=== PATIENT | female | born 1940 | race Caucasian/White ===

== ENCOUNTER 2023-04-25 12:28 | Outpatient (OUT) | payer MEDICARE, SELFPAY ==
[2023-04-25 12:56] LABS: INR 1.74; Prothrombin Time 17.9 sec (9.0-11.6)
== END 2023-04-25 12:29 ==
LOC: LAB 12:33
PROVIDERS: PCP Family Medicine; Visit Provider Family Medicine
DX: I48.91 Unspecified atrial fibrillation (principal)
CPT/HCPCS: 36415; 85610

== ENCOUNTER 2023-06-25 12:11 | Outpatient (OUT) | payer MEDICARE, SELFPAY ==
[2023-06-25 13:23] LABS: INR 1.93; Prothrombin Time 19.7 sec (9.0-11.6)
== END 2023-06-25 12:12 | disposition home or self-care (01) ==
LOC: LAB 12:16
PROVIDERS: PCP Family Medicine; Visit Provider Family Medicine
DX: I48.91 Unspecified atrial fibrillation (principal)
CPT/HCPCS: 36415; 85610

== ENCOUNTER 2023-07-25 10:02 | Outpatient (OUT) | payer MEDICARE, SELFPAY ==
[2023-07-25 11:26] LABS: INR 2.15; Prothrombin Time 21.8 sec (9.0-11.6)
== END 2023-07-25 10:03 | disposition home or self-care (01) ==
LOC: LAB 10:02
PROVIDERS: PCP Family Medicine; Visit Provider Family Medicine
DX: I48.91 Unspecified atrial fibrillation (principal)
CPT/HCPCS: 36415; 85610

== ENCOUNTER 2023-07-25 10:04 | Outpatient (OUT) | payer MEDICARE, SELFPAY ==
--- NOTE | 2023-07-25 11:09 | CA_ITS ---
Patient: FABY JUAREZ Exam Date: 07/25/2023 : 1940 Gender:F Ordering : DR JENN PRADO M.D. Admission #: [id number] Family : Order #: [id number] CLICK HERE TO VIEW EXAM ECHOCARDIOGRAM REPORT PROCEDURE: CA ECHO DOPPLER COMPLETE INDICATIONS: Pulmonary hypertension, hypertention COMPARISON: None. DESCRIPTION: COMPLETE ECHOCARDIOGRAM Real-time transthoracic echocardiography with 2D, M-mode, spectral and color flow Doppler performed. QUALITY: Technical quality was good. LEFT VENTRICLE: Normal chamber size. Thickened septal wall. D-shaped septum consistent with right ventricular pressure and/or volume overload. LV EF: Normal left ventricular ejection fraction, (>55%). DIASTOLIC: Grade III diastolic dysfunction. ATRIAL SEPTUM: Inadequately seen. LEFT ATRIUM: Severe dilatation. RIGHT ATRIUM: Severe dilatation. RIGHT VENTRICLE: Normal chamber size. Right ventricular systolic function is reduced. TRICUSPID VALVE: Normal mobility and thickness. Moderate regurgitation. Doppler studies reveal severely (>60) elevated right sided pressures. RVSP 91 mmHg MITRAL VALVE: Mildly thickened with normal mobility. No evidence of mitral valve stenosis. There is no mitral annular calcification. Mild mitral regurgitation. AORTIC VALVE: Normal trileaflet appearance. Moderately calcified aortic valve. Mildly diminished mobility. Doppler velocity suggests mild aortic valve stenosis. DVI 0.5. No aortic regurgitation. AORTIC ROOT: Normal diameter and appearance. PULMONIC VALVE: Normal thickness and mobility. No stenosis. Mild regurgitation. PERICARDIUM: No evidence of pericardial effusion. IVC: Collapses with inspirations. IVC is dilated (2.3 cm) CONCLUSION: 1. Global left ventricular systolic function is normal; visually estimated ejection fraction is 55 to 60% 2. Abnormal septal motion consistent with right ventricular pressure and/or volume overload 3. Grade 3, severe diastolic dysfunction 4. Severe biatrial enlargement 5. The right ventricle is normal in size with reduced systolic function 6. Moderate tricuspid regurgitation 7. Severely elevated right-sided pressures; RVSP is 91 mmHg 8. Mild mitral regurgitation 9. Mild aortic valve stenosis 10. Mild pulmonic regurgitation Adult Echocardiography Procedure Report Left Ventricle LVEDD (3.7 - 5.6 cm): 4.50 cm LVESD (2.2 - 4.0 cm): 3.04 cm LVIVS thickness (0.6 - 1.2 cm): 1.07 cm LVPW thickness (0.5 - 1.0 cm): 0.72 cm e': 0.12 m/s E - e': 9.60 LVOT Max Gradient: 4.18 mm[Hg] LVOT Area (cm2): 1.02 m/s Peak Velocity (LVOT): 1.02 m/s Mean Velocity (LVOT): 0.71 m/s LVOT Diameter 1.60 cm Left Atrium LA Volume Index (2D A2C): 58.47 ml/m2 Left Atrium Systolic Dimension: 5.06 cm Mitral Valve MV E to A Ratio: 2.30 Mitral Valve A-Wave Peak Velocity: 0.52 m/s Mitral Valve E-Wave Peak Velocity: 1.19 m/s Right Ventricle Aorta AO Root Diam: 2.91 cm Aortic Valve AoV Area (Peak Mark): 1.01 cm2, 1.01 cm2 AoV Area (VTI): 1.04 cm2, 1.04 cm2 Peak Velocity(Antegrade Flow): 2.03 m/s Peak Gradient(Antegrade Flow): 16.48 mm[Hg] Mean Velocity(Antegrade Flow): 1.46 m/s Mean Gradient(Antegrade Flow): 9.51 mm[Hg] Velocity Time Integral: 46.81 cm Tricuspid Valve Peak Velocity (Regurgitant Flow): 4.55 m/s, 4.15 m/s Pulmonic Valve Peak Velocity: 1.01 m/s Peak Gradient: 4.35 mm[Hg], 3.84 mm[Hg] Right Atrium Right Atrium Systolic Pressure: 72.57 ml, 72.57 ml Dictated by: Jr Montaño M.D. on 07/25/2023 at 13:09 Approved by: Jr Montaño M.D. on 07/25/2023 at 13:15
== END 2023-07-25 10:05 | disposition home or self-care (01) ==
LOC: CARD 10:04
PROVIDERS: PCP Family Medicine; Visit Provider Internal Medicine Interventional Cardiology
DX: I27.20 Pulmonary hypertension, unspecified (principal); I08.3 Combined rheumatic disorders of mitral, aortic and tricuspid valves
CPT/HCPCS: 93306

== ENCOUNTER 2023-08-28 12:24 | Outpatient (OUT) | payer MEDICARE, SELFPAY ==
[2023-08-28 12:52] LABS: INR 3.84; Prothrombin Time 37.7 sec (9.0-11.6)
== END 2023-08-28 12:25 | disposition home or self-care (01) ==
LOC: LAB 12:24
PROVIDERS: PCP Family Medicine; Visit Provider Family Medicine
DX: I48.91 Unspecified atrial fibrillation (principal)
CPT/HCPCS: 36415; 85610

== ENCOUNTER 2023-09-03 12:53 | Outpatient (OUT) | payer MEDICARE, SELFPAY ==
[2023-09-03 13:33] LABS: INR 2.11; Prothrombin Time 21.4 sec (9.0-11.6)
== END 2023-09-03 12:54 | disposition home or self-care (01) ==
PROVIDERS: PCP Family Medicine; Visit Provider Family Medicine
DX: I48.91 Unspecified atrial fibrillation (principal)
CPT/HCPCS: 36415; 85610

== ENCOUNTER 2023-10-10 13:01 | Outpatient (OUT) | payer MEDICARE, SELFPAY ==
[2023-10-10 13:15] LABS: Basophils Absolute Auto 0.1 10^3/uL (0.0-0.1); Basophils Percent Auto 0.8 % (0.2-2.0); Eosinophils Absolute Auto 0.4 10^3/uL (0.0-0.7); Eosinophils Percent Auto 5.7 % (0.9-7.0); Hematocrit 32.3 % (36.0-48.0); Hemoglobin 9.7 g/dL (12.0-16.0); Immature Granulocytes Abs Auto 0.02 10^3/uL (0.00-0.03); Immature Granulocytes Pct Auto 0.3 % (0.0-0.5); Lymphocytes Absolute Auto 1.6 10^3/uL (1.2-3.8); Lymphocytes Percent Auto 21.6 % (20.5-60.0); Mean Corpuscular Hemoglobin 24.5 pg (26.7-34.0); Mean Corpuscular Volume 81.6 fL (81.0-99.0); Mean Platelet Volume 8.4 fL (9.5-13.5); Monocytes Absolute Auto 0.7 10^3/uL (0.3-0.8); Monocytes Percent Auto 9.6 % (1.7-12.0); Neutrophils Absolute Auto 4.5 10^3/uL (1.4-6.5); Platelet Count 265 10^3/uL (150-450); Red Blood Count 3.96 10^6/uL (4.20-5.40); Red Cell Distribution Width 18.9 % (11.0-15.0); White Blood Count 7.2 10^3/uL (4.0-11.0)
[2023-10-10 13:32] LABS: Anion Gap 12.9; BUN Creatinine Ratio 12.4; Carbon Dioxide 28.1 mmol/L (21.0-32.0); Chloride 104 mmol/L (98-107); Estimated GFR (African America 31 (>=60); Estimated GFR (Non-African Ame 26 (>=60); Glucose 91 mg/dL (74-106); Sodium 141 mmol/L (136-145)
== END 2023-10-10 13:02 | disposition home or self-care (01) ==
LOC: LAB 13:02
PROVIDERS: PCP Family Medicine; Visit Provider Internal Medicine Interventional Cardiology
DX: Z01.818 Encounter for other preprocedural examination (principal); I48.91 Unspecified atrial fibrillation
CPT/HCPCS: 36415; 80048; 85025

== ENCOUNTER 2023-10-29 13:40 | Outpatient (OUT) | payer MEDICARE, SELFPAY ==
[2023-10-29 13:57] LABS: Basophils Absolute Auto 0.1 10^3/uL (0.0-0.1); Basophils Percent Auto 0.6 % (0.2-2.0); Eosinophils Absolute Auto 0.3 10^3/uL (0.0-0.7); Eosinophils Percent Auto 4.4 % (0.9-7.0); Hematocrit 33.8 % (36.0-48.0); Hemoglobin 10.1 g/dL (12.0-16.0); Immature Granulocytes Abs Auto 0.03 10^3/uL (0.00-0.03); Immature Granulocytes Pct Auto 0.4 % (0.0-0.5); Lymphocytes Absolute Auto 1.7 10^3/uL (1.2-3.8); Lymphocytes Percent Auto 21.5 % (20.5-60.0); Mean Corpuscular HGB Conc 29.9 g/dL (29.9-35.2); Mean Corpuscular Hemoglobin 24.6 pg (26.7-34.0); Mean Corpuscular Volume 82.2 fL (81.0-99.0); Mean Platelet Volume 8.6 fL (9.5-13.5); Monocytes Absolute Auto 0.8 10^3/uL (0.3-0.8); Monocytes Percent Auto 9.8 % (1.7-12.0); Neutrophils Absolute Auto 4.9 10^3/uL (1.4-6.5); Neutrophils Percent Auto 63.3 % (43.0-75.0); Platelet Count 248 10^3/uL (150-450); Red Blood Count 4.11 10^6/uL (4.20-5.40); Red Cell Distribution Width 18.6 % (11.0-15.0); White Blood Count 7.8 10^3/uL (4.0-11.0)
[2023-10-29 14:43] LABS: Anion Gap 12.8; BUN Creatinine Ratio 16.7; Calcium 9.1 mg/dL (8.5-10.1); Carbon Dioxide 28.8 mmol/L (21.0-32.0); Chloride 101 mmol/L (98-107); Estimated GFR (African America 29 (>=60); Estimated GFR (Non-African Ame 24 (>=60); Glucose 97 mg/dL (74-106); Potassium 3.6 mmol/L (3.5-5.1); Sodium 139 mmol/L (136-145)
== END 2023-10-29 13:41 | disposition home or self-care (01) ==
LOC: LAB 13:41
PROVIDERS: PCP Family Medicine
DX: I27.20 Pulmonary hypertension, unspecified (principal); I48.11 Longstanding persistent atrial fibrillation; I11.0 Hypertensive heart disease with heart failure
CPT/HCPCS: 36415; 80048; 83880; 85025

== ENCOUNTER 2023-12-05 13:59 | Outpatient (OUT) | payer MEDICARE, SELFPAY ==
--- OUTSIDE RECORDS SUMMARY | 2023-12-05 14:03 | XMS_ITS | CCD ---
Author Name Unknown Address [address] [place] [address] Organization [facility] Care Team Providers Care Animal Researcher Name Role Phone UNKNOWN, PROVIDER Attending Unavailable HOY, BRUCE Primary Care Unavailable HOY, BRUCE Referring Unavailable UNKNOWN, PROVIDER Admitting Unavailable UNKNOWN, PROVIDER Attending Unavailable HOY, BRUCE Primary Care Unavailable HOY, BRUCE Referring Unavailable UNKNOWN, PROVIDER Admitting Unavailable HOY ., DR BARRERA Consulting Unavailable HOY ., DR BARRERA Primary Care Unavailable HOY ., DR BARRERA Attending Unavailable HOY ., DR BARRERA Admitting Unavailable MOUKARBEL, DR BARAJAS Consulting Unavailable RICHMONDSIGRID RAMIREZ Consulting Unavailable HOY ., DR BARRERA Primary Care Unavailable HOY ., DR BARRERA Attending Unavailable HOY ., DR BARRERA Admitting Unavailable HOY ., DR BARRERA Consulting Unavailable HOY ., DR BARRERA Primary Care Unavailable HOY ., DR BARRERA Attending Unavailable HOY ., DR BARRERA Admitting Unavailable HOY ., DR BARRERA Consulting Unavailable HOY ., DR BARRERA Primary Care Unavailable HOY ., DR BARRERA Attending Unavailable HOY ., DR BARRERA Admitting Unavailable HOY ., DR BARRERA Consulting Unavailable HOY ., DR BARRERA Primary Care Unavailable HOY ., DR BARRERA Attending Unavailable HOY ., DR BARRERA Admitting Unavailable HOY ., DR BARRERA Consulting Unavailable HOY ., DR BARRERA Primary Care Unavailable HOY ., DR BARRERA Attending Unavailable HOY ., DR BARRERA Admitting Unavailable HOY ., DR BARRERA Consulting Unavailable HOY ., DR BARRERA Primary Care Unavailable HOY ., DR BARRERA Attending Unavailable HOY ., DR BARRERA Admcrow Unavailable MOUKARBEL, DR BARAJAS Consulting Unavailable HOY ., DR BARRERA Primary Care Unavailable MOUKARBEL, DR BARAJAS Attending Unavailable MOUKARBEL, DR BARAJAS Admitting Unavailable MOUKARBEL, DR BARAJAS Consulting Unavailable HOY ., DR BARRERA Primary Care Unavailable MOUKARBEL, DR BARAJAS Attending Unavailable MOUKARBEL, DR BARAJAS Admitting Unavailable HOY ., DR BARRERA Consulting Unavailable HOY ., DR BARRERA Primary Care Unavailable HOY ., DR BARRERA Attending Unavailable HOY ., DR BARRERA Admitting Unavailable MOUKARBEL, DR BARAJAS Consulting Unavailable HOY ., DR BARRERA Primary Care Unavailable MOUKARBEL, DR BARAJAS Attending Unavailable MOUKARBEL, DR BARAJAS Admitting Unavailable HOY ., DR BARRERA Consulting Unavailable HOY ., DR BARRERA Primary Care Unavailable HOY ., DR BARRERA Attending Unavailable HOY ., DR BARRERA Admitting Unavailable HOY ., DR BARRERA Consulting Unavailable HOY ., DR BARRERA Primary Care Unavailable HOY ., DR BARRERA Attending Unavailable HOY ., DR BARRERA Admitting Unavailable HOY ., DR BARRERA Consulting Unavailable HOY ., DR BARRERA Primary Care Unavailable HOY ., DR BARRERA Attending Unavailable HOY ., DR BARRERA Admitting Unavailable MOUKARBEL, DR BARAJAS Consulting Unavailable HOY ., DR BARRERA Primary Care Unavailable MOUKARBEL, DR BARAJAS Attending Unavailable MOUKARBEL, DR BARAJAS Admitting Unavailable MOUKARBEL, DR BARAJAS Consulting Unavailable HOY ., DR BARRERA Primary Care Unavailable MOUKARBEL, DR BARAJAS Attending Unavailable MOUKARBEL, DR BARAJAS Admitting Unavailable HOY ., DR BARRERA Consulting Unavailable HOY ., DR BARRERA Primary Care Unavailable HOY ., DR BARRERA Attending Unavailable HOY ., DR BARRERA Admcrow Unavailable HOY ., DR BARRERA Consulting Unavailable HOY ., DR BARRERA Primary Care Unavailable HOY ., DR BARRERA Attending Unavailable HOY ., DR BARRERA Admitting Unavailable HOY ., DR BARRERA Consulting Unavailable HOY ., DR BARRERA Primary Care Unavailable HOY ., DR BARRERA Attending Unavailable HOY ., DR BARRERA Admitting Unavailable SMITHANTONY Admitting Unavailable SMITHANTONY Attending Unavailable MOUKARBEL, JENN Attending Unavailable MOUKARBEL, JENN Attending Unavailable Problems Active Problems Problem Classification Problem Date Documented Da te Episodic/Chronic Cardiac dysrhythmias (5 sources) Unspecified atrial fibrillation; Translations: [UNSPECIFIED ATRIAL FIBRILLATION] Onset: 07-13-2022 Chronic Chronic kidney disease (2 sources) Chronic kidney disease; Translations: [Chronic kidney disease, stage 3b] Onset: 10-25-2022 Congestive heart failure; nonhypertensive (9 sources) Chronic diastolic (congestive) heart failure; Translations: [Acute on chronic diastolic (congestive) heart failure] Onset: 07-13-2022 Chronic Disorders of lipid metabolism (1 source) Hyperlipidemia, unspecified; Translations: [HYPERLIPIDEMIA UNSPECIFIED] Onset: 2022 Chronic Essential hypertension (2 sources) Essential (primary) hypertension; Translations: [Essential (primary) hypertension] Onset: 08-15-2022 Chronic Genitourinary congenital anomalies (1 source) Congenital multiple renal cysts; Translations: [CONGENITAL MULTIPLE RENAL CYSTS] Onset: 07-09-2022 Chronic Heart valve disorders (5 sources) Rheumatic disorders of both mitral and tricuspid valves; Translations: [Nonrheumatic mitral (valve) insufficiency] Onset: 05-09-2022 Chronic Hypertension with complications and secondary hypertension (1 source) Hypertensive heart disease with heart failure; Translations: [HTN HEART DISEASE W/HEART FAIL] Onset: 2022 Chronic Nephritis; nephrosis; renal sclerosis (1 source) Atrophy of kidney (terminal); 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] Onset: 07-09-2022 Chronic Nutritional deficiencies (1 source) Vitamin D deficiency, unspecified; Translations: [VITAMIN D DEFICIENCY UNSPECIFIED] Onset: 2022 Chronic Other and ill-defined heart disease (1 source) Cardiomegaly; Translations: [CARDIOMEGALY] Onset: 2022 Chronic Pulmonary heart disease (12 sources) Primary pulmonary hypertension; Translations: [Pulmonary hypertension, unspecified] Onset: 04-17-2022 Chronic Residual codes; unclassified (2 sources) Edema, unspecified; Translations: [Edema, unspecified] Onset: 10-22-2023 Episodic Unclassified (2 sources) Longstanding persistent atrial fibrillation; Translations: [Longstanding persistent atrial fibrillation] Onset: 08-15-2022 Past or Other Problems Problem Classification Problem Date Documented Da te Episodic/Chronic Calculus of urinary tract (1 source) Calculus of kidney; Translations: [CALCULUS OF KIDNEY] Onset: 07-09-2022 Episodic Cardiac dysrhythmias (1 source) Bradycardia, unspecified; Translations: [BRADYCARDIA UNSPECIFIED] Onset: 2022 Episodic Deficiency and other anemia (1 source) Anemia, unspecified; Translations: [ANEMIA UNSPECIFIED] Onset: 2022 Episodic Diabetes mellitus without complication (1 source) Other abnormal glucose; Translations: [OTHER ABNORMAL GLUCOSE] Onset: 2022 Episodic Malaise and fatigue (4 sources) Other fatigue; Translations: [OTHER FATIGUE] Onset: 04-16-2022 Episodic Other aftercare (4 sources) Other supervisor intermediates (current) drug therapy; Translations: [OTH RUG MEASURER CURRENT DRUG THERAPY] Onset: 06-04-2022 Episodic Other injuries and conditions due to external causes (1 source) History of falling; Translations: [HISTORY OF FALLING] Onset: 2022 Episodic Other lower respiratory disease (1 source) Shortness of breath; Translations: [SHORTNESS OF BREATH] Onset: 05-16-2022 Episodic Other screening for suspected conditions (not mental disorders or infectious disease) (5 sources) Abnormal results of kidney function studies; Translations: [Encounter for screening for malignant neoplasm of rectum] Onset: 04-17-2022 Episodic Results Test Name Value Interpretation Reference Range Facility Office Visiton 10-30-2023 Follow-up visit [id number] Inez Juarez 1940 F Date Provider Department Center 10/30/2023 JENN AMANDA BARBRA [facility] Family History Problem Relation Age of Onset Hypertension Mother Coronary artery disease Father Hypertension Father Family Status - Relation Status Age at Mother Father Level of Service:61728 [place] OFFICE/OUTPATIENT ESTABLISHED MOD MDM 30 MIN Normal [facility] HPon 10-22-2023 HP History Of Present Illness Inez Juarez is a 83 y.o. female presenting for planned RHC. diastolic heart failure, atrial fibrillation (on coumadin followed by Dr Rizvi's office) and pulmonary hypertension. She has CKD3. She was then seen in follow up in January 2021 and an echocardiogram in April 2021 showed severe pulmonary hypertension with the right-sided enlargement and ventricular dysfunction. Right heart catheterization on 06/02/2021 showed vasoreactive pulmonary hypertension. She was started on amlodipine 10 mg daily. A follow-up echocardiogram September 2021 showed severely elevated right-sided pressures. Right heart catheterization on 11/01/2021 showed moderate to severe pulmonary hypertension, normal filling pressures, preserved cardiopathy, index, significantly elevated transpulmonary gradient and pulmonary vascular resistance. TPG 28 mmHg, PVR 5.8 Wood units. PA 61/16 mean 36, pulmonary wedge pressure 8. She had a VQ scan that was negative. PFTs showed normal FEV1 over FVC, significantly reduced DLCO. At visit of 01/22/2022 I started her on sildenafil 20 mg 3 times daily. I reduced hydralazine to 25 mg 3 times daily. Blood testing was significant for elevated EVAN possibly attributed to hydralazine. Here today for further assessment with RHC. Past Medical History She has a past medical history of Atrial fibrillation (CMS/HCC), CHF (congestive heart failure) (CMS/[facility]), Chronic kidney disease, GERD (gastroesophageal reflux disease), Heart valve disease, Hyperlipidemia, Hypertension, and Pulmonary hypertension (CMS/HCC). Surgical History She has a past surgical history that includes Cardiac catheterization (Right, 11/01/2021); Cardioversion; Cardiac catheterization (Right, 06/02/2021); and Cardiac catheterization (08/23/2016). Social History She reports that she has never smoked. She has never used smokeless tobacco. She reports that she does not currently use alcohol. No history on file for drug use. Family History Family History Problem Relation Name Age of Onset Hypertension Mother Coronary artery disease Father Hypertension Father Allergies Patient has no known allergies. Medications Medications Prior to Admission Medication Sig Dispense Refill Last Dose albuterol 90 mcg/actuation inhaler 10/21/2023 alendronate (Fosamax) 70 mg tablet Take 1 tablet every week by oral route for 84 days. Past Week ALPRAZolam (Xanax) 0.25 mg tablet take 1 tablet by mouth once daily if needed 10/21/2023 amLODIPine (Norvasc) 10 mg tablet TAKE 1 TABLET DAILY 90 tablet 3 10/21/2023 aspirin 81 mg chewable tablet Chew 1 tablet every day by oral route. 10/21/2023 cholecalciferol, vitamin D3, 50 mcg (2,000 unit) capsule Take 1 capsule every day by oral route for 90 days. 10/21/2023 citalopram (CeleXA) 40 mg tablet Take 1 tablet every day by oral route for 90 days. 10/21/2023 furosemide (Lasix) 80 mg tablet TAKE 1 TABLET DAILY 90 tablet 3 10/21/2023 lansoprazole (Prevacid) [address] capsule Take 1 capsule every day by oral route for 90 days. 10/21/2023 metoprolol succinate XL (Toprol-XL) 25 mg 24 hr tablet TAKE ONE-HALF (1/2) TABLET DAILY 45 tablet 3 10/21/2023 potassium chloride CR (Klor-Con) 10 mEq ER tablet TAKE 1 TABLET BY MOUTH DAILY 90 tablet 3 10/21/2023 pravastatin (Pravachol) 20 mg tablet Take 1 tablet every day by oral route for 90 days. 10/21/2023 sacubitriL-valsartan (Entresto) 24-26 mg tablet Take 0.5 tablets by mouth in the morning and at bedtime. 10/21/2023 sildenafil (Revatio) 20 mg tablet Take 1 tablet 3 times a day by oral route for 90 days. 270 tablet 3 10/21/2023 warfarin (Coumadin) 5 mg tablet Past Week Review of Systems Cardiovascular: Positive for dyspnea on exertion and leg swelling. Negative for chest pain and palpitations Last Recorded Vitals Visit Vitals BP 160/65 Pulse 82 Resp 16 Wt 68.1 kg (150 lb 3.2 oz) SpO2 90% BMI 29.33 kg/m??? OB Status Postmenopausal Smoking Status Never BSA 1.7 m??? Physical Exam Constitutional: Appearance: She is well-developed. She is not ill-appearing. HENT: Head: Normocephalic and atraumatic. Nose: Nose normal. Cardiovascular: Rate and Rhythm: Normal rate. Rhythm irregularly irregular. Pulses: Radial pulses are 2+ on the right side and 2+ on the left side. Heart sounds: Murmur heard. Systolic (LLSB) murmur is present with a grade of 2/6. No friction rub. No gallop. Pulmonary: Effort: Pulmonary effort is normal. No respiratory distress. Breath sounds: Normal breath sounds. No wheezing or rales. Chest: Chest wall: No tenderness. Abdominal: General: Bowel sounds are normal. There is no distension. Palpations: Abdomen is soft. Tenderness: There is no abdominal tenderness. Musculoskeletal: General: No swelling. Cervical back: Neck supple. Right lower le+ Pitting Edema present. Left lower le+ Pitting Edema present. Relevant Lab Results Reviewed Relevant (more content not included)... Normal [facility] NURSNOTEon 10-22-2023 NURSNOTE RN educated pt on d/c instructions. RN encouraged pt to voice any questions or concerns. Pt verbalizes no questions or concerns at this time. Normal [facility] Office Visiton 05-20-2023 Follow-up visit [id number] Inez Juarez 1940 F Date Provider Department Center 05/20/2023 JENN AMANDA [facility] Family History Problem Relation Age of Onset Hypertension Mother Coronary artery disease Father Hypertension Father Family Status - Relation Status Age at Mother Father Level of Service:81073 [place] OFFICE/OUTPATIENT ESTABLISHED MOD MDM 30-39 MIN Reason for Visit and Comments: Shortness of Breath [425574] Fatigue [46] Follow-up [838176] Normal [facility] BNPon 03-22-2023 Natriuretic peptide B (Bld) [Mass/Vol] 1423.0 pg/mL Normal <=1,800.0 [facility] Comment on above: Performed By: #### B INTERNET MARKETING MANAGER, CMP, TSH, LIPID #### [facility] [address] [address] [address] Reji Thomas CBC AUTO DIFFon 03-22-2023 BASO # 0.1 103/ul Normal 0.0-0.1 [facility] Comment on above: Performed By: #### B MP #### [facility] [address] [address] [address] Rjei Thomas Basophils/100 WBC (Bld) 1.0 % Normal 0.2-2.0 [facility] Comment on above: Performed By: #### B MP #### [facility] [address] [address] [address] Reji Thomas EO # 0.2 103/ul Normal 0.0-0.7 [facility] Comment on above: Performed By: #### B MP #### [facility] [address] [address] [address] Reji Thomas Eosinophils/100 WBC (Bld) 3.3 % Normal 0.9-7.0 [facility] Comment on above: Performed By: #### B MP #### [facility] [address] [place] [address] Dr. Reji Thomas Erythrocyte distribution width (RBC) [Ratio] 15.4 % Critically high 11.0-15.0 [facility] Comment on above: Performed By: #### B MP #### [facility] [address] [place] [address] Dr. Reji Thomas Hematocrit (Bld) [Volume fraction] 35.2 % Critically low 36.0-48.0 [facility] Comment on above: Performed By: #### B MP #### [facility] [address] [place] [address] Dr. Reji Thomas Hemoglobin (Bld) [Mass/Vol] 11.4 g/dL Critically low 12.0-16.0 [facility] Comment on above: Performed By: #### B MP #### [facility] [address] [place] [address] Dr. Reji Thomas IG # 0.02 10e3/ul Normal 0.00-0.03 [facility] Comment on above: Performed By: #### B MP #### [facility] [address] [place] [address] Dr. Reji Thomas IG % 0.3 % Normal 0.0-0.5 [facility] Comment on above: Performed By: #### B MP #### [facility] [address] [place] [address] Dr. Reji Thomas LYMPH # 1.4 103/ul Normal 1.2-3.8 [facility] Comment on above: Performed By: #### B MP #### [facility] [address] [place] [address] Dr. Reji Thomas Lymphocytes/100 WBC (Bld) 22.6 % Normal 20.5-60.0 [facility] Comment on above: Performed By: #### B MP #### [facility] [address] [place] [address] Dr. Reji Thomas MANUAL DIFF REQ NO Normal [facility] Comment on above: Performed By: #### B MP #### [facility] [address] [place] [address] Dr. Reij Thomas MCH (RBC) [Entitic mass] 27.0 pg Normal 26.7-34.0 [facility] Comment on above: Performed By: #### B MP #### [facility] [address] [place] [address] Dr. Reji Thoams MCHC (RBC) [Mass/Vol] 32.4 g/dL Normal 29.9-35.2 [facility] Comment on above: Performed By: #### B MP #### [facility] [address] [place] [address] Dr. Reji Thomas MCV (RBC) [Entitic vol] 83.2 fL Normal 81.0-99.0 [facility] Comment on above: Performed By: #### B MP #### [facility] [address] [place] [address] Dr. Reji Thomas MONO # 0.5 103/ul Normal 0.3-0.8 [facility] Comment on above: Performed By: #### B MP #### [facility] [address] [place] [address] Dr. Reji Thomas Monocytes/100 WBC (Bld) 8.5 % Normal 1.7-12.0 [facility] Comment on above: Performed By: #### B MP #### [facility] [address] [place] [address] Dr. Reji Thomas NEUT # 4.0 103/ul Normal 1.4-6.5 [facility] Comment on above: Performed By: #### B MP #### [facility] [address] [place] [address] Dr. Reji Thomas Neutrophils/100 WBC (Bld) 64.3 % Normal 43.0-75.0 [facility] Comment on above: Performed By: #### B MP #### [facility] [address] [place] [address] Dr. Reji Thomas Platelet mean volume (Bld) [Entitic vol] 8.9 fL Critically low 9.5-13.5 [facility] Comment on above: Performed By: #### B MP #### [facility] [address] [address] [address] Reji Thomas PLT 226 103/ul Normal 150-450 [facility] Comment on above: Performed By: #### B MP #### [facility] [address] [place] [address] Dr. Reji Thomas RBC 4.23 106/ul Normal 4.20-5.40 [facility] Comment on above: Performed By: #### B MP #### [facility] [address] [place] [address] Dr. Reji Thomas WBC 6.3 103/ul Normal 4.0-11.0 [facility] Comment on above: Performed By: #### B MP #### [facility] [address] [place] [address] Dr. Reji Thomas FREE THYROXINE INDEX T7on FTI 2.40 Normal 1.30-4.50 [facility] Comment on above: Performed By: #### B INTERNET MARKETING MANAGER, CMP, TSH, LIPID #### [facility] [address] [place] [address] Dr. Reji Thomas T3U 32.0 % Normal 30.0-39.0 [facility] Comment on above: Performed By: #### B INTERNET MARKETING MANAGER, CMP, TSH, LIPID #### [facility] [address] [place] [address] Dr. Reji Thomas T4 [Mass/Vol] 7.50 ug/dL Normal 4.80-13.90 [facility] Comment on above: Performed By: #### B INTERNET MARKETING MANAGER, CMP, TSH, LIPID #### [facility] [address] [place] [address] Dr. Reji Thomas GLYCOHEMOGLOBIN A1Con 2022 ADA RECOMMENDATION SEE BELOW Normal [facility] Comment on above: Result Comment: ADA RECOMMENDED LIMIT 4.0 - 6.0 ADA THERAPEUTIC TARGET < 7.0 ACTION SUGGESTED > 7.0 Performed By: #### B INTERNET MARKETING MANAGER, CMP, TSH, LIPID #### [facility] [address] [place] [address] Dr. Reji Thomas Glucose [Mass/Vol] 97 mg/dL Normal [facility] Comment on above: Performed By: #### B INTERNET MARKETING MANAGER, CMP, TSH, LIPID #### [facility] [address] [address] [address] Reji Thomas HbA1c (Bld) [Mass fraction] 5.0 % Normal 4.5-6.2 [facility] Comment on above: Performed By: #### B INTERNET MARKETING MANAGER, CMP, TSH, LIPID #### [facility] [address] [address] [address] Reji Thomas IRONon 03-22-2023 Iron [Mass/Vol] 47.0 ug/dL Critically low 50.0-170.0 [facility] Comment on above: Performed By: #### B INTERNET MARKETING MANAGER, CMP, TSH, LIPID #### [facility] [address] [place] [address] Dr. Reji Thomas LIPID PROFILEon 03-22-2023 CHOL-HDL RATIO NORM SEE BELOW Normal [facility] Comment on above: Result Comment: 3.3 - 4.4 LOW RISK 4.4 - 7.1 AVERAGE RISK 7.1 - 11.0 MODERATE RISK >11.0 HIGH RISK Performed By: #### M G, TSH, LIPID, T7, CMP, BNP #### [facility] [address] [place] [address] Dr. Reji Thomas Cholesterol [Mass/Vol] 188 mg/dL Normal <=200 [facility] Comment on above: Performed By: #### M G, TSH, LIPID, T7, CMP, BNP #### [facility] [address] [address] [address] Reji Thmoas Cholesterol in HDL [Mass/Vol] 53 mg/dL Normal 40-60 [facility] Comment on above: Performed By: #### M G, TSH, LIPID, T7, CMP, BNP #### [facility] [address] [place] [address] Dr. Reji Thomas Cholesterol in LDL [Mass/Vol] 111.6 mg/dL Normal [facility] Comment on above: Performed By: #### M G, TSH, LIPID, T7, CMP, BNP #### [facility] [address] [place] [address] Dr. Reji Thomas Cholesterol.total/Ch olesterol in HDL [Mass ratio] 3.5 {ratio} Normal [facility] Comment on above: Performed By: #### M G, TSH, LIPID, T7, CMP, BNP #### [facility] [address] [address] [address] Reji Thomas HDL NORMAL > or = 60 mg/dl - LOW CARDIOVASCULAR RISK <40 mg/dl - HIGH CARDIOVASCULAR RISK Normal [facility] Comment on above: Performed By: #### M G, TSH, LIPID, T7, CMP, BNP #### [facility] [address] [address] [address] Reji Thomas LDL CALC NORMAL SEE BELOW Normal [facility] Comment on above: Result Comment: <100 mg/dl OPTIMAL 100 - 129 mg/dl NEAR OR ABOVE OPTIMAL 130 - 159 mg/dl BORDERLINE HIGH 160 - 189 mg/dl HIGH >190 mg/dl VERY HIGH Performed By: #### M G, TSH, LIPID, T7, CMP, BNP #### [facility] [address] [address] [address] Reji Thomas Triglyceride [Mass/Vol] 117 mg/dL Normal <=150 [facility] Comment on above: Performed By: #### M G, TSH, LIPID, T7, CMP, BNP #### [facility] [address] [address] [address] Reji Thomas VLDL CALC 23.4 mg/dL Normal [facility] Comment on above: Performed By: #### M G, TSH, LIPID, T7, CMP, BNP #### [facility] [address] [address] [address] Reji Thomas MAGNESIUMon 03-22-2023 Magnesium [Mass/Vol] 2.4 mg/dL Normal 1.8-2.4 [facility] Comment on above: Performed By: #### B INTERNET MARKETING MANAGER, CMP, TSH, LIPID #### [facility] [address] [address] [address] Reji Thomas PROF 14(COMP METB)on 023 Albumin [Mass/Vol] 3.4 g/dL Normal 3.4-5.0 [facility] Comment on above: Performed By: #### M G, TSH, LIPID, T7, CMP, BNP #### [facility] [address] [address] [address] Reji Thomas Albumin/Globulin [Mass ratio] 0.8 {ratio} Normal [facility] Comment on above: Performed By: #### M G, TSH, LIPID, T7, CMP, BNP #### [facility] [address] [place] [address] Dr. Reji Thomas ALP [Catalytic activity/Vol] 61 U/L Normal 46-116 [facility] Comment on above: Performed By: #### M G, TSH, LIPID, T7, CMP, BNP #### [facility] [address] [place] [address] Dr. Reji Thomas ALT [Catalytic activity/Vol] 15 U/L Normal 14-59 [facility] Comment on above: Performed By: #### M G, TSH, LIPID, T7, CMP, BNP #### [facility] [address] [place] [address] Dr. Reji Thomas Anion gap [Moles/Vol] 13.1 mmol/L Normal [facility] Comment on above: Performed By: #### M G, TSH, LIPID, T7, CMP, BNP #### [facility] [address] [place] [address] Dr. Reji Thomas AST [Catalytic activity/Vol] 13 U/L Critically low 15-37 [facility] Comment on above: Performed By: #### M G, TSH, LIPID, T7, CMP, BNP #### [facility] [address] [place] [address] Dr. Reji Thomas Bilirubin [Mass/Vol] 0.4 mg/dL Normal 0.2-1.0 [facility] Comment on above: Performed By: #### M G, TSH, LIPID, T7, CMP, BNP #### [facility] [address] [place] [address] Dr. Reji Thomas Calcium [Mass/Vol] 8.5 mg/dL Normal 8.5-10.1 [facility] Comment on above: Performed By: #### M G, TSH, LIPID, T7, CMP, BNP #### [facility] [address] [address] [address] Reji Thomas Chloride [Moles/Vol] 106 mmol/L Normal 98-107 [facility] Comment on above: Performed By: #### M G, TSH, LIPID, T7, CMP, BNP #### [facility] [address] [address] [address] Reji Thomas CO2 [Moles/Vol] 27.6 mmol/L Normal 21.0-32.0 [facility] Comment on above: Performed By: #### M G, TSH, LIPID, T7, CMP, BNP #### [facility] [address] [place] [address] Dr. Reji Thomas Creatinine [Mass/Vol] 2.32 mg/dL Critically high 0.55-1.02 [facility] Comment on above: Performed By: #### M G, TSH, LIPID, T7, CMP, BNP #### [facility] [address] [place] [address] Dr. Reji Thomas EGFR-AF ALGERIAN 24 mL/min/1.73m2 Critically low >=60 [facility] Comment on above: Performed By: #### M G, TSH, LIPID, T7, CMP, BNP #### [facility] [address] [place] [address] Dr. Reji Thomas EGFR-NON AF ALGERIAN 20 mL/min/1.73m2 Critically low >=60 [facility] Comment on above: Performed By: #### M G, TSH, LIPID, T7, CMP, BNP #### [facility] [address] [place] [address] Dr. Reji Thomas Globulin (S) [Mass/Vol] 4.3 g/dL Normal [facility] Comment on above: Performed By: #### M G, TSH, LIPID, T7, CMP, BNP #### [facility] [address] [place] [address] Dr. Reji Thomas Glucose [Mass/Vol] 88 mg/dL Normal 74-106 [facility] Comment on above: Performed By: #### M G, TSH, LIPID, T7, CMP, BNP #### [facility] [address] [address] [address] Reji Thomas Potassium [Moles/Vol] 4.7 mmol/L Normal 3.5-5.1 [facility] Comment on above: Performed By: #### M G, TSH, LIPID, T7, CMP, BNP #### [facility] [address] [address] [address] Reji Thomas Protein [Mass/Vol] 7.7 g/dL Normal 6.4-8.2 [facility] Comment on above: Performed By: #### M G, TSH, LIPID, T7, CMP, BNP #### [facility] [address] [place] [address] Dr. Reji Thomas Sodium [Moles/Vol] 142 mmol/L Normal 136-145 [facility] Comment on above: Performed By: #### M G, TSH, LIPID, T7, CMP, BNP #### [facility] [address] [place] [address] Dr. Reji Thomas Urea nitrogen [Mass/Vol] 38.0 mg/dL Critically high 7.0-18.0 [facility] Comment on above: Performed By: #### M G, TSH, LIPID, T7, CMP, BNP #### [facility] [address] [place] [address] Dr. Reji Thomas Urea nitrogen/Creatinine [Mass ratio] 16.4 mg/mg Normal [facility] Comment on above: Performed By: #### M G, TSH, LIPID, T7, CMP, BNP #### [facility] [address] [place] [address] Dr. Reji Thomas PROTIMEon 03-22-2023 INR Coag (PPP) [Relative time] 1.98 {INR} Normal [facility] Comment on above: Performed By: #### P T #### [facility] [address] [place] [address] Dr. Reji Thomas INR GUIDELINES SEE BELOW Normal [facility] Comment on above: Result Comment: SHY RED INR: 2.0 - 3.0 CONDITIONS NOT LISTED BELOW 2.5 - 3.5 FOR PROSTHETIC HEART VALVE REPLACEMENT 2.5 - 3.5 RECURRENT THROMBOSIS Performed By: #### P T #### [facility] [address] [place] [address] Dr. Reji Thomas PT Coag (PPP) [Time] 20.2 s Critically high 9.0-11.6 [facility] Comment on above: Performed By: #### P T #### [facility] [address] [place] [address] Dr. Reji Thomas TSHon 03-22-2023 TSH 2.265 uIU/mL Normal 0.358-3.740 [facility] Comment on above: Performed By: #### B INTERNET MARKETING MANAGER, CMP, TSH, LIPID #### [facility] [address] [place] [address] Dr. Reji Thomas VITAMIN D 25 OHon 03-22-2023 VIT D 25-OH 53.1 ng/mL Normal [facility] Comment on above: Performed By: #### B MP #### [facility] [address] [place] [address] Dr. Reji Thomas VIT D RANGES SEE BELOW Normal [facility] Comment on above: Result Comment: <20 ng/mL Vit D deficient 20 - <30 ng/mL Vit D insufficient 30 - 100 ng/mL Vit D sufficient >100 ng/mL Potential Toxicity Performed By: #### B MP #### [facility] [address] [place] [address] Dr. Reji Thomas PROTIMEon 02-22-2023 INR Coag (PPP) [Relative time] 2.22 {INR} Normal [facility] Comment on above: Performed By: #### B INTERNET MARKETING MANAGER, CMP, TSH, LIPID #### [facility] [address] [place] [address] Dr. Reji Thomas INR GUIDELINES SEE BELOW Normal [facility] Comment on above: Result Comment: SHY RED INR: 2.0 - 3.0 CONDITIONS NOT LISTED BELOW 2.5 - 3.5 FOR PROSTHETIC HEART VALVE REPLACEMENT 2.5 - 3.5 RECURRENT THROMBOSIS Performed By: #### B INTERNET MARKETING MANAGER, CMP, TSH, LIPID #### [facility] [address] [place], [place] [id number] Dr. Reji Thomas PT Coag (PPP) [Time] 22.5 s Critically high 9.0-11.6 [facility] Comment on above: Performed By: #### B INTERNET MARKETING MANAGER, CMP, TSH, LIPID #### [facility] [address] [place] [address] Dr. Reji Thomas PROTIMEon 01-03-2023 INR Coag (PPP) [Relative time] 2.53 {INR} Normal [facility] Comment on above: Performed By: #### B MP #### [facility] [address] [place] [address] Dr. Reji Thomas INR GUIDELINES SEE BELOW Normal [facility] Comment on above: Result Comment: SHY RED INR: 2.0 - 3.0 CONDITIONS NOT LISTED BELOW 2.5 - 3.5 FOR PROSTHETIC HEART VALVE REPLACEMENT 2.5 - 3.5 RECURRENT THROMBOSIS Performed By: #### B MP #### [facility] [address] [place] [address] Dr. Reji Thomas PT Coag (PPP) [Time] 25.4 s Critically high 9.0-11.6 [facility] Comment on above: Performed By: #### B MP #### [facility] [address] [place] [address] Dr. Reji Thomas PROTIMEon 11-23-2022 INR Coag (PPP) [Relative time] 1.71 {INR} Normal [facility] Comment on above: Performed By: #### B INTERNET MARKETING MANAGER, CMP, TSH, LIPID #### [facility] [address] [place] [address] Dr. Reji Thomas INR GUIDELINES SEE BELOW Normal [facility] Comment on above: Result Comment: SHY RED INR: 2.0 - 3.0 CONDITIONS NOT LISTED BELOW 2.5 - 3.5 FOR PROSTHETIC HEART VALVE REPLACEMENT 2.5 - 3.5 RECURRENT THROMBOSIS Performed By: #### B INTERNET MARKETING MANAGER, CMP, TSH, LIPID #### [facility] [address] [place] [address] Dr. Reji Thomas PT Coag (PPP) [Time] 17.6 s Critically high 9.0-11.6 [facility] Comment on above: Performed By: #### B INTERNET MARKETING MANAGER, CMP, TSH, LIPID #### [facility] [address] [place] [address] Dr. Reji Thomas PROTIMEon 10-10-2022 INR Coag (PPP) [Relative time] 2.52 {INR} Normal [facility] Comment on above: Performed By: #### B INTERNET MARKETING MANAGER, CMP, TSH, LIPID #### [facility] [address] [place] [address] Dr. Reji Thomas INR GUIDELINES SEE BELOW Normal [facility] Comment on above: Result Comment: SHY RED INR: 2.0 - 3.0 CONDITIONS NOT LISTED BELOW 2.5 - 3.5 FOR PROSTHETIC HEART VALVE REPLACEMENT 2.5 - 3.5 RECURRENT THROMBOSIS Performed By: #### B INTERNET MARKETING MANAGER, CMP, TSH, LIPID #### [facility] [address] [place] [address] Dr. Reji Thomas PT Coag (PPP) [Time] 25.6 s Critically high 9.0-11.6 [facility] Comment on above: Performed By: #### B INTERNET MARKETING MANAGER, CMP, TSH, LIPID #### [facility] [address] [place] [address] Dr. Reji Thomas PROTIMEon 09-05-2022 INR Coag (PPP) [Relative time] 2.03 {INR} Normal [facility] Comment on above: Performed By: #### B INTERNET MARKETING MANAGER, CMP, TSH, LIPID #### [facility] [address] [place] [address] Dr. Reji Thomas INR GUIDELINES SEE BELOW Normal [facility] Comment on above: Result Comment: SHY RED INR: 2.0 - 3.0 CONDITIONS NOT LISTED BELOW 2.5 - 3.5 FOR PROSTHETIC HEART VALVE REPLACEMENT 2.5 - 3.5 RECURRENT THROMBOSIS Performed By: #### B INTERNET MARKETING MANAGER, CMP, TSH, LIPID #### [facility] [address] [place] [address] Dr. Reji Thomas PT Coag (PPP) [Time] 20.9 s Critically high 9.0-11.6 [facility] Comment on above: Performed By: #### B INTERNET MARKETING MANAGER, CMP, TSH, LIPID #### [facility] [address] [place] [address] Dr. Reji Thomas BNPon 08-10-2022 Natriuretic peptide B (Bld) [Mass/Vol] 1162.0 pg/mL Normal <=1,800.0 [facility] Comment on above: Performed By: #### B MP, BNP #### [facility] [address] [place] [address] Dr. Reji Thomas PROF CHEM 8 (BAS METB)on Anion gap [Moles/Vol] 11.3 mmol/L Normal [facility] Comment on above: Performed By: #### B MP, BNP #### [facility] [address] [place] [address] Dr. Reji Thomas Calcium [Mass/Vol] 8.9 mg/dL Normal 8.5-10.1 [facility] Comment on above: Performed By: #### B MP, BNP #### [facility] [address] [place] [address] Dr. Reji Thomas Chloride [Moles/Vol] 103 mmol/L Normal 98-107 [facility] Comment on above: Performed By: #### B MP, BNP #### [facility] [address] [place] [address] Dr. Reji Thomas CO2 [Moles/Vol] 28.2 mmol/L Normal 21.0-32.0 [facility] Comment on above: Performed By: #### B MP, BNP #### [facility] [address] [place] [address] Dr. Reji Thomas Creatinine [Mass/Vol] 2.07 mg/dL Critically high 0.55-1.02 [facility] Comment on above: Performed By: #### B MP, BNP #### [facility] [address] [place] [address] Dr. Reji Thomas EGFR-AF ALGERIAN 28 mL/min/1.73m2 Critically low >=60 [facility] Comment on above: Performed By: #### B MP, BNP #### [facility] [address] [place] [address] Dr. Reji Thomas EGFR-NON AF ALGERIAN 23 mL/min/1.73m2 Critically low >=60 [facility] Comment on above: Performed By: #### B MP, BNP #### [facility] [address] [address] [address] Reji Thomas Glucose [Mass/Vol] 88 mg/dL Normal 74-106 [facility] Comment on above: Performed By: #### B MP, BNP #### [facility] [address] [address] [address] Reji Thomas Potassium [Moles/Vol] 4.5 mmol/L Normal 3.5-5.1 [facility] Comment on above: Performed By: #### B MP, BNP #### [facility] [address] [place] [address] Dr. Reji Thomas Sodium [Moles/Vol] 138 mmol/L Normal 136-145 [facility] Comment on above: Performed By: #### B MP, BNP #### [facility] [address] [place] [address] Dr. Reji Thomas Urea nitrogen [Mass/Vol] 35.0 mg/dL Critically high 7.0-18.0 [facility] Comment on above: Performed By: #### B MP, BNP #### [facility] [address] [place] [address] Dr. Reji Thomas Urea nitrogen/Creatinine [Mass ratio] 16.9 mg/mg Normal [facility] Comment on above: Performed By: #### B MP, BNP #### [facility] [address] [place] [address] Dr. Reji Thomas PROTIMEon 08-09-2022 INR Coag (PPP) [Relative time] 2.04 {INR} Normal [facility] Comment on above: Performed By: #### B INTERNET MARKETING MANAGER, CMP, TSH, LIPID #### [facility] [address] [place] [address] Dr. Reji Thomas INR GUIDELINES SEE BELOW Normal [facility] Comment on above: Result Comment: SHY RED INR: 2.0 - 3.0 CONDITIONS NOT LISTED BELOW 2.5 - 3.5 FOR PROSTHETIC HEART VALVE REPLACEMENT 2.5 - 3.5 RECURRENT THROMBOSIS Performed By: #### B INTERNET MARKETING MANAGER, CMP, TSH, LIPID #### [facility] [address] [place] [address] Dr. Reji Thomas PT Coag (PPP) [Time] 21.0 s Critically high 9.0-11.6 [facility] Comment on above: Performed By: #### B INTERNET MARKETING MANAGER, CMP, TSH, LIPID #### [facility] [address] [place] [address] Dr. Reji Thomas BNPon 07-09-2022 Natriuretic peptide B (Bld) [Mass/Vol] 2085.0 pg/mL Critically high <=1,800.0 [facility] Comment on above: Result Comment: CRIT ICAL CALLED TO OFFICE ON 07-10-22 AT 0850 BY AR Performed By: #### B INTERNET MARKETING MANAGER, CMP, TSH, LIPID #### [facility] [address] [place] [address] Dr. Reji Thomas PROF CHEM 8 (BAS METB)on Anion gap [Moles/Vol] 13.7 mmol/L Normal [facility] Comment on above: Performed By: #### B INTERNET MARKETING MANAGER, CMP, TSH, LIPID #### [facility] [address] [place] [address] Dr. Reji Thomas Calcium [Mass/Vol] 8.3 mg/dL Critically low 8.5-10.1 [facility] Comment on above: Performed By: #### B INTERNET MARKETING MANAGER, CMP, TSH, LIPID #### [facility] [address] [place] [address] Dr. Reji Thomas Chloride [Moles/Vol] 104 mmol/L Normal 98-107 [facility] Comment on above: Performed By: #### B INTERNET MARKETING MANAGER, CMP, TSH, LIPID #### [facility] [address] [place] [address] Dr. Reji Thomas CO2 [Moles/Vol] 26.6 mmol/L Normal 21.0-32.0 [facility] Comment on above: Performed By: #### B INTERNET MARKETING MANAGER, CMP, TSH, LIPID #### [facility] [address] [address] [address] Reji Thomas Creatinine [Mass/Vol] 1.98 mg/dL Critically high 0.55-1.02 [facility] Comment on above: Performed By: #### B INTERNET MARKETING MANAGER, CMP, TSH, LIPID #### [facility] [address] [address] [address] Reji Thomas EGFR-AF ALGERIAN 29 mL/min/1.73m2 Critically low >=60 [facility] Comment on above: Performed By: #### B INTERNET MARKETING MANAGER, CMP, TSH, LIPID #### [facility] [address] [address] [address] Reji Thomas EGFR-NON AF ALGERIAN 24 mL/min/1.73m2 Critically low >=60 [facility] Comment on above: Performed By: #### B INTERNET MARKETING MANAGER, CMP, TSH, LIPID #### [facility] [address] [place] [address] Dr. Reji Thomas Glucose [Mass/Vol] 116 mg/dL Critically high 74-[address] [facility] Comment on above: Performed By: #### B INTERNET MARKETING MANAGER, CMP, TSH, LIPID #### [facility] [address] [address] [address] Reji Thomas Potassium [Moles/Vol] 4.3 mmol/L Normal 3.5-5.1 [facility] Comment on above: Performed By: #### B INTERNET MARKETING MANAGER, CMP, TSH, LIPID #### [facility] [address] [address] [address] Reji Thomas Sodium [Moles/Vol] 140 mmol/L Normal 136-145 [facility] Comment on above: Performed By: #### B INTERNET MARKETING MANAGER, CMP, TSH, LIPID #### [facility] [address] [address] [address] Reji Thomas Urea nitrogen [Mass/Vol] 35.0 mg/dL Critically high 7.0-18.0 [facility] Comment on above: Performed By: #### B INTERNET MARKETING MANAGER, CMP, TSH, LIPID #### [facility] [address] [address] [address] Reji Thomas Urea nitrogen/Creatinine [Mass ratio] 17.7 mg/mg Normal [facility] Comment on above: Performed By: #### B INTERNET MARKETING MANAGER, CMP, TSH, LIPID #### [facility] [address] [address] [address] Reji Thomas PROTIMEon 07-09-2022 INR Coag (PPP) [Relative time] 2.99 {INR} Normal [facility] Comment on above: Performed By: #### B INTERNET MARKETING MANAGER, CMP, TSH, LIPID #### [facility] [address] [address] [address] Reji Thomas INR GUIDELINES SEE BELOW Normal [facility] Comment on above: Result Comment: SHY RED INR: 2.0 - 3.0 CONDITIONS NOT LISTED BELOW 2.5 - 3.5 FOR PROSTHETIC HEART VALVE REPLACEMENT 2.5 - 3.5 RECURRENT THROMBOSIS Performed By: #### B INTERNET MARKETING MANAGER, CMP, TSH, LIPID #### [facility] [address] [address] [address] Reji Thomas PT Coag (PPP) [Time] 30.1 s Critically high 9.0-11.6 [facility] Comment on above: Performed By: #### B INTERNET MARKETING MANAGER, CMP, TSH, LIPID #### [facility] [address] [address] [address] Reji Thomas US KIDNEYSon 07-06-2022 US KIDNEYS Ultrasound kidneys, bilateral HISTORY: Elevated liver function and abnormal renal function. COMPARISON: None. TECHNIQUE: Transabdominal ultrasound imaging of both kidneys was performed. FINDINGS: Kidneys are mildly echogenic with cortical thinning. The right kidney measures 8.6 x 4.0 x 4.5 cm. There are several anechoic avascular structures compatible with cysts, largest is 2.1 x 1.5 cm. Small hyperechoic structure with twinkle artifact is a nonobstructing stone measuring 4 mm. There is no hydronephrosis of right kidney. The left kidney measures 7.9 x 3.5 x 4.3 cm. There are several cysts, largest is at the upper pole measuring 3.3 x 3.2 x 2.7 cm. No hydronephrosis of left kidney. The bladder is moderately distended with prevoid bladder volume of 217 mL. Limited evaluation of bladder. IMPRESSION: 1. Mildly atrophic and echogenic kidneys with cortical thinning, reflective of chronic intrinsic renal disease. No hydronephrosis. 2. Small renal cysts bilaterally, largest cyst is in the left kidney at 3.3 cm. 3. Nonobstructing 4 mm right renal stone. Electronically authenticated by: SIGRID RICHMOND Date: 2022-07-06 13:31 Normal [facility] EVAN Antinuclear Antibodieson 06-19-2022 Antinuclear Abs, IFA Positive Critically abnormal . [facility] Comment on above: Result Comment: Nega tive <1:80 Borderline 1:80 Positive >1:80 Performed By: #### C UU, ADDONUAPLUS #### [facility] [address] [place] [address] #### C3, C4, CH50 #### [facility] , Homogeneous Pattern 1:320 High . [facility] Comment on above: Result Comment: ICAP nomenclature: [id number] Performed By: #### C UU, ADDONUAPLUS #### [facility] [address] [place] [address] #### C3, C4, CH50 #### [facility] , Note 1 Normal . [facility] Comment on above: Result Comment: For more information about Hep-2 cell patterns use ANApatterns.org, the official website for the International Consensus on Antinuclear Antibody (EVAN) Patterns (ICAP). A positive EVAN result may occur in healthy individuals (low titer) or be associated with a variety of diseases. See interpretation chart which is not all inclusive: Pattern Antigen Detected Suggested Disease Association Homogeneous DNA(ds,ss), SLE - High titers Nucleosomes, Histones Drug-induced SLE Speckled Sm, WOOD TURNER, SCL-70, SLE,MCTD,PSS (diffuse form), SS-A/SS-B Sjogrens Nucleolar SCL-70, PM-1/SCL High titers Scleroderma, PM/DM Centromere Centromere PSS (limited form) w/Crest syndrome variable Nuclear Dot [id number] Primary Biliary Cirrhosis Nuclear GP210, Primary Biliary Cirrhosis Membrane eleonora A,B,C Performed at: - [facility] [id number] Otm Consultant: Demarcus Lawton PhD, Phone: [phone] Performed By: #### MIKY GOMEZ #### [address] [address] [facility] #### C3, C4, CH50 #### [facility] , Anti-RNPon 06-19-2022 Anti-WOOD TURNER 0.4 Normal 0.0-0.9 [facility] Comment on above: Result Comment: Perf ormed at: [address] [id number] Otm Consultant: Demarcus Lawton PhD, Phone: [phone] Performed By: #### C UU, ADDONUAPLUS #### [address] #### C3, C4, CH50 #### [facility] , C-Reactive Proteinon 022 C-Reactive Protein 2.0 mg/dL High 0.0-1.0 [facility] Comment on above: Result Comment: PERF ORMED BY: [place] [address] PATHOLOGIST DISASTER RECOVERY SPECIALIST RADHA BULLARD M.D. Performed By: #### C UU, ADDONUAPLUS #### [address] #### C3, C4, CH50 #### [facility] , Complement C3on 06-19-2022 Complement C3 167 mg/dL Normal 82-167 [facility] Comment on above: Result Comment: Perf ormed at: [address] [id number] Otm Consultant: Demarcus Lawton PhD, Phone: [phone] Performed By: #### C UU, ADDONUAPLUS #### [address] #### C3, C4, CH50 #### [facility] , Complement C4on 06-19-2022 Complement C4 37 mg/dL Normal 12-38 [facility] Comment on above: Performed By: #### C UU, ADDONUAPLUS #### [address] [id number] [place] #### C3, C4, CH50 #### [facility] , Complement Total (CH50)on Complement Total (CH50) >60 Normal >41 [facility] Comment on above: Result Comment: Age Male Female 1 - 30 days Not Estab. Not Estab. 31 days - 6 months >32 >20 7 months - 17 years >39 >39 >17 years >41 >41 NOTE: The adult ( >17 years ) reference interval range is used to flag abnormals on this report. If the patient is 17 years old or younger, use the table above to determine out of range values. Performed at: [facility] [id number] Otm Consultant: Demarcus Lawton PhD, Phone: [phone] PERFORMED BY: [place] [address] PATHOLOGIST DISASTER RECOVERY SPECIALIST RADHA BULLARD M.D. Performed By: #### C UU, ADDONUAPLUS #### [address] #### C3, C4, CH50 #### [facility] , Complete Blood Count Auto Di ffon 06-19-2022 Basophils (Bld) [#/Vol] 0.1 10*3/uL Normal 0.0-0.2 [facility] Comment on above: Performed By: #### H EPATIC, CBC, ESR, CRP, CREAT, CK #### [place] [address] [place] #### RNA POLYMR, ANTI TH TO, EVAN, U3 WOOD TURNER, ANTIR, PM-SCL ABS #### [facility] , Basophils/100 WBC (Bld) 0.9 % Normal . [facility] Comment on above: Performed By: #### H EPATIC, CBC, ESR, CRP, CREAT, CK #### [place], [place] [address] [place] #### RNA POLYMR, ANTI TH TO, EVAN, U3 WOOD TURNER, ANTIR, PM-SCL ABS #### [facility] , Eosinophils (Bld) [#/Vol] 0.5 10*3/uL High 0.0-0.45 [facility] Comment on above: Performed By: #### H EPATIC, CBC, ESR, CRP, CREAT, CK #### [place] [address] [place] #### RNA POLYMR, ANTI TH TO, EVAN, U3 WOOD TURNER, ANTIR, PM-SCL ABS #### [facility] , Eosinophils/100 WBC (Bld) 8.6 % Normal . [facility] Comment on above: Performed By: #### H EPATIC, CBC, ESR, CRP, CREAT, CK #### [place] [address] [place] #### RNA POLYMR, ANTI TH TO, EVAN, U3 WOOD TURNER, ANTIR, PM-SCL ABS #### [facility] , Erythrocyte distribution width (RBC) [Ratio] 19.6 % High 11.9-15.3 [facility] Comment on above: Performed By: #### H EPATIC, CBC, ESR, CRP, CREAT, CK #### [place] [address] [place] #### RNA POLYMR, ANTI TH TO, EVAN, U3 WOOD TURNER, ANTIR, PM-SCL ABS #### [facility] , Hematocrit (Bld) [Volume fraction] 33.8 % Low 34.0-46.4 [facility] Comment on above: Performed By: #### H EPATIC, CBC, ESR, CRP, CREAT, CK #### [facility] [address] [place] [address] [place] #### RNA POLYMR, ANTI TH TO, EVAN, U3 WOOD TURNER, ANTIR, PM-SCL ABS #### [facility] , Hemoglobin (Bld) [Mass/Vol] 10.9 g/dL Low 11.8-15.4 [facility] Comment on above: Performed By: #### H EPATIC, CBC, ESR, CRP, CREAT, CK #### [place] [address] [place] #### RNA POLYMR, ANTI TH TO, EVAN, U3 WOOD TURNER, ANTIR, PM-SCL ABS #### [facility] , Lymphocytes (Bld) [#/Vol] 1.1 10*3/uL Normal 1.00-4.8 [facility] Comment on above: Performed By: #### H EPATIC, CBC, ESR, CRP, CREAT, CK #### [place] [address] [place] #### RNA POLYMR, ANTI TH TO, EVAN, U3 WOOD TURNER, ANTIR, PM-SCL ABS #### [facility] , Lymphocytes/100 WBC (Bld) 17.8 % Normal . [facility] Comment on above: Performed By: #### H EPATIC, CBC, ESR, CRP, CREAT, CK #### [place] [address] [place] #### RNA POLYMR, ANTI TH TO, EVAN, U3 WOOD TURNER, ANTIR, PM-SCL ABS #### [facility] , MCH (RBC) [Entitic mass] 26.4 pg Normal 24.7-34.3 [facility] Comment on above: Performed By: #### H EPATIC, CBC, ESR, CRP, CREAT, CK #### [place] [address] [place] #### RNA POLYMR, ANTI TH TO, EVAN, U3 WOOD TURNER, ANTIR, PM-SCL ABS #### [facility] , MCV (RBC) [Entitic vol] 81.8 fL Normal 80-100 [facility] Comment on above: Performed By: #### H EPATIC, CBC, ESR, CRP, CREAT, CK #### [place] [address] [place] #### RNA POLYMR, ANTI TH TO, EVAN, U3 WOOD TURNER, ANTIR, PM-SCL ABS #### [facility] , Mean Corpuscular HGB Conc 32.3 g/dL Normal 32.0-35.0 [facility] Comment on above: Performed By: #### H EPATIC, CBC, ESR, CRP, CREAT, CK #### [facility] [address] [place] [address] #### RNA POLYMR, ANTI TH TO, EVAN, U3 WOOD TURNER, ANTIR, PM-SCL ABS #### [facility] , Monocytes (Bld) [#/Vol] 0.4 10*3/uL Normal 0.0-0.8 [facility] Comment on above: Performed By: #### H EPATIC, CBC, ESR, CRP, CREAT, CK #### [address] #### RNA POLYMR, ANTI TH TO, EVAN, U3 WOOD TURNER, ANTIR, PM-SCL ABS #### [facility] , Monocytes/100 WBC (Bld) 7.4 % Normal . [facility] Comment on above: Performed By: #### H EPATIC, CBC, ESR, CRP, CREAT, CK #### [place] [address] [place] #### RNA POLYMR, ANTI TH TO, EVAN, U3 WOOD TURNER, ANTIR, PM-SCL ABS #### [facility] , Neutrophils (Bld) [#/Vol] 3.9 10*3/uL Normal 1.8-7.7 [facility] Comment on above: Performed By: #### H EPATIC, CBC, ESR, CRP, CREAT, CK #### [facility] [address] [place] [address] [place] #### RNA POLYMR, ANTI TH TO, EVAN, U3 WOOD TURNER, ANTIR, PM-SCL ABS #### [facility] , Neutrophils/100 WBC (Bld) 65.3 % Normal . [facility] Comment on above: Performed By: #### H EPATIC, CBC, ESR, CRP, CREAT, CK #### [facility] [address] [place] [address] [place] #### RNA POLYMR, ANTI TH TO, EVAN, U3 WOOD TURNER, ANTIR, PM-SCL ABS #### [facility] , Nucleated RBC/100 WBC (Bld) [Ratio] 0.0 % Normal 0-0.5 [facility] Comment on above: Performed By: #### H EPATIC, CBC, ESR, CRP, CREAT, CK #### [place] [address] [place] #### RNA POLYMR, ANTI TH TO, EVAN, U3 WOOD TURNER, ANTIR, PM-SCL ABS #### [facility] , Platelet mean volume (Bld) [Entitic vol] 7.2 fL Normal 6.3-10.7 [facility] Comment on above: Performed By: #### H EPATIC, CBC, ESR, CRP, CREAT, CK #### [place] [address] [place] #### RNA POLYMR, ANTI TH TO, EVAN, U3 WOOD TURNER, ANTIR, PM-SCL ABS #### [facility] , Platelets (Bld) [#/Vol] 237 10*3/uL Normal 150-450 [facility] Comment on above: Performed By: #### H EPATIC, CBC, ESR, CRP, CREAT, CK #### [facility] [address] [place] [address] [place] #### RNA POLYMR, ANTI TH TO, EVAN, U3 WOOD TURNER, ANTIR, PM-SCL ABS #### [facility] , RBC (Bld) [#/Vol] 4.14 10*6/uL Normal 3.60-5.00 [facility] Comment on above: Performed By: #### H EPATIC, CBC, ESR, CRP, CREAT, CK #### [place] [address] [place] #### RNA POLYMR, ANTI TH TO, EVAN, U3 WOOD TURNER, ANTIR, PM-SCL ABS #### [facility] , WBC (Bld) [#/Vol] 6.0 10*3/uL Normal 4.5-11.0 [facility] Comment on above: Performed By: #### H EPATIC, CBC, ESR, CRP, CREAT, CK #### [facility] [address] [place] [address] #### RNA POLYMR, ANTI TH TO, EVAN, U3 WOOD TURNER, ANTIR, PM-SCL ABS #### [facility] , Creatine Kinaseon 06-19-2022 CK [Catalytic activity/Vol] 38 U/L Normal 22-269 [facility] Comment on above: Result Comment: PERF ORMED BY: [place] [address] PATHOLOGIST DISASTER RECOVERY SPECIALIST RADHA BULLARD M.D. Performed By: #### H EPATIC, CBC, ESR, CRP, CREAT, CK #### [address] #### RNA POLYMR, ANTI TH TO, EVAN, U3 WOOD TURNER, ANTIR, PM-SCL ABS #### [facility] , Creatinineon 06-19-2022 Creatinine [Mass/Vol] 2.82 mg/dL High 0.44-1.03 [facility] Comment on above: Performed By: #### H EPATIC, CBC, ESR, CRP, CREAT, CK #### [address] #### RNA POLYMR, ANTI TH TO, EVAN, U3 WOOD TURNER, ANTIR, PM-SCL ABS #### [facility] , Estimated GFR ( Oralia 19 Normal [facility] Comment on above: Result Comment: GFR estimated reference range: According to KDOQI guidelines, <60 ml/min/1.73m2 is sufficient to diagnose a patient with chronic kidney disease. Performed By: #### H EPATIC, CBC, ESR, CRP, CREAT, CK #### [address] [place] [address] [place] #### RNA POLYMR, ANTI TH TO, EVAN, U3 WOOD TURNER, ANTIR, PM-SCL ABS #### [facility] , Estimated GFR (Non- Am 16 Normal [facility] Comment on above: Performed By: #### H EPATIC, CBC, ESR, CRP, CREAT, CK #### [facility] [address] [place] [address] #### RNA POLYMR, ANTI TH TO, EVAN, U3 WOOD TURNER, ANTIR, PM-SCL ABS #### [facility] , Dipstick and Microscopicon 0 06-19-2022 Appearance (U) Cloudy Critically abnormal Clear [facility] Comment on above: Order Comment: Name Collection Type:: Clean-Voided Midstream Performed By: #### C UU, ADDONUAPLUS #### [facility] [address] [place] [address] #### C3, C4, CH50 #### [facility] , Bacteria,Urine 1+ High None Seen [facility] Comment on above: Order Comment: Name Collection Type:: Clean-Voided Midstream Performed By: #### C UU, ADDONUAPLUS #### [address] #### C3, C4, CH50 #### [facility] , Bilirubin,Urine Negative Normal Negative [facility] Comment on above: Order Comment: Name Collection Type:: Clean-Voided Midstream Performed By: #### C UU, ADDONUAPLUS #### [address] #### C3, C4, CH50 #### [facility] , Color (U) Yellow Normal Yellow [facility] Comment on above: Order Comment: Name Collection Type:: Clean-Voided Midstream Performed By: #### C UU, ADDONUAPLUS #### [place] [address] [place] #### C3, C4, CH50 #### [facility] , Glucose Ql (U) Normal Normal Normal [facility] Comment on above: Order Comment: Name Collection Type:: Clean-Voided Midstream Performed By: #### C UU, ADDONUAPLUS #### [address] #### C3, C4, CH50 #### [facility] , Hyaline Casts,Urine 1-2 Normal 0-8 [facility] Comment on above: Order Comment: Name Collection Type:: Clean-Voided Midstream Result Comment: PERF ORMED BY: [place] [address] PATHOLOGIST DISASTER RECOVERY SPECIALIST RADHA BULLARD M.D. Performed By: #### C UU, ADDONUAPLUS #### [address] #### C3, C4, CH50 #### [facility] , Ketones Ql (U) Negative Normal Negative [facility] Comment on above: Order Comment: Name Collection Type:: Clean-Voided Midstream Performed By: #### C UU, ADDONUAPLUS #### [address] #### C3, C4, CH50 #### [facility] , Leukocyte esterase Test strip Ql (U) 4+ High Negative [facility] Comment on above: Order Comment: Name Collection Type:: Clean-Voided Midstream Performed By: #### C UU, ADDONUAPLUS #### [facility] [address] [place] [address] #### C3, C4, CH50 #### [facility] , Nitrite,Urine Negative Normal Negative [facility] Comment on above: Order Comment: Name Collection Type:: Clean-Voided Midstream Performed By: #### C UU, ADDONUAPLUS #### [address] [place] [address] [place] #### C3, C4, CH50 #### [facility] , Occult Blood,Urine 1+ High Negative [facility] Comment on above: Order Comment: Name Collection Type:: Clean-Voided Midstream Performed By: #### C UU, ADDONUAPLUS #### [address] #### C3, C4, CH50 #### [facility] , pH (U) 6.5 [pH] Normal 5.0-9.0 [facility] Comment on above: Order Comment: Name Collection Type:: Clean-Voided Midstream Performed By: #### C UU, ADDONUAPLUS #### [address] #### C3, C4, CH50 #### [facility] , Protein,Urine Trace High Negative [facility] Comment on above: Order Comment: Name Collection Type:: Clean-Voided Midstream Performed By: #### C UU, ADDONUAPLUS #### [address] #### C3, C4, CH50 #### [facility] , RBC,Urine 1-2 Normal 0-4 [facility] Comment on above: Order Comment: Name Collection Type:: Clean-Voided Midstream Performed By: #### C UU, ADDONUAPLUS #### [address] #### C3, C4, CH50 #### [facility] , Specificy [place],Urine 1.010 Normal 1.001-1.030 [facility] Comment on above: Order Comment: Name Collection Type:: Clean-Voided Midstream Performed By: #### C UU, ADDONUAPLUS #### [address] #### C3, C4, CH50 #### [facility] , Squamous Epithelial Cell,Urine 5-9 High 0-2 [facility] Comment on above: Order Comment: Name Collection Type:: Clean-Voided Midstream Performed By: #### C UU, ADDONUAPLUS #### [facility] [address] [place] [address] #### C3, C4, CH50 #### [facility] , Urobilinogen,Urine Normal Normal Normal [facility] Comment on above: Order Comment: Name Collection Type:: Clean-Voided Midstream Performed By: #### C UU, ADDONUAPLUS #### [facility] [address] [place] [address] #### C3, C4, CH50 #### [facility] , WBC,Urine Innumerable High 0-4 [facility] Comment on above: Order Comment: Name Collection Type:: Clean-Voided Midstream Performed By: #### C UU, ADDONUAPLUS #### [facility] [address] [place] [address] #### C3, C4, CH50 #### [facility] , Erythrocyte Sedimentation Ra pratik 06-19-2022 ESR (Bld) [Velocity] 57 mm/h High 0-29 [facility] Comment on above: Result Comment: PERF ORMED BY: [place] [address] PATHOLOGIST DISASTER RECOVERY SPECIALIST RADHA BULLARD M.D. Performed By: #### H EPATIC, CBC, ESR, CRP, CREAT, CK #### [facility] [address] [place] [address] #### RNA POLYMR, ANTI TH TO, EVAN, U3 WOOD TURNER, ANTIR, PM-SCL ABS #### [facility] , Hepatic Panelon 06-19-2022 Albumin [Mass/Vol] 3.6 g/dL Normal 3.2-5.5 [facility] Comment on above: Performed By: #### H EPATIC, CBC, ESR, CRP, CREAT, CK #### [place] [address] [place] #### RNA POLYMR, ANTI TH TO, EVAN, U3 WOOD TURNER, ANTIR, PM-SCL ABS #### [facility] , Albumin/Globulin [Mass ratio] 1.0 {ratio} Normal [facility] Comment on above: Performed By: #### H EPATIC, CBC, ESR, CRP, CREAT, CK #### [address] #### RNA POLYMR, ANTI TH TO, EVAN, U3 WOOD TURNER, ANTIR, PM-SCL ABS #### [facility] , ALP [Catalytic activity/Vol] 68 U/L Normal 32- [facility] Comment on above: Performed By: #### H EPATIC, CBC, ESR, CRP, CREAT, CK #### [place] [address] [place] #### RNA POLYMR, ANTI TH TO, EVAN, U3 WOOD TURNER, ANTIR, PM-SCL ABS #### [facility] , ALT [Catalytic activity/Vol] 9 U/L Low 10-60 [facility] Comment on above: Performed By: #### H EPATIC, CBC, ESR, CRP, CREAT, CK #### [place] [address] [place] #### RNA POLYMR, ANTI TH TO, EVAN, U3 WOOD TURNER, ANTIR, PM-SCL ABS #### [facility] , AST [Catalytic activity/Vol] 15 U/L Normal 10- [facility] Comment on above: Performed By: #### H EPATIC, CBC, ESR, CRP, CREAT, CK #### [place] [address] [place] #### RNA POLYMR, ANTI TH TO, EVAN, U3 WOOD TURNER, ANTIR, PM-SCL ABS #### [facility] , Bilirubin [Mass/Vol] 0.6 mg/dL Normal 0.3-1.2 [facility] Comment on above: Performed By: #### H EPATIC, CBC, ESR, CRP, CREAT, CK #### [place] [address] [place] #### RNA POLYMR, ANTI TH TO, EVAN, U3 WOOD TURNER, ANTIR, PM-SCL ABS #### [facility] , Bilirubin,Indirect 0.4 mg/dL Normal [facility] Comment on above: Performed By: #### H EPATIC, CBC, ESR, CRP, CREAT, CK #### [place] [address] [place] #### RNA POLYMR, ANTI TH TO, EVAN, U3 WOOD TURNER, ANTIR, PM-SCL ABS #### [facility] , Bilirubin.indirect [Mass/Vol] 0.2 mg/dL Normal 0.0-0.4 [facility] Comment on above: Performed By: #### H EPATIC, CBC, ESR, CRP, CREAT, CK #### [place] [address] [place] #### RNA POLYMR, ANTI TH TO, EVAN, U3 WOOD TURNER, ANTIR, PM-SCL ABS #### [facility] , Globulin (S) [Mass/Vol] 3.5 g/dL Normal [facility] Comment on above: Performed By: #### H EPATIC, CBC, ESR, CRP, CREAT, CK #### [place] [address] [place] #### RNA POLYMR, ANTI TH TO, EVAN, U3 WOOD TURNER, ANTIR, PM-SCL ABS #### [facility] , Protein [Mass/Vol] 7.1 g/dL Normal 6.1-7.9 [facility] Comment on above: Performed By: #### H EPATIC, CBC, ESR, CRP, CREAT, CK #### [place] [address] [place] #### RNA POLYMR, ANTI TH TO, EVAN, U3 WOOD TURNER, ANTIR, PM-SCL ABS #### [facility] , PM-SCL Antibodieson 06-19-20 22 RAIZA PM-Scl Antibody <20 Normal <20 [facility] Comment on above: Result Comment: This test was developed and its performance characteristics determined by [facility]. It has not been cleared or approved by the Food and Drug Administration. Negative: <20 Weak Positive: 20 - 39 Moderate Positive: 40 - 80 Strong Positive: >80 Performed at: [facility] [address] [place] [id number] Otm Consultant: Artemio Nair MD, Phone: [phone] Performed By: #### C UU, ADDONUAPLUS #### [address] #### C3, C4, CH50 #### [facility] , RNA Polymerase IIion 022 RNA Polymerase IIi <20 Normal <20 [facility] Comment on above: Result Comment: Nega tive: <20 Weak Positive: 20 - 39 Moderate Positive: 40 - 80 Strong Positive: >80 Performed at: [facility] [address] [place] [id number] Otm Consultant: Artemio Nair MD, Phone: [phone] PERFORMED BY: [place] [address] PATHOLOGIST DISASTER RECOVERY SPECIALIST RADHA BULLARD M.D. Performed By: #### C UU, ADDONUAPLUS #### [address] #### C3, C4, CH50 #### [facility] , Th/To Antibodyon 06-19-2022 Th/To Antibody Negative Normal Negative [facility] Comment on above: Result Comment: This test was developed and its performance characteristics determined by [facility]. It has not been cleared or approved by the Food and Drug Administration. Performed at: [facility] [address] [place] [address] [place] [id number] Otm Consultant: Artemio Nair MD, Phone: [phone] Performed By: #### C UU, ADDONUAPLUS #### [address] #### C3, C4, CH50 #### [facility] , U3 Rnpon 06-19-2022 U3 Blast Setter Negative Normal Negative [facility] Comment on above: Result Comment: This test was developed and its performance characteristics determined by [facility]. It has not been cleared or approved by the Food and Drug Administration. Performed at: [facility] [address] [place], [place] [id number] Otm Consultant: Artemio Nair MD, Phone: [phone] PERFORMED BY: [place] [address] PATHOLOGIST DISASTER RECOVERY SPECIALIST RADHA BULLARD M.D. Performed By: #### C UU, ADDONUAPLUS #### [address] #### C3, C4, CH50 #### [facility] , Urine Cultureon 06-19-2022 Bacteria identified Cx Nom (U) No Growth 2 Days PERFORMED BY: [place] [address] PATHOLOGIST DISASTER RECOVERY SPECIALIST RADHA BULLARD M.D. Normal [facility] Comment on above: Performed By: #### C UU, ADDONUAPLUS #### [address] #### C3, C4, CH50 #### [facility] , PROF CHEM 8 (BAS METB)on Anion gap [Moles/Vol] 12.5 mmol/L Normal [facility] Comment on above: Performed By: #### B MP #### [facility] [address] [address] [address] Reji Thomas Calcium [Mass/Vol] 8.9 mg/dL Normal 8.5-10.1 [facility] Comment on above: Performed By: #### B MP #### [facility] [address] [address] [address] Reji Thomas Chloride [Moles/Vol] 103 mmol/L Normal 98-107 [facility] Comment on above: Performed By: #### B MP #### [facility] [address] [address] [address] Reji Thomas CO2 [Moles/Vol] 26.1 mmol/L Normal 21.0-32.0 [facility] Comment on above: Performed By: #### B MP #### [facility] [address] [address] [address] Reji Thomas Creatinine [Mass/Vol] 2.09 mg/dL Critically high 0.55-1.02 [facility] Comment on above: Performed By: #### B MP #### [facility] [address] [address] [address] Reji Thomas EGFR-AF ALGERIAN 27 mL/min/1.73m2 Critically low >=60 [facility] Comment on above: Performed By: #### B MP #### [facility] [address] [place] [address] Dr. Reji Thomas EGFR-NON AF ALGERIAN 23 mL/min/1.73m2 Critically low >=60 [facility] Comment on above: Performed By: #### B MP #### [facility] [address] [address] [address] Reji Thomas Glucose [Mass/Vol] 96 mg/dL Normal 74-106 [facility] Comment on above: Performed By: #### B MP #### [facility] [address] [address] [address] Reji Thomas Potassium [Moles/Vol] 4.6 mmol/L Normal 3.5-5.1 [facility] Comment on above: Performed By: #### B MP #### [facility] [address] [address] [address] Reji Thomas Sodium [Moles/Vol] 137 mmol/L Normal 136-145 [facility] Comment on above: Performed By: #### B MP #### [facility] [address] [address] [address] Reji Thomas Urea nitrogen [Mass/Vol] 38.0 mg/dL Critically high 7.0-18.0 [facility] Comment on above: Performed By: #### B MP #### [facility] [address] [address] [address] Reji Thomas Urea nitrogen/Creatinine [Mass ratio] 18.2 mg/mg Normal [facility] Comment on above: Performed By: #### B MP #### [facility] [address] [place] [address] Dr. Reji Thomas PROTIMEon 06-04-2022 INR Coag (PPP) [Relative time] 2.51 {INR} Normal [facility] Comment on above: Performed By: #### B INTERNET MARKETING MANAGER, CMP, TSH, LIPID #### [facility] [address] [place] [address] Dr. Reji Thomas INR GUIDELINES SEE BELOW Normal [facility] Comment on above: Result Comment: SHY RED INR: 2.0 - 3.0 CONDITIONS NOT LISTED BELOW 2.5 - 3.5 FOR PROSTHETIC HEART VALVE REPLACEMENT 2.5 - 3.5 RECURRENT THROMBOSIS Performed By: #### B INTERNET MARKETING MANAGER, CMP, TSH, LIPID #### [facility] [address] [place] [address] Dr. Reji Thomas PT Coag (PPP) [Time] 25.5 s Critically high 9.0-11.6 [facility] Comment on above: Performed By: #### B INTERNET MARKETING MANAGER, CMP, TSH, LIPID #### [facility] [address] [place] [address] Dr. Reji Thomas BNPon 05-15-2022 Natriuretic peptide B (Bld) [Mass/Vol] 3661.0 pg/mL Critically high <=1,800.0 [facility] Comment on above: Performed By: #### B INTERNET MARKETING MANAGER, CMP, TSH, LIPID #### [facility] [address] [place] [address] Dr. Reji Thomas CBC AUTO DIFFon 05-15-2022 BASO # 0.1 103/ul Normal 0.0-0.1 [facility] Comment on above: Performed By: #### B MP #### [facility] [address] [place] [address] Dr. Reji Thomas Basophils/100 WBC (Bld) 1.1 % Normal 0.2-2.0 [facility] Comment on above: Performed By: #### B MP #### [facility] [address] [place] [address] Dr. Reji Thomas EO # 0.5 103/ul Normal 0.0-0.7 [facility] Comment on above: Performed By: #### B MP #### [facility] [address] [place] [address] Dr. Reji Thomas Eosinophils/100 WBC (Bld) 6.5 % Normal 0.9-7.0 [facility] Comment on above: Performed By: #### B MP #### [facility] [address] [place] [address] Dr. Reji Thomas Erythrocyte distribution width (RBC) [Ratio] 16.1 % Critically high 11.0-15.0 [facility] Comment on above: Performed By: #### B MP #### [facility] [address] [place] [address] Dr. Reji Thomas Hematocrit (Bld) [Volume fraction] 35.0 % Critically low 36.0-48.0 [facility] Comment on above: Performed By: #### B MP #### [facility] [address] [place] [address] Dr. Reji Thomas Hemoglobin (Bld) [Mass/Vol] 11.1 g/dL Critically low 12.0-16.0 [facility] Comment on above: Performed By: #### B MP #### [facility] [address] [place] [address] Dr. Reji Thomas IG # 0.02 10e3/ul Normal 0.00-0.03 [facility] Comment on above: Performed By: #### B MP #### [facility] [address] [place] [address] Dr. Reji Thomas IG % 0.3 % Normal 0.0-0.5 [facility] Comment on above: Performed By: #### B MP #### [facility] [address] [place] [address] Dr. Reji Thomas LYMPH # 1.6 103/ul Normal 1.2-3.8 [facility] Comment on above: Performed By: #### B MP #### [facility] [address] [place] [address] Dr. Reji Thomas Lymphocytes/100 WBC (Bld) 22.4 % Normal 20.5-60.0 [facility] Comment on above: Performed By: #### B MP #### [facility] [address] [place] [address] Dr. Reji Thomas MANUAL DIFF REQ NO Normal [facility] Comment on above: Performed By: #### B MP #### [facility] [address] [place] [address] Dr. Reji Thomas MCH (RBC) [Entitic mass] 26.4 pg Critically low 26.7-34.0 [facility] Comment on above: Performed By: #### B MP #### [facility] [address] [place] [address] Dr. Reji Thomas MCHC (RBC) [Mass/Vol] 31.7 g/dL Normal 29.9-35.2 [facility] Comment on above: Performed By: #### B MP #### [facility] [address] [place] [address] Dr. Reji Thomas MCV (RBC) [Entitic vol] 83.1 fL Normal 81.0-99.0 [facility] Comment on above: Performed By: #### B MP #### [facility] [address] [place] [address] Dr. Reji Thomas MONO # 0.9 103/ul Critically high 0.3-0.8 [facility] Comment on above: Performed By: #### B MP #### [facility] [address] [place] [address] Dr. Reji Thomas Monocytes/100 WBC (Bld) 12.1 % Critically high 1.7-12.0 [facility] Comment on above: Performed By: #### B MP #### [facility] [address] [place] [address] Dr. Reji Thomas NEUT # 4.1 103/ul Normal 1.4-6.5 [facility] Comment on above: Performed By: #### B MP #### [facility] [address] [place] [address] Dr. Reji Thomas Neutrophils/100 WBC (Bld) 57.6 % Normal 43.0-75.0 [facility] Comment on above: Performed By: #### B MP #### [facility] [address] [place] [address] Dr. Reji Thomas Platelet mean volume (Bld) [Entitic vol] 8.8 fL Critically low 9.5-13.5 [facility] Comment on above: Performed By: #### B MP #### [facility] [address] [place] [address] Dr. Reji Thomas PLT 253 103/ul Normal 150-450 [facility] Comment on above: Performed By: #### B MP #### [facility] [address] [place] [address] Dr. Reji Thomas RBC 4.21 106/ul Normal 4.20-5.40 [facility] Comment on above: Performed By: #### B MP #### [facility] [address] [place] [address] Dr. Reji Thomas WBC 7.1 103/ul Normal 4.0-11.0 [facility] Comment on above: Performed By: #### B MP #### [facility] [address] [place] [address] Dr. Reji Thomas PROF CHEM 8 (BAS METB)on Anion gap [Moles/Vol] 10.5 mmol/L Normal [facility] Comment on above: Performed By: #### B INTERNET MARKETING MANAGER, CMP, TSH, LIPID #### [facility] [address] [place] [address] Dr. Reji Thomas Calcium [Mass/Vol] 8.9 mg/dL Normal 8.5-10.1 [facility] Comment on above: Performed By: #### B INTERNET MARKETING MANAGER, CMP, TSH, LIPID #### [facility] [address] [address] [address] Reji Thomas Chloride [Moles/Vol] 104 mmol/L Normal 98-107 [facility] Comment on above: Performed By: #### B INTERNET MARKETING MANAGER, CMP, TSH, LIPID #### [facility] [address] [address] [address] Reji Thomas CO2 [Moles/Vol] 29.5 mmol/L Normal 21.0-32.0 [facility] Comment on above: Performed By: #### B INTERNET MARKETING MANAGER, CMP, TSH, LIPID #### [facility] [address] [place] [address] Dr. Reji Thomas Creatinine [Mass/Vol] 1.73 mg/dL Critically high 0.55-1.02 [facility] Comment on above: Performed By: #### B INTERNET MARKETING MANAGER, CMP, TSH, LIPID #### [facility] [address] [place] [address] Dr. Reji Thomas EGFR-AF ALGERIAN 34 mL/min/1.73m2 Critically low >=60 [facility] Comment on above: Performed By: #### B INTERNET MARKETING MANAGER, CMP, TSH, LIPID #### [facility] [address] [place] [address] Dr. Reji Thomas EGFR-NON AF ALGERIAN 28 mL/min/1.73m2 Critically low >=60 [facility] Comment on above: Performed By: #### B INTERNET MARKETING MANAGER, CMP, TSH, LIPID #### [facility] [address] [place] [address] Dr. Reji Thomas Glucose [Mass/Vol] 79 mg/dL Normal 74-106 [facility] Comment on above: Performed By: #### B INTERNET MARKETING MANAGER, CMP, TSH, LIPID #### [facility] [address] [address] [address] Reji Thomas Potassium [Moles/Vol] 4.0 mmol/L Normal 3.5-5.1 [facility] Comment on above: Performed By: #### B INTERNET MARKETING MANAGER, CMP, TSH, LIPID #### [facility] [address] [address] [address] Reji Thomas Sodium [Moles/Vol] 140 mmol/L Normal 136-145 [facility] Comment on above: Performed By: #### B INTERNET MARKETING MANAGER, CMP, TSH, LIPID #### [facility] [address] [place] [address] Dr. Reji Thomas Urea nitrogen [Mass/Vol] 22.0 mg/dL Critically high 7.0-18.0 [facility] Comment on above: Performed By: #### B INTERNET MARKETING MANAGER, CMP, TSH, LIPID #### [facility] [address] [place] [address] Dr. Reji Thomas Urea nitrogen/Creatinine [Mass ratio] 12.7 mg/mg Normal [facility] Comment on above: Performed By: #### B INTERNET MARKETING MANAGER, CMP, TSH, LIPID #### [facility] [address] [place] [address] Dr. Reji Thomas PROTIMEon 05-15-2022 INR Coag (PPP) [Relative time] 2.53 {INR} Normal [facility] Comment on above: Performed By: #### B INTERNET MARKETING MANAGER, CMP, TSH, LIPID #### [facility] [address] [place] [address] Dr. Reji Thomas INR GUIDELINES SEE BELOW Normal [facility] Comment on above: Result Comment: SHY RED INR: 2.0 - 3.0 CONDITIONS NOT LISTED BELOW 2.5 - 3.5 FOR PROSTHETIC HEART VALVE REPLACEMENT 2.5 - 3.5 RECURRENT THROMBOSIS Performed By: #### B INTERNET MARKETING MANAGER, CMP, TSH, LIPID #### [facility] [address] [place] [address] Dr. Reji Thomas PT Coag (PPP) [Time] 25.7 s Critically high 9.0-11.6 [facility] Comment on above: Performed By: #### B INTERNET MARKETING MANAGER, CMP, TSH, LIPID #### [facility] [address] [place] [address] Dr. Reji Thomas ECHOCARDIO M/2D COMPLETEon 0 05-04-2022 ECHOCARDIO M/2D COMPLETE Patient: INEZ JUAREZ Exam Date: 05/04/2022 : 1940 Gender:F Ordering : DR JENN PRADO M.D. Admission #: [id number] Family : Order #: [id number] CLICK HERE TO VIEW EXAM ECHOCARDIOGRAM REPORT PROCEDURE: CARDIO PULMONARY ECHOCARDIO M/2D COMP INDICATIONS: Primary pulmonary hypertension COMPARISON: None. DESCRIPTION: COMPLETE ECHOCARDIOGRAM Real-time transthoracic echocardiography with 2D, M-mode, spectral and color flow Doppler performed. QUALITY: Technical quality was good. LEFT VENTRICLE: Normal chamber size. Normal left ventricular wall thickness. Global left ventricular systolic function is normal. LV EF: Calculated left ventricular ejection fraction is 69%. DIASTOLIC: ATRIAL SEPTUM: LEFT ATRIUM: Severe dilatation. RIGHT ATRIUM: Severe dilatation. RIGHT VENTRICLE: Mild dilatation. Normal right ventricular systolic function. TRICUSPID VALVE: Normal mobility and thickness. No stenosis with moderate regurgitation. Severe pulmonary hypertension. RVSP 68mmHg MITRAL VALVE: Mildly thickened with normal mobility. No mitral valve prolapse. No evidence of mitral valve stenosis. There is no mitral annular calcification. Mild mitral regurgitation. AORTIC VALVE: Normal trileaflet appearance. Mildly calcified right coronary cusp of the aortic valve with mildly diminished mobility. No significant aortic valve stenosis. No aortic regurgitation. AORTIC ROOT: Normal diameter and appearance. PULMONIC VALVE: Normal thickness and mobility. No stenosis. Trivial regurgitation. PERICARDIUM: Trivial pericardial effusion. IVC: Collapses with inspirations. Moderate dilatation measuring 2.4cm. PLEURA: CONCLUSION: 1. Normal left ventricular systolic function. LVEF is visually estimated at 65%. 2. Mild right ventricular dilatation with normal systolic function. 3. Severe biatrial enlargement. 4. Mild mitral and tricuspid regurgitation. 5. Severely elevated right-sided pressures. RVSP is 68 mmHg. 6. No pericardial effusion. Adult Echocardiography Procedure Report Left Ventricle LVEDD (3.7 - 5.6 cm): 4.31 cm LVESD (2.2 - 4.0 cm): 2.83 cm LVIVS thickness (0.6 - 1.2 cm): 9.85 mm LVPW thickness (0.5 - 1.0 cm): 9.58 mm e': 9.65 cm/s E - e': 15.60 LVOT Area (cm2): 3.14 cm2 LVOT Diameter 2.00 cm Left Ventricular Ejection Fraction: 65 % Left Atrium LA Volume Index (2D A2C): 66.30 ml/m2 Left Atrium Systolic Dimension: 4.30 cm Left Atrium Systolic Area(A2C): 27.80 cm2 Left Atrium Systolic Area(A4C): 27.20 cm2 Left Atrium Systolic Volume(A2C): 315147 mm3 Left Atrium Systolic Volume(A4C): 80222 mm3 Mitral Valve MV E to A Ratio: 2.60 Deceleration Baker: 89977 mm/s2 Mitral Valve A-Wave Peak Velocity: 58.60 cm/s Mitral Valve E-Wave Peak Velocity: 151.00 cm/s Right Ventricle RV Internal Diastolic Dimension: 4.02 cm Aorta AO Root Diam: 2.70 cm Aortic Valve AoV Area (Peak Mark): 1.25 cm2 Aortic Valve Cusp Separation: 1.30 cm Peak Velocity(Antegrade Flow): 178.00 cm/s Peak Gradient(Antegrade Flow): 13 mm[Hg] Tricuspid Valve Peak Velocity (Regurgitant Flow): 321.00 cm/s Pulmonic Valve Peak Velocity: 101.00 cm/s Peak Gradient: 4 mm[Hg] Right Atrium Dictated by: Jenn Prado M.D. on 05/07/2022 at 11:31 Approved by: Jenn Prado M.D. on 05/07/2022 at 11:39 Normal [facility] EVAN by IFAon 04-19-2022 Antinuclear Antibodies, IFA Positive Abnormal [facility] Comment on above: Result Comment: Nega tive <1:80 Borderline 1:80 Positive >1:80 Performed By: #### B INTERNET MARKETING MANAGER, CMP, TSH, LIPID #### [facility] [address] [address] [address] Reji Thomas Centriole Pattern Normal [facility] Comment on above: Performed By: #### B INTERNET MARKETING MANAGER, CMP, TSH, LIPID #### [facility] [address] [address] [address] Reji Thomas Centromere Pattern Normal [facility] Comment on above: Performed By: #### B INTERNET MARKETING MANAGER, CMP, TSH, LIPID #### [facility] [address] [address] [address] Reji Thomas Homogeneous Pattern 1:320 Critically high [facility] Comment on above: Result Comment: ICAP nomenclature: AC-1 Performed By: #### B INTERNET MARKETING MANAGER, CMP, TSH, LIPID #### [facility] [address] [place], [place] [address] Dr. Reji Thomas Midbody Pattern Normal The [facility] Comment on above: Performed By: #### B INTERNET MARKETING MANAGER, CMP, TSH, LIPID #### [facility] [address] [place], [place] [address] Dr. Reji Thomas Note: Comment Normal [facility] Comment on above: Result Comment: For more information about Hep-2 cell patterns use ANApatterns.org, the official website for the International Consensus on Antinuclear Antibody (EVAN) Patterns (ICAP). A positive EVAN result may occur in healthy individuals (low titer) or be associated with a variety of diseases. See interpretation chart which is not all inclusive: . Pattern Antigen Detected Suggested Disease Association Homogeneous DNA(ds,ss), SLE - High titers Nucleosomes, Histones Drug-induced SLE Speckled Sm, WOOD TURNER, SCL-70, SLE,MCTD,PSS (diffuse form), SS-A/SS-B Sjogrens Nucleolar SCL-70, PM-1/SCL High titers Scleroderma, PM/DM Centromere Centromere PSS (limited form) w/Crest syndrome variable Nuclear Dot [id number] Primary Biliary Cirrhosis Nuclear GP210, Primary Biliary Cirrhosis Membrane eleonora A,B,C Performed By: #### B INTERNET MARKETING MANAGER, CMP, TSH, LIPID #### [facility] [address] [place] [address] Dr. Reji Thomas Nuclear Dot Pattern Normal [facility] Comment on above: Performed By: #### B INTERNET MARKETING MANAGER, CMP, TSH, LIPID #### [facility] [address] [place] [address] Dr. Reji Thomas Nuclear Membrane Pattern Normal [facility] Comment on above: Performed By: #### B INTERNET MARKETING MANAGER, CMP, TSH, LIPID #### [facility] [address] [place] [address] Dr. Reji Thomas Nucleolar Pattern Normal [facility] Comment on above: Performed By: #### B INTERNET MARKETING MANAGER, CMP, TSH, LIPID #### [facility] [address] [place] [address] Dr. Reji Thomas PCNA Pattern Normal [facility] Comment on above: Performed By: #### B INTERNET MARKETING MANAGER, CMP, TSH, LIPID #### [facility] [address] [place] [address] Dr. Reji Thomas Speckled Pattern Normal [facility] Comment on above: Performed By: #### B INTERNET MARKETING MANAGER, CMP, TSH, LIPID #### [facility] [address] [address] [address] Reji Thomas Spindle Apparatus Pattern Normal [facility] Comment on above: Performed By: #### B INTERNET MARKETING MANAGER, CMP, TSH, LIPID #### [facility] [address] [address] [address] Reji Thomas ANCA (ANTINEUTROPHIL CYTOPLA MSMIC [facility] 04-18-2022 Atypical pANCA <1:20 Normal Neg:<1:20 [facility] Comment on above: Result Comment: Seru m is slightly hemolyzed The atypical pANCA pattern has been observed in a significant percentage of patients with ulcerative colitis, primary sclerosing cholangitis and autoimmune hepatitis. Performed By: #### B MP #### [facility] [address] [address] [address] Reji Thomas Cytoplasmic (C-ANCA) <1:20 Normal Neg:<1:20 [facility] Comment on above: Result Comment: Seru m is slightly hemolyzed Performed By: #### B MP #### [facility] [address] [address] [address] Reji Thomas Perinuclear (P-ANCA) <1:20 Normal Neg:<1:20 [facility] Comment on above: Result Comment: Seru m is slightly hemolyzed The presence of positive fluorescence exhibiting P-ANCA or C-ANCA patterns alone is not specific for the diagnosis of Arlene's Granulomatosis (WG) or microscopic polyangiitis. Decisions about treatment should not be based solely on ANCA IFA results. The International ANCA Group Consensus recommends follow up testing of positive sera with both NJ-3 and MPO-ANCA enzyme immunoassays. As many as 5% serum samples are positive only by EIA. Ref. AM J Clin Pathol 1999;111:507-513. Performed By: #### B MP #### [facility] [address] [address] [address] Reji Thomas ANTISCLERODERMA ABon 022 Antiscleroderma-70 Antibodies 0.3 AI Normal 0.0-0.9 [facility] Comment on above: Performed By: #### B INTERNET MARKETING MANAGER, CMP, TSH, LIPID #### [facility] [address] [place] [address] Dr. Reji Thomas T3 UPTAKEon 04-18-2022 Free Thyroxine Index 1.8 Normal 1.2-4.9 [facility] Comment on above: Performed By: #### B INTERNET MARKETING MANAGER, CMP, TSH, LIPID #### [facility] [address] [place] [address] Dr. Reji Thomas T3 Uptake 23 % Critically low 24-39 [facility] Comment on above: Performed By: #### B INTERNET MARKETING MANAGER, CMP, TSH, LIPID #### [facility] [address] [place] [address] Dr. Reji Thomas T4 LABCORPon 04-18-2022 T4 [Mass/Vol] 7.8 ug/dL Normal 4.5-12.0 [facility] Comment on above: Performed By: #### B INTERNET MARKETING MANAGER, CMP, TSH, LIPID #### [facility] [address] [place] [address] Dr. Reji Thomas BNPon 04-16-2022 Natriuretic peptide B (Bld) [Mass/Vol] 2870.0 pg/mL Critically high <=1,800.0 [facility] Comment on above: Result Comment: repe ated Performed By: #### B INTERNET MARKETING MANAGER, CMP, TSH, LIPID #### [facility] [address] [place] [address] Dr. Reji Thomas CBC AUTO DIFFon 04-16-2022 BASO # 0.1 103/ul Normal 0.0-0.1 [facility] Comment on above: Performed By: #### B INTERNET MARKETING MANAGER, CMP, TSH, LIPID #### [facility] [address] [place] [address] Dr. Reji Thomas Basophils/100 WBC (Bld) 0.9 % Normal 0.2-2.0 [facility] Comment on above: Performed By: #### B INTERNET MARKETING MANAGER, CMP, TSH, LIPID #### [facility] [address] [place] [address] Dr. Reji Thomas EO # 0.3 103/ul Normal 0.0-0.7 [facility] Comment on above: Performed By: #### B INTERNET MARKETING MANAGER, CMP, TSH, LIPID #### [facility] [address] [place] [address] Dr. Reji Thomas Eosinophils/100 WBC (Bld) 3.9 % Normal 0.9-7.0 [facility] Comment on above: Performed By: #### B INTERNET MARKETING MANAGER, CMP, TSH, LIPID #### [facility] [address] [place] [address] Dr. Reji Thomas Erythrocyte distribution width (RBC) [Ratio] 15.9 % Critically high 11.0-15.0 [facility] Comment on above: Performed By: #### B INTERNET MARKETING MANAGER, CMP, TSH, LIPID #### [facility] [address] [place] [address] Dr. Reji Thomas Hematocrit (Bld) [Volume fraction] 38.1 % Normal 36.0-48.0 [facility] Comment on above: Performed By: #### B INTERNET MARKETING MANAGER, CMP, TSH, LIPID #### [facility] [address] [place] [address] Dr. Reji Thomas Hemoglobin (Bld) [Mass/Vol] 12.1 g/dL Normal 12.0-16.0 [facility] Comment on above: Performed By: #### B INTERNET MARKETING MANAGER, CMP, TSH, LIPID #### [facility] [address] [place] [address] Dr. Reji Thomas IG # 0.02 10e3/ul Normal 0.00-0.03 [facility] Comment on above: Performed By: #### B INTERNET MARKETING MANAGER, CMP, TSH, LIPID #### [facility] [address] [place] [address] Dr. Reji Thomas IG % 0.3 % Normal 0.0-0.5 [facility] Comment on above: Performed By: #### B INTERNET MARKETING MANAGER, CMP, TSH, LIPID #### [facility] [address] [place] [address] Dr. Reji Thomas LYMPH # 1.6 103/ul Normal 1.2-3.8 [facility] Comment on above: Performed By: #### B INTERNET MARKETING MANAGER, CMP, TSH, LIPID #### [facility] [address] [address] [address] Reji Thomas Lymphocytes/100 WBC (Bld) 22.6 % Normal 20.5-60.0 [facility] Comment on above: Performed By: #### B INTERNET MARKETING MANAGER, CMP, TSH, LIPID #### [facility] [address] [address] [address] Reji Thomas MANUAL DIFF REQ NO Normal [facility] Comment on above: Performed By: #### B INTERNET MARKETING MANAGER, CMP, TSH, LIPID #### [facility] [address] [address] [address] Reji Thomas MCH (RBC) [Entitic mass] 26.5 pg Critically low 26.7-34.0 [facility] Comment on above: Performed By: #### B INTERNET MARKETING MANAGER, CMP, TSH, LIPID #### [facility] [address] [place] [address] Dr. Reji Thomas MCHC (RBC) [Mass/Vol] 31.8 g/dL Normal 29.9-35.2 [facility] Comment on above: Performed By: #### B INTERNET MARKETING MANAGER, CMP, TSH, LIPID #### [facility] [address] [place] [address] Dr. Reji Thomas MCV (RBC) [Entitic vol] 83.4 fL Normal 81.0-99.0 [facility] Comment on above: Performed By: #### B INTERNET MARKETING MANAGER, CMP, TSH, LIPID #### [facility] [address] [place] [address] Dr. Reji Thomas MONO # 0.6 103/ul Normal 0.3-0.8 [facility] Comment on above: Performed By: #### B INTERNET MARKETING MANAGER, CMP, TSH, LIPID #### [facility] [address] [place] [address] Dr. Reji Thomas Monocytes/100 WBC (Bld) 9.3 % Normal 1.7-12.0 [facility] Comment on above: Performed By: #### B INTERNET MARKETING MANAGER, CMP, TSH, LIPID #### [facility] [address] [address] [address] Reji Thomas NEUT # 4.3 103/ul Normal 1.4-6.5 [facility] Comment on above: Performed By: #### B INTERNET MARKETING MANAGER, CMP, TSH, LIPID #### [facility] [address] [address] [address] Reji Thomas Neutrophils/100 WBC (Bld) 63.0 % Normal 43.0-75.0 [facility] Comment on above: Performed By: #### B INTERNET MARKETING MANAGER, CMP, TSH, LIPID #### [facility] [address] [address] [address] Reji Thomas Platelet mean volume (Bld) [Entitic vol] 9.2 fL Critically low 9.5-13.5 [facility] Comment on above: Performed By: #### B INTERNET MARKETING MANAGER, CMP, TSH, LIPID #### [facility] [address] [place] [address] Dr. Reji Thomas PLT 211 103/ul Normal 150-450 [facility] Comment on above: Performed By: #### B INTERNET MARKETING MANAGER, CMP, TSH, LIPID #### [facility] [address] [place] [address] Dr. Reji Thomas RBC 4.57 106/ul Normal 4.20-5.40 [facility] Comment on above: Performed By: #### B INTERNET MARKETING MANAGER, CMP, TSH, LIPID #### [facility] [address] [place] [address] Dr. Reji Thomas WBC 6.9 103/ul Normal 4.0-11.0 [facility] Comment on above: Performed By: #### B INTERNET MARKETING MANAGER, CMP, TSH, LIPID #### [facility] [address] [place] [address] Dr. Reji Thomas GLYCOHEMOGLOBIN A1Con 2021 ADA RECOMMENDATION SEE BELOW Normal [facility] Comment on above: Result Comment: ADA RECOMMENDED LIMIT 4.0 - 6.0 ADA THERAPEUTIC TARGET < 7.0 ACTION SUGGESTED > 7.0 Performed By: #### B INTERNET MARKETING MANAGER, CMP, TSH, LIPID #### [facility] [address] [place] [address] Dr. Reji Thomas Glucose [Mass/Vol] 100 mg/dL Normal [facility] Comment on above: Performed By: #### B INTERNET MARKETING MANAGER, CMP, TSH, LIPID #### [facility] [address] [address] [address] Reji Thomas HbA1c (Bld) [Mass fraction] 5.1 % Normal 4.5-6.2 [facility] Comment on above: Performed By: #### B INTERNET MARKETING MANAGER, CMP, TSH, LIPID #### [facility] [address] [place] [address] Dr. Reji Thomas IRONon 04-16-2022 Iron [Mass/Vol] 42.0 ug/dL Critically low 50.0-170.0 [facility] Comment on above: Performed By: #### B INTERNET MARKETING MANAGER, CMP, TSH, LIPID #### [facility] [address] [place] [address] Dr. Reji Thomas LIPID PROFILEon 04-16-2022 CHOL-HDL RATIO NORM SEE BELOW Normal [facility] Comment on above: Result Comment: 3.3 - 4.4 LOW RISK 4.4 - 7.1 AVERAGE RISK 7.1 - 11.0 MODERATE RISK >11.0 HIGH RISK Performed By: #### B INTERNET MARKETING MANAGER, CMP, TSH, LIPID #### [facility] [address] [place] [address] Dr. Reji Thomas Cholesterol [Mass/Vol] 176 mg/dL Normal <=200 [facility] Comment on above: Performed By: #### B INTERNET MARKETING MANAGER, CMP, TSH, LIPID #### [facility] [address] [place] [address] Dr. Reji Thomas Cholesterol in HDL [Mass/Vol] 52 mg/dL Normal 40-60 [facility] Comment on above: Performed By: #### B INTERNET MARKETING MANAGER, CMP, TSH, LIPID #### [facility] [address] [place] [address] Dr. Reji Thomas Cholesterol in LDL [Mass/Vol] 102.8 mg/dL Normal [facility] Comment on above: Performed By: #### B INTERNET MARKETING MANAGER, CMP, TSH, LIPID #### [facility] [facility] [address] [place] [address] Dr. Reji Thomas Cholesterol.total/Ch olesterol in HDL [Mass ratio] 3.4 {ratio} Normal [facility] Comment on above: Performed By: #### B INTERNET MARKETING MANAGER, CMP, TSH, LIPID #### [facility] [address] [address] [address] Reji Thomas HDL NORMAL > or = 60 mg/dl - LOW CARDIOVASCULAR RISK <40 mg/dl - HIGH CARDIOVASCULAR RISK Normal [facility] Comment on above: Performed By: #### B INTERNET MARKETING MANAGER, CMP, TSH, LIPID #### [facility] [address] [address] [address] Reji Thomas LDL CALC NORMAL SEE BELOW Normal [facility] Comment on above: Result Comment: <100 mg/dl OPTIMAL 100 - 129 mg/dl NEAR OR ABOVE OPTIMAL 130 - 159 mg/dl BORDERLINE HIGH 160 - 189 mg/dl HIGH >190 mg/dl VERY HIGH Performed By: #### B INTERNET MARKETING MANAGER, CMP, TSH, LIPID #### [facility] [address] [address] [address] Reji Thomas Triglyceride [Mass/Vol] 106 mg/dL Normal <=150 [facility] Comment on above: Performed By: #### B INTERNET MARKETING MANAGER, CMP, TSH, LIPID #### [facility] [address] [address] [address] Reji Thomas VLDL CALC 21.2 mg/dL Normal [facility] Comment on above: Performed By: #### B INTERNET MARKETING MANAGER, CMP, TSH, LIPID #### [facility] [address] [place] [address] Dr. Reji Thomas PROF 14(COMP METB)on 022 Albumin [Mass/Vol] 3.6 g/dL Normal 3.4-5.0 [facility] Comment on above: Performed By: #### B INTERNET MARKETING MANAGER, CMP, TSH, LIPID #### [facility] [address] [place] [address] Dr. Reji Thomas Albumin/Globulin [Mass ratio] 0.9 {ratio} Normal [facility] Comment on above: Performed By: #### B INTERNET MARKETING MANAGER, CMP, TSH, LIPID #### [facility] [address] [address] [address] Reji Thomas ALP [Catalytic activity/Vol] 62 U/L Normal 46-116 [facility] Comment on above: Performed By: #### B INTERNET MARKETING MANAGER, CMP, TSH, LIPID #### [facility] [address] [address] [address] Reji Thomas ALT [Catalytic activity/Vol] 14 U/L Normal 14-59 [facility] Comment on above: Performed By: #### B INTERNET MARKETING MANAGER, CMP, TSH, LIPID #### [facility] [address] [place] [address] Dr. Reji Thomas Anion gap [Moles/Vol] 14.5 mmol/L Normal [facility] Comment on above: Performed By: #### B INTERNET MARKETING MANAGER, CMP, TSH, LIPID #### [facility] [address] [place] [address] Dr. Reji Thomas AST [Catalytic activity/Vol] 17 U/L Normal 15-37 [facility] Comment on above: Performed By: #### B INTERNET MARKETING MANAGER, CMP, TSH, LIPID #### [facility] [address] [place] [address] Dr. Reji Thomas Bilirubin [Mass/Vol] 0.6 mg/dL Normal 0.2-1.0 [facility] Comment on above: Performed By: #### B INTERNET MARKETING MANAGER, CMP, TSH, LIPID #### [facility] [address] [place] [address] Dr. Reji Thomas Calcium [Mass/Vol] 8.8 mg/dL Normal 8.5-10.1 [facility] Comment on above: Performed By: #### B INTERNET MARKETING MANAGER, CMP, TSH, LIPID #### [facility] [address] [place] [address] Dr. Reji Thomas Chloride [Moles/Vol] 102 mmol/L Normal 98-107 [facility] Comment on above: Performed By: #### B INTERNET MARKETING MANAGER, CMP, TSH, LIPID #### [facility] [address] [place] [address] Dr. Reji Thomas CO2 [Moles/Vol] 26.3 mmol/L Normal 21.0-32.0 [facility] Comment on above: Performed By: #### B INTERNET MARKETING MANAGER, CMP, TSH, LIPID #### [facility] [address] [address] [address] Reji Thomas Creatinine [Mass/Vol] 1.76 mg/dL Critically high 0.55-1.02 [facility] Comment on above: Performed By: #### B INTERNET MARKETING MANAGER, CMP, TSH, LIPID #### [facility] [address] [place] [address] Dr. Reji Thomas EGFR-AF ALGERIAN 33 mL/min/1.73m2 Critically low >=60 [facility] Comment on above: Performed By: #### B INTERNET MARKETING MANAGER, CMP, TSH, LIPID #### [facility] [address] [place] [address] Dr. Reji Thomas EGFR-NON AF ALGERIAN 28 mL/min/1.73m2 Critically low >=60 [facility] Comment on above: Performed By: #### B INTERNET MARKETING MANAGER, CMP, TSH, LIPID #### [facility] [address] [place] [address] Dr. Reji Thomas Globulin (S) [Mass/Vol] 4.2 g/dL Normal [facility] Comment on above: Performed By: #### B INTERNET MARKETING MANAGER, CMP, TSH, LIPID #### [facility] [address] [place] [address] Dr. Reji Thomas Glucose [Mass/Vol] 81 mg/dL Normal 74-106 [facility] Comment on above: Performed By: #### B INTERNET MARKETING MANAGER, CMP, TSH, LIPID #### [facility] [address] [place] [address] Dr. Reji Thomas Potassium [Moles/Vol] 3.8 mmol/L Normal 3.5-5.1 [facility] Comment on above: Performed By: #### B INTERNET MARKETING MANAGER, CMP, TSH, LIPID #### [facility] [address] [place] [address] Dr. Reji Thomas Protein [Mass/Vol] 7.8 g/dL Normal 6.4-8.2 [facility] Comment on above: Performed By: #### B INTERNET MARKETING MANAGER, CMP, TSH, LIPID #### [facility] [address] [address] [address] Reji Thomas Sodium [Moles/Vol] 139 mmol/L Normal 136-145 [facility] Comment on above: Performed By: #### B INTERNET MARKETING MANAGER, CMP, TSH, LIPID #### [facility] [address] [address] [address] Reji Thomas Urea nitrogen [Mass/Vol] 27.0 mg/dL Critically high 7.0-18.0 [facility] Comment on above: Performed By: #### B INTERNET MARKETING MANAGER, CMP, TSH, LIPID #### [facility] [address] [address] [address] Reji Thomas Urea nitrogen/Creatinine [Mass ratio] 15.3 mg/mg Normal [facility] Comment on above: Performed By: #### B INTERNET MARKETING MANAGER, CMP, TSH, LIPID #### [facility] [address] [place] [address] Dr. Reji Thomas PROTIMEon 04-16-2022 INR Coag (PPP) [Relative time] 1.92 {INR} Normal [facility] Comment on above: Performed By: #### B INTERNET MARKETING MANAGER, CMP, TSH, LIPID #### [facility] [address] [place] [address] Dr. Reji Thomas INR GUIDELINES SEE BELOW Normal [facility] Comment on above: Result Comment: SHY RED INR: 2.0 - 3.0 CONDITIONS NOT LISTED BELOW 2.5 - 3.5 FOR PROSTHETIC HEART VALVE REPLACEMENT 2.5 - 3.5 RECURRENT THROMBOSIS Performed By: #### B INTERNET MARKETING MANAGER, CMP, TSH, LIPID #### [facility] [address] [place] [address] Dr. Reji Thomas PT Coag (PPP) [Time] 19.9 s Critically high 9.0-11.6 [facility] Comment on above: Performed By: #### B INTERNET MARKETING MANAGER, CMP, TSH, LIPID #### [facility] [address] [place] [address] Dr. Reji Thomas [facility] 37 mm/hr Critically high <=30 [facility] Comment on above: Performed By: #### B INTERNET MARKETING MANAGER, CMP, TSH, LIPID #### [facility] [address] [place] [address] Dr. Reji Thomas TSHon 04-16-2022 TSH 1.941 uIU/mL Normal 0.358-3.740 [facility] Comment on above: Performed By: #### B INTERNET MARKETING MANAGER, CMP, TSH, LIPID #### [facility] [address] [place] [address] Dr. Reji Thomas TSH RANGE SEE BELOW Normal [facility] Comment on above: Result Comment: <0.3 4 UIU/ml HYPERTHYROID 0.34-5.60 UIU/ml EUTHYROID >5.60 UIU/ml HYPOTHYROID Performed By: #### B INTERNET MARKETING MANAGER, CMP, TSH, LIPID #### [facility] [address] [place] [address] Dr. Reji Thomas VITAMIN D 25 OHon 04-16-2022 VIT D 25-OH 56.6 ng/mL Normal [facility] Comment on above: Performed By: #### B INTERNET MARKETING MANAGER, CMP, TSH, LIPID #### [facility] [address] [place] [address] Dr. Reji Thomas VIT D RANGES SEE BELOW Normal [facility] Comment on above: Result Comment: <20 ng/mL Vit D deficient 20 - <30 ng/mL Vit D insufficient 30 - 100 ng/mL Vit D sufficient >100 ng/mL Potential Toxicity Performed By: #### B INTERNET MARKETING MANAGER, CMP, TSH, LIPID #### [facility] [address] [place] [address] Dr. Reji Thomas Cardiovascular Lab Reporton 11-02-2021 Cardiovascular Lab Report [facility] Patient Name: Inez Juarez MR #: [id number] [facility] Physician: Jenn Prado M.D. Department of Service Date: 11/01/2021 Medicine Birthdate: 1940 Division of Room #: CC Cardiology Adult Cardiovascular Services [address] [place] [address] Cardiovascular Laboratory Report INDICATION: The patient is an 81-year-old woman with pulmonary hypertension who underwent a right heart catheterization in May 2021 that showed evidence of the vaso reactive pulmonary hypertension. She was started on calcium channel sinan therapy. A followup echocardiogram showed persistently severe pulmonary hypertension. She was referred for right heart catheterization. PROCEDURE: 1. Access into right internal jugular vein under ultrasound guidance. 2. Right heart catheterization. METHODS: Procedure was explained to the patient with the risks and benefits. She signed consent. She was brought to quality control lab technician in a fasting state. The right neck area was prepped and draped in usual fashion. Micropuncture technique and ultrasound guidance were used for access in the right internal jugular vein. A 6-Taiwanese x 11 cm sheath was placed. A 6-Taiwanese Hernández catheter was used for heart catheterization with measurement pressures and calculation of cardiac output using the estimated Nehemias method. Hernández catheter was removed. Access sheath was removed manual compression applied for hemostasis. She tolerated the procedure well. She will be observed for 1-2 hours and then discharge to home. TOTAL SEDATION TIME: 8 minutes. TOTAL FLUORO TIME: 31 seconds. TOTAL AIR KERMA: 5 mGy. TOTAL CONTRAST VOLUME: 0 mL. HEMODYNAMICS: RA 6; RV 65/1, 6; PA 61/16; mean 36; pulmonary capillary wedge pressure 8. Blood pressure 143/71, mean 103. Cardiac output 4.8, cardiac index 2.96. PA sat 66%, AO sat 95%. Transpulmonary gradient 28 mm Hg. Pulmonary vascular resistance 5.8 Wood units. FINDINGS: 1. Moderate to severe pulmonary hypertension. 2. Normal filling pressures. 3. Preserved cardiac output and cardiac index. 4. Significantly elevated transpulmonary gradient and pulmonary vascular resistance. RECOMMENDATIONS: 1. Continue current medical therapy and consider intensification of pulmonary hypertension therapy with additional treatments. 2. Follow up in Cardiology Clinic. Electronically Signed by: Jenn Prado M.D. 11/02/2021 05:47 P Jenn Prado M.D. Date Dict: 11/01/2021/02:49 P/Jenn Prado M.D. Date Trans: 11/01/2021 11:22 P/alondra [id number] cc: Bruce Rizvi M.D. [address] [place] [address] Normal [facility] Cardiovascular Lab Reporton 06-02-2021 Cardiovascular Lab Report [facility] Patient Name: Inez Juarez MR #: [id number] [facility] Physician: Jenn Prado M.D. Department of Service Date: 06/02/2021 Medicine Birthdate: 1940 Division of Room #: CC Cardiology Adult Cardiovascular Services [facility] [address] [facility]. [place] [address] Cardiovascular Laboratory Report INDICATION: The patient is an 81-year-old woman, who was evaluated recently in Cardiology Clinic because of severe pulmonary hypertension by echocardiography, in addition to significant tricuspid regurgitation and reduced right ventricular systolic function. She was referred for right heart catheterization. PROCEDURES: 1. Right heart catheterization. 2. Pulmonary vasoreactivity study. 3. Access into the right internal jugular vein under ultrasound guidance. METHODS: Procedure was explained to the patient with the risks and benefits. She signed the informed consent. She was brought to quality control lab technician in a fasting state. The right neck area was prepped and draped in usual fashion. Using micropuncture technique and ultrasound guidance, the right internal jugular vein was accessed and a 6-Taiwanese x 11 cm sheath was placed. A 6-Taiwanese Hernández catheter was used for heart catheterization with measurement of pressures and calculation of cardiac output using the estimated Nehemias method. Pulmonary vasoreactivity study was performed using administration of adenosine intravenously at a rate of 50 mcg/kg/min, increased by 50 mcg/kg/min every 3 minutes. Final adenosine dose was 200 mcg/kg/min. PA pressure was measured in addition to cardiac output. The Hernández catheter was removed. Manual compression was used for hemostasis in the right internal jugular vein. She tolerated the procedure well. She will be observed for 2 hours and then discharged to home. TOTAL FLUORO TIME: 39 seconds. TOTAL AIR KERMA: 6.6 mGy. TOTAL CONTRAST VOLUME: 0 mL. TOTAL SEDATION TIME: 31 minutes. HEMODYNAMICS: At baseline, RA 8, RV 75/2, 7. PA 76/23, mean 47. Pulmonary capillary wedge pressure 12, blood pressure 144/75, mean 95. Cardiac output 4.11, cardiac index 2.54. PA sat 56%, AO sat 91%. Pulmonary vascular resistance 8.53 Wood units. Post adenosine 200 mcg/kg/min, PA 55/18, mean 34. Blood pressure 148/81, mean 98. PA sat 64%, AO sat 93%, cardiac output 4.96, cardiac index 3.07. SUMMARY OF THE FINDINGS: 1. Severe pulmonary hypertension. 2. Normal left-sided filling pressures. 3. Mildly elevated right-sided filling pressures. 4. Reduced cardiac output and cardiac index. 5. Positive pulmonary vasoreactivity study with reduction of the PA pressures and improvement of cardiac output after adenosine intravenously. RECOMMENDATION: 1. Amlodipine 10 mg daily will be added to this patient's regimen. 2. Follow up in Cardiology Clinic. Electronically Signed by: Jenn Prado M.D. 06/05/2021 12:20 A Jenn Prado M.D. Date Dict: 06/02/2021/01:29 P/Jenn Prado M.D. Date Trans: 06/02/2021 02:42 P/alondra [id number] cc: Bruce Rizvi M.D. [address] [address] [facility] Encounters Encounter Date Encounter Type Care Provider Facility Start: 10-30-2023 End: 10-30-2023 ambulatory [facility] Start: 10-22-2023 End: 10-22-2023 ambulatory ANTONY SMITH [facility] Start: 05-20-2023 End: 05-20-2023 ambulatory [facility] Start: 03-22-2023 End: 03-23-[address] BRUCE RIZVI . Facility:[facility] Start: 02-22-2023 End: 02-23-[address] BRUCE RIZVI . Facility:[facility] Start: 01-03-2023 End: 01-04-[address] BRUCE RIZVI . Facility:[facility] Start: 11-23-2022 End: 11-24-[address] BRUCE RIZVI . Facility:[facility] Start: 10-10-2022 End: 10-11-[address] BRUCE RIZVI . Facility:[facility] Start: 09-05-2022 End: 09-10-[address] BRUCE RIZVI . Facility:[facility] Start: 08-10-2022 End: 08-11-[address] JENN PRADO Facility:[facility] Start: 08-09-2022 End: 08-11-[address] BRUCE RZIVI . Facility:[facility] Start: 07-09-2022 End: 07-10-[address] JENN PRADO Facility:[facility] Start: 07-06-2022 End: 07-07-[address] BRUCE RIZVI . Facility:[facility] Start: 06-04-2022 End: 06-05-[address] BRUCE RIZVI . Facility:[facility] Start: 05-15-2022 End: 06-08-[address] BRUCE RIZVI . Facility:[facility] Start: 05-04-2022 End: 05-05-[address] JENN PRADO Facility:[facility] Start: 04-16-2022 End: [address] BRUCE RIZVI . Facility:[facility] Start: 04-06-[address] BRUCE RIZVI . Facili ty:[facility] Start: 11-01-2021 End: 11-02-2021 ambulatory PROVIDER UNKNOWN Facility:[facility] Start: 06-02-2021 End: 06-03-2021 ambulatory PROVIDER UNKNOWN Facility:[facility] Payers Date Payer Category Payer Medicare [id number] 1961 Medicare [id number] 1961 Medicare [id number] 1961 Self-pay [id number] 1940 Unknown [id number] 2.16.8 [id number] 1940 Unknown [id number] 2.16.8 40.1.246395.3.579.2.647 1940 Unknown [id number] 2.16.84 0.1.506161.3.579.2.593 8 Unknown [id number] 2.16.84 0.1.002605.3.579.2.593 1940 Unknown [id number] 2.16.84 0.1.897457.3.579.2.593 1938 Unknown [id number] 2.16.84 0.1.009712.3.579.2.593 1938 Unknown [id number] 2.16.84 0.1.061182.3.579.2.593 1938 Unknown [id number] 2.16.84 0.1.938280.3.579.2.593 1938 Unknown [id number] 2.16.84 0.1.512321.3.579.2.593 1938 Unknown [id number] 2.16.84 0.1.099810.3.579.2.593 1938 Unknown [id number] 2.16.84 0.1.726099.3.579.2.593 1938 Unknown [id number] 2.16.84 0.1.627655.3.579.2.593 1938 Unknown [id number] 2.16.84 0.1.856510.3.579.2.593 1938 Unknown [id number] 2.16.84 0.1.674135.3.579.2.593 1938 Unknown [id number] 2.16.84 0.1.328052.3.579.2.593 1938 Unknown [id number] 2.16.84 0.1.487844.3.579.2.593 1938 Unknown [id number] 2.16.84 0.1.786036.3.579.2.593 1938 Unknown [id number] 2.16.84 0.1.927449.3.579.2.593 1938 Unknown [id number] 2.16.84 0.1.761745.3.579.2.593 1938 Unknown [id number] 2.16.84 0.1.621191.3.579.2.593 1940 Unknown [id number] 2.16.84 0.1.543942.3.579.2.593 Private Health Insurance MEB [id number] Progress note 10-30-2023 Note Date & Type Note Facility 10-30-2023 Note [facility] [facility] Subjective Inez Juarez is a 83 y.o. year old female patient being seen for follow up cath on 10/[address] Smith. Lasix was increased to 80mg in the AM and 40mg in the PM. Had labs yesterday. She says Entresto was stopped. Denies chest pain, palpitations, lightheadedness, and bleeding on warfarin. Her SOB is much improved with increase in lasix. Patient Active Problem List Diagnosis Atrial fibrillation (CMS/HCC) Essential hypertension Hyperlipidemia Gastroesophageal reflux disease Mitral valve disorder Pulmonary hypertension (CMS/HCC) Renal failure syndrome CHF (congestive heart failure) (CMS/HCC) Chronic kidney disease Gout Family History Problem Relation Name Age of Onset Hypertension Mother Coronary artery disease Father Hypertension Father Social History Tobacco Use Smoking status: Never Smokeless tobacco: Never Substance Use Topics Alcohol use: Not Currently HPI Inez is a 83-year-old woman who is seen in follow up on diastolic heart failure, atrial fibrillation (on coumadin followed by Dr Rizvi's office) and pulmonary hypertension. She has CKD3. At prior visit I stopped toprol xl and she had stopped amiodarone prior to that due severe symptomatic bradycardia. At visit of 09/26/2016 I had resumed toprol xl 25 mg daily and then reduced it to 12.5 mg daily due to bradycardia. She has done well with that. At visit of 04/29/2019 I increased hydralazine to 75 mg tid. I also increase furosemide to 60 mg daily. Her NTpro-BNP on 05/13/2019 normalized (1536 down from 2150). BMP 05/13/2019: Cr 1.8, BUN 30. - at baseline. Previously her echocardiogram showed continued severe elevation of the right-sided pressures. I increase her Lasix to 80 mg daily. BMP 11/09/2019 showed BUN 18, creatinine 1.65, potassium 4.1. She was then seen in follow up in January 2021 and an echocardiogram in April 2021 showed severe pulmonary hypertension with the right-sided enlargement and ventricular dysfunction. I proceeded with right heart catheterization on 06/02/2021 and this showed vasoreactive pulmonary hypertension. She was started on amlodipine 10 mg daily. A follow-up echocardiogram September 2021 showed severely elevated right-sided pressures. Right heart catheterization on 11/01/2021 showed moderate to severe pulmonary hypertension, normal filling pressures, preserved cardiopathy, index, significantly elevated transpulmonary gradient and pulmonary vascular resistance. TPG 28 mmHg, PVR 5.8 Wood units. PA 61/16 mean 36, pulmonary wedge pressure 8. She had a VQ scan that was negative. PFTs showed normal FEV1 over FVC, significantly reduced DLCO. At visit of 01/22/2022 I started her on sildenafil 20 mg 3 times daily. I reduced hydralazine to 25 mg 3 times daily. Blood testing was significant for elevated EVAN. At visit of 05/07/2022 I stopped hydralazine and referred her to rheumatology. I also started her on Letairis 5 mg once daily. After starting Letairis she developed significant shortness of breath and leg edema. She stopped it. Dr. Rizvi gave her spironolactone for few days. She reports that her symptoms resolved. She continues to be on sildenafil 20 mg 3 times daily and Lasix 80 mg daily. Also her renal function had worsened and Dr. Amanda wanted to proceed with renal ultrasound and referral to nephrology for possible biopsy. She says that she did not want to go down that route and prefers to not have another visit with rheumatology or nephrology. Following last visit with me I proceeded with an echocardiogram that showed severe pulmonary hypertension. 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 Her furosemide was increased to 80 mg in the morning and 40 mg in evening. She has dyspnea on moderate exertion, WHO FC II-III. She has no chest pain. No syncope. She has bilateral mild lower extremity edema. She says that her symptoms improved after increasing furosemide dosage. Review of Systems Eyes: Positive for blurred vision. Cardiovascular: Positive for dyspnea on exertion (improving). Hematologic/Lymphatic: Bruises/bleeds easily. Objective Visit Vitals BP 130/76 (BP Location: Left arm, Patient Position: Sitting) Pulse 70 Ht 1.524 m (5') Wt 61.7 kg (136 lb) SpO2 96% BMI 26.56 kg/m??? OB Status Postmenopausal Smoking Status Never BSA 1.62 m??? Physical Exam Constitutional: Appearance: She is well-developed. She is not ill-appearing. Comments: Thin appearing HENT: Head: Normocephalic and atraumatic. Nose: Nose normal. Eyes: General: No scleral icterus. Pupils: Pupils are equal, round, and reactive to light. Neck: Thyroid: No thyromegaly. Vascular: No JVD. Cardiovascular: Rate and Rhythm: Normal rate. Rhythm irregularly irregular. Pulses: Radial pulses are 2+ on the right side and 2+ on the left side. Heart sounds: Murmur heard. Systol (more content not included)... [facility] Clinical Note 10-22-2023 Note Date & Type Note Facility 10-22-2023 Note Patient: Inez foss Procedure Information Date/Time: 10/22/2330 Procedure: Right heart cath Location: [facility] / [facility] (Cath) Providers: Antony Smith MD Clinical information reviewed: Allergies Meds OB Status Physical Exam Airway Mallampati: III TM distance: >3 FB Neck ROM: full Cardiovascular Rhythm: regular Rate: normal Dental Pulmonary - normal exam Breath sounds clear to auscultation Abdominal Abdomen: soft Anesthesia Plan ASA 3 other (Moderate sedation) Anesthetic plan and risks discussed with patient. Use of blood products discussed with patient who consented to blood products. Plan discussed with fellow and attending. Additional Equipment Requests [facility] Clinical Note 10-15-2023 Note Date & Type Note Facility 10-15-[address] Smith regarding warfarin. Dr Smith requested warfarin to be held for 3 days prior to procedure. [facility] Progress note 09-19-2023 Note Date & Type Note Facility 09-19-2023 Note [facility] Progress note 05-20-2023 Note Date & Type Note Facility 05-20-2023 Note [place] [facility] - [facility] Subjective Inez Juarez is a 83 y.o. year old female patient being seen for 6 month F/U Shortness of Breath, Fatigue, and Follow-up Patient Active Problem List Diagnosis Atrial fibrillation (CMS/HCC) Essential hypertension Hyperlipidemia Gastroesophageal reflux disease Mitral valve disorder Pulmonary hypertension (CMS/HCC) Renal failure syndrome CHF (congestive heart failure) (CMS/HCC) Chronic kidney disease Family History Problem Relation Name Age of Onset Hypertension Mother Coronary artery disease Father Hypertension Father Social History Tobacco Use Smoking status: Never Smokeless tobacco: Never Substance Use Topics Alcohol use: Not Currently HPI Inez is a 83-year-old woman who is seen in follow up on diastolic heart failure, atrial fibrillation (on coumadin followed by Dr Rizvi's office) and pulmonary hypertension. She has CKD3. At prior visit I stopped toprol xl and she had stopped amiodarone prior to that due severe symptomatic bradycardia. At visit of 09/26/2016 I had resumed toprol xl 25 mg daily and then reduced it to 12.5 mg daily due to bradycardia. She has done well with that. At visit of 04/29/2019 I increased hydralazine to 75 mg tid. I also increase furosemide to 60 mg daily. Her NTpro-BNP on 05/13/2019 normalized (1536 down from 2150). BMP 05/13/2019: Cr 1.8, BUN 30. - at baseline. Previously her echocardiogram showed continued severe elevation of the right-sided pressures. I increase her Lasix to 80 mg daily. BMP 11/09/2019 showed BUN 18, creatinine 1.65, potassium 4.1. She was then seen in follow up in January 2021 and an echocardiogram in April 2021 showed severe pulmonary hypertension with the right-sided enlargement and ventricular dysfunction. I proceeded with right heart catheterization on 06/02/2021 and this showed vasoreactive pulmonary hypertension. She was started on amlodipine 10 mg daily. A follow-up echocardiogram September 2021 showed severely elevated right-sided pressures. Right heart catheterization on 11/01/2021 showed moderate to severe pulmonary hypertension, normal filling pressures, preserved cardiopathy, index, significantly elevated transpulmonary gradient and pulmonary vascular resistance. TPG 28 mmHg, PVR 5.8 Wood units. PA 61/16 mean 36, pulmonary wedge pressure 8. She had a VQ scan that was negative. PFTs showed normal FEV1 over FVC, significantly reduced DLCO. At visit of 01/22/2022 I started her on sildenafil 20 mg 3 times daily. I reduced hydralazine to 25 mg 3 times daily. Blood testing was significant for elevated EVAN. At visit of 05/07/2022 I stopped hydralazine and referred her to rheumatology. I also started her on Letairis 5 mg once daily. After starting Letairis she developed significant shortness of breath and leg edema. She stopped it. Dr. Rizvi gave her spironolactone for few days. She reports that her symptoms resolved. She continues to be on sildenafil 20 mg 3 times daily and Lasix 80 mg daily. Also her renal function had worsened and Dr. Amanda wanted to proceed with renal ultrasound and referral to nephrology for possible biopsy. She says that she did not want to go down that route and prefers to not have another visit with rheumatology or nephrology. She has dyspnea on moderate exertion, WHO FC II. She has no chest pain. No syncope. She has bilateral mild lower extremity edema. She recently fell while asleep in bed and developed a large bruise over her right buttock. Review of Systems Cardiovascular: Positive for dyspnea on exertion and leg swelling. Negative for chest pain and palpitations. Objective Visit Vitals BP 96/54 (BP Location: Right arm, Patient Position: Sitting) Pulse 89 Wt 68.1 kg (150 lb 3.2 oz) SpO2 90% BMI 29.33 kg/m??? Smoking Status Never BSA 1.7 m??? Physical Exam Constitutional: Appearance: She is well-developed. She is not ill-appearing. Comments: Thin appearing HENT: Head: Normocephalic and atraumatic. Nose: Nose normal. Eyes: General: No scleral icterus. Pupils: Pupils are equal, round, and reactive to light. Neck: Thyroid: No thyromegaly. Vascular: No JVD. Cardiovascular: Rate and Rhythm: Normal rate. Rhythm irregularly irregular. Pulses: Radial pulses are 2+ on the right side and 2+ on the left side. Heart sounds: Murmur heard. Systolic (LLSB) murmur is present with a grade of 2/6. No friction rub. No gallop. Pulmonary: Effort: Pulmonary effort is normal. No respiratory distress. Breath sounds: Normal breath sounds. No wheezing or rales. Chest: Chest wall: No tenderness. Abdominal: General: Bowel sounds are normal. There is no distension. Palpations: Abdomen is soft. Tenderness: There is no abdominal tenderness. Musculoskeletal: General: No swelling. Cervical back: Neck supple. Right lower le+ Pitting Edema present. Left lower le+ Pitting Edema present. Comments: Large (more content not included)... [facility] Summary Purpose Family History No Family History Records FoundNo Family History Records FoundNo Family History Records FoundNo Family History Records Found Advance Directives No Advanced Directives Records FoundNo Advanced Directives Records FoundNo Advanced Directives Records FoundNo Advanced Directives Records Found Additional Source Comments INFORMATION SOURCE (unrecogn ized section and content) DATE CREATED AUTHOR 11/03/2021 [facility] DATE CREATED AUTHOR AUTHOR'S ORGANIZ ATION 07/05/2022 [facility] DATE CREATED AUTHOR AUTHOR'S ORGANIZ ATION 03/23/2023 [facility] DATE CREATED AUTHOR AUTHOR'S ORGANIZ ATION 10/31/2023 [facility] FOR RECORDS PERTAINING TO PATIENTS WHO ARE OR HAVE BEEN ENROLLED IN A CHEMICAL DEPENDENCY/SUBSTANCEABUSE PROGRAM, SOME INFORMATION MAY BE OMITTED. This clinical summary was aggregated from multiple sources. Caution should be exercised in using it in the provision of clinical care. This summary normalizes information from multiple sources, and as a consequence, information in this document may materially change the coding, format and clinical context of patient data. In addition, data may be omitted in some cases. CLINICAL DECISIONS SHOULD BE BASED ON THE PRIMARY CLINICAL RECORDS. [facility]. provides no warranty or guarantee of the accuracy or completeness of information in this document.
--- NOTE | 2023-12-05 14:59 | CA_ITS ---
Patient Name: FABY JUAREZ MR#: [id number] : 1940 Exam Date: 12/05/2023 Ordering Doctor: DR MITCH JC M.D. ECHOCARDIOGRAM REPORT PROCEDURE: CA ECHO DOPPLER COMPLETE INDICATIONS: Pulmonary hypertension COMPARISON: None. DESCRIPTION: COMPLETE ECHOCARDIOGRAM Real-time transthoracic echocardiography with 2D, M-mode, spectral and color flow Doppler performed. QUALITY: Technical quality was good. 59 , 140#, BSA 1.58 m2 LEFT VENTRICLE: Normal chamber size. Normal left ventricular wall thickness. Normal systolic function. LV EF: Normal left ventricular ejection fraction, (>55%). DIASTOLIC: Grade III diastolic dysfunction. ATRIAL SEPTUM: Visually appears intact. LEFT ATRIUM: Severe dilatation. RIGHT ATRIUM: Severe dilatation. RIGHT VENTRICLE: Moderate dilatation. Normal right ventricular systolic function. TRICUSPID VALVE: Normal mobility and thickness. No stenosis with mild regurgitation. Doppler studies reveal severely (>60) elevated right sided pressures. RVSP 85 mmHg MITRAL VALVE: Moderately thickened with normal mobility. No evidence of mitral valve stenosis. There is no mitral annular calcification. Mild mitral regurgitation. AORTIC VALVE: Normal trileaflet appearance. Mildly calcified aortic valve. Mildly diminished mobility. Doppler velocity suggest mild aortic valve stenosis. No aortic regurgitation. AORTIC ROOT: Normal diameter and appearance. PULMONIC VALVE: Normal thickness and mobility. No stenosis. Mild regurgitation. PERICARDIUM: No evidence of pericardial effusion. IVC: IVC is dilated (2.4 cm) with no collapse. PLEURA: CONCLUSION: 1. Normal left ventricular systolic function. LVEF is 55 to 60%. 2. Moderately dilated right ventricle with normal systolic function. 3. Severe biatrial dilatation. 4. Grade 3 diastolic dysfunction. 5. Mild mitral and tricuspid regurgitation. 6. Mild aortic valve stenosis. 7. Severely elevated right-sided pressures, RVSP is 85 mmHg. 8. No pericardial effusion. Adult Echocardiography Procedure Report Left Ventricle LVEDD (3.7 - 5.6 cm): 5.07 cm LVESD (2.2 - 4.0 cm): 2.38 cm LVIVS thickness (0.6 - 1.2 cm): 0.74 cm LVPW thickness (0.5 - 1.0 cm): 0.74 cm LVOT Max Gradient: 2.04 mm[Hg] LVOT Area (cm2): 0.71 m/s Peak Velocity (LVOT): 0.71 m/s Mean Velocity (LVOT): 0.47 m/s LVOT Diameter 2.09 cm Left Atrium LA Volume Index (2D A2C): 59.12 ml/m2 Left Atrium Systolic Dimension: 3.90 cm Mitral Valve MV E to A Ratio: 2.73, 3.08 Right Ventricle Aorta AO Root Diam: 2.82 cm Ascending Ao Diam: 2.04 cm Aortic Valve AoV Area (Peak Mark): 1.06 cm2, 1.08 cm2 AoV Area (VTI): 1.11 cm2, 1.13 cm2 Peak Velocity(Antegrade Flow): 2.27 m/s, 1.78 m/s, 1.81 m/s, 2.08 m/s, 2.32 m/s, 0.97 m/s Peak Gradient(Antegrade Flow): 20.65 mm[Hg], 12.69 mm[Hg], 13.17 mm[Hg], 17.27 mm[Hg], 21.46 mm[Hg], 3.76 mm[Hg] Mean Velocity(Antegrade Flow): 1.54 m/s, 1.06 m/s, 1.24 m/s, 1.32 m/s, 1.43 m/s, 0.57 m/s Mean Gradient(Antegrade Flow): 10.89 mm[Hg], 5.45 mm[Hg], 6.95 mm[Hg], 8.52 mm[Hg], 9.84 mm[Hg], 1.63 mm[Hg] Velocity Time Integral: 60.85 cm, 62.07 cm, 47.66 cm, 55.77 cm, 58.78 cm, 23.81 cm Tricuspid Valve Peak Velocity (Regurgitant Flow): 3.79 m/s, 3.62 m/s, 4.19 m/s Pulmonic Valve Mean Gradient: 2.41 mm[Hg] Mean Velocity: 0.73 m/s Peak Velocity: 1.07 m/s, 1.23 m/s Peak Gradient: 6.07 mm[Hg], 4.61 mm[Hg] Right Atrium Right Atrium Systolic Pressure: 123.71 ml, 123.71 ml Dictated by: Mitch Jc M.D. on 12/06/2023 at 20:03 Approved by: Mitch Jc M.D. on 12/06/2023 at 20:10
== END 2023-12-05 14:00 | disposition home or self-care (01) ==
LOC: CARD 13:59
PROVIDERS: PCP Family Medicine; Visit Provider Internal Medicine Interventional Cardiology
DX: I48.91 Unspecified atrial fibrillation (principal); I27.20 Pulmonary hypertension, unspecified
CPT/HCPCS: 36415; 85610; 93306

== ENCOUNTER 2023-12-05 14:02 | Outpatient (OUT) | payer MEDICARE, SELFPAY ==
--- OUTSIDE RECORDS SUMMARY | 2023-12-05 14:05 | XMS_ITS | CCD ---
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] Onset: 06-04-2022 Episodic Other [...] Range Facility Office Visiton 10-30-2023 Follow-up visit [id number] Inez Juarez 1940 F Date Provider Department Center 10/30/2023 JENN AMANDA BARBRA [place] Family History Problem Relation Age of Onset Hypertension Mother Coronary artery disease Father Hypertension Father Family Status - Relation Status Age at Mother Father Level of Service:08769 HI OFFICE/OUTPATIENT ESTABLISHED MOD MDM 30 MIN Normal [facility] HPon 10-22-2023 HP History Of Present Illness [...] Atrial fibrillation (CMS/HCC), CHF (congestive heart failure) (CMS/FORMERLY [facility]), Chronic kidney disease, GERD (gastroesophageal reflux disease), [...] Reviewed Relevant (more content not included)... Normal [facility] NURSNOTEon 10-22-2023 NURSNOTE RN educated pt on d/c instructions. RN encouraged pt to voice any questions or concerns. Pt verbalizes no questions or concerns at this time. Normal [facility] Office Visiton 05-20-2023 Follow-up visit [id number] Inez Juarez 1940 F Date Provider Department Center 05/20/2023 JENN AMANDA [facility] [place] Family History Problem Relation Age of Onset Hypertension Mother Coronary artery disease Father Hypertension Father Family Status - Relation Status Age at Mother Father Level of Service:65812 HI OFFICE/OUTPATIENT ESTABLISHED MOD MDM 30-39 MIN Reason for Visit and Comments: Shortness of Breath [283057] Fatigue [46] Follow-up [340343] Normal [facility] BNPon 03-22-2023 Natriuretic peptide B (Bld) [Mass/Vol] 1423.0 pg/mL Normal <=1,800.0 [facility] Comment on above: Performed By: #### B HANDKERCHIEF MAKER, CMP, TSH, LIPID #### [facility] [address] [address] [address] Reji Thomas CBC AUTO DIFFon 03-22-2023 BASO # 0.1 103/ul Normal 0.0-0.1 [facility] Comment on above: Performed By: #### B MP #### [facility] [address] [address] [address] Reji Thomas Basophils/100 WBC (Bld) 1.0 % Normal 0.2-2.0 [facility] Comment on above: Performed By: #### B MP #### [facility] [address] [address] [address] Reji Thomas EO # 0.2 103/ul Normal 0.0-0.7 [facility] Comment on above: Performed By: #### B MP #### [facility] [address] [address] [address] Reji Thomas Eosinophils/100 WBC (Bld) 3.3 % Normal 0.9-7.0 [facility] Comment on above: Performed By: #### B MP #### [facility] [address] [place] [address] Dr. Reji Thomas Erythrocyte distribution width (RBC) [Ratio] 15.4 % Critically high 11.0-15.0 [facility] Comment on above: Performed By: #### B MP #### [facility] [address] [place] [address] Dr. Reji Thomas Hematocrit (Bld) [Volume fraction] 35.2 % Critically low 36.0-48.0 [facility] Comment on above: Performed By: #### B MP #### [facility] [address] [place] [address] Dr. Reji Thomas Hemoglobin (Bld) [Mass/Vol] 11.4 g/dL Critically low 12.0-16.0 [facility] Comment on above: Performed By: #### B MP #### [facility] [address] [place] [address] Dr. Reji Thomas IG # 0.02 10e3/ul Normal 0.00-0.03 [facility] Comment on above: Performed By: #### B MP #### [facility] [address] [place] [address] Dr. Reji Thomas IG % 0.3 % Normal 0.0-0.5 [facility] Comment on above: Performed By: #### B MP #### [facility] [address] [place] [address] Dr. Reji Thomas LYMPH # 1.4 103/ul Normal 1.2-3.8 [facility] Comment on above: Performed By: #### B MP #### [facility] [address] [place] [address] Dr. Reji Thomas Lymphocytes/100 WBC (Bld) 22.6 % Normal 20.5-60.0 [facility] Comment on above: Performed By: #### B MP #### [facility] [address] [place] [address] Dr. Reji Thomas MANUAL DIFF REQ NO Normal [facility] Comment on above: Performed By: #### B MP #### [facility] [address] [place] [address] Dr. Reji Thomas MCH (RBC) [Entitic mass] 27.0 pg Normal 26.7-34.0 [facility] Comment on above: Performed By: #### B MP #### [facility] [address] [place] [address] Dr. Reji Thomas MCHC (RBC) [Mass/Vol] 32.4 g/dL Normal 29.9-35.2 [facility] Comment on above: Performed By: #### B MP #### [facility] [address] [place] [address] Dr. Reji Thomas MCV (RBC) [Entitic vol] 83.2 fL Normal 81.0-99.0 [facility] Comment on above: Performed By: #### B MP #### [facility] [address] [place] [address] Dr. Reji Thomas MONO # 0.5 103/ul Normal 0.3-0.8 [facility] Comment on above: Performed By: #### B MP #### [facility] [address] [place] [address] Dr. Reji Thomas Monocytes/100 WBC (Bld) 8.5 % Normal 1.7-12.0 [facility] Comment on above: Performed By: #### B MP #### [facility] [address] [place] [address] Dr. Reji Thomas NEUT # 4.0 103/ul Normal 1.4-6.5 [facility] Comment on above: Performed By: #### B MP #### [facility] [address] [place] [address] Dr. Reji Thomas Neutrophils/100 WBC (Bld) 64.3 % Normal 43.0-75.0 [facility] Comment on above: Performed By: #### B MP #### [facility] [address] [place] [address] Dr. Reji Thomas Platelet mean volume (Bld) [Entitic vol] 8.9 fL Critically low 9.5-13.5 [facility] Comment on above: Performed By: #### B MP #### [facility] [address] [address] [address] Reji Thomas PLT 226 103/ul Normal 150-450 [facility] Comment on above: Performed By: #### B MP #### [facility] [address] [place] [address] Dr. Reji Thomas RBC 4.23 106/ul Normal 4.20-5.40 [facility] Comment on above: Performed By: #### B MP #### [facility] [address] [place] [address] Dr. Reji Thomas WBC 6.3 103/ul Normal 4.0-11.0 [facility] Comment on above: Performed By: #### B MP #### [facility] [address] [place] [address] Dr. Reji Thomas FREE THYROXINE INDEX T7on FTI 2.40 Normal 1.30-4.50 [facility] Comment on above: Performed By: #### B HANDKERCHIEF MAKER, CMP, TSH, LIPID #### [facility] [address] [place] [address] Dr. Reji Thomas T3U 32.0 % Normal 30.0-39.0 [facility] Comment on above: Performed By: #### B HANDKERCHIEF MAKER, CMP, TSH, LIPID #### [facility] [address] [place] [address] Dr. Reji Thomas T4 [Mass/Vol] 7.50 ug/dL Normal 4.80-13.90 [facility] Comment on above: Performed By: #### B HANDKERCHIEF MAKER, CMP, TSH, LIPID #### [facility] [address] [place] [address] Dr. Reji Thomas GLYCOHEMOGLOBIN A1Con 2022 ADA RECOMMENDATION SEE BELOW Normal [facility] Comment on above: Result Comment: ADA RECOMMENDED LIMIT 4.0 - 6.0 ADA THERAPEUTIC TARGET < 7.0 ACTION SUGGESTED > 7.0 Performed By: #### B HANDKERCHIEF MAKER, CMP, TSH, LIPID #### [facility] [address] [place] [address] Dr. Reji Thomas Glucose [Mass/Vol] 97 mg/dL Normal [facility] Comment on above: Performed By: #### B HANDKERCHIEF MAKER, CMP, TSH, LIPID #### [facility] [address] [address] [address] Reji Thomas HbA1c (Bld) [Mass fraction] 5.0 % Normal 4.5-6.2 [facility] Comment on above: Performed By: #### B HANDKERCHIEF MAKER, CMP, TSH, LIPID #### [facility] [address] [address] [address] Reji Thomas IRONon 03-22-2023 Iron [Mass/Vol] 47.0 ug/dL Critically low 50.0-170.0 [facility] Comment on above: Performed By: #### B HANDKERCHIEF MAKER, CMP, TSH, LIPID #### [facility] [address] [place] [address] Dr. Reji Thomas LIPID PROFILEon 03-22-2023 CHOL-HDL RATIO NORM SEE BELOW Normal [facility] Comment on above: Result Comment: 3.3 - 4.4 LOW RISK 4.4 - 7.1 AVERAGE RISK 7.1 - 11.0 MODERATE RISK >11.0 HIGH RISK Performed By: #### M G, TSH, LIPID, T7, CMP, BNP #### [facility] [address] [place] [address] Dr. Reji Thomas Cholesterol [Mass/Vol] 188 mg/dL Normal <=200 [facility] Comment on above: Performed By: #### M G, TSH, LIPID, T7, CMP, BNP #### [facility] [address] [address] [address] Reji Thomas Cholesterol in HDL [Mass/Vol] 53 mg/dL Normal 40-60 [facility] Comment on above: Performed By: #### M G, TSH, LIPID, T7, CMP, BNP #### [facility] [address] [place] [address] Dr. Reji Thomas Cholesterol in LDL [Mass/Vol] 111.6 mg/dL Normal [facility] Comment on above: Performed By: #### M G, TSH, LIPID, T7, CMP, BNP #### [facility] [address] [place] [address] Dr. Reji Thomas Cholesterol.total/Ch olesterol in HDL [Mass ratio] 3.5 {ratio} Normal [facility] Comment on above: Performed By: #### M G, TSH, LIPID, T7, CMP, BNP #### [facility] [address] [address] [address] Reji Thomas HDL NORMAL > or = 60 mg/dl - LOW CARDIOVASCULAR RISK <40 mg/dl - HIGH CARDIOVASCULAR RISK Normal [facility] Comment on above: Performed By: #### M G, TSH, LIPID, T7, CMP, BNP #### [facility] [address] [address] [address] Reji Thomas LDL CALC NORMAL SEE BELOW Normal [facility] Comment on above: Result Comment: <100 mg/dl OPTIMAL 100 - 129 mg/dl NEAR OR ABOVE OPTIMAL 130 - 159 mg/dl BORDERLINE HIGH 160 - 189 mg/dl HIGH >190 mg/dl VERY HIGH Performed By: #### M G, TSH, LIPID, T7, CMP, BNP #### [facility] [address] [address] [address] Reji Thomas Triglyceride [Mass/Vol] 117 mg/dL Normal <=150 [facility] Comment on above: Performed By: #### M G, TSH, LIPID, T7, CMP, BNP #### [facility] [address] [address] [address] Reji Thomas VLDL CALC 23.4 mg/dL Normal [facility] Comment on above: Performed By: #### M G, TSH, LIPID, T7, CMP, BNP #### [facility] [address] [address] [address] Reji Thomas MAGNESIUMon 03-22-2023 Magnesium [Mass/Vol] 2.4 mg/dL Normal 1.8-2.4 [facility] Comment on above: Performed By: #### B HANDKERCHIEF MAKER, CMP, TSH, LIPID #### [facility] [address] [address] [address] Reji Thomas PROF 14(COMP METB)on 023 Albumin [Mass/Vol] 3.4 g/dL Normal 3.4-5.0 [facility] Comment on above: Performed By: #### M G, TSH, LIPID, T7, CMP, BNP #### [facility] [address] [address] [address] Reji Thomas Albumin/Globulin [Mass ratio] 0.8 {ratio} Normal [facility] Comment on above: Performed By: #### M G, TSH, LIPID, T7, CMP, BNP #### [facility] [address] [place] [address] Dr. Reji Thomas ALP [Catalytic activity/Vol] 61 U/L Normal 46-116 [facility] Comment on above: Performed By: #### M G, TSH, LIPID, T7, CMP, BNP #### [facility] [address] [place] [address] Dr. Reji Thomas ALT [Catalytic activity/Vol] 15 U/L Normal 14-59 [facility] Comment on above: Performed By: #### M G, TSH, LIPID, T7, CMP, BNP #### [facility] [address] [place] [address] Dr. Reji Thomas Anion gap [Moles/Vol] 13.1 mmol/L Normal [facility] Comment on above: Performed By: #### M G, TSH, LIPID, T7, CMP, BNP #### [facility] [address] [place] [address] Dr. Reji Thomas AST [Catalytic activity/Vol] 13 U/L Critically low 15-37 [facility] Comment on above: Performed By: #### M G, TSH, LIPID, T7, CMP, BNP #### [facility] [address] [place] [address] Dr. Reji Thomas Bilirubin [Mass/Vol] 0.4 mg/dL Normal 0.2-1.0 [facility] Comment on above: Performed By: #### M G, TSH, LIPID, T7, CMP, BNP #### [facility] [address] [place] [address] Dr. Reji Thomas Calcium [Mass/Vol] 8.5 mg/dL Normal 8.5-10.1 [facility] Comment on above: Performed By: #### M G, TSH, LIPID, T7, CMP, BNP #### [facility] [address] [address] [address] Reji Thomas Chloride [Moles/Vol] 106 mmol/L Normal 98-107 [facility] Comment on above: Performed By: #### M G, TSH, LIPID, T7, CMP, BNP #### [facility] [address] [address] [address] Reji Thomas CO2 [Moles/Vol] 27.6 mmol/L Normal 21.0-32.0 [facility] Comment on above: Performed By: #### M G, TSH, LIPID, T7, CMP, BNP #### [facility] [address] [place] [address] Dr. Reji Thomas Creatinine [Mass/Vol] 2.32 mg/dL Critically high 0.55-1.02 [facility] Comment on above: Performed By: #### M G, TSH, LIPID, T7, CMP, BNP #### [facility] [address] [place] [address] Dr. Reji Thomas EGFR-AF MARTINIQUAIS 24 mL/min/1.73m2 Critically low >=60 [facility] Comment on above: Performed By: #### M G, TSH, LIPID, T7, CMP, BNP #### [facility] [address] [place] [address] Dr. Reji Thomas EGFR-NON AF MARTINIQUAIS 20 mL/min/1.73m2 Critically low >=60 [facility] Comment on above: Performed By: #### M G, TSH, LIPID, T7, CMP, BNP #### [facility] [address] [place] [address] Dr. Reji Thomas Globulin (S) [Mass/Vol] 4.3 g/dL Normal [facility] Comment on above: Performed By: #### M G, TSH, LIPID, T7, CMP, BNP #### [facility] [address] [place] [address] Dr. Reji Thomas Glucose [Mass/Vol] 88 mg/dL Normal 74-106 [facility] Comment on above: Performed By: #### M G, TSH, LIPID, T7, CMP, BNP #### [facility] [address] [address] [address] Reji Thomas Potassium [Moles/Vol] 4.7 mmol/L Normal 3.5-5.1 [facility] Comment on above: Performed By: #### M G, TSH, LIPID, T7, CMP, BNP #### [facility] [address] [address] [address] Reji Thomas Protein [Mass/Vol] 7.7 g/dL Normal 6.4-8.2 [facility] Comment on above: Performed By: #### M G, TSH, LIPID, T7, CMP, BNP #### [facility] [address] [place] [address] Dr. Reji Thomas Sodium [Moles/Vol] 142 mmol/L Normal 136-145 [facility] Comment on above: Performed By: #### M G, TSH, LIPID, T7, CMP, BNP #### [facility] [address] [place] [address] Dr. Reji Thomsa Urea nitrogen [Mass/Vol] 38.0 mg/dL Critically high 7.0-18.0 [facility] Comment on above: Performed By: #### M G, TSH, LIPID, T7, CMP, BNP #### [facility] [address] [place] [address] Dr. Reji Thomas Urea nitrogen/Creatinine [Mass ratio] 16.4 mg/mg Normal [facility] Comment on above: Performed By: #### M G, TSH, LIPID, T7, CMP, BNP #### [facility] [address] [place] [address] Dr. Reji Thomas PROTIMEon 03-22-2023 INR Coag (PPP) [Relative time] 1.98 {INR} Normal [facility] Comment on above: Performed By: #### P T #### [facility] [address] [place] [address] Dr. Reji Thomas INR GUIDELINES SEE BELOW Normal [facility] Comment on above: Result Comment: SHY RED INR: 2.0 - 3.0 CONDITIONS NOT LISTED BELOW 2.5 - 3.5 FOR PROSTHETIC HEART VALVE REPLACEMENT 2.5 - 3.5 RECURRENT THROMBOSIS Performed By: #### P T #### [facility] [address] [place] [address] Dr. Reji Thomas PT Coag (PPP) [Time] 20.2 s Critically high 9.0-11.6 [facility] Comment on above: Performed By: #### P T #### [facility] [address] [place] [address] Dr. Reji Thomas TSHon 03-22-2023 TSH 2.265 uIU/mL Normal 0.358-3.740 [facility] Comment on above: Performed By: #### B HANDKERCHIEF MAKER, CMP, TSH, LIPID #### [facility] [address] [place] [address] Dr. Reji Thomas VITAMIN D 25 OHon 03-22-2023 VIT D 25-OH 53.1 ng/mL Normal [facility] Comment on above: Performed By: #### B MP #### [facility] [address] [place] [address] Dr. Reji Thomas VIT D RANGES SEE BELOW Normal [facility] Comment on above: Result Comment: <20 ng/mL Vit D deficient 20 - <30 ng/mL Vit D insufficient 30 - 100 ng/mL Vit D sufficient >100 ng/mL Potential Toxicity Performed By: #### B MP #### [facility] [address] [place] [address] Dr. Reji Thomas PROTIMEon 02-22-2023 INR Coag (PPP) [Relative time] 2.22 {INR} Normal [facility] Comment on above: Performed By: #### B HANDKERCHIEF MAKER, CMP, TSH, LIPID #### [facility] [address] [place] [address] Dr. Reji Thomas INR GUIDELINES SEE BELOW Normal [facility] Comment on above: Result Comment: SHY RED INR: 2.0 - 3.0 CONDITIONS NOT LISTED BELOW 2.5 - 3.5 FOR PROSTHETIC HEART VALVE REPLACEMENT 2.5 - 3.5 RECURRENT THROMBOSIS Performed By: #### B HANDKERCHIEF MAKER, CMP, TSH, LIPID #### [facility] [address] [place], [place] [id number] Dr. Reji Thomas PT Coag (PPP) [Time] 22.5 s Critically high 9.0-11.6 [facility] Comment on above: Performed By: #### B HANDKERCHIEF MAKER, CMP, TSH, LIPID #### [facility] [address] [place] [address] Dr. Reji Thomas PROTIMEon 01-03-2023 INR Coag (PPP) [Relative time] 2.53 {INR} Normal [facility] Comment on above: Performed By: #### B MP #### [facility] [address] [place] [address] Dr. Reji Thomas INR GUIDELINES SEE BELOW Normal [facility] Comment on above: Result Comment: SHY RED INR: 2.0 - 3.0 CONDITIONS NOT LISTED BELOW 2.5 - 3.5 FOR PROSTHETIC HEART VALVE REPLACEMENT 2.5 - 3.5 RECURRENT THROMBOSIS Performed By: #### B MP #### [facility] [address] [place] [address] Dr. Reji Thomas PT Coag (PPP) [Time] 25.4 s Critically high 9.0-11.6 [facility] Comment on above: Performed By: #### B MP #### [facility] [address] [place] [address] Dr. Reji Thomas PROTIMEon 11-23-2022 INR Coag (PPP) [Relative time] 1.71 {INR} Normal [facility] Comment on above: Performed By: #### B HANDKERCHIEF MAKER, CMP, TSH, LIPID #### [facility] [address] [place] [address] Dr. Reji Thomas INR GUIDELINES SEE BELOW Normal [facility] Comment on above: Result Comment: SHY RED INR: 2.0 - 3.0 CONDITIONS NOT LISTED BELOW 2.5 - 3.5 FOR PROSTHETIC HEART VALVE REPLACEMENT 2.5 - 3.5 RECURRENT THROMBOSIS Performed By: #### B HANDKERCHIEF MAKER, CMP, TSH, LIPID #### [facility] [address] [place] [address] Dr. Reji Thomas PT Coag (PPP) [Time] 17.6 s Critically high 9.0-11.6 [facility] Comment on above: Performed By: #### B HANDKERCHIEF MAKER, CMP, TSH, LIPID #### [facility] [address] [place] [address] Dr. Reji Thomas PROTIMEon 10-10-2022 INR Coag (PPP) [Relative time] 2.52 {INR} Normal [facility] Comment on above: Performed By: #### B HANDKERCHIEF MAKER, CMP, TSH, LIPID #### [facility] [address] [place] [address] Dr. Reji Thomas INR GUIDELINES SEE BELOW Normal [facility] Comment on above: Result Comment: SHY RED INR: 2.0 - 3.0 CONDITIONS NOT LISTED BELOW 2.5 - 3.5 FOR PROSTHETIC HEART VALVE REPLACEMENT 2.5 - 3.5 RECURRENT THROMBOSIS Performed By: #### B HANDKERCHIEF MAKER, CMP, TSH, LIPID #### [facility] [address] [place] [address] Dr. Reji Thomas PT Coag (PPP) [Time] 25.6 s Critically high 9.0-11.6 [facility] Comment on above: Performed By: #### B HANDKERCHIEF MAKER, CMP, TSH, LIPID #### [facility] [address] [place] [address] Dr. Reji Thomas PROTIMEon 09-05-2022 INR Coag (PPP) [Relative time] 2.03 {INR} Normal [facility] Comment on above: Performed By: #### B HANDKERCHIEF MAKER, CMP, TSH, LIPID #### [facility] [address] [place] [address] Dr. Reji Thomas INR GUIDELINES SEE BELOW Normal [facility] Comment on above: Result Comment: SHY RED INR: 2.0 - 3.0 CONDITIONS NOT LISTED BELOW 2.5 - 3.5 FOR PROSTHETIC HEART VALVE REPLACEMENT 2.5 - 3.5 RECURRENT THROMBOSIS Performed By: #### B HANDKERCHIEF MAKER, CMP, TSH, LIPID #### [facility] [address] [place] [address] Dr. Reji Thomas PT Coag (PPP) [Time] 20.9 s Critically high 9.0-11.6 [facility] Comment on above: Performed By: #### B HANDKERCHIEF MAKER, CMP, TSH, LIPID #### [facility] [address] [place] [address] Dr. Reji Thomas BNPon 08-10-2022 Natriuretic peptide B (Bld) [Mass/Vol] 1162.0 pg/mL Normal <=1,800.0 [facility] Comment on above: Performed By: #### B MP, BNP #### [facility] [address] [place] [address] Dr. Reji Thomas PROF CHEM 8 (BAS METB)on Anion gap [Moles/Vol] 11.3 mmol/L Normal [facility] Comment on above: Performed By: #### B MP, BNP #### [facility] [address] [place] [address] Dr. Reji Thomas Calcium [Mass/Vol] 8.9 mg/dL Normal 8.5-10.1 [facility] Comment on above: Performed By: #### B MP, BNP #### [facility] [address] [place] [address] Dr. Reji Thomas Chloride [Moles/Vol] 103 mmol/L Normal 98-107 [facility] Comment on above: Performed By: #### B MP, BNP #### [facility] [address] [place] [address] Dr. Reji Thomas CO2 [Moles/Vol] 28.2 mmol/L Normal 21.0-32.0 [facility] Comment on above: Performed By: #### B MP, BNP #### [facility] [address] [place] [address] Dr. Reji Thomas Creatinine [Mass/Vol] 2.07 mg/dL Critically high 0.55-1.02 [facility] Comment on above: Performed By: #### B MP, BNP #### [facility] [address] [place] [address] Dr. Reji Thomas EGFR-AF MARTINIQUAIS 28 mL/min/1.73m2 Critically low >=60 [facility] Comment on above: Performed By: #### B MP, BNP #### [facility] [address] [place] [address] Dr. Reji Thomas EGFR-NON AF MARTINIQUAIS 23 mL/min/1.73m2 Critically low >=60 [facility] Comment on above: Performed By: #### B MP, BNP #### [facility] [address] [address] [address] Reji Thomas Glucose [Mass/Vol] 88 mg/dL Normal 74-106 [facility] Comment on above: Performed By: #### B MP, BNP #### [facility] [address] [address] [address] Reji Thomas Potassium [Moles/Vol] 4.5 mmol/L Normal 3.5-5.1 [facility] Comment on above: Performed By: #### B MP, BNP #### [facility] [address] [place] [address] Dr. Reji Thomas Sodium [Moles/Vol] 138 mmol/L Normal 136-145 [facility] Comment on above: Performed By: #### B MP, BNP #### [facility] [address] [place] [address] Dr. Reji Thomas Urea nitrogen [Mass/Vol] 35.0 mg/dL Critically high 7.0-18.0 [facility] Comment on above: Performed By: #### B MP, BNP #### [facility] [address] [place] [address] Dr. Reji Thomas Urea nitrogen/Creatinine [Mass ratio] 16.9 mg/mg Normal [facility] Comment on above: Performed By: #### B MP, BNP #### [facility] [address] [place] [address] Dr. Reji Thomas PROTIMEon 08-09-2022 INR Coag (PPP) [Relative time] 2.04 {INR} Normal [facility] Comment on above: Performed By: #### B HANDKERCHIEF MAKER, CMP, TSH, LIPID #### [facility] [address] [place] [address] Dr. Reji Thomas INR GUIDELINES SEE BELOW Normal [facility] Comment on above: Result Comment: SHY RED INR: 2.0 - 3.0 CONDITIONS NOT LISTED BELOW 2.5 - 3.5 FOR PROSTHETIC HEART VALVE REPLACEMENT 2.5 - 3.5 RECURRENT THROMBOSIS Performed By: #### B HANDKERCHIEF MAKER, CMP, TSH, LIPID #### [facility] [address] [place] [address] Dr. Reji Thomas PT Coag (PPP) [Time] 21.0 s Critically high 9.0-11.6 [facility] Comment on above: Performed By: #### B HANDKERCHIEF MAKER, CMP, TSH, LIPID #### [facility] [address] [place] [address] Dr. Reji Thomas BNPon 07-09-2022 Natriuretic peptide B (Bld) [Mass/Vol] 2085.0 pg/mL Critically high <=1,800.0 [facility] Comment on above: Result Comment: CRIT ICAL CALLED TO OFFICE ON 07-10-22 AT 0850 BY AR Performed By: #### B HANDKERCHIEF MAKER, CMP, TSH, LIPID #### [facility] [address] [place] [address] Dr. Reji Thomas PROF CHEM 8 (BAS METB)on Anion gap [Moles/Vol] 13.7 mmol/L Normal [facility] Comment on above: Performed By: #### B HANDKERCHIEF MAKER, CMP, TSH, LIPID #### [facility] [address] [place] [address] Dr. Reji Thomas Calcium [Mass/Vol] 8.3 mg/dL Critically low 8.5-10.1 [facility] Comment on above: Performed By: #### B HANDKERCHIEF MAKER, CMP, TSH, LIPID #### [facility] [address] [place] [address] Dr. Reji Thomas Chloride [Moles/Vol] 104 mmol/L Normal 98-107 [facility] Comment on above: Performed By: #### B HANDKERCHIEF MAKER, CMP, TSH, LIPID #### [facility] [address] [place] [address] Dr. Reji Thomas CO2 [Moles/Vol] 26.6 mmol/L Normal 21.0-32.0 [facility] Comment on above: Performed By: #### B HANDKERCHIEF MAKER, CMP, TSH, LIPID #### [facility] [address] [address] [address] Reji Thomas Creatinine [Mass/Vol] 1.98 mg/dL Critically high 0.55-1.02 [facility] Comment on above: Performed By: #### B HANDKERCHIEF MAKER, CMP, TSH, LIPID #### [facility] [address] [address] [address] Reji Thomas EGFR-AF MARTINIQUAIS 29 mL/min/1.73m2 Critically low >=60 [facility] Comment on above: Performed By: #### B HANDKERCHIEF MAKER, CMP, TSH, LIPID #### [facility] [address] [address] [address] Reji Thomas EGFR-NON AF MARTINIQUAIS 24 mL/min/1.73m2 Critically low >=60 [facility] Comment on above: Performed By: #### B HANDKERCHIEF MAKER, CMP, TSH, LIPID #### [facility] [address] [place] [address] Dr. Reji Thomas Glucose [Mass/Vol] 116 mg/dL Critically high 74-106 [facility] Comment on above: Performed By: #### B HANDKERCHIEF MAKER, CMP, TSH, LIPID #### [facility] [address] [address] [address] Reji Thomas Potassium [Moles/Vol] 4.3 mmol/L Normal 3.5-5.1 [facility] Comment on above: Performed By: #### B HANDKERCHIEF MAKER, CMP, TSH, LIPID #### [facility] [address] [address] [address] Reji Thomas Sodium [Moles/Vol] 140 mmol/L Normal 136-145 [facility] Comment on above: Performed By: #### B HANDKERCHIEF MAKER, CMP, TSH, LIPID #### [facility] [address] [address] [address] Reji Thomas Urea nitrogen [Mass/Vol] 35.0 mg/dL Critically high 7.0-18.0 [facility] Comment on above: Performed By: #### B HANDKERCHIEF MAKER, CMP, TSH, LIPID #### [facility] [address] [address] [address] Reji Thomas Urea nitrogen/Creatinine [Mass ratio] 17.7 mg/mg Normal [facility] Comment on above: Performed By: #### B HANDKERCHIEF MAKER, CMP, TSH, LIPID #### [facility] [address] [address] [address] Reji Thomas PROTIMEon 07-09-2022 INR Coag (PPP) [Relative time] 2.99 {INR} Normal [facility] Comment on above: Performed By: #### B HANDKERCHIEF MAKER, CMP, TSH, LIPID #### [facility] [address] [address] [address] Reji Thomas INR GUIDELINES SEE BELOW Normal [facility] Comment on above: Result Comment: SHY RED INR: 2.0 - 3.0 CONDITIONS NOT LISTED BELOW 2.5 - 3.5 FOR PROSTHETIC HEART VALVE REPLACEMENT 2.5 - 3.5 RECURRENT THROMBOSIS Performed By: #### B HANDKERCHIEF MAKER, CMP, TSH, LIPID #### [facility] [address] [address] [address] Reji Thomas PT Coag (PPP) [Time] 30.1 s Critically high 9.0-11.6 [facility] Comment on above: Performed By: #### B HANDKERCHIEF MAKER, CMP, TSH, LIPID #### [facility] [address] [address] [address] Reji Thomas US KIDNEYSon 07-06-2022 US [...] SIGRID RICHMOND Date: 2022-07-06 13:31 Normal [facility] Antinuclear Antibodieson 06-19-2022 Antinuclear Abs, IFA Positive Critically abnormal . [facility] Comment on above: Result Comment: Nega tive <1:80 Borderline 1:80 Positive >1:80 Performed By: #### C UU, ADDONUAPLUS #### [facility] [address] [place] [address] #### C3, C4, CH50 #### [facility] , Homogeneous Pattern 1:320 High . [facility] Comment on above: Result Comment: ICAP nomenclature: [id number] Performed By: #### C UU, ADDONUAPLUS #### [facility] [address] [place] [address] #### C3, C4, CH50 #### [facility] , Note 1 Normal . [facility] Comment on above: Result Comment: For more [...] titers Nucleosomes, Histones Drug-induced SLE Speckled Sm, BUILDING CARPENTER, SCL-70, SLE,MCTD,PSS (diffuse form), SS-A/SS-B Sjogrens Nucleolar SCL-70, PM-1/SCL High titers Scleroderma, PM/DM Centromere Centromere PSS (limited form) w/Crest syndrome variable Nuclear Dot Sp100,[id number] Primary Biliary Cirrhosis Nuclear GP210, Primary Biliary Cirrhosis Membrane eleonora A,B,C Performed at: - [facility] [id number] Sizing End Bander: Demarcus Lawton PhD, Phone: [phone] Performed By: #### MIKY GOMEZ #### [address] [address] [facility] #### C3, C4, CH50 #### [facility] , Anti-RNPon 06-19-2022 Anti-BUILDING CARPENTER 0.4 Normal 0.0-0.9 [facility] Comment on above: Result Comment: Perf ormed at: [address] [id number] Sizing End Bander: Demarcus Lawton PhD, Phone: [phone] Performed By: #### C UU, ADDONUAPLUS #### [address] #### C3, C4, CH50 #### [facility] , C-Reactive Proteinon 022 C-Reactive Protein 2.0 mg/dL High 0.0-1.0 [facility] Comment on above: Result Comment: PERF ORMED BY: [place] [address] PATHOLOGIST INVESTIGATOR [employer] RADHA BULLARD M.D. Performed By: #### C UU, ADDONUAPLUS #### [address] #### C3, C4, CH50 #### [facility] , Complement C3on 06-19-2022 Complement C3 167 mg/dL Normal 82-167 [facility] Comment on above: Result Comment: Perf ormed at: [address] [id number] Sizing End Bander: Demarcus Lawton PhD, Phone: [phone] Performed By: #### C UU, ADDONUAPLUS #### [address] #### C3, C4, CH50 #### [facility] , Complement C4on 06-19-2022 Complement C4 37 mg/dL Normal 12-38 [facility] Comment on above: Performed By: #### C UU, ADDONUAPLUS #### [address] [id number] [place] #### C3, C4, CH50 #### [facility] , Complement Total (CH50)on Complement Total (CH50) >60 Normal >41 [facility] Comment on above: Result Comment: Age Male [...] determine out of range values. Performed at: [facility] [id number] Sizing End Bander: Demarcus Lawton PhD, Phone: [phone] PERFORMED BY: [place] [address] PATHOLOGIST INVESTIGATOR [employer] RADHA BULLARD M.D. Performed By: #### C UU, ADDONUAPLUS #### [address] #### C3, C4, CH50 #### [facility] , Complete Blood Count Auto Di ffon 06-19-2022 Basophils (Bld) [#/Vol] 0.1 10*3/uL Normal 0.0-0.2 [facility] Comment on above: Performed By: #### H EPATIC, CBC, ESR, CRP, CREAT, CK #### [place] [address] [place] #### RNA POLYMR, ANTI TH TO, EVAN, U3 BUILDING CARPENTER, ANTIR, PM-SCL ABS #### [facility] , Basophils/100 WBC (Bld) 0.9 % Normal . [facility] Comment on above: Performed By: #### H EPATIC, CBC, ESR, CRP, CREAT, CK #### [place] [address] [place] #### RNA POLYMR, ANTI TH TO, EVAN, U3 BUILDING CARPENTER, ANTIR, PM-SCL ABS #### [facility] , Eosinophils (Bld) [#/Vol] 0.5 10*3/uL High 0.0-0.45 [facility] Comment on above: Performed By: #### H EPATIC, CBC, ESR, CRP, CREAT, CK #### [place] [address] [place] #### RNA POLYMR, ANTI TH TO, EVAN, U3 BUILDING CARPENTER, ANTIR, PM-SCL ABS #### [facility] , Eosinophils/100 WBC (Bld) 8.6 % Normal . [facility] Comment on above: Performed By: #### H EPATIC, CBC, ESR, CRP, CREAT, CK #### [place] [address] [place] #### RNA POLYMR, ANTI TH TO, EVAN, U3 BUILDING CARPENTER, ANTIR, PM-SCL ABS #### [facility] , Erythrocyte distribution width (RBC) [Ratio] 19.6 % High 11.9-15.3 [facility] Comment on above: Performed By: #### H EPATIC, CBC, ESR, CRP, CREAT, CK #### [place] [address] [place] #### RNA POLYMR, ANTI TH TO, EVAN, U3 BUILDING CARPENTER, ANTIR, PM-SCL ABS #### [facility] , Hematocrit (Bld) [Volume fraction] 33.8 % Low 34.0-46.4 [facility] Comment on above: Performed By: #### H EPATIC, CBC, ESR, CRP, CREAT, CK #### [facility] [address] [place] [address] [place] #### RNA POLYMR, ANTI TH TO, EVAN, U3 BUILDING CARPENTER, ANTIR, PM-SCL ABS #### [facility] , Hemoglobin (Bld) [Mass/Vol] 10.9 g/dL Low 11.8-15.4 [facility] Comment on above: Performed By: #### H EPATIC, CBC, ESR, CRP, CREAT, CK #### [place] [address] [place] #### RNA POLYMR, ANTI TH TO, EVAN, U3 BUILDING CARPENTER, ANTIR, PM-SCL ABS #### [facility] , Lymphocytes (Bld) [#/Vol] 1.1 10*3/uL Normal 1.00-4.8 [facility] Comment on above: Performed By: #### H EPATIC, CBC, ESR, CRP, CREAT, CK #### [place] [address] [place] #### RNA POLYMR, ANTI TH TO, EVAN, U3 BUILDING CARPENTER, ANTIR, PM-SCL ABS #### [facility] , Lymphocytes/100 WBC (Bld) 17.8 % Normal . [facility] Comment on above: Performed By: #### H EPATIC, CBC, ESR, CRP, CREAT, CK #### [place] [address] [place] #### RNA POLYMR, ANTI TH TO, EVAN, U3 BUILDING CARPENTER, ANTIR, PM-SCL ABS #### [facility] , MCH (RBC) [Entitic mass] 26.4 pg Normal 24.7-34.3 [facility] Comment on above: Performed By: #### H EPATIC, CBC, ESR, CRP, CREAT, CK #### [place] [address] [place] #### RNA POLYMR, ANTI TH TO, EVAN, U3 BUILDING CARPENTER, ANTIR, PM-SCL ABS #### [facility] , MCV (RBC) [Entitic vol] 81.8 fL Normal 80-100 [facility] Comment on above: Performed By: #### H EPATIC, CBC, ESR, CRP, CREAT, CK #### [place] [address] [place] #### RNA POLYMR, ANTI TH TO, EVAN, U3 BUILDING CARPENTER, ANTIR, PM-SCL ABS #### [facility] , Mean Corpuscular HGB Conc 32.3 g/dL Normal 32.0-35.0 [facility] Comment on above: Performed By: #### H EPATIC, CBC, ESR, CRP, CREAT, CK #### [facility] [address] [place] [address] #### RNA POLYMR, ANTI TH TO, EVAN, U3 BUILDING CARPENTER, ANTIR, PM-SCL ABS #### [facility] , Monocytes (Bld) [#/Vol] 0.4 10*3/uL Normal 0.0-0.8 [facility] Comment on above: Performed By: #### H EPATIC, CBC, ESR, CRP, CREAT, CK #### [address] #### RNA POLYMR, ANTI TH TO, EVAN, U3 BUILDING CARPENTER, ANTIR, PM-SCL ABS #### [facility] , Monocytes/100 WBC (Bld) 7.4 % Normal . [facility] Comment on above: Performed By: #### H EPATIC, CBC, ESR, CRP, CREAT, CK #### [place] [address] [place] #### RNA POLYMR, ANTI TH TO, EVAN, U3 BUILDING CARPENTER, ANTIR, PM-SCL ABS #### [facility] , Neutrophils (Bld) [#/Vol] 3.9 10*3/uL Normal 1.8-7.7 [facility] Comment on above: Performed By: #### H EPATIC, CBC, ESR, CRP, CREAT, CK #### [facility] [address] [place] [address] [place] #### RNA POLYMR, ANTI TH TO, EVAN, U3 BUILDING CARPENTER, ANTIR, PM-SCL ABS #### [facility] , Neutrophils/100 WBC (Bld) 65.3 % Normal . [facility] Comment on above: Performed By: #### H EPATIC, CBC, ESR, CRP, CREAT, CK #### [facility] [address] [place] [address] [place] #### RNA POLYMR, ANTI TH TO, EVAN, U3 BUILDING CARPENTER, ANTIR, PM-SCL ABS #### [facility] , Nucleated RBC/100 WBC (Bld) [Ratio] 0.0 % Normal 0-0.5 [facility] Comment on above: Performed By: #### H EPATIC, CBC, ESR, CRP, CREAT, CK #### [place] [address] [place] #### RNA POLYMR, ANTI TH TO, EVAN, U3 BUILDING CARPENTER, ANTIR, PM-SCL ABS #### [facility] , Platelet mean volume (Bld) [Entitic vol] 7.2 fL Normal 6.3-10.7 [facility] Comment on above: Performed By: #### H EPATIC, CBC, ESR, CRP, CREAT, CK #### [place] [address] [place] #### RNA POLYMR, ANTI TH TO, EVAN, U3 BUILDING CARPENTER, ANTIR, PM-SCL ABS #### [facility] , Platelets (Bld) [#/Vol] 237 10*3/uL Normal 150-450 [facility] Comment on above: Performed By: #### H EPATIC, CBC, ESR, CRP, CREAT, CK #### [facility] [address] [place] [address] [place] #### RNA POLYMR, ANTI TH TO, EVAN, U3 BUILDING CARPENTER, ANTIR, PM-SCL ABS #### [facility] , RBC (Bld) [#/Vol] 4.14 10*6/uL Normal 3.60-5.00 [facility] Comment on above: Performed By: #### H EPATIC, CBC, ESR, CRP, CREAT, CK #### [place] [address] [place] #### RNA POLYMR, ANTI TH TO, EVAN, U3 BUILDING CARPENTER, ANTIR, PM-SCL ABS #### [facility] , WBC (Bld) [#/Vol] 6.0 10*3/uL Normal 4.5-11.0 [facility] Comment on above: Performed By: #### H EPATIC, CBC, ESR, CRP, CREAT, CK #### [facility] [address] [place] [address] #### RNA POLYMR, ANTI TH TO, EVAN, U3 BUILDING CARPENTER, ANTIR, PM-SCL ABS #### [facility] , Creatine Kinaseon 06-19-2022 CK [Catalytic activity/Vol] 38 U/L Normal 22-269 [facility] Comment on above: Result Comment: PERF ORMED BY: [place] [address] PATHOLOGIST INVESTIGATOR [employer] RADHA BULLARD M.D. Performed By: #### H EPATIC, CBC, ESR, CRP, CREAT, CK #### [address] #### RNA POLYMR, ANTI TH TO, EVAN, U3 BUILDING CARPENTER, ANTIR, PM-SCL ABS #### [facility] , Creatinineon 06-19-2022 Creatinine [Mass/Vol] 2.82 mg/dL High 0.44-1.03 [facility] Comment on above: Performed By: #### H EPATIC, CBC, ESR, CRP, CREAT, CK #### [address] #### RNA POLYMR, ANTI TH TO, EVAN, U3 BUILDING CARPENTER, ANTIR, PM-SCL ABS #### [facility] , Estimated GFR ( [place] 19 Normal [facility] Comment on above: Result Comment: GFR estimated reference range: According to KDOQI guidelines, <60 ml/min/1.73m2 is sufficient to diagnose a patient with chronic kidney disease. Performed By: #### H EPATIC, CBC, ESR, CRP, CREAT, CK #### [address] [place] [address] [place] #### RNA POLYMR, ANTI TH TO, EVAN, U3 BUILDING CARPENTER, ANTIR, PM-SCL ABS #### [facility] , Estimated GFR (Non- Am 16 Normal [facility] Comment on above: Performed By: #### H EPATIC, CBC, ESR, CRP, CREAT, CK #### [facility] [address] [place] [address] #### RNA POLYMR, ANTI TH TO, EVAN, U3 BUILDING CARPENTER, ANTIR, PM-SCL ABS #### [facility] , Dipstick and Microscopicon 0 06-19-2022 Appearance (U) Cloudy Critically abnormal Clear [facility] Comment on above: Order Comment: Name Collection Type:: Clean-Voided Midstream Performed By: #### C UU, ADDONUAPLUS #### [facility] [address] [place] [address] #### C3, C4, CH50 #### [facility] , Bacteria,Urine 1+ High None Seen [facility] Comment on above: Order Comment: Name Collection Type:: Clean-Voided Midstream Performed By: #### C UU, ADDONUAPLUS #### [address] #### C3, C4, CH50 #### [facility] , Bilirubin,Urine Negative Normal Negative [facility] Comment on above: Order Comment: Name Collection Type:: Clean-Voided Midstream Performed By: #### C UU, ADDONUAPLUS #### [address] #### C3, C4, CH50 #### [facility] , Color (U) Yellow Normal Yellow [facility] Comment on above: Order Comment: Name Collection Type:: Clean-Voided Midstream Performed By: #### C UU, ADDONUAPLUS #### [place] [address] [place] #### C3, C4, CH50 #### [facility] , Glucose Ql (U) Normal Normal Normal [facility] Comment on above: Order Comment: Name Collection Type:: Clean-Voided Midstream Performed By: #### C UU, ADDONUAPLUS #### [address] #### C3, C4, CH50 #### [facility] , Hyaline Casts,Urine 1-2 Normal 0-8 [facility] Comment on above: Order Comment: Name Collection Type:: Clean-Voided Midstream Result Comment: PERF ORMED BY: [place] [address] PATHOLOGIST INVESTIGATOR [employer] RADHA BULLARD M.D. Performed By: #### C UU, ADDONUAPLUS #### [address] #### C3, C4, CH50 #### [facility] , Ketones Ql (U) Negative Normal Negative [facility] Comment on above: Order Comment: Name Collection Type:: Clean-Voided Midstream Performed By: #### C UU, ADDONUAPLUS #### [address] #### C3, C4, CH50 #### [facility] , Leukocyte esterase Test strip Ql (U) 4+ High Negative [facility] Comment on above: Order Comment: Name Collection Type:: Clean-Voided Midstream Performed By: #### C UU, ADDONUAPLUS #### [facility] [address] [place] [address] #### C3, C4, CH50 #### [facility] , Nitrite,Urine Negative Normal Negative [facility] Comment on above: Order Comment: Name Collection Type:: Clean-Voided Midstream Performed By: #### C UU, ADDONUAPLUS #### [address] [place] [address] [place] #### C3, C4, CH50 #### [facility] , Occult Blood,Urine 1+ High Negative [facility] Comment on above: Order Comment: Name Collection Type:: Clean-Voided Midstream Performed By: #### C UU, ADDONUAPLUS #### [address] #### C3, C4, CH50 #### [facility] , pH (U) 6.5 [pH] Normal 5.0-9.0 [facility] Comment on above: Order Comment: Name Collection Type:: Clean-Voided Midstream Performed By: #### C UU, ADDONUAPLUS #### [address] #### C3, C4, CH50 #### [facility] , Protein,Urine Trace High Negative [facility] Comment on above: Order Comment: Name Collection Type:: Clean-Voided Midstream Performed By: #### C UU, ADDONUAPLUS #### [address] #### C3, C4, CH50 #### [facility] , RBC,Urine 1-2 Normal 0-4 [facility] Comment on above: Order Comment: Name Collection Type:: Clean-Voided Midstream Performed By: #### C UU, ADDONUAPLUS #### [address] #### C3, C4, CH50 #### [facility] , Specificy [place],Urine 1.010 Normal 1.001-1.030 [facility] Comment on above: Order Comment: Name Collection Type:: Clean-Voided Midstream Performed By: #### C UU, ADDONUAPLUS #### [address] #### C3, C4, CH50 #### [facility] , Squamous Epithelial Cell,Urine 5-9 High 0-2 [facility] Comment on above: Order Comment: Name Collection Type:: Clean-Voided Midstream Performed By: #### C UU, ADDONUAPLUS #### [facility] [address] [place] [address] #### C3, C4, CH50 #### [facility] , Urobilinogen,Urine Normal Normal Normal [facility] Comment on above: Order Comment: Name Collection Type:: Clean-Voided Midstream Performed By: #### C UU, ADDONUAPLUS #### [facility] [address] [place] [address] #### C3, C4, CH50 #### [facility] , WBC,Urine Innumerable High 0-4 [facility] Comment on above: Order Comment: Name Collection Type:: Clean-Voided Midstream Performed By: #### C UU, ADDONUAPLUS #### [facility] [address] [place] [address] #### C3, C4, CH50 #### [facility] , Erythrocyte Sedimentation Ra pratik 06-19-2022 ESR (Bld) [Velocity] 57 mm/h High 0-29 [facility] Comment on above: Result Comment: PERF ORMED BY: [place] [address] PATHOLOGIST INVESTIGATOR [employer] RADHA BULLARD M.D. Performed By: #### H EPATIC, CBC, ESR, CRP, CREAT, CK #### [facility] [address] [place] [address] #### RNA POLYMR, ANTI TH TO, EVAN, U3 BUILDING CARPENTER, ANTIR, PM-SCL ABS #### [facility] , Hepatic Panelon 06-19-2022 Albumin [Mass/Vol] 3.6 g/dL Normal 3.2-5.5 [facility] Comment on above: Performed By: #### H EPATIC, CBC, ESR, CRP, CREAT, CK #### [place] [address] [place] #### RNA POLYMR, ANTI TH TO, EVAN, U3 BUILDING CARPENTER, ANTIR, PM-SCL ABS #### [facility] , Albumin/Globulin [Mass ratio] 1.0 {ratio} Normal [facility] Comment on above: Performed By: #### H EPATIC, CBC, ESR, CRP, CREAT, CK #### [address] #### RNA POLYMR, ANTI TH TO, EVAN, U3 BUILDING CARPENTER, ANTIR, PM-SCL ABS #### [facility] , ALP [Catalytic activity/Vol] 68 U/L Normal 32- [facility] Comment on above: Performed By: #### H EPATIC, CBC, ESR, CRP, CREAT, CK #### [place] [address] [place] #### RNA POLYMR, ANTI TH TO, EVAN, U3 BUILDING CARPENTER, ANTIR, PM-SCL ABS #### [facility] , ALT [Catalytic activity/Vol] 9 U/L Low 10-60 [facility] Comment on above: Performed By: #### H EPATIC, CBC, ESR, CRP, CREAT, CK #### [place] [address] [place] #### RNA POLYMR, ANTI TH TO, EVAN, U3 BUILDING CARPENTER, ANTIR, PM-SCL ABS #### [facility] , AST [Catalytic activity/Vol] 15 U/L Normal 10- [facility] Comment on above: Performed By: #### H EPATIC, CBC, ESR, CRP, CREAT, CK #### [place] [address] [place] #### RNA POLYMR, ANTI TH TO, EVAN, U3 BUILDING CARPENTER, ANTIR, PM-SCL ABS #### [facility] , Bilirubin [Mass/Vol] 0.6 mg/dL Normal 0.3-1.2 [facility] Comment on above: Performed By: #### H EPATIC, CBC, ESR, CRP, CREAT, CK #### [place] [address] [place] #### RNA POLYMR, ANTI TH TO, EVAN, U3 BUILDING CARPENTER, ANTIR, PM-SCL ABS #### [facility] , Bilirubin,Indirect 0.4 mg/dL Normal [facility] Comment on above: Performed By: #### H EPATIC, CBC, ESR, CRP, CREAT, CK #### [place] [address] [place] #### RNA POLYMR, ANTI TH TO, EVAN, U3 BUILDING CARPENTER, ANTIR, PM-SCL ABS #### [facility] , Bilirubin.indirect [Mass/Vol] 0.2 mg/dL Normal 0.0-0.4 [facility] Comment on above: Performed By: #### H EPATIC, CBC, ESR, CRP, CREAT, CK #### [place] [address] [place] #### RNA POLYMR, ANTI TH TO, EVAN, U3 BUILDING CARPENTER, ANTIR, PM-SCL ABS #### [facility] , Globulin (S) [Mass/Vol] 3.5 g/dL Normal [facility] Comment on above: Performed By: #### H EPATIC, CBC, ESR, CRP, CREAT, CK #### [place] [address] [place] #### RNA POLYMR, ANTI TH TO, EVAN, U3 BUILDING CARPENTER, ANTIR, PM-SCL ABS #### [facility] , Protein [Mass/Vol] 7.1 g/dL Normal 6.1-7.9 [facility] Comment on above: Performed By: #### H EPATIC, CBC, ESR, CRP, CREAT, CK #### [place] [address] [place] #### RNA POLYMR, ANTI TH TO, EVAN, U3 BUILDING CARPENTER, ANTIR, PM-SCL ABS #### [facility] , PM-SCL Antibodieson 06-19-20 22 RAIZA PM-Scl Antibody <20 Normal <20 [facility] Comment on above: Result Comment: This test was developed and its performance characteristics determined by [facility]. It has not been cleared or approved by the Food and Drug Administration. Negative: <20 Weak Positive: 20 - 39 Moderate Positive: 40 - 80 Strong Positive: >80 Performed at: [facility] [address] [place] [id number] Sizing End Bander: Artemio Nair MD, Phone: [phone] Performed By: #### C UU, ADDONUAPLUS #### [address] #### C3, C4, CH50 #### [facility] , RNA Polymerase IIion 022 RNA Polymerase IIi <20 Normal <20 [facility] Comment on above: Result Comment: Nega tive: <20 Weak Positive: 20 - 39 Moderate Positive: 40 - 80 Strong Positive: >80 Performed at: [facility] [address] [place] [id number] Sizing End Bander: Artemio Nair MD, Phone: [phone] PERFORMED BY: [place] [address] PATHOLOGIST INVESTIGATOR [employer] RADHA BULLARD M.D. Performed By: #### C UU, ADDONUAPLUS #### [address] #### C3, C4, CH50 #### [facility] , Th/To Antibodyon 06-19-2022 Th/To Antibody Negative Normal Negative [facility] Comment on above: Result Comment: This test was developed and its performance characteristics determined by [facility]. It has not been cleared or approved by the Food and Drug Administration. Performed at: [facility] [address] [place] [address] [place] [id number] Sizing End Bander: Artemio Nair MD, Phone: [phone] Performed By: #### C UU, ADDONUAPLUS #### [address] #### C3, C4, CH50 #### [facility] , U3 Rnpon 06-19-2022 U3 Tail Board Worker Negative Normal Negative [facility] Comment on above: Result Comment: This test was developed and its performance characteristics determined by [facility]. It has not been cleared or approved by the Food and Drug Administration. Performed at: [facility] [employer] [address] [place], [place] [id number] Sizing End Bander: Artemio Nair MD, Phone: [phone] PERFORMED BY: [place] [address] PATHOLOGIST INVESTIGATOR [employer]VENUE RADHA BULLARD M.D. Performed By: #### C UU, ADDONUAPLUS #### [address] #### C3, C4, CH50 #### [facility] , Urine Cultureon 06-19-2022 Bacteria identified Cx Nom (U) No Growth 2 Days PERFORMED BY: [place] [address] PATHOLOGIST INVESTIGATOR [employer]VENUE RADHA BULLARD M.D. Normal [facility] Comment on above: Performed By: #### C UU, ADDONUAPLUS #### [address] #### C3, C4, CH50 #### [facility] , PROF CHEM 8 (BAS METB)on Anion gap [Moles/Vol] 12.5 mmol/L Normal [facility] Comment on above: Performed By: #### B MP #### [facility] [address] [address] [address] Reji Thomas Calcium [Mass/Vol] 8.9 mg/dL Normal 8.5-10.1 [facility] Comment on above: Performed By: #### B MP #### [facility] [address] [address] [address] Reji Thomas Chloride [Moles/Vol] 103 mmol/L Normal 98-107 [facility] Comment on above: Performed By: #### B MP #### [facility] [address] [address] [address] Reji Thomas CO2 [Moles/Vol] 26.1 mmol/L Normal 21.0-32.0 [facility] Comment on above: Performed By: #### B MP #### [facility] [address] [address] [address] Reji Thomas Creatinine [Mass/Vol] 2.09 mg/dL Critically high 0.55-1.02 [facility] Comment on above: Performed By: #### B MP #### [facility] [address] [address] [address] Reji Thomas EGFR-AF MARTINIQUAIS 27 mL/min/1.73m2 Critically low >=60 [facility] Comment on above: Performed By: #### B MP #### [facility] [address] [place] [address] Dr. Reji Thomas EGFR-NON AF MARTINIQUAIS 23 mL/min/1.73m2 Critically low >=60 [facility] Comment on above: Performed By: #### B MP #### [facility] [address] [address] [address] Reji Thomas Glucose [Mass/Vol] 96 mg/dL Normal 74-106 [facility] Comment on above: Performed By: #### B MP #### [facility] [address] [address] [address] Reji Thomas Potassium [Moles/Vol] 4.6 mmol/L Normal 3.5-5.1 [facility] Comment on above: Performed By: #### B MP #### [facility] [address] [address] [address] Reji Thomas Sodium [Moles/Vol] 137 mmol/L Normal 136-145 [facility] Comment on above: Performed By: #### B MP #### [facility] [address] [address] [address] Reji Thomas Urea nitrogen [Mass/Vol] 38.0 mg/dL Critically high 7.0-18.0 [facility] Comment on above: Performed By: #### B MP #### [facility] [address] [address] [address] Reji Thomas Urea nitrogen/Creatinine [Mass ratio] 18.2 mg/mg Normal [facility] Comment on above: Performed By: #### B MP #### [facility] [address] [place] [address] Dr. Reji Thomas PROTIMEon 06-04-2022 INR Coag (PPP) [Relative time] 2.51 {INR} Normal [facility] Comment on above: Performed By: #### B HANDKERCHIEF MAKER, CMP, TSH, LIPID #### [facility] [address] [place] [address] Dr. Reji Thomas INR GUIDELINES SEE BELOW Normal [facility] Comment on above: Result Comment: SHY RED INR: 2.0 - 3.0 CONDITIONS NOT LISTED BELOW 2.5 - 3.5 FOR PROSTHETIC HEART VALVE REPLACEMENT 2.5 - 3.5 RECURRENT THROMBOSIS Performed By: #### B HANDKERCHIEF MAKER, CMP, TSH, LIPID #### [facility] [address] [place] [address] Dr. Reji Thoams PT Coag (PPP) [Time] 25.5 s Critically high 9.0-11.6 [facility] Comment on above: Performed By: #### B HANDKERCHIEF MAKER, CMP, TSH, LIPID #### [facility] [address] [place] [address] Dr. Reji Thomas BNPon 05-15-2022 Natriuretic peptide B (Bld) [Mass/Vol] 3661.0 pg/mL Critically high <=1,800.0 [facility] Comment on above: Performed By: #### B HANDKERCHIEF MAKER, CMP, TSH, LIPID #### [facility] [address] [place] [address] Dr. Reji Thomas CBC AUTO DIFFon 05-15-2022 BASO # 0.1 103/ul Normal 0.0-0.1 [facility] Comment on above: Performed By: #### B MP #### [facility] [address] [place] [address] Dr. Reji Thomas Basophils/100 WBC (Bld) 1.1 % Normal 0.2-2.0 [facility] Comment on above: Performed By: #### B MP #### [facility] [address] [place] [address] Dr. Reji Thomas EO # 0.5 103/ul Normal 0.0-0.7 [facility] Comment on above: Performed By: #### B MP #### [facility] [address] [place] [address] Dr. Reji Thomas Eosinophils/100 WBC (Bld) 6.5 % Normal 0.9-7.0 [facility] Comment on above: Performed By: #### B MP #### [facility] [address] [place] [address] Dr. Reji Thomas Erythrocyte distribution width (RBC) [Ratio] 16.1 % Critically high 11.0-15.0 [facility] Comment on above: Performed By: #### B MP #### [facility] [address] [place] [address] Dr. Reji Thomas Hematocrit (Bld) [Volume fraction] 35.0 % Critically low 36.0-48.0 [facility] Comment on above: Performed By: #### B MP #### [facility] [address] [place] [address] Dr. Reji Thomas Hemoglobin (Bld) [Mass/Vol] 11.1 g/dL Critically low 12.0-16.0 [facility] Comment on above: Performed By: #### B MP #### [facility] [address] [place] [address] Dr. Reji Thomas IG # 0.02 10e3/ul Normal 0.00-0.03 [facility] Comment on above: Performed By: #### B MP #### [facility] [address] [place] [address] Dr. Reji Thomas IG % 0.3 % Normal 0.0-0.5 [facility] Comment on above: Performed By: #### B MP #### [facility] [address] [place] [address] Dr. Reji Thomas LYMPH # 1.6 103/ul Normal 1.2-3.8 [facility] Comment on above: Performed By: #### B MP #### [facility] [address] [place] [address] Dr. Reji Thomas Lymphocytes/100 WBC (Bld) 22.4 % Normal 20.5-60.0 [facility] Comment on above: Performed By: #### B MP #### [facility] [address] [place] [address] Dr. Reji Thomas MANUAL DIFF REQ NO Normal [facility] Comment on above: Performed By: #### B MP #### [facility] [address] [place] [address] Dr. Reji Thomas MCH (RBC) [Entitic mass] 26.4 pg Critically low 26.7-34.0 [facility] Comment on above: Performed By: #### B MP #### [facility] [address] [place] [address] Dr. Reji Thomas MCHC (RBC) [Mass/Vol] 31.7 g/dL Normal 29.9-35.2 [facility] Comment on above: Performed By: #### B MP #### [facility] [address] [place] [address] Dr. Reji Thomas MCV (RBC) [Entitic vol] 83.1 fL Normal 81.0-99.0 [facility] Comment on above: Performed By: #### B MP #### [facility] [address] [place] [address] Dr. Reji Thomas MONO # 0.9 103/ul Critically high 0.3-0.8 [facility] Comment on above: Performed By: #### B MP #### [facility] [address] [place] [address] Dr. Reji Thomas Monocytes/100 WBC (Bld) 12.1 % Critically high 1.7-12.0 [facility] Comment on above: Performed By: #### B MP #### [facility] [address] [place] [address] Dr. Reji Thomas NEUT # 4.1 103/ul Normal 1.4-6.5 [facility] Comment on above: Performed By: #### B MP #### [facility] [address] [place] [address] Dr. Reji Thomas Neutrophils/100 WBC (Bld) 57.6 % Normal 43.0-75.0 [facility] Comment on above: Performed By: #### B MP #### [facility] [address] [place] [address] Dr. Reji Thomas Platelet mean volume (Bld) [Entitic vol] 8.8 fL Critically low 9.5-13.5 [facility] Comment on above: Performed By: #### B MP #### [facility] [address] [place] [address] Dr. Reji Thomas PLT 253 103/ul Normal 150-450 [facility] Comment on above: Performed By: #### B MP #### [facility] [address] [place] [address] Dr. Reji Thomas RBC 4.21 106/ul Normal 4.20-5.40 [facility] Comment on above: Performed By: #### B MP #### [facility] [address] [place] [address] Dr. Reji Thomas WBC 7.1 103/ul Normal 4.0-11.0 [facility] Comment on above: Performed By: #### B MP #### [facility] [address] [place] [address] Dr. Reji Thomas PROF CHEM 8 (BAS METB)on Anion gap [Moles/Vol] 10.5 mmol/L Normal [facility] Comment on above: Performed By: #### B HANDKERCHIEF MAKER, CMP, TSH, LIPID #### [facility] [address] [place] [address] Dr. Reji Thomas Calcium [Mass/Vol] 8.9 mg/dL Normal 8.5-10.1 [facility] Comment on above: Performed By: #### B HANDKERCHIEF MAKER, CMP, TSH, LIPID #### [facility] [address] [address] [address] Reji Thomas Chloride [Moles/Vol] 104 mmol/L Normal 98-107 [facility] Comment on above: Performed By: #### B HANDKERCHIEF MAKER, CMP, TSH, LIPID #### [facility] [address] [address] [address] Reji Thomas CO2 [Moles/Vol] 29.5 mmol/L Normal 21.0-32.0 [facility] Comment on above: Performed By: #### B HANDKERCHIEF MAKER, CMP, TSH, LIPID #### [facility] [address] [place] [address] Dr. Reji Thomas Creatinine [Mass/Vol] 1.73 mg/dL Critically high 0.55-1.02 [facility] Comment on above: Performed By: #### B HANDKERCHIEF MAKER, CMP, TSH, LIPID #### [facility] [address] [place] [address] Dr. Reji Thomas EGFR-AF MARTINIQUAIS 34 mL/min/1.73m2 Critically low >=60 [facility] Comment on above: Performed By: #### B HANDKERCHIEF MAKER, CMP, TSH, LIPID #### [facility] [address] [place] [address] Dr. Reji Thomas EGFR-NON AF MARTINIQUAIS 28 mL/min/1.73m2 Critically low >=60 [facility] Comment on above: Performed By: #### B HANDKERCHIEF MAKER, CMP, TSH, LIPID #### [facility] [address] [place] [address] Dr. Reji Thomas Glucose [Mass/Vol] 79 mg/dL Normal 74-106 [facility] Comment on above: Performed By: #### B HANDKERCHIEF MAKER, CMP, TSH, LIPID #### [facility] [address] [address] [address] Reji Thomas Potassium [Moles/Vol] 4.0 mmol/L Normal 3.5-5.1 [facility] Comment on above: Performed By: #### B HANDKERCHIEF MAKER, CMP, TSH, LIPID #### [facility] [address] [address] [address] Reji Thomas Sodium [Moles/Vol] 140 mmol/L Normal 136-145 [facility] Comment on above: Performed By: #### B HANDKERCHIEF MAKER, CMP, TSH, LIPID #### [facility] [address] [place] [address] Dr. Reji Thomas Urea nitrogen [Mass/Vol] 22.0 mg/dL Critically high 7.0-18.0 [facility] Comment on above: Performed By: #### B HANDKERCHIEF MAKER, CMP, TSH, LIPID #### [facility] [address] [place] [address] Dr. Reji Thomas Urea nitrogen/Creatinine [Mass ratio] 12.7 mg/mg Normal [facility] Comment on above: Performed By: #### B HANDKERCHIEF MAKER, CMP, TSH, LIPID #### [facility] [address] [place] [address] Dr. Reji Thomas PROTIMEon 05-15-2022 INR Coag (PPP) [Relative time] 2.53 {INR} Normal [facility] Comment on above: Performed By: #### B HANDKERCHIEF MAKER, CMP, TSH, LIPID #### [facility] [address] [place] [address] Dr. Reji Thomas INR GUIDELINES SEE BELOW Normal [facility] Comment on above: Result Comment: SHY RED INR: 2.0 - 3.0 CONDITIONS NOT LISTED BELOW 2.5 - 3.5 FOR PROSTHETIC HEART VALVE REPLACEMENT 2.5 - 3.5 RECURRENT THROMBOSIS Performed By: #### B HANDKERCHIEF MAKER, CMP, TSH, LIPID #### [facility] [address] [place] [address] Dr. Reji Thomas PT Coag (PPP) [Time] 25.7 s Critically high 9.0-11.6 [facility] Comment on above: Performed By: #### B HANDKERCHIEF MAKER, CMP, TSH, LIPID #### [facility] [address] [place] [address] Dr. Reji Thomas ECHOCARDIO M/2D COMPLETEon 0 05-04-2022 ECHOCARDIO M/2D COMPLETE Patient: INEZ JUAREZ Exam Date: 05/04/2022 : 1940 Gender:F Ordering : DR JENN PRADO M.D. Admission #: [id number] Family : Order #: [id number] CLICK HERE TO VIEW EXAM ECHOCARDIOGRAM REPORT [...] Area(A4C): 27.20 cm2 Left Atrium Systolic Volume(A2C): 617824 mm3 Left Atrium Systolic Volume(A4C): 91433 mm3 Mitral Valve MV E to A Ratio: 2.60 Deceleration [place]: 62628 mm/s2 Mitral Valve A-Wave Peak Velocity: 58.60 [...] M.D. on 05/07/2022 at 11:39 Normal [facility] EVAN by IFAon 04-19-2022 Antinuclear Antibodies, IFA Positive Abnormal [facility] Comment on above: Result Comment: Nega tive <1:80 Borderline 1:80 Positive >1:80 Performed By: #### B HANDKERCHIEF MAKER, CMP, TSH, LIPID #### [facility] [address] [address] [address] Reji Thomas Centriole Pattern Normal [facility] Comment on above: Performed By: #### B HANDKERCHIEF MAKER, CMP, TSH, LIPID #### [facility] [address] [address] [address] Reji Thomas Centromere Pattern Normal [facility] Comment on above: Performed By: #### B HANDKERCHIEF MAKER, CMP, TSH, LIPID #### [facility] [address] [address] [address] Reji Thomas Homogeneous Pattern 1:320 Critically high [facility] Comment on above: Result Comment: ICAP nomenclature: AC-1 Performed By: #### B HANDKERCHIEF MAKER, CMP, TSH, LIPID #### [facility] [address] [place], [place] [address] Dr. Reji Thomas Midbody Pattern Normal [facility] Comment on above: Performed By: #### B HANDKERCHIEF MAKER, CMP, TSH, LIPID #### [facility] [address] [place], [place] [address] Dr. Reji Thomas Note: Comment Normal [facility] Comment on above: Result Comment: For more [...] titers Nucleosomes, Histones Drug-induced SLE Speckled Sm, BUILDING CARPENTER, SCL-70, SLE,MCTD,PSS (diffuse form), SS-A/SS-B Sjogrens Nucleolar SCL-70, PM-1/SCL High titers Scleroderma, PM/DM Centromere Centromere PSS (limited form) w/Crest syndrome variable Nuclear Dot Sp100,m34-frunoi Primary Biliary Cirrhosis Nuclear GP210, Primary Biliary Cirrhosis Membrane eleonora A,B,C Performed By: #### B HANDKERCHIEF MAKER, CMP, TSH, LIPID #### [facility] [address] [place] [address] Dr. Reji Thomas Nuclear Dot Pattern Normal [facility] Comment on above: Performed By: #### B HANDKERCHIEF MAKER, CMP, TSH, LIPID #### [facility] [address] [place] [address] Dr. Reji Thomas Nuclear Membrane Pattern Normal [facility] Comment on above: Performed By: #### B HANDKERCHIEF MAKER, CMP, TSH, LIPID #### [facility] [address] [place] [address] Dr. Reji Thomas Nucleolar Pattern Normal [facility] Comment on above: Performed By: #### B HANDKERCHIEF MAKER, CMP, TSH, LIPID #### [facility] [address] [place] [address] Dr. Reji Thomas PCNA Pattern Normal [facility] Comment on above: Performed By: #### B HANDKERCHIEF MAKER, CMP, TSH, LIPID #### [facility] [address] [place] [address] Dr. Reji Thomas Speckled Pattern Normal [facility] Comment on above: Performed By: #### B HANDKERCHIEF MAKER, CMP, TSH, LIPID #### [facility] [address] [address] [address] Reji Thomas Spindle Apparatus Pattern Normal [facility] Comment on above: Performed By: #### B HANDKERCHIEF MAKER, CMP, TSH, LIPID #### [facility] [address] [address] [address] Reji Thomas ANCA (ANTINEUTROPHIL CYTOPLA MSMIC [facility] 04-18-2022 Atypical pANCA <1:20 Normal Neg:<1:20 [facility] Comment on above: Result Comment: Seru m is slightly hemolyzed The atypical pANCA pattern has been observed in a significant percentage of patients with ulcerative colitis, primary sclerosing cholangitis and autoimmune hepatitis. Performed By: #### B MP #### [facility] [address] [address] [address] Reji Thomas Cytoplasmic (C-ANCA) <1:20 Normal Neg:<1:20 [facility] Comment on above: Result Comment: Seru m is slightly hemolyzed Performed By: #### B MP #### [facility] [address] [address] [address] Reji Thomas Perinuclear (P-ANCA) <1:20 Normal Neg:<1:20 [facility] Comment on above: Result Comment: Seru m is slightly hemolyzed The presence of positive fluorescence exhibiting P-ANCA or C-ANCA patterns alone is not specific for the diagnosis of Arlene's Granulomatosis (WG) or microscopic polyangiitis. Decisions about treatment should not be based solely on ANCA IFA results. The [employer] ANCA [employer] Consensus recommends follow up testing of positive sera with both HI-3 and MPO-ANCA enzyme immunoassays. As many as 5% serum samples are positive only by EIA. Ref. AM J Clin Pathol 1999;111:507-513. Performed By: #### B MP #### [facility] [address] [address] [address] Reji Thomas ANTISCLERODERMA ABon 022 Antiscleroderma-70 Antibodies 0.3 AI Normal 0.0-0.9 [facility] Comment on above: Performed By: #### B HANDKERCHIEF MAKER, CMP, TSH, LIPID #### [facility] [address] [place] [address] Dr. Reji Thomas T3 UPTAKEon 04-18-2022 Free Thyroxine Index 1.8 Normal 1.2-4.9 [facility] Comment on above: Performed By: #### B HANDKERCHIEF MAKER, CMP, TSH, LIPID #### [facility] [address] [place] [address] Dr. Reji Thomas T3 Uptake 23 % Critically low 24-39 [facility] Comment on above: Performed By: #### B HANDKERCHIEF MAKER, CMP, TSH, LIPID #### [facility] [address] [place] [address] Dr. Reji Thomas T4 LABCORPon 04-18-2022 T4 [Mass/Vol] 7.8 ug/dL Normal 4.5-12.0 [facility] Comment on above: Performed By: #### B HANDKERCHIEF MAKER, CMP, TSH, LIPID #### [facility] [address] [place] [address] Dr. Reji Thomas BNPon 04-16-2022 Natriuretic peptide B (Bld) [Mass/Vol] 2870.0 pg/mL Critically high <=1,800.0 [facility] Comment on above: Result Comment: repe ated Performed By: #### B HANDKERCHIEF MAKER, CMP, TSH, LIPID #### [facility] [address] [place] [address] Dr. Reji Thomas CBC AUTO DIFFon 04-16-2022 BASO # 0.1 103/ul Normal 0.0-0.1 [facility] Comment on above: Performed By: #### B HANDKERCHIEF MAKER, CMP, TSH, LIPID #### [facility] [address] [place] [address] Dr. Reji Thomas Basophils/100 WBC (Bld) 0.9 % Normal 0.2-2.0 [facility] Comment on above: Performed By: #### B HANDKERCHIEF MAKER, CMP, TSH, LIPID #### [facility] [address] [place] [address] Dr. Reji Thomas EO # 0.3 103/ul Normal 0.0-0.7 [facility] Comment on above: Performed By: #### B HANDKERCHIEF MAKER, CMP, TSH, LIPID #### [facility] [address] [place] [address] Dr. Reji Thomas Eosinophils/100 WBC (Bld) 3.9 % Normal 0.9-7.0 [facility] Comment on above: Performed By: #### B HANDKERCHIEF MAKER, CMP, TSH, LIPID #### [facility] [address] [place] [address] Dr. Reji Thomas Erythrocyte distribution width (RBC) [Ratio] 15.9 % Critically high 11.0-15.0 [facility] Comment on above: Performed By: #### B HANDKERCHIEF MAKER, CMP, TSH, LIPID #### [facility] [address] [place] [address] Dr. Reji Thomas Hematocrit (Bld) [Volume fraction] 38.1 % Normal 36.0-48.0 [facility] Comment on above: Performed By: #### B HANDKERCHIEF MAKER, CMP, TSH, LIPID #### [facility] [address] [place] [address] Dr. Reji Thomas Hemoglobin (Bld) [Mass/Vol] 12.1 g/dL Normal 12.0-16.0 [facility] Comment on above: Performed By: #### B HANDKERCHIEF MAKER, CMP, TSH, LIPID #### [facility] [address] [place] [address] Dr. Reji Thomas IG # 0.02 10e3/ul Normal 0.00-0.03 [facility] Comment on above: Performed By: #### B HANDKERCHIEF MAKER, CMP, TSH, LIPID #### [facility] [address] [place] [address] Dr. Reji Thomas IG % 0.3 % Normal 0.0-0.5 [facility] Comment on above: Performed By: #### B HANDKERCHIEF MAKER, CMP, TSH, LIPID #### [facility] [address] [place] [address] Dr. Reji Thomas LYMPH # 1.6 103/ul Normal 1.2-3.8 [facility] Comment on above: Performed By: #### B HANDKERCHIEF MAKER, CMP, TSH, LIPID #### [facility] [address] [address] [address] Reji Thomas Lymphocytes/100 WBC (Bld) 22.6 % Normal 20.5-60.0 [facility] Comment on above: Performed By: #### B HANDKERCHIEF MAKER, CMP, TSH, LIPID #### [facility] [address] [address] [address] Reji Thomas MANUAL DIFF REQ NO Normal [facility] Comment on above: Performed By: #### B HANDKERCHIEF MAKER, CMP, TSH, LIPID #### [facility] [address] [address] [address] Reji Thomas MCH (RBC) [Entitic mass] 26.5 pg Critically low 26.7-34.0 [facility] Comment on above: Performed By: #### B HANDKERCHIEF MAKER, CMP, TSH, LIPID #### [facility] [address] [place] [address] Dr. Reji Thomas MCHC (RBC) [Mass/Vol] 31.8 g/dL Normal 29.9-35.2 [facility] Comment on above: Performed By: #### B HANDKERCHIEF MAKER, CMP, TSH, LIPID #### [facility] [address] [place] [address] Dr. Reji Thomas MCV (RBC) [Entitic vol] 83.4 fL Normal 81.0-99.0 [facility] Comment on above: Performed By: #### B HANDKERCHIEF MAKER, CMP, TSH, LIPID #### [facility] [address] [place] [address] Dr. Reji Thomas MONO # 0.6 103/ul Normal 0.3-0.8 [facility] Comment on above: Performed By: #### B HANDKERCHIEF MAKER, CMP, TSH, LIPID #### [facility] [address] [place] [address] Dr. Reji Thomas Monocytes/100 WBC (Bld) 9.3 % Normal 1.7-12.0 [facility] Comment on above: Performed By: #### B HANDKERCHIEF MAKER, CMP, TSH, LIPID #### [facility] [address] [address] [address] Reji Thomas NEUT # 4.3 103/ul Normal 1.4-6.5 [facility] Comment on above: Performed By: #### B HANDKERCHIEF MAKER, CMP, TSH, LIPID #### [facility] [address] [address] [address] Reji Thomas Neutrophils/100 WBC (Bld) 63.0 % Normal 43.0-75.0 [facility] Comment on above: Performed By: #### B HANDKERCHIEF MAKER, CMP, TSH, LIPID #### [facility] [address] [address] [address] Reji Thomas Platelet mean volume (Bld) [Entitic vol] 9.2 fL Critically low 9.5-13.5 [facility] Comment on above: Performed By: #### B HANDKERCHIEF MAKER, CMP, TSH, LIPID #### [facility] [address] [place] [address] Dr. Reji Thomas PLT 211 103/ul Normal 150-450 [facility] Comment on above: Performed By: #### B HANDKERCHIEF MAKER, CMP, TSH, LIPID #### [facility] [address] [place] [address] Dr. Reji Thomas RBC 4.57 106/ul Normal 4.20-5.40 [facility] Comment on above: Performed By: #### B HANDKERCHIEF MAKER, CMP, TSH, LIPID #### [facility] [address] [place] [address] Dr. Reji Thomas WBC 6.9 103/ul Normal 4.0-11.0 [facility] Comment on above: Performed By: #### B HANDKERCHIEF MAKER, CMP, TSH, LIPID #### [facility] [address] [place] [address] Dr. Reji Thomas GLYCOHEMOGLOBIN A1Con 2021 ADA RECOMMENDATION SEE BELOW Normal [facility] Comment on above: Result Comment: ADA RECOMMENDED LIMIT 4.0 - 6.0 ADA THERAPEUTIC TARGET < 7.0 ACTION SUGGESTED > 7.0 Performed By: #### B HANDKERCHIEF MAKER, CMP, TSH, LIPID #### [facility] [address] [place] [address] Dr. Reji Thomas Glucose [Mass/Vol] 100 mg/dL Normal [facility] Comment on above: Performed By: #### B HANDKERCHIEF MAKER, CMP, TSH, LIPID #### [facility] [address] [address] [address] Reji Thomas HbA1c (Bld) [Mass fraction] 5.1 % Normal 4.5-6.2 [facility] Comment on above: Performed By: #### B HANDKERCHIEF MAKER, CMP, TSH, LIPID #### [facility] [address] [place] [address] Dr. Reji Thomas IRONon 04-16-2022 Iron [Mass/Vol] 42.0 ug/dL Critically low 50.0-170.0 [facility] Comment on above: Performed By: #### B HANDKERCHIEF MAKER, CMP, TSH, LIPID #### [facility] [address] [place] [address] Dr. Reji Thomas LIPID PROFILEon 04-16-2022 CHOL-HDL RATIO NORM SEE BELOW Normal [facility] Comment on above: Result Comment: 3.3 - 4.4 LOW RISK 4.4 - 7.1 AVERAGE RISK 7.1 - 11.0 MODERATE RISK >11.0 HIGH RISK Performed By: #### B HANDKERCHIEF MAKER, CMP, TSH, LIPID #### [facility] [address] [place] [address] Dr. Reji Thomas Cholesterol [Mass/Vol] 176 mg/dL Normal <=200 [facility] Comment on above: Performed By: #### B HANDKERCHIEF MAKER, CMP, TSH, LIPID #### [facility] [address] [place] [address] Dr. Reji Thomas Cholesterol in HDL [Mass/Vol] 52 mg/dL Normal 40-60 [facility] Comment on above: Performed By: #### B HANDKERCHIEF MAKER, CMP, TSH, LIPID #### [facility] [address] [place] [address] Dr. Reji Thomas Cholesterol in LDL [Mass/Vol] 102.8 mg/dL Normal [facility] Comment on above: Performed By: #### B HANDKERCHIEF MAKER, CMP, TSH, LIPID #### [facility] [address] [place] [address] Dr. Reji Thomas Cholesterol.total/Ch olesterol in HDL [Mass ratio] 3.4 {ratio} Normal [facility] Comment on above: Performed By: #### B HANDKERCHIEF MAKER, CMP, TSH, LIPID #### [facility] [address] [address] [address] Reji Thomas HDL NORMAL > or = 60 mg/dl - LOW CARDIOVASCULAR RISK <40 mg/dl - HIGH CARDIOVASCULAR RISK Normal [facility] Comment on above: Performed By: #### B HANDKERCHIEF MAKER, CMP, TSH, LIPID #### [facility] [address] [address] [address] Reji Thomas LDL CALC NORMAL SEE BELOW Normal [facility] Comment on above: Result Comment: <100 mg/dl OPTIMAL 100 - 129 mg/dl NEAR OR ABOVE OPTIMAL 130 - 159 mg/dl BORDERLINE HIGH 160 - 189 mg/dl HIGH >190 mg/dl VERY HIGH Performed By: #### B HANDKERCHIEF MAKER, CMP, TSH, LIPID #### [facility] [address] [address] [address] Reji Thomas Triglyceride [Mass/Vol] 106 mg/dL Normal <=150 [facility] Comment on above: Performed By: #### B HANDKERCHIEF MAKER, CMP, TSH, LIPID #### [facility] [address] [address] [address] Reji Thomsa VLDL CALC 21.2 mg/dL Normal [facility] Comment on above: Performed By: #### B HANDKERCHIEF MAKER, CMP, TSH, LIPID #### [facility] [address] [place] [address] Dr. Reji Thomas PROF 14(COMP METB)on 022 Albumin [Mass/Vol] 3.6 g/dL Normal 3.4-5.0 [facility] Comment on above: Performed By: #### B HANDKERCHIEF MAKER, CMP, TSH, LIPID #### [facility] [address] [place] [address] Dr. Reji Thomas Albumin/Globulin [Mass ratio] 0.9 {ratio} Normal [facility] Comment on above: Performed By: #### B HANDKERCHIEF MAKER, CMP, TSH, LIPID #### [facility] [address] [address] [address] Reji Thomas ALP [Catalytic activity/Vol] 62 U/L Normal 46-116 [facility] Comment on above: Performed By: #### B HANDKERCHIEF MAKER, CMP, TSH, LIPID #### [facility] [address] [address] [address] Reji Thomas ALT [Catalytic activity/Vol] 14 U/L Normal 14-59 [facility] Comment on above: Performed By: #### B HANDKERCHIEF MAKER, CMP, TSH, LIPID #### [facility] [address] [place] [address] Dr. Reji Thomas Anion gap [Moles/Vol] 14.5 mmol/L Normal [facility] Comment on above: Performed By: #### B HANDKERCHIEF MAKER, CMP, TSH, LIPID #### [facility] [address] [place] [address] Dr. Reji Thomas AST [Catalytic activity/Vol] 17 U/L Normal 15-37 [facility] Comment on above: Performed By: #### B HANDKERCHIEF MAKER, CMP, TSH, LIPID #### [facility] [address] [place] [address] Dr. Reji Thomas Bilirubin [Mass/Vol] 0.6 mg/dL Normal 0.2-1.0 [facility] Comment on above: Performed By: #### B HANDKERCHIEF MAKER, CMP, TSH, LIPID #### [facility] [address] [place] [address] Dr. Reji Thomas Calcium [Mass/Vol] 8.8 mg/dL Normal 8.5-10.1 [facility] Comment on above: Performed By: #### B HANDKERCHIEF MAKER, CMP, TSH, LIPID #### [facility] [address] [place] [address] Dr. Reji Thomas Chloride [Moles/Vol] 102 mmol/L Normal 98-107 [facility] Comment on above: Performed By: #### B HANDKERCHIEF MAKER, CMP, TSH, LIPID #### [facility] [address] [place] [address] Dr. Reji Thomas CO2 [Moles/Vol] 26.3 mmol/L Normal 21.0-32.0 [facility] Comment on above: Performed By: #### B HANDKERCHIEF MAKER, CMP, TSH, LIPID #### [facility] [address] [address] [address] Reji Thomas Creatinine [Mass/Vol] 1.76 mg/dL Critically high 0.55-1.02 [facility] Comment on above: Performed By: #### B HANDKERCHIEF MAKER, CMP, TSH, LIPID #### [facility] [address] [place] [address] Dr. Reji Thomas EGFR-AF MARTINIQUAIS 33 mL/min/1.73m2 Critically low >=60 [facility] Comment on above: Performed By: #### B HANDKERCHIEF MAKER, CMP, TSH, LIPID #### [facility] [address] [place] [address] Dr. Reji Thomas EGFR-NON AF MARTINIQUAIS 28 mL/min/1.73m2 Critically low >=60 [facility] Comment on above: Performed By: #### B HANDKERCHIEF MAKER, CMP, TSH, LIPID #### [facility] [address] [place] [address] Dr. Reji Thomas Globulin (S) [Mass/Vol] 4.2 g/dL Normal [facility] Comment on above: Performed By: #### B HANDKERCHIEF MAKER, CMP, TSH, LIPID #### [facility] [address] [place] [address] Dr. Reji Thomas Glucose [Mass/Vol] 81 mg/dL Normal 74-106 [facility] Comment on above: Performed By: #### B HANDKERCHIEF MAKER, CMP, TSH, LIPID #### [facility] [address] [place] [address] Dr. Rjei Thomas Potassium [Moles/Vol] 3.8 mmol/L Normal 3.5-5.1 [facility] Comment on above: Performed By: #### B HANDKERCHIEF MAKER, CMP, TSH, LIPID #### [facility] [address] [place] [address] Dr. Reji Thomas Protein [Mass/Vol] 7.8 g/dL Normal 6.4-8.2 [facility] Comment on above: Performed By: #### B HANDKERCHIEF MAKER, CMP, TSH, LIPID #### [facility] [address] [address] [address] Reji Thomas Sodium [Moles/Vol] 139 mmol/L Normal 136-145 [facility] Comment on above: Performed By: #### B HANDKERCHIEF MAKER, CMP, TSH, LIPID #### [facility] [address] [address] [address] Reji Thomas Urea nitrogen [Mass/Vol] 27.0 mg/dL Critically high 7.0-18.0 [facility] Comment on above: Performed By: #### B HANDKERCHIEF MAKER, CMP, TSH, LIPID #### [facility] [address] [address] [address] Reji Thomas Urea nitrogen/Creatinine [Mass ratio] 15.3 mg/mg Normal [facility] Comment on above: Performed By: #### B HANDKERCHIEF MAKER, CMP, TSH, LIPID #### [facility] [address] [place] [address] Dr. Reji Thomas PROTIMEon 04-16-2022 INR Coag (PPP) [Relative time] 1.92 {INR} Normal [facility] Comment on above: Performed By: #### B HANDKERCHIEF MAKER, CMP, TSH, LIPID #### [facility] [address] [place] [address] Dr. Reji Thomas INR GUIDELINES SEE BELOW Normal [facility] Comment on above: Result Comment: SHY RED INR: 2.0 - 3.0 CONDITIONS NOT LISTED BELOW 2.5 - 3.5 FOR PROSTHETIC HEART VALVE REPLACEMENT 2.5 - 3.5 RECURRENT THROMBOSIS Performed By: #### B HANDKERCHIEF MAKER, CMP, TSH, LIPID #### [facility] [address] [place] [address] Dr. Reji Thomas PT Coag (PPP) [Time] 19.9 s Critically high 9.0-11.6 [facility] Comment on above: Performed By: #### B HANDKERCHIEF MAKER, CMP, TSH, LIPID #### [facility] [address] [place] [address] Dr. Reji Thomas [facility] 37 mm/hr Critically high <=30 [facility] Comment on above: Performed By: #### B HANDKERCHIEF MAKER, CMP, TSH, LIPID #### [facility] [address] [place] [address] Dr. Reji Thomas TSHon 04-16-2022 TSH 1.941 uIU/mL Normal 0.358-3.740 [facility] Comment on above: Performed By: #### B HANDKERCHIEF MAKER, CMP, TSH, LIPID #### [facility] [address] [place] [address] Dr. Reji Thomas TSH RANGE SEE BELOW Normal [facility] Comment on above: Result Comment: <0.3 4 UIU/ml HYPERTHYROID 0.34-5.60 UIU/ml EUTHYROID >5.60 UIU/ml HYPOTHYROID Performed By: #### B HANDKERCHIEF MAKER, CMP, TSH, LIPID #### [facility] [address] [place] [address] Dr. Reji Thomas VITAMIN D 25 OHon 04-16-2022 VIT D 25-OH 56.6 ng/mL Normal [facility] Comment on above: Performed By: #### B HANDKERCHIEF MAKER, CMP, TSH, LIPID #### [facility] [address] [place] [address] Dr. Reji Thomas VIT D RANGES SEE BELOW Normal [facility] Comment on above: Result Comment: <20 ng/mL Vit D deficient 20 - <30 ng/mL Vit D insufficient 30 - 100 ng/mL Vit D sufficient >100 ng/mL Potential Toxicity Performed By: #### B HANDKERCHIEF MAKER, CMP, TSH, LIPID #### [facility] [address] [place] [address] Dr. Reji Thomas Cardiovascular Lab Reporton 11-02-2021 Cardiovascular Lab Report [facility] Patient Name: Inez Juarez MR #: [id number] [facility] Physician: Jenn Prado M.D. Department of Service Date: 11/01/2021 Medicine Birthdate: 1940 Division of Room #: CC Cardiology Adult Cardiovascular Services [address] [place] [address] Cardiovascular Laboratory Report INDICATION: The patient is [...] She signed consent. She was brought to clinical laboratory service teacher in a fasting state. The right neck area was prepped and draped in usual fashion. Micropuncture technique and ultrasound guidance were used for access in the right internal jugular vein. A 6-[place] Islander x 11 cm sheath was placed. A 6-[place] Islander Hernández catheter was used for heart catheterization [...] Prado M.D. Date Trans: 11/01/2021 11:22 P/alondra [id number] cc: Bruce Rizvi M.D. [address] [place] [address] Normal [facility] Cardiovascular Lab Reporton 06-02-2021 Cardiovascular Lab Report [facility] Patient Name: Inez Juarez MR #: [id number] [facility] Physician: Jenn Prado M.D. Department of Service Date: 06/02/2021 Medicine Birthdate: 1940 Division of Room #: CC Cardiology Adult Cardiovascular Services [facility] [address]. [place] [address] Cardiovascular Laboratory Report INDICATION: The patient is [...] the informed consent. She was brought to clinical laboratory service teacher in a fasting state. The right neck area was prepped and draped in usual fashion. Using micropuncture technique and ultrasound guidance, the right internal jugular vein was accessed and a 6-[place] Islander x 11 cm sheath was placed. A 6-[place] Islander Hernández catheter was used for heart catheterization [...] Prado M.D. Date Trans: 06/02/2021 02:42 P/alondra [id number] cc: Bruce Rizvi M.D. [address] [address] [facility] Encounters Encounter Date Encounter Type Care Provider Facility Start: 10-30-2023 End: 10-30-2023 ambulatory [facility] Start: 10-22-2023 End: 10-22-2023 ambulatory ANTONY SMITH [facility] Start: 05-20-2023 End: 05-20-2023 ambulatory [facility] Start: 03-22-2023 End: 03-23-[address] BRUCE [...] Start: 08-09-2022 End: 08-11-[address] BRUCE RIZVI . Facility:[facility] Start: 07-09-2022 End: 07-10-2022 ambulatory [...] Start: 11-01-2021 End: 11-02-2021 ambulatory PROVIDER UNKNOWN Facility:[facility] Start: 06-02-2021 End: 06-03-2021 ambulatory PROVIDER UNKNOWN Facility:[facility] Payers Date Payer Category Payer Medicare [id number] 1961 Medicare [id number] 1961 Medicare [id number] 1961 Self-pay [id number] 1940 Unknown [id number] 2.16.8 [id number] 1940 Unknown [id number] 2.16.8 40.1.622362.3.579.2.647 1940 Unknown [id number] 2.16.84 0.1.680854.3.579.2.593 8 Unknown [id number] 2.16.84 0.1.453376.3.579.2.593 1940 Unknown [id number] 2.16.84 0.1.818196.3.579.2.593 1938 Unknown [id number] 2.16.84 0.1.373110.3.579.2.593 1938 Unknown [id number] 2.16.84 0.1.885456.3.579.2.593 1938 Unknown [id number] 2.16.84 0.1.454311.3.579.2.593 1938 Unknown [id number] 2.16.84 0.1.824351.3.579.2.593 1938 Unknown [id number] 2.16.84 0.1.965174.3.579.2.593 1938 Unknown [id number] 2.16.84 0.1.014381.3.579.2.593 1938 Unknown [id number] 2.16.84 0.1.311931.3.579.2.593 1938 Unknown [id number] 2.16.84 0.1.234835.3.579.2.593 1938 Unknown [id number] 2.16.84 0.1.667993.3.579.2.593 1938 Unknown [id number] 2.16.84 0.1.202492.3.579.2.593 1938 Unknown [id number] 2.16.84 0.1.662119.3.579.2.593 1938 Unknown [id number] 2.16.84 0.1.007188.3.579.2.593 1938 Unknown [id number] 2.16.84 0.1.639290.3.579.2.593 1938 Unknown [id number] 2.16.84 0.1.883977.3.579.2.593 1938 Unknown [id number] 2.16.84 0.1.765190.3.579.2.593 1938 Unknown [id number] 2.16.84 0.1.947590.3.579.2.593 Private Health Insurance MEB [id number] Progress note 10-30-2023 Note Date & Type Note Facility 10-30-2023 Note [place] [facility] - [facility] Subjective Inez Juarez is a 83 [...] Murmur heard. Systol (more content not included)... [facility] Clinical Note 10-22-2023 Note Date & Type Note Facility 10-22-2023 Note Patient: Inez foss Procedure Information Date/Time: 10/22/2330 Procedure: Right heart cath Location: [facility]CHANDISE ADJUSTMENT CLERK 3 / [facility] (Cath) Providers: Antony Smith MD [...] with fellow and attending. Additional Equipment Requests [facility] Clinical Note 10-15-2023 Note Date & Type Note Facility 10-15-[address] Smith regarding warfarin. Dr Smith requested warfarin to be held for 3 days prior to procedure. [facility] Progress note 09-19-2023 Note Date & Type Note Facility 09-19-2023 Note [facility] Progress note 05-20-2023 Note Date & Type Note Facility 05-20-2023 Note [place] [facility] - [facility] Subjective Inez Juarez is a 83 [...] present. Comments: Large (more content not included)... [facility] Summary Purpose Family History No Family History Records FoundNo Family History Records FoundNo Family History Records FoundNo Family History Records Found Advance Directives No Advanced Directives Records FoundNo Advanced Directives Records FoundNo Advanced Directives Records FoundNo Advanced Directives Records Found Additional Source Comments INFORMATION SOURCE (unrecogn ized section and content) DATE CREATED AUTHOR 11/03/2021 [facility] DATE CREATED AUTHOR AUTHOR'S ORGANIZ ATION 07/05/2022 [facility] DATE CREATED AUTHOR AUTHOR'S ORGANIZ ATION 03/23/2023 [facility] DATE CREATED AUTHOR AUTHOR'S ORGANIZ ATION 10/31/2023 [facility] FOR RECORDS PERTAINING TO PATIENTS WHO ARE [...] BE BASED ON THE PRIMARY CLINICAL RECORDS. [facility] [facility]. provides no warranty or guarantee of the accuracy or completeness of information in this document.
[2023-12-05 14:47] LABS: INR 2.92; Prothrombin Time 29.1 sec (9.0-11.6)
== END 2023-12-05 14:03 | disposition home or self-care (01) ==
LOC: LAB 14:02
PROVIDERS: PCP Family Medicine; Visit Provider Family Medicine
DX: I48.91 Unspecified atrial fibrillation (principal)
CPT/HCPCS: 36415; 85610

== ENCOUNTER 2023-12-13 10:36 | Outpatient (OUT) | payer MEDICARE, SELFPAY ==
[2023-12-13 11:30] LABS: Anion Gap 15.2; Calcium 8.6 mg/dL (8.5-10.1); Carbon Dioxide 27.6 mmol/L (21.0-32.0); Chloride 102 mmol/L (98-107); Estimated GFR (African America 29 (>=60); Estimated GFR (Non-African Ame 24 (>=60); Glucose 92 mg/dL (74-106); Potassium 3.8 mmol/L (3.5-5.1); Sodium 141 mmol/L (136-145)
== END 2023-12-13 10:37 | disposition home or self-care (01) ==
LOC: LAB 10:39
PROVIDERS: PCP Family Medicine; Visit Provider Internal Medicine Interventional Cardiology
DX: I50.32 Chronic diastolic (congestive) heart failure (principal); I48.91 Unspecified atrial fibrillation
CPT/HCPCS: 36415; 80048

== ENCOUNTER 2024-01-07 15:18 | Outpatient (OUT) | payer MEDICARE, SELFPAY ==
[2024-01-07 16:12] LABS: INR 1.53; Prothrombin Time 15.8 sec (9.0-11.6)
== END 2024-01-07 15:19 | disposition home or self-care (01) ==
LOC: LAB 15:19
PROVIDERS: PCP Family Medicine; Visit Provider Family Medicine
DX: I48.91 Unspecified atrial fibrillation (principal)
CPT/HCPCS: 36415; 85610

== ENCOUNTER 2024-02-05 13:31 | Outpatient (OUT) | payer MEDICARE, SELFPAY ==
[2024-02-05 14:19] LABS: INR 2.16; Prothrombin Time 21.9 sec (9.0-11.6)
== END 2024-02-05 13:32 | disposition home or self-care (01) ==
LOC: LAB 13:32
PROVIDERS: PCP Family Medicine; Visit Provider Family Medicine
DX: I48.91 Unspecified atrial fibrillation (principal)
CPT/HCPCS: 36415; 85610

== ENCOUNTER 2024-03-10 13:24 | Outpatient (OUT) | payer MEDICARE, SELFPAY ==
--- OUTSIDE RECORDS SUMMARY | 2024-03-10 13:35 | XMS_ITS | CCD ---
Author Organization [facility] Care Team Providers Care Cloth Folder Hand Name Role Phone UNKNOWN, PROVIDER Attending Unavailable [...] Admitting Unavailable MOUKARBEL, DR BARAJAS Consulting Unavailable RICHMOND, SIGRID Consulting Unavailable HOY ., DR BARRERA Primary [...] Unavailable HOY ., DR BARRERA Admcrow Unavailable SMITH, ANTONY Admitting Unavailable SMITHANTONY Attending Unavailable MOUKARBEL, JENN Attending Unavailable MOUKARBEL, JENN Attending Unavailable MOUKARBEL, [...] 04-16-2022 Episodic Other aftercare (4 sources) Other senior living (current) drug therapy; Translations: [OTH BANANA CARRIER CURRENT DRUG THERAPY] Onset: 06-04-2022 Episodic Other [...] Value Interpretation Reference Range Facility Office Visiton 12-13-2023 Follow-up visit [id number] Inez Juarez 1940 F Date Provider Department Center 12/13/2023 JENN AMANDA BARBRA [place] Family History Problem Relation Age of Onset Hypertension Mother Coronary artery disease Father Hypertension Father Family Status - Relation Status Age at Mother Father Level of Service:57870 SD OFFICE/OUTPATIENT ESTABLISHED MOD MDM 30 MIN Normal [facility] Office Visiton 10-30-2023 Follow-up visit [id number] Inez Juarez 1940 F Date Provider Department Center 10/30/2023 JENN AMANDA BARBRA Ac[place]ña Family History Problem Relation Age of Onset Hypertension Mother Coronary artery disease Father Hypertension Father Family Status - Relation Status Age at Mother Father Level of Service:84601 SD OFFICE/OUTPATIENT ESTABLISHED MOD MDM 30 MIN Normal [facility] HPon 10-22-2023 HP History Of Present [...] a past medical history of Atrial fibrillation ([facility]), CHF (congestive heart failure) ([facility]), Chronic kidney disease, GERD (gastroesophageal reflux disease), [...] Results Reviewed Relevant (more content not included)... [facility] NURSNOTEon 10-22-2023 NURSNOTE RN educated pt on d/c instructions. RN encouraged pt to voice any questions or concerns. Pt verbalizes no questions or concerns at this time. [facility] Office Visiton 05-20-2023 Follow-up visit [id number] Inez Juarez 1940 F Date Provider Department Center 05/20/2023 JENN AMANDA [facility] Family History Problem Relation Age of Onset Hypertension Mother Coronary artery disease Father Hypertension Father Family Status - Relation Status Age at Mother Father Level of Service:25018 SD OFFICE/OUTPATIENT ESTABLISHED MOD MDM 30-39 MIN Reason for Visit and Comments: Shortness of Breath [535130] Fatigue [46] Follow-up [430816] [facility] BNPon 03-22-2023 Natriuretic peptide B (Bld) [Mass/Vol] 1423.0 pg/mL Normal <=1,800.0 [facility] Comment on above: Performed By: #### B [employer] HEMMER, CMP, TSH, LIPID #### [facility] [address] [address] [address] Reji Thomas CBC AUTO DIFFon 03-22-2023 BASO # 0.1 103/ul Normal 0.0-0.1 [facility] Comment on above: Performed By: #### B MP #### [facility] [address] [address] [address] Reji Thomas Basophils/100 WBC (Bld) 1.0 % Normal 0.2-2.0 [facility] Comment on above: Performed By: #### B MP #### [facility] [address] [address] [address] Reji Thomas EO # 0.2 103/ul Normal 0.0-0.7 [facility] Comment on above: Performed By: #### B MP #### [facility] [address] [place] [address] Dr. Reji Thomas Eosinophils/100 WBC (Bld) 3.3 % Normal 0.9-7.0 [facility] Comment on above: Performed By: #### B MP #### [facility] [address] [place] [address] Dr. Reji Thomas Erythrocyte distribution width (RBC) [Ratio] 15.4 % Critically high 11.0-15.0 [facility] Comment on above: Performed By: #### B MP #### [facility] [address] [place] [address] Dr. Reji Thomas Hematocrit (Bld) [Volume fraction] 35.2 % Critically low 36.0-48.0 [facility] Comment on above: Performed By: #### B MP #### [facility] [address] [place] [address] Dr. Reji Thomas Hemoglobin (Bld) [Mass/Vol] 11.4 g/dL Critically low 12.0-16.0 [facility] Comment on above: Performed By: #### B MP #### [facility] [address] [place] [address] Dr. Reji Thomas IG # 0.02 10e3/ul Normal 0.00-0.03 [facility] Comment on above: Performed By: #### B MP #### [facility] [address] [place] [address] Dr. Reji Thomas IG % 0.3 % Normal 0.0-0.5 [facility] Comment on above: Performed By: #### B MP #### [facility] [address] [place] [address] Dr. Reji Thomas LYMPH # 1.4 103/ul Normal 1.2-3.8 [facility] Comment on above: Performed By: #### B MP #### [facility] [address] [place] [address] Dr. Reji Thomas Lymphocytes/100 WBC (Bld) 22.6 % Normal 20.5-60.0 [facility] Comment on above: Performed By: #### B MP #### [facility] [address] [place] [address] Dr. Reji Thomas MANUAL DIFF REQ NO Normal [facility] Comment on above: Performed By: #### B MP #### [facility] [address] [place] [address] Dr. Reji Thomas MCH (RBC) [Entitic mass] 27.0 pg Normal 26.7-34.0 [facility] Comment on above: Performed By: #### B MP #### [facility] [address] [place] [address] Dr. Reji Thomas MCHC (RBC) [Mass/Vol] 32.4 g/dL Normal 29.9-35.2 [facility] Comment on above: Performed By: #### B MP #### [facility] [address] [place] [address] Dr. Reji Thomas MCV (RBC) [Entitic vol] 83.2 fL Normal 81.0-99.0 [facility] Comment on above: Performed By: #### B MP #### [facility] [address] [place] [address] Dr. Reji Thomas MONO # 0.5 103/ul Normal 0.3-0.8 [facility] Comment on above: Performed By: #### B MP #### [facility] [address] [place] [address] Dr. Reji Thomas Monocytes/100 WBC (Bld) 8.5 % Normal 1.7-12.0 [facility] Comment on above: Performed By: #### B MP #### [facility] [address] [place] [address] Dr. Reji Thomas NEUT # 4.0 103/ul Normal 1.4-6.5 [facility] Comment on above: Performed By: #### B MP #### [facility] [address] [place] [address] Dr. Reji Thomas Neutrophils/100 WBC (Bld) 64.3 % Normal 43.0-75.0 [facility] Comment on above: Performed By: #### B MP #### [facility] [address] [address] [address] Reji Thomas Platelet mean volume (Bld) [Entitic vol] 8.9 fL Critically low 9.5-13.5 [facility] Comment on above: Performed By: #### B MP #### [facility] [address] [address] [address] Reji Thomas PLT 226 103/ul Normal 150-450 [facility] Comment on above: Performed By: #### B MP #### [facility] [address] [address] [address] Reji Thomas RBC 4.23 106/ul Normal 4.20-5.40 [facility] Comment on above: Performed By: #### B MP #### [facility] [address] [address] [address] Reji Thomas WBC 6.3 103/ul Normal 4.0-11.0 [facility] Comment on above: Performed By: #### B MP #### [facility] [address] [address] [address] Reji Thomas FREE THYROXINE INDEX T7on FTI 2.40 Normal 1.30-4.50 [facility] Comment on above: Performed By: #### B [employer] HEM[employer], CMP, TSH, LIPID #### [facility] [address] [place] [address] Dr. Reji Thomas T3U 32.0 % Normal 30.0-39.0 [facility] Comment on above: Performed By: #### B [employer] HEMMER, CMP, TSH, LIPID #### [facility] [address] [address] [address] Reji Thomas T4 [Mass/Vol] 7.50 ug/dL Normal 4.80-13.90 [facility] Comment on above: Performed By: #### B [employer] HEMMER, CMP, TSH, LIPID #### [facility] [address] [place] [address] Dr. Reji Thomas GLYCOHEMOGLOBIN A1Con 2022 ADA RECOMMENDATION SEE BELOW Normal [facility] Comment on above: Result Comment: ADA RECOMMENDED LIMIT 4.0 - 6.0 ADA THERAPEUTIC TARGET < 7.0 ACTION SUGGESTED > 7.0 Performed By: #### B [employer] HEMMER, CMP, TSH, LIPID #### [facility] [address] [address] [address] Reji Thomas Glucose [Mass/Vol] 97 mg/dL Normal [facility] Comment on above: Performed By: #### B [employer] HEMMER, CMP, TSH, LIPID #### [facility] [address] [address] [address] Reji Thomas HbA1c (Bld) [Mass fraction] 5.0 % Normal 4.5-6.2 [facility] Comment on above: Performed By: #### B [employer] HEMMER, CMP, TSH, LIPID #### [facility] [address] [place] [address] Dr. Reji Thomas IRONon 03-22-2023 Iron [Mass/Vol] 47.0 ug/dL Critically low 50.0-170.0 [facility] Comment on above: Performed By: #### B [employer] HEMMER, CMP, TSH, LIPID #### [facility] [address] [place] [address] Dr. Reji Thomas LIPID PROFILEon 03-22-2023 CHOL-HDL RATIO NORM SEE BELOW Normal [facility] Comment on above: Result Comment: 3.3 - 4.4 LOW RISK 4.4 - 7.1 AVERAGE RISK 7.1 - 11.0 MODERATE RISK >11.0 HIGH RISK Performed By: #### M G, TSH, LIPID, T7, CMP, BNP #### [facility] [address] [place] [address] Dr. Reji Thomas Cholesterol [Mass/Vol] 188 mg/dL Normal <=200 [facility] Comment on above: Performed By: #### M G, TSH, LIPID, T7, CMP, BNP #### [facility] [address] [address] [address] Reji Thomas Cholesterol in HDL [Mass/Vol] 53 mg/dL Normal 40-60 [facility] Comment on above: Performed By: #### M G, TSH, LIPID, T7, CMP, BNP #### [facility] [address] [address] [address] Reji Thomas Cholesterol in LDL [Mass/Vol] 111.6 mg/dL Normal [facility] Comment on above: Performed By: #### M G, TSH, LIPID, T7, CMP, BNP #### [facility] [address] [address] [address] Reji Thomas Cholesterol.total/Ch olesterol in HDL [Mass ratio] 3.5 {ratio} Normal [facility] Comment on above: Performed By: #### M G, TSH, LIPID, T7, CMP, BNP #### [facility] [address] [address] [address] Reji Thomas HDL NORMAL > or = 60 mg/dl - LOW CARDIOVASCULAR RISK <40 mg/dl - HIGH CARDIOVASCULAR RISK Normal [facility] Comment on above: Performed By: #### M G, TSH, LIPID, T7, CMP, BNP #### [facility] [address] [address] [address] Reji Thomas LDL CALC NORMAL SEE BELOW Normal [facility] Comment on above: Result Comment: <100 mg/dl OPTIMAL 100 - 129 mg/dl NEAR OR ABOVE OPTIMAL 130 - 159 mg/dl BORDERLINE HIGH 160 - 189 mg/dl HIGH >190 mg/dl VERY HIGH Performed By: #### M G, TSH, LIPID, T7, CMP, BNP #### [facility] [address] [address] [address] Reji Thomas Triglyceride [Mass/Vol] 117 mg/dL Normal <=150 [facility] Comment on above: Performed By: #### M G, TSH, LIPID, T7, CMP, BNP #### [facility] [address] [address] [address] Reji Thomas VLDL CALC 23.4 mg/dL Normal [facility] Comment on above: Performed By: #### M G, TSH, LIPID, T7, CMP, BNP #### [facility] [address] [address] [address] Reji Thomas MAGNESIUMon 03-22-2023 Magnesium [Mass/Vol] 2.4 mg/dL Normal 1.8-2.4 [facility] Comment on above: Performed By: #### B [employer] HEMMER, CMP, TSH, LIPID #### [facility] [address] [address] [address] Reji Thomas PROF 14(COMP METB)on 023 Albumin [Mass/Vol] 3.4 g/dL Normal 3.4-5.0 [facility] Comment on above: Performed By: #### M G, TSH, LIPID, T7, CMP, BNP #### [facility] [address] [address] [address] Reji Thomas Albumin/Globulin [Mass ratio] 0.8 {ratio} Normal [facility] Comment on above: Performed By: #### M G, TSH, LIPID, T7, CMP, BNP #### [facility] [address] [place] [address] Dr. Reji Thomas ALP [Catalytic activity/Vol] 61 U/L Normal 46-116 [facility] Comment on above: Performed By: #### M G, TSH, LIPID, T7, CMP, BNP #### [facility] [address] [place] [address] Dr. Reji Thomas ALT [Catalytic activity/Vol] 15 U/L Normal 14-59 [facility] Comment on above: Performed By: #### M G, TSH, LIPID, T7, CMP, BNP #### [facility] [address] [address] [address] Reji Thomas Anion gap [Moles/Vol] 13.1 mmol/L Normal [facility] Comment on above: Performed By: #### M G, TSH, LIPID, T7, CMP, BNP #### [facility] [address] [place] [address] Dr. Reji Thomas AST [Catalytic activity/Vol] 13 U/L Critically low 15-37 [facility] Comment on above: Performed By: #### M G, TSH, LIPID, T7, CMP, BNP #### [facility] [address] [place] [address] Dr. Reji Thomas Bilirubin [Mass/Vol] 0.4 mg/dL Normal 0.2-1.0 [facility] Comment on above: Performed By: #### M G, TSH, LIPID, T7, CMP, BNP #### [facility] [address] [address] [address] Reji Thomas Calcium [Mass/Vol] 8.5 mg/dL Normal 8.5-10.1 [facility] Comment on above: Performed By: #### M G, TSH, LIPID, T7, CMP, BNP #### [facility] [address] [place] [address] Dr. Reji Thomas Chloride [Moles/Vol] 106 mmol/L Normal 98-107 [facility] Comment on above: Performed By: #### M G, TSH, LIPID, T7, CMP, BNP #### [facility] [address] [place] [address] Dr. Reji Thomas CO2 [Moles/Vol] 27.6 mmol/L Normal 21.0-32.0 [facility] Comment on above: Performed By: #### M G, TSH, LIPID, T7, CMP, BNP #### [facility] [address] [place] [address] Dr. Reji Thomas Creatinine [Mass/Vol] 2.32 mg/dL Critically high 0.55-1.02 [facility] Comment on above: Performed By: #### M G, TSH, LIPID, T7, CMP, BNP #### [facility] [address] [place] [address] Dr. Reji Thomas EGFR-AF GUYANESE 24 mL/min/1.73m2 Critically low >=60 [facility] Comment on above: Performed By: #### M G, TSH, LIPID, T7, CMP, BNP #### [facility] [address] [place] [address] Dr. Reji Thomas EGFR-NON AF GUYANESE 20 mL/min/1.73m2 Critically low >=60 [facility] Comment on above: Performed By: #### M G, TSH, LIPID, T7, CMP, BNP #### [facility] [address] [place] [address] Dr. Reji Thomas Globulin (S) [Mass/Vol] 4.3 g/dL Normal [facility] Comment on above: Performed By: #### M G, TSH, LIPID, T7, CMP, BNP #### [facility] [address] [address] [address] Reji Thomas Glucose [Mass/Vol] 88 mg/dL Normal 74-106 [facility] Comment on above: Performed By: #### M G, TSH, LIPID, T7, CMP, BNP #### [facility] [address] [address] [address] Reji Thomas Potassium [Moles/Vol] 4.7 mmol/L Normal 3.5-5.1 [facility] Comment on above: Performed By: #### M G, TSH, LIPID, T7, CMP, BNP #### [facility] [address] [address] [address] Reji Thomas Protein [Mass/Vol] 7.7 g/dL Normal 6.4-8.2 [facility] Comment on above: Performed By: #### M G, TSH, LIPID, T7, CMP, BNP #### [facility] [address] [place] [address] Dr. Reji Thomas Sodium [Moles/Vol] 142 mmol/L Normal 136-145 [facility] Comment on above: Performed By: #### M G, TSH, LIPID, T7, CMP, BNP #### [facility] [address] [address] [address] Reji Thomas Urea nitrogen [Mass/Vol] 38.0 mg/dL Critically high 7.0-18.0 [facility] Comment on above: Performed By: #### M G, TSH, LIPID, T7, CMP, BNP #### [facility] [address] [place] [address] Dr. Reji Thomas Urea nitrogen/Creatinine [Mass ratio] 16.4 mg/mg Normal [facility] Comment on above: Performed By: #### M G, TSH, LIPID, T7, CMP, BNP #### [facility] [address] [place] [address] Dr. Reji Thomas PROTIMEon 03-22-2023 INR Coag (PPP) [Relative time] 1.98 {INR} Normal [facility] Comment on above: Performed By: #### P T #### [facility] [address] [place] [address] Dr. Reji Thomas INR GUIDELINES SEE BELOW Normal [facility] Comment on above: Result Comment: SHY RED INR: 2.0 - 3.0 CONDITIONS NOT LISTED BELOW 2.5 - 3.5 FOR PROSTHETIC HEART VALVE REPLACEMENT 2.5 - 3.5 RECURRENT THROMBOSIS Performed By: #### P T #### [facility] [address] [place] [address] Dr. Reji Thomas PT Coag (PPP) [Time] 20.2 s Critically high 9.0-11.6 [facility] Comment on above: Performed By: #### P T #### [facility] [address] [place] [address] Dr. Reji Thomas TSHon 03-22-2023 TSH 2.265 uIU/mL Normal 0.358-3.740 [facility] Comment on above: Performed By: #### B [employer] HEMMER, CMP, TSH, LIPID #### [facility] [address] [place] [address] Dr. Reji Thomas VITAMIN D 25 OHon 03-22-2023 VIT D 25-OH 53.1 ng/mL Normal [facility] Comment on above: Performed By: #### B MP #### [facility] [address] [place] [address] Dr. Reji Thomas VIT D RANGES SEE BELOW Normal [facility] Comment on above: Result Comment: <20 ng/mL Vit D deficient 20 - <30 ng/mL Vit D insufficient 30 - 100 ng/mL Vit D sufficient >100 ng/mL Potential Toxicity Performed By: #### B MP #### [facility] [address] [place] [address] Dr. Reji Thomas PROTIMEon 02-22-2023 INR Coag (PPP) [Relative time] 2.22 {INR} Normal [facility] Comment on above: Performed By: #### B [employer] HEMMER, CMP, TSH, LIPID #### [facility] [address] [place] [address] Dr. Reji Thomas INR GUIDELINES SEE BELOW Normal [facility] Comment on above: Result Comment: SHY RED INR: 2.0 - 3.0 CONDITIONS NOT LISTED BELOW 2.5 - 3.5 FOR PROSTHETIC HEART VALVE REPLACEMENT 2.5 - 3.5 RECURRENT THROMBOSIS Performed By: #### B [employer] HEMMER, CMP, TSH, LIPID #### [facility] [address] [place] [address] Dr. Reji Thomas PT Coag (PPP) [Time] 22.5 s Critically high 9.0-11.6 [facility] Comment on above: Performed By: #### B [employer] HEMMER, CMP, TSH, LIPID #### [facility] [address] [place] [address] Dr. Reji Thomas PROTIMEon 01-03-2023 INR Coag (PPP) [Relative time] 2.53 {INR} Normal [facility] Comment on above: Performed By: #### B MP #### [facility] [address] [place] [address] Dr. Reji Thomas INR GUIDELINES SEE BELOW Normal [facility] Comment on above: Result Comment: SHY RED INR: 2.0 - 3.0 CONDITIONS NOT LISTED BELOW 2.5 - 3.5 FOR PROSTHETIC HEART VALVE REPLACEMENT 2.5 - 3.5 RECURRENT THROMBOSIS Performed By: #### B MP #### [facility] [address] [place] [address] Dr. Reji Thomas PT Coag (PPP) [Time] 25.4 s Critically high 9.0-11.6 [facility] Comment on above: Performed By: #### B MP #### [facility] [address] [place] [address] Dr. Reji Thomas PROTIMEon 11-23-2022 INR Coag (PPP) [Relative time] 1.71 {INR} Normal [facility] Comment on above: Performed By: #### B [employer] HEMMER, CMP, TSH, LIPID #### [facility] [address] [place] [address] Dr. Reji Thomas INR GUIDELINES SEE BELOW Normal [facility] Comment on above: Result Comment: SHY RED INR: 2.0 - 3.0 CONDITIONS NOT LISTED BELOW 2.5 - 3.5 FOR PROSTHETIC HEART VALVE REPLACEMENT 2.5 - 3.5 RECURRENT THROMBOSIS Performed By: #### B [employer] HEMMER, CMP, TSH, LIPID #### [facility] [address] [place] [address] Dr. Reji Thomas PT Coag (PPP) [Time] 17.6 s Critically high 9.0-11.6 [facility] Comment on above: Performed By: #### B [employer] HEMMER, CMP, TSH, LIPID #### [facility] [address] [place] [address] Dr. Reji Thomas PROTIMEon 10-10-2022 INR Coag (PPP) [Relative time] 2.52 {INR} Normal [facility] Comment on above: Performed By: #### B [employer] HEMMER, CMP, TSH, LIPID #### [facility] [address] [place] [address] Dr. Reji Thomas INR GUIDELINES SEE BELOW Normal [facility] Comment on above: Result Comment: SHY RED INR: 2.0 - 3.0 CONDITIONS NOT LISTED BELOW 2.5 - 3.5 FOR PROSTHETIC HEART VALVE REPLACEMENT 2.5 - 3.5 RECURRENT THROMBOSIS Performed By: #### B [employer] HEMMER, CMP, TSH, LIPID #### [facility] [address] [place] [address] Dr. Reji Thomas PT Coag (PPP) [Time] 25.6 s Critically high 9.0-11.6 [facility] Comment on above: Performed By: #### B [employer] HEMMER, CMP, TSH, LIPID #### [facility] [address] [place] [address] Dr. Reji Thomas PROTIMEon 09-05-2022 INR Coag (PPP) [Relative time] 2.03 {INR} Normal [facility] Comment on above: Performed By: #### B [employer] HEMMER, CMP, TSH, LIPID #### [facility] [address] [place] [address] Dr. Reji Thomas INR GUIDELINES SEE BELOW Normal [facility] Comment on above: Result Comment: SHY RED INR: 2.0 - 3.0 CONDITIONS NOT LISTED BELOW 2.5 - 3.5 FOR PROSTHETIC HEART VALVE REPLACEMENT 2.5 - 3.5 RECURRENT THROMBOSIS Performed By: #### B [employer] HEMMER, CMP, TSH, LIPID #### [facility] [address] [place] [address] Dr. Reji Thomas PT Coag (PPP) [Time] 20.9 s Critically high 9.0-11.6 [facility] Comment on above: Performed By: #### B [employer] HEMMER, CMP, TSH, LIPID #### [facility] [facility] [address] [place] [address] Dr. Reji Thomas BNPon 08-10-2022 Natriuretic peptide B (Bld) [Mass/Vol] 1162.0 pg/mL Normal <=1,800.0 [facility] Comment on above: Performed By: #### B MP, BNP #### [facility] [address] [place] [address] Dr. Reji Thomas PROF CHEM 8 (BAS METB)on Anion gap [Moles/Vol] 11.3 mmol/L Normal [facility] Comment on above: Performed By: #### B MP, BNP #### [facility] [address] [place] [address] Dr. Reji Thomas Calcium [Mass/Vol] 8.9 mg/dL Normal 8.5-10.1 [facility] Comment on above: Performed By: #### B MP, BNP #### [facility] [address] [place] [address] Dr. Reji Thomas Chloride [Moles/Vol] 103 mmol/L Normal 98-107 [facility] Comment on above: Performed By: #### B MP, BNP #### [facility] [address] [place] [address] Dr. Reji Thomas CO2 [Moles/Vol] 28.2 mmol/L Normal 21.0-32.0 [facility] Comment on above: Performed By: #### B MP, BNP #### [facility] [address] [place] [address] Dr. Reji Thomas Creatinine [Mass/Vol] 2.07 mg/dL Critically high 0.55-1.02 [facility] Comment on above: Performed By: #### B MP, BNP #### [facility] [address] [address] [address] Reji Thomas EGFR-AF GUYANESE 28 mL/min/1.73m2 Critically low >=60 [facility] Comment on above: Performed By: #### B MP, BNP #### [facility] [address] [address] [address] Reji Thomas EGFR-NON AF GUYANESE 23 mL/min/1.73m2 Critically low >=60 [facility] Comment on above: Performed By: #### B MP, BNP #### [facility] [address] [address] [address] Reji Thomas Glucose [Mass/Vol] 88 mg/dL Normal 74-106 [facility] Comment on above: Performed By: #### B MP, BNP #### [facility] [address] [place] [address] Dr. Reji Thomas Potassium [Moles/Vol] 4.5 mmol/L Normal 3.5-5.1 [facility] Comment on above: Performed By: #### B MP, BNP #### [facility] [address] [address] [address] Reji Thomas Sodium [Moles/Vol] 138 mmol/L Normal 136-145 [facility] Comment on above: Performed By: #### B MP, BNP #### [facility] [address] [place] [address] Dr. Reji Thomas Urea nitrogen [Mass/Vol] 35.0 mg/dL Critically high 7.0-18.0 [facility] Comment on above: Performed By: #### B MP, BNP #### [facility] [address] [place] [address] Dr. Reji Thomas Urea nitrogen/Creatinine [Mass ratio] 16.9 mg/mg Normal [facility] Comment on above: Performed By: #### B MP, BNP #### [facility] [address] [address] [address] Reji Thomas PROTIMEon 08-09-2022 INR Coag (PPP) [Relative time] 2.04 {INR} Normal [facility] Comment on above: Performed By: #### B PLAIN GOODS HEMMER, CMP, TSH, LIPID #### [facility] [address] [address] [address] Reji Thomas INR GUIDELINES SEE BELOW Normal [facility] Comment on above: Result Comment: SHY RED INR: 2.0 - 3.0 CONDITIONS NOT LISTED BELOW 2.5 - 3.5 FOR PROSTHETIC HEART VALVE REPLACEMENT 2.5 - 3.5 RECURRENT THROMBOSIS Performed By: #### B PLAIN GOODS HEMMER, CMP, TSH, LIPID #### [facility] [address] [place] [address] Dr. Reji Thomas PT Coag (PPP) [Time] 21.0 s Critically high 9.0-11.6 [facility] Comment on above: Performed By: #### B PLAIN [employer] HEMMER, CMP, TSH, LIPID #### [facility] [address] [place] [address] Dr. Reji Thomas BNPon 07-09-2022 Natriuretic peptide B (Bld) [Mass/Vol] 2085.0 pg/mL Critically high <=1,800.0 [facility] Comment on above: Result Comment: CRIJanet ICAL CALLED TO OFFICE ON 07-10-22 AT 0850 BY AR Performed By: #### B PLAIN GOODS HEMMER, CMP, TSH, LIPID #### [facility] [address] [place] [address] Dr. Reji Thomas PROF CHEM 8 (BAS METB)on Anion gap [Moles/Vol] 13.7 mmol/L Normal [facility] Comment on above: Performed By: #### B PLAIN [employer] HEMMER, CMP, TSH, LIPID #### [facility] [address] [place] [address] Dr. Reji Thomas Calcium [Mass/Vol] 8.3 mg/dL Critically low 8.5-10.1 [facility] Comment on above: Performed By: #### B PLAIN [employer] HEMMER, CMP, TSH, LIPID #### [facility] [address] [place] [address] Dr. Reji Thomas Chloride [Moles/Vol] 104 mmol/L Normal 98-107 [facility] Comment on above: Performed By: #### B PLAIN GOODS HEMMER, CMP, TSH, LIPID #### [facility] [address] [address] [address] Reji Thomas CO2 [Moles/Vol] 26.6 mmol/L Normal 21.0-32.0 [facility] Comment on above: Performed By: #### B PLAIN GOODS HEMMER, CMP, TSH, LIPID #### [facility] [address] [place] [address] Dr. Reji Thomas Creatinine [Mass/Vol] 1.98 mg/dL Critically high 0.55-1.02 [facility] Comment on above: Performed By: #### B PLAIN [employer] HEMMER, CMP, TSH, LIPID #### [facility] [address] [place] [address] Dr. Reji Thomas EGFR-AF GUYANESE 29 mL/min/1.73m2 Critically low >=60 [facility] Comment on above: Performed By: #### B [employer] HEMMER, CMP, TSH, LIPID #### [facility] [address] [place] [address] Dr. Reji Thomas EGFR-NON AF GUYANESE 24 mL/min/1.73m2 Critically low >=60 [facility] Comment on above: Performed By: #### B PLAIN [employer] HEMMER, CMP, TSH, LIPID #### [facility] [address] [place] [address] Dr. Reji Thomas Glucose [Mass/Vol] 116 mg/dL Critically high 74-106 [facility] Comment on above: Performed By: #### B PLAIN [employer] HEMMER, CMP, TSH, LIPID #### [facility] [address] [place] [address] Dr. Reji Thomas Potassium [Moles/Vol] 4.3 mmol/L Normal 3.5-5.1 [facility] Comment on above: Performed By: #### B [employer] HEMMER, CMP, TSH, LIPID #### [facility] [address] [place] [address] Dr. Reji Thomas Sodium [Moles/Vol] 140 mmol/L Normal 136-145 [facility] Comment on above: Performed By: #### B PLAIN [employer] HEMMER, CMP, TSH, LIPID #### [facility] [address] [place] [address] Dr. Reji Thomas Urea nitrogen [Mass/Vol] 35.0 mg/dL Critically high 7.0-18.0 [facility] Comment on above: Performed By: #### B PLA[employer] HEMMER, CMP, TSH, LIPID #### [facility] [address] [place] [address] Dr. Reji Thomas Urea nitrogen/Creatinine [Mass ratio] 17.7 mg/mg Normal [facility] Comment on above: Performed By: #### B PLAIN [employer] HEMMER, CMP, TSH, LIPID #### [facility] [address] [place] [address] Dr. Reji Thomas PROTIMEon 07-09-2022 INR Coag (PPP) [Relative time] 2.99 {INR} Normal [facility] Comment on above: Performed By: #### B PLAIN [employer] HEMMER, CMP, TSH, LIPID #### [facility] [address] [place] [address] Dr. Reji Thomas INR GUIDELINES SEE BELOW Normal [facility] Comment on above: Result Comment: SHY RED INR: 2.0 - 3.0 CONDITIONS NOT LISTED BELOW 2.5 - 3.5 FOR PROSTHETIC HEART VALVE REPLACEMENT 2.5 - 3.5 RECURRENT THROMBOSIS Performed By: #### B PLAIN [employer] HEMMER, CMP, TSH, LIPID #### [facility] [address] [place] [address] Dr. Reji Thomas PT Coag (PPP) [Time] 30.1 s Critically high 9.0-11.6 [facility] Comment on above: Performed By: #### B [employer]IN [employer] HEMMER, CMP, TSH, LIPID #### [facility] [address] [place] [address] Dr. Reji Thomas US KIDNEYSon 07-06-2022 US [...] SIGRID RICHMOND Date: 2022-07-06 13:31 Normal [facility] EVAN Antinuclear Antibodieson 06-19-2022 Antinuclear Abs, IFA Positive Critically abnormal . [facility] Comment on above: Result Comment: Nega tive <1:80 Borderline 1:80 Positive >1:80 Performed By: #### COURTNEY GOMEZONUAPLUS #### [facility] [address] [place] [address] #### C3, C4, CH50 #### [facility] , Homogeneous Pattern 1:320 High . [facility] Comment on above: Result Comment: ICAP nomenclature: [id number] Performed By: #### COURTNEY GOMEZONUAPLUS #### [facility] [address] [place] [address] #### C3, C4, CH50 #### [facility] , Note 1 Normal . [facility] Comment on above: Result Comment: For [...] titers Nucleosomes, Histones Drug-induced SLE Speckled Sm, FOOD AND BEVERAGE OUTLETS MANAGER, SCL-70, SLE,MCTD,PSS (diffuse form), SS-A/SS-B Sjogrens Nucleolar SCL-70, PM-1/SCL High titers Scleroderma, PM/DM Centromere Centromere PSS (limited form) w/Crest syndrome variable Nuclear Dot Sp100,n60-hysrio Primary Biliary Cirrhosis Nuclear GP210, Primary Biliary Cirrhosis Membrane eleonora A,B,C Performed at: [address] [id number] Physiotherapy Aide: Demarcus Lawton PhD, Phone: [phone] Performed By: #### C UU, ADDONUAPLUS #### [address] #### C3, C4, CH50 #### [facility] , Anti-RNPon 06-19-2022 Anti-FOOD AND BEVERAGE OUTLETS MANAGER 0.4 Normal 0.0-0.9 [facility] Comment on above: Result Comment: Perf ormed at: [address] [id number] Physiotherapy Aide: Demarcus Lawton PhD, Phone: [phone] Performed By: #### C UU, ADDONUAPLUS #### [address] #### C3, C4, CH50 #### [facility] , C-Reactive Proteinon 022 C-Reactive Protein 2.0 mg/dL High 0.0-1.[address] [facility] Comment on above: Result Comment: PERF ORMED BY: [place] [address] PATHOLOGIST MOTION GRAPHICS DESIGNER RADHA BULLARD M.D. Performed By: #### C UU, ADDONUAPLUS #### [address] #### C3, C4, CH50 #### [facility] , Complement C3on 06-19-2022 Complement C3 167 mg/dL Normal 82-167 [facility] Comment on above: Result Comment: Perf ormed at: [address] [id number] Physiotherapy Aide: Demarcus Lawton PhD, Phone: [phone] Performed By: #### C UU, ADDONUAPLUS #### [address] #### C3, C4, CH50 #### [facility] , Complement C4on 06-19-2022 Complement C4 37 mg/dL Normal 12-38 [facility] Comment on above: Performed By: #### C UU, ADDONUAPLUS #### [address] #### C3, C4, CH50 #### [facility] , Complement Total (CH50)on Complement Total (CH50) >60 Normal >41 [facility] Comment on above: Result Comment: Age [...] determine out of range values. Performed at: - [facility] [id number] Physiotherapy Aide: Demarcus Lawton PhD, Phone: [phone] PERFORMED BY: [place] [address] PATHOLOGIST MOTION GRAPHICS DESIGNER RADHA BULLARD M.D. Performed By: #### C UU, ADDONUAPLUS #### [address] #### C3, C4, CH50 #### [facility] , Complete Blood Count Auto Di ffon 06-19-2022 Basophils (Bld) [#/Vol] 0.1 10*3/uL Normal 0.0-0.2 [facility] Comment on above: Performed By: #### H EPATIC, CBC, ESR, CRP, CREAT, CK #### [address] #### RNA POLYMR, ANTI TH TO, EVAN, U3 FOOD AND BEVERAGE OUTLETS MANAGER, ANTIR, PM-SCL ABS #### [facility] , Basophils/100 WBC (Bld) 0.9 % Normal . [facility] Comment on above: Performed By: #### H EPATIC, CBC, ESR, CRP, CREAT, CK #### [address] #### RNA POLYMR, ANTI TH TO, EVAN, U3 FOOD AND BEVERAGE OUTLETS MANAGER, ANTIR, PM-SCL ABS #### [facility] , Eosinophils (Bld) [#/Vol] 0.5 10*3/uL High 0.0-0.45 [facility] Comment on above: Performed By: #### H EPATIC, CBC, ESR, CRP, CREAT, CK #### [place] [address] [place] #### RNA POLYMR, ANTI TH TO, EVAN, U3 FOOD AND BEVERAGE OUTLETS MANAGER, ANTIR, PM-SCL ABS #### [facility] , Eosinophils/100 WBC (Bld) 8.6 % Normal . [facility] Comment on above: Performed By: #### H EPATIC, CBC, ESR, CRP, CREAT, CK #### [place] [address] [place] #### RNA POLYMR, ANTI TH TO, EVAN, U3 FOOD AND BEVERAGE OUTLETS MANAGER, ANTIR, PM-SCL ABS #### [facility] , Erythrocyte distribution width (RBC) [Ratio] 19.6 % High 11.9-15.3 [facility] Comment on above: Performed By: #### H EPATIC, CBC, ESR, CRP, CREAT, CK #### [place] [address] [place] #### RNA POLYMR, ANTI TH TO, EVAN, U3 FOOD AND BEVERAGE OUTLETS MANAGER, ANTIR, PM-SCL ABS #### [facility] , Hematocrit (Bld) [Volume fraction] 33.8 % Low 34.0-46.4 [facility] Comment on above: Performed By: #### H EPATIC, CBC, ESR, CRP, CREAT, CK #### [place] [address] [place] #### RNA POLYMR, ANTI TH TO, EVAN, U3 FOOD AND BEVERAGE OUTLETS MANAGER, ANTIR, PM-SCL ABS #### [facility] , Hemoglobin (Bld) [Mass/Vol] 10.9 g/dL Low 11.8-15.4 [facility] Comment on above: Performed By: #### H EPATIC, CBC, ESR, CRP, CREAT, CK #### [place] [address] [place] #### RNA POLYMR, ANTI TH TO, EVAN, U3 FOOD AND BEVERAGE OUTLETS MANAGER, ANTIR, PM-SCL ABS #### [facility] , Lymphocytes (Bld) [#/Vol] 1.1 10*3/uL Normal 1.00-4.8 [facility] Comment on above: Performed By: #### H EPATIC, CBC, ESR, CRP, CREAT, CK #### [place] [address] [place] #### RNA POLYMR, ANTI TH TO, EVAN, U3 FOOD AND BEVERAGE OUTLETS MANAGER, ANTIR, PM-SCL ABS #### [facility] , Lymphocytes/100 WBC (Bld) 17.8 % Normal . [facility] Comment on above: Performed By: #### H EPATIC, CBC, ESR, CRP, CREAT, CK #### [place] [address] [place] #### RNA POLYMR, ANTI TH TO, EVAN, U3 FOOD AND BEVERAGE OUTLETS MANAGER, ANTIR, PM-SCL ABS #### [facility] , MCH (RBC) [Entitic mass] 26.4 pg Normal 24.7-34.3 [facility] Comment on above: Performed By: #### H EPATIC, CBC, ESR, CRP, CREAT, CK #### [place] [address] [place] #### RNA POLYMR, ANTI TH TO, EVAN, U3 FOOD AND BEVERAGE OUTLETS MANAGER, ANTIR, PM-SCL ABS #### [facility] , MCV (RBC) [Entitic vol] 81.8 fL Normal 80-100 [facility] Comment on above: Performed By: #### H EPATIC, CBC, ESR, CRP, CREAT, CK #### [place] [address] [place] #### RNA POLYMR, ANTI TH TO, EVAN, U3 FOOD AND BEVERAGE OUTLETS MANAGER, ANTIR, PM-SCL ABS #### [facility] , Mean Corpuscular HGB Conc 32.3 g/dL Normal 32.0-35.0 [facility] Comment on above: Performed By: #### H EPATIC, CBC, ESR, CRP, CREAT, CK #### [address] #### RNA POLYMR, ANTI TH TO, EVAN, U3 FOOD AND BEVERAGE OUTLETS MANAGER, ANTIR, PM-SCL ABS #### [facility] , Monocytes (Bld) [#/Vol] 0.4 10*3/uL Normal 0.0-0.8 [facility] Comment on above: Performed By: #### H EPATIC, CBC, ESR, CRP, CREAT, CK #### [place] [address] [place] #### RNA POLYMR, ANTI TH TO, VEAN, U3 FOOD AND BEVERAGE OUTLETS MANAGER, ANTIR, PM-SCL ABS #### [facility] , Monocytes/100 WBC (Bld) 7.4 % Normal . [facility] Comment on above: Performed By: #### H EPATIC, CBC, ESR, CRP, CREAT, CK #### [place] [address] [place] #### RNA POLYMR, ANTI TH TO, EVAN, U3 FOOD AND BEVERAGE OUTLETS MANAGER, ANTIR, PM-SCL ABS #### [facility] , Neutrophils (Bld) [#/Vol] 3.9 10*3/uL Normal 1.8-7.7 [facility] Comment on above: Performed By: #### H EPATIC, CBC, ESR, CRP, CREAT, CK #### [place] [address] [place] #### RNA POLYMR, ANTI TH TO, EVAN, U3 FOOD AND BEVERAGE OUTLETS MANAGER, ANTIR, PM-SCL ABS #### [facility] , Neutrophils/100 WBC (Bld) 65.3 % Normal . [facility] Comment on above: Performed By: #### H EPATIC, CBC, ESR, CRP, CREAT, CK #### [place] [address] [place] #### RNA POLYMR, ANTI TH TO, EVAN, U3 FOOD AND BEVERAGE OUTLETS MANAGER, ANTIR, PM-SCL ABS #### [facility] , Nucleated RBC/100 WBC (Bld) [Ratio] 0.0 % Normal 0-0.5 [facility] Comment on above: Performed By: #### H EPATIC, CBC, ESR, CRP, CREAT, CK #### [place] [address] [place] #### RNA POLYMR, ANTI TH TO, EVAN, U3 FOOD AND BEVERAGE OUTLETS MANAGER, ANTIR, PM-SCL ABS #### [facility] , Platelet mean volume (Bld) [Entitic vol] 7.2 fL Normal 6.3-10.7 [facility] Comment on above: Performed By: #### H EPATIC, CBC, ESR, CRP, CREAT, CK #### [place] [address] [place] #### RNA POLYMR, ANTI TH TO, EVAN, U3 FOOD AND BEVERAGE OUTLETS MANAGER, ANTIR, PM-SCL ABS #### [facility] , Platelets (Bld) [#/Vol] 237 10*3/uL Normal 150-450 [facility] Comment on above: Performed By: #### H EPATIC, CBC, ESR, CRP, CREAT, CK #### [place] [address] [place] #### RNA POLYMR, ANTI TH TO, EVAN, U3 FOOD AND BEVERAGE OUTLETS MANAGER, ANTIR, PM-SCL ABS #### [facility] , RBC (Bld) [#/Vol] 4.14 10*6/uL Normal 3.60-5.00 [facility] Comment on above: Performed By: #### H EPATIC, CBC, ESR, CRP, CREAT, CK #### [address] #### RNA POLYMR, ANTI TH TO, EVAN, U3 FOOD AND BEVERAGE OUTLETS MANAGER, ANTIR, PM-SCL ABS #### [facility] , WBC (Bld) [#/Vol] 6.0 10*3/uL Normal 4.5-11.[address] [facility] Comment on above: Performed By: #### H EPATIC, CBC, ESR, CRP, CREAT, CK #### [address] #### RNA POLYMR, ANTI TH TO, EVAN, U3 FOOD AND BEVERAGE OUTLETS MANAGER, ANTIR, PM-SCL ABS #### [facility] , Creatine Kinaseon 06-19-2022 CK [Catalytic activity/Vol] 38 U/L Normal 22-269 [facility] Comment on above: Result Comment: PERF ORMED BY: [place] [address] PATHOLOGIST MOTION GRAPHICS DESIGNER RADHA BULLARD M.D. Performed By: #### H EPATIC, CBC, ESR, CRP, CREAT, CK #### [address] #### RNA POLYMR, ANTI TH TO, EVAN, U3 FOOD AND BEVERAGE OUTLETS MANAGER, ANTIR, PM-SCL ABS #### [facility] , Creatinineon 06-19-2022 Creatinine [Mass/Vol] 2.82 mg/dL High 0.44-1.03 [facility] Comment on above: Performed By: #### H EPATIC, CBC, ESR, CRP, CREAT, CK #### [place] [address] [place] #### RNA POLYMR, ANTI TH TO, EVAN, U3 FOOD AND BEVERAGE OUTLETS MANAGER, ANTIR, PM-SCL ABS #### [facility] , Estimated GFR ( Oralia 19 Normal [facility] Comment on above: Result Comment: GFR estimated reference range: According to KDOQI guidelines, <60 ml/min/1.73m2 is sufficient to diagnose a patient with chronic kidney disease. Performed By: #### H EPATIC, CBC, ESR, CRP, CREAT, CK #### [facility] [address] [place] [address] [place] #### RNA POLYMR, ANTI TH TO, EVAN, U3 FOOD AND BEVERAGE OUTLETS MANAGER, ANTIR, PM-SCL ABS #### [facility] , Estimated GFR (Non- Am 16 Normal [facility] Comment on above: Performed By: #### H EPATIC, CBC, ESR, CRP, CREAT, CK #### [facility] [address] [place] [address] [place] #### RNA POLYMR, ANTI TH TO, EVAN, U3 FOOD AND BEVERAGE OUTLETS MANAGER, ANTIR, PM-SCL ABS #### [facility] , Dipstick and Microscopicon 0 06-19-2022 Appearance (U) Cloudy Critically abnormal Clear [facility] Comment on above: Order Comment: Name Collection Type:: Clean-Voided Midstream Performed By: #### C UU, ADDONUAPLUS #### [address] #### C3, C4, CH50 #### [facility] , Bacteria,Urine 1+ High None Seen [facility] Comment on above: Order Comment: Name Collection Type:: Clean-Voided Midstream Performed By: #### C UU, ADDONUAPLUS #### [facility] [address] [place] [address] [place] #### C3, C4, CH50 #### [facility] , Bilirubin,Urine Negative Normal Negative [facility] Comment on above: Order Comment: Name Collection Type:: Clean-Voided Midstream Performed By: #### C UU, ADDONUAPLUS #### [place] [address] [place] #### C3, C4, CH50 #### [facility] , Color (U) Yellow Normal Yellow [facility] Comment on above: Order Comment: Name Collection Type:: Clean-Voided Midstream Performed By: #### C UU, ADDONUAPLUS #### [address] #### C3, C4, CH50 #### [facility] , Glucose Ql (U) Normal Normal Normal [facility] Comment on above: Order Comment: Name Collection Type:: Clean-Voided Midstream Performed By: #### C UU, ADDONUAPLUS #### [address] #### C3, C4, CH50 #### [facility] , Hyaline Casts,Urine 1-2 Normal 0-8 [facility] Comment on above: Order Comment: Name Collection Type:: Clean-Voided Midstream Result Comment: PERF ORMED BY: [place] [address] PATHOLOGIST MOTION GRAPHICS DESIGNER RADHA BULLARD M.D. Performed By: #### C UU, ADDONUAPLUS #### [address] #### C3, C4, CH50 #### [facility] , Ketones Ql (U) Negative Normal Negative [facility] Comment on above: Order Comment: Name Collection Type:: Clean-Voided Midstream Performed By: #### C UU, ADDONUAPLUS #### [facility] [address] [place] [address] #### C3, C4, CH50 #### [facility] , Leukocyte esterase Test strip Ql (U) 4+ High Negative [facility] Comment on above: Order Comment: Name Collection Type:: Clean-Voided Midstream Performed By: #### C UU, ADDONUAPLUS #### [place] [address] [place] #### C3, C4, CH50 #### [facility] , Nitrite,Urine Negative Normal Negative [facility] Comment on above: Order Comment: Name Collection Type:: Clean-Voided Midstream Performed By: #### C UU, ADDONUAPLUS #### [facility] [address] [place] [address] #### C3, C4, CH50 #### [facility] , Occult Blood,Urine 1+ High Negative [facility] Comment on above: Order Comment: Name Collection Type:: Clean-Voided Midstream Performed By: #### C UU, ADDONUAPLUS #### [address] #### C3, C4, CH50 #### [facility] , pH (U) 6.5 [pH] Normal 5.0-9.0 [facility] Comment on above: Order Comment: Name Collection Type:: Clean-Voided Midstream Performed By: #### C UU, ADDONUAPLUS #### [address] #### C3, C4, CH50 #### [facility] , Protein,Urine Trace High Negative [facility] Comment on above: Order Comment: Name Collection Type:: Clean-Voided Midstream Performed By: #### C UU, ADDONUAPLUS #### [facility] [address] [place] [address] #### C3, C4, CH50 #### [facility] , RBC,Urine 1-2 Normal 0-4 [facility] Comment on above: Order Comment: Name Collection Type:: Clean-Voided Midstream Performed By: #### C UU, ADDONUAPLUS #### [facility] [address] [place] [address] #### C3, C4, CH50 #### [facility] , Specificy [place],Urine 1.010 Normal 1.001-1.030 [facility] Comment on above: Order Comment: Name Collection Type:: Clean-Voided Midstream Performed By: #### C UU, ADDONUAPLUS #### [address] #### C3, C4, CH50 #### [facility] , Squamous Epithelial Cell,Urine 5-9 High 0-2 [facility] Comment on above: Order Comment: Name Collection Type:: Clean-Voided Midstream Performed By: #### C UU, ADDONUAPLUS #### [address] #### C3, C4, CH50 #### [facility] , Urobilinogen,Urine Normal Normal Normal [facility] Comment on above: Order Comment: Name Collection Type:: Clean-Voided Midstream Performed By: #### C UU, ADDONUAPLUS #### [address] #### C3, C4, CH50 #### [facility] , WBC,Urine Innumerable High 0-4 [facility] Comment on above: Order Comment: Name Collection Type:: Clean-Voided Midstream Performed By: #### C UU, ADDONUAPLUS #### [address] #### C3, C4, CH50 #### [facility] , Erythrocyte Sedimentation Ra pratik 06-19-2022 ESR (Bld) [Velocity] 57 mm/h High 0-29 [facility] Comment on above: Result Comment: PERF ORMED BY: [place] [address] PATHOLOGIST MOTION GRAPHICS DESIGNER RADHA BULLARD M.D. Performed By: #### H EPATIC, CBC, ESR, CRP, CREAT, CK #### [facility] [address] [place] [address] [place] #### RNA POLYMR, ANTI TH TO, EVAN, U3 FOOD AND BEVERAGE OUTLETS MANAGER, ANTIR, PM-SCL ABS #### [facility] , Hepatic Panelon 06-19-2022 Albumin [Mass/Vol] 3.6 g/dL Normal 3.2-5.[address] [facility] Comment on above: Performed By: #### H EPATIC, CBC, ESR, CRP, CREAT, CK #### [facility] [address] [place] [address] [place] #### RNA POLYMR, ANTI TH TO, EVAN, U3 FOOD AND BEVERAGE OUTLETS MANAGER, ANTIR, PM-SCL ABS #### [facility] , Albumin/Globulin [Mass ratio] 1.0 {ratio} Normal [facility] Comment on above: Performed By: #### H EPATIC, CBC, ESR, CRP, CREAT, CK #### [facility] [address] [place] [address] [place] #### RNA POLYMR, ANTI TH TO, EVAN, U3 FOOD AND BEVERAGE OUTLETS MANAGER, ANTIR, PM-SCL ABS #### [facility] , ALP [Catalytic activity/Vol] 68 U/L Normal 32-92 [facility] Comment on above: Performed By: #### H EPATIC, CBC, ESR, CRP, CREAT, CK #### [place] [address] [place] #### RNA POLYMR, ANTI TH TO, EVAN, U3 [employer]OD AND BEVERAGE OUTLETS MANAGER, ANTIR, PM-SCL ABS #### [facility] , ALT [Catalytic activity/Vol] 9 U/L Low 10-60 [facility] Comment on above: Performed By: #### H EPATIC, CBC, ESR, CRP, CREAT, CK #### [facility] [address] [place] [address] [place] #### RNA POLYMR, ANTI TH TO, EVAN, U3 FOOD AND BEVERAGE OUTLETS MANAGER, ANTIR, PM-SCL ABS #### [facility] , AST [Catalytic activity/Vol] 15 U/L Normal 10-42 [facility] Comment on above: Performed By: #### H EPATIC, CBC, ESR, CRP, CREAT, CK #### [place] [address] [place] #### RNA POLYMR, ANTI TH TO, EVAN, U3 FOOD AND BEVERAGE OUTLETS MANAGER, ANTIR, PM-SCL ABS #### [facility] , Bilirubin [Mass/Vol] 0.6 mg/dL Normal 0.3-1.2 [facility] Comment on above: Performed By: #### H EPATIC, CBC, ESR, CRP, CREAT, CK #### [address] #### RNA POLYMR, ANTI TH TO, EVAN, U3 FOOD AND BEVERAGE OUTLETS MANAGER, ANTIR, PM-SCL ABS #### [facility] , Bilirubin,Indirect 0.4 mg/dL Normal [facility] Comment on above: Performed By: #### H EPATIC, CBC, ESR, CRP, CREAT, CK #### [place] [address] [place] #### RNA POLYMR, ANTI TH TO, EVAN, U3 FOOD AND BEVERAGE OUTLETS MANAGER, ANTIR, PM-SCL ABS #### [facility] , Bilirubin.indirect [Mass/Vol] 0.2 mg/dL Normal 0.0-0.4 [facility] Comment on above: Performed By: #### H EPATIC, CBC, ESR, CRP, CREAT, CK #### [place] [address] [place] #### RNA POLYMR, ANTI TH TO, EVAN, U3 FOOD AND BEVERAGE OUTLETS MANAGER, ANTIR, PM-SCL ABS #### [facility] , Globulin (S) [Mass/Vol] 3.5 g/dL Normal [facility] Comment on above: Performed By: #### H EPATIC, CBC, ESR, CRP, CREAT, CK #### [place] [address] [place] #### RNA POLYMR, ANTI TH TO, EVAN, U3 FOOD AND BEVERAGE OUTLETS MANAGER, ANTIR, PM-SCL ABS #### [facility] , Protein [Mass/Vol] 7.1 g/dL Normal 6.1-7.[address] [facility] Comment on above: Performed By: #### H EPATIC, CBC, ESR, CRP, CREAT, CK #### [facility] [address] [place] [address] #### RNA POLYMR, ANTI TH TO, EVAN, U3 FOOD AND BEVERAGE OUTLETS MANAGER, ANTIR, PM-SCL ABS #### [facility] , PM-SCL Antibodieson 06-19-20 22 RAIZA PM-Scl Antibody <20 Normal <20 [facility] Comment on above: Result Comment: This test was developed and its performance characteristics determined by [facility]. It has not been cleared or approved by the Food and Drug Administration. Negative: <20 Weak Positive: 20 - 39 Moderate Positive: 40 - 80 Strong Positive: >80 Performed at: [facility] [address] [place] [address] [id number] Physiotherapy Aide: Artemio Nair MD, Phone: [phone] Performed By: #### C UU, ADDONUAPLUS #### [address] #### C3, C4, CH50 #### [facility] , RNA Polymerase IIion 022 RNA Polymerase IIi <20 Normal <[address] [facility] Comment on above: Result Comment: Nega tive: <20 Weak Positive: 20 - 39 Moderate Positive: 40 - 80 Strong Positive: >80 Performed at: [facility] [address] [place] [address] [id number] Physiotherapy Aide: Artemio Nair MD, Phone: [phone] PERFORMED BY: [place] [address] PATHOLOGIST MOTION GRAPHICS DESIGNER RADHA BULLARD M.D. Performed By: #### C UU, ADDONUAPLUS #### [place] [address] [place] #### C3, C4, CH50 #### [facility] , Th/To Antibodyon 06-19-2022 Th/To Antibody Negative Normal Negative [facility] Comment on above: Result Comment: This test was developed and its performance characteristics determined by [facility]. It has not been cleared or approved by the Food and Drug Administration. Performed at: [facility] [address] [place] [address] [id number] Physiotherapy Aide: Artemio Nair MD, Phone: [phone] Performed By: #### C UU, ADDONUAPLUS #### [address] #### C3, C4, CH50 #### [facility] , U3 Rnpon 06-19-2022 U3 Publications Manager Negative Normal Negative [facility] Comment on above: Result Comment: This test was developed and its performance characteristics determined by [facility]. It has not been cleared or approved by the Food and Drug Administration. Performed at: [facility] [address] [place] [address] [id number] Physiotherapy Aide: Artemio Nair MD, Phone: [phone] PERFORMED BY: [place] [address] PATHOLOGIST MOTION GRAPHICS DESIGNER RADHA BULLARD M.D. Performed By: #### C UU, ADDONUAPLUS #### [address] #### C3, C4, CH50 #### [facility] , Urine Cultureon 06-19-2022 Bacteria identified Cx Nom (U) No Growth 2 Days PERFORMED BY: [place] [address] PATHOLOGIST MOTION GRAPHICS DESIGNER RADHA BULLARD M.D. Normal [facility] Comment on above: Performed By: #### C UU, ADDONUAPLUS #### [address] #### C3, C4, CH50 #### [facility] , PROF CHEM 8 (BAS METB)on Anion gap [Moles/Vol] 12.5 mmol/L Normal [facility] Comment on above: Performed By: #### B MP #### [facility] [address] [address] [address] Reji Thomas Calcium [Mass/Vol] 8.9 mg/dL Normal 8.5-10.1 [facility] Comment on above: Performed By: #### B MP #### [facility] [address] [address] [address] Reji Thomas Chloride [Moles/Vol] 103 mmol/L Normal 98-107 [facility] Comment on above: Performed By: #### B MP #### [facility] [address] [address] [address] Reji Thomas CO2 [Moles/Vol] 26.1 mmol/L Normal 21.0-32.0 [facility] Comment on above: Performed By: #### B MP #### [facility] [address] [address] [address] Reji Thomas Creatinine [Mass/Vol] 2.09 mg/dL Critically high 0.55-1.02 [facility] Comment on above: Performed By: #### B MP #### [facility] [address] [address] [address] Reji Thomas EGFR-AF GUYANESE 27 mL/min/1.73m2 Critically low >=60 [facility] Comment on above: Performed By: #### B MP #### [facility] [address] [address] [address] Reji Thomas EGFR-NON AF GUYANESE 23 mL/min/1.73m2 Critically low >=60 [facility] Comment on above: Performed By: #### B MP #### [facility] [address] [address] [address] Reji Thomas Glucose [Mass/Vol] 96 mg/dL Normal 74-106 [facility] Comment on above: Performed By: #### B MP #### [facility] [address] [address] [address] Reji Thomas Potassium [Moles/Vol] 4.6 mmol/L Normal 3.5-5.1 [facility] Comment on above: Performed By: #### B MP #### [facility] [address] [address] [address] Reji Thomas Sodium [Moles/Vol] 137 mmol/L Normal 136-145 [facility] Comment on above: Performed By: #### B MP #### [facility] [address] [address] [address] Reji Thomas Urea nitrogen [Mass/Vol] 38.0 mg/dL Critically high 7.0-18.0 [facility] Comment on above: Performed By: #### B MP #### [facility] [address] [place] [address] Dr. Reji Thomas Urea nitrogen/Creatinine [Mass ratio] 18.2 mg/mg Normal [facility] Comment on above: Performed By: #### B MP #### [facility] [address] [place] [address] Dr. Reji Thomas PROTIMEon 06-04-2022 INR Coag (PPP) [Relative time] 2.51 {INR} Normal [facility] Comment on above: Performed By: #### B PLAIN GOODS HEMMER, CMP, TSH, LIPID #### [facility] [address] [place] [address] Dr. Reji Thomas INR GUIDELINES SEE BELOW Normal [facility] Comment on above: Result Comment: SHY RED INR: 2.0 - 3.0 CONDITIONS NOT LISTED BELOW 2.5 - 3.5 FOR PROSTHETIC HEART VALVE REPLACEMENT 2.5 - 3.5 RECURRENT THROMBOSIS Performed By: #### B PLAIN GOODS HEMMER, CMP, TSH, LIPID #### [facility] [address] [place] [address] Dr. Reji Thomas PT Coag (PPP) [Time] 25.5 s Critically high 9.0-11.6 [facility] Comment on above: Performed By: #### B PLAIN GOODS HEMMER, CMP, TSH, LIPID #### [facility] [address] [place] [address] Dr. Reji Thomas BNPon 05-15-2022 Natriuretic peptide B (Bld) [Mass/Vol] 3661.0 pg/mL Critically high <=1,800.0 [facility] Comment on above: Performed By: #### B PLAIN GOODS HEMMER, CMP, TSH, LIPID #### [facility] [address] [place] [address] Dr. Reji Thomas CBC AUTO DIFFon 05-15-2022 BASO # 0.1 103/ul Normal 0.0-0.1 [facility] Comment on above: Performed By: #### B MP #### [facility] [address] [place] [address] Dr. Reji Thomas Basophils/100 WBC (Bld) 1.1 % Normal 0.2-2.0 [facility] Comment on above: Performed By: #### B MP #### [facility] [address] [place] [address] Dr. Reji Thomas EO # 0.5 103/ul Normal 0.0-0.7 [facility] Comment on above: Performed By: #### B MP #### [facility] [address] [place] [address] Dr. Reji Thomas Eosinophils/100 WBC (Bld) 6.5 % Normal 0.9-7.0 [facility] Comment on above: Performed By: #### B MP #### [facility] [address] [place] [address] Dr. Reji Thomas Erythrocyte distribution width (RBC) [Ratio] 16.1 % Critically high 11.0-15.0 [facility] Comment on above: Performed By: #### B MP #### [facility] [address] [place] [address] Dr. Reji Thomas Hematocrit (Bld) [Volume fraction] 35.0 % Critically low 36.0-48.0 [facility] Comment on above: Performed By: #### B MP #### [facility] [address] [place] [address] Dr. Reji Thomas Hemoglobin (Bld) [Mass/Vol] 11.1 g/dL Critically low 12.0-16.0 [facility] Comment on above: Performed By: #### B MP #### [facility] [address] [place] [address] Dr. Reji Thomas IG # 0.02 10e3/ul Normal 0.00-0.03 [facility] Comment on above: Performed By: #### B MP #### [facility] [address] [address] [address] Reji Thomas IG % 0.3 % Normal 0.0-0.5 [facility] Comment on above: Performed By: #### B MP #### [facility] [address] [place] [address] Dr. Reji Thomas LYMPH # 1.6 103/ul Normal 1.2-3.8 [facility] Comment on above: Performed By: #### B MP #### [facility] [address] [place] [address] Dr. Reji Thomas Lymphocytes/100 WBC (Bld) 22.4 % Normal 20.5-60.0 [facility] Comment on above: Performed By: #### B MP #### [facility] [address] [place] [address] Dr. Reji Thomas MANUAL DIFF REQ NO Normal [facility] Comment on above: Performed By: #### B MP #### [facility] [address] [place] [address] Dr. Reji Thomas MCH (RBC) [Entitic mass] 26.4 pg Critically low 26.7-34.0 [facility] Comment on above: Performed By: #### B MP #### [facility] [address] [place] [address] Dr. Reji Thomas MCHC (RBC) [Mass/Vol] 31.7 g/dL Normal 29.9-35.2 [facility] Comment on above: Performed By: #### B MP #### [facility] [address] [place] [address] Dr. Reji Thomas MCV (RBC) [Entitic vol] 83.1 fL Normal 81.0-99.0 [facility] Comment on above: Performed By: #### B MP #### [facility] [address] [address] [address] Reji Thomas MONO # 0.9 103/ul Critically high 0.3-0.8 [facility] Comment on above: Performed By: #### B MP #### [facility] [address] [place] [address] Dr. Reji Thomas Monocytes/100 WBC (Bld) 12.1 % Critically high 1.7-12.0 [facility] Comment on above: Performed By: #### B MP #### [facility] [address] [place] [address] Dr. Reji Thomas NEUT # 4.1 103/ul Normal 1.4-6.5 [facility] Comment on above: Performed By: #### B MP #### [facility] [address] [place] [address] Dr. Reji Thomas Neutrophils/100 WBC (Bld) 57.6 % Normal 43.0-75.0 [facility] Comment on above: Performed By: #### B MP #### [facility] [address] [place] [address] Dr. Reji Thomas Platelet mean volume (Bld) [Entitic vol] 8.8 fL Critically low 9.5-13.5 [facility] Comment on above: Performed By: #### B MP #### [facility] [address] [place] [address] Dr. Reji Thomas PLT 253 103/ul Normal 150-450 [facility] Comment on above: Performed By: #### B MP #### [facility] [address] [place] [address] Dr. Reji Thomas RBC 4.21 106/ul Normal 4.20-5.40 [facility] Comment on above: Performed By: #### B MP #### [facility] [address] [place] [address] Dr. Reji Thomas WBC 7.1 103/ul Normal 4.0-11.0 [facility] Comment on above: Performed By: #### B MP #### [facility] [address] [place] [address] Dr. Reji Thomas PROF CHEM 8 (BAS METB)on Anion gap [Moles/Vol] 10.5 mmol/L Normal [facility] Comment on above: Performed By: #### B PLAIN GOODS HEMMER, CMP, TSH, LIPID #### [facility] [address] [address] [address] Reji Thomas Calcium [Mass/Vol] 8.9 mg/dL Normal 8.5-10.1 [facility] Comment on above: Performed By: #### B PLAIN GOODS HEMMER, CMP, TSH, LIPID #### [facility] [address] [address] [address] Reji Thomas Chloride [Moles/Vol] 104 mmol/L Normal 98-107 [facility] Comment on above: Performed By: #### B PLAIN GOODS HEMMER, CMP, TSH, LIPID #### [facility] [address] [address] [address] Reji Thomas CO2 [Moles/Vol] 29.5 mmol/L Normal 21.0-32.0 [facility] Comment on above: Performed By: #### B PLAIN GOODS HEMMER, CMP, TSH, LIPID #### [facility] [address] [address] [address] Reji Thomas Creatinine [Mass/Vol] 1.73 mg/dL Critically high 0.55-1.02 [facility] Comment on above: Performed By: #### B PLAIN GOODS HEMMER, CMP, TSH, LIPID #### [facility] [address] [address] [address] Reji Thomas EGFR-AF GUYANESE 34 mL/min/1.73m2 Critically low >=60 [facility] Comment on above: Performed By: #### B PLAIN GOODS HEMMER, CMP, TSH, LIPID #### [facility] [address] [address] [address] Reji Thomas EGFR-NON AF GUYANESE 28 mL/min/1.73m2 Critically low >=60 [facility] Comment on above: Performed By: #### B PLAIN GOODS HEMMER, CMP, TSH, LIPID #### [facility] [address] [address] [address] Reji Thomas Glucose [Mass/Vol] 79 mg/dL Normal 74-[address] [facility] Comment on above: Performed By: #### B PLAIN GOODS HEMMER, CMP, TSH, LIPID #### [facility] [address] [address] [address] Reji Thomas Potassium [Moles/Vol] 4.0 mmol/L Normal 3.5-5.1 [facility] Comment on above: Performed By: #### B PLAIN GOODS HEMMER, CMP, TSH, LIPID #### [facility] [address] [place] [address] Dr. Reji Thomas Sodium [Moles/Vol] 140 mmol/L Normal 136-145 [facility] Comment on above: Performed By: #### B PLAIN GOODS HEMMER, CMP, TSH, LIPID #### [facility] [address] [place] [address] Dr. Reji Thomas Urea nitrogen [Mass/Vol] 22.0 mg/dL Critically high 7.0-18.0 [facility] Comment on above: Performed By: #### B PLAIN GOODS HEMMER, CMP, TSH, LIPID #### [facility] [address] [place] [address] Dr. Reji Thomas Urea nitrogen/Creatinine [Mass ratio] 12.7 mg/mg Normal [facility] Comment on above: Performed By: #### B PLAIN GOODS HEMMER, CMP, TSH, LIPID #### [facility] [address] [place] [address] Dr. Reji Thomas PROTIMEon 05-15-2022 INR Coag (PPP) [Relative time] 2.53 {INR} Normal [facility] Comment on above: Performed By: #### B PLAIN GOODS HEMMER, CMP, TSH, LIPID #### [facility] [address] [place] [address] Dr. Reji Thomas INR GUIDELINES SEE BELOW Normal [facility] Comment on above: Result Comment: SHY RED INR: 2.0 - 3.0 CONDITIONS NOT LISTED BELOW 2.5 - 3.5 FOR PROSTHETIC HEART VALVE REPLACEMENT 2.5 - 3.5 RECURRENT THROMBOSIS Performed By: #### B PLAIN GOODS HEMMER, CMP, TSH, LIPID #### [facility] [address] [place] [address] Dr. Reji Thomas PT Coag (PPP) [Time] 25.7 s Critically high 9.0-11.6 [facility] Comment on above: Performed By: #### B PLAIN GOODS HEMMER, CMP, TSH, LIPID #### [facility] [address] [place], [place] [address] Dr. Reji Thomas ECHOCARDIO M/2D COMPLETEon 0 05-04-2022 ECHOCARDIO M/2D COMPLETE Patient: INEZ JUAREZ Exam Date: 05/04/2022 : 1940 Gender:F Ordering : DR JENN PRADO M.D. Admission #: [id number] Family : Order #: [id number] CLICK HERE TO VIEW EXAM ECHOCARDIOGRAM REPORT [...] Area(A4C): 27.20 cm2 Left Atrium Systolic Volume(A2C): 201606 mm3 Left Atrium Systolic Volume(A4C): 19485 mm3 Mitral Valve MV E to A Ratio: 2.60 Deceleration Shasta: 73309 mm/s2 Mitral Valve A-Wave Peak Velocity: 58.60 [...] Prado M.D. on 05/07/2022 at 11:39 Normal [facility] EVAN by IFAon 04-19-2022 Antinuclear Antibodies, IFA Positive Abnormal [facility] Comment on above: Result Comment: Nega tive <1:80 Borderline 1:80 Positive >1:80 Performed By: #### B PLAIN GOODS HEMMER, CMP, TSH, LIPID #### [facility] [address] [address] [address] Reji Thomas Centriole Pattern Normal [facility] Comment on above: Performed By: #### B PLAIN GOODS HEMMER, CMP, TSH, LIPID #### [facility] [address] [address] [address] Reji Thomas Centromere Pattern Normal [facility] Comment on above: Performed By: #### B PLAIN GOODS HEMMER, CMP, TSH, LIPID #### [facility] [id number] Reji Thomas Homogeneous Pattern 1:320 Critically high [facility] Comment on above: Result Comment: ICAP nomenclature: AC-1 Performed By: #### B PLAIN GOODS HEMMER, CMP, TSH, LIPID #### [facility] [address] [address] [address] Reji Thomas Midbody Pattern Normal [facility] Comment on above: Performed By: #### B PLAIN GOODS HEMMER, CMP, TSH, LIPID #### [facility] [address] [address] [address] Reji Thoams Note: Comment Normal [facility] Comment on above: Result Comment: For [...] titers Nucleosomes, Histones Drug-induced SLE Speckled Sm, FOOD AND BEVERAGE OUTLETS MANAGER, SCL-70, SLE,MCTD,PSS (diffuse form), SS-A/SS-B Sjogrens Nucleolar SCL-70, PM-1/SCL High titers Scleroderma, PM/DM Centromere Centromere PSS (limited form) w/Crest syndrome variable Nuclear Dot [id number] Primary Biliary Cirrhosis Nuclear GP210, Primary Biliary Cirrhosis Membrane eleonora A,B,C Performed By: #### B PLAIN GOODS HEMMER, CMP, TSH, LIPID #### [facility] [address] [place] [address] Dr. Reji Thomas Nuclear Dot Pattern Normal [facility] Comment on above: Performed By: #### B PLAIN GOODS HEMMER, CMP, TSH, LIPID #### [facility] [address] [place] [address] Dr. Reji Thomas Nuclear Membrane Pattern Normal [facility] Comment on above: Performed By: #### B PLAIN GOODS HEMMER, CMP, TSH, LIPID #### [facility] [address] [place] [address] Dr. Reji Thomas Nucleolar Pattern Normal [facility] Comment on above: Performed By: #### B PLAIN GOODS HEMMER, CMP, TSH, LIPID #### [facility] [address] [address] [address] Reji Thomas PCNA Pattern Normal [facility] Comment on above: Performed By: #### B PLAIN GOODS HEMMER, CMP, TSH, LIPID #### [facility] [address] [address] [address] Reji Thomas Speckled Pattern Normal [facility] Comment on above: Performed By: #### B PLAIN GOODS HEMMER, CMP, TSH, LIPID #### [facility] [address] [address] [address] Reji Thomas Spindle Apparatus Pattern Normal [facility] Comment on above: Performed By: #### B PLAIN GOODS HEMMER, CMP, TSH, LIPID #### [facility] [address] [address] [address] Reji Thomas ANCA (ANTINEUTROPHIL CYTOPLA MSMIC ABon 04-18-2022 Atypical pANCA <1:20 Normal Neg:<1:20 [facility] Comment on above: Result Comment: Seru m is slightly hemolyzed The atypical pANCA pattern has been observed in a significant percentage of patients with ulcerative colitis, primary sclerosing cholangitis and autoimmune hepatitis. Performed By: #### B MP #### [facility] [address] [address] [address] Reji Thomas Cytoplasmic (C-ANCA) <1:20 Normal Neg:<1:20 [facility] Comment on above: Result Comment: Seru m is slightly hemolyzed Performed By: #### B MP #### [facility] [address] [place] [address] Dr. Reji Thomas Perinuclear (P-ANCA) <1:20 Normal Neg:<1:20 [facility] Comment on above: Result Comment: Seru m is slightly hemolyzed The presence of positive fluorescence exhibiting P-ANCA or C-ANCA patterns alone is not specific for the diagnosis of Arlene's Granulomatosis (WG) or microscopic polyangiitis. Decisions about treatment should not be based solely on ANCA IFA results. The [employer] ANCA [employer] Consensus recommends follow up testing of positive sera with both SD-3 and MPO-ANCA enzyme immunoassays. As many as 5% serum samples are positive only by EIA. Ref. AM J Clin Pathol 1999;111:507-513. Performed By: #### B MP #### [facility] [address] [place] [address] Dr. Reji Thomas ANTISCLERODERMA ABon 022 Antiscleroderma-70 Antibodies 0.3 AI Normal 0.0-0.9 [facility] Comment on above: Performed By: #### [employer], CMP, TSH, LIPID #### [facility] [address] [place] [address] Dr. Reji Thomas T3 UPTAKEon 04-18-2022 Free Thyroxine Index 1.8 Normal 1.2-4.9 [facility] Comment on above: Performed By: #### [employer], CMP, TSH, LIPID #### [facility] [address] [place] [address] Dr. Reji Thomas T3 Uptake 23 % Critically low 24-39 [facility] Comment on above: Performed By: #### [employer], CMP, TSH, LIPID #### [facility] [address] [place] [address] Dr. Reji Thomas T4 LABCORPon 04-18-2022 T4 [Mass/Vol] 7.8 ug/dL Normal 4.5-12.0 [facility] Comment on above: Performed By: #### [employer], CMP, TSH, LIPID #### [facility] [address] [place] [address] Dr. Reji Thomas BNPon 04-16-2022 Natriuretic peptide B (Bld) [Mass/Vol] 2870.0 pg/mL Critically high <=1,800.0 [facility] Comment on above: Result Comment: repe ated Performed By: #### [employer], CMP, TSH, LIPID #### [facility] [address] [place] [address] Dr. Reji Thomas CBC AUTO DIFFon 04-16-2022 BASO # 0.1 103/ul Normal 0.0-0.1 [facility] Comment on above: Performed By: #### [employer], CMP, TSH, LIPID #### [facility] [address] [place] [address] Dr. Reji Thomas Basophils/100 WBC (Bld) 0.9 % Normal 0.2-2.0 [facility] Comment on above: Performed By: #### [employer], CMP, TSH, LIPID #### [facility] [address] [place] [address] Dr. Reji Thomas EO # 0.3 103/ul Normal 0.0-0.7 [facility] Comment on above: Performed By: #### [employer], CMP, TSH, LIPID #### [facility] [address] [place] [address] Dr. Reji Thomas Eosinophils/100 WBC (Bld) 3.9 % Normal 0.9-7.0 [facility] Comment on above: Performed By: #### [employer], CMP, TSH, LIPID #### [facility] [address] [place] [address] Dr. Reji Thomas Erythrocyte distribution width (RBC) [Ratio] 15.9 % Critically high 11.0-15.0 [facility] Comment on above: Performed By: #### [employer], CMP, TSH, LIPID #### [facility] [address] [place] [address] Dr. Reji Thomas Hematocrit (Bld) [Volume fraction] 38.1 % Normal 36.0-48.0 [facility] Comment on above: Performed By: #### [employer], CMP, TSH, LIPID #### [facility] [address] [place] [address] Dr. Reji Thomas Hemoglobin (Bld) [Mass/Vol] 12.1 g/dL Normal 12.0-16.0 [facility] Comment on above: Performed By: #### [employer], CMP, TSH, LIPID #### [facility] [address] [place] [address] Dr. Reji Thomas IG # 0.02 10e3/ul Normal 0.00-0.03 [facility] Comment on above: Performed By: #### [employer], CMP, TSH, LIPID #### [facility] [address] [place] [address] Dr. Reji Thomas IG % 0.3 % Normal 0.0-0.5 [facility] Comment on above: Performed By: #### [employer], CMP, TSH, LIPID #### [facility] [address] [place] [address] Dr. Reji Thomas LYMPH # 1.6 103/ul Normal 1.2-3.8 [facility] Comment on above: Performed By: #### [employer], CMP, TSH, LIPID #### [facility] [address] [place] [address] Dr. Reji Thomas Lymphocytes/100 WBC (Bld) 22.6 % Normal 20.5-60.0 [facility] Comment on above: Performed By: #### [employer], CMP, TSH, LIPID #### [facility] [address] [place] [address] Dr. Reji Thomas MANUAL DIFF REQ NO Normal [facility] Comment on above: Performed By: #### [employer], CMP, TSH, LIPID #### [facility] [address] [place] [address] Dr. Reji Thomas MCH (RBC) [Entitic mass] 26.5 pg Critically low 26.7-34.0 [facility] Comment on above: Performed By: #### [employer], CMP, TSH, LIPID #### [facility] [address] [place] [address] Dr. Reji Thomas MCHC (RBC) [Mass/Vol] 31.8 g/dL Normal 29.9-35.2 [facility] Comment on above: Performed By: #### [employer], CMP, TSH, LIPID #### [facility] [address] [place] [address] Dr. Reji Thomas MCV (RBC) [Entitic vol] 83.4 fL Normal 81.0-99.0 [facility] Comment on above: Performed By: #### [employer], CMP, TSH, LIPID #### [facility] [address] [place] [address] Dr. Reji Thomas MONO # 0.6 103/ul Normal 0.3-0.8 [facility] Comment on above: Performed By: #### [employer], CMP, TSH, LIPID #### [facility] [address] [place] [address] Dr. Reji Thomas Monocytes/100 WBC (Bld) 9.3 % Normal 1.7-12.0 [facility] Comment on above: Performed By: #### [employer], CMP, TSH, LIPID #### [facility] [address] [place] [address] Dr. Reji Thomas NEUT # 4.3 103/ul Normal 1.4-6.5 [facility] Comment on above: Performed By: #### [employer], CMP, TSH, LIPID #### [facility] [address] [place] [address] Dr. Reji Thomas Neutrophils/100 WBC (Bld) 63.0 % Normal 43.0-75.0 [facility] Comment on above: Performed By: #### [employer], CMP, TSH, LIPID #### [facility] [address] [place] [address] Dr. Reji Thomas Platelet mean volume (Bld) [Entitic vol] 9.2 fL Critically low 9.5-13.5 [facility] Comment on above: Performed By: #### [employer], CMP, TSH, LIPID #### [facility] [address] [place] [address] Dr. Reji Thomas PLT 211 103/ul Normal 150-450 [facility] Comment on above: Performed By: #### [employer], CMP, TSH, LIPID #### [facility] [address] [place] [address] Dr. Reji Thomas RBC 4.57 106/ul Normal 4.20-5.40 [facility] Comment on above: Performed By: #### [employer], CMP, TSH, LIPID #### [facility] [address] [place] [address] Dr. Reji Thomas WBC 6.9 103/ul Normal 4.0-11.0 [facility] Comment on above: Performed By: #### [employer], CMP, TSH, LIPID #### [facility] [address] [place] [address] Dr. Reji Thomas GLYCOHEMOGLOBIN A1Con 2021 ADA RECOMMENDATION SEE BELOW Normal [facility] Comment on above: Result Comment: ADA RECOMMENDED LIMIT 4.0 - 6.0 ADA THERAPEUTIC TARGET < 7.0 ACTION SUGGESTED > 7.0 Performed By: #### [employer], CMP, TSH, LIPID #### [facility] [address] [address] [address] Reji Thomas Glucose [Mass/Vol] 100 mg/dL Normal [facility] Comment on above: Performed By: #### [employer], CMP, TSH, LIPID #### [facility] [address] [address] [address] Reji Thomas HbA1c (Bld) [Mass fraction] 5.1 % Normal 4.5-6.2 [facility] Comment on above: Performed By: #### [employer], CMP, TSH, LIPID #### [facility] [address] [place] [address] Dr. Reji Thomas IRONon 04-16-2022 Iron [Mass/Vol] 42.0 ug/dL Critically low 50.0-170.0 [facility] Comment on above: Performed By: #### [employer], CMP, TSH, LIPID #### [facility] [address] [place] [address] Dr. Reji Thomas LIPID PROFILEon 04-16-2022 CHOL-HDL RATIO NORM SEE BELOW Normal [facility] Comment on above: Result Comment: 3.3 - 4.4 LOW RISK 4.4 - 7.1 AVERAGE RISK 7.1 - 11.0 MODERATE RISK >11.0 HIGH RISK Performed By: #### [employer], CMP, TSH, LIPID #### [facility] [address] [address] [address] Reji Thomas Cholesterol [Mass/Vol] 176 mg/dL Normal <=200 [facility] Comment on above: Performed By: #### [employer], CMP, TSH, LIPID #### [facility] [address] [address] [address] Reji Thomas Cholesterol in HDL [Mass/Vol] 52 mg/dL Normal 40-60 [facility] Comment on above: Performed By: #### [employer], CMP, TSH, LIPID #### [facility] [address] [address] [address] Reji Thomas Cholesterol in LDL [Mass/Vol] 102.8 mg/dL Normal [facility] Comment on above: Performed By: #### [employer], CMP, TSH, LIPID #### [facility] [address] [address] [address] Reji Thomas Cholesterol.total/Ch olesterol in HDL [Mass ratio] 3.4 {ratio} Normal [facility] Comment on above: Performed By: #### [employer], CMP, TSH, LIPID #### [facility] [address] [address] [address] Reji Thomas HDL NORMAL > or = 60 mg/dl - LOW CARDIOVASCULAR RISK <40 mg/dl - HIGH CARDIOVASCULAR RISK Normal [facility] Comment on above: Performed By: #### [employer], CMP, TSH, LIPID #### [facility] [address] [place] [address] Dr. Reji Thomas LDL CALC NORMAL SEE BELOW Normal [facility] Comment on above: Result Comment: <100 mg/dl OPTIMAL 100 - 129 mg/dl NEAR OR ABOVE OPTIMAL 130 - 159 mg/dl BORDERLINE HIGH 160 - 189 mg/dl HIGH >190 mg/dl VERY HIGH Performed By: #### [employer], CMP, TSH, LIPID #### [facility] [address] [address] [address] Reji Thomas Triglyceride [Mass/Vol] 106 mg/dL Normal <=150 [facility] Comment on above: Performed By: #### [employer], CMP, TSH, LIPID #### [facility] [address] [place] [address] Dr. Reji Thomas VLDL CALC 21.2 mg/dL Normal [facility] Comment on above: Performed By: #### [employer], CMP, TSH, LIPID #### [facility] [address] [place] [address] Dr. Reji Thomas PROF 14(COMP METB)on 022 Albumin [Mass/Vol] 3.6 g/dL Normal 3.4-5.0 [facility] Comment on above: Performed By: #### [employer], CMP, TSH, LIPID #### [facility] [address] [address] [address] Reji Thomas Albumin/Globulin [Mass ratio] 0.9 {ratio} Normal [facility] Comment on above: Performed By: #### [employer], CMP, TSH, LIPID #### [facility] [address] [address] [address] Reji Thomas ALP [Catalytic activity/Vol] 62 U/L Normal 46-116 [facility] Comment on above: Performed By: #### [employer], CMP, TSH, LIPID #### [facility] [address] [place] [address] Dr. Reji Thomas ALT [Catalytic activity/Vol] 14 U/L Normal 14-59 [facility] Comment on above: Performed By: #### [employer] HEMMER, CMP, TSH, LIPID #### [facility] [address] [place] [address] Dr. Reji Thomas Anion gap [Moles/Vol] 14.5 mmol/L Normal [facility] Comment on above: Performed By: #### [employer], CMP, TSH, LIPID #### [facility] [address] [place] [address] Dr. Reji Thomas AST [Catalytic activity/Vol] 17 U/L Normal 15-37 [facility] Comment on above: Performed By: #### [employer], CMP, TSH, LIPID #### [facility] [address] [address] [address] Reji Thomas Bilirubin [Mass/Vol] 0.6 mg/dL Normal 0.2-1.0 [facility] Comment on above: Performed By: #### [employer], CMP, TSH, LIPID #### [facility] [address] [address] [address] Reji Thomas Calcium [Mass/Vol] 8.8 mg/dL Normal 8.5-10.1 [facility] Comment on above: Performed By: #### [employer], CMP, TSH, LIPID #### [facility] [address] [place] [address] Dr. Reji Thomas Chloride [Moles/Vol] 102 mmol/L Normal 98-107 [facility] Comment on above: Performed By: #### [employer], CMP, TSH, LIPID #### [facility] [address] [place] [address] Dr. Reji Thomas CO2 [Moles/Vol] 26.3 mmol/L Normal 21.0-32.0 [facility] Comment on above: Performed By: #### [employer], CMP, TSH, LIPID #### [facility] [address] [place] [address] Dr. Reji Thomas Creatinine [Mass/Vol] 1.76 mg/dL Critically high 0.55-1.02 [facility] Comment on above: Performed By: #### [employer], CMP, TSH, LIPID #### [facility] [address] [place] [address] Dr. Reji Thomas EGFR-AF GUYANESE 33 mL/min/1.73m2 Critically low >=60 [facility] Comment on above: Performed By: #### [employer], CMP, TSH, LIPID #### [facility] [address] [place] [address] Dr. Reji Thomas EGFR-NON AF GUYANESE 28 mL/min/1.73m2 Critically low >=60 [facility] Comment on above: Performed By: #### [employer], CMP, TSH, LIPID #### [facility] [address] [place] [address] Dr. Reji Thomas Globulin (S) [Mass/Vol] 4.2 g/dL Normal [facility] Comment on above: Performed By: #### [employer], CMP, TSH, LIPID #### [facility] [address] [place] [address] Dr. Reji Thomas Glucose [Mass/Vol] 81 mg/dL Normal 74-106 [facility] Comment on above: Performed By: #### [employer], CMP, TSH, LIPID #### [facility] [address] [place] [address] Dr. Reji Thomas Potassium [Moles/Vol] 3.8 mmol/L Normal 3.5-5.1 [facility] Comment on above: Performed By: #### [employer], CMP, TSH, LIPID #### [facility] [address] [place] [address] Dr. Reji Thomas Protein [Mass/Vol] 7.8 g/dL Normal 6.4-8.2 [facility] Comment on above: Performed By: #### [employer], CMP, TSH, LIPID #### [facility] [address] [place] [address] Dr. Reji Thomas Sodium [Moles/Vol] 139 mmol/L Normal 136-145 [facility] Comment on above: Performed By: #### [employer], CMP, TSH, LIPID #### [facility] [address] [address] [address] Reji Thomas Urea nitrogen [Mass/Vol] 27.0 mg/dL Critically high 7.0-18.0 [facility] Comment on above: Performed By: #### [employer], CMP, TSH, LIPID #### [facility] [address] [place] [address] Dr. Reji Thomas Urea nitrogen/Creatinine [Mass ratio] 15.3 mg/mg Normal [facility] Comment on above: Performed By: #### [employer], CMP, TSH, LIPID #### [facility] [address] [place] [address] Dr. Reji Thomas PROTIMEon 04-16-2022 INR Coag (PPP) [Relative time] 1.92 {INR} Normal [facility] Comment on above: Performed By: #### [employer], CMP, TSH, LIPID #### [facility] [address] [place] [address] Dr. Reji Thomas INR GUIDELINES SEE BELOW Normal [facility] Comment on above: Result Comment: SHY RED INR: 2.0 - 3.0 CONDITIONS NOT LISTED BELOW 2.5 - 3.5 FOR PROSTHETIC HEART VALVE REPLACEMENT 2.5 - 3.5 RECURRENT THROMBOSIS Performed By: #### [employer], CMP, TSH, LIPID #### [facility] [address] [place] [address] Dr. Reji Thomas PT Coag (PPP) [Time] 19.9 s Critically high 9.0-11.6 [facility] Comment on above: Performed By: #### [employer], CMP, TSH, LIPID #### [facility] [address] [address] [address] Reji Thomas [facility] SED RATE 37 mm/hr Critically high <=30 [facility] Comment on above: Performed By: #### [employer], CMP, TSH, LIPID #### [facility] [address] [place] [address] Dr. Reji Thomas TSHon 04-16-2022 TSH 1.941 uIU/mL Normal 0.358-3.740 [facility] Comment on above: Performed By: #### [employer], CMP, TSH, LIPID #### [facility] [address] [place] [address] Dr. Reji Thomas TSH RANGE SEE BELOW Normal [facility] Comment on above: Result Comment: <0.3 4 UIU/ml HYPERTHYROID 0.34-5.60 UIU/ml EUTHYROID >5.60 UIU/ml HYPOTHYROID Performed By: #### [employer], CMP, TSH, LIPID #### [facility] [address] [place] [address] Dr. Reji Thomas VITAMIN D 25 OHon 04-16-2022 VIT D 25-OH 56.6 ng/mL Normal [facility] Comment on above: Performed By: #### [employer], CMP, TSH, LIPID #### [facility] [address] [place] [address] Dr. Reji Thomas VIT D RANGES SEE BELOW Normal [facility] Comment on above: Result Comment: <20 ng/mL Vit D deficient 20 - <30 ng/mL Vit D insufficient 30 - 100 ng/mL Vit D sufficient >100 ng/mL Potential Toxicity Performed By: #### [employer], CMP, TSH, LIPID #### [facility] [address] [place] [address] Dr. Reji Thomas Cardiovascular Lab Reporton 11-02-2021 Cardiovascular Lab Report [facility] Patient Name: Inez Juarez MR #: [id number] [facility] Physician: Jenn Prado M.D. Department of Service Date: 11/01/2021 Medicine Birthdate: 1940 Division of Room #: Cardiology Adult Cardiovascular Services [address] [address] Cardiovascular Laboratory Report INDICATION: The patient is [...] She signed consent. 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 The right neck area was prepped and draped in usual fashion. Micropuncture technique and ultrasound guidance were used for access in the right internal jugular vein. A 6-Tunisian x 11 cm sheath was placed. A 6-Tunisian Hernández catheter was used for heart catheterization [...] Prado M.D. Date Trans: 11/01/2021 11:22 P/alondra [id number] cc: Bruce Rizvi M.D. [address] [place] [address] [place] [facility] Cardiovascular Lab Reporton 06-02-2021 Cardiovascular Lab Report [facility] Patient Name: Inez Juarez MR #: [id number] [facility] Physician: Jenn Prado M.D. Department of Service Date: 06/02/2021 Medicine Birthdate: 1940 Division of Room #: CC Cardiology Adult Cardiovascular Services [address] [place] [address] Cardiovascular Laboratory Report INDICATION: The patient is [...] the informed consent. 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 The right neck area was prepped and draped in usual fashion. Using micropuncture technique and ultrasound guidance, the right internal jugular vein was accessed and a 6-Tunisian x 11 cm sheath was placed. A 6-Tunisian Hernández catheter was used for heart catheterization [...] Prado M.D. Date Trans: 06/02/2021 02:42 P/alondra [id number] cc: Bruce Rizvi M.D. [place] [address] [facility] [place] [address] [facility] Encounters Encounter Date Encounter Type Care Provider Facility Start: 12-13-2023 End: 12-13-2023 ambulatory [facility] Start: 10-30-2023 End: 10-30-2023 ambulatory [facility] Start: 10-22-2023 End: 10-22-2023 ambulatory ANTONY YOPTA [facility] Start: 05-20-2023 End: 05-20-2023 ambulatory JENN PRADO [facility] Start: 03-22-2023 End: 03-23-[address] [...] Start: 11-01-2021 End: 11-02-2021 ambulatory PROVIDER UNKNOWN Facility:[facility] Start: 06-02-2021 End: 06-03-2021 ambulatory PROVIDER UNKNOWN Facility:[facility] Payers Date Payer Category Payer Medicare [id number] 1961 Medicare [id number] 1961 Medicare [id number] 1961 Self-pay [id number] 1940 Unknown [id number] 2.16.8 [id number] 1940 Unknown [id number] 2.16.8 40.1.970971.3.579.2.647 1938 Unknown [id number] 2.16.84 0.1.827736.3.579.2.593 1938 Unknown [id number] 2.16.84 0.1.934084.3.579.2.593 1938 Unknown [id number] 2.16.84 0.1.848536.3.579.2.593 1938 Unknown [id number] 2.16.84 0.1.626944.3.579.2.593 1938 Unknown [id number] 2.16.84 0.1.482445.3.579.2.593 1938 Unknown [id number] 2.16.84 0.1.612791.3.579.2.593 1938 Unknown [id number] 2.16.84 0.1.024311.3.579.2.593 1938 Unknown [id number] 2.16.84 0.1.643933.3.579.2.593 1938 Unknown [id number] 2.16.84 0.1.438080.3.579.2.593 1938 Unknown [id number] 2.16.84 0.1.241022.3.579.2.593 1938 Unknown [id number] 2.16.84 0.1.741377.3.579.2.593 1938 Unknown [id number] 2.16.84 0.1.112949.3.579.2.593 1938 Unknown [id number] 2.16.84 0.1.953128.3.579.2.593 1938 Unknown [id number] 2.16.84 0.1.403097.3.579.2.593 1938 Unknown [id number] 2.16.84 0.1.442787.3.579.2.593 1938 Unknown [id number] 2.16.84 0.1.969417.3.579.2.593 1938 Unknown [id number] 2.16.84 0.1.120075.3.579.2.593 1938 Unknown [id number] 2.16.84 0.1.099222.3.579.2.593 1938 Unknown [id number] 2.16.84 0.1.045649.3.579.2.593 Private Health Insurance [id number] [id number] Progress note 12-13-2023 Note Date & Type Note Facility 12-13-2023 Note ID Cardiology - [facility] Petrona Juarez is a 83 y.o. year old female patient being seen for 2 mo follow up pulmonary hypertension. She had echo last week and BMP drawn this morning. Denies chest pain, SOB, lightheadedness/syncope, and bleeding on warfarin. Patient Active Problem List Diagnosis Atrial fibrillation (CMS/HCC) Essential hypertension Hyperlipidemia Gastroesophageal reflux disease Mitral valve disorder Pulmonary hypertension (CMS/HCC) Renal failure syndrome CHF (congestive heart failure) (CMS/HCC) Chronic kidney disease Gout Abnormal result of cardiovascular function study, unspecified Cardiomegaly Other ill-defined heart diseases Family History Problem Relation Name Age of [...] the morning and 40 mg in evening. at last visit of 10/30/2023 she was taking sildenafil twice daily. I asked her to take it 3 times daily. A follow-up echocardiogram 11/04/2024 was performed and showed severe pulmonary hypertension, With an RVSP of 85 mmHg. Today she reports that she has felt better on the increased dosage of sildenafil. She has shortness of breath WHO FC class II. No chest pain. No syncope although she says that she is sometimes off balance. She has mild lower extremity edema. Review of Systems Eyes: Positive for blurred vision. Cardiovascular: Positive for leg swelling (intermittent). Hematologic/Lymphatic: Bruises/bleeds easily. Musculoskeletal: Positive for gout. All other systems reviewed and are negative. Objective Visit Vitals BP 137/68 (BP Location: Right arm, Patient Position: Sitting) Pulse 71 Ht 1.524 m (5') Wt 63 kg (139 lb) SpO2 93% BMI 27.15 kg/m??? OB Status Postmenopausal Smoking Status Never BSA 1.63 m??? Physical Exam Constitutional: Appearance: She is well-developed. She is not ill-appearing. Comments: Thin appearing HENT: Head: Normocephalic and atraumatic. Nose: Nose james (more content not included)... [facility] Progress note 10-30-2023 Note Date & Type Note Facility 10-30-2023 Note ID Cardiology - [facility] Petrona Juarez is a 83 y.o. year old [...] Murmur heard. Systol (more content not included)... [facility] Clinical Note 10-22-2023 Note Date & Type Note Facility 10-22-2023 Note Patient: Inez foss Procedure Information Date/Time: 10/22/23 0830 Procedure: Right heart cath Location: [facility] PART TIME 3 / [facility] (Cath) Providers: Antony Smith MD [...] with fellow and attending. Additional Equipment Requests [facility] Clinical Note 10-15-2023 Note Date & Type Note Facility 10-15-[address] Smith regarding warfarin. Dr Smith requested warfarin to be held for 3 days prior to procedure. [facility] Progress note 09-19-2023 Note Date & Type Note Facility 09-19-2023 Note [facility] Progress note 05-20-2023 Note Date & Type Note Facility 05-20-2023 Note [facility] Subjective Inez Juarez is a 83 [...] present. Comments: Large (more content not included)... [facility] Summary Purpose Family History No Family History Records FoundNo Family History Records FoundNo Family History Records FoundNo Family History Records Found Advance Directives No Advanced Directives Records FoundNo Advanced Directives Records FoundNo Advanced Directives Records FoundNo Advanced Directives Records Found Additional Source Comments INFORMATION SOURCE (unrecogn ized section and content) DATE CREATED AUTHOR 11/03/2021 [facility] DATE CREATED AUTHOR AUTHOR'S ORGANIZ ATION 07/05/2022 [facility] DATE CREATED AUTHOR AUTHOR'S ORGANIZ ATION 03/23/2023 [facility] DATE CREATED AUTHOR AUTHOR'S ORGANIZ ATION 12/14/2023 [facility] FOR RECORDS PERTAINING TO PATIENTS WHO ARE [...] BE BASED ON THE PRIMARY CLINICAL RECORDS. [facility]. provides no warranty or guarantee of the accuracy or completeness of information in this document.
[2024-03-10 14:00] LABS: Basophils Absolute Auto 0.1 10^3/uL (0.0-0.1); Basophils Percent Auto 1.1 % (0.2-2.0); Eosinophils Absolute Auto 0.3 10^3/uL (0.0-0.7); Eosinophils Percent Auto 4.5 % (0.9-7.0); Hematocrit 36.4 % (36.0-48.0); Hemoglobin 11.3 g/dL (12.0-16.0); Immature Granulocytes Abs Auto 0.03 10^3/uL (0.00-0.03); Immature Granulocytes Pct Auto 0.5 % (0.0-0.5); Lymphocytes Absolute Auto 1.4 10^3/uL (1.2-3.8); Lymphocytes Percent Auto 20.9 % (20.5-60.0); Mean Corpuscular Hemoglobin 25.7 pg (26.7-34.0); Mean Corpuscular Volume 82.7 fL (81.0-99.0); Mean Platelet Volume 8.8 fL (9.5-13.5); Monocytes Absolute Auto 0.6 10^3/uL (0.3-0.8); Monocytes Percent Auto 9.1 % (1.7-12.0); Neutrophils Absolute Auto 4.2 10^3/uL (1.4-6.5); Neutrophils Percent Auto 63.9 % (43.0-75.0); Platelet Count 212 10^3/uL (150-450); Red Cell Distribution Width 16.9 % (11.0-15.0); White Blood Count 6.6 10^3/uL (4.0-11.0)
[2024-03-10 14:04] LABS: INR 1.51; Prothrombin Time 15.6 sec (9.0-11.6)
[2024-03-10 14:06] LABS: Estimated Average Glucose 111 mg/dL; Glycohemoglobin A1C 5.5 % (4.5-6.2)
[2024-03-10 14:23] LABS: Alanine Aminotransferase 9 U/L (14-59); Albumin Globulin Ratio 0.8; Albumin Level 3.6 g/dL (3.4-5.0); Alkaline Phosphatase 65 U/L (46-116); Anion Gap 15.6; Aspartate Amino Transferase 13 U/L (15-37); BUN Creatinine Ratio 18.8; Bilirubin Total 0.7 mg/dL (0.2-1.0); Calcium 9.3 mg/dL (8.5-10.1); Carbon Dioxide 26.5 mmol/L (21.0-32.0); Chloride 102 mmol/L (98-107); Chol HDL Ratio 3.8; Cholesterol 208 mg/dL (<=200); Estimated GFR (African America 27 (>=60); Estimated GFR (Non-African Ame 22 (>=60); Free T3 2.38 pg/mL (2.18-3.98); Globulin 4.3 g/dL; Glucose 85 mg/dL (74-106); HDL Cholesterol 55 mg/dL (40-60); Potassium 4.1 mmol/L (3.5-5.1); Sodium 140 mmol/L (136-145); Thyroid Stimulating Hormone 3.483 uIU/mL (0.358-3.740); Total Protein 7.9 g/dL (6.4-8.2); Triglycerides 140 mg/dL (<=150)
== END 2024-03-10 13:25 | disposition home or self-care (01) ==
LOC: LAB 13:25
PROVIDERS: PCP Family Medicine; Visit Provider Family Medicine
DX: E78.5 Hyperlipidemia, unspecified (principal); R73.09 Other abnormal glucose; D64.9 Anemia, unspecified; E55.9 Vitamin D deficiency, unspecified; I50.30 Unspecified diastolic (congestive) heart failure; I48.91 Unspecified atrial fibrillation; I11.0 Hypertensive heart disease with heart failure
CPT/HCPCS: 36415; 80053; 80061; 82306; 83036; 83540; 83880; 84436; 84443; 84481; 85025; 85610

== ENCOUNTER 2024-04-13 15:30 | Outpatient (OUT) | payer MEDICARE, SELFPAY ==
--- OUTSIDE RECORDS SUMMARY | 2024-04-13 15:41 | XMS_ITS | CCD ---
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] Onset: 06-04-2022 Episodic Other [...] Range Facility Office Visiton 12-13-2023 Follow-up visit [id number] Inez Juarez 1940 F Date Provider Department Center 12/13/2023 JENN AMANDA BARBRA Acuña Family History Problem Relation Age of Onset Hypertension Mother Coronary artery disease Father Hypertension Father Family Status - Relation Status Age at Mother Father Level of Service:97858 ME OFFICE/OUTPATIENT ESTABLISHED MOD MDM 30 MIN Normal [facility] Office Visiton 10-30-2023 Follow-up visit [id number] Inez Juarez 1940 F Date Provider Department Center 10/30/2023 JENN AMANDA BARBRA Acuña Family History Problem Relation Age of Onset Hypertension Mother Coronary artery disease Father Hypertension Father Family Status - Relation Status Age at Mother Father Level of Service:24983 ME OFFICE/OUTPATIENT ESTABLISHED MOD MDM 30 MIN Normal [facility] HPon 10-22-2023 HP History Of Present Illness [...] a past medical history of Atrial fibrillation ([facility]), CHF (congestive heart failure) ([facility]), Chronic kidney disease, GERD (gastroesophageal [...] Results Reviewed Relevant (more content not included)... [facility] NURSNOTEon 10-22-2023 NURSNOTE RN educated pt on d/c instructions. RN encouraged pt to voice any questions or concerns. Pt verbalizes no questions or concerns at this time. [facility] Office Visiton 05-20-2023 Follow-up visit [id number] Inez Juarez 1940 F Date Provider Department Center 05/20/2023 JENN AMANDA [facility] Family History Problem Relation Age of Onset Hypertension Mother Coronary artery disease Father Hypertension Father Family Status - Relation Status Age at Mother Father Level of Service:75737 ME OFFICE/OUTPATIENT ESTABLISHED MOD MDM 30-39 MIN Reason for Visit and Comments: Shortness of Breath [755798] Fatigue [46] Follow-up [816068] [facility] BNPon 03-22-2023 Natriuretic peptide B (Bld) [Mass/Vol] 1423.0 pg/mL Normal <=1,800.0 [facility] Comment on above: Performed By: #### B EAR FLAP BINDER, CMP, TSH, LIPID #### [facility] [address] [address] [address] Reji Thomas CBC AUTO DIFFon 03-22-2023 BASO # 0.1 103/ul Normal 0.0-0.1 [facility] Comment on above: Performed By: #### B MP #### [facility] [address] [address] [address] Reji Thomas Basophils/100 WBC (Bld) 1.0 % Normal 0.2-2.0 [facility] Comment on above: Performed By: #### B MP #### [facility] [address] [address] [address] Reji Thomas EO # 0.2 103/ul Normal 0.0-0.7 [facility] Comment on above: Performed By: #### B MP #### [facility] [address] [place] [address] Dr. Reji Thomas Eosinophils/100 WBC (Bld) 3.3 % Normal 0.9-7.0 [facility] Comment on above: Performed By: #### B MP #### [facility] [address] [place] [address] Dr. Reji Thomas Erythrocyte distribution width (RBC) [Ratio] 15.4 % Critically high 11.0-15.0 [facility] Comment on above: Performed By: #### B MP #### [facility] [address] [place] [address] Dr. Reji Thomas Hematocrit (Bld) [Volume fraction] 35.2 % Critically low 36.0-48.0 [facility] Comment on above: Performed By: #### B MP #### [facility] [address] [place] [address] Dr. Reji Thomas Hemoglobin (Bld) [Mass/Vol] 11.4 g/dL Critically low 12.0-16.0 [facility] Comment on above: Performed By: #### B MP #### [facility] [address] [place] [address] Dr. Reji Thomas IG # 0.02 10e3/ul Normal 0.00-0.03 [facility] Comment on above: Performed By: #### B MP #### [facility] [address] [place] [address] Dr. Reji Thomas IG % 0.3 % Normal 0.0-0.5 [facility] Comment on above: Performed By: #### B MP #### [facility] [address] [place] [address] Dr. Reji Thomas LYMPH # 1.4 103/ul Normal 1.2-3.8 [facility] Comment on above: Performed By: #### B MP #### [facility] [address] [place] [address] Dr. Reji Thomas Lymphocytes/100 WBC (Bld) 22.6 % Normal 20.5-60.0 [facility] Comment on above: Performed By: #### B MP #### [facility] [address] [place] [address] Dr. Reji Thomas MANUAL DIFF REQ NO Normal [facility] Comment on above: Performed By: #### B MP #### [facility] [address] [place] [address] Dr. Reji Thomas MCH (RBC) [Entitic mass] 27.0 pg Normal 26.7-34.0 [facility] Comment on above: Performed By: #### B MP #### [facility] [address] [place] [address] Dr. Reji Thomas MCHC (RBC) [Mass/Vol] 32.4 g/dL Normal 29.9-35.2 [facility] Comment on above: Performed By: #### B MP #### [facility] [address] [place] [address] Dr. Reji Thomas MCV (RBC) [Entitic vol] 83.2 fL Normal 81.0-99.0 [facility] Comment on above: Performed By: #### B MP #### [facility] [address] [place] [address] Dr. Reji Thomas MONO # 0.5 103/ul Normal 0.3-0.8 [facility] Comment on above: Performed By: #### B MP #### [facility] [address] [place] [address] Dr. Reji Thomas Monocytes/100 WBC (Bld) 8.5 % Normal 1.7-12.0 [facility] Comment on above: Performed By: #### B MP #### [facility] [address] [place] [address] Dr. Reji Thomas NEUT # 4.0 103/ul Normal 1.4-6.5 [facility] Comment on above: Performed By: #### B MP #### [facility] [address] [place] [address] Dr. Reji Thomas Neutrophils/100 WBC (Bld) 64.3 % Normal 43.0-75.0 [facility] Comment on above: Performed By: #### B MP #### [facility] [address] [address] [address] Reji Thomas Platelet mean volume (Bld) [Entitic vol] 8.9 fL Critically low 9.5-13.5 [facility] Comment on above: Performed By: #### B MP #### [facility] [address] [address] [address] Reji Thomas PLT 226 103/ul Normal 150-450 [facility] Comment on above: Performed By: #### B MP #### [facility] [address] [address] [address] Reji Thomas RBC 4.23 106/ul Normal 4.20-5.40 [facility] Comment on above: Performed By: #### B MP #### [facility] [address] [address] [address] Reji Thomas WBC 6.3 103/ul Normal 4.0-11.0 [facility] Comment on above: Performed By: #### B MP #### [facility] [address] [address] [address] Reji Thomas FREE THYROXINE INDEX T7on FTI 2.40 Normal 1.30-4.50 [facility] Comment on above: Performed By: #### B EAR FLAP BINDER, CMP, TSH, LIPID #### [facility] [address] [address] [address] Reji Thomas T3U 32.0 % Normal 30.0-39.0 [facility] Comment on above: Performed By: #### B EAR FLAP BINDER, CMP, TSH, LIPID #### [facility] [address] [address] [address] Reji Thomas T4 [Mass/Vol] 7.50 ug/dL Normal 4.80-13.90 [facility] Comment on above: Performed By: #### B EAR FLAP BINDER, CMP, TSH, LIPID #### [facility] [address] [address] [address] Reji Thomas GLYCOHEMOGLOBIN A1Con 2022 ADA RECOMMENDATION SEE BELOW Normal [facility] Comment on above: Result Comment: ADA RECOMMENDED LIMIT 4.0 - 6.0 ADA THERAPEUTIC TARGET < 7.0 ACTION SUGGESTED > 7.0 Performed By: #### B EAR FLAP BINDER, CMP, TSH, LIPID #### [facility] [address] [address] [address] Reji Thomas Glucose [Mass/Vol] 97 mg/dL Normal [facility] Comment on above: Performed By: #### B EAR FLAP BINDER, CMP, TSH, LIPID #### [facility] [address] [address] [address] Reji Thomas HbA1c (Bld) [Mass fraction] 5.0 % Normal 4.5-6.2 [facility] Comment on above: Performed By: #### B EAR FLAP BINDER, CMP, TSH, LIPID #### [facility] [address] [place] [address] Dr. Reji Thomas IRONon 03-22-2023 Iron [Mass/Vol] 47.0 ug/dL Critically low 50.0-170.0 [facility] Comment on above: Performed By: #### B EAR FLAP BINDER, CMP, TSH, LIPID #### [facility] [address] [place] [address] Dr. Reji Thomas LIPID PROFILEon 03-22-2023 CHOL-HDL RATIO NORM SEE BELOW Normal [facility] Comment on above: Result Comment: 3.3 - 4.4 LOW RISK 4.4 - 7.1 AVERAGE RISK 7.1 - 11.0 MODERATE RISK >11.0 HIGH RISK Performed By: #### M G, TSH, LIPID, T7, CMP, BNP #### [facility] [address] [address] [address] Reji Thomas Cholesterol [Mass/Vol] 188 mg/dL Normal <=200 [facility] Comment on above: Performed By: #### M G, TSH, LIPID, T7, CMP, BNP #### [facility] [address] [address] [address] Reji Thomas Cholesterol in HDL [Mass/Vol] 53 mg/dL Normal 40-60 [facility] Comment on above: Performed By: #### M G, TSH, LIPID, T7, CMP, BNP #### [facility] [address] [address] [address] Reji Thomas Cholesterol in LDL [Mass/Vol] 111.6 mg/dL Normal [facility] Comment on above: Performed By: #### M G, TSH, LIPID, T7, CMP, BNP #### [facility] [address] [address] [address] Reji Thomas Cholesterol.total/Ch olesterol in HDL [Mass ratio] 3.5 {ratio} Normal [facility] Comment on above: Performed By: #### M G, TSH, LIPID, T7, CMP, BNP #### [facility] [address] [address] [address] Reji Thomas HDL NORMAL > or = 60 mg/dl - LOW CARDIOVASCULAR RISK <40 mg/dl - HIGH CARDIOVASCULAR RISK Normal [facility] Comment on above: Performed By: #### M G, TSH, LIPID, T7, CMP, BNP #### [facility] [address] [address] [address] Reji Thomas LDL CALC NORMAL SEE BELOW Normal [facility] Comment on above: Result Comment: <100 mg/dl OPTIMAL 100 - 129 mg/dl NEAR OR ABOVE OPTIMAL 130 - 159 mg/dl BORDERLINE HIGH 160 - 189 mg/dl HIGH >190 mg/dl VERY HIGH Performed By: #### M G, TSH, LIPID, T7, CMP, BNP #### [facility] [address] [address] [address] Reji Thomas Triglyceride [Mass/Vol] 117 mg/dL Normal <=150 [facility] Comment on above: Performed By: #### M G, TSH, LIPID, T7, CMP, BNP #### [facility] [address] [address] [address] Reji Thomas VLDL CALC 23.4 mg/dL Normal [facility] Comment on above: Performed By: #### M G, TSH, LIPID, T7, CMP, BNP #### [facility] [address] [address] [address] Reji Thomas MAGNESIUMon 03-22-2023 Magnesium [Mass/Vol] 2.4 mg/dL Normal 1.8-2.4 [facility] Comment on above: Performed By: #### B EAR FLAP BINDER, CMP, TSH, LIPID #### [facility] [address] [place] [address] Dr. Reji Thomas PROF 14(COMP METB)on 023 Albumin [Mass/Vol] 3.4 g/dL Normal 3.4-5.0 [facility] Comment on above: Performed By: #### M G, TSH, LIPID, T7, CMP, BNP #### [facility] [address] [place] [address] Dr. Reji Thomas Albumin/Globulin [Mass ratio] 0.8 {ratio} Normal [facility] Comment on above: Performed By: #### M G, TSH, LIPID, T7, CMP, BNP #### [facility] [address] [place] [address] Dr. Reji Thomas ALP [Catalytic activity/Vol] 61 U/L Normal 46-116 [facility] Comment on above: Performed By: #### M G, TSH, LIPID, T7, CMP, BNP #### [facility] [address] [place] [address] Dr. Reji Thomas ALT [Catalytic activity/Vol] 15 U/L Normal 14-59 [facility] Comment on above: Performed By: #### M G, TSH, LIPID, T7, CMP, BNP #### [facility] [address] [place] [address] Dr. Reji Thomas Anion gap [Moles/Vol] 13.1 mmol/L Normal [facility] Comment on above: Performed By: #### M G, TSH, LIPID, T7, CMP, BNP #### [facility] [address] [place] [address] Dr. Reji Thomas AST [Catalytic activity/Vol] 13 U/L Critically low 15-37 [facility] Comment on above: Performed By: #### M G, TSH, LIPID, T7, CMP, BNP #### [facility] [address] [place] [address] Dr. Reji Thomas Bilirubin [Mass/Vol] 0.4 mg/dL Normal 0.2-1.0 [facility] Comment on above: Performed By: #### M G, TSH, LIPID, T7, CMP, BNP #### [facility] [address] [address] [address] Reji Thomas Calcium [Mass/Vol] 8.5 mg/dL Normal 8.5-10.1 [facility] Comment on above: Performed By: #### M G, TSH, LIPID, T7, CMP, BNP #### [facility] [address] [address] [address] Reji Thomas Chloride [Moles/Vol] 106 mmol/L Normal 98-107 [facility] Comment on above: Performed By: #### M G, TSH, LIPID, T7, CMP, BNP #### [facility] [address] [place] [address] Dr. Reji Thomas CO2 [Moles/Vol] 27.6 mmol/L Normal 21.0-32.0 [facility] Comment on above: Performed By: #### M G, TSH, LIPID, T7, CMP, BNP #### [facility] [address] [address] [address] Reji Thomas Creatinine [Mass/Vol] 2.32 mg/dL Critically high 0.55-1.02 [facility] Comment on above: Performed By: #### M G, TSH, LIPID, T7, CMP, BNP #### [facility] [address] [place] [address] Dr. Reji Thomas EGFR-AF NEW ZEALANDER 24 mL/min/1.73m2 Critically low >=60 [facility] Comment on above: Performed By: #### M G, TSH, LIPID, T7, CMP, BNP #### [facility] [address] [address] [address] Reji Thomas EGFR-NON AF NEW ZEALANDER 20 mL/min/1.73m2 Critically low >=60 [facility] Comment on above: Performed By: #### M G, TSH, LIPID, T7, CMP, BNP #### [facility] [address] [address] [address] Reji Thomas Globulin (S) [Mass/Vol] 4.3 g/dL Normal [facility] Comment on above: Performed By: #### M G, TSH, LIPID, T7, CMP, BNP #### [facility] [address] [address] [address] Reji Thomsa Glucose [Mass/Vol] 88 mg/dL Normal 74-106 [facility] Comment on above: Performed By: #### M G, TSH, LIPID, T7, CMP, BNP #### [facility] [address] [place] [address] Dr. Reji Thomas Potassium [Moles/Vol] 4.7 mmol/L Normal 3.5-5.1 [facility] Comment on above: Performed By: #### M G, TSH, LIPID, T7, CMP, BNP #### [facility] [address] [place] [address] Dr. Reji Thomas Protein [Mass/Vol] 7.7 g/dL Normal 6.4-8.2 [facility] Comment on above: Performed By: #### M G, TSH, LIPID, T7, CMP, BNP #### [facility] [address] [address] [address] Reji Thomas Sodium [Moles/Vol] 142 mmol/L Normal 136-145 [facility] Comment on above: Performed By: #### M G, TSH, LIPID, T7, CMP, BNP #### [facility] [address] [place] [address] Dr. Reji Thomas Urea nitrogen [Mass/Vol] 38.0 mg/dL Critically high 7.0-18.0 [facility] Comment on above: Performed By: #### M G, TSH, LIPID, T7, CMP, BNP #### [facility] [address] [place] [address] Dr. Reji Thomas Urea nitrogen/Creatinine [Mass ratio] 16.4 mg/mg Normal [facility] Comment on above: Performed By: #### M G, TSH, LIPID, T7, CMP, BNP #### [facility] [address] [place] [address] Dr. Reji Thomas PROTIMEon 03-22-2023 INR Coag (PPP) [Relative time] 1.98 {INR} Normal [facility] Comment on above: Performed By: #### P T #### [facility] [address] [place] [address] Dr. Reji Thomas INR GUIDELINES SEE BELOW Normal [facility] Comment on above: Result Comment: SHY RED INR: 2.0 - 3.0 CONDITIONS NOT LISTED BELOW 2.5 - 3.5 FOR PROSTHETIC HEART VALVE REPLACEMENT 2.5 - 3.5 RECURRENT THROMBOSIS Performed By: #### P T #### [facility] [address] [place] [address] Dr. Reji Thomas PT Coag (PPP) [Time] 20.2 s Critically high 9.0-11.6 [facility] Comment on above: Performed By: #### P T #### [facility] [address] [place] [address] Dr. Reji Thomas TSHon 03-22-2023 TSH 2.265 uIU/mL Normal 0.358-3.740 [facility] Comment on above: Performed By: #### B EAR FLAP BINDER, CMP, TSH, LIPID #### [facility] [address] [place] [address] Dr. Reji Thomas VITAMIN D 25 OHon 03-22-2023 VIT D 25-OH 53.1 ng/mL Normal [facility] Comment on above: Performed By: #### B MP #### [facility] [address] [place] [address] Dr. Reji Thomas VIT D RANGES SEE BELOW Normal [facility] Comment on above: Result Comment: <20 ng/mL Vit D deficient 20 - <30 ng/mL Vit D insufficient 30 - 100 ng/mL Vit D sufficient >100 ng/mL Potential Toxicity Performed By: #### B MP #### [facility] [address] [place] [address] Dr. Reji Thomas PROTIMEon 02-22-2023 INR Coag (PPP) [Relative time] 2.22 {INR} Normal [facility] Comment on above: Performed By: #### B EAR FLAP BINDER, CMP, TSH, LIPID #### [facility] [address] [place] [address] Dr. Reji Thomas INR GUIDELINES SEE BELOW Normal [facility] Comment on above: Result Comment: SHY RED INR: 2.0 - 3.0 CONDITIONS NOT LISTED BELOW 2.5 - 3.5 FOR PROSTHETIC HEART VALVE REPLACEMENT 2.5 - 3.5 RECURRENT THROMBOSIS Performed By: #### B EAR FLAP BINDER, CMP, TSH, LIPID #### [facility] [address] [place] [address] Dr. Reji Thomas PT Coag (PPP) [Time] 22.5 s Critically high 9.0-11.6 [facility] Comment on above: Performed By: #### B EAR FLAP BINDER, CMP, TSH, LIPID #### [facility] [address] [place] [address] Dr. Reji Thomas PROTIMEon 01-03-2023 INR Coag (PPP) [Relative time] 2.53 {INR} Normal [facility] Comment on above: Performed By: #### B MP #### [facility] [address] [place] [address] Dr. Reji Thomas INR GUIDELINES SEE BELOW Normal [facility] Comment on above: Result Comment: SHY RED INR: 2.0 - 3.0 CONDITIONS NOT LISTED BELOW 2.5 - 3.5 FOR PROSTHETIC HEART VALVE REPLACEMENT 2.5 - 3.5 RECURRENT THROMBOSIS Performed By: #### B MP #### [facility] [address] [place] [address] Dr. Reji Thomas PT Coag (PPP) [Time] 25.4 s Critically high 9.0-11.6 [facility] Comment on above: Performed By: #### B MP #### [facility] [address] [place] [address] Dr. Reji Thomas PROTIMEon 11-23-2022 INR Coag (PPP) [Relative time] 1.71 {INR} Normal [facility] Comment on above: Performed By: #### B EAR FLAP BINDER, CMP, TSH, LIPID #### [facility] [address] [place] [address] Dr. Reji Thomas INR GUIDELINES SEE BELOW Normal [facility] Comment on above: Result Comment: SHY RED INR: 2.0 - 3.0 CONDITIONS NOT LISTED BELOW 2.5 - 3.5 FOR PROSTHETIC HEART VALVE REPLACEMENT 2.5 - 3.5 RECURRENT THROMBOSIS Performed By: #### B EAR FLAP BINDER, CMP, TSH, LIPID #### [facility] [address] [place] [address] Dr. Reji Thomas PT Coag (PPP) [Time] 17.6 s Critically high 9.0-11.6 [facility] Comment on above: Performed By: #### B EAR FLAP BINDER, CMP, TSH, LIPID #### [facility] [address] [place] [address] Dr. Reji Thomas PROTIMEon 10-10-2022 INR Coag (PPP) [Relative time] 2.52 {INR} Normal [facility] Comment on above: Performed By: #### B EAR FLAP BINDER, CMP, TSH, LIPID #### [facility] [address] [place] [address] Dr. Reji Thomas INR GUIDELINES SEE BELOW Normal [facility] Comment on above: Result Comment: SHY RED INR: 2.0 - 3.0 CONDITIONS NOT LISTED BELOW 2.5 - 3.5 FOR PROSTHETIC HEART VALVE REPLACEMENT 2.5 - 3.5 RECURRENT THROMBOSIS Performed By: #### B EAR FLAP BINDER, CMP, TSH, LIPID #### [facility] [address] [place] [address] Dr. Reji Thomas PT Coag (PPP) [Time] 25.6 s Critically high 9.0-11.6 [facility] Comment on above: Performed By: #### B EAR FLAP BINDER, CMP, TSH, LIPID #### [facility] [address] [place] [address] Dr. Reji Thomas PROTIMEon 09-05-2022 INR Coag (PPP) [Relative time] 2.03 {INR} Normal [facility] Comment on above: Performed By: #### B EAR FLAP BINDER, CMP, TSH, LIPID #### [facility] [address] [place] [address] Dr. Reji Thomas INR GUIDELINES SEE BELOW Normal [facility] Comment on above: Result Comment: SHY RED INR: 2.0 - 3.0 CONDITIONS NOT LISTED BELOW 2.5 - 3.5 FOR PROSTHETIC HEART VALVE REPLACEMENT 2.5 - 3.5 RECURRENT THROMBOSIS Performed By: #### B EAR FLAP BINDER, CMP, TSH, LIPID #### [facility] [address] [place] [address] Dr. Reji Thomas PT Coag (PPP) [Time] 20.9 s Critically high 9.0-11.6 [facility] Comment on above: Performed By: #### B EAR FLAP BINDER, CMP, TSH, LIPID #### [facility] [address] [place] [address] Dr. Reji Thomas BNPon 08-10-2022 Natriuretic peptide B (Bld) [Mass/Vol] 1162.0 pg/mL Normal <=1,800.0 [facility] Comment on above: Performed By: #### B MP, BNP #### [facility] [address] [place] [address] Dr. Reji Thomas PROF CHEM 8 (BAS METB)on Anion gap [Moles/Vol] 11.3 mmol/L Normal [facility] Comment on above: Performed By: #### B MP, BNP #### [facility] [address] [place] [address] Dr. Reji Thomas Calcium [Mass/Vol] 8.9 mg/dL Normal 8.5-10.1 [facility] Comment on above: Performed By: #### B MP, BNP #### [facility] [address] [place] [address] Dr. Reji Thomas Chloride [Moles/Vol] 103 mmol/L Normal 98-107 [facility] Comment on above: Performed By: #### B MP, BNP #### [facility] [address] [place] [address] Dr. Reji Thomas CO2 [Moles/Vol] 28.2 mmol/L Normal 21.0-32.0 [facility] Comment on above: Performed By: #### B MP, BNP #### [facility] [address] [place] [address] Dr. Reji Thomas Creatinine [Mass/Vol] 2.07 mg/dL Critically high 0.55-1.02 [facility] Comment on above: Performed By: #### B MP, BNP #### [facility] [address] [address] [address] Reji Thomas EGFR-AF NEW ZEALANDER 28 mL/min/1.73m2 Critically low >=60 [facility] Comment on above: Performed By: #### B MP, BNP #### [facility] [address] [address] [address] Reji Thomas EGFR-NON AF NEW ZEALANDER 23 mL/min/1.73m2 Critically low >=60 [facility] Comment on above: Performed By: #### B MP, BNP #### [facility] [address] [address] [address] Reji Thomas Glucose [Mass/Vol] 88 mg/dL Normal 74-106 [facility] Comment on above: Performed By: #### B MP, BNP #### [facility] [address] [address] [address] Reji Thomas Potassium [Moles/Vol] 4.5 mmol/L Normal 3.5-5.1 [facility] Comment on above: Performed By: #### B MP, BNP #### [facility] [address] [address] [address] Reji Thomas Sodium [Moles/Vol] 138 mmol/L Normal 136-145 [facility] Comment on above: Performed By: #### B MP, BNP #### [facility] [address] [address] [address] Reji Thomas Urea nitrogen [Mass/Vol] 35.0 mg/dL Critically high 7.0-18.0 [facility] Comment on above: Performed By: #### B MP, BNP #### [facility] [address] [address] [address] Reji Thomas Urea nitrogen/Creatinine [Mass ratio] 16.9 mg/mg Normal [facility] Comment on above: Performed By: #### B MP, BNP #### [facility] [address] [address] [address] Reij Thomas PROTIMEon 08-09-2022 INR Coag (PPP) [Relative time] 2.04 {INR} Normal [facility] Comment on above: Performed By: #### B EAR FLAP BINDER, CMP, TSH, LIPID #### [facility] [address] [place] [address] Dr. Reji Thomas INR GUIDELINES SEE BELOW Normal [facility] Comment on above: Result Comment: SHY RED INR: 2.0 - 3.0 CONDITIONS NOT LISTED BELOW 2.5 - 3.5 FOR PROSTHETIC HEART VALVE REPLACEMENT 2.5 - 3.5 RECURRENT THROMBOSIS Performed By: #### B EAR FLAP BINDER, CMP, TSH, LIPID #### [facility] [address] [place] [address] Dr. Reji Thomas PT Coag (PPP) [Time] 21.0 s Critically high 9.0-11.6 [facility] Comment on above: Performed By: #### B EAR FLAP BINDER, CMP, TSH, LIPID #### [facility] [address] [place] [address] Dr. Reji Thomas BNPon 07-09-2022 Natriuretic peptide B (Bld) [Mass/Vol] 2085.0 pg/mL Critically high <=1,800.0 [facility] Comment on above: Result Comment: CRIT ICAL CALLED TO OFFICE ON 07-10-22 AT 0850 BY AR Performed By: #### B EAR FLAP BINDER, CMP, TSH, LIPID #### [facility] [address] [place] [address] Dr. Reji Thomas PROF CHEM 8 (BAS METB)on Anion gap [Moles/Vol] 13.7 mmol/L Normal [facility] Comment on above: Performed By: #### B EAR FLAP BINDER, CMP, TSH, LIPID #### [facility] [address] [place] [address] Dr. Reji Thomas Calcium [Mass/Vol] 8.3 mg/dL Critically low 8.5-10.1 [facility] Comment on above: Performed By: #### B EAR FLAP BINDER, CMP, TSH, LIPID #### [facility] [address] [place] [address] Dr. Reji Thomas Chloride [Moles/Vol] 104 mmol/L Normal 98-107 [facility] Comment on above: Performed By: #### B EAR FLAP BINDER, CMP, TSH, LIPID #### [facility] [address] [place] [address] Dr. Reji Thomas CO2 [Moles/Vol] 26.6 mmol/L Normal 21.0-32.0 [facility] Comment on above: Performed By: #### B EAR FLAP BINDER, CMP, TSH, LIPID #### [facility] [address] [address] [address] Reji Thomas Creatinine [Mass/Vol] 1.98 mg/dL Critically high 0.55-1.02 [facility] Comment on above: Performed By: #### B EAR FLAP BINDER, CMP, TSH, LIPID #### [facility] [address] [place] [address] Dr. Reji Thomas EGFR-AF NEW ZEALANDER 29 mL/min/1.73m2 Critically low >=60 [facility] Comment on above: Performed By: #### B EAR FLAP BINDER, CMP, TSH, LIPID #### [facility] [address] [place] [address] Dr. Reji Thomas EGFR-NON AF NEW ZEALANDER 24 mL/min/1.73m2 Critically low >=60 [facility] Comment on above: Performed By: #### B EAR FLAP BINDER, CMP, TSH, LIPID #### [facility] [address] [place] [address] Dr. Reji Thomas Glucose [Mass/Vol] 116 mg/dL Critically high 74-106 [facility] Comment on above: Performed By: #### B EAR FLAP BINDER, CMP, TSH, LIPID #### [facility] [address] [place] [address] Dr. Reji Thomas Potassium [Moles/Vol] 4.3 mmol/L Normal 3.5-5.1 [facility] Comment on above: Performed By: #### B EAR FLAP BINDER, CMP, TSH, LIPID #### [facility] [address] [place] [address] Dr. Reji Thomas Sodium [Moles/Vol] 140 mmol/L Normal 136-145 [facility] Comment on above: Performed By: #### B EAR FLAP BINDER, CMP, TSH, LIPID #### [facility] [address] [place] [address] Dr. Reji Thomas Urea nitrogen [Mass/Vol] 35.0 mg/dL Critically high 7.0-18.0 [facility] Comment on above: Performed By: #### B EAR FLAP BINDER, CMP, TSH, LIPID #### [facility] [address] [address] [address] Reji Thomas Urea nitrogen/Creatinine [Mass ratio] 17.7 mg/mg Normal [facility] Comment on above: Performed By: #### B EAR FLAP BINDER, CMP, TSH, LIPID #### [facility] [address] [address] [address] Reji Thomas PROTIMEon 07-09-2022 INR Coag (PPP) [Relative time] 2.99 {INR} Normal [facility] Comment on above: Performed By: #### B EAR FLAP BINDER, CMP, TSH, LIPID #### [facility] [address] [place] [address] Dr. Reji Thomas INR GUIDELINES SEE BELOW Normal [facility] Comment on above: Result Comment: SHY RED INR: 2.0 - 3.0 CONDITIONS NOT LISTED BELOW 2.5 - 3.5 FOR PROSTHETIC HEART VALVE REPLACEMENT 2.5 - 3.5 RECURRENT THROMBOSIS Performed By: #### B EAR FLAP BINDER, CMP, TSH, LIPID #### [facility] [address] [address] [address] Reji Thomas PT Coag (PPP) [Time] 30.1 s Critically high 9.0-11.6 [facility] Comment on above: Performed By: #### B EAR FLAP BINDER, CMP, TSH, LIPID #### [facility] [address] [place] [address] Dr. Reji Thomas US KIDNEYSon 07-06-2022 US [...] by: SIGRID RICHMOND Date: 2022-07-06 13:31 Normal [facility] EVAN Antinuclear Antibodieson 06-19-2022 Antinuclear Abs, IFA Positive Critically abnormal . [facility] Comment on above: Result Comment: Nega tive <1:80 Borderline 1:80 Positive >1:80 Performed By: #### C GERALDO ADDONUAPLUS #### [facility] [address] [place] [address] #### C3, C4, CH50 #### [facility] , Homogeneous Pattern 1:320 High . [facility] Comment on above: Result Comment: ICAP nomenclature: [id number] Performed By: #### C UJoel ADDONUAPLUS #### [facility] [address] [place] [address] #### C3, C4, CH50 #### [facility] , Note 1 Normal . [facility] [...] titers Nucleosomes, Histones Drug-induced SLE Speckled Sm, TERRY CLOTH CUTTER HAND, SCL-70, SLE,MCTD,PSS (diffuse form), SS-A/SS-B Sjogrens Nucleolar SCL-70, PM-1/SCL High titers Scleroderma, PM/DM Centromere Centromere PSS (limited form) w/Crest syndrome variable Nuclear Dot [id number] Primary Biliary Cirrhosis Nuclear GP210, Primary Biliary Cirrhosis Membrane eleonora A,B,C Performed at: [address] [id number] Pipeline Integrity Engineer: Demarcus Lawton PhD, Phone: [phone] Performed By: #### C UU, ADDONUAPLUS #### [address] #### C3, C4, CH50 #### [facility] , Anti-RNPon 06-19-2022 Anti-TERRY CLOTH CUTTER HAND 0.4 Normal 0.0-0.9 [facility] Comment on above: Result Comment: Perf ormed at: [address] [id number] Pipeline Integrity Engineer: Demarcus Lawton PhD, Phone: [phone] Performed By: #### C UU, ADDONUAPLUS #### [address] #### C3, C4, CH50 #### [facility] , C-Reactive Proteinon 022 C-Reactive Protein 2.0 mg/dL High 0.0-1.0 [facility] Comment on above: Result Comment: PERF ORMED BY: [place] [address] PATHOLOGIST MANUFACTURING TECHNOLOGY ANALYST RADHA BULLARD M.D. Performed By: #### C UU, ADDONUAPLUS #### [address] #### C3, C4, CH50 #### [facility] , Complement C3on 06-19-2022 Complement C3 167 mg/dL Normal 82-167 [facility] Comment on above: Result Comment: Perf ormed at: [address] [address] Pipeline Integrity Engineer: Demarcus Lawton PhD, Phone: [phone] Performed By: #### C UU, ADDONUAPLUS #### [address] #### C3, C4, CH50 #### [facility] , Complement C4on 06-19-2022 Complement C4 37 mg/dL Normal 12-38 [facility] Comment on above: Performed By: #### C UU, ADDONUAPLUS #### [address] #### C3, C4, CH50 #### [facility] , Complement Total (CH50)on Complement Total (CH50) >60 Normal >41 [facility] [...] out of range values. Performed at: - [facility] [address] [id number] Pipeline Integrity Engineer: Demarcus Lawton PhD, Phone: [phone] PERFORMED BY: [place] [address] PATHOLOGIST MANUFACTURING TECHNOLOGY ANALYST RADHA BULLARD M.D. Performed By: #### C UU, ADDONUAPLUS #### [address] #### C3, C4, CH50 #### [facility] , Complete Blood Count Auto Di ffon 06-19-2022 Basophils (Bld) [#/Vol] 0.1 10*3/uL Normal 0.0-0.2 [facility] Comment on above: Performed By: #### H EPATIC, CBC, ESR, CRP, CREAT, CK #### [address] #### RNA POLYMR, ANTI TH TO, EVAN, U3 TERRY CLOTH CUTTER HAND, ANTIR, PM-SCL ABS #### [facility] , Basophils/100 WBC (Bld) 0.9 % Normal . [facility] Comment on above: Performed By: #### H EPATIC, CBC, ESR, CRP, CREAT, CK #### [address] #### RNA POLYMR, ANTI TH TO, EVAN, U3 TERRY CLOTH CUTTER HAND, ANTIR, PM-SCL ABS #### [facility] , Eosinophils (Bld) [#/Vol] 0.5 10*3/uL High 0.0-0.45 [facility] Comment on above: Performed By: #### H EPATIC, CBC, ESR, CRP, CREAT, CK #### [address] #### RNA POLYMR, ANTI TH TO, EVAN, U3 TERRY CLOTH CUTTER HAND, ANTIR, PM-SCL ABS #### [facility] , Eosinophils/100 WBC (Bld) 8.6 % Normal . [facility] Comment on above: Performed By: #### H EPATIC, CBC, ESR, CRP, CREAT, CK #### [facility] [address] [place] [address] [place] #### RNA POLYMR, ANTI TH TO, EVAN, U3 TERRY CLOTH CUTTER HAND, ANTIR, PM-SCL ABS #### [facility] , Erythrocyte distribution width (RBC) [Ratio] 19.6 % High 11.9-15.3 [facility] Comment on above: Performed By: #### H EPATIC, CBC, ESR, CRP, CREAT, CK #### [place] [address] [place] #### RNA POLYMR, ANTI TH TO, EVAN, U3 TERRY CLOTH CUTTER HAND, ANTIR, PM-SCL ABS #### [facility] , Hematocrit (Bld) [Volume fraction] 33.8 % Low 34.0-46.4 [facility] Comment on above: Performed By: #### H EPATIC, CBC, ESR, CRP, CREAT, CK #### [place] [address] [place] #### RNA POLYMR, ANTI TH TO, EVAN, U3 TERRY CLOTH CUTTER HAND, ANTIR, PM-SCL ABS #### [facility] , Hemoglobin (Bld) [Mass/Vol] 10.9 g/dL Low 11.8-15.4 [facility] Comment on above: Performed By: #### H EPATIC, CBC, ESR, CRP, CREAT, CK #### [place] [address] [place] #### RNA POLYMR, ANTI TH TO, EVAN, U3 TERRY CLOTH CUTTER HAND, ANTIR, PM-SCL ABS #### [facility] , Lymphocytes (Bld) [#/Vol] 1.1 10*3/uL Normal 1.00-4.8 [facility] Comment on above: Performed By: #### H EPATIC, CBC, ESR, CRP, CREAT, CK #### [place] [address] [place] #### RNA POLYMR, ANTI TH TO, EVAN, U3 TERRY CLOTH CUTTER HAND, ANTIR, PM-SCL ABS #### [facility] , Lymphocytes/100 WBC (Bld) 17.8 % Normal . [facility] Comment on above: Performed By: #### H EPATIC, CBC, ESR, CRP, CREAT, CK #### [place] [address] [place] #### RNA POLYMR, ANTI TH TO, EVAN, U3 TERRY CLOTH CUTTER HAND, ANTIR, PM-SCL ABS #### [facility] , MCH (RBC) [Entitic mass] 26.4 pg Normal 24.7-34.3 [facility] Comment on above: Performed By: #### H EPATIC, CBC, ESR, CRP, CREAT, CK #### [place] [address] [place] #### RNA POLYMR, ANTI TH TO, EVAN, U3 TERRY CLOTH CUTTER HAND, ANTIR, PM-SCL ABS #### [facility] , MCV (RBC) [Entitic vol] 81.8 fL Normal 80-100 [facility] Comment on above: Performed By: #### H EPATIC, CBC, ESR, CRP, CREAT, CK #### [address] #### RNA POLYMR, ANTI TH TO, EVAN, U3 TERRY CLOTH CUTTER HAND, ANTIR, PM-SCL ABS #### [facility] , Mean Corpuscular HGB Conc 32.3 g/dL Normal 32.0-35.0 [facility] Comment on above: Performed By: #### H EPATIC, CBC, ESR, CRP, CREAT, CK #### [address] #### RNA POLYMR, ANTI TH TO, EVAN, U3 TERRY CLOTH CUTTER HAND, ANTIR, PM-SCL ABS #### [facility] , Monocytes (Bld) [#/Vol] 0.4 10*3/uL Normal 0.0-0.8 [facility] Comment on above: Performed By: #### H EPATIC, CBC, ESR, CRP, CREAT, CK #### [address] #### RNA POLYMR, ANTI TH TO, EVAN, U3 TERRY CLOTH CUTTER HAND, ANTIR, PM-SCL ABS #### [facility] , Monocytes/100 WBC (Bld) 7.4 % Normal . [facility] Comment on above: Performed By: #### H EPATIC, CBC, ESR, CRP, CREAT, CK #### [place] [address] [place] #### RNA POLYMR, ANTI TH TO, EVAN, U3 TERRY CLOTH CUTTER HAND, ANTIR, PM-SCL ABS #### [facility] , Neutrophils (Bld) [#/Vol] 3.9 10*3/uL Normal 1.8-7.7 [facility] Comment on above: Performed By: #### H EPATIC, CBC, ESR, CRP, CREAT, CK #### [place] [address] [place] #### RNA POLYMR, ANTI TH TO, EVAN, U3 TERRY CLOTH CUTTER HAND, ANTIR, PM-SCL ABS #### [facility] , Neutrophils/100 WBC (Bld) 65.3 % Normal . [facility] Comment on above: Performed By: #### H EPATIC, CBC, ESR, CRP, CREAT, CK #### [place] [address] [place] #### RNA POLYMR, ANTI TH TO, EVAN, U3 TERRY CLOTH CUTTER HAND, ANTIR, PM-SCL ABS #### [facility] , Nucleated RBC/100 WBC (Bld) [Ratio] 0.0 % Normal 0-0.5 [facility] Comment on above: Performed By: #### H EPATIC, CBC, ESR, CRP, CREAT, CK #### [place] [address] [place] #### RNA POLYMR, ANTI TH TO, EVAN, U3 TERRY CLOTH CUTTER HAND, ANTIR, PM-SCL ABS #### [facility] , Platelet mean volume (Bld) [Entitic vol] 7.2 fL Normal 6.3-10.7 [facility] Comment on above: Performed By: #### H EPATIC, CBC, ESR, CRP, CREAT, CK #### [place] [address] [place] #### RNA POLYMR, ANTI TH TO, EVAN, U3 TERRY CLOTH CUTTER HAND, ANTIR, PM-SCL ABS #### [facility] , Platelets (Bld) [#/Vol] 237 10*3/uL Normal 150-450 [facility] Comment on above: Performed By: #### H EPATIC, CBC, ESR, CRP, CREAT, CK #### [place] [address] [place] #### RNA POLYMR, ANTI TH TO, EVAN, U3 TERRY CLOTH CUTTER HAND, ANTIR, PM-SCL ABS #### [facility] , RBC (Bld) [#/Vol] 4.14 10*6/uL Normal 3.60-5.00 [facility] Comment on above: Performed By: #### H EPATIC, CBC, ESR, CRP, CREAT, CK #### [address] #### RNA POLYMR, ANTI TH TO, EVAN, U3 TERRY CLOTH CUTTER HAND, ANTIR, PM-SCL ABS #### [facility] , WBC (Bld) [#/Vol] 6.0 10*3/uL Normal 4.5-11.0 [facility] Comment on above: Performed By: #### H EPATIC, CBC, ESR, CRP, CREAT, CK #### [address] #### RNA POLYMR, ANTI TH TO, EVAN, U3 TERRY CLOTH CUTTER HAND, ANTIR, PM-SCL ABS #### [facility] , Creatine Kinaseon 06-19-2022 CK [Catalytic activity/Vol] 38 U/L Normal 22-269 [facility] Comment on above: Result Comment: PERF ORMED BY: [place] [address] PATHOLOGIST MANUFACTURING TECHNOLOGY ANALYST RADHA BULLARD M.D. Performed By: #### H EPATIC, CBC, ESR, CRP, CREAT, CK #### [address] #### RNA POLYMR, ANTI TH TO, EVAN, U3 TERRY CLOTH CUTTER HAND, ANTIR, PM-SCL ABS #### [facility] , Creatinineon 06-19-2022 Creatinine [Mass/Vol] 2.82 mg/dL High 0.44-1.03 [facility] Comment on above: Performed By: #### H EPATIC, CBC, ESR, CRP, CREAT, CK #### [place] [address] [place] #### RNA POLYMR, ANTI TH TO, EVAN, U3 TERRY CLOTH CUTTER HAND, ANTIR, PM-SCL ABS #### [facility] , Estimated GFR ( [place] 19 Normal [facility] Comment on above: Result Comment: GFR estimated reference range: According to KDOQI guidelines, <60 ml/min/1.73m2 is sufficient to diagnose a patient with chronic kidney disease. Performed By: #### H EPATIC, CBC, ESR, CRP, CREAT, CK #### [facility] [address] [place] [address] [place] #### RNA POLYMR, ANTI TH TO, EVAN, U3 TERRY CLOTH CUTTER HAND, ANTIR, PM-SCL ABS #### [facility] , Estimated GFR (Non- Am 16 Normal [facility] Comment on above: Performed By: #### H EPATIC, CBC, ESR, CRP, CREAT, CK #### [facility] [address] [place] [address] #### RNA POLYMR, ANTI TH TO, EVAN, U3 TERRY CLOTH CUTTER HAND, ANTIR, PM-SCL ABS #### [facility] , Dipstick and Microscopicon 0 06-19-2022 Appearance (U) Cloudy Critically abnormal Clear [facility] Comment on above: Order Comment: Name Collection Type:: Clean-Voided Midstream Performed By: #### C UU, ADDONUAPLUS #### [address] #### C3, C4, CH50 #### [facility] , Bacteria,Urine 1+ High None Seen [facility] Comment on above: Order Comment: Name Collection Type:: Clean-Voided Midstream Performed By: #### C UU, ADDONUAPLUS #### [facility] [address] [place] [address] [place] #### C3, C4, CH50 #### [facility] , Bilirubin,Urine Negative Normal Negative [facility] Comment on above: Order Comment: Name Collection Type:: Clean-Voided Midstream Performed By: #### C UU, ADDONUAPLUS #### [place] [address] [place] #### C3, C4, CH50 #### [facility] , Color (U) Yellow Normal Yellow [facility] Comment on above: Order Comment: Name Collection Type:: Clean-Voided Midstream Performed By: #### C UU, ADDONUAPLUS #### [facility] [address] [place] [address] #### C3, C4, CH50 #### [facility] , Glucose Ql (U) Normal Normal Normal [facility] Comment on above: Order Comment: Name Collection Type:: Clean-Voided Midstream Performed By: #### C UU, ADDONUAPLUS #### [address] #### C3, C4, CH50 #### [facility] , Hyaline Casts,Urine 1-2 Normal 0-8 [facility] Comment on above: Order Comment: Name Collection Type:: Clean-Voided Midstream Result Comment: PERF ORMED BY: [place] [address] PATHOLOGIST MANUFACTURING TECHNOLOGY ANALYST RADHA BULLARD M.D. Performed By: #### C UU, ADDONUAPLUS #### [address] #### C3, C4, CH50 #### [facility] , Ketones Ql (U) Negative Normal Negative [facility] Comment on above: Order Comment: Name Collection Type:: Clean-Voided Midstream Performed By: #### C UU, ADDONUAPLUS #### [facility] [address] [place] [address] #### C3, C4, CH50 #### [facility] , Leukocyte esterase Test strip Ql (U) 4+ High Negative [facility] Comment on above: Order Comment: Name Collection Type:: Clean-Voided Midstream Performed By: #### C UU, ADDONUAPLUS #### [facility] [address] [place] [address] #### C3, C4, CH50 #### [facility] , Nitrite,Urine Negative Normal Negative [facility] Comment on above: Order Comment: Name Collection Type:: Clean-Voided Midstream Performed By: #### C UU, ADDONUAPLUS #### [address] #### C3, C4, CH50 #### [facility] , Occult Blood,Urine 1+ High Negative [facility] Comment on above: Order Comment: Name Collection Type:: Clean-Voided Midstream Performed By: #### C UU, ADDONUAPLUS #### [address] #### C3, C4, CH50 #### [facility] , pH (U) 6.5 [pH] Normal 5.0-9.0 [facility] Comment on above: Order Comment: Name Collection Type:: Clean-Voided Midstream Performed By: #### C UU, ADDONUAPLUS #### [address] #### C3, C4, CH50 #### [facility] , Protein,Urine Trace High Negative [facility] Comment on above: Order Comment: Name Collection Type:: Clean-Voided Midstream Performed By: #### C UU, ADDONUAPLUS #### [address] #### C3, C4, CH50 #### [facility] , RBC,Urine 1-2 Normal 0-4 [facility] Comment on above: Order Comment: Name Collection Type:: Clean-Voided Midstream Performed By: #### C UU, ADDONUAPLUS #### [address] #### C3, C4, CH50 #### [facility] , Specificy [place],Urine 1.010 Normal 1.001-1.030 [facility] Comment on above: Order Comment: Name Collection Type:: Clean-Voided Midstream Performed By: #### C UU, ADDONUAPLUS #### [address] #### C3, C4, CH50 #### [facility] , Squamous Epithelial Cell,Urine 5-9 High 0-2 [facility] Comment on above: Order Comment: Name Collection Type:: Clean-Voided Midstream Performed By: #### C UU, ADDONUAPLUS #### [address] #### C3, C4, CH50 #### [facility] , Urobilinogen,Urine Normal Normal Normal [facility] Comment on above: Order Comment: Name Collection Type:: Clean-Voided Midstream Performed By: #### C UU, ADDONUAPLUS #### [address] #### C3, C4, CH50 #### [facility] , WBC,Urine Innumerable High 0-4 [facility] Comment on above: Order Comment: Name Collection Type:: Clean-Voided Midstream Performed By: #### C UU, ADDONUAPLUS #### [address] #### C3, C4, CH50 #### [facility] , Erythrocyte Sedimentation Ra pratik 06-19-2022 ESR (Bld) [Velocity] 57 mm/h High 0-29 [facility] Comment on above: Result Comment: PERF ORMED BY: [place] [address] PATHOLOGIST MANUFACTURING TECHNOLOGY ANALYST RADHA BULLARD M.D. Performed By: #### H EPATIC, CBC, ESR, CRP, CREAT, CK #### [facility] [address] [place] [address] [place] #### RNA POLYMR, ANTI TH TO, EAVN, U3 TERRY CLOTH CUTTER HAND, ANTIR, PM-SCL ABS #### [facility] , Hepatic Panelon 06-19-2022 Albumin [Mass/Vol] 3.6 g/dL Normal 3.2-5.5 [facility] Comment on above: Performed By: #### H EPATIC, CBC, ESR, CRP, CREAT, CK #### [facility] [address] [place] [address] [place] #### RNA POLYMR, ANTI TH TO, EVAN, U3 TERRY CLOTH CUTTER HAND, ANTIR, PM-SCL ABS #### [facility] , Albumin/Globulin [Mass ratio] 1.0 {ratio} Normal [facility] Comment on above: Performed By: #### H EPATIC, CBC, ESR, CRP, CREAT, CK #### [facility] [address] [place] [address] [place] #### RNA POLYMR, ANTI TH TO, EVAN, U3 TERRY CLOTH CUTTER HAND, ANTIR, PM-SCL ABS #### [facility] , ALP [Catalytic activity/Vol] 68 U/L Normal 32-92 [facility] Comment on above: Performed By: #### H EPATIC, CBC, ESR, CRP, CREAT, CK #### [facility] [address] [place] [address] [place] #### RNA POLYMR, ANTI TH TO, EVAN, U3 TERRY CLOTH CUTTER HAND, ANTIR, PM-SCL ABS #### [facility] , ALT [Catalytic activity/Vol] 9 U/L Low 10-60 [facility] Comment on above: Performed By: #### H EPATIC, CBC, ESR, CRP, CREAT, CK #### [facility] [address] [place] [address] [place] #### RNA POLYMR, ANTI TH TO, EVAN, U3 TERRY CLOTH CUTTER HAND, ANTIR, PM-SCL ABS #### [facility] , AST [Catalytic activity/Vol] 15 U/L Normal 10-42 [facility] Comment on above: Performed By: #### H EPATIC, CBC, ESR, CRP, CREAT, CK #### [place] [address] [place] #### RNA POLYMR, ANTI TH TO, EVAN, U3 TERRY CLOTH CUTTER HAND, ANTIR, PM-SCL ABS #### [facility] , Bilirubin [Mass/Vol] 0.6 mg/dL Normal 0.3-1.2 [facility] Comment on above: Performed By: #### H EPATIC, CBC, ESR, CRP, CREAT, CK #### [address] #### RNA POLYMR, ANTI TH TO, EVAN, U3 TERRY CLOTH CUTTER HAND, ANTIR, PM-SCL ABS #### [facility] , Bilirubin,Indirect 0.4 mg/dL Normal [facility] Comment on above: Performed By: #### H EPATIC, CBC, ESR, CRP, CREAT, CK #### [place] [address] [place] #### RNA POLYMR, ANTI TH TO, EVAN, U3 TERRY CLOTH CUTTER HAND, ANTIR, PM-SCL ABS #### [facility] , Bilirubin.indirect [Mass/Vol] 0.2 mg/dL Normal 0.0-0.4 [facility] Comment on above: Performed By: #### H EPATIC, CBC, ESR, CRP, CREAT, CK #### [place] [address] [place] #### RNA POLYMR, ANTI TH TO, EVAN, U3 TERRY CLOTH CUTTER HAND, ANTIR, PM-SCL ABS #### [facility] , Globulin (S) [Mass/Vol] 3.5 g/dL Normal [facility] Comment on above: Performed By: #### H EPATIC, CBC, ESR, CRP, CREAT, CK #### [place] [address] [place] #### RNA POLYMR, ANTI TH TO, EVAN, U3 TERRY CLOTH CUTTER HAND, ANTIR, PM-SCL ABS #### [facility] , Protein [Mass/Vol] 7.1 g/dL Normal 6.1-7.9 [facility] Comment on above: Performed By: #### H EPATIC, CBC, ESR, CRP, CREAT, CK #### [facility] [address] [place] [address] #### RNA POLYMR, ANTI TH TO, EVAN, U3 TERRY CLOTH CUTTER HAND, ANTIR, PM-SCL ABS #### [facility] , PM-SCL Antibodieson 06-19-20 22 RAIZA PM-Scl Antibody <20 Normal <20 [facility] Comment on above: Result Comment: This test was developed and its performance characteristics determined by [facility]. It has not been cleared or approved by the Food and Drug Administration. Negative: <20 Weak Positive: 20 - 39 Moderate Positive: 40 - 80 Strong Positive: >80 Performed at: [facility] [address] [place] [address] [id number] Pipeline Integrity Engineer: Artemio Nair MD, Phone: [phone] Performed By: #### C UU, ADDONUAPLUS #### [address] #### C3, C4, CH50 #### [facility] , RNA Polymerase IIion 022 RNA Polymerase IIi <20 Normal <20 [facility] Comment on above: Result Comment: Nega tive: <20 Weak Positive: 20 - 39 Moderate Positive: 40 - 80 Strong Positive: >80 Performed at: [facility] [address] [place] [address] [id number] Pipeline Integrity Engineer: Artemio Nair MD, Phone: [phone] PERFORMED BY: [place] [id number] PATHOLOGIST MANUFACTURING TECHNOLOGY ANALYST RADHA BULLARD M.D. Performed By: #### C UU, ADDONUAPLUS #### [place] [address] [place] #### C3, C4, CH50 #### [facility] , Th/To Antibodyon 06-19-2022 Th/To Antibody Negative Normal Negative [facility] Comment on above: Result Comment: This test was developed and its performance characteristics determined by [facility]. It has not been cleared or approved by the Food and Drug Administration. Performed at: [facility] [address] [place] [address] [id number] Pipeline Integrity Engineer: Artemio Nair MD, Phone: [phone] Performed By: #### C UU, ADDONUAPLUS #### [address] #### C3, C4, CH50 #### [facility] , U3 Rnpon 06-19-2022 U3 Wind Turbine Mechanic Negative Normal Negative [facility] Comment on above: Result Comment: This test was developed and its performance characteristics determined by [facility]. It has not been cleared or approved by the Food and Drug Administration. Performed at: [facility] [address] [place] [address] [id number] Pipeline Integrity Engineer: Artemio Nair MD, Phone: [phone] PERFORMED BY: [place] [address] PATHOLOGIST MANUFACTURING TECHNOLOGY ANALYST RADHA BULLARD M.D. Performed By: #### C UU, ADDONUAPLUS #### [address] #### C3, C4, CH50 #### [facility] , Urine Cultureon 06-19-2022 Bacteria identified Cx Nom (U) No Growth 2 Days PERFORMED [place] [address] PATHOLOGIST MANUFACTURING TECHNOLOGY ANALYST RADHA BULLARD M.D. [facility] Comment on above: Performed By: #### C UU, ADDONUAPLUS #### [place] [address] [place] #### C3, C4, CH50 #### [facility] , PROF CHEM 8 (BAS METB)on Anion gap [Moles/Vol] 12.5 mmol/L Normal [facility] Comment on above: Performed By: #### B MP #### [facility] [address] [address] [address] Reji Thomas Calcium [Mass/Vol] 8.9 mg/dL Normal 8.5-10.1 [facility] Comment on above: Performed By: #### B MP #### [facility] [address] [address] [address] Reji Thomas Chloride [Moles/Vol] 103 mmol/L Normal 98-107 [facility] Comment on above: Performed By: #### B MP #### [facility] [address] [address] [address] Reji Thomas CO2 [Moles/Vol] 26.1 mmol/L Normal 21.0-32.0 [facility] Comment on above: Performed By: #### B MP #### [facility] [address] [address] [address] Reji Thomas Creatinine [Mass/Vol] 2.09 mg/dL Critically high 0.55-1.02 [facility] Comment on above: Performed By: #### B MP #### [facility] [address] [address] [address] Reji Thomas EGFR-AF NEW ZEALANDER 27 mL/min/1.73m2 Critically low >=60 [facility] Comment on above: Performed By: #### B MP #### [facility] [address] [address] [address] Reji Thomas EGFR-NON AF NEW ZEALANDER 23 mL/min/1.73m2 Critically low >=60 [facility] Comment on above: Performed By: #### B MP #### [facility] [address] [address] [address] Reji Thomas Glucose [Mass/Vol] 96 mg/dL Normal 74-106 [facility] Comment on above: Performed By: #### B MP #### [facility] [address] [address] [address] Reji Thomas Potassium [Moles/Vol] 4.6 mmol/L Normal 3.5-5.1 [facility] Comment on above: Performed By: #### B MP #### [facility] [address] [place] [address] Dr. Reji Thomas Sodium [Moles/Vol] 137 mmol/L Normal 136-145 [facility] Comment on above: Performed By: #### B MP #### [facility] [address] [place] [address] Dr. Reji Thomas Urea nitrogen [Mass/Vol] 38.0 mg/dL Critically high 7.0-18.0 [facility] Comment on above: Performed By: #### B MP #### [facility] [address] [place] [address] Dr. Reji Thomas Urea nitrogen/Creatinine [Mass ratio] 18.2 mg/mg Normal [facility] Comment on above: Performed By: #### B MP #### [facility] [address] [place] [address] Dr. Reji Thomas PROTIMEon 06-04-2022 INR Coag (PPP) [Relative time] 2.51 {INR} Normal [facility] Comment on above: Performed By: #### B EAR FLAP BINDER, CMP, TSH, LIPID #### [facility] [address] [place] [address] Dr. Reji Thomas INR GUIDELINES SEE BELOW Normal [facility] Comment on above: Result Comment: SHY RED INR: 2.0 - 3.0 CONDITIONS NOT LISTED BELOW 2.5 - 3.5 FOR PROSTHETIC HEART VALVE REPLACEMENT 2.5 - 3.5 RECURRENT THROMBOSIS Performed By: #### B EAR FLAP BINDER, CMP, TSH, LIPID #### [facility] [address] [place] [address] Dr. Reji Thomas PT Coag (PPP) [Time] 25.5 s Critically high 9.0-11.6 [facility] Comment on above: Performed By: #### B EAR FLAP BINDER, CMP, TSH, LIPID #### [facility] [address] [place] [address] Dr. Reji Thomas BNPon 05-15-2022 Natriuretic peptide B (Bld) [Mass/Vol] 3661.0 pg/mL Critically high <=1,800.0 [facility] Comment on above: Performed By: #### B EAR FLAP BINDER, CMP, TSH, LIPID #### [facility] [address] [place] [address] Dr. Reji Thomas CBC AUTO DIFFon 05-15-2022 BASO # 0.1 103/ul Normal 0.0-0.1 [facility] Comment on above: Performed By: #### B MP #### [facility] [address] [address] [address] Reji Thomas Basophils/100 WBC (Bld) 1.1 % Normal 0.2-2.0 [facility] Comment on above: Performed By: #### B MP #### [facility] [address] [place] [address] Dr. Reji Thomas EO # 0.5 103/ul Normal 0.0-0.7 [facility] Comment on above: Performed By: #### B MP #### [facility] [address] [place] [address] Dr. Reji Thomas Eosinophils/100 WBC (Bld) 6.5 % Normal 0.9-7.0 [facility] Comment on above: Performed By: #### B MP #### [facility] [address] [place] [address] Dr. Reji Thomas Erythrocyte distribution width (RBC) [Ratio] 16.1 % Critically high 11.0-15.0 [facility] Comment on above: Performed By: #### B MP #### [facility] [address] [place] [address] Dr. Reji Thomas Hematocrit (Bld) [Volume fraction] 35.0 % Critically low 36.0-48.0 [facility] Comment on above: Performed By: #### B MP #### [facility] [address] [place] [address] Dr. Reji Thomas Hemoglobin (Bld) [Mass/Vol] 11.1 g/dL Critically low 12.0-16.0 [facility] Comment on above: Performed By: #### B MP #### [facility] [address] [place] [address] Dr. Reji Thomas IG # 0.02 10e3/ul Normal 0.00-0.03 [facility] Comment on above: Performed By: #### B MP #### [facility] [address] [place] [address] Dr. Reji Thomas IG % 0.3 % Normal 0.0-0.5 [facility] Comment on above: Performed By: #### B MP #### [facility] [address] [place] [address] Dr. Reji Thomas LYMPH # 1.6 103/ul Normal 1.2-3.8 [facility] Comment on above: Performed By: #### B MP #### [facility] [address] [place] [address] Dr. Reji Thomas Lymphocytes/100 WBC (Bld) 22.4 % Normal 20.5-60.0 [facility] Comment on above: Performed By: #### B MP #### [facility] [address] [place] [address] Dr. Reji Thomas MANUAL DIFF REQ NO Normal [facility] Comment on above: Performed By: #### B MP #### [facility] [address] [place] [address] Dr. Reji Thomas MCH (RBC) [Entitic mass] 26.4 pg Critically low 26.7-34.0 [facility] Comment on above: Performed By: #### B MP #### [facility] [address] [place] [address] Dr. Reji Thomas MCHC (RBC) [Mass/Vol] 31.7 g/dL Normal 29.9-35.2 [facility] Comment on above: Performed By: #### B MP #### [facility] [address] [place] [address] Dr. Reji Thomas MCV (RBC) [Entitic vol] 83.1 fL Normal 81.0-99.0 [facility] Comment on above: Performed By: #### B MP #### [facility] [address] [address] [address] Reji Thomas MONO # 0.9 103/ul Critically high 0.3-0.8 [facility] Comment on above: Performed By: #### B MP #### [facility] [address] [address] [address] Reji Thomas Monocytes/100 WBC (Bld) 12.1 % Critically high 1.7-12.0 [facility] Comment on above: Performed By: #### B MP #### [facility] [address] [place] [address] Dr. Reji Thomas NEUT # 4.1 103/ul Normal 1.4-6.5 [facility] Comment on above: Performed By: #### B MP #### [facility] [address] [place] [address] Dr. Reji Thomas Neutrophils/100 WBC (Bld) 57.6 % Normal 43.0-75.0 [facility] Comment on above: Performed By: #### B MP #### [facility] [address] [place] [address] Dr. Reji Thomas Platelet mean volume (Bld) [Entitic vol] 8.8 fL Critically low 9.5-13.5 [facility] Comment on above: Performed By: #### B MP #### [facility] [address] [place] [address] Dr. Reji Thomas PLT 253 103/ul Normal 150-450 [facility] Comment on above: Performed By: #### B MP #### [facility] [address] [place] [address] Dr. Reji Thomas RBC 4.21 106/ul Normal 4.20-5.40 [facility] Comment on above: Performed By: #### B MP #### [facility] [address] [place] [address] Dr. Reji Thomas WBC 7.1 103/ul Normal 4.0-11.0 [facility] Comment on above: Performed By: #### B MP #### [facility] [address] [place] [address] Dr. Reji Thomas PROF CHEM 8 (BAS METB)on Anion gap [Moles/Vol] 10.5 mmol/L Normal [facility] Comment on above: Performed By: #### B EAR FLAP BINDER, CMP, TSH, LIPID #### [facility] [address] [address] [address] Reji Thomas Calcium [Mass/Vol] 8.9 mg/dL Normal 8.5-10.1 [facility] Comment on above: Performed By: #### B EAR FLAP BINDER, CMP, TSH, LIPID #### [facility] [address] [address] [address] Reji Thomas Chloride [Moles/Vol] 104 mmol/L Normal 98-107 [facility] Comment on above: Performed By: #### B EAR FLAP BINDER, CMP, TSH, LIPID #### [facility] [address] [place] [address] Dr. Reji Thomas CO2 [Moles/Vol] 29.5 mmol/L Normal 21.0-32.0 [facility] Comment on above: Performed By: #### B EAR FLAP BINDER, CMP, TSH, LIPID #### [facility] [address] [address] [address] Reji Thomas Creatinine [Mass/Vol] 1.73 mg/dL Critically high 0.55-1.02 [facility] Comment on above: Performed By: #### B EAR FLAP BINDER, CMP, TSH, LIPID #### [facility] [address] [address] [address] Reji Thomas EGFR-AF NEW ZEALANDER 34 mL/min/1.73m2 Critically low >=60 [facility] Comment on above: Performed By: #### B EAR FLAP BINDER, CMP, TSH, LIPID #### [facility] [address] [address] [address] Reji Thomas EGFR-NON AF NEW ZEALANDER 28 mL/min/1.73m2 Critically low >=60 [facility] Comment on above: Performed By: #### B EAR FLAP BINDER, CMP, TSH, LIPID #### [facility] [address] [address] [address] Reji Thomas Glucose [Mass/Vol] 79 mg/dL Normal 74-106 [facility] Comment on above: Performed By: #### B EAR FLAP BINDER, CMP, TSH, LIPID #### [facility] [address] [place] [address] Dr. Reji Thomas Potassium [Moles/Vol] 4.0 mmol/L Normal 3.5-5.1 [facility] Comment on above: Performed By: #### B EAR FLAP BINDER, CMP, TSH, LIPID #### [facility] [address] [address] [address] Reji Thomas Sodium [Moles/Vol] 140 mmol/L Normal 136-145 [facility] Comment on above: Performed By: #### B EAR FLAP BINDER, CMP, TSH, LIPID #### [facility] [address] [place] [address] Dr. Reji Thomas Urea nitrogen [Mass/Vol] 22.0 mg/dL Critically high 7.0-18.0 [facility] Comment on above: Performed By: #### B EAR FLAP BINDER, CMP, TSH, LIPID #### [facility] [address] [place] [address] Dr. Reji Thomas Urea nitrogen/Creatinine [Mass ratio] 12.7 mg/mg Normal [facility] Comment on above: Performed By: #### B EAR FLAP BINDER, CMP, TSH, LIPID #### [facility] [address] [place] [address] Dr. Reji Thomas PROTIMEon 05-15-2022 INR Coag (PPP) [Relative time] 2.53 {INR} Normal [facility] Comment on above: Performed By: #### B EAR FLAP BINDER, CMP, TSH, LIPID #### [facility] [address] [place] [address] Dr. Reji Thomas INR GUIDELINES SEE BELOW Normal [facility] Comment on above: Result Comment: SHY RED INR: 2.0 - 3.0 CONDITIONS NOT LISTED BELOW 2.5 - 3.5 FOR PROSTHETIC HEART VALVE REPLACEMENT 2.5 - 3.5 RECURRENT THROMBOSIS Performed By: #### B EAR FLAP BINDER, CMP, TSH, LIPID #### [facility] [address] [place] [address] Dr. Reji Thomas PT Coag (PPP) [Time] 25.7 s Critically high 9.0-11.6 [facility] Comment on above: Performed By: #### B EAR FLAP BINDER, CMP, TSH, LIPID #### [facility] [address] [address] [address] Reji Thomas ECHOCARDIO M/2D COMPLETEon 0 05-04-2022 ECHOCARDIO M/2D COMPLETE Patient: INEZ JUAREZ Exam Date: 05/04/2022 : 1940 Gender:F Ordering : DR JENN PRADO M.D. Admission #: [id number] Family : Order #: [id number] CLICK HERE TO VIEW EXAM ECHOCARDIOGRAM REPORT [...] Area(A4C): 27.20 cm2 Left Atrium Systolic Volume(A2C): 435238 mm3 Left Atrium Systolic Volume(A4C): 57489 mm3 Mitral Valve MV E to A Ratio: 2.60 Deceleration Gilliam: 85974 mm/s2 Mitral Valve A-Wave Peak Velocity: 58.60 [...] Prado M.D. on 05/07/2022 at 11:39 Normal [facility] EVAN by IFAon 04-19-2022 Antinuclear Antibodies, IFA Positive Abnormal [facility] Comment on above: Result Comment: Nega tive <1:80 Borderline 1:80 Positive >1:80 Performed By: #### B EAR FLAP BINDER, CMP, TSH, LIPID #### [facility] [address] [place] [address] Dr. Reji Thomas Centriole Pattern Normal [facility] Comment on above: Performed By: #### B EAR FLAP BINDER, CMP, TSH, LIPID #### [facility] [address] [address] [address] Reji Thomas Centromere Pattern Normal [facility] Comment on above: Performed By: #### B EAR FLAP BINDER, CMP, TSH, LIPID #### [facility] [address] [id number] Reji Thomas Homogeneous Pattern 1:320 Critically high [facility] Comment on above: Result Comment: ICAP nomenclature: AC-1 Performed By: #### B EAR FLAP BINDER, CMP, TSH, LIPID #### [facility] [address] [address] [address] Reji Thomas Midbody Pattern Normal [facility] Comment on above: Performed By: #### B EAR FLAP BINDER, CMP, TSH, LIPID #### [facility] [address] [address] [address] Reji Thomas Note: Comment Normal [facility] Comment on above: Result Comment: [...] titers Nucleosomes, Histones Drug-induced SLE Speckled Sm, TERRY CLOTH CUTTER HAND, SCL-70, SLE,MCTD,PSS (diffuse form), SS-A/SS-B Sjogrens Nucleolar SCL-70, PM-1/SCL High titers Scleroderma, PM/DM Centromere Centromere PSS (limited form) w/Crest syndrome variable Nuclear Dot [id number] Primary Biliary Cirrhosis Nuclear GP210, Primary Biliary Cirrhosis Membrane eleonora A,B,C Performed By: #### B EAR FLAP BINDER, CMP, TSH, LIPID #### [facility] [address] [place] [address] Dr. Reji Thomas Nuclear Dot Pattern Normal The [facility] Comment on above: Performed By: #### B EAR FLAP BINDER, CMP, TSH, LIPID #### [facility] [address] [place] [address] Dr. Reji Thomas Nuclear Membrane Pattern Normal [facility] Comment on above: Performed By: #### B EAR FLAP BINDER, CMP, TSH, LIPID #### [facility] [address] [address] [address] Reji Thomas Nucleolar Pattern Normal [facility] Comment on above: Performed By: #### B EAR FLAP BINDER, CMP, TSH, LIPID #### [facility] [address] [address] [address] Reji Thomas PCNA Pattern Normal [facility] Comment on above: Performed By: #### B EAR FLAP BINDER, CMP, TSH, LIPID #### [facility] [address] [address] [address] Reji Thomas Speckled Pattern Normal [facility] Comment on above: Performed By: #### B EAR FLAP BINDER, CMP, TSH, LIPID #### [facility] [address] [address] [address] Reji Thomas Spindle Apparatus Pattern Normal [facility] Comment on above: Performed By: #### B EAR FLAP BINDER, CMP, TSH, LIPID #### [facility] [address] [address] [address] Reji Thomas ANCA (ANTINEUTROPHIL CYTOPLA MSMIC ABon 04-18-2022 Atypical pANCA <1:20 Normal Neg:<1:20 [facility] Comment on above: Result Comment: Seru m is slightly hemolyzed The atypical pANCA pattern has been observed in a significant percentage of patients with ulcerative colitis, primary sclerosing cholangitis and autoimmune hepatitis. Performed By: #### B MP #### [facility] [address] [address] [address] Reji Thomas Cytoplasmic (C-ANCA) <1:20 Normal Neg:<1:20 [facility] Comment on above: Result Comment: Seru m is slightly hemolyzed Performed By: #### B MP #### [facility] [address] [address] [address] Reji Thomas Perinuclear (P-ANCA) <1:20 Normal Neg:<1:20 [facility] Comment on above: Result Comment: Seru m is slightly hemolyzed The presence of positive fluorescence exhibiting P-ANCA or C-ANCA patterns alone is not specific for the diagnosis of Arlene's Granulomatosis (WG) or microscopic polyangiitis. Decisions about treatment should not be based solely on ANCA IFA results. The [employer] ANCA [employer] Consensus recommends follow up testing of positive sera with both ME-3 and MPO-ANCA enzyme immunoassays. As many as 5% serum samples are positive only by EIA. Ref. AM J Clin Pathol 1999;111:507-513. Performed By: #### B MP #### [facility] [address] [place] [address] Dr. Reji Thomas ANTISCLERODERMA ABon 022 Antiscleroderma-70 Antibodies 0.3 AI Normal 0.0-0.9 [facility] Comment on above: Performed By: #### B EAR FLAP BINDER, CMP, TSH, LIPID #### [facility] [address] [place] [address] Dr. Reji Thomas T3 UPTAKEon 04-18-2022 Free Thyroxine Index 1.8 Normal 1.2-4.9 [facility] Comment on above: Performed By: #### B EAR FLAP BINDER, CMP, TSH, LIPID #### [facility] [address] [place] [address] Dr. Reji Thomas T3 Uptake 23 % Critically low 24-39 [facility] Comment on above: Performed By: #### B EAR FLAP BINDER, CMP, TSH, LIPID #### [facility] [address] [place] [address] Dr. Reji Thomas T4 LABCORPon 04-18-2022 T4 [Mass/Vol] 7.8 ug/dL Normal 4.5-12.0 [facility] Comment on above: Performed By: #### B EAR FLAP BINDER, CMP, TSH, LIPID #### [facility] [address] [place] [address] Dr. Reji Thomas BNPon 04-16-2022 Natriuretic peptide B (Bld) [Mass/Vol] 2870.0 pg/mL Critically high <=1,800.0 [facility] Comment on above: Result Comment: repe ated Performed By: #### B EAR FLAP BINDER, CMP, TSH, LIPID #### [facility] [address] [place] [address] Dr. Reji Thomas CBC AUTO DIFFon 04-16-2022 BASO # 0.1 103/ul Normal 0.0-0.1 [facility] Comment on above: Performed By: #### B EAR FLAP BINDER, CMP, TSH, LIPID #### [facility] [address] [place] [address] Dr. Reji Thomas Basophils/100 WBC (Bld) 0.9 % Normal 0.2-2.0 [facility] Comment on above: Performed By: #### B EAR FLAP BINDER, CMP, TSH, LIPID #### [facility] [address] [place] [address] Dr. Reji Thomas EO # 0.3 103/ul Normal 0.0-0.7 [facility] Comment on above: Performed By: #### B EAR FLAP BINDER, CMP, TSH, LIPID #### [facility] [address] [place] [address] Dr. Reji Thomas Eosinophils/100 WBC (Bld) 3.9 % Normal 0.9-7.0 [facility] Comment on above: Performed By: #### B EAR FLAP BINDER, CMP, TSH, LIPID #### [facility] [address] [place] [address] Dr. Reji Thomas Erythrocyte distribution width (RBC) [Ratio] 15.9 % Critically high 11.0-15.0 [facility] Comment on above: Performed By: #### B EAR FLAP BINDER, CMP, TSH, LIPID #### [facility] [address] [place] [address] Dr. Reji Thomas Hematocrit (Bld) [Volume fraction] 38.1 % Normal 36.0-48.0 [facility] Comment on above: Performed By: #### B EAR FLAP BINDER, CMP, TSH, LIPID #### [facility] [address] [place] [address] Dr. Reji Thomas Hemoglobin (Bld) [Mass/Vol] 12.1 g/dL Normal 12.0-16.0 [facility] Comment on above: Performed By: #### B EAR FLAP BINDER, CMP, TSH, LIPID #### [facility] [address] [place] [address] Dr. Reji Thomas IG # 0.02 10e3/ul Normal 0.00-0.03 [facility] Comment on above: Performed By: #### B EAR FLAP BINDER, CMP, TSH, LIPID #### [facility] [address] [place] [address] Dr. Reji Thomas IG % 0.3 % Normal 0.0-0.5 [facility] Comment on above: Performed By: #### B EAR FLAP BINDER, CMP, TSH, LIPID #### [facility] [address] [place] [address] Dr. Reji Thomas LYMPH # 1.6 103/ul Normal 1.2-3.8 [facility] Comment on above: Performed By: #### B EAR FLAP BINDER, CMP, TSH, LIPID #### [facility] [address] [place] [address] Dr. Reji Thomas Lymphocytes/100 WBC (Bld) 22.6 % Normal 20.5-60.0 [facility] Comment on above: Performed By: #### B EAR FLAP BINDER, CMP, TSH, LIPID #### [facility] [address] [place] [address] Dr. Reji Thomas MANUAL DIFF REQ NO Normal [facility] Comment on above: Performed By: #### B EAR FLAP BINDER, CMP, TSH, LIPID #### [facility] [address] [place] [address] Dr. Reji Thomas MCH (RBC) [Entitic mass] 26.5 pg Critically low 26.7-34.0 [facility] Comment on above: Performed By: #### B EAR FLAP BINDER, CMP, TSH, LIPID #### [facility] [address] [place] [address] Dr. Reji Thomas MCHC (RBC) [Mass/Vol] 31.8 g/dL Normal 29.9-35.2 [facility] Comment on above: Performed By: #### B EAR FLAP BINDER, CMP, TSH, LIPID #### [facility] [address] [place] [address] Dr. Reji Thomas MCV (RBC) [Entitic vol] 83.4 fL Normal 81.0-99.0 [facility] Comment on above: Performed By: #### B EAR FLAP BINDER, CMP, TSH, LIPID #### [facility] [address] [place] [address] Dr. Reji Thomas MONO # 0.6 103/ul Normal 0.3-0.8 [facility] Comment on above: Performed By: #### B EAR FLAP BINDER, CMP, TSH, LIPID #### [facility] [address] [place] [address] Dr. Reji Thomas Monocytes/100 WBC (Bld) 9.3 % Normal 1.7-12.0 [facility] Comment on above: Performed By: #### B EAR FLAP BINDER, CMP, TSH, LIPID #### [facility] [address] [place] [address] Dr. Reji Thomas NEUT # 4.3 103/ul Normal 1.4-6.5 [facility] Comment on above: Performed By: #### B EAR FLAP BINDER, CMP, TSH, LIPID #### [facility] [address] [place] [address] Dr. Reji Thomas Neutrophils/100 WBC (Bld) 63.0 % Normal 43.0-75.0 [facility] Comment on above: Performed By: #### B EAR FLAP BINDER, CMP, TSH, LIPID #### [facility] [address] [place] [address] Dr. Reji Thomas Platelet mean volume (Bld) [Entitic vol] 9.2 fL Critically low 9.5-13.5 [facility] Comment on above: Performed By: #### B EAR FLAP BINDER, CMP, TSH, LIPID #### [facility] [address] [place] [address] Dr. Reji Thomas PLT 211 103/ul Normal 150-450 [facility] Comment on above: Performed By: #### B EAR FLAP BINDER, CMP, TSH, LIPID #### [facility] [address] [place] [address] Dr. Reji Thomas RBC 4.57 106/ul Normal 4.20-5.40 [facility] Comment on above: Performed By: #### B EAR FLAP BINDER, CMP, TSH, LIPID #### [facility] [address] [place] [address] Dr. Reji Thomas WBC 6.9 103/ul Normal 4.0-11.0 [facility] Comment on above: Performed By: #### B EAR FLAP BINDER, CMP, TSH, LIPID #### [facility] [address] [place] [address] Dr. Reji Thomas GLYCOHEMOGLOBIN A1Con 2021 ADA RECOMMENDATION SEE BELOW Normal [facility] Comment on above: Result Comment: ADA RECOMMENDED LIMIT 4.0 - 6.0 ADA THERAPEUTIC TARGET < 7.0 ACTION SUGGESTED > 7.0 Performed By: #### B EAR FLAP BINDER, CMP, TSH, LIPID #### [facility] [address] [place] [address] Dr. Reji Thomas Glucose [Mass/Vol] 100 mg/dL Normal [facility] Comment on above: Performed By: #### B EAR FLAP BINDER, CMP, TSH, LIPID #### [facility] [address] [address] [address] Reji Thomas HbA1c (Bld) [Mass fraction] 5.1 % Normal 4.5-6.2 [facility] Comment on above: Performed By: #### B EAR FLAP BINDER, CMP, TSH, LIPID #### [facility] [address] [place] [address] Dr. Reji Thomas IRONon 04-16-2022 Iron [Mass/Vol] 42.0 ug/dL Critically low 50.0-170.0 [facility] Comment on above: Performed By: #### B EAR FLAP BINDER, CMP, TSH, LIPID #### [facility] [address] [place] [address] Dr. Reji Thomas LIPID PROFILEon 04-16-2022 CHOL-HDL RATIO NORM SEE BELOW Normal [facility] Comment on above: Result Comment: 3.3 - 4.4 LOW RISK 4.4 - 7.1 AVERAGE RISK 7.1 - 11.0 MODERATE RISK >11.0 HIGH RISK Performed By: #### B EAR FLAP BINDER, CMP, TSH, LIPID #### [facility] [address] [place] [address] Dr. Reji Thomas Cholesterol [Mass/Vol] 176 mg/dL Normal <=200 [facility] Comment on above: Performed By: #### B EAR FLAP BINDER, CMP, TSH, LIPID #### [facility] [address] [place] [address] Dr. Reji Thomas Cholesterol in HDL [Mass/Vol] 52 mg/dL Normal 40-60 [facility] Comment on above: Performed By: #### B EAR FLAP BINDER, CMP, TSH, LIPID #### [facility] [address] [address] [address] Reji Thomas Cholesterol in LDL [Mass/Vol] 102.8 mg/dL Normal [facility] Comment on above: Performed By: #### B EAR FLAP BINDER, CMP, TSH, LIPID #### [facility] [address] [address] [address] Reji Thomas Cholesterol.total/Ch olesterol in HDL [Mass ratio] 3.4 {ratio} Normal [facility] Comment on above: Performed By: #### B EAR FLAP BINDER, CMP, TSH, LIPID #### [facility] [address] [address] [address] Reji Thomas HDL NORMAL > or = 60 mg/dl - LOW CARDIOVASCULAR RISK <40 mg/dl - HIGH CARDIOVASCULAR RISK Normal [facility] Comment on above: Performed By: #### B EAR FLAP BINDER, CMP, TSH, LIPID #### [facility] [address] [address] [address] Reji Thomas LDL CALC NORMAL SEE BELOW Normal [facility] Comment on above: Result Comment: <100 mg/dl OPTIMAL 100 - 129 mg/dl NEAR OR ABOVE OPTIMAL 130 - 159 mg/dl BORDERLINE HIGH 160 - 189 mg/dl HIGH >190 mg/dl VERY HIGH Performed By: #### B EAR FLAP BINDER, CMP, TSH, LIPID #### [facility] [address] [place] [address] Dr. Reji Thomas Triglyceride [Mass/Vol] 106 mg/dL Normal <=150 [facility] Comment on above: Performed By: #### B EAR FLAP BINDER, CMP, TSH, LIPID #### [facility] [address] [address] [address] Reji Thomas VLDL CALC 21.2 mg/dL Normal [facility] Comment on above: Performed By: #### B EAR FLAP BINDER, CMP, TSH, LIPID #### [facility] [address] [address] [address] Reji Thomas PROF 14(COMP METB)on 022 Albumin [Mass/Vol] 3.6 g/dL Normal 3.4-5.0 [facility] Comment on above: Performed By: #### B EAR FLAP BINDER, CMP, TSH, LIPID #### [facility] [address] [place] [address] Dr. Reji Thomas Albumin/Globulin [Mass ratio] 0.9 {ratio} Normal [facility] Comment on above: Performed By: #### B EAR FLAP BINDER, CMP, TSH, LIPID #### [facility] [address] [place] [address] Dr. Reji Thomas ALP [Catalytic activity/Vol] 62 U/L Normal 46-116 [facility] Comment on above: Performed By: #### B EAR FLAP BINDER, CMP, TSH, LIPID #### [facility] [address] [place] [address] Dr. Reji Thomas ALT [Catalytic activity/Vol] 14 U/L Normal 14-59 [facility] Comment on above: Performed By: #### B EAR FLAP BINDER, CMP, TSH, LIPID #### [facility] [address] [place] [address] Dr. Reji Thomas Anion gap [Moles/Vol] 14.5 mmol/L Normal [facility] Comment on above: Performed By: #### B EAR FLAP BINDER, CMP, TSH, LIPID #### [facility] [address] [place] [address] Dr. Reji Thomas AST [Catalytic activity/Vol] 17 U/L Normal 15-37 [facility] Comment on above: Performed By: #### B EAR FLAP BINDER, CMP, TSH, LIPID #### [facility] [address] [place] [address] Dr. Reji Thomas Bilirubin [Mass/Vol] 0.6 mg/dL Normal 0.2-1.0 [facility] Comment on above: Performed By: #### B EAR FLAP BINDER, CMP, TSH, LIPID #### [facility] [address] [place] [address] Dr. Reij Thomas Calcium [Mass/Vol] 8.8 mg/dL Normal 8.5-10.1 [facility] Comment on above: Performed By: #### B EAR FLAP BINDER, CMP, TSH, LIPID #### [facility] [address] [place] [address] Dr. Reji Thomas Chloride [Moles/Vol] 102 mmol/L Normal 98-107 [facility] Comment on above: Performed By: #### B EAR FLAP BINDER, CMP, TSH, LIPID #### [facility] [address] [address] [address] Reji Thomas CO2 [Moles/Vol] 26.3 mmol/L Normal 21.0-32.0 [facility] Comment on above: Performed By: #### B EAR FLAP BINDER, CMP, TSH, LIPID #### [facility] [address] [place] [address] Dr. Reji Thomas Creatinine [Mass/Vol] 1.76 mg/dL Critically high 0.55-1.02 [facility] Comment on above: Performed By: #### B EAR FLAP BINDER, CMP, TSH, LIPID #### [facility] [address] [place] [address] Dr. Reji Thomas EGFR-AF NEW ZEALANDER 33 mL/min/1.73m2 Critically low >=60 [facility] Comment on above: Performed By: #### B EAR FLAP BINDER, CMP, TSH, LIPID #### [facility] [address] [place] [address] Dr. Reji Thomas EGFR-NON AF NEW ZEALANDER 28 mL/min/1.73m2 Critically low >=60 [facility] Comment on above: Performed By: #### B EAR FLAP BINDER, CMP, TSH, LIPID #### [facility] [address] [place] [address] Dr. Reji Thomas Globulin (S) [Mass/Vol] 4.2 g/dL Normal [facility] Comment on above: Performed By: #### B EAR FLAP BINDER, CMP, TSH, LIPID #### [facility] [address] [place] [address] Dr. Reji Thomas Glucose [Mass/Vol] 81 mg/dL Normal 74-106 [facility] Comment on above: Performed By: #### B EAR FLAP BINDER, CMP, TSH, LIPID #### [facility] [address] [place] [address] Dr. Reji Thomas Potassium [Moles/Vol] 3.8 mmol/L Normal 3.5-5.1 [facility] Comment on above: Performed By: #### B EAR FLAP BINDER, CMP, TSH, LIPID #### [facility] [address] [address] [address] Reji Thomas Protein [Mass/Vol] 7.8 g/dL Normal 6.4-8.2 [facility] Comment on above: Performed By: #### B EAR FLAP BINDER, CMP, TSH, LIPID #### [facility] [address] [address] [address] Reji Thomas Sodium [Moles/Vol] 139 mmol/L Normal 136-145 [facility] Comment on above: Performed By: #### B EAR FLAP BINDER, CMP, TSH, LIPID #### [facility] [address] [address] [address] Reji Thomas Urea nitrogen [Mass/Vol] 27.0 mg/dL Critically high 7.0-18.0 [facility] Comment on above: Performed By: #### B EAR FLAP BINDER, CMP, TSH, LIPID #### [facility] [address] [address] [address] Reji Thomas Urea nitrogen/Creatinine [Mass ratio] 15.3 mg/mg Normal [facility] Comment on above: Performed By: #### B EAR FLAP BINDER, CMP, TSH, LIPID #### [facility] [address] [place] [address] Dr. Reji Thomas PROTIMEon 04-16-2022 INR Coag (PPP) [Relative time] 1.92 {INR} Normal [facility] Comment on above: Performed By: #### B EAR FLAP BINDER, CMP, TSH, LIPID #### [facility] [address] [place] [address] Dr. Reji Thomas INR GUIDELINES SEE BELOW Normal [facility] Comment on above: Result Comment: SHY RED INR: 2.0 - 3.0 CONDITIONS NOT LISTED BELOW 2.5 - 3.5 FOR PROSTHETIC HEART VALVE REPLACEMENT 2.5 - 3.5 RECURRENT THROMBOSIS Performed By: #### B EAR FLAP BINDER, CMP, TSH, LIPID #### [facility] [address] [place] [address] Dr. Reji Thomas PT Coag (PPP) [Time] 19.9 s Critically high 9.0-11.6 [facility] Comment on above: Performed By: #### B EAR FLAP BINDER, CMP, TSH, LIPID #### [facility] [address] [address] [address] Reji Thomas SED RATE WESTERGRENon 2021 SED RATE 37 mm/hr Critically high <=30 [facility] Comment on above: Performed By: #### B EAR FLAP BINDER, CMP, TSH, LIPID #### [facility] [address] [place] [address] Dr. Reji Thomas TSHon 04-16-2022 TSH 1.941 uIU/mL Normal 0.358-3.740 [facility] Comment on above: Performed By: #### B EAR FLAP BINDER, CMP, TSH, LIPID #### [facility] [address] [place] [address] Dr. Reji Thomas TSH RANGE SEE BELOW Normal [facility] Comment on above: Result Comment: <0.3 4 UIU/ml HYPERTHYROID 0.34-5.60 UIU/ml EUTHYROID >5.60 UIU/ml HYPOTHYROID Performed By: #### B EAR FLAP BINDER, CMP, TSH, LIPID #### [facility] [address] [place] [address] Dr. Reji Thomas VITAMIN D 25 OHon 04-16-2022 VIT D 25-OH 56.6 ng/mL Normal [facility] Comment on above: Performed By: #### B EAR FLAP BINDER, CMP, TSH, LIPID #### [facility] [address] [place] [address] Dr. Reji Thomas VIT D RANGES SEE BELOW Normal [facility] Comment on above: Result Comment: <20 ng/mL Vit D deficient 20 - <30 ng/mL Vit D insufficient 30 - 100 ng/mL Vit D sufficient >100 ng/mL Potential Toxicity Performed By: #### B EAR FLAP BINDER, CMP, TSH, LIPID #### [facility] [address] [place] [address] Dr. Reji Thomas Cardiovascular Lab Reporton 11-02-2021 Cardiovascular Lab Report [facility] Patient Name: Inez Juarez MR #: [id number] [facility] Physician: Jenn Prado M.D. Department of Service Date: 11/01/2021 Medicine Birthdate: 1940 Division of Room #: Cardiology Adult Cardiovascular Services [place] [address] Cardiovascular Laboratory Report INDICATION: The patient is [...] She signed consent. 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 The right neck area was prepped and draped in usual fashion. Micropuncture technique and ultrasound guidance were used for access in the right internal jugular vein. A 6-Syrian x 11 cm sheath was placed. A 6-Syrian Hernández catheter was used for heart catheterization [...] Prado M.D. Date Trans: 11/01/2021 11:22 P/alondra [id number] cc: Bruce Rizvi M.D. [address], [facility] [place] [address] [facility] Cardiovascular Lab Reporton 06-02-2021 Cardiovascular Lab Report [facility] Patient Name: Inez Juarez MR #: [id number] [facility] Physician: Jenn Prado M.D. Department of Service Date: 06/02/2021 Medicine Birthdate: 1940 Division of Room #: CC Cardiology Adult Cardiovascular Services [place] [address] Cardiovascular Laboratory Report INDICATION: The patient is [...] the informed consent. 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 The right neck area was prepped and draped in usual fashion. Using micropuncture technique and ultrasound guidance, the right internal jugular vein was accessed and a 6-Syrian x 11 cm sheath was placed. A 6-Syrian Hernández catheter was used for heart catheterization [...] A Jenn Prado M.D. Date Dict: 06/02/2021/01:29 P/eJnn Prado M.D. Date Trans: 06/02/2021 02:42 P/alondra [id number] cc: Bruce Rizvi M.D. [address] [facility] [place] [facility] [place] [address] [facility] Encounters Encounter Date Encounter Type Care Provider Facility Start: 12-13-2023 End: 12-13-2023 ambulatory [facility] Start: 10-30-2023 End: 10-30-2023 ambulatory [facility] Start: 10-22-2023 End: 10-22-2023 ambulatory ANTONY SMITH [facility] Start: 05-20-2023 End: 05-20-2023 ambulatory JENN PRADO [facility] Start: 03-22-2023 End: 03-23-[address] BRUCE [...] Start: 11-01-2021 End: 11-02-2021 ambulatory PROVIDER UNKNOWN Facility:[facility] Start: 06-02-2021 End: 06-03-2021 ambulatory PROVIDER UNKNOWN Facility:[facility] Payers Date Payer Category Payer Medicare [id number] 1961 Medicare [id number] 1961 Medicare [id number] 1961 Self-pay [id number] 1940 Unknown [id number] 2.16.8 [id number] 1940 Unknown [id number] 2.16.8 40.1.765503.3.579.2.647 1938 Unknown [id number] 2.16.84 0.1.032445.3.579.2.593 1938 Unknown [id number] 2.16.84 0.1.617308.3.579.2.593 1938 Unknown [id number] 2.16.84 0.1.864858.3.579.2.593 1938 Unknown [id number] 2.16.84 0.1.600904.3.579.2.593 1938 Unknown [id number] 2.16.84 0.1.924773.3.579.2.593 1938 Unknown [id number] 2.16.84 0.1.059126.3.579.2.593 1938 Unknown [id number] 2.16.84 0.1.135260.3.579.2.593 1938 Unknown [id number] 2.16.84 0.1.148014.3.579.2.593 1938 Unknown [id number] 2.16.84 0.1.563319.3.579.2.593 1938 Unknown [id number] 2.16.84 0.1.231392.3.579.2.593 1938 Unknown [id number] 2.16.84 0.1.308590.3.579.2.593 1938 Unknown [id number] 2.16.84 0.1.818181.3.579.2.593 1938 Unknown [id number] 2.16.84 0.1.301163.3.579.2.593 1938 Unknown [id number] 2.16.84 0.1.482161.3.579.2.593 1938 Unknown [id number] 2.16.84 0.1.090665.3.579.2.593 1938 Unknown [id number] 2.16.84 0.1.783750.3.579.2.593 1938 Unknown [id number] 2.16.84 0.1.015669.3.579.2.593 1938 Unknown [id number] 2.16.84 0.1.079619.3.579.2.593 1938 Unknown [id number] 2.16.84 0.1.522956.3.579.2.593 Private Health Insurance WVB [id number] Progress note 12-13-2023 Note Date & Type Note Facility 12-13-2023 Note DC Cardiology - [facility] Petrona Juarez is a 83 [...] Nose: Nose james (more content not included)... [facility] Progress note 10-30-2023 Note Date & Type Note Facility 10-30-2023 Note DC Cardiology - [facility] Subjective Inez Juarez is a 83 [...] Murmur heard. Systol (more content not included)... [facility] Clinical Note 10-22-2023 Note Date & Type Note Facility 10-22-2023 Note Patient: Inez foss Procedure Information Date/Time: 10/22/23 0830 Procedure: Right heart cath Location: [facility] 3 / [facility] (Cath) Providers: Antony Smith [...] with fellow and attending. Additional Equipment Requests [facility] Clinical Note 10-15-2023 Note Date & Type Note Facility 10-15-[address] Smith regarding warfarin. Dr Smith requested warfarin to be held for 3 days prior to procedure. [facility] Progress note 09-19-2023 Note Date & Type Note Facility 09-19-2023 Note [facility] Progress note 05-20-2023 Note Date & Type Note Facility 05-20-2023 Note DC Cardiology - [facility] Petrona Juarez is a 83 y.o. year [...] present. Comments: Large (more content not included)... [facility] Summary Purpose Family History No Family History Records FoundNo Family History Records FoundNo Family History Records FoundNo Family History Records Found Advance Directives No Advanced Directives Records FoundNo Advanced Directives Records FoundNo Advanced Directives Records FoundNo Advanced Directives Records Found Additional Source Comments INFORMATION SOURCE (unrecogn ized section and content) DATE CREATED AUTHOR 11/03/2021 [facility] DATE CREATED AUTHOR AUTHOR'S ORGANIZ ATION 07/05/2022 [facility] DATE CREATED AUTHOR AUTHOR'S ORGANIZ ATION 03/23/2023 [facility] DATE CREATED AUTHOR AUTHOR'S ORGANIZ ATION 12/14/2023 [facility] FOR RECORDS PERTAINING TO PATIENTS WHO [...] BE BASED ON THE PRIMARY CLINICAL RECORDS. [employer] [facility]. provides no warranty or guarantee of the accuracy or completeness of information in this document.
[2024-04-13 15:54] LABS: INR 1.47
== END 2024-04-13 15:31 | disposition home or self-care (01) ==
LOC: LAB 15:30
PROVIDERS: PCP Family Medicine; Visit Provider Family Medicine
DX: I48.91 Unspecified atrial fibrillation (principal)
CPT/HCPCS: 36415; 85610

== ENCOUNTER 2024-05-07 12:08 | Outpatient (OUT) | payer MEDICARE, SELFPAY ==
[2024-05-07 12:48] LABS: INR 1.47
== END 2024-05-07 12:09 | disposition home or self-care (01) ==
LOC: LAB 12:08
PROVIDERS: PCP Family Medicine; Visit Provider Family Medicine
DX: I48.91 Unspecified atrial fibrillation (principal)
CPT/HCPCS: 36415; 85610

== ENCOUNTER 2024-06-08 12:52 | Outpatient (OUT) | payer MEDICARE, SELFPAY ==
--- NOTE | 2024-06-08 13:06 | CA_ITS ---
Patient Name: FABY JUAREZ MR#: [id number] : 1940 Exam Date: 06/08/2024 Ordering Doctor: DR JENN PRADO M.D. ECHOCARDIOGRAM REPORT PROCEDURE: CA ECHO DOPPLER COMPLETE INDICATIONS: Pulmonary hypertension COMPARISON: None. DESCRIPTION: COMPLETE ECHOCARDIOGRAM Real-time transthoracic echocardiography with 2D, M-mode, spectral and color flow Doppler performed. QUALITY: Technical quality was good. LEFT VENTRICLE: Normal chamber size. Normal left ventricular wall thickness. LV EF: Global left ventricular systolic function is normal. Visual estimation of left ventricular ejection fraction is 65%. Abnormal septal motion consistent right ventricular pressure and/or volume overload. DIASTOLIC: Grade III diastolic dysfunction. ATRIAL SEPTUM: Inadequately seen. LEFT ATRIUM: Severe dilatation. RIGHT ATRIUM: Severe dilatation. RIGHT VENTRICLE: Mild dilatation. Decreased right ventricular systolic function. TRICUSPID VALVE: Normal mobility and thickness. Mild regurgitation. Moderate pulmonary hypertension. RVSP 59mmHg MITRAL VALVE: Normal mobility and thickness. No evidence of mitral valve stenosis. There is no mitral annular calcification. Mild mitral regurgitation. AORTIC VALVE: Normal trileaflet appearance. Mildly calcified aortic valve. Mildly diminished mobility. Doppler velocity suggests mild aortic valve stenosis. DVI 0.4, SALLY 1.2cm2, Vmax 2.3m/s, Mean gradient 13mmHg.Trivial aortic regurgitation. AORTIC ROOT: Normal diameter and appearance. PULMONIC VALVE: Normal thickness and mobility. No stenosis. Trivial regurgitation. PERICARDIUM: No evidence of pericardial effusion. IVC: Collapses with inspirations. Normal size. CONCLUSION: 1. Global left ventricular systolic function is normal; visually estimated ejection fraction is 60 to 65% 2. The right ventricle is mildly dilated with reduced systolic function 3. Severe biatrial enlargement 4. Grade 3 diastolic dysfunction 5. Mild tricuspid regurgitation 6. Mildly elevated right ventricular systolic pressure; RVSP 59 mmHg 7. Mild mitral regurgitation 8. Mild aortic valve stenosis Adult Echocardiography Procedure Report Left Ventricle LVEDD (3.7 - 5.6 cm): 4.86 cm LVESD (2.2 - 4.0 cm): 3.51 cm LVIVS thickness (0.6 - 1.2 cm): 0.78 cm LVPW thickness (0.5 - 1.0 cm): 1.04 cm e': 0.13 m/s E - e': 9.90 LVOT Max Gradient: 4.12 mm[Hg] LVOT Area (cm2): 1.02 m/s Peak Velocity (LVOT): 1.02 m/s Mean Velocity (LVOT): 0.72 m/s LVOT Diameter 1.82 cm Left Ventricular Ejection Fraction: 65.09 % Left Atrium LA Volume Index (2D A2C): 62.80 ml/m2 Left Atrium Systolic Dimension: 4.93 cm Mitral Valve MV E to A Ratio: 2.61 Mitral Valve A-Wave Peak Velocity: 0.49 m/s Mitral Valve E-Wave Peak Velocity: 1.27 m/s Right Ventricle RV Internal Diastolic Dimension: 4.04 cm Aorta AO Root Diam: 2.79 cm Ascending Ao Diam: 2.31 cm Aortic Valve AoV Area (Peak Mark): 1.16 cm2, 1.21 cm2 AoV Area (VTI): 1.09 cm2, 1.11 cm2 Peak Velocity(Antegrade Flow): 2.18 m/s, 2.34 m/s Peak Gradient(Antegrade Flow): 19.00 mm[Hg], 21.95 mm[Hg] Mean Velocity(Antegrade Flow): 1.60 m/s, 1.67 m/s Mean Gradient(Antegrade Flow): 11.41 mm[Hg], 12.63 mm[Hg] Velocity Time Integral: 55.90 cm, 58.20 cm Tricuspid Valve Peak Velocity (Regurgitant Flow): 3.47 m/s, 3.36 m/s, 3.76 m/s, 3.73 m/s Pulmonic Valve Mean Gradient: 1.87 mm[Hg], 1.97 mm[Hg] Mean Velocity: 0.64 m/s, 0.66 m/s Peak Velocity: 0.95 m/s Peak Gradient: 3.44 mm[Hg], 3.83 mm[Hg] Right Atrium Right Atrium Systolic Pressure: 122.64 ml, 122.64 ml Dictated by: Jr Montaño M.D. on 06/09/2024 at 13:42 Approved by: Jr Montaño M.D. on 06/09/2024 at 13:46
--- OUTSIDE RECORDS SUMMARY | 2024-06-08 13:06 | XMS_ITS | CCD ---
Author Organization [facility] Care Team Providers Care Commissioning Engineer Name Role Phone UNKNOWN, PROVIDER Attending Unavailable [...] 04-16-2022 Episodic Other aftercare (4 sources) Other shelter (current) drug therapy; Translations: [OTH [facility] CURRENT DRUG THERAPY] Onset: 06-04-2022 Episodic Other [...] Range Facility Office Visiton 12-13-2023 Follow-up visit [id number] Inez Juarez 1940 F Date Provider Department Center 12/13/2023 JENN AMANDA BARBRA [place] Family History Problem Relation Age of Onset Hypertension Mother Coronary artery disease Father Hypertension Father Family Status - Relation Status Age at Mother Father Level of Service:53504 AR OFFICE/OUTPATIENT ESTABLISHED MOD MDM 30 MIN Normal [facility] Office Visiton 10-30-2023 Follow-up visit [id number] Inez Juarez 1940 F Date Provider Department Center 10/30/2023 JENN AMANDA BARBRA [place] Family History Problem Relation Age of Onset Hypertension Mother Coronary artery disease Father Hypertension Father Family Status - Relation Status Age at Mother Father Level of Service:31494 AR OFFICE/OUTPATIENT ESTABLISHED MOD MDM 30 MIN Normal [facility] HPon 10-22-2023 HP History Of Present [...] a past medical history of Atrial fibrillation ([facility]), CHF (congestive heart failure) ([facility]), Chronic kidney disease, GERD (gastroesophageal reflux disease), [...] Results Reviewed Relevant (more content not included)... [facility] NURSNOTEon 10-22-2023 NURSNOTE RN educated pt on d/c instructions. RN encouraged pt to voice any questions or concerns. Pt verbalizes no questions or concerns at this time. [facility] Office Visiton 05-20-2023 Follow-up visit [id number] Inez Juarez 1940 F Date Provider Department Center 05/20/2023 JENN AMANDA [facility] Family History Problem Relation Age of Onset Hypertension Mother Coronary artery disease Father Hypertension Father Family Status - Relation Status Age at Mother Father Level of Service:87120 AR OFFICE/OUTPATIENT ESTABLISHED MOD MDM 30-39 MIN Reason for Visit and Comments: Shortness of Breath [696024] Fatigue [46] Follow-up [327088] [facility] BNPon 03-22-2023 Natriuretic peptide B (Bld) [Mass/Vol] 1423.0 pg/mL Normal <=1,800.0 [facility] Comment on above: Performed By: #### B PLATER PRODUCTION, CMP, TSH, LIPID #### [facility] [address] [address] [address] Reji Thomas CBC AUTO DIFFon 03-22-2023 BASO # 0.1 103/ul Normal 0.0-0.1 [facility] Comment on above: Performed By: #### B MP #### [facility] [address] [address] [address] Reji Thomas Basophils/100 WBC (Bld) 1.0 % Normal 0.2-2.0 [facility] Comment on above: Performed By: #### B MP #### [facility] [address] [address] [address] Reji Thomas EO # 0.2 103/ul Normal 0.0-0.7 [facility] Comment on above: Performed By: #### B MP #### [facility] [address] [place] [address] Dr. Reji Thomas Eosinophils/100 WBC (Bld) 3.3 % Normal 0.9-7.0 [facility] Comment on above: Performed By: #### B MP #### [facility] [address] [place] [address] Dr. Reji Thomas Erythrocyte distribution width (RBC) [Ratio] 15.4 % Critically high 11.0-15.0 [facility] Comment on above: Performed By: #### B MP #### [facility] [address] [place] [address] Dr. Reji Thomas Hematocrit (Bld) [Volume fraction] 35.2 % Critically low 36.0-48.0 [facility] Comment on above: Performed By: #### B MP #### [facility] [address] [place] [address] Dr. Reji Thomas Hemoglobin (Bld) [Mass/Vol] 11.4 g/dL Critically low 12.0-16.0 [facility] Comment on above: Performed By: #### B MP #### [facility] [address] [place] [address] Dr. Reji Thomas IG # 0.02 10e3/ul Normal 0.00-0.03 [facility] Comment on above: Performed By: #### B MP #### [facility] [address] [place] [address] Dr. Reji Thomas IG % 0.3 % Normal 0.0-0.5 [facility] Comment on above: Performed By: #### B MP #### [facility] [address] [place] [address] Dr. Reji Thomas LYMPH # 1.4 103/ul Normal 1.2-3.8 [facility] Comment on above: Performed By: #### B MP #### [facility] [address] [place] [address] Dr. Reji Thomas Lymphocytes/100 WBC (Bld) 22.6 % Normal 20.5-60.0 [facility] Comment on above: Performed By: #### B MP #### [facility] [address] [place] [address] Dr. Reji Thomas MANUAL DIFF REQ NO Normal [facility] Comment on above: Performed By: #### B MP #### [facility] [address] [place] [address] Dr. Reji Thomas MCH (RBC) [Entitic mass] 27.0 pg Normal 26.7-34.0 [facility] Comment on above: Performed By: #### B MP #### [facility] [address] [place] [address] Dr. Reji Thomas MCHC (RBC) [Mass/Vol] 32.4 g/dL Normal 29.9-35.2 [facility] Comment on above: Performed By: #### B MP #### [facility] [address] [place] [address] Dr. Reji Thomas MCV (RBC) [Entitic vol] 83.2 fL Normal 81.0-99.0 [facility] Comment on above: Performed By: #### B MP #### [facility] [address] [place] [address] Dr. Reji Thomas MONO # 0.5 103/ul Normal 0.3-0.8 [facility] Comment on above: Performed By: #### B MP #### [facility] [address] [place] [address] Dr. Reji Thomas Monocytes/100 WBC (Bld) 8.5 % Normal 1.7-12.0 [facility] Comment on above: Performed By: #### B MP #### [facility] [address] [place] [address] Dr. Reji Thomas NEUT # 4.0 103/ul Normal 1.4-6.5 [facility] Comment on above: Performed By: #### B MP #### [facility] [address] [place] [address] Dr. Reji Thomas Neutrophils/100 WBC (Bld) 64.3 % Normal 43.0-75.0 [facility] Comment on above: Performed By: #### B MP #### [facility] [address] [address] [address] Reji Thomas Platelet mean volume (Bld) [Entitic vol] 8.9 fL Critically low 9.5-13.5 [facility] Comment on above: Performed By: #### B MP #### [facility] [address] [address] [address] Reji Thomas PLT 226 103/ul Normal 150-450 [facility] Comment on above: Performed By: #### B MP #### [facility] [address] [address] [address] Reji Thomas RBC 4.23 106/ul Normal 4.20-5.40 [facility] Comment on above: Performed By: #### B MP #### [facility] [address] [address] [address] Reji Thomas WBC 6.3 103/ul Normal 4.0-11.0 [facility] Comment on above: Performed By: #### B MP #### [facility] [address] [address] [address] Reji Thomas FREE THYROXINE INDEX T7on FTI 2.40 Normal 1.30-4.50 [facility] Comment on above: Performed By: #### B PLATER PRODUCTION, CMP, TSH, LIPID #### [facility] [address] [address] [address] Reji Thomas T3U 32.0 % Normal 30.0-39.0 [facility] Comment on above: Performed By: #### B PLATER PRODUCTION, CMP, TSH, LIPID #### [facility] [address] [address] [address] Reji Thomas T4 [Mass/Vol] 7.50 ug/dL Normal 4.80-13.90 [facility] Comment on above: Performed By: #### B PLATER PRODUCTION, CMP, TSH, LIPID #### [facility] [address] [place] [address] Dr. Reji Thomas GLYCOHEMOGLOBIN A1Con 2022 ADA RECOMMENDATION SEE BELOW Normal [facility] Comment on above: Result Comment: ADA RECOMMENDED LIMIT 4.0 - 6.0 ADA THERAPEUTIC TARGET < 7.0 ACTION SUGGESTED > 7.0 Performed By: #### B PLATER PRODUCTION, CMP, TSH, LIPID #### [facility] [address] [address] [address] Reji Thomas Glucose [Mass/Vol] 97 mg/dL Normal [facility] Comment on above: Performed By: #### B PLATER PRODUCTION, CMP, TSH, LIPID #### [facility] [address] [address] [address] Reji Thomas HbA1c (Bld) [Mass fraction] 5.0 % Normal 4.5-6.2 [facility] Comment on above: Performed By: #### B PLATER PRODUCTION, CMP, TSH, LIPID #### [facility] [address] [place] [address] Dr. Reji Thomas IRONon 03-22-2023 Iron [Mass/Vol] 47.0 ug/dL Critically low 50.0-170.0 [place] Comment on above: Performed By: #### B PLATER PRODUCTION, CMP, TSH, LIPID #### [facility] [address] [place] [address] Dr. Reji Thomas LIPID PROFILEon 03-22-2023 CHOL-HDL RATIO NORM SEE BELOW Normal [facility] Comment on above: Result Comment: 3.3 - 4.4 LOW RISK 4.4 - 7.1 AVERAGE RISK 7.1 - 11.0 MODERATE RISK >11.0 HIGH RISK Performed By: #### M G, TSH, LIPID, T7, CMP, BNP #### [facility] [address] [place] [address] Dr. Reji Thomas Cholesterol [Mass/Vol] 188 mg/dL Normal <=200 [facility] Comment on above: Performed By: #### M G, TSH, LIPID, T7, CMP, BNP #### [facility] [address] [place] [address] Dr. Reji Thomas Cholesterol in HDL [Mass/Vol] 53 mg/dL Normal 40-60 [facility] Comment on above: Performed By: #### M G, TSH, LIPID, T7, CMP, BNP #### [facility] [address] [address] [address] Reji Thomas Cholesterol in LDL [Mass/Vol] 111.6 mg/dL Normal [facility] Comment on above: Performed By: #### M G, TSH, LIPID, T7, CMP, BNP #### [facility] [address] [address] [address] Reji Thomas Cholesterol.total/Ch olesterol in HDL [Mass ratio] 3.5 {ratio} Normal [facility] Comment on above: Performed By: #### M G, TSH, LIPID, T7, CMP, BNP #### [facility] [address] [address] [address] Reji Thomas HDL NORMAL > or = 60 mg/dl - LOW CARDIOVASCULAR RISK <40 mg/dl - HIGH CARDIOVASCULAR RISK Normal [facility] Comment on above: Performed By: #### M G, TSH, LIPID, T7, CMP, BNP #### [facility] [address] [address] [address] Reji Thomas LDL CALC NORMAL SEE BELOW Normal [facility] Comment on above: Result Comment: <100 mg/dl OPTIMAL 100 - 129 mg/dl NEAR OR ABOVE OPTIMAL 130 - 159 mg/dl BORDERLINE HIGH 160 - 189 mg/dl HIGH >190 mg/dl VERY HIGH Performed By: #### M G, TSH, LIPID, T7, CMP, BNP #### [facility] [address] [address] [address] Reji Thomas Triglyceride [Mass/Vol] 117 mg/dL Normal <=150 [facility] Comment on above: Performed By: #### M G, TSH, LIPID, T7, CMP, BNP #### [facility] [address] [address] [address] Reji Thomas VLDL CALC 23.4 mg/dL Normal [facility] Comment on above: Performed By: #### M G, TSH, LIPID, T7, CMP, BNP #### [facility] [address] [address] [address] Reji Thomas MAGNESIUMon 03-22-2023 Magnesium [Mass/Vol] 2.4 mg/dL Normal 1.8-2.4 [facility] Comment on above: Performed By: #### B PLATER PRODUCTION, CMP, TSH, LIPID #### [facility] [address] [place] [address] Dr. Reji Thomas PROF 14(COMP METB)on 023 Albumin [Mass/Vol] 3.4 g/dL Normal 3.4-5.0 [facility] Comment on above: Performed By: #### M G, TSH, LIPID, T7, CMP, BNP #### [facility] [address] [place] [address] Dr. Reji Thomas Albumin/Globulin [Mass ratio] 0.8 {ratio} Normal [facility] Comment on above: Performed By: #### M G, TSH, LIPID, T7, CMP, BNP #### [facility] [address] [place] [address] Dr. Reji Thomas ALP [Catalytic activity/Vol] 61 U/L Normal 46-116 [facility] Comment on above: Performed By: #### M G, TSH, LIPID, T7, CMP, BNP #### [facility] [address] [place] [address] Dr. Reji Thomas ALT [Catalytic activity/Vol] 15 U/L Normal 14-59 [facility] Comment on above: Performed By: #### M G, TSH, LIPID, T7, CMP, BNP #### [facility] [address] [place] [address] Dr. Reji Thomas Anion gap [Moles/Vol] 13.1 mmol/L Normal [facility] Comment on above: Performed By: #### M G, TSH, LIPID, T7, CMP, BNP #### [facility] [address] [place] [address] Dr. Reji Thomas AST [Catalytic activity/Vol] 13 U/L Critically low 15-37 [facility] Comment on above: Performed By: #### M G, TSH, LIPID, T7, CMP, BNP #### [facility] [address] [place] [address] Dr. Reji Thomas Bilirubin [Mass/Vol] 0.4 mg/dL Normal 0.2-1.0 [facility] Comment on above: Performed By: #### M G, TSH, LIPID, T7, CMP, BNP #### [facility] [address] [address] [address] Reji Thomas Calcium [Mass/Vol] 8.5 mg/dL Normal 8.5-10.1 [facility] Comment on above: Performed By: #### M G, TSH, LIPID, T7, CMP, BNP #### [facility] [address] [address] [address] Reji Thomas Chloride [Moles/Vol] 106 mmol/L Normal 98-107 [facility] Comment on above: Performed By: #### M G, TSH, LIPID, T7, CMP, BNP #### [facility] [address] [address] [address] Reji Thomas CO2 [Moles/Vol] 27.6 mmol/L Normal 21.0-32.0 [facility] Comment on above: Performed By: #### M G, TSH, LIPID, T7, CMP, BNP #### [facility] [address] [address] [address] Reji Thomas Creatinine [Mass/Vol] 2.32 mg/dL Critically high 0.55-1.02 [facility] Comment on above: Performed By: #### M G, TSH, LIPID, T7, CMP, BNP #### [facility] [address] [place] [address] Dr. Reji Thomas EGFR-AF MAURITANIAN 24 mL/min/1.73m2 Critically low >=60 [facility] Comment on above: Performed By: #### M G, TSH, LIPID, T7, CMP, BNP #### [facility] [address] [address] [address] Reji Thomas EGFR-NON AF MAURITANIAN 20 mL/min/1.73m2 Critically low >=60 [facility] Comment on above: Performed By: #### M G, TSH, LIPID, T7, CMP, BNP #### [facility] [address] [address] [address] Reji Thomas Globulin (S) [Mass/Vol] 4.3 g/dL Normal [facility] Comment on above: Performed By: #### M G, TSH, LIPID, T7, CMP, BNP #### [facility] [address] [address] [address] Reji Thomas Glucose [Mass/Vol] 88 mg/dL Normal 74-106 [facility] Comment on above: Performed By: #### M G, TSH, LIPID, T7, CMP, BNP #### [facility] [address] [address] [address] Reji Thomas Potassium [Moles/Vol] 4.7 mmol/L Normal 3.5-5.1 [facility] Comment on above: Performed By: #### M G, TSH, LIPID, T7, CMP, BNP #### [facility] [address] [place] [address] Dr. Reji Thomas Protein [Mass/Vol] 7.7 g/dL Normal 6.4-8.2 [facility] Comment on above: Performed By: #### M G, TSH, LIPID, T7, CMP, BNP #### [facility] [address] [address] [address] Reji Thomas Sodium [Moles/Vol] 142 mmol/L Normal 136-145 [facility] Comment on above: Performed By: #### M G, TSH, LIPID, T7, CMP, BNP #### [facility] [address] [place] [address] Dr. Reji Thomas Urea nitrogen [Mass/Vol] 38.0 mg/dL Critically high 7.0-18.0 [facility] Comment on above: Performed By: #### M G, TSH, LIPID, T7, CMP, BNP #### [facility] [address] [place] [address] Dr. Reji Thomas Urea nitrogen/Creatinine [Mass ratio] 16.4 mg/mg Normal [facility] Comment on above: Performed By: #### M G, TSH, LIPID, T7, CMP, BNP #### [facility] [address] [address] [address] Reji Thomas PROTIMEon 03-22-2023 INR Coag (PPP) [Relative time] 1.98 {INR} Normal [facility] Comment on above: Performed By: #### P T #### [facility] [address] [place] [address] Dr. Reji Thomas INR GUIDELINES SEE BELOW Normal [facility] Comment on above: Result Comment: SHY RED INR: 2.0 - 3.0 CONDITIONS NOT LISTED BELOW 2.5 - 3.5 FOR PROSTHETIC HEART VALVE REPLACEMENT 2.5 - 3.5 RECURRENT THROMBOSIS Performed By: #### P T #### [facility] [address] [place] [address] Dr. Reji Thomas PT Coag (PPP) [Time] 20.2 s Critically high 9.0-11.6 [facility] Comment on above: Performed By: #### P T #### [facility] [address] [place] [address] Dr. Reji Thomas TSHon 03-22-2023 TSH 2.265 uIU/mL Normal 0.358-3.740 [facility] Comment on above: Performed By: #### B PLATER PRODUCTION, CMP, TSH, LIPID #### [facility] [address] [place] [address] Dr. Reji Thomas VITAMIN D 25 OHon 03-22-2023 VIT D 25-OH 53.1 ng/mL Normal [facility] Comment on above: Performed By: #### B MP #### [facility] [address] [place] [address] Dr. Reji Thomas VIT D RANGES SEE BELOW Normal [facility] Comment on above: Result Comment: <20 ng/mL Vit D deficient 20 - <30 ng/mL Vit D insufficient 30 - 100 ng/mL Vit D sufficient >100 ng/mL Potential Toxicity Performed By: #### B MP #### [facility] [address] [place] [address] Dr. Reji Thomas PROTIMEon 02-22-2023 INR Coag (PPP) [Relative time] 2.22 {INR} Normal [facility] Comment on above: Performed By: #### B PLATER PRODUCTION, CMP, TSH, LIPID #### [facility] [address] [place] [address] Dr. Reji Thomas INR GUIDELINES SEE BELOW Normal [facility] Comment on above: Result Comment: SHY RED INR: 2.0 - 3.0 CONDITIONS NOT LISTED BELOW 2.5 - 3.5 FOR PROSTHETIC HEART VALVE REPLACEMENT 2.5 - 3.5 RECURRENT THROMBOSIS Performed By: #### B PLATER PRODUCTION, CMP, TSH, LIPID #### [facility] [address] [place] [address] Dr. Reji Thomas PT Coag (PPP) [Time] 22.5 s Critically high 9.0-11.6 [facility] Comment on above: Performed By: #### B PLATER PRODUCTION, CMP, TSH, LIPID #### [facility] [address] [place] [address] Dr. Reji Thomas PROTIMEon 01-03-2023 INR Coag (PPP) [Relative time] 2.53 {INR} Normal [facility] Comment on above: Performed By: #### B MP #### [facility] [address] [place] [address] Dr. Reji Thomas INR GUIDELINES SEE BELOW Normal [facility] Comment on above: Result Comment: SHY RED INR: 2.0 - 3.0 CONDITIONS NOT LISTED BELOW 2.5 - 3.5 FOR PROSTHETIC HEART VALVE REPLACEMENT 2.5 - 3.5 RECURRENT THROMBOSIS Performed By: #### B MP #### [facility] [address] [place] [address] Dr. Reji Thomas PT Coag (PPP) [Time] 25.4 s Critically high 9.0-11.6 [facility] Comment on above: Performed By: #### B MP #### [facility] [address] [place] [address] Dr. Reji Thomas PROTIMEon 11-23-2022 INR Coag (PPP) [Relative time] 1.71 {INR} Normal [facility] Comment on above: Performed By: #### B PLATER PRODUCTION, CMP, TSH, LIPID #### [facility] [address] [place] [address] Dr. Reji Thomas INR GUIDELINES SEE BELOW Normal [facility] Comment on above: Result Comment: SHY RED INR: 2.0 - 3.0 CONDITIONS NOT LISTED BELOW 2.5 - 3.5 FOR PROSTHETIC HEART VALVE REPLACEMENT 2.5 - 3.5 RECURRENT THROMBOSIS Performed By: #### B PLATER PRODUCTION, CMP, TSH, LIPID #### [facility] [address] [place] [address] Dr. Reji Thomas PT Coag (PPP) [Time] 17.6 s Critically high 9.0-11.6 [facility] Comment on above: Performed By: #### B PLATER PRODUCTION, CMP, TSH, LIPID #### [facility] [address] [place] [address] Dr. Reji Thomas PROTIMEon 10-10-2022 INR Coag (PPP) [Relative time] 2.52 {INR} Normal [facility] Comment on above: Performed By: #### B PLATER PRODUCTION, CMP, TSH, LIPID #### [facility] [address] [place] [address] Dr. Reji Thomas INR GUIDELINES SEE BELOW Normal [facility] Comment on above: Result Comment: SHY RED INR: 2.0 - 3.0 CONDITIONS NOT LISTED BELOW 2.5 - 3.5 FOR PROSTHETIC HEART VALVE REPLACEMENT 2.5 - 3.5 RECURRENT THROMBOSIS Performed By: #### B PLATER PRODUCTION, CMP, TSH, LIPID #### [facility] [address] [place] [address] Dr. Reji Thomas PT Coag (PPP) [Time] 25.6 s Critically high 9.0-11.6 [facility] Comment on above: Performed By: #### B PLATER PRODUCTION, CMP, TSH, LIPID #### [facility] [address] [place] [address] Dr. Reji Thomas PROTIMEon 09-05-2022 INR Coag (PPP) [Relative time] 2.03 {INR} Normal [facility] Comment on above: Performed By: #### B PLATER PRODUCTION, CMP, TSH, LIPID #### [facility] [address] [place] [address] Dr. Reji Thomas INR GUIDELINES SEE BELOW Normal [facility] Comment on above: Result Comment: SHY RED INR: 2.0 - 3.0 CONDITIONS NOT LISTED BELOW 2.5 - 3.5 FOR PROSTHETIC HEART VALVE REPLACEMENT 2.5 - 3.5 RECURRENT THROMBOSIS Performed By: #### B PLATER PRODUCTION, CMP, TSH, LIPID #### [facility] [address] [place] [address] Dr. Reji Thomas PT Coag (PPP) [Time] 20.9 s Critically high 9.0-11.6 [facility] Comment on above: Performed By: #### B PLATER PRODUCTION, CMP, TSH, LIPID #### [facility] [address] [place] [address] Dr. Reji Thomas BNPon 08-10-2022 Natriuretic peptide B (Bld) [Mass/Vol] 1162.0 pg/mL Normal <=1,800.0 [facility] Comment on above: Performed By: #### B MP, BNP #### [facility] [address] [place] [address] Dr. Reji Thomas PROF CHEM 8 (BAS METB)on Anion gap [Moles/Vol] 11.3 mmol/L Normal [facility] Comment on above: Performed By: #### B MP, BNP #### [facility] [address] [place] [address] Dr. Reji Thomas Calcium [Mass/Vol] 8.9 mg/dL Normal 8.5-10.1 [facility] Comment on above: Performed By: #### B MP, BNP #### [facility] [address] [place] [address] Dr. Reji Thomas Chloride [Moles/Vol] 103 mmol/L Normal 98-107 [facility] Comment on above: Performed By: #### B MP, BNP #### [facility] [address] [place] [address] Dr. Reji Thomas CO2 [Moles/Vol] 28.2 mmol/L Normal 21.0-32.0 [facility] Comment on above: Performed By: #### B MP, BNP #### [facility] Laboratory [address] [place] [address] Dr. Reji Thomas Creatinine [Mass/Vol] 2.07 mg/dL Critically high 0.55-1.02 [facility] Comment on above: Performed By: #### B MP, BNP #### [facility] [address] [address] [address] Reji Thomas EGFR-AF MAURITANIAN 28 mL/min/1.73m2 Critically low >=60 [facility] Comment on above: Performed By: #### B MP, BNP #### [facility] [address] [address] [address] Reji Thomas EGFR-NON AF MAURITANIAN 23 mL/min/1.73m2 Critically low >=60 [facility] Comment on above: Performed By: #### B MP, BNP #### [facility] [address] [address] [address] Reji Thomas Glucose [Mass/Vol] 88 mg/dL Normal 74-106 [facility] Comment on above: Performed By: #### B MP, BNP #### [facility] [address] [address] [address] Reji Thomas Potassium [Moles/Vol] 4.5 mmol/L Normal 3.5-5.1 [facility] Comment on above: Performed By: #### B MP, BNP #### [facility] [address] [address] [address] Reji Thomas Sodium [Moles/Vol] 138 mmol/L Normal 136-145 [facility] Comment on above: Performed By: #### B MP, BNP #### [facility] [address] [address] [address] Reji Thomas Urea nitrogen [Mass/Vol] 35.0 mg/dL Critically high 7.0-18.0 [facility] Comment on above: Performed By: #### B MP, BNP #### [facility] [address] [address] [address] Reji Thomas Urea nitrogen/Creatinine [Mass ratio] 16.9 mg/mg Normal [facility] Comment on above: Performed By: #### B MP, BNP #### [facility] [address] [address] [address] Reji Thomas PROTIMEon 08-09-2022 INR Coag (PPP) [Relative time] 2.04 {INR} Normal [facility] Comment on above: Performed By: #### B PLATER PRODUCTION, CMP, TSH, LIPID #### [facility] [address] [place] [address] Dr. Reji Thomas INR GUIDELINES SEE BELOW Normal [facility] Comment on above: Result Comment: SHY RED INR: 2.0 - 3.0 CONDITIONS NOT LISTED BELOW 2.5 - 3.5 FOR PROSTHETIC HEART VALVE REPLACEMENT 2.5 - 3.5 RECURRENT THROMBOSIS Performed By: #### B PLATER PRODUCTION, CMP, TSH, LIPID #### [facility] [address] [place] [address] Dr. Reji Thomas PT Coag (PPP) [Time] 21.0 s Critically high 9.0-11.6 [facility] Comment on above: Performed By: #### B PLATER PRODUCTION, CMP, TSH, LIPID #### [facility] [address] [place] [address] Dr. Reji Thomas BNPon 07-09-2022 Natriuretic peptide B (Bld) [Mass/Vol] 2085.0 pg/mL Critically high <=1,800.0 [facility] Comment on above: Result Comment: CRIT ICAL CALLED TO OFFICE ON 07-10-22 AT 0850 BY AR Performed By: #### B PLATER PRODUCTION, CMP, TSH, LIPID #### [facility] [address] [place] [address] Dr. Reji Thomas PROF CHEM 8 (BAS METB)on Anion gap [Moles/Vol] 13.7 mmol/L Normal [facility] Comment on above: Performed By: #### B PLATER PRODUCTION, CMP, TSH, LIPID #### [facility] [address] [place] [address] Dr. Reji Thomas Calcium [Mass/Vol] 8.3 mg/dL Critically low 8.5-10.1 [facility] Comment on above: Performed By: #### B PLATER PRODUCTION, CMP, TSH, LIPID #### [facility] [address] [place] [address] Dr. Reji Thomas Chloride [Moles/Vol] 104 mmol/L Normal 98-107 [facility] Comment on above: Performed By: #### B PLATER PRODUCTION, CMP, TSH, LIPID #### [facility] [address] [address] [address] Reji Thomas CO2 [Moles/Vol] 26.6 mmol/L Normal 21.0-32.0 [facility] Comment on above: Performed By: #### B PLATER PRODUCTION, CMP, TSH, LIPID #### [facility] [address] [address] [address] Reji Thomas Creatinine [Mass/Vol] 1.98 mg/dL Critically high 0.55-1.02 [facility] Comment on above: Performed By: #### B PLATER PRODUCTION, CMP, TSH, LIPID #### [facility] [address] [place] [address] Dr. Reji Thomas EGFR-AF MAURITANIAN 29 mL/min/1.73m2 Critically low >=60 [facility] Comment on above: Performed By: #### B PLATER PRODUCTION, CMP, TSH, LIPID #### [facility] [address] [place] [address] Dr. Reji Thomas EGFR-NON AF MAURITANIAN 24 mL/min/1.73m2 Critically low >=60 [facility] Comment on above: Performed By: #### B PLATER PRODUCTION, CMP, TSH, LIPID #### [facility] [address] [place] [address] Dr. Reji Thomas Glucose [Mass/Vol] 116 mg/dL Critically high 74-106 [facility] Comment on above: Performed By: #### B PLATER PRODUCTION, CMP, TSH, LIPID #### [facility] [address] [place] [address] Dr. Reji Thomas Potassium [Moles/Vol] 4.3 mmol/L Normal 3.5-5.1 [facility] Comment on above: Performed By: #### B PLATER PRODUCTION, CMP, TSH, LIPID #### [facility] [address] [place] [address] Dr. Reji Thomas Sodium [Moles/Vol] 140 mmol/L Normal 136-145 [facility] Comment on above: Performed By: #### B PLATER PRODUCTION, CMP, TSH, LIPID #### [facility] [address] [place] [address] Dr. Reji Thomas Urea nitrogen [Mass/Vol] 35.0 mg/dL Critically high 7.0-18.0 [facility] Comment on above: Performed By: #### B PLATER PRODUCTION, CMP, TSH, LIPID #### [facility] [address] [place] [address] Dr. Reji Thomas Urea nitrogen/Creatinine [Mass ratio] 17.7 mg/mg Normal [facility] Comment on above: Performed By: #### B PLATER PRODUCTION, CMP, TSH, LIPID #### [facility] [address] [place] [address] Dr. Reji Thomas PROTIMEon 07-09-2022 INR Coag (PPP) [Relative time] 2.99 {INR} Normal [facility] Comment on above: Performed By: #### B PLATER PRODUCTION, CMP, TSH, LIPID #### [facility] [address] [place] [address] Dr. Reji Thomas INR GUIDELINES SEE BELOW Normal [facility] Comment on above: Result Comment: SHY RED INR: 2.0 - 3.0 CONDITIONS NOT LISTED BELOW 2.5 - 3.5 FOR PROSTHETIC HEART VALVE REPLACEMENT 2.5 - 3.5 RECURRENT THROMBOSIS Performed By: #### B PLATER PRODUCTION, CMP, TSH, LIPID #### [facility] [address] [place] [address] Dr. Reji Thomas PT Coag (PPP) [Time] 30.1 s Critically high 9.0-11.6 [facility] Comment on above: Performed By: #### B PLATER PRODUCTION, CMP, TSH, LIPID #### [facility] [address] [place] [address] Dr. Reji Thoams US KIDNEYSon 07-06-2022 US KIDNEYS Ultrasound kidneys, [...] by: SIGRID RICHMOND Date: 2022-07-06 13:31 Normal [facility] EVAN Antinuclear Antibodieson 06-19-2022 Antinuclear Abs, IFA Positive Critically abnormal . [facility] Comment on above: Result Comment: Nega tive <1:80 Borderline 1:80 Positive >1:80 Performed By: #### Krista CHOW ADDONUAPLUS #### [facility] [address] [place] [address] #### C3, C4, CH50 #### [facility] , Homogeneous Pattern 1:320 High . [facility] Comment on above: Result Comment: ICAP nomenclature: [id number] Performed By: #### C UJoel, ADDONUAPLUS #### [facility] [address] [place] [address] #### C3, C4, CH50 #### [facility] , Note 1 Normal . [facility] Comment on above: Result Comment: [...] titers Nucleosomes, Histones Drug-induced SLE Speckled Sm, HOT METAL MIXER OPERATOR HELPER, SCL-70, SLE,MCTD,PSS (diffuse form), SS-A/SS-B Sjogrens Nucleolar SCL-70, PM-1/SCL High titers Scleroderma, PM/DM Centromere Centromere PSS (limited form) w/Crest syndrome variable Nuclear Dot [id number] Primary Biliary Cirrhosis Nuclear GP210, Primary Biliary Cirrhosis Membrane eleonora A,B,C Performed at: [address] [id number] Hotel Service Supervisor: Demarcus Lawton PhD, Phone: [phone] Performed By: #### C UU, ADDONUAPLUS #### [address] #### C3, C4, CH50 #### [facility] , Anti-RNPon 06-19-2022 Anti-HOT METAL MIXER OPERATOR HELPER 0.4 Normal 0.0-0.9 [facility] Comment on above: Result Comment: Perf ormed at: [address] [id number] Hotel Service Supervisor: Demarcus Lawton PhD, Phone: [phone] Performed By: #### C UU, ADDONUAPLUS #### [address] #### C3, C4, CH50 #### [facility] , C-Reactive Proteinon 022 C-Reactive Protein 2.0 mg/dL High 0.0-1.0 [facility] Comment on above: Result Comment: PERF ORMED BY: [place] [address] PATHOLOGIST ESTIMATOR PRINTING PLATE MAKING RADHA BULLARD M.D. Performed By: #### C UU, ADDONUAPLUS #### [address] #### C3, C4, CH50 #### [facility] , Complement C3on 06-19-2022 Complement C3 167 mg/dL Normal 82-167 [facility] Comment on above: Result Comment: Perf ormed at: [address] [address] Hotel Service Supervisor: Demarcus Lawton PhD, Phone: [phone] Performed By: #### C UU, ADDONUAPLUS #### [facility] [address] #### C3, C4, CH50 #### [facility] , Complement C4on 06-19-2022 Complement C4 37 mg/dL Normal 12-38 [facility] Comment on above: Performed By: #### C UU, ADDONUAPLUS #### [address] #### C3, C4, CH50 #### [facility] , Complement Total (CH50)on Complement Total (CH50) >60 Normal >41 [facility] Comment on above: Result Comment: [...] of range values. Performed at: - [facility] [address] [id number] Hotel Service Supervisor: Demarcus Lawton PhD, Phone: [phone] PERFORMED BY: [place] [address] PATHOLOGIST ESTIMATOR PRINTING PLATE MAKING RADHA BULLARD M.D. Performed By: #### C UU, ADDONUAPLUS #### [address] #### C3, C4, CH50 #### [facility] , Complete Blood Count Auto Di ffon 06-19-2022 Basophils (Bld) [#/Vol] 0.1 10*3/uL Normal 0.0-0.2 [facility] Comment on above: Performed By: #### H EPATIC, CBC, ESR, CRP, CREAT, CK #### [address] #### RNA POLYMR, ANTI TH TO, EVAN, U3 HOT METAL MIXER OPERATOR HELPER, ANTIR, PM-SCL ABS #### [facility] , Basophils/100 WBC (Bld) 0.9 % Normal . [facility] Comment on above: Performed By: #### H EPATIC, CBC, ESR, CRP, CREAT, CK #### [address] #### RNA POLYMR, ANTI TH TO, EVAN, U3 HOT METAL MIXER OPERATOR HELPER, ANTIR, PM-SCL ABS #### [facility] , Eosinophils (Bld) [#/Vol] 0.5 10*3/uL High 0.0-0.45 [facility] Comment on above: Performed By: #### H EPATIC, CBC, ESR, CRP, CREAT, CK #### [address] #### RNA POLYMR, ANTI TH TO, EVAN, U3 HOT METAL MIXER OPERATOR HELPER, ANTIR, PM-SCL ABS #### [facility] , Eosinophils/100 WBC (Bld) 8.6 % Normal . [facility] Comment on above: Performed By: #### H EPATIC, CBC, ESR, CRP, CREAT, CK #### [place] [address] [place] #### RNA POLYMR, ANTI TH TO, EVAN, U3 HOT METAL MIXER OPERATOR HELPER, ANTIR, PM-SCL ABS #### [facility] , Erythrocyte distribution width (RBC) [Ratio] 19.6 % High 11.9-15.3 [facility] Comment on above: Performed By: #### H EPATIC, CBC, ESR, CRP, CREAT, CK #### [place] [address] [place] #### RNA POLYMR, ANTI TH TO, EVAN, U3 HOT METAL MIXER OPERATOR HELPER, ANTIR, PM-SCL ABS #### [facility] , Hematocrit (Bld) [Volume fraction] 33.8 % Low 34.0-46.4 [facility] Comment on above: Performed By: #### H EPATIC, CBC, ESR, CRP, CREAT, CK #### [place] [address] [place] #### RNA POLYMR, ANTI TH TO, EVAN, U3 HOT METAL MIXER OPERATOR HELPER, ANTIR, PM-SCL ABS #### [facility] , Hemoglobin (Bld) [Mass/Vol] 10.9 g/dL Low 11.8-15.4 [facility] Comment on above: Performed By: #### H EPATIC, CBC, ESR, CRP, CREAT, CK #### [place] [address] [place] #### RNA POLYMR, ANTI TH TO, EVAN, U3 HOT METAL MIXER OPERATOR HELPER, ANTIR, PM-SCL ABS #### [facility] , Lymphocytes (Bld) [#/Vol] 1.1 10*3/uL Normal 1.00-4.8 [facility] Comment on above: Performed By: #### H EPATIC, CBC, ESR, CRP, CREAT, CK #### [place] [address] [place] #### RNA POLYMR, ANTI TH TO, EVAN, U3 HOT METAL MIXER OPERATOR HELPER, ANTIR, PM-SCL ABS #### [facility] , Lymphocytes/100 WBC (Bld) 17.8 % Normal . [facility] Comment on above: Performed By: #### H EPATIC, CBC, ESR, CRP, CREAT, CK #### [place] [address] [place] #### RNA POLYMR, ANTI TH TO, EVAN, U3 HOT METAL MIXER OPERATOR HELPER, ANTIR, PM-SCL ABS #### [facility] , MCH (RBC) [Entitic mass] 26.4 pg Normal 24.7-34.3 [facility] Comment on above: Performed By: #### H EPATIC, CBC, ESR, CRP, CREAT, CK #### [place] [address] [place] #### RNA POLYMR, ANTI TH TO, EVAN, U3 HOT METAL MIXER OPERATOR HELPER, ANTIR, PM-SCL ABS #### [facility] , MCV (RBC) [Entitic vol] 81.8 fL Normal 80-100 [facility] Comment on above: Performed By: #### H EPATIC, CBC, ESR, CRP, CREAT, CK #### [address] #### RNA POLYMR, ANTI TH TO, EVAN, U3 HOT METAL MIXER OPERATOR HELPER, ANTIR, PM-SCL ABS #### [facility] , Mean Corpuscular HGB Conc 32.3 g/dL Normal 32.0-35.0 [facility] Comment on above: Performed By: #### H EPATIC, CBC, ESR, CRP, CREAT, CK #### [address] #### RNA POLYMR, ANTI TH TO, EVAN, U3 HOT METAL MIXER OPERATOR HELPER, ANTIR, PM-SCL ABS #### [facility] , Monocytes (Bld) [#/Vol] 0.4 10*3/uL Normal 0.0-0.8 [facility] Comment on above: Performed By: #### H EPATIC, CBC, ESR, CRP, CREAT, CK #### [address] #### RNA POLYMR, ANTI TH TO, EVAN, U3 HOT METAL MIXER OPERATOR HELPER, ANTIR, PM-SCL ABS #### [facility] , Monocytes/100 WBC (Bld) 7.4 % Normal . [facility] Comment on above: Performed By: #### H EPATIC, CBC, ESR, CRP, CREAT, CK #### [place] [address] [place] #### RNA POLYMR, ANTI TH TO, EVAN, U3 HOT METAL MIXER OPERATOR HELPER, ANTIR, PM-SCL ABS #### [facility] , Neutrophils (Bld) [#/Vol] 3.9 10*3/uL Normal 1.8-7.7 [facility] Comment on above: Performed By: #### H EPATIC, CBC, ESR, CRP, CREAT, CK #### [place] [address] [place] #### RNA POLYMR, ANTI TH TO, EVAN, U3 HOT METAL MIXER OPERATOR HELPER, ANTIR, PM-SCL ABS #### [facility] , Neutrophils/100 WBC (Bld) 65.3 % Normal . [facility] Comment on above: Performed By: #### H EPATIC, CBC, ESR, CRP, CREAT, CK #### [place] [address] [place] #### RNA POLYMR, ANTI TH TO, EVAN, U3 HOT METAL MIXER OPERATOR HELPER, ANTIR, PM-SCL ABS #### [facility] , Nucleated RBC/100 WBC (Bld) [Ratio] 0.0 % Normal 0-0.5 [facility] Comment on above: Performed By: #### H EPATIC, CBC, ESR, CRP, CREAT, CK #### [place] [address] [place] #### RNA POLYMR, ANTI TH TO, EVAN, U3 HOT METAL MIXER OPERATOR HELPER, ANTIR, PM-SCL ABS #### [facility] , Platelet mean volume (Bld) [Entitic vol] 7.2 fL Normal 6.3-10.7 [facility] Comment on above: Performed By: #### H EPATIC, CBC, ESR, CRP, CREAT, CK #### [place] [address] [place] #### RNA POLYMR, ANTI TH TO, EVAN, U3 HOT METAL MIXER OPERATOR HELPER, ANTIR, PM-SCL ABS #### [facility] , Platelets (Bld) [#/Vol] 237 10*3/uL Normal 150-450 [facility] Comment on above: Performed By: #### H EPATIC, CBC, ESR, CRP, CREAT, CK #### [place] [address] [place] #### RNA POLYMR, ANTI TH TO, EVAN, U3 HOT METAL MIXER OPERATOR HELPER, ANTIR, PM-SCL ABS #### [facility] , RBC (Bld) [#/Vol] 4.14 10*6/uL Normal 3.60-5.00 [facility] Comment on above: Performed By: #### H EPATIC, CBC, ESR, CRP, CREAT, CK #### [address] #### RNA POLYMR, ANTI TH TO, EVAN, U3 HOT METAL MIXER OPERATOR HELPER, ANTIR, PM-SCL ABS #### [facility] , WBC (Bld) [#/Vol] 6.0 10*3/uL Normal 4.5-11.0 [facility] Comment on above: Performed By: #### H EPATIC, CBC, ESR, CRP, CREAT, CK #### [address] #### RNA POLYMR, ANTI TH TO, EVAN, U3 HOT METAL MIXER OPERATOR HELPER, ANTIR, PM-SCL ABS #### [facility] , Creatine Kinaseon 06-19-2022 CK [Catalytic activity/Vol] 38 U/L Normal 22-269 [facility] Comment on above: Result Comment: PERF ORMED BY: [place] [address] PATHOLOGIST ESTIMATOR PRINTING PLATE MAKING RADHA BULLARD M.D. Performed By: #### H EPATIC, CBC, ESR, CRP, CREAT, CK #### [address] #### RNA POLYMR, ANTI TH TO, EVAN, U3 HOT METAL MIXER OPERATOR HELPER, ANTIR, PM-SCL ABS #### [facility] , Creatinineon 06-19-2022 Creatinine [Mass/Vol] 2.82 mg/dL High 0.44-1.03 [facility] Comment on above: Performed By: #### H EPATIC, CBC, ESR, CRP, CREAT, CK #### [place] [address] [place] #### RNA POLYMR, ANTI TH TO, EVAN, U3 HOT METAL MIXER OPERATOR HELPER, ANTIR, PM-SCL ABS #### [facility] , Estimated GFR ( Oralia 19 Normal [facility] Comment on above: Result Comment: GFR estimated reference range: According to KDOQI guidelines, <60 ml/min/1.73m2 is sufficient to diagnose a patient with chronic kidney disease. Performed By: #### H EPATIC, CBC, ESR, CRP, CREAT, CK #### [facility] [address] [place] [address] [place] #### RNA POLYMR, ANTI TH TO, EVAN, U3 HOT METAL MIXER OPERATOR HELPER, ANTIR, PM-SCL ABS #### [facility] , Estimated GFR (Non- Am 16 Normal [facility] Comment on above: Performed By: #### H EPATIC, CBC, ESR, CRP, CREAT, CK #### [address] #### RNA POLYMR, ANTI TH TO, EVAN, U3 HOT METAL MIXER OPERATOR HELPER, ANTIR, PM-SCL ABS #### [facility] , Dipstick and Microscopicon 0 06-19-2022 Appearance (U) Cloudy Critically abnormal Clear [facility] Comment on above: Order Comment: Name Collection Type:: Clean-Voided Midstream Performed By: #### C UU, ADDONUAPLUS #### [address] #### C3, C4, CH50 #### [facility] , Bacteria,Urine 1+ High None Seen [facility] Comment on above: Order Comment: Name Collection Type:: Clean-Voided Midstream Performed By: #### C UU, ADDONUAPLUS #### [place] [address] [place] #### C3, C4, CH50 #### [facility] , Bilirubin,Urine Negative Normal Negative [facility] Comment on above: Order Comment: Name Collection Type:: Clean-Voided Midstream Performed By: #### C UU, ADDONUAPLUS #### [place] [address] [place] #### C3, C4, CH50 #### [facility] , Color (U) Yellow Normal Yellow [facility] Comment on above: Order Comment: Name Collection Type:: Clean-Voided Midstream Performed By: #### C UU, ADDONUAPLUS #### [facility] [address] [place] [address] #### C3, C4, CH50 #### [facility] , Glucose Ql (U) Normal Normal Normal [facility] Comment on above: Order Comment: Name Collection Type:: Clean-Voided Midstream Performed By: #### C UU, ADDONUAPLUS #### [address] #### C3, C4, CH50 #### [facility] , Hyaline Casts,Urine 1-2 Normal 0-8 [facility] Comment on above: Order Comment: Name Collection Type:: Clean-Voided Midstream Result Comment: PERF ORMED BY: [place] [address] PATHOLOGIST ESTIMATOR PRINTING PLATE MAKING RADHA BULLARD M.D. Performed By: #### C UU, ADDONUAPLUS #### [address] #### C3, C4, CH50 #### [facility] , Ketones Ql (U) Negative Normal Negative [facility] Comment on above: Order Comment: Name Collection Type:: Clean-Voided Midstream Performed By: #### C UU, ADDONUAPLUS #### [facility] [address] [place] [address] #### C3, C4, CH50 #### [facility] , Leukocyte esterase Test strip Ql (U) 4+ High Negative [facility] Comment on above: Order Comment: Name Collection Type:: Clean-Voided Midstream Performed By: #### C UU, ADDONUAPLUS #### [address] #### C3, C4, CH50 #### [facility] , Nitrite,Urine Negative Normal Negative [facility] Comment on above: Order Comment: Name Collection Type:: Clean-Voided Midstream Performed By: #### C UU, ADDONUAPLUS #### [address] #### C3, C4, CH50 #### [facility] , Occult Blood,Urine 1+ High Negative [facility] Comment on above: Order Comment: Name Collection Type:: Clean-Voided Midstream Performed By: #### C UU, ADDONUAPLUS #### [address] #### C3, C4, CH50 #### [facility] , pH (U) 6.5 [pH] Normal 5.0-9.0 [facility] Comment on above: Order Comment: Name Collection Type:: Clean-Voided Midstream Performed By: #### C UU, ADDONUAPLUS #### [address] #### C3, C4, CH50 #### [facility] , Protein,Urine Trace High Negative [facility] Comment on above: Order Comment: Name Collection Type:: Clean-Voided Midstream Performed By: #### C UU, ADDONUAPLUS #### [address] #### C3, C4, CH50 #### [facility] , RBC,Urine 1-2 Normal 0-4 [facility] Comment on above: Order Comment: Name Collection Type:: Clean-Voided Midstream Performed By: #### C UU, ADDONUAPLUS #### [address] #### C3, C4, CH50 #### [facility] , Specificy [place],Urine 1.010 Normal 1.001-1.030 [facility] Comment on above: Order Comment: Name Collection Type:: Clean-Voided Midstream Performed By: #### C UU, ADDONUAPLUS #### [address] #### C3, C4, CH50 #### [facility] , Squamous Epithelial Cell,Urine 5-9 High 0-2 [facility] Comment on above: Order Comment: Name Collection Type:: Clean-Voided Midstream Performed By: #### C UU, ADDONUAPLUS #### [address] #### C3, C4, CH50 #### [facility] , Urobilinogen,Urine Normal Normal Normal [facility] Comment on above: Order Comment: Name Collection Type:: Clean-Voided Midstream Performed By: #### C UU, ADDONUAPLUS #### [address] #### C3, C4, CH50 #### [facility] , WBC,Urine Innumerable High 0-4 [facility] Comment on above: Order Comment: Name Collection Type:: Clean-Voided Midstream Performed By: #### C UU, ADDONUAPLUS #### [address] #### C3, C4, CH50 #### [facility] , Erythrocyte Sedimentation Ra pratik 06-19-2022 ESR (Bld) [Velocity] 57 mm/h High 0-29 [facility] Comment on above: Result Comment: PERF ORMED BY: [place] [address] PATHOLOGIST ESTIMATOR PRINTING PLATE MAKING RADHA BULLARD M.D. Performed By: #### H EPATIC, CBC, ESR, CRP, CREAT, CK #### [facility] [address] [place] [address] [place] #### RNA POLYMR, ANTI TH TO, EVAN, U3 HOT METAL MIXER OPERATOR HELPER, ANTIR, PM-SCL ABS #### [facility] , Hepatic Panelon 06-19-2022 Albumin [Mass/Vol] 3.6 g/dL Normal 3.2-5.5 [facility] Comment on above: Performed By: #### H EPATIC, CBC, ESR, CRP, CREAT, CK #### [facility] [address] [place] [address] [place] #### RNA POLYMR, ANTI TH TO, EVAN, U3 HOT METAL MIXER OPERATOR HELPER, ANTIR, PM-SCL ABS #### [facility] , Albumin/Globulin [Mass ratio] 1.0 {ratio} Normal [facility] Comment on above: Performed By: #### H EPATIC, CBC, ESR, CRP, CREAT, CK #### [facility] [address] [place] [address] [place] #### RNA POLYMR, ANTI TH TO, EVAN, U3 HOT METAL MIXER OPERATOR HELPER, ANTIR, PM-SCL ABS #### [facility] , ALP [Catalytic activity/Vol] 68 U/L Normal 32-92 [facility] Comment on above: Performed By: #### H EPATIC, CBC, ESR, CRP, CREAT, CK #### [facility] [address] [place] [address] [place] #### RNA POLYMR, ANTI TH TO, EVAN, U3 HOT METAL MIXER OPERATOR HELPER, ANTIR, PM-SCL ABS #### [facility] , ALT [Catalytic activity/Vol] 9 U/L Low 10-60 [facility] Comment on above: Performed By: #### H EPATIC, CBC, ESR, CRP, CREAT, CK #### [facility] [address] [place] [address] [place] #### RNA POLYMR, ANTI TH TO, EVAN, U3 HOT METAL MIXER OPERATOR HELPER, ANTIR, PM-SCL ABS #### [facility] , AST [Catalytic activity/Vol] 15 U/L Normal 10-42 [facility] Comment on above: Performed By: #### H EPATIC, CBC, ESR, CRP, CREAT, CK #### [place] [address] [place] #### RNA POLYMR, ANTI TH TO, EVAN, U3 HOT METAL MIXER OPERATOR HELPER, ANTIR, PM-SCL ABS #### [facility] , Bilirubin [Mass/Vol] 0.6 mg/dL Normal 0.3-1.2 [facility] Comment on above: Performed By: #### H EPATIC, CBC, ESR, CRP, CREAT, CK #### [address] #### RNA POLYMR, ANTI TH TO, EVAN, U3 HOT METAL MIXER OPERATOR HELPER, ANTIR, PM-SCL ABS #### [facility] , Bilirubin,Indirect 0.4 mg/dL Normal [facility] Comment on above: Performed By: #### H EPATIC, CBC, ESR, CRP, CREAT, CK #### [place] [address] [place] #### RNA POLYMR, ANTI TH TO, EVAN, U3 HOT METAL MIXER OPERATOR HELPER, ANTIR, PM-SCL ABS #### [facility] , Bilirubin.indirect [Mass/Vol] 0.2 mg/dL Normal 0.0-0.4 [facility] Comment on above: Performed By: #### H EPATIC, CBC, ESR, CRP, CREAT, CK #### [facility] [address] [place] [address] [place] #### RNA POLYMR, ANTI TH TO, EVAN, U3 HOT METAL MIXER OPERATOR HELPER, ANTIR, PM-SCL ABS #### [facility] , Globulin (S) [Mass/Vol] 3.5 g/dL Normal [facility] Comment on above: Performed By: #### H EPATIC, CBC, ESR, CRP, CREAT, CK #### [place] [address] [place] #### RNA POLYMR, ANTI TH TO, EVAN, U3 HOT METAL MIXER OPERATOR HELPER, ANTIR, PM-SCL ABS #### [facility] , Protein [Mass/Vol] 7.1 g/dL Normal 6.1-7.9 [facility] Comment on above: Performed By: #### H EPATIC, CBC, ESR, CRP, CREAT, CK #### [facility] [address] [place] [address] #### RNA POLYMR, ANTI TH TO, EVAN, U3 HOT METAL MIXER OPERATOR HELPER, ANTIR, PM-SCL ABS #### [facility] , PM-SCL Antibodieson 06-19-20 22 RAIZA PM-Scl Antibody <20 Normal <20 [facility] Comment on above: Result Comment: This test was developed and its performance characteristics determined by [employer]. It has not been cleared or approved by the Food and Drug Administration. Negative: <20 Weak Positive: 20 - 39 Moderate Positive: 40 - 80 Strong Positive: >80 Performed at: [facility] [address] [place] [address] [id number] Hotel Service Supervisor: Artemio Nair MD, Phone: [phone] Performed By: #### C UU, ADDONUAPLUS #### [address] #### C3, C4, CH50 #### [facility] , RNA Polymerase IIion 022 RNA Polymerase IIi <20 Normal <20 [facility] Comment on above: Result Comment: Nega tive: <20 Weak Positive: 20 - 39 Moderate Positive: 40 - 80 Strong Positive: >80 Performed at: [facility] [address] [place] [address] [id number] Hotel Service Supervisor: Artemio Nair MD, Phone: [phone] PERFORMED BY: [place] [address] PATHOLOGIST ESTIMATOR PRINTING PLATE MAKING RADHA BULLARD M.D. Performed By: #### C UU, ADDONUAPLUS #### [address] #### C3, C4, CH50 #### [facility] , Th/To Antibodyon 06-19-2022 Th/To Antibody Negative Normal Negative [facility] Comment on above: Result Comment: This test was developed and its performance characteristics determined by [facility]. It has not been cleared or approved by the Food and Drug Administration. Performed at: [facility] [address] [place] [address] [id number] Hotel Service Supervisor: Artemio Nair MD, Phone: [phone] Performed By: #### C UU, ADDONUAPLUS #### [address] #### C3, C4, CH50 #### [facility] , U3 Rnpon 06-19-2022 U3 Transportation Planner Negative Normal Negative [facility] Comment on above: Result Comment: This test was developed and its performance characteristics determined by [facility]. It has not been cleared or approved by the Food and Drug Administration. Performed at: [facility] [address] [place] [address] [id number] Hotel Service Supervisor: Artemio Nair MD, Phone: [phone] PERFORMED BY: [place] [address] PATHOLOGIST ESTIMATOR PRINTING PLATE MAKING RADHA BULLARD M.D. Performed By: #### C UU, ADDONUAPLUS #### [address] #### C3, C4, CH50 #### [facility] , Urine Cultureon 06-19-2022 Bacteria identified Cx Nom (U) No Growth 2 Days PERFORMED BY: [place] [address] PATHOLOGIST ESTIMATOR PRINTING PLATE MAKING RADHA BULLARD M.D. Normal [facility] Comment on above: Performed By: #### C UU, ADDONUAPLUS #### [address] #### C3, C4, CH50 #### [facility] , PROF CHEM 8 (BAS METB)on Anion gap [Moles/Vol] 12.5 mmol/L Normal [facility] Comment on above: Performed By: #### B MP #### [facility] [address] [address] [address] Reji Thomas Calcium [Mass/Vol] 8.9 mg/dL Normal 8.5-10.1 [facility] Comment on above: Performed By: #### B MP #### [facility] [address] [address] [address] Rjei Thomas Chloride [Moles/Vol] 103 mmol/L Normal 98-107 [facility] Comment on above: Performed By: #### B MP #### [facility] [address] [address] [address] Reji Thomas CO2 [Moles/Vol] 26.1 mmol/L Normal 21.0-32.0 [facility] Comment on above: Performed By: #### B MP #### [facility] [address] [address] [address] Reji Thomas Creatinine [Mass/Vol] 2.09 mg/dL Critically high 0.55-1.02 [facility] Comment on above: Performed By: #### B MP #### [facility] [address] [address] [address] Reji Thomas EGFR-AF MAURITANIAN 27 mL/min/1.73m2 Critically low >=60 [facility] Comment on above: Performed By: #### B MP #### [facility] [address] [address] [address] Reji Thomas EGFR-NON AF MAURITANIAN 23 mL/min/1.73m2 Critically low >=60 [facility] Comment on above: Performed By: #### B MP #### [facility] [address] [address] [address] Reji Thomas Glucose [Mass/Vol] 96 mg/dL Normal 74-106 [facility] Comment on above: Performed By: #### B MP #### [facility] [address] [address] [address] Reji Thomas Potassium [Moles/Vol] 4.6 mmol/L Normal 3.5-5.1 [facility] Comment on above: Performed By: #### B MP #### [facility] [address] [place] [address] Dr. Reji Thomas Sodium [Moles/Vol] 137 mmol/L Normal 136-145 [facility] Comment on above: Performed By: #### B MP #### [facility] [address] [address] [address] Reji Thomas Urea nitrogen [Mass/Vol] 38.0 mg/dL Critically high 7.0-18.0 [facility] Comment on above: Performed By: #### B MP #### [facility] [address] [place] [address] Dr. Reji Thomas Urea nitrogen/Creatinine [Mass ratio] 18.2 mg/mg Normal [facility] Comment on above: Performed By: #### B MP #### [facility] [address] [place] [address] Dr. Reji Thomas PROTIMEon 06-04-2022 INR Coag (PPP) [Relative time] 2.51 {INR} Normal [facility] Comment on above: Performed By: #### B PLATER PRODUCTION, CMP, TSH, LIPID #### [facility] [address] [place] [address] Dr. Reji Thomas INR GUIDELINES SEE BELOW Normal [facility] Comment on above: Result Comment: SHY RED INR: 2.0 - 3.0 CONDITIONS NOT LISTED BELOW 2.5 - 3.5 FOR PROSTHETIC HEART VALVE REPLACEMENT 2.5 - 3.5 RECURRENT THROMBOSIS Performed By: #### B PLATER PRODUCTION, CMP, TSH, LIPID #### [facility] [address] [place] [address] Dr. Reji Thomas PT Coag (PPP) [Time] 25.5 s Critically high 9.0-11.6 [facility] Comment on above: Performed By: #### B PLATER PRODUCTION, CMP, TSH, LIPID #### [facility] [address] [place] [address] Dr. Reji Thomas BNPon 05-15-2022 Natriuretic peptide B (Bld) [Mass/Vol] 3661.0 pg/mL Critically high <=1,800.0 [facility] Comment on above: Performed By: #### B PLATER PRODUCTION, CMP, TSH, LIPID #### [facility] [address] [place] [address] Dr. Reji Thomas CBC AUTO DIFFon 05-15-2022 BASO # 0.1 103/ul Normal 0.0-0.1 [facility] Comment on above: Performed By: #### B MP #### [facility] [address] [address] [address] Reji Thomas Basophils/100 WBC (Bld) 1.1 % Normal 0.2-2.0 [facility] Comment on above: Performed By: #### B MP #### [facility] [address] [place] [address] Dr. Reji Thomas EO # 0.5 103/ul Normal 0.0-0.7 [facility] Comment on above: Performed By: #### B MP #### [facility] [address] [place] [address] Dr. Reji Thomas Eosinophils/100 WBC (Bld) 6.5 % Normal 0.9-7.0 [facility] Comment on above: Performed By: #### B MP #### [facility] [address] [place] [address] Dr. Reji Thomas Erythrocyte distribution width (RBC) [Ratio] 16.1 % Critically high 11.0-15.0 [facility] Comment on above: Performed By: #### B MP #### [facility] [address] [place] [address] Dr. Reji Thomas Hematocrit (Bld) [Volume fraction] 35.0 % Critically low 36.0-48.0 [facility] Comment on above: Performed By: #### B MP #### [facility] [address] [place] [address] Dr. Reji Thomas Hemoglobin (Bld) [Mass/Vol] 11.1 g/dL Critically low 12.0-16.0 [facility] Comment on above: Performed By: #### B MP #### [facility] [address] [address] [address] Reji Thomas IG # 0.02 10e3/ul Normal 0.00-0.03 [facility] Comment on above: Performed By: #### B MP #### [facility] [address] [place] [address] Dr. Reji Thomas IG % 0.3 % Normal 0.0-0.5 [facility] Comment on above: Performed By: #### B MP #### [facility] [address] [place] [address] Dr. Reji Thomas LYMPH # 1.6 103/ul Normal 1.2-3.8 [facility] Comment on above: Performed By: #### B MP #### [facility] [address] [place] [address] Dr. Reji Thomas Lymphocytes/100 WBC (Bld) 22.4 % Normal 20.5-60.0 [facility] Comment on above: Performed By: #### B MP #### [facility] [address] [place] [address] Dr. Reji Thomas MANUAL DIFF REQ NO Normal [facility] Comment on above: Performed By: #### B MP #### [facility] [address] [place] [address] Dr. Reji Thomas MCH (RBC) [Entitic mass] 26.4 pg Critically low 26.7-34.0 [facility] Comment on above: Performed By: #### B MP #### [facility] [address] [place] [address] Dr. Reji Thomas MCHC (RBC) [Mass/Vol] 31.7 g/dL Normal 29.9-35.2 [facility] Comment on above: Performed By: #### B MP #### [facility] [address] [place] [address] Dr. Reji Thomas MCV (RBC) [Entitic vol] 83.1 fL Normal 81.0-99.0 [facility] Comment on above: Performed By: #### B MP #### [facility] [address] [address] [address] Reji Thomas MONO # 0.9 103/ul Critically high 0.3-0.8 [facility] Comment on above: Performed By: #### B MP #### [facility] [address] [address] [address] Reji Thomas Monocytes/100 WBC (Bld) 12.1 % Critically high 1.7-12.0 [facility] Comment on above: Performed By: #### B MP #### [facility] [address] [place] [address] Dr. Reji Thomas NEUT # 4.1 103/ul Normal 1.4-6.5 [facility] Comment on above: Performed By: #### B MP #### [facility] [address] [place] [address] Dr. Reji Thomas Neutrophils/100 WBC (Bld) 57.6 % Normal 43.0-75.0 [facility] Comment on above: Performed By: #### B MP #### [facility] [address] [place] [address] Dr. Reji Thomas Platelet mean volume (Bld) [Entitic vol] 8.8 fL Critically low 9.5-13.5 [facility] Comment on above: Performed By: #### B MP #### [facility] [address] [place] [address] Dr. Reji Thomas PLT 253 103/ul Normal 150-450 [facility] Comment on above: Performed By: #### B MP #### [facility] [address] [place] [address] Dr. Reji Thomas RBC 4.21 106/ul Normal 4.20-5.40 [facility] Comment on above: Performed By: #### B MP #### [facility] [address] [place] [address] Dr. Reji Thomas WBC 7.1 103/ul Normal 4.0-11.0 [facility] Comment on above: Performed By: #### B MP #### [facility] [address] [place] [address] Dr. Reji Thomas PROF CHEM 8 (BAS METB)on Anion gap [Moles/Vol] 10.5 mmol/L Normal [facility] Comment on above: Performed By: #### B PLATER PRODUCTION, CMP, TSH, LIPID #### [facility] [address] [address] [address] Reji Thomas Calcium [Mass/Vol] 8.9 mg/dL Normal 8.5-10.1 [facility] Comment on above: Performed By: #### B PLATER PRODUCTION, CMP, TSH, LIPID #### [facility] [address] [address] [address] Reji Thomas Chloride [Moles/Vol] 104 mmol/L Normal 98-107 [facility] Comment on above: Performed By: #### B PLATER PRODUCTION, CMP, TSH, LIPID #### [facility] [address] [place] [address] Dr. Reji Thomas CO2 [Moles/Vol] 29.5 mmol/L Normal 21.0-32.0 [facility] Comment on above: Performed By: #### B PLATER PRODUCTION, CMP, TSH, LIPID #### [facility] [address] [address] [address] Reji Thomas Creatinine [Mass/Vol] 1.73 mg/dL Critically high 0.55-1.02 [facility] Comment on above: Performed By: #### B PLATER PRODUCTION, CMP, TSH, LIPID #### [facility] [address] [address] [address] Reji Thomas EGFR-AF MAURITANIAN 34 mL/min/1.73m2 Critically low >=60 [facility] Comment on above: Performed By: #### B PLATER PRODUCTION, CMP, TSH, LIPID #### [facility] [address] [address] [address] Reji Thomas EGFR-NON AF MAURITANIAN 28 mL/min/1.73m2 Critically low >=60 [facility] Comment on above: Performed By: #### B PLATER PRODUCTION, CMP, TSH, LIPID #### [facility] [address] [address] [address] Reji Thomas Glucose [Mass/Vol] 79 mg/dL Normal 74-106 [facility] Comment on above: Performed By: #### B PLATER PRODUCTION, CMP, TSH, LIPID #### [facility] [address] [place] [address] Dr. Reji Thomas Potassium [Moles/Vol] 4.0 mmol/L Normal 3.5-5.1 [facility] Comment on above: Performed By: #### B PLATER PRODUCTION, CMP, TSH, LIPID #### [facility] [address] [address] [address] Reji Thomas Sodium [Moles/Vol] 140 mmol/L Normal 136-145 [facility] Comment on above: Performed By: #### B PLATER PRODUCTION, CMP, TSH, LIPID #### [facility] [address] [place] [address] Dr. Reji Thomas Urea nitrogen [Mass/Vol] 22.0 mg/dL Critically high 7.0-18.0 [facility] Comment on above: Performed By: #### B PLATER PRODUCTION, CMP, TSH, LIPID #### [facility] [address] [place] [address] Dr. Reji Thomas Urea nitrogen/Creatinine [Mass ratio] 12.7 mg/mg Normal [facility] Comment on above: Performed By: #### B PLATER PRODUCTION, CMP, TSH, LIPID #### [facility] [address] [place] [address] Dr. Reji Thomas PROTIMEon 05-15-2022 INR Coag (PPP) [Relative time] 2.53 {INR} Normal [facility] Comment on above: Performed By: #### B PLATER PRODUCTION, CMP, TSH, LIPID #### [facility] [address] [place] [address] Dr. Reji Thomas INR GUIDELINES SEE BELOW Normal [facility] Comment on above: Result Comment: SHY RED INR: 2.0 - 3.0 CONDITIONS NOT LISTED BELOW 2.5 - 3.5 FOR PROSTHETIC HEART VALVE REPLACEMENT 2.5 - 3.5 RECURRENT THROMBOSIS Performed By: #### B PLATER PRODUCTION, CMP, TSH, LIPID #### [facility] [address] [place] [address] Dr. Reji Thomas PT Coag (PPP) [Time] 25.7 s Critically high 9.0-11.6 [facility] Comment on above: Performed By: #### B PLATER PRODUCTION, CMP, TSH, LIPID #### [facility] [address] [address] [address] Reji Thomas ECHOCARDIO M/2D COMPLETEon 0 05-04-2022 ECHOCARDIO M/2D COMPLETE Patient: INEZ JUAREZ Exam Date: 05/04/2022 : 1940 Gender:F Ordering : DR JENN PRADO M.D. Admission #: [id number] Family : Order #: [id number] CLICK HERE TO VIEW EXAM ECHOCARDIOGRAM REPORT [...] Area(A4C): 27.20 cm2 Left Atrium Systolic Volume(A2C): 830037 mm3 Left Atrium Systolic Volume(A4C): 78242 mm3 Mitral Valve MV E to A Ratio: 2.60 Deceleration Sherman: 05566 mm/s2 Mitral Valve A-Wave Peak Velocity: 58.60 [...] Prado M.D. on 05/07/2022 at 11:39 Normal [facility] EVAN by IFAon 04-19-2022 Antinuclear Antibodies, IFA Positive Abnormal [facility] Comment on above: Result Comment: Nega tive <1:80 Borderline 1:80 Positive >1:80 Performed By: #### B PLATER PRODUCTION, CMP, TSH, LIPID #### [facility] [address] [place] [address] Dr. Reji Thomas Centriole Pattern Normal [facility] Comment on above: Performed By: #### B PLATER PRODUCTION, CMP, TSH, LIPID #### [facility] [address] [address] [address] Reji Thomas Centromere Pattern Normal [facility] Comment on above: Performed By: #### B PLATER PRODUCTION, CMP, TSH, LIPID #### [facility] [id number] Reji Thomas Homogeneous Pattern 1:320 Critically high [facility] Comment on above: Result Comment: ICAP nomenclature: AC-1 Performed By: #### B PLATER PRODUCTION, CMP, TSH, LIPID #### [facility] [address] [address] [address] Reji Thomas Midbody Pattern Normal [facility] Comment on above: Performed By: #### B PLATER PRODUCTION, CMP, TSH, LIPID #### [facility] [address] [address] [address] Reji Thomas Note: Comment Normal [facility] Comment on above: Result Comment: For [...] titers Nucleosomes, Histones Drug-induced SLE Speckled Sm, HOT METAL MIXER OPERATOR HELPER, SCL-70, SLE,MCTD,PSS (diffuse form), SS-A/SS-B Sjogrens Nucleolar SCL-70, PM-1/SCL High titers Scleroderma, PM/DM Centromere Centromere PSS (limited form) w/Crest syndrome variable Nuclear Dot [id number] Primary Biliary Cirrhosis Nuclear GP210, Primary Biliary Cirrhosis Membrane eleonora A,B,C Performed By: #### B PLATER PRODUCTION, CMP, TSH, LIPID #### [facility] [address] [place] [address] Dr. Reji Thomas Nuclear Dot Pattern Normal [facility] Comment on above: Performed By: #### B PLATER PRODUCTION, CMP, TSH, LIPID #### [facility] [address] [place] [address] Dr. Reji Thomas Nuclear Membrane Pattern Normal [facility] Comment on above: Performed By: #### B PLATER PRODUCTION, CMP, TSH, LIPID #### [facility] [address] [address] [address] Reji Thomas Nucleolar Pattern Normal [facility] Comment on above: Performed By: #### B PLATER PRODUCTION, CMP, TSH, LIPID #### [facility] [address] [address] [address] Reji Thomas PCNA Pattern Normal [facility] Comment on above: Performed By: #### B PLATER PRODUCTION, CMP, TSH, LIPID #### [facility] [address] [address] [address] Reji Thomas Speckled Pattern Normal [facility] Comment on above: Performed By: #### B PLATER PRODUCTION, CMP, TSH, LIPID #### [facility] [address] [address] [address] Reji Thomas Spindle Apparatus Pattern Normal [facility] Comment on above: Performed By: #### B PLATER PRODUCTION, CMP, TSH, LIPID #### [facility] [address] [address] [address] Reji Thomas ANCA (ANTINEUTROPHIL CYTOPLA MSMIC ABon 04-18-2022 Atypical pANCA <1:20 Normal Neg:<1:20 [facility] Comment on above: Result Comment: Seru m is slightly hemolyzed The atypical pANCA pattern has been observed in a significant percentage of patients with ulcerative colitis, primary sclerosing cholangitis and autoimmune hepatitis. Performed By: #### B MP #### [facility] [address] [address] [address] Reji Thomas Cytoplasmic (C-ANCA) <1:20 Normal Neg:<1:20 [facility] Comment on above: Result Comment: Seru m is slightly hemolyzed Performed By: #### B MP #### [facility] [address] [address] [address] Reji Thomas Perinuclear (P-ANCA) <1:20 Normal Neg:<1:20 [facility] Comment on above: Result Comment: Seru m is slightly hemolyzed The presence of positive fluorescence exhibiting P-ANCA or C-ANCA patterns alone is not specific for the diagnosis of Arlene's Granulomatosis (WG) or microscopic polyangiitis. Decisions about treatment should not be based solely on ANCA IFA results. The [employer] ANCA [employer] Consensus recommends follow up testing of positive sera with both AR-3 and MPO-ANCA enzyme immunoassays. As many as 5% serum samples are positive only by EIA. Ref. AM J Clin Pathol 1999;111:507-513. Performed By: #### B MP #### [facility] [address] [place] [address] Dr. Reji Thomas ANTISCLERODERMA ABon 022 Antiscleroderma-70 Antibodies 0.3 AI Normal 0.0-0.9 [facility] Comment on above: Performed By: #### B PLATER PRODUCTION, CMP, TSH, LIPID #### [facility] [address] [place] [address] Dr. Reji Thomas T3 UPTAKEon 04-18-2022 Free Thyroxine Index 1.8 Normal 1.2-4.9 [facility] Comment on above: Performed By: #### B PLATER PRODUCTION, CMP, TSH, LIPID #### [facility] [address] [place] [address] Dr. Reji Thomas T3 Uptake 23 % Critically low 24-[address] [facility] Comment on above: Performed By: #### B PLATER PRODUCTION, CMP, TSH, LIPID #### [facility] [address] [place] [address] Dr. Reji Thomas T4 LABCORPon 04-18-2022 T4 [Mass/Vol] 7.8 ug/dL Normal 4.5-12.0 [facility] Comment on above: Performed By: #### B PLATER PRODUCTION, CMP, TSH, LIPID #### [facility] [address] [place] [address] Dr. Reji Thomas BNPon 04-16-2022 Natriuretic peptide B (Bld) [Mass/Vol] 2870.0 pg/mL Critically high <=1,800.0 [facility] Comment on above: Result Comment: repe ated Performed By: #### B PLATER PRODUCTION, CMP, TSH, LIPID #### [facility] [address] [place] [address] Dr. Reji Thomas CBC AUTO DIFFon 04-16-2022 BASO # 0.1 103/ul Normal 0.0-0.1 [facility] Comment on above: Performed By: #### B PLATER PRODUCTION, CMP, TSH, LIPID #### [facility] [address] [place] [address] Dr. Reji Thomas Basophils/100 WBC (Bld) 0.9 % Normal 0.2-2.0 [facility] Comment on above: Performed By: #### B PLATER PRODUCTION, CMP, TSH, LIPID #### [facility] [address] [place] [address] Dr. Reji Thomas EO # 0.3 103/ul Normal 0.0-0.7 [facility] Comment on above: Performed By: #### B PLATER PRODUCTION, CMP, TSH, LIPID #### [facility] [address] [place] [address] Dr. Reji Thomas Eosinophils/100 WBC (Bld) 3.9 % Normal 0.9-7.0 [facility] Comment on above: Performed By: #### B PLATER PRODUCTION, CMP, TSH, LIPID #### [facility] [address] [place] [address] Dr. Reji Thomas Erythrocyte distribution width (RBC) [Ratio] 15.9 % Critically high 11.0-15.0 [facility] Comment on above: Performed By: #### B PLATER PRODUCTION, CMP, TSH, LIPID #### [facility] [address] [place] [address] Dr. Reji Thomas Hematocrit (Bld) [Volume fraction] 38.1 % Normal 36.0-48.0 [facility] Comment on above: Performed By: #### B PLATER PRODUCTION, CMP, TSH, LIPID #### [facility] [address] [place] [address] Dr. Reji Thomas Hemoglobin (Bld) [Mass/Vol] 12.1 g/dL Normal 12.0-16.0 [facility] Comment on above: Performed By: #### B PLATER PRODUCTION, CMP, TSH, LIPID #### [facility] [address] [place] [address] Dr. Reji Thomas IG # 0.02 10e3/ul Normal 0.00-0.03 [facility] Comment on above: Performed By: #### B PLATER PRODUCTION, CMP, TSH, LIPID #### [facility] [address] [place] [address] Dr. Reji Thomas IG % 0.3 % Normal 0.0-0.5 [facility] Comment on above: Performed By: #### B PLATER PRODUCTION, CMP, TSH, LIPID #### [facility] [address] [place] [address] Dr. Reji Thomas LYMPH # 1.6 103/ul Normal 1.2-3.8 [facility] Comment on above: Performed By: #### B PLATER PRODUCTION, CMP, TSH, LIPID #### [facility] [address] [place] [address] Dr. Reji Thomas Lymphocytes/100 WBC (Bld) 22.6 % Normal 20.5-60.0 [facility] Comment on above: Performed By: #### B PLATER PRODUCTION, CMP, TSH, LIPID #### [facility] [address] [place] [address] Dr. Reji Thomas MANUAL DIFF REQ NO Normal [facility] Comment on above: Performed By: #### B PLATER PRODUCTION, CMP, TSH, LIPID #### [facility] [address] [place] [address] Dr. Reji Thomas MCH (RBC) [Entitic mass] 26.5 pg Critically low 26.7-34.0 [facility] Comment on above: Performed By: #### B PLATER PRODUCTION, CMP, TSH, LIPID #### [facility] [address] [place] [address] Dr. Reji Thomas MCHC (RBC) [Mass/Vol] 31.8 g/dL Normal 29.9-35.2 [facility] Comment on above: Performed By: #### B PLATER PRODUCTION, CMP, TSH, LIPID #### [facility] [address] [place] [address] Dr. Reji Thomas MCV (RBC) [Entitic vol] 83.4 fL Normal 81.0-99.0 [facility] Comment on above: Performed By: #### B PLATER PRODUCTION, CMP, TSH, LIPID #### [facility] [address] [place] [address] Dr. Reji Thomas MONO # 0.6 103/ul Normal 0.3-0.8 [facility] Comment on above: Performed By: #### B PLATER PRODUCTION, CMP, TSH, LIPID #### [facility] [address] [place] [address] Dr. Reji Thomas Monocytes/100 WBC (Bld) 9.3 % Normal 1.7-12.0 [facility] Comment on above: Performed By: #### B PLATER PRODUCTION, CMP, TSH, LIPID #### [facility] [address] [place] [address] Dr. Reji Thomas NEUT # 4.3 103/ul Normal 1.4-6.5 [facility] Comment on above: Performed By: #### B PLATER PRODUCTION, CMP, TSH, LIPID #### [facility] [address] [place] [address] Dr. Reji Thomas Neutrophils/100 WBC (Bld) 63.0 % Normal 43.0-75.0 [facility] Comment on above: Performed By: #### B PLATER PRODUCTION, CMP, TSH, LIPID #### [facility] [address] [place] [address] Dr. Reji Thomas Platelet mean volume (Bld) [Entitic vol] 9.2 fL Critically low 9.5-13.5 [facility] Comment on above: Performed By: #### B PLATER PRODUCTION, CMP, TSH, LIPID #### [facility] [address] [place] [address] Dr. Reji Thomas PLT 211 103/ul Normal 150-450 [facility] Comment on above: Performed By: #### B PLATER PRODUCTION, CMP, TSH, LIPID #### [facility] [address] [place] [address] Dr. Reji Thomas RBC 4.57 106/ul Normal 4.20-5.40 [facility] Comment on above: Performed By: #### B PLATER PRODUCTION, CMP, TSH, LIPID #### [facility] [address] [place] [address] Dr. Reji Thomas WBC 6.9 103/ul Normal 4.0-11.0 [facility] Comment on above: Performed By: #### B PLATER PRODUCTION, CMP, TSH, LIPID #### [facility] [address] [place] [address] Dr. Reji Thomas GLYCOHEMOGLOBIN A1Con 2021 ADA RECOMMENDATION SEE BELOW Normal [facility] Comment on above: Result Comment: ADA RECOMMENDED LIMIT 4.0 - 6.0 ADA THERAPEUTIC TARGET < 7.0 ACTION SUGGESTED > 7.0 Performed By: #### B PLATER PRODUCTION, CMP, TSH, LIPID #### [facility] [address] [address] [address] Reji Thomas Glucose [Mass/Vol] 100 mg/dL Normal [facility] Comment on above: Performed By: #### B PLATER PRODUCTION, CMP, TSH, LIPID #### [facility] [address] [address] [address] Reji Thomas HbA1c (Bld) [Mass fraction] 5.1 % Normal 4.5-6.2 [facility] Comment on above: Performed By: #### B PLATER PRODUCTION, CMP, TSH, LIPID #### [facility] [address] [place] [address] Dr. Reji Thomas IRONon 04-16-2022 Iron [Mass/Vol] 42.0 ug/dL Critically low 50.0-170.0 [place] Comment on above: Performed By: #### B PLATER PRODUCTION, CMP, TSH, LIPID #### [facility] [address] [place] [address] Dr. Reji Thomas LIPID PROFILEon 04-16-2022 CHOL-HDL RATIO NORM SEE BELOW Normal [place] Comment on above: Result Comment: 3.3 - 4.4 LOW RISK 4.4 - 7.1 AVERAGE RISK 7.1 - 11.0 MODERATE RISK >11.0 HIGH RISK Performed By: #### B PLATER PRODUCTION, CMP, TSH, LIPID #### [facility] [address] [address] [address] Reji Thomas Cholesterol [Mass/Vol] 176 mg/dL Normal <=200 [facility] Comment on above: Performed By: #### B PLATER PRODUCTION, CMP, TSH, LIPID #### [facility] [address] [place] [address] Dr. Reji Thomas Cholesterol in HDL [Mass/Vol] 52 mg/dL Normal 40-60 [facility] Comment on above: Performed By: #### B PLATER PRODUCTION, CMP, TSH, LIPID #### [facility] [address] [address] [address] Reji Thomas Cholesterol in LDL [Mass/Vol] 102.8 mg/dL Normal [facility] Comment on above: Performed By: #### B PLATER PRODUCTION, CMP, TSH, LIPID #### [facility] [address] [address] [address] Reji Thomas Cholesterol.total/Ch olesterol in HDL [Mass ratio] 3.4 {ratio} Normal [facility] Comment on above: Performed By: #### B PLATER PRODUCTION, CMP, TSH, LIPID #### [facility] [address] [address] [address] Reji Thomas HDL NORMAL > or = 60 mg/dl - LOW CARDIOVASCULAR RISK <40 mg/dl - HIGH CARDIOVASCULAR RISK Normal [facility] Comment on above: Performed By: #### B PLATER PRODUCTION, CMP, TSH, LIPID #### [facility] [address] [place] [address] Dr. Reji Thomas LDL CALC NORMAL SEE BELOW Normal [facility] Comment on above: Result Comment: <100 mg/dl OPTIMAL 100 - 129 mg/dl NEAR OR ABOVE OPTIMAL 130 - 159 mg/dl BORDERLINE HIGH 160 - 189 mg/dl HIGH >190 mg/dl VERY HIGH Performed By: #### B PLATER PRODUCTION, CMP, TSH, LIPID #### [facility] [address] [place] [address] Dr. Reji Thomas Triglyceride [Mass/Vol] 106 mg/dL Normal <=150 [facility] Comment on above: Performed By: #### B PLATER PRODUCTION, CMP, TSH, LIPID #### [facility] [address] [address] [address] Reji Thomas VLDL CALC 21.2 mg/dL Normal [facility] Comment on above: Performed By: #### B PLATER PRODUCTION, CMP, TSH, LIPID #### [facility] [address] [place] [address] Dr. Reji Thomas PROF 14(COMP METB)on 022 Albumin [Mass/Vol] 3.6 g/dL Normal 3.4-5.0 [facility] Comment on above: Performed By: #### B PLATER PRODUCTION, CMP, TSH, LIPID #### [facility] [address] [address] [address] Reji Thomas Albumin/Globulin [Mass ratio] 0.9 {ratio} Normal [facility] Comment on above: Performed By: #### B PLATER PRODUCTION, CMP, TSH, LIPID #### [facility] [address] [place] [address] Dr. Reji Thomas ALP [Catalytic activity/Vol] 62 U/L Normal 46-116 [facility] Comment on above: Performed By: #### B PLATER PRODUCTION, CMP, TSH, LIPID #### [facility] [address] [place] [address] Dr. Reji Thomas ALT [Catalytic activity/Vol] 14 U/L Normal 14-59 [facility] Comment on above: Performed By: #### B PLATER PRODUCTION, CMP, TSH, LIPID #### [facility] [address] [place] [address] Dr. Reji Thomas Anion gap [Moles/Vol] 14.5 mmol/L Normal [facility] Comment on above: Performed By: #### B PLATER PRODUCTION, CMP, TSH, LIPID #### [facility] [address] [place] [address] Dr. Reji Thomas AST [Catalytic activity/Vol] 17 U/L Normal 15-37 [facility] Comment on above: Performed By: #### B PLATER PRODUCTION, CMP, TSH, LIPID #### [facility] [address] [place] [address] Dr. Reji Thomas Bilirubin [Mass/Vol] 0.6 mg/dL Normal 0.2-1.0 [facility] Comment on above: Performed By: #### B PLATER PRODUCTION, CMP, TSH, LIPID #### [facility] [address] [place] [address] Dr. Reji Thomas Calcium [Mass/Vol] 8.8 mg/dL Normal 8.5-10.1 [facility] Comment on above: Performed By: #### B PLATER PRODUCTION, CMP, TSH, LIPID #### [facility] [address] [place] [address] Dr. Reji Thomas Chloride [Moles/Vol] 102 mmol/L Normal 98-107 [facility] Comment on above: Performed By: #### B PLATER PRODUCTION, CMP, TSH, LIPID #### [facility] [address] [address] [address] Reji Thomas CO2 [Moles/Vol] 26.3 mmol/L Normal 21.0-32.0 [facility] Comment on above: Performed By: #### B PLATER PRODUCTION, CMP, TSH, LIPID #### [facility] [address] [address] [address] Reji Thomas Creatinine [Mass/Vol] 1.76 mg/dL Critically high 0.55-1.02 [facility] Comment on above: Performed By: #### B PLATER PRODUCTION, CMP, TSH, LIPID #### [facility] [address] [place] [address] Dr. Reji Thomas EGFR-AF MAURITANIAN 33 mL/min/1.73m2 Critically low >=60 [facility] Comment on above: Performed By: #### B PLATER PRODUCTION, CMP, TSH, LIPID #### [facility] [address] [place] [address] Dr. Reji Thomas EGFR-NON AF MAURITANIAN 28 mL/min/1.73m2 Critically low >=60 [facility] Comment on above: Performed By: #### B PLATER PRODUCTION, CMP, TSH, LIPID #### [facility] [address] [place] [address] Dr. Reji Thomas Globulin (S) [Mass/Vol] 4.2 g/dL Normal [facility] Comment on above: Performed By: #### B PLATER PRODUCTION, CMP, TSH, LIPID #### [facility] [address] [place] [address] Dr. Reji Thomas Glucose [Mass/Vol] 81 mg/dL Normal 74-106 [facility] Comment on above: Performed By: #### B PLATER PRODUCTION, CMP, TSH, LIPID #### [facility] [address] [place] [address] Dr. Reji Thomas Potassium [Moles/Vol] 3.8 mmol/L Normal 3.5-5.1 [facility] Comment on above: Performed By: #### B PLATER PRODUCTION, CMP, TSH, LIPID #### [facility] [address] [address] [address] Reji Thomas Protein [Mass/Vol] 7.8 g/dL Normal 6.4-8.2 [facility] Comment on above: Performed By: #### B PLATER PRODUCTION, CMP, TSH, LIPID #### [facility] [address] [address] [address] Reji Thomas Sodium [Moles/Vol] 139 mmol/L Normal 136-145 [facility] Comment on above: Performed By: #### B PLATER PRODUCTION, CMP, TSH, LIPID #### [facility] [address] [address] [address] Reji Thomas Urea nitrogen [Mass/Vol] 27.0 mg/dL Critically high 7.0-18.0 [facility] Comment on above: Performed By: #### B PLATER PRODUCTION, CMP, TSH, LIPID #### [facility] [address] [address] [address] Reji Thomas Urea nitrogen/Creatinine [Mass ratio] 15.3 mg/mg Normal [facility] Comment on above: Performed By: #### B PLATER PRODUCTION, CMP, TSH, LIPID #### [facility] [address] [place] [address] Dr. Reji Thomas PROTIMEon 04-16-2022 INR Coag (PPP) [Relative time] 1.92 {INR} Normal [facility] Comment on above: Performed By: #### B PLATER PRODUCTION, CMP, TSH, LIPID #### [facility] [address] [place] [address] Dr. Reji Thomas INR GUIDELINES SEE BELOW Normal [facility] Comment on above: Result Comment: SHY RED INR: 2.0 - 3.0 CONDITIONS NOT LISTED BELOW 2.5 - 3.5 FOR PROSTHETIC HEART VALVE REPLACEMENT 2.5 - 3.5 RECURRENT THROMBOSIS Performed By: #### B PLATER PRODUCTION, CMP, TSH, LIPID #### [facility] [address] [place] [address] Dr. Reji Thomas PT Coag (PPP) [Time] 19.9 s Critically high 9.0-11.6 [facility] Comment on above: Performed By: #### B PLATER PRODUCTION, CMP, TSH, LIPID #### [facility] [address] [address] [address] Reji Thomas SED RATE WESTERGRENon 2021 SED RATE 37 mm/hr Critically high <=30 [facility] Comment on above: Performed By: #### B PLATER PRODUCTION, CMP, TSH, LIPID #### [facility] [address] [place] [address] Dr. Reji Thomas TSHon 04-16-2022 TSH 1.941 uIU/mL Normal 0.358-3.740 [facility] Comment on above: Performed By: #### B PLATER PRODUCTION, CMP, TSH, LIPID #### [facility] [address] [place] [address] Dr. Reji Thomas TSH RANGE SEE BELOW Normal [facility] Comment on above: Result Comment: <0.3 4 UIU/ml HYPERTHYROID 0.34-5.60 UIU/ml EUTHYROID >5.60 UIU/ml HYPOTHYROID Performed By: #### B PLATER PRODUCTION, CMP, TSH, LIPID #### [facility] [address] [place] [address] Dr. Reji Thomas VITAMIN D 25 OHon 04-16-2022 VIT D 25-OH 56.6 ng/mL Normal [facility] Comment on above: Performed By: #### B PLATER PRODUCTION, CMP, TSH, LIPID #### [facility] [address] [place] [address] Dr. Reji Thomas VIT D RANGES SEE BELOW Normal [facility] Comment on above: Result Comment: <20 ng/mL Vit D deficient 20 - <30 ng/mL Vit D insufficient 30 - 100 ng/mL Vit D sufficient >100 ng/mL Potential Toxicity Performed By: #### B PLATER PRODUCTION, CMP, TSH, LIPID #### [facility] [address] [place] [address] Dr. Reji Thomas Cardiovascular Lab Reporton 11-02-2021 Cardiovascular Lab Report [facility] Patient Name: Inez Juarez MR #: [id number] [facility] Physician: Jenn Prado M.D. Department of Service Date: 11/01/2021 Medicine Birthdate: 1940 Division of Room #: Cardiology Adult Cardiovascular Services [place] [address] Cardiovascular Laboratory Report INDICATION: The patient is [...] She signed consent. She was brought to [employer] [employer] in a fasting state. The right neck area was prepped and draped in usual fashion. Micropuncture technique and ultrasound guidance were used for access in the right internal jugular vein. A 6-Mauritian x 11 cm sheath was placed. A 6-Mauritian Hernández catheter was used for heart catheterization [...] Prado M.D. Date Trans: 11/01/2021 11:22 P/alondra [id number] cc: Bruce Rizvi M.D. [address], [place] [address] [place] [facility] Cardiovascular Lab Reporton 06-02-2021 Cardiovascular Lab Report [facility] Patient Name: Inez Juarez MR #: [id number] [facility] Physician: Jenn Prado M.D. Department of Service Date: 06/02/2021 Medicine Birthdate: 1940 Division of Room #: CC Cardiology Adult Cardiovascular Services [place] [address] Cardiovascular Laboratory Report INDICATION: The patient is [...] the informed consent. She was brought to [employer] in a fasting state. The right neck area was prepped and draped in usual fashion. Using micropuncture technique and ultrasound guidance, the right internal jugular vein was accessed and a 6-Mauritian x 11 cm sheath was placed. A 6-Mauritian Hernández catheter was used for heart catheterization [...] Prado M.D. Date Trans: 06/02/2021 02:42 P/alondra [id number] cc: Bruce Rizvi M.D. [address] [facility] [address] [facility] Encounters Encounter Date Encounter Type Care Provider Facility Start: 12-13-2023 End: 12-13-2023 ambulatory [facility] Start: 10-30-2023 End: 10-30-2023 ambulatory [facility] Start: 10-22-2023 End: 10-22-2023 ambulatory ANTONY YOPTA [facility] Start: 05-20-2023 End: 05-20-2023 ambulatory JENN PRADO [facility] Start: 03-22-2023 End: 03-23-[address] [...] RIZVI . Facility:[facility] Start: 04-06-[address] RBUCE RIZVI . Facili ty:[facility] Start: 11-01-2021 End: 11-02-2021 ambulatory PROVIDER UNKNOWN Facility:[facility] Start: 06-02-2021 End: 06-03-2021 ambulatory PROVIDER UNKNOWN Facility:[facility] Payers Date Payer Category Payer Medicare [id number] 1961 Medicare [id number] 1961 Medicare [id number] 1961 Self-pay [id number] 1940 Unknown [id number] 2.16.8 [id number] 1940 Unknown [id number] 2.16.8 40.1.872558.3.579.2.647 1940 Unknown [id number] 2.16.84 0.1.300145.3.579.2.593 1938 Unknown [id number] 2.16.84 0.1.311426.3.579.2.593 1938 Unknown [id number] 2.16.84 0.1.843903.3.579.2.593 1938 Unknown [id number] 2.16.84 0.1.432157.3.579.2.593 1938 Unknown [id number] 2.16.84 0.1.913950.3.579.2.593 1938 Unknown [id number] 2.16.84 0.1.516545.3.579.2.593 1938 Unknown [id number] 2.16.84 0.1.126406.3.579.2.593 1938 Unknown [id number] 2.16.84 0.1.899291.3.579.2.593 1938 Unknown [id number] 2.16.84 0.1.722240.3.579.2.593 1938 Unknown [id number] 2.16.84 0.1.779723.3.579.2.593 1938 Unknown [id number] 2.16.84 0.1.095138.3.579.2.593 1938 Unknown [id number] 2.16.84 0.1.145645.3.579.2.593 1938 Unknown [id number] 2.16.84 0.1.881989.3.579.2.593 1938 Unknown [id number] 2.16.84 0.1.608818.3.579.2.593 1938 Unknown [id number] 2.16.84 0.1.669683.3.579.2.593 1938 Unknown [id number] 2.16.84 0.1.173515.3.579.2.593 1938 Unknown [id number] 2.16.84 0.1.622193.3.579.2.593 1938 Unknown [id number] 2.16.84 0.1.263432.3.579.2.593 1938 Unknown [id number] 2.16.84 0.1.652313.3.579.2.593 Private Health Insurance ORB [id number] Progress note 12-13-2023 Note Date & Type Note Facility 12-13-2023 Note [place] [facility] Petrona Juarez is a 83 [...] james (more content not included)... [facility] Progress note 10-30-2023 Note Date & Type Note Facility 10-30-2023 Note [place] [facility] Subjective Inez Juarez is a [...] Systol (more content not included)... [facility] Clinical Note 10-22-2023 Note Date & Type Note Facility 10-22-2023 Note Patient: Inez foss Procedure Information Date/Time: 10/22/23 0830 Procedure: Right heart cath Location: [facility] LOADING CHECKER 3 / [facility] (Cath) Providers: Antony Smith [...] and attending. Additional Equipment Requests [facility] Clinical Note 10-15-2023 Note Date & Type Note Facility 10-15-[address] Smith regarding warfarin. Dr Smith requested warfarin to be held for 3 days prior to procedure. [facility] Progress note 09-19-2023 Note Date & Type Note Facility 09-19-2023 Note [facility] Progress note 05-20-2023 Note Date & Type Note Facility 05-20-2023 Note [place] [facility] Petrona Juarez is a 83 y.o. year [...] Large (more content not included)... [facility] Summary Purpose Family History No Family History Records FoundNo Family History Records FoundNo Family History Records FoundNo Family History Records Found Advance Directives No Advanced Directives Records FoundNo Advanced Directives Records FoundNo Advanced Directives Records FoundNo Advanced Directives Records Found Additional Source Comments INFORMATION SOURCE (unrecogn ized section and content) DATE CREATED AUTHOR 11/03/2021 [facility] DATE CREATED AUTHOR AUTHOR'S ORGANIZ ATION 07/05/2022 [facility] DATE CREATED AUTHOR AUTHOR'S ORGANIZ ATION 03/23/2023 [facility] DATE CREATED AUTHOR AUTHOR'S ORGANIZ ATION 12/14/2023 [facility] FOR RECORDS PERTAINING TO PATIENTS WHO [...] BE BASED ON THE PRIMARY CLINICAL RECORDS. [employer] [facility]. provides no warranty or guarantee of the accuracy or completeness of information in this document.
== END 2024-06-08 12:53 | disposition home or self-care (01) ==
LOC: CARD 12:53
PROVIDERS: PCP Family Medicine; Visit Provider Internal Medicine Interventional Cardiology
DX: I48.91 Unspecified atrial fibrillation (principal); I27.20 Pulmonary hypertension, unspecified
CPT/HCPCS: 36415; 85610; 93306

== ENCOUNTER 2024-06-08 12:53 | Outpatient (OUT) | payer MEDICARE, SELFPAY ==
--- OUTSIDE RECORDS SUMMARY | 2024-06-08 13:20 | XMS_ITS | CCD ---
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] Onset: 06-04-2022 Episodic Other [...] Range Facility Office Visiton 12-13-2023 Follow-up visit [id number] Inez Juarez 1940 F Date Provider Department Center 12/13/2023 JENN AMANDA BARBRA Ac[place]ña Family History Problem Relation Age of Onset Hypertension Mother Coronary artery disease Father Hypertension Father Family Status - Relation Status Age at Mother Father Level of Service:11045 [place] OFFICE/OUTPATIENT ESTABLISHED MOD MDM 30 MIN Normal [facility] [place] Office Visiton 10-30-2023 Follow-up visit [id number] Inez Juarez 1940 F Date Provider Department Center 10/30/2023 JENN AMANDA BARBRA [place] Family History Problem Relation Age of Onset Hypertension Mother Coronary artery disease Father Hypertension Father Family Status - Relation Status Age at Mother Father Level of Service:43533 [place] OFFICE/OUTPATIENT ESTABLISHED MOD MDM 30 MIN Normal [facility] HPon 10-22-2023 HP History Of Present Illness [...] a past medical history of Atrial fibrillation ([facility]), CHF (congestive heart failure) ([facility]), Chronic kidney disease, GERD (gastroesophageal reflux [...] Results Reviewed Relevant (more content not included)... [facility] NURSNOTEon 10-22-2023 NURSNOTE RN educated pt on d/c instructions. RN encouraged pt to voice any questions or concerns. Pt verbalizes no questions or concerns at this time. [facility] Office Visiton 05-20-2023 Follow-up visit [id number] Inez Juarez 1940 F Date Provider Department Center 05/20/2023 JENN AMANDA [facility] Family History Problem Relation Age of Onset Hypertension Mother Coronary artery disease Father Hypertension Father Family Status - Relation Status Age at Mother Father Level of Service:23787 [place] OFFICE/OUTPATIENT ESTABLISHED MOD MDM 30-39 MIN Reason for Visit and Comments: Shortness of Breath [118399] Fatigue [46] Follow-up [807776] [facility] BNPon 03-22-2023 Natriuretic peptide B (Bld) [Mass/Vol] 1423.0 pg/mL Normal <=1,800.0 [facility] Comment on above: Performed By: #### B BUILDING TECH, CMP, TSH, LIPID #### [facility] [address] [address] [address] Reji Thomas CBC AUTO DIFFon 03-22-2023 BASO # 0.1 103/ul Normal 0.0-0.1 [facility] Comment on above: Performed By: #### B MP #### [facility] [address] [address] [address] Reji Thomas Basophils/100 WBC (Bld) 1.0 % Normal 0.2-2.0 [facility] Comment on above: Performed By: #### B MP #### [facility] [address] [address] [address] Reji Thomas EO # 0.2 103/ul Normal 0.0-0.7 [facility] Comment on above: Performed By: #### B MP #### [facility] [address] [place] [address] Dr. Reji Thomas Eosinophils/100 WBC (Bld) 3.3 % Normal 0.9-7.0 [facility] Comment on above: Performed By: #### B MP #### [facility] [address] [place] [address] Dr. Reji Thomas Erythrocyte distribution width (RBC) [Ratio] 15.4 % Critically high 11.0-15.0 [facility] Comment on above: Performed By: #### B MP #### [facility] [address] [place] [address] Dr. Reji Thomas Hematocrit (Bld) [Volume fraction] 35.2 % Critically low 36.0-48.0 [facility] Comment on above: Performed By: #### B MP #### [facility] [address] [place] [address] Dr. Reji Thomas Hemoglobin (Bld) [Mass/Vol] 11.4 g/dL Critically low 12.0-16.0 [facility] Comment on above: Performed By: #### B MP #### [facility] [address] [place] [address] Dr. Reji Thomas IG # 0.02 10e3/ul Normal 0.00-0.03 [facility] Comment on above: Performed By: #### B MP #### [facility] [address] [place] [address] Dr. Reji Thomas IG % 0.3 % Normal 0.0-0.5 [facility] Comment on above: Performed By: #### B MP #### [facility] [address] [place] [address] Dr. Reji Thomas LYMPH # 1.4 103/ul Normal 1.2-3.[address] [facility] Comment on above: Performed By: #### B MP #### [facility] [address] [place] [address] Dr. Reji Thomas Lymphocytes/100 WBC (Bld) 22.6 % Normal 20.5-60.0 [facility] Comment on above: Performed By: #### B MP #### [facility] [address] [place] [address] Dr. Reji Thomas MANUAL DIFF REQ NO Normal [facility] Comment on above: Performed By: #### B MP #### [facility] [address] [place] [address] Dr. Reji Thomas MCH (RBC) [Entitic mass] 27.0 pg Normal 26.7-34.0 [facility] Comment on above: Performed By: #### B MP #### [facility] [address] [place] [address] Dr. Reji Thomas MCHC (RBC) [Mass/Vol] 32.4 g/dL Normal 29.9-35.2 [facility] Comment on above: Performed By: #### B MP #### [facility] [address] [place] [address] Dr. Reji Thomas MCV (RBC) [Entitic vol] 83.2 fL Normal 81.0-99.0 [facility] Comment on above: Performed By: #### B MP #### [facility] [address] [place] [address] Dr. Reji Thomas MONO # 0.5 103/ul Normal 0.3-0.8 [facility] Comment on above: Performed By: #### B MP #### [facility] [address] [place] [address] Dr. Reji Thomas Monocytes/100 WBC (Bld) 8.5 % Normal 1.7-12.0 [facility] Comment on above: Performed By: #### B MP #### [facility] [address] [place] [address] Dr. Reji Thomas NEUT # 4.0 103/ul Normal 1.4-6.[address] [facility] Comment on above: Performed By: #### B MP #### [facility] [address] [place] [address] Dr. Reji Thomas Neutrophils/100 WBC (Bld) 64.3 % Normal 43.0-75.0 [facility] Comment on above: Performed By: #### B MP #### [facility] [address] [address] [address] Reji Thomas Platelet mean volume (Bld) [Entitic vol] 8.9 fL Critically low 9.5-13.5 [facility] Comment on above: Performed By: #### B MP #### [facility] [address] [address] [address] Reji Thomas PLT 226 103/ul Normal 150-450 [facility] Comment on above: Performed By: #### B MP #### [facility] [address] [address] [address] Reji Thomas RBC 4.23 106/ul Normal 4.20-5.40 [facility] Comment on above: Performed By: #### B MP #### [facility] [address] [address] [address] Reji Thomas WBC 6.3 103/ul Normal 4.0-11.0 [facility] Comment on above: Performed By: #### B MP #### [facility] [address] [address] [address] Reji Thomas FREE THYROXINE INDEX T7on FTI 2.40 Normal 1.30-4.50 [facility] Comment on above: Performed By: #### B BUILDING TECH, CMP, TSH, LIPID #### [facility] [address] [address] [address] Reji Thomas T3U 32.0 % Normal 30.0-39.0 [facility] Comment on above: Performed By: #### B BUILDING TECH, CMP, TSH, LIPID #### [facility] [address] [address] [address] Reji Thomas T4 [Mass/Vol] 7.50 ug/dL Normal 4.80-13.90 [facility] Comment on above: Performed By: #### B BUILDING TECH, CMP, TSH, LIPID #### [facility] [address] [place] [address] Dr. Reji Thomas GLYCOHEMOGLOBIN A1Con 2022 ADA RECOMMENDATION SEE BELOW Normal [facility] Comment on above: Result Comment: ADA RECOMMENDED LIMIT 4.0 - 6.0 ADA THERAPEUTIC TARGET < 7.0 ACTION SUGGESTED > 7.0 Performed By: #### B BUILDING TECH, CMP, TSH, LIPID #### [facility] [address] [address] [address] Reji Thomas Glucose [Mass/Vol] 97 mg/dL Normal [facility] Comment on above: Performed By: #### B BUILDING TECH, CMP, TSH, LIPID #### [facility] [address] [address] [address] Reji Thomas HbA1c (Bld) [Mass fraction] 5.0 % Normal 4.5-6.2 [facility] Comment on above: Performed By: #### B BUILDING TECH, CMP, TSH, LIPID #### [facility] [address] [place] [address] Dr. Reji Thomas IRONon 03-22-2023 Iron [Mass/Vol] 47.0 ug/dL Critically low 50.0-170.0 [facility] Comment on above: Performed By: #### B BUILDING TECH, CMP, TSH, LIPID #### [facility] [address] [place] [address] Dr. Reji Thomas LIPID PROFILEon 03-22-2023 CHOL-HDL RATIO NORM SEE BELOW Normal [facility] Comment on above: Result Comment: 3.3 - 4.4 LOW RISK 4.4 - 7.1 AVERAGE RISK 7.1 - 11.0 MODERATE RISK >11.0 HIGH RISK Performed By: #### M G, TSH, LIPID, T7, CMP, BNP #### [facility] [address] [place] [address] Dr. Reji Thomas Cholesterol [Mass/Vol] 188 mg/dL Normal <=[address] [facility] Comment on above: Performed By: #### M G, TSH, LIPID, T7, CMP, BNP #### [facility] [address] [place] [address] Dr. Reji Thomas Cholesterol in HDL [Mass/Vol] 53 mg/dL Normal 40-[address] [facility] Comment on above: Performed By: #### M G, TSH, LIPID, T7, CMP, BNP #### [facility] [address] [address] [address] Reji Thomas Cholesterol in LDL [Mass/Vol] 111.6 mg/dL Normal [facility] Comment on above: Performed By: #### M G, TSH, LIPID, T7, CMP, BNP #### [facility] [address] [address] [address] Reji Thomas Cholesterol.total/Ch olesterol in HDL [Mass ratio] 3.5 {ratio} Normal [facility] Comment on above: Performed By: #### M G, TSH, LIPID, T7, CMP, BNP #### [facility] [address] [address] [address] Reji Thomas HDL NORMAL > or = 60 mg/dl - LOW CARDIOVASCULAR RISK <40 mg/dl - HIGH CARDIOVASCULAR RISK Normal [facility] Comment on above: Performed By: #### M G, TSH, LIPID, T7, CMP, BNP #### [facility] [address] [address] [address] Reji Thomas LDL CALC NORMAL SEE BELOW Normal [facility] Comment on above: Result Comment: <100 mg/dl OPTIMAL 100 - 129 mg/dl NEAR OR ABOVE OPTIMAL 130 - 159 mg/dl BORDERLINE HIGH 160 - 189 mg/dl HIGH >190 mg/dl VERY HIGH Performed By: #### M G, TSH, LIPID, T7, CMP, BNP #### [facility] [address] [address] [address] Reji Thomas Triglyceride [Mass/Vol] 117 mg/dL Normal <=[address] [facility] Comment on above: Performed By: #### M G, TSH, LIPID, T7, CMP, BNP #### [facility] [address] [address] [address] Reji Thomas VLDL CALC 23.4 mg/dL Normal [facility] Comment on above: Performed By: #### M G, TSH, LIPID, T7, CMP, BNP #### [facility] [address] [address] [address] Reji Thomas MAGNESIUMon 03-22-2023 Magnesium [Mass/Vol] 2.4 mg/dL Normal 1.8-2.4 [facility] Comment on above: Performed By: #### B BUILDING TECH, CMP, TSH, LIPID #### [facility] [address] [place] [address] Dr. Reji Thomas PROF 14(COMP METB)on 023 Albumin [Mass/Vol] 3.4 g/dL Normal 3.4-5.0 [facility] Comment on above: Performed By: #### M G, TSH, LIPID, T7, CMP, BNP #### [facility] [address] [place] [address] Dr. Reji Thomas Albumin/Globulin [Mass ratio] 0.8 {ratio} Normal [facility] Comment on above: Performed By: #### M G, TSH, LIPID, T7, CMP, BNP #### [facility] [address] [place] [address] Dr. Reji Thomas ALP [Catalytic activity/Vol] 61 U/L Normal 46-116 [facility] Comment on above: Performed By: #### M G, TSH, LIPID, T7, CMP, BNP #### [facility] [address] [place] [address] Dr. Reji Thomas ALT [Catalytic activity/Vol] 15 U/L Normal 14-59 [facility] Comment on above: Performed By: #### M G, TSH, LIPID, T7, CMP, BNP #### [facility] [address] [place] [address] Dr. Reji Thomas Anion gap [Moles/Vol] 13.1 mmol/L Normal [facility] Comment on above: Performed By: #### M G, TSH, LIPID, T7, CMP, BNP #### [facility] [address] [place] [address] Dr. Reji Thomas AST [Catalytic activity/Vol] 13 U/L Critically low 15-37 [facility] Comment on above: Performed By: #### M G, TSH, LIPID, T7, CMP, BNP #### [facility] [address] [place] [address] Dr. Reji Thomas Bilirubin [Mass/Vol] 0.4 mg/dL Normal 0.2-1.0 [facility] Comment on above: Performed By: #### M G, TSH, LIPID, T7, CMP, BNP #### [facility] [address] [address] [address] Reji Thomas Calcium [Mass/Vol] 8.5 mg/dL Normal 8.5-10.1 [facility] Comment on above: Performed By: #### M G, TSH, LIPID, T7, CMP, BNP #### [facility] [address] [address] [address] Reji Thomas Chloride [Moles/Vol] 106 mmol/L Normal 98-[address] [facility] Comment on above: Performed By: #### M G, TSH, LIPID, T7, CMP, BNP #### [facility] [address] [address] [address] Reji Thomas CO2 [Moles/Vol] 27.6 mmol/L Normal 21.0-32.0 [facility] Comment on above: Performed By: #### M G, TSH, LIPID, T7, CMP, BNP #### [facility] [address] [address] [address] Reji Thomas Creatinine [Mass/Vol] 2.32 mg/dL Critically high 0.55-1.02 [facility] Comment on above: Performed By: #### M G, TSH, LIPID, T7, CMP, BNP #### [facility] [address] [place] [address] Dr. Reji Thomas EGFR-AF ARGENTINE 24 mL/min/1.73m2 Critically low >=[address] [facility] Comment on above: Performed By: #### M G, TSH, LIPID, T7, CMP, BNP #### [facility] [address] [address] [address] Reji Thomas EGFR-NON AF ARGENTINE 20 mL/min/1.73m2 Critically low >=[address] [facility] Comment on above: Performed By: #### M G, TSH, LIPID, T7, CMP, BNP #### [facility] [address] [address] [address] Reji Thomas Globulin (S) [Mass/Vol] 4.3 g/dL Normal [facility] Comment on above: Performed By: #### M G, TSH, LIPID, T7, CMP, BNP #### [facility] [address] [address] [address] Reji Thomas Glucose [Mass/Vol] 88 mg/dL Normal 74-106 [facility] Comment on above: Performed By: #### M G, TSH, LIPID, T7, CMP, BNP #### [facility] [address] [address] [address] Reji Thomas Potassium [Moles/Vol] 4.7 mmol/L Normal 3.5-5.[address] [facility] Comment on above: Performed By: #### M G, TSH, LIPID, T7, CMP, BNP #### [facility] [address] [place] [address] Dr. Reji Thomas Protein [Mass/Vol] 7.7 g/dL Normal 6.4-8.2 [facility] Comment on above: Performed By: #### M G, TSH, LIPID, T7, CMP, BNP #### [facility] [address] [address] [address] Reji Thomas Sodium [Moles/Vol] 142 mmol/L Normal 136-145 [facility] Comment on above: Performed By: #### M G, TSH, LIPID, T7, CMP, BNP #### [facility] [address] [place] [address] Dr. Reji Thomas Urea nitrogen [Mass/Vol] 38.0 mg/dL Critically high 7.0-18.[address] [facility] Comment on above: Performed By: #### M G, TSH, LIPID, T7, CMP, BNP #### [facility] [address] [place] [address] Dr. Reji Thomas Urea nitrogen/Creatinine [Mass ratio] 16.4 mg/mg Normal [facility] Comment on above: Performed By: #### M G, TSH, LIPID, T7, CMP, BNP #### [facility] [address] [address] [address] Reji Thomas PROTIMEon 03-22-2023 INR Coag (PPP) [Relative time] 1.98 {INR} Normal [facility] Comment on above: Performed By: #### P T #### [facility] [address] [place] [address] Dr. Reji Thomas INR GUIDELINES SEE BELOW Normal [facility] Comment on above: Result Comment: SHY RED INR: 2.0 - 3.0 CONDITIONS NOT LISTED BELOW 2.5 - 3.5 FOR PROSTHETIC HEART VALVE REPLACEMENT 2.5 - 3.5 RECURRENT THROMBOSIS Performed By: #### P T #### [facility] [address] [place] [address] Dr. Reji Thomas PT Coag (PPP) [Time] 20.2 s Critically high 9.0-11.[address] [facility] Comment on above: Performed By: #### P T #### [facility] [address] [place] [address] Dr. Reji Thomas TSHon 03-22-2023 TSH 2.265 uIU/mL Normal 0.358-3.740 [facility] Comment on above: Performed By: #### B BUILDING TECH, CMP, TSH, LIPID #### [facility] [address] [place] [address] Dr. Reji Thomas VITAMIN D 25 OHon 03-22-2023 VIT D 25-OH 53.1 ng/mL Normal [facility] Comment on above: Performed By: #### B MP #### [facility] [address] [place] [address] Dr. Reji Thomas VIT D RANGES SEE BELOW Normal [facility] Comment on above: Result Comment: <20 ng/mL Vit D deficient 20 - <30 ng/mL Vit D insufficient 30 - 100 ng/mL Vit D sufficient >100 ng/mL Potential Toxicity Performed By: #### B MP #### [facility] [address] [place] [address] Dr. Reji Thomas PROTIMEon 02-22-2023 INR Coag (PPP) [Relative time] 2.22 {INR} Normal [facility] Comment on above: Performed By: #### B BUILDING TECH, CMP, TSH, LIPID #### [facility] [address] [place] [address] Dr. Reji Thomas INR GUIDELINES SEE BELOW Normal [facility] Comment on above: Result Comment: SHY RED INR: 2.0 - 3.0 CONDITIONS NOT LISTED BELOW 2.5 - 3.5 FOR PROSTHETIC HEART VALVE REPLACEMENT 2.5 - 3.5 RECURRENT THROMBOSIS Performed By: #### B BUILDING TECH, CMP, TSH, LIPID #### [facility] [address] [place] [address] Dr. Reji Thomas PT Coag (PPP) [Time] 22.5 s Critically high 9.0-11.6 [facility] Comment on above: Performed By: #### B BUILDING TECH, CMP, TSH, LIPID #### [facility] [address] [place] [address] Dr. Reji Thomas PROTIMEon 01-03-2023 INR Coag (PPP) [Relative time] 2.53 {INR} Normal [facility] Comment on above: Performed By: #### B MP #### [facility] [address] [place] [address] Dr. Reji Thomas INR GUIDELINES SEE BELOW Normal [facility] Comment on above: Result Comment: SHY RED INR: 2.0 - 3.0 CONDITIONS NOT LISTED BELOW 2.5 - 3.5 FOR PROSTHETIC HEART VALVE REPLACEMENT 2.5 - 3.5 RECURRENT THROMBOSIS Performed By: #### B MP #### [facility] [address] [place] [address] Dr. Reji Thomas PT Coag (PPP) [Time] 25.4 s Critically high 9.0-11.6 [facility] Comment on above: Performed By: #### B MP #### [facility] [address] [place] [address] Dr. Reji Thomas PROTIMEon 11-23-2022 INR Coag (PPP) [Relative time] 1.71 {INR} Normal [facility] Comment on above: Performed By: #### B BUILDING TECH, CMP, TSH, LIPID #### [facility] [address] [place] [address] Dr. Reji Thomas INR GUIDELINES SEE BELOW Normal [facility] Comment on above: Result Comment: SHY RED INR: 2.0 - 3.0 CONDITIONS NOT LISTED BELOW 2.5 - 3.5 FOR PROSTHETIC HEART VALVE REPLACEMENT 2.5 - 3.5 RECURRENT THROMBOSIS Performed By: #### B BUILDING TECH, CMP, TSH, LIPID #### [facility] [address] [place] [address] Dr. Reji Thomas PT Coag (PPP) [Time] 17.6 s Critically high 9.0-11.6 [facility] Comment on above: Performed By: #### B BUILDING TECH, CMP, TSH, LIPID #### [facility] [address] [place] [address] Dr. Reji Thomas PROTIMEon 10-10-2022 INR Coag (PPP) [Relative time] 2.52 {INR} Normal [facility] Comment on above: Performed By: #### B BUILDING TECH, CMP, TSH, LIPID #### [facility] [address] [place] [address] Dr. Reji Thomas INR GUIDELINES SEE BELOW Normal [facility] Comment on above: Result Comment: SHY RED INR: 2.0 - 3.0 CONDITIONS NOT LISTED BELOW 2.5 - 3.5 FOR PROSTHETIC HEART VALVE REPLACEMENT 2.5 - 3.5 RECURRENT THROMBOSIS Performed By: #### B BUILDING TECH, CMP, TSH, LIPID #### [facility] [address] [place] [address] Dr. Reji Thomas PT Coag (PPP) [Time] 25.6 s Critically high 9.0-11.6 [facility] Comment on above: Performed By: #### B BUILDING TECH, CMP, TSH, LIPID #### [facility] [address] [place] [address] Dr. Reji Thomas PROTIMEon 09-05-2022 INR Coag (PPP) [Relative time] 2.03 {INR} Normal [facility] Comment on above: Performed By: #### B BUILDING TECH, CMP, TSH, LIPID #### [facility] [address] [place] [address] Dr. Reji Thomas INR GUIDELINES SEE BELOW Normal [facility] Comment on above: Result Comment: SHY RED INR: 2.0 - 3.0 CONDITIONS NOT LISTED BELOW 2.5 - 3.5 FOR PROSTHETIC HEART VALVE REPLACEMENT 2.5 - 3.5 RECURRENT THROMBOSIS Performed By: #### B BUILDING TECH, CMP, TSH, LIPID #### [facility] [address] [place] [address] Dr. Reji Thomas PT Coag (PPP) [Time] 20.9 s Critically high 9.0-11.6 [facility] Comment on above: Performed By: #### B BUILDING TECH, CMP, TSH, LIPID #### [facility] [address] [place] [address] Dr. Reji Thomas BNPon 08-10-2022 Natriuretic peptide B (Bld) [Mass/Vol] 1162.0 pg/mL Normal <=1,800.0 [facility] Comment on above: Performed By: #### B MP, BNP #### [facility] [address] [place] [address] Dr. Reji Thomas PROF CHEM 8 (BAS METB)on Anion gap [Moles/Vol] 11.3 mmol/L Normal [facility] Comment on above: Performed By: #### B MP, BNP #### [facility] [address] [place] [address] Dr. Reji Thomas Calcium [Mass/Vol] 8.9 mg/dL Normal 8.5-10.1 [facility] Comment on above: Performed By: #### B MP, BNP #### [facility] [address] [place] [address] Dr. Reji Thomas Chloride [Moles/Vol] 103 mmol/L Normal 98-107 [facility] Comment on above: Performed By: #### B MP, BNP #### [facility] [address] [place] [address] Dr. Reji Thomas CO2 [Moles/Vol] 28.2 mmol/L Normal 21.0-32.0 [facility] Comment on above: Performed By: #### B MP, BNP #### [facility] [address] [place] [address] Dr. Reji Thomas Creatinine [Mass/Vol] 2.07 mg/dL Critically high 0.55-1.02 [facility] Comment on above: Performed By: #### B MP, BNP #### [facility] [address] [address] [address] Reji Thomas EGFR-AF ARGENTINE 28 mL/min/1.73m2 Critically low >=60 [facility] Comment on above: Performed By: #### B MP, BNP #### [facility] [address] [address] [address] Reji Thomas EGFR-NON AF ARGENTINE 23 mL/min/1.73m2 Critically low >=60 [facility] Comment on above: Performed By: #### B MP, BNP #### [facility] [address] [address] [address] Reji Thomas Glucose [Mass/Vol] 88 mg/dL Normal 74-106 [facility] Comment on above: Performed By: #### B MP, BNP #### [facility] [address] [address] [address] Reji Thomas Potassium [Moles/Vol] 4.5 mmol/L Normal 3.5-5.1 [facility] Comment on above: Performed By: #### B MP, BNP #### [facility] [address] [address] [address] Reji Thomas Sodium [Moles/Vol] 138 mmol/L Normal 136-145 [facility] Comment on above: Performed By: #### B MP, BNP #### [facility] [address] [address] [address] Reji Thomas Urea nitrogen [Mass/Vol] 35.0 mg/dL Critically high 7.0-18.0 [facility] Comment on above: Performed By: #### B MP, BNP #### [facility] [address] [address] [address] Reji Thomas Urea nitrogen/Creatinine [Mass ratio] 16.9 mg/mg Normal [facility] Comment on above: Performed By: #### B MP, BNP #### [facility] [address] [address] [address] Reji Thomas PROTIMEon 08-09-2022 INR Coag (PPP) [Relative time] 2.04 {INR} Normal [facility] Comment on above: Performed By: #### B BUILDING TECH, CMP, TSH, LIPID #### [facility] [address] [place] [address] Dr. Reji Thomas INR GUIDELINES SEE BELOW Normal [facility] Comment on above: Result Comment: SHY RED INR: 2.0 - 3.0 CONDITIONS NOT LISTED BELOW 2.5 - 3.5 FOR PROSTHETIC HEART VALVE REPLACEMENT 2.5 - 3.5 RECURRENT THROMBOSIS Performed By: #### B BUILDING TECH, CMP, TSH, LIPID #### [facility] [address] [place] [address] Dr. Reji Thomas PT Coag (PPP) [Time] 21.0 s Critically high 9.0-11.[address] [facility] Comment on above: Performed By: #### B BUILDING TECH, CMP, TSH, LIPID #### [facility] [address] [place] [address] Dr. Reji Thomas BNPon 07-09-2022 Natriuretic peptide B (Bld) [Mass/Vol] 2085.0 pg/mL Critically high <=1,800.0 [facility] Comment on above: Result Comment: CRIT ICAL CALLED TO OFFICE ON 07-10-22 AT 0850 BY AR Performed By: #### B BUILDING TECH, CMP, TSH, LIPID #### [facility] [address] [place] [address] Dr. Reji Thomas PROF CHEM 8 (BAS METB)on Anion gap [Moles/Vol] 13.7 mmol/L Normal [facility] Comment on above: Performed By: #### B BUILDING TECH, CMP, TSH, LIPID #### [facility] [address] [place] [address] Dr. Reji Thomas Calcium [Mass/Vol] 8.3 mg/dL Critically low 8.5-10.1 [facility] Comment on above: Performed By: #### B BUILDING TECH, CMP, TSH, LIPID #### [facility] [address] [place] [address] Dr. Reji Thomas Chloride [Moles/Vol] 104 mmol/L Normal 98-107 [facility] Comment on above: Performed By: #### B BUILDING TECH, CMP, TSH, LIPID #### [facility] [address] [address] [address] Reji Thomas CO2 [Moles/Vol] 26.6 mmol/L Normal 21.0-32.0 [facility] Comment on above: Performed By: #### B BUILDING TECH, CMP, TSH, LIPID #### [facility] [address] [address] [address] Reji Thomas Creatinine [Mass/Vol] 1.98 mg/dL Critically high 0.55-1.02 [facility] Comment on above: Performed By: #### B BUILDING TECH, CMP, TSH, LIPID #### [facility] [address] [place] [address] Dr. Reji Thomas EGFR-AF ARGENTINE 29 mL/min/1.73m2 Critically low >=60 [facility] Comment on above: Performed By: #### B BUILDING TECH, CMP, TSH, LIPID #### [facility] [address] [place] [address] Dr. Reji Thomas EGFR-NON AF ARGENTINE 24 mL/min/1.73m2 Critically low >=60 [facility] Comment on above: Performed By: #### B BUILDING TECH, CMP, TSH, LIPID #### [facility] [address] [place] [address] Dr. Reji Thomas Glucose [Mass/Vol] 116 mg/dL Critically high 74-106 [facility] Comment on above: Performed By: #### B BUILDING TECH, CMP, TSH, LIPID #### [facility] [address] [place] [address] Dr. Reji Thomas Potassium [Moles/Vol] 4.3 mmol/L Normal 3.5-5.1 [facility] Comment on above: Performed By: #### B BUILDING TECH, CMP, TSH, LIPID #### [facility] [address] [place] [address] Dr. Reji Thomas Sodium [Moles/Vol] 140 mmol/L Normal 136-145 [facility] Comment on above: Performed By: #### B BUILDING TECH, CMP, TSH, LIPID #### [facility] [address] [place] [address] Dr. Reji Thomas Urea nitrogen [Mass/Vol] 35.0 mg/dL Critically high 7.0-18.0 [facility] Comment on above: Performed By: #### B BUILDING TECH, CMP, TSH, LIPID #### [facility] [address] [place] [address] Dr. Reji Thomas Urea nitrogen/Creatinine [Mass ratio] 17.7 mg/mg Normal [facility] Comment on above: Performed By: #### B BUILDING TECH, CMP, TSH, LIPID #### [facility] [address] [place] [address] Dr. Reji Thomas PROTIMEon 07-09-2022 INR Coag (PPP) [Relative time] 2.99 {INR} Normal [facility] Comment on above: Performed By: #### B BUILDING TECH, CMP, TSH, LIPID #### [facility] [address] [place] [address] Dr. Reji Thomas INR GUIDELINES SEE BELOW Normal [facility] Comment on above: Result Comment: SHY RED INR: 2.0 - 3.0 CONDITIONS NOT LISTED BELOW 2.5 - 3.5 FOR PROSTHETIC HEART VALVE REPLACEMENT 2.5 - 3.5 RECURRENT THROMBOSIS Performed By: #### B BUILDING TECH, CMP, TSH, LIPID #### [facility] [address] [place] [address] Dr. Reji Thomas PT Coag (PPP) [Time] 30.1 s Critically high 9.0-11.6 [facility] Comment on above: Performed By: #### B BUILDING TECH, CMP, TSH, LIPID #### [facility] [address] [place] [address] Dr. Reji Thomas US KIDNEYSon 07-06-2022 US [...] by: SIGRID RICHMOND Date: 2022-07-06 13:31 Normal [facility] EVAN Antinuclear Antibodieson 06-19-2022 Antinuclear Abs, IFA Positive Critically abnormal . [facility] Comment on above: Result Comment: Nega tive <1:80 Borderline 1:80 Positive >1:80 Performed By: #### Krista CHOW ADDONUAPLUS #### [facility] [address] [place] [address] #### C3, C4, CH50 #### [facility] , Homogeneous Pattern 1:320 High . [facility] Comment on above: Result Comment: ICAP nomenclature: [id number] Performed By: #### C UJoel, ADDONUAPLUS #### [facility] [address] [place] [address] #### C3, C4, CH50 #### [facility] , Note 1 Normal . [facility] Comment on above: Result Comment: For [...] titers Nucleosomes, Histones Drug-induced SLE Speckled Sm, ANNUAL GIVING OFFICER, SCL-70, SLE,MCTD,PSS (diffuse form), SS-A/SS-B Sjogrens Nucleolar SCL-70, PM-1/SCL High titers Scleroderma, PM/DM Centromere Centromere PSS (limited form) w/Crest syndrome variable Nuclear Dot [id number] Primary Biliary Cirrhosis Nuclear GP210, Primary Biliary Cirrhosis Membrane eleonora A,B,C Performed at: [address] [id number] Noise Abatement Engineer: Demarcus Lawton PhD, Phone: [phone] Performed By: #### C UU, ADDONUAPLUS #### [address] #### C3, C4, CH50 #### [facility] , Anti-RNPon 06-19-2022 Anti-ANNUAL GIVING OFFICER 0.4 Normal 0.0-0.9 [facility] Comment on above: Result Comment: Perf ormed at: [address] [id number] Noise Abatement Engineer: Demarcus Lawton PhD, Phone: [phone] Performed By: #### C UU, ADDONUAPLUS #### [address] #### C3, C4, CH50 #### [facility] , C-Reactive Proteinon 022 C-Reactive Protein 2.0 mg/dL High 0.0-1.0 [facility] Comment on above: Result Comment: PERF ORMED BY: [place] [address] PATHOLOGIST HOME MANAGEMENT SUPERVISOR RADHA BULLARD M.D. Performed By: #### C UU, ADDONUAPLUS #### [address] #### C3, C4, CH50 #### [facility] , Complement C3on 06-19-2022 Complement C3 167 mg/dL Normal 82-167 [facility] Comment on above: Result Comment: Perf ormed at: [address] [place] [address] Noise Abatement Engineer: Demarcus Lawton PhD, Phone: [phone] Performed By: #### C UU, ADDONUAPLUS #### [facility] [address] #### C3, C4, CH50 #### [facility] , Complement C4on 06-19-2022 Complement C4 37 mg/dL Normal 12-38 [facility] Comment on above: Performed By: #### C UU, ADDONUAPLUS #### [address] #### C3, C4, CH50 #### [facility] , Complement Total (CH50)on Complement Total (CH50) >60 Normal >41 [facility] Comment on above: Result Comment: Age [...] range values. Performed at: - [facility] [address] [id number] Noise Abatement Engineer: Demarcus Lawton PhD, Phone: [phone] PERFORMED BY: [place] [address] PATHOLOGIST HOME MANAGEMENT SUPERVISOR RADHA BULLARD M.D. Performed By: #### C UU, ADDONUAPLUS #### [address] #### C3, C4, CH50 #### [facility] , Complete Blood Count Auto Di ffon 06-19-2022 Basophils (Bld) [#/Vol] 0.1 10*3/uL Normal 0.0-0.2 [facility] Comment on above: Performed By: #### H EPATIC, CBC, ESR, CRP, CREAT, CK #### [address] #### RNA POLYMR, ANTI TH TO, EVAN, U3 ANNUAL GIVING OFFICER, ANTIR, PM-SCL ABS #### [facility] , Basophils/100 WBC (Bld) 0.9 % Normal . [facility] Comment on above: Performed By: #### H EPATIC, CBC, ESR, CRP, CREAT, CK #### [address] #### RNA POLYMR, ANTI TH TO, EVAN, U3 ANNUAL GIVING OFFICER, ANTIR, PM-SCL ABS #### [facility] , Eosinophils (Bld) [#/Vol] 0.5 10*3/uL High 0.0-0.45 [facility] Comment on above: Performed By: #### H EPATIC, CBC, ESR, CRP, CREAT, CK #### [address] #### RNA POLYMR, ANTI TH TO, EVAN, U3 ANNUAL GIVING OFFICER, ANTIR, PM-SCL ABS #### [facility] , Eosinophils/100 WBC (Bld) 8.6 % Normal . [facility] Comment on above: Performed By: #### H EPATIC, CBC, ESR, CRP, CREAT, CK #### [place] [address] [place] #### RNA POLYMR, ANTI TH TO, EVAN, U3 ANNUAL GIVING OFFICER, ANTIR, PM-SCL ABS #### [facility] , Erythrocyte distribution width (RBC) [Ratio] 19.6 % High 11.9-15.3 [facility] Comment on above: Performed By: #### H EPATIC, CBC, ESR, CRP, CREAT, CK #### [place] [address] [place] #### RNA POLYMR, ANTI TH TO, EVAN, U3 ANNUAL GIVING OFFICER, ANTIR, PM-SCL ABS #### [facility] , Hematocrit (Bld) [Volume fraction] 33.8 % Low 34.0-46.4 [facility] Comment on above: Performed By: #### H EPATIC, CBC, ESR, CRP, CREAT, CK #### [place] [address] [place] #### RNA POLYMR, ANTI TH TO, EVAN, U3 ANNUAL GIVING OFFICER, ANTIR, PM-SCL ABS #### [facility] , Hemoglobin (Bld) [Mass/Vol] 10.9 g/dL Low 11.8-15.4 [facility] Comment on above: Performed By: #### H EPATIC, CBC, ESR, CRP, CREAT, CK #### [place] [address] [place] #### RNA POLYMR, ANTI TH TO, EVAN, U3 ANNUAL GIVING OFFICER, ANTIR, PM-SCL ABS #### [facility] , Lymphocytes (Bld) [#/Vol] 1.1 10*3/uL Normal 1.00-4.8 [facility] Comment on above: Performed By: #### H EPATIC, CBC, ESR, CRP, CREAT, CK #### [place] [address] [place] #### RNA POLYMR, ANTI TH TO, EVAN, U3 ANNUAL GIVING OFFICER, ANTIR, PM-SCL ABS #### [facility] , Lymphocytes/100 WBC (Bld) 17.8 % Normal . [facility] Comment on above: Performed By: #### H EPATIC, CBC, ESR, CRP, CREAT, CK #### [place] [address] [place] #### RNA POLYMR, ANTI TH TO, EVAN, U3 ANNUAL GIVING OFFICER, ANTIR, PM-SCL ABS #### [facility] , MCH (RBC) [Entitic mass] 26.4 pg Normal 24.7-34.3 [facility] Comment on above: Performed By: #### H EPATIC, CBC, ESR, CRP, CREAT, CK #### [place] [address] [place] #### RNA POLYMR, ANTI TH TO, EVAN, U3 ANNUAL GIVING OFFICER, ANTIR, PM-SCL ABS #### [facility] , MCV (RBC) [Entitic vol] 81.8 fL Normal 80-100 [facility] Comment on above: Performed By: #### H EPATIC, CBC, ESR, CRP, CREAT, CK #### [address] #### RNA POLYMR, ANTI TH TO, EVAN, U3 ANNUAL GIVING OFFICER, ANTIR, PM-SCL ABS #### [facility] , Mean Corpuscular HGB Conc 32.3 g/dL Normal 32.0-35.0 [facility] Comment on above: Performed By: #### H EPATIC, CBC, ESR, CRP, CREAT, CK #### [address] #### RNA POLYMR, ANTI TH TO, EVAN, U3 ANNUAL GIVING OFFICER, ANTIR, PM-SCL ABS #### [facility] , Monocytes (Bld) [#/Vol] 0.4 10*3/uL Normal 0.0-0.8 [facility] Comment on above: Performed By: #### H EPATIC, CBC, ESR, CRP, CREAT, CK #### [address] #### RNA POLYMR, ANTI TH TO, EVAN, U3 ANNUAL GIVING OFFICER, ANTIR, PM-SCL ABS #### [facility] , Monocytes/100 WBC (Bld) 7.4 % Normal . [facility] Comment on above: Performed By: #### H EPATIC, CBC, ESR, CRP, CREAT, CK #### [place] [address] [place] #### RNA POLYMR, ANTI TH TO, EVAN, U3 ANNUAL GIVING OFFICER, ANTIR, PM-SCL ABS #### [facility] , Neutrophils (Bld) [#/Vol] 3.9 10*3/uL Normal 1.8-7.7 [facility] Comment on above: Performed By: #### H EPATIC, CBC, ESR, CRP, CREAT, CK #### [place] [address] [place] #### RNA POLYMR, ANTI TH TO, EVAN, U3 ANNUAL GIVING OFFICER, ANTIR, PM-SCL ABS #### [facility] , Neutrophils/100 WBC (Bld) 65.3 % Normal . [facility] Comment on above: Performed By: #### H EPATIC, CBC, ESR, CRP, CREAT, CK #### [place] [address] [place] #### RNA POLYMR, ANTI TH TO, EVAN, U3 ANNUAL GIVING OFFICER, ANTIR, PM-SCL ABS #### [facility] , Nucleated RBC/100 WBC (Bld) [Ratio] 0.0 % Normal 0-0.5 [facility] Comment on above: Performed By: #### H EPATIC, CBC, ESR, CRP, CREAT, CK #### [place] [address] [place] #### RNA POLYMR, ANTI TH TO, EVAN, U3 ANNUAL GIVING OFFICER, ANTIR, PM-SCL ABS #### [facility] , Platelet mean volume (Bld) [Entitic vol] 7.2 fL Normal 6.3-10.7 [facility] Comment on above: Performed By: #### H EPATIC, CBC, ESR, CRP, CREAT, CK #### [place] [address] [place] #### RNA POLYMR, ANTI TH TO, EVAN, U3 ANNUAL GIVING OFFICER, ANTIR, PM-SCL ABS #### [facility] , Platelets (Bld) [#/Vol] 237 10*3/uL Normal 150-450 [facility] Comment on above: Performed By: #### H EPATIC, CBC, ESR, CRP, CREAT, CK #### [place] [address] [place] #### RNA POLYMR, ANTI TH TO, EVAN, U3 ANNUAL GIVING OFFICER, ANTIR, PM-SCL ABS #### [facility] , RBC (Bld) [#/Vol] 4.14 10*6/uL Normal 3.60-5.00 [facility] Comment on above: Performed By: #### H EPATIC, CBC, ESR, CRP, CREAT, CK #### [address] #### RNA POLYMR, ANTI TH TO, EVAN, U3 ANNUAL GIVING OFFICER, ANTIR, PM-SCL ABS #### [facility] , WBC (Bld) [#/Vol] 6.0 10*3/uL Normal 4.5-11.0 [facility] Comment on above: Performed By: #### H EPATIC, CBC, ESR, CRP, CREAT, CK #### [address] #### RNA POLYMR, ANTI TH TO, EVAN, U3 ANNUAL GIVING OFFICER, ANTIR, PM-SCL ABS #### [facility] , Creatine Kinaseon 06-19-2022 CK [Catalytic activity/Vol] 38 U/L Normal 22-269 [facility] Comment on above: Result Comment: PERF ORMED BY: [place] [address] PATHOLOGIST HOME MANAGEMENT SUPERVISOR RADHA BULLARD M.D. Performed By: #### H EPATIC, CBC, ESR, CRP, CREAT, CK #### [address] #### RNA POLYMR, ANTI TH TO, EVAN, U3 ANNUAL GIVING OFFICER, ANTIR, PM-SCL ABS #### [facility] , Creatinineon 06-19-2022 Creatinine [Mass/Vol] 2.82 mg/dL High 0.44-1.03 [facility] Comment on above: Performed By: #### H EPATIC, CBC, ESR, CRP, CREAT, CK #### [place] [address] [place] #### RNA POLYMR, ANTI TH TO, EVAN, U3 ANNUAL GIVING OFFICER, ANTIR, PM-SCL ABS #### [facility] , Estimated GFR ( Oralia 19 Normal [facility] Comment on above: Result Comment: GFR estimated reference range: According to KDOQI guidelines, <60 ml/min/1.73m2 is sufficient to diagnose a patient with chronic kidney disease. Performed By: #### H EPATIC, CBC, ESR, CRP, CREAT, CK #### [facility] [address] [place] [address] [place] #### RNA POLYMR, ANTI TH TO, EVAN, U3 ANNUAL GIVING OFFICER, ANTIR, PM-SCL ABS #### [facility] , Estimated GFR (Non- Am 16 Normal [facility] Comment on above: Performed By: #### H EPATIC, CBC, ESR, CRP, CREAT, CK #### [address] #### RNA POLYMR, ANTI TH TO, EVAN, U3 ANNUAL GIVING OFFICER, ANTIR, PM-SCL ABS #### [facility] , Dipstick and Microscopicon 0 06-19-2022 Appearance (U) Cloudy Critically abnormal Clear [facility] Comment on above: Order Comment: Name Collection Type:: Clean-Voided Midstream Performed By: #### C UU, ADDONUAPLUS #### [address] #### C3, C4, CH50 #### [facility] , Bacteria,Urine 1+ High None Seen [facility] Comment on above: Order Comment: Name Collection Type:: Clean-Voided Midstream Performed By: #### C UU, ADDONUAPLUS #### [place] [address] [place] #### C3, C4, CH50 #### [facility] , Bilirubin,Urine Negative Normal Negative [facility] Comment on above: Order Comment: Name Collection Type:: Clean-Voided Midstream Performed By: #### C UU, ADDONUAPLUS #### [place] [address] [place] #### C3, C4, CH50 #### [facility] , Color (U) Yellow Normal Yellow [facility] Comment on above: Order Comment: Name Collection Type:: Clean-Voided Midstream Performed By: #### C UU, ADDONUAPLUS #### [facility] [address] [place] [address] #### C3, C4, CH50 #### [facility] , Glucose Ql (U) Normal Normal Normal [facility] Comment on above: Order Comment: Name Collection Type:: Clean-Voided Midstream Performed By: #### C UU, ADDONUAPLUS #### [address] #### C3, C4, CH50 #### [facility] , Hyaline Casts,Urine 1-2 Normal 0-8 [facility] Comment on above: Order Comment: Name Collection Type:: Clean-Voided Midstream Result Comment: PERF ORMED BY: [place] [address] PATHOLOGIST HOME MANAGEMENT SUPERVISOR RADHA BULLARD M.D. Performed By: #### C UU, ADDONUAPLUS #### [address] #### C3, C4, CH50 #### [facility] , Ketones Ql (U) Negative Normal Negative [facility] Comment on above: Order Comment: Name Collection Type:: Clean-Voided Midstream Performed By: #### C UU, ADDONUAPLUS #### [facility] [address] [place] [address] #### C3, C4, CH50 #### [facility] , Leukocyte esterase Test strip Ql (U) 4+ High Negative [facility] Comment on above: Order Comment: Name Collection Type:: Clean-Voided Midstream Performed By: #### C UU, ADDONUAPLUS #### [address] #### C3, C4, CH50 #### [facility] , Nitrite,Urine Negative Normal Negative [facility] Comment on above: Order Comment: Name Collection Type:: Clean-Voided Midstream Performed By: #### C UU, ADDONUAPLUS #### [address] #### C3, C4, CH50 #### [facility] , Occult Blood,Urine 1+ High Negative [facility] Comment on above: Order Comment: Name Collection Type:: Clean-Voided Midstream Performed By: #### C UU, ADDONUAPLUS #### [address] #### C3, C4, CH50 #### [facility] , pH (U) 6.5 [pH] Normal 5.0-9.0 [facility] Comment on above: Order Comment: Name Collection Type:: Clean-Voided Midstream Performed By: #### C UU, ADDONUAPLUS #### [address] #### C3, C4, CH50 #### [facility] , Protein,Urine Trace High Negative [facility] Comment on above: Order Comment: Name Collection Type:: Clean-Voided Midstream Performed By: #### C UU, ADDONUAPLUS #### [address] #### C3, C4, CH50 #### [facility] , RBC,Urine 1-2 Normal 0-4 [facility] Comment on above: Order Comment: Name Collection Type:: Clean-Voided Midstream Performed By: #### C UU, ADDONUAPLUS #### [address] #### C3, C4, CH50 #### [facility] , Specificy [place],Urine 1.010 Normal 1.001-1.030 [facility] Comment on above: Order Comment: Name Collection Type:: Clean-Voided Midstream Performed By: #### C UU, ADDONUAPLUS #### [address] #### C3, C4, CH50 #### [facility] , Squamous Epithelial Cell,Urine 5-9 High 0-2 [facility] Comment on above: Order Comment: Name Collection Type:: Clean-Voided Midstream Performed By: #### C UU, ADDONUAPLUS #### [address] #### C3, C4, CH50 #### [facility] , Urobilinogen,Urine Normal Normal Normal [facility] Comment on above: Order Comment: Name Collection Type:: Clean-Voided Midstream Performed By: #### C UU, ADDONUAPLUS #### [address] #### C3, C4, CH50 #### [facility] , WBC,Urine Innumerable High 0-4 [facility] Comment on above: Order Comment: Name Collection Type:: Clean-Voided Midstream Performed By: #### C UU, ADDONUAPLUS #### [address] #### C3, C4, CH50 #### [facility] , Erythrocyte Sedimentation Ra pratik 06-19-2022 ESR (Bld) [Velocity] 57 mm/h High 0-29 [facility] Comment on above: Result Comment: PERF ORMED BY: [place] [address] PATHOLOGIST HOME MANAGEMENT SUPERVISOR RADHA BULLARD M.D. Performed By: #### H EPATIC, CBC, ESR, CRP, CREAT, CK #### [facility] [address] [place] [address] [place] #### RNA POLYMR, ANTI TH TO, EVAN, U3 ANNUAL GIVING OFFICER, ANTIR, PM-SCL ABS #### [facility] , Hepatic Panelon 06-19-2022 Albumin [Mass/Vol] 3.6 g/dL Normal 3.2-5.5 [facility] Comment on above: Performed By: #### H EPATIC, CBC, ESR, CRP, CREAT, CK #### [facility] [address] [place] [address] [place] #### RNA POLYMR, ANTI TH TO, EVAN, U3 ANNUAL GIVING OFFICER, ANTIR, PM-SCL ABS #### [facility] , Albumin/Globulin [Mass ratio] 1.0 {ratio} Normal [facility] Comment on above: Performed By: #### H EPATIC, CBC, ESR, CRP, CREAT, CK #### [facility] [address] [place] [address] [place] #### RNA POLYMR, ANTI TH TO, EVAN, U3 ANNUAL GIVING OFFICER, ANTIR, PM-SCL ABS #### [facility] , ALP [Catalytic activity/Vol] 68 U/L Normal 32-92 [facility] Comment on above: Performed By: #### H EPATIC, CBC, ESR, CRP, CREAT, CK #### [facility] [address] [place] [address] [place] #### RNA POLYMR, ANTI TH TO, EVAN, U3 ANNUAL GIVING OFFICER, ANTIR, PM-SCL ABS #### [facility] , ALT [Catalytic activity/Vol] 9 U/L Low 10-60 [facility] Comment on above: Performed By: #### H EPATIC, CBC, ESR, CRP, CREAT, CK #### [facility] [address] [place] [address] [place] #### RNA POLYMR, ANTI TH TO, EVAN, U3 ANNUAL GIVING OFFICER, ANTIR, PM-SCL ABS #### [facility] , AST [Catalytic activity/Vol] 15 U/L Normal 10-42 [facility] Comment on above: Performed By: #### H EPATIC, CBC, ESR, CRP, CREAT, CK #### [place] [address] [place] #### RNA POLYMR, ANTI TH TO, EVAN, U3 ANNUAL GIVING OFFICER, ANTIR, PM-SCL ABS #### [facility] , Bilirubin [Mass/Vol] 0.6 mg/dL Normal 0.3-1.2 [facility] Comment on above: Performed By: #### H EPATIC, CBC, ESR, CRP, CREAT, CK #### [address] #### RNA POLYMR, ANTI TH TO, EVAN, U3 ANNUAL GIVING OFFICER, ANTIR, PM-SCL ABS #### [facility] , Bilirubin,Indirect 0.4 mg/dL Normal [facility] Comment on above: Performed By: #### H EPATIC, CBC, ESR, CRP, CREAT, CK #### [place] [address] [place] #### RNA POLYMR, ANTI TH TO, EVAN, U3 ANNUAL GIVING OFFICER, ANTIR, PM-SCL ABS #### [facility] , Bilirubin.indirect [Mass/Vol] 0.2 mg/dL Normal 0.0-0.4 [facility] Comment on above: Performed By: #### H EPATIC, CBC, ESR, CRP, CREAT, CK #### [facility] [address] [place] [address] [place] #### RNA POLYMR, ANTI TH TO, EVAN, U3 ANNUAL GIVING OFFICER, ANTIR, PM-SCL ABS #### [facility] , Globulin (S) [Mass/Vol] 3.5 g/dL Normal [facility] Comment on above: Performed By: #### H EPATIC, CBC, ESR, CRP, CREAT, CK #### [place] [address] [place] #### RNA POLYMR, ANTI TH TO, EVAN, U3 ANNUAL GIVING OFFICER, ANTIR, PM-SCL ABS #### [facility] , Protein [Mass/Vol] 7.1 g/dL Normal 6.1-7.9 [facility] Comment on above: Performed By: #### H EPATIC, CBC, ESR, CRP, CREAT, CK #### [facility] [address] [place] [address] #### RNA POLYMR, ANTI TH TO, EVAN, U3 ANNUAL GIVING OFFICER, ANTIR, PM-SCL ABS #### [facility] , PM-SCL Antibodieson 06-19-20 22 RAIZA PM-Scl Antibody <20 Normal <20 [facility] Comment on above: Result Comment: This test was developed and its performance characteristics determined by [employer]. It has not been cleared or approved by the Food and Drug Administration. Negative: <20 Weak Positive: 20 - 39 Moderate Positive: 40 - 80 Strong Positive: >80 Performed at: [facility] [address] [place] [id number] Noise Abatement Engineer: Artemio Nair MD, Phone: [phone] Performed By: #### C UU, ADDONUAPLUS #### [address] #### C3, C4, CH50 #### [facility] , RNA Polymerase IIion 022 RNA Polymerase IIi <20 Normal <20 [facility] Comment on above: Result Comment: Nega tive: <20 Weak Positive: 20 - 39 Moderate Positive: 40 - 80 Strong Positive: >80 Performed at: [facility] [address] [place] [address] [id number] Noise Abatement Engineer: Artemio Nair MD, Phone: [phone] PERFORMED BY: [place] [address] PATHOLOGIST HOME MANAGEMENT SUPERVISOR RADHA BULLARD M.D. Performed By: #### C UU, ADDONUAPLUS #### [address] #### C3, C4, CH50 #### [facility] , Th/To Antibodyon 06-19-2022 Th/To Antibody Negative Normal Negative [facility] Comment on above: Result Comment: This test was developed and its performance characteristics determined by [facility]. It has not been cleared or approved by the Food and Drug Administration. Performed at: [facility] [address] [place] [id number] Noise Abatement Engineer: Artemio Nair MD, Phone: [phone] Performed By: #### C UU, ADDONUAPLUS #### [address] #### C3, C4, CH50 #### [facility] , U3 Rnpon 06-19-2022 U3 Bilingual Teacher Negative Normal Negative [facility] Comment on above: Result Comment: This test was developed and its performance characteristics determined by [facility]. It has not been cleared or approved by the Food and Drug Administration. Performed at: [facility] [address] [place] [address] [id number] Noise Abatement Engineer: Artemio Nair MD, Phone: [phone] PERFORMED BY: [place] [address] PATHOLOGIST HOME MANAGEMENT SUPERVISOR RADHA BULLARD M.D. Performed By: #### C UU, ADDONUAPLUS #### [address] #### C3, C4, CH50 #### [facility] , Urine Cultureon 06-19-2022 Bacteria identified Cx Nom (U) No Growth 2 Days PERFORMED BY: [place] [address] PATHOLOGIST HOME MANAGEMENT SUPERVISOR RADHA BULLARD M.D. Normal [facility] Comment on above: Performed By: #### C UU, ADDONUAPLUS #### [address] #### C3, C4, CH50 #### [facility] , PROF CHEM 8 (BAS METB)on Anion gap [Moles/Vol] 12.5 mmol/L Normal [facility] Comment on above: Performed By: #### B MP #### [facility] [address] [address] [address] Rjei Thomas Calcium [Mass/Vol] 8.9 mg/dL Normal 8.5-10.1 [facility] Comment on above: Performed By: #### B MP #### [facility] [address] [address] [address] Reji Thomas Chloride [Moles/Vol] 103 mmol/L Normal 98-107 [facility] Comment on above: Performed By: #### B MP #### [facility] [address] [address] [address] Reji Thomas CO2 [Moles/Vol] 26.1 mmol/L Normal 21.0-32.0 [facility] Comment on above: Performed By: #### B MP #### [facility] [address] [address] [address] Reji Thomas Creatinine [Mass/Vol] 2.09 mg/dL Critically high 0.55-1.02 [facility] Comment on above: Performed By: #### B MP #### [facility] [address] [address] [address] Reji Thomas EGFR-AF ARGENTINE 27 mL/min/1.73m2 Critically low >=[address] [facility] Comment on above: Performed By: #### B MP #### [facility] [address] [address] [address] Reji Thomas EGFR-NON AF ARGENTINE 23 mL/min/1.73m2 Critically low >=60 [facility] Comment on above: Performed By: #### B MP #### [facility] [address] [address] [address] Reji Thomas Glucose [Mass/Vol] 96 mg/dL Normal 74-106 [facility] Comment on above: Performed By: #### B MP #### [facility] [address] [address] [address] Reji Thomas Potassium [Moles/Vol] 4.6 mmol/L Normal 3.5-5.1 [facility] Comment on above: Performed By: #### B MP #### [facility] [address] [place] [address] Dr. Reji Thomas Sodium [Moles/Vol] 137 mmol/L Normal 136-145 [facility] Comment on above: Performed By: #### B MP #### [facility] [address] [address] [address] Reji Thomas Urea nitrogen [Mass/Vol] 38.0 mg/dL Critically high 7.0-18.0 [facility] Comment on above: Performed By: #### B MP #### [facility] [address] [place] [address] Dr. Reji Thomas Urea nitrogen/Creatinine [Mass ratio] 18.2 mg/mg Normal [facility] Comment on above: Performed By: #### B MP #### [facility] [address] [place] [address] Dr. Reji Thomas PROTIMEon 06-04-2022 INR Coag (PPP) [Relative time] 2.51 {INR} Normal [facility] Comment on above: Performed By: #### B BUILDING TECH, CMP, TSH, LIPID #### [facility] [address] [place] [address] Dr. Reji Thomas INR GUIDELINES SEE BELOW Normal [facility] Comment on above: Result Comment: SHY RED INR: 2.0 - 3.0 CONDITIONS NOT LISTED BELOW 2.5 - 3.5 FOR PROSTHETIC HEART VALVE REPLACEMENT 2.5 - 3.5 RECURRENT THROMBOSIS Performed By: #### B BUILDING TECH, CMP, TSH, LIPID #### [facility] [address] [place] [address] Dr. Reji Thomas PT Coag (PPP) [Time] 25.5 s Critically high 9.0-11.6 [facility] Comment on above: Performed By: #### B BUILDING TECH, CMP, TSH, LIPID #### [facility] [address] [place] [address] Dr. Reji Thomas BNPon 05-15-2022 Natriuretic peptide B (Bld) [Mass/Vol] 3661.0 pg/mL Critically high <=1,800.[address] [facility] Comment on above: Performed By: #### B BUILDING TECH, CMP, TSH, LIPID #### [facility] [address] [place] [address] Dr. Reji Thomas CBC AUTO DIFFon 05-15-2022 BASO # 0.1 103/ul Normal 0.0-0.1 [facility] Comment on above: Performed By: #### B MP #### [facility] [address] [address] [address] Reji Thomas Basophils/100 WBC (Bld) 1.1 % Normal 0.2-2.0 [facility] Comment on above: Performed By: #### B MP #### [facility] [address] [place] [address] Dr. Reji Thomas EO # 0.5 103/ul Normal 0.0-0.7 [facility] Comment on above: Performed By: #### B MP #### [facility] [address] [place] [address] Dr. Reji Thomas Eosinophils/100 WBC (Bld) 6.5 % Normal 0.9-7.0 [facility] Comment on above: Performed By: #### B MP #### [facility] [address] [place] [address] Dr. Reji Thomas Erythrocyte distribution width (RBC) [Ratio] 16.1 % Critically high 11.0-15.[address] [facility] Comment on above: Performed By: #### B MP #### [facility] [address] [place] [address] Dr. Reji Thomas Hematocrit (Bld) [Volume fraction] 35.0 % Critically low 36.0-48.0 [facility] Comment on above: Performed By: #### B MP #### [facility] [address] [place] [address] Dr. Reji Thomas Hemoglobin (Bld) [Mass/Vol] 11.1 g/dL Critically low 12.0-16.0 [facility] Comment on above: Performed By: #### B MP #### [facility] [address] [address] [address] Reji Thomas IG # 0.02 10e3/ul Normal 0.00-0.03 [facility] Comment on above: Performed By: #### B MP #### [facility] [address] [place] [address] Dr. Reji Thomas IG % 0.3 % Normal 0.0-0.5 [facility] Comment on above: Performed By: #### B MP #### [facility] [address] [place] [address] Dr. Reji Thomas LYMPH # 1.6 103/ul Normal 1.2-3.8 [facility] Comment on above: Performed By: #### B MP #### [facility] [address] [place] [address] Dr. Reji Thomas Lymphocytes/100 WBC (Bld) 22.4 % Normal 20.5-60.0 [facility] Comment on above: Performed By: #### B MP #### [facility] [address] [place] [address] Dr. Reji Thomas MANUAL DIFF REQ NO Normal [facility] Comment on above: Performed By: #### B MP #### [facility] [address] [place] [address] Dr. Reji Thomas MCH (RBC) [Entitic mass] 26.4 pg Critically low 26.7-34.0 [facility] Comment on above: Performed By: #### B MP #### [facility] [address] [place] [address] Dr. Reji Thomas MCHC (RBC) [Mass/Vol] 31.7 g/dL Normal 29.9-35.[address] [facility] Comment on above: Performed By: #### B MP #### [facility] [address] [place] [address] Dr. Reji Thomas MCV (RBC) [Entitic vol] 83.1 fL Normal 81.0-99.0 [facility] Comment on above: Performed By: #### B MP #### [facility] [address] [address] [address] Reji Thomas MONO # 0.9 103/ul Critically high 0.3-0.8 [facility] Comment on above: Performed By: #### B MP #### [facility] [address] [address] [address] Reji Thomas Monocytes/100 WBC (Bld) 12.1 % Critically high 1.7-12.[address] [facility] Comment on above: Performed By: #### B MP #### [facility] [address] [place] [address] Dr. Reji Thomas NEUT # 4.1 103/ul Normal 1.4-6.[address] [facility] Comment on above: Performed By: #### B MP #### [facility] [address] [place] [address] Dr. Reji Thomas Neutrophils/100 WBC (Bld) 57.6 % Normal 43.0-75.[address] [facility] Comment on above: Performed By: #### B MP #### [facility] [address] [place] [address] Dr. Reji Thomas Platelet mean volume (Bld) [Entitic vol] 8.8 fL Critically low 9.5-13.5 [facility] Comment on above: Performed By: #### B MP #### [facility] [address] [place] [address] Dr. Reji Thomas PLT 253 103/ul Normal 150-[address] [facility] Comment on above: Performed By: #### B MP #### [facility] [address] [place] [address] Dr. Reji Thomas RBC 4.21 106/ul Normal 4.20-5.[address] [facility] Comment on above: Performed By: #### B MP #### [facility] [address] [place] [address] Dr. Reji Thomas WBC 7.1 103/ul Normal 4.0-11.[address] [facility] Comment on above: Performed By: #### B MP #### [facility] [address] [place] [address] Dr. Reji Thomas PROF CHEM 8 (BAS METB)on Anion gap [Moles/Vol] 10.5 mmol/L Normal [facility] Comment on above: Performed By: #### B BUILDING TECH, CMP, TSH, LIPID #### [facility] [address] [address] [address] Reji Thomas Calcium [Mass/Vol] 8.9 mg/dL Normal 8.5-10.1 [facility] Comment on above: Performed By: #### B BUILDING TECH, CMP, TSH, LIPID #### [facility] [address] [address] [address] Reji Thomas Chloride [Moles/Vol] 104 mmol/L Normal 98-107 [facility] Comment on above: Performed By: #### B BUILDING TECH, CMP, TSH, LIPID #### [facility] [address] [place] [address] Dr. Reji Thomas CO2 [Moles/Vol] 29.5 mmol/L Normal 21.0-32.0 [facility] Comment on above: Performed By: #### B BUILDING TECH, CMP, TSH, LIPID #### [facility] [address] [address] [address] Reji Thomas Creatinine [Mass/Vol] 1.73 mg/dL Critically high 0.55-1.02 [facility] Comment on above: Performed By: #### B BUILDING TECH, CMP, TSH, LIPID #### [facility] [address] [address] [address] Reji Thomas EGFR-AF ARGENTINE 34 mL/min/1.73m2 Critically low >=60 [facility] Comment on above: Performed By: #### B BUILDING TECH, CMP, TSH, LIPID #### [facility] [address] [address] [address] Reji Thomas EGFR-NON AF ARGENTINE 28 mL/min/1.73m2 Critically low >=60 [facility] Comment on above: Performed By: #### B BUILDING TECH, CMP, TSH, LIPID #### [facility] [address] [address] [address] Reji Thomas Glucose [Mass/Vol] 79 mg/dL Normal 74-106 [facility] Comment on above: Performed By: #### B BUILDING TECH, CMP, TSH, LIPID #### [facility] [address] [place] [address] Dr. Reji Thomas Potassium [Moles/Vol] 4.0 mmol/L Normal 3.5-5.1 [facility] Comment on above: Performed By: #### B BUILDING TECH, CMP, TSH, LIPID #### [facility] [address] [address] [address] Reji Thomas Sodium [Moles/Vol] 140 mmol/L Normal 136-145 [facility] Comment on above: Performed By: #### B BUILDING TECH, CMP, TSH, LIPID #### [facility] [address] [place] [address] Dr. Reji Thomas Urea nitrogen [Mass/Vol] 22.0 mg/dL Critically high 7.0-18.0 [facility] Comment on above: Performed By: #### B BUILDING TECH, CMP, TSH, LIPID #### [facility] [address] [place] [address] Dr. Reji Thomas Urea nitrogen/Creatinine [Mass ratio] 12.7 mg/mg Normal [facility] Comment on above: Performed By: #### B BUILDING TECH, CMP, TSH, LIPID #### [facility] [address] [place] [address] Dr. Reji Thomas PROTIMEon 05-15-2022 INR Coag (PPP) [Relative time] 2.53 {INR} Normal [facility] Comment on above: Performed By: #### B BUILDING TECH, CMP, TSH, LIPID #### [facility] [address] [place] [address] Dr. Reji Thomas INR GUIDELINES SEE BELOW Normal [facility] Comment on above: Result Comment: SHY RED INR: 2.0 - 3.0 CONDITIONS NOT LISTED BELOW 2.5 - 3.5 FOR PROSTHETIC HEART VALVE REPLACEMENT 2.5 - 3.5 RECURRENT THROMBOSIS Performed By: #### B BUILDING TECH, CMP, TSH, LIPID #### [facility] [address] [place] [address] Dr. Reji Thomas PT Coag (PPP) [Time] 25.7 s Critically high 9.0-11.[address] [facility] Comment on above: Performed By: #### B BUILDING TECH, CMP, TSH, LIPID #### [facility] [address] [address] [address] Reji Thomas ECHOCARDIO M/2D COMPLETEon 0 05-04-2022 ECHOCARDIO M/2D COMPLETE Patient: INEZ JUAREZ Exam Date: 05/04/2022 : 1940 Gender:F Ordering : DR JENN PRADO M.D. Admission #: [id number] Family : Order #: [id number] CLICK HERE TO VIEW EXAM ECHOCARDIOGRAM REPORT [...] Area(A4C): 27.20 cm2 Left Atrium Systolic Volume(A2C): 446471 mm3 Left Atrium Systolic Volume(A4C): 62068 mm3 Mitral Valve MV E to A Ratio: 2.60 Deceleration [place]: 43466 mm/s2 Mitral Valve A-Wave Peak Velocity: 58.60 [...] Prado M.D. on 05/07/2022 at 11:39 Normal [facility] EVAN by IFAon 04-19-2022 Antinuclear Antibodies, IFA Positive Abnormal [facility] Comment on above: Result Comment: Nega tive <1:80 Borderline 1:80 Positive >1:80 Performed By: #### B BUILDING TECH, CMP, TSH, LIPID #### [facility] [address] [place] [address] Dr. Reji Thomas Centriole Pattern Normal [facility] Comment on above: Performed By: #### B BUILDING TECH, CMP, TSH, LIPID #### [facility] [address] [address] [address] Reji Thomas Centromere Pattern Normal [facility] Comment on above: Performed By: #### B BUILDING TECH, CMP, TSH, LIPID #### [facility] [address] [id number] Reji Thomas Homogeneous Pattern 1:320 Critically high [facility] Comment on above: Result Comment: ICAP nomenclature: AC-1 Performed By: #### B BUILDING TECH, CMP, TSH, LIPID #### [facility] [address] [address] [address] Reji Thomas Midbody Pattern Normal [facility] Comment on above: Performed By: #### B BUILDING TECH, CMP, TSH, LIPID #### [facility] [address] [address] [address] Reji Thomas Note: Comment Normal [facility] Comment on above: Result Comment: For [...] titers Nucleosomes, Histones Drug-induced SLE Speckled Sm, ANNUAL GIVING OFFICER, SCL-70, SLE,MCTD,PSS (diffuse form), SS-A/SS-B Sjogrens Nucleolar SCL-70, PM-1/SCL High titers Scleroderma, PM/DM Centromere Centromere PSS (limited form) w/Crest syndrome variable Nuclear Dot Sp100,l80-pksnud Primary Biliary Cirrhosis Nuclear GP210, Primary Biliary Cirrhosis Membrane eleonora A,B,C Performed By: #### B BUILDING TECH, CMP, TSH, LIPID #### [facility] [address] [place] [address] Dr. Reji Thomas Nuclear Dot Pattern Normal [facility] Comment on above: Performed By: #### B BUILDING TECH, CMP, TSH, LIPID #### [facility] [address] [place] [address] Dr. Reji Thomas Nuclear Membrane Pattern Normal [facility] Comment on above: Performed By: #### B BUILDING TECH, CMP, TSH, LIPID #### [facility] [address] [address] [address] Reji Thomas Nucleolar Pattern Normal [facility] Comment on above: Performed By: #### B BUILDING TECH, CMP, TSH, LIPID #### [facility] [address] [address] [address] Reji Thomas PCNA Pattern Normal [facility] Comment on above: Performed By: #### B BUILDING TECH, CMP, TSH, LIPID #### [facility] [address] [address] [address] Reji Thomas Speckled Pattern Normal [facility] Comment on above: Performed By: #### B BUILDING TECH, CMP, TSH, LIPID #### [facility] [address] [address] [address] Reji Thomas Spindle Apparatus Pattern Normal [facility] Comment on above: Performed By: #### B BUILDING TECH, CMP, TSH, LIPID #### [facility] [address] [address] [address] Reji Thomas ANCA (ANTINEUTROPHIL CYTOPLA MSMIC ABon 04-18-2022 Atypical pANCA <1:20 Normal Neg:<1:20 [facility] Comment on above: Result Comment: Seru m is slightly hemolyzed The atypical pANCA pattern has been observed in a significant percentage of patients with ulcerative colitis, primary sclerosing cholangitis and autoimmune hepatitis. Performed By: #### B MP #### [facility] [address] [address] [address] Reji Thomas Cytoplasmic (C-ANCA) <1:20 Normal Neg:<1:20 [facility] Comment on above: Result Comment: Seru m is slightly hemolyzed Performed By: #### B MP #### [facility] [address] [address] [address] Reji Thomas Perinuclear (P-ANCA) <1:20 Normal Neg:<1:20 [facility] Comment on above: [...] up testing of positive sera with both NV-3 and MPO-ANCA enzyme immunoassays. As many as 5% serum samples are positive only by EIA. Ref. AM J Clin Pathol 1999;111:507-513. Performed By: #### B MP #### [facility] [address] [place] [address] Dr. Reji Thomas ANTISCLERODERMA ABon 022 Antiscleroderma-70 Antibodies 0.3 AI Normal 0.0-0.9 [facility] Comment on above: Performed By: #### B BUILDING TECH, CMP, TSH, LIPID #### [facility] [address] [place] [address] Dr. Reji Thomas T3 UPTAKEon 04-18-2022 Free Thyroxine Index 1.8 Normal 1.2-4.[address] [facility] Comment on above: Performed By: #### B BUILDING TECH, CMP, TSH, LIPID #### [facility] [address] [place] [address] Dr. Reji Thomas T3 Uptake 23 % Critically low 24-39 [facility] Comment on above: Performed By: #### B BUILDING TECH, CMP, TSH, LIPID #### [facility] [address] [place] [address] Dr. Reji Thomas T4 LABCORPon 04-18-2022 T4 [Mass/Vol] 7.8 ug/dL Normal 4.5-12.0 [facility] Comment on above: Performed By: #### B BUILDING TECH, CMP, TSH, LIPID #### [facility] [address] [place] [address] Dr. Reji Thomas BNPon 04-16-2022 Natriuretic peptide B (Bld) [Mass/Vol] 2870.0 pg/mL Critically high <=1,800.[address] [facility] Comment on above: Result Comment: repe ated Performed By: #### B BUILDING TECH, CMP, TSH, LIPID #### [facility] [address] [place] [address] Dr. Reji Thomas CBC AUTO DIFFon 04-16-2022 BASO # 0.1 103/ul Normal 0.0-0.1 [facility] Comment on above: Performed By: #### B BUILDING TECH, CMP, TSH, LIPID #### [facility] [address] [place] [address] Dr. Reji Thomas Basophils/100 WBC (Bld) 0.9 % Normal 0.2-2.[address] [facility] Comment on above: Performed By: #### B BUILDING TECH, CMP, TSH, LIPID #### [facility] [address] [place] [address] Dr. Reji Thomas EO # 0.3 103/ul Normal 0.0-0.[address] [facility] Comment on above: Performed By: #### B BUILDING TECH, CMP, TSH, LIPID #### [facility] [address] [place] [address] Dr. Reji Thomas Eosinophils/100 WBC (Bld) 3.9 % Normal 0.9-7.0 [facility] Comment on above: Performed By: #### B BUILDING TECH, CMP, TSH, LIPID #### [facility] [address] [place] [address] Dr. Reji Thomas Erythrocyte distribution width (RBC) [Ratio] 15.9 % Critically high 11.0-15.0 [facility] Comment on above: Performed By: #### B BUILDING TECH, CMP, TSH, LIPID #### [facility] [address] [place] [address] Dr. Reji Thomas Hematocrit (Bld) [Volume fraction] 38.1 % Normal 36.0-48.0 [facility] Comment on above: Performed By: #### B BUILDING TECH, CMP, TSH, LIPID #### [facility] [address] [place] [address] Dr. Reji Thomas Hemoglobin (Bld) [Mass/Vol] 12.1 g/dL Normal 12.0-16.[address] [facility] Comment on above: Performed By: #### B BUILDING TECH, CMP, TSH, LIPID #### [facility] [address] [place] [address] Dr. Reji Thomas IG # 0.02 10e3/ul Normal 0.00-0.03 [facility] Comment on above: Performed By: #### B BUILDING TECH, CMP, TSH, LIPID #### [facility] [address] [place] [address] Dr. Reji Thomas IG % 0.3 % Normal 0.0-0.[address] [facility] Comment on above: Performed By: #### B BUILDING TECH, CMP, TSH, LIPID #### [facility] [address] [place] [address] Dr. Reji Thomas LYMPH # 1.6 103/ul Normal 1.2-3.[address] [facility] Comment on above: Performed By: #### B BUILDING TECH, CMP, TSH, LIPID #### [facility] [address] [place] [address] Dr. Reji Thomas Lymphocytes/100 WBC (Bld) 22.6 % Normal 20.5-60.0 [facility] Comment on above: Performed By: #### B BUILDING TECH, CMP, TSH, LIPID #### [facility] [address] [place] [address] Dr. Reji Thomas MANUAL DIFF REQ NO Normal [facility] Comment on above: Performed By: #### B BUILDING TECH, CMP, TSH, LIPID #### [facility] [address] [place] [address] Dr. Reji Thomas MCH (RBC) [Entitic mass] 26.5 pg Critically low 26.7-34.0 [facility] Comment on above: Performed By: #### B BUILDING TECH, CMP, TSH, LIPID #### [facility] [address] [place] [address] Dr. Reji Thomas MCHC (RBC) [Mass/Vol] 31.8 g/dL Normal 29.9-35.[address] [facility] Comment on above: Performed By: #### B BUILDING TECH, CMP, TSH, LIPID #### [facility] [address] [place] [address] Dr. Reji Thomas MCV (RBC) [Entitic vol] 83.4 fL Normal 81.0-99.[address] [facility] Comment on above: Performed By: #### B BUILDING TECH, CMP, TSH, LIPID #### [facility] [address] [place] [address] Dr. Reji Thomas MONO # 0.6 103/ul Normal 0.3-0.[address] [facility] Comment on above: Performed By: #### B BUILDING TECH, CMP, TSH, LIPID #### [facility] [address] [place] [address] Dr. Reji Thomas Monocytes/100 WBC (Bld) 9.3 % Normal 1.7-12.0 [facility] Comment on above: Performed By: #### B BUILDING TECH, CMP, TSH, LIPID #### [facility] [address] [place] [address] Dr. Reji Thomas NEUT # 4.3 103/ul Normal 1.4-6.5 [facility] Comment on above: Performed By: #### B BUILDING TECH, CMP, TSH, LIPID #### [facility] [address] [place] [address] Dr. Reji Thomas Neutrophils/100 WBC (Bld) 63.0 % Normal 43.0-75.0 [facility] Comment on above: Performed By: #### B BUILDING TECH, CMP, TSH, LIPID #### [facility] [address] [place] [address] Dr. Reji Thomas Platelet mean volume (Bld) [Entitic vol] 9.2 fL Critically low 9.5-13.5 [facility] Comment on above: Performed By: #### B BUILDING TECH, CMP, TSH, LIPID #### [facility] [address] [place] [address] Dr. Reji Thomas PLT 211 103/ul Normal 150-[address] [facility] Comment on above: Performed By: #### B BUILDING TECH, CMP, TSH, LIPID #### [facility] [address] [place] [address] Dr. Reji Thomas RBC 4.57 106/ul Normal 4.20-5.[address] [facility] Comment on above: Performed By: #### B BUILDING TECH, CMP, TSH, LIPID #### [facility] [address] [place] [address] Dr. Reji Thomas WBC 6.9 103/ul Normal 4.0-11.0 [facility] Comment on above: Performed By: #### B BUILDING TECH, CMP, TSH, LIPID #### [facility] [address] [place] [address] Dr. Reji Thomas GLYCOHEMOGLOBIN A1Con 2021 ADA RECOMMENDATION SEE BELOW Normal [facility] Comment on above: Result Comment: ADA RECOMMENDED LIMIT 4.0 - 6.0 ADA THERAPEUTIC TARGET < 7.0 ACTION SUGGESTED > 7.0 Performed By: #### B BUILDING TECH, CMP, TSH, LIPID #### [facility] [address] [address] [address] Reji Thomas Glucose [Mass/Vol] 100 mg/dL Normal [facility] Comment on above: Performed By: #### B BUILDING TECH, CMP, TSH, LIPID #### [facility] [address] [address] [address] Reji Thomas HbA1c (Bld) [Mass fraction] 5.1 % Normal 4.5-6.2 [facility] Comment on above: Performed By: #### B BUILDING TECH, CMP, TSH, LIPID #### [facility] [address] [place] [address] Dr. Reji Thomas IRONon 04-16-2022 Iron [Mass/Vol] 42.0 ug/dL Critically low 50.0-170.0 [facility] Comment on above: Performed By: #### B BUILDING TECH, CMP, TSH, LIPID #### [facility] [address] [place] [address] Dr. Reji Thomas LIPID PROFILEon 04-16-2022 CHOL-HDL RATIO NORM SEE BELOW Normal [facility] Comment on above: Result Comment: 3.3 - 4.4 LOW RISK 4.4 - 7.1 AVERAGE RISK 7.1 - 11.0 MODERATE RISK >11.0 HIGH RISK Performed By: #### B BUILDING TECH, CMP, TSH, LIPID #### [facility] [address] [address] [address] Reji Thomas Cholesterol [Mass/Vol] 176 mg/dL Normal <=200 [facility] Comment on above: Performed By: #### B BUILDING TECH, CMP, TSH, LIPID #### [facility] [address] [place] [address] Dr. Reji Thomas Cholesterol in HDL [Mass/Vol] 52 mg/dL Normal 40-60 [facility] Comment on above: Performed By: #### B BUILDING TECH, CMP, TSH, LIPID #### [facility] [address] [address] [address] Reji Thomas Cholesterol in LDL [Mass/Vol] 102.8 mg/dL Normal [facility] Comment on above: Performed By: #### B BUILDING TECH, CMP, TSH, LIPID #### [facility] [address] [address] [address] Reji Thomas Cholesterol.total/Ch olesterol in HDL [Mass ratio] 3.4 {ratio} Normal [facility] Comment on above: Performed By: #### B BUILDING TECH, CMP, TSH, LIPID #### [facility] [address] [address] [address] Reji Thomas HDL NORMAL > or = 60 mg/dl - LOW CARDIOVASCULAR RISK <40 mg/dl - HIGH CARDIOVASCULAR RISK Normal [facility] Comment on above: Performed By: #### B BUILDING TECH, CMP, TSH, LIPID #### [facility] [address] [place] [address] Dr. Reji Thomas LDL CALC NORMAL SEE BELOW Normal [facility] Comment on above: Result Comment: <100 mg/dl OPTIMAL 100 - 129 mg/dl NEAR OR ABOVE OPTIMAL 130 - 159 mg/dl BORDERLINE HIGH 160 - 189 mg/dl HIGH >190 mg/dl VERY HIGH Performed By: #### B BUILDING TECH, CMP, TSH, LIPID #### [facility] [address] [place] [address] Dr. Reji Thomas Triglyceride [Mass/Vol] 106 mg/dL Normal <=150 [facility] Comment on above: Performed By: #### B BUILDING TECH, CMP, TSH, LIPID #### [facility] [address] [address] [address] Reji Thomas VLDL CALC 21.2 mg/dL Normal [facility] Comment on above: Performed By: #### B BUILDING TECH, CMP, TSH, LIPID #### [facility] [address] [place] [address] Dr. Reji Thomas PROF 14(COMP METB)on 022 Albumin [Mass/Vol] 3.6 g/dL Normal 3.4-5.0 [facility] Comment on above: Performed By: #### B BUILDING TECH, CMP, TSH, LIPID #### [facility] [address] [address] [address] Reji Thomas Albumin/Globulin [Mass ratio] 0.9 {ratio} Normal [facility] Comment on above: Performed By: #### B BUILDING TECH, CMP, TSH, LIPID #### [facility] [address] [place] [address] Dr. Reji Thomas ALP [Catalytic activity/Vol] 62 U/L Normal 46-116 [facility] Comment on above: Performed By: #### B BUILDING TECH, CMP, TSH, LIPID #### [facility] [address] [place] [address] Dr. Reji Thomas ALT [Catalytic activity/Vol] 14 U/L Normal 14-59 [facility] Comment on above: Performed By: #### B BUILDING TECH, CMP, TSH, LIPID #### [facility] [address] [place] [address] Dr. Reji Thomas Anion gap [Moles/Vol] 14.5 mmol/L Normal [facility] Comment on above: Performed By: #### B BUILDING TECH, CMP, TSH, LIPID #### [facility] [address] [place] [address] Dr. Reji Thomas AST [Catalytic activity/Vol] 17 U/L Normal 15-37 [facility] Comment on above: Performed By: #### B BUILDING TECH, CMP, TSH, LIPID #### [facility] [address] [place] [address] Dr. Reji Thomas Bilirubin [Mass/Vol] 0.6 mg/dL Normal 0.2-1.0 [facility] Comment on above: Performed By: #### B BUILDING TECH, CMP, TSH, LIPID #### [facility] [address] [place] [address] Dr. Reji Thomas Calcium [Mass/Vol] 8.8 mg/dL Normal 8.5-10.1 [facility] Comment on above: Performed By: #### B BUILDING TECH, CMP, TSH, LIPID #### [facility] [address] [place] [address] Dr. Reji Thomas Chloride [Moles/Vol] 102 mmol/L Normal 98-[address] [facility] Comment on above: Performed By: #### B BUILDING TECH, CMP, TSH, LIPID #### [facility] [address] [address] [address] Reji Thomas CO2 [Moles/Vol] 26.3 mmol/L Normal 21.0-32.0 [facility] Comment on above: Performed By: #### B BUILDING TECH, CMP, TSH, LIPID #### [facility] [address] [address] [address] Reji Thomas Creatinine [Mass/Vol] 1.76 mg/dL Critically high 0.55-1.02 [facility] Comment on above: Performed By: #### B BUILDING TECH, CMP, TSH, LIPID #### [facility] [address] [place] [address] Dr. Reji Thomas EGFR-AF ARGENTINE 33 mL/min/1.73m2 Critically low >=[address] [facility] Comment on above: Performed By: #### B BUILDING TECH, CMP, TSH, LIPID #### [facility] [address] [place] [address] Dr. Reji Thomas EGFR-NON AF ARGENTINE 28 mL/min/1.73m2 Critically low >=60 [facility] Comment on above: Performed By: #### B BUILDING TECH, CMP, TSH, LIPID #### [facility] [address] [place] [address] Dr. Reji Thomas Globulin (S) [Mass/Vol] 4.2 g/dL Normal [facility] Comment on above: Performed By: #### B BUILDING TECH, CMP, TSH, LIPID #### [facility] [address] [place] [address] Dr. Reji Thomas Glucose [Mass/Vol] 81 mg/dL Normal 74-106 [facility] Comment on above: Performed By: #### B BUILDING TECH, CMP, TSH, LIPID #### [facility] [address] [place] [address] Dr. Reji Thomas Potassium [Moles/Vol] 3.8 mmol/L Normal 3.5-5.1 [facility] Comment on above: Performed By: #### B BUILDING TECH, CMP, TSH, LIPID #### [facility] [address] [address] [address] Reji Thomas Protein [Mass/Vol] 7.8 g/dL Normal 6.4-8.2 [facility] Comment on above: Performed By: #### B BUILDING TECH, CMP, TSH, LIPID #### [facility] [address] [address] [address] Reji Thomas Sodium [Moles/Vol] 139 mmol/L Normal 136-145 [facility] Comment on above: Performed By: #### B BUILDING TECH, CMP, TSH, LIPID #### [facility] [address] [address] [address] Reji Thomas Urea nitrogen [Mass/Vol] 27.0 mg/dL Critically high 7.0-18.0 [facility] Comment on above: Performed By: #### B BUILDING TECH, CMP, TSH, LIPID #### [facility] [address] [address] [address] Reji Thomas Urea nitrogen/Creatinine [Mass ratio] 15.3 mg/mg Normal [facility] Comment on above: Performed By: #### B BUILDING TECH, CMP, TSH, LIPID #### [facility] [address] [place] [address] Dr. Reji Thomas PROTIMEon 04-16-2022 INR Coag (PPP) [Relative time] 1.92 {INR} Normal [facility] Comment on above: Performed By: #### B BUILDING TECH, CMP, TSH, LIPID #### [facility] [address] [place] [address] Dr. Reji Thomas INR GUIDELINES SEE BELOW Normal [facility] Comment on above: Result Comment: SHY RED INR: 2.0 - 3.0 CONDITIONS NOT LISTED BELOW 2.5 - 3.5 FOR PROSTHETIC HEART VALVE REPLACEMENT 2.5 - 3.5 RECURRENT THROMBOSIS Performed By: #### B BUILDING TECH, CMP, TSH, LIPID #### [facility] [address] [place] [address] Dr. Reji Thomas PT Coag (PPP) [Time] 19.9 s Critically high 9.0-11.6 [facility] Comment on above: Performed By: #### B BUILDING TECH, CMP, TSH, LIPID #### [facility] [address] [address] [address] Reji Thomas SED RATE WESTERGRENon 2021 SED RATE 37 mm/hr Critically high <=30 [facility] Comment on above: Performed By: #### B BUILDING TECH, CMP, TSH, LIPID #### [facility] [address] [place] [address] Dr. Reji Thomas TSHon 04-16-2022 TSH 1.941 uIU/mL Normal 0.358-3.740 [facility] Comment on above: Performed By: #### B BUILDING TECH, CMP, TSH, LIPID #### [facility] [address] [place] [address] Dr. Reji Thomas TSH RANGE SEE BELOW Normal [facility] Comment on above: Result Comment: <0.3 4 UIU/ml HYPERTHYROID 0.34-5.60 UIU/ml EUTHYROID >5.60 UIU/ml HYPOTHYROID Performed By: #### B BUILDING TECH, CMP, TSH, LIPID #### [facility] [address] [place] [address] Dr. Reji Thomas VITAMIN D 25 OHon 04-16-2022 VIT D 25-OH 56.6 ng/mL Normal [facility] Comment on above: Performed By: #### B BUILDING TECH, CMP, TSH, LIPID #### [facility] [address] [place] [address] Dr. Reji Thomas VIT D RANGES SEE BELOW Normal [facility] Comment on above: Result Comment: <20 ng/mL Vit D deficient 20 - <30 ng/mL Vit D insufficient 30 - 100 ng/mL Vit D sufficient >100 ng/mL Potential Toxicity Performed By: #### B BUILDING TECH, CMP, TSH, LIPID #### [facility] [address] [place] [address] Dr. Reji Thomas Cardiovascular Lab Reporton 11-02-2021 Cardiovascular Lab Report [facility] Patient Name: Inez Juarez MR #: [id number] [facility] Physician: Jenn Prado M.D. Department of Service Date: 11/01/2021 Medicine Birthdate: 1940 Division of Room #: Cardiology Adult Cardiovascular Services [address] [address] Cardiovascular Laboratory Report INDICATION: The patient is [...] She signed consent. She was brought to biological lab technician in a fasting state. The right neck area was prepped and draped in usual fashion. Micropuncture technique and ultrasound guidance were used for access in the right internal jugular vein. A 6-Filipino x 11 cm sheath was placed. A 6-Filipino Hernández catheter was used for heart catheterization [...] Prado M.D. Date Trans: 11/01/2021 11:22 P/alondra [id number] cc: Bruce Rizvi M.D. [address], [place] [address] [place] [facility] Cardiovascular Lab Reporton 06-02-2021 Cardiovascular Lab Report [facility] Patient Name: Inez Juarez MR #: [id number] [facility] Physician: Jenn Prado M.D. Department of Service Date: 06/02/2021 Medicine Birthdate: 1940 Division of Room #: CC Cardiology Adult Cardiovascular Services [address] [address] Cardiovascular Laboratory Report INDICATION: The patient is [...] the informed consent. She was brought to biological lab technician in a fasting state. The right neck area was prepped and draped in usual fashion. Using micropuncture technique and ultrasound guidance, the right internal jugular vein was accessed and a 6-Filipino x 11 cm sheath was placed. A 6-Filipino Hernández catheter was used for heart catheterization [...] Prado M.D. Date Trans: 06/02/2021 02:42 P/alondra [id number] cc: Bruce Rizvi M.D. [address] [facility] [address] [facility] Encounters Encounter Date Encounter Type Care Provider Facility Start: 12-13-2023 End: 12-13-2023 ambulatory [facility] Start: 10-30-2023 End: 10-30-2023 ambulatory [facility] Start: 10-22-2023 End: 10-22-2023 ambulatory ANTONY YOPTA [facility] Start: 05-20-2023 End: 05-20-2023 ambulatory JENN PRADO [facility] Start: 03-22-2023 End: 03-23-[address] BRUCE RIZVI . Facility:[facility] Start: 02-22-2023 End: 02-23-[address] BURCE RIZVI . Facility:[facility] Start: 01-03-2023 End: 01-04-2023 [...] Start: 11-01-2021 End: 11-02-2021 ambulatory PROVIDER UNKNOWN Facility:[facility] Start: 06-02-2021 End: 06-03-2021 ambulatory PROVIDER UNKNOWN Facility:[facility] Payers Date Payer Category Payer Medicare [id number] 1961 Medicare [id number] 1961 Medicare [id number] 1961 Self-pay [id number] 1940 Unknown [id number] 2.16.8 [id number] 1940 Unknown [id number] 2.16.8 40.1.898618.3.579.2.647 1940 Unknown [id number] 2.16.84 0.1.365584.3.579.2.593 1940 Unknown [id number] 2.16.84 0.1.667173.3.579.2.593 1938 Unknown [id number] 2.16.84 0.1.509816.3.579.2.593 1938 Unknown [id number] 2.16.84 0.1.429518.3.579.2.593 1938 Unknown [id number] 2.16.84 0.1.619608.3.579.2.593 1938 Unknown [id number] 2.16.84 0.1.938539.3.579.2.593 1938 Unknown [id number] 2.16.84 0.1.922828.3.579.2.593 1938 Unknown [id number] 2.16.84 0.1.754842.3.579.2.593 1938 Unknown [id number] 2.16.84 0.1.882557.3.579.2.593 1938 Unknown [id number] 2.16.84 0.1.062235.3.579.2.593 1938 Unknown [id number] 2.16.84 0.1.656233.3.579.2.593 1938 Unknown [id number] 2.16.84 0.1.264213.3.579.2.593 1938 Unknown [id number] 2.16.84 0.1.706625.3.579.2.593 1938 Unknown [id number] 2.16.84 0.1.065463.3.579.2.593 1938 Unknown [id number] 2.16.84 0.1.378569.3.579.2.593 1938 Unknown [id number] 2.16.84 0.1.528900.3.579.2.593 1938 Unknown [id number] 2.16.84 0.1.633012.3.579.2.593 1938 Unknown [id number] 2.16.84 0.1.048926.3.579.2.593 1938 Unknown [id number] 2.16.84 0.1.358950.3.579.2.593 Private Health Insurance IAB [id number] Progress note 12-13-2023 Note Date & Type Note Facility 12-13-2023 Note [facility] [place] [facility] Petrona Juarez is a 83 [...] Nose: Nose james (more content not included)... [facility] [place] Progress note 10-30-2023 Note Date & Type Note Facility 10-30-2023 Note [place] Cardiology - [facility] Subjective Inez Juarez is a [...] Murmur heard. Systol (more content not included)... [facility] [place] Clinical Note 10-22-2023 Note Date & Type Note Facility 10-22-2023 Note Patient: Inez foss Procedure Information Date/Time: 10/22/23 0830 Procedure: Right heart cath Location: [facility] 3 / [facility] (Cath) Providers: Antony Smith [...] with fellow and attending. Additional Equipment Requests [facility] [place] Clinical Note 10-15-2023 Note Date & Type Note Facility 10-15-[address] Smith regarding warfarin. Dr Smith requested warfarin to be held for 3 days prior to procedure. [facility] Progress note 09-19-2023 Note Date & Type Note Facility 09-19-2023 Note [facility] Progress note 05-20-2023 Note Date & Type Note Facility 05-20-2023 Note [place] Cardiology - [facility] Petrona Juarez is a 83 y.o. [...] present. Comments: Large (more content not included)... [facility] [place] Summary Purpose Family History No Family History Records FoundNo Family History Records FoundNo Family History Records FoundNo Family History Records Found Advance Directives No Advanced Directives Records FoundNo Advanced Directives Records FoundNo Advanced Directives Records FoundNo Advanced Directives Records Found Additional Source Comments INFORMATION SOURCE (unrecogn ized section and content) DATE CREATED AUTHOR 11/03/2021 [facility] DATE CREATED AUTHOR AUTHOR'S ORGANIZ ATION 07/05/2022 [facility] DATE CREATED AUTHOR AUTHOR'S ORGANIZ ATION 03/23/2023 [facility] DATE CREATED AUTHOR AUTHOR'S ORGANIZ ATION 12/14/2023 [facility] FOR RECORDS PERTAINING TO PATIENTS WHO [...] BE BASED ON THE PRIMARY CLINICAL RECORDS. [employer] [facility]. provides no warranty or guarantee of the accuracy or completeness of information in this document.
[2024-06-08 14:53] LABS: INR 1.54; Prothrombin Time 15.6 sec (9.0-11.6)
== END 2024-06-08 12:54 | disposition home or self-care (01) ==
LOC: LAB 12:55
PROVIDERS: PCP Family Medicine; Visit Provider Family Medicine
DX: I48.91 Unspecified atrial fibrillation (principal)
CPT/HCPCS: 36415; 85610

== ENCOUNTER 2024-06-22 11:29 | Outpatient (OUT) | payer MEDICARE, SELFPAY ==
--- NOTE | 2024-06-22 11:32 | XR_ITS ---
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 FINDINGS: SPINE ANALYSIS: Average bone mineral density is 1.469 g/cm2. T-score (standard deviation relative to young adult mean): 2.2 . +4.6% change since prior study. HIP ANALYSIS: Lowest bone mineral density is within the left femoral neck, 0.810 g/cm2. T-score (standard deviation relative to young adult mean): -1.6 . -7.0% change since prior study. XR/XR DEXA axial skeleton IMPRESSION: World Health Organization Classification: Osteopenia - Moderate Fracture Risk FRAX: Cannot calculate. Pharmacologic treatment recommendations * No uniform recommendation applies to all patients. Management plans must be individualized. * Consider initiating pharmacologic treatment in postmenopausal women and men >= 50 years of age who have the following: Primary fracture prevention: * T-score <= - 2.5 at the femoral neck, total hip, lumbar spine, 33% radius (some uncertainty with existing data) by DXA. * Low bone mass (osteopenia: T-score between - 1.0 and - 2.5) at the femoral neck or total hip by DXA with a 10-year hip fracture risk >= 3% or a 10-year major osteoporosis-related fracture risk >= 20% (i.e., clinical vertebral, hip, forearm, or proximal humerus) based on the [place]-adapted FRAXregistered model. Secondary fracture prevention: * Fracture of the hip or vertebra regardless of BMD [4, 5]. * Fracture of proximal humerus, pelvis, or distal forearm in persons with low bone mass (osteopenia: T-score between - 1.0 and - 2.5). The decision to treat should be individualized in persons with a fracture of the proximal humerus, pelvis, or distal forearm who do not have osteopenia or low BMD [12, 13]. Fabiola MS, Dayne SL, De KL, Magdy EM, Daksha KG, AJ, Zoe ES. The clinician's guide to prevention and treatment of osteoporosis. Osteoporos Int. 2021;33(10):2995-7531. doi: 10.1007/a52901-803-84803-u. Epub 2021Mar 08. Erratum in: Osteoporos Int. 2021Jun 07;: PMID: [id number]; PMCID: [id number]. Electronically authenticated by: SENIA MAYORGA Date: 06/23/2024 06:41
--- OUTSIDE RECORDS SUMMARY | 2024-06-22 11:46 | XMS_ITS | CCD ---
Author Organization [facility] CliniSyoh Care Team Providers Care Special Effects Specialist Name Role Phone UNKNOWN, PROVIDER Attending Unavailable [...] DR BARRERA Attending Unavailable HOY ., DR BARERRA Admitting Unavailable HOY ., DR BARRERA Consulting [...] 04-16-2022 Episodic Other aftercare (4 sources) Other residential (current) drug therapy; Translations: [OTH [facility] CURRENT DRUG THERAPY] Onset: 06-04-2022 Episodic Other [...] Range Facility Office Visiton 12-13-2023 Follow-up visit [id number] Inez Juarez 1940 F Date Provider Department Center 12/13/2023 JENN AMANDA BARBRA [place] Family History Problem Relation Age of Onset Hypertension Mother Coronary artery disease Father Hypertension Father Family Status - Relation Status Age at Mother Father Level of Service:41545 [place] OFFICE/OUTPATIENT ESTABLISHED MOD MDM 30 MIN Normal [facility] Office Visiton 10-30-2023 Follow-up visit [id number] Inez Juarez 1940 F Date Provider Department Center 10/30/2023 JENN AMANDA BARBRA [place] Family History Problem Relation Age of Onset Hypertension Mother Coronary artery disease Father Hypertension Father Family Status - Relation Status Age at Mother Father Level of Service:95401 [place] OFFICE/OUTPATIENT ESTABLISHED MOD MDM 30 MIN Normal [facility] HPon 10-22-2023 HP History Of Present [...] a past medical history of Atrial fibrillation ([facility]), CHF (congestive heart failure) ([facility]), Chronic kidney disease, GERD (gastroesophageal reflux [...] Results Reviewed Relevant (more content not included)... [facility] NURSNOTEon 10-22-2023 NURSNOTE RN educated pt on d/c instructions. RN encouraged pt to voice any questions or concerns. Pt verbalizes no questions or concerns at this time. [facility] Office Visiton 05-20-2023 Follow-up visit [id number] Inez Juarez 1940 F Date Provider Department Center 05/20/2023 JENN AMANDA [facility] Family History Problem Relation Age of Onset Hypertension Mother Coronary artery disease Father Hypertension Father Family Status - Relation Status Age at Mother Father Level of Service:12646 [place] OFFICE/OUTPATIENT ESTABLISHED MOD MDM 30-39 MIN Reason for Visit and Comments: Shortness of Breath [008904] Fatigue [46] Follow-up [461572] [facility] BNPon 03-22-2023 Natriuretic peptide B (Bld) [Mass/Vol] 1423.0 pg/mL Normal <=1,800.0 [facility] Comment on above: Performed By: #### B VOUCHER CLERK, CMP, TSH, LIPID #### [facility] [address] [address] [address] Reji Thomas CBC AUTO DIFFon 03-22-2023 BASO # 0.1 103/ul Normal 0.0-0.1 [facility] Comment on above: Performed By: #### B MP #### [facility] [address] [address] [address] Reji Thomas Basophils/100 WBC (Bld) 1.0 % Normal 0.2-2.0 [facility] Comment on above: Performed By: #### B MP #### [facility] [address] [address] [address] Reji Thomas EO # 0.2 103/ul Normal 0.0-0.7 [facility] Comment on above: Performed By: #### B MP #### [facility] [address] [place] [address] Dr. Reji Thomas Eosinophils/100 WBC (Bld) 3.3 % Normal 0.9-7.0 [facility] Comment on above: Performed By: #### B MP #### [facility] [address] [place] [address] Dr. Reji Thomas Erythrocyte distribution width (RBC) [Ratio] 15.4 % Critically high 11.0-15.0 [facility] Comment on above: Performed By: #### B MP #### [facility] [address] [place] [address] Dr. Reji Thomas Hematocrit (Bld) [Volume fraction] 35.2 % Critically low 36.0-48.0 [facility] Comment on above: Performed By: #### B MP #### [facility] [address] [place] [address] Dr. Reji Thomas Hemoglobin (Bld) [Mass/Vol] 11.4 g/dL Critically low 12.0-16.0 [facility] Comment on above: Performed By: #### B MP #### [facility] [address] [place] [address] Dr. Reji Thomas IG # 0.02 10e3/ul Normal 0.00-0.03 [facility] Comment on above: Performed By: #### B MP #### [facility] [address] [place] [address] Dr. Reji Thomas IG % 0.3 % Normal 0.0-0.5 [facility] Comment on above: Performed By: #### B MP #### [facility] [address] [place] [address] Dr. Reji Thomas LYMPH # 1.4 103/ul Normal 1.2-3.8 [facility] Comment on above: Performed By: #### B MP #### [facility] [address] [place] [address] Dr. Reji Thomas Lymphocytes/100 WBC (Bld) 22.6 % Normal 20.5-60.0 [facility] Comment on above: Performed By: #### B MP #### [facility] [address] [place] [address] Dr. Reji Thomas MANUAL DIFF REQ NO Normal [facility] Comment on above: Performed By: #### B MP #### [facility] [address] [place] [address] Dr. Reji Thomas MCH (RBC) [Entitic mass] 27.0 pg Normal 26.7-34.0 [facility] Comment on above: Performed By: #### B MP #### [facility] [address] [place] [address] Dr. Reji Thomas MCHC (RBC) [Mass/Vol] 32.4 g/dL Normal 29.9-35.2 [facility] Comment on above: Performed By: #### B MP #### [facility] [address] [place] [address] Dr. Reji Thomas MCV (RBC) [Entitic vol] 83.2 fL Normal 81.0-99.0 [facility] Comment on above: Performed By: #### B MP #### [facility] [address] [place] [address] Dr. Reji Thomas MONO # 0.5 103/ul Normal 0.3-0.8 [facility] Comment on above: Performed By: #### B MP #### [facility] [address] [place] [address] Dr. Reji Thomas Monocytes/100 WBC (Bld) 8.5 % Normal 1.7-12.0 [facility] Comment on above: Performed By: #### B MP #### [facility] [address] [place] [address] Dr. Reji Thomas NEUT # 4.0 103/ul Normal 1.4-6.5 [facility] Comment on above: Performed By: #### B MP #### [facility] [address] [place] [address] Dr. Reji Thomas Neutrophils/100 WBC (Bld) 64.3 % Normal 43.0-75.0 [facility] Comment on above: Performed By: #### B MP #### [facility] [address] [address] [address] Reji Thomas Platelet mean volume (Bld) [Entitic vol] 8.9 fL Critically low 9.5-13.5 [facility] Comment on above: Performed By: #### B MP #### [facility] [address] [address] [address] Reji Thomas PLT 226 103/ul Normal 150-450 [facility] Comment on above: Performed By: #### B MP #### [facility] [address] [address] [address] Reji Thomas RBC 4.23 106/ul Normal 4.20-5.40 [facility] Comment on above: Performed By: #### B MP #### [facility] [address] [address] [address] Reji Thomas WBC 6.3 103/ul Normal 4.0-11.0 [facility] Comment on above: Performed By: #### B MP #### [facility] [address] [address] [address] Reji Thomas FREE THYROXINE INDEX T7on FTI 2.40 Normal 1.30-4.50 [facility] Comment on above: Performed By: #### B VOUCHER CLERK, CMP, TSH, LIPID #### [facility] [address] [address] [address] Reji Thomas T3U 32.0 % Normal 30.0-39.0 [facility] Comment on above: Performed By: #### B VOUCHER CLERK, CMP, TSH, LIPID #### [facility] [address] [address] [address] Reji Thomas T4 [Mass/Vol] 7.50 ug/dL Normal 4.80-13.90 [facility] Comment on above: Performed By: #### B VOUCHER CLERK, CMP, TSH, LIPID #### [facility] [address] [place] [address] Dr. Reji Thomas GLYCOHEMOGLOBIN A1Con 2022 ADA RECOMMENDATION SEE BELOW Normal [facility] Comment on above: Result Comment: ADA RECOMMENDED LIMIT 4.0 - 6.0 ADA THERAPEUTIC TARGET < 7.0 ACTION SUGGESTED > 7.0 Performed By: #### B VOUCHER CLERK, CMP, TSH, LIPID #### [facility] [address] [address] [address] Reji Thomas Glucose [Mass/Vol] 97 mg/dL Normal [facility] Comment on above: Performed By: #### B VOUCHER CLERK, CMP, TSH, LIPID #### [facility] [address] [address] [address] Reji Thomas HbA1c (Bld) [Mass fraction] 5.0 % Normal 4.5-6.2 [facility] Comment on above: Performed By: #### B VOUCHER CLERK, CMP, TSH, LIPID #### [facility] [address] [place] [address] Dr. Reji Thomas IRONon 03-22-2023 Iron [Mass/Vol] 47.0 ug/dL Critically low 50.0-170.0 [facility] Comment on above: Performed By: #### B VOUCHER CLERK, CMP, TSH, LIPID #### [facility] [address] [place] [address] Dr. Reji Thomas LIPID PROFILEon 03-22-2023 CHOL-HDL RATIO NORM SEE BELOW Normal [facility] Comment on above: Result Comment: 3.3 - 4.4 LOW RISK 4.4 - 7.1 AVERAGE RISK 7.1 - 11.0 MODERATE RISK >11.0 HIGH RISK Performed By: #### M G, TSH, LIPID, T7, CMP, BNP #### [facility] [address] [place] [address] Dr. Reji Thomas Cholesterol [Mass/Vol] 188 mg/dL Normal <=200 [facility] Comment on above: Performed By: #### M G, TSH, LIPID, T7, CMP, BNP #### [facility] [address] [place] [address] Dr. Reji Thomas Cholesterol in HDL [Mass/Vol] 53 mg/dL Normal 40-60 [facility] Comment on above: Performed By: #### M G, TSH, LIPID, T7, CMP, BNP #### [facility] [address] [address] [address] Reji Thomas Cholesterol in LDL [Mass/Vol] 111.6 mg/dL Normal [facility] Comment on above: Performed By: #### M G, TSH, LIPID, T7, CMP, BNP #### [facility] [address] [address] [address] Reji Thomas Cholesterol.total/Ch olesterol in HDL [Mass ratio] 3.5 {ratio} Normal [facility] Comment on above: Performed By: #### M G, TSH, LIPID, T7, CMP, BNP #### [facility] [address] [address] [address] Reji Thomas HDL NORMAL > or = 60 mg/dl - LOW CARDIOVASCULAR RISK <40 mg/dl - HIGH CARDIOVASCULAR RISK Normal [facility] Comment on above: Performed By: #### M G, TSH, LIPID, T7, CMP, BNP #### [facility] [address] [address] [address] Reji Thomas LDL CALC NORMAL SEE BELOW Normal [facility] Comment on above: Result Comment: <100 mg/dl OPTIMAL 100 - 129 mg/dl NEAR OR ABOVE OPTIMAL 130 - 159 mg/dl BORDERLINE HIGH 160 - 189 mg/dl HIGH >190 mg/dl VERY HIGH Performed By: #### M G, TSH, LIPID, T7, CMP, BNP #### [facility] [address] [address] [address] Reji Thomas Triglyceride [Mass/Vol] 117 mg/dL Normal <=150 [facility] Comment on above: Performed By: #### M G, TSH, LIPID, T7, CMP, BNP #### [facility] [address] [address] [address] Reji Thomas VLDL CALC 23.4 mg/dL Normal [facility] Comment on above: Performed By: #### M G, TSH, LIPID, T7, CMP, BNP #### [facility] [address] [address] [address] Reji Thomas MAGNESIUMon 03-22-2023 Magnesium [Mass/Vol] 2.4 mg/dL Normal 1.8-2.4 [facility] Comment on above: Performed By: #### B VOUCHER CLERK, CMP, TSH, LIPID #### [facility] [address] [place] [address] Dr. Reji Thomas PROF 14(COMP METB)on 023 Albumin [Mass/Vol] 3.4 g/dL Normal 3.4-5.0 [facility] Comment on above: Performed By: #### M G, TSH, LIPID, T7, CMP, BNP #### [facility] [address] [place] [address] Dr. Reji Thomas Albumin/Globulin [Mass ratio] 0.8 {ratio} Normal [facility] Comment on above: Performed By: #### M G, TSH, LIPID, T7, CMP, BNP #### [facility] [address] [place] [address] Dr. Reji Thomas ALP [Catalytic activity/Vol] 61 U/L Normal 46-116 [facility] Comment on above: Performed By: #### M G, TSH, LIPID, T7, CMP, BNP #### [facility] [address] [place] [address] Dr. Reji Thomas ALT [Catalytic activity/Vol] 15 U/L Normal 14-59 [facility] Comment on above: Performed By: #### M G, TSH, LIPID, T7, CMP, BNP #### [facility] [address] [place] [address] Dr. Reji Thomas Anion gap [Moles/Vol] 13.1 mmol/L Normal [facility] Comment on above: Performed By: #### M G, TSH, LIPID, T7, CMP, BNP #### [facility] [address] [place] [address] Dr. Reji Thomas AST [Catalytic activity/Vol] 13 U/L Critically low 15-37 [facility] Comment on above: Performed By: #### M G, TSH, LIPID, T7, CMP, BNP #### [facility] [address] [place] [address] Dr. Reji Thomas Bilirubin [Mass/Vol] 0.4 mg/dL Normal 0.2-1.0 [facility] Comment on above: Performed By: #### M G, TSH, LIPID, T7, CMP, BNP #### [facility] [address] [address] [address] Reji Thomas Calcium [Mass/Vol] 8.5 mg/dL Normal 8.5-10.1 [facility] Comment on above: Performed By: #### M G, TSH, LIPID, T7, CMP, BNP #### [facility] [address] [address] [address] Reji Thomas Chloride [Moles/Vol] 106 mmol/L Normal 98-107 [facility] Comment on above: Performed By: #### M G, TSH, LIPID, T7, CMP, BNP #### [facility] [address] [address] [address] Reji Thomas CO2 [Moles/Vol] 27.6 mmol/L Normal 21.0-32.[address] [facility] Comment on above: Performed By: #### M G, TSH, LIPID, T7, CMP, BNP #### [facility] [address] [address] [address] Reji Thomas Creatinine [Mass/Vol] 2.32 mg/dL Critically high 0.55-1.02 [facility] Comment on above: Performed By: #### M G, TSH, LIPID, T7, CMP, BNP #### [facility] [address] [place] [address] Dr. Reji Thomas EGFR-AF SLOVENIAN 24 mL/min/1.73m2 Critically low >=60 [facility] Comment on above: Performed By: #### M G, TSH, LIPID, T7, CMP, BNP #### [facility] [address] [address] [address] Reji Thomas EGFR-NON AF SLOVENIAN 20 mL/min/1.73m2 Critically low >=60 [facility] Comment on above: Performed By: #### M G, TSH, LIPID, T7, CMP, BNP #### [facility] [address] [address] [address] Reji Thomas Globulin (S) [Mass/Vol] 4.3 g/dL Normal [facility] Comment on above: Performed By: #### M G, TSH, LIPID, T7, CMP, BNP #### [facility] [address] [address] [address] Reji Thomas Glucose [Mass/Vol] 88 mg/dL Normal 74-106 [facility] Comment on above: Performed By: #### M G, TSH, LIPID, T7, CMP, BNP #### [facility] [address] [address] [address] Reji Thomas Potassium [Moles/Vol] 4.7 mmol/L Normal 3.5-5.1 [facility] Comment on above: Performed By: #### M G, TSH, LIPID, T7, CMP, BNP #### [facility] [address] [place] [address] Dr. Reji Thomas Protein [Mass/Vol] 7.7 g/dL Normal 6.4-8.2 [facility] Comment on above: Performed By: #### M G, TSH, LIPID, T7, CMP, BNP #### [facility] [address] [address] [address] Reji Thomas Sodium [Moles/Vol] 142 mmol/L Normal 136-145 [facility] Comment on above: Performed By: #### M G, TSH, LIPID, T7, CMP, BNP #### [facility] [address] [place] [address] Dr. Reji Thomas Urea nitrogen [Mass/Vol] 38.0 mg/dL Critically high 7.0-18.0 [facility] Comment on above: Performed By: #### M G, TSH, LIPID, T7, CMP, BNP #### [facility] [address] [place] [address] Dr. Reji Thomas Urea nitrogen/Creatinine [Mass ratio] 16.4 mg/mg Normal [facility] Comment on above: Performed By: #### M G, TSH, LIPID, T7, CMP, BNP #### [facility] [address] [address] [address] Reji Thomas PROTIMEon 03-22-2023 INR Coag (PPP) [Relative time] 1.98 {INR} Normal [facility] Comment on above: Performed By: #### P T #### [facility] [address] [place] [address] Dr. Reji Thomas INR GUIDELINES SEE BELOW Normal [facility] Comment on above: Result Comment: SHY RED INR: 2.0 - 3.0 CONDITIONS NOT LISTED BELOW 2.5 - 3.5 FOR PROSTHETIC HEART VALVE REPLACEMENT 2.5 - 3.5 RECURRENT THROMBOSIS Performed By: #### P T #### [facility] [address] [place] [address] Dr. Reji Thomas PT Coag (PPP) [Time] 20.2 s Critically high 9.0-11.6 [facility] Comment on above: Performed By: #### P T #### [facility] [address] [place] [address] Dr. Reji Thomas TSHon 03-22-2023 TSH 2.265 uIU/mL Normal 0.358-3.740 [facility] Comment on above: Performed By: #### B VOUCHER CLERK, CMP, TSH, LIPID #### [facility] [address] [place] [address] Dr. Reji Thomas VITAMIN D 25 OHon 03-22-2023 VIT D 25-OH 53.1 ng/mL Normal [facility] Comment on above: Performed By: #### B MP #### [facility] [address] [place] [address] Dr. Reji Thomas VIT D RANGES SEE BELOW Normal [facility] Comment on above: Result Comment: <20 ng/mL Vit D deficient 20 - <30 ng/mL Vit D insufficient 30 - 100 ng/mL Vit D sufficient >100 ng/mL Potential Toxicity Performed By: #### B MP #### [facility] [address] [place] [address] Dr. Reji Thomas PROTIMEon 02-22-2023 INR Coag (PPP) [Relative time] 2.22 {INR} Normal [facility] Comment on above: Performed By: #### B VOUCHER CLERK, CMP, TSH, LIPID #### [facility] [address] [place] [address] Dr. Reji Thomas INR GUIDELINES SEE BELOW Normal [facility] Comment on above: Result Comment: SHY RED INR: 2.0 - 3.0 CONDITIONS NOT LISTED BELOW 2.5 - 3.5 FOR PROSTHETIC HEART VALVE REPLACEMENT 2.5 - 3.5 RECURRENT THROMBOSIS Performed By: #### B VOUCHER CLERK, CMP, TSH, LIPID #### [facility] [address] [place] [address] Dr. Reji Thomas PT Coag (PPP) [Time] 22.5 s Critically high 9.0-11.6 [facility] Comment on above: Performed By: #### B VOUCHER CLERK, CMP, TSH, LIPID #### [facility] [address] [place] [address] Dr. Reji Thomas PROTIMEon 01-03-2023 INR Coag (PPP) [Relative time] 2.53 {INR} Normal [facility] Comment on above: Performed By: #### B MP #### [facility] [address] [place] [address] Dr. Reji Thomas INR GUIDELINES SEE BELOW Normal [facility] Comment on above: Result Comment: SHY RED INR: 2.0 - 3.0 CONDITIONS NOT LISTED BELOW 2.5 - 3.5 FOR PROSTHETIC HEART VALVE REPLACEMENT 2.5 - 3.5 RECURRENT THROMBOSIS Performed By: #### B MP #### [facility] [address] [place] [address] Dr. Reji Thomas PT Coag (PPP) [Time] 25.4 s Critically high 9.0-11.6 [facility] Comment on above: Performed By: #### B MP #### [facility] [address] [place] [address] Dr. Reji Thomas PROTIMEon 11-23-2022 INR Coag (PPP) [Relative time] 1.71 {INR} Normal [facility] Comment on above: Performed By: #### B VOUCHER CLERK, CMP, TSH, LIPID #### [facility] [address] [place] [address] Dr. Reji Thomas INR GUIDELINES SEE BELOW Normal [facility] Comment on above: Result Comment: SHY RED INR: 2.0 - 3.0 CONDITIONS NOT LISTED BELOW 2.5 - 3.5 FOR PROSTHETIC HEART VALVE REPLACEMENT 2.5 - 3.5 RECURRENT THROMBOSIS Performed By: #### B VOUCHER CLERK, CMP, TSH, LIPID #### [facility] [address] [place] [address] Dr. Reji Thomas PT Coag (PPP) [Time] 17.6 s Critically high 9.0-11.6 [facility] Comment on above: Performed By: #### B VOUCHER CLERK, CMP, TSH, LIPID #### [facility] [address] [place] [address] Dr. Reji Thomas PROTIMEon 10-10-2022 INR Coag (PPP) [Relative time] 2.52 {INR} Normal [facility] Comment on above: Performed By: #### B VOUCHER CLERK, CMP, TSH, LIPID #### [facility] [address] [place] [address] Dr. Reji Thomas INR GUIDELINES SEE BELOW Normal [facility] Comment on above: Result Comment: SHY RED INR: 2.0 - 3.0 CONDITIONS NOT LISTED BELOW 2.5 - 3.5 FOR PROSTHETIC HEART VALVE REPLACEMENT 2.5 - 3.5 RECURRENT THROMBOSIS Performed By: #### B VOUCHER CLERK, CMP, TSH, LIPID #### [facility] [address] [place] [address] Dr. Reji Thomas PT Coag (PPP) [Time] 25.6 s Critically high 9.0-11.6 [facility] Comment on above: Performed By: #### B VOUCHER CLERK, CMP, TSH, LIPID #### [facility] [address] [place] [address] Dr. Reji Thomas PROTIMEon 09-05-2022 INR Coag (PPP) [Relative time] 2.03 {INR} Normal [facility] Comment on above: Performed By: #### B VOUCHER CLERK, CMP, TSH, LIPID #### [facility] [address] [place] [address] Dr. Reji Thomas INR GUIDELINES SEE BELOW Normal [facility] Comment on above: Result Comment: SHY RED INR: 2.0 - 3.0 CONDITIONS NOT LISTED BELOW 2.5 - 3.5 FOR PROSTHETIC HEART VALVE REPLACEMENT 2.5 - 3.5 RECURRENT THROMBOSIS Performed By: #### B VOUCHER CLERK, CMP, TSH, LIPID #### [facility] [address] [place] [address] Dr. Reji Thomas PT Coag (PPP) [Time] 20.9 s Critically high 9.0-11.6 [facility] Comment on above: Performed By: #### B VOUCHER CLERK, CMP, TSH, LIPID #### [facility] [address] [place] [address] Dr. Reji Thomas BNPon 08-10-2022 Natriuretic peptide B (Bld) [Mass/Vol] 1162.0 pg/mL Normal <=1,800.0 [facility] Comment on above: Performed By: #### B MP, BNP #### [facility] [address] [place] [address] Dr. Reji Thomas PROF CHEM 8 (BAS METB)on Anion gap [Moles/Vol] 11.3 mmol/L Normal [facility] Comment on above: Performed By: #### B MP, BNP #### [facility] [address] [place] [address] Dr. Reji Thomas Calcium [Mass/Vol] 8.9 mg/dL Normal 8.5-10.1 [facility] Comment on above: Performed By: #### B MP, BNP #### [facility] [address] [place] [address] Dr. Reji Thomas Chloride [Moles/Vol] 103 mmol/L Normal 98-107 [facility] Comment on above: Performed By: #### B MP, BNP #### [facility] [address] [place] [address] Dr. Reji Thomas CO2 [Moles/Vol] 28.2 mmol/L Normal 21.0-32.0 [facility] Comment on above: Performed By: #### B MP, BNP #### [facility] [address] [place] [address] Dr. Reji Thomas Creatinine [Mass/Vol] 2.07 mg/dL Critically high 0.55-1.02 [facility] Comment on above: Performed By: #### B MP, BNP #### [facility] [address] [address] [address] Reji Thomas EGFR-AF SLOVENIAN 28 mL/min/1.73m2 Critically low >=60 [facility] Comment on above: Performed By: #### B MP, BNP #### [facility] [address] [address] [address] Reji Thomas EGFR-NON AF SLOVENIAN 23 mL/min/1.73m2 Critically low >=60 [facility] [facility] Comment on above: Performed By: #### B MP, BNP #### [facility] [address] [address] [address] Reji Thomas Glucose [Mass/Vol] 88 mg/dL Normal 74-106 [facility] Comment on above: Performed By: #### B MP, BNP #### [facility] [address] [address] [address] Reji Thomas Potassium [Moles/Vol] 4.5 mmol/L Normal 3.5-5.1 [facility] Comment on above: Performed By: #### B MP, BNP #### [facility] [address] [address] [address] Reji Thomas Sodium [Moles/Vol] 138 mmol/L Normal 136-145 [facility] Comment on above: Performed By: #### B MP, BNP #### [facility] [address] [address] [address] Reji Thomas Urea nitrogen [Mass/Vol] 35.0 mg/dL Critically high 7.0-18.0 [facility] Comment on above: Performed By: #### B MP, BNP #### [facility] [address] [address] [address] Reji Thomas Urea nitrogen/Creatinine [Mass ratio] 16.9 mg/mg Normal [facility] Comment on above: Performed By: #### B MP, BNP #### [facility] [address] [address] [address] Reji Thomas PROTIMEon 08-09-2022 INR Coag (PPP) [Relative time] 2.04 {INR} Normal [facility] Comment on above: Performed By: #### B VOUCHER CLERK, CMP, TSH, LIPID #### [facility] [address] [place] [address] Dr. Reji Thomas INR GUIDELINES SEE BELOW Normal [facility] Comment on above: Result Comment: SHY RED INR: 2.0 - 3.0 CONDITIONS NOT LISTED BELOW 2.5 - 3.5 FOR PROSTHETIC HEART VALVE REPLACEMENT 2.5 - 3.5 RECURRENT THROMBOSIS Performed By: #### B VOUCHER CLERK, CMP, TSH, LIPID #### [facility] [address] [place] [address] Dr. Reji Thomas PT Coag (PPP) [Time] 21.0 s Critically high 9.0-11.6 [facility] Comment on above: Performed By: #### B VOUCHER CLERK, CMP, TSH, LIPID #### [facility] [address] [place] [address] Dr. Reji Thomas BNPon 07-09-2022 Natriuretic peptide B (Bld) [Mass/Vol] 2085.0 pg/mL Critically high <=1,800.0 [facility] Comment on above: Result Comment: CRIT ICAL CALLED TO OFFICE ON 07-10-22 AT 0850 BY AR Performed By: #### B VOUCHER CLERK, CMP, TSH, LIPID #### [facility] [address] [place] [address] Dr. Reji Thomas PROF CHEM 8 (BAS METB)on Anion gap [Moles/Vol] 13.7 mmol/L Normal [facility] Comment on above: Performed By: #### B VOUCHER CLERK, CMP, TSH, LIPID #### [facility] [address] [place] [address] Dr. Reji Thomas Calcium [Mass/Vol] 8.3 mg/dL Critically low 8.5-10.1 [facility] Comment on above: Performed By: #### B VOUCHER CLERK, CMP, TSH, LIPID #### [facility] [address] [place] [address] Dr. Reji Thomas Chloride [Moles/Vol] 104 mmol/L Normal 98-107 [facility] Comment on above: Performed By: #### B VOUCHER CLERK, CMP, TSH, LIPID #### [facility] [address] [address] [address] Reji Thomas CO2 [Moles/Vol] 26.6 mmol/L Normal 21.0-32.[address] [facility] Comment on above: Performed By: #### B VOUCHER CLERK, CMP, TSH, LIPID #### [facility] [address] [address] [address] Reji Thomas Creatinine [Mass/Vol] 1.98 mg/dL Critically high 0.55-1.02 [facility] Comment on above: Performed By: #### B VOUCHER CLERK, CMP, TSH, LIPID #### [facility] [address] [place] [address] Dr. Reji Thomas EGFR-AF SLOVENIAN 29 mL/min/1.73m2 Critically low >=60 [facility] Comment on above: Performed By: #### B VOUCHER CLERK, CMP, TSH, LIPID #### [facility] [address] [place] [address] Dr. Reji Thomas EGFR-NON AF SLOVENIAN 24 mL/min/1.73m2 Critically low >=60 [facility] Comment on above: Performed By: #### B VOUCHER CLERK, CMP, TSH, LIPID #### [facility] [address] [place] [address] Dr. Reji Thomas Glucose [Mass/Vol] 116 mg/dL Critically high 74-106 [facility] Comment on above: Performed By: #### B VOUCHER CLERK, CMP, TSH, LIPID #### [facility] [address] [place] [address] Dr. Reji Thomas Potassium [Moles/Vol] 4.3 mmol/L Normal 3.5-5.1 [facility] Comment on above: Performed By: #### B VOUCHER CLERK, CMP, TSH, LIPID #### [facility] [address] [place] [address] Dr. Reji Thomas Sodium [Moles/Vol] 140 mmol/L Normal 136-145 [facility] Comment on above: Performed By: #### B VOUCHER CLERK, CMP, TSH, LIPID #### [facility] [address] [place] [address] Dr. Reji Thomas Urea nitrogen [Mass/Vol] 35.0 mg/dL Critically high 7.0-18.0 [facility] Comment on above: Performed By: #### B VOUCHER CLERK, CMP, TSH, LIPID #### [facility] [address] [place] [address] Dr. Reji Thomas Urea nitrogen/Creatinine [Mass ratio] 17.7 mg/mg Normal [facility] Comment on above: Performed By: #### B VOUCHER CLERK, CMP, TSH, LIPID #### [facility] [address] [place] [address] Dr. Reji Thomas PROTIMEon 07-09-2022 INR Coag (PPP) [Relative time] 2.99 {INR} Normal [facility] Comment on above: Performed By: #### B VOUCHER CLERK, CMP, TSH, LIPID #### [facility] [address] [place] [address] Dr. Reji Thomas INR GUIDELINES SEE BELOW Normal [facility] Comment on above: Result Comment: SHY RED INR: 2.0 - 3.0 CONDITIONS NOT LISTED BELOW 2.5 - 3.5 FOR PROSTHETIC HEART VALVE REPLACEMENT 2.5 - 3.5 RECURRENT THROMBOSIS Performed By: #### B VOUCHER CLERK, CMP, TSH, LIPID #### [facility] [address] [place] [address] Dr. Reji Thomas PT Coag (PPP) [Time] 30.1 s Critically high 9.0-11.6 [facility] Comment on above: Performed By: #### B VOUCHER CLERK, CMP, TSH, LIPID #### [facility] [address] [place] [address] Dr. Reji Thomas US KIDNEYSon 07-06-2022 US [...] by: SIGRID RICHMOND Date: 2022-07-06 13:31 Normal [facility] EVAN Antinuclear Antibodieson 06-19-2022 Antinuclear Abs, IFA Positive Critically abnormal . [facility] Comment on above: Result Comment: Nega tive <1:80 Borderline 1:80 Positive >1:80 Performed By: #### Krista CHWO ADDONUAPLUS #### [facility] [address] [place] [address] #### C3, C4, CH50 #### [facility] , Homogeneous Pattern 1:320 High . [facility] Comment on above: Result Comment: ICAP nomenclature: [id number] Performed By: #### C UJoel, ADDONUAPLUS #### [facility] [address] [place] [address] #### C3, C4, CH50 #### [facility] , Note 1 Normal . [facility] Comment on above: Result Comment: For more [...] titers Nucleosomes, Histones Drug-induced SLE Speckled Sm, PICK REMOVER, SCL-70, SLE,MCTD,PSS (diffuse form), SS-A/SS-B Sjogrens Nucleolar SCL-70, PM-1/SCL High titers Scleroderma, PM/DM Centromere Centromere PSS (limited form) w/Crest syndrome variable Nuclear Dot [id number] Primary Biliary Cirrhosis Nuclear GP210, Primary Biliary Cirrhosis Membrane eleonora A,B,C Performed at: [address] [id number] Press Writer: Demarcus Lawton PhD, Phone: [phone] Performed By: #### C UU, ADDONUAPLUS #### [address] #### C3, C4, CH50 #### [facility] , Anti-RNPon 06-19-2022 Anti-PICK REMOVER 0.4 Normal 0.0-0.9 [facility] Comment on above: Result Comment: Perf ormed at: [address] [id number] Press Writer: Demarcus Lawton PhD, Phone: [phone] Performed By: #### C UU, ADDONUAPLUS #### [address] #### C3, C4, CH50 #### [facility] , C-Reactive Proteinon 022 C-Reactive Protein 2.0 mg/dL High 0.0-1.0 [facility] Comment on above: Result Comment: PERF ORMED BY: [place] [address] PATHOLOGIST AUTOMOTIVE ACCESSORY INSTALLER RADHA BULLARD M.D. Performed By: #### C UU, ADDONUAPLUS #### [address] #### C3, C4, CH50 #### [facility] , Complement C3on 06-19-2022 Complement C3 167 mg/dL Normal 82-167 [facility] Comment on above: Result Comment: Perf ormed at: [address] [address] Press Writer: Demarcus Lawton PhD, Phone: [phone] Performed By: #### C UU, ADDONUAPLUS #### [facility] [address] #### C3, C4, CH50 #### [facility] , Complement C4on 06-19-2022 Complement C4 37 mg/dL Normal 12-38 [facility] Comment on above: Performed By: #### C UU, ADDONUAPLUS #### [address] #### C3, C4, CH50 #### [facility] , Complement Total (CH50)on Complement Total (CH50) >60 Normal >41 [facility] Comment on above: Result Comment: Age Male [...] of range values. Performed at: - [facility] [address] [id number] Press Writer: Demarcus Lawton PhD, Phone: [phone] PERFORMED BY: [place] [address] PATHOLOGIST AUTOMOTIVE ACCESSORY INSTALLER RADHA BULLARD M.D. Performed By: #### C UU, ADDONUAPLUS #### [address] #### C3, C4, CH50 #### [facility] , Complete Blood Count Auto Di ffon 06-19-2022 Basophils (Bld) [#/Vol] 0.1 10*3/uL Normal 0.0-0.2 [facility] Comment on above: Performed By: #### H EPATIC, CBC, ESR, CRP, CREAT, CK #### [address] #### RNA POLYMR, ANTI TH TO, EVAN, U3 PICK REMOVER, ANTIR, PM-SCL ABS #### [facility] , Basophils/100 WBC (Bld) 0.9 % Normal . [facility] Comment on above: Performed By: #### H EPATIC, CBC, ESR, CRP, CREAT, CK #### [address] #### RNA POLYMR, ANTI TH TO, EVAN, U3 PICK REMOVER, ANTIR, PM-SCL ABS #### [facility] , Eosinophils (Bld) [#/Vol] 0.5 10*3/uL High 0.0-0.45 [facility] Comment on above: Performed By: #### H EPATIC, CBC, ESR, CRP, CREAT, CK #### [address] #### RNA POLYMR, ANTI TH TO, EVAN, U3 PICK REMOVER, ANTIR, PM-SCL ABS #### [facility] , Eosinophils/100 WBC (Bld) 8.6 % Normal . [facility] Comment on above: Performed By: #### H EPATIC, CBC, ESR, CRP, CREAT, CK #### [place] [address] [place] #### RNA POLYMR, ANTI TH TO, EVAN, U3 PICK REMOVER, ANTIR, PM-SCL ABS #### [facility] , Erythrocyte distribution width (RBC) [Ratio] 19.6 % High 11.9-15.3 [facility] Comment on above: Performed By: #### H EPATIC, CBC, ESR, CRP, CREAT, CK #### [place] [address] [place] #### RNA POLYMR, ANTI TH TO, EVAN, U3 PICK REMOVER, ANTIR, PM-SCL ABS #### [facility] , Hematocrit (Bld) [Volume fraction] 33.8 % Low 34.0-46.4 [facility] Comment on above: Performed By: #### H EPATIC, CBC, ESR, CRP, CREAT, CK #### [place] [address] [place] #### RNA POLYMR, ANTI TH TO, EVAN, U3 PICK REMOVER, ANTIR, PM-SCL ABS #### [facility] , Hemoglobin (Bld) [Mass/Vol] 10.9 g/dL Low 11.8-15.4 [facility] Comment on above: Performed By: #### H EPATIC, CBC, ESR, CRP, CREAT, CK #### [place] [address] [place] #### RNA POLYMR, ANTI TH TO, EVAN, U3 PICK REMOVER, ANTIR, PM-SCL ABS #### [facility] , Lymphocytes (Bld) [#/Vol] 1.1 10*3/uL Normal 1.00-4.8 [facility] Comment on above: Performed By: #### H EPATIC, CBC, ESR, CRP, CREAT, CK #### [place] [address] [place] #### RNA POLYMR, ANTI TH TO, EVAN, U3 PICK REMOVER, ANTIR, PM-SCL ABS #### [facility] , Lymphocytes/100 WBC (Bld) 17.8 % Normal . [facility] Comment on above: Performed By: #### H EPATIC, CBC, ESR, CRP, CREAT, CK #### [place] [address] [place] #### RNA POLYMR, ANTI TH TO, EVAN, U3 PICK REMOVER, ANTIR, PM-SCL ABS #### [facility] , MCH (RBC) [Entitic mass] 26.4 pg Normal 24.7-34.3 [facility] Comment on above: Performed By: #### H EPATIC, CBC, ESR, CRP, CREAT, CK #### [place] [address] [place] #### RNA POLYMR, ANTI TH TO, EVAN, U3 PICK REMOVER, ANTIR, PM-SCL ABS #### [facility] , MCV (RBC) [Entitic vol] 81.8 fL Normal 80-100 [facility] Comment on above: Performed By: #### H EPATIC, CBC, ESR, CRP, CREAT, CK #### [address] #### RNA POLYMR, ANTI TH TO, EAVN, U3 PICK REMOVER, ANTIR, PM-SCL ABS #### [facility] , Mean Corpuscular HGB Conc 32.3 g/dL Normal 32.0-35.0 [facility] Comment on above: Performed By: #### H EPATIC, CBC, ESR, CRP, CREAT, CK #### [address] #### RNA POLYMR, ANTI TH TO, EVAN, U3 PICK REMOVER, ANTIR, PM-SCL ABS #### [facility] , Monocytes (Bld) [#/Vol] 0.4 10*3/uL Normal 0.0-0.8 [facility] Comment on above: Performed By: #### H EPATIC, CBC, ESR, CRP, CREAT, CK #### [address] #### RNA POLYMR, ANTI TH TO, EVAN, U3 PICK REMOVER, ANTIR, PM-SCL ABS #### [facility] , Monocytes/100 WBC (Bld) 7.4 % Normal . [facility] Comment on above: Performed By: #### H EPATIC, CBC, ESR, CRP, CREAT, CK #### [place] [address] [place] #### RNA POLYMR, ANTI TH TO, EVAN, U3 PICK REMOVER, ANTIR, PM-SCL ABS #### [facility] , Neutrophils (Bld) [#/Vol] 3.9 10*3/uL Normal 1.8-7.7 [facility] Comment on above: Performed By: #### H EPATIC, CBC, ESR, CRP, CREAT, CK #### [place] [address] [place] #### RNA POLYMR, ANTI TH TO, EVAN, U3 PICK REMOVER, ANTIR, PM-SCL ABS #### [facility] , Neutrophils/100 WBC (Bld) 65.3 % Normal . [facility] Comment on above: Performed By: #### H EPATIC, CBC, ESR, CRP, CREAT, CK #### [place] [address] [place] #### RNA POLYMR, ANTI TH TO, EVAN, U3 PICK REMOVER, ANTIR, PM-SCL ABS #### [facility] , Nucleated RBC/100 WBC (Bld) [Ratio] 0.0 % Normal 0-0.5 [facility] Comment on above: Performed By: #### H EPATIC, CBC, ESR, CRP, CREAT, CK #### [place] [address] [place] #### RNA POLYMR, ANTI TH TO, EVAN, U3 PICK REMOVER, ANTIR, PM-SCL ABS #### [facility] , Platelet mean volume (Bld) [Entitic vol] 7.2 fL Normal 6.3-10.7 [facility] Comment on above: Performed By: #### H EPATIC, CBC, ESR, CRP, CREAT, CK #### [place] [address] [place] #### RNA POLYMR, ANTI TH TO, EVAN, U3 PICK REMOVER, ANTIR, PM-SCL ABS #### [facility] , Platelets (Bld) [#/Vol] 237 10*3/uL Normal 150-450 [facility] Comment on above: Performed By: #### H EPATIC, CBC, ESR, CRP, CREAT, CK #### [place] [address] [place] #### RNA POLYMR, ANTI TH TO, EVAN, U3 PICK REMOVER, ANTIR, PM-SCL ABS #### [facility] , RBC (Bld) [#/Vol] 4.14 10*6/uL Normal 3.60-5.00 [facility] Comment on above: Performed By: #### H EPATIC, CBC, ESR, CRP, CREAT, CK #### [address] #### RNA POLYMR, ANTI TH TO, EVAN, U3 PICK REMOVER, ANTIR, PM-SCL ABS #### [facility] , WBC (Bld) [#/Vol] 6.0 10*3/uL Normal 4.5-11.0 [facility] Comment on above: Performed By: #### H EPATIC, CBC, ESR, CRP, CREAT, CK #### [address] #### RNA POLYMR, ANTI TH TO, EVAN, U3 PICK REMOVER, ANTIR, PM-SCL ABS #### [facility] , Creatine Kinaseon 06-19-2022 CK [Catalytic activity/Vol] 38 U/L Normal 22-269 [facility] Comment on above: Result Comment: PERF ORMED BY: [place] [address] PATHOLOGIST AUTOMOTIVE ACCESSORY INSTALLER RADHA BULLARD M.D. Performed By: #### H EPATIC, CBC, ESR, CRP, CREAT, CK #### [address] #### RNA POLYMR, ANTI TH TO, EVAN, U3 PICK REMOVER, ANTIR, PM-SCL ABS #### [facility] , Creatinineon 06-19-2022 Creatinine [Mass/Vol] 2.82 mg/dL High 0.44-1.03 [facility] Comment on above: Performed By: #### H EPATIC, CBC, ESR, CRP, CREAT, CK #### [place] [address] [place] #### RNA POLYMR, ANTI TH TO, EVAN, U3 PICK REMOVER, ANTIR, PM-SCL ABS #### [facility] , Estimated GFR ( Oralia 19 Normal [facility] Comment on above: Result Comment: GFR estimated reference range: According to KDOQI guidelines, <60 ml/min/1.73m2 is sufficient to diagnose a patient with chronic kidney disease. Performed By: #### H EPATIC, CBC, ESR, CRP, CREAT, CK #### [facility] [address] [place] [address] [place] #### RNA POLYMR, ANTI TH TO, EVAN, U3 PICK REMOVER, ANTIR, PM-SCL ABS #### [facility] , Estimated GFR (Non- Am 16 Normal [facility] Comment on above: Performed By: #### H EPATIC, CBC, ESR, CRP, CREAT, CK #### [address] #### RNA POLYMR, ANTI TH TO, EVAN, U3 PICK REMOVER, ANTIR, PM-SCL ABS #### [facility] , Dipstick and Microscopicon 0 06-19-2022 Appearance (U) Cloudy Critically abnormal Clear [facility] Comment on above: Order Comment: Name Collection Type:: Clean-Voided Midstream Performed By: #### C UU, ADDONUAPLUS #### [address] #### C3, C4, CH50 #### [facility] , Bacteria,Urine 1+ High None Seen [facility] Comment on above: Order Comment: Name Collection Type:: Clean-Voided Midstream Performed By: #### C UU, ADDONUAPLUS #### [place] [address] [place] #### C3, C4, CH50 #### [facility] , Bilirubin,Urine Negative Normal Negative [facility] Comment on above: Order Comment: Name Collection Type:: Clean-Voided Midstream Performed By: #### C UU, ADDONUAPLUS #### [place] [address] [place] #### C3, C4, CH50 #### [facility] , Color (U) Yellow Normal Yellow [facility] Comment on above: Order Comment: Name Collection Type:: Clean-Voided Midstream Performed By: #### C UU, ADDONUAPLUS #### [facility] [address] [place] [address] #### C3, C4, CH50 #### [facility] , Glucose Ql (U) Normal Normal Normal [facility] Comment on above: Order Comment: Name Collection Type:: Clean-Voided Midstream Performed By: #### C UU, ADDONUAPLUS #### [address] #### C3, C4, CH50 #### [facility] , Hyaline Casts,Urine 1-2 Normal 0-8 [facility] Comment on above: Order Comment: Name Collection Type:: Clean-Voided Midstream Result Comment: PERF ORMED BY: [place] [address] PATHOLOGIST AUTOMOTIVE ACCESSORY INSTALLER RADHA BULLARD M.D. Performed By: #### C UU, ADDONUAPLUS #### [address] #### C3, C4, CH50 #### [facility] , Ketones Ql (U) Negative Normal Negative [facility] Comment on above: Order Comment: Name Collection Type:: Clean-Voided Midstream Performed By: #### C UU, ADDONUAPLUS #### [facility] [address] [place] [address] #### C3, C4, CH50 #### [facility] , Leukocyte esterase Test strip Ql (U) 4+ High Negative [facility] Comment on above: Order Comment: Name Collection Type:: Clean-Voided Midstream Performed By: #### C UU, ADDONUAPLUS #### [address] #### C3, C4, CH50 #### [facility] , Nitrite,Urine Negative Normal Negative [facility] Comment on above: Order Comment: Name Collection Type:: Clean-Voided Midstream Performed By: #### C UU, ADDONUAPLUS #### [address] #### C3, C4, CH50 #### [facility] , Occult Blood,Urine 1+ High Negative [facility] Comment on above: Order Comment: Name Collection Type:: Clean-Voided Midstream Performed By: #### C UU, ADDONUAPLUS #### [address] #### C3, C4, CH50 #### [facility] , pH (U) 6.5 [pH] Normal 5.0-9.0 [facility] Comment on above: Order Comment: Name Collection Type:: Clean-Voided Midstream Performed By: #### C UU, ADDONUAPLUS #### [address] #### C3, C4, CH50 #### [facility] , Protein,Urine Trace High Negative [facility] Comment on above: Order Comment: Name Collection Type:: Clean-Voided Midstream Performed By: #### C UU, ADDONUAPLUS #### [address] #### C3, C4, CH50 #### [facility] , RBC,Urine 1-2 Normal 0-4 [facility] Comment on above: Order Comment: Name Collection Type:: Clean-Voided Midstream Performed By: #### C UU, ADDONUAPLUS #### [address] #### C3, C4, CH50 #### [facility] , Specificy [place],Urine 1.010 Normal 1.001-1.030 [facility] Comment on above: Order Comment: Name Collection Type:: Clean-Voided Midstream Performed By: #### C UU, ADDONUAPLUS #### [address] #### C3, C4, CH50 #### [facility] , Squamous Epithelial Cell,Urine 5-9 High 0-2 [facility] Comment on above: Order Comment: Name Collection Type:: Clean-Voided Midstream Performed By: #### C UU, ADDONUAPLUS #### [address] #### C3, C4, CH50 #### [facility] , Urobilinogen,Urine Normal Normal Normal [facility] Comment on above: Order Comment: Name Collection Type:: Clean-Voided Midstream Performed By: #### C UU, ADDONUAPLUS #### [address] #### C3, C4, CH50 #### [facility] , WBC,Urine Innumerable High 0-4 [facility] Comment on above: Order Comment: Name Collection Type:: Clean-Voided Midstream Performed By: #### C UU, ADDONUAPLUS #### [address] #### C3, C4, CH50 #### [facility] , Erythrocyte Sedimentation Ra pratik 06-19-2022 ESR (Bld) [Velocity] 57 mm/h High 0-29 [facility] Comment on above: Result Comment: PERF ORMED BY: [place] [address] PATHOLOGIST AUTOMOTIVE ACCESSORY INSTALLER RADHA BULLARD M.D. Performed By: #### H EPATIC, CBC, ESR, CRP, CREAT, CK #### [facility] [address] [place] [address] [place] #### RNA POLYMR, ANTI TH TO, EVAN, U3 PICK REMOVER, ANTIR, PM-SCL ABS #### [facility] , Hepatic Panelon 06-19-2022 Albumin [Mass/Vol] 3.6 g/dL Normal 3.2-5.5 [facility] Comment on above: Performed By: #### H EPATIC, CBC, ESR, CRP, CREAT, CK #### [facility] [address] [place] [address] [place] #### RNA POLYMR, ANTI TH TO, EVAN, U3 PICK REMOVER, ANTIR, PM-SCL ABS #### [facility] , Albumin/Globulin [Mass ratio] 1.0 {ratio} Normal [facility] Comment on above: Performed By: #### H EPATIC, CBC, ESR, CRP, CREAT, CK #### [facility] [address] [place] [address] [place] #### RNA POLYMR, ANTI TH TO, EVAN, U3 PICK REMOVER, ANTIR, PM-SCL ABS #### [facility] , ALP [Catalytic activity/Vol] 68 U/L Normal 32-92 [facility] Comment on above: Performed By: #### H EPATIC, CBC, ESR, CRP, CREAT, CK #### [facility] [address] [place] [address] [place] #### RNA POLYMR, ANTI TH TO, EVAN, U3 PICK REMOVER, ANTIR, PM-SCL ABS #### [facility] , ALT [Catalytic activity/Vol] 9 U/L Low 10-60 [facility] Comment on above: Performed By: #### H EPATIC, CBC, ESR, CRP, CREAT, CK #### [facility] [address] [place] [address] [place] #### RNA POLYMR, ANTI TH TO, EVAN, U3 PICK REMOVER, ANTIR, PM-SCL ABS #### [facility] , AST [Catalytic activity/Vol] 15 U/L Normal 10-42 [facility] Comment on above: Performed By: #### H EPATIC, CBC, ESR, CRP, CREAT, CK #### [place] [address] [place] #### RNA POLYMR, ANTI TH TO, EVAN, U3 PICK REMOVER, ANTIR, PM-SCL ABS #### [facility] , Bilirubin [Mass/Vol] 0.6 mg/dL Normal 0.3-1.2 [facility] Comment on above: Performed By: #### H EPATIC, CBC, ESR, CRP, CREAT, CK #### [address] #### RNA POLYMR, ANTI TH TO, EVAN, U3 PICK REMOVER, ANTIR, PM-SCL ABS #### [facility] , Bilirubin,Indirect 0.4 mg/dL Normal [facility] Comment on above: Performed By: #### H EPATIC, CBC, ESR, CRP, CREAT, CK #### [place] [address] [place] #### RNA POLYMR, ANTI TH TO, EVNA, U3 PICK REMOVER, ANTIR, PM-SCL ABS #### [facility] , Bilirubin.indirect [Mass/Vol] 0.2 mg/dL Normal 0.0-0.4 [facility] Comment on above: Performed By: #### H EPATIC, CBC, ESR, CRP, CREAT, CK #### [facility] [address] [place] [address] [place] #### RNA POLYMR, ANTI TH TO, EVAN, U3 PICK REMOVER, ANTIR, PM-SCL ABS #### [facility] , Globulin (S) [Mass/Vol] 3.5 g/dL Normal [facility] Comment on above: Performed By: #### H EPATIC, CBC, ESR, CRP, CREAT, CK #### [place] [address] [place] #### RNA POLYMR, ANTI TH TO, EVAN, U3 PICK REMOVER, ANTIR, PM-SCL ABS #### [facility] , Protein [Mass/Vol] 7.1 g/dL Normal 6.1-7.9 [facility] Comment on above: Performed By: #### H EPATIC, CBC, ESR, CRP, CREAT, CK #### [facility] [address] [place] [address] #### RNA POLYMR, ANTI TH TO, EVAN, U3 PICK REMOVER, ANTIR, PM-SCL ABS #### [facility] , PM-SCL Antibodieson 06-19-20 22 RAIZA PM-Scl Antibody <20 Normal <20 [facility] Comment on above: Result Comment: This test was developed and its performance characteristics determined by [employer]. It has not been cleared or approved by the Food and Drug Administration. Negative: <20 Weak Positive: 20 - 39 Moderate Positive: 40 - 80 Strong Positive: >80 Performed at: [employer] [address] [place] [address] [id number] Press Writer: Artemio Nair MD, Phone: [phone] Performed By: #### C UU, ADDONUAPLUS #### [address] #### C3, C4, CH50 #### [facility] , RNA Polymerase IIion 022 RNA Polymerase IIi <20 Normal <20 [facility] Comment on above: Result Comment: Nega tive: <20 Weak Positive: 20 - 39 Moderate Positive: 40 - 80 Strong Positive: >80 Performed at: [employer] [address] [place] [address] [id number] Press Writer: Artemio Nair MD, Phone: [phone] PERFORMED BY: [place] [address] PATHOLOGIST AUTOMOTIVE ACCESSORY INSTALLER RADHA BULLARD M.D. Performed By: #### C UU, ADDONUAPLUS #### [address] #### C3, C4, CH50 #### [facility] , Th/To Antibodyon 06-19-2022 Th/To Antibody Negative Normal Negative [facility] Comment on above: Result Comment: This test was developed and its performance characteristics determined by [facility]. It has not been cleared or approved by the Food and Drug Administration. Performed at: [facility] [address] [place] [address] [id number] Press Writer: Artemio Nair MD, Phone: [phone] Performed By: #### C UU, ADDONUAPLUS #### [address] #### C3, C4, CH50 #### [facility] , U3 Rnpon 06-19-2022 U3 Pit Operator Negative Normal Negative [facility] Comment on above: Result Comment: This test was developed and its performance characteristics determined by [facility]. It has not been cleared or approved by the Food and Drug Administration. Performed at: [facility] [address] [place] [address] [id number] Press Writer: Artemio Nair MD, Phone: [phone] PERFORMED BY: [place] [address] PATHOLOGIST AUTOMOTIVE ACCESSORY INSTALLER RADHA BULLARD M.D. Performed By: #### C UU, ADDONUAPLUS #### [address] #### C3, C4, CH50 #### [facility] , Urine Cultureon 06-19-2022 Bacteria identified Cx Nom (U) No Growth 2 Days PERFORMED BY: [place] [address] PATHOLOGIST AUTOMOTIVE ACCESSORY INSTALLER RADHA BULLARD M.D. Normal [facility] Comment on above: Performed By: #### C UU, ADDONUAPLUS #### [address] #### C3, C4, CH50 #### [facility] , PROF CHEM 8 (BAS METB)on Anion gap [Moles/Vol] 12.5 mmol/L Normal [facility] Comment on above: Performed By: #### B MP #### [facility] [address] [address] [address] Reji Thomas Calcium [Mass/Vol] 8.9 mg/dL Normal 8.5-10.1 [facility] Comment on above: Performed By: #### B MP #### [facility] [address] [address] [address] Reji Thomas Chloride [Moles/Vol] 103 mmol/L Normal 98-107 [facility] Comment on above: Performed By: #### B MP #### [facility] [address] [address] [address] Reji Thomas CO2 [Moles/Vol] 26.1 mmol/L Normal 21.0-32.[address] [facility] Comment on above: Performed By: #### B MP #### [facility] [address] [address] [address] Reji Thomas Creatinine [Mass/Vol] 2.09 mg/dL Critically high 0.55-1.02 [facility] Comment on above: Performed By: #### B MP #### [facility] [address] [address] [address] Reji Thomas EGFR-AF SLOVENIAN 27 mL/min/1.73m2 Critically low >=60 [facility] Comment on above: Performed By: #### B MP #### [facility] [address] [address] [address] Reji Thomas EGFR-NON AF SLOVENIAN 23 mL/min/1.73m2 Critically low >=60 [facility] Comment on above: Performed By: #### B MP #### [facility] [address] [address] [address] Reji Thomas Glucose [Mass/Vol] 96 mg/dL Normal 74-106 [facility] Comment on above: Performed By: #### B MP #### [facility] [address] [address] [address] Reji Thomas Potassium [Moles/Vol] 4.6 mmol/L Normal 3.5-5.1 [facility] Comment on above: Performed By: #### B MP #### [facility] [address] [place] [address] Dr. Reji Thomas Sodium [Moles/Vol] 137 mmol/L Normal 136-145 [facility] Comment on above: Performed By: #### B MP #### [facility] [address] [address] [address] Reji Thomas Urea nitrogen [Mass/Vol] 38.0 mg/dL Critically high 7.0-18.0 [facility] Comment on above: Performed By: #### B MP #### [facility] [address] [place] [address] Dr. Reji Thomas Urea nitrogen/Creatinine [Mass ratio] 18.2 mg/mg Normal [facility] Comment on above: Performed By: #### B MP #### [facility] [address] [place] [address] Dr. Reji Thomas PROTIMEon 06-04-2022 INR Coag (PPP) [Relative time] 2.51 {INR} Normal [facility] Comment on above: Performed By: #### B VOUCHER CLERK, CMP, TSH, LIPID #### [facility] [address] [place] [address] Dr. Reji Thomas INR GUIDELINES SEE BELOW Normal [facility] Comment on above: Result Comment: SHY RED INR: 2.0 - 3.0 CONDITIONS NOT LISTED BELOW 2.5 - 3.5 FOR PROSTHETIC HEART VALVE REPLACEMENT 2.5 - 3.5 RECURRENT THROMBOSIS Performed By: #### B VOUCHER CLERK, CMP, TSH, LIPID #### [facility] [address] [place] [address] Dr. Reji Thomas PT Coag (PPP) [Time] 25.5 s Critically high 9.0-11.6 [facility] Comment on above: Performed By: #### B VOUCHER CLERK, CMP, TSH, LIPID #### [facility] [address] [place] [address] Dr. Reji Thomas BNPon 05-15-2022 Natriuretic peptide B (Bld) [Mass/Vol] 3661.0 pg/mL Critically high <=1,800.0 [facility] Comment on above: Performed By: #### B VOUCHER CLERK, CMP, TSH, LIPID #### [facility] [address] [place] [address] Dr. Reji Thomas CBC AUTO DIFFon 05-15-2022 BASO # 0.1 103/ul Normal 0.0-0.1 [facility] Comment on above: Performed By: #### B MP #### [facility] [address] [address] [address] Reji Thomas Basophils/100 WBC (Bld) 1.1 % Normal 0.2-2.0 [facility] Comment on above: Performed By: #### B MP #### [facility] [address] [place] [address] Dr. Reji Thomas EO # 0.5 103/ul Normal 0.0-0.7 [facility] Comment on above: Performed By: #### B MP #### [facility] [address] [place] [address] Dr. Reji Thomas Eosinophils/100 WBC (Bld) 6.5 % Normal 0.9-7.0 [facility] Comment on above: Performed By: #### B MP #### [facility] [address] [place] [address] Dr. Reji Thomas Erythrocyte distribution width (RBC) [Ratio] 16.1 % Critically high 11.0-15.0 [facility] Comment on above: Performed By: #### B MP #### [facility] [address] [place] [address] Dr. Reji Thomas Hematocrit (Bld) [Volume fraction] 35.0 % Critically low 36.0-48.0 [facility] Comment on above: Performed By: #### B MP #### [facility] [address] [place] [address] Dr. Reji Thomas Hemoglobin (Bld) [Mass/Vol] 11.1 g/dL Critically low 12.0-16.0 [facility] Comment on above: Performed By: #### B MP #### [facility] [address] [address] [address] Reji Thomas IG # 0.02 10e3/ul Normal 0.00-0.03 [facility] Comment on above: Performed By: #### B MP #### [facility] [address] [place] [address] Dr. Reji Thomas IG % 0.3 % Normal 0.0-0.5 [facility] Comment on above: Performed By: #### B MP #### [facility] [address] [place] [address] Dr. Reji Thomas LYMPH # 1.6 103/ul Normal 1.2-3.8 [facility] Comment on above: Performed By: #### B MP #### [facility] [address] [place] [address] Dr. Reji Thomas Lymphocytes/100 WBC (Bld) 22.4 % Normal 20.5-60.0 [facility] Comment on above: Performed By: #### B MP #### [facility] [address] [place] [address] Dr. Reji Thomas MANUAL DIFF REQ NO Normal [facility] Comment on above: Performed By: #### B MP #### [facility] [address] [place] [address] Dr. Reji Thomas MCH (RBC) [Entitic mass] 26.4 pg Critically low 26.7-34.0 [facility] Comment on above: Performed By: #### B MP #### [facility] [address] [place] [address] Dr. Reji Thomas MCHC (RBC) [Mass/Vol] 31.7 g/dL Normal 29.9-35.2 [facility] Comment on above: Performed By: #### B MP #### [facility] [address] [place] [address] Dr. Reji Thomas MCV (RBC) [Entitic vol] 83.1 fL Normal 81.0-99.0 [facility] Comment on above: Performed By: #### B MP #### [facility] [address] [address] [address] Reji Thomas MONO # 0.9 103/ul Critically high 0.3-0.8 [facility] Comment on above: Performed By: #### B MP #### [facility] [address] [address] [address] Reji Thomas Monocytes/100 WBC (Bld) 12.1 % Critically high 1.7-12.0 [facility] Comment on above: Performed By: #### B MP #### [facility] [address] [place] [address] Dr. Reji Thomas NEUT # 4.1 103/ul Normal 1.4-6.5 [facility] Comment on above: Performed By: #### B MP #### [facility] [address] [place] [address] Dr. Reji Thomas Neutrophils/100 WBC (Bld) 57.6 % Normal 43.0-75.0 [facility] Comment on above: Performed By: #### B MP #### [facility] [address] [place] [address] Dr. Reji Thomas Platelet mean volume (Bld) [Entitic vol] 8.8 fL Critically low 9.5-13.5 [facility] Comment on above: Performed By: #### B MP #### [facility] [address] [place] [address] Dr. Reji Thomas PLT 253 103/ul Normal 150-450 [facility] Comment on above: Performed By: #### B MP #### [facility] [address] [place] [address] Dr. Reji Thomas RBC 4.21 106/ul Normal 4.20-5.40 [facility] Comment on above: Performed By: #### B MP #### [facility] [address] [place] [address] Dr. Reji Thomas WBC 7.1 103/ul Normal 4.0-11.0 [facility] Comment on above: Performed By: #### B MP #### [facility] [address] [place] [address] Dr. Reji Thomas PROF CHEM 8 (BAS METB)on Anion gap [Moles/Vol] 10.5 mmol/L Normal [facility] Comment on above: Performed By: #### B VOUCHER CLERK, CMP, TSH, LIPID #### [facility] [address] [address] [address] Reji Thomas Calcium [Mass/Vol] 8.9 mg/dL Normal 8.5-10.1 [facility] Comment on above: Performed By: #### B VOUCHER CLERK, CMP, TSH, LIPID #### [facility] [address] [address] [address] Reji Thomas Chloride [Moles/Vol] 104 mmol/L Normal 98-107 [facility] Comment on above: Performed By: #### B VOUCHER CLERK, CMP, TSH, LIPID #### [facility] [address] [place] [address] Dr. Reji Thomas CO2 [Moles/Vol] 29.5 mmol/L Normal 21.0-32.[address] [facility] Comment on above: Performed By: #### B VOUCHER CLERK, CMP, TSH, LIPID #### [facility] [address] [address] [address] Reji Thomas Creatinine [Mass/Vol] 1.73 mg/dL Critically high 0.55-1.02 [facility] Comment on above: Performed By: #### B VOUCHER CLERK, CMP, TSH, LIPID #### [facility] [address] [address] [address] Reji Thomas EGFR-AF SLOVENIAN 34 mL/min/1.73m2 Critically low >=60 [facility] Comment on above: Performed By: #### B VOUCHER CLERK, CMP, TSH, LIPID #### [facility] [address] [address] [address] Reji Thomas EGFR-NON AF SLOVENIAN 28 mL/min/1.73m2 Critically low >=60 [facility] Comment on above: Performed By: #### B VOUCHER CLERK, CMP, TSH, LIPID #### [facility] [address] [address] [address] Reji Thomas Glucose [Mass/Vol] 79 mg/dL Normal 74-106 [facility] Comment on above: Performed By: #### B VOUCHER CLERK, CMP, TSH, LIPID #### [facility] [address] [place] [address] Dr. Reji Thomas Potassium [Moles/Vol] 4.0 mmol/L Normal 3.5-5.1 [facility] Comment on above: Performed By: #### B VOUCHER CLERK, CMP, TSH, LIPID #### [facility] [address] [address] [address] Reji Thomas Sodium [Moles/Vol] 140 mmol/L Normal 136-145 [facility] Comment on above: Performed By: #### B VOUCHER CLERK, CMP, TSH, LIPID #### [facility] [address] [place] [address] Dr. Reji Thomas Urea nitrogen [Mass/Vol] 22.0 mg/dL Critically high 7.0-18.0 [facility] Comment on above: Performed By: #### B VOUCHER CLERK, CMP, TSH, LIPID #### [facility] [address] [place] [address] Dr. Reji Thomas Urea nitrogen/Creatinine [Mass ratio] 12.7 mg/mg Normal [facility] Comment on above: Performed By: #### B VOUCHER CLERK, CMP, TSH, LIPID #### [facility] [address] [place] [address] Dr. Reji Thomas PROTIMEon 05-15-2022 INR Coag (PPP) [Relative time] 2.53 {INR} Normal [facility] Comment on above: Performed By: #### B VOUCHER CLERK, CMP, TSH, LIPID #### [facility] [address] [place] [address] Dr. Reji Thomas INR GUIDELINES SEE BELOW Normal [facility] Comment on above: Result Comment: SHY RED INR: 2.0 - 3.0 CONDITIONS NOT LISTED BELOW 2.5 - 3.5 FOR PROSTHETIC HEART VALVE REPLACEMENT 2.5 - 3.5 RECURRENT THROMBOSIS Performed By: #### B VOUCHER CLERK, CMP, TSH, LIPID #### [facility] [address] [place] [address] Dr. Reji Thomas PT Coag (PPP) [Time] 25.7 s Critically high 9.0-11.6 [facility] Comment on above: Performed By: #### B VOUCHER CLERK, CMP, TSH, LIPID #### [facility] [address] [address] [address] Reji Thomas ECHOCARDIO M/2D COMPLETEon 0 05-04-2022 ECHOCARDIO M/2D COMPLETE Patient: INEZ JUAREZ Exam Date: 05/04/2022 : 1940 Gender:F Ordering : DR JENN PRADO M.D. Admission #: [id number] Family : Order #: [id number] CLICK HERE TO VIEW EXAM ECHOCARDIOGRAM REPORT [...] Area(A4C): 27.20 cm2 Left Atrium Systolic Volume(A2C): 916739 mm3 Left Atrium Systolic Volume(A4C): 94726 mm3 Mitral Valve MV E to A Ratio: 2.60 Deceleration Calvert: 41689 mm/s2 Mitral Valve A-Wave Peak Velocity: 58.60 [...] Prado M.D. on 05/07/2022 at 11:39 Normal [facility] EVAN by IFAon 04-19-2022 Antinuclear Antibodies, IFA Positive Abnormal [facility] Comment on above: Result Comment: Nega tive <1:80 Borderline 1:80 Positive >1:80 Performed By: #### B VOUCHER CLERK, CMP, TSH, LIPID #### [facility] [address] [place] [address] Dr. Reji Thomas Centriole Pattern Normal [facility] Comment on above: Performed By: #### B VOUCHER CLERK, CMP, TSH, LIPID #### [facility] [address] [address] [address] Reji Thomas Centromere Pattern Normal [facility] Comment on above: Performed By: #### B VOUCHER CLERK, CMP, TSH, LIPID #### [facility] [address] [id number] Reji Thomas Homogeneous Pattern 1:320 Critically high [facility] Comment on above: Result Comment: ICAP nomenclature: AC-1 Performed By: #### B VOUCHER CLERK, CMP, TSH, LIPID #### [facility] [address] [address] [address] Reji Thomas Midbody Pattern Normal [facility] Comment on above: Performed By: #### B VOUCHER CLERK, CMP, TSH, LIPID #### [facility] [address] [address] [address] Reji Thomas Note: Comment Normal [facility] Comment on above: Result Comment: For [...] titers Nucleosomes, Histones Drug-induced SLE Speckled Sm, PICK REMOVER, SCL-70, SLE,MCTD,PSS (diffuse form), SS-A/SS-B Sjogrens Nucleolar SCL-70, PM-1/SCL High titers Scleroderma, PM/DM Centromere Centromere PSS (limited form) w/Crest syndrome variable Nuclear Dot [id number] Primary Biliary Cirrhosis Nuclear GP210, Primary Biliary Cirrhosis Membrane eleonora A,B,C Performed By: #### B VOUCHER CLERK, CMP, TSH, LIPID #### [facility] [address] [place] [address] Dr. Reji Thomas Nuclear Dot Pattern Normal [facility] Comment on above: Performed By: #### B VOUCHER CLERK, CMP, TSH, LIPID #### [facility] [address] [place] [address] Dr. Reji Thomas Nuclear Membrane Pattern Normal [facility] Comment on above: Performed By: #### B VOUCHER CLERK, CMP, TSH, LIPID #### [facility] [address] [address] [address] Reji Thomas Nucleolar Pattern Normal [facility] Comment on above: Performed By: #### B VOUCHER CLERK, CMP, TSH, LIPID #### [facility] [address] [address] [address] Reji Thomas PCNA Pattern Normal [facility] Comment on above: Performed By: #### B VOUCHER CLERK, CMP, TSH, LIPID #### [facility] [address] [address] [address] Reji Thomas Speckled Pattern Normal [facility] Comment on above: Performed By: #### B VOUCHER CLERK, CMP, TSH, LIPID #### [facility] [address] [address] [address] Reji Thomas Spindle Apparatus Pattern Normal [facility] Comment on above: Performed By: #### B VOUCHER CLERK, CMP, TSH, LIPID #### [facility] [address] [address] [address] Reji Thoams ANCA (ANTINEUTROPHIL CYTOPLA MSMIC ABon 04-18-2022 Atypical pANCA <1:20 Normal Neg:<1:20 [facility] Comment on above: Result Comment: Seru m is slightly hemolyzed The atypical pANCA pattern has been observed in a significant percentage of patients with ulcerative colitis, primary sclerosing cholangitis and autoimmune hepatitis. Performed By: #### B MP #### [facility] [address] [address] [address] Reji Thomas Cytoplasmic (C-ANCA) <1:20 Normal Neg:<1:20 [facility] Comment on above: Result Comment: Seru m is slightly hemolyzed Performed By: #### B MP #### [facility] [address] [address] [address] Reji Thomas Perinuclear (P-ANCA) <1:20 Normal Neg:<1:20 [facility] Comment on above: Result Comment: Seru m is slightly hemolyzed The presence of positive fluorescence exhibiting P-ANCA or C-ANCA patterns alone is not specific for the diagnosis of Arlene's Granulomatosis (WG) or microscopic polyangiitis. Decisions about treatment should not be based solely on ANCA IFA results. The [employer] ANCA [employer] Consensus recommends follow up testing of positive sera with both WI-3 and MPO-ANCA enzyme immunoassays. As many as 5% serum samples are positive only by EIA. Ref. AM J Clin Pathol 1999;111:507-513. Performed By: #### B MP #### [facility] [address] [place] [address] Dr. Reji Thomas ANTISCLERODERMA ABon 022 Antiscleroderma-70 Antibodies 0.3 AI Normal 0.0-0.9 [facility] Comment on above: Performed By: #### B VOUCHER CLERK, CMP, TSH, LIPID #### [facility] [address] [place] [address] Dr. Reji Thomas T3 UPTAKEon 04-18-2022 Free Thyroxine Index 1.8 Normal 1.2-4.9 [facility] Comment on above: Performed By: #### B VOUCHER CLERK, CMP, TSH, LIPID #### [facility] [address] [place] [address] Dr. Reji Thomas T3 Uptake 23 % Critically low 24-39 [facility] Comment on above: Performed By: #### B VOUCHER CLERK, CMP, TSH, LIPID #### [facility] [address] [place] [address] Dr. Reji Thomas T4 LABCORPon 04-18-2022 T4 [Mass/Vol] 7.8 ug/dL Normal 4.5-12.0 [facility] Comment on above: Performed By: #### B VOUCHER CLERK, CMP, TSH, LIPID #### [facility] [address] [place] [address] Dr. Reji Thomas BNPon 04-16-2022 Natriuretic peptide B (Bld) [Mass/Vol] 2870.0 pg/mL Critically high <=1,800.0 [facility] Comment on above: Result Comment: repe ated Performed By: #### B VOUCHER CLERK, CMP, TSH, LIPID #### [facility] [address] [place] [address] Dr. Reji Thomas CBC AUTO DIFFon 04-16-2022 BASO # 0.1 103/ul Normal 0.0-0.1 [facility] Comment on above: Performed By: #### B VOUCHER CLERK, CMP, TSH, LIPID #### [facility] [address] [place] [address] Dr. Reji Thomas Basophils/100 WBC (Bld) 0.9 % Normal 0.2-2.0 [facility] Comment on above: Performed By: #### B VOUCHER CLERK, CMP, TSH, LIPID #### [facility] [address] [place] [address] Dr. Reji Thomas EO # 0.3 103/ul Normal 0.0-0.7 [facility] Comment on above: Performed By: #### B VOUCHER CLERK, CMP, TSH, LIPID #### [facility] [address] [place] [address] Dr. Reji Thomas Eosinophils/100 WBC (Bld) 3.9 % Normal 0.9-7.0 [facility] Comment on above: Performed By: #### B VOUCHER CLERK, CMP, TSH, LIPID #### [facility] [address] [place] [address] Dr. Reji Thomas Erythrocyte distribution width (RBC) [Ratio] 15.9 % Critically high 11.0-15.0 [facility] Comment on above: Performed By: #### B VOUCHER CLERK, CMP, TSH, LIPID #### [facility] [address] [place] [address] Dr. Reji Thomas Hematocrit (Bld) [Volume fraction] 38.1 % Normal 36.0-48.0 [facility] Comment on above: Performed By: #### B VOUCHER CLERK, CMP, TSH, LIPID #### [facility] [address] [place] [address] Dr. Reji Thomas Hemoglobin (Bld) [Mass/Vol] 12.1 g/dL Normal 12.0-16.0 [facility] Comment on above: Performed By: #### B VOUCHER CLERK, CMP, TSH, LIPID #### [facility] [address] [place] [address] Dr. Reji Thomas IG # 0.02 10e3/ul Normal 0.00-0.03 [facility] Comment on above: Performed By: #### B VOUCHER CLERK, CMP, TSH, LIPID #### [facility] [address] [place] [address] Dr. Reji Thomas IG % 0.3 % Normal 0.0-0.5 [facility] Comment on above: Performed By: #### B VOUCHER CLERK, CMP, TSH, LIPID #### [facility] [address] [place] [address] Dr. Reji Thomas LYMPH # 1.6 103/ul Normal 1.2-3.8 [facility] Comment on above: Performed By: #### B VOUCHER CLERK, CMP, TSH, LIPID #### [facility] [address] [place] [address] Dr. Reji Thomas Lymphocytes/100 WBC (Bld) 22.6 % Normal 20.5-60.0 [facility] Comment on above: Performed By: #### B VOUCHER CLERK, CMP, TSH, LIPID #### [facility] [address] [place] [address] Dr. Reji Thomas MANUAL DIFF REQ NO Normal [facility] Comment on above: Performed By: #### B VOUCHER CLERK, CMP, TSH, LIPID #### [facility] [address] [place] [address] Dr. Reji Thomas MCH (RBC) [Entitic mass] 26.5 pg Critically low 26.7-34.0 [facility] Comment on above: Performed By: #### B VOUCHER CLERK, CMP, TSH, LIPID #### [facility] [address] [place] [address] Dr. Reji Thomas MCHC (RBC) [Mass/Vol] 31.8 g/dL Normal 29.9-35.2 [facility] Comment on above: Performed By: #### B VOUCHER CLERK, CMP, TSH, LIPID #### [facility] [address] [place] [address] Dr. Reji Thomas MCV (RBC) [Entitic vol] 83.4 fL Normal 81.0-99.0 [facility] Comment on above: Performed By: #### B VOUCHER CLERK, CMP, TSH, LIPID #### [facility] [address] [place] [address] Dr. Reji Thomas MONO # 0.6 103/ul Normal 0.3-0.8 [facility] Comment on above: Performed By: #### B VOUCHER CLERK, CMP, TSH, LIPID #### [facility] [address] [place] [address] Dr. Reji Thomas Monocytes/100 WBC (Bld) 9.3 % Normal 1.7-12.0 [facility] Comment on above: Performed By: #### B VOUCHER CLERK, CMP, TSH, LIPID #### [facility] [address] [place] [address] Dr. Reji Thomas NEUT # 4.3 103/ul Normal 1.4-6.5 [facility] Comment on above: Performed By: #### B VOUCHER CLERK, CMP, TSH, LIPID #### [facility] [address] [place] [address] Dr. Reji Thomas Neutrophils/100 WBC (Bld) 63.0 % Normal 43.0-75.0 [facility] Comment on above: Performed By: #### B VOUCHER CLERK, CMP, TSH, LIPID #### [facility] [address] [place] [address] Dr. Reji Thomas Platelet mean volume (Bld) [Entitic vol] 9.2 fL Critically low 9.5-13.5 [facility] Comment on above: Performed By: #### B VOUCHER CLERK, CMP, TSH, LIPID #### [facility] [address] [place] [address] Dr. Reji Thomas PLT 211 103/ul Normal 150-450 [facility] Comment on above: Performed By: #### B VOUCHER CLERK, CMP, TSH, LIPID #### [facility] [address] [place] [address] Dr. Reji Thomas RBC 4.57 106/ul Normal 4.20-5.40 [facility] Comment on above: Performed By: #### B VOUCHER CLERK, CMP, TSH, LIPID #### [facility] [address] [place] [address] Dr. Reji Thomsa WBC 6.9 103/ul Normal 4.0-11.0 [facility] Comment on above: Performed By: #### B VOUCHER CLERK, CMP, TSH, LIPID #### [facility] [address] [place] [address] Dr. Reji Thomas GLYCOHEMOGLOBIN A1Con 2021 ADA RECOMMENDATION SEE BELOW Normal [facility] Comment on above: Result Comment: ADA RECOMMENDED LIMIT 4.0 - 6.0 ADA THERAPEUTIC TARGET < 7.0 ACTION SUGGESTED > 7.0 Performed By: #### B VOUCHER CLERK, CMP, TSH, LIPID #### [facility] [address] [address] [address] Reji Thomas Glucose [Mass/Vol] 100 mg/dL Normal [facility] Comment on above: Performed By: #### B VOUCHER CLERK, CMP, TSH, LIPID #### [facility] [address] [address] [address] Reji Thomas HbA1c (Bld) [Mass fraction] 5.1 % Normal 4.5-6.2 [facility] Comment on above: Performed By: #### B VOUCHER CLERK, CMP, TSH, LIPID #### [facility] [address] [place] [address] Dr. Reji Thomas IRONon 04-16-2022 Iron [Mass/Vol] 42.0 ug/dL Critically low 50.0-170.0 [facility] Comment on above: Performed By: #### B VOUCHER CLERK, CMP, TSH, LIPID #### [facility] [address] [place] [address] Dr. Reji Thomas LIPID PROFILEon 04-16-2022 CHOL-HDL RATIO NORM SEE BELOW Normal [facility] Comment on above: Result Comment: 3.3 - 4.4 LOW RISK 4.4 - 7.1 AVERAGE RISK 7.1 - 11.0 MODERATE RISK >11.0 HIGH RISK Performed By: #### B VOUCHER CLERK, CMP, TSH, LIPID #### [facility] [address] [address] [address] Reji Thomas Cholesterol [Mass/Vol] 176 mg/dL Normal <=200 [facility] Comment on above: Performed By: #### B VOUCHER CLERK, CMP, TSH, LIPID #### [facility] [address] [place] [address] Dr. Reji Thomas Cholesterol in HDL [Mass/Vol] 52 mg/dL Normal 40-60 [facility] Comment on above: Performed By: #### B VOUCHER CLERK, CMP, TSH, LIPID #### [facility] [address] [address] [address] Reji Thomas Cholesterol in LDL [Mass/Vol] 102.8 mg/dL Normal [facility] Comment on above: Performed By: #### B VOUCHER CLERK, CMP, TSH, LIPID #### [facility] [address] [address] [address] Reji Thomas Cholesterol.total/Ch olesterol in HDL [Mass ratio] 3.4 {ratio} Normal [facility] Comment on above: Performed By: #### B VOUCHER CLERK, CMP, TSH, LIPID #### [facility] [address] [address] [address] Reji Thomas HDL NORMAL > or = 60 mg/dl - LOW CARDIOVASCULAR RISK <40 mg/dl - HIGH CARDIOVASCULAR RISK Normal [facility] Comment on above: Performed By: #### B VOUCHER CLERK, CMP, TSH, LIPID #### [facility] [address] [place] [address] Dr. Reji Thomas LDL CALC NORMAL SEE BELOW Normal [facility] Comment on above: Result Comment: <100 mg/dl OPTIMAL 100 - 129 mg/dl NEAR OR ABOVE OPTIMAL 130 - 159 mg/dl BORDERLINE HIGH 160 - 189 mg/dl HIGH >190 mg/dl VERY HIGH Performed By: #### B VOUCHER CLERK, CMP, TSH, LIPID #### [facility] [address] [place] [address] Dr. Reji Thomas Triglyceride [Mass/Vol] 106 mg/dL Normal <=150 [facility] Comment on above: Performed By: #### B VOUCHER CLERK, CMP, TSH, LIPID #### [facility] [address] [address] [address] Reji Thomas VLDL CALC 21.2 mg/dL Normal [facility] Comment on above: Performed By: #### B VOUCHER CLERK, CMP, TSH, LIPID #### [facility] [address] [place] [address] Dr. Reji Thomas PROF 14(COMP METB)on 022 Albumin [Mass/Vol] 3.6 g/dL Normal 3.4-5.0 [facility] Comment on above: Performed By: #### B VOUCHER CLERK, CMP, TSH, LIPID #### [facility] [address] [address] [address] Reji Thomas Albumin/Globulin [Mass ratio] 0.9 {ratio} Normal [facility] Comment on above: Performed By: #### B VOUCHER CLERK, CMP, TSH, LIPID #### [facility] [address] [place] [address] Dr. Reji Thomas ALP [Catalytic activity/Vol] 62 U/L Normal 46-116 [facility] Comment on above: Performed By: #### B VOUCHER CLERK, CMP, TSH, LIPID #### [facility] [address] [place] [address] Dr. Reji Thomas ALT [Catalytic activity/Vol] 14 U/L Normal 14-59 [facility] Comment on above: Performed By: #### B VOUCHER CLERK, CMP, TSH, LIPID #### [facility] [address] [place] [address] Dr. Reji Thomas Anion gap [Moles/Vol] 14.5 mmol/L Normal [facility] Comment on above: Performed By: #### B VOUCHER CLERK, CMP, TSH, LIPID #### [facility] [address] [place] [address] Dr. Reji Thomas AST [Catalytic activity/Vol] 17 U/L Normal 15-37 [facility] Comment on above: Performed By: #### B VOUCHER CLERK, CMP, TSH, LIPID #### [facility] [address] [place] [address] Dr. Reji Thomas Bilirubin [Mass/Vol] 0.6 mg/dL Normal 0.2-1.0 [facility] Comment on above: Performed By: #### B VOUCHER CLERK, CMP, TSH, LIPID #### [facility] [address] [place] [address] Dr. Reji Thomas Calcium [Mass/Vol] 8.8 mg/dL Normal 8.5-10.1 [facility] Comment on above: Performed By: #### B VOUCHER CLERK, CMP, TSH, LIPID #### [facility] [address] [place] [address] Dr. Reji Thomas Chloride [Moles/Vol] 102 mmol/L Normal 98-107 [facility] Comment on above: Performed By: #### B VOUCHER CLERK, CMP, TSH, LIPID #### [facility] [address] [address] [address] Reji Thomas CO2 [Moles/Vol] 26.3 mmol/L Normal 21.0-32.[address] [facility] Comment on above: Performed By: #### B VOUCHER CLERK, CMP, TSH, LIPID #### [facility] [address] [address] [address] Reji Thomas Creatinine [Mass/Vol] 1.76 mg/dL Critically high 0.55-1.02 [facility] Comment on above: Performed By: #### B VOUCHER CLERK, CMP, TSH, LIPID #### [facility] [address] [place] [address] Dr. Reji Thomas EGFR-AF SLOVENIAN 33 mL/min/1.73m2 Critically low >=60 [facility] Comment on above: Performed By: #### B VOUCHER CLERK, CMP, TSH, LIPID #### [facility] [address] [place] [address] Dr. Reji Thomas EGFR-NON AF SLOVENIAN 28 mL/min/1.73m2 Critically low >=60 [facility] Comment on above: Performed By: #### B VOUCHER CLERK, CMP, TSH, LIPID #### [facility] [address] [place] [address] Dr. Reji Thomas Globulin (S) [Mass/Vol] 4.2 g/dL Normal [facility] Comment on above: Performed By: #### B VOUCHER CLERK, CMP, TSH, LIPID #### [facility] [address] [place] [address] Dr. Reji Thomas Glucose [Mass/Vol] 81 mg/dL Normal 74-106 [facility] Comment on above: Performed By: #### B VOUCHER CLERK, CMP, TSH, LIPID #### [facility] [address] [place] [address] Dr. Reji Thomas Potassium [Moles/Vol] 3.8 mmol/L Normal 3.5-5.1 [facility] Comment on above: Performed By: #### B VOUCHER CLERK, CMP, TSH, LIPID #### [facility] [address] [address] [address] Reji Thomas Protein [Mass/Vol] 7.8 g/dL Normal 6.4-8.2 [facility] Comment on above: Performed By: #### B VOUCHER CLERK, CMP, TSH, LIPID #### [facility] [address] [address] [address] Reji Thomas Sodium [Moles/Vol] 139 mmol/L Normal 136-145 [facility] Comment on above: Performed By: #### B VOUCHER CLERK, CMP, TSH, LIPID #### [facility] [address] [address] [address] Reji Thomas Urea nitrogen [Mass/Vol] 27.0 mg/dL Critically high 7.0-18.0 [facility] Comment on above: Performed By: #### B VOUCHER CLERK, CMP, TSH, LIPID #### [facility] [address] [address] [address] Reji Thomas Urea nitrogen/Creatinine [Mass ratio] 15.3 mg/mg Normal [facility] Comment on above: Performed By: #### B VOUCHER CLERK, CMP, TSH, LIPID #### [facility] [address] [place] [address] Dr. Reji Thomas PROTIMEon 04-16-2022 INR Coag (PPP) [Relative time] 1.92 {INR} Normal [facility] Comment on above: Performed By: #### B VOUCHER CLERK, CMP, TSH, LIPID #### [facility] [address] [place] [address] Dr. Reji Thomas INR GUIDELINES SEE BELOW Normal [facility] Comment on above: Result Comment: SHY RED INR: 2.0 - 3.0 CONDITIONS NOT LISTED BELOW 2.5 - 3.5 FOR PROSTHETIC HEART VALVE REPLACEMENT 2.5 - 3.5 RECURRENT THROMBOSIS Performed By: #### B VOUCHER CLERK, CMP, TSH, LIPID #### [facility] [address] [place] [address] Dr. Reji Thomas PT Coag (PPP) [Time] 19.9 s Critically high 9.0-11.6 [facility] Comment on above: Performed By: #### B VOUCHER CLERK, CMP, TSH, LIPID #### [facility] [address] [address] [address] Reji Thomas SED RATE WESTERGRENon 2021 SED RATE 37 mm/hr Critically high <=30 [facility] Comment on above: Performed By: #### B VOUCHER CLERK, CMP, TSH, LIPID #### [facility] [address] [place] [address] Dr. Reji Thomas TSHon 04-16-2022 TSH 1.941 uIU/mL Normal 0.358-3.740 [facility] Comment on above: Performed By: #### B VOUCHER CLERK, CMP, TSH, LIPID #### [facility] [address] [place] [address] Dr. Reji Thomas TSH RANGE SEE BELOW Normal [facility] Comment on above: Result Comment: <0.3 4 UIU/ml HYPERTHYROID 0.34-5.60 UIU/ml EUTHYROID >5.60 UIU/ml HYPOTHYROID Performed By: #### B VOUCHER CLERK, CMP, TSH, LIPID #### [facility] [address] [place] [address] Dr. Reji Thomas VITAMIN D 25 OHon 04-16-2022 VIT D 25-OH 56.6 ng/mL Normal [facility] Comment on above: Performed By: #### B VOUCHER CLERK, CMP, TSH, LIPID #### [facility] [address] [place] [address] Dr. Reji Thomas VIT D RANGES SEE BELOW Normal [facility] Comment on above: Result Comment: <20 ng/mL Vit D deficient 20 - <30 ng/mL Vit D insufficient 30 - 100 ng/mL Vit D sufficient >100 ng/mL Potential Toxicity Performed By: #### B VOUCHER CLERK, CMP, TSH, LIPID #### [facility] [address] [place] [address] Dr. Reji Thomas Cardiovascular Lab Reporton 11-02-2021 Cardiovascular Lab Report [facility] Patient Name: Inez Juarez MR #: [id number] [facility] Physician: Jenn Prado M.D. Department of Service Date: 11/01/2021 Medicine Birthdate: 1940 Division of Room #: Cardiology Adult Cardiovascular Services [address] [place] [address] Cardiovascular Laboratory Report INDICATION: The patient is [...] She signed consent. She was brought to pathology laboratory technologist in a fasting state. The right neck area was prepped and draped in usual fashion. Micropuncture technique and ultrasound guidance were used for access in the right internal jugular vein. A 6-Wallisian x 11 cm sheath was placed. A 6-Wallisian Hernández catheter was used for heart catheterization [...] Prado M.D. Date Trans: 11/01/2021 11:22 P/alondra [id number] cc: Bruce Rizvi M.D. [address], [place] [address] [place] [facility] Cardiovascular Lab Reporton 06-02-2021 Cardiovascular Lab Report [facility] Patient Name: Inez Juarez MR #: [id number] [facility] Physician: Jenn Prado M.D. Department of Service Date: 06/02/2021 Medicine Birthdate: 1940 Division of Room #: CC Cardiology Adult Cardiovascular Services [address] [place] [address] Cardiovascular Laboratory Report INDICATION: The patient is [...] the informed consent. She was brought to pathology laboratory technologist in a fasting state. The right neck area was prepped and draped in usual fashion. Using micropuncture technique and ultrasound guidance, the right internal jugular vein was accessed and a 6-Wallisian x 11 cm sheath was placed. A 6-Wallisian Hernández catheter was used for heart catheterization [...] Prado M.D. Date Trans: 06/02/2021 02:42 P/alondra [id number] cc: Bruce Rizvi M.D. [address] [facility] [address] [facility] Encounters Encounter Date Encounter Type Care Provider Facility Start: 12-13-2023 End: 12-13-2023 ambulatory [facility] Start: 10-30-2023 End: 10-30-2023 ambulatory [facility] Start: 10-22-2023 End: 10-22-2023 ambulatory ANTONY YOPTA [facility] Start: 05-20-2023 End: 05-20-2023 ambulatory JENN PRADO [facility] Start: 03-22-2023 End: 03-23-[address] [...] Start: 11-01-2021 End: 11-02-2021 ambulatory PROVIDER UNKNOWN Facility:[facility] Start: 06-02-2021 End: 06-03-2021 ambulatory PROVIDER UNKNOWN Facility:[facility] Payers Date Payer Category Payer Medicare [id number] 1961 Medicare [id number] 1961 Medicare [id number] 1961 Self-pay [id number] 1940 Unknown [id number] 2.16.8 [id number] 1940 Unknown [id number] 2.16.8 40.1.264953.3.579.2.647 1938 Unknown [id number] 2.16.84 0.1.169598.3.579.2.593 1938 Unknown [id number] 2.16.84 0.1.439269.3.579.2.593 1938 Unknown [id number] 2.16.84 0.1.974938.3.579.2.593 1938 Unknown [id number] 2.16.84 0.1.199696.3.579.2.593 1938 Unknown [id number] 2.16.84 0.1.387453.3.579.2.593 1938 Unknown [id number] 2.16.84 0.1.743546.3.579.2.593 1938 Unknown [id number] 2.16.84 0.1.776025.3.579.2.593 1938 Unknown [id number] 2.16.84 0.1.313642.3.579.2.593 1938 Unknown [id number] 2.16.84 0.1.768581.3.579.2.593 1938 Unknown [id number] 2.16.84 0.1.773736.3.579.2.593 1938 Unknown [id number] 2.16.84 0.1.917354.3.579.2.593 1938 Unknown [id number] 2.16.84 0.1.610776.3.579.2.593 1938 Unknown [id number] 2.16.84 0.1.149525.3.579.2.593 1938 Unknown [id number] 2.16.84 0.1.045031.3.579.2.593 1938 Unknown [id number] 2.16.84 0.1.790976.3.579.2.593 1938 Unknown [id number] 2.16.84 0.1.160499.3.579.2.593 1938 Unknown [id number] 2.16.84 0.1.557669.3.579.2.593 1938 Unknown [id number] 2.16.84 0.1.412207.3.579.2.593 1938 Unknown [id number] 2.16.84 0.1.926133.3.579.2.593 Private Health Insurance WYB [id number] Progress note 12-13-2023 Note Date & Type Note Facility 12-13-2023 Note [place] Cardiology - [facility] Petrona Juarez is a [...] Nose james (more content not included)... [facility] Progress note 10-30-2023 Note Date & Type Note Facility 10-30-2023 Note [place] Cardiology - [facility] Subjective Inez Juarez is [...] heard. Systol (more content not included)... [facility] Clinical Note 10-22-2023 Note Date & Type Note Facility 10-22-2023 Note Patient: Inez foss Procedure Information Date/Time: 10/22/23 0830 Procedure: Right heart cath Location: [facility] POWER PRESS TENDER 3 / [facility] (Cath) Providers: Antony Smith [...] fellow and attending. Additional Equipment Requests [facility] Clinical Note 10-15-2023 Note Date & Type Note Facility 10-15-[address] Smith regarding warfarin. Dr Smith requested warfarin to be held for 3 days prior to procedure. [facility] Progress note 09-19-2023 Note Date & Type Note Facility 09-19-2023 Note [facility] Progress note 05-20-2023 Note Date & Type Note Facility 05-20-2023 Note [place] Cardiology - [facility] Petrona Juarez is a 83 y.o. [...] Comments: Large (more content not included)... [facility] Summary Purpose Family History No Family History Records FoundNo Family History Records FoundNo Family History Records FoundNo Family History Records Found Advance Directives No Advanced Directives Records FoundNo Advanced Directives Records FoundNo Advanced Directives Records FoundNo Advanced Directives Records Found Additional Source Comments INFORMATION SOURCE (unrecogn ized section and content) DATE CREATED AUTHOR 11/03/2021 [facility] DATE CREATED AUTHOR AUTHOR'S ORGANIZ ATION 07/05/2022 [facility] DATE CREATED AUTHOR AUTHOR'S ORGANIZ ATION 03/23/2023 [facility] DATE CREATED AUTHOR AUTHOR'S ORGANIZ ATION 12/14/2023 [facility] FOR RECORDS PERTAINING TO PATIENTS WHO ARE [...] BE BASED ON THE PRIMARY CLINICAL RECORDS. [facility]. provides no warranty or guarantee of the accuracy or completeness of information in this document.
== END 2024-06-22 11:30 | disposition home or self-care (01) ==
LOC: RAD 11:29
PROVIDERS: PCP Family Medicine; Visit Provider Family Medicine
DX: M81.0 Age-related osteoporosis without current pathological fracture (principal); M85.80 Other specified disorders of bone density and structure, unspecified site
CPT/HCPCS: 77080

== ENCOUNTER 2024-07-14 12:55 | Outpatient (OUT) | payer MEDICARE, SELFPAY ==
--- OUTSIDE RECORDS SUMMARY | 2024-07-14 13:17 | XMS_ITS | CCD ---
Author Organization [facility] CliniSyfl Care Team Providers Care Heel Seat Pounder Name Role Phone UNKNOWN, PROVIDER Attending Unavailable [...] HOY ., DR BARRERA Admitting Unavailable MOUKARBEL, JENN Attending Unavailable MOUKARBEL, JENN Attending Unavailable SMITHANTONY Admitting Unavailable ANTONY SMITH Attending Unavailable MOUKARBEL, JENN Attending Unavailable Problems Active Problems Problem Classification Problem Date Documented Da te Episodic/Chronic Cardiac dysrhythmias (5 sources) Unspecified atrial fibrillation; Translations: [UNSPECIFIED ATRIAL FIBRILLATION] Onset: 07-13-2022 Chronic Chronic kidney disease (2 sources) Chronic kidney disease; Translations: [Chronic kidney disease, stage 3b] Onset: 08-15-2022 Congestive heart failure; nonhypertensive (9 sources) Chronic [...] Translations: [Pulmonary hypertension, unspecified] Onset: 04-17-2022 Chronic Unclassified (2 sources) Longstanding persistent atrial fibrillation; [...] Episodic Other aftercare (4 sources) Other senior care (current) drug therapy; Translations: [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] Onset: 06-04-2022 Episodic Other [...] malignant neoplasm of rectum] Onset: 04-17-2022 Episodic Residual codes; unclassified (2 sources) Edema, unspecified; Translations: [Edema, unspecified] Onset: 10-22-2023 Episodic Results Test Name Value Interpretation Reference Range Facility Office Visiton 07-03-2024 Follow-up visit [id number] Inez Juarez 1940 F Date Provider Department Center 07/03/2024 JENN AMANDA BARBRA [place] Family History Problem Relation Age of Onset Hypertension Mother Coronary artery disease Father Hypertension Father Family Status - Relation Status Age at Mother Father Level of Service:03893 [place] OFFICE/OUTPATIENT ESTABLISHED LOW MDM 20 MIN Normal [facility] Office Visiton 12-13-2023 Follow-up visit [id number] Inez Juarez 1940 Provider Department Center 12/13/2023 JENN AMANDA BARBRA [place] Family History Problem Relation Age of Onset Hypertension Mother Coronary artery disease Father Hypertension Father Family Status - Relation Status Age at Mother Father Level of Service:15199 [place] OFFICE/OUTPATIENT ESTABLISHED MOD MDM 30 MIN Normal [facility] Office Visiton 10-30-2023 Follow-up visit [id number] Inez Juarez 1940 Date Provider Department Center 10/30/2023 JENN AMANDA BARBRA [place] Family History Problem Relation Age of Onset Hypertension Mother Coronary artery disease Father Hypertension Father Family Status - Relation Status Age at Mother Father Level of Service:31928 [place] OFFICE/OUTPATIENT ESTABLISHED MOD MDM 30 MIN Normal [facility] HPon 10-22-2023 History Of Present Illness Inez Juarez is [...] a past medical history of Atrial fibrillation ([facility]), CHF (congestive heart failure) ([facility]), Chronic kidney disease, GERD (gastroesophageal reflux disease), Heart valve disease, Hyperlipidemia, Hypertension, and Pulmonary hypertension ([facility]). Surgical History She has a past surgical [...] Results Reviewed Relevant (more content not included)... [facility] NURSNOTEon 10-22-2023 NURSNOTE RN educated pt on d/c instructions. RN encouraged pt to voice any questions or concerns. Pt verbalizes no questions or concerns at this time. Normal [facility] BNPon 03-22-2023 Natriuretic peptide B (Bld) [Mass/Vol] 1423.0 pg/mL Normal <=1,800.0 [facility] Comment on above: Performed By: #### B GERONTOLOGY AIDE, CMP, TSH, LIPID #### [facility] [address] [place] [address] Dr. Reji Thomas CBC AUTO DIFFon 03-22-2023 BASO # 0.1 103/ul Normal 0.0-0.1 [facility] Comment on above: Performed By: #### B MP #### [facility] [address] [address] [address] Reji Thomas Basophils/100 WBC (Bld) 1.0 % Normal 0.2-2.0 [facility] Comment on above: Performed By: #### B MP #### [facility] [address] [address] [address] Reji Thomas EO # 0.2 103/ul Normal 0.0-0.7 [facility] Comment on above: Performed By: #### B MP #### [facility] [address] [place] [address] Dr. Reji Thomas Eosinophils/100 WBC (Bld) 3.3 % Normal 0.9-7.0 [facility] Comment on above: Performed By: #### B MP #### [facility] [address] [place] [address] Dr. Reji Thomas Erythrocyte distribution width (RBC) [Ratio] 15.4 % Critically high 11.0-15.0 [facility] Comment on above: Performed By: #### B MP #### [facility] [address] [place] [address] Dr. Reji Thomas Hematocrit (Bld) [Volume fraction] 35.2 % Critically low 36.0-48.0 [facility] Comment on above: Performed By: #### B MP #### [facility] [address] [place] [address] Dr. Reji Thomas Hemoglobin (Bld) [Mass/Vol] 11.4 g/dL Critically low 12.0-16.0 [facility] Comment on above: Performed By: #### B MP #### [facility] [address] [place] [address] Dr. Reji Thomas IG # 0.02 10e3/ul Normal 0.00-0.03 [facility] Comment on above: Performed By: #### B MP #### [facility] [address] [place] [address] Dr. Reji Thomas IG % 0.3 % Normal 0.0-0.5 [facility] Comment on above: Performed By: #### B MP #### [facility] [address] [place] [address] Dr. Reji Thomas LYMPH # 1.4 103/ul Normal 1.2-3.8 [facility] Comment on above: Performed By: #### B MP #### [facility] [address] [place] [address] Dr. Reji Thomas Lymphocytes/100 WBC (Bld) 22.6 % Normal 20.5-60.0 [facility] Comment on above: Performed By: #### B MP #### [facility] [address] [place] [address] Dr. Reji Thomas MANUAL DIFF REQ NO Normal [facility] Comment on above: Performed By: #### B MP #### [facility] [address] [place] [address] Dr. Reji Thomas MCH (RBC) [Entitic mass] 27.0 pg Normal 26.7-34.0 [facility] Comment on above: Performed By: #### B MP #### [facility] [address] [place] [address] Dr. Reji Thomas MCHC (RBC) [Mass/Vol] 32.4 g/dL Normal 29.9-35.2 [facility] Comment on above: Performed By: #### B MP #### [facility] [address] [place] [address] Dr. Reji Thomas MCV (RBC) [Entitic vol] 83.2 fL Normal 81.0-99.0 [facility] Comment on above: Performed By: #### B MP #### [facility] [address] [place] [address] Dr. Reji Thomas MONO # 0.5 103/ul Normal 0.3-0.8 [facility] Comment on above: Performed By: #### B MP #### [facility] [address] [place] [address] Dr. Reji Thomas Monocytes/100 WBC (Bld) 8.5 % Normal 1.7-12.0 [facility] Comment on above: Performed By: #### B MP #### [facility] [address] [place] [address] Dr. Reji Thomas NEUT # 4.0 103/ul Normal 1.4-6.5 [facility] Comment on above: Performed By: #### B MP #### [facility] [address] [place] [address] Dr. Reji Thomas Neutrophils/100 WBC (Bld) 64.3 % Normal 43.0-75.0 [facility] Comment on above: Performed By: #### B MP #### [facility] [address] [place] [address] Dr. Reji Thomas Platelet mean volume (Bld) [Entitic vol] 8.9 fL Critically low 9.5-13.5 [facility] Comment on above: Performed By: #### B MP #### [facility] [address] [address] [address] Reji Thomas PLT 226 103/ul Normal 150-450 [facility] Comment on above: Performed By: #### B MP #### [facility] [address] [address] [address] Reij Thomas RBC 4.23 106/ul Normal 4.20-5.40 [facility] Comment on above: Performed By: #### B MP #### [facility] [address] [address] [address] Reji Thomas WBC 6.3 103/ul Normal 4.0-11.0 [facility] Comment on above: Performed By: #### B MP #### [facility] [address] [address] [address] Reji Thomas FREE THYROXINE INDEX T7on FTI 2.40 Normal 1.30-4.50 [facility] Comment on above: Performed By: #### B GERONTOLOGY AIDE, CMP, TSH, LIPID #### [facility] [address] [place] [address] Dr. Reji Thomas T3U 32.0 % Normal 30.0-39.0 [facility] Comment on above: Performed By: #### B GERONTOLOGY AIDE, CMP, TSH, LIPID #### [facility] [address] [place] [address] Dr. Reji Thomas T4 [Mass/Vol] 7.50 ug/dL Normal 4.80-13.90 [facility] Comment on above: Performed By: #### B GERONTOLOGY AIDE, CMP, TSH, LIPID #### [facility] [address] [place] [address] Dr. Reji Thomas GLYCOHEMOGLOBIN A1Con 2022 ADA RECOMMENDATION SEE BELOW Normal [facility] Comment on above: Result Comment: ADA RECOMMENDED LIMIT 4.0 - 6.0 ADA THERAPEUTIC TARGET < 7.0 ACTION SUGGESTED > 7.0 Performed By: #### B GERONTOLOGY AIDE, CMP, TSH, LIPID #### [facility] [address] [address] [address] Reji Thomas Glucose [Mass/Vol] 97 mg/dL Normal [facility] Comment on above: Performed By: #### B GERONTOLOGY AIDE, CMP, TSH, LIPID #### [facility] [address] [address] [address] Reji Thomas HbA1c (Bld) [Mass fraction] 5.0 % Normal 4.5-6.2 [facility] Comment on above: Performed By: #### B GERONTOLOGY AIDE, CMP, TSH, LIPID #### [facility] [address] [address] [address] Reji Thomas IRONon 03-22-2023 Iron [Mass/Vol] 47.0 ug/dL Critically low 50.0-170.0 [facility] Comment on above: Performed By: #### B GERONTOLOGY AIDE, CMP, TSH, LIPID #### [facility] [address] [place] [address] Dr. Reji Thomas LIPID PROFILEon 03-22-2023 CHOL-HDL RATIO NORM SEE BELOW Normal [facility] Comment on above: Result Comment: 3.3 - 4.4 LOW RISK 4.4 - 7.1 AVERAGE RISK 7.1 - 11.0 MODERATE RISK >11.0 HIGH RISK Performed By: #### M G, TSH, LIPID, T7, CMP, BNP #### [facility] [address] [address] [address] Reji Thomas Cholesterol [Mass/Vol] 188 mg/dL Normal <=200 [facility] Comment on above: Performed By: #### M G, TSH, LIPID, T7, CMP, BNP #### [facility] [address] [address] [address] Reji Thomas Cholesterol in HDL [Mass/Vol] 53 mg/dL Normal 40-60 [facility] Comment on above: Performed By: #### M G, TSH, LIPID, T7, CMP, BNP #### [facility] [address] [address] [address] Reji Thomas Cholesterol in LDL [Mass/Vol] 111.6 mg/dL Normal [facility] Comment on above: Performed By: #### M G, TSH, LIPID, T7, CMP, BNP #### [facility] [address] [address] [address] Reji Thomas Cholesterol.total/Ch olesterol in HDL [Mass ratio] 3.5 {ratio} Normal [facility] Comment on above: Performed By: #### M G, TSH, LIPID, T7, CMP, BNP #### [facility] [address] [address] [address] Reji Thomas HDL NORMAL > or = 60 mg/dl - LOW CARDIOVASCULAR RISK <40 mg/dl - HIGH CARDIOVASCULAR RISK Normal [facility] Comment on above: Performed By: #### M G, TSH, LIPID, T7, CMP, BNP #### [facility] [address] [place] [address] Dr. Reji Thomas LDL CALC NORMAL SEE BELOW Normal [facility] Comment on above: Result Comment: <100 mg/dl OPTIMAL 100 - 129 mg/dl NEAR OR ABOVE OPTIMAL 130 - 159 mg/dl BORDERLINE HIGH 160 - 189 mg/dl HIGH >190 mg/dl VERY HIGH Performed By: #### M G, TSH, LIPID, T7, CMP, BNP #### [facility] [address] [address] [address] Reji Thomas Triglyceride [Mass/Vol] 117 mg/dL Normal <=150 [facility] Comment on above: Performed By: #### M G, TSH, LIPID, T7, CMP, BNP #### [facility] [address] [address] [address] Reji Thomas VLDL CALC 23.4 mg/dL Normal [facility] Comment on above: Performed By: #### M G, TSH, LIPID, T7, CMP, BNP #### [facility] [address] [address] [address] Reji Thomas MAGNESIUMon 03-22-2023 Magnesium [Mass/Vol] 2.4 mg/dL Normal 1.8-2.4 [facility] Comment on above: Performed By: #### B GERONTOLOGY AIDE, CMP, TSH, LIPID #### [facility] [address] [place] [address] Dr. Reji hTomas PROF 14(COMP METB)on 023 Albumin [Mass/Vol] 3.4 g/dL Normal 3.4-5.0 [facility] Comment on above: Performed By: #### M G, TSH, LIPID, T7, CMP, BNP #### [facility] [address] [place] [address] Dr. Reji Thomas Albumin/Globulin [Mass ratio] 0.8 {ratio} Normal [facility] Comment on above: Performed By: #### M G, TSH, LIPID, T7, CMP, BNP #### [facility] [address] [place] [address] Dr. Reji Thomas ALP [Catalytic activity/Vol] 61 U/L Normal 46-116 [facility] Comment on above: Performed By: #### M G, TSH, LIPID, T7, CMP, BNP #### [facility] [address] [place] [address] Dr. Reji Thomas ALT [Catalytic activity/Vol] 15 U/L Normal 14-59 [facility] Comment on above: Performed By: #### M G, TSH, LIPID, T7, CMP, BNP #### [facility] [address] [place] [address] Dr. Reji Thomas Anion gap [Moles/Vol] 13.1 mmol/L Normal [facility] Comment on above: Performed By: #### M G, TSH, LIPID, T7, CMP, BNP #### [facility] [address] [place] [address] Dr. Reji Thomas AST [Catalytic activity/Vol] 13 U/L Critically low 15-37 [facility] Comment on above: Performed By: #### M G, TSH, LIPID, T7, CMP, BNP #### [facility] [address] [place] [address] Dr. Reji Thomas Bilirubin [Mass/Vol] 0.4 mg/dL Normal 0.2-1.0 [facility] Comment on above: Performed By: #### M G, TSH, LIPID, T7, CMP, BNP #### [facility] [address] [place] [address] Dr. Reji Thomas Calcium [Mass/Vol] 8.5 mg/dL Normal 8.5-10.1 [facility] Comment on above: Performed By: #### M G, TSH, LIPID, T7, CMP, BNP #### [facility] [address] [place] [address] Dr. Reji Thomas Chloride [Moles/Vol] 106 mmol/L Normal 98-107 [facility] Comment on above: Performed By: #### M G, TSH, LIPID, T7, CMP, BNP #### [facility] [address] [place] [address] Dr. Reji Thomas CO2 [Moles/Vol] 27.6 mmol/L Normal 21.0-32.0 [facility] Comment on above: Performed By: #### M G, TSH, LIPID, T7, CMP, BNP #### [facility] [address] [place] [address] Dr. Reji Thomas Creatinine [Mass/Vol] 2.32 mg/dL Critically high 0.55-1.02 [facility] Comment on above: Performed By: #### M G, TSH, LIPID, T7, CMP, BNP #### [facility] [address] [place] [address] Dr. Reji Thomas EGFR-AF MONTENEGRIN 24 mL/min/1.73m2 Critically low >=60 [facility] Comment on above: Performed By: #### M G, TSH, LIPID, T7, CMP, BNP #### [facility] [address] [place] [address] Dr. Reji Thomas EGFR-NON AF MONTENEGRIN 20 mL/min/1.73m2 Critically low >=60 [facility] Comment on above: Performed By: #### M G, TSH, LIPID, T7, CMP, BNP #### [facility] [address] [place] [address] Dr. Reji Thomas Globulin (S) [Mass/Vol] 4.3 g/dL Normal [facility] Comment on above: Performed By: #### M G, TSH, LIPID, T7, CMP, BNP #### [facility] [address] [address] [address] Reji Thomas Glucose [Mass/Vol] 88 mg/dL Normal 74-106 [facility] Comment on above: Performed By: #### M G, TSH, LIPID, T7, CMP, BNP #### [facility] [address] [address] [address] Reji Thomas Potassium [Moles/Vol] 4.7 mmol/L Normal 3.5-5.1 [facility] Comment on above: Performed By: #### M G, TSH, LIPID, T7, CMP, BNP #### [facility] [address] [address] [address] Reji Thomas Protein [Mass/Vol] 7.7 g/dL Normal 6.4-8.2 [facility] Comment on above: Performed By: #### M G, TSH, LIPID, T7, CMP, BNP #### [facility] [address] [place] [address] Dr. Reji Thomas Sodium [Moles/Vol] 142 mmol/L Normal 136-145 [facility] Comment on above: Performed By: #### M G, TSH, LIPID, T7, CMP, BNP #### [facility] [address] [address] [address] Reji Thomas Urea nitrogen [Mass/Vol] 38.0 mg/dL Critically high 7.0-18.0 [facility] Comment on above: Performed By: #### M G, TSH, LIPID, T7, CMP, BNP #### [facility] [address] [place] [address] Dr. Reji Thomas Urea nitrogen/Creatinine [Mass ratio] 16.4 mg/mg Normal [facility] Comment on above: Performed By: #### M G, TSH, LIPID, T7, CMP, BNP #### [facility] [address] [place] [address] Dr. Reji Thomas PROTIMEon 03-22-2023 INR Coag (PPP) [Relative time] 1.98 {INR} Normal [facility] Comment on above: Performed By: #### P T #### [facility] [address] [place] [address] Dr. Reji Thomas INR GUIDELINES SEE BELOW Normal [facility] Comment on above: Result Comment: SHY RED INR: 2.0 - 3.0 CONDITIONS NOT LISTED BELOW 2.5 - 3.5 FOR PROSTHETIC HEART VALVE REPLACEMENT 2.5 - 3.5 RECURRENT THROMBOSIS Performed By: #### P T #### [facility] [address] [place] [address] Dr. Reji Thomas PT Coag (PPP) [Time] 20.2 s Critically high 9.0-11.6 [facility] Comment on above: Performed By: #### P T #### [facility] [address] [place] [address] Dr. Reji Thomas TSHon 03-22-2023 TSH 2.265 uIU/mL Normal 0.358-3.740 [facility] Comment on above: Performed By: #### B GERONTOLOGY AIDE, CMP, TSH, LIPID #### [facility] [address] [place] [address] Dr. Reji Thomas VITAMIN D 25 OHon 03-22-2023 VIT D 25-OH 53.1 ng/mL Normal [facility] Comment on above: Performed By: #### B MP #### [facility] [address] [place] [address] Dr. Reji Thomas VIT D RANGES SEE BELOW Normal [facility] Comment on above: Result Comment: <20 ng/mL Vit D deficient 20 - <30 ng/mL Vit D insufficient 30 - 100 ng/mL Vit D sufficient >100 ng/mL Potential Toxicity Performed By: #### B MP #### [facility] [address] [place] [address] Dr. Reji Thomas PROTIMEon 02-22-2023 INR Coag (PPP) [Relative time] 2.22 {INR} Normal [facility] Comment on above: Performed By: #### B GERONTOLOGY AIDE, CMP, TSH, LIPID #### [facility] [address] [place] [address] Dr. Reji Thomas INR GUIDELINES SEE BELOW Normal [facility] Comment on above: Result Comment: SHY RED INR: 2.0 - 3.0 CONDITIONS NOT LISTED BELOW 2.5 - 3.5 FOR PROSTHETIC HEART VALVE REPLACEMENT 2.5 - 3.5 RECURRENT THROMBOSIS Performed By: #### B GERONTOLOGY AIDE, CMP, TSH, LIPID #### [facility] [address] [place] [address] Dr. Reji Thomas PT Coag (PPP) [Time] 22.5 s Critically high 9.0-11.6 [facility] Comment on above: Performed By: #### B GERONTOLOGY AIDE, CMP, TSH, LIPID #### [facility] [address] [place] [address] Dr. Reji Thomas PROTIMEon 01-03-2023 INR Coag (PPP) [Relative time] 2.53 {INR} Normal [facility] Comment on above: Performed By: #### B MP #### [facility] [address] [place] [address] Dr. Reji Thomas INR GUIDELINES SEE BELOW Normal [facility] Comment on above: Result Comment: SHY RED INR: 2.0 - 3.0 CONDITIONS NOT LISTED BELOW 2.5 - 3.5 FOR PROSTHETIC HEART VALVE REPLACEMENT 2.5 - 3.5 RECURRENT THROMBOSIS Performed By: #### B MP #### [facility] [address] [place] [address] Dr. Reji Thomas PT Coag (PPP) [Time] 25.4 s Critically high 9.0-11.6 [facility] [facility] Comment on above: Performed By: #### B MP #### [facility] [address] [place] [address] Dr. Reji Thomas PROTIMEon 11-23-2022 INR Coag (PPP) [Relative time] 1.71 {INR} Normal [facility] Comment on above: Performed By: #### B GERONTOLOGY AIDE, CMP, TSH, LIPID #### [facility] [address] [place] [address] Dr. Reji Thomas INR GUIDELINES SEE BELOW Normal [facility] Comment on above: Result Comment: SHY RED INR: 2.0 - 3.0 CONDITIONS NOT LISTED BELOW 2.5 - 3.5 FOR PROSTHETIC HEART VALVE REPLACEMENT 2.5 - 3.5 RECURRENT THROMBOSIS Performed By: #### B GERONTOLOGY AIDE, CMP, TSH, LIPID #### [facility] [address] [place] [address] Dr. Reji Thomas PT Coag (PPP) [Time] 17.6 s Critically high 9.0-11.6 [facility] Comment on above: Performed By: #### B GERONTOLOGY AIDE, CMP, TSH, LIPID #### [facility] [address] [place] [address] Dr. Reji Thomas PROTIMEon 10-10-2022 INR Coag (PPP) [Relative time] 2.52 {INR} Normal [facility] Comment on above: Performed By: #### B GERONTOLOGY AIDE, CMP, TSH, LIPID #### [facility] [address] [place] [address] Dr. Reji Thomas INR GUIDELINES SEE BELOW Normal [facility] Comment on above: Result Comment: SHY RED INR: 2.0 - 3.0 CONDITIONS NOT LISTED BELOW 2.5 - 3.5 FOR PROSTHETIC HEART VALVE REPLACEMENT 2.5 - 3.5 RECURRENT THROMBOSIS Performed By: #### B GERONTOLOGY AIDE, CMP, TSH, LIPID #### [facility] [address] [place] [address] Dr. Reji Thomas PT Coag (PPP) [Time] 25.6 s Critically high 9.0-11.6 [facility] Comment on above: Performed By: #### B GERONTOLOGY AIDE, CMP, TSH, LIPID #### [facility] [address] [place] [address] Dr. Reji Thomas PROTIMEon 09-05-2022 INR Coag (PPP) [Relative time] 2.03 {INR} Normal [facility] Comment on above: Performed By: #### B GERONTOLOGY AIDE, CMP, TSH, LIPID #### [facility] [address] [place] [address] Dr. Reji Thomas INR GUIDELINES SEE BELOW Normal [facility] Comment on above: Result Comment: SHY RED INR: 2.0 - 3.0 CONDITIONS NOT LISTED BELOW 2.5 - 3.5 FOR PROSTHETIC HEART VALVE REPLACEMENT 2.5 - 3.5 RECURRENT THROMBOSIS Performed By: #### B GERONTOLOGY AIDE, CMP, TSH, LIPID #### [facility] [address] [place] [address] Dr. Reji Thomas PT Coag (PPP) [Time] 20.9 s Critically high 9.0-11.6 [facility] Comment on above: Performed By: #### B GERONTOLOGY AIDE, CMP, TSH, LIPID #### [facility] [address] [place] [address] Dr. Reji Thomas BNPon 08-10-2022 Natriuretic peptide B (Bld) [Mass/Vol] 1162.0 pg/mL Normal <=1,800.0 [facility] Comment on above: Performed By: #### B MP, BNP #### [facility] [address] [place] [address] Dr. Reji Thomas PROF CHEM 8 (BAS METB)on Anion gap [Moles/Vol] 11.3 mmol/L Normal [facility] Comment on above: Performed By: #### B MP, BNP #### [facility] [address] [place] [address] Dr. Reji Thomas Calcium [Mass/Vol] 8.9 mg/dL Normal 8.5-10.1 [facility] Comment on above: Performed By: #### B MP, BNP #### [facility] [address] [place] [address] Dr. Reji Thomas Chloride [Moles/Vol] 103 mmol/L Normal 98-107 [facility] Comment on above: Performed By: #### B MP, BNP #### [facility] [address] [place] [address] Dr. Reji Thomas CO2 [Moles/Vol] 28.2 mmol/L Normal 21.0-32.0 [facility] Comment on above: Performed By: #### B MP, BNP #### [facility] [address] [place] [address] Dr. Reji Thomas Creatinine [Mass/Vol] 2.07 mg/dL Critically high 0.55-1.02 [facility] Comment on above: Performed By: #### B MP, BNP #### [facility] [address] [place] [address] Dr. Reji Thomas EGFR-AF MONTENEGRIN 28 mL/min/1.73m2 Critically low >=60 [facility] Comment on above: Performed By: #### B MP, BNP #### [facility] [address] [address] [address] Reji Thomas EGFR-NON AF MONTENEGRIN 23 mL/min/1.73m2 Critically low >=60 [facility] Comment on above: Performed By: #### B MP, BNP #### [facility] [address] [address] [address] Reji Thomas Glucose [Mass/Vol] 88 mg/dL Normal 74-106 [facility] Comment on above: Performed By: #### B MP, BNP #### [facility] [address] [place] [address] Dr. Reji Thomas Potassium [Moles/Vol] 4.5 mmol/L Normal 3.5-5.1 [facility] Comment on above: Performed By: #### B MP, BNP #### [facility] [address] [place] [address] Dr. Reji Thomas Sodium [Moles/Vol] 138 mmol/L Normal 136-145 [facility] Comment on above: Performed By: #### B MP, BNP #### [facility] [address] [place] [address] Dr. Reji Thomas Urea nitrogen [Mass/Vol] 35.0 mg/dL Critically high 7.0-18.0 [facility] Comment on above: Performed By: #### B MP, BNP #### [facility] [address] [place] [address] Dr. Reji Thomas Urea nitrogen/Creatinine [Mass ratio] 16.9 mg/mg Normal [facility] Comment on above: Performed By: #### B MP, BNP #### [facility] [address] [place] [address] Dr. Reji Thomas PROTIMEon 08-09-2022 INR Coag (PPP) [Relative time] 2.04 {INR} Normal [facility] Comment on above: Performed By: #### B GERONTOLOGY AIDE, CMP, TSH, LIPID #### [facility] [address] [place] [address] Dr. Reji Thomas INR GUIDELINES SEE BELOW Normal [facility] Comment on above: Result Comment: SHY RED INR: 2.0 - 3.0 CONDITIONS NOT LISTED BELOW 2.5 - 3.5 FOR PROSTHETIC HEART VALVE REPLACEMENT 2.5 - 3.5 RECURRENT THROMBOSIS Performed By: #### B GERONTOLOGY AIDE, CMP, TSH, LIPID #### [facility] [address] [place] [address] Dr. Reji Thomas PT Coag (PPP) [Time] 21.0 s Critically high 9.0-11.6 [facility] Comment on above: Performed By: #### B GERONTOLOGY AIDE, CMP, TSH, LIPID #### [facility] [address] [place] [address] Dr. Reji Thomas BNPon 07-09-2022 Natriuretic peptide B (Bld) [Mass/Vol] 2085.0 pg/mL Critically high <=1,800.0 [facility] Comment on above: Result Comment: CRIT ICAL CALLED TO OFFICE ON 07-10-22 AT 0850 BY AR Performed By: #### B GERONTOLOGY AIDE, CMP, TSH, LIPID #### [facility] [address] [place] [address] Dr. Rjei Thomas PROF CHEM 8 (BAS METB)on Anion gap [Moles/Vol] 13.7 mmol/L Normal [facility] Comment on above: Performed By: #### B GERONTOLOGY AIDE, CMP, TSH, LIPID #### [facility] [address] [place] [address] Dr. Reji Thomas Calcium [Mass/Vol] 8.3 mg/dL Critically low 8.5-10.1 [facility] Comment on above: Performed By: #### B GERONTOLOGY AIDE, CMP, TSH, LIPID #### [facility] [address] [place] [address] Dr. Reji Thomas Chloride [Moles/Vol] 104 mmol/L Normal 98-107 [facility] Comment on above: Performed By: #### B GERONTOLOGY AIDE, CMP, TSH, LIPID #### [facility] [address] [place] [address] Dr. Reji Thomas CO2 [Moles/Vol] 26.6 mmol/L Normal 21.0-32.0 [facility] Comment on above: Performed By: #### B GERONTOLOGY AIDE, CMP, TSH, LIPID #### [facility] [address] [address] [address] Reji Thomas Creatinine [Mass/Vol] 1.98 mg/dL Critically high 0.55-1.02 [facility] Comment on above: Performed By: #### B GERONTOLOGY AIDE, CMP, TSH, LIPID #### [facility] [address] [address] [address] Reji Thomas EGFR-AF MONTENEGRIN 29 mL/min/1.73m2 Critically low >=60 [facility] Comment on above: Performed By: #### B GERONTOLOGY AIDE, CMP, TSH, LIPID #### [facility] [address] [place] [address] Dr. Reji Thomas EGFR-NON AF MONTENEGRIN 24 mL/min/1.73m2 Critically low >=60 [facility] Comment on above: Performed By: #### B GERONTOLOGY AIDE, CMP, TSH, LIPID #### [facility] [address] [address] [address] Reji Thomas Glucose [Mass/Vol] 116 mg/dL Critically high 74-106 [facility] Comment on above: Performed By: #### B GERONTOLOGY AIDE, CMP, TSH, LIPID #### [facility] [address] [address] [address] Reji Thomas Potassium [Moles/Vol] 4.3 mmol/L Normal 3.5-5.1 [facility] Comment on above: Performed By: #### B GERONTOLOGY AIDE, CMP, TSH, LIPID #### [facility] [address] [address] [address] Reji Thomas Sodium [Moles/Vol] 140 mmol/L Normal 136-145 [facility] Comment on above: Performed By: #### B GERONTOLOGY AIDE, CMP, TSH, LIPID #### [facility] [address] [address] [address] Reji Thomas Urea nitrogen [Mass/Vol] 35.0 mg/dL Critically high 7.0-18.0 [facility] Comment on above: Performed By: #### B GERONTOLOGY AIDE, CMP, TSH, LIPID #### [facility] [address] [address] [address] Reji Thomas Urea nitrogen/Creatinine [Mass ratio] 17.7 mg/mg Normal [facility] Comment on above: Performed By: #### B GERONTOLOGY AIDE, CMP, TSH, LIPID #### [facility] [address] [place] [address] Dr. Reji Thomas PROTIMEon 07-09-2022 INR Coag (PPP) [Relative time] 2.99 {INR} Normal [facility] Comment on above: Performed By: #### B GERONTOLOGY AIDE, CMP, TSH, LIPID #### [facility] [address] [place] [address] Dr. Reji Thomas INR GUIDELINES SEE BELOW Normal [facility] Comment on above: Result Comment: SHY RED INR: 2.0 - 3.0 CONDITIONS NOT LISTED BELOW 2.5 - 3.5 FOR PROSTHETIC HEART VALVE REPLACEMENT 2.5 - 3.5 RECURRENT THROMBOSIS Performed By: #### B GERONTOLOGY AIDE, CMP, TSH, LIPID #### [facility] [address] [place] [address] Dr. Reji Thomas PT Coag (PPP) [Time] 30.1 s Critically high 9.0-11.6 [facility] Comment on above: Performed By: #### B GERONTOLOGY AIDE, CMP, TSH, LIPID #### [facility] [address] [place] [address] Dr. Reji Thomas US KIDNEYSon 07-06-2022 US [...] by: SIGRID RICHMOND Date: 2022-07-06 13:31 Normal [facility] EVAN Antinuclear Antibodieson 06-19-2022 Antinuclear Abs, IFA Positive Critically abnormal . [facility] Comment on above: Result Comment: Nega tive <1:80 Borderline 1:80 Positive >1:80 Performed By: #### Krista CHOW ADDONUAPLUS #### [facility] [address] [place] [address] #### C3, C4, CH50 #### [facility] , Homogeneous Pattern 1:320 High . [facility] Comment on above: Result Comment: ICAP nomenclature: [id number] Performed By: #### Krista CHOW ADDONUAPLUS #### [facility] [address] [place] [address] #### C3, C4, CH50 #### [facility] , Note 1 Normal . [facility] Comment on above: Result Comment: [...] titers Nucleosomes, Histones Drug-induced SLE Speckled Sm, SMALL PARTS ASSEMBLER, SCL-70, SLE,MCTD,PSS (diffuse form), SS-A/SS-B Sjogrens Nucleolar SCL-70, PM-1/SCL High titers Scleroderma, PM/DM Centromere Centromere PSS (limited form) w/Crest syndrome variable Nuclear Dot [id number] Primary Biliary Cirrhosis Nuclear GP210, Primary Biliary Cirrhosis Membrane eleonora A,B,C Performed at: [facility] - [address] [id number] Mail Courier: Demarcus Lawton PhD, Phone: [phone] Performed By: #### C UU, ADDONUAPLUS #### [address] #### C3, C4, CH50 #### [facility] , Anti-RNPon 06-19-2022 Anti-SMALL PARTS ASSEMBLER 0.4 Normal 0.0-0.9 [facility] Comment on above: Result Comment: Perf ormed at: [address] [id number] Mail Courier: Demarcus Lawton PhD, Phone: [phone] Performed By: #### C UU, ADDONUAPLUS #### [address] #### C3, C4, CH50 #### [facility] , C-Reactive Proteinon 022 C-Reactive Protein 2.0 mg/dL High 0.0-1.0 [facility] Comment on above: Result Comment: PERF ORMED BY: [place] [id number] PATHOLOGIST PIGEON FANCIER RADHA BULLARD M.D. Performed By: #### C UU, ADDONUAPLUS #### [address] #### C3, C4, CH50 #### [facility] , Complement C3on 06-19-2022 Complement C3 167 mg/dL Normal 82-167 [facility] Comment on above: Result Comment: Perf ormed at: [address] [id number] Mail Courier: Demarcus Lawton PhD, Phone: [phone] Performed By: #### C UU, ADDONUAPLUS #### [address] #### C3, C4, CH50 #### [facility] , Complement C4on 06-19-2022 Complement C4 37 mg/dL Normal 12-38 [facility] Comment on above: Performed By: #### C GERALDO ADDONUAPLUS #### [address] #### C3, C4, CH50 #### [facility] , Complement Total (CH50)on Complement Total (CH50) >60 Normal >41 [facility] Comment on above: Result Comment: Age [...] determine out of range values. Performed at: [facility] [id number] Mail Courier: Demarcus Lawton PhD, Phone: [phone] PERFORMED BY: [place] [id number] PATHOLOGIST PIGEON FANCIER RADHA BULLARD M.D. Performed By: #### C COURTNEY CHOWONUAPLUS #### [address] #### C3, C4, CH50 #### [facility] , Complete Blood Count Auto Di ffon 06-19-2022 Basophils (Bld) [#/Vol] 0.1 10*3/uL Normal 0.0-0.2 [facility] Comment on above: Performed By: #### H EPATIC, CBC, ESR, CRP, CREAT, CK #### [facility] [address] [place] [address] #### RNA POLYMR, ANTI TH TO, EVAN, U3 SMALL PARTS ASSEMBLER, ANTIR, PM-SCL ABS #### [facility] , Basophils/100 WBC (Bld) 0.9 % Normal . [facility] Comment on above: Performed By: #### H EPATIC, CBC, ESR, CRP, CREAT, CK #### [place] [address] [place] #### RNA POLYMR, ANTI TH TO, EVAN, U3 SMALL PARTS ASSEMBLER, ANTIR, PM-SCL ABS #### [facility] , Eosinophils (Bld) [#/Vol] 0.5 10*3/uL High 0.0-0.45 [facility] Comment on above: Performed By: #### H EPATIC, CBC, ESR, CRP, CREAT, CK #### [place] [address] [place] #### RNA POLYMR, ANTI TH TO, EVAN, U3 SMALL PARTS ASSEMBLER, ANTIR, PM-SCL ABS #### [facility] , Eosinophils/100 WBC (Bld) 8.6 % Normal . [facility] Comment on above: Performed By: #### H EPATIC, CBC, ESR, CRP, CREAT, CK #### [place] [address] [place] #### RNA POLYMR, ANTI TH TO, EVAN, U3 SMALL PARTS ASSEMBLER, ANTIR, PM-SCL ABS #### [facility] , Erythrocyte distribution width (RBC) [Ratio] 19.6 % High 11.9-15.3 [facility] Comment on above: Performed By: #### H EPATIC, CBC, ESR, CRP, CREAT, CK #### [place] [address] [place] #### RNA POLYMR, ANTI TH TO, EVAN, U3 SMALL PARTS ASSEMBLER, ANTIR, PM-SCL ABS #### [facility] , Hematocrit (Bld) [Volume fraction] 33.8 % Low 34.0-46.4 [facility] Comment on above: Performed By: #### H EPATIC, CBC, ESR, CRP, CREAT, CK #### [place] [address] [place] #### RNA POLYMR, ANTI TH TO, EVAN, U3 SMALL PARTS ASSEMBLER, ANTIR, PM-SCL ABS #### [facility] , Hemoglobin (Bld) [Mass/Vol] 10.9 g/dL Low 11.8-15.4 [facility] Comment on above: Performed By: #### H EPATIC, CBC, ESR, CRP, CREAT, CK #### [facility] [address] [place] [address] [place] #### RNA POLYMR, ANTI TH TO, EVAN, U3 SMALL PARTS ASSEMBLER, ANTIR, PM-SCL ABS #### [facility] , Lymphocytes (Bld) [#/Vol] 1.1 10*3/uL Normal 1.00-4.8 [facility] Comment on above: Performed By: #### H EPATIC, CBC, ESR, CRP, CREAT, CK #### [place] [address] [place] #### RNA POLYMR, ANTI TH TO, EVAN, U3 SMALL PARTS ASSEMBLER, ANTIR, PM-SCL ABS #### [facility] , Lymphocytes/100 WBC (Bld) 17.8 % Normal . [facility] Comment on above: Performed By: #### H EPATIC, CBC, ESR, CRP, CREAT, CK #### [place] [address] [place] #### RNA POLYMR, ANTI TH TO, EVAN, U3 SMALL PARTS ASSEMBLER, ANTIR, PM-SCL ABS #### [facility] , MCH (RBC) [Entitic mass] 26.4 pg Normal 24.7-34.3 [facility] Comment on above: Performed By: #### H EPATIC, CBC, ESR, CRP, CREAT, CK #### [facility] [address] [place] [address] [place] #### RNA POLYMR, ANTI TH TO, EVAN, U3 SMALL PARTS ASSEMBLER, ANTIR, PM-SCL ABS #### [facility] , MCV (RBC) [Entitic vol] 81.8 fL Normal 80-100 [facility] Comment on above: Performed By: #### H EPATIC, CBC, ESR, CRP, CREAT, CK #### [place] [address] [place] #### RNA POLYMR, ANTI TH TO, EVAN, U3 SMALL PARTS ASSEMBLER, ANTIR, PM-SCL ABS #### [facility] , Mean Corpuscular HGB Conc 32.3 g/dL Normal 32.0-35.0 [facility] Comment on above: Performed By: #### H EPATIC, CBC, ESR, CRP, CREAT, CK #### [address] #### RNA POLYMR, ANTI TH TO, EVAN, U3 SMALL PARTS ASSEMBLER, ANTIR, PM-SCL ABS #### [facility] , Monocytes (Bld) [#/Vol] 0.4 10*3/uL Normal 0.0-0.8 [facility] Comment on above: Performed By: #### H EPATIC, CBC, ESR, CRP, CREAT, CK #### [place] [address] [place] #### RNA POLYMR, ANTI TH TO, EVAN, U3 SMALL PARTS ASSEMBLER, ANTIR, PM-SCL ABS #### [facility] , Monocytes/100 WBC (Bld) 7.4 % Normal . [facility] Comment on above: Performed By: #### H EPATIC, CBC, ESR, CRP, CREAT, CK #### [facility] [address] [place] [address] [place] #### RNA POLYMR, ANTI TH TO, EVAN, U3 SMALL PARTS ASSEMBLER, ANTIR, PM-SCL ABS #### [facility] , Neutrophils (Bld) [#/Vol] 3.9 10*3/uL Normal 1.8-7.7 [facility] Comment on above: Performed By: #### H EPATIC, CBC, ESR, CRP, CREAT, CK #### [place] [address] [place] #### RNA POLYMR, ANTI TH TO, EVAN, U3 SMALL PARTS ASSEMBLER, ANTIR, PM-SCL ABS #### [facility] , Neutrophils/100 WBC (Bld) 65.3 % Normal . [facility] Comment on above: Performed By: #### H EPATIC, CBC, ESR, CRP, CREAT, CK #### [address] #### RNA POLYMR, ANTI TH TO, EVAN, U3 SMALL PARTS ASSEMBLER, ANTIR, PM-SCL ABS #### [facility] , Nucleated RBC/100 WBC (Bld) [Ratio] 0.0 % Normal 0-0.5 [facility] Comment on above: Performed By: #### H EPATIC, CBC, ESR, CRP, CREAT, CK #### [address] #### RNA POLYMR, ANTI TH TO, EVAN, U3 SMALL PARTS ASSEMBLER, ANTIR, PM-SCL ABS #### [facility] , Platelet mean volume (Bld) [Entitic vol] 7.2 fL Normal 6.3-10.7 [facility] Comment on above: Performed By: #### H EPATIC, CBC, ESR, CRP, CREAT, CK #### [place] [address] [place] #### RNA POLYMR, ANTI TH TO, EVAN, U3 SMALL PARTS ASSEMBLER, ANTIR, PM-SCL ABS #### [facility] , Platelets (Bld) [#/Vol] 237 10*3/uL Normal 150-450 [facility] Comment on above: Performed By: #### H EPATIC, CBC, ESR, CRP, CREAT, CK #### [facility] [address] [place] [address] [place] #### RNA POLYMR, ANTI TH TO, EVAN, U3 SMALL PARTS ASSEMBLER, ANTIR, PM-SCL ABS #### [facility] , RBC (Bld) [#/Vol] 4.14 10*6/uL Normal 3.60-5.00 [facility] Comment on above: Performed By: #### H EPATIC, CBC, ESR, CRP, CREAT, CK #### [facility] [address] [place] [address] #### RNA POLYMR, ANTI TH TO, EVAN, U3 SMALL PARTS ASSEMBLER, ANTIR, PM-SCL ABS #### [facility] , WBC (Bld) [#/Vol] 6.0 10*3/uL Normal 4.5-11.0 [facility] Comment on above: Performed By: #### H EPATIC, CBC, ESR, CRP, CREAT, CK #### [facility] [address] [place] [address] #### RNA POLYMR, ANTI TH TO, EVAN, U3 SMALL PARTS ASSEMBLER, ANTIR, PM-SCL ABS #### [facility] , Creatine Kinaseon 06-19-2022 CK [Catalytic activity/Vol] 38 U/L Normal 22-269 [facility] Comment on above: Result Comment: PERF ORMED BY: [place] [id number] PATHOLOGIST PIGEON FANCIER RADHA BULLARD M.D. Performed By: #### H EPATIC, CBC, ESR, CRP, CREAT, CK #### [address] #### RNA POLYMR, ANTI TH TO, EVAN, U3 SMALL PARTS ASSEMBLER, ANTIR, PM-SCL ABS #### [facility] , Creatinineon 06-19-2022 Creatinine [Mass/Vol] 2.82 mg/dL High 0.44-1.03 [facility] Comment on above: Performed By: #### H EPATIC, CBC, ESR, CRP, CREAT, CK #### [facility] [address] [place] [address] [place] #### RNA POLYMR, ANTI TH TO, EVAN, U3 SMALL PARTS ASSEMBLER, ANTIR, PM-SCL ABS #### [facility] , Estimated GFR ( Oralia 19 Normal [facility] Comment on above: Result Comment: GFR estimated reference range: According to KDOQI guidelines, <60 ml/min/1.73m2 is sufficient to diagnose a patient with chronic kidney disease. Performed By: #### H EPATIC, CBC, ESR, CRP, CREAT, CK #### [address] #### RNA POLYMR, ANTI TH TO, EVAN, U3 SMALL PARTS ASSEMBLER, ANTIR, PM-SCL ABS #### [facility] , Estimated GFR (Non- Am 16 Normal [facility] Comment on above: Performed By: #### H EPATIC, CBC, ESR, CRP, CREAT, CK #### [address] #### RNA POLYMR, ANTI TH TO, EVAN, U3 SMALL PARTS ASSEMBLER, ANTIR, PM-SCL ABS #### [facility] , Dipstick and Microscopicon 0 06-19-2022 Appearance (U) Cloudy Critically abnormal Clear [facility] Comment on above: Order Comment: Name Collection Type:: Clean-Voided Midstream Performed By: #### C UU, ADDONUAPLUS #### [address] #### C3, C4, CH50 #### [facility] , Bacteria,Urine 1+ High None Seen [facility] Comment on above: Order Comment: Name Collection Type:: Clean-Voided Midstream Performed By: #### C UU, ADDONUAPLUS #### [address] #### C3, C4, CH50 #### [facility] , Bilirubin,Urine Negative Normal Negative [facility] Comment on above: Order Comment: Name Collection Type:: Clean-Voided Midstream Performed By: #### C UU, ADDONUAPLUS #### [address] #### C3, C4, CH50 #### [facility] , Color (U) Yellow Normal Yellow [facility] Comment on above: Order Comment: Name Collection Type:: Clean-Voided Midstream Performed By: #### C UU, ADDONUAPLUS #### [address] #### C3, C4, CH50 #### [facility] , Glucose Ql (U) Normal Normal Normal [facility] Comment on above: Order Comment: Name Collection Type:: Clean-Voided Midstream Performed By: #### C UU, ADDONUAPLUS #### [address] #### C3, C4, CH50 #### [facility] , Hyaline Casts,Urine 1-2 Normal 0-8 [facility] Comment on above: Order Comment: Name Collection Type:: Clean-Voided Midstream Result Comment: PERF ORMED BY: [place] [id number] PATHOLOGIST PIGEON FANCIER RADHA BULLARD M.D. Performed By: #### C UU, ADDONUAPLUS #### [address] #### C3, C4, CH50 #### [facility] , Ketones Ql (U) Negative Normal Negative [facility] Comment on above: Order Comment: Name Collection Type:: Clean-Voided Midstream Performed By: #### C UU, ADDONUAPLUS #### [address] #### C3, C4, CH50 #### [facility] , Leukocyte esterase Test strip Ql (U) 4+ High Negative [facility] Comment on above: Order Comment: Name Collection Type:: Clean-Voided Midstream Performed By: #### C UU, ADDONUAPLUS #### [address] #### C3, C4, CH50 #### [facility] , Nitrite,Urine Negative Normal Negative [facility] Comment on above: Order Comment: Name Collection Type:: Clean-Voided Midstream Performed By: #### C UU, ADDONUAPLUS #### [address] #### C3, C4, CH50 #### [facility] , Occult Blood,Urine 1+ High Negative [facility] Comment on above: Order Comment: Name Collection Type:: Clean-Voided Midstream Performed By: #### C UU, ADDONUAPLUS #### [address] #### C3, C4, CH50 #### [facility] , pH (U) 6.5 [pH] Normal 5.0-9.0 [facility] Comment on above: Order Comment: Name Collection Type:: Clean-Voided Midstream Performed By: #### C UU, ADDONUAPLUS #### [address] #### C3, C4, CH50 #### [facility] , Protein,Urine Trace High Negative [facility] Comment on above: Order Comment: Name Collection Type:: Clean-Voided Midstream Performed By: #### C UU, ADDONUAPLUS #### [facility] [address] [place] [address] #### C3, C4, CH50 #### [facility] , RBC,Urine 1-2 Normal 0-4 [facility] Comment on above: Order Comment: Name Collection Type:: Clean-Voided Midstream Performed By: #### C UU, ADDONUAPLUS #### [address] #### C3, C4, CH50 #### [facility] , Specificy Iliff,Urine 1.010 Normal 1.001-1.030 [facility] Comment on above: Order Comment: Name Collection Type:: Clean-Voided Midstream Performed By: #### C UU, ADDONUAPLUS #### [address] #### C3, C4, CH50 #### [facility] , Squamous Epithelial Cell,Urine 5-9 High 0-2 [facility] Comment on above: Order Comment: Name Collection Type:: Clean-Voided Midstream Performed By: #### C UU, ADDONUAPLUS #### [address] #### C3, C4, CH50 #### [facility] , Urobilinogen,Urine Normal Normal Normal [facility] Comment on above: Order Comment: Name Collection Type:: Clean-Voided Midstream Performed By: #### C UU, ADDONUAPLUS #### [address] #### C3, C4, CH50 #### [facility] , WBC,Urine Innumerable High 0-4 [facility] Comment on above: Order Comment: Name Collection Type:: Clean-Voided Midstream Performed By: #### C UU, ADDONUAPLUS #### [address] #### C3, C4, CH50 #### [facility] , Erythrocyte Sedimentation Ra pratik 06-19-2022 ESR (Bld) [Velocity] 57 mm/h High 0-29 [facility] Comment on above: Result Comment: PERF ORMED BY: [place] [id number] PATHOLOGIST PIGEON FANCIER RADHA BULLARD M.D. Performed By: #### H EPATIC, CBC, ESR, CRP, CREAT, CK #### [address] #### RNA POLYMR, ANTI TH TO, EVAN, U3 SMALL PARTS ASSEMBLER, ANTIR, PM-SCL ABS #### [facility] , Hepatic Panelon 06-19-2022 Albumin [Mass/Vol] 3.6 g/dL Normal 3.2-5.5 [facility] Comment on above: Performed By: #### H EPATIC, CBC, ESR, CRP, CREAT, CK #### [facility] [address] [place] [address] #### RNA POLYMR, ANTI TH TO, EVAN, U3 SMALL PARTS ASSEMBLER, ANTIR, PM-SCL ABS #### [facility] , Albumin/Globulin [Mass ratio] 1.0 {ratio} Normal [facility] Comment on above: Performed By: #### H EPATIC, CBC, ESR, CRP, CREAT, CK #### [facility] [address] [place] [address] #### RNA POLYMR, ANTI TH TO, EVAN, U3 SMALL PARTS ASSEMBLER, ANTIR, PM-SCL ABS #### [facility] , ALP [Catalytic activity/Vol] 68 U/L Normal 32-92 [facility] Comment on above: Performed By: #### H EPATIC, CBC, ESR, CRP, CREAT, CK #### [facility] [address] [place] [address] [place] #### RNA POLYMR, ANTI TH TO, EVAN, U3 SMALL PARTS ASSEMBLER, ANTIR, PM-SCL ABS #### [facility] , ALT [Catalytic activity/Vol] 9 U/L Low 10-60 [facility] Comment on above: Performed By: #### H EPATIC, CBC, ESR, CRP, CREAT, CK #### [facility] [address] [place] [address] [place] #### RNA POLYMR, ANTI TH TO, EVAN, U3 SMALL PARTS ASSEMBLER, ANTIR, PM-SCL ABS #### [facility] , AST [Catalytic activity/Vol] 15 U/L Normal 10-42 [facility] Comment on above: Performed By: #### H EPATIC, CBC, ESR, CRP, CREAT, CK #### [place] [address] [place] #### RNA POLYMR, ANTI TH TO, EVAN, U3 SMALL PARTS ASSEMBLER, ANTIR, PM-SCL ABS #### [facility] , Bilirubin [Mass/Vol] 0.6 mg/dL Normal 0.3-1.2 [facility] Comment on above: Performed By: #### H EPATIC, CBC, ESR, CRP, CREAT, CK #### [place] [address] [place] #### RNA POLYMR, ANTI TH TO, EVAN, U3 SMALL PARTS ASSEMBLER, ANTIR, PM-SCL ABS #### [facility] , Bilirubin,Indirect 0.4 mg/dL Normal [facility] Comment on above: Performed By: #### H EPATIC, CBC, ESR, CRP, CREAT, CK #### [place] [address] [place] #### RNA POLYMR, ANTI TH TO, EVAN, U3 SMALL PARTS ASSEMBLER, ANTIR, PM-SCL ABS #### [facility] , Bilirubin.indirect [Mass/Vol] 0.2 mg/dL Normal 0.0-0.4 [facility] Comment on above: Performed By: #### H EPATIC, CBC, ESR, CRP, CREAT, CK #### [address] #### RNA POLYMR, ANTI TH TO, EVAN, U3 SMALL PARTS ASSEMBLER, ANTIR, PM-SCL ABS #### [facility] , Globulin (S) [Mass/Vol] 3.5 g/dL Normal [facility] Comment on above: Performed By: #### H EPATIC, CBC, ESR, CRP, CREAT, CK #### [place] [address] [place] #### RNA POLYMR, ANTI TH TO, EVAN, U3 SMALL PARTS ASSEMBLER, ANTIR, PM-SCL ABS #### [facility] , Protein [Mass/Vol] 7.1 g/dL Normal 6.1-7.9 [facility] Comment on above: Performed By: #### H EPATIC, CBC, ESR, CRP, CREAT, CK #### [facility] [address] [place] [address] #### RNA POLYMR, ANTI TH TO, EVAN, U3 SMALL PARTS ASSEMBLER, ANTIR, PM-SCL ABS #### [facility] , PM-SCL Antibodieson 06-19-20 22 RAIZA PM-Scl Antibody <20 Normal <20 [facility] Comment on above: Result Comment: This test was developed and its performance characteristics determined by [facility]. It has not been cleared or approved by the Food and Drug Administration. Negative: <20 Weak Positive: 20 - 39 Moderate Positive: 40 - 80 Strong Positive: >80 Performed at: [facility] [address] [place] [address] [id number] Mail Courier: Artemio Nair MD, Phone: [phone] Performed By: #### C UU, ADDONUAPLUS #### [address] #### C3, C4, CH50 #### [facility] , RNA Polymerase IIion 022 RNA Polymerase IIi <20 Normal <20 [facility] Comment on above: Result Comment: Nega tive: <20 Weak Positive: 20 - 39 Moderate Positive: 40 - 80 Strong Positive: >80 Performed at: [facility] [address] [place] [address] [id number] Mail Courier: Artemio Nair MD, Phone: [phone] PERFORMED BY: [place] [id number] PATHOLOGIST PIGEON FANCIER RADHA BULLARD M.D. Performed By: #### C UU, ADDONUAPLUS #### [place] [address] [place] #### C3, C4, CH50 #### [facility] , Th/To Antibodyon 06-19-2022 Th/To Antibody Negative Normal Negative [facility] Comment on above: Result Comment: This test was developed and its performance characteristics determined by [facility]. It has not been cleared or approved by the Food and Drug Administration. Performed at: [facility] [address] [place] [address] [id number] Mail Courier: Artemio Nair MD, Phone: [phone] Performed By: #### C UU, ADDONUAPLUS #### [facility] [address] [place] [address] #### C3, C4, CH50 #### [facility] , U3 Rnpon 06-19-2022 [employer] Negative Normal Negative [facility] Comment on above: Result Comment: This test was developed and its performance characteristics determined by [facility]. It has not been cleared or approved by the Food and Drug Administration. Performed at: [facility] [address] [place] [address] [id number] Mail Courier: Artemio Nair MD, Phone: [phone] PERFORMED BY: [place] [id number] PATHOLOGIST PIGEON FANCIER RADHA BULLARD M.D. Performed By: #### C UU, ADDONUAPLUS #### [address] #### C3, C4, CH50 #### [facility] , Urine Cultureon 06-19-2022 Bacteria identified Cx Nom (U) No Growth 2 Days PERFORMED BY: [place] [id number] PATHOLOGIST PIGEON FANCIER RADHA BULLARD M.D. [facility] Comment on above: Performed By: #### C UU, ADDONUAPLUS #### [address] #### C3, C4, CH50 #### [facility] , PROF CHEM 8 (BAS METB)on Anion gap [Moles/Vol] 12.5 mmol/L Normal [facility] Comment on above: Performed By: #### B MP #### [facility] [address] [address] [address] Reji Thomas Calcium [Mass/Vol] 8.9 mg/dL Normal 8.5-10.1 [facility] Comment on above: Performed By: #### B MP #### [facility] [address] [address] [address] Reji Thomas Chloride [Moles/Vol] 103 mmol/L Normal 98-107 [facility] Comment on above: Performed By: #### B MP #### [facility] [address] [address] [address] Reji Thomas CO2 [Moles/Vol] 26.1 mmol/L Normal 21.0-32.0 [facility] Comment on above: Performed By: #### B MP #### [facility] [address] [place] [address] Dr. Reji Thomas Creatinine [Mass/Vol] 2.09 mg/dL Critically high 0.55-1.02 [facility] Comment on above: Performed By: #### B MP #### [facility] [address] [place] [address] Dr. Reji Thomas EGFR-AF MONTENEGRIN 27 mL/min/1.73m2 Critically low >=60 [facility] Comment on above: Performed By: #### B MP #### [facility] [address] [place] [address] Dr. Reji Thomas EGFR-NON AF MONTENEGRIN 23 mL/min/1.73m2 Critically low >=60 [facility] Comment on above: Performed By: #### B MP #### [facility] [address] [address] [address] Reji Thomas Glucose [Mass/Vol] 96 mg/dL Normal 74-106 [facility] Comment on above: Performed By: #### B MP #### [facility] [address] [place] [address] Dr. Reji Thomas Potassium [Moles/Vol] 4.6 mmol/L Normal 3.5-5.1 [facility] Comment on above: Performed By: #### B MP #### [facility] [address] [address] [address] Reji Thomas Sodium [Moles/Vol] 137 mmol/L Normal 136-145 [facility] Comment on above: Performed By: #### B MP #### [facility] [address] [address] [address] Reji Thomas Urea nitrogen [Mass/Vol] 38.0 mg/dL Critically high 7.0-18.0 [facility] Comment on above: Performed By: #### B MP #### [facility] [address] [place] [address] Dr. Reji Thomas Urea nitrogen/Creatinine [Mass ratio] 18.2 mg/mg Normal [facility] Comment on above: Performed By: #### B MP #### [facility] [address] [place] [address] Dr. Reji Thomas PROTIMEon 06-04-2022 INR Coag (PPP) [Relative time] 2.51 {INR} Normal [facility] Comment on above: Performed By: #### B GERONTOLOGY AIDE, CMP, TSH, LIPID #### [facility] [address] [place] [address] Dr. Reji Thomas INR GUIDELINES SEE BELOW Normal [facility] Comment on above: Result Comment: SHY RED INR: 2.0 - 3.0 CONDITIONS NOT LISTED BELOW 2.5 - 3.5 FOR PROSTHETIC HEART VALVE REPLACEMENT 2.5 - 3.5 RECURRENT THROMBOSIS Performed By: #### B GERONTOLOGY AIDE, CMP, TSH, LIPID #### [facility] [address] [place] [address] Dr. Reji Thomas PT Coag (PPP) [Time] 25.5 s Critically high 9.0-11.6 [facility] Comment on above: Performed By: #### B GERONTOLOGY AIDE, CMP, TSH, LIPID #### [facility] [address] [place] [address] Dr. Reji Thomas BNPon 05-15-2022 Natriuretic peptide B (Bld) [Mass/Vol] 3661.0 pg/mL Critically high <=1,800.0 [facility] Comment on above: Performed By: #### B GERONTOLOGY AIDE, CMP, TSH, LIPID #### [facility] [address] [place] [address] Dr. Reji Thomas CBC AUTO DIFFon 05-15-2022 BASO # 0.1 103/ul Normal 0.0-0.1 [facility] Comment on above: Performed By: #### B MP #### [facility] [address] [address] [address] Reji Thomas Basophils/100 WBC (Bld) 1.1 % Normal 0.2-2.0 [facility] Comment on above: Performed By: #### B MP #### [facility] [address] [place] [address] Dr. Reji Thomas EO # 0.5 103/ul Normal 0.0-0.7 [facility] Comment on above: Performed By: #### B MP #### [facility] [address] [place] [address] Dr. Reji Thomas Eosinophils/100 WBC (Bld) 6.5 % Normal 0.9-7.0 [facility] Comment on above: Performed By: #### B MP #### [facility] [address] [place] [address] Dr. Reji Thomas Erythrocyte distribution width (RBC) [Ratio] 16.1 % Critically high 11.0-15.0 [facility] Comment on above: Performed By: #### B MP #### [facility] [address] [place] [address] Dr. Reji Thomas Hematocrit (Bld) [Volume fraction] 35.0 % Critically low 36.0-48.0 [facility] Comment on above: Performed By: #### B MP #### [facility] [address] [place] [address] Dr. Reji Thomas Hemoglobin (Bld) [Mass/Vol] 11.1 g/dL Critically low 12.0-16.0 [facility] Comment on above: Performed By: #### B MP #### [facility] [address] [place] [address] Dr. Reji Thomas IG # 0.02 10e3/ul Normal 0.00-0.03 [facility] Comment on above: Performed By: #### B MP #### [facility] [address] [place] [address] Dr. Reji Thomas IG % 0.3 % Normal 0.0-0.5 [facility] Comment on above: Performed By: #### B MP #### [facility] [address] [place] [address] Dr. Reji Thomas LYMPH # 1.6 103/ul Normal 1.2-3.8 [facility] Comment on above: Performed By: #### B MP #### [facility] [address] [place] [address] Dr. Reji Thomas Lymphocytes/100 WBC (Bld) 22.4 % Normal 20.5-60.0 [facility] Comment on above: Performed By: #### B MP #### [facility] [address] [place] [address] Dr. Reji Thomas MANUAL DIFF REQ NO Normal [facility] Comment on above: Performed By: #### B MP #### [facility] [address] [place] [address] Dr. Reji Thomas MCH (RBC) [Entitic mass] 26.4 pg Critically low 26.7-34.0 [facility] Comment on above: Performed By: #### B MP #### [facility] [address] [place] [address] Dr. Reji Thomas MCHC (RBC) [Mass/Vol] 31.7 g/dL Normal 29.9-35.2 [facility] Comment on above: Performed By: #### B MP #### [facility] [address] [place] [address] Dr. Reji Thomas MCV (RBC) [Entitic vol] 83.1 fL Normal 81.0-99.0 [facility] Comment on above: Performed By: #### B MP #### [facility] [address] [place] [address] Dr. Reji Thomas MONO # 0.9 103/ul Critically high 0.3-0.[address] [facility] Comment on above: Performed By: #### B MP #### [facility] [address] [place] [address] Dr. Reji Thomas Monocytes/100 WBC (Bld) 12.1 % Critically high 1.7-12.0 [facility] Comment on above: Performed By: #### B MP #### [facility] [address] [place] [address] Dr. Reji Thomas NEUT # 4.1 103/ul Normal 1.4-6.5 [facility] Comment on above: Performed By: #### B MP #### [facility] [address] [place] [address] Dr. Reji Thomas Neutrophils/100 WBC (Bld) 57.6 % Normal 43.0-75.0 [facility] Comment on above: Performed By: #### B MP #### [facility] [address] [place] [address] Dr. Reji Thomas Platelet mean volume (Bld) [Entitic vol] 8.8 fL Critically low 9.5-13.5 [facility] Comment on above: Performed By: #### B MP #### [facility] [address] [place] [address] Dr. Reji Thomas PLT 253 103/ul Normal 150-450 [facility] Comment on above: Performed By: #### B MP #### [facility] [address] [place] [address] Dr. Reji Thomas RBC 4.21 106/ul Normal 4.20-5.40 [facility] Comment on above: Performed By: #### B MP #### [facility] [address] [place] [address] Dr. Reji Thomas WBC 7.1 103/ul Normal 4.0-11.0 [facility] Comment on above: Performed By: #### B MP #### [facility] [address] [place] [address] Dr. Reji Thomas PROF CHEM 8 (BAS METB)on Anion gap [Moles/Vol] 10.5 mmol/L Normal [facility] Comment on above: Performed By: #### B GERONTOLOGY AIDE, CMP, TSH, LIPID #### [facility] [address] [address] [address] Reji Thomas Calcium [Mass/Vol] 8.9 mg/dL Normal 8.5-10.1 [facility] Comment on above: Performed By: #### B GERONTOLOGY AIDE, CMP, TSH, LIPID #### [facility] [address] [address] [address] Reji Thomas Chloride [Moles/Vol] 104 mmol/L Normal 98-107 [facility] Comment on above: Performed By: #### B GERONTOLOGY AIDE, CMP, TSH, LIPID #### [facility] [address] [address] [address] Reji Thomas CO2 [Moles/Vol] 29.5 mmol/L Normal 21.0-32.0 [facility] Comment on above: Performed By: #### B GERONTOLOGY AIDE, CMP, TSH, LIPID #### [facility] [address] [place] [address] Dr. Reji Thomas Creatinine [Mass/Vol] 1.73 mg/dL Critically high 0.55-1.02 [facility] Comment on above: Performed By: #### B GERONTOLOGY AIDE, CMP, TSH, LIPID #### [facility] [address] [place] [address] Dr. Reji Thomas EGFR-AF MONTENEGRIN 34 mL/min/1.73m2 Critically low >=60 [facility] Comment on above: Performed By: #### B GERONTOLOGY AIDE, CMP, TSH, LIPID #### [facility] [address] [place] [address] Dr. Reji Thomas EGFR-NON AF MONTENEGRIN 28 mL/min/1.73m2 Critically low >=60 [facility] Comment on above: Performed By: #### B GERONTOLOGY AIDE, CMP, TSH, LIPID #### [facility] [address] [address] [address] Reji Thomas Glucose [Mass/Vol] 79 mg/dL Normal 74-106 [facility] Comment on above: Performed By: #### B GERONTOLOGY AIDE, CMP, TSH, LIPID #### [facility] [address] [place] [address] Dr. Reji Thomas Potassium [Moles/Vol] 4.0 mmol/L Normal 3.5-5.1 [facility] Comment on above: Performed By: #### B GERONTOLOGY AIDE, CMP, TSH, LIPID #### [facility] [address] [place] [address] Dr. Reji Thomas Sodium [Moles/Vol] 140 mmol/L Normal 136-145 [facility] Comment on above: Performed By: #### B GERONTOLOGY AIDE, CMP, TSH, LIPID #### [facility] [address] [place] [address] Dr. Reji Thomas Urea nitrogen [Mass/Vol] 22.0 mg/dL Critically high 7.0-18.0 [facility] Comment on above: Performed By: #### B GERONTOLOGY AIDE, CMP, TSH, LIPID #### [facility] [address] [place] [address] Dr. Reji Thomas Urea nitrogen/Creatinine [Mass ratio] 12.7 mg/mg Normal [facility] Comment on above: Performed By: #### B GERONTOLOGY AIDE, CMP, TSH, LIPID #### [facility] [address] [place] [address] Dr. Reji Thomas PROTIMEon 05-15-2022 INR Coag (PPP) [Relative time] 2.53 {INR} Normal [facility] Comment on above: Performed By: #### B GERONTOLOGY AIDE, CMP, TSH, LIPID #### [facility] [address] [place] [address] Dr. Reji Thomas INR GUIDELINES SEE BELOW Normal [facility] Comment on above: Result Comment: SHY RED INR: 2.0 - 3.0 CONDITIONS NOT LISTED BELOW 2.5 - 3.5 FOR PROSTHETIC HEART VALVE REPLACEMENT 2.5 - 3.5 RECURRENT THROMBOSIS Performed By: #### B GERONTOLOGY AIDE, CMP, TSH, LIPID #### [facility] [address] [place] [address] Dr. Reji Thomas PT Coag (PPP) [Time] 25.7 s Critically high 9.0-11.6 [facility] Comment on above: Performed By: #### B GERONTOLOGY AIDE, CMP, TSH, LIPID #### [facility] [address] [address] [address] Reji Thomas ECHOCARDIO M/2D COMPLETEon 0 05-04-2022 ECHOCARDIO M/2D COMPLETE Patient: INEZ JUAREZ Exam Date: 05/04/2022 : 1940 Gender:F Ordering : DR JENN PRADO M.D. Admission #: [id number] Family : Order #: [id number] CLICK HERE TO VIEW EXAM ECHOCARDIOGRAM REPORT [...] Area(A4C): 27.20 cm2 Left Atrium Systolic Volume(A2C): 115679 mm3 Left Atrium Systolic Volume(A4C): 29131 mm3 Mitral Valve MV E to A Ratio: 2.60 Deceleration [place]: 06219 mm/s2 Mitral Valve A-Wave Peak Velocity: 58.60 [...] Prado M.D. on 05/07/2022 at 11:39 Normal [facility] EVAN by IFAon 04-19-2022 Antinuclear Antibodies, IFA Positive Abnormal [facility] Comment on above: Result Comment: Nega tive <1:80 Borderline 1:80 Positive >1:80 Performed By: #### B GERONTOLOGY AIDE, CMP, TSH, LIPID #### [facility] [address] [address] [address] Reji Thomas Centriole Pattern Normal [facility] Comment on above: Performed By: #### B GERONTOLOGY AIDE, CMP, TSH, LIPID #### [facility] [id number] Reji Thomas Centromere Pattern Normal [facility] Comment on above: Performed By: #### B GERONTOLOGY AIDE, CMP, TSH, LIPID #### [facility] [address] [place], [place] [address] Dr. Reji Thomas Homogeneous Pattern 1:320 Critically high [facility] Comment on above: Result Comment: ICAP nomenclature: AC-1 Performed By: #### B GERONTOLOGY AIDE, CMP, TSH, LIPID #### [facility] [address] [place], [place] [address] Dr. Reji Thomas Midbody Pattern Normal [facility] Comment on above: Performed By: #### B GERONTOLOGY AIDE, CMP, TSH, LIPID #### [facility] [address] [place], [place] [address] Dr. Reji Thomas Note: Comment Normal [facility] Comment on above: Result Comment: [...] titers Nucleosomes, Histones Drug-induced SLE Speckled Sm, SMALL PARTS ASSEMBLER, SCL-70, SLE,MCTD,PSS (diffuse form), SS-A/SS-B Sjogrens Nucleolar SCL-70, PM-1/SCL High titers Scleroderma, PM/DM Centromere Centromere PSS (limited form) w/Crest syndrome variable Nuclear Dot Sp100,l40-motenm Primary Biliary Cirrhosis Nuclear GP210, Primary Biliary Cirrhosis Membrane eleonora A,B,C Performed By: #### B GERONTOLOGY AIDE, CMP, TSH, LIPID #### [facility] [address] [place] [address] Dr. Reji Thomas Nuclear Dot Pattern Normal [facility] Comment on above: Performed By: #### B GERONTOLOGY AIDE, CMP, TSH, LIPID #### [facility] [address] [place] [address] Dr. Reji Thomas Nuclear Membrane Pattern Normal [facility] Comment on above: Performed By: #### B GERONTOLOGY AIDE, CMP, TSH, LIPID #### [facility] [address] [place] [address] Dr. Reji Thomas Nucleolar Pattern Normal [facility] Comment on above: Performed By: #### B GERONTOLOGY AIDE, CMP, TSH, LIPID #### [facility] [address] [address] [address] Reji Thomas PCNA Pattern Normal [facility] Comment on above: Performed By: #### B GERONTOLOGY AIDE, CMP, TSH, LIPID #### [facility] [address] [address] [address] Reji Thoams Speckled Pattern Normal [facility] Comment on above: Performed By: #### B GERONTOLOGY AIDE, CMP, TSH, LIPID #### [facility] [address] [address] [address] Reji Thomas Spindle Apparatus Pattern Normal [facility] Comment on above: Performed By: #### B GERONTOLOGY AIDE, CMP, TSH, LIPID #### [facility] [address] [address] [address] Reji Thomas ANCA (ANTINEUTROPHIL CYTOPLA MSMIC ABon 04-18-2022 Atypical pANCA <1:20 Normal Neg:<1:20 [facility] Comment on above: Result Comment: Seru m is slightly hemolyzed The atypical pANCA pattern has been observed in a significant percentage of patients with ulcerative colitis, primary sclerosing cholangitis and autoimmune hepatitis. Performed By: #### B MP #### [facility] [address] [address] [address] Reji Thomas Cytoplasmic (C-ANCA) <1:20 Normal Neg:<1:20 [facility] Comment on above: Result Comment: Seru m is slightly hemolyzed Performed By: #### B MP #### [facility] [address] [address] [address] Reji Thomas Perinuclear (P-ANCA) <1:20 Normal Neg:<1:20 [facility] Comment on above: Result Comment: Seru m is slightly hemolyzed The presence of positive fluorescence exhibiting P-ANCA or C-ANCA patterns alone is not specific for the diagnosis of Arlene's Granulomatosis (WG) or microscopic polyangiitis. Decisions about treatment should not be based solely on ANCA IFA results. The [employer] Consensus recommends follow up testing of positive sera with both KY-3 and MPO-ANCA enzyme immunoassays. As many as 5% serum samples are positive only by EIA. Ref. AM J Clin Pathol 1999;111:507-513. Performed By: #### B MP #### [facility] [address] [place] [address] Dr. Reji Thomas ANTISCLERODERMA ABon 022 Antiscleroderma-70 Antibodies 0.3 AI Normal 0.0-0.9 [facility] Comment on above: Performed By: #### B GERONTOLOGY AIDE, CMP, TSH, LIPID #### [facility] [address] [place] [address] Dr. Reji Thomas T3 UPTAKEon 04-18-2022 Free Thyroxine Index 1.8 Normal 1.2-4.9 [facility] Comment on above: Performed By: #### B GERONTOLOGY AIDE, CMP, TSH, LIPID #### [facility] [address] [place] [address] Dr. Reji Thomas T3 Uptake 23 % Critically low 24-39 [facility] Comment on above: Performed By: #### B GERONTOLOGY AIDE, CMP, TSH, LIPID #### [facility] [address] [place] [address] Dr. Reji Thomas T4 LABCORPon 04-18-2022 T4 [Mass/Vol] 7.8 ug/dL Normal 4.5-12.0 [facility] Comment on above: Performed By: #### B GERONTOLOGY AIDE, CMP, TSH, LIPID #### [facility] [address] [place] [address] Dr. Reji Thomas BNPon 04-16-2022 Natriuretic peptide B (Bld) [Mass/Vol] 2870.0 pg/mL Critically high <=1,800.0 [facility] Comment on above: Result Comment: repe ated Performed By: #### B GERONTOLOGY AIDE, CMP, TSH, LIPID #### [facility] [address] [place] [address] Dr. Reji Thomas CBC AUTO DIFFon 04-16-2022 BASO # 0.1 103/ul Normal 0.0-0.1 [facility] Comment on above: Performed By: #### B GERONTOLOGY AIDE, CMP, TSH, LIPID #### [facility] [address] [place] [address] Dr. Reji Thomas Basophils/100 WBC (Bld) 0.9 % Normal 0.2-2.0 [facility] Comment on above: Performed By: #### B GERONTOLOGY AIDE, CMP, TSH, LIPID #### [facility] [address] [place] [address] Dr. Reji Thomas EO # 0.3 103/ul Normal 0.0-0.7 [facility] Comment on above: Performed By: #### B GERONTOLOGY AIDE, CMP, TSH, LIPID #### [facility] [address] [place] [address] Dr. Reji Thomas Eosinophils/100 WBC (Bld) 3.9 % Normal 0.9-7.0 [facility] Comment on above: Performed By: #### B GERONTOLOGY AIDE, CMP, TSH, LIPID #### [facility] [address] [place] [address] Dr. Reji Thomas Erythrocyte distribution width (RBC) [Ratio] 15.9 % Critically high 11.0-15.0 [facility] Comment on above: Performed By: #### B GERONTOLOGY AIDE, CMP, TSH, LIPID #### [facility] [address] [place] [address] Dr. Reji Thomas Hematocrit (Bld) [Volume fraction] 38.1 % Normal 36.0-48.0 [facility] Comment on above: Performed By: #### B GERONTOLOGY AIDE, CMP, TSH, LIPID #### [facility] [address] [place] [address] Dr. Reji Thomas Hemoglobin (Bld) [Mass/Vol] 12.1 g/dL Normal 12.0-16.0 [facility] Comment on above: Performed By: #### B GERONTOLOGY AIDE, CMP, TSH, LIPID #### [facility] [address] [place] [address] Dr. Reji Thomas IG # 0.02 10e3/ul Normal 0.00-0.03 [facility] Comment on above: Performed By: #### B GERONTOLOGY AIDE, CMP, TSH, LIPID #### [facility] [address] [place] [address] Dr. Reji Thomas IG % 0.3 % Normal 0.0-0.5 [facility] Comment on above: Performed By: #### B GERONTOLOGY AIDE, CMP, TSH, LIPID #### [facility] [address] [place] [address] Dr. Reji Thomas LYMPH # 1.6 103/ul Normal 1.2-3.8 [facility] Comment on above: Performed By: #### B GERONTOLOGY AIDE, CMP, TSH, LIPID #### [facility] [address] [place] [address] Dr. Reji Thomas Lymphocytes/100 WBC (Bld) 22.6 % Normal 20.5-60.0 [facility] Comment on above: Performed By: #### B GERONTOLOGY AIDE, CMP, TSH, LIPID #### [facility] [address] [place] [address] Dr. Reji Thomas MANUAL DIFF REQ NO Normal [facility] Comment on above: Performed By: #### B GERONTOLOGY AIDE, CMP, TSH, LIPID #### [facility] [address] [place] [address] Dr. Reji Thomas MCH (RBC) [Entitic mass] 26.5 pg Critically low 26.7-34.0 [facility] Comment on above: Performed By: #### B GERONTOLOGY AIDE, CMP, TSH, LIPID #### [facility] [address] [place] [address] Dr. Reji Thomas MCHC (RBC) [Mass/Vol] 31.8 g/dL Normal 29.9-35.2 [facility] Comment on above: Performed By: #### B GERONTOLOGY AIDE, CMP, TSH, LIPID #### [facility] [address] [place] [address] Dr. Reji Thomas MCV (RBC) [Entitic vol] 83.4 fL Normal 81.0-99.0 [facility] Comment on above: Performed By: #### B GERONTOLOGY AIDE, CMP, TSH, LIPID #### [facility] [address] [place] [address] Dr. Reji Thomas MONO # 0.6 103/ul Normal 0.3-0.8 [facility] Comment on above: Performed By: #### B GERONTOLOGY AIDE, CMP, TSH, LIPID #### [facility] [address] [place], [place] [id number] Dr. Reji Thomas Monocytes/100 WBC (Bld) 9.3 % Normal 1.7-12.0 [facility] Comment on above: Performed By: #### B GERONTOLOGY AIDE, CMP, TSH, LIPID #### [facility] [address] [place] [address] Dr. Reji Thomas NEUT # 4.3 103/ul Normal 1.4-6.5 [facility] Comment on above: Performed By: #### B GERONTOLOGY AIDE, CMP, TSH, LIPID #### [facility] [address] [place] [address] Dr. Reji Thomas Neutrophils/100 WBC (Bld) 63.0 % Normal 43.0-75.0 [facility] Comment on above: Performed By: #### B GERONTOLOGY AIDE, CMP, TSH, LIPID #### [facility] [address] [place] [address] Dr. Reji Thomas Platelet mean volume (Bld) [Entitic vol] 9.2 fL Critically low 9.5-13.5 [facility] Comment on above: Performed By: #### B GERONTOLOGY AIDE, CMP, TSH, LIPID #### [facility] [address] [place] [address] Dr. Reji Thomas PLT 211 103/ul Normal 150-450 [facility] Comment on above: Performed By: #### B GERONTOLOGY AIDE, CMP, TSH, LIPID #### [facility] [address] [place] [address] Dr. Reji Thomas RBC 4.57 106/ul Normal 4.20-5.40 [facility] Comment on above: Performed By: #### B GERONTOLOGY AIDE, CMP, TSH, LIPID #### [facility] [address] [place] [address] Dr. Reji Thomas WBC 6.9 103/ul Normal 4.0-11.0 [facility] Comment on above: Performed By: #### B GERONTOLOGY AIDE, CMP, TSH, LIPID #### [facility] [address] [place] [address] Dr. Reji Thomas GLYCOHEMOGLOBIN A1Con 2021 ADA RECOMMENDATION SEE BELOW Normal [facility] Comment on above: Result Comment: ADA RECOMMENDED LIMIT 4.0 - 6.0 ADA THERAPEUTIC TARGET < 7.0 ACTION SUGGESTED > 7.0 Performed By: #### B GERONTOLOGY AIDE, CMP, TSH, LIPID #### [facility] [address] [address] [address] Reji Thomas Glucose [Mass/Vol] 100 mg/dL Normal [facility] Comment on above: Performed By: #### B GERONTOLOGY AIDE, CMP, TSH, LIPID #### [facility] [address] [address] [address] Reji Thomas HbA1c (Bld) [Mass fraction] 5.1 % Normal 4.5-6.2 [facility] Comment on above: Performed By: #### B GERONTOLOGY AIDE, CMP, TSH, LIPID #### [facility] [address] [place] [address] Dr. Reji Thomas IRONon 04-16-2022 Iron [Mass/Vol] 42.0 ug/dL Critically low 50.0-170.0 [facility] Comment on above: Performed By: #### B GERONTOLOGY AIDE, CMP, TSH, LIPID #### [facility] [address] [place] [address] Dr. Reji Thomas LIPID PROFILEon 04-16-2022 CHOL-HDL RATIO NORM SEE BELOW Normal [facility] Comment on above: Result Comment: 3.3 - 4.4 LOW RISK 4.4 - 7.1 AVERAGE RISK 7.1 - 11.0 MODERATE RISK >11.0 HIGH RISK Performed By: #### B GERONTOLOGY AIDE, CMP, TSH, LIPID #### [facility] [address] [address] [address] Reji Thomas Cholesterol [Mass/Vol] 176 mg/dL Normal <=200 [facility] Comment on above: Performed By: #### B GERONTOLOGY AIDE, CMP, TSH, LIPID #### [facility] [address] [address] [address] Reji Thomas Cholesterol in HDL [Mass/Vol] 52 mg/dL Normal 40-60 [facility] Comment on above: Performed By: #### B GERONTOLOGY AIDE, CMP, TSH, LIPID #### [facility] [address] [place] [address] Dr. Reji Thomas Cholesterol in LDL [Mass/Vol] 102.8 mg/dL Normal [facility] Comment on above: Performed By: #### B GERONTOLOGY AIDE, CMP, TSH, LIPID #### [facility] [address] [place] [address] Dr. Reji Thomas Cholesterol.total/Ch olesterol in HDL [Mass ratio] 3.4 {ratio} Normal [facility] Comment on above: Performed By: #### B GERONTOLOGY AIDE, CMP, TSH, LIPID #### [facility] [address] [place] [address] Dr. Reji Thomas HDL NORMAL > or = 60 mg/dl - LOW CARDIOVASCULAR RISK <40 mg/dl - HIGH CARDIOVASCULAR RISK Normal [facility] Comment on above: Performed By: #### B GERONTOLOGY AIDE, CMP, TSH, LIPID #### [facility] [address] [place] [address] Dr. Reji Thomas LDL CALC NORMAL SEE BELOW Normal [facility] Comment on above: Result Comment: <100 mg/dl OPTIMAL 100 - 129 mg/dl NEAR OR ABOVE OPTIMAL 130 - 159 mg/dl BORDERLINE HIGH 160 - 189 mg/dl HIGH >190 mg/dl VERY HIGH Performed By: #### B GERONTOLOGY AIDE, CMP, TSH, LIPID #### [facility] [address] [address] [address] Reji Thomas Triglyceride [Mass/Vol] 106 mg/dL Normal <=150 [facility] Comment on above: Performed By: #### B GERONTOLOGY AIDE, CMP, TSH, LIPID #### [facility] [address] [place] [address] Dr. Reji Thomas VLDL CALC 21.2 mg/dL Normal [facility] Comment on above: Performed By: #### B GERONTOLOGY AIDE, CMP, TSH, LIPID #### [facility] [address] [place] [address] Dr. Reji Thomas PROF 14(COMP METB)on 022 Albumin [Mass/Vol] 3.6 g/dL Normal 3.4-5.0 [facility] Comment on above: Performed By: #### B GERONTOLOGY AIDE, CMP, TSH, LIPID #### [facility] [address] [address] [address] Reji Thomas Albumin/Globulin [Mass ratio] 0.9 {ratio} Normal [facility] Comment on above: Performed By: #### B GERONTOLOGY AIDE, CMP, TSH, LIPID #### [facility] [address] [place] [address] Dr. Reji Thomas ALP [Catalytic activity/Vol] 62 U/L Normal 46-116 [facility] Comment on above: Performed By: #### B GERONTOLOGY AIDE, CMP, TSH, LIPID #### [facility] [address] [place] [address] Dr. Reji Thomas ALT [Catalytic activity/Vol] 14 U/L Normal 14-59 [facility] Comment on above: Performed By: #### B GERONTOLOGY AIDE, CMP, TSH, LIPID #### [facility] [address] [place] [address] Dr. Reji Thomas Anion gap [Moles/Vol] 14.5 mmol/L Normal [facility] Comment on above: Performed By: #### B GERONTOLOGY AIDE, CMP, TSH, LIPID #### [facility] [address] [place] [address] Dr. Reji Thomas AST [Catalytic activity/Vol] 17 U/L Normal 15-37 [facility] Comment on above: Performed By: #### B GERONTOLOGY AIDE, CMP, TSH, LIPID #### [facility] [address] [place] [address] Dr. Reji Thomas Bilirubin [Mass/Vol] 0.6 mg/dL Normal 0.2-1.0 [facility] Comment on above: Performed By: #### B GERONTOLOGY AIDE, CMP, TSH, LIPID #### [facility] [address] [place] [address] Dr. Reji Thomas Calcium [Mass/Vol] 8.8 mg/dL Normal 8.5-10.1 [facility] Comment on above: Performed By: #### B GERONTOLOGY AIDE, CMP, TSH, LIPID #### [facility] [address] [place] [address] Dr. Reji Thomas Chloride [Moles/Vol] 102 mmol/L Normal 98-107 [facility] Comment on above: Performed By: #### B GERONTOLOGY AIDE, CMP, TSH, LIPID #### [facility] [address] [place] [address] Dr. Reji Thomas CO2 [Moles/Vol] 26.3 mmol/L Normal 21.0-32.0 [facility] Comment on above: Performed By: #### B GERONTOLOGY AIDE, CMP, TSH, LIPID #### [facility] [address] [place] [address] Dr. Reji Thomas Creatinine [Mass/Vol] 1.76 mg/dL Critically high 0.55-1.02 [facility] Comment on above: Performed By: #### B GERONTOLOGY AIDE, CMP, TSH, LIPID #### [facility] [address] [place] [address] Dr. Reji Thomas EGFR-AF MONTENEGRIN 33 mL/min/1.73m2 Critically low >=60 [facility] Comment on above: Performed By: #### B GERONTOLOGY AIDE, CMP, TSH, LIPID #### [facility] [address] [place] [address] Dr. Reji Thomas EGFR-NON AF MONTENEGRIN 28 mL/min/1.73m2 Critically low >=60 [facility] Comment on above: Performed By: #### B GERONTOLOGY AIDE, CMP, TSH, LIPID #### [facility] [address] [place] [address] Dr. Reji Thomas Globulin (S) [Mass/Vol] 4.2 g/dL Normal [facility] Comment on above: Performed By: #### B GERONTOLOGY AIDE, CMP, TSH, LIPID #### [facility] [address] [place] [address] Dr. Reji Thomas Glucose [Mass/Vol] 81 mg/dL Normal 74-106 [facility] Comment on above: Performed By: #### B GERONTOLOGY AIDE, CMP, TSH, LIPID #### [facility] [address] [place] [address] Dr. Reji Thomas Potassium [Moles/Vol] 3.8 mmol/L Normal 3.5-5.1 [facility] Comment on above: Performed By: #### B GERONTOLOGY AIDE, CMP, TSH, LIPID #### [facility] [address] [place] [address] Dr. Reji Thomas Protein [Mass/Vol] 7.8 g/dL Normal 6.4-8.2 [facility] Comment on above: Performed By: #### B GERONTOLOGY AIDE, CMP, TSH, LIPID #### [facility] [address] [place] [address] Dr. Reji Thomas Sodium [Moles/Vol] 139 mmol/L Normal 136-145 [facility] Comment on above: Performed By: #### B GERONTOLOGY AIDE, CMP, TSH, LIPID #### [facility] [address] [place] [address] Dr. Reji Thomas Urea nitrogen [Mass/Vol] 27.0 mg/dL Critically high 7.0-18.0 [facility] Comment on above: Performed By: #### B GERONTOLOGY AIDE, CMP, TSH, LIPID #### [facility] [address] [place] [address] Dr. Reji Thomas Urea nitrogen/Creatinine [Mass ratio] 15.3 mg/mg Normal [facility] Comment on above: Performed By: #### B GERONTOLOGY AIDE, CMP, TSH, LIPID #### [facility] [address] [place] [address] Dr. Reji Thomas PROTIMEon 04-16-2022 INR Coag (PPP) [Relative time] 1.92 {INR} Normal [facility] Comment on above: Performed By: #### B GERONTOLOGY AIDE, CMP, TSH, LIPID #### [facility] [address] [place] [address] Dr. Reji Thomas INR GUIDELINES SEE BELOW Normal [facility] Comment on above: Result Comment: SHY RED INR: 2.0 - 3.0 CONDITIONS NOT LISTED BELOW 2.5 - 3.5 FOR PROSTHETIC HEART VALVE REPLACEMENT 2.5 - 3.5 RECURRENT THROMBOSIS Performed By: #### B GERONTOLOGY AIDE, CMP, TSH, LIPID #### [facility] [address] [place] [address] Dr. Reji Thomas PT Coag (PPP) [Time] 19.9 s Critically high 9.0-11.6 [facility] Comment on above: Performed By: #### B GERONTOLOGY AIDE, CMP, TSH, LIPID #### [facility] [address] [address] [address] Reji [facility] SED [facility] 37 mm/hr Critically high <=[address] [facility] Comment on above: Performed By: #### B GERONTOLOGY AIDE, CMP, TSH, LIPID #### [facility] [address] [place] [address] Dr. Reji Thomas TSHon 04-16-2022 TSH 1.941 uIU/mL Normal 0.358-3.740 [facility] Comment on above: Performed By: #### B GERONTOLOGY AIDE, CMP, TSH, LIPID #### [facility] [address] [place] [address] Dr. Reji Thomas TSH RANGE SEE BELOW Normal [facility] Comment on above: Result Comment: <0.3 4 UIU/ml HYPERTHYROID 0.34-5.60 UIU/ml EUTHYROID >5.60 UIU/ml HYPOTHYROID Performed By: #### B GERONTOLOGY AIDE, CMP, TSH, LIPID #### [facility] [address] [place] [address] Dr. Reji Thomas VITAMIN D 25 OHon 04-16-2022 VIT D 25-OH 56.6 ng/mL Normal [facility] Comment on above: Performed By: #### B GERONTOLOGY AIDE, CMP, TSH, LIPID #### [facility] [address] [place] [address] Dr. Reji Thomas VIT D RANGES SEE BELOW Normal [facility] Comment on above: Result Comment: <20 ng/mL Vit D deficient 20 - <30 ng/mL Vit D insufficient 30 - 100 ng/mL Vit D sufficient >100 ng/mL Potential Toxicity Performed By: #### B GERONTOLOGY AIDE, CMP, TSH, LIPID #### [facility] [address] [place] [address] Dr. Reji Thomas Cardiovascular Lab Reporton 11-02-2021 Cardiovascular Lab Report [facility] Patient Name: Inez Juarez MR #: [id number] [facility] Physician: Jenn Prado M.D. Department of Service Date: 11/01/2021 Medicine Birthdate: 1940 Division of Room #: Cardiology Adult Cardiovascular Services [facility] [address] [place] [address] Cardiovascular Laboratory Report INDICATION: The patient is [...] She signed consent. 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 The right neck area was prepped and draped in usual fashion. Micropuncture technique and ultrasound guidance were used for access in the right internal jugular vein. A 6-Martiniquais x 11 cm sheath was placed. A 6-Martiniquais Hernández catheter was used for heart catheterization [...] Prado M.D. Date Trans: 11/01/2021 11:22 P/alondra [id number] cc: Bruce Rizvi M.D. [address] [facility] [address] Normal [facility] Cardiovascular Lab Reporton 06-02-2021 Cardiovascular Lab Report [facility] Patient Name: Inez Juarez MR #: [id number] [facility] Physician: Jenn Prado M.D. Department of Service Date: 06/02/2021 Medicine Birthdate: 1940 Division of Room #: CC Cardiology Adult Cardiovascular Services [facility] [address] [facility]. [place] [address] Cardiovascular Laboratory Report INDICATION: The patient is [...] the informed consent. 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 The right neck area was prepped and draped in usual fashion. Using micropuncture technique and ultrasound guidance, the right internal jugular vein was accessed and a 6-Martiniquais x 11 cm sheath was placed. A 6-Martiniquais Hernández catheter was used for heart catheterization [...] Prado M.D. Date Trans: 06/02/2021 02:42 P/alondra [id number] cc: Bruce Rizvi M.D. [address] [facility] [address] [facility] Encounters Encounter Date Encounter Type Care Provider Facility Start: 07-03-2024 End: 07-03-2024 ambulatory [facility] Start: 12-13-2023 End: 12-13-2023 ambulatory [facility] Start: 10-30-2023 End: 10-30-2023 ambulatory [facility] Start: 10-22-2023 End: 10-22-2023 ambulatory ANTONY LUIS [facility] Start: 03-22-2023 End: 03-23-[address] BRUCE RIZVI . Facility:[facility] Start: 02-22-2023 End: 02-23-[address] BRUCE RIZVI . Facility:[facility] Start: 01-03-2023 End: 01-04-[address] BRUCE RIZVI . Facility:[facility] Start: 11-23-2022 End: 11-24-[address] BURCE RIZVI . Facility:[facility] Start: 10-10-2022 End: 10-11-2022 [...] Start: 11-01-2021 End: 11-02-2021 ambulatory PROVIDER UNKNOWN Facility:[facility] Start: 06-02-2021 End: 06-03-2021 ambulatory PROVIDER UNKNOWN Facility:[facility] Payers Date Payer Category Payer Medicare [id number] 1961 Medicare [id number] 1961 Medicare [id number] 1961 Self-pay [id number] 1940 Unknown [id number] 2.16.8 40.1.774545.3.579.2.647 1940 Unknown [id number] 2.16.8 40.1.596882.3.579.2.647 1940 Unknown [id number] 2.16.84 0.1.591788.3.579.2.593 1938 Unknown [id number] 2.16.84 0.1.906660.3.579.2.593 1938 Unknown [id number] 2.16.84 0.1.691804.3.579.2.593 1938 Unknown [id number] 2.16.84 0.1.794781.3.579.2.593 1938 Unknown [id number] 2.16.84 0.1.444033.3.579.2.593 1938 Unknown [id number] 2.16.84 0.1.810308.3.579.2.593 1938 Unknown [id number] 2.16.84 0.1.709611.3.579.2.593 1938 Unknown [id number] 2.16.84 0.1.134181.3.579.2.593 1938 Unknown [id number] 2.16.84 0.1.433320.3.579.2.593 1938 Unknown [id number] 2.16.84 0.1.260274.3.579.2.593 1938 Unknown [id number] 2.16.84 0.1.296660.3.579.2.593 1938 Unknown [id number] 2.16.84 0.1.911385.3.579.2.593 1938 Unknown [id number] 2.16.84 0.1.213377.3.579.2.593 1938 Unknown [id number] 2.16.84 0.1.423930.3.579.2.593 1938 Unknown [id number] 2.16.84 0.1.356451.3.579.2.593 1938 Unknown [id number] 2.16.84 0.1.795477.3.579.2.593 1938 Unknown [id number] 2.16.84 0.1.364674.3.579.2.593 1938 Unknown [id number] 2.16.84 0.1.877904.3.579.2.593 1940 Unknown [id number] 2.16.84 0.1.105524.3.579.2.593 Private Health Insurance MEB [id number] Progress note 07-03-2024 Note Date & Type Note Facility 07-03-2024 Note [facility] Petrona Juarez is a 84 y.o. year [...] use: Not Currently HPI Inez is a 84-year-old woman who is seen [...] arm, Patient Position: Sitting) Pulse 50 Ht (more content not included)... [facility] Progress note 12-13-2023 Note Date & Type Note Facility 12-13-2023 Note [facility] Petrona Juarez is a 83 [...] Nose: Nose james (more content not included)... [facility] Progress note 10-30-2023 Note Date & Type Note Facility 10-30-2023 Note [facility] Subjective Inez Juarez is a [...] Murmur heard. Systol (more content not included)... 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 Additional Equipment Requests [facility] Clinical Note 10-15-2023 Note Date & Type Note Facility 10-15-[address] Smith regarding warfarin. Dr Smith requested warfarin to be held for 3 days prior to procedure. [facility] Progress note 09-19-2023 Note Date & Type Note Facility 09-19-2023 Note [facility] Summary Purpose Family History No Family History Records FoundNo Family History Records FoundNo Family History Records FoundNo Family History Records Found Advance Directives No Advanced Directives Records FoundNo Advanced Directives Records FoundNo Advanced Directives Records FoundNo Advanced Directives Records Found Additional Source Comments INFORMATION SOURCE (unrecogn ized section and content) DATE CREATED AUTHOR 11/03/2021 [facility] DATE CREATED AUTHOR AUTHOR'S ORGANIZ ATION 07/05/2022 [facility] DATE CREATED AUTHOR AUTHOR'S ORGANIZ ATION 03/23/2023 [facility] DATE CREATED AUTHOR AUTHOR'S ORGANIZ ATION 07/05/2024 [facility] FOR RECORDS PERTAINING TO PATIENTS [...] BE BASED ON THE PRIMARY CLINICAL RECORDS. [facility]. provides no warranty or guarantee of the accuracy or completeness of information in this document.
[2024-07-14 13:59] LABS: Prothrombin Time 19.8 sec (9.0-11.6)
== END 2024-07-14 12:56 | disposition home or self-care (01) ==
LOC: LAB 12:57
PROVIDERS: PCP Family Medicine; Visit Provider Family Medicine
DX: I48.91 Unspecified atrial fibrillation (principal)
CPT/HCPCS: 36415; 85610

== ENCOUNTER 2024-08-10 15:18 | Outpatient (OUT) | payer MEDICARE, SELFPAY ==
--- OUTSIDE RECORDS SUMMARY | 2024-08-10 15:28 | XMS_ITS | CCD ---
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] Onset: 06-04-2022 Episodic [...] Range Facility Office Visiton 07-03-2024 Follow-up visit [id number] Inez Juarez 1940 F Date Provider Department Center 07/03/2024 JENN AMANDA BARBRA Acuña Family History Problem Relation Age of Onset Hypertension Mother Coronary artery disease Father Hypertension Father Family Status - Relation Status Age at Mother Father Level of Service:38726 [place] OFFICE/OUTPATIENT ESTABLISHED LOW MDM 20 MIN Normal [facility] Office Visiton 12-13-2023 Follow-up visit [id number] Inez Juarez 1940 Provider Department Center 12/13/2023 JENN AMANDA BARBRA Acuña Family History Problem Relation Age of Onset Hypertension Mother Coronary artery disease Father Hypertension Father Family Status - Relation Status Age at Mother Father Level of Service:98009 [place] OFFICE/OUTPATIENT ESTABLISHED MOD MDM 30 MIN Normal [facility] Office Visiton 10-30-2023 Follow-up visit [id number] Inez Juarez 1940 Date Provider Department Center 10/30/2023 JENN AMANDA BARBRA Acuña Family History Problem Relation Age of Onset Hypertension Mother Coronary artery disease Father Hypertension Father Family Status - Relation Status Age at Mother Father Level of Service:83381 [place] OFFICE/OUTPATIENT ESTABLISHED MOD MDM 30 MIN Normal [facility] HPon 10-22-2023 History Of Present Illness [...] a past medical history of Atrial fibrillation ([facility]), CHF (congestive heart failure) ([facility]), Chronic kidney disease, GERD (gastroesophageal reflux disease), Heart valve disease, Hyperlipidemia, Hypertension, and Pulmonary hypertension ([facility]). Surgical History She has a past surgical [...] Results Reviewed Relevant (more content not included)... [facility] NURSNOTEon 10-22-2023 NURSNOTE RN educated pt on d/c instructions. RN encouraged pt to voice any questions or concerns. Pt verbalizes no questions or concerns at this time. Normal [facility] BNPon 03-22-2023 Natriuretic peptide B (Bld) [Mass/Vol] 1423.0 pg/mL Normal <=1,800.0 [facility] Comment on above: Performed By: #### B FAN BALANCER, CMP, TSH, LIPID #### [facility] [address] [place] [address] Dr. Reji Thomas CBC AUTO DIFFon 03-22-2023 BASO # 0.1 103/ul Normal 0.0-0.1 [facility] Comment on above: Performed By: #### B MP #### [facility] [address] [address] [address] Reji Thomas Basophils/100 WBC (Bld) 1.0 % Normal 0.2-2.0 [facility] Comment on above: Performed By: #### B MP #### [facility] [address] [address] [address] Reji Thomas EO # 0.2 103/ul Normal 0.0-0.7 [facility] Comment on above: Performed By: #### B MP #### [facility] [address] [place] [address] Dr. Reji Thomas Eosinophils/100 WBC (Bld) 3.3 % Normal 0.9-7.0 [facility] Comment on above: Performed By: #### B MP #### [facility] [address] [place] [address] Dr. Reji Tohmas Erythrocyte distribution width (RBC) [Ratio] 15.4 % Critically high 11.0-15.0 [facility] Comment on above: Performed By: #### B MP #### [facility] [address] [place] [address] Dr. Reji Thomas Hematocrit (Bld) [Volume fraction] 35.2 % Critically low 36.0-48.0 [facility] Comment on above: Performed By: #### B MP #### [facility] [address] [place] [address] Dr. Reji Thomas Hemoglobin (Bld) [Mass/Vol] 11.4 g/dL Critically low 12.0-16.0 [facility] Comment on above: Performed By: #### B MP #### [facility] [address] [place] [address] Dr. Reji Thomas IG # 0.02 10e3/ul Normal 0.00-0.03 [facility] Comment on above: Performed By: #### B MP #### [facility] [address] [place] [address] Dr. Reji Thomas IG % 0.3 % Normal 0.0-0.5 [facility] Comment on above: Performed By: #### B MP #### [facility] [address] [place] [address] Dr. Reji Thomas LYMPH # 1.4 103/ul Normal 1.2-3.8 [facility] Comment on above: Performed By: #### B MP #### [facility] [address] [place] [address] Dr. Reji Thomas Lymphocytes/100 WBC (Bld) 22.6 % Normal 20.5-60.0 [facility] Comment on above: Performed By: #### B MP #### [facility] [address] [place] [address] Dr. Reji Thomas MANUAL DIFF REQ NO Normal [facility] Comment on above: Performed By: #### B MP #### [facility] [address] [place] [address] Dr. Reji Thomas MCH (RBC) [Entitic mass] 27.0 pg Normal 26.7-34.0 [facility] Comment on above: Performed By: #### B MP #### [facility] [address] [place] [address] Dr. Reji Thomas MCHC (RBC) [Mass/Vol] 32.4 g/dL Normal 29.9-35.2 [facility] Comment on above: Performed By: #### B MP #### [facility] [address] [place] [address] Dr. Reji Thomas MCV (RBC) [Entitic vol] 83.2 fL Normal 81.0-99.0 [facility] Comment on above: Performed By: #### B MP #### [facility] [address] [place] [address] Dr. Reji Thomas MONO # 0.5 103/ul Normal 0.3-0.8 [facility] Comment on above: Performed By: #### B MP #### [facility] [address] [place] [address] Dr. Reji Thomas Monocytes/100 WBC (Bld) 8.5 % Normal 1.7-12.0 [facility] Comment on above: Performed By: #### B MP #### [facility] [address] [place] [address] Dr. Reji Thomas NEUT # 4.0 103/ul Normal 1.4-6.5 [facility] Comment on above: Performed By: #### B MP #### [facility] [address] [place] [address] Dr. Reji Thomas Neutrophils/100 WBC (Bld) 64.3 % Normal 43.0-75.0 [facility] Comment on above: Performed By: #### B MP #### [facility] [address] [place] [address] Dr. Reji Thomas Platelet mean volume (Bld) [Entitic vol] 8.9 fL Critically low 9.5-13.5 [facility] Comment on above: Performed By: #### B MP #### [facility] [address] [address] [address] Reji Thomas PLT 226 103/ul Normal 150-450 [facility] Comment on above: Performed By: #### B MP #### [facility] [address] [address] [address] Reji Thomas RBC 4.23 106/ul Normal 4.20-5.40 [facility] Comment on above: Performed By: #### B MP #### [facility] [address] [address] [address] Reji Thomas WBC 6.3 103/ul Normal 4.0-11.0 [facility] Comment on above: Performed By: #### B MP #### [facility] [address] [address] [address] Reji Thomas FREE THYROXINE INDEX T7on FTI 2.40 Normal 1.30-4.50 [facility] Comment on above: Performed By: #### B FAN BALANCER, CMP, TSH, LIPID #### [facility] [address] [place] [address] Dr. Reji Thomas T3U 32.0 % Normal 30.0-39.0 [facility] Comment on above: Performed By: #### B FAN BALANCER, CMP, TSH, LIPID #### [facility] [address] [place] [address] Dr. Reji Thomas T4 [Mass/Vol] 7.50 ug/dL Normal 4.80-13.90 [facility] Comment on above: Performed By: #### B FAN BALANCER, CMP, TSH, LIPID #### [facility] [address] [place] [address] Dr. Reji Thomas GLYCOHEMOGLOBIN A1Con 2022 ADA RECOMMENDATION SEE BELOW Normal [facility] Comment on above: Result Comment: ADA RECOMMENDED LIMIT 4.0 - 6.0 ADA THERAPEUTIC TARGET < 7.0 ACTION SUGGESTED > 7.0 Performed By: #### B FAN BALANCER, CMP, TSH, LIPID #### [facility] [address] [address] [address] Reji Thomas Glucose [Mass/Vol] 97 mg/dL Normal [facility] Comment on above: Performed By: #### B FAN BALANCER, CMP, TSH, LIPID #### [facility] [address] [address] [address] Reji Thomas HbA1c (Bld) [Mass fraction] 5.0 % Normal 4.5-6.2 [facility] Comment on above: Performed By: #### B FAN BALANCER, CMP, TSH, LIPID #### [facility] [address] [address] [address] Reji Thomas IRONon 03-22-2023 Iron [Mass/Vol] 47.0 ug/dL Critically low 50.0-170.[address] [facility] Comment on above: Performed By: #### B FAN BALANCER, CMP, TSH, LIPID #### [facility] [address] [place] [address] Dr. Reji Thomas LIPID PROFILEon 03-22-2023 CHOL-HDL RATIO NORM SEE BELOW Normal [facility] Comment on above: Result Comment: 3.3 - 4.4 LOW RISK 4.4 - 7.1 AVERAGE RISK 7.1 - 11.0 MODERATE RISK >11.0 HIGH RISK Performed By: #### M G, TSH, LIPID, T7, CMP, BNP #### [facility] [address] [address] [address] Reji Thomas Cholesterol [Mass/Vol] 188 mg/dL Normal <=200 [facility] Comment on above: Performed By: #### M G, TSH, LIPID, T7, CMP, BNP #### [facility] [address] [address] [address] Reji Thomas Cholesterol in HDL [Mass/Vol] 53 mg/dL Normal 40-60 [facility] Comment on above: Performed By: #### M G, TSH, LIPID, T7, CMP, BNP #### [facility] [address] [address] [address] Reji Thomas Cholesterol in LDL [Mass/Vol] 111.6 mg/dL Normal [facility] Comment on above: Performed By: #### M G, TSH, LIPID, T7, CMP, BNP #### [facility] [address] [address] [address] Reji Thomas Cholesterol.total/Ch olesterol in HDL [Mass ratio] 3.5 {ratio} Normal [facility] Comment on above: Performed By: #### M G, TSH, LIPID, T7, CMP, BNP #### [facility] [address] [address] [address] Reji Thomas HDL NORMAL > or = 60 mg/dl - LOW CARDIOVASCULAR RISK <40 mg/dl - HIGH CARDIOVASCULAR RISK Normal [facility] Comment on above: Performed By: #### M G, TSH, LIPID, T7, CMP, BNP #### [facility] [address] [place] [address] Dr. Reji Thomas LDL CALC NORMAL SEE BELOW Normal [facility] Comment on above: Result Comment: <100 mg/dl OPTIMAL 100 - 129 mg/dl NEAR OR ABOVE OPTIMAL 130 - 159 mg/dl BORDERLINE HIGH 160 - 189 mg/dl HIGH >190 mg/dl VERY HIGH Performed By: #### M G, TSH, LIPID, T7, CMP, BNP #### [facility] [address] [address] [address] Reji Thomas Triglyceride [Mass/Vol] 117 mg/dL Normal <=150 [facility] Comment on above: Performed By: #### M G, TSH, LIPID, T7, CMP, BNP #### [facility] [address] [address] [address] Reji Thomas VLDL CALC 23.4 mg/dL Normal [facility] Comment on above: Performed By: #### M G, TSH, LIPID, T7, CMP, BNP #### [facility] [address] [address] [address] Reji Thomas MAGNESIUMon 03-22-2023 Magnesium [Mass/Vol] 2.4 mg/dL Normal 1.8-2.4 [facility] Comment on above: Performed By: #### B FAN BALANCER, CMP, TSH, LIPID #### [facility] [address] [place] [address] Dr. Reji Thomas PROF 14(COMP METB)on 023 Albumin [Mass/Vol] 3.4 g/dL Normal 3.4-5.0 [facility] Comment on above: Performed By: #### M G, TSH, LIPID, T7, CMP, BNP #### [facility] [address] [place] [address] Dr. Reji Thomas Albumin/Globulin [Mass ratio] 0.8 {ratio} Normal [facility] Comment on above: Performed By: #### M G, TSH, LIPID, T7, CMP, BNP #### [facility] [address] [place] [address] Dr. Reji Thomas ALP [Catalytic activity/Vol] 61 U/L Normal 46-116 [facility] Comment on above: Performed By: #### M G, TSH, LIPID, T7, CMP, BNP #### [facility] [address] [place] [address] Dr. Reji Thomas ALT [Catalytic activity/Vol] 15 U/L Normal 14-59 [facility] Comment on above: Performed By: #### M G, TSH, LIPID, T7, CMP, BNP #### [facility] [address] [place] [address] Dr. Reji Thomas Anion gap [Moles/Vol] 13.1 mmol/L Normal [facility] Comment on above: Performed By: #### M G, TSH, LIPID, T7, CMP, BNP #### [facility] [address] [place] [address] Dr. Reji Thomas AST [Catalytic activity/Vol] 13 U/L Critically low 15-37 [facility] Comment on above: Performed By: #### M G, TSH, LIPID, T7, CMP, BNP #### [facility] [address] [place] [address] Dr. Reji Thomas Bilirubin [Mass/Vol] 0.4 mg/dL Normal 0.2-1.0 [facility] Comment on above: Performed By: #### M G, TSH, LIPID, T7, CMP, BNP #### [facility] [address] [place] [address] Dr. Reji Thomas Calcium [Mass/Vol] 8.5 mg/dL Normal 8.5-10.1 [facility] Comment on above: Performed By: #### M G, TSH, LIPID, T7, CMP, BNP #### [facility] [address] [place] [address] Dr. Reji Thomas Chloride [Moles/Vol] 106 mmol/L Normal 98-107 [facility] Comment on above: Performed By: #### M G, TSH, LIPID, T7, CMP, BNP #### [facility] [address] [place] [address] Dr. Reji Thomas CO2 [Moles/Vol] 27.6 mmol/L Normal 21.0-32.0 [facility] Comment on above: Performed By: #### M G, TSH, LIPID, T7, CMP, BNP #### [facility] [address] [place] [address] Dr. Reji Thomas Creatinine [Mass/Vol] 2.32 mg/dL Critically high 0.55-1.02 [facility] Comment on above: Performed By: #### M G, TSH, LIPID, T7, CMP, BNP #### [facility] [address] [place] [address] Dr. Reji Thomas EGFR-AF ECUADOREAN 24 mL/min/1.73m2 Critically low >=60 [facility] Comment on above: Performed By: #### M G, TSH, LIPID, T7, CMP, BNP #### [facility] [address] [place] [address] Dr. Reji Thomas EGFR-NON AF ECUADOREAN 20 mL/min/1.73m2 Critically low >=60 [facility] Comment on above: Performed By: #### M G, TSH, LIPID, T7, CMP, BNP #### [facility] [address] [place] [address] Dr. Reji Thomas Globulin (S) [Mass/Vol] 4.3 g/dL Normal [facility] Comment on above: Performed By: #### M G, TSH, LIPID, T7, CMP, BNP #### [facility] [address] [address] [address] Reji Thomas Glucose [Mass/Vol] 88 mg/dL Normal 74-106 [facility] Comment on above: Performed By: #### M G, TSH, LIPID, T7, CMP, BNP #### [facility] [address] [address] [address] Reji Thomas Potassium [Moles/Vol] 4.7 mmol/L Normal 3.5-5.1 [facility] Comment on above: Performed By: #### M G, TSH, LIPID, T7, CMP, BNP #### [facility] [address] [address] [address] Reji Thomas Protein [Mass/Vol] 7.7 g/dL Normal 6.4-8.2 [facility] Comment on above: Performed By: #### M G, TSH, LIPID, T7, CMP, BNP #### [facility] [address] [place] [address] Dr. Reji Thomas Sodium [Moles/Vol] 142 mmol/L Normal 136-145 [facility] Comment on above: Performed By: #### M G, TSH, LIPID, T7, CMP, BNP #### [facility] [address] [address] [address] Reji Thomas Urea nitrogen [Mass/Vol] 38.0 mg/dL Critically high 7.0-18.0 [facility] Comment on above: Performed By: #### M G, TSH, LIPID, T7, CMP, BNP #### [facility] [address] [place] [address] Dr. Reji Thomas Urea nitrogen/Creatinine [Mass ratio] 16.4 mg/mg Normal [facility] Comment on above: Performed By: #### M G, TSH, LIPID, T7, CMP, BNP #### [facility] [address] [place] [address] Dr. Reji Thomas PROTIMEon 03-22-2023 INR Coag (PPP) [Relative time] 1.98 {INR} Normal [facility] Comment on above: Performed By: #### P T #### [facility] [address] [place] [address] Dr. Reji Thomas INR GUIDELINES SEE BELOW Normal [facility] Comment on above: Result Comment: SHY RED INR: 2.0 - 3.0 CONDITIONS NOT LISTED BELOW 2.5 - 3.5 FOR PROSTHETIC HEART VALVE REPLACEMENT 2.5 - 3.5 RECURRENT THROMBOSIS Performed By: #### P T #### [facility] [address] [place] [address] Dr. Reji Thomas PT Coag (PPP) [Time] 20.2 s Critically high 9.0-11.6 [facility] Comment on above: Performed By: #### P T #### [facility] [address] [place] [address] Dr. Reji Thomas TSHon 03-22-2023 TSH 2.265 uIU/mL Normal 0.358-3.740 [facility] Comment on above: Performed By: #### B FAN BALANCER, CMP, TSH, LIPID #### [facility] [address] [place] [address] Dr. Reji Thomas VITAMIN D 25 OHon 03-22-2023 VIT D 25-OH 53.1 ng/mL Normal [facility] Comment on above: Performed By: #### B MP #### [facility] [address] [place] [address] Dr. Reji Thomas VIT D RANGES SEE BELOW Normal [facility] Comment on above: Result Comment: <20 ng/mL Vit D deficient 20 - <30 ng/mL Vit D insufficient 30 - 100 ng/mL Vit D sufficient >100 ng/mL Potential Toxicity Performed By: #### B MP #### [facility] [address] [place] [address] Dr. Reji Thomas PROTIMEon 02-22-2023 INR Coag (PPP) [Relative time] 2.22 {INR} Normal [facility] Comment on above: Performed By: #### B FAN BALANCER, CMP, TSH, LIPID #### [facility] [address] [place] [address] Dr. Reji Thomas INR GUIDELINES SEE BELOW Normal [facility] Comment on above: Result Comment: SHY RED INR: 2.0 - 3.0 CONDITIONS NOT LISTED BELOW 2.5 - 3.5 FOR PROSTHETIC HEART VALVE REPLACEMENT 2.5 - 3.5 RECURRENT THROMBOSIS Performed By: #### B FAN BALANCER, CMP, TSH, LIPID #### [facility] [address] [place] [address] Dr. Reji Thomas PT Coag (PPP) [Time] 22.5 s Critically high 9.0-11.6 [facility] Comment on above: Performed By: #### B FAN BALANCER, CMP, TSH, LIPID #### [facility] [address] [place] [address] Dr. Reji Thomas PROTIMEon 01-03-2023 INR Coag (PPP) [Relative time] 2.53 {INR} Normal [facility] Comment on above: Performed By: #### B MP #### [facility] [address] [place] [address] Dr. Reji Thomas INR GUIDELINES SEE BELOW Normal [facility] Comment on above: Result Comment: SHY RED INR: 2.0 - 3.0 CONDITIONS NOT LISTED BELOW 2.5 - 3.5 FOR PROSTHETIC HEART VALVE REPLACEMENT 2.5 - 3.5 RECURRENT THROMBOSIS Performed By: #### B MP #### [facility] [address] [place] [address] Dr. Reji Thomas PT Coag (PPP) [Time] 25.4 s Critically high 9.0-11.6 [facility] Comment on above: Performed By: #### B MP #### [facility] [address] [place] [address] Dr. Reji Thomas PROTIMEon 11-23-2022 INR Coag (PPP) [Relative time] 1.71 {INR} Normal [facility] Comment on above: Performed By: #### B FAN BALANCER, CMP, TSH, LIPID #### [facility] [address] [place] [address] Dr. Reji Thomas INR GUIDELINES SEE BELOW Normal [facility] Comment on above: Result Comment: SHY RED INR: 2.0 - 3.0 CONDITIONS NOT LISTED BELOW 2.5 - 3.5 FOR PROSTHETIC HEART VALVE REPLACEMENT 2.5 - 3.5 RECURRENT THROMBOSIS Performed By: #### B FAN BALANCER, CMP, TSH, LIPID #### [facility] [address] [place] [address] Dr. Reji Thomas PT Coag (PPP) [Time] 17.6 s Critically high 9.0-11.6 [facility] Comment on above: Performed By: #### B FAN BALANCER, CMP, TSH, LIPID #### [facility] [address] [place] [address] Dr. Reji Thomas PROTIMEon 10-10-2022 INR Coag (PPP) [Relative time] 2.52 {INR} Normal [facility] Comment on above: Performed By: #### B FAN BALANCER, CMP, TSH, LIPID #### [facility] [address] [place] [address] Dr. Reji Thomas INR GUIDELINES SEE BELOW Normal [facility] Comment on above: Result Comment: SHY RED INR: 2.0 - 3.0 CONDITIONS NOT LISTED BELOW 2.5 - 3.5 FOR PROSTHETIC HEART VALVE REPLACEMENT 2.5 - 3.5 RECURRENT THROMBOSIS Performed By: #### B FAN BALANCER, CMP, TSH, LIPID #### [facility] [address] [place] [address] Dr. Reji Thomas PT Coag (PPP) [Time] 25.6 s Critically high 9.0-11.6 [facility] Comment on above: Performed By: #### B FAN BALANCER, CMP, TSH, LIPID #### [facility] [address] [place] [address] Dr. Reji Thomas PROTIMEon 09-05-2022 INR Coag (PPP) [Relative time] 2.03 {INR} Normal [facility] Comment on above: Performed By: #### B FAN BALANCER, CMP, TSH, LIPID #### [facility] [address] [place] [address] Dr. Reji Thomas INR GUIDELINES SEE BELOW Normal [facility] Comment on above: Result Comment: SHY RED INR: 2.0 - 3.0 CONDITIONS NOT LISTED BELOW 2.5 - 3.5 FOR PROSTHETIC HEART VALVE REPLACEMENT 2.5 - 3.5 RECURRENT THROMBOSIS Performed By: #### B FAN BALANCER, CMP, TSH, LIPID #### [facility] [address] [place] [address] Dr. Reji Thomas PT Coag (PPP) [Time] 20.9 s Critically high 9.0-11.6 [facility] Comment on above: Performed By: #### B FAN BALANCER, CMP, TSH, LIPID #### [facility] [address] [place] [address] Dr. Reji Thomas BNPon 08-10-2022 Natriuretic peptide B (Bld) [Mass/Vol] 1162.0 pg/mL Normal <=1,800.0 [facility] Comment on above: Performed By: #### B MP, BNP #### [facility] [address] [place] [address] Dr. Reji Thomas PROF CHEM 8 (BAS METB)on Anion gap [Moles/Vol] 11.3 mmol/L Normal [facility] Comment on above: Performed By: #### B MP, BNP #### [facility] [address] [place] [address] Dr. Reji Thomas Calcium [Mass/Vol] 8.9 mg/dL Normal 8.5-10.1 [facility] Comment on above: Performed By: #### B MP, BNP #### [facility] [address] [place] [address] Dr. Reji Thomas Chloride [Moles/Vol] 103 mmol/L Normal 98-107 [facility] Comment on above: Performed By: #### B MP, BNP #### [facility] [address] [place] [address] Dr. Reji Thomas CO2 [Moles/Vol] 28.2 mmol/L Normal 21.0-32.0 [facility] Comment on above: Performed By: #### B MP, BNP #### [facility] [address] [place] [address] Dr. Reji Thomas Creatinine [Mass/Vol] 2.07 mg/dL Critically high 0.55-1.02 [facility] Comment on above: Performed By: #### B MP, BNP #### [facility] [address] [place] [address] Dr. Reji Thomas EGFR-AF ECUADOREAN 28 mL/min/1.73m2 Critically low >=60 [facility] Comment on above: Performed By: #### B MP, BNP #### [facility] [address] [address] [address] Reji Thomas EGFR-NON AF ECUADOREAN 23 mL/min/1.73m2 Critically low >=60 [facility] Comment on above: Performed By: #### B MP, BNP #### [facility] [address] [address] [address] Reji Thomas Glucose [Mass/Vol] 88 mg/dL Normal 74-106 [facility] Comment on above: Performed By: #### B MP, BNP #### [facility] [address] [place] [address] Dr. Reji Thomas Potassium [Moles/Vol] 4.5 mmol/L Normal 3.5-5.1 [facility] Comment on above: Performed By: #### B MP, BNP #### [facility] [address] [place] [address] Dr. Reji Thomas Sodium [Moles/Vol] 138 mmol/L Normal 136-145 [facility] Comment on above: Performed By: #### B MP, BNP #### [facility] [address] [place] [address] Dr. Reji Thomas Urea nitrogen [Mass/Vol] 35.0 mg/dL Critically high 7.0-18.0 [facility] Comment on above: Performed By: #### B MP, BNP #### [facility] [address] [place] [address] Dr. Reji Thomas Urea nitrogen/Creatinine [Mass ratio] 16.9 mg/mg Normal [facility] Comment on above: Performed By: #### B MP, BNP #### [facility] [address] [place] [address] Dr. Reji Thomas PROTIMEon 08-09-2022 INR Coag (PPP) [Relative time] 2.04 {INR} Normal [facility] Comment on above: Performed By: #### B FAN BALANCER, CMP, TSH, LIPID #### [facility] [address] [place] [address] Dr. Reji Thomas INR GUIDELINES SEE BELOW Normal [facility] Comment on above: Result Comment: SHY RED INR: 2.0 - 3.0 CONDITIONS NOT LISTED BELOW 2.5 - 3.5 FOR PROSTHETIC HEART VALVE REPLACEMENT 2.5 - 3.5 RECURRENT THROMBOSIS Performed By: #### B FAN BALANCER, CMP, TSH, LIPID #### [facility] [address] [place] [address] Dr. Reji Thomas PT Coag (PPP) [Time] 21.0 s Critically high 9.0-11.6 [facility] Comment on above: Performed By: #### B FAN BALANCER, CMP, TSH, LIPID #### [facility] [address] [place] [address] Dr. Reji Thomas BNPon 07-09-2022 Natriuretic peptide B (Bld) [Mass/Vol] 2085.0 pg/mL Critically high <=1,800.0 [facility] Comment on above: Result Comment: CRIT ICAL CALLED TO OFFICE ON 07-10-22 AT 0850 BY AR Performed By: #### B FAN BALANCER, CMP, TSH, LIPID #### [facility] [address] [place] [address] Dr. Reji Thomas PROF CHEM 8 (BAS METB)on Anion gap [Moles/Vol] 13.7 mmol/L Normal [facility] Comment on above: Performed By: #### B FAN BALANCER, CMP, TSH, LIPID #### [facility] [address] [place] [address] Dr. eRji Thomas Calcium [Mass/Vol] 8.3 mg/dL Critically low 8.5-10.1 [facility] Comment on above: Performed By: #### B FAN BALANCER, CMP, TSH, LIPID #### [facility] [address] [place] [address] Dr. Reji Thomas Chloride [Moles/Vol] 104 mmol/L Normal 98-107 [facility] Comment on above: Performed By: #### B FAN BALANCER, CMP, TSH, LIPID #### [facility] [address] [place] [address] Dr. Reji Thomas CO2 [Moles/Vol] 26.6 mmol/L Normal 21.0-32.0 [facility] Comment on above: Performed By: #### B FAN BALANCER, CMP, TSH, LIPID #### [facility] [address] [address] [address] Reji Thomas Creatinine [Mass/Vol] 1.98 mg/dL Critically high 0.55-1.02 [facility] Comment on above: Performed By: #### B FAN BALANCER, CMP, TSH, LIPID #### [facility] [address] [address] [address] Reji Thomas EGFR-AF ECUADOREAN 29 mL/min/1.73m2 Critically low >=60 [facility] Comment on above: Performed By: #### B FAN BALANCER, CMP, TSH, LIPID #### [facility] [address] [place] [address] Dr. Reji Thomas EGFR-NON AF ECUADOREAN 24 mL/min/1.73m2 Critically low >=60 [facility] Comment on above: Performed By: #### B FAN BALANCER, CMP, TSH, LIPID #### [facility] [address] [address] [address] Reji Thomas Glucose [Mass/Vol] 116 mg/dL Critically high 74-106 [facility] Comment on above: Performed By: #### B FAN BALANCER, CMP, TSH, LIPID #### [facility] [address] [address] [address] Reji Thomas Potassium [Moles/Vol] 4.3 mmol/L Normal 3.5-5.1 [facility] Comment on above: Performed By: #### B FAN BALANCER, CMP, TSH, LIPID #### [facility] [address] [address] [address] Reji Thomas Sodium [Moles/Vol] 140 mmol/L Normal 136-145 [facility] Comment on above: Performed By: #### B FAN BALANCER, CMP, TSH, LIPID #### [facility] [address] [address] [address] Reji Thomas Urea nitrogen [Mass/Vol] 35.0 mg/dL Critically high 7.0-18.0 [facility] Comment on above: Performed By: #### B FAN BALANCER, CMP, TSH, LIPID #### [facility] [address] [address] [address] Reji Thomas Urea nitrogen/Creatinine [Mass ratio] 17.7 mg/mg Normal [facility] Comment on above: Performed By: #### B FAN BALANCER, CMP, TSH, LIPID #### [facility] [address] [place] [address] Dr. Reji Thomas PROTIMEon 07-09-2022 INR Coag (PPP) [Relative time] 2.99 {INR} Normal [facility] Comment on above: Performed By: #### B FAN BALANCER, CMP, TSH, LIPID #### [facility] [address] [place] [address] Dr. Reji Thomas INR GUIDELINES SEE BELOW Normal [facility] Comment on above: Result Comment: SHY RED INR: 2.0 - 3.0 CONDITIONS NOT LISTED BELOW 2.5 - 3.5 FOR PROSTHETIC HEART VALVE REPLACEMENT 2.5 - 3.5 RECURRENT THROMBOSIS Performed By: #### B FAN BALANCER, CMP, TSH, LIPID #### [facility] [address] [place] [address] Dr. Reji Thomas PT Coag (PPP) [Time] 30.1 s Critically high 9.0-11.6 [facility] Comment on above: Performed By: #### B FAN BALANCER, CMP, TSH, LIPID #### [facility] [address] [place] [address] Dr. Reji Thomas US KIDNEYSon 07-06-2022 US [...] by: SIGRID RICHMOND Date: 2022-07-06 13:31 Normal [facility] EVAN Antinuclear Antibodieson 06-19-2022 Antinuclear Abs, IFA Positive Critically abnormal . [facility] Comment on above: Result Comment: Nega tive <1:80 Borderline 1:80 Positive >1:80 Performed By: #### Krista CHOW ADDONUAPLUS #### [facility] [address] [place] [address] #### C3, C4, CH50 #### [facility] , Homogeneous Pattern 1:320 High . [facility] Comment on above: Result Comment: ICAP nomenclature: [id number] Performed By: #### Krista CHOW ADDONUAPLUS #### [facility] [address] [place] [address] #### C3, C4, CH50 #### [facility] , Note 1 Normal . [facility] Comment on above: Result Comment: [...] titers Nucleosomes, Histones Drug-induced SLE Speckled Sm, CLOUD SOLUTIONS ARCHITECT, SCL-70, SLE,MCTD,PSS (diffuse form), SS-A/SS-B Sjogrens Nucleolar SCL-70, PM-1/SCL High titers Scleroderma, PM/DM Centromere Centromere PSS (limited form) w/Crest syndrome variable Nuclear Dot [id number] Primary Biliary Cirrhosis Nuclear GP210, Primary Biliary Cirrhosis Membrane eleonora A,B,C Performed at: [facility] - [facility] [id number] Stock Buyer: Demarcus Lawton PhD, Phone: [phone] Performed By: #### C UU, ADDONUAPLUS #### [address] #### C3, C4, CH50 #### [facility] , Anti-RNPon 06-19-2022 Anti-CLOUD SOLUTIONS ARCHITECT 0.4 Normal 0.0-0.9 [facility] Comment on above: Result Comment: Perf ormed at: [address] [id number] Stock Buyer: Demarcus Lawton PhD, Phone: [phone] Performed By: #### C UU, ADDONUAPLUS #### [address] #### C3, C4, CH50 #### [facility] , C-Reactive Proteinon 022 C-Reactive Protein 2.0 mg/dL High 0.0-1.0 [facility] Comment on above: Result Comment: PERF ORMED BY: [place] [address] PATHOLOGIST SENIOR DATA MODELER RADHA BULLARD M.D. Performed By: #### C UU, ADDONUAPLUS #### [address] #### C3, C4, CH50 #### [facility] , Complement C3on 06-19-2022 Complement C3 167 mg/dL Normal 82-167 [facility] Comment on above: Result Comment: Perf ormed at: [address] [id number] Stock Buyer: Demarcus Lawton PhD, Phone: [phone] Performed By: #### C UU, ADDONUAPLUS #### [address] #### C3, C4, CH50 #### [facility] , Complement C4on 06-19-2022 Complement C4 37 mg/dL Normal 12-38 [facility] Comment on above: Performed By: #### C GERALDO ADDONUAPLUS #### [address] #### C3, C4, CH50 #### [facility] , Complement Total (CH50)on Complement Total (CH50) >60 Normal >41 [facility] Comment on above: Result Comment: [...] determine out of range values. Performed at: [facility] [id number] Stock Buyer: Demarcus Lawton PhD, Phone: [phone] PERFORMED BY: [place] [address] PATHOLOGIST SENIOR DATA MODELER RADHA BULLARD M.D. Performed By: #### C COURTNEY CHOWONUAPLUS #### [address] #### C3, C4, CH50 #### [facility] , Complete Blood Count Auto Di ffon 06-19-2022 Basophils (Bld) [#/Vol] 0.1 10*3/uL Normal 0.0-0.2 [facility] Comment on above: Performed By: #### H EPATIC, CBC, ESR, CRP, CREAT, CK #### [facility] [address] [place] [address] #### RNA POLYMR, ANTI TH TO, EVAN, U3 CLOUD SOLUTIONS ARCHITECT, ANTIR, PM-SCL ABS #### [facility] , Basophils/100 WBC (Bld) 0.9 % Normal . [facility] Comment on above: Performed By: #### H EPATIC, CBC, ESR, CRP, CREAT, CK #### [place] [address] [place] #### RNA POLYMR, ANTI TH TO, EVAN, U3 CLOUD SOLUTIONS ARCHITECT, ANTIR, PM-SCL ABS #### [facility] , Eosinophils (Bld) [#/Vol] 0.5 10*3/uL High 0.0-0.45 [facility] Comment on above: Performed By: #### H EPATIC, CBC, ESR, CRP, CREAT, CK #### [place] [address] [place] #### RNA POLYMR, ANTI TH TO, EVAN, U3 CLOUD SOLUTIONS ARCHITECT, ANTIR, PM-SCL ABS #### [facility] , Eosinophils/100 WBC (Bld) 8.6 % Normal . [facility] Comment on above: Performed By: #### H EPATIC, CBC, ESR, CRP, CREAT, CK #### [place] [address] [place] #### RNA POLYMR, ANTI TH TO, EVAN, U3 CLOUD SOLUTIONS ARCHITECT, ANTIR, PM-SCL ABS #### [facility] , Erythrocyte distribution width (RBC) [Ratio] 19.6 % High 11.9-15.3 [facility] Comment on above: Performed By: #### H EPATIC, CBC, ESR, CRP, CREAT, CK #### [place] [address] [place] #### RNA POLYMR, ANTI TH TO, EVAN, U3 CLOUD SOLUTIONS ARCHITECT, ANTIR, PM-SCL ABS #### [facility] , Hematocrit (Bld) [Volume fraction] 33.8 % Low 34.0-46.4 [facility] Comment on above: Performed By: #### H EPATIC, CBC, ESR, CRP, CREAT, CK #### [place] [address] [place] #### RNA POLYMR, ANTI TH TO, EVAN, U3 CLOUD SOLUTIONS ARCHITECT, ANTIR, PM-SCL ABS #### [facility] , Hemoglobin (Bld) [Mass/Vol] 10.9 g/dL Low 11.8-15.4 [facility] Comment on above: Performed By: #### H EPATIC, CBC, ESR, CRP, CREAT, CK #### [facility] [address] [place] [address] [place] #### RNA POLYMR, ANTI TH TO, EVAN, U3 CLOUD SOLUTIONS ARCHITECT, ANTIR, PM-SCL ABS #### [facility] , Lymphocytes (Bld) [#/Vol] 1.1 10*3/uL Normal 1.00-4.8 [facility] Comment on above: Performed By: #### H EPATIC, CBC, ESR, CRP, CREAT, CK #### [place] [address] [place] #### RNA POLYMR, ANTI TH TO, EVAN, U3 CLOUD SOLUTIONS ARCHITECT, ANTIR, PM-SCL ABS #### [facility] , Lymphocytes/100 WBC (Bld) 17.8 % Normal . [facility] Comment on above: Performed By: #### H EPATIC, CBC, ESR, CRP, CREAT, CK #### [place] [address] [place] #### RNA POLYMR, ANTI TH TO, EVAN, U3 CLOUD SOLUTIONS ARCHITECT, ANTIR, PM-SCL ABS #### [facility] , MCH (RBC) [Entitic mass] 26.4 pg Normal 24.7-34.3 [facility] Comment on above: Performed By: #### H EPATIC, CBC, ESR, CRP, CREAT, CK #### [facility] [address] [place] [address] [place] #### RNA POLYMR, ANTI TH TO, EVAN, U3 CLOUD SOLUTIONS ARCHITECT, ANTIR, PM-SCL ABS #### [facility] , MCV (RBC) [Entitic vol] 81.8 fL Normal 80-100 [facility] Comment on above: Performed By: #### H EPATIC, CBC, ESR, CRP, CREAT, CK #### [place] [address] [place] #### RNA POLYMR, ANTI TH TO, EVAN, U3 CLOUD SOLUTIONS ARCHITECT, ANTIR, PM-SCL ABS #### [facility] , Mean Corpuscular HGB Conc 32.3 g/dL Normal 32.0-35.0 [facility] Comment on above: Performed By: #### H EPATIC, CBC, ESR, CRP, CREAT, CK #### [address] #### RNA POLYMR, ANTI TH TO, EVAN, U3 CLOUD SOLUTIONS ARCHITECT, ANTIR, PM-SCL ABS #### [facility] , Monocytes (Bld) [#/Vol] 0.4 10*3/uL Normal 0.0-0.8 [facility] Comment on above: Performed By: #### H EPATIC, CBC, ESR, CRP, CREAT, CK #### [place] [address] [place] #### RNA POLYMR, ANTI TH TO, EVAN, U3 CLOUD SOLUTIONS ARCHITECT, ANTIR, PM-SCL ABS #### [facility] , Monocytes/100 WBC (Bld) 7.4 % Normal . [facility] Comment on above: Performed By: #### H EPATIC, CBC, ESR, CRP, CREAT, CK #### [facility] [address] [place] [address] [place] #### RNA POLYMR, ANTI TH TO, EVAN, U3 CLOUD SOLUTIONS ARCHITECT, ANTIR, PM-SCL ABS #### [facility] , Neutrophils (Bld) [#/Vol] 3.9 10*3/uL Normal 1.8-7.7 [facility] Comment on above: Performed By: #### H EPATIC, CBC, ESR, CRP, CREAT, CK #### [place] [address] [place] #### RNA POLYMR, ANTI TH TO, EVAN, U3 CLOUD SOLUTIONS ARCHITECT, ANTIR, PM-SCL ABS #### [facility] , Neutrophils/100 WBC (Bld) 65.3 % Normal . [facility] Comment on above: Performed By: #### H EPATIC, CBC, ESR, CRP, CREAT, CK #### [address] #### RNA POLYMR, ANTI TH TO, EVAN, U3 CLOUD SOLUTIONS ARCHITECT, ANTIR, PM-SCL ABS #### [facility] , Nucleated RBC/100 WBC (Bld) [Ratio] 0.0 % Normal 0-0.5 [facility] Comment on above: Performed By: #### H EPATIC, CBC, ESR, CRP, CREAT, CK #### [address] #### RNA POLYMR, ANTI TH TO, EVAN, U3 CLOUD SOLUTIONS ARCHITECT, ANTIR, PM-SCL ABS #### [facility] , Platelet mean volume (Bld) [Entitic vol] 7.2 fL Normal 6.3-10.7 [facility] Comment on above: Performed By: #### H EPATIC, CBC, ESR, CRP, CREAT, CK #### [place] [address] [place] #### RNA POLYMR, ANTI TH TO, EVAN, U3 CLOUD SOLUTIONS ARCHITECT, ANTIR, PM-SCL ABS #### [facility] , Platelets (Bld) [#/Vol] 237 10*3/uL Normal 150-450 [facility] Comment on above: Performed By: #### H EPATIC, CBC, ESR, CRP, CREAT, CK #### [facility] [address] [place] [address] [place] #### RNA POLYMR, ANTI TH TO, EVAN, U3 CLOUD SOLUTIONS ARCHITECT, ANTIR, PM-SCL ABS #### [facility] , RBC (Bld) [#/Vol] 4.14 10*6/uL Normal 3.60-5.00 [facility] Comment on above: Performed By: #### H EPATIC, CBC, ESR, CRP, CREAT, CK #### [facility] [address] [place] [address] #### RNA POLYMR, ANTI TH TO, EVAN, U3 CLOUD SOLUTIONS ARCHITECT, ANTIR, PM-SCL ABS #### [facility] , WBC (Bld) [#/Vol] 6.0 10*3/uL Normal 4.5-11.0 [facility] Comment on above: Performed By: #### H EPATIC, CBC, ESR, CRP, CREAT, CK #### [facility] [address] [place] [address] #### RNA POLYMR, ANTI TH TO, EVAN, U3 CLOUD SOLUTIONS ARCHITECT, ANTIR, PM-SCL ABS #### [facility] , Creatine Kinaseon 06-19-2022 CK [Catalytic activity/Vol] 38 U/L Normal 22-269 [facility] Comment on above: Result Comment: PERF ORMED BY: [place] [address] PATHOLOGIST SENIOR DATA MODELER RADHA BULLARD M.D. Performed By: #### H EPATIC, CBC, ESR, CRP, CREAT, CK #### [address] #### RNA POLYMR, ANTI TH TO, EVAN, U3 CLOUD SOLUTIONS ARCHITECT, ANTIR, PM-SCL ABS #### [facility] , Creatinineon 06-19-2022 Creatinine [Mass/Vol] 2.82 mg/dL High 0.44-1.03 [facility] Comment on above: Performed By: #### H EPATIC, CBC, ESR, CRP, CREAT, CK #### [facility] [address] [place] [address] [place] #### RNA POLYMR, ANTI TH TO, EVAN, U3 CLOUD SOLUTIONS ARCHITECT, ANTIR, PM-SCL ABS #### [facility] , Estimated GFR ( Oralia 19 Normal [facility] Comment on above: Result Comment: GFR estimated reference range: According to KDOQI guidelines, <60 ml/min/1.73m2 is sufficient to diagnose a patient with chronic kidney disease. Performed By: #### H EPATIC, CBC, ESR, CRP, CREAT, CK #### [address] #### RNA POLYMR, ANTI TH TO, EVAN, U3 CLOUD SOLUTIONS ARCHITECT, ANTIR, PM-SCL ABS #### [facility] , Estimated GFR (Non- Am 16 Normal [facility] Comment on above: Performed By: #### H EPATIC, CBC, ESR, CRP, CREAT, CK #### [address] #### RNA POLYMR, ANTI TH TO, EVAN, U3 CLOUD SOLUTIONS ARCHITECT, ANTIR, PM-SCL ABS #### [facility] , Dipstick and Microscopicon 0 06-19-2022 Appearance (U) Cloudy Critically abnormal Clear [facility] Comment on above: Order Comment: Name Collection Type:: Clean-Voided Midstream Performed By: #### C UU, ADDONUAPLUS #### [address] #### C3, C4, CH50 #### [facility] , Bacteria,Urine 1+ High None Seen [facility] Comment on above: Order Comment: Name Collection Type:: Clean-Voided Midstream Performed By: #### C UU, ADDONUAPLUS #### [address] #### C3, C4, CH50 #### [facility] , Bilirubin,Urine Negative Normal Negative [facility] Comment on above: Order Comment: Name Collection Type:: Clean-Voided Midstream Performed By: #### C UU, ADDONUAPLUS #### [address] #### C3, C4, CH50 #### [facility] , Color (U) Yellow Normal Yellow [facility] Comment on above: Order Comment: Name Collection Type:: Clean-Voided Midstream Performed By: #### C UU, ADDONUAPLUS #### [address] #### C3, C4, CH50 #### [facility] , Glucose Ql (U) Normal Normal Normal [facility] Comment on above: Order Comment: Name Collection Type:: Clean-Voided Midstream Performed By: #### C UU, ADDONUAPLUS #### [address] #### C3, C4, CH50 #### [facility] , Hyaline Casts,Urine 1-2 Normal 0-8 [facility] Comment on above: Order Comment: Name Collection Type:: Clean-Voided Midstream Result Comment: PERF ORMED BY: [place] [address] PATHOLOGIST SENIOR DATA MODELER RADHA BULLARD M.D. Performed By: #### C UU, ADDONUAPLUS #### [address] #### C3, C4, CH50 #### [facility] , Ketones Ql (U) Negative Normal Negative [facility] Comment on above: Order Comment: Name Collection Type:: Clean-Voided Midstream Performed By: #### C UU, ADDONUAPLUS #### [address] #### C3, C4, CH50 #### [facility] , Leukocyte esterase Test strip Ql (U) 4+ High Negative [facility] Comment on above: Order Comment: Name Collection Type:: Clean-Voided Midstream Performed By: #### C UU, ADDONUAPLUS #### [address] #### C3, C4, CH50 #### [facility] , Nitrite,Urine Negative Normal Negative [facility] Comment on above: Order Comment: Name Collection Type:: Clean-Voided Midstream Performed By: #### C UU, ADDONUAPLUS #### [address] #### C3, C4, CH50 #### [facility] , Occult Blood,Urine 1+ High Negative [facility] Comment on above: Order Comment: Name Collection Type:: Clean-Voided Midstream Performed By: #### C UU, ADDONUAPLUS #### [address] #### C3, C4, CH50 #### [facility] , pH (U) 6.5 [pH] Normal 5.0-9.0 [facility] Comment on above: Order Comment: Name Collection Type:: Clean-Voided Midstream Performed By: #### C UU, ADDONUAPLUS #### [address] #### C3, C4, CH50 #### [facility] , Protein,Urine Trace High Negative [facility] Comment on above: Order Comment: Name Collection Type:: Clean-Voided Midstream Performed By: #### C UU, ADDONUAPLUS #### [facility] [address] [place] [address] #### C3, C4, CH50 #### [facility] , RBC,Urine 1-2 Normal 0-4 [facility] Comment on above: Order Comment: Name Collection Type:: Clean-Voided Midstream Performed By: #### C UU, ADDONUAPLUS #### [address] #### C3, C4, CH50 #### [facility] , Specificy Blythe,Urine 1.010 Normal 1.001-1.030 [facility] Comment on above: Order Comment: Name Collection Type:: Clean-Voided Midstream Performed By: #### C UU, ADDONUAPLUS #### [address] #### C3, C4, CH50 #### [facility] , Squamous Epithelial Cell,Urine 5-9 High 0-2 [facility] Comment on above: Order Comment: Name Collection Type:: Clean-Voided Midstream Performed By: #### C UU, ADDONUAPLUS #### [address] #### C3, C4, CH50 #### [facility] , Urobilinogen,Urine Normal Normal Normal [facility] Comment on above: Order Comment: Name Collection Type:: Clean-Voided Midstream Performed By: #### C UU, ADDONUAPLUS #### [address] #### C3, C4, CH50 #### [facility] , WBC,Urine Innumerable High 0-4 [facility] Comment on above: Order Comment: Name Collection Type:: Clean-Voided Midstream Performed By: #### C UU, ADDONUAPLUS #### [address] #### C3, C4, CH50 #### [facility] , Erythrocyte Sedimentation Ra pratik 06-19-2022 ESR (Bld) [Velocity] 57 mm/h High 0-29 [facility] Comment on above: Result Comment: PERF ORMED BY: [place] [address] PATHOLOGIST SENIOR DATA MODELER RADHA BULLARD M.D. Performed By: #### H EPATIC, CBC, ESR, CRP, CREAT, CK #### [address] #### RNA POLYMR, ANTI TH TO, EVAN, U3 CLOUD SOLUTIONS ARCHITECT, ANTIR, PM-SCL ABS #### [facility] , Hepatic Panelon 06-19-2022 Albumin [Mass/Vol] 3.6 g/dL Normal 3.2-5.5 [facility] Comment on above: Performed By: #### H EPATIC, CBC, ESR, CRP, CREAT, CK #### [facility] [address] [place] [address] #### RNA POLYMR, ANTI TH TO, EVAN, U3 CLOUD SOLUTIONS ARCHITECT, ANTIR, PM-SCL ABS #### [facility] , Albumin/Globulin [Mass ratio] 1.0 {ratio} Normal [facility] Comment on above: Performed By: #### H EPATIC, CBC, ESR, CRP, CREAT, CK #### [facility] [address] [place] [address] #### RNA POLYMR, ANTI TH TO, EVAN, U3 CLOUD SOLUTIONS ARCHITECT, ANTIR, PM-SCL ABS #### [facility] , ALP [Catalytic activity/Vol] 68 U/L Normal 32-92 [facility] Comment on above: Performed By: #### H EPATIC, CBC, ESR, CRP, CREAT, CK #### [facility] [address] [place] [address] [place] #### RNA POLYMR, ANTI TH TO, EVAN, U3 CLOUD SOLUTIONS ARCHITECT, ANTIR, PM-SCL ABS #### [facility] , ALT [Catalytic activity/Vol] 9 U/L Low 10-60 [facility] Comment on above: Performed By: #### H EPATIC, CBC, ESR, CRP, CREAT, CK #### [facility] [address] [place] [address] [place] #### RNA POLYMR, ANTI TH TO, EVAN, U3 CLOUD SOLUTIONS ARCHITECT, ANTIR, PM-SCL ABS #### [facility] , AST [Catalytic activity/Vol] 15 U/L Normal 10-42 [facility] Comment on above: Performed By: #### H EPATIC, CBC, ESR, CRP, CREAT, CK #### [place] [address] [place] #### RNA POLYMR, ANTI TH TO, EVAN, U3 CLOUD SOLUTIONS ARCHITECT, ANTIR, PM-SCL ABS #### [facility] , Bilirubin [Mass/Vol] 0.6 mg/dL Normal 0.3-1.2 [facility] Comment on above: Performed By: #### H EPATIC, CBC, ESR, CRP, CREAT, CK #### [place] [address] [place] #### RNA POLYMR, ANTI TH TO, EVAN, U3 CLOUD SOLUTIONS ARCHITECT, ANTIR, PM-SCL ABS #### [facility] , Bilirubin,Indirect 0.4 mg/dL Normal [facility] Comment on above: Performed By: #### H EPATIC, CBC, ESR, CRP, CREAT, CK #### [place] [address] [place] #### RNA POLYMR, ANTI TH TO, EVAN, U3 CLOUD SOLUTIONS ARCHITECT, ANTIR, PM-SCL ABS #### [facility] , Bilirubin.indirect [Mass/Vol] 0.2 mg/dL Normal 0.0-0.4 [facility] Comment on above: Performed By: #### H EPATIC, CBC, ESR, CRP, CREAT, CK #### [address] #### RNA POLYMR, ANTI TH TO, EVAN, U3 CLOUD SOLUTIONS ARCHITECT, ANTIR, PM-SCL ABS #### [facility] , Globulin (S) [Mass/Vol] 3.5 g/dL Normal [facility] Comment on above: Performed By: #### H EPATIC, CBC, ESR, CRP, CREAT, CK #### [place] [address] [place] #### RNA POLYMR, ANTI TH TO, EVAN, U3 CLOUD SOLUTIONS ARCHITECT, ANTIR, PM-SCL ABS #### [facility] , Protein [Mass/Vol] 7.1 g/dL Normal 6.1-7.9 [facility] Comment on above: Performed By: #### H EPATIC, CBC, ESR, CRP, CREAT, CK #### [facility] [address] [place] [address] #### RNA POLYMR, ANTI TH TO, EVAN, U3 CLOUD SOLUTIONS ARCHITECT, ANTIR, PM-SCL ABS #### [facility] , PM-SCL Antibodieson 06-19-20 22 RAIZA PM-Scl Antibody <20 Normal <20 [facility] Comment on above: Result Comment: This test was developed and its performance characteristics determined by [facility]. It has not been cleared or approved by the Food and Drug Administration. Negative: <20 Weak Positive: 20 - 39 Moderate Positive: 40 - 80 Strong Positive: >80 Performed at: [facility] [address] [place] [address] [id number] Stock Buyer: Artemio Nair MD, Phone: [phone] Performed By: #### C UU, ADDONUAPLUS #### [address] #### C3, C4, CH50 #### [facility] , RNA Polymerase IIion 022 RNA Polymerase IIi <20 Normal <20 [facility] Comment on above: Result Comment: Nega tive: <20 Weak Positive: 20 - 39 Moderate Positive: 40 - 80 Strong Positive: >80 Performed at: [facility] [address] [place] [address] [id number] Stock Buyer: Artemio Nair MD, Phone: [phone] PERFORMED BY: [place] [address] PATHOLOGIST SENIOR DATA MODELER RADHA BULLARD M.D. Performed By: #### C UU, ADDONUAPLUS #### [place] [address] [place] #### C3, C4, CH50 #### [facility] , Th/To Antibodyon 06-19-2022 Th/To Antibody Negative Normal Negative [facility] Comment on above: Result Comment: This test was developed and its performance characteristics determined by [facility]. It has not been cleared or approved by the Food and Drug Administration. Performed at: [facility] [employer] [facility] [address] [place] [address] [phone] Stock Buyer: Artemio Nair MD, Phone: [phone] Performed By: #### C UU, ADDONUAPLUS #### [facility] [address] [place] [address] #### C3, C4, CH50 #### [facility] , U3 Rnpon 06-19-2022 U3 Quad Stayer Negative Normal Negative [facility] Comment on above: Result Comment: This test was developed and its performance characteristics determined by [facility]. It has not been cleared or approved by the Food and Drug Administration. Performed at: [facility] [address] [place] [address] [id number] Stock Buyer: Artemio Nair MD, Phone: [phone] PERFORMED BY: [place] [address] PATHOLOGIST SENIOR DATA MODELER RADHA BULLARD M.D. Performed By: #### C UU, ADDONUAPLUS #### [address] #### C3, C4, CH50 #### [facility] , Urine Cultureon 06-19-2022 Bacteria identified Cx Nom (U) No Growth 2 Days PERFORMED BY: [place] [address] PATHOLOGIST SENIOR DATA MODELER RADHA BULLARD M.D. [facility] Comment on above: Performed By: #### C UU, ADDONUAPLUS #### [address] #### C3, C4, CH50 #### [facility] , PROF CHEM 8 (BAS METB)on Anion gap [Moles/Vol] 12.5 mmol/L Normal [facility] Comment on above: Performed By: #### B MP #### [facility] [address] [address] [address] Reji Thomas Calcium [Mass/Vol] 8.9 mg/dL Normal 8.5-10.1 [facility] Comment on above: Performed By: #### B MP #### [facility] [address] [address] [address] Reji Thomas Chloride [Moles/Vol] 103 mmol/L Normal 98-107 [facility] Comment on above: Performed By: #### B MP #### [facility] [address] [address] [address] Reji Thomas CO2 [Moles/Vol] 26.1 mmol/L Normal 21.0-32.0 [facility] Comment on above: Performed By: #### B MP #### [facility] [address] [place] [address] Dr. Reji Thomas Creatinine [Mass/Vol] 2.09 mg/dL Critically high 0.55-1.02 [facility] Comment on above: Performed By: #### B MP #### [facility] [address] [place] [address] Dr. Reji Thomas EGFR-AF ECUADOREAN 27 mL/min/1.73m2 Critically low >=60 [facility] Comment on above: Performed By: #### B MP #### [facility] [address] [place] [address] Dr. Reji Thomas EGFR-NON AF ECUADOREAN 23 mL/min/1.73m2 Critically low >=60 [facility] Comment on above: Performed By: #### B MP #### [facility] [address] [address] [address] Reji Thomas Glucose [Mass/Vol] 96 mg/dL Normal 74-106 [facility] Comment on above: Performed By: #### B MP #### [facility] [address] [place] [address] Dr. Reji Thomas Potassium [Moles/Vol] 4.6 mmol/L Normal 3.5-5.1 [facility] Comment on above: Performed By: #### B MP #### [facility] [address] [address] [address] Reji Thomas Sodium [Moles/Vol] 137 mmol/L Normal 136-145 [facility] Comment on above: Performed By: #### B MP #### [facility] [address] [address] [address] Reji Thomas Urea nitrogen [Mass/Vol] 38.0 mg/dL Critically high 7.0-18.0 [facility] Comment on above: Performed By: #### B MP #### [facility] [address] [place] [address] Dr. Reji hTomas Urea nitrogen/Creatinine [Mass ratio] 18.2 mg/mg Normal [facility] Comment on above: Performed By: #### B MP #### [facility] [address] [place] [address] Dr. Reji Thomas PROTIMEon 06-04-2022 INR Coag (PPP) [Relative time] 2.51 {INR} Normal [facility] Comment on above: Performed By: #### B FAN BALANCER, CMP, TSH, LIPID #### [facility] [address] [place] [address] Dr. Reji Thomas INR GUIDELINES SEE BELOW Normal [facility] Comment on above: Result Comment: SHY RED INR: 2.0 - 3.0 CONDITIONS NOT LISTED BELOW 2.5 - 3.5 FOR PROSTHETIC HEART VALVE REPLACEMENT 2.5 - 3.5 RECURRENT THROMBOSIS Performed By: #### B FAN BALANCER, CMP, TSH, LIPID #### [facility] [address] [place] [address] Dr. Reji Thomas PT Coag (PPP) [Time] 25.5 s Critically high 9.0-11.6 [facility] Comment on above: Performed By: #### B FAN BALANCER, CMP, TSH, LIPID #### [facility] [address] [place] [address] Dr. Reji Thomas BNPon 05-15-2022 Natriuretic peptide B (Bld) [Mass/Vol] 3661.0 pg/mL Critically high <=1,800.0 [facility] Comment on above: Performed By: #### B FAN BALANCER, CMP, TSH, LIPID #### [facility] [address] [place] [address] Dr. Reji Thomas CBC AUTO DIFFon 05-15-2022 BASO # 0.1 103/ul Normal 0.0-0.1 [facility] Comment on above: Performed By: #### B MP #### [facility] [address] [address] [address] Reji Thomas Basophils/100 WBC (Bld) 1.1 % Normal 0.2-2.0 [facility] Comment on above: Performed By: #### B MP #### [facility] [address] [place] [address] Dr. Reji Thomas EO # 0.5 103/ul Normal 0.0-0.7 [facility] Comment on above: Performed By: #### B MP #### [facility] [address] [place] [address] Dr. Reji Thomas Eosinophils/100 WBC (Bld) 6.5 % Normal 0.9-7.0 [facility] Comment on above: Performed By: #### B MP #### [facility] [address] [place] [address] Dr. Reji Thomas Erythrocyte distribution width (RBC) [Ratio] 16.1 % Critically high 11.0-15.0 [facility] Comment on above: Performed By: #### B MP #### [facility] [address] [place] [address] Dr. Reji Thomas Hematocrit (Bld) [Volume fraction] 35.0 % Critically low 36.0-48.0 [facility] Comment on above: Performed By: #### B MP #### [facility] [address] [place] [address] Dr. Reji Thomas Hemoglobin (Bld) [Mass/Vol] 11.1 g/dL Critically low 12.0-16.0 [facility] Comment on above: Performed By: #### B MP #### [facility] [address] [place] [address] Dr. Reji Thomas IG # 0.02 10e3/ul Normal 0.00-0.03 [facility] Comment on above: Performed By: #### B MP #### [facility] [address] [place] [address] Dr. Reji Thomas IG % 0.3 % Normal 0.0-0.5 [facility] Comment on above: Performed By: #### B MP #### [facility] [address] [place] [address] Dr. Reji Thomas LYMPH # 1.6 103/ul Normal 1.2-3.8 [facility] Comment on above: Performed By: #### B MP #### [facility] [address] [place] [address] Dr. Reji Thomas Lymphocytes/100 WBC (Bld) 22.4 % Normal 20.5-60.0 [facility] Comment on above: Performed By: #### B MP #### [facility] [address] [place] [address] Dr. Reji Thomas MANUAL DIFF REQ NO Normal [facility] Comment on above: Performed By: #### B MP #### [facility] [address] [place] [address] Dr. Reji Thomas MCH (RBC) [Entitic mass] 26.4 pg Critically low 26.7-34.0 [facility] Comment on above: Performed By: #### B MP #### [facility] [address] [place] [address] Dr. Reji Thomas MCHC (RBC) [Mass/Vol] 31.7 g/dL Normal 29.9-35.2 [facility] Comment on above: Performed By: #### B MP #### [facility] [address] [place] [address] Dr. Reji Thomas MCV (RBC) [Entitic vol] 83.1 fL Normal 81.0-99.0 [facility] Comment on above: Performed By: #### B MP #### [facility] [address] [place] [address] Dr. Reji Thomas MONO # 0.9 103/ul Critically high 0.3-0.8 [facility] Comment on above: Performed By: #### B MP #### [facility] [address] [place] [address] Dr. Reji Thomas Monocytes/100 WBC (Bld) 12.1 % Critically high 1.7-12.0 [facility] Comment on above: Performed By: #### B MP #### [facility] [address] [place] [address] Dr. Reji Thomas NEUT # 4.1 103/ul Normal 1.4-6.5 [facility] Comment on above: Performed By: #### B MP #### [facility] [address] [place] [address] Dr. Reji Thomas Neutrophils/100 WBC (Bld) 57.6 % Normal 43.0-75.0 [facility] Comment on above: Performed By: #### B MP #### [facility] [address] [place] [address] Dr. Reji Thomas Platelet mean volume (Bld) [Entitic vol] 8.8 fL Critically low 9.5-13.5 [facility] Comment on above: Performed By: #### B MP #### [facility] [address] [place] [address] Dr. Reji Thomas PLT 253 103/ul Normal 150-450 [facility] Comment on above: Performed By: #### B MP #### [facility] [address] [place] [address] Dr. Reji Thomas RBC 4.21 106/ul Normal 4.20-5.40 [facility] Comment on above: Performed By: #### B MP #### [facility] [address] [place] [address] Dr. Reji Thomas WBC 7.1 103/ul Normal 4.0-11.0 [facility] Comment on above: Performed By: #### B MP #### [facility] [address] [place] [address] Dr. Reji Thomas PROF CHEM 8 (BAS METB)on Anion gap [Moles/Vol] 10.5 mmol/L Normal [facility] Comment on above: Performed By: #### B FAN BALANCER, CMP, TSH, LIPID #### [facility] [address] [address] [address] Reji Thomas Calcium [Mass/Vol] 8.9 mg/dL Normal 8.5-10.1 [facility] Comment on above: Performed By: #### B FAN BALANCER, CMP, TSH, LIPID #### [facility] [address] [address] [address] Reji Thomas Chloride [Moles/Vol] 104 mmol/L Normal 98-107 [facility] Comment on above: Performed By: #### B FAN BALANCER, CMP, TSH, LIPID #### [facility] [address] [address] [address] Reji Thomas CO2 [Moles/Vol] 29.5 mmol/L Normal 21.0-32.0 [facility] Comment on above: Performed By: #### B FAN BALANCER, CMP, TSH, LIPID #### [facility] [address] [place] [address] Dr. Reji Thomas Creatinine [Mass/Vol] 1.73 mg/dL Critically high 0.55-1.02 [facility] Comment on above: Performed By: #### B FAN BALANCER, CMP, TSH, LIPID #### [facility] [address] [place] [address] Dr. Reji Thomas EGFR-AF ECUADOREAN 34 mL/min/1.73m2 Critically low >=60 [facility] Comment on above: Performed By: #### B FAN BALANCER, CMP, TSH, LIPID #### [facility] [address] [place] [address] Dr. Reji Thomas EGFR-NON AF ECUADOREAN 28 mL/min/1.73m2 Critically low >=60 [facility] Comment on above: Performed By: #### B FAN BALANCER, CMP, TSH, LIPID #### [facility] [address] [address] [address] Reji Thomas Glucose [Mass/Vol] 79 mg/dL Normal 74-106 [facility] Comment on above: Performed By: #### B FAN BALANCER, CMP, TSH, LIPID #### [facility] [address] [place] [address] Dr. Reji Thomas Potassium [Moles/Vol] 4.0 mmol/L Normal 3.5-5.1 [facility] Comment on above: Performed By: #### B FAN BALANCER, CMP, TSH, LIPID #### [facility] [address] [place] [address] Dr. Reji Thomas Sodium [Moles/Vol] 140 mmol/L Normal 136-145 [facility] Comment on above: Performed By: #### B FAN BALANCER, CMP, TSH, LIPID #### [facility] [address] [place] [address] Dr. Reji Thomas Urea nitrogen [Mass/Vol] 22.0 mg/dL Critically high 7.0-18.0 [facility] Comment on above: Performed By: #### B FAN BALANCER, CMP, TSH, LIPID #### [facility] [address] [place] [address] Dr. Reji Thomas Urea nitrogen/Creatinine [Mass ratio] 12.7 mg/mg Normal [facility] Comment on above: Performed By: #### B FAN BALANCER, CMP, TSH, LIPID #### [facility] [address] [place] [address] Dr. Reji Thomas PROTIMEon 05-15-2022 INR Coag (PPP) [Relative time] 2.53 {INR} Normal [facility] Comment on above: Performed By: #### B FAN BALANCER, CMP, TSH, LIPID #### [facility] [address] [place] [address] Dr. Reji Thomas INR GUIDELINES SEE BELOW Normal [facility] Comment on above: Result Comment: SHY RED INR: 2.0 - 3.0 CONDITIONS NOT LISTED BELOW 2.5 - 3.5 FOR PROSTHETIC HEART VALVE REPLACEMENT 2.5 - 3.5 RECURRENT THROMBOSIS Performed By: #### B FAN BALANCER, CMP, TSH, LIPID #### [facility] [address] [place] [address] Dr. Reji Thomas PT Coag (PPP) [Time] 25.7 s Critically high 9.0-11.6 [facility] Comment on above: Performed By: #### B FAN BALANCER, CMP, TSH, LIPID #### [facility] [address] [address] [address] Reji Thomas ECHOCARDIO M/2D COMPLETEon 0 05-04-2022 ECHOCARDIO M/2D COMPLETE Patient: INEZ JUAREZ Exam Date: 05/04/2022 : 1940 Gender:F Ordering : DR JENN PRADO M.D. Admission #: [id number] Family : Order #: [id number] CLICK HERE TO VIEW EXAM ECHOCARDIOGRAM REPORT [...] Area(A4C): 27.20 cm2 Left Atrium Systolic Volume(A2C): 648339 mm3 Left Atrium Systolic Volume(A4C): 81863 mm3 Mitral Valve MV E to A Ratio: 2.60 Deceleration Harney: 36819 mm/s2 Mitral Valve A-Wave Peak Velocity: 58.60 [...] Prado M.D. on 05/07/2022 at 11:39 Normal [facility] EVAN by IFAon 04-19-2022 Antinuclear Antibodies, IFA Positive Abnormal [facility] Comment on above: Result Comment: Nega tive <1:80 Borderline 1:80 Positive >1:80 Performed By: #### B FAN BALANCER, CMP, TSH, LIPID #### [facility] [address] [address] [address] Reji Thomas Centriole Pattern Normal [facility] Comment on above: Performed By: #### B FAN BALANCER, CMP, TSH, LIPID #### [facility] [id number] Reji Thomas Centromere Pattern Normal [facility] Comment on above: Performed By: #### B FAN BALANCER, CMP, TSH, LIPID #### [facility] [address] [place], [place] [address] Dr. Reji Thomas Homogeneous Pattern 1:320 Critically high [facility] Comment on above: Result Comment: ICAP nomenclature: AC-1 Performed By: #### B FAN BALANCER, CMP, TSH, LIPID #### [facility] [address] [place], [place] [address] Dr. Reji Thomas Midbody Pattern Normal [facility] Comment on above: Performed By: #### B FAN BALANCER, CMP, TSH, LIPID #### [facility] [address] [place], [place] [address] Dr. Reji Thomas Note: Comment Normal [facility] Comment on above: Result Comment: For more [...] titers Nucleosomes, Histones Drug-induced SLE Speckled Sm, CLOUD SOLUTIONS ARCHITECT, SCL-70, SLE,MCTD,PSS (diffuse form), SS-A/SS-B Sjogrens Nucleolar SCL-70, PM-1/SCL High titers Scleroderma, PM/DM Centromere Centromere PSS (limited form) w/Crest syndrome variable Nuclear Dot [id number] Primary Biliary Cirrhosis Nuclear GP210, Primary Biliary Cirrhosis Membrane eleonora A,B,C Performed By: #### B FAN BALANCER, CMP, TSH, LIPID #### [facility] [address] [place] [address] Dr. Reji Thomas Nuclear Dot Pattern Normal [facility] Comment on above: Performed By: #### B FAN BALANCER, CMP, TSH, LIPID #### [facility] [address] [place] [address] Dr. Reji Thomas Nuclear Membrane Pattern Normal [facility] Comment on above: Performed By: #### B FAN BALANCER, CMP, TSH, LIPID #### [facility] [address] [place] [address] Dr. Reji Thomas Nucleolar Pattern Normal [facility] Comment on above: Performed By: #### B FAN BALANCER, CMP, TSH, LIPID #### [facility] [address] [address] [address] Reji Thomas PCNA Pattern Normal [facility] Comment on above: Performed By: #### B FAN BALANCER, CMP, TSH, LIPID #### [facility] [address] [address] [address] Reji Thomas Speckled Pattern Normal [facility] Comment on above: Performed By: #### B FAN BALANCER, CMP, TSH, LIPID #### [facility] [address] [address] [address] Reji Thomas Spindle Apparatus Pattern Normal [facility] Comment on above: Performed By: #### B FAN BALANCER, CMP, TSH, LIPID #### [facility] [address] [address] [address] Reji Thomas ANCA (ANTINEUTROPHIL CYTOPLA MSMIC ABon 04-18-2022 Atypical pANCA <1:20 Normal Neg:<1:20 [facility] Comment on above: Result Comment: Seru m is slightly hemolyzed The atypical pANCA pattern has been observed in a significant percentage of patients with ulcerative colitis, primary sclerosing cholangitis and autoimmune hepatitis. Performed By: #### B MP #### [facility] [address] [address] [address] Reji Thomas Cytoplasmic (C-ANCA) <1:20 Normal Neg:<1:20 [facility] Comment on above: Result Comment: Seru m is slightly hemolyzed Performed By: #### B MP #### [facility] [address] [address] [address] Reji Thomas Perinuclear (P-ANCA) <1:20 Normal Neg:<1:20 [facility] Comment on above: Result Comment: Seru m is slightly hemolyzed The presence of positive fluorescence exhibiting P-ANCA or C-ANCA patterns alone is not specific for the diagnosis of Arlene's Granulomatosis (WG) or microscopic polyangiitis. Decisions about treatment should not be based solely on ANCA IFA results. The International ANCA Group Consensus recommends follow up testing of positive sera with both MN-3 and MPO-ANCA enzyme immunoassays. As many as 5% serum samples are positive only by EIA. Ref. AM J Clin Pathol 1999;111:507-513. Performed By: #### B MP #### [facility] [address] [place] [address] Dr. Reji Thomas ANTISCLERODERMA ABon 022 Antiscleroderma-70 Antibodies 0.3 AI Normal 0.0-0.9 [facility] Comment on above: Performed By: #### B FAN BALANCER, CMP, TSH, LIPID #### [facility] [address] [place] [address] Dr. Reji Thomas T3 UPTAKEon 04-18-2022 Free Thyroxine Index 1.8 Normal 1.2-4.9 [facility] Comment on above: Performed By: #### B FAN BALANCER, CMP, TSH, LIPID #### [facility] [address] [place] [address] Dr. Reji Thomas T3 Uptake 23 % Critically low 24-39 [facility] Comment on above: Performed By: #### B FAN BALANCER, CMP, TSH, LIPID #### [facility] [address] [place] [address] Dr. Reji Thomas T4 LABCORPon 04-18-2022 T4 [Mass/Vol] 7.8 ug/dL Normal 4.5-12.0 [facility] Comment on above: Performed By: #### B FAN BALANCER, CMP, TSH, LIPID #### [facility] [address] [place] [address] Dr. Reji Thomas BNPon 04-16-2022 Natriuretic peptide B (Bld) [Mass/Vol] 2870.0 pg/mL Critically high <=1,800.0 [facility] Comment on above: Result Comment: repe ated Performed By: #### B FAN BALANCER, CMP, TSH, LIPID #### [facility] [address] [place] [address] Dr. Reji Thomas CBC AUTO DIFFon 04-16-2022 BASO # 0.1 103/ul Normal 0.0-0.1 [facility] Comment on above: Performed By: #### B FAN BALANCER, CMP, TSH, LIPID #### [facility] [address] [place] [address] Dr. Reji Thomas Basophils/100 WBC (Bld) 0.9 % Normal 0.2-2.0 [facility] Comment on above: Performed By: #### B FAN BALANCER, CMP, TSH, LIPID #### [facility] [address] [place] [address] Dr. Reji Thomas EO # 0.3 103/ul Normal 0.0-0.7 [facility] Comment on above: Performed By: #### B FAN BALANCER, CMP, TSH, LIPID #### [facility] [address] [place] [address] Dr. Reji Thomas Eosinophils/100 WBC (Bld) 3.9 % Normal 0.9-7.0 [facility] Comment on above: Performed By: #### B FAN BALANCER, CMP, TSH, LIPID #### [facility] [address] [place] [address] Dr. Reji Thomas Erythrocyte distribution width (RBC) [Ratio] 15.9 % Critically high 11.0-15.0 [facility] Comment on above: Performed By: #### B FAN BALANCER, CMP, TSH, LIPID #### [facility] [address] [place] [address] Dr. Reji Thomas Hematocrit (Bld) [Volume fraction] 38.1 % Normal 36.0-48.0 [facility] Comment on above: Performed By: #### B FAN BALANCER, CMP, TSH, LIPID #### [facility] [address] [place] [address] Dr. Reji Thomas Hemoglobin (Bld) [Mass/Vol] 12.1 g/dL Normal 12.0-16.0 [facility] Comment on above: Performed By: #### B FAN BALANCER, CMP, TSH, LIPID #### [facility] [address] [place] [address] Dr. Reji Thomas IG # 0.02 10e3/ul Normal 0.00-0.03 [facility] Comment on above: Performed By: #### B FAN BALANCER, CMP, TSH, LIPID #### [facility] [address] [place] [address] Dr. Reji Thomas IG % 0.3 % Normal 0.0-0.5 [facility] Comment on above: Performed By: #### B FAN BALANCER, CMP, TSH, LIPID #### [facility] [address] [place] [address] Dr. Reji Thomas LYMPH # 1.6 103/ul Normal 1.2-3.8 [facility] Comment on above: Performed By: #### B FAN BALANCER, CMP, TSH, LIPID #### [facility] [address] [place] [address] Dr. Reji Thomas Lymphocytes/100 WBC (Bld) 22.6 % Normal 20.5-60.0 [facility] Comment on above: Performed By: #### B FAN BALANCER, CMP, TSH, LIPID #### [facility] [address] [place] [address] Dr. Reji Thomas MANUAL DIFF REQ NO Normal [facility] Comment on above: Performed By: #### B FAN BALANCER, CMP, TSH, LIPID #### [facility] [address] [place] [address] Dr. Reji Thomas MCH (RBC) [Entitic mass] 26.5 pg Critically low 26.7-34.0 [facility] Comment on above: Performed By: #### B FAN BALANCER, CMP, TSH, LIPID #### [facility] [address] [place] [address] Dr. Reji Thomas MCHC (RBC) [Mass/Vol] 31.8 g/dL Normal 29.9-35.2 [facility] Comment on above: Performed By: #### B FAN BALANCER, CMP, TSH, LIPID #### [facility] [address] [place] [address] Dr. Reji Thomas MCV (RBC) [Entitic vol] 83.4 fL Normal 81.0-99.0 [facility] Comment on above: Performed By: #### B FAN BALANCER, CMP, TSH, LIPID #### [facility] [address] [place] [address] Dr. Reji Thomas MONO # 0.6 103/ul Normal 0.3-0.8 [facility] Comment on above: Performed By: #### B FAN BALANCER, CMP, TSH, LIPID #### [facility] [address] [place], [place] [id number] Dr. Reji Thomas Monocytes/100 WBC (Bld) 9.3 % Normal 1.7-12.0 [facility] Comment on above: Performed By: #### B FAN BALANCER, CMP, TSH, LIPID #### [facility] [address] [place] [address] Dr. Reji Thomas NEUT # 4.3 103/ul Normal 1.4-6.5 [facility] Comment on above: Performed By: #### B FAN BALANCER, CMP, TSH, LIPID #### [facility] [address] [place] [address] Dr. Reji Thomas Neutrophils/100 WBC (Bld) 63.0 % Normal 43.0-75.0 [facility] Comment on above: Performed By: #### B FAN BALANCER, CMP, TSH, LIPID #### [facility] [address] [place] [address] Dr. Reji Thomas Platelet mean volume (Bld) [Entitic vol] 9.2 fL Critically low 9.5-13.5 [facility] Comment on above: Performed By: #### B FAN BALANCER, CMP, TSH, LIPID #### [facility] [address] [place] [address] Dr. Reji Thomas PLT 211 103/ul Normal 150-450 [facility] Comment on above: Performed By: #### B FAN BALANCER, CMP, TSH, LIPID #### [facility] [address] [place] [address] Dr. Reji Thomas RBC 4.57 106/ul Normal 4.20-5.40 [facility] Comment on above: Performed By: #### B FAN BALANCER, CMP, TSH, LIPID #### [facility] [address] [place] [address] Dr. Reji Thomas WBC 6.9 103/ul Normal 4.0-11.0 [facility] Comment on above: Performed By: #### B FAN BALANCER, CMP, TSH, LIPID #### [facility] [address] [place] [address] Dr. Reji Thomas GLYCOHEMOGLOBIN A1Con 2021 ADA RECOMMENDATION SEE BELOW Normal [facility] Comment on above: Result Comment: ADA RECOMMENDED LIMIT 4.0 - 6.0 ADA THERAPEUTIC TARGET < 7.0 ACTION SUGGESTED > 7.0 Performed By: #### B FAN BALANCER, CMP, TSH, LIPID #### [facility] [address] [address] [address] Reji Thomas Glucose [Mass/Vol] 100 mg/dL Normal [facility] Comment on above: Performed By: #### B FAN BALANCER, CMP, TSH, LIPID #### [facility] [address] [address] [address] Reji Thomas HbA1c (Bld) [Mass fraction] 5.1 % Normal 4.5-6.2 [facility] Comment on above: Performed By: #### B FAN BALANCER, CMP, TSH, LIPID #### [facility] [address] [place] [address] Dr. Reji Thomas IRONon 04-16-2022 Iron [Mass/Vol] 42.0 ug/dL Critically low 50.0-170.[address] [facility] Comment on above: Performed By: #### B FAN BALANCER, CMP, TSH, LIPID #### [facility] [address] [place] [address] Dr. Reji Thomas LIPID PROFILEon 04-16-2022 CHOL-HDL RATIO NORM SEE BELOW Normal [facility] Comment on above: Result Comment: 3.3 - 4.4 LOW RISK 4.4 - 7.1 AVERAGE RISK 7.1 - 11.0 MODERATE RISK >11.0 HIGH RISK Performed By: #### B FAN BALANCER, CMP, TSH, LIPID #### [facility] [address] [address] [address] Reji Thomas Cholesterol [Mass/Vol] 176 mg/dL Normal <=200 [facility] Comment on above: Performed By: #### B FAN BALANCER, CMP, TSH, LIPID #### [facility] [address] [address] [address] Reji Thomas Cholesterol in HDL [Mass/Vol] 52 mg/dL Normal 40-60 [facility] Comment on above: Performed By: #### B FAN BALANCER, CMP, TSH, LIPID #### [facility] [address] [place] [address] Dr. Reji Thomas Cholesterol in LDL [Mass/Vol] 102.8 mg/dL Normal [facility] Comment on above: Performed By: #### B FAN BALANCER, CMP, TSH, LIPID #### [facility] [address] [place] [address] Dr. Reji Thomas Cholesterol.total/Ch olesterol in HDL [Mass ratio] 3.4 {ratio} Normal [facility] Comment on above: Performed By: #### B FAN BALANCER, CMP, TSH, LIPID #### [facility] [address] [place] [address] Dr. Reji Thomas HDL NORMAL > or = 60 mg/dl - LOW CARDIOVASCULAR RISK <40 mg/dl - HIGH CARDIOVASCULAR RISK Normal [facility] Comment on above: Performed By: #### B FAN BALANCER, CMP, TSH, LIPID #### [facility] [address] [place] [address] Dr. Reji Thomas LDL CALC NORMAL SEE BELOW Normal [facility] Comment on above: Result Comment: <100 mg/dl OPTIMAL 100 - 129 mg/dl NEAR OR ABOVE OPTIMAL 130 - 159 mg/dl BORDERLINE HIGH 160 - 189 mg/dl HIGH >190 mg/dl VERY HIGH Performed By: #### B FAN BALANCER, CMP, TSH, LIPID #### [facility] [address] [address] [address] Reji Thomas Triglyceride [Mass/Vol] 106 mg/dL Normal <=150 [facility] Comment on above: Performed By: #### B FAN BALANCER, CMP, TSH, LIPID #### [facility] [address] [place] [address] Dr. Reji Thomas VLDL CALC 21.2 mg/dL Normal [facility] Comment on above: Performed By: #### B FAN BALANCER, CMP, TSH, LIPID #### [facility] [address] [place] [address] Dr. Reji Thomas PROF 14(COMP METB)on 022 Albumin [Mass/Vol] 3.6 g/dL Normal 3.4-5.0 [facility] Comment on above: Performed By: #### B FAN BALANCER, CMP, TSH, LIPID #### [facility] [address] [address] [address] Reji Thomas Albumin/Globulin [Mass ratio] 0.9 {ratio} Normal [facility] Comment on above: Performed By: #### B FAN BALANCER, CMP, TSH, LIPID #### [facility] [address] [place] [address] Dr. Reji Thomas ALP [Catalytic activity/Vol] 62 U/L Normal 46-116 [facility] Comment on above: Performed By: #### B FAN BALANCER, CMP, TSH, LIPID #### [facility] [address] [place] [address] Dr. Reji Thomas ALT [Catalytic activity/Vol] 14 U/L Normal 14-59 [facility] Comment on above: Performed By: #### B FAN BALANCER, CMP, TSH, LIPID #### [facility] [address] [place] [address] Dr. Reji Thomas Anion gap [Moles/Vol] 14.5 mmol/L Normal [facility] Comment on above: Performed By: #### B FAN BALANCER, CMP, TSH, LIPID #### [facility] [address] [place] [address] Dr. Reji Thomas AST [Catalytic activity/Vol] 17 U/L Normal 15-37 [facility] Comment on above: Performed By: #### B FAN BALANCER, CMP, TSH, LIPID #### [facility] [address] [place] [address] Dr. Reji Thomas Bilirubin [Mass/Vol] 0.6 mg/dL Normal 0.2-1.0 [facility] Comment on above: Performed By: #### B FAN BALANCER, CMP, TSH, LIPID #### [facility] [address] [place] [address] Dr. Reji Thomas Calcium [Mass/Vol] 8.8 mg/dL Normal 8.5-10.1 [facility] Comment on above: Performed By: #### B FAN BALANCER, CMP, TSH, LIPID #### [facility] [address] [place] [address] Dr. Reji Thomas Chloride [Moles/Vol] 102 mmol/L Normal 98-107 [facility] Comment on above: Performed By: #### B FAN BALANCER, CMP, TSH, LIPID #### [facility] [address] [place] [address] Dr. Reji Thomas CO2 [Moles/Vol] 26.3 mmol/L Normal 21.0-32.0 [facility] Comment on above: Performed By: #### B FAN BALANCER, CMP, TSH, LIPID #### [facility] [address] [place] [address] Dr. Reji Thomas Creatinine [Mass/Vol] 1.76 mg/dL Critically high 0.55-1.02 [facility] Comment on above: Performed By: #### B FAN BALANCER, CMP, TSH, LIPID #### [facility] [address] [place] [address] Dr. Reji Thomas EGFR-AF ECUADOREAN 33 mL/min/1.73m2 Critically low >=60 [facility] Comment on above: Performed By: #### B FAN BALANCER, CMP, TSH, LIPID #### [facility] [address] [place] [address] Dr. Reji Thomas EGFR-NON AF ECUADOREAN 28 mL/min/1.73m2 Critically low >=60 [facility] Comment on above: Performed By: #### B FAN BALANCER, CMP, TSH, LIPID #### [facility] [address] [place] [address] Dr. Reji Thomas Globulin (S) [Mass/Vol] 4.2 g/dL Normal [facility] Comment on above: Performed By: #### B FAN BALANCER, CMP, TSH, LIPID #### [facility] [address] [place] [address] Dr. Reji Thomas Glucose [Mass/Vol] 81 mg/dL Normal 74-106 [facility] Comment on above: Performed By: #### B FAN BALANCER, CMP, TSH, LIPID #### [facility] [address] [place] [address] Dr. Reji Thomas Potassium [Moles/Vol] 3.8 mmol/L Normal 3.5-5.1 [facility] Comment on above: Performed By: #### B FAN BALANCER, CMP, TSH, LIPID #### [facility] [address] [place] [address] Dr. Reji Thomas Protein [Mass/Vol] 7.8 g/dL Normal 6.4-8.2 [facility] Comment on above: Performed By: #### B FAN BALANCER, CMP, TSH, LIPID #### [facility] [address] [place] [address] Dr. Reji Thomas Sodium [Moles/Vol] 139 mmol/L Normal 136-145 [facility] Comment on above: Performed By: #### B FAN BALANCER, CMP, TSH, LIPID #### [facility] [address] [place] [address] Dr. Reji Thomas Urea nitrogen [Mass/Vol] 27.0 mg/dL Critically high 7.0-18.0 [facility] Comment on above: Performed By: #### B FAN BALANCER, CMP, TSH, LIPID #### [facility] [address] [place] [address] Dr. Reji Thomas Urea nitrogen/Creatinine [Mass ratio] 15.3 mg/mg Normal [facility] Comment on above: Performed By: #### B FAN BALANCER, CMP, TSH, LIPID #### [facility] [address] [place] [address] Dr. Reji Thomas PROTIMEon 04-16-2022 INR Coag (PPP) [Relative time] 1.92 {INR} Normal [facility] Comment on above: Performed By: #### B FAN BALANCER, CMP, TSH, LIPID #### [facility] [address] [place] [address] Dr. Reji Thomas INR GUIDELINES SEE BELOW Normal [facility] Comment on above: Result Comment: SHY RED INR: 2.0 - 3.0 CONDITIONS NOT LISTED BELOW 2.5 - 3.5 FOR PROSTHETIC HEART VALVE REPLACEMENT 2.5 - 3.5 RECURRENT THROMBOSIS Performed By: #### B FAN BALANCER, CMP, TSH, LIPID #### [facility] [address] [place] [address] Dr. Reji Thomas PT Coag (PPP) [Time] 19.9 s Critically high 9.0-11.6 [facility] Comment on above: Performed By: #### B FAN BALANCER, CMP, TSH, LIPID #### [facility] [address] [address] [address] Reji Thomas SED RATE WESTBANNERRENon 2021 SED RATE 37 mm/hr Critically high <=30 [facility] Comment on above: Performed By: #### B FAN BALANCER, CMP, TSH, LIPID #### [facility] [address] [place] [address] Dr. Reji Thomas TSHon 04-16-2022 TSH 1.941 uIU/mL Normal 0.358-3.740 [facility] Comment on above: Performed By: #### B FAN BALANCER, CMP, TSH, LIPID #### [facility] [address] [place] [address] Dr. Reji Thomas TSH RANGE SEE BELOW Normal [facility] Comment on above: Result Comment: <0.3 4 UIU/ml HYPERTHYROID 0.34-5.60 UIU/ml EUTHYROID >5.60 UIU/ml HYPOTHYROID Performed By: #### B FAN BALANCER, CMP, TSH, LIPID #### [facility] [address] [place] [address] Dr. Reji Thomas VITAMIN D 25 OHon 04-16-2022 VIT D 25-OH 56.6 ng/mL Normal [facility] Comment on above: Performed By: #### B FAN BALANCER, CMP, TSH, LIPID #### [facility] [address] [place] [address] Dr. Reji Thomas VIT D RANGES SEE BELOW Normal [facility] Comment on above: Result Comment: <20 ng/mL Vit D deficient 20 - <30 ng/mL Vit D insufficient 30 - 100 ng/mL Vit D sufficient >100 ng/mL Potential Toxicity Performed By: #### B FAN BALANCER, CMP, TSH, LIPID #### [facility] [address] [place] [address] Dr. Reji Thomas Cardiovascular Lab Reporton 11-02-2021 Cardiovascular Lab Report [facility] Patient Name: Inez Juarez MR #: [id number] [facility] Physician: Jenn Prado M.D. Department of Service Date: 11/01/2021 Medicine Birthdate: 1940 Division of Room #: Cardiology Adult Cardiovascular Services [facility] [address] [place] [address] Cardiovascular Laboratory Report INDICATION: The patient is [...] She signed consent. She was brought to custodial laborer in a fasting state. The right neck area was prepped and draped in usual fashion. Micropuncture technique and ultrasound guidance were used for access in the right internal jugular vein. A 6-Austrian x 11 cm sheath was placed. A 6-Austrian Hernández catheter was used for heart catheterization [...] Prado M.D. Date Trans: 11/01/2021 11:22 P/alondra [id number] cc: Bruce Rizvi M.D. [address] [facility] [place] [facility] [id number] Normal [facility] Cardiovascular Lab Reporton 06-02-2021 Cardiovascular Lab Report [facility] Patient Name: Inez Juarez MR #: [id number] [facility] Physician: Jenn Prado M.D. Department of Service Date: 06/02/2021 Medicine Birthdate: 1940 Division of Room #: CC Cardiology Adult Cardiovascular Services [facility] [address] [facility] [place] [address] Cardiovascular Laboratory Report INDICATION: The patient is [...] the informed consent. She was brought to custodial laborer in a fasting state. The right neck area was prepped and draped in usual fashion. Using micropuncture technique and ultrasound guidance, the right internal jugular vein was accessed and a 6-Austrian x 11 cm sheath was placed. A 6-Austrian Hernández catheter was used for heart catheterization [...] Prado M.D. Date Trans: 06/02/2021 02:42 P/alondra [id number] cc: Bruce Rizvi M.D. [address] [facility] [place] [facility] [id number] [facility] Encounters Encounter Date Encounter Type Care Provider Facility Start: 07-03-2024 End: 07-03-2024 ambulatory [facility] Start: 12-13-2023 End: 12-13-2023 ambulatory [facility] Start: 10-30-2023 End: 10-30-2023 ambulatory [facility] Start: 10-22-2023 End: 10-22-2023 ambulatory ANTONY LUIS [facility] Start: 03-22-2023 End: 03-23-[address] [...] Start: 11-01-2021 End: 11-02-2021 ambulatory PROVIDER UNKNOWN Facility:[facility] Start: 06-02-2021 End: 06-03-2021 ambulatory PROVIDER UNKNOWN Facility:[facility] Payers Date Payer Category Payer Medicare [id number] 1961 Medicare [id number] 1961 Medicare [id number] 1961 Self-pay [id number] 1940 Unknown [id number] 2.16.8 [id number] 1940 Unknown [id number] 2.16.8 40.1.687374.3.579.2.647 1938 Unknown [id number] 2.16.84 0.1.051597.3.579.2.593 1938 Unknown [id number] 2.16.84 0.1.183138.3.579.2.593 1938 Unknown [id number] 2.16.84 0.1.998833.3.579.2.593 1938 Unknown [id number] 2.16.84 0.1.898842.3.579.2.593 1938 Unknown [id number] 2.16.84 0.1.078640.3.579.2.593 1938 Unknown [id number] 2.16.84 0.1.745997.3.579.2.593 1938 Unknown [id number] 2.16.84 0.1.992995.3.579.2.593 1938 Unknown [id number] 2.16.84 0.1.509076.3.579.2.593 1938 Unknown [id number] 2.16.84 0.1.470069.3.579.2.593 1938 Unknown [id number] 2.16.84 0.1.089283.3.579.2.593 1938 Unknown [id number] 2.16.84 0.1.903276.3.579.2.593 1938 Unknown [id number] 2.16.84 0.1.620236.3.579.2.593 1938 Unknown [id number] 2.16.84 0.1.704995.3.579.2.593 1938 Unknown [id number] 2.16.84 0.1.127650.3.579.2.593 1938 Unknown [id number] 2.16.84 0.1.733050.3.579.2.593 1938 Unknown [id number] 2.16.84 0.1.430361.3.579.2.593 1938 Unknown [id number] 2.16.84 0.1.019791.3.579.2.593 1938 Unknown [id number] 2.16.84 0.1.727762.3.579.2.593 1938 Unknown [id number] 2.16.84 0.1.482165.3.579.2.593 Private Health Insurance MEB [id number] Progress note 07-03-2024 Note Date & Type Note Facility 07-03-2024 Note [place] [facility] Petrona Juarez is a 84 [...] Pulse 50 Ht (more content not included)... [facility] Progress note 12-13-2023 Note Date & Type Note Facility 12-13-2023 Note [place] [facility] Petrona Juarez is a 83 [...] Nose: Nose james (more content not included)... [facility] Progress note 10-30-2023 Note Date & Type Note Facility 10-30-2023 Note [place] [facility] Subjective Inez Juarez is a [...] Murmur heard. Systol (more content not included)... [facility] Clinical Note 10-22-2023 Note Date & Type Note Facility 10-22-2023 Note Patient: Inez Withe m Procedure Information Date/Time: 10/22/23829 Procedure: Right heart cath Location: [facility] SPECIAL EDUCATOR 3 / [facility] (Cath) Providers: Antony [...] with fellow and attending. Additional Equipment Requests [facility] Clinical Note 10-15-2023 Note Date & Type Note Facility 10-15-[address] Smith regarding warfarin. Dr Smith requested warfarin to be held for 3 days prior to procedure. [facility] Progress note 09-19-2023 Note Date & Type Note Facility 09-19-2023 Note [facility] Summary Purpose Family History No Family History Records FoundNo Family History Records FoundNo Family History Records FoundNo Family History Records Found Advance Directives No Advanced Directives Records FoundNo Advanced Directives Records FoundNo Advanced Directives Records FoundNo Advanced Directives Records Found Additional Source Comments INFORMATION SOURCE (unrecogn ized section and content) DATE CREATED AUTHOR 11/03/2021 [facility] DATE CREATED AUTHOR AUTHOR'S ORGANIZ ATION 07/05/2022 [facility] DATE CREATED AUTHOR AUTHOR'S ORGANIZ ATION 03/23/2023 [facility] DATE CREATED AUTHOR AUTHOR'S ORGANIZ ATION 07/05/2024 [facility] FOR RECORDS PERTAINING TO PATIENTS [...] BE BASED ON THE PRIMARY CLINICAL RECORDS. [facility]. provides no warranty or guarantee of the accuracy or completeness of information in this document.
[2024-08-10 15:46] LABS: INR 1.44; Prothrombin Time 14.7 sec (9.0-11.6)
== END 2024-08-10 15:19 | disposition home or self-care (01) ==
LOC: LAB 15:19
PROVIDERS: PCP Family Medicine; Visit Provider Family Medicine
DX: I48.91 Unspecified atrial fibrillation (principal)
CPT/HCPCS: 36415; 85610

== ENCOUNTER 2024-09-03 13:03 | Outpatient (OUT) | payer MEDICARE, SELFPAY ==
[2024-09-03 13:49] LABS: Prothrombin Time 16.2 sec (9.0-11.6)
== END 2024-09-03 13:04 | disposition home or self-care (01) ==
LOC: LAB 13:08
PROVIDERS: PCP Family Medicine; Visit Provider Family Medicine
DX: I48.91 Unspecified atrial fibrillation (principal)
CPT/HCPCS: 36415; 85610

== ENCOUNTER 2024-10-06 14:00 | Outpatient (OUT) | payer MEDICARE, SELFPAY ==
[2024-10-06 14:38] LABS: INR 2.36
== END 2024-10-06 14:01 | disposition home or self-care (01) ==
LOC: LAB 14:01
PROVIDERS: PCP Family Medicine; Visit Provider Family Medicine
DX: I48.91 Unspecified atrial fibrillation (principal)
CPT/HCPCS: 36415; 85610

== ENCOUNTER 2024-11-09 13:35 | Outpatient (OUT) | payer MEDICARE, SELFPAY ==
[2024-11-09 14:27] LABS: Prothrombin Time 27.7 sec (9.0-11.6)
== END 2024-11-09 13:36 | disposition home or self-care (01) ==
LOC: LAB 13:36
PROVIDERS: PCP Family Medicine; Visit Provider Family Medicine
DX: I48.91 Unspecified atrial fibrillation (principal)
CPT/HCPCS: 36415; 85610

== ENCOUNTER 2024-12-10 15:49 | Outpatient (OUT) | payer MEDICARE, SELFPAY ==
--- OUTSIDE RECORDS SUMMARY | 2024-12-10 15:55 | XMS_ITS | CCD ---
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 Office Visiton 12-13-2023 Follow-up visit [id number] Inez Juarez 1940 Provider Department Center 12/13/2023 JENN AMANDA BARBRA Acuña Family History Problem Relation Age of Onset Hypertension Mother Coronary artery disease Father Hypertension Father Family Status - Relation Status Age at Mother Father Level of Service:29385 LA OFFICE/OUTPATIENT ESTABLISHED MOD MDM [address] [facility] Office Visiton 10-30-2023 Follow-up visit [id number] Inez Juarez 1940 Date Provider Department Center 10/30/2023 JENN AMANDA BARBRA Acuña Family History Problem Relation Age of Onset Hypertension Mother Coronary artery disease Father Hypertension Father Family Status - Relation Status Age at Mother Father Level of Service:29455 LA OFFICE/OUTPATIENT ESTABLISHED MOD MDM [address] [facility] HPon 10-22-2023 History Of Present Illness Inez [...] a past medical history of Atrial fibrillation ([facility]), CHF (congestive heart failure) ([facility]), Chronic kidney disease, GERD (gastroesophageal reflux disease), Heart valve disease, Hyperlipidemia, Hypertension, and Pulmonary hypertension ([facility]). Surgical History She has a [...] Results Reviewed Relevant (more content not included)... [facility] NURSNOTEon 10-22-2023 NURSNOTE RN educated pt on d/c instructions. RN encouraged pt to voice any questions or concerns. Pt verbalizes no questions or concerns at this time. Normal [facility] BNPon 03-22-2023 Natriuretic peptide B (Bld) [Mass/Vol] 1423.0 pg/mL Normal <=1,800.0 [facility] Comment on above: Performed By: #### B QUALITY CONTROL OPERATOR, CMP, TSH, LIPID #### [facility] [address] [place] [address] Dr. Reji Thomas CBC AUTO DIFFon 03-22-2023 BASO # 0.1 103/ul Normal 0.0-0.1 [facility] Comment on above: Performed By: #### B MP #### [facility] [address] [address] [address] Reji Thomas Basophils/100 WBC (Bld) 1.0 % Normal 0.2-2.0 [facility] Comment on above: Performed By: #### B MP #### [facility] [address] [address] [address] Reji Thomas EO # 0.2 103/ul Normal 0.0-0.7 [facility] Comment on above: Performed By: #### B MP #### [facility] [address] [place] [address] Dr. Reji Thomas Eosinophils/100 WBC (Bld) 3.3 % Normal 0.9-7.0 [facility] Comment on above: Performed By: #### B MP #### [facility] [address] [place] [address] Dr. Reji Thomas Erythrocyte distribution width (RBC) [Ratio] 15.4 % Critically high 11.0-15.0 [facility] Comment on above: Performed By: #### B MP #### [facility] [address] [place] [address] Dr. Reji Thomas Hematocrit (Bld) [Volume fraction] 35.2 % Critically low 36.0-48.0 [facility] Comment on above: Performed By: #### B MP #### [facility] [address] [place] [address] Dr. Reji Thomas Hemoglobin (Bld) [Mass/Vol] 11.4 g/dL Critically low 12.0-16.0 [facility] Comment on above: Performed By: #### B MP #### [facility] [address] [place] [address] Dr. Reji Thomas IG # 0.02 10e3/ul Normal 0.00-0.03 [facility] Comment on above: Performed By: #### B MP #### [facility] [address] [place] [address] Dr. Reji Thomas IG % 0.3 % Normal 0.0-0.5 [facility] Comment on above: Performed By: #### B MP #### [facility] [address] [place] [address] Dr. Reji Thomas LYMPH # 1.4 103/ul Normal 1.2-3.8 [facility] Comment on above: Performed By: #### B MP #### [facility] [address] [place] [address] Dr. Reji Thomas Lymphocytes/100 WBC (Bld) 22.6 % Normal 20.5-60.0 [facility] Comment on above: Performed By: #### B MP #### [facility] [address] [place] [address] Dr. Reji Thomas MANUAL DIFF REQ NO Normal [facility] Comment on above: Performed By: #### B MP #### [facility] [address] [place] [address] Dr. Reji Thomas MCH (RBC) [Entitic mass] 27.0 pg Normal 26.7-34.0 [facility] Comment on above: Performed By: #### B MP #### [facility] [address] [place] [address] Dr. Reji Thomas MCHC (RBC) [Mass/Vol] 32.4 g/dL Normal 29.9-35.2 [facility] Comment on above: Performed By: #### B MP #### [facility] [address] [place] [address] Dr. Reji Thomas MCV (RBC) [Entitic vol] 83.2 fL Normal 81.0-99.0 [facility] Comment on above: Performed By: #### B MP #### [facility] [address] [place] [address] Dr. Reji Thomas MONO # 0.5 103/ul Normal 0.3-0.8 [facility] Comment on above: Performed By: #### B MP #### [facility] [address] [place] [address] Dr. Reji Thomas Monocytes/100 WBC (Bld) 8.5 % Normal 1.7-12.0 [facility] Comment on above: Performed By: #### B MP #### [facility] [address] [place] [address] Dr. Reji Thomas NEUT # 4.0 103/ul Normal 1.4-6.5 [facility] Comment on above: Performed By: #### B MP #### [facility] [address] [place] [address] Dr. Reji Thomas Neutrophils/100 WBC (Bld) 64.3 % Normal 43.0-75.0 [facility] Comment on above: Performed By: #### B MP #### [facility] [address] [place] [address] Dr. Reji Thomas Platelet mean volume (Bld) [Entitic vol] 8.9 fL Critically low 9.5-13.5 [facility] Comment on above: Performed By: #### B MP #### [facility] [address] [address] [address] Reji Thomas PLT 226 103/ul Normal 150-450 [facility] Comment on above: Performed By: #### B MP #### [facility] [address] [address] [address] Reji Thomas RBC 4.23 106/ul Normal 4.20-5.40 [facility] Comment on above: Performed By: #### B MP #### [facility] [address] [address] [address] Reji Thomas WBC 6.3 103/ul Normal 4.0-11.0 [facility] Comment on above: Performed By: #### B MP #### [facility] [address] [address] [address] Reji Thomas FREE THYROXINE INDEX T7on FTI 2.40 Normal 1.30-4.50 [facility] Comment on above: Performed By: #### B QUALITY CONTROL OPERATOR, CMP, TSH, LIPID #### [facility] [address] [place] [address] Dr. Reji Thomas T3U 32.0 % Normal 30.0-39.0 [facility] Comment on above: Performed By: #### B QUALITY CONTROL OPERATOR, CMP, TSH, LIPID #### [facility] [address] [place] [address] Dr. Reji Thomas T4 [Mass/Vol] 7.50 ug/dL Normal 4.80-13.90 [facility] Comment on above: Performed By: #### B QUALITY CONTROL OPERATOR, CMP, TSH, LIPID #### [facility] [address] [place] [address] Dr. Reji Thomas GLYCOHEMOGLOBIN A1Con 2022 ADA RECOMMENDATION SEE BELOW Normal [facility] Comment on above: Result Comment: ADA RECOMMENDED LIMIT 4.0 - 6.0 ADA THERAPEUTIC TARGET < 7.0 ACTION SUGGESTED > 7.0 Performed By: #### B QUALITY CONTROL OPERATOR, CMP, TSH, LIPID #### [facility] [address] [address] [address] Reji Thomas Glucose [Mass/Vol] 97 mg/dL Normal [facility] Comment on above: Performed By: #### B QUALITY CONTROL OPERATOR, CMP, TSH, LIPID #### [facility] [address] [address] [address] Reji Thomas HbA1c (Bld) [Mass fraction] 5.0 % Normal 4.5-6.2 [facility] Comment on above: Performed By: #### B QUALITY CONTROL OPERATOR, CMP, TSH, LIPID #### [facility] [address] [address] [address] Reji Thomas IRONon 03-22-2023 Iron [Mass/Vol] 47.0 ug/dL Critically low 50.0-170.0 [facility] Comment on above: Performed By: #### B QUALITY CONTROL OPERATOR, CMP, TSH, LIPID #### [facility] [address] [place] [address] Dr. Reji Thomas LIPID PROFILEon 03-22-2023 CHOL-HDL RATIO NORM SEE BELOW Normal [facility] Comment on above: Result Comment: 3.3 - 4.4 LOW RISK 4.4 - 7.1 AVERAGE RISK 7.1 - 11.0 MODERATE RISK >11.0 HIGH RISK Performed By: #### M G, TSH, LIPID, T7, CMP, BNP #### [facility] [address] [address] [address] Reji Thomas Cholesterol [Mass/Vol] 188 mg/dL Normal <=200 [facility] Comment on above: Performed By: #### M G, TSH, LIPID, T7, CMP, BNP #### [facility] [address] [address] [address] Reji Thomas Cholesterol in HDL [Mass/Vol] 53 mg/dL Normal 40-60 [facility] Comment on above: Performed By: #### M G, TSH, LIPID, T7, CMP, BNP #### [facility] [address] [address] [address] Reji Thomas Cholesterol in LDL [Mass/Vol] 111.6 mg/dL Normal [facility] Comment on above: Performed By: #### M G, TSH, LIPID, T7, CMP, BNP #### [facility] [address] [address] [address] Reji Thomas Cholesterol.total/Ch olesterol in HDL [Mass ratio] 3.5 {ratio} Normal [facility] Comment on above: Performed By: #### M G, TSH, LIPID, T7, CMP, BNP #### [facility] [address] [address] [address] Reji Thomas HDL NORMAL > or = 60 mg/dl - LOW CARDIOVASCULAR RISK <40 mg/dl - HIGH CARDIOVASCULAR RISK Normal [facility] Comment on above: Performed By: #### M G, TSH, LIPID, T7, CMP, BNP #### [facility] [address] [place] [address] Dr. Reji Thomas LDL CALC NORMAL SEE BELOW Normal [facility] Comment on above: Result Comment: <100 mg/dl OPTIMAL 100 - 129 mg/dl NEAR OR ABOVE OPTIMAL 130 - 159 mg/dl BORDERLINE HIGH 160 - 189 mg/dl HIGH >190 mg/dl VERY HIGH Performed By: #### M G, TSH, LIPID, T7, CMP, BNP #### [facility] [address] [address] [address] Reji Thomas Triglyceride [Mass/Vol] 117 mg/dL Normal <=150 [facility] Comment on above: Performed By: #### M G, TSH, LIPID, T7, CMP, BNP #### [facility] [address] [address] [address] Reji Thomas VLDL CALC 23.4 mg/dL Normal [facility] Comment on above: Performed By: #### M G, TSH, LIPID, T7, CMP, BNP #### [facility] [address] [address] [address] Reji Thomas MAGNESIUMon 03-22-2023 Magnesium [Mass/Vol] 2.4 mg/dL Normal 1.8-2.4 [facility] Comment on above: Performed By: #### B QUALITY CONTROL OPERATOR, CMP, TSH, LIPID #### [facility] [address] [place] [address] Dr. Reji Thomas PROF 14(COMP METB)on 023 Albumin [Mass/Vol] 3.4 g/dL Normal 3.4-5.0 [facility] Comment on above: Performed By: #### M G, TSH, LIPID, T7, CMP, BNP #### [facility] [address] [place] [address] Dr. Reji Thomas Albumin/Globulin [Mass ratio] 0.8 {ratio} Normal [facility] Comment on above: Performed By: #### M G, TSH, LIPID, T7, CMP, BNP #### [facility] [address] [place] [address] Dr. Reji Thomas ALP [Catalytic activity/Vol] 61 U/L Normal 46-116 [facility] Comment on above: Performed By: #### M G, TSH, LIPID, T7, CMP, BNP #### [facility] [address] [place] [address] Dr. Reji Thomas ALT [Catalytic activity/Vol] 15 U/L Normal 14-59 [facility] Comment on above: Performed By: #### M G, TSH, LIPID, T7, CMP, BNP #### [facility] [address] [place] [address] Dr. Reji Thomas Anion gap [Moles/Vol] 13.1 mmol/L Normal [facility] Comment on above: Performed By: #### M G, TSH, LIPID, T7, CMP, BNP #### [facility] [address] [place] [address] Dr. Reji Thomas AST [Catalytic activity/Vol] 13 U/L Critically low 15-37 [facility] Comment on above: Performed By: #### M G, TSH, LIPID, T7, CMP, BNP #### [facility] [address] [place] [address] Dr. Reji Thomas Bilirubin [Mass/Vol] 0.4 mg/dL Normal 0.2-1.0 [facility] Comment on above: Performed By: #### M G, TSH, LIPID, T7, CMP, BNP #### [facility] [address] [place] [address] Dr. Reji Thomas Calcium [Mass/Vol] 8.5 mg/dL Normal 8.5-10.1 [facility] Comment on above: Performed By: #### M G, TSH, LIPID, T7, CMP, BNP #### [facility] [address] [place] [address] Dr. Reji Thomas Chloride [Moles/Vol] 106 mmol/L Normal 98-107 [facility] Comment on above: Performed By: #### M G, TSH, LIPID, T7, CMP, BNP #### [facility] [address] [place] [address] Dr. Reji Thomas CO2 [Moles/Vol] 27.6 mmol/L Normal 21.0-32.0 [facility] Comment on above: Performed By: #### M G, TSH, LIPID, T7, CMP, BNP #### [facility] [address] [place] [address] Dr. Reji Thomas Creatinine [Mass/Vol] 2.32 mg/dL Critically high 0.55-1.02 [facility] Comment on above: Performed By: #### M G, TSH, LIPID, T7, CMP, BNP #### [facility] [address] [place] [address] Dr. Reji Thomas EGFR-AF ERITREAN 24 mL/min/1.73m2 Critically low >=60 [facility] Comment on above: Performed By: #### M G, TSH, LIPID, T7, CMP, BNP #### [facility] [address] [place] [address] Dr. Reji Thomas EGFR-NON AF ERITREAN 20 mL/min/1.73m2 Critically low >=60 [facility] Comment on above: Performed By: #### M G, TSH, LIPID, T7, CMP, BNP #### [facility] [address] [place] [address] Dr. Reji Thomas Globulin (S) [Mass/Vol] 4.3 g/dL Normal [facility] Comment on above: Performed By: #### M G, TSH, LIPID, T7, CMP, BNP #### [facility] [address] [address] [address] Reji Thomas Glucose [Mass/Vol] 88 mg/dL Normal 74-106 [facility] Comment on above: Performed By: #### M G, TSH, LIPID, T7, CMP, BNP #### [facility] [address] [address] [address] Reji Thomas Potassium [Moles/Vol] 4.7 mmol/L Normal 3.5-5.1 [facility] Comment on above: Performed By: #### M G, TSH, LIPID, T7, CMP, BNP #### [facility] [address] [address] [address] Reji Thomas Protein [Mass/Vol] 7.7 g/dL Normal 6.4-8.2 [facility] Comment on above: Performed By: #### M G, TSH, LIPID, T7, CMP, BNP #### [facility] [address] [place] [address] Dr. Reji Thomas Sodium [Moles/Vol] 142 mmol/L Normal 136-145 [facility] Comment on above: Performed By: #### M G, TSH, LIPID, T7, CMP, BNP #### [facility] [address] [address] [address] Reji Thomas Urea nitrogen [Mass/Vol] 38.0 mg/dL Critically high 7.0-18.0 [facility] Comment on above: Performed By: #### M G, TSH, LIPID, T7, CMP, BNP #### [facility] [address] [place] [address] Dr. Reji Thomas Urea nitrogen/Creatinine [Mass ratio] 16.4 mg/mg Normal [facility] Comment on above: Performed By: #### M G, TSH, LIPID, T7, CMP, BNP #### [facility] [address] [place] [address] Dr. Reji Thomas PROTIMEon 03-22-2023 INR Coag (PPP) [Relative time] 1.98 {INR} Normal [facility] Comment on above: Performed By: #### P T #### [facility] [address] [place] [address] Dr. Reji Thomas INR GUIDELINES SEE BELOW Normal [facility] Comment on above: Result Comment: SHY RED INR: 2.0 - 3.0 CONDITIONS NOT LISTED BELOW 2.5 - 3.5 FOR PROSTHETIC HEART VALVE REPLACEMENT 2.5 - 3.5 RECURRENT THROMBOSIS Performed By: #### P T #### [facility] [address] [place] [address] Dr. Reji Thomas PT Coag (PPP) [Time] 20.2 s Critically high 9.0-11.6 [facility] Comment on above: Performed By: #### P T #### [facility] [address] [place] [address] Dr. Reji Thomas TSHon 03-22-2023 TSH 2.265 uIU/mL Normal 0.358-3.740 [facility] Comment on above: Performed By: #### B QUALITY CONTROL OPERATOR, CMP, TSH, LIPID #### [facility] [address] [place] [address] Dr. Reji Thomas VITAMIN D 25 OHon 03-22-2023 VIT D 25-OH 53.1 ng/mL Normal [facility] Comment on above: Performed By: #### B MP #### [facility] [address] [place] [address] Dr. Reji Thomas VIT D RANGES SEE BELOW Normal [facility] Comment on above: Result Comment: <20 ng/mL Vit D deficient 20 - <30 ng/mL Vit D insufficient 30 - 100 ng/mL Vit D sufficient >100 ng/mL Potential Toxicity Performed By: #### B MP #### [facility] [address] [place] [address] Dr. Reji Thomas PROTIMEon 02-22-2023 INR Coag (PPP) [Relative time] 2.22 {INR} Normal [facility] Comment on above: Performed By: #### B QUALITY CONTROL OPERATOR, CMP, TSH, LIPID #### [facility] [address] [place] [address] Dr. Reji Thomas INR GUIDELINES SEE BELOW Normal [facility] Comment on above: Result Comment: SHY RED INR: 2.0 - 3.0 CONDITIONS NOT LISTED BELOW 2.5 - 3.5 FOR PROSTHETIC HEART VALVE REPLACEMENT 2.5 - 3.5 RECURRENT THROMBOSIS Performed By: #### B QUALITY CONTROL OPERATOR, CMP, TSH, LIPID #### [facility] [address] [place] [address] Dr. Reji Thomas PT Coag (PPP) [Time] 22.5 s Critically high 9.0-11.6 [facility] Comment on above: Performed By: #### B QUALITY CONTROL OPERATOR, CMP, TSH, LIPID #### [facility] [address] [place] [address] Dr. Reji Thomas PROTIMEon 01-03-2023 INR Coag (PPP) [Relative time] 2.53 {INR} Normal [facility] Comment on above: Performed By: #### B MP #### [facility] [address] [place] [address] Dr. Reji Thomas INR GUIDELINES SEE BELOW Normal [facility] Comment on above: Result Comment: SHY RED INR: 2.0 - 3.0 CONDITIONS NOT LISTED BELOW 2.5 - 3.5 FOR PROSTHETIC HEART VALVE REPLACEMENT 2.5 - 3.5 RECURRENT THROMBOSIS Performed By: #### B MP #### [facility] [address] [place] [address] Dr. Reji Thomas PT Coag (PPP) [Time] 25.4 s Critically high 9.0-11.6 [facility] Comment on above: Performed By: #### B MP #### [facility] [address] [place] [address] Dr. Reji Thomas PROTIMEon 11-23-2022 INR Coag (PPP) [Relative time] 1.71 {INR} Normal [facility] Comment on above: Performed By: #### B QUALITY CONTROL OPERATOR, CMP, TSH, LIPID #### [facility] [address] [place] [address] Dr. Reji Thomas INR GUIDELINES SEE BELOW Normal [facility] Comment on above: Result Comment: SHY RED INR: 2.0 - 3.0 CONDITIONS NOT LISTED BELOW 2.5 - 3.5 FOR PROSTHETIC HEART VALVE REPLACEMENT 2.5 - 3.5 RECURRENT THROMBOSIS Performed By: #### B QUALITY CONTROL OPERATOR, CMP, TSH, LIPID #### [facility] [address] [place] [address] Dr. Reji Thomas PT Coag (PPP) [Time] 17.6 s Critically high 9.0-11.6 [facility] Comment on above: Performed By: #### B QUALITY CONTROL OPERATOR, CMP, TSH, LIPID #### [facility] [address] [place] [address] Dr. Reji Thomas PROTIMEon 10-10-2022 INR Coag (PPP) [Relative time] 2.52 {INR} Normal [facility] Comment on above: Performed By: #### B QUALITY CONTROL OPERATOR, CMP, TSH, LIPID #### [facility] [address] [place] [address] Dr. Reji Thomas INR GUIDELINES SEE BELOW Normal [facility] Comment on above: Result Comment: SHY RED INR: 2.0 - 3.0 CONDITIONS NOT LISTED BELOW 2.5 - 3.5 FOR PROSTHETIC HEART VALVE REPLACEMENT 2.5 - 3.5 RECURRENT THROMBOSIS Performed By: #### B QUALITY CONTROL OPERATOR, CMP, TSH, LIPID #### [facility] [address] [place] [address] Dr. Reji Thomas PT Coag (PPP) [Time] 25.6 s Critically high 9.0-11.6 [facility] Comment on above: Performed By: #### B QUALITY CONTROL OPERATOR, CMP, TSH, LIPID #### [facility] [address] [place] [address] Dr. Reji Thomas PROTIMEon 09-05-2022 INR Coag (PPP) [Relative time] 2.03 {INR} Normal [facility] Comment on above: Performed By: #### B QUALITY CONTROL OPERATOR, CMP, TSH, LIPID #### [facility] [address] [place] [address] Dr. Reji hTomas INR GUIDELINES SEE BELOW Normal [facility] Comment on above: Result Comment: SHY RED INR: 2.0 - 3.0 CONDITIONS NOT LISTED BELOW 2.5 - 3.5 FOR PROSTHETIC HEART VALVE REPLACEMENT 2.5 - 3.5 RECURRENT THROMBOSIS Performed By: #### B QUALITY CONTROL OPERATOR, CMP, TSH, LIPID #### [facility] [address] [place] [address] Dr. Reji Thomas PT Coag (PPP) [Time] 20.9 s Critically high 9.0-11.6 [facility] Comment on above: Performed By: #### B QUALITY CONTROL OPERATOR, CMP, TSH, LIPID #### [facility] [address] [place] [address] Dr. Reji Thomas BNPon 08-10-2022 Natriuretic peptide B (Bld) [Mass/Vol] 1162.0 pg/mL Normal <=1,800.0 [facility] Comment on above: Performed By: #### B MP, BNP #### [facility] [facility] [address] [place] [address] Dr. Reji Thomas PROF CHEM 8 (BAS METB)on Anion gap [Moles/Vol] 11.3 mmol/L [facility] Comment on above: Performed By: #### B MP, BNP #### [facility] [address] [place] [address] Dr. Reji Thomas Calcium [Mass/Vol] 8.9 mg/dL Normal 8.5-10.1 [facility] Comment on above: Performed By: #### B MP, BNP #### [facility] [address] [place] [address] Dr. Reji Thomas Chloride [Moles/Vol] 103 mmol/L Normal 98-107 [facility] Comment on above: Performed By: #### B MP, BNP #### [facility] [address] [place] [address] Dr. Reji Thomas CO2 [Moles/Vol] 28.2 mmol/L Normal 21.0-32.0 [facility] Comment on above: Performed By: #### B MP, BNP #### [facility] [address] [place] [address] Dr. Reji Thomas Creatinine [Mass/Vol] 2.07 mg/dL Critically high 0.55-1.02 [facility] Comment on above: Performed By: #### B MP, BNP #### [facility] [address] [place] [address] Dr. Reji Thomas EGFR-AF ERITREAN 28 mL/min/1.73m2 Critically low >=60 [facility] Comment on above: Performed By: #### B MP, BNP #### [facility] [address] [address] [address] Reji Thomas EGFR-NON AF ERITREAN 23 mL/min/1.73m2 Critically low >=60 [facility] Comment on above: Performed By: #### B MP, BNP #### [facility] [address] [address] [address] Reji Thomas Glucose [Mass/Vol] 88 mg/dL Normal 74-106 [facility] Comment on above: Performed By: #### B MP, BNP #### [facility] [address] [place] [address] Dr. Reji Thomas Potassium [Moles/Vol] 4.5 mmol/L Normal 3.5-5.1 [facility] Comment on above: Performed By: #### B MP, BNP #### [facility] [address] [place] [address] Dr. Reji Thomas Sodium [Moles/Vol] 138 mmol/L Normal 136-145 [facility] Comment on above: Performed By: #### B MP, BNP #### [facility] [address] [place] [address] Dr. Reji Thomas Urea nitrogen [Mass/Vol] 35.0 mg/dL Critically high 7.0-18.0 [facility] Comment on above: Performed By: #### B MP, BNP #### [facility] [address] [place] [address] Dr. Reji Thomas Urea nitrogen/Creatinine [Mass ratio] 16.9 mg/mg Normal [facility] Comment on above: Performed By: #### B MP, BNP #### [facility] [address] [place] [address] Dr. Reji Thomas PROTIMEon 08-09-2022 INR Coag (PPP) [Relative time] 2.04 {INR} Normal [facility] Comment on above: Performed By: #### B QUALITY CONTROL OPERATOR, CMP, TSH, LIPID #### [facility] [address] [place] [address] Dr. Reji Thomas INR GUIDELINES SEE BELOW Normal [facility] Comment on above: Result Comment: SHY RED INR: 2.0 - 3.0 CONDITIONS NOT LISTED BELOW 2.5 - 3.5 FOR PROSTHETIC HEART VALVE REPLACEMENT 2.5 - 3.5 RECURRENT THROMBOSIS Performed By: #### B QUALITY CONTROL OPERATOR, CMP, TSH, LIPID #### [facility] [address] [place] [address] Dr. Reji Thomas PT Coag (PPP) [Time] 21.0 s Critically high 9.0-11.6 [facility] Comment on above: Performed By: #### B QUALITY CONTROL OPERATOR, CMP, TSH, LIPID #### [facility] [address] [place] [address] Dr. Reji Thomas BNPon 07-09-2022 Natriuretic peptide B (Bld) [Mass/Vol] 2085.0 pg/mL Critically high <=1,800.0 [facility] Comment on above: Result Comment: CRIT ICAL CALLED TO OFFICE ON 07-10-22 AT 0850 BY AR Performed By: #### B QUALITY CONTROL OPERATOR, CMP, TSH, LIPID #### [facility] [address] [place] [address] Dr. Reji Thomas PROF CHEM 8 (BAS METB)on Anion gap [Moles/Vol] 13.7 mmol/L [facility] Comment on above: Performed By: #### B QUALITY CONTROL OPERATOR, CMP, TSH, LIPID #### [facility] [address] [place] [address] Dr. Reji Thomas Calcium [Mass/Vol] 8.3 mg/dL Critically low 8.5-10.1 [facility] Comment on above: Performed By: #### B QUALITY CONTROL OPERATOR, CMP, TSH, LIPID #### [facility] [address] [place] [address] Dr. Reji Thomas Chloride [Moles/Vol] 104 mmol/L Normal 98-107 [facility] Comment on above: Performed By: #### B QUALITY CONTROL OPERATOR, CMP, TSH, LIPID #### [facility] [address] [place] [address] Dr. Reji Thomas CO2 [Moles/Vol] 26.6 mmol/L Normal 21.0-32.0 [facility] Comment on above: Performed By: #### B QUALITY CONTROL OPERATOR, CMP, TSH, LIPID #### [facility] [address] [address] [address] Reji Thomas Creatinine [Mass/Vol] 1.98 mg/dL Critically high 0.55-1.02 [facility] Comment on above: Performed By: #### B QUALITY CONTROL OPERATOR, CMP, TSH, LIPID #### [facility] [address] [address] [address] Reji Thomas EGFR-AF ERITREAN 29 mL/min/1.73m2 Critically low >=60 [facility] Comment on above: Performed By: #### B QUALITY CONTROL OPERATOR, CMP, TSH, LIPID #### [facility] [address] [place] [address] Dr. Reji Thomas EGFR-NON AF ERITREAN 24 mL/min/1.73m2 Critically low >=60 [facility] Comment on above: Performed By: #### B QUALITY CONTROL OPERATOR, CMP, TSH, LIPID #### [facility] [address] [address] [address] Reji Thomas Glucose [Mass/Vol] 116 mg/dL Critically high 74-106 [facility] Comment on above: Performed By: #### B QUALITY CONTROL OPERATOR, CMP, TSH, LIPID #### [facility] [address] [address] [address] Reji Thomas Potassium [Moles/Vol] 4.3 mmol/L Normal 3.5-5.1 [facility] Comment on above: Performed By: #### B QUALITY CONTROL OPERATOR, CMP, TSH, LIPID #### [facility] [address] [address] [address] Reji Thomas Sodium [Moles/Vol] 140 mmol/L Normal 136-145 [facility] Comment on above: Performed By: #### B QUALITY CONTROL OPERATOR, CMP, TSH, LIPID #### [facility] [address] [address] [address] Reji Thomas Urea nitrogen [Mass/Vol] 35.0 mg/dL Critically high 7.0-18.0 [facility] Comment on above: Performed By: #### B QUALITY CONTROL OPERATOR, CMP, TSH, LIPID #### [facility] [address] [address] [address] Reji Thomas Urea nitrogen/Creatinine [Mass ratio] 17.7 mg/mg Normal [facility] Comment on above: Performed By: #### B QUALITY CONTROL OPERATOR, CMP, TSH, LIPID #### [facility] [address] [place] [address] Dr. Reji Thomas PROTIMEon 07-09-2022 INR Coag (PPP) [Relative time] 2.99 {INR} Normal [facility] Comment on above: Performed By: #### B QUALITY CONTROL OPERATOR, CMP, TSH, LIPID #### [facility] [address] [place] [address] Dr. Reji Thomas INR GUIDELINES SEE BELOW Normal [facility] Comment on above: Result Comment: HSY RED INR: 2.0 - 3.0 CONDITIONS NOT LISTED BELOW 2.5 - 3.5 FOR PROSTHETIC HEART VALVE REPLACEMENT 2.5 - 3.5 RECURRENT THROMBOSIS Performed By: #### B QUALITY CONTROL OPERATOR, CMP, TSH, LIPID #### [facility] [address] [place] [address] Dr. Reji Thomas PT Coag (PPP) [Time] 30.1 s Critically high 9.0-11.6 [facility] Comment on above: Performed By: #### B QUALITY CONTROL OPERATOR, CMP, TSH, LIPID #### [facility] [address] [place] [address] Dr. Reji Thomas US KIDNEYSon 07-06-2022 US [...] by: SIGRID RICHMOND Date: 2022-07-06 13:31 [facility] EVAN Antinuclear Antibodieson 06-19-2022 Antinuclear Abs, IFA Positive Critically abnormal . [facility] Comment on above: Result Comment: Nega tive <1:80 Borderline 1:80 Positive >1:80 Performed By: #### Krista CHOW ADDONUAPLUS #### [facility] [address] [place] [address] #### C3, C4, CH50 #### [facility] , Homogeneous Pattern 1:320 High . [facility] Comment on above: Result Comment: ICAP nomenclature: [id number] Performed By: #### Krista CHOW ADDONUAPLUS #### [facility] [address] [place] [address] #### C3, C4, CH50 #### [facility] , Note 1 Normal . [facility] Comment on above: Result Comment: For more [...] titers Nucleosomes, Histones Drug-induced SLE Speckled Sm, THERMO CEMENTING FOLDER OPERATOR, SCL-70, SLE,MCTD,PSS (diffuse form), SS-A/SS-B Sjogrens Nucleolar SCL-70, PM-1/SCL High titers Scleroderma, PM/DM Centromere Centromere PSS (limited form) w/Crest syndrome variable Nuclear Dot [id number] Primary Biliary Cirrhosis Nuclear GP210, Primary Biliary Cirrhosis Membrane eleonora A,B,C Performed at: [facility] [id number] Putty And Patch Worker: Demarcus Lawton PhD, Phone: [phone] Performed By: #### C UU, ADDONUAPLUS #### [address] #### C3, C4, CH50 #### [facility] , Anti-RNPon 06-19-2022 Anti-THERMO CEMENTING FOLDER OPERATOR 0.4 Normal 0.0-0.9 [facility] Comment on above: Result Comment: Perf ormed at: [address] [id number] Putty And Patch Worker: Demarcus Lawton PhD, Phone: [phone] Performed By: #### C UU, ADDONUAPLUS #### [address] #### C3, C4, CH50 #### [facility] , C-Reactive Proteinon 022 C-Reactive Protein 2.0 mg/dL High 0.0-1.0 [facility] Comment on above: Result Comment: PERF ORMED BY: [place] [address] PATHOLOGIST FAMILY INDEPENDENCE CASE MANAGER RADHA BULLARD M.D. Performed By: #### C UU, ADDONUAPLUS #### [address] #### C3, C4, CH50 #### [facility] , Complement C3on 06-19-2022 Complement C3 167 mg/dL Normal 82-167 [facility] Comment on above: Result Comment: Perf ormed at: [address] [id number] Putty And Patch Worker: Demarcus Lawton PhD, Phone: [phone] Performed By: #### C UU, ADDONUAPLUS #### [address] #### C3, C4, CH50 #### [facility] , Complement C4on 06-19-2022 Complement C4 37 mg/dL Normal 12-38 [facility] Comment on above: Performed By: #### C GERALDO ADDONUAPLUS #### [address] #### C3, C4, CH50 #### [facility] , Complement Total (CH50)on Complement Total (CH50) >60 Normal >41 [facility] Comment on above: Result Comment: Age Male [...] determine out of range values. Performed at: [facility] [id number] Putty And Patch Worker: Demarcus Lawton PhD, Phone: [phone] PERFORMED BY: [place] [address] PATHOLOGIST FAMILY INDEPENDENCE CASE MANAGER RADHA BULLARD M.D. Performed By: #### C COURTNEY CHOWONUAPLUS #### [address] #### C3, C4, CH50 #### [facility] , Complete Blood Count Auto Di ffon 06-19-2022 Basophils (Bld) [#/Vol] 0.1 10*3/uL Normal 0.0-0.2 [facility] Comment on above: Performed By: #### H EPATIC, CBC, ESR, CRP, CREAT, CK #### [facility] [address] [place] [address] #### RNA POLYMR, ANTI TH TO, EVAN, U3 THERMO CEMENTING FOLDER OPERATOR, ANTIR, PM-SCL ABS #### [facility] , Basophils/100 WBC (Bld) 0.9 % Normal . [facility] Comment on above: Performed By: #### H EPATIC, CBC, ESR, CRP, CREAT, CK #### [place] [address] [place] #### RNA POLYMR, ANTI TH TO, EVAN, U3 THERMO CEMENTING FOLDER OPERATOR, ANTIR, PM-SCL ABS #### [facility] , Eosinophils (Bld) [#/Vol] 0.5 10*3/uL High 0.0-0.45 [facility] Comment on above: Performed By: #### H EPATIC, CBC, ESR, CRP, CREAT, CK #### [place] [address] [place] #### RNA POLYMR, ANTI TH TO, EVAN, U3 THERMO CEMENTING FOLDER OPERATOR, ANTIR, PM-SCL ABS #### [facility] , Eosinophils/100 WBC (Bld) 8.6 % Normal . [facility] Comment on above: Performed By: #### H EPATIC, CBC, ESR, CRP, CREAT, CK #### [place] [address] [place] #### RNA POLYMR, ANTI TH TO, EVAN, U3 THERMO CEMENTING FOLDER OPERATOR, ANTIR, PM-SCL ABS #### [facility] , Erythrocyte distribution width (RBC) [Ratio] 19.6 % High 11.9-15.3 [facility] Comment on above: Performed By: #### H EPATIC, CBC, ESR, CRP, CREAT, CK #### [place] [address] [place] #### RNA POLYMR, ANTI TH TO, EVAN, U3 THERMO CEMENTING FOLDER OPERATOR, ANTIR, PM-SCL ABS #### [facility] , Hematocrit (Bld) [Volume fraction] 33.8 % Low 34.0-46.4 [facility] Comment on above: Performed By: #### H EPATIC, CBC, ESR, CRP, CREAT, CK #### [place] [address] [place] #### RNA POLYMR, ANTI TH TO, EVAN, U3 THERMO CEMENTING FOLDER OPERATOR, ANTIR, PM-SCL ABS #### [facility] , Hemoglobin (Bld) [Mass/Vol] 10.9 g/dL Low 11.8-15.4 [facility] Comment on above: Performed By: #### H EPATIC, CBC, ESR, CRP, CREAT, CK #### [facility] [address] [place] [address] [place] #### RNA POLYMR, ANTI TH TO, EVAN, U3 THERMO CEMENTING FOLDER OPERATOR, ANTIR, PM-SCL ABS #### [facility] , Lymphocytes (Bld) [#/Vol] 1.1 10*3/uL Normal 1.00-4.8 [facility] Comment on above: Performed By: #### H EPATIC, CBC, ESR, CRP, CREAT, CK #### [place] [address] [place] #### RNA POLYMR, ANTI TH TO, EVAN, U3 THERMO CEMENTING FOLDER OPERATOR, ANTIR, PM-SCL ABS #### [facility] , Lymphocytes/100 WBC (Bld) 17.8 % Normal . [facility] Comment on above: Performed By: #### H EPATIC, CBC, ESR, CRP, CREAT, CK #### [place] [address] [place] #### RNA POLYMR, ANTI TH TO, EVAN, U3 THERMO CEMENTING FOLDER OPERATOR, ANTIR, PM-SCL ABS #### [facility] , MCH (RBC) [Entitic mass] 26.4 pg Normal 24.7-34.3 [facility] Comment on above: Performed By: #### H EPATIC, CBC, ESR, CRP, CREAT, CK #### [facility] [address] [place] [address] [place] #### RNA POLYMR, ANTI TH TO, EVAN, U3 THERMO CEMENTING FOLDER OPERATOR, ANTIR, PM-SCL ABS #### [facility] , MCV (RBC) [Entitic vol] 81.8 fL Normal 80-100 [facility] Comment on above: Performed By: #### H EPATIC, CBC, ESR, CRP, CREAT, CK #### [place] [address] [place] #### RNA POLYMR, ANTI TH TO, EVAN, U3 THERMO CEMENTING FOLDER OPERATOR, ANTIR, PM-SCL ABS #### [facility] , Mean Corpuscular HGB Conc 32.3 g/dL Normal 32.0-35.0 [facility] Comment on above: Performed By: #### H EPATIC, CBC, ESR, CRP, CREAT, CK #### [address] #### RNA POLYMR, ANTI TH TO, EVAN, U3 THERMO CEMENTING FOLDER OPERATOR, ANTIR, PM-SCL ABS #### [facility] , Monocytes (Bld) [#/Vol] 0.4 10*3/uL Normal 0.0-0.8 [facility] Comment on above: Performed By: #### H EPATIC, CBC, ESR, CRP, CREAT, CK #### [place] [address] [place] #### RNA POLYMR, ANTI TH TO, EVAN, U3 THERMO CEMENTING FOLDER OPERATOR, ANTIR, PM-SCL ABS #### [facility] , Monocytes/100 WBC (Bld) 7.4 % Normal . [facility] Comment on above: Performed By: #### H EPATIC, CBC, ESR, CRP, CREAT, CK #### [facility] [address] [place] [address] [place] #### RNA POLYMR, ANTI TH TO, EVAN, U3 THERMO CEMENTING FOLDER OPERATOR, ANTIR, PM-SCL ABS #### [facility] , Neutrophils (Bld) [#/Vol] 3.9 10*3/uL Normal 1.8-7.7 [facility] Comment on above: Performed By: #### H EPATIC, CBC, ESR, CRP, CREAT, CK #### [place] [address] [place] #### RNA POLYMR, ANTI TH TO, EVAN, U3 THERMO CEMENTING FOLDER OPERATOR, ANTIR, PM-SCL ABS #### [facility] , Neutrophils/100 WBC (Bld) 65.3 % Normal . [facility] Comment on above: Performed By: #### H EPATIC, CBC, ESR, CRP, CREAT, CK #### [address] #### RNA POLYMR, ANTI TH TO, EVAN, U3 THERMO CEMENTING FOLDER OPERATOR, ANTIR, PM-SCL ABS #### [facility] , Nucleated RBC/100 WBC (Bld) [Ratio] 0.0 % Normal 0-0.5 [facility] Comment on above: Performed By: #### H EPATIC, CBC, ESR, CRP, CREAT, CK #### [address] #### RNA POLYMR, ANTI TH TO, EVAN, U3 THERMO CEMENTING FOLDER OPERATOR, ANTIR, PM-SCL ABS #### [facility] , Platelet mean volume (Bld) [Entitic vol] 7.2 fL Normal 6.3-10.7 [facility] Comment on above: Performed By: #### H EPATIC, CBC, ESR, CRP, CREAT, CK #### [place] [address] [place] #### RNA POLYMR, ANTI TH TO, EVAN, U3 THERMO CEMENTING FOLDER OPERATOR, ANTIR, PM-SCL ABS #### [facility] , Platelets (Bld) [#/Vol] 237 10*3/uL Normal 150-450 [facility] Comment on above: Performed By: #### H EPATIC, CBC, ESR, CRP, CREAT, CK #### [facility] [address] [place] [address] [place] #### RNA POLYMR, ANTI TH TO, EVAN, U3 THERMO CEMENTING FOLDER OPERATOR, ANTIR, PM-SCL ABS #### [facility] , RBC (Bld) [#/Vol] 4.14 10*6/uL Normal 3.60-5.00 [facility] Comment on above: Performed By: #### H EPATIC, CBC, ESR, CRP, CREAT, CK #### [facility] [address] [place] [address] #### RNA POLYMR, ANTI TH TO, EVAN, U3 THERMO CEMENTING FOLDER OPERATOR, ANTIR, PM-SCL ABS #### [facility] , WBC (Bld) [#/Vol] 6.0 10*3/uL Normal 4.5-11.0 [facility] Comment on above: Performed By: #### H EPATIC, CBC, ESR, CRP, CREAT, CK #### [facility] [address] [place] [address] #### RNA POLYMR, ANTI TH TO, EVAN, U3 THERMO CEMENTING FOLDER OPERATOR, ANTIR, PM-SCL ABS #### [facility] , Creatine Kinaseon 06-19-2022 CK [Catalytic activity/Vol] 38 U/L Normal 22-269 [facility] Comment on above: Result Comment: PERF ORMED BY: [place] [id number] PATHOLOGIST FAMILY INDEPENDENCE CASE MANAGER RADHA BULLARD M.D. Performed By: #### H EPATIC, CBC, ESR, CRP, CREAT, CK #### [address] #### RNA POLYMR, ANTI TH TO, EVAN, U3 THERMO CEMENTING FOLDER OPERATOR, ANTIR, PM-SCL ABS #### [facility] , Creatinineon 06-19-2022 Creatinine [Mass/Vol] 2.82 mg/dL High 0.44-1.03 [facility] Comment on above: Performed By: #### H EPATIC, CBC, ESR, CRP, CREAT, CK #### [facility] [address] [place] [address] [place] #### RNA POLYMR, ANTI TH TO, EVAN, U3 THERMO CEMENTING FOLDER OPERATOR, ANTIR, PM-SCL ABS #### [facility] , Estimated GFR ( Oralia 19 Normal [facility] Comment on above: Result Comment: GFR estimated reference range: According to KDOQI guidelines, <60 ml/min/1.73m2 is sufficient to diagnose a patient with chronic kidney disease. Performed By: #### H EPATIC, CBC, ESR, CRP, CREAT, CK #### [address] #### RNA POLYMR, ANTI TH TO, EVAN, U3 THERMO CEMENTING FOLDER OPERATOR, ANTIR, PM-SCL ABS #### [facility] , Estimated GFR (Non- Am 16 Normal [facility] Comment on above: Performed By: #### H EPATIC, CBC, ESR, CRP, CREAT, CK #### [address] #### RNA POLYMR, ANTI TH TO, EVAN, U3 THERMO CEMENTING FOLDER OPERATOR, ANTIR, PM-SCL ABS #### [facility] , Dipstick and Microscopicon 0 06-19-2022 Appearance (U) Cloudy Critically abnormal Clear [facility] Comment on above: Order Comment: Name Collection Type:: Clean-Voided Midstream Performed By: #### C UU, ADDONUAPLUS #### [address] #### C3, C4, CH50 #### [facility] , Bacteria,Urine 1+ High None Seen [facility] Comment on above: Order Comment: Name Collection Type:: Clean-Voided Midstream Performed By: #### C UU, ADDONUAPLUS #### [address] #### C3, C4, CH50 #### [facility] , Bilirubin,Urine Negative Normal Negative [facility] Comment on above: Order Comment: Name Collection Type:: Clean-Voided Midstream Performed By: #### C UU, ADDONUAPLUS #### [address] #### C3, C4, CH50 #### [facility] , Color (U) Yellow Normal Yellow [facility] Comment on above: Order Comment: Name Collection Type:: Clean-Voided Midstream Performed By: #### C UU, ADDONUAPLUS #### [address] #### C3, C4, CH50 #### [facility] , Glucose Ql (U) Normal Normal Normal [facility] Comment on above: Order Comment: Name Collection Type:: Clean-Voided Midstream Performed By: #### C UU, ADDONUAPLUS #### [address] #### C3, C4, CH50 #### [facility] , Hyaline Casts,Urine 1-2 Normal 0-8 [facility] Comment on above: Order Comment: Name Collection Type:: Clean-Voided Midstream Result Comment: PERF ORMED BY: [place] [id number] PATHOLOGIST FAMILY INDEPENDENCE CASE MANAGER RADHA BULLARD M.D. Performed By: #### C UU, ADDONUAPLUS #### [address] #### C3, C4, CH50 #### [facility] , Ketones Ql (U) Negative Normal Negative [facility] Comment on above: Order Comment: Name Collection Type:: Clean-Voided Midstream Performed By: #### C UU, ADDONUAPLUS #### [address] #### C3, C4, CH50 #### [facility] , Leukocyte esterase Test strip Ql (U) 4+ High Negative [facility] Comment on above: Order Comment: Name Collection Type:: Clean-Voided Midstream Performed By: #### C UU, ADDONUAPLUS #### [address] #### C3, C4, CH50 #### [facility] , Nitrite,Urine Negative Normal Negative [facility] Comment on above: Order Comment: Name Collection Type:: Clean-Voided Midstream Performed By: #### C UU, ADDONUAPLUS #### [address] #### C3, C4, CH50 #### [facility] , Occult Blood,Urine 1+ High Negative [facility] Comment on above: Order Comment: Name Collection Type:: Clean-Voided Midstream Performed By: #### C UU, ADDONUAPLUS #### [address] #### C3, C4, CH50 #### [facility] , pH (U) 6.5 [pH] Normal 5.0-9.0 [facility] Comment on above: Order Comment: Name Collection Type:: Clean-Voided Midstream Performed By: #### C UU, ADDONUAPLUS #### [address] #### C3, C4, CH50 #### [facility] , Protein,Urine Trace High Negative [facility] Comment on above: Order Comment: Name Collection Type:: Clean-Voided Midstream Performed By: #### C UU, ADDONUAPLUS #### [facility] [address] [place] [address] #### C3, C4, CH50 #### [facility] , RBC,Urine 1-2 Normal 0-4 [facility] Comment on above: Order Comment: Name Collection Type:: Clean-Voided Midstream Performed By: #### C UU, ADDONUAPLUS #### [address] #### C3, C4, CH50 #### [facility] , Specificy Orondo,Urine 1.010 Normal 1.001-1.030 [facility] Comment on above: Order Comment: Name Collection Type:: Clean-Voided Midstream Performed By: #### C UU, ADDONUAPLUS #### [address] #### C3, C4, CH50 #### [facility] , Squamous Epithelial Cell,Urine 5-9 High 0-2 [facility] Comment on above: Order Comment: Name Collection Type:: Clean-Voided Midstream Performed By: #### C UU, ADDONUAPLUS #### [address] #### C3, C4, CH50 #### [facility] , Urobilinogen,Urine Normal Normal Normal [facility] Comment on above: Order Comment: Name Collection Type:: Clean-Voided Midstream Performed By: #### C UU, ADDONUAPLUS #### [address] #### C3, C4, CH50 #### [facility] , WBC,Urine Innumerable High 0-4 [facility] Comment on above: Order Comment: Name Collection Type:: Clean-Voided Midstream Performed By: #### C UU, ADDONUAPLUS #### [address] #### C3, C4, CH50 #### [facility] , Erythrocyte Sedimentation Ra pratik 06-19-2022 ESR (Bld) [Velocity] 57 mm/h High 0-29 [facility] Comment on above: Result Comment: PERF ORMED BY: [place] [address] PATHOLOGIST FAMILY INDEPENDENCE CASE MANAGER RADHA BULLARD M.D. Performed By: #### H EPATIC, CBC, ESR, CRP, CREAT, CK #### [address] #### RNA POLYMR, ANTI TH TO, EVAN, U3 THERMO CEMENTING FOLDER OPERATOR, ANTIR, PM-SCL ABS #### [facility] , Hepatic Panelon 06-19-2022 Albumin [Mass/Vol] 3.6 g/dL Normal 3.2-5.5 [facility] Comment on above: Performed By: #### H EPATIC, CBC, ESR, CRP, CREAT, CK #### [facility] [address] [place] [address] #### RNA POLYMR, ANTI TH TO, EVAN, U3 THERMO CEMENTING FOLDER OPERATOR, ANTIR, PM-SCL ABS #### [facility] , Albumin/Globulin [Mass ratio] 1.0 {ratio} Normal [facility] Comment on above: Performed By: #### H EPATIC, CBC, ESR, CRP, CREAT, CK #### [facility] [address] [place] [address] #### RNA POLYMR, ANTI TH TO, EVAN, U3 THERMO CEMENTING FOLDER OPERATOR, ANTIR, PM-SCL ABS #### [facility] , ALP [Catalytic activity/Vol] 68 U/L Normal 32-92 [facility] Comment on above: Performed By: #### H EPATIC, CBC, ESR, CRP, CREAT, CK #### [facility] [address] [place] [address] [place] #### RNA POLYMR, ANTI TH TO, EVAN, U3 THERMO CEMENTING FOLDER OPERATOR, ANTIR, PM-SCL ABS #### [facility] , ALT [Catalytic activity/Vol] 9 U/L Low 10-60 [facility] Comment on above: Performed By: #### H EPATIC, CBC, ESR, CRP, CREAT, CK #### [facility] [address] [place] [address] [place] #### RNA POLYMR, ANTI TH TO, EVAN, U3 THERMO CEMENTING FOLDER OPERATOR, ANTIR, PM-SCL ABS #### [facility] , AST [Catalytic activity/Vol] 15 U/L Normal 10-42 [facility] Comment on above: Performed By: #### H EPATIC, CBC, ESR, CRP, CREAT, CK #### [place] [address] [place] #### RNA POLYMR, ANTI TH TO, EVAN, U3 THERMO CEMENTING FOLDER OPERATOR, ANTIR, PM-SCL ABS #### [facility] , Bilirubin [Mass/Vol] 0.6 mg/dL Normal 0.3-1.2 [facility] Comment on above: Performed By: #### H EPATIC, CBC, ESR, CRP, CREAT, CK #### [place] [address] [place] #### RNA POLYMR, ANTI TH TO, EVAN, U3 THERMO CEMENTING FOLDER OPERATOR, ANTIR, PM-SCL ABS #### [facility] , Bilirubin,Indirect 0.4 mg/dL Normal [facility] Comment on above: Performed By: #### H EPATIC, CBC, ESR, CRP, CREAT, CK #### [place] [address] [place] #### RNA POLYMR, ANTI TH TO, EVAN, U3 THERMO CEMENTING FOLDER OPERATOR, ANTIR, PM-SCL ABS #### [facility] , Bilirubin.indirect [Mass/Vol] 0.2 mg/dL Normal 0.0-0.4 [facility] Comment on above: Performed By: #### H EPATIC, CBC, ESR, CRP, CREAT, CK #### [address] #### RNA POLYMR, ANTI TH TO, EVAN, U3 THERMO CEMENTING FOLDER OPERATOR, ANTIR, PM-SCL ABS #### [facility] , Globulin (S) [Mass/Vol] 3.5 g/dL Normal [facility] Comment on above: Performed By: #### H EPATIC, CBC, ESR, CRP, CREAT, CK #### [place] [address] [place] #### RNA POLYMR, ANTI TH TO, EVAN, U3 THERMO CEMENTING FOLDER OPERATOR, ANTIR, PM-SCL ABS #### [facility] , Protein [Mass/Vol] 7.1 g/dL Normal 6.1-7.9 [facility] Comment on above: Performed By: #### H EPATIC, CBC, ESR, CRP, CREAT, CK #### [facility] [address] [place] [address] #### RNA POLYMR, ANTI TH TO, EVAN, U3 THERMO CEMENTING FOLDER OPERATOR, ANTIR, PM-SCL ABS #### [facility] , PM-SCL Antibodieson 06-19-20 22 RAIZA PM-Scl Antibody <20 Normal <20 [facility] Comment on above: Result Comment: This test was developed and its performance characteristics determined by [facility]. It has not been cleared or approved by the Food and Drug Administration. Negative: <20 Weak Positive: 20 - 39 Moderate Positive: 40 - 80 Strong Positive: >80 Performed at: [facility] [address] [place] [address] [id number] Putty And Patch Worker: Artemio Nair MD, Phone: [phone] Performed By: #### C UU, ADDONUAPLUS #### [address] #### C3, C4, CH50 #### [facility] , RNA Polymerase IIion 022 RNA Polymerase IIi <20 Normal <20 [facility] Comment on above: Result Comment: Nega tive: <20 Weak Positive: 20 - 39 Moderate Positive: 40 - 80 Strong Positive: >80 Performed at: [facility] [facility] [facility] [address] [place] [address] [id number] Putty And Patch Worker: Artemio Nair MD, Phone: [phone] PERFORMED BY: [place] [address] PATHOLOGIST FAMILY INDEPENDENCE CASE MANAGER RADHA BULLARD M.D. Performed By: #### C UU, ADDONUAPLUS #### [place] [address] [place] #### C3, C4, CH50 #### [facility] , Th/To Antibodyon 06-19-2022 Th/To Antibody Negative Normal Negative [facility] Comment on above: Result Comment: This test was developed and its performance characteristics determined by [facility]. It has not been cleared or approved by the Food and Drug Administration. Performed at: [facility] [address] [place] [address] [id number] Putty And Patch Worker: Artemio Nair MD, Phone: [phone] Performed By: #### C UU, ADDONUAPLUS #### [facility] [address] [place] [address] #### C3, C4, CH50 #### [facility] , U3 Rnpon 06-19-2022 U3 Bisque Finisher Negative Normal Negative [facility] Comment on above: Result Comment: This test was developed and its performance characteristics determined by [facility]. It has not been cleared or approved by the Food and Drug Administration. Performed at: [facility] [address] [place] [address] [id number] Putty And Patch Worker: Artemio Nair MD, Phone: [phone] PERFORMED BY: [place] [address] PATHOLOGIST FAMILY INDEPENDENCE CASE MANAGER RADHA BULLARD M.D. Performed By: #### C UU, ADDONUAPLUS #### [address] #### C3, C4, CH50 #### [facility] , Urine Cultureon 06-19-2022 Bacteria identified Cx Nom (U) No Growth 2 Days PERFORMED BY: [place] [address] PATHOLOGIST FAMILY INDEPENDENCE CASE MANAGER RADHA BULLARD M.D. [facility] Comment on above: Performed By: #### C UU, ADDONUAPLUS #### [address] #### C3, C4, CH50 #### [facility] , PROF CHEM 8 (BAS METB)on Anion gap [Moles/Vol] 12.5 mmol/L Normal [facility] Comment on above: Performed By: #### B MP #### [facility] [address] [address] [address] Reji Thomas Calcium [Mass/Vol] 8.9 mg/dL Normal 8.5-10.1 [facility] Comment on above: Performed By: #### B MP #### [facility] [address] [address] [address] Reji Thomas Chloride [Moles/Vol] 103 mmol/L Normal 98-107 [facility] Comment on above: Performed By: #### B MP #### [facility] [address] [address] [address] Reji Thomas CO2 [Moles/Vol] 26.1 mmol/L Normal 21.0-32.0 [facility] Comment on above: Performed By: #### B MP #### [facility] [address] [place] [address] Dr. Reji Thomas Creatinine [Mass/Vol] 2.09 mg/dL Critically high 0.55-1.02 [facility] Comment on above: Performed By: #### B MP #### [facility] [address] [place] [address] Dr. Reji Thomas EGFR-AF ERITREAN 27 mL/min/1.73m2 Critically low >=60 [facility] Comment on above: Performed By: #### B MP #### [facility] [address] [place] [address] Dr. Reji Thomas EGFR-NON AF ERITREAN 23 mL/min/1.73m2 Critically low >=60 [facility] Comment on above: Performed By: #### B MP #### [facility] [address] [address] [address] Reji Thomas Glucose [Mass/Vol] 96 mg/dL Normal 74-106 [facility] Comment on above: Performed By: #### B MP #### [facility] [address] [place] [address] Dr. Reji Thomas Potassium [Moles/Vol] 4.6 mmol/L Normal 3.5-5.1 [facility] Comment on above: Performed By: #### B MP #### [facility] [address] [address] [address] Reji Thomas Sodium [Moles/Vol] 137 mmol/L Normal 136-145 [facility] Comment on above: Performed By: #### B MP #### [facility] [address] [address] [address] Reji Thomas Urea nitrogen [Mass/Vol] 38.0 mg/dL Critically high 7.0-18.0 [facility] Comment on above: Performed By: #### B MP #### [facility] [address] [place] [address] Dr. Reji Thomas Urea nitrogen/Creatinine [Mass ratio] 18.2 mg/mg Normal [facility] Comment on above: Performed By: #### B MP #### [facility] [address] [place] [address] Dr. Reji Thomas PROTIMEon 06-04-2022 INR Coag (PPP) [Relative time] 2.51 {INR} Normal [facility] Comment on above: Performed By: #### B QUALITY CONTROL OPERATOR, CMP, TSH, LIPID #### [facility] [address] [place] [address] Dr. Reji Thomas INR GUIDELINES SEE BELOW Normal [facility] Comment on above: Result Comment: SHY RED INR: 2.0 - 3.0 CONDITIONS NOT LISTED BELOW 2.5 - 3.5 FOR PROSTHETIC HEART VALVE REPLACEMENT 2.5 - 3.5 RECURRENT THROMBOSIS Performed By: #### B QUALITY CONTROL OPERATOR, CMP, TSH, LIPID #### [facility] [address] [place] [address] Dr. Reji Thomas PT Coag (PPP) [Time] 25.5 s Critically high 9.0-11.6 [facility] Comment on above: Performed By: #### B QUALITY CONTROL OPERATOR, CMP, TSH, LIPID #### [facility] [address] [place] [address] Dr. Reji Thomas BNPon 05-15-2022 Natriuretic peptide B (Bld) [Mass/Vol] 3661.0 pg/mL Critically high <=1,800.0 [facility] Comment on above: Performed By: #### B QUALITY CONTROL OPERATOR, CMP, TSH, LIPID #### [facility] [address] [place] [address] Dr. Reji Thomas CBC AUTO DIFFon 05-15-2022 BASO # 0.1 103/ul Normal 0.0-0.1 [facility] Comment on above: Performed By: #### B MP #### [facility] [address] [address] [address] Reji Thomas Basophils/100 WBC (Bld) 1.1 % Normal 0.2-2.0 [facility] Comment on above: Performed By: #### B MP #### [facility] [address] [place] [address] Dr. Reji Thomas EO # 0.5 103/ul Normal 0.0-0.7 [facility] Comment on above: Performed By: #### B MP #### [facility] [address] [place] [address] Dr. Reji Thomas Eosinophils/100 WBC (Bld) 6.5 % Normal 0.9-7.0 [facility] Comment on above: Performed By: #### B MP #### [facility] [address] [place] [address] Dr. Reji Thomas Erythrocyte distribution width (RBC) [Ratio] 16.1 % Critically high 11.0-15.0 [facility] Comment on above: Performed By: #### B MP #### [facility] [address] [place] [address] Dr. Reji Thomas Hematocrit (Bld) [Volume fraction] 35.0 % Critically low 36.0-48.0 [facility] Comment on above: Performed By: #### B MP #### [facility] [address] [place] [address] Dr. Reji Thomas Hemoglobin (Bld) [Mass/Vol] 11.1 g/dL Critically low 12.0-16.0 [facility] Comment on above: Performed By: #### B MP #### [facility] [address] [place] [address] Dr. Reji Thomas IG # 0.02 10e3/ul Normal 0.00-0.03 [facility] Comment on above: Performed By: #### B MP #### [facility] [address] [place] [address] Dr. Reji Thomas IG % 0.3 % Normal 0.0-0.5 [facility] Comment on above: Performed By: #### B MP #### [facility] [address] [place] [address] Dr. Reji Thomas LYMPH # 1.6 103/ul Normal 1.2-3.8 [facility] Comment on above: Performed By: #### B MP #### [facility] [address] [place] [address] Dr. Reji Thomas Lymphocytes/100 WBC (Bld) 22.4 % Normal 20.5-60.0 [facility] Comment on above: Performed By: #### B MP #### [facility] [address] [place] [address] Dr. Reji Thomas MANUAL DIFF REQ NO Normal [facility] Comment on above: Performed By: #### B MP #### [facility] [address] [place] [address] Dr. Reji Thomas MCH (RBC) [Entitic mass] 26.4 pg Critically low 26.7-34.0 [facility] Comment on above: Performed By: #### B MP #### [facility] [address] [place] [address] Dr. Reji Thomas MCHC (RBC) [Mass/Vol] 31.7 g/dL Normal 29.9-35.2 [facility] Comment on above: Performed By: #### B MP #### [facility] [address] [place] [address] Dr. Reji Thomas MCV (RBC) [Entitic vol] 83.1 fL Normal 81.0-99.0 [facility] Comment on above: Performed By: #### B MP #### [facility] [address] [place] [address] Dr. Reji Thomas MONO # 0.9 103/ul Critically high 0.3-0.[address] [facility] Comment on above: Performed By: #### B MP #### [facility] [address] [place] [address] Dr. Reji Thomas Monocytes/100 WBC (Bld) 12.1 % Critically high 1.7-12.0 [facility] Comment on above: Performed By: #### B MP #### [facility] [address] [place] [address] Dr. Reji Thomas NEUT # 4.1 103/ul Normal 1.4-6.5 [facility] Comment on above: Performed By: #### B MP #### [facility] [address] [place] [address] Dr. Reji Thomas Neutrophils/100 WBC (Bld) 57.6 % Normal 43.0-75.0 [facility] Comment on above: Performed By: #### B MP #### [facility] [address] [place] [address] Dr. Reji Thomas Platelet mean volume (Bld) [Entitic vol] 8.8 fL Critically low 9.5-13.5 [facility] Comment on above: Performed By: #### B MP #### [facility] [address] [place] [address] Dr. Reji Thomas PLT 253 103/ul Normal 150-450 [facility] Comment on above: Performed By: #### B MP #### [facility] [address] [place] [address] Dr. Reji Thomas RBC 4.21 106/ul Normal 4.20-5.40 [facility] Comment on above: Performed By: #### B MP #### [facility] [address] [place] [address] Dr. Reji Thomas WBC 7.1 103/ul Normal 4.0-11.0 [facility] Comment on above: Performed By: #### B MP #### [facility] [address] [place] [address] Dr. Reji Thomas PROF CHEM 8 (BAS METB)on Anion gap [Moles/Vol] 10.5 mmol/L Normal [facility] Comment on above: Performed By: #### B QUALITY CONTROL OPERATOR, CMP, TSH, LIPID #### [facility] [address] [address] [address] Reji Thomas Calcium [Mass/Vol] 8.9 mg/dL Normal 8.5-10.1 [facility] Comment on above: Performed By: #### B QUALITY CONTROL OPERATOR, CMP, TSH, LIPID #### [facility] [address] [address] [address] Reji Thomas Chloride [Moles/Vol] 104 mmol/L Normal 98-107 [facility] Comment on above: Performed By: #### B QUALITY CONTROL OPERATOR, CMP, TSH, LIPID #### [facility] [address] [address] [address] Reji Thomas CO2 [Moles/Vol] 29.5 mmol/L Normal 21.0-32.0 [facility] Comment on above: Performed By: #### B QUALITY CONTROL OPERATOR, CMP, TSH, LIPID #### [facility] [address] [place] [address] Dr. Reji Thomas Creatinine [Mass/Vol] 1.73 mg/dL Critically high 0.55-1.02 [facility] Comment on above: Performed By: #### B QUALITY CONTROL OPERATOR, CMP, TSH, LIPID #### [facility] [address] [place] [address] Dr. Reji Thomas EGFR-AF ERITREAN 34 mL/min/1.73m2 Critically low >=60 [facility] Comment on above: Performed By: #### B QUALITY CONTROL OPERATOR, CMP, TSH, LIPID #### [facility] [address] [place] [address] Dr. Reji Thomas EGFR-NON AF ERITREAN 28 mL/min/1.73m2 Critically low >=60 [facility] Comment on above: Performed By: #### B QUALITY CONTROL OPERATOR, CMP, TSH, LIPID #### [facility] [address] [address] [address] Reji Thomas Glucose [Mass/Vol] 79 mg/dL Normal 74-106 [facility] Comment on above: Performed By: #### B QUALITY CONTROL OPERATOR, CMP, TSH, LIPID #### [facility] [address] [place] [address] Dr. Reji Thomas Potassium [Moles/Vol] 4.0 mmol/L Normal 3.5-5.1 [facility] Comment on above: Performed By: #### B QUALITY CONTROL OPERATOR, CMP, TSH, LIPID #### [facility] [address] [place] [address] Dr. Reji Thomas Sodium [Moles/Vol] 140 mmol/L Normal 136-145 [facility] Comment on above: Performed By: #### B QUALITY CONTROL OPERATOR, CMP, TSH, LIPID #### [facility] [address] [place] [address] Dr. Reji Thomas Urea nitrogen [Mass/Vol] 22.0 mg/dL Critically high 7.0-18.0 [facility] Comment on above: Performed By: #### B QUALITY CONTROL OPERATOR, CMP, TSH, LIPID #### [facility] [address] [place] [address] Dr. Reji Thomas Urea nitrogen/Creatinine [Mass ratio] 12.7 mg/mg Normal [facility] Comment on above: Performed By: #### B QUALITY CONTROL OPERATOR, CMP, TSH, LIPID #### [facility] [address] [place] [address] Dr. Reji Thomas PROTIMEon 05-15-2022 INR Coag (PPP) [Relative time] 2.53 {INR} Normal [facility] Comment on above: Performed By: #### B QUALITY CONTROL OPERATOR, CMP, TSH, LIPID #### [facility] [address] [place] [address] Dr. Reji Thomas INR GUIDELINES SEE BELOW Normal [facility] Comment on above: Result Comment: SHY RED INR: 2.0 - 3.0 CONDITIONS NOT LISTED BELOW 2.5 - 3.5 FOR PROSTHETIC HEART VALVE REPLACEMENT 2.5 - 3.5 RECURRENT THROMBOSIS Performed By: #### B QUALITY CONTROL OPERATOR, CMP, TSH, LIPID #### [facility] [address] [place] [address] Dr. Reji Thomas PT Coag (PPP) [Time] 25.7 s Critically high 9.0-11.6 [facility] Comment on above: Performed By: #### B QUALITY CONTROL OPERATOR, CMP, TSH, LIPID #### [facility] [address] [address] [address] Reji Thomas ECHOCARDIO M/2D COMPLETEon 0 05-04-2022 ECHOCARDIO M/2D COMPLETE Patient: INEZ JUAREZ Exam Date: 05/04/2022 : 1940 Gender:F Ordering : DR JENN PRADO M.D. Admission #: [id number] Family : Order #: [id number] CLICK HERE TO VIEW EXAM ECHOCARDIOGRAM REPORT [...] Area(A4C): 27.20 cm2 Left Atrium Systolic Volume(A2C): 145832 mm3 Left Atrium Systolic Volume(A4C): 10447 mm3 Mitral Valve MV E to A Ratio: 2.60 Deceleration [place]: 29382 mm/s2 Mitral Valve A-Wave Peak Velocity: 58.60 [...] Prado M.D. on 05/07/2022 at 11:39 Normal [facility] EVAN by IFAon 04-19-2022 Antinuclear Antibodies, IFA Positive Abnormal [facility] Comment on above: Result Comment: Nega tive <1:80 Borderline 1:80 Positive >1:80 Performed By: #### B QUALITY CONTROL OPERATOR, CMP, TSH, LIPID #### [facility] [address] [address] [address] Reji Thomas Centriole Pattern Normal [facility] [place] Comment on above: Performed By: #### B QUALITY CONTROL OPERATOR, CMP, TSH, LIPID #### [facility] [id number] Reji Thomas Centromere Pattern Normal [facility] Comment on above: Performed By: #### B QUALITY CONTROL OPERATOR, CMP, TSH, LIPID #### [facility] [address] [place], [place] [address] Dr. Reji Thomas Homogeneous Pattern 1:320 Critically high [facility] Comment on above: Result Comment: ICAP nomenclature: AC-1 Performed By: #### B QUALITY CONTROL OPERATOR, CMP, TSH, LIPID #### [facility] [address] [place], [place] [address] Dr. Reji Thomas Midbody Pattern Normal [facility] Comment on above: Performed By: #### B QUALITY CONTROL OPERATOR, CMP, TSH, LIPID #### [facility] [address] [place], [place] [address] Dr. Reji Thomas Note: Comment Normal [facility] Comment on above: Result Comment: For [...] titers Nucleosomes, Histones Drug-induced SLE Speckled Sm, THERMO CEMENTING FOLDER OPERATOR, SCL-70, SLE,MCTD,PSS (diffuse form), SS-A/SS-B Sjogrens Nucleolar SCL-70, PM-1/SCL High titers Scleroderma, PM/DM Centromere Centromere PSS (limited form) w/Crest syndrome variable Nuclear Dot [id number] Primary Biliary Cirrhosis Nuclear GP210, Primary Biliary Cirrhosis Membrane eleonora A,B,C Performed By: #### B QUALITY CONTROL OPERATOR, CMP, TSH, LIPID #### [facility] [address] [place] [address] Dr. Reji Thomas Nuclear Dot Pattern Normal [facility] Comment on above: Performed By: #### B QUALITY CONTROL OPERATOR, CMP, TSH, LIPID #### [facility] [address] [place] [address] Dr. Reji Thomas Nuclear Membrane Pattern Normal [facility] Comment on above: Performed By: #### B QUALITY CONTROL OPERATOR, CMP, TSH, LIPID #### [facility] [address] [place] [address] Dr. Reji Thomas Nucleolar Pattern Normal [facility] [place] Comment on above: Performed By: #### B QUALITY CONTROL OPERATOR, CMP, TSH, LIPID #### [facility] [address] [address] [address] Reji Thomas PCNA Pattern Normal [facility] Comment on above: Performed By: #### B QUALITY CONTROL OPERATOR, CMP, TSH, LIPID #### [facility] [address] [address] [address] Reji Thomas Speckled Pattern Normal [facility] Comment on above: Performed By: #### B QUALITY CONTROL OPERATOR, CMP, TSH, LIPID #### [facility] [address] [address] [address] Reji Thomas Spindle Apparatus Pattern Normal [facility] Comment on above: Performed By: #### B QUALITY CONTROL OPERATOR, CMP, TSH, LIPID #### [facility] [address] [address] [address] Reji Thomas ANCA (ANTINEUTROPHIL CYTOPLA MSMIC ABon 04-18-2022 Atypical pANCA <1:20 Normal Neg:<1:20 [facility] Comment on above: Result Comment: Seru m is slightly hemolyzed The atypical pANCA pattern has been observed in a significant percentage of patients with ulcerative colitis, primary sclerosing cholangitis and autoimmune hepatitis. Performed By: #### B MP #### [facility] [address] [address] [address] Reji Thomas Cytoplasmic (C-ANCA) <1:20 Normal Neg:<1:20 [facility] Comment on above: Result Comment: Seru m is slightly hemolyzed Performed By: #### B MP #### [facility] [address] [address] [address] Reji Thomas Perinuclear (P-ANCA) <1:20 Normal Neg:<1:20 [facility] Comment on above: Result Comment: Seru m is slightly hemolyzed The presence of positive fluorescence exhibiting P-ANCA or C-ANCA patterns alone is not specific for the diagnosis of Arlene's Granulomatosis (WG) or microscopic polyangiitis. Decisions about treatment should not be based solely on ANCA IFA results. The [employer] ANCA [employer] Consensus recommends follow up testing of positive sera with both LA-3 and MPO-ANCA enzyme immunoassays. As many as 5% serum samples are positive only by EIA. Ref. AM J Clin Pathol 1999;111:507-513. Performed By: #### B MP #### [facility] [address] [place] [address] Dr. Reji Thomas ANTISCLERODERMA ABon 022 Antiscleroderma-70 Antibodies 0.3 AI Normal 0.0-0.9 [facility] Comment on above: Performed By: #### B QUALITY CONTROL OPERATOR, CMP, TSH, LIPID #### [facility] [address] [place] [address] Dr. Reji Thomas T3 UPTAKEon 04-18-2022 Free Thyroxine Index 1.8 Normal 1.2-4.9 [facility] Comment on above: Performed By: #### B QUALITY CONTROL OPERATOR, CMP, TSH, LIPID #### [facility] [address] [place] [address] Dr. Reji Thomas T3 Uptake 23 % Critically low 24-39 [facility] Comment on above: Performed By: #### B QUALITY CONTROL OPERATOR, CMP, TSH, LIPID #### [facility] [address] [place] [address] Dr. Reji Thomas T4 LABCORPon 04-18-2022 T4 [Mass/Vol] 7.8 ug/dL Normal 4.5-12.0 [facility] Comment on above: Performed By: #### B QUALITY CONTROL OPERATOR, CMP, TSH, LIPID #### [facility] [address] [place] [address] Dr. Reji Thomas BNPon 04-16-2022 Natriuretic peptide B (Bld) [Mass/Vol] 2870.0 pg/mL Critically high <=1,800.0 [facility] Comment on above: Result Comment: repe ated Performed By: #### B QUALITY CONTROL OPERATOR, CMP, TSH, LIPID #### [facility] [address] [place] [address] Dr. Reji Thomas CBC AUTO DIFFon 04-16-2022 BASO # 0.1 103/ul Normal 0.0-0.1 [facility] Comment on above: Performed By: #### B QUALITY CONTROL OPERATOR, CMP, TSH, LIPID #### [facility] [address] [place] [address] Dr. Reji Thomas Basophils/100 WBC (Bld) 0.9 % Normal 0.2-2.0 The [facility] Comment on above: Performed By: #### B QUALITY CONTROL OPERATOR, CMP, TSH, LIPID #### [facility] [address] [place] [address] Dr. Reji Thomas EO # 0.3 103/ul Normal 0.0-0.7 The [facility] Comment on above: Performed By: #### B QUALITY CONTROL OPERATOR, CMP, TSH, LIPID #### [facility] [address] [place] [address] Dr. Reji Thomas Eosinophils/100 WBC (Bld) 3.9 % Normal 0.9-7.0 The [facility] Comment on above: Performed By: #### B QUALITY CONTROL OPERATOR, CMP, TSH, LIPID #### [facility] [address] [place] [address] Dr. Reji Thomas Erythrocyte distribution width (RBC) [Ratio] 15.9 % Critically high 11.0-15.0 [facility] Comment on above: Performed By: #### B QUALITY CONTROL OPERATOR, CMP, TSH, LIPID #### [facility] [address] [place] [address] Dr. Reji Thomas Hematocrit (Bld) [Volume fraction] 38.1 % Normal 36.0-48.0 [facility] Comment on above: Performed By: #### B QUALITY CONTROL OPERATOR, CMP, TSH, LIPID #### [facility] [address] [place] [address] Dr. Reji Thomas Hemoglobin (Bld) [Mass/Vol] 12.1 g/dL Normal 12.0-16.0 The [facility] Comment on above: Performed By: #### B QUALITY CONTROL OPERATOR, CMP, TSH, LIPID #### [facility] [address] [place] [address] Dr. Reji Thomas IG # 0.02 10e3/ul Normal 0.00-0.03 [facility] Comment on above: Performed By: #### B QUALITY CONTROL OPERATOR, CMP, TSH, LIPID #### [facility] [address] [place] [address] Dr. Reji Thomas IG % 0.3 % Normal 0.0-0.5 [facility] Comment on above: Performed By: #### B QUALITY CONTROL OPERATOR, CMP, TSH, LIPID #### [facility] [address] [place] [address] Dr. Reji Thomas LYMPH # 1.6 103/ul Normal 1.2-3.8 [facility] Comment on above: Performed By: #### B QUALITY CONTROL OPERATOR, CMP, TSH, LIPID #### [facility] [address] [place] [address] Dr. Reji Thomas Lymphocytes/100 WBC (Bld) 22.6 % Normal 20.5-60.0 [facility] Comment on above: Performed By: #### B QUALITY CONTROL OPERATOR, CMP, TSH, LIPID #### [facility] [address] [place] [address] Dr. Reji Thomas MANUAL DIFF REQ NO Normal [facility] Comment on above: Performed By: #### B QUALITY CONTROL OPERATOR, CMP, TSH, LIPID #### [facility] [address] [place] [address] Dr. Reji Thomas MCH (RBC) [Entitic mass] 26.5 pg Critically low 26.7-34.0 [facility] Comment on above: Performed By: #### B QUALITY CONTROL OPERATOR, CMP, TSH, LIPID #### [facility] [address] [place] [address] Dr. Reji Thomas MCHC (RBC) [Mass/Vol] 31.8 g/dL Normal 29.9-35.2 [facility] Comment on above: Performed By: #### B QUALITY CONTROL OPERATOR, CMP, TSH, LIPID #### [facility] [address] [place] [address] Dr. Reji Thomas MCV (RBC) [Entitic vol] 83.4 fL Normal 81.0-99.0 [facility] Comment on above: Performed By: #### B QUALITY CONTROL OPERATOR, CMP, TSH, LIPID #### [facility] [address] [place] [address] Dr. Reji Thomas MONO # 0.6 103/ul Normal 0.3-0.8 [facility] Comment on above: Performed By: #### B QUALITY CONTROL OPERATOR, CMP, TSH, LIPID #### [facility] [address] [place], [place] [id number] Dr. Reji Thomas Monocytes/100 WBC (Bld) 9.3 % Normal 1.7-12.0 [facility] Comment on above: Performed By: #### B QUALITY CONTROL OPERATOR, CMP, TSH, LIPID #### [facility] [address] [place] [address] Dr. Reji Thomas NEUT # 4.3 103/ul Normal 1.4-6.5 [facility] Comment on above: Performed By: #### B QUALITY CONTROL OPERATOR, CMP, TSH, LIPID #### [facility] [address] [place] [address] Dr. Reji Thomas Neutrophils/100 WBC (Bld) 63.0 % Normal 43.0-75.0 [facility] Comment on above: Performed By: #### B QUALITY CONTROL OPERATOR, CMP, TSH, LIPID #### [facility] [address] [place] [address] Dr. Reji Thomas Platelet mean volume (Bld) [Entitic vol] 9.2 fL Critically low 9.5-13.5 [facility] Comment on above: Performed By: #### B QUALITY CONTROL OPERATOR, CMP, TSH, LIPID #### [facility] [address] [place] [address] Dr. Reji Thomas PLT 211 103/ul Normal 150-450 [facility] Comment on above: Performed By: #### B QUALITY CONTROL OPERATOR, CMP, TSH, LIPID #### [facility] [address] [place] [address] Dr. Reji Thomas RBC 4.57 106/ul Normal 4.20-5.40 [facility] Comment on above: Performed By: #### B QUALITY CONTROL OPERATOR, CMP, TSH, LIPID #### [facility] [address] [place] [address] Dr. Reji Thomas WBC 6.9 103/ul Normal 4.0-11.0 [facility] Comment on above: Performed By: #### B QUALITY CONTROL OPERATOR, CMP, TSH, LIPID #### [facility] [address] [place] [address] Dr. Reji Thomas GLYCOHEMOGLOBIN A1Con 2021 ADA RECOMMENDATION SEE BELOW Normal [facility] Comment on above: Result Comment: ADA RECOMMENDED LIMIT 4.0 - 6.0 ADA THERAPEUTIC TARGET < 7.0 ACTION SUGGESTED > 7.0 Performed By: #### B QUALITY CONTROL OPERATOR, CMP, TSH, LIPID #### [facility] [address] [address] [address] Reji Thomas Glucose [Mass/Vol] 100 mg/dL Normal [facility] Comment on above: Performed By: #### B QUALITY CONTROL OPERATOR, CMP, TSH, LIPID #### [facility] [address] [address] [address] Reji Thomas HbA1c (Bld) [Mass fraction] 5.1 % Normal 4.5-6.2 [facility] Comment on above: Performed By: #### B QUALITY CONTROL OPERATOR, CMP, TSH, LIPID #### [facility] [address] [place] [address] Dr. Reji Thomas IRONon 04-16-2022 Iron [Mass/Vol] 42.0 ug/dL Critically low 50.0-170.0 [facility] Comment on above: Performed By: #### B QUALITY CONTROL OPERATOR, CMP, TSH, LIPID #### [facility] [address] [place] [address] Dr. Reji Thomas LIPID PROFILEon 04-16-2022 CHOL-HDL RATIO NORM SEE BELOW Normal [facility] Comment on above: Result Comment: 3.3 - 4.4 LOW RISK 4.4 - 7.1 AVERAGE RISK 7.1 - 11.0 MODERATE RISK >11.0 HIGH RISK Performed By: #### B QUALITY CONTROL OPERATOR, CMP, TSH, LIPID #### [facility] [address] [address] [address] Reji Thomas Cholesterol [Mass/Vol] 176 mg/dL Normal <=200 [facility] Comment on above: Performed By: #### B QUALITY CONTROL OPERATOR, CMP, TSH, LIPID #### [facility] [address] [address] [address] Reji Thomas Cholesterol in HDL [Mass/Vol] 52 mg/dL Normal 40-60 [facility] Comment on above: Performed By: #### B QUALITY CONTROL OPERATOR, CMP, TSH, LIPID #### [facility] [address] [place] [address] Dr. Reji Thomas Cholesterol in LDL [Mass/Vol] 102.8 mg/dL Normal [facility] Comment on above: Performed By: #### B QUALITY CONTROL OPERATOR, CMP, TSH, LIPID #### [facility] [address] [place] [address] Dr. Reji Thomas Cholesterol.total/Ch olesterol in HDL [Mass ratio] 3.4 {ratio} Normal [facility] Comment on above: Performed By: #### B QUALITY CONTROL OPERATOR, CMP, TSH, LIPID #### [facility] [address] [place] [address] Dr. Reji Thomas HDL NORMAL > or = 60 mg/dl - LOW CARDIOVASCULAR RISK <40 mg/dl - HIGH CARDIOVASCULAR RISK Normal [facility] Comment on above: Performed By: #### B QUALITY CONTROL OPERATOR, CMP, TSH, LIPID #### [facility] [address] [place] [address] Dr. Reji Thomas LDL CALC NORMAL SEE BELOW Normal The [facility] Comment on above: Result Comment: <100 mg/dl OPTIMAL 100 - 129 mg/dl NEAR OR ABOVE OPTIMAL 130 - 159 mg/dl BORDERLINE HIGH 160 - 189 mg/dl HIGH >190 mg/dl VERY HIGH Performed By: #### B QUALITY CONTROL OPERATOR, CMP, TSH, LIPID #### [facility] [address] [address] [address] Reji Thomas Triglyceride [Mass/Vol] 106 mg/dL Normal <=150 [facility] Comment on above: Performed By: #### B QUALITY CONTROL OPERATOR, CMP, TSH, LIPID #### [facility] [address] [place] [address] Dr. Reji Thomas VLDL CALC 21.2 mg/dL Normal [facility] Comment on above: Performed By: #### B QUALITY CONTROL OPERATOR, CMP, TSH, LIPID #### [facility] [address] [place] [address] Dr. Reji Thomas PROF 14(COMP METB)on 022 Albumin [Mass/Vol] 3.6 g/dL Normal 3.4-5.0 [facility] Comment on above: Performed By: #### B QUALITY CONTROL OPERATOR, CMP, TSH, LIPID #### [facility] [address] [address] [address] Reji Thomas Albumin/Globulin [Mass ratio] 0.9 {ratio} Normal [facility] Comment on above: Performed By: #### B QUALITY CONTROL OPERATOR, CMP, TSH, LIPID #### [facility] [address] [place] [address] Dr. Reji Thomas ALP [Catalytic activity/Vol] 62 U/L Normal 46-116 [facility] Comment on above: Performed By: #### B QUALITY CONTROL OPERATOR, CMP, TSH, LIPID #### [facility] [address] [place] [address] Dr. Reji Thomas ALT [Catalytic activity/Vol] 14 U/L Normal 14-59 [facility] Comment on above: Performed By: #### B QUALITY CONTROL OPERATOR, CMP, TSH, LIPID #### [facility] [address] [place] [address] Dr. Reji Thomas Anion gap [Moles/Vol] 14.5 mmol/L Normal [facility] Comment on above: Performed By: #### B QUALITY CONTROL OPERATOR, CMP, TSH, LIPID #### [facility] [address] [place] [address] Dr. Reji Thomas AST [Catalytic activity/Vol] 17 U/L Normal 15-37 [facility] Comment on above: Performed By: #### B QUALITY CONTROL OPERATOR, CMP, TSH, LIPID #### [facility] [address] [place] [address] Dr. Reji Thomas Bilirubin [Mass/Vol] 0.6 mg/dL Normal 0.2-1.0 [facility] Comment on above: Performed By: #### B QUALITY CONTROL OPERATOR, CMP, TSH, LIPID #### [facility] [address] [place] [address] Dr. Reji Thomas Calcium [Mass/Vol] 8.8 mg/dL Normal 8.5-10.1 [facility] Comment on above: Performed By: #### B QUALITY CONTROL OPERATOR, CMP, TSH, LIPID #### [facility] [address] [place] [address] Dr. Reji Thomas Chloride [Moles/Vol] 102 mmol/L Normal 98-107 [facility] Comment on above: Performed By: #### B QUALITY CONTROL OPERATOR, CMP, TSH, LIPID #### [facility] [address] [place] [address] Dr. Reji Thomas CO2 [Moles/Vol] 26.3 mmol/L Normal 21.0-32.0 [facility] Comment on above: Performed By: #### B QUALITY CONTROL OPERATOR, CMP, TSH, LIPID #### [facility] [address] [place] [address] Dr. Reji Thomas Creatinine [Mass/Vol] 1.76 mg/dL Critically high 0.55-1.02 [facility] Comment on above: Performed By: #### B QUALITY CONTROL OPERATOR, CMP, TSH, LIPID #### [facility] [address] [place] [address] Dr. Reji Thomas EGFR-AF ERITREAN 33 mL/min/1.73m2 Critically low >=60 [facility] Comment on above: Performed By: #### B QUALITY CONTROL OPERATOR, CMP, TSH, LIPID #### [facility] [address] [place] [address] Dr. Reji Thomas EGFR-NON AF ERITREAN 28 mL/min/1.73m2 Critically low >=60 [facility] Comment on above: Performed By: #### B QUALITY CONTROL OPERATOR, CMP, TSH, LIPID #### [facility] [address] [place] [address] Dr. Reji Thomas Globulin (S) [Mass/Vol] 4.2 g/dL Normal [facility] Comment on above: Performed By: #### B QUALITY CONTROL OPERATOR, CMP, TSH, LIPID #### [facility] [address] [place] [address] Dr. Reji Thomas Glucose [Mass/Vol] 81 mg/dL Normal 74-106 [facility] Comment on above: Performed By: #### B QUALITY CONTROL OPERATOR, CMP, TSH, LIPID #### [facility] [address] [place] [address] Dr. Reji Thomas Potassium [Moles/Vol] 3.8 mmol/L Normal 3.5-5.1 [facility] Comment on above: Performed By: #### B QUALITY CONTROL OPERATOR, CMP, TSH, LIPID #### [facility] [address] [place] [address] Dr. Reji Thomas Protein [Mass/Vol] 7.8 g/dL Normal 6.4-8.2 [facility] Comment on above: Performed By: #### B QUALITY CONTROL OPERATOR, CMP, TSH, LIPID #### [facility] [address] [place] [address] Dr. Reji Thomas Sodium [Moles/Vol] 139 mmol/L Normal 136-145 [facility] Comment on above: Performed By: #### B QUALITY CONTROL OPERATOR, CMP, TSH, LIPID #### [facility] [address] [place] [address] Dr. Reji Thomas Urea nitrogen [Mass/Vol] 27.0 mg/dL Critically high 7.0-18.0 [facility] Comment on above: Performed By: #### B QUALITY CONTROL OPERATOR, CMP, TSH, LIPID #### [facility] [address] [place] [address] Dr. Reji Thomas Urea nitrogen/Creatinine [Mass ratio] 15.3 mg/mg Normal [facility] Comment on above: Performed By: #### B QUALITY CONTROL OPERATOR, CMP, TSH, LIPID #### [facility] [address] [place] [address] Dr. Reji Thomas PROTIMEon 04-16-2022 INR Coag (PPP) [Relative time] 1.92 {INR} Normal [facility] Comment on above: Performed By: #### B QUALITY CONTROL OPERATOR, CMP, TSH, LIPID #### [facility] [address] [place] [address] Dr. Reji Thomas INR GUIDELINES SEE BELOW Normal [facility] Comment on above: Result Comment: SHY RED INR: 2.0 - 3.0 CONDITIONS NOT LISTED BELOW 2.5 - 3.5 FOR PROSTHETIC HEART VALVE REPLACEMENT 2.5 - 3.5 RECURRENT THROMBOSIS Performed By: #### B QUALITY CONTROL OPERATOR, CMP, TSH, LIPID #### [facility] [address] [place] [address] Dr. Reji Thomas PT Coag (PPP) [Time] 19.9 s Critically high 9.0-11.6 [facility] Comment on above: Performed By: #### B QUALITY CONTROL OPERATOR, CMP, TSH, LIPID #### [facility] [address] [address] [address] Reji Thomas [facility]ATE 37 mm/hr Critically high <=[address] [facility] Comment on above: Performed By: #### B QUALITY CONTROL OPERATOR, CMP, TSH, LIPID #### [facility] [address] [place] [address] Dr. Reji Thomas TSHon 04-16-2022 TSH 1.941 uIU/mL Normal 0.358-3.740 [facility] Comment on above: Performed By: #### B QUALITY CONTROL OPERATOR, CMP, TSH, LIPID #### [facility] [address] [place] [address] Dr. Reji Thomas TSH RANGE SEE BELOW Normal [facility] Comment on above: Result Comment: <0.3 4 UIU/ml HYPERTHYROID 0.34-5.60 UIU/ml EUTHYROID >5.60 UIU/ml HYPOTHYROID Performed By: #### B QUALITY CONTROL OPERATOR, CMP, TSH, LIPID #### [facility] [address] [place] [address] Dr. Reji Thomas VITAMIN D 25 OHon 04-16-2022 VIT D 25-OH 56.6 ng/mL Normal [facility] Comment on above: Performed By: #### B QUALITY CONTROL OPERATOR, CMP, TSH, LIPID #### [facility] [address] [place] [address] Dr. Reji Thomas VIT D RANGES SEE BELOW Normal [facility] Comment on above: Result Comment: <20 ng/mL Vit D deficient 20 - <30 ng/mL Vit D insufficient 30 - 100 ng/mL Vit D sufficient >100 ng/mL Potential Toxicity Performed By: #### B QUALITY CONTROL OPERATOR, CMP, TSH, LIPID #### [facility] [address] [place] [address] Dr. Reji Thomas Cardiovascular Lab Reporton 11-02-2021 Cardiovascular Lab Report [facility] Patient Name: Inez Juarez MR #: [id number] [facility] Physician: Jenn Prado M.D. Department of Service Date: 11/01/2021 Medicine Birthdate: 1940 Division of Room #: Cardiology Adult Cardiovascular Services [facility] [address] [place] [address] Cardiovascular Laboratory Report INDICATION: The patient is [...] She signed consent. She was brought to geochemical laboratory technician in a fasting state. The right neck area was prepped and draped in usual fashion. Micropuncture technique and ultrasound guidance were used for access in the right internal jugular vein. A 6-Slovenian x 11 cm sheath was placed. A 6-Slovenian Hernández catheter was used for heart catheterization [...] Prado M.D. Date Trans: 11/01/2021 11:22 P/alondra [id number] cc: Bruce Rizvi M.D. [address] [facility] [id number] [facility] Cardiovascular Lab Reporton 06-02-2021 Cardiovascular Lab Report [facility] Patient Name: Inez Juarez MR #: [id number] [facility] Physician: Jenn Prado M.D. Department of Service Date: 06/02/2021 Medicine Birthdate: 1940 Division of Room #: CC Cardiology Adult Cardiovascular Services [facility] [address] [facility] [place] [address] Cardiovascular Laboratory Report INDICATION: The patient is [...] the informed consent. She was brought to geochemical laboratory technician in a fasting state. The right neck area was prepped and draped in usual fashion. Using micropuncture technique and ultrasound guidance, the right internal jugular vein was accessed and a 6-Slovenian x 11 cm sheath was placed. A 6-Slovenian Hernández catheter was used for heart catheterization [...] Prado M.D. Date Trans: 06/02/2021 02:42 P/alondra [id number] cc: Bruce Rizvi M.D. [address] [place] [facility] [id number] [facility] Encounters Encounter Date Encounter Type Care Provider Facility Start: 07-03-2024 End: 07-03-2024 ambulatory [facility] Start: 12-13-2023 End: 12-13-2023 ambulatory [facility] Start: 10-30-2023 End: 10-30-2023 ambulatory [facility] Start: 10-22-2023 End: 10-22-[address] [facility] Start: 03-22-2023 End: 03-23-[address] [...] Start: 11-01-2021 End: 11-02-2021 ambulatory PROVIDER UNKNOWN Facility:[facility] Start: 06-02-2021 End: 06-03-2021 ambulatory PROVIDER UNKNOWN Facility:[facility] Payers Date Payer Category Payer Medicare [id number] 1961 Medicare [id number] 1961 Medicare [id number] 1961 Self-pay [id number] 1940 Unknown [id number] 2.16.8 [id number] 1940 Unknown [id number] 2.16.8 40.1.437814.3.579.2.647 1940 Unknown [id number] 2.16.84 0.1.026849.3.579.2.593 1940 Unknown [id number] 2.16.84 0.1.174588.3.579.2.593 1938 Unknown [id number] 2.16.84 0.1.627705.3.579.2.593 1938 Unknown [id number] 2.16.84 0.1.318909.3.579.2.593 1938 Unknown [id number] 2.16.84 0.1.619869.3.579.2.593 1938 Unknown [id number] 2.16.84 0.1.823810.3.579.2.593 1938 Unknown [id number] 2.16.84 0.1.406402.3.579.2.593 1938 Unknown [id number] 2.16.84 0.1.698622.3.579.2.593 1938 Unknown [id number] 2.16.84 0.1.561670.3.579.2.593 1938 Unknown [id number] 2.16.84 0.1.163346.3.579.2.593 1938 Unknown [id number] 2.16.84 0.1.696419.3.579.2.593 1938 Unknown [id number] 2.16.84 0.1.279006.3.579.2.593 1938 Unknown [id number] 2.16.84 0.1.874264.3.579.2.593 1938 Unknown [id number] 2.16.84 0.1.280890.3.579.2.593 1938 Unknown [id number] 2.16.84 0.1.412223.3.579.2.593 1938 Unknown [id number] 2.16.84 0.1.642855.3.579.2.593 1938 Unknown [id number] 2.16.84 0.1.794584.3.579.2.593 1938 Unknown [id number] 2.16.84 0.1.628489.3.579.2.593 1938 Unknown [id number] 2.16.84 0.1.330319.3.579.2.593 Private Health Insurance MEB [id number] Progress note 07-03-2024 Note Date & Type Note Facility 07-03-2024 Note [facility] Petrona Juarez is a 84 [...] Pulse 50 Ht (more content not included)... [facility] Progress note 12-13-2023 Note Date & Type Note Facility 12-13-2023 Note [facility] Petrona Juarez is a 83 [...] Nose: Nose james (more content not included)... [facility] Progress note 10-30-2023 Note Date & Type Note Facility 10-30-2023 Note [facility] Subjective Inez Juarez is a [...] Murmur heard. Systol (more content not included)... [facility] Clinical Note 10-22-2023 Note Date & Type Note Facility 10-22-2023 Note Patient: Inez Withe m Procedure Information Date/Time: 10/22/23829 Procedure: Right heart cath Location: [facility] / [facility] (Cath) Providers: Antony Smith [...] with fellow and attending. Additional Equipment Requests [facility] Clinical Note 10-15-2023 Note Date & Type Note Facility 10-15-[address] Smith regarding warfarin. Dr Smith requested warfarin to be held for 3 days [address] procedure[address] [facility] Progress note 09-19-2023 Note Date & Type Note Facility 09-19-2023 Note [facility] Summary Purpose Family History No Family History Records FoundNo Family History Records FoundNo Family History Records FoundNo Family History Records Found Advance Directives No Advanced Directives Records FoundNo Advanced Directives Records FoundNo Advanced Directives Records FoundNo Advanced Directives Records Found Additional Source Comments INFORMATION SOURCE (unrecogn ized section and content) DATE CREATED AUTHOR 11/03/2021 [facility] DATE CREATED AUTHOR AUTHOR'S ORGANIZ ATION 07/05/2022 [facility] DATE CREATED AUTHOR AUTHOR'S ORGANIZ ATION 03/23/2023 [facility] DATE CREATED AUTHOR AUTHOR'S ORGANIZ ATION 07/05/2024 [facility] FOR RECORDS PERTAINING TO PATIENTS WHO ARE [...] BE BASED ON THE PRIMARY CLINICAL RECORDS. [employer] [facility]. provides no warranty or guarantee of the accuracy or completeness of information in this document.
[2024-12-10 16:20] LABS: INR 3.21; Prothrombin Time 30.3 sec (9.0-11.6)
== END 2024-12-10 15:50 | disposition home or self-care (01) ==
LOC: LAB 15:49
PROVIDERS: PCP Family Medicine; Visit Provider Family Medicine
DX: I48.91 Unspecified atrial fibrillation (principal); I35.0 Nonrheumatic aortic (valve) stenosis
CPT/HCPCS: 36415; 85610

== ENCOUNTER 2025-01-08 12:29 | Outpatient (OUT) | payer MEDICARE, SELFPAY ==
--- OUTSIDE RECORDS SUMMARY | 2025-01-08 12:35 | XMS_ITS | CCD ---
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 Name Role Phone UNKNOWN, PROVIDER Attending Unavailable [...] senior care (current) drug therapy; Translations: [OTH VEHICLE CHECK IN CLERK CURRENT DRUG THERAPY] Onset: 06-04-2022 Episodic Other [...] Range Facility Office Visiton 07-03-2024 Follow-up visit [id number] Inez Juarez 1940 F Date Provider Department Center 07/03/2024 JENN AMANDA BARBRA [place] Family History Problem Relation Age of Onset Hypertension Mother Coronary artery disease Father Hypertension Father Family Status - Relation Status Age at Mother Father Level of Service:63166 ND OFFICE/OUTPATIENT ESTABLISHED LOW MDM 20 MIN Normal [facility] Office Visiton 12-13-2023 Follow-up visit [id number] Inez Juarez 1940 Provider Department Center 12/13/2023 JENN AMANDA BARBRA [place] Family History Problem Relation Age of Onset Hypertension Mother Coronary artery disease Father Hypertension Father Family Status - Relation Status Age at Mother Father Level of Service:46777 ND OFFICE/OUTPATIENT ESTABLISHED MOD MDM 30 MIN Normal [facility] Office Visiton 10-30-2023 Follow-up visit [id number] Inez Juarez 1940 Date Provider Department Center 10/30/2023 JENN AMANDA BARBRA Acuña Family History Problem Relation Age of Onset Hypertension Mother Coronary artery disease Father Hypertension Father Family Status - Relation Status Age at Mother Father Level of Service:15573 ND OFFICE/OUTPATIENT ESTABLISHED MOD MDM 30 MIN Normal [facility] HPon 10-22-2023 History Of Present Illness [...] a past medical history of Atrial fibrillation ([facility]), CHF (congestive heart failure) ([facility]), Chronic kidney disease, GERD (gastroesophageal reflux disease), Heart valve disease, Hyperlipidemia, Hypertension, and Pulmonary hypertension ([facility]). Surgical History She has a past [...] Relevant (more content not included)... [facility] NURSNOTEon 10-22-2023 NURSNOTE RN educated pt on d/c instructions. RN encouraged pt to voice any questions or concerns. Pt verbalizes no questions or concerns at this time. Normal [facility] BNPon 03-22-2023 Natriuretic peptide B (Bld) [Mass/Vol] 1423.0 pg/mL Normal <=1,800.0 [facility] Comment on above: Performed By: #### B ANIMAL RESCUER, CMP, TSH, LIPID #### [facility] [address] [place] [address] Dr. Reji Thomas CBC AUTO DIFFon 03-22-2023 BASO # 0.1 103/ul Normal 0.0-0.1 [facility] Comment on above: Performed By: #### B MP #### [facility] [address] [address] [address] Reji Thomas Basophils/100 WBC (Bld) 1.0 % Normal 0.2-2.0 [facility] Comment on above: Performed By: #### B MP #### [facility] [address] [address] [address] Reji Thomas EO # 0.2 103/ul Normal 0.0-0.7 [facility] Comment on above: Performed By: #### B MP #### [facility] [address] [place] [address] Dr. Reji Thomas Eosinophils/100 WBC (Bld) 3.3 % Normal 0.9-7.0 [facility] Comment on above: Performed By: #### B MP #### [facility] [address] [place] [address] Dr. Reji Thomas Erythrocyte distribution width (RBC) [Ratio] 15.4 % Critically high 11.0-15.0 [facility] Comment on above: Performed By: #### B MP #### [facility] [address] [place] [address] Dr. Reji Thomas Hematocrit (Bld) [Volume fraction] 35.2 % Critically low 36.0-48.0 [facility] Comment on above: Performed By: #### B MP #### [facility] [address] [place] [address] Dr. Reji Thomas Hemoglobin (Bld) [Mass/Vol] 11.4 g/dL Critically low 12.0-16.0 [facility] Comment on above: Performed By: #### B MP #### [facility] [address] [place] [address] Dr. Reji Thomas IG # 0.02 10e3/ul Normal 0.00-0.03 [facility] Comment on above: Performed By: #### B MP #### [facility] [address] [place] [address] Dr. Reji Thomas IG % 0.3 % Normal 0.0-0.5 [facility] Comment on above: Performed By: #### B MP #### [facility] [address] [place] [address] Dr. Reji Thomas LYMPH # 1.4 103/ul Normal 1.2-3.8 [facility] Comment on above: Performed By: #### B MP #### [facility] [address] [place] [address] Dr. Reji Thomas Lymphocytes/100 WBC (Bld) 22.6 % Normal 20.5-60.0 [facility] Comment on above: Performed By: #### B MP #### [facility] [address] [place] [address] Dr. Reji Thomas MANUAL DIFF REQ NO Normal [facility] Comment on above: Performed By: #### B MP #### [facility] [address] [place] [address] Dr. Reji Thomas MCH (RBC) [Entitic mass] 27.0 pg Normal 26.7-34.0 [facility] Comment on above: Performed By: #### B MP #### [facility] [address] [place] [address] Dr. Reji Thomas MCHC (RBC) [Mass/Vol] 32.4 g/dL Normal 29.9-35.2 [facility] Comment on above: Performed By: #### B MP #### [facility] [address] [place] [address] Dr. Reji Thomas MCV (RBC) [Entitic vol] 83.2 fL Normal 81.0-99.0 [facility] Comment on above: Performed By: #### B MP #### [facility] [address] [place] [address] Dr. Reji Thomas MONO # 0.5 103/ul Normal 0.3-0.8 [facility] Comment on above: Performed By: #### B MP #### [facility] [address] [place] [address] Dr. Reji Thomas Monocytes/100 WBC (Bld) 8.5 % Normal 1.7-12.0 [facility] Comment on above: Performed By: #### B MP #### [facility] [address] [place] [address] Dr. Reji Thomas NEUT # 4.0 103/ul Normal 1.4-6.5 [facility] Comment on above: Performed By: #### B MP #### [facility] [address] [place] [address] Dr. Reji Thomas Neutrophils/100 WBC (Bld) 64.3 % Normal 43.0-75.0 [facility] Comment on above: Performed By: #### B MP #### [facility] [address] [place] [address] Dr. Reji Thomas Platelet mean volume (Bld) [Entitic vol] 8.9 fL Critically low 9.5-13.5 [facility] Comment on above: Performed By: #### B MP #### [facility] [address] [address] [address] Reji Thomas PLT 226 103/ul Normal 150-450 [facility] Comment on above: Performed By: #### B MP #### [facility] [address] [address] [address] Reji Thomas RBC 4.23 106/ul Normal 4.20-5.40 [facility] Comment on above: Performed By: #### B MP #### [facility] [address] [address] [address] Reji Thomas WBC 6.3 103/ul Normal 4.0-11.0 [facility] Comment on above: Performed By: #### B MP #### [facility] [address] [address] [address] Reji Thomas FREE THYROXINE INDEX T7on FTI 2.40 Normal 1.30-4.50 [facility] Comment on above: Performed By: #### B ANIMAL RESCUER, CMP, TSH, LIPID #### [facility] [address] [place] [address] Dr. Reji Thomas T3U 32.0 % Normal 30.0-39.0 [facility] Comment on above: Performed By: #### B ANIMAL RESCUER, CMP, TSH, LIPID #### [facility] [address] [place] [address] Dr. Reji Thomas T4 [Mass/Vol] 7.50 ug/dL Normal 4.80-13.90 [facility] Comment on above: Performed By: #### B ANIMAL RESCUER, CMP, TSH, LIPID #### [facility] [address] [place] [address] Dr. Reji Thomas GLYCOHEMOGLOBIN A1Con 2022 ADA RECOMMENDATION SEE BELOW Normal [facility] Comment on above: Result Comment: ADA RECOMMENDED LIMIT 4.0 - 6.0 ADA THERAPEUTIC TARGET < 7.0 ACTION SUGGESTED > 7.0 Performed By: #### B ANIMAL RESCUER, CMP, TSH, LIPID #### [facility] [address] [address] [address] Reji Thomas Glucose [Mass/Vol] 97 mg/dL Normal [facility] Comment on above: Performed By: #### B ANIMAL RESCUER, CMP, TSH, LIPID #### [facility] [address] [address] [address] Reji Thomas HbA1c (Bld) [Mass fraction] 5.0 % Normal 4.5-6.2 [facility] Comment on above: Performed By: #### B ANIMAL RESCUER, CMP, TSH, LIPID #### [facility] [address] [address] [address] Reji Thomas IRONon 03-22-2023 Iron [Mass/Vol] 47.0 ug/dL Critically low 50.0-170.0 [facility] Comment on above: Performed By: #### B ANIMAL RESCUER, CMP, TSH, LIPID #### [facility] [address] [place] [address] Dr. Reji Thomas LIPID PROFILEon 03-22-2023 CHOL-HDL RATIO NORM SEE BELOW Normal [facility] Comment on above: Result Comment: 3.3 - 4.4 LOW RISK 4.4 - 7.1 AVERAGE RISK 7.1 - 11.0 MODERATE RISK >11.0 HIGH RISK Performed By: #### M G, TSH, LIPID, T7, CMP, BNP #### [facility] [address] [address] [address] Reji Thomas Cholesterol [Mass/Vol] 188 mg/dL Normal <=200 [facility] Comment on above: Performed By: #### M G, TSH, LIPID, T7, CMP, BNP #### [facility] [address] [address] [address] Reji Thomas Cholesterol in HDL [Mass/Vol] 53 mg/dL Normal 40-60 [facility] Comment on above: Performed By: #### M G, TSH, LIPID, T7, CMP, BNP #### [facility] [address] [address] [address] Reji Thomas Cholesterol in LDL [Mass/Vol] 111.6 mg/dL Normal [facility] Comment on above: Performed By: #### M G, TSH, LIPID, T7, CMP, BNP #### [facility] [address] [address] [address] Reji Thomas Cholesterol.total/Ch olesterol in HDL [Mass ratio] 3.5 {ratio} Normal [facility] Comment on above: Performed By: #### M G, TSH, LIPID, T7, CMP, BNP #### [facility] [address] [address] [address] Reji Thomas HDL NORMAL > or = 60 mg/dl - LOW CARDIOVASCULAR RISK <40 mg/dl - HIGH CARDIOVASCULAR RISK Normal [facility] Comment on above: Performed By: #### M G, TSH, LIPID, T7, CMP, BNP #### [facility] [address] [place] [address] Dr. Reji Thomas LDL CALC NORMAL SEE BELOW Normal [facility] Comment on above: Result Comment: <100 mg/dl OPTIMAL 100 - 129 mg/dl NEAR OR ABOVE OPTIMAL 130 - 159 mg/dl BORDERLINE HIGH 160 - 189 mg/dl HIGH >190 mg/dl VERY HIGH Performed By: #### M G, TSH, LIPID, T7, CMP, BNP #### [facility] [address] [address] [address] Reji Thomas Triglyceride [Mass/Vol] 117 mg/dL Normal <=150 [facility] Comment on above: Performed By: #### M G, TSH, LIPID, T7, CMP, BNP #### [facility] [address] [address] [address] Reji Thomas VLDL CALC 23.4 mg/dL Normal [facility] Comment on above: Performed By: #### M G, TSH, LIPID, T7, CMP, BNP #### [facility] [address] [address] [address] Reji Thomas MAGNESIUMon 03-22-2023 Magnesium [Mass/Vol] 2.4 mg/dL Normal 1.8-2.4 [facility] Comment on above: Performed By: #### B ANIMAL RESCUER, CMP, TSH, LIPID #### [facility] [address] [place] [address] Dr. Reji Thomas PROF 14(COMP METB)on 023 Albumin [Mass/Vol] 3.4 g/dL Normal 3.4-5.[address] [facility] Comment on above: Performed By: #### M G, TSH, LIPID, T7, CMP, BNP #### [facility] [address] [place] [address] Dr. Reji Thomas Albumin/Globulin [Mass ratio] 0.8 {ratio} Normal [facility] Comment on above: Performed By: #### M G, TSH, LIPID, T7, CMP, BNP #### [facility] [address] [place] [address] Dr. Reji Thomas ALP [Catalytic activity/Vol] 61 U/L Normal 46-116 [facility] Comment on above: Performed By: #### M G, TSH, LIPID, T7, CMP, BNP #### [facility] [address] [place] [address] Dr. Reji Thomas ALT [Catalytic activity/Vol] 15 U/L Normal 14-59 [facility] Comment on above: Performed By: #### M G, TSH, LIPID, T7, CMP, BNP #### [facility] [address] [place] [address] Dr. Reji Thomas Anion gap [Moles/Vol] 13.1 mmol/L Normal [facility] Comment on above: Performed By: #### M G, TSH, LIPID, T7, CMP, BNP #### [facility] [address] [place] [address] Dr. Reji Thomas AST [Catalytic activity/Vol] 13 U/L Critically low 15-37 [facility] Comment on above: Performed By: #### M G, TSH, LIPID, T7, CMP, BNP #### [facility] [address] [place] [address] Dr. Reji Thomas Bilirubin [Mass/Vol] 0.4 mg/dL Normal 0.2-1.0 [facility] Comment on above: Performed By: #### M G, TSH, LIPID, T7, CMP, BNP #### [facility] [address] [place] [address] Dr. Rjei Thomas Calcium [Mass/Vol] 8.5 mg/dL Normal 8.5-10.[address] [facility] Comment on above: Performed By: #### M G, TSH, LIPID, T7, CMP, BNP #### [facility] [address] [place] [address] Dr. Reji Thomas Chloride [Moles/Vol] 106 mmol/L Normal 98-107 [facility] Comment on above: Performed By: #### M G, TSH, LIPID, T7, CMP, BNP #### [facility] [address] [place] [address] Dr. Reji Thomas CO2 [Moles/Vol] 27.6 mmol/L Normal 21.0-32.0 [facility] Comment on above: Performed By: #### M G, TSH, LIPID, T7, CMP, BNP #### [facility] [address] [place] [address] Dr. Reji Thomas Creatinine [Mass/Vol] 2.32 mg/dL Critically high 0.55-1.02 [facility] Comment on above: Performed By: #### M G, TSH, LIPID, T7, CMP, BNP #### [facility] [address] [place] [address] Dr. Reji Thomas EGFR-AF FINNISH 24 mL/min/1.73m2 Critically low >=60 [facility] Comment on above: Performed By: #### M G, TSH, LIPID, T7, CMP, BNP #### [facility] [address] [place] [address] Dr. Reji Thomas EGFR-NON AF FINNISH 20 mL/min/1.73m2 Critically low >=60 [facility] Comment on above: Performed By: #### M G, TSH, LIPID, T7, CMP, BNP #### [facility] [address] [place] [address] Dr. Reji Thomas Globulin (S) [Mass/Vol] 4.3 g/dL Normal [facility] Comment on above: Performed By: #### M G, TSH, LIPID, T7, CMP, BNP #### [facility] [address] [address] [address] Reji Thomas Glucose [Mass/Vol] 88 mg/dL Normal 74-106 [facility] Comment on above: Performed By: #### M G, TSH, LIPID, T7, CMP, BNP #### [facility] [address] [address] [address] Reji Thomas Potassium [Moles/Vol] 4.7 mmol/L Normal 3.5-5.1 [facility] Comment on above: Performed By: #### M G, TSH, LIPID, T7, CMP, BNP #### [facility] [address] [address] [address] Reji Thomas Protein [Mass/Vol] 7.7 g/dL Normal 6.4-8.2 [facility] Comment on above: Performed By: #### M G, TSH, LIPID, T7, CMP, BNP #### [facility] [address] [place] [address] Dr. Reji Thomas Sodium [Moles/Vol] 142 mmol/L Normal 136-145 [facility] Comment on above: Performed By: #### M G, TSH, LIPID, T7, CMP, BNP #### [facility] [address] [address] [address] Reji Thomas Urea nitrogen [Mass/Vol] 38.0 mg/dL Critically high 7.0-18.0 [facility] Comment on above: Performed By: #### M G, TSH, LIPID, T7, CMP, BNP #### [facility] [address] [place] [address] Dr. Reji Thomas Urea nitrogen/Creatinine [Mass ratio] 16.4 mg/mg Normal [facility] Comment on above: Performed By: #### M G, TSH, LIPID, T7, CMP, BNP #### [facility] [address] [place] [address] Dr. Reji Thomas PROTIMEon 03-22-2023 INR Coag (PPP) [Relative time] 1.98 {INR} Normal [facility] Comment on above: Performed By: #### P T #### [facility] [address] [place] [address] Dr. Reji Thomas INR GUIDELINES SEE BELOW Normal [facility] Comment on above: Result Comment: SHY RED INR: 2.0 - 3.0 CONDITIONS NOT LISTED BELOW 2.5 - 3.5 FOR PROSTHETIC HEART VALVE REPLACEMENT 2.5 - 3.5 RECURRENT THROMBOSIS Performed By: #### P T #### [facility] [address] [place] [address] Dr. Reji Thomas PT Coag (PPP) [Time] 20.2 s Critically high 9.0-11.6 [facility] Comment on above: Performed By: #### P T #### [facility] [address] [place] [address] Dr. Reji Thomas TSHon 03-22-2023 TSH 2.265 uIU/mL Normal 0.358-3.740 [facility] Comment on above: Performed By: #### B ANIMAL RESCUER, CMP, TSH, LIPID #### [facility] [address] [place] [address] Dr. Reji Thomas VITAMIN D 25 OHon 03-22-2023 VIT D 25-OH 53.1 ng/mL Normal [facility] Comment on above: Performed By: #### B MP #### [facility] [address] [place] [address] Dr. Reji Thomas VIT D RANGES SEE BELOW Normal [facility] Comment on above: Result Comment: <20 ng/mL Vit D deficient 20 - <30 ng/mL Vit D insufficient 30 - 100 ng/mL Vit D sufficient >100 ng/mL Potential Toxicity Performed By: #### B MP #### [facility] [address] [place] [address] Dr. Reji Thomas PROTIMEon 02-22-2023 INR Coag (PPP) [Relative time] 2.22 {INR} Normal [facility] Comment on above: Performed By: #### B ANIMAL RESCUER, CMP, TSH, LIPID #### [facility] [address] [place] [address] Dr. Reji Thomas INR GUIDELINES SEE BELOW Normal [facility] Comment on above: Result Comment: SHY RED INR: 2.0 - 3.0 CONDITIONS NOT LISTED BELOW 2.5 - 3.5 FOR PROSTHETIC HEART VALVE REPLACEMENT 2.5 - 3.5 RECURRENT THROMBOSIS Performed By: #### B ANIMAL RESCUER, CMP, TSH, LIPID #### [facility] [address] [place] [address] Dr. Reji Thomas PT Coag (PPP) [Time] 22.5 s Critically high 9.0-11.6 [facility] Comment on above: Performed By: #### B ANIMAL RESCUER, CMP, TSH, LIPID #### [facility] [address] [place] [address] Dr. Reji Thomas PROTIMEon 01-03-2023 INR Coag (PPP) [Relative time] 2.53 {INR} Normal [facility] Comment on above: Performed By: #### B MP #### [facility] [address] [place] [address] Dr. Reji Thomas INR GUIDELINES SEE BELOW Normal [facility] Comment on above: Result Comment: SHY RED INR: 2.0 - 3.0 CONDITIONS NOT LISTED BELOW 2.5 - 3.5 FOR PROSTHETIC HEART VALVE REPLACEMENT 2.5 - 3.5 RECURRENT THROMBOSIS Performed By: #### B MP #### [facility] [address] [place] [address] Dr. Reji Thomas PT Coag (PPP) [Time] 25.4 s Critically high 9.0-11.6 [facility] Comment on above: Performed By: #### B MP #### [facility] [address] [place] [address] Dr. Reji Thomas PROTIMEon 11-23-2022 INR Coag (PPP) [Relative time] 1.71 {INR} Normal [facility] Comment on above: Performed By: #### B ANIMAL RESCUER, CMP, TSH, LIPID #### [facility] [address] [place] [address] Dr. Reji Thomas INR GUIDELINES SEE BELOW Normal [facility] Comment on above: Result Comment: SHY RED INR: 2.0 - 3.0 CONDITIONS NOT LISTED BELOW 2.5 - 3.5 FOR PROSTHETIC HEART VALVE REPLACEMENT 2.5 - 3.5 RECURRENT THROMBOSIS Performed By: #### B ANIMAL RESCUER, CMP, TSH, LIPID #### [facility] [address] [place] [address] Dr. Reji Thomas PT Coag (PPP) [Time] 17.6 s Critically high 9.0-11.6 [facility] Comment on above: Performed By: #### B ANIMAL RESCUER, CMP, TSH, LIPID #### [facility] [address] [place] [address] Dr. Reji Thomas PROTIMEon 10-10-2022 INR Coag (PPP) [Relative time] 2.52 {INR} Normal [facility] Comment on above: Performed By: #### B ANIMAL RESCUER, CMP, TSH, LIPID #### [facility] [address] [place] [address] Dr. Reji Thomas INR GUIDELINES SEE BELOW Normal [facility] Comment on above: Result Comment: SHY RED INR: 2.0 - 3.0 CONDITIONS NOT LISTED BELOW 2.5 - 3.5 FOR PROSTHETIC HEART VALVE REPLACEMENT 2.5 - 3.5 RECURRENT THROMBOSIS Performed By: #### B ANIMAL RESCUER, CMP, TSH, LIPID #### [facility] [address] [place] [address] Dr. Reji Thomas PT Coag (PPP) [Time] 25.6 s Critically high 9.0-11.6 [facility] Comment on above: Performed By: #### B ANIMAL RESCUER, CMP, TSH, LIPID #### [facility] [address] [place] [address] Dr. Reji Thomas PROTIMEon 09-05-2022 INR Coag (PPP) [Relative time] 2.03 {INR} Normal [facility] Comment on above: Performed By: #### B ANIMAL RESCUER, CMP, TSH, LIPID #### [facility] [address] [place] [address] Dr. Reji Thomas INR GUIDELINES SEE BELOW Normal [facility] Comment on above: Result Comment: SHY RED INR: 2.0 - 3.0 CONDITIONS NOT LISTED BELOW 2.5 - 3.5 FOR PROSTHETIC HEART VALVE REPLACEMENT 2.5 - 3.5 RECURRENT THROMBOSIS Performed By: #### B ANIMAL RESCUER, CMP, TSH, LIPID #### [facility] [address] [place] [address] Dr. Reji Thomas PT Coag (PPP) [Time] 20.9 s Critically high 9.0-11.6 [facility] Comment on above: Performed By: #### B ANIMAL RESCUER, CMP, TSH, LIPID #### [facility] [address] [place] [address] Dr. Reji Thomas BNPon 08-10-2022 Natriuretic peptide B (Bld) [Mass/Vol] 1162.0 pg/mL Normal <=1,800.0 [facility] Comment on above: Performed By: #### B MP, BNP #### [facility] [address] [place] [address] Dr. Reji Thomas PROF CHEM 8 (BAS METB)on Anion gap [Moles/Vol] 11.3 mmol/L Normal [facility] Comment on above: Performed By: #### B MP, BNP #### [facility] [address] [place] [address] Dr. Reji Thomas Calcium [Mass/Vol] 8.9 mg/dL Normal 8.5-10.[address] [facility] Comment on above: Performed By: #### B MP, BNP #### [facility] [address] [place] [address] Dr. Reji Thomas Chloride [Moles/Vol] 103 mmol/L Normal 98-107 [facility] Comment on above: Performed By: #### B MP, BNP #### [facility] [address] [place] [address] Dr. Reji Thomas CO2 [Moles/Vol] 28.2 mmol/L Normal 21.0-32.0 [facility] Comment on above: Performed By: #### B MP, BNP #### [facility] [address] [place] [address] Dr. Reji Thomas Creatinine [Mass/Vol] 2.07 mg/dL Critically high 0.55-1.02 [facility] Comment on above: Performed By: #### B MP, BNP #### [facility] [address] [place] [address] Dr. Reji Thomas EGFR-AF FINNISH 28 mL/min/1.73m2 Critically low >=60 [facility] Comment on above: Performed By: #### B MP, BNP #### [facility] [address] [address] [address] Reji Thomas EGFR-NON AF FINNISH 23 mL/min/1.73m2 Critically low >=60 [facility] Comment on above: Performed By: #### B MP, BNP #### [facility] [address] [address] [address] Reji Thomas Glucose [Mass/Vol] 88 mg/dL Normal 74-[address] [facility] Comment on above: Performed By: #### B MP, BNP #### [facility] [address] [place] [address] Dr. Reji Thomas Potassium [Moles/Vol] 4.5 mmol/L Normal 3.5-5.1 [facility] Comment on above: Performed By: #### B MP, BNP #### [facility] [address] [place] [address] Dr. Reji Thomas Sodium [Moles/Vol] 138 mmol/L Normal 136-[address] [facility] Comment on above: Performed By: #### B MP, BNP #### [facility] [address] [place] [address] Dr. Reji Thomas Urea nitrogen [Mass/Vol] 35.0 mg/dL Critically high 7.0-18.0 [facility] Comment on above: Performed By: #### B MP, BNP #### [facility] [address] [place] [address] Dr. Reji Thomas Urea nitrogen/Creatinine [Mass ratio] 16.9 mg/mg Normal [facility] Comment on above: Performed By: #### B MP, BNP #### [facility] [address] [place] [address] Dr. Reji Thomas PROTIMEon 08-09-2022 INR Coag (PPP) [Relative time] 2.04 {INR} Normal [facility] Comment on above: Performed By: #### B ANIMAL RESCUER, CMP, TSH, LIPID #### [facility] [address] [place] [address] Dr. Reji Thomas INR GUIDELINES SEE BELOW Normal [facility] Comment on above: Result Comment: SHY RED INR: 2.0 - 3.0 CONDITIONS NOT LISTED BELOW 2.5 - 3.5 FOR PROSTHETIC HEART VALVE REPLACEMENT 2.5 - 3.5 RECURRENT THROMBOSIS Performed By: #### B ANIMAL RESCUER, CMP, TSH, LIPID #### [facility] [address] [place] [address] Dr. Reji Thomas PT Coag (PPP) [Time] 21.0 s Critically high 9.0-11.6 [facility] Comment on above: Performed By: #### B ANIMAL RESCUER, CMP, TSH, LIPID #### [facility] [address] [place] [address] Dr. Reji Thomas BNPon 07-09-2022 Natriuretic peptide B (Bld) [Mass/Vol] 2085.0 pg/mL Critically high <=1,800.0 [facility] Comment on above: Result Comment: CRIT ICAL CALLED TO OFFICE ON 07-10-22 AT 0850 BY AR Performed By: #### B ANIMAL RESCUER, CMP, TSH, LIPID #### [facility] [address] [place] [address] Dr. Reji Thomas PROF CHEM 8 (BAS METB)on Anion gap [Moles/Vol] 13.7 mmol/L Normal [facility] Comment on above: Performed By: #### B ANIMAL RESCUER, CMP, TSH, LIPID #### [facility] [address] [place] [address] Dr. Reji Thomas Calcium [Mass/Vol] 8.3 mg/dL Critically low 8.5-10.[address] [facility] Comment on above: Performed By: #### B ANIMAL RESCUER, CMP, TSH, LIPID #### [facility] [address] [place] [address] Dr. Reji Thomas Chloride [Moles/Vol] 104 mmol/L Normal 98-107 [facility] Comment on above: Performed By: #### B ANIMAL RESCUER, CMP, TSH, LIPID #### [facility] [address] [place] [address] Dr. Reji Thomas CO2 [Moles/Vol] 26.6 mmol/L Normal 21.0-32.0 [facility] Comment on above: Performed By: #### B ANIMAL RESCUER, CMP, TSH, LIPID #### [facility] [address] [address] [address] Reji Thomas Creatinine [Mass/Vol] 1.98 mg/dL Critically high 0.55-1.02 [facility] Comment on above: Performed By: #### B ANIMAL RESCUER, CMP, TSH, LIPID #### [facility] [address] [address] [address] Reji Thomas EGFR-AF FINNISH 29 mL/min/1.73m2 Critically low >=60 [facility] Comment on above: Performed By: #### B ANIMAL RESCUER, CMP, TSH, LIPID #### [facility] [address] [place] [address] Dr. Reji Thomas EGFR-NON AF FINNISH 24 mL/min/1.73m2 Critically low >=60 [facility] Comment on above: Performed By: #### B ANIMAL RESCUER, CMP, TSH, LIPID #### [facility] [address] [address] [address] Reji Thomas Glucose [Mass/Vol] 116 mg/dL Critically high 74-106 [facility] Comment on above: Performed By: #### B ANIMAL RESCUER, CMP, TSH, LIPID #### [facility] [address] [address] [address] Reji Thomas Potassium [Moles/Vol] 4.3 mmol/L Normal 3.5-5.1 [facility] Comment on above: Performed By: #### B ANIMAL RESCUER, CMP, TSH, LIPID #### [facility] [address] [address] [address] Reji Thomas Sodium [Moles/Vol] 140 mmol/L Normal 136-[address] [facility] Comment on above: Performed By: #### B ANIMAL RESCUER, CMP, TSH, LIPID #### [facility] [address] [address] [address] Reji Thomas Urea nitrogen [Mass/Vol] 35.0 mg/dL Critically high 7.0-18.0 [facility] Comment on above: Performed By: #### B ANIMAL RESCUER, CMP, TSH, LIPID #### [facility] [address] [address] [address] Reji Thomas Urea nitrogen/Creatinine [Mass ratio] 17.7 mg/mg Normal [facility] Comment on above: Performed By: #### B ANIMAL RESCUER, CMP, TSH, LIPID #### [facility] [address] [place] [address] Dr. Reji Thomas PROTIMEon 07-09-2022 INR Coag (PPP) [Relative time] 2.99 {INR} Normal [facility] Comment on above: Performed By: #### B ANIMAL RESCUER, CMP, TSH, LIPID #### [facility] [address] [place] [address] Dr. Reji Thomas INR GUIDELINES SEE BELOW Normal [facility] Comment on above: Result Comment: SHY RED INR: 2.0 - 3.0 CONDITIONS NOT LISTED BELOW 2.5 - 3.5 FOR PROSTHETIC HEART VALVE REPLACEMENT 2.5 - 3.5 RECURRENT THROMBOSIS Performed By: #### B ANIMAL RESCUER, CMP, TSH, LIPID #### [facility] [address] [place] [address] Dr. Reji Thomas PT Coag (PPP) [Time] 30.1 s Critically high 9.0-11.6 [facility] Comment on above: Performed By: #### B ANIMAL RESCUER, CMP, TSH, LIPID #### [facility] [address] [place] [address] Dr. Reji Thomas US KIDNEYSon 07-06-2022 US [...] [place] Date: 2022-07-06 13:31 Normal [facility] EVAN Antinuclear Antibodieson 06-19-2022 Antinuclear Abs, IFA Positive Critically abnormal . [facility] Comment on above: Result Comment: Nega tive <1:80 Borderline 1:80 Positive >1:80 Performed By: #### Krista CHOW ADDONUAPLUS #### [facility] [address] [place] [address] #### C3, C4, CH50 #### [facility] , Homogeneous Pattern 1:320 High . [facility] Comment on above: Result Comment: ICAP nomenclature: [id number] Performed By: #### Krista CHOW ADDONUAPLUS #### [facility] [address] [place] [address] #### C3, C4, CH50 #### [facility] , Note 1 Normal . [facility] Comment on above: Result Comment: For [...] titers Nucleosomes, Histones Drug-induced SLE Speckled Sm, STATE COMPTROLLER, SCL-70, SLE,MCTD,PSS (diffuse form), SS-A/SS-B Sjogrens Nucleolar SCL-70, PM-1/SCL High titers Scleroderma, PM/DM Centromere Centromere PSS (limited form) w/Crest syndrome variable Nuclear Dot [id number] Primary Biliary Cirrhosis Nuclear GP210, Primary Biliary Cirrhosis Membrane eleonora A,B,C Performed at: [facility] [id number] Electronics Computer Mechanic: Demarcus Lawtno PhD, Phone: [phone] Performed By: #### C UU, ADDONUAPLUS #### [address] #### C3, C4, CH50 #### [facility] , Anti-RNPon 06-19-2022 Anti-STATE COMPTROLLER 0.4 Normal 0.0-0.9 [facility] Comment on above: Result Comment: Perf ormed at: [address] [id number] [employer] Computer Mechanic: Demarcus Lawton PhD, Phone: [phone] Performed By: #### C UU, ADDONUAPLUS #### [address] #### C3, C4, CH50 #### [facility] , C-Reactive Proteinon 022 C-Reactive Protein 2.0 mg/dL High 0.0-1.0 [facility] Comment on above: Result Comment: PERF ORMED BY: [place] [address] PATHOLOGIST PIANO ACCOMPANIST RADHA BULLARD M.D. Performed By: #### C UU, ADDONUAPLUS #### [address] #### C3, C4, CH50 #### [facility] , Complement C3on 06-19-2022 Complement C3 167 mg/dL Normal 82-167 [facility] Comment on above: Result Comment: Perf ormed at: [address] [id number] Electronics Computer Mechanic: Demarcus Lawton PhD, Phone: [phone] Performed By: #### C UU, ADDONUAPLUS #### [address] #### C3, C4, CH50 #### [facility] , Complement C4on 06-19-2022 Complement C4 37 mg/dL Normal 12-38 [facility] Comment on above: Performed By: #### C GERALDO ADDONUAPLUS #### [address] #### C3, C4, CH50 #### [facility] , Complement Total (CH50)on Complement Total (CH50) >60 Normal >41 [facility] Comment on above: Result Comment: Age [...] out of range values. Performed at: [facility] [id number] Electronics Computer Mechanic: Demarcus Lawton PhD, Phone: [phone] PERFORMED BY: [place] [address] PATHOLOGIST PIANO ACCOMPANIST RADHA BULLARD M.D. Performed By: #### C COURTNEY CHOWONUAPLUS #### [address] #### C3, C4, CH50 #### [facility] , Complete Blood Count Auto Di ffon 06-19-2022 Basophils (Bld) [#/Vol] 0.1 10*3/uL Normal 0.0-0.2 [facility] Comment on above: Performed By: #### H EPATIC, CBC, ESR, CRP, CREAT, CK #### [facility] [address] [place] [address] #### RNA POLYMR, ANTI TH TO, EVAN, U3 STATE COMPTROLLER, ANTIR, PM-SCL ABS #### [facility] , Basophils/100 WBC (Bld) 0.9 % Normal . [facility] Comment on above: Performed By: #### H EPATIC, CBC, ESR, CRP, CREAT, CK #### [place] [address] [place] #### RNA POLYMR, ANTI TH TO, EVAN, U3 STATE COMPTROLLER, ANTIR, PM-SCL ABS #### [facility] , Eosinophils (Bld) [#/Vol] 0.5 10*3/uL High 0.0-0.45 [facility] Comment on above: Performed By: #### H EPATIC, CBC, ESR, CRP, CREAT, CK #### [place] [address] [place] #### RNA POLYMR, ANTI TH TO, EVAN, U3 STATE COMPTROLLER, ANTIR, PM-SCL ABS #### [facility] , Eosinophils/100 WBC (Bld) 8.6 % Normal . [facility] Comment on above: Performed By: #### H EPATIC, CBC, ESR, CRP, CREAT, CK #### [place] [address] [place] #### RNA POLYMR, ANTI TH TO, EVAN, U3 STATE COMPTROLLER, ANTIR, PM-SCL ABS #### [facility] , Erythrocyte distribution width (RBC) [Ratio] 19.6 % High 11.9-15.3 [facility] Comment on above: Performed By: #### H EPATIC, CBC, ESR, CRP, CREAT, CK #### [place] [address] [place] #### RNA POLYMR, ANTI TH TO, EVAN, U3 STATE COMPTROLLER, ANTIR, PM-SCL ABS #### [facility] , Hematocrit (Bld) [Volume fraction] 33.8 % Low 34.0-46.4 [facility] Comment on above: Performed By: #### H EPATIC, CBC, ESR, CRP, CREAT, CK #### [place] [address] [place] #### RNA POLYMR, ANTI TH TO, EVAN, U3 STATE COMPTROLLER, ANTIR, PM-SCL ABS #### [facility] , Hemoglobin (Bld) [Mass/Vol] 10.9 g/dL Low 11.8-15.4 [facility] Comment on above: Performed By: #### H EPATIC, CBC, ESR, CRP, CREAT, CK #### [facility] [address] [place] [address] [place] #### RNA POLYMR, ANTI TH TO, EVAN, U3 STATE COMPTROLLER, ANTIR, PM-SCL ABS #### [facility] , Lymphocytes (Bld) [#/Vol] 1.1 10*3/uL Normal 1.00-4.8 [facility] Comment on above: Performed By: #### H EPATIC, CBC, ESR, CRP, CREAT, CK #### [place] [address] [place] #### RNA POLYMR, ANTI TH TO, EVAN, U3 STATE COMPTROLLER, ANTIR, PM-SCL ABS #### [facility] , Lymphocytes/100 WBC (Bld) 17.8 % Normal . [facility] Comment on above: Performed By: #### H EPATIC, CBC, ESR, CRP, CREAT, CK #### [place] [address] [place] #### RNA POLYMR, ANTI TH TO, EVAN, U3 STATE COMPTROLLER, ANTIR, PM-SCL ABS #### [facility] , MCH (RBC) [Entitic mass] 26.4 pg Normal 24.7-34.3 [facility] Comment on above: Performed By: #### H EPATIC, CBC, ESR, CRP, CREAT, CK #### [facility] [address] [place] [address] [place] #### RNA POLYMR, ANTI TH TO, EVAN, U3 STATE COMPTROLLER, ANTIR, PM-SCL ABS #### [facility] , MCV (RBC) [Entitic vol] 81.8 fL Normal 80-100 [facility] Comment on above: Performed By: #### H EPATIC, CBC, ESR, CRP, CREAT, CK #### [place] [address] [place] #### RNA POLYMR, ANTI TH TO, EVAN, U3 STATE COMPTROLLER, ANTIR, PM-SCL ABS #### [facility] , Mean Corpuscular HGB Conc 32.3 g/dL Normal 32.0-35.0 [facility] Comment on above: Performed By: #### H EPATIC, CBC, ESR, CRP, CREAT, CK #### [address] #### RNA POLYMR, ANTI TH TO, EVAN, U3 STATE COMPTROLLER, ANTIR, PM-SCL ABS #### [facility] , Monocytes (Bld) [#/Vol] 0.4 10*3/uL Normal 0.0-0.8 [facility] Comment on above: Performed By: #### H EPATIC, CBC, ESR, CRP, CREAT, CK #### [place] [address] [place] #### RNA POLYMR, ANTI TH TO, EVAN, U3 STATE COMPTROLLER, ANTIR, PM-SCL ABS #### [facility] , Monocytes/100 WBC (Bld) 7.4 % Normal . [facility] Comment on above: Performed By: #### H EPATIC, CBC, ESR, CRP, CREAT, CK #### [facility] [address] [place] [address] [place] #### RNA POLYMR, ANTI TH TO, EVAN, U3 STATE COMPTROLLER, ANTIR, PM-SCL ABS #### [facility] , Neutrophils (Bld) [#/Vol] 3.9 10*3/uL Normal 1.8-7.7 [facility] Comment on above: Performed By: #### H EPATIC, CBC, ESR, CRP, CREAT, CK #### [place] [address] [place] #### RNA POLYMR, ANTI TH TO, EVAN, U3 STATE COMPTROLLER, ANTIR, PM-SCL ABS #### [facility] , Neutrophils/100 WBC (Bld) 65.3 % Normal . [facility] Comment on above: Performed By: #### H EPATIC, CBC, ESR, CRP, CREAT, CK #### [address] #### RNA POLYMR, ANTI TH TO, EVAN, U3 STATE COMPTROLLER, ANTIR, PM-SCL ABS #### [facility] , Nucleated RBC/100 WBC (Bld) [Ratio] 0.0 % Normal 0-0.5 [facility] Comment on above: Performed By: #### H EPATIC, CBC, ESR, CRP, CREAT, CK #### [address] #### RNA POLYMR, ANTI TH TO, EVAN, U3 STATE COMPTROLLER, ANTIR, PM-SCL ABS #### [facility] , Platelet mean volume (Bld) [Entitic vol] 7.2 fL Normal 6.3-10.7 [facility] Comment on above: Performed By: #### H EPATIC, CBC, ESR, CRP, CREAT, CK #### [place] [address] [place] #### RNA POLYMR, ANTI TH TO, EVAN, U3 STATE COMPTROLLER, ANTIR, PM-SCL ABS #### [facility] , Platelets (Bld) [#/Vol] 237 10*3/uL Normal 150-450 [facility] Comment on above: Performed By: #### H EPATIC, CBC, ESR, CRP, CREAT, CK #### [facility] [address] [place] [address] [place] #### RNA POLYMR, ANTI TH TO, EVAN, U3 STATE COMPTROLLER, ANTIR, PM-SCL ABS #### [facility] , RBC (Bld) [#/Vol] 4.14 10*6/uL Normal 3.60-5.00 [facility] Comment on above: Performed By: #### H EPATIC, CBC, ESR, CRP, CREAT, CK #### [facility] [address] [place] [address] #### RNA POLYMR, ANTI TH TO, EVAN, U3 STATE COMPTROLLER, ANTIR, PM-SCL ABS #### [facility] , WBC (Bld) [#/Vol] 6.0 10*3/uL Normal 4.5-11.0 [facility] Comment on above: Performed By: #### H EPATIC, CBC, ESR, CRP, CREAT, CK #### [facility] [address] [place] [address] #### RNA POLYMR, ANTI TH TO, EVAN, U3 STATE COMPTROLLER, ANTIR, PM-SCL ABS #### [facility] , Creatine Kinaseon 06-19-2022 CK [Catalytic activity/Vol] 38 U/L Normal 22-269 [facility] Comment on above: Result Comment: PERF ORMED BY: [place] [address] PATHOLOGIST PIANO ACCOMPANIST RADHA BULLARD M.D. Performed By: #### H EPATIC, CBC, ESR, CRP, CREAT, CK #### [address] #### RNA POLYMR, ANTI TH TO, EVAN, U3 STATE COMPTROLLER, ANTIR, PM-SCL ABS #### [facility] , Creatinineon 06-19-2022 Creatinine [Mass/Vol] 2.82 mg/dL High 0.44-1.03 [facility] Comment on above: Performed By: #### H EPATIC, CBC, ESR, CRP, CREAT, CK #### [facility] [address] [place] [address] [place] #### RNA POLYMR, ANTI TH TO, EVAN, U3 STATE COMPTROLLER, ANTIR, PM-SCL ABS #### [facility] , Estimated GFR ( Oralia 19 Normal [facility] Comment on above: Result Comment: GFR estimated reference range: According to KDOQI guidelines, <60 ml/min/1.73m2 is sufficient to diagnose a patient with chronic kidney disease. Performed By: #### H EPATIC, CBC, ESR, CRP, CREAT, CK #### [address] #### RNA POLYMR, ANTI TH TO, EVAN, U3 STATE COMPTROLLER, ANTIR, PM-SCL ABS #### [facility] , Estimated GFR (Non- Am 16 Normal [facility] Comment on above: Performed By: #### H EPATIC, CBC, ESR, CRP, CREAT, CK #### [address] #### RNA POLYMR, ANTI TH TO, EVAN, U3 STATE COMPTROLLER, ANTIR, PM-SCL ABS #### [facility] , Dipstick and Microscopicon 0 06-19-2022 Appearance (U) Cloudy Critically abnormal Clear [facility] Comment on above: Order Comment: Name Collection Type:: Clean-Voided Midstream Performed By: #### C UU, ADDONUAPLUS #### [address] #### C3, C4, CH50 #### [facility] , Bacteria,Urine 1+ High None Seen [facility] Comment on above: Order Comment: Name Collection Type:: Clean-Voided Midstream Performed By: #### C UU, ADDONUAPLUS #### [address] #### C3, C4, CH50 #### [facility] , Bilirubin,Urine Negative Normal Negative [facility] Comment on above: Order Comment: Name Collection Type:: Clean-Voided Midstream Performed By: #### C UU, ADDONUAPLUS #### [address] #### C3, C4, CH50 #### [facility] , Color (U) Yellow Normal Yellow [facility] Comment on above: Order Comment: Name Collection Type:: Clean-Voided Midstream Performed By: #### C UU, ADDONUAPLUS #### [address] #### C3, C4, CH50 #### [facility] , Glucose Ql (U) Normal Normal Normal [facility] Comment on above: Order Comment: Name Collection Type:: Clean-Voided Midstream Performed By: #### C UU, ADDONUAPLUS #### [address] #### C3, C4, CH50 #### [facility] , Hyaline Casts,Urine 1-2 Normal 0-8 [facility] Comment on above: Order Comment: Name Collection Type:: Clean-Voided Midstream Result Comment: PERF ORMED BY: [place] [address] PATHOLOGIST PIANO ACCOMPANIST RADHA BULLARD M.D. Performed By: #### C UU, ADDONUAPLUS #### [address] #### C3, C4, CH50 #### [facility] , Ketones Ql (U) Negative Normal Negative [facility] Comment on above: Order Comment: Name Collection Type:: Clean-Voided Midstream Performed By: #### C UU, ADDONUAPLUS #### [address] #### C3, C4, CH50 #### [facility] , Leukocyte esterase Test strip Ql (U) 4+ High Negative [facility] Comment on above: Order Comment: Name Collection Type:: Clean-Voided Midstream Performed By: #### C UU, ADDONUAPLUS #### [address] #### C3, C4, CH50 #### [facility] , Nitrite,Urine Negative Normal Negative [facility] Comment on above: Order Comment: Name Collection Type:: Clean-Voided Midstream Performed By: #### C UU, ADDONUAPLUS #### [address] #### C3, C4, CH50 #### [facility] , Occult Blood,Urine 1+ High Negative [facility] Comment on above: Order Comment: Name Collection Type:: Clean-Voided Midstream Performed By: #### C UU, ADDONUAPLUS #### [address] #### C3, C4, CH50 #### [facility] , pH (U) 6.5 [pH] Normal 5.0-9.0 [facility] Comment on above: Order Comment: Name Collection Type:: Clean-Voided Midstream Performed By: #### C UU, ADDONUAPLUS #### [address] #### C3, C4, CH50 #### [facility] , Protein,Urine Trace High Negative [facility] Comment on above: Order Comment: Name Collection Type:: Clean-Voided Midstream Performed By: #### C UU, ADDONUAPLUS #### [facility] [address] [place] [address] #### C3, C4, CH50 #### [facility] , RBC,Urine 1-2 Normal 0-4 [facility] Comment on above: Order Comment: Name Collection Type:: Clean-Voided Midstream Performed By: #### C UU, ADDONUAPLUS #### [address] #### C3, C4, CH50 #### [facility] , Specificy [place],Urine 1.010 Normal 1.001-1.030 [facility] Comment on above: Order Comment: Name Collection Type:: Clean-Voided Midstream Performed By: #### C UU, ADDONUAPLUS #### [address] #### C3, C4, CH50 #### [facility] , Squamous Epithelial Cell,Urine 5-9 High 0-2 [facility] Comment on above: Order Comment: Name Collection Type:: Clean-Voided Midstream Performed By: #### C UU, ADDONUAPLUS #### [address] #### C3, C4, CH50 #### [facility] , Urobilinogen,Urine Normal Normal Normal [facility] Comment on above: Order Comment: Name Collection Type:: Clean-Voided Midstream Performed By: #### C UU, ADDONUAPLUS #### [address] #### C3, C4, CH50 #### [facility] , WBC,Urine Innumerable High 0-4 [facility] Comment on above: Order Comment: Name Collection Type:: Clean-Voided Midstream Performed By: #### C UU, ADDONUAPLUS #### [address] #### C3, C4, CH50 #### [facility] , Erythrocyte Sedimentation Ra pratik 06-19-2022 ESR (Bld) [Velocity] 57 mm/h High 0-29 [facility] Comment on above: Result Comment: PERF ORMED BY: [place] [address] PATHOLOGIST PIANO ACCOMPANIST RADHA BULLARD M.D. Performed By: #### H EPATIC, CBC, ESR, CRP, CREAT, CK #### [address] #### RNA POLYMR, ANTI TH TO, EVAN, U3 STATE COMPTROLLER, ANTIR, PM-SCL ABS #### [facility] , Hepatic Panelon 06-19-2022 Albumin [Mass/Vol] 3.6 g/dL Normal 3.2-5.5 [facility] Comment on above: Performed By: #### H EPATIC, CBC, ESR, CRP, CREAT, CK #### [facility] [address] [place] [address] #### RNA POLYMR, ANTI TH TO, EVAN, U3 STATE COMPTROLLER, ANTIR, PM-SCL ABS #### [facility] , Albumin/Globulin [Mass ratio] 1.0 {ratio} Normal [facility] Comment on above: Performed By: #### H EPATIC, CBC, ESR, CRP, CREAT, CK #### [facility] [address] [place] [address] #### RNA POLYMR, ANTI TH TO, EVAN, U3 STATE COMPTROLLER, ANTIR, PM-SCL ABS #### [facility] , ALP [Catalytic activity/Vol] 68 U/L Normal 32-92 [facility] Comment on above: Performed By: #### H EPATIC, CBC, ESR, CRP, CREAT, CK #### [facility] [address] [place] [address] [place] #### RNA POLYMR, ANTI TH TO, EVAN, U3 STATE COMPTROLLER, ANTIR, PM-SCL ABS #### [facility] , ALT [Catalytic activity/Vol] 9 U/L Low 10-60 [facility] Comment on above: Performed By: #### H EPATIC, CBC, ESR, CRP, CREAT, CK #### [facility] [address] [place] [address] [place] #### RNA POLYMR, ANTI TH TO, EVAN, U3 STATE COMPTROLLER, ANTIR, PM-SCL ABS #### [facility] , AST [Catalytic activity/Vol] 15 U/L Normal 10-42 [facility] Comment on above: Performed By: #### H EPATIC, CBC, ESR, CRP, CREAT, CK #### [place] [address] [place] #### RNA POLYMR, ANTI TH TO, EVAN, U3 STATE COMPTROLLER, ANTIR, PM-SCL ABS #### [facility] , Bilirubin [Mass/Vol] 0.6 mg/dL Normal 0.3-1.2 [facility] Comment on above: Performed By: #### H EPATIC, CBC, ESR, CRP, CREAT, CK #### [place] [address] [place] #### RNA POLYMR, ANTI TH TO, EVAN, U3 STATE COMPTROLLER, ANTIR, PM-SCL ABS #### [facility] , Bilirubin,Indirect 0.4 mg/dL Normal [facility] Comment on above: Performed By: #### H EPATIC, CBC, ESR, CRP, CREAT, CK #### [place] [address] [place] #### RNA POLYMR, ANTI TH TO, EVAN, U3 STATE COMPTROLLER, ANTIR, PM-SCL ABS #### [facility] , Bilirubin.indirect [Mass/Vol] 0.2 mg/dL Normal 0.0-0.4 [facility] Comment on above: Performed By: #### H EPATIC, CBC, ESR, CRP, CREAT, CK #### [address] #### RNA POLYMR, ANTI TH TO, EVAN, U3 STATE COMPTROLLER, ANTIR, PM-SCL ABS #### [facility] , Globulin (S) [Mass/Vol] 3.5 g/dL Normal [facility] Comment on above: Performed By: #### H EPATIC, CBC, ESR, CRP, CREAT, CK #### [place] [address] [place] #### RNA POLYMR, ANTI TH TO, EVAN, U3 STATE COMPTROLLER, ANTIR, PM-SCL ABS #### [facility] , Protein [Mass/Vol] 7.1 g/dL Normal 6.1-7.9 [facility] Comment on above: Performed By: #### H EPATIC, CBC, ESR, CRP, CREAT, CK #### [facility] [address] [place] [address] #### RNA POLYMR, ANTI TH TO, EVAN, U3 STATE COMPTROLLER, ANTIR, PM-SCL ABS #### [facility] , PM-SCL Antibodieson 06-19-20 22 RAIZA PM-Scl Antibody <20 Normal <20 [facility] Comment on above: Result Comment: This test was developed and its performance characteristics determined by [facility]. It has not been cleared or approved by the Food and Drug Administration. Negative: <20 Weak Positive: 20 - 39 Moderate Positive: 40 - 80 Strong Positive: >80 Performed at: [facility] [address] [place] [address] [id number] [employer] Computer Mechanic: Artemio Nair MD, Phone: [phone] Performed By: #### C UU, ADDONUAPLUS #### [address] #### C3, C4, CH50 #### [facility] , RNA Polymerase IIion 022 RNA Polymerase IIi <20 Normal <20 [facility] Comment on above: Result Comment: Nega tive: <20 Weak Positive: 20 - 39 Moderate Positive: 40 - 80 Strong Positive: >80 Performed at: [facility] [employer] [address] [place] [address] [id number] [employer] Computer Mechanic: Artemio Nair MD, Phone: [phone] PERFORMED BY: [place] [address] PATHOLOGIST PIANO ACCOMPANIST RADHA BULLARD M.D. Performed By: #### C UU, ADDONUAPLUS #### [place] [address] [place] #### C3, C4, CH50 #### [facility] , Th/To Antibodyon 06-19-2022 Th/To Antibody Negative Normal Negative [facility] Comment on above: Result Comment: This test was developed and its performance characteristics determined by [facility]. It has not been cleared or approved by the Food and Drug Administration. Performed at: [facility] [address] [place] [address] [id number] [employer]ic: Artemio Nair MD, Phone: [phone] Performed By: #### C UU, ADDONUAPLUS #### [facility] [address] [place] [address] #### C3, C4, CH50 #### [facility] , U3 Rnpon 06-19-2022 U3 Pot Pusher Negative Normal Negative [facility] Comment on above: Result Comment: This test was developed and its performance characteristics determined by [facility]. It has not been cleared or approved by the Food and Drug Administration. Performed at: [facility] [address] [place] [address] [id number] [employer]ic: Artemio Nair MD, Phone: [phone] PERFORMED BY: [place] [address] PATHOLOGIST PIANO ACCOMPANIST RADHA BULLARD M.D. Performed By: #### C UU, ADDONUAPLUS #### [address] #### C3, C4, CH50 #### [facility] , Urine Cultureon 06-19-2022 Bacteria identified Cx Nom (U) No Growth 2 Days PERFORMED BY: [place] [address] PATHOLOGIST PIANO ACCOMPANIST RADHA BULLARD M.D. [facility] Comment on above: Performed By: #### C UU, ADDONUAPLUS #### [address] #### C3, C4, CH50 #### [facility] , PROF CHEM 8 (BAS METB)on Anion gap [Moles/Vol] 12.5 mmol/L Normal [facility] Comment on above: Performed By: #### B MP #### [facility] [address] [address] [address] Reji Thomas Calcium [Mass/Vol] 8.9 mg/dL Normal 8.5-10.[address] [facility] Comment on above: Performed By: #### B MP #### [facility] [address] [address] [address] Reji Thomas Chloride [Moles/Vol] 103 mmol/L Normal 98-107 [facility] Comment on above: Performed By: #### B MP #### [facility] [address] [address] [address] Reji Thomas CO2 [Moles/Vol] 26.1 mmol/L Normal 21.0-32.0 [facility] Comment on above: Performed By: #### B MP #### [facility] [address] [place] [address] Dr. Reji Thomas Creatinine [Mass/Vol] 2.09 mg/dL Critically high 0.55-1.02 [facility] Comment on above: Performed By: #### B MP #### [facility] [address] [place] [address] Dr. Reji Thomas EGFR-AF FINNISH 27 mL/min/1.73m2 Critically low >=60 [facility] Comment on above: Performed By: #### B MP #### [facility] [address] [place] [address] Dr. Reji Thomas EGFR-NON AF FINNISH 23 mL/min/1.73m2 Critically low >=60 [facility] Comment on above: Performed By: #### B MP #### [facility] [address] [address] [address] Reji Thomas Glucose [Mass/Vol] 96 mg/dL Normal 74-106 [facility] Comment on above: Performed By: #### B MP #### [facility] [address] [place] [address] Dr. Reji Thomas Potassium [Moles/Vol] 4.6 mmol/L Normal 3.5-5.1 [facility] Comment on above: Performed By: #### B MP #### [facility] [address] [address] [address] Reji Thomas Sodium [Moles/Vol] 137 mmol/L Normal 136-[address] [facility] Comment on above: Performed By: #### B MP #### [facility] [address] [address] [address] Reji Thomas Urea nitrogen [Mass/Vol] 38.0 mg/dL Critically high 7.0-18.0 [facility] Comment on above: Performed By: #### B MP #### [facility] [address] [place] [address] Dr. Reji Thomas Urea nitrogen/Creatinine [Mass ratio] 18.2 mg/mg Normal [facility] Comment on above: Performed By: #### B MP #### [facility] [address] [place] [address] Dr. Reji Thomas PROTIMEon 06-04-2022 INR Coag (PPP) [Relative time] 2.51 {INR} Normal [facility] Comment on above: Performed By: #### B ANIMAL RESCUER, CMP, TSH, LIPID #### [facility] [address] [place] [address] Dr. Reji Thomas INR GUIDELINES SEE BELOW Normal [facility] Comment on above: Result Comment: SHY RED INR: 2.0 - 3.0 CONDITIONS NOT LISTED BELOW 2.5 - 3.5 FOR PROSTHETIC HEART VALVE REPLACEMENT 2.5 - 3.5 RECURRENT THROMBOSIS Performed By: #### B ANIMAL RESCUER, CMP, TSH, LIPID #### [facility] [address] [place] [address] Dr. Reji Thomas PT Coag (PPP) [Time] 25.5 s Critically high 9.0-11.6 [facility] Comment on above: Performed By: #### B ANIMAL RESCUER, CMP, TSH, LIPID #### [facility] [address] [place] [address] Dr. Reji Thomas BNPon 05-15-2022 Natriuretic peptide B (Bld) [Mass/Vol] 3661.0 pg/mL Critically high <=1,800.0 [facility] Comment on above: Performed By: #### B ANIMAL RESCUER, CMP, TSH, LIPID #### [facility] [address] [place] [address] Dr. Reji Thomas CBC AUTO DIFFon 05-15-2022 BASO # 0.1 103/ul Normal 0.0-0.1 [facility] Comment on above: Performed By: #### B MP #### [facility] [address] [address] [address] Reji Thomas Basophils/100 WBC (Bld) 1.1 % Normal 0.2-2.0 [facility] Comment on above: Performed By: #### B MP #### [facility] [address] [place] [address] Dr. Reji Thomas EO # 0.5 103/ul Normal 0.0-0.7 [facility] Comment on above: Performed By: #### B MP #### [facility] [address] [place] [address] Dr. Reji Thomas Eosinophils/100 WBC (Bld) 6.5 % Normal 0.9-7.0 [facility] Comment on above: Performed By: #### B MP #### [facility] [address] [place] [address] Dr. Reji Thomas Erythrocyte distribution width (RBC) [Ratio] 16.1 % Critically high 11.0-15.0 [facility] Comment on above: Performed By: #### B MP #### [facility] [address] [place] [address] Dr. Reji Thomas Hematocrit (Bld) [Volume fraction] 35.0 % Critically low 36.0-48.0 [facility] Comment on above: Performed By: #### B MP #### [facility] [address] [place] [address] Dr. Reji Thomas Hemoglobin (Bld) [Mass/Vol] 11.1 g/dL Critically low 12.0-16.0 [facility] Comment on above: Performed By: #### B MP #### [facility] [address] [place] [address] Dr. Reji Thomas IG # 0.02 10e3/ul Normal 0.00-0.03 [facility] Comment on above: Performed By: #### B MP #### [facility] [address] [place] [address] Dr. Reji Thomas IG % 0.3 % Normal 0.0-0.5 [facility] Comment on above: Performed By: #### B MP #### [facility] [address] [place] [address] Dr. Reji Thomas LYMPH # 1.6 103/ul Normal 1.2-3.8 [facility] Comment on above: Performed By: #### B MP #### [facility] [address] [place] [address] Dr. Reji Thomas Lymphocytes/100 WBC (Bld) 22.4 % Normal 20.5-60.0 [facility] Comment on above: Performed By: #### B MP #### [facility] [address] [place] [address] Dr. Reji Thomas MANUAL DIFF REQ NO Normal [facility] Comment on above: Performed By: #### B MP #### [facility] [address] [place] [address] Dr. Reji Thomas MCH (RBC) [Entitic mass] 26.4 pg Critically low 26.7-34.0 [facility] Comment on above: Performed By: #### B MP #### [facility] [address] [place] [address] Dr. Reji Thomas MCHC (RBC) [Mass/Vol] 31.7 g/dL Normal 29.9-35.2 [facility] Comment on above: Performed By: #### B MP #### [facility] [address] [place] [address] Dr. Reji Thomas MCV (RBC) [Entitic vol] 83.1 fL Normal 81.0-99.0 [facility] Comment on above: Performed By: #### B MP #### [facility] [address] [place] [address] Dr. Reji Thomas MONO # 0.9 103/ul Critically high 0.3-0.8 [facility] Comment on above: Performed By: #### B MP #### [facility] [address] [place] [address] Dr. Reji Thoams Monocytes/100 WBC (Bld) 12.1 % Critically high 1.7-12.0 [facility] Comment on above: Performed By: #### B MP #### [facility] [address] [place] [address] Dr. Reji Thomas NEUT # 4.1 103/ul Normal 1.4-6.5 [facility] Comment on above: Performed By: #### B MP #### [facility] [address] [place] [address] Dr. Reji Thomas Neutrophils/100 WBC (Bld) 57.6 % Normal 43.0-75.0 [facility] Comment on above: Performed By: #### B MP #### [facility] [address] [place] [address] Dr. Reji Thomas Platelet mean volume (Bld) [Entitic vol] 8.8 fL Critically low 9.5-13.5 [facility] Comment on above: Performed By: #### B MP #### [facility] [address] [place] [address] Dr. Reji Thomas PLT 253 103/ul Normal 150-450 [facility] Comment on above: Performed By: #### B MP #### [facility] [address] [place] [address] Dr. Reji Thomas RBC 4.21 106/ul Normal 4.20-5.40 [facility] Comment on above: Performed By: #### B MP #### [facility] [address] [place] [address] Dr. Reji Thomas WBC 7.1 103/ul Normal 4.0-11.0 [facility] Comment on above: Performed By: #### B MP #### [facility] [address] [place] [address] Dr. Reji Thomas PROF CHEM 8 (BAS METB)on Anion gap [Moles/Vol] 10.5 mmol/L Normal [facility] Comment on above: Performed By: #### B ANIMAL RESCUER, CMP, TSH, LIPID #### [facility] [address] [address] [address] Reji Thomas Calcium [Mass/Vol] 8.9 mg/dL Normal 8.5-10.[address] [facility] Comment on above: Performed By: #### B ANIMAL RESCUER, CMP, TSH, LIPID #### [facility] [address] [address] [address] Reji Thomas Chloride [Moles/Vol] 104 mmol/L Normal 98-107 [facility] Comment on above: Performed By: #### B ANIMAL RESCUER, CMP, TSH, LIPID #### [facility] [address] [address] [address] Reji Thomas CO2 [Moles/Vol] 29.5 mmol/L Normal 21.0-32.0 [facility] Comment on above: Performed By: #### B ANIMAL RESCUER, CMP, TSH, LIPID #### [facility] [address] [place] [address] Dr. Reji Thomas Creatinine [Mass/Vol] 1.73 mg/dL Critically high 0.55-1.02 [facility] Comment on above: Performed By: #### B ANIMAL RESCUER, CMP, TSH, LIPID #### [facility] [address] [place] [address] Dr. Reji Thomas EGFR-AF FINNISH 34 mL/min/1.73m2 Critically low >=60 [facility] Comment on above: Performed By: #### B ANIMAL RESCUER, CMP, TSH, LIPID #### [facility] [address] [place] [address] Dr. Reji Thomas EGFR-NON AF FINNISH 28 mL/min/1.73m2 Critically low >=60 [facility] Comment on above: Performed By: #### B ANIMAL RESCUER, CMP, TSH, LIPID #### [facility] [address] [address] [address] Reji Thomas Glucose [Mass/Vol] 79 mg/dL Normal 74-106 [facility] Comment on above: Performed By: #### B ANIMAL RESCUER, CMP, TSH, LIPID #### [facility] [address] [place] [address] Dr. Reji Thomas Potassium [Moles/Vol] 4.0 mmol/L Normal 3.5-5.1 [facility] Comment on above: Performed By: #### B ANIMAL RESCUER, CMP, TSH, LIPID #### [facility] [address] [place] [address] Dr. Reji Thomas Sodium [Moles/Vol] 140 mmol/L Normal 136-[address] [facility] Comment on above: Performed By: #### B ANIMAL RESCUER, CMP, TSH, LIPID #### [facility] [address] [place] [address] Dr. Reji Thomas Urea nitrogen [Mass/Vol] 22.0 mg/dL Critically high 7.0-18.0 [facility] Comment on above: Performed By: #### B ANIMAL RESCUER, CMP, TSH, LIPID #### [facility] [address] [place] [address] Dr. Reji Thomas Urea nitrogen/Creatinine [Mass ratio] 12.7 mg/mg Normal [facility] Comment on above: Performed By: #### B ANIMAL RESCUER, CMP, TSH, LIPID #### [facility] [address] [place] [address] Dr. Reji Thomas PROTIMEon 05-15-2022 INR Coag (PPP) [Relative time] 2.53 {INR} Normal [facility] Comment on above: Performed By: #### B ANIMAL RESCUER, CMP, TSH, LIPID #### [facility] [address] [place] [address] Dr. Reji Thomas INR GUIDELINES SEE BELOW Normal [facility] Comment on above: Result Comment: SHY RED INR: 2.0 - 3.0 CONDITIONS NOT LISTED BELOW 2.5 - 3.5 FOR PROSTHETIC HEART VALVE REPLACEMENT 2.5 - 3.5 RECURRENT THROMBOSIS Performed By: #### B ANIMAL RESCUER, CMP, TSH, LIPID #### [facility] [facility] [address] [place] [address] Dr. Reji Thomas PT Coag (PPP) [Time] 25.7 s Critically high 9.0-11.6 [facility] Comment on above: Performed By: #### B ANIMAL RESCUER, CMP, TSH, LIPID #### [facility] [address] [address] [address] Reji Thomas ECHOCARDIO M/2D COMPLETEon 0 05-04-2022 ECHOCARDIO M/2D COMPLETE Patient: INEZ JUAREZ Exam Date: 05/04/2022 : 1940 Gender:F Ordering : DR JENN PRADO M.D. Admission #: [id number] Family : Order #: [id number] CLICK HERE TO VIEW EXAM ECHOCARDIOGRAM REPORT [...] Area(A4C): 27.20 cm2 Left Atrium Systolic Volume(A2C): 497689 mm3 Left Atrium Systolic Volume(A4C): 81422 mm3 Mitral Valve MV E to A Ratio: 2.60 Deceleration [place]: 72414 mm/s2 Mitral Valve A-Wave Peak Velocity: 58.60 [...] on 05/07/2022 at 11:39 Normal [facility] EVAN by IFAon 04-19-2022 Antinuclear Antibodies, IFA Positive Abnormal [facility] Comment on above: Result Comment: Nega tive <1:80 Borderline 1:80 Positive >1:80 Performed By: #### B ANIMAL RESCUER, CMP, TSH, LIPID #### [facility] [address] [address] [address] Reji Thomas Centriole Pattern Normal [facility] Comment on above: Performed By: #### B ANIMAL RESCUER, CMP, TSH, LIPID #### [facility] [address] [id number] [address] Reji Thomas Centromere Pattern Normal [facility] Comment on above: Performed By: #### B ANIMAL RESCUER, CMP, TSH, LIPID #### [facility] [address] [place], [place] [address] Dr. Reji Thomas Homogeneous Pattern 1:320 Critically high The [facility] Comment on above: Result Comment: ICAP nomenclature: AC-1 Performed By: #### B ANIMAL RESCUER, CMP, TSH, LIPID #### [facility] [address] [place], [place] [address] Dr. Reji Thomas Midbody Pattern Normal [facility] Comment on above: Performed By: #### B ANIMAL RESCUER, CMP, TSH, LIPID #### [facility] [address] [place], [place] [address] Dr. Reji Thomas Note: Comment Normal [facility] Comment on above: Result Comment: For more [...] titers Nucleosomes, Histones Drug-induced SLE Speckled Sm, STATE COMPTROLLER, SCL-70, SLE,MCTD,PSS (diffuse form), SS-A/SS-B Sjogrens Nucleolar SCL-70, PM-1/SCL High titers Scleroderma, PM/DM Centromere Centromere PSS (limited form) w/Crest syndrome variable Nuclear Dot [id number] Primary Biliary Cirrhosis Nuclear GP210, Primary Biliary Cirrhosis Membrane eleonora A,B,C Performed By: #### B ANIMAL RESCUER, CMP, TSH, LIPID #### [facility] [address] [place] [address] Dr. Reji Thomas Nuclear Dot Pattern Normal The [facility] Comment on above: Performed By: #### B ANIMAL RESCUER, CMP, TSH, LIPID #### [facility] [address] [place] [address] Dr. Reji Thomas Nuclear Membrane Pattern Normal [facility] Comment on above: Performed By: #### B ANIMAL RESCUER, CMP, TSH, LIPID #### [facility] [address] [place] [address] Dr. Reji Thomas Nucleolar Pattern Normal [facility] Comment on above: Performed By: #### B ANIMAL RESCUER, CMP, TSH, LIPID #### [facility] [address] [address] [address] Reji Thomas PCNA Pattern Normal [facility] Comment on above: Performed By: #### B ANIMAL RESCUER, CMP, TSH, LIPID #### [facility] [address] [address] [address] Reji Thomas Speckled Pattern Normal The [facility] Comment on above: Performed By: #### B ANIMAL RESCUER, CMP, TSH, LIPID #### [facility] [address] [address] [address] Reji Thomas Spindle Apparatus Pattern Normal [facility] Comment on above: Performed By: #### B ANIMAL RESCUER, CMP, TSH, LIPID #### [facility] [address] [address] [address] Reji Thomas ANCA (ANTINEUTROPHIL CYTOPLA MSMIC ABon 04-18-2022 Atypical pANCA <1:20 Normal Neg:<1:20 [facility] Comment on above: Result Comment: Seru m is slightly hemolyzed The atypical pANCA pattern has been observed in a significant percentage of patients with ulcerative colitis, primary sclerosing cholangitis and autoimmune hepatitis. Performed By: #### B MP #### [facility] [address] [address] [address] Reji Thomas Cytoplasmic (C-ANCA) <1:20 Normal Neg:<1:20 [facility] Comment on above: Result Comment: Seru m is slightly hemolyzed Performed By: #### B MP #### [facility] [address] [address] [address] Reji Thomas Perinuclear (P-ANCA) <1:20 Normal Neg:<1:20 [facility] Comment on above: Result Comment: Seru m is slightly hemolyzed The presence of positive fluorescence exhibiting P-ANCA or C-ANCA patterns alone is not specific for the diagnosis of Arlene's Granulomatosis (WG) or microscopic polyangiitis. Decisions about treatment should not be based solely on ANCA IFA results. The [employer] Consensus recommends follow up testing of positive sera with both ND-3 and MPO-ANCA enzyme immunoassays. As many as 5% serum samples are positive only by EIA. Ref. AM J Clin Pathol 1999;111:507-513. Performed By: #### B MP #### [facility] [address] [place] [address] Dr. Reji Thomas ANTISCLERODERMA ABon 022 Antiscleroderma-70 Antibodies 0.3 AI Normal 0.0-0.9 [facility] Comment on above: Performed By: #### B ANIMAL RESCUER, CMP, TSH, LIPID #### [facility] [address] [place] [address] Dr. Reji Thomas T3 UPTAKEon 04-18-2022 Free Thyroxine Index 1.8 Normal 1.2-4.9 [facility] Comment on above: Performed By: #### B ANIMAL RESCUER, CMP, TSH, LIPID #### [facility] [address] [place] [address] Dr. Reji Thomas T3 Uptake 23 % Critically low 24-39 [facility] Comment on above: Performed By: #### B ANIMAL RESCUER, CMP, TSH, LIPID #### [facility] [address] [place] [address] Dr. Reji Thoams T4 LABCORPon 04-18-2022 T4 [Mass/Vol] 7.8 ug/dL Normal 4.5-12.0 [facility] Comment on above: Performed By: #### B ANIMAL RESCUER, CMP, TSH, LIPID #### [facility] [address] [place] [address] Dr. Reji Thomas BNPon 04-16-2022 Natriuretic peptide B (Bld) [Mass/Vol] 2870.0 pg/mL Critically high <=1,800.0 [facility] Comment on above: Result Comment: repe ated Performed By: #### B ANIMAL RESCUER, CMP, TSH, LIPID #### [facility] [address] [place] [address] Dr. Reji Thomas CBC AUTO DIFFon 04-16-2022 BASO # 0.1 103/ul Normal 0.0-0.1 [facility] Comment on above: Performed By: #### B ANIMAL RESCUER, CMP, TSH, LIPID #### [facility] [address] [place] [address] Dr. Reji Thomas Basophils/100 WBC (Bld) 0.9 % Normal 0.2-2.0 [facility] Comment on above: Performed By: #### B ANIMAL RESCUER, CMP, TSH, LIPID #### [facility] [address] [place] [address] Dr. Reji Thomas EO # 0.3 103/ul Normal 0.0-0.7 [facility] Comment on above: Performed By: #### B ANIMAL RESCUER, CMP, TSH, LIPID #### [facility] [address] [place] [address] Dr. Reji Thomas Eosinophils/100 WBC (Bld) 3.9 % Normal 0.9-7.0 [facility] Comment on above: Performed By: #### B ANIMAL RESCUER, CMP, TSH, LIPID #### [facility] [address] [place] [address] Dr. Reji Thomas Erythrocyte distribution width (RBC) [Ratio] 15.9 % Critically high 11.0-15.0 [facility] Comment on above: Performed By: #### B ANIMAL RESCUER, CMP, TSH, LIPID #### [facility] [address] [place] [address] Dr. Reji Thomas Hematocrit (Bld) [Volume fraction] 38.1 % Normal 36.0-48.0 [facility] Comment on above: Performed By: #### B ANIMAL RESCUER, CMP, TSH, LIPID #### [facility] [address] [place] [address] Dr. Reji Thomas Hemoglobin (Bld) [Mass/Vol] 12.1 g/dL Normal 12.0-16.0 [facility] Comment on above: Performed By: #### B ANIMAL RESCUER, CMP, TSH, LIPID #### [facility] [address] [place] [address] Dr. Reji Thomas IG # 0.02 10e3/ul Normal 0.00-0.03 [facility] Comment on above: Performed By: #### B ANIMAL RESCUER, CMP, TSH, LIPID #### [facility] [address] [place] [address] Dr. Reji Thomas IG % 0.3 % Normal 0.0-0.5 [facility] Comment on above: Performed By: #### B ANIMAL RESCUER, CMP, TSH, LIPID #### [facility] [address] [place] [address] Dr. Reji Thomas LYMPH # 1.6 103/ul Normal 1.2-3.8 [facility] Comment on above: Performed By: #### B ANIMAL RESCUER, CMP, TSH, LIPID #### [facility] [address] [place] [address] Dr. Reji Thomas Lymphocytes/100 WBC (Bld) 22.6 % Normal 20.5-60.0 [facility] Comment on above: Performed By: #### B ANIMAL RESCUER, CMP, TSH, LIPID #### [facility] [address] [place] [address] Dr. Reji Thomas MANUAL DIFF REQ NO Normal [facility] Comment on above: Performed By: #### B ANIMAL RESCUER, CMP, TSH, LIPID #### [facility] [address] [place] [address] Dr. Reji Thomas MCH (RBC) [Entitic mass] 26.5 pg Critically low 26.7-34.0 [facility] Comment on above: Performed By: #### B ANIMAL RESCUER, CMP, TSH, LIPID #### [facility] [address] [place] [address] Dr. Reji Thomas MCHC (RBC) [Mass/Vol] 31.8 g/dL Normal 29.9-35.2 [facility] Comment on above: Performed By: #### B ANIMAL RESCUER, CMP, TSH, LIPID #### [facility] [address] [place] [address] Dr. Reji Thomas MCV (RBC) [Entitic vol] 83.4 fL Normal 81.0-99.0 [facility] Comment on above: Performed By: #### B ANIMAL RESCUER, CMP, TSH, LIPID #### [facility] [address] [place] [address] Dr. Reji Thomas MONO # 0.6 103/ul Normal 0.3-0.8 [facility] Comment on above: Performed By: #### B ANIMAL RESCUER, CMP, TSH, LIPID #### [facility] [address] [place], [place] [id number] Dr. Reji Thomas Monocytes/100 WBC (Bld) 9.3 % Normal 1.7-12.0 [facility] Comment on above: Performed By: #### B ANIMAL RESCUER, CMP, TSH, LIPID #### [facility] [address] [place] [address] Dr. Reji Thomas NEUT # 4.3 103/ul Normal 1.4-6.5 [facility] Comment on above: Performed By: #### B ANIMAL RESCUER, CMP, TSH, LIPID #### [facility] [address] [place] [address] Dr. Reji Thomas Neutrophils/100 WBC (Bld) 63.0 % Normal 43.0-75.0 [facility] Comment on above: Performed By: #### B ANIMAL RESCUER, CMP, TSH, LIPID #### [facility] [address] [place] [address] Dr. Reji Thomas Platelet mean volume (Bld) [Entitic vol] 9.2 fL Critically low 9.5-13.5 [facility] Comment on above: Performed By: #### B ANIMAL RESCUER, CMP, TSH, LIPID #### [facility] [address] [place] [address] Dr. Reji Thomas PLT 211 103/ul Normal 150-450 [facility] Comment on above: Performed By: #### B ANIMAL RESCUER, CMP, TSH, LIPID #### [facility] [address] [place] [address] Dr. Reji Thomas RBC 4.57 106/ul Normal 4.20-5.40 [facility] Comment on above: Performed By: #### B ANIMAL RESCUER, CMP, TSH, LIPID #### [facility] [address] [place] [address] Dr. Reji Thomas WBC 6.9 103/ul Normal 4.0-11.0 [facility] Comment on above: Performed By: #### B ANIMAL RESCUER, CMP, TSH, LIPID #### [facility] [address] [place] [address] Dr. Reji Thomas GLYCOHEMOGLOBIN A1Con 2021 ADA RECOMMENDATION SEE BELOW Normal [facility] Comment on above: Result Comment: ADA RECOMMENDED LIMIT 4.0 - 6.0 ADA THERAPEUTIC TARGET < 7.0 ACTION SUGGESTED > 7.0 Performed By: #### B ANIMAL RESCUER, CMP, TSH, LIPID #### [facility] [address] [address] [address] Reji Thomas Glucose [Mass/Vol] 100 mg/dL Normal [facility] Comment on above: Performed By: #### B ANIMAL RESCUER, CMP, TSH, LIPID #### [facility] [address] [address] [address] Reji Thomas HbA1c (Bld) [Mass fraction] 5.1 % Normal 4.5-6.2 [facility] Comment on above: Performed By: #### B ANIMAL RESCUER, CMP, TSH, LIPID #### [facility] [address] [place] [address] Dr. Reji Thomas IRONon 04-16-2022 Iron [Mass/Vol] 42.0 ug/dL Critically low 50.0-170.0 [facility] Comment on above: Performed By: #### B ANIMAL RESCUER, CMP, TSH, LIPID #### [facility] [address] [place] [address] Dr. Reji Thomas LIPID PROFILEon 04-16-2022 CHOL-HDL RATIO NORM SEE BELOW Normal The [facility] Comment on above: Result Comment: 3.3 - 4.4 LOW RISK 4.4 - 7.1 AVERAGE RISK 7.1 - 11.0 MODERATE RISK >11.0 HIGH RISK Performed By: #### B ANIMAL RESCUER, CMP, TSH, LIPID #### [facility] [address] [address] [address] Reji Thomas Cholesterol [Mass/Vol] 176 mg/dL Normal <=200 [facility] Comment on above: Performed By: #### B ANIMAL RESCUER, CMP, TSH, LIPID #### [facility] [address] [address] [address] Reji Thomas Cholesterol in HDL [Mass/Vol] 52 mg/dL Normal 40-60 [facility] Comment on above: Performed By: #### B ANIMAL RESCUER, CMP, TSH, LIPID #### [facility] [address] [place] [address] Dr. Reji Thomas Cholesterol in LDL [Mass/Vol] 102.8 mg/dL Normal [facility] Comment on above: Performed By: #### B ANIMAL RESCUER, CMP, TSH, LIPID #### [facility] [address] [place] [address] Dr. Reij Thomas Cholesterol.total/Ch olesterol in HDL [Mass ratio] 3.4 {ratio} Normal [facility] Comment on above: Performed By: #### B ANIMAL RESCUER, CMP, TSH, LIPID #### [facility] [address] [place] [address] Dr. Reji Thomas HDL NORMAL > or = 60 mg/dl - LOW CARDIOVASCULAR RISK <40 mg/dl - HIGH CARDIOVASCULAR RISK Normal [facility] Comment on above: Performed By: #### B ANIMAL RESCUER, CMP, TSH, LIPID #### [facility] [address] [place] [address] Dr. Reji Thomas LDL CALC NORMAL SEE BELOW Normal [facility] Comment on above: Result Comment: <100 mg/dl OPTIMAL 100 - 129 mg/dl NEAR OR ABOVE OPTIMAL 130 - 159 mg/dl BORDERLINE HIGH 160 - 189 mg/dl HIGH >190 mg/dl VERY HIGH Performed By: #### B ANIMAL RESCUER, CMP, TSH, LIPID #### [facility] [address] [address] [address] Reji Thomas Triglyceride [Mass/Vol] 106 mg/dL Normal <=150 [facility] Comment on above: Performed By: #### B ANIMAL RESCUER, CMP, TSH, LIPID #### [facility] [address] [place] [address] Dr. Reji Thomas VLDL CALC 21.2 mg/dL Normal [facility] Comment on above: Performed By: #### B ANIMAL RESCUER, CMP, TSH, LIPID #### [facility] [address] [place] [address] Dr. Reji Thomas PROF 14(COMP METB)on 022 Albumin [Mass/Vol] 3.6 g/dL Normal 3.4-5.[address] [facility] Comment on above: Performed By: #### B ANIMAL RESCUER, CMP, TSH, LIPID #### [facility] [address] [address] [address] Reji Thomas Albumin/Globulin [Mass ratio] 0.9 {ratio} Normal [facility] Comment on above: Performed By: #### B ANIMAL RESCUER, CMP, TSH, LIPID #### [facility] [address] [place] [address] Dr. Reji Thomas ALP [Catalytic activity/Vol] 62 U/L Normal 46-116 [facility] Comment on above: Performed By: #### B ANIMAL RESCUER, CMP, TSH, LIPID #### [facility] [address] [place] [address] Dr. Reji Thomas ALT [Catalytic activity/Vol] 14 U/L Normal 14-59 [facility] Comment on above: Performed By: #### B ANIMAL RESCUER, CMP, TSH, LIPID #### [facility] [address] [place] [address] Dr. Reji Thomas Anion gap [Moles/Vol] 14.5 mmol/L Normal [facility] Comment on above: Performed By: #### B ANIMAL RESCUER, CMP, TSH, LIPID #### [facility] [address] [place] [address] Dr. Reji Thomas AST [Catalytic activity/Vol] 17 U/L Normal 15-37 [facility] Comment on above: Performed By: #### B ANIMAL RESCUER, CMP, TSH, LIPID #### [facility] [address] [place] [address] Dr. Reji Thomas Bilirubin [Mass/Vol] 0.6 mg/dL Normal 0.2-1.0 [facility] Comment on above: Performed By: #### B ANIMAL RESCUER, CMP, TSH, LIPID #### [facility] [address] [place] [address] Dr. Reji Thomas Calcium [Mass/Vol] 8.8 mg/dL Normal 8.5-10.[address] [facility] Comment on above: Performed By: #### B ANIMAL RESCUER, CMP, TSH, LIPID #### [facility] [address] [place] [address] Dr. Reji Thomas Chloride [Moles/Vol] 102 mmol/L Normal 98-107 [facility] Comment on above: Performed By: #### B ANIMAL RESCUER, CMP, TSH, LIPID #### [facility] [address] [place] [address] Dr. Reji Thomas CO2 [Moles/Vol] 26.3 mmol/L Normal 21.0-32.0 [facility] Comment on above: Performed By: #### B ANIMAL RESCUER, CMP, TSH, LIPID #### [facility] [address] [place] [address] Dr. Reji Thomas Creatinine [Mass/Vol] 1.76 mg/dL Critically high 0.55-1.02 [facility] Comment on above: Performed By: #### B ANIMAL RESCUER, CMP, TSH, LIPID #### [facility] [address] [place] [address] Dr. Reji Thomas EGFR-AF FINNISH 33 mL/min/1.73m2 Critically low >=60 [facility] Comment on above: Performed By: #### B ANIMAL RESCUER, CMP, TSH, LIPID #### [facility] [address] [place] [address] Dr. Reji Thomas EGFR-NON AF FINNISH 28 mL/min/1.73m2 Critically low >=60 [facility] Comment on above: Performed By: #### B ANIMAL RESCUER, CMP, TSH, LIPID #### [facility] [address] [place] [address] Dr. Reji Thomas Globulin (S) [Mass/Vol] 4.2 g/dL Normal [facility] Comment on above: Performed By: #### B ANIMAL RESCUER, CMP, TSH, LIPID #### [facility] [address] [place] [address] Dr. Reji Thomas Glucose [Mass/Vol] 81 mg/dL Normal 74-[address] [facility] Comment on above: Performed By: #### B ANIMAL RESCUER, CMP, TSH, LIPID #### [facility] [address] [place] [address] Dr. Reji Thomas Potassium [Moles/Vol] 3.8 mmol/L Normal 3.5-5.1 [facility] Comment on above: Performed By: #### B ANIMAL RESCUER, CMP, TSH, LIPID #### [facility] [address] [place] [address] Dr. Reji Thomas Protein [Mass/Vol] 7.8 g/dL Normal 6.4-8.2 [facility] Comment on above: Performed By: #### B ANIMAL RESCUER, CMP, TSH, LIPID #### [facility] [address] [place] [address] Dr. Reji Thomas Sodium [Moles/Vol] 139 mmol/L Normal 136-145 [facility] Comment on above: Performed By: #### B ANIMAL RESCUER, CMP, TSH, LIPID #### [facility] [address] [place] [address] Dr. Reji Thomas Urea nitrogen [Mass/Vol] 27.0 mg/dL Critically high 7.0-18.0 [facility] Comment on above: Performed By: #### B ANIMAL RESCUER, CMP, TSH, LIPID #### [facility] [address] [place] [address] Dr. Reji Thomas Urea nitrogen/Creatinine [Mass ratio] 15.3 mg/mg Normal The [facility] Comment on above: Performed By: #### B ANIMAL RESCUER, CMP, TSH, LIPID #### [facility] [address] [place] [address] Dr. Reji Thomas PROTIMEon 04-16-2022 INR Coag (PPP) [Relative time] 1.92 {INR} Normal [facility] Comment on above: Performed By: #### B ANIMAL RESCUER, CMP, TSH, LIPID #### [facility] [address] [place] [address] Dr. Reji Thomas INR GUIDELINES SEE BELOW Normal [facility] Comment on above: Result Comment: SHY RED INR: 2.0 - 3.0 CONDITIONS NOT LISTED BELOW 2.5 - 3.5 FOR PROSTHETIC HEART VALVE REPLACEMENT 2.5 - 3.5 RECURRENT THROMBOSIS Performed By: #### B ANIMAL RESCUER, CMP, TSH, LIPID #### [facility] [address] [place] [address] Dr. Reji Thomas PT Coag (PPP) [Time] 19.9 s Critically high 9.0-11.6 [facility] Comment on above: Performed By: #### B ANIMAL RESCUER, CMP, TSH, LIPID #### [facility] [address] [address] [address] Reji Thomas [facility] SED RATE 37 mm/hr Critically high <=30 [facility] Comment on above: Performed By: #### B ANIMAL RESCUER, CMP, TSH, LIPID #### [facility] [address] [place] [address] Dr. Reji Thomas TSHon 04-16-2022 TSH 1.941 uIU/mL Normal 0.358-3.740 [facility] Comment on above: Performed By: #### B ANIMAL RESCUER, CMP, TSH, LIPID #### [facility] [address] [place] [address] Dr. Reji Thomas TSH RANGE SEE BELOW Normal [facility] Comment on above: Result Comment: <0.3 4 UIU/ml HYPERTHYROID 0.34-5.60 UIU/ml EUTHYROID >5.60 UIU/ml HYPOTHYROID Performed By: #### B ANIMAL RESCUER, CMP, TSH, LIPID #### [facility] [address] [place] [address] Dr. Reji Thomas VITAMIN D 25 OHon 04-16-2022 VIT D 25-OH 56.6 ng/mL Normal [facility] Comment on above: Performed By: #### B ANIMAL RESCUER, CMP, TSH, LIPID #### [facility] [address] [place] [address] Dr. Reji Thomas VIT D RANGES SEE BELOW Normal [facility] Comment on above: Result Comment: <20 ng/mL Vit D deficient 20 - <30 ng/mL Vit D insufficient 30 - 100 ng/mL Vit D sufficient >100 ng/mL Potential Toxicity Performed By: #### B ANIMAL RESCUER, CMP, TSH, LIPID #### [facility] [address] [place] [address] Dr. Reji Thomas Cardiovascular Lab Reporton 11-02-2021 Cardiovascular Lab Report [facility] Patient Name: Inez Juarez MR #: [id number] [facility] Physician: Jenn Prado M.D. Department of Service Date: 11/01/2021 Medicine Birthdate: 1940 Division of Room #: Cardiology Adult Cardiovascular Services [facility] [address] [place] [address] Cardiovascular Laboratory Report INDICATION: The patient is [...] She signed consent. She was brought to laboratory specialist in a fasting state. The right neck area was prepped and draped in usual fashion. Micropuncture technique and ultrasound guidance were used for access in the right internal jugular vein. A 6-Fijian x 11 cm sheath was placed. A 6-Fijian Hernández catheter was used for heart catheterization [...] Prado M.D. Date Trans: 11/01/2021 11:22 P/alondra [id number] cc: Bruce Rizvi M.D. [address] [facility] Maryjo [facility] [address] Normal [facility] Cardiovascular Lab Reporton 06-02-2021 Cardiovascular Lab Report [facility] Patient Name: Inez Juarez MR #: [id number] [facility] Physician: Jenn Prado M.D. Department of Service Date: 06/02/2021 Medicine Birthdate: 1940 Division of Room #: CC Cardiology Adult Cardiovascular Services [facility] [address] [facility] [place] [address] Cardiovascular Laboratory Report INDICATION: The patient is [...] the informed consent. She was brought to laboratory specialist in a fasting state. The right neck area was prepped and draped in usual fashion. Using micropuncture technique and ultrasound guidance, the right internal jugular vein was accessed and a 6-Fijian x 11 cm sheath was placed. A 6-Fijian Hernández catheter was used for heart catheterization [...] Prado M.D. Date Trans: 06/02/2021 02:42 P/alondra [id number] cc: Bruce Rizvi M.D. [address] [facility] [place] [facility] [address] [facility] Encounters Encounter Date Encounter Type Care Provider Facility Start: 07-03-2024 End: 07-03-2024 ambulatory [facility] Start: 12-13-2023 End: 12-13-2023 ambulatory [facility] Start: 10-30-2023 End: 10-30-2023 ambulatory [facility] Start: 10-22-2023 End: 10-22-2023 ambulatory ANTONY LUIS [facility] Start: 03-22-2023 End: 03-23-[address] [...] Start: 11-01-2021 End: 11-02-2021 ambulatory PROVIDER UNKNOWN Facility:[facility] Start: 06-02-2021 End: 06-03-2021 ambulatory PROVIDER UNKNOWN Facility:[facility] Payers Date Payer Category Payer Medicare [id number] 1961 Medicare [id number] 1961 Medicare [id number] 1961 Self-pay [id number] 1940 Unknown [id number] 2.16.8 40.1.065121.3.579.2.647 1940 Unknown [id number] 2.16.8 40.1.663118.3.579.2.647 1938 Unknown [id number] 2.16.84 0.1.686124.3.579.2.593 1940 Unknown [id number] 2.16.84 0.1.416479.3.579.2.593 1938 Unknown [id number] 2.16.84 0.1.129480.3.579.2.593 1938 Unknown [id number] 2.16.84 0.1.663329.3.579.2.593 1938 Unknown [id number] 2.16.84 0.1.144205.3.579.2.593 1938 Unknown [id number] 2.16.84 0.1.512319.3.579.2.593 1938 Unknown [id number] 2.16.84 0.1.510468.3.579.2.593 1938 Unknown [id number] 2.16.84 0.1.574515.3.579.2.593 1938 Unknown [id number] 2.16.84 0.1.076549.3.579.2.593 1938 Unknown [id number] 2.16.84 0.1.719316.3.579.2.593 1938 Unknown [id number] 2.16.84 0.1.193491.3.579.2.593 1938 Unknown [id number] 2.16.84 0.1.909956.3.579.2.593 1938 Unknown [id number] 2.16.84 0.1.468739.3.579.2.593 1938 Unknown [id number] 2.16.84 0.1.775425.3.579.2.593 1938 Unknown [id number] 2.16.84 0.1.557458.3.579.2.593 1938 Unknown [id number] 2.16.84 0.1.708809.3.579.2.593 1938 Unknown [id number] 2.16.84 0.1.555720.3.579.2.593 1938 Unknown [id number] 2.16.84 0.1.021230.3.579.2.593 1938 Unknown [id number] 2.16.84 0.1.729032.3.579.2.593 Private Health Insurance MEB [id number] Progress note 07-03-2024 Note Date & Type Note Facility 07-03-2024 Note [place] [facility] Petrona Juarez is a 84 [...] Pulse 50 Ht (more content not included)... [facility] Progress note 12-13-2023 Note Date & Type Note Facility 12-13-2023 Note [place] [facility] Petrona Juarez is a 83 [...] Nose: Nose james (more content not included)... [facility] Progress note 10-30-2023 Note Date & Type Note Facility 10-30-2023 Note [place] [facility] Subjective Inez Juarez is a [...] Murmur heard. Systol (more content not included)... [facility] Clinical Note 10-22-2023 Note Date & Type Note Facility 10-22-2023 Note Patient: Inez Withe m Procedure Information Date/Time: 10/22/23829 Procedure: Right heart cath Location: [facility] / [facility] (Cath) Providers: Antony Smith MD [...] with fellow and attending. Additional Equipment Requests [facility] Clinical Note 10-15-2023 Note Date & Type Note Facility 10-15-[address] Smith regarding warfarin. Dr Smith requested warfarin to be held for 3 days prior to procedure. [facility] Progress note 09-19-2023 Note Date & Type Note Facility 09-19-2023 Note [facility] Summary Purpose Family History No Family History Records FoundNo Family History Records FoundNo Family History Records FoundNo Family History Records Found Advance Directives No Advanced Directives Records FoundNo Advanced Directives Records FoundNo Advanced Directives Records FoundNo Advanced Directives Records Found Additional Source Comments INFORMATION SOURCE (unrecogn ized section and content) DATE CREATED AUTHOR 11/03/2021 [facility] DATE CREATED AUTHOR AUTHOR'S ORGANIZ ATION 07/05/2022 [facility] DATE CREATED AUTHOR AUTHOR'S ORGANIZ ATION 03/23/2023 [facility] DATE CREATED AUTHOR AUTHOR'S ORGANIZ ATION 07/05/2024 [facility] FOR RECORDS PERTAINING TO PATIENTS [...] BE BASED ON THE PRIMARY CLINICAL RECORDS. [employer] [facility]. provides no warranty or guarantee of the accuracy or completeness of information in this document.
[2025-01-08 12:57] LABS: INR 3.61; Prothrombin Time 33.7 sec (9.0-11.6)
== END 2025-01-08 12:30 | disposition home or self-care (01) ==
LOC: LAB 12:30
PROVIDERS: PCP Family Medicine; Visit Provider Family Medicine
DX: I35.0 Nonrheumatic aortic (valve) stenosis (principal)
CPT/HCPCS: 36415; 85610

== ENCOUNTER 2025-02-04 13:09 | Outpatient (OUT) | payer MEDICARE, SELFPAY ==
[2025-02-04 14:12] LABS: INR 3.52; Prothrombin Time 32.9 sec (9.0-11.6)
== END 2025-02-04 13:10 | disposition home or self-care (01) ==
LOC: LAB 13:10
PROVIDERS: PCP Family Medicine; Visit Provider Family Medicine
DX: I35.0 Nonrheumatic aortic (valve) stenosis (principal)
CPT/HCPCS: 36415; 85610

== ENCOUNTER 2025-02-12 11:41 | Outpatient (OUT) | payer MEDICARE, SELFPAY ==
--- OUTSIDE RECORDS SUMMARY | 2025-02-12 12:00 | XMS_ITS ---
Author Name Auto Generated Organization OHIP Care Team Providers Care Radiation Physicist Name Role Phone JENN JC Attending Unavailable PROBLEMS DATE TYPE CONDITION / CODE ATTENDING STATUS [facility] 09/24/2023 Admitting Diagnosis Pulmonary hypertension, unspecified / I27.20(ICD-10) JENN JC [facility] 10/25/2022 Admitting Diagnosis Chronic diastolic (congestive) heart failure / I50.32(ICD-10) EVE [facility] 08/15/2022 Admitting Diagnosis Longstanding persistent atrial fibrillation / I48.11(ICD-10) EVE [facility] 08/15/2022 Admitting Diagnosis Essential (primary) hypertension / I10(ICD-10) EVE [facility] 08/15/2022 Admitting Diagnosis Chronic kidney disease, stage 3b / N18.32(ICD-10) EVE [facility] 07/03/2024 Admitting Diagnosis Nonrheumatic mitral (valve) insufficiency / I34.0(ICD-10) EVE [facility] 07/03/2024 Admitting Diagnosis Nonrheumatic tricuspid (valve) insufficiency / I36.1(ICD-10) EVE [facility] PROCEDURES No Procedure Records Found RESULTS OFFICE VISIT Observed: 07/03/2024 3:30 PM Status: COMPLETED Source: [facility] REPOSITORY [id number] Faby Juarez 1939 F Date Provider Department [place] 07/03/2024 [facility] Family History Problem Relation Age of Onset Hypertension Mother Coronary artery disease Father Hypertension Father Family Status - Relation Status Age at Mother Father Level of Service:63056 [place] OFFICE/OUTPATIENT ESTABLISHED LOW MDM 20 MIN PROGRESS Observed: 07/03/2024 3:30 PM Status: COMPLETED Source: [facility] REPOSITORY [place] [facility] Subjective Faby Juarez is a 84 y.o. year old [...] hypertension, mild mitral regurgitation, small pericardial effusion. [facility] 05/29/2021: Potassium 3.8, BUN 31, creatinine 1.76. Hemoglobin 11 [facility] 05/19/2020: K 3.7, BUN 27, Cr 2.0. [...] RVSP 61 mmHg. Stress test 06/14/2016 at [facility]: normal. No change since Visit of [...] CT scan of the chest at the [facility]. She did not have fever, chills or [...] CODE NAME / CODE REACTION SEVERITY SOURCE SYSTEMIC/[id number]( SNOMED CT) NO KNOWN ALLERGIES [facility] ENCOUNTERS ADMIT/DISCHARGE ACCOUNT NUMBER ADMITTING ENCOUNTER CLASS LOCATION SOURCE 07/03/2024/ 4 [id number] Ambulatory Building:[facility] PAYERS ENCOUNTER GUARANTOR PAYER SUBSCRIBER SOURCE 07/03/2024 Primary Insuranc e:[employer]ARE MEDICAREPolicy Number: [id number] Date:2023 FABY WITHEMDOB: [id number] [place] [address] [facility]
[2025-02-12 14:39] LABS: INR 4.49
== END 2025-02-12 11:42 | disposition home or self-care (01) ==
LOC: LAB 11:43
PROVIDERS: PCP Family Medicine; Visit Provider Family Medicine
DX: I35.0 Nonrheumatic aortic (valve) stenosis (principal)
CPT/HCPCS: 36415; 85610

== ENCOUNTER 2025-02-17 10:09 | Outpatient (RCR) | payer MEDICARE, SELFPAY ==
[2025-02-17 10:37] LABS: INR 1.89; Prothrombin Time 18.8 sec (9.0-11.6)
== END 2025-03-10 09:58 | disposition home or self-care (01) ==
LOC: LAB 10:09
PROVIDERS: PCP Family Medicine; Visit Provider Family Medicine
DX: I35.0 Nonrheumatic aortic (valve) stenosis (principal)
CPT/HCPCS: 36415; 85610

== ENCOUNTER 2025-04-01 13:32 | Outpatient (OUT) | payer MEDICARE, SELFPAY ==
--- OUTSIDE RECORDS SUMMARY | 2024-07-03 15:25 | XMS_ITS ---
Author Name Auto Generated Organization [facility] Care Team Providers Care Private Branch Exchange Installer Name Role Phone JENN JC Attending Unavailable PROBLEMS DATE TYPE CONDITION / CODE ATTENDING STATUS [facility] 09/24/2023 Admitting Diagnosis Pulmonary hypertension, unspecified / I27.20(ICD-10) JENN JC [facility] 10/25/2022 Admitting Diagnosis Chronic diastolic (congestive) heart failure / I50.32(ICD-10) [facility] 08/15/2022 Admitting Diagnosis Longstanding persistent atrial fibrillation / I48.11(ICD-10) [facility] 08/15/2022 Admitting Diagnosis Essential (primary) hypertension / I10(ICD-10) [facility] 08/15/2022 Admitting Diagnosis Chronic kidney disease, stage 3b / N18.32(ICD-10) [facility] 07/03/2024 Admitting Diagnosis Nonrheumatic mitral (valve) insufficiency / I34.0(ICD-10) [facility] 07/03/2024 Admitting Diagnosis Nonrheumatic tricuspid (valve) insufficiency / I36.1(ICD-10) [facility] PROCEDURES No Procedure Records Found RESULTS OFFICE VISIT Observed: 07/03/2024 3:30 PM Status: COMPLETED Source: [facility] [id number] Faby Juarez 1939 F Date Provider Department [place] 07/03/2024 [id number] JC CARD [facility] Family History Problem Relation Age of Onset Hypertension Mother Coronary artery disease Father Hypertension Father Family Status - Relation Status Age at Mother Father Level of Service:56440 SD OFFICE/OUTPATIENT ESTABLISHED LOW MDM 20 MIN PROGRESS Observed: 07/03/2024 3:30 PM Status: COMPLETED Source: [facility] Cardiology [facility] Petrona Juarez is a 84 y.o. year old female patient being seen for six month follow up. Pt had a echo done last month, and labs done a couple days ago. Pt has hypertension, chf, longstanding persistent afib. Pt denies, sob, lightheadedness, and palpatations. Patient Active Problem List Diagnosis Atrial fibrillation [...] Use Topics Alcohol use: Not Currently HPI Faby is a 84-year-old woman who is seen in follow up [...] hypertension, With an RVSP of 85 mmHg. At visit of 12/13/2023 I increased her sildenafil from 20 mg 3 times daily to 30 mg 3 times daily. She has been tolerating the increased dose very well. Today she reports that she has felt better on the increased dosage of sildenafil. She has shortness of breath WHO FC class II. No chest pain. No syncope although she says that she is sometimes off balance. She has mild lower extremity edema. Follow-up echocardiogram 06/08/2024 showed an RVSP improved to 59 mmHg. Blood testing from February 2024 showed stable renal function. Review of Systems Eyes: Positive for blurred vision. Cardiovascular: Negative for leg swelling (intermittent). Hematologic/Lymphatic: Bruises/bleeds easily. Musculoskeletal: Positive for gout. All other systems reviewed and are negative. Objective Visit Vitals BP 123/66 (BP Location: Left arm, Patient Position: Sitting) Pulse 50 Ht 1.524 m (5') Wt 62.1 kg (137 lb) SpO2 91% BMI 26.76 kg/m??? OB Status Postmenopausal Smoking Status Never BSA 1.62 m??? Physical Exam Constitutional: Appearance: She is well-developed. She is not ill-appearing. Comments: Thin appearing HENT: Head: Normocephalic and atraumatic. Nose: Nose normal. Eyes: General: No scleral icterus. Pupils: Pupils are equal, round, and reactive to light. Neck: Thyroid: No thyromegaly. Vascular: No JVD. Cardiovascular: Rate and Rhythm: Normal rate and regular rhythm. Pulses: Radial pulses are 2+ on the [...] present. Left lower le+ Pitting Edema present. Skin: General: Skin is warm and dry. Neurological: General: No focal deficit present. Mental Status: She is alert and oriented to person, place, and time. Psychiatric: Mood and Affect: Mood normal. Behavior: Behavior is cooperative. Judgment: Judgment normal. Allergies No Known Allergies Medications Current Outpatient Medications: albuterol 90 mcg/actuation inhaler, , Disp: , Rfl: alendronate (Fosamax) 70 mg tablet, Take 1 tablet every week by oral route for 84 days., Disp: , Rfl: allopurinol (Zyloprim) 100 mg tablet, 1 (one) time each day at the same time., Disp: , Rfl: ALPRAZolam (Xanax) 0.25 mg tablet, take 1 tablet by mouth once daily if needed, Disp: , Rfl: amLODIPine (Norvasc) 10 mg tablet, TAKE 1 TABLET BY MOUTH DAILY, Disp: 90 tablet, Rfl: 3 aspirin 81 mg chewable tablet, Chew 1 tablet every day by oral route., Disp: , Rfl: cholecalciferol, vitamin D3, 50 mcg (2,000 unit) capsule, Take 1 capsule every day by oral route for 90 days., Disp: , Rfl: citalopram (CeleXA) 40 mg tablet, Take 1 tablet every day by oral route for 90 days., Disp: , Rfl: furosemide (Lasix) 40 mg tablet, Take 1 tablet (40 mg) by mouth once daily in the evening., Disp: 90 tablet, Rfl: 3 furosemide (Lasix) 80 mg tablet, Take 1 tablet (80 mg) by mouth in the morning., Disp: 90 tablet, Rfl: 3 lansoprazole (Prevacid) [address] capsule, Take 1 capsule every day by oral route for 90 days., Disp: , Rfl: metoprolol succinate XL (Toprol-XL) 25 mg 24 hr tablet, TAKE ONE-HALF TABLET BY MOUTH DAILY, Disp: 45 tablet, Rfl: 3 potassium chloride CR (Klor-Con) 10 mEq ER tablet, TAKE 1 TABLET BY MOUTH DAILY, Disp: 90 tablet, Rfl: 3 pravastatin (Pravachol) 20 mg tablet, Take 1 tablet every day by oral route for 90 days., Disp: , Rfl: sildenafil (Revatio) 20 mg tablet, Take 1.5 tablets (30 mg) by mouth in the morning, at noon, and at bedtime., Disp: 405 tablet, Rfl: 3 warfarin (Coumadin) 5 mg tablet, , Disp: , Rfl: sacubitriL-valsartan (Entresto) 24-26 mg tablet, Take 0.5 tablets by mouth in the morning and at bedtime., Disp: , Rfl: Recent Labs No visits with results within 6 Month(s) from this visit. Latest known visit with results is: Admission on 10/22/2023, Discharged on 10/22/2023 Component Date Value INR 10/22/2023 1.6 Protime 10/22/2023 n/a QC Pass/Fail 10/22/2023 Passed QC LOT # 10/22/2023 [id number] QC Expiration Date 10/22/2023 08/10/24 Blood testing 03/10/2024: Hemoglobin 11.3, platelets 212, potassium 4.1, BUN 40, creatinine 2.13, EGFR 22, LFTs normal, NT proBNP 2582, triglycerides 140, cholesterol 208, LDL 125, HDL 55, TSH 3.483, T4 normal, free T3 normal. Blood testing 12/13/2023: Potassium 3.8, BUN 28, creatinine 2.0. eGFR 24. Blood testing 10/29/2023: Hemoglobin 10.1, platelets 248, potassium 3.6, BUN 33, creatinine 1.98, EGFR 24. Blood testing 03/22/2023: Hemoglobin 11.4, platelets 226, potassium 4.7, BUN 38, creatinine 2.32, LFTs normal, cholesterol 188, HDL 53, triglycerides 117, LDL 111. Blood testing 06/04/2022: Potassium 4.6, BUN 38, creatinine 2.09, EGFR 23. Blood testing 05/15/2022: Potassium 4.0, BUN 22, creatinine 1.73, EGFR 28, hemoglobin 11.1, platelets 253, NT proBNP 3661. Imaging and other tests Echocardiogram 06/08/2024: Global left ventricular systolic function is normal, visually estimated ejection fraction is 60 to 65%, right ventricle is mildly dilated with reduced systolic function. Severe biatrial enlargement. Grade 3 diastolic dysfunction. Mild tricuspid regurgitation. Moderate pulmonary hypertension, RVSP 59 mmHg. Mild mitral regurgitation. Mild aortic valve stenosis. Echocardiogram 12/05/2023: Normal LV systolic function, LVEF is 55 to 60%. Moderately dilated right ventricle with normal systolic function. Severe biatrial dilatation. Grade 3 diastolic dysfunction. Mild mitral and tricuspid regurgitation. Mild aortic valve stenosis. Severely elevated right-sided pressures, RVSP is 85 mmHg. No pericardial effusion. Right heart catheterization 10/22/2023: Final Impression: 1) severe PH 2) mild to moderately elevated wedge pressure Hemodynamic Data: RA: 12 mmHg RV: 89/13 mmHg PA: 92/29 (56) mmHg PCWP: 21 mmHg TP mmHg PVR: 6.7 Wood Units Systemic non-invasive BP: 142/90 mmHg CO: 5.2 L/min CI: 3.2 L/min/m2 O2 Sat: PA sat: 60% AO sat: 92% Echocardiogram 07/25/2023: Global left ventricular systolic function is normal. Ejection fraction 55 to 60%. Abnormal septal motion consistent with right ventricular pressure and/or volume overload. Grade 3 severe diastolic dysfunction. Severe biatrial enlargement. Right ventricle is normal in size with reduced systolic function. Moderate tricuspid regurgitation. Severely elevated right-sided pressures. RVSP is 91 mmHg. Mild mitral regurgitation. Mild aortic valve stenosis. Mild pulmonic regurgitation. Prior testing: Echocardiogram 05/04/2022: Normal LV systolic function LVEF 65%, mildly dilated right ventricle with preserved systolic function, severely elevated right-sided pressures, RVSP 68 mmHg. 6-minute walk test today 01/22/2022: 158.5 m, saturation dropped to 87% and recovered after 5 minutes to 96%. She had symptoms of chest tightness and dyspnea. Echocardiogram 09/27/2021: Normal LV systolic function, EF 65%, moderately dilated right ventricle with preserved systolic function, grade 3 diastolic dysfunction, moderate tricuspid regurgitation, mild mitral regurgitation, severe biatrial enlargement, severely elevated right-sided pressures, small mostly posterior pericardial effusion. Right heart catheterization 06/02/2021: 1. Severe pulmonary hypertension. 2. Normal left-sided filling pressures. 3. Mildly elevated right-sided filling pressures. 4. Reduced cardiac output and cardiac index. 5. Positive pulmonary vasoreactivity study with reduction of the PA pressures and improvement of cardiac output after adenosine intravenously. Echocardiogram 04/25/2021: LV systolic function is hyperdynamic, EF 65-70%, D-shaped septum consistent with right ventricular pressure and/or volume overload, severe biatrial enlargement, right ventricle is moderately enlarged with reduced systolic function, moderate to severe tricuspid regurgitation, severe pulmonary hypertension, mild mitral regurgitation, small pericardial effusion. [facility] 05/29/2021: Potassium 3.8, BUN 31, creatinine 1.76. Hemoglobin 11 [facility] 05/19/2020: K 3.7, BUN 27, Cr 2.0. Echocardiogram 04/19/2020: EF 65%, RVSP 71 mmHg, moderate TR. Prior testing: Echocardiogram 10/22/2019: Global left ventricular systolic function is normal (Visually estimated EF 60%). The left ventricle is normal size. Left ventricular wall thickness is normal. No regional wall motion abnormality. Normal diastolic function. Normal right ventricular systolic function. The right ventricle is normal in size. The left atrium is moderately enlarged. The right atrium is severely enlarged. Mild tricuspid regurgitation. Compared to the prior study of 04/16/19 there is no significant change. Echocardiogram 04/16/2019: Global left ventricular systolic function is normal (Visually estimated EF 60-65%). No regional wall motion abnormality. Unable to assess diastolic dysfunction. Normal right ventricular systolic function. The left atrium is moderately enlarged. The right atrium is severely enlarged. Mild mitral regurgitation. Mild tricuspid regurgitation. Doppler studies suggest severely elevated right sided pressures. RVSP 64 mmHg. There is a small pericardial effusion. Blood testing 05/08/2018: Cr 1.7, BUN 27. Blood testing 03/26/2017: Cr 1.83, BUN 29, Hb 10, Her renal function is at baseline. 03/13/2017: LDL 77. Echocardiogram 09/17/2016: Normal LV systolic function. Severe diastolic dysfunction. RVSP 61 mmHg. Stress test 06/14/2016 at [facility]: normal. No change since Visit of 09/12/2016: Faby Juarez is a 76-year-old lady who is seen in follow up. She was evaluated in cardiology clinic because of diastolic heart failure and severe pulmonary hypertension. She was referred for right heart catheterization on 08/23/2016. This showed: 1. Severely elevated filling pressures. 2. Severe pulmonary hypertension. 3. Reduced cardiac output and cardiac index. 4. Uncontrolled systemic hypertension (blood pressure 162/98). She also underwent JORDYN cardioversion that failed to revert her to sinus rhythm. She was admitted to the hospital and diuresed. She did well. She was discharged on amiodarone and toprol xl. The says that the dyspnea is much better but she feels weak and tired and stopped amiodarone yesterday. Her ECG today showed sinus bradycardia at 37 bpm. She has not dizzy. She has no chest pain. She has mild dyspnea on exertion. JORDYN on 08/23/2016: Global left ventricular systolic function is mildly to moderately reduced (Visually estimated EF 40-45%). Regional wall motion abnormalities. Normal right ventricular systolic function. The right ventricle is moderately enlarged. The left atrium is moderately enlarged. No thrombus in left appendage. The right atrium is severely enlarged. Mild to moderate mitral regurgitation. Moderate to severe tricuspid regurgitation. Doppler studies suggest severely elevated right sided pressures. Mild pulmonary regurgitation. Mild atherosclerotic plaque is seen in the aorta. There is a small pericardial effusion. Distal anterior wall and apex are akinetic. Biphasic cardioversion was performed at 300 J, and 360 J, but was unsuccessful, the patient remains in atrial fibrillation No change since visit of 08/15/2016: Faby is referred from Dr Rizvi's office for abnormal echocardiogram. She is a 76 yo lady who used to see us in the past (more than 3.5 years ago). She has history of hypertension and atrial fibrillation (diagnosed in 2008). She is on antihypertensive medications and anticoagulation with warfarin. She has history of long standing dyspnea. She was found on prior echocardiogram to have mild valvular regurgitation and mild pulmonary hypertension (in 2012). Most recently she was having worsening dyspnea and lower extremity swelling. She was found to have pleural effusions and ? pneumonia on CT scan of the chest at the [facility]. She did not have fever, chills or significant cough. She was given antibiotic and diuretic therapy (furosemide 20 mg daily and HCTZ was stopped). She had a significant improvement in symptoms. She stopped taking furosemide few days ago because her kidneys started to hurt . She has no chest pain and no palpitations. Echocardiogram on 08/09/2016: Normal LV systolic function EF 55%. Mildly reduced RV systolic function. Moderate mitral regurgitation. Moderate to severe tricuspid regurgitation. Severely increased right sided pressures. ECG 08/15/2016: atrial fibrillation, rate 69 bpm, IRBB, old septal infarct. Assessment/Plan Diagnoses and all orders for this visit: Pulmonary hypertension (CMS/HCC) - Transthoracic echo (TTE) complete; Future Chronic diastolic congestive heart failure (CMS/HCC) Longstanding persistent atrial fibrillation (CMS/HCC) Essential hypertension Non-rheumatic mitral regurgitation Nonrheumatic tricuspid valve regurgitation Stage 3b chronic kidney disease (CMS/HCC) AF: She seems to be currently in sinus rhythm by physical exam and rate controlled. She previously had a visit with her PCP Dr. Yoel Rizvi. He recommended the watchman procedure as an alternative to long-term anticoagulation given her elevated risk for stroke and prior falls. I previously had a long discussion with her regarding the procedure. I explained the risks, benefits and alternatives. She did not want to proceed with the left atrial appendage closure. She has not had any major falls recently. Pulmonary hypertension: In May 2021 her echo showed severe pulmonary hypertension that was vasoreactive by right heart catheterization. She was started on amlodipine. Follow-up echocardiogram and right heart catheterization showed persistently elevated pulmonary arterial pressures with significantly elevated pulmonary vascular resistance and elevated transpulmonary gradient in the face of normal filling pressures. Her work-up so far included a VQ scan and PFTs that were negative. She is currently on sildenafil 20 mg 3 times daily and she has responded well symptomatically with that. Her follow-up echocardiogram still showed elevated right-sided pressures with RVSP of 85 mmHg. She did not tolerate Letairis. I have increased sildenafil to 30 mg 3 times daily. She has tolerated the increased sildenafil dose very well. Follow-up echocardiogram showed RVSP improved to 59 mmHg. She is clinically doing very well without any significant symptoms. I will continue the same. She is doing better after increasing the diuretic dosage. Her leg swelling has improved. She has lost some weight. Her EVAN was previously elevated. This could have been related to hydralazine. I had stopped it. Her BMP 02/2024 shows renal function at baseline. I previously discussed return visits with rheumatology and nephrology but she prefers not to. Unless needed before, I will plan on seeing her in follow-up in 1 year with an echocardiogram to follow up on pulmonary hypertension. Follow up in about 1 year (around 07/03/2025). Jenn Jc MD ALLERGIES DATE TYPE / CODE NAME / CODE REACTION SEVERITY SOURCE SYSTEMIC/[id number]( SNOMED CT) NO KNOWN ALLERGIES [facility] ENCOUNTERS ADMIT/DISCHARGE ACCOUNT NUMBER ADMITTING ENCOUNTER CLASS LOCATION SOURCE 07/03/2024/ [id number] Ambulatory Building:[facility] PAYERS ENCOUNTER GUARANTOR PAYER SUBSCRIBER SOURCE 07/03/2024 Primary Insuranc e:[employer] MEDICAREPolicy Number: [id number] Date:2023 FABY WITHEMDOB: [id number] [place] [address] [facility]
--- OUTSIDE RECORDS SUMMARY | 2025-02-26 07:00 | XMS_ITS ---
Author Organization [facility] in [place] Address [address] [place] [address] Care Team Providers Care Administration Vice President Name Role Phone Regino Rizvi Primary Care Provider REASON FOR VISIT 6mon Encounters Encounter Location Date Provider Diagnosis [facility] [address] [place] [address] 02/26/2025 Regino Rizvi Plan Of Treatment Next Appt Details Provider Name:Regino Rizvi, 11:00:00 AM, [address] [place], [address], Progress Notes * Inez JUAREZDOB:1940 (84 yo F)Acc No.[id number]:02/26/2025 UNLOCKED PROGRESS NOTE Progress Note Patient: Inez SHARPE Provider: Melvin Rizvi MD (TTC) :1940 A ge:84 Y S ex:Female Date:02/26/2025 Address:[facility] [address], [place] Subjective: * Chief Complaints: * 1 . 6mon. * Medical History: Objective: * Vitals: Assessment: Plan: * Treatment: * * Electronic signature of Regino Rizvi MD, [id number] on 03/31/2025 at 03:57 PM EDT Sign off status: Pending Visit Status: O FF CANC (OFFICE CANCEL) * Provider: Melvin Rizvi MD (TTC) Date: 0 02/26/2025 Generated for Minda olivares/Roland/Piter on: 0 03/31/2025 03:57 PM EDT
--- OUTSIDE RECORDS SUMMARY | 2025-03-09 06:30 | XMS_ITS ---
Author Organization The [facility] in [place] Address [address] [place] [address] Care Team Providers Care Recycling Program Manager Name Role Phone Regino Rizvi Primary Care Provider Allergies Allergen (clinical drug ingredient) Drug/Non Drug Allergy documented on EMR Reaction Allergy Type Onset Date Status atorvastatin Atorvastatin Calcium Unknown Drug Allergy Active REASON FOR VISIT 6 month f/u- CSA signed Medications Medication SIG (Take, Route, Frequency, Duration) Notes Start Date End Date Status Pravastatin Sodium 20 MG TAKE 1 TABLET D AILY for Active Metoprolol Succinate ER 25 MG 1/2 tablet Orally Once a day Active Lansoprazole 30 MG TAKE 1 CAPSULE BY UTH DAILY for 90 Active Klor-Con M10 10 MEQ 1 tablet with food O rally once daily Active Furosemide 80 MG 1 tablet Orally in t he morning and 40mg at bedtime Active [facility] Iron 325 (65 Fe) MG 1 tablet Orally BID Active Citalopram Hydrobromide 40 MG 1 tablet Orally Once a day for 90 days Active Aspirin 81 81 MG 1 tablet Orally Once a day Active amLODIPine Besylate 10 MG 1 tablet Orall y Once a day Active Fish Oil Holt-3 1000 MG 1 capsule Orall y Once a day Active Xanax 0.25 MG 1 tablet Orally Twic e a day for 30 days F41.9 02/02/2025 Active Warfarin Sodium 5 MG 1 tablet Orally Onc e daily for 90 days Active Allopurinol 100 MG take 1 tablet by meseret once daily for 30 Active Alendronate Sodium 70 MG TAKE 1 TABLET B Y MOUTH WEEKLY for 84 Active Albuterol Sulfate HFA 108 (90 Base) MCG/ACT USE 2 INHALATIONS BY MOUTH 4 TIMES DAILY for 90 Active Vitamin D3 50 MCG (1999) 1 capsule Or ally Once a day for 90 days 02/28/2023 Active Sildenafil Citrate 20 MG 1 tablet Orally three times daily Active Social History Tobacco Use: Social History Observation Description Date Details (start date - stop date) Never Smoker NA - NA Tobacco Use/Smoking Question Answer Notes Patient is a nonsmoker Tobacco Control (Standard) Question Answer Notes Tobacco use: Nonsmoker Vital Signs Blood pressure systolic 134 mm Hg 03/09/20 25 Blood pressure diastolic 52 mm Hg 025 Height 57 in 03/09/2025 Weight 135.2 lbs 03/09/2025 BMI 29.25 kg/m2 03/09/2025 Procedures Procedure Date Ordered Date Performed Result Body Sit e EAR IRRIGATION - performed 03/09/2025 N/A Encounters Encounter Location Date Provider Diagnosis [facility] [address] [place] [address] 03/09/2025 Regino Rizvi Diastolic heart fail ure I50.30 ; Chronic atrial fibrillation I48.20 ; Hyperlipidemia E78.5 ; Chronic diastolic (congestive) heart failure I50.32 ; Essential (primary) hypertension I10 and Impacted cerumen of right ear H61.21 Assessments Encounter Date Diagnosis (ICD Code) Assessment Notes Treatment Notes Treatment Clinical Notes Section Notes 03/09/2025 Diastolic heart failure (ICD-10 - I50.30) 03/09/2025 Chronic atrial fibrillation (ICD-10 - I48.20) 03/09/2025 Hyperlipidemia (ICD-10 - E78.5) 03/09/2025 Chronic diastolic (congestive) heart failure (ICD-10 - I50.32) 03/09/2025 Essential (primary) hypertension (ICD-10 - I10) 03/09/2025 Impacted cerumen of right ear (ICD-10 - H61.21) Plan Of Treatment Pending Test Test Name Order Date HEMOGLOBIN A1C (GLYCO) 03/09/2025 IRON, TOTAL 03/09/2025 LIPID PANEL (CHOL/TRIG/HDL/LDL) 03/09/20 25 VITAMIN D, 25 LEVEL (TOTAL) 03/09/2025 EAR IRRIGATION - performed 03/09/2025 BNP 03/09/2025 THYROID PANEL (T4/TSH/FREE T3) CMP (COMP MET LAMA) w/eGFR CKD-EPI 2024 CBC WITH DIFF 03/09/2025 Next Appt Details Provider Name:Regino Crawford Dmitri, 11:00:00 AM, [address] [place], [address], Procedure Notes * Category Sub-Category Detail Notes ear irrigation Rt ear Ear irrigated wi th warm water, cerumen cleared from ear canal. Progress Notes * Inez JUAREZDOB:1940 (84 yo F)Acc No.[id number]:03/09/2025 Progress Note Patient: Inez SHARPE Provider: Melvin Rizvi ([facility])MD :1940 A ge:84 Y S ex:Female Date:03/09/2025 Address:[address] [place] [address] , [id number] Check In:10:20 AM ESTCheck O ut:11:14 AM EST Subjective: * Chief Complaints: * 6 month f/u- CSA signed * ROS: E ENT: hearing changes d enies. v isual changes d enies.?non-healing mouth sores d enies. s wollen glands or neck lumps d enies. h oarseness d enies. s ore throat d enies. d ifficulty swallowing d enies. n ose bleeds d enies. n higinio congestion d enies. e ar ache d enies. e ar discharge?denies. r inging in ears d enies. l ight sensitivity d enies. e ye pain d enies. b lurring d enies. e ye irritation d enies. d ouble vision d enies.?vision loss d enies. G eneral/Constitutional: Sweats: D enies. F atigue d enies. S leep problems d enies. A norexia d enies. M alaise d enies. W eight loss d enies.?Fatigue or Weakness d enies. F ever or Chills d enies. C ardiovascular: Shortness of Breath w/lying flat d enies. L ightheadedness/dizziness d enies. C hest tightness/ heavy pressure d enies. S welling of legs, ankles, or feet d enies. W aking up with shortness of breath d enies. C hest pain denies. P alpitations d enies. W eight gain d enies. R espiratory: Chronic or frequent cough d enies. C oughing up blood?denies. D ifficulty breathing d enies. P roductive cough d enies. S noring?denies. S hortness of breath that awakens from sleep (PND) d enies. C hest pain d enies. S putum production d enies. W heezing d enies. M usculoskeletal: Joint pain d enies. J oint Fluid d enies. B ack pain d enies. K nee pain d enies. N marek pain d enies. J oint Stiffness d enies. M uscle cramps d enies. W eakness of muscles d enies. A rthritis d enies. M uscle aches d enies. P ain in shoulder(s) d enies. S wollen joints d enies. * Active Problem List R53.83 Fatigue Modified On:03/04/2023U Status:confirmed E78.5 Hyperlipidemia Modified On:08/28/2023 Status:confirmed I34.0 Mitral regurgitation Modified On:03/04/2023 Status:confirmed R00.1 Bradycardia, sinus Modified On:03/04/2023 Status:confirmed I07.1 Tricuspid regurgitat ion Modified On:03/04/2023U Status:confirmed I35.0 Aortic stenosis Modified On:03/04/2023U Status:confirmed I51.7 Left ventricular hyp ertrophy Modified On:03/04/2023U Status:confirmed I50.30 Diastolic heart fail ure Modified On:03/07/2023U Status:confirmed K44.9 Hiatal hernia Modified On:03/04/2023U Status:confirmed M25.579 Ankle pain Modified On:03/04/2023U Status:confirmed I50.32 Chronic diastolic (c ongestive) heart failure Modified On:08/28/2023 Status:confirmed H40.9 Glaucoma Modified On:03/04/2023 Status:confirmed K63.5 Colon polyps Modified On:03/04/2023 Status:confirmed E66.3 Over weight Modified On:03/04/2023 Status:confirmed D50.9 Anemia, iron deficie ncy Modified On:03/04/2023 Status:confirmed R29.6 Recurrent falls Modified On:03/04/2023 Status:confirmed R60.0 Ankle edema Modified On:03/04/2023 Status:confirmed K57.90 Diverticular disease Modified On:03/04/2023 Status:confirmed N60.19 Fibrocystic breast d isease Modified On:03/04/2023 Status:confirmed K21.9 Gastro-esophageal re flux disease Modified On:08/28/2023 Status:confirmed Z91.81 At risk for falls Modified On:03/04/2023 Status:confirmed I51.7 Atrial enlargement, left Modified On:03/04/2023 Status:confirmed F41.1 Anxiety neurosis Modified On:03/07/2023 Status:confirmed Z79.01 Current use of antic oagulant therapy Modified On:03/04/2023 Status:confirmed Z86.2 History of macrocyti c anemia Modified On:03/04/2023 Status:confirmed I27.20 Pulmonary hypertensi on Modified On:03/07/2023 Status:confirmed I48.20 Chronic atrial fibri llation Modified On:02/05/2024 Status:confirmed N18.30 Chronic kidney disea se, stage 3 unspecified Modified On:03/04/2023 Status:confirmed I51.7 Atrial enlargement, right Modified On:03/04/2023 Status:confirmed I31.39 Pericardial effusion Modified On:03/04/2023 Status:confirmed I27.20 Pulmonary hypertensi on, unspecified Modified On:05/22/2023 Status:confirmed I10 Essential (primary) hypertension Modified On:05/22/2023U Status:confirmed I48.11 Longstanding persist ent atrial fibrillation Modified On:05/22/2023 Status:confirmed N18.32 Chronic kidney disea se, stage 3b Modified On:05/22/2023 Status:confirmed M10.9 Gout Modified On:08/28/2023U Status:confirmed I51.7 Cardiomegaly Modified On:12/09/2023 Status:confirmed I51.89 Other ill-defined he art diseases Modified On:12/09/2023 Status:confirmed R94.30 Abnormal result of c ardiovascular function study, unspecified Modified On:12/09/2023 Status:confirmed M81.0 Senile osteoporosis Modified On:06/03/2024 Status:confirmed * Medical History: * Surgical History: E ye surgery Bilateral Foot surgery Rig Heart Cath- Dr. Price 10/22/2023 * Hospitalization/Major Diagno stic Procedure: D enies Past Hospitalization * Family History: F ather: , Skin CancerCancer- Kidney, diagnosed with Other malignant neoplasm of unspecified site. M other: , Gallbladder removal- blood clotMigraines. B rother(s): . S ister(s): alive. S on(s): alive, crohns disease, diagnosed with Unspecified heart disease. D kvng(s): alive, Kidney Stones,Asthma. 2 brother(s) , 1 sister(s) . 1 son(s) , 1 daughter(s) . . * Social History: T obacco Use: T obacco Control (Standard) T obacco use: N onsmoker Tobacco Use/Smoking P atient is a n onsmoker * Medications: T akingAlbuterol Sulfate HFA 108 (90 Base) MCG/ACT Aerosol Solution USE 2 INHALATIONS BY MOUTH 4 TIMES DAILY Alendronate Sodium 70 MG Tablet TAKE 1 TABLET BY MOUTH WEEKLY Allopurinol 100 MG Tablet take 1 tablet by mouth once daily amLODIPine Besylate 10 MG Tablet 1 tablet Orally Once a day Aspirin 81(Aspirin) 81 MG Tablet Delayed Release 1 tablet Orally Once a day Citalopram Hydrobromide 40 MG Tablet 1 tablet Orally Once a day [facility]S Iron(Ferrous Sulfate) 325 (65 Fe) MG Tablet 1 tablet Orally BID Fish Oil Holt-3(Holt-3 Fatty Acids) 1000 MG Capsule 1 capsule Orally Once a day Furosemide 80 MG Tablet 1 tablet Orally in the morning and 40mg at bedtime Klor-Con M10(Potassium Chloride Abeba ER) 10 MEQ Tablet Extended Release 1 tablet with food Orally once daily Lansoprazole 30 MG Capsule Delayed Release TAKE 1 CAPSULE BY MOUTH DAILY Metoprolol Succinate ER 25 MG Tablet Extended Release 24 Hour 1/2 tablet Orally Once a day Pravastatin Sodium 20 MG Tablet TAKE 1 TABLET DAILY Sildenafil Citrate 20 MG Tablet 1 tablet Orally three times daily Vitamin D3 50 MCG (1999) Capsule 1 capsule Orally Once a day Warfarin Sodium 5 MG Tablet 1 tablet Orally Once daily Xanax(ALPRAZolam) 0.25 MG Tablet 1 tablet Orally Twice a day , Notes to Pharmacist: F41.9Medication List reviewed and reconciled with the patientTaking Albuterol Sulfate HFA 108 (90 Base) MCG/ACT Aerosol Solution USE 2 INHALATIONS BY MOUTH 4 TIMES DAILY Taking Alendronate Sodium 70 MG Tablet TAKE 1 TABLET BY MOUTH WEEKLY Taking Allopurinol 100 MG Tablet take 1 tablet by mouth once daily Taking amLODIPine Besylate 10 MG Tablet 1 tablet Orally Once a day Taking Aspirin 81(Aspirin) 81 MG Tablet Delayed Release 1 tablet Orally Once a day Taking Citalopram Hydrobromide 40 MG Tablet 1 tablet Orally Once a day Taking [facility]S Iron(Ferrous Sulfate) 325 (65 Fe) MG Tablet 1 tablet Orally BID Taking Fish Oil Holt-3(Holt-3 Fatty Acids) 1000 MG Capsule 1 capsule Orally Once a day Taking Furosemide 80 MG Tablet 1 tablet Orally in the morning and 40mg at bedtime Taking Klor-Con M10(Potassium Chloride Abeba ER) 10 MEQ Tablet Extended Release 1 tablet with food Orally once daily Taking Lansoprazole 30 MG Capsule Delayed Release TAKE 1 CAPSULE BY MOUTH DAILY Taking Metoprolol Succinate ER 25 MG Tablet Extended Release 24 Hour 1/2 tablet Orally Once a day Taking Pravastatin Sodium 20 MG Tablet TAKE 1 TABLET DAILY Taking Sildenafil Citrate 20 MG Tablet 1 tablet Orally three times daily Taking Vitamin D3 50 MCG (1999) Capsule 1 capsule Orally Once a day Taking Warfarin Sodium 5 MG Tablet 1 tablet Orally Once daily Taking Xanax(ALPRAZolam) 0.25 MG Tablet 1 tablet Orally Twice a day , Notes to Pharmacist: F41.9Medication List reviewed and reconciled with the patient * Allergies: A torvastatin Calcium - Criticality Highno[Allergies Verified] Objective: * Vitals: W t:135.2lbs, Ht: 57 in, BP:134/52mm Hg, BMI:29.25Index, Ht-cm: 144.78 cm, Wt-k.33 kg. * Examination: P hysical Exam: GENERAL: w ell developed, well nourished, in no acute distress. HEAD: n ormocephalic/atraumatic. EYES: p upils equal, round and reactive to light, conjunctivae and sclerae normal. EARS: n o deformity or lesion of external ear, canals and TM appear normal bilaterally, TM's intact, not inflamed with normal light reflex, hearing grossly normal to conversational speech. NOSE: n o deformity, discharge, inflammation, or lesions.? MOUTH: m ucous membranes moist, normal oropharynx and posterior pharynx without lesions or exudates, tongue normal, dentition normal. NECK: n marek supple, no masses or palpable cervical nodes, trachea midline, thyroid without nodules, masses, tenderness, or enlargement. CHEST: n o chest wall deformity, no chest wall tenderness.? LUNGS: n ormal respiratory effort and clear to auscultation, no wheezes, rales, or rhonchi, good air exchange. CARDIO: r egular rate and rhythm, normal S1 and S2, nor murmur, rub, or gallop. PULSES: n ormal capillary refill. ABDOMEN: s oft, non-distended, non-tender, no masses. MUSCULOSKELETAL: n o deformity or scoliosis noted, normal range of motion, joints normal, no erythema, edema, effusion, or ecchymosis. EXTREMITY: n o clubbing, cyanosis, edema, or deformity with normal ROM in both upper and lower bilateral extremities. NEUROLOGIC: g rossly normal. SKIN: n o rashes, ulcerations, or suspicious lesions. LYMPH NODES: n o cervical adenopathy, nodes normal. MENTAL STATUS: a lert and oriented x3, normal mood and affect. Assessment: * Assessment: 1. D iastolic heart failure - I50.30 (Primary) 2 . C hronic atrial fibrillation - I48.20 3 . H yperlipidemia - E78.5 4 . C hronic diastolic (congestive) heart failure - I50.32 5 . E ssential (primary) hypertension - I10 6 . I mpacted cerumen of right ear - H61.21 Plan: * Treatment: 2. C hronic atrial fibrillation L AB: HEMOGLOBIN A1C (GLYCO) L AB: IRON, TOTAL L AB: LIPID PANEL (CHOL/TRIG/HDL/LDL) L AB: VITAMIN D, 25 LEVEL (TOTAL) L AB: THYROID PANEL (T4/TSH/FREE T3) L AB: CMP (COMP MET LAMA) w/eGFR CKD-EPI L AB: CBC WITH DIFF 3. H yperlipidemia L AB: HEMOGLOBIN A1C (GLYCO) L AB: IRON, TOTAL L AB: LIPID PANEL (CHOL/TRIG/HDL/LDL) L AB: VITAMIN D, 25 LEVEL (TOTAL) L AB: THYROID PANEL (T4/TSH/FREE T3) L AB: CMP (COMP MET LAMA) w/eGFR CKD-EPI L AB: CBC WITH DIFF 4. C hronic diastolic (congestive) heart failure L AB: HEMOGLOBIN A1C (GLYCO) L AB: IRON, TOTAL L AB: LIPID PANEL (CHOL/TRIG/HDL/LDL) L AB: VITAMIN D, 25 LEVEL (TOTAL) L AB: THYROID PANEL (T4/TSH/FREE T3) L AB: CMP (COMP MET LAMA) w/eGFR CKD-EPI L AB: CBC WITH DIFF 5. E ssential (primary) hypertension L AB: HEMOGLOBIN A1C (GLYCO) L AB: IRON, TOTAL L AB: LIPID PANEL (CHOL/TRIG/HDL/LDL) L AB: VITAMIN D, 25 LEVEL (TOTAL) L AB: THYROID PANEL (T4/TSH/FREE T3) L AB: CMP (COMP MET LAMA) w/eGFR CKD-EPI L AB: CBC WITH DIFF * Procedures: e ar irrigation: Rt ear E ar irrigated with warm water, cerumen cleared from ear canal.. * Procedure Codes: 6 9209 REMOVE IMPACTED CERUMEN * * Sign off status: Completed Visit Status: C HK (Check Out) true * Provider: Melvin Rizvi ([facility])MD Date: 0 03/09/2025 Generated for Cherrii marshall/Roland/eTransmitting on: 0 03/31/2025 03:57 PM EDT History and Physical Notes * Examination Category Sub-Category Detail Notes Category Not es Physical Exam GENERAL: well developed, well nourished, in no acute distress HEAD: normocephalic/atraum atic EYES: pupils equal, round and reactive to light, conjunctivae and sclerae normal EARS: no deformity or lesi on of external ear, canals and TM appear normal bilaterally, TM's intact, not inflamed with normal light reflex, hearing grossly normal to conversational speech NOSE: no deformity, discha rge, inflammation, or lesions MOUTH: mucous membranes traci st, normal oropharynx and posterior pharynx without lesions or exudates, tongue normal, dentition normal NECK: neck supple, no mass es or palpable cervical nodes, trachea midline, thyroid without nodules, masses, tenderness, or enlargement CHEST: no chest wall deform ity, no chest wall tenderness LUNGS: normal respiratory e ffort and clear to auscultation, no wheezes, rales, or rhonchi, good air exchange CARDIO: regular rate and rhy thm, normal S1 and S2, nor murmur, rub, or gallop PULSES: normal capillary ref ill ABDOMEN: soft, non-distended, non-tender, no masses RECTAL: MUSCULOSKELETAL: no deformity or scol iosis noted, normal range of motion, joints normal, no erythema, edema, effusion, or ecchymosis EXTREMITY: no clubbing, cyanosi s, edema, or deformity with normal ROM in both upper and lower bilateral extremities NEUROLOGIC: grossly normal SKIN: no rashes, ulceratio ns, or suspicious lesions LYMPH NODES: no cervical adenopat hy, nodes normal MENTAL STATUS: alert and oriented x 3, normal mood and affect
--- OUTSIDE RECORDS SUMMARY | 2025-03-31 15:57 | XMS_ITS | Encounter Summary ---
Author Organization [facility] Address [address] [place] [address] Care Team Providers Care Cannoneer Name Role Phone Yoel Rizvi MD Primary Care Provider [phone] Reason for Visit * Reason Comments Med Refill Encounter Details Date Type Department Care Team (Late st Contact Info) Description 05/15/2023 Refill [facility] [address] [place] [id number] Mitch Jc MD [address] [facility] [address] [facility] [place] [phone] Essential hypertension; Edema, unspecified type Social History Tobacco Use Types Packs/Day Years Used Date Smoking Tobacco: Never Smokeless Tobacco: Never Alcohol Use Standard Drinks/Week Comments Not Currently 0 (1 standard drink = 0.6 oz pur e alcohol) Sex and Gender Information Value Date Recorded Sex Assigned at Not on file Gender Identity Not on file Sexual Orientation Not on file documented as of this encounter Plan of Treatment Not on file documented as of this encounter Visit Diagnoses Diagnosis Essential hypertension Unspecified essential hypertension Edema, unspecified type documented in this encounter Care Teams Cannoneer Relationship Specialty Start Date End Date Yoel Rizvi MD [address] [place] [address] [place] [address] PCP - General 10/22/22 documented as of this encounter
--- OUTSIDE RECORDS SUMMARY | 2025-03-31 15:57 | XMS_ITS | Patient Health Record ---
Author Organization [facility] in [place] Address [address] [place] [address] Care Team Providers Care Animal Tech Name Role Phone Regino Tierney Primary Care Provider [phone] BRUCE TIERNEY Unavailable [phone] Allergies Allergen (clinical drug ingredient) Drug/Non Drug Allergy documented on EMR Reaction Allergy Type Onset Date Status atorvastatin Atorvastatin Calcium Unknown Drug Allergy Active Results Component Value Reference Range Notes CA echo doppler complete Reviewed date:06/09/2024 07:35:22 PM Interpretation: Performing Lab: Notes/Report: Source Facility: [place] [address] Cardiology Report Signed Patient: INEZ JUAREZ MR#: [id number] : 1940 Acct:[id number] Age/Sex: 84 / F ADM Date: 06/08/24 Loc: CARD Attending Dr: JENN PRADO Ordering Physician: JENN PRADO Date of Service: 06/08/24 Procedure(s): CA echo doppler complete Accession Number(s): [id number] cc: Bruce Tierney M.D.; JENN PRADO Patient Name: INEZ JUAREZ MR#: [id number] : 1940 Exam Date: 06/08/2024 Ordering Doctor: DR JENN PRADO M.D. ECHOCARDIOGRAM REPORT PROCEDURE: CA ECHO DOPPLER COMPLETE INDICATIONS: Pulmonary hypertension COMPARISON: None. DESCRIPTION: COMPLETE ECHOCARDIOGRAM Real-time transthoracic echocardiography with 2D, M-mode, spectral and color flow Doppler performed. QUALITY: Technical quality was good. LEFT VENTRICLE: Normal chamber size. Normal left ventricular wall thickness. LV EF: Global left ventricular systolic function is normal. Visual estimation of left ventricular ejection fraction is 65%. Abnormal septal motion consistent right ventricular pressure and/or volume overload. DIASTOLIC: Grade III diastolic dysfunction. ATRIAL SEPTUM: Inadequately seen. LEFT ATRIUM: Severe dilatation. RIGHT ATRIUM: Severe dilatation. RIGHT VENTRICLE: Mild dilatation. Decreased right ventricular systolic function. TRICUSPID VALVE: Normal mobility and thickness. Mild regurgitation. Moderate pulmonary hypertension. RVSP 59mmHg MITRAL VALVE: Normal mobility and thickness. No evidence of mitral valve stenosis. There is no mitral annular calcification. Mild mitral regurgitation. AORTIC VALVE: Normal trileaflet appearance. Mildly calcified aortic valve. Mildly diminished mobility. Doppler velocity suggests mild aortic valve stenosis. DVI 0.4, SALLY 1.2cm2, Vmax 2.3m/s, Mean gradient 13mmHg.Trivial aortic regurgitation. AORTIC ROOT: Normal diameter and appearance. PULMONIC VALVE: Normal thickness and mobility. No stenosis. Trivial regurgitation. PERICARDIUM: No evidence of pericardial effusion. IVC: Collapses with inspirations. Normal size. CONCLUSION: 1. Global left ventricular systolic function is normal; visually estimated ejection fraction is 60 to 65% 2. The right ventricle is mildly dilated with reduced systolic function 3. Severe biatrial enlargement 4. Grade 3 diastolic dysfunction 5. Mild tricuspid regurgitation 6. Mildly elevated right ventricular systolic pressure; RVSP 59 mmHg 7. Mild mitral regurgitation 8. Mild aortic valve stenosis Adult Echocardiography Procedure Report Left Ventricle LVEDD (3.7 - 5.6 cm): 4.86 cm LVESD (2.2 - 4.0 cm): 3.51 cm LVIVS thickness (0.6 - 1.2 cm): 0.78 cm LVPW thickness (0.5 - 1.0 cm): 1.04 cm e': 0.13 m/s E - e': 9.90 LVOT Max Gradient: 4.12 mm[Hg] LVOT Area (cm2): 1.02 m/s Peak Velocity (LVOT): 1.02 m/s Mean Velocity (LVOT): 0.72 m/s LVOT Diameter 1.82 cm Left Ventricular Ejection Fraction: 65.09 % Left Atrium LA Volume Index (2D A2C): 62.80 ml/m2 Left Atrium Systolic Dimension: 4.93 cm Mitral Valve MV E to A Ratio: 2.61 Mitral Valve A-Wave Peak Velocity: 0.49 m/s Mitral Valve E-Wave Peak Velocity: 1.27 m/s Right Ventricle RV Internal Diastolic Dimension: 4.04 cm Aorta AO Root Diam: 2.79 cm Ascending Ao Diam: 2.31 cm Aortic Valve AoV Area (Peak Mark): 1.16 cm2, 1.21 cm2 AoV Area (VTI): 1.09 cm2, 1.11 cm2 Peak Velocity(Antegrade Flow): 2.18 m/s, 2.34 m/s Peak Gradient(Antegrade Flow): 19.00 mm[Hg], 21.95 mm[Hg] Mean Velocity(Antegrade Flow): 1.60 m/s, 1.67 m/s Mean Gradient(Antegrade Flow): 11.41 mm[Hg], 12.63 mm[Hg] Velocity Time Integral: 55.90 cm, 58.20 cm Tricuspid Valve Peak Velocity (Regurgitant Flow): 3.47 m/s, 3.36 m/s, 3.76 m/s, 3.73 m/s Pulmonic Valve Mean Gradient: 1.87 mm[Hg], 1.97 mm[Hg] Mean Velocity: 0.64 m/s, 0.66 m/s Peak Velocity: 0.95 m/s Peak Gradient: 3.44 mm[Hg], 3.83 mm[Hg] Right Atrium Right Atrium Systolic Pressure: 122.64 ml, 122.64 ml Dictated by: Jr Montaño M.D. on 06/09/2024 at 13:42 Approved by: Jr Montaño M.D. on 06/09/2024 at 13:46 Dictated By: Jr Montaño M.D. Signed By: 06/09/24 1348 DD/ 1346 TD/TT: [employer] [facility]: [place] [address] Cardiology Report Signed Patient: LILIA JUAREZ MR#: [id number] : 1940 Acct:[id number] Age/Sex: 84 / F ADM Date: 06/08/24 Loc: CARD Attending Dr: JENN PRADO Ordering Physician: JENN PRADO Date of Service: 06/08/24 Procedure(s): CA ech o doppler complete Accession Number(s): [id number] cc: Bruce Tierney M.D. ; JENN PRADO Patient Name: INEZ JUAREZ MR#: [id number] : 1940 Exam Date: 06/08/2024 Ordering Doctor: DR JENN PRADO M.D. ECHOCARDIOGRAM REPORT PROCEDURE: CA ECHO DOPPLER COMPLETE INDICATIONS: Pulmona ry hypertension COMPARISON: None. DESCRIPTION: COMPLET E ECHOCARDIOGRAM Real-time transthoracic echocardiography wit h 2D, M-mode, spectral and color flow Doppler performed. QUALITY: Technical quality was good. LEFT VENTRICLE: Norm al chamber size. Normal left ventricular wall thickness. LV EF: Global left ventricular systolic function is normal. Visual estimation of left ventricular ejection fraction is 65%. Abnormal septal motion consistent ri ght ventricular pressure and/or volume overload. DIASTOLIC: Grade III diastolic dysfunction. ATRIAL SEPTUM: Inadequately seen. LEFT ATRIUM: Severe dilatation. RIGHT ATRIUM: Severe dilatation. RIGHT VENTRICLE: Mil d dilatation. Decreased right ventricular systolic function. TRICUSPID VALVE: No rmal mobility and thickness. Mild regurgitation. Moderate pulmonary hypertension. RVSP 59mmHg MITRAL VALVE: Normal mobility and thickness. No evidence of mitral valve stenosis. There is n o mitral annular calcification. Mild mitral regurgitation. AORTIC VALVE: Normal trileaflet appearance. Mildly calcified aortic valve. Mildly diminished mobility. Doppler velocity suggests mild aortic valve stenosis. DVI 0.4, A VA 1.2cm2, Vmax 2.3m/s, Mean gradient 13mmHg.Trivial aortic regurgitation. AORTIC ROOT: Normal diameter and appearance. PULMONIC VALVE: Norm al thickness and mobility. No stenosis. Trivial regurgitation. PERICARDIUM: No evid ence of pericardial effusion. IVC: Collapses with inspirations. Normal size. CONCLUSION: 1. Global left ventricular systolic function is normal; visually estimated ejection fraction is 60 to 65% 2. The right ventric le is mildly dilated with reduced systolic function 3. Severe biatrial enlargement 4. Grade 3 diastolic dysfunction 5. Mild tricuspid regurgitation 6. Mildly elevated r ight ventricular systolic pressure; RVSP 59 mmHg 7. Mild mitral regurgitation 8. Mild aortic valve stenosis Adult Echocardiograp hy Procedure Report Left Ventricle LVEDD (3.7 - 5.6 cm) : 4.86 cm LVESD (2.2 - 4.0 cm) : 3.51 cm LVIVS thickness (0.6 - 1.2 cm): 0.78 cm LVPW thickness (0.5 - 1.0 cm): 1.04 cm e': 0.13 m/s E - e': 9.90 LVOT Max Gradient: 4 .12 mm[Hg] LVOT Area (cm2): 1.02 m/s Peak Velocity (LVOT) : 1.02 m/s Mean Velocity (LVOT) : 0.72 m/s LVOT Diameter 1.82 cm Left Ventricular Eje ction Fraction: 65.09 % Left Atrium LA Volume Index (2D A2C): 62.80 ml/m2 Left Atrium Systolic Dimension: 4.93 cm Mitral Valve MV E to A Ratio: 2.61 Mitral Valve A-Wave Peak Velocity: 0.49 m/s Mitral Valve E-Wave Peak Velocity: 1.27 m/s Right Ventricle RV Internal Diastoli c Dimension: 4.04 cm Aorta AO Root Diam: 2.79 cm Ascending Ao Diam: 2 .31 cm Aortic Valve AoV Area (Peak Mark): 1.16 cm2, 1.21 cm2 AoV Area (VTI): 1.09 cm2, 1.11 cm2 Peak Velocity(Antegr philip Flow): 2.18 m/s, 2.34 m/s Peak Gradient(Antegr philip Flow): 19.00 mm[Hg], 21.95 mm[Hg] Mean Velocity(Antegr philip Flow): 1.60 m/s, 1.67 m/s Mean Gradient(Antegr philip Flow): 11.41 mm[Hg], 12.63 mm[Hg] Velocity Time Integr al: 55.90 cm, 58.20 cm Tricuspid Valve Peak Velocity (Regurgitant Flow): 3.47 m/s, 3.36 m/s, 3.76 m/s, 3.73 m/s Pulmonic Valve Mean Gradient: 1.87 mm[Hg], 1.97 mm[Hg] Mean Velocity: 0.64 m/s, 0.66 m/s Peak Velocity: 0.95 m/s Peak Gradient: 3.44 mm[Hg], 3.83 mm[Hg] Right Atrium Right Atrium Systoli c Pressure: 122.64 ml, 122.64 ml Dictated by: Jr Montaño M.D. on 06/09/2024 at 13:42 Approved by: Jr Montaño M.D. on 06/09/2024 at 13:46 Dictated By: Jr Montaño M.D. Signed By: 06/09/24 1348 DD/ 1346 TD/TT: [employer] [facility]: Prothrombin Time INR Reviewed date:07/14/2024 09:00:49 PM Interpretation: Performing Lab: Notes/Report: [facility] , Prothrombin Time 19.8 9.0-11.6 sec INR 2.00 2.0-3.0 CONDITIONS NOT LISTED BELOW 2.5-3.5 RECURRENT THROMBOSIS DESIRED INR: 2.5-3.5 FOR PROSTHETIC HEART VALVE REPLACEMENT Performing Lab: see note - [facility] Prothrombin Time INR Reviewed date:08/10/2024 06:52:00 PM Interpretation: Performing Lab: Notes/Report: [facility] , Prothrombin Time 14.7 9.0-11.6 sec INR 1.44 2.0-3.0 CONDITIONS NOT LISTED BELOW DESIRED INR: 2.5-3.5 RECURRENT THROMBOSIS 2.5-3.5 FOR PROSTHETIC HEART VALVE REPLACEMENT Performing Lab: see note - [facility] Prothrombin Time INR Reviewed date:12/10/2024 10:12:40 PM Interpretation: Performing Lab: Notes/Report: [facility] , Prothrombin Time 30.3 9.0-11.6 sec INR 3.21 DESIRED INR: 2.5-3.5 RECURRENT THROMBOSIS 2.5-3.5 FOR PROSTHETIC HEART VALVE REPLACEMENT 2.0-3.0 CONDITIONS NOT LISTED BELOW Performing Lab: see note ML - [facility] Prothrombin Time INR Reviewed date:01/08/2025 01:04:10 PM Interpretation: Performing Lab: Notes/Report: [facility] , Prothrombin Time 33.7 9.0-11.6 sec INR 3.61 2.5-3.5 RECURRENT THROMBOSIS 2.5-3.5 FOR PROSTHETIC HEART VALVE REPLACEMENT 2.0-3.0 CONDITIONS NOT LISTED BELOW DESIRED INR: Performing Lab: see note - [facility] Prothrombin Time INR Reviewed date:11/09/2024 08:40:25 PM Interpretation: Performing Lab: Notes/Report: [facility] , Prothrombin Time 27.7 9.0-11.6 sec INR 2.90 DESIRED INR: 2.5-3.5 RECURRENT THROMBOSIS 2.0-3.0 CONDITIONS NOT LISTED BELOW 2.5-3.5 FOR PROSTHETIC HEART VALVE REPLACEMENT Performing Lab: see note - [facility] Prothrombin Time INR Reviewed date:10/06/2024 06:10:24 PM Interpretation: Performing Lab: Notes/Report: [facility] , Prothrombin Time 23.0 9.0-11.6 sec INR 2.36 2.0-3.0 CONDITIONS NOT LISTED BELOW 2.5-3.5 RECURRENT THROMBOSIS DESIRED INR: 2.5-3.5 FOR PROSTHETIC HEART VALVE REPLACEMENT Performing Lab: see note ML - [facility] Prothrombin Time INR Reviewed date:09/03/2024 07:52:19 PM Interpretation: Performing Lab: Notes/Report: [facility] , Prothrombin Time 16.2 9.0-11.6 sec INR 1.60 2.5-3.5 RECURRENT THROMBOSIS DESIRED INR: 2.5-3.5 FOR PROSTHETIC HEART VALVE REPLACEMENT 2.0-3.0 CONDITIONS NOT LISTED BELOW Performing Lab: see note - [facility] XR DEXA axial skeleton Reviewed date:06/23/2024 09:22:26 PM Interpretation: Performing Lab: Notes/Report: Source Facility: [place] [address] [place] [address] XRay Report Signed Patient: INEZ JUAREZ MR#: [id number] : 1940 Acct:[id number] Age/Sex: 84 / F ADM Date: 06/22/24 Loc: RAD Attending Dr: Bruce Tierney M.D. Ordering Physician: Bruce Tierney M.D. Date of Service: 06/22/24 Procedure(s): XR DEXA axial skeleton Accession Number(s): [id number] cc: Bruce Tierney M.D. 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 FINDINGS: SPINE ANALYSIS: Average bone mineral density is 1.469 g/cm2. T-score (standard deviation relative to young adult mean): 2.2 . +4.6% change since prior study. HIP ANALYSIS: Lowest bone mineral density is within the left femoral neck, 0.810 g/cm2. T-score (standard deviation relative to young adult mean): -1.6 . -7.0% change since prior study. XR/XR DEXA axial skeleton IMPRESSION: World Health Organization Classification: Osteopenia - Moderate Fracture Risk FRAX: Cannot calculate. Pharmacologic treatment recommendations * No uniform recommendation applies to all patients. Management plans must be individualized. * Consider initiating pharmacologic treatment in postmenopausal women and men >= 50 years of age who have the following: Primary fracture prevention: * T-score <= - 2.5 at the femoral neck, total hip, lumbar spine, 33% radius (some uncertainty with existing data) by DXA. * Low bone mass (osteopenia: T-score between - 1.0 and - 2.5) at the femoral neck or total hip by DXA with a 10-year hip fracture risk >= 3% or a 10-year major osteoporosis-related fracture risk >= 20% (i.e., clinical vertebral, hip, forearm, or proximal humerus) based on the [place]-adapted FRAXregistered model. Secondary fracture prevention: * Fracture of the hip or vertebra regardless of BMD [4, 5]. * Fracture of proximal humerus, pelvis, or distal forearm in persons with low bone mass (osteopenia: T-score between - 1.0 and - 2.5). The decision to treat should be individualized in persons with a fracture of the proximal humerus, pelvis, or distal forearm who do not have osteopenia or low BMD [12, 13]. Fabiola VALLES, Dayne SL, De KL, Magdy EM, Daksha KG, AJ, Zoe ES. The clinician's guide to prevention and treatment of osteoporosis. Osteoporos Int. 2021;3310):0146-0117. doi: 10.1007/v46591-615-90129-c. Epub 2021Mar 08. Erratum in: Osteoporos Int. 2021Jun 07;: PMID: 96566440; PMCID: [id number]. Electronically authenticated by: BHAVIK TRACEY Date: 06/23/2024 06:41 Dictated By: Bhavik Tracey M.D. Signed By: 06/23/2443 DD/ 0 TD/TT: [employer] [facility]: [place] [address] XRay Report Signed Patient: LILIA JUAREZ MR#: [id number] : 1940 Acct:[id number] Age/Sex: 84 / F ADM Date: 06/22/24 Loc: RAD Attending Dr: Merry Tierney M.D. Ordering Physician: Bruce Tierney M.D. Date of Service: 06/22/24 Procedure(s): XR DEX A axial skeleton Accession Number(s): [id number] cc: Bruce Tierney M.D. 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 FINDINGS: SPINE ANALYSIS: Average bone mineral density is 1.469 g/cm2. T-score (standard deviation relative to young adult mean): 2.2 . +4.6% change since p rior study. HIP ANALYSIS: Lowest bone mineral density is within the left femoral neck, 0.810 g/cm2. T-score (standard deviation relative to young adult mean): -1.6 . -7.0% change since p rior study. X R/XR DEXA axial skeleton IMPRESSION: World Health Organiz ation Classification: Osteopenia - Moderate Fracture Risk FRAX: Cannot calculate. Pharmacologic treatm ent recommendations * No uniform recommendation applies to all patients. Management plans must be individualized. * Consider initiatin g pharmacologic treatment in postmenopausal women and men >= 50 years of age w ho have the following: Primary fracture prevention: * T-score <= - 2.5 a t the femoral neck, total hip, lumbar spine, 33% radius (some uncertainty wi th existing data) by DXA. * Low bone mass (osteopenia: T-score between - 1.0 and - 2.5) at the femoral neck or total hip by DXA with a 10-year hip fracture risk >= 3% or a 10-year major osteoporosis-related fracture risk >= 20% (i.e., clinical vertebral, hip, forearm, or proximal humerus) based on the US-adapted FRAXregistered model. Secondary fracture prevention: * Fracture of the hi p or vertebra regardless of BMD [4, 5]. * Fracture of proxim al humerus, pelvis, or distal forearm in persons with low bone mass (osteopeni a: T-score between - 1.0 and - 2.5). The decision to treat should be individual ized in persons with a fracture of the proximal humerus, pelvis, or distal fo rearm who do not have osteopenia or low BMD [12, 13]. Fabiola MS, Dayne SL, De KL, Magdy EM, Daksha KG, AJ, Zoe ES. The clinician's guid e to prevention and treatment of osteoporosis. Osteoporos Int. 2021;33(10):5482-6143. doi: 10.1007/n88217-984-95900- y. Epub 2021Mar 08. Erratum in: Osteoporos Int. 2021Jun 07;: PMID: [id number]; PMCID: [id number]. Electronically authenticated by: BHAVIK TRACEY Date: 06/23/2024 06:41 Dictated By: Bhavik Tracey M.D. Signed By: 06/23/2443 DD/ 0 TD/TT: [employer] [facility]: Prothrombin Time INR Reviewed date:06/08/2024 08:54:36 PM Interpretation: Performing Lab: Notes/Report: [facility] , Prothrombin Time 15.6 9.0-11.6 sec INR 1.54 2.5-3.5 FOR PROSTHETIC HEART VALVE REPLACEMENT 2.0-3.0 CONDITIONS NOT LISTED BELOW 2.5-3.5 RECURRENT THROMBOSIS DESIRED INR: Performing Lab: see note - [facility] Prothrombin Time INR Reviewed date:05/07/2024 10:06:19 PM Interpretation: Performing Lab: Notes/Report: [facility] , Prothrombin Time 15.0 9.0-11.6 sec INR 1.47 2.5-3.5 FOR PROSTHETIC HEART VALVE REPLACEMENT 2.5-3.5 RECURRENT THROMBOSIS DESIRED INR: 2.0-3.0 CONDITIONS NOT LISTED BELOW Performing Lab: see note - [facility] Prothrombin Time INR Reviewed date:04/13/2024 09:30:12 PM Interpretation: Performing Lab: Notes/Report: [facility] , Prothrombin Time 15.0 9.0-11.6 sec INR 1.47 2.0-3.0 CONDITIONS NOT LISTED BELOW 2.5-3.5 RECURRENT THROMBOSIS 2.5-3.5 FOR PROSTHETIC HEART VALVE REPLACEMENT DESIRED INR: Performing Lab: see note - [facility] Prothrombin Time INR Reviewed date:02/17/2025 01:09:11 PM Interpretation: Performing Lab: Notes/Report: [facility] , Prothrombin Time 18.8 9.0-11.6 sec INR 1.89 2.5-3.5 RECURRENT THROMBOSIS DESIRED INR: 2.0-3.0 CONDITIONS NOT LISTED BELOW 2.5-3.5 FOR PROSTHETIC HEART VALVE REPLACEMENT Performing Lab: see note [facility] Prothrombin Time INR Reviewed date:02/14/2025 04:04:25 PM Interpretation: Performing Lab: Notes/Report: [facility] , Prothrombin Time 41.0 9.0-11.6 sec RESULTS GEORGE LED TO DR. TIERNEY INR 4.[address] TIERNEY 2.0-3.0 CONDITIONS NOT LISTED BELOW 2.5-3.5 RECURRENT THROMBOSIS DESIRED INR: 2.5-3.5 FOR PROSTHETIC HEART VALVE REPLACEMENT Performing Lab: see note ML - [facility] Prothrombin Time INR Reviewed date:02/04/2025 09:05:01 PM Interpretation: Performing Lab: Notes/Report: [facility] , Prothrombin Time 32.9 9.0-11.6 sec INR 3.52 2.0-3.0 CONDITIONS NOT LISTED BELOW 2.5-3.5 RECURRENT THROMBOSIS DESIRED INR: 2.5-3.5 FOR PROSTHETIC HEART VALVE REPLACEMENT Performing Lab: see note ML - [facility] LB Reason For Referral No Information Medications Medication SIG (Take, Route, Frequency, Duration) Notes Start Date End Date Status CVS Iron 325 (65 Fe) MG 1 tablet Orally BID Active Citalopram Hydrobromide 40 MG 1 tablet Orally Once a day for 90 days Active Xanax 0.25 MG 1 tablet Orally Twic e a day for 30 days F41.9 02/02/2025 Active Warfarin Sodium 5 MG 1 tablet Orally Onc e daily for 90 days Active Aspirin 81 81 MG 1 tablet Orally Once a day Active amLODIPine Besylate 10 MG 1 tablet Orall y Once a day Active Vitamin D3 50 MCG (1999) 1 capsule Or ally Once a day for 90 days 02/28/2023 Active Allopurinol 100 MG take 1 tablet by meseret once daily for 30 Active Sildenafil Citrate 20 MG 1 tablet Orally three times daily Active Pravastatin Sodium 20 MG TAKE 1 TABLET D AILY for 90 Active Alendronate Sodium 70 MG TAKE 1 TABLET B Y MOUTH WEEKLY for 84 Active Albuterol Sulfate HFA 108 (90 Base) MCG/ACT USE 2 INHALATIONS BY MOUTH 4 TIMES DAILY for 90 Active Metoprolol Succinate ER 25 MG 1/2 tablet Orally Once a day Active Lansoprazole 30 MG TAKE 1 CAPSULE BY MO UTH DAILY for 90 Active Klor-Con M10 10 MEQ 1 tablet with food O rally once daily Active Furosemide 80 MG 1 tablet Orally in t he morning and 40mg at bedtime Active Fish Oil Kuna-3 1000 MG 1 capsule Orall y Once a day Active Social History Tobacco Use: Social History Observation Description Date Details (start date - stop date) Never Smoker NA - NA Tobacco Use/Smoking Question Answer Notes Patient is a nonsmoker Alcohol Screen (Audit-C) Question Answer Notes Did you have a drink containing alcohol in the p ast year? No Points 0 Interpretation Negative Tobacco Control (Standard) Question Answer Notes Tobacco use: Nonsmoker AUDIT-C (Standard) Question Answer Notes Did you have a drink containing alcohol in the p ast year? No Points 0 Interpretation Negative Problems Problem Type SNOMED Code ICD Code Onset Dates Problem Status W/U Status Risk Notes Problem 58671044 Essential (primary) hypertension (I10) Active confirmed Problem 715596324 Cardiomegaly (I51.7) Active confirmed Problem 3810440 Other ill-define d heart diseases (I51.89) Active confirmed Problem 138777484 Abnormal result of cardiovascular function study, unspecified (R94.30) Active confirmed Problem Fatigue (49747383) Fatigue (R53.83) Active confirmed Problem Senile osteoporosis (30873268) 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) Active confirmed Problem Hyperlipidemia (86125429) Hyperlipidemia (E78.5) Active confirmed Problem Mitral regurgitation (14513468) Mitral regurgitation (I34.0) Active confirmed Problem Bradycardia (70108910) Bradycardia, sinus (R00.1) Active confirmed Problem Tricuspid regurgitation (827831889) Tricuspid regurgitation (I07.1) Active confirmed Problem Aortic valve disorder (8926798) Aortic stenosis (I35.0) Active confirmed Problem Left ventricular hypertrophy (03184109) Left ventricular hypertrophy (I51.7) Active confirmed Problem Diastolic heart failure (682082734) Diastolic heart failure (I50.30) Active confirmed Problem Gout (05016851) Gout (M10.9) Active confirmed Problem Hiatal hernia (87335270) Hiatal hernia (K44.9) Active confirmed Problem Ankle pain (748167080) Ankle pain (M25.579) Active confirmed Problem Chronic diastolic heart failure (065898673) Chronic diastolic (congestive) heart failure (I50.32) Active confirmed Problem Glaucoma (53956336) Glaucoma (H40.9) Active confirmed Problem Polyp of colon (disorder) (64379536) Colon polyps (K63.5) Active confirmed Problem Overweight (949897204) Over weight (E66.3) Active confirmed Problem Iron deficiency anemia (94704830) Anemia, iron deficiency (D50.9) Active confirmed Problem Recurrent falls (824056703) Recurrent falls (R29.6) Active confirmed Problem Ankle edema (16489905) Ankle edema (R60.0) Active confirmed Problem Diverticular disease (468402156) Diverticular disease (K57.90) Active confirmed Problem Fibrocystic breast changes (67140999) Fibrocystic breast disease (N60.19) Active confirmed Problem Gastro-esophageal reflux disease (532277054) Gastro-esophageal reflux disease (K21.9) Active confirmed Problem At risk for falls (187418971) At risk for falls (Z91.81) Active confirmed Problem Cardiomegaly (6220344) Atrial enlargement, left (I51.7) Active confirmed Problem Generalized anxiety disorder (81181694) Anxiety neurosis (F41.1) Active confirmed Problem Long-term current use of anticoagulant (854333032) Current use of anticoagulant therapy (Z79.01) Active confirmed Problem History of macrocytic anemia (Z86.2) Active confirmed Problem Pulmonary hypertension (31934658) Pulmonary hypertension (I27.20) Active confirmed Problem 33848261 Pulmonary hypertension, unspecified (I27.20) Active confirmed Problem Chronic atrial fibrillation (450528159) Chronic atrial fibrillation (I48.20) Active confirmed Problem 662028373 Longstanding persistent atrial fibrillation (I48.11) Active confirmed Problem Chronic kidney disease stage 3 (disorder) (609218805) Chronic kidney disease, stage 3 unspecified (N18.30) Active confirmed Problem 292602798 Chronic kidney disease, stage 3b (N18.32) Active confirmed Problem Cardiomegaly (7597818) Atrial enlargement, right (I51.7) Active confirmed Problem Pericardial effusion (952667716) Pericardial effusion (I31.39) Active confirmed Vital Signs Blood pressure diastolic 52 mm Hg 03/09/2025 Height 57 in 03/09/2025 Blood pressure systolic 134 mm Hg 03/09/2025 Weight 135.2 lbs 03/09/2025 BMI 29.25 kg/m2 03/09/2025 Procedures Procedure Date Ordered Date Performed Result Body Sit e EAR IRRIGATION - performed 03/09/2025 N/A Encounters Encounter Location Date Provider Diagnosis [facility] [address] [place] [address] 01/08/[address] [facility] [address] [place] [address] 02/02/2025 Regino Tierney Diastolic heart fail ure I50.30 [facility] [address] [place] [address] 02/04/[address] [facility] [address] [place] [address] 02/14/[address] [facility] [address] [place] [address] 02/15/[address] [facility] [address] [place] [address] 02/17/[address] [facility] [address] [place] [address] 09/03/2024 [facility] [address] [place] [address] 09/08/[address] [facility] [address] [place] [address] 10/06/[address] [facility] [address] [place] [address] 11/09/[address] [facility] [address] [place] [address] 12/10/2024 Regino Tierney Aortic stenosis I35. 0 and Longstanding persistent atrial fibrillation I48.11 [facility] [address] [place] [address] 12/10/2024 Regino [facility] [address] [place] [address] 06/03/2024 Regino Tierney Senile osteoporosis M81.0 [facility] [address] [place] [address] 06/08/[address] [facility] [address] [place] [address] 06/18/2024 Regino Tierney Hyperlipidemia E78.5 [facility] [address] [facility] [address] 06/23/[address] [facility] [address] [place] [address] 07/14/[address] [facility] [address] [facility] [place] [address] 08/10/2024 Regino [facility]ney [facility] [address] [facility] [place] [address] 04/13/2024 [facility] [address] [facility] [place] [address] 05/07/[address] [facility] [address] [place] [address] 08/28/2024 Regino Tierney Hyperlipidemia E78.5 ; Diastolic heart failure I50.30 ; Pulmonary hypertension I27.20 and Essential (primary) hypertension I10 [facility] [address] [facility] [address] 03/09/2025 Regino Tierney Diastolic heart fail ure I50.30 ; Chronic atrial fibrillation I48.20 ; Hyperlipidemia E78.5 ; Chronic diastolic (congestive) heart failure I50.32 ; Essential (primary) hypertension I10 and Impacted cerumen of right ear H61.21 Assessments Encounter Date Diagnosis (ICD Code) Assessment Notes Treatment Notes Treatment Clinical Notes Section Notes 08/28/2024 Hyperlipidemia (ICD-10 - E78.5) 08/28/2024 Diastolic heart failure (ICD-10 - I50.30) 03/09/2025 Diastolic heart failure (ICD-10 - I50.30) 03/09/2025 Chronic atrial fibrillation (ICD-10 - I48.20) 06/03/2024 Senile osteoporosis (ICD-10 - M81.0) 06/18/2024 Hyperlipidemia (ICD-10 - E78.5) 12/10/2024 Aortic stenosis (ICD-10 - I35.0) 12/10/2024 Longstanding persistent atrial fibrillation (ICD-10 - I48.11) 02/02/2025 Diastolic heart failure (ICD-10 - I50.30) 03/09/2025 Hyperlipidemia (ICD-10 - E78.5) 08/28/2024 Pulmonary hypertension (ICD-10 - I27.20) 08/28/2024 Essential (primary) hypertension (ICD-10 - I10) 03/09/2025 Chronic diastolic (congestive) heart failure (ICD-10 - I50.32) 03/09/2025 Essential (primary) hypertension (ICD-10 - I10) 03/09/2025 Impacted cerumen of right ear (ICD-10 - H61.21) Plan Of Treatment Pending Test Test Name Order Date CMP (COMPLETE METABOLIC PANEL) HEMOGLOBIN A1C (GLYCO) 02/27/2024 HEMOGLOBIN A1C (GLYCO) 03/09/2025 IRON, TOTAL 03/09/2025 IRON, TOTAL 02/27/2024 LIPID PANEL (CHOL/TRIG/HDL/LDL) 02/27/20 24 LIPID PANEL (CHOL/TRIG/HDL/LDL) 03/09/20 25 CBC WITH DIFF 02/27/2024 PT (PROTIME), INR AND PTT (PT/INR AND PT T) 02/05/2024 PT (PROTIME), INR AND PTT (PT/INR AND PT T) 02/05/2024 VITAMIN D, 25 LEVEL (TOTAL) 03/09/2025 VITAMIN D, 25 LEVEL (TOTAL) 02/27/2024 EAR IRRIGATION - performed 03/09/2025 BNP 03/09/2025 BNP 02/27/2024 BNP 03/07/2023 CBC AUTO DIFF 03/07/2023 GLYCOHEMOGLOBIN A1C 03/07/2023 IRON 03/07/2023 LIPID PROFILE 03/07/2023 MAGNESIUM 03/07/2023 PROF 14(COMP METB) 03/07/2023 VITAMIN D 25 OH 03/07/2023 XR DEXA BONE DENSITY 06/03/2024 THYROID PANEL (T4/TSH/FREE T3) 5 THYROID PANEL (T4/TSH/FREE T3) 3 THYROID PANEL (T4/TSH/FREE T3) 4 PROTIME-INR 12/10/2024 CMP (COMP MET LAMA) w/eGFR CKD-EPI 2024 CBC WITH DIFF 03/09/2025 Next Appt Details Provider Name:Regino Tierney, 11:00:00 AM, [address] [facility], [place], [address], Insurance Providers Payer Name Payer Address Payer Phone Subscriber Number Group Number Insured Name Patient Relationship to Insured Coverage Start Date Coverage End Date [employer] [address] [address] [place] [address] [id number] Inez Juarez Self - patient is the insured Medical (General) History Medical History History ICD Code Over weight E66.3 Recurrent falls R29.6 Chronic diastolic (congestive) heart marcela lure I50.32 Atrial enlargement, right I51.7 Atrial enlargement, left I51.7 Fatigue R53.83 At risk for falls Z91.81 Bradycardia, sinus R00.1 Chronic kidney disease, stage 3 unspecif ied N18.30 Diastolic heart failure I50.30 Pulmonary hypertension I27.20 Pericardial effusion I31.39 Colon polyps K63.5 Aortic stenosis I35.0 Ankle pain M25.579 Current use of anticoagulant therapy Z79 .01 Chronic atrial fibrillation I48.20 Hyperlipidemia E78.5 Hiatal hernia K44.9 Gastro-esophageal reflux disease K21.9 Fibrocystic breast disease N60.19 Anxiety neurosis F41.1 History of macrocytic anemia Z86.2 Left ventricular hypertrophy I51.7 Mitral regurgitation I34.0 Tricuspid regurgitation I07.1 Glaucoma H40.9 Ankle edema R60.0 Anemia, iron deficiency D50.9 Diverticular disease K57.90 Surgical History Surgery Date(Month/Year) Eye surgery [facility] Heart Cath- Dr. Price 10/22/2023 Bilateral Foot surgery
--- OUTSIDE RECORDS SUMMARY | 2025-03-31 15:57 | XMS_ITS | Referral Summary ---
Author Organization [facility] Address [address] [place] [address] Care Team Providers Care Review Consultant Name Role Phone Yoel Rizvi MD Primary Care Provider [phone] Encounters Date Type Department Care Team Description 02/24/2025 Refill [facility] [address] [place] [address] Mitch Jc MD Essential hypertension from Last 3 Months Allergies No known active allergies Medications Medication Sig Dispensed Refills Start Date End Date Status albuterol 90 mcg/actuation inhaler Act sol alendronate (Fosamax) 70 mg tablet Take 1 tablet every week by oral route for 84 days. Active ALPRAZolam (Xanax) 0.25 mg tablet take 1 tablet by mouth once daily if needed Active aspirin 81 mg chewable tablet Chew 1 tablet every day by oral route. Active cholecalciferol, vitamin D3, 50 mcg (2,000 unit) capsule Take 1 capsule every day by oral route for 90 days. Active citalopram (CeleXA) 40 mg tablet Take 1 tablet every day by oral route for 90 days. Active lansoprazole (Prevacid) [address] capsule Take 1 capsule every day by oral route for 90 days. Active pravastatin (Pravachol) 20 mg tablet Take 1 tablet every day by oral route for 90 days. Active sacubitriL-valsartan (Entresto) 24-26 mg tablet Take 0.5 tablets by mouth in the morning and at bedtime. Active warfarin (Coumadin) 5 mg tablet Active allopurinol (Zyloprim) 100 mg tablet 1 (one) time each day at the same time. 08/28/2023 Active metoprolol succinate XL (Toprol-XL) 25 mg 24 hr tabletIndications:Ess ential hypertension TAKE ONE-HALF TABLET BY MOUTH DAILY 45 tablet 3 06/19/2024 Active furosemide (Lasix) 40 mg tabletIndications:Chr onic diastolic congestive heart failure (CMS/HCC) TAKE 1 TABLET BY MOUTH ONCE DAILY IN THE EVENING 90 tablet 3 09/03/2024 Active furosemide (Lasix) 80 mg tabletIndications:Chr onic diastolic congestive heart failure (CMS/HCC) TAKE 1 TABLET BY MOUTH IN THE MORNING 90 tablet 3 09/28/2024 Active sildenafil (Revatio) 20 mg tabletIndications:Pul monary hypertension (CMS/HCC) TAKE ONE AND ONE-HALF TABLETS THREE TIMES A DAY (IN THE MORNING, AT NOON, AND AT BEDTIME) 405 tablet 2 11/19/2024 Active potassium chloride CR (Klor-Con) 10 mEq ER tabletIndications:Doni melendrez, unspecified type TAKE 1 TABLET BY MOUTH DAILY 90 tablet 3 12/02/2024 Active amLODIPine (Norvasc) 10 mg tabletIndications:Ess ential hypertension TAKE 1 TABLET BY MOUTH DAILY 90 tablet 3 02/25/2025 Active Active Problems Problem Noted Date Diagnosed Date Abnormal result of cardiovas cular function study, unspecified 12/13/2023 12/13/2023 Cardiomegaly 12/13/2023 12/13/2023 Other ill-defined heart diseases 12/13/2023 12/13/2023 Gout 10/30/2023 10/30/2023 Pulmonary hypertension 05/23/2021 Atrial fibrillation 12/30/2012 Essential hypertension 12/30/2012 Hyperlipidemia 12/30/2012 Gastroesophageal reflux disease 12/30/2012 Mitral valve disorder 12/30/2012 Renal failure syndrome 12/30/2012 CHF (congestive heart failure) Chronic kidney disease Social History Tobacco Use Types Packs/Day Years Used Date Smoking Tobacco: Never Smokeless Tobacco: Never Tobacco Cessation:Counseling Given: Not Answered Alcohol Use Standard Drinks/Week Comments Not Currently 0 (1 standard drink = 0.6 oz pur e alcohol) [place] Safety & Environment Answer Date Rec orded Fear of Current or Ex-Partner Not on file Emotionally Abused Not on file 01/02/2024 Physically Abused Not on file 01/02/2024 Sexually Abused Not on file 01/02/2024 Physically or Sexually Abused Not on file Sex and Gender Information Value Date Recorded Sex Assigned at Not on file Gender Identity Not on file Sexual Orientation Not on file Last Filed Vital Signs Vital Sign Reading Time Taken Comments Blood Pressure 123/66 07/03/2024 3:30 PM EDT Pulse 50 07/03/2024 3:30 PM EDT Temperature - - Respiratory Rate 17 10/22/2023 9:46 AM EST Oxygen Saturation 91% 07/03/2024 3:30 PM EDT Inhaled Oxygen Concentration - - Weight 62.1 kg (137 lb) 07/03/2024 3:30 PM EDT Height 152.4 cm (5') 07/03/2024 3:30 PM EDT Body Mass Index 26.76 07/03/2024 3:30 PM EDT Plan of Treatment Not on file Care Teams Review Consultant Relationship Specialty Start Date End Date Yoel Rizvi MD [address] [facility] [address] [address] PCP - General 10/22/22
--- OUTSIDE RECORDS SUMMARY | 2025-03-31 15:57 | XMS_ITS | Clinical Summary ---
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 Role Phone Yoel Rizvi MD Primary Care Provider [phone] Allergies No known active allergies Medications Medication [...] CHF (congestive heart failure) Chronic kidney disease Encounters Date Type Department Care Team Description 02/24/2025 [facility] [address] [place] [address] Mitch Jc MD Essential hypertension from Last 3 Months Family History Medical History Relation Name Comments Coronary artery disease Father Hypertension Father Hypertension Mother Relation Name Status Comments Father Mother Social History Tobacco Use Types Packs/Day Years [...] 07/03/2024 3:30 PM EDT Plan of Treatment Health Maintenance Due Date Last Done Comments Medicare Annual Wellness (AWV) 1938 Depression Screening 1950 Adult Tetanus 1960 Zoster Vaccines (1 of 2) 1988 Fall Risk Screening 2003 Pneumococcal Vaccine: 65+ Years (2 of 2 - PPSV23 or PCV20) 03/17/2018 01/20/2018 COVID-19 Vaccine ( season) 2024 01/02/2024, 09/18/2022, 03/17/2022, Additional history exists Influenza Vaccine (Season Ended) 2025 01/02/2024, 09/10/2022, 09/06/2021, Additional history exists HIB Vaccines Aged Out No longer eligi ble based on patient's age to complete this topic HPV Vaccines Aged Out No longer eligi ble based on patient's age to complete this topic IPV Vaccines Aged Out No longer eligi ble based on patient's age to complete this topic Meningococcal B Vaccine Aged Out No l onger eligible based on patient's age to complete this topic Meningococcal Vaccine Aged Out No gómez dejan eligible based on patient's age to complete this topic Rotavirus Vaccines Aged Out No longer eligible based on patient's age to complete this topic Care Teams Wire Drawing Machine Operator Relationship Specialty Start Date End Date Yoel Rizvi MD [address] [facility] [address] [address] PCP - General 10/22/22
--- OUTSIDE RECORDS SUMMARY | 2025-03-31 16:09 | XMS_ITS | CCD ---
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] Onset: 06-04-2022 Episodic Other [...] Range Facility Office Visiton 07-03-2024 Follow-up visit [id number] Inez Juarez 1940 F Date Provider Department Center 07/03/2024 JENN AMANDA BARBRA Acuña Family History Problem Relation Age of Onset Hypertension Mother Coronary artery disease Father Hypertension Father Family Status - Relation Status Age at Mother Father Level of Service:80426 ND OFFICE/OUTPATIENT ESTABLISHED LOW MDM 20 MIN Normal [facility] Office Visiton 12-13-2023 Follow-up visit [id number] Inez Juarez 1940 Provider Department Center 12/13/2023 JENN AMANDA BARBRA Acuña Family History Problem Relation Age of Onset Hypertension Mother Coronary artery disease Father Hypertension Father Family Status - Relation Status Age at Mother Father Level of Service:87367 ND OFFICE/OUTPATIENT ESTABLISHED MOD MDM 30 MIN Normal [facility] Office Visiton 10-30-2023 Follow-up visit [id number] Inez Juarez 1940 Date Provider Department Center 10/30/2023 JENN AMANDA BARBRA Acuña Family History Problem Relation Age of Onset Hypertension Mother Coronary artery disease Father Hypertension Father Family Status - Relation Status Age at Mother Father Level of Service:35518 ND OFFICE/OUTPATIENT ESTABLISHED MOD MDM 30 MIN Normal [facility] HPon 10-22-2023 History Of Present Illness [...] a past medical history of Atrial fibrillation ([facility]), CHF (congestive heart failure) ([facility]), Chronic kidney disease, GERD (gastroesophageal reflux disease), Heart valve disease, Hyperlipidemia, Hypertension, and Pulmonary hypertension ([facility]). Surgical History She has a [...] Results Reviewed Relevant (more content not included)... [facility] NURSNOTEon 10-22-2023 NURSNOTE RN educated pt on d/c instructions. RN encouraged pt to voice any questions or concerns. Pt verbalizes no questions or concerns at this time. Normal [facility] BNPon 03-22-2023 Natriuretic peptide B (Bld) [Mass/Vol] 1423.0 pg/mL Normal <=1,800.0 [facility] Comment on above: Performed By: #### B WOMEN'S APPAREL SALESPERSON, CMP, TSH, LIPID #### [facility] [address] [place] [address] Dr. Reji Thomas CBC AUTO DIFFon 03-22-2023 BASO # 0.1 103/ul Normal 0.0-0.1 [facility] Comment on above: Performed By: #### B MP #### [facility] [address] [address] [address] Reji Thomas Basophils/100 WBC (Bld) 1.0 % Normal 0.2-2.0 [facility] Comment on above: Performed By: #### B MP #### [facility] [address] [address] [address] Reji Thomas EO # 0.2 103/ul Normal 0.0-0.7 [facility] Comment on above: Performed By: #### B MP #### [facility] [address] [place] [address] Dr. Reji Thomas Eosinophils/100 WBC (Bld) 3.3 % Normal 0.9-7.0 [facility] Comment on above: Performed By: #### B MP #### [facility] [address] [place] [address] Dr. Reji Thomas Erythrocyte distribution width (RBC) [Ratio] 15.4 % Critically high 11.0-15.0 [facility] Comment on above: Performed By: #### B MP #### [facility] [address] [place] [address] Dr. Reji Thomas Hematocrit (Bld) [Volume fraction] 35.2 % Critically low 36.0-48.0 [facility] Comment on above: Performed By: #### B MP #### [facility] [address] [place] [address] Dr. Reji Thomas Hemoglobin (Bld) [Mass/Vol] 11.4 g/dL Critically low 12.0-16.0 [facility] Comment on above: Performed By: #### B MP #### [facility] [address] [place] [address] Dr. Reji Thomas IG # 0.02 10e3/ul Normal 0.00-0.03 [facility] Comment on above: Performed By: #### B MP #### [facility] [address] [place] [address] Dr. Reji Thomas IG % 0.3 % Normal 0.0-0.5 [facility] Comment on above: Performed By: #### B MP #### [facility] [address] [place] [address] Dr. Reji Thomas LYMPH # 1.4 103/ul Normal 1.2-3.8 [facility] Comment on above: Performed By: #### B MP #### [facility] [address] [place] [address] Dr. Reji Thomas Lymphocytes/100 WBC (Bld) 22.6 % Normal 20.5-60.0 [facility] Comment on above: Performed By: #### B MP #### [facility] [address] [place] [address] Dr. Reji Thomas MANUAL DIFF REQ NO Normal [facility] Comment on above: Performed By: #### B MP #### [facility] [address] [place] [address] Dr. Reji Thomas MCH (RBC) [Entitic mass] 27.0 pg Normal 26.7-34.0 [facility] Comment on above: Performed By: #### B MP #### [facility] [address] [place] [address] Dr. Reji Thomas MCHC (RBC) [Mass/Vol] 32.4 g/dL Normal 29.9-35.2 [facility] Comment on above: Performed By: #### B MP #### [facility] [address] [place] [address] Dr. Reji Thomas MCV (RBC) [Entitic vol] 83.2 fL Normal 81.0-99.0 [facility] Comment on above: Performed By: #### B MP #### [facility] [address] [place] [address] Dr. Reji Thomas MONO # 0.5 103/ul Normal 0.3-0.8 [facility] Comment on above: Performed By: #### B MP #### [facility] [address] [place] [address] Dr. Reji Thomas Monocytes/100 WBC (Bld) 8.5 % Normal 1.7-12.0 [facility] Comment on above: Performed By: #### B MP #### [facility] [address] [place] [address] Dr. Reji Thomas NEUT # 4.0 103/ul Normal 1.4-6.5 [facility] Comment on above: Performed By: #### B MP #### [facility] [address] [place] [address] Dr. Reij Thomas Neutrophils/100 WBC (Bld) 64.3 % Normal 43.0-75.0 [facility] Comment on above: Performed By: #### B MP #### [facility] [address] [place] [address] Dr. Reji Thomas Platelet mean volume (Bld) [Entitic vol] 8.9 fL Critically low 9.5-13.5 [facility] Comment on above: Performed By: #### B MP #### [facility] [address] [address] [address] Reji Thomas PLT 226 103/ul Normal 150-450 [facility] Comment on above: Performed By: #### B MP #### [facility] [address] [address] [address] Reji Thomas RBC 4.23 106/ul Normal 4.20-5.40 [facility] Comment on above: Performed By: #### B MP #### [facility] [address] [address] [address] Reji Thomas WBC 6.3 103/ul Normal 4.0-11.0 [facility] Comment on above: Performed By: #### B MP #### [facility] [address] [address] [address] Reji Thomas FREE THYROXINE INDEX T7on FTI 2.40 Normal 1.30-4.50 [facility] Comment on above: Performed By: #### B WOMEN'S APPAREL SALESPERSON, CMP, TSH, LIPID #### [facility] [address] [place] [address] Dr. Reji Thomas T3U 32.0 % Normal 30.0-39.0 [facility] Comment on above: Performed By: #### B WOMEN'S APPAREL SALESPERSON, CMP, TSH, LIPID #### [facility] [address] [place] [address] Dr. Reji Thomas T4 [Mass/Vol] 7.50 ug/dL Normal 4.80-13.90 [facility] Comment on above: Performed By: #### B WOMEN'S APPAREL SALESPERSON, CMP, TSH, LIPID #### [facility] [address] [place] [address] Dr. Reji Thomas GLYCOHEMOGLOBIN A1Con 2022 ADA RECOMMENDATION SEE BELOW Normal [facility] Comment on above: Result Comment: ADA RECOMMENDED LIMIT 4.0 - 6.0 ADA THERAPEUTIC TARGET < 7.0 ACTION SUGGESTED > 7.0 Performed By: #### B WOMEN'S APPAREL SALESPERSON, CMP, TSH, LIPID #### [facility] [address] [address] [address] Reji Thomas Glucose [Mass/Vol] 97 mg/dL Normal [facility] Comment on above: Performed By: #### B WOMEN'S APPAREL SALESPERSON, CMP, TSH, LIPID #### [facility] [address] [address] [address] Reji Thomas HbA1c (Bld) [Mass fraction] 5.0 % Normal 4.5-6.2 [facility] Comment on above: Performed By: #### B WOMEN'S APPAREL SALESPERSON, CMP, TSH, LIPID #### [facility] [address] [address] [address] Reji Thomas IRONon 03-22-2023 Iron [Mass/Vol] 47.0 ug/dL Critically low 50.0-170.0 [facility] Comment on above: Performed By: #### B WOMEN'S APPAREL SALESPERSON, CMP, TSH, LIPID #### [facility] [address] [place] [address] Dr. Reji Thomas LIPID PROFILEon 03-22-2023 CHOL-HDL RATIO NORM SEE BELOW Normal [facility] Comment on above: Result Comment: 3.3 - 4.4 LOW RISK 4.4 - 7.1 AVERAGE RISK 7.1 - 11.0 MODERATE RISK >11.0 HIGH RISK Performed By: #### M G, TSH, LIPID, T7, CMP, BNP #### [facility] [address] [address] [address] Reji Thomas Cholesterol [Mass/Vol] 188 mg/dL Normal <=200 [facility] Comment on above: Performed By: #### M G, TSH, LIPID, T7, CMP, BNP #### [facility] [address] [address] [address] Reji Thomas Cholesterol in HDL [Mass/Vol] 53 mg/dL Normal 40-60 [facility] Comment on above: Performed By: #### M G, TSH, LIPID, T7, CMP, BNP #### [facility] [address] [address] [address] Reji Thomas Cholesterol in LDL [Mass/Vol] 111.6 mg/dL Normal [facility] Comment on above: Performed By: #### M G, TSH, LIPID, T7, CMP, BNP #### [facility] [address] [address] [address] Reji Thomas Cholesterol.total/Ch olesterol in HDL [Mass ratio] 3.5 {ratio} Normal [facility] Comment on above: Performed By: #### M G, TSH, LIPID, T7, CMP, BNP #### [facility] [address] [address] [address] Reji Thomas HDL NORMAL > or = 60 mg/dl - LOW CARDIOVASCULAR RISK <40 mg/dl - HIGH CARDIOVASCULAR RISK Normal [facility] Comment on above: Performed By: #### M G, TSH, LIPID, T7, CMP, BNP #### [facility] [address] [place] [address] Dr. Reji Thomas LDL CALC NORMAL SEE BELOW Normal [facility] Comment on above: Result Comment: <100 mg/dl OPTIMAL 100 - 129 mg/dl NEAR OR ABOVE OPTIMAL 130 - 159 mg/dl BORDERLINE HIGH 160 - 189 mg/dl HIGH >190 mg/dl VERY HIGH Performed By: #### M G, TSH, LIPID, T7, CMP, BNP #### [facility] [address] [address] [address] Reji Thomas Triglyceride [Mass/Vol] 117 mg/dL Normal <=150 [facility] Comment on above: Performed By: #### M G, TSH, LIPID, T7, CMP, BNP #### [facility] [address] [address] [address] Reji Thomas VLDL CALC 23.4 mg/dL Normal [facility] Comment on above: Performed By: #### M G, TSH, LIPID, T7, CMP, BNP #### [facility] [address] [address] [address] Reji Thomas MAGNESIUMon 03-22-2023 Magnesium [Mass/Vol] 2.4 mg/dL Normal 1.8-2.4 [facility] Comment on above: Performed By: #### B WOMEN'S APPAREL SALESPERSON, CMP, TSH, LIPID #### [facility] [address] [place] [address] Dr. Reji Thomas PROF 14(COMP METB)on 023 Albumin [Mass/Vol] 3.4 g/dL Normal 3.4-5.0 [facility] Comment on above: Performed By: #### M G, TSH, LIPID, T7, CMP, BNP #### [facility] [address] [place] [address] Dr. Reji Thomas Albumin/Globulin [Mass ratio] 0.8 {ratio} Normal [facility] Comment on above: Performed By: #### M G, TSH, LIPID, T7, CMP, BNP #### [facility] [address] [place] [address] Dr. Reji Thomas ALP [Catalytic activity/Vol] 61 U/L Normal 46-116 [facility] Comment on above: Performed By: #### M G, TSH, LIPID, T7, CMP, BNP #### [facility] [address] [place] [address] Dr. Reji Thomas ALT [Catalytic activity/Vol] 15 U/L Normal 14-59 [facility] Comment on above: Performed By: #### M G, TSH, LIPID, T7, CMP, BNP #### [facility] [address] [place] [address] Dr. Reji Thomas Anion gap [Moles/Vol] 13.1 mmol/L Normal [facility] Comment on above: Performed By: #### M G, TSH, LIPID, T7, CMP, BNP #### [facility] [address] [place] [address] Dr. Reji Thomas AST [Catalytic activity/Vol] 13 U/L Critically low 15-37 [facility] Comment on above: Performed By: #### M G, TSH, LIPID, T7, CMP, BNP #### [facility] [address] [place] [address] Dr. Reji Thomas Bilirubin [Mass/Vol] 0.4 mg/dL Normal 0.2-1.0 [facility] Comment on above: Performed By: #### M G, TSH, LIPID, T7, CMP, BNP #### [facility] [address] [place] [address] Dr. Reji Thomas Calcium [Mass/Vol] 8.5 mg/dL Normal 8.5-10.1 [facility] Comment on above: Performed By: #### M G, TSH, LIPID, T7, CMP, BNP #### [facility] [address] [place] [address] Dr. Reji Thomas Chloride [Moles/Vol] 106 mmol/L Normal 98-107 [facility] Comment on above: Performed By: #### M G, TSH, LIPID, T7, CMP, BNP #### [facility] [address] [place] [address] Dr. Reji Thomas CO2 [Moles/Vol] 27.6 mmol/L Normal 21.0-32.0 [facility] Comment on above: Performed By: #### M G, TSH, LIPID, T7, CMP, BNP #### [facility] [address] [place] [address] Dr. Reji Thomas Creatinine [Mass/Vol] 2.32 mg/dL Critically high 0.55-1.02 [facility] Comment on above: Performed By: #### M G, TSH, LIPID, T7, CMP, BNP #### [facility] [address] [place] [address] Dr. Reji Thomas EGFR-AF HONDURAN 24 mL/min/1.73m2 Critically low >=60 [facility] Comment on above: Performed By: #### M G, TSH, LIPID, T7, CMP, BNP #### [facility] [address] [place] [address] Dr. Reji Thomas EGFR-NON AF HONDURAN 20 mL/min/1.73m2 Critically low >=60 [facility] Comment on above: Performed By: #### M G, TSH, LIPID, T7, CMP, BNP #### [facility] [address] [place] [address] Dr. Reji Thomas Globulin (S) [Mass/Vol] 4.3 g/dL Normal [facility] Comment on above: Performed By: #### M G, TSH, LIPID, T7, CMP, BNP #### [facility] [address] [address] [address] Reji Thomas Glucose [Mass/Vol] 88 mg/dL Normal 74-106 [facility] Comment on above: Performed By: #### M G, TSH, LIPID, T7, CMP, BNP #### [facility] [address] [address] [address] Reji Thomas Potassium [Moles/Vol] 4.7 mmol/L Normal 3.5-5.1 [facility] Comment on above: Performed By: #### M G, TSH, LIPID, T7, CMP, BNP #### [facility] [address] [address] [address] Reji Thomas Protein [Mass/Vol] 7.7 g/dL Normal 6.4-8.2 [facility] Comment on above: Performed By: #### M G, TSH, LIPID, T7, CMP, BNP #### [facility] [address] [place] [address] Dr. Reji Thomas Sodium [Moles/Vol] 142 mmol/L Normal 136-145 [facility] Comment on above: Performed By: #### M G, TSH, LIPID, T7, CMP, BNP #### [facility] [address] [address] [address] Reji Thomas Urea nitrogen [Mass/Vol] 38.0 mg/dL Critically high 7.0-18.0 [facility] Comment on above: Performed By: #### M G, TSH, LIPID, T7, CMP, BNP #### [facility] [address] [place] [address] Dr. Reji Thomas Urea nitrogen/Creatinine [Mass ratio] 16.4 mg/mg Normal [facility] Comment on above: Performed By: #### M G, TSH, LIPID, T7, CMP, BNP #### [facility] [address] [place] [address] Dr. Reji Thomas PROTIMEon 03-22-2023 INR Coag (PPP) [Relative time] 1.98 {INR} Normal [facility] Comment on above: Performed By: #### P T #### [facility] [address] [place] [address] Dr. Reji Thomas INR GUIDELINES SEE BELOW Normal [facility] Comment on above: Result Comment: SHY RED INR: 2.0 - 3.0 CONDITIONS NOT LISTED BELOW 2.5 - 3.5 FOR PROSTHETIC HEART VALVE REPLACEMENT 2.5 - 3.5 RECURRENT THROMBOSIS Performed By: #### P T #### [facility] [address] [place] [address] Dr. Reji Thomas PT Coag (PPP) [Time] 20.2 s Critically high 9.0-11.6 [facility] Comment on above: Performed By: #### P T #### [facility] [address] [place] [address] Dr. Reji Thomas TSHon 03-22-2023 TSH 2.265 uIU/mL Normal 0.358-3.740 [facility] Comment on above: Performed By: #### B WOMEN'S APPAREL SALESPERSON, CMP, TSH, LIPID #### [facility] [address] [place] [address] Dr. Reji Thomas VITAMIN D 25 OHon 03-22-2023 VIT D 25-OH 53.1 ng/mL Normal [facility] Comment on above: Performed By: #### B MP #### [facility] [address] [place] [address] Dr. Reji Thomas VIT D RANGES SEE BELOW Normal [facility] Comment on above: Result Comment: <20 ng/mL Vit D deficient 20 - <30 ng/mL Vit D insufficient 30 - 100 ng/mL Vit D sufficient >100 ng/mL Potential Toxicity Performed By: #### B MP #### [facility] [address] [place] [address] Dr. Reji Thomas PROTIMEon 02-22-2023 INR Coag (PPP) [Relative time] 2.22 {INR} Normal [facility] Comment on above: Performed By: #### B WOMEN'S APPAREL SALESPERSON, CMP, TSH, LIPID #### [facility] [address] [place] [address] Dr. Reji Thomas INR GUIDELINES SEE BELOW Normal [facility] Comment on above: Result Comment: SHY RED INR: 2.0 - 3.0 CONDITIONS NOT LISTED BELOW 2.5 - 3.5 FOR PROSTHETIC HEART VALVE REPLACEMENT 2.5 - 3.5 RECURRENT THROMBOSIS Performed By: #### B WOMEN'S APPAREL SALESPERSON, CMP, TSH, LIPID #### [facility] [address] [place] [address] Dr. Reji Thomas PT Coag (PPP) [Time] 22.5 s Critically high 9.0-11.6 [facility] Comment on above: Performed By: #### B WOMEN'S APPAREL SALESPERSON, CMP, TSH, LIPID #### [facility] [address] [place] [address] Dr. Reji Thomas PROTIMEon 01-03-2023 INR Coag (PPP) [Relative time] 2.53 {INR} Normal [facility] Comment on above: Performed By: #### B MP #### [facility] [address] [place] [address] Dr. Reji Thomas INR GUIDELINES SEE BELOW Normal [facility] Comment on above: Result Comment: SHY RED INR: 2.0 - 3.0 CONDITIONS NOT LISTED BELOW 2.5 - 3.5 FOR PROSTHETIC HEART VALVE REPLACEMENT 2.5 - 3.5 RECURRENT THROMBOSIS Performed By: #### B MP #### [facility] [address] [place] [address] Dr. Reji Thomas PT Coag (PPP) [Time] 25.4 s Critically high 9.0-11.6 [facility] Comment on above: Performed By: #### B MP #### [facility] [address] [place] [address] Dr. Reji Thomas PROTIMEon 11-23-2022 INR Coag (PPP) [Relative time] 1.71 {INR} Normal [facility] Comment on above: Performed By: #### B WOMEN'S APPAREL SALESPERSON, CMP, TSH, LIPID #### [facility] [address] [place] [address] Dr. Reji Thomas INR GUIDELINES SEE BELOW Normal [facility] Comment on above: Result Comment: SHY RED INR: 2.0 - 3.0 CONDITIONS NOT LISTED BELOW 2.5 - 3.5 FOR PROSTHETIC HEART VALVE REPLACEMENT 2.5 - 3.5 RECURRENT THROMBOSIS Performed By: #### B WOMEN'S APPAREL SALESPERSON, CMP, TSH, LIPID #### [facility] [address] [place] [address] Dr. Reji Thomas PT Coag (PPP) [Time] 17.6 s Critically high 9.0-11.6 [facility] Comment on above: Performed By: #### B WOMEN'S APPAREL SALESPERSON, CMP, TSH, LIPID #### [facility] [address] [place] [address] Dr. Reji Thomas PROTIMEon 10-10-2022 INR Coag (PPP) [Relative time] 2.52 {INR} Normal [facility] Comment on above: Performed By: #### B WOMEN'S APPAREL SALESPERSON, CMP, TSH, LIPID #### [facility] [address] [place] [address] Dr. Reji Thomas INR GUIDELINES SEE BELOW Normal [facility] Comment on above: Result Comment: SHY RED INR: 2.0 - 3.0 CONDITIONS NOT LISTED BELOW 2.5 - 3.5 FOR PROSTHETIC HEART VALVE REPLACEMENT 2.5 - 3.5 RECURRENT THROMBOSIS Performed By: #### B WOMEN'S APPAREL SALESPERSON, CMP, TSH, LIPID #### [facility] [address] [place] [address] Dr. Reji Thomas PT Coag (PPP) [Time] 25.6 s Critically high 9.0-11.6 [facility] Comment on above: Performed By: #### B WOMEN'S APPAREL SALESPERSON, CMP, TSH, LIPID #### [facility] [address] [place] [address] Dr. Reji Thomas PROTIMEon 09-05-2022 INR Coag (PPP) [Relative time] 2.03 {INR} Normal [facility] Comment on above: Performed By: #### B WOMEN'S APPAREL SALESPERSON, CMP, TSH, LIPID #### [facility] [address] [place] [address] Dr. Reji Thomas INR GUIDELINES SEE BELOW Normal [facility] Comment on above: Result Comment: SHY RED INR: 2.0 - 3.0 CONDITIONS NOT LISTED BELOW 2.5 - 3.5 FOR PROSTHETIC HEART VALVE REPLACEMENT 2.5 - 3.5 RECURRENT THROMBOSIS Performed By: #### B WOMEN'S APPAREL SALESPERSON, CMP, TSH, LIPID #### [facility] [address] [place] [address] Dr. Reji Thomas PT Coag (PPP) [Time] 20.9 s Critically high 9.0-11.6 [facility] Comment on above: Performed By: #### B WOMEN'S APPAREL SALESPERSON, CMP, TSH, LIPID #### [facility] [address] [place] [address] Dr. Reji Thomas BNPon 08-10-2022 Natriuretic peptide B (Bld) [Mass/Vol] 1162.0 pg/mL Normal <=1,800.0 [facility] Comment on above: Performed By: #### B MP, BNP #### [facility] [address] [place] [address] Dr. Reji Thomas PROF CHEM 8 (BAS METB)on Anion gap [Moles/Vol] 11.3 mmol/L Normal [facility] Comment on above: Performed By: #### B MP, BNP #### [facility] [address] [place] [address] Dr. Reji Thomas Calcium [Mass/Vol] 8.9 mg/dL Normal 8.5-10.1 [facility] Comment on above: Performed By: #### B MP, BNP #### [facility] [address] [place] [address] Dr. Reji Thomas Chloride [Moles/Vol] 103 mmol/L Normal 98-107 [facility] Comment on above: Performed By: #### B MP, BNP #### [facility] [address] [place] [address] Dr. Reji Thomas CO2 [Moles/Vol] 28.2 mmol/L Normal 21.0-32.0 [facility] Comment on above: Performed By: #### B MP, BNP #### [facility] [address] [place] [address] Dr. Reji Thomas Creatinine [Mass/Vol] 2.07 mg/dL Critically high 0.55-1.02 [facility] Comment on above: Performed By: #### B MP, BNP #### [facility] [address] [place] [address] Dr. Reji Thomas EGFR-AF HONDURAN 28 mL/min/1.73m2 Critically low >=60 [facility] Comment on above: Performed By: #### B MP, BNP #### [facility] [address] [address] [address] Reji Thomas EGFR-NON AF HONDURAN 23 mL/min/1.73m2 Critically low >=60 [facility] Comment on above: Performed By: #### B MP, BNP #### [facility] [address] [address] [address] Reji Thomas Glucose [Mass/Vol] 88 mg/dL Normal 74-106 [facility] Comment on above: Performed By: #### B MP, BNP #### [facility] [address] [place] [address] Dr. Reji Thomas Potassium [Moles/Vol] 4.5 mmol/L Normal 3.5-5.1 [facility] Comment on above: Performed By: #### B MP, BNP #### [facility] [address] [place] [address] Dr. Reji Thomas Sodium [Moles/Vol] 138 mmol/L Normal 136-145 [facility] Comment on above: Performed By: #### B MP, BNP #### [facility] [address] [place] [address] Dr. Reji Thomas Urea nitrogen [Mass/Vol] 35.0 mg/dL Critically high 7.0-18.0 [facility] Comment on above: Performed By: #### B MP, BNP #### [facility] [address] [place] [address] Dr. Reji Thomas Urea nitrogen/Creatinine [Mass ratio] 16.9 mg/mg Normal [facility] Comment on above: Performed By: #### B MP, BNP #### [facility] [address] [place] [address] Dr. Reji Thomas PROTIMEon 08-09-2022 INR Coag (PPP) [Relative time] 2.04 {INR} Normal [facility] Comment on above: Performed By: #### B WOMEN'S APPAREL SALESPERSON, CMP, TSH, LIPID #### [facility] [address] [place] [address] Dr. Reji Thomas INR GUIDELINES SEE BELOW Normal [facility] Comment on above: Result Comment: SHY RED INR: 2.0 - 3.0 CONDITIONS NOT LISTED BELOW 2.5 - 3.5 FOR PROSTHETIC HEART VALVE REPLACEMENT 2.5 - 3.5 RECURRENT THROMBOSIS Performed By: #### B WOMEN'S APPAREL SALESPERSON, CMP, TSH, LIPID #### [facility] [address] [place] [address] Dr. Reji Thomas PT Coag (PPP) [Time] 21.0 s Critically high 9.0-11.6 [facility] Comment on above: Performed By: #### B WOMEN'S APPAREL SALESPERSON, CMP, TSH, LIPID #### [facility] [address] [place] [address] Dr. Reji Thomas BNPon 07-09-2022 Natriuretic peptide B (Bld) [Mass/Vol] 2085.0 pg/mL Critically high <=1,800.0 [facility] Comment on above: Result Comment: CRIT ICAL CALLED TO OFFICE ON 07-10-22 AT 0850 BY AR Performed By: #### B WOMEN'S APPAREL SALESPERSON, CMP, TSH, LIPID #### [facility] [address] [place] [address] Dr. Reji Thomas PROF CHEM 8 (BAS METB)on Anion gap [Moles/Vol] 13.7 mmol/L Normal [facility] Comment on above: Performed By: #### B WOMEN'S APPAREL SALESPERSON, CMP, TSH, LIPID #### [facility] [address] [place] [address] Dr. Reji Thomas Calcium [Mass/Vol] 8.3 mg/dL Critically low 8.5-10.1 [facility] Comment on above: Performed By: #### B WOMEN'S APPAREL SALESPERSON, CMP, TSH, LIPID #### [facility] [address] [place] [address] Dr. Reji Thomas Chloride [Moles/Vol] 104 mmol/L Normal 98-107 [facility] Comment on above: Performed By: #### B WOMEN'S APPAREL SALESPERSON, CMP, TSH, LIPID #### [facility] [address] [place] [address] Dr. Reji Thomas CO2 [Moles/Vol] 26.6 mmol/L Normal 21.0-32.0 [facility] Comment on above: Performed By: #### B WOMEN'S APPAREL SALESPERSON, CMP, TSH, LIPID #### [facility] [address] [address] [address] Reji Thomas Creatinine [Mass/Vol] 1.98 mg/dL Critically high 0.55-1.02 [facility] Comment on above: Performed By: #### B WOMEN'S APPAREL SALESPERSON, CMP, TSH, LIPID #### [facility] [address] [address] [address] Reji Thomas EGFR-AF HONDURAN 29 mL/min/1.73m2 Critically low >=60 [facility] Comment on above: Performed By: #### B WOMEN'S APPAREL SALESPERSON, CMP, TSH, LIPID #### [facility] [address] [place] [address] Dr. Reji Thomas EGFR-NON AF HONDURAN 24 mL/min/1.73m2 Critically low >=60 [facility] Comment on above: Performed By: #### B WOMEN'S APPAREL SALESPERSON, CMP, TSH, LIPID #### [facility] [address] [address] [address] Reji Thomas Glucose [Mass/Vol] 116 mg/dL Critically high 74-106 [facility] Comment on above: Performed By: #### B WOMEN'S APPAREL SALESPERSON, CMP, TSH, LIPID #### [facility] [address] [address] [address] Reji Thomas Potassium [Moles/Vol] 4.3 mmol/L Normal 3.5-5.1 [facility] Comment on above: Performed By: #### B WOMEN'S APPAREL SALESPERSON, CMP, TSH, LIPID #### [facility] [address] [address] [address] Reji Thomas Sodium [Moles/Vol] 140 mmol/L Normal 136-145 [facility] Comment on above: Performed By: #### B WOMEN'S APPAREL SALESPERSON, CMP, TSH, LIPID #### [facility] [address] [address] [address] Reji Thomas Urea nitrogen [Mass/Vol] 35.0 mg/dL Critically high 7.0-18.0 [facility] Comment on above: Performed By: #### B WOMEN'S APPAREL SALESPERSON, CMP, TSH, LIPID #### [facility] [address] [address] [address] Reji Thomas Urea nitrogen/Creatinine [Mass ratio] 17.7 mg/mg Normal [facility] Comment on above: Performed By: #### B WOMEN'S APPAREL SALESPERSON, CMP, TSH, LIPID #### [facility] [address] [place] [address] Dr. Reji Thomas PROTIMEon 07-09-2022 INR Coag (PPP) [Relative time] 2.99 {INR} Normal [facility] Comment on above: Performed By: #### B WOMEN'S APPAREL SALESPERSON, CMP, TSH, LIPID #### [facility] [address] [place] [address] Dr. Reji Thomas INR GUIDELINES SEE BELOW Normal [facility] Comment on above: Result Comment: SHY RED INR: 2.0 - 3.0 CONDITIONS NOT LISTED BELOW 2.5 - 3.5 FOR PROSTHETIC HEART VALVE REPLACEMENT 2.5 - 3.5 RECURRENT THROMBOSIS Performed By: #### B WOMEN'S APPAREL SALESPERSON, CMP, TSH, LIPID #### [facility] [address] [place] [address] Dr. Reji Thomas PT Coag (PPP) [Time] 30.1 s Critically high 9.0-11.6 [facility] Comment on above: Performed By: #### B WOMEN'S APPAREL SALESPERSON, CMP, TSH, LIPID #### [facility] [address] [place] [address] Dr. Reji Thomas US KIDNEYSon 07-06-2022 US [...] by: SIGRID RICHMOND Date: 2022-07-06 13:31 Normal [facility] EVAN Antinuclear Antibodieson 06-19-2022 Antinuclear Abs, IFA Positive Critically abnormal . [facility] Comment on above: Result Comment: Nega tive <1:80 Borderline 1:80 Positive >1:80 Performed By: #### Krista CHOW ADDONUAPLUS #### [facility] [address] [place] [address] #### C3, C4, CH50 #### [facility] , Homogeneous Pattern 1:320 High . [facility] Comment on above: Result Comment: ICAP nomenclature: [id number] Performed By: #### Krista CHOW ADDONUAPLUS #### [facility] [address] [place] [address] #### C3, C4, CH50 #### [facility] , Note 1 Normal . [facility] Comment on above: Result Comment: For [...] titers Nucleosomes, Histones Drug-induced SLE Speckled Sm, DEPUTY EDITOR IN CHIEF, SCL-70, SLE,MCTD,PSS (diffuse form), SS-A/SS-B Sjogrens Nucleolar SCL-70, PM-1/SCL High titers Scleroderma, PM/DM Centromere Centromere PSS (limited form) w/Crest syndrome variable Nuclear Dot [id number] Primary Biliary Cirrhosis Nuclear GP210, Primary Biliary Cirrhosis Membrane eleonora A,B,C Performed at: [facility] - [address] [id number] Acct Exec: Demarcus Lawton PhD, Phone: [phone] Performed By: #### C UU, ADDONUAPLUS #### [address] #### C3, C4, CH50 #### [facility] , Anti-RNPon 06-19-2022 Anti-DEPUTY EDITOR IN CHIEF 0.4 Normal 0.0-0.9 [facility] Comment on above: Result Comment: Perf ormed at: [address] [id number] Acct Exec: Demarcus Lawton PhD, Phone: [phone] Performed By: #### C UU, ADDONUAPLUS #### [address] #### C3, C4, CH50 #### [facility] , C-Reactive Proteinon 022 C-Reactive Protein 2.0 mg/dL High 0.0-1.0 [facility] Comment on above: Result Comment: PERF ORMED BY: [place] [address] PATH[employer]IST [employer]IVER RADHA BULLARD M.D. Performed By: #### C UU, ADDONUAPLUS #### [address] #### C3, C4, CH50 #### [facility] , Complement C3on 06-19-2022 Complement C3 167 mg/dL Normal 82-167 [facility] Comment on above: Result Comment: Perf ormed at: [address] [id number] Acct Exec: Demarcus Lawton PhD, Phone: [phone] Performed By: #### C UU, ADDONUAPLUS #### [address] #### C3, C4, CH50 #### [facility] , Complement C4on 06-19-2022 Complement C4 37 mg/dL Normal 12-38 [facility] Comment on above: Performed By: #### C GERALDO ADDONUAPLUS #### [address] #### C3, C4, CH50 #### [facility] , Complement Total (CH50)on Complement Total (CH50) >60 Normal >41 [facility] Comment on above: Result Comment: Age [...] range values. Performed at: [facility] [address] [id number] Acct Exec: Demarcus Lawton PhD, Phone: [phone] PERFORMED BY: [place] [address] PATHOLOGIST [employer]CHOOL [employer] DRIVER RADHA BULLARD M.D. Performed By: #### C COURTNEY CHOWONUAPLUS #### [address] #### C3, C4, CH50 #### [facility] , Complete Blood Count Auto Di ffon 06-19-2022 Basophils (Bld) [#/Vol] 0.1 10*3/uL Normal 0.0-0.2 [facility] Comment on above: Performed By: #### H EPATIC, CBC, ESR, CRP, CREAT, CK #### [facility] [address] [place] [address] #### RNA POLYMR, ANTI TH TO, EVAN, U3 DEPUTY EDITOR IN CHIEF, ANTIR, PM-SCL ABS #### [facility] , Basophils/100 WBC (Bld) 0.9 % Normal . [facility] Comment on above: Performed By: #### H EPATIC, CBC, ESR, CRP, CREAT, CK #### [place] [address] [place] #### RNA POLYMR, ANTI TH TO, EVAN, U3 DEPUTY EDITOR IN CHIEF, ANTIR, PM-SCL ABS #### [facility] , Eosinophils (Bld) [#/Vol] 0.5 10*3/uL High 0.0-0.45 [facility] Comment on above: Performed By: #### H EPATIC, CBC, ESR, CRP, CREAT, CK #### [place] [address] [place] #### RNA POLYMR, ANTI TH TO, EVAN, U3 DEPUTY EDITOR IN CHIEF, ANTIR, PM-SCL ABS #### [facility] , Eosinophils/100 WBC (Bld) 8.6 % Normal . [facility] Comment on above: Performed By: #### H EPATIC, CBC, ESR, CRP, CREAT, CK #### [place] [address] [place] #### RNA POLYMR, ANTI TH TO, EVAN, U3 DEPUTY EDITOR IN CHIEF, ANTIR, PM-SCL ABS #### [facility] , Erythrocyte distribution width (RBC) [Ratio] 19.6 % High 11.9-15.3 [facility] Comment on above: Performed By: #### H EPATIC, CBC, ESR, CRP, CREAT, CK #### [place] [address] [place] #### RNA POLYMR, ANTI TH TO, EVAN, U3 DEPUTY EDITOR IN CHIEF, ANTIR, PM-SCL ABS #### [facility] , Hematocrit (Bld) [Volume fraction] 33.8 % Low 34.0-46.4 [facility] Comment on above: Performed By: #### H EPATIC, CBC, ESR, CRP, CREAT, CK #### [place] [address] [place] #### RNA POLYMR, ANTI TH TO, EVAN, U3 DEPUTY EDITOR IN CHIEF, ANTIR, PM-SCL ABS #### [facility] , Hemoglobin (Bld) [Mass/Vol] 10.9 g/dL Low 11.8-15.4 [facility] Comment on above: Performed By: #### H EPATIC, CBC, ESR, CRP, CREAT, CK #### [facility] [address] [place] [address] [place] #### RNA POLYMR, ANTI TH TO, EVAN, U3 DEPUTY EDITOR IN CHIEF, ANTIR, PM-SCL ABS #### [facility] , Lymphocytes (Bld) [#/Vol] 1.1 10*3/uL Normal 1.00-4.8 [facility] Comment on above: Performed By: #### H EPATIC, CBC, ESR, CRP, CREAT, CK #### [place] [address] [place] #### RNA POLYMR, ANTI TH TO, EVAN, U3 DEPUTY EDITOR IN CHIEF, ANTIR, PM-SCL ABS #### [facility] , Lymphocytes/100 WBC (Bld) 17.8 % Normal . [facility] Comment on above: Performed By: #### H EPATIC, CBC, ESR, CRP, CREAT, CK #### [place] [address] [place] #### RNA POLYMR, ANTI TH TO, EVAN, U3 DEPUTY EDITOR IN CHIEF, ANTIR, PM-SCL ABS #### [facility] , MCH (RBC) [Entitic mass] 26.4 pg Normal 24.7-34.3 [facility] Comment on above: Performed By: #### H EPATIC, CBC, ESR, CRP, CREAT, CK #### [facility] [address] [place] [address] [place] #### RNA POLYMR, ANTI TH TO, EVAN, U3 DEPUTY EDITOR IN CHIEF, ANTIR, PM-SCL ABS #### [facility] , MCV (RBC) [Entitic vol] 81.8 fL Normal 80-100 [facility] Comment on above: Performed By: #### H EPATIC, CBC, ESR, CRP, CREAT, CK #### [place] [address] [place] #### RNA POLYMR, ANTI TH TO, EVAN, U3 DEPUTY EDITOR IN CHIEF, ANTIR, PM-SCL ABS #### [facility] , Mean Corpuscular HGB Conc 32.3 g/dL Normal 32.0-35.0 [facility] Comment on above: Performed By: #### H EPATIC, CBC, ESR, CRP, CREAT, CK #### [address] #### RNA POLYMR, ANTI TH TO, EVAN, U3 DEPUTY EDITOR IN CHIEF, ANTIR, PM-SCL ABS #### [facility] , Monocytes (Bld) [#/Vol] 0.4 10*3/uL Normal 0.0-0.8 [facility] Comment on above: Performed By: #### H EPATIC, CBC, ESR, CRP, CREAT, CK #### [place] [address] [place] #### RNA POLYMR, ANTI TH TO, EVAN, U3 DEPUTY EDITOR IN CHIEF, ANTIR, PM-SCL ABS #### [facility] , Monocytes/100 WBC (Bld) 7.4 % Normal . [facility] Comment on above: Performed By: #### H EPATIC, CBC, ESR, CRP, CREAT, CK #### [facility] [address] [place] [address] [place] #### RNA POLYMR, ANTI TH TO, EVAN, U3 DEPUTY EDITOR IN CHIEF, ANTIR, PM-SCL ABS #### [facility] , Neutrophils (Bld) [#/Vol] 3.9 10*3/uL Normal 1.8-7.7 [facility] Comment on above: Performed By: #### H EPATIC, CBC, ESR, CRP, CREAT, CK #### [place] [address] [place] #### RNA POLYMR, ANTI TH TO, EVAN, U3 DEPUTY EDITOR IN CHIEF, ANTIR, PM-SCL ABS #### [facility] , Neutrophils/100 WBC (Bld) 65.3 % Normal . [facility] Comment on above: Performed By: #### H EPATIC, CBC, ESR, CRP, CREAT, CK #### [address] #### RNA POLYMR, ANTI TH TO, EVAN, U3 DEPUTY EDITOR IN CHIEF, ANTIR, PM-SCL ABS #### [facility] , Nucleated RBC/100 WBC (Bld) [Ratio] 0.0 % Normal 0-0.5 [facility] Comment on above: Performed By: #### H EPATIC, CBC, ESR, CRP, CREAT, CK #### [address] #### RNA POLYMR, ANTI TH TO, EVAN, U3 DEPUTY EDITOR IN CHIEF, ANTIR, PM-SCL ABS #### [facility] , Platelet mean volume (Bld) [Entitic vol] 7.2 fL Normal 6.3-10.7 [facility] Comment on above: Performed By: #### H EPATIC, CBC, ESR, CRP, CREAT, CK #### [place] [address] [place] #### RNA POLYMR, ANTI TH TO, EVAN, U3 DEPUTY EDITOR IN CHIEF, ANTIR, PM-SCL ABS #### [facility] , Platelets (Bld) [#/Vol] 237 10*3/uL Normal 150-450 [facility] Comment on above: Performed By: #### H EPATIC, CBC, ESR, CRP, CREAT, CK #### [facility] [address] [place] [address] [place] #### RNA POLYMR, ANTI TH TO, EVAN, U3 DEPUTY EDITOR IN CHIEF, ANTIR, PM-SCL ABS #### [facility] , RBC (Bld) [#/Vol] 4.14 10*6/uL Normal 3.60-5.00 [facility] Comment on above: Performed By: #### H EPATIC, CBC, ESR, CRP, CREAT, CK #### [facility] [address] [place] [address] #### RNA POLYMR, ANTI TH TO, EVAN, U3 DEPUTY EDITOR IN CHIEF, ANTIR, PM-SCL ABS #### [facility] , WBC (Bld) [#/Vol] 6.0 10*3/uL Normal 4.5-11.0 [facility] Comment on above: Performed By: #### H EPATIC, CBC, ESR, CRP, CREAT, CK #### [facility] [address] [place] [address] #### RNA POLYMR, ANTI TH TO, EVAN, U3 DEPUTY EDITOR IN CHIEF, ANTIR, PM-SCL ABS #### [facility] , Creatine Kinaseon 06-19-2022 CK [Catalytic activity/Vol] 38 U/L Normal 22-269 [facility] Comment on above: Result Comment: PERF ORMED BY: [place] [address] PATH[employer]IST [employer]IVER RADHA BULLARD M.D. Performed By: #### H EPATIC, CBC, ESR, CRP, CREAT, CK #### [address] #### RNA POLYMR, ANTI TH TO, EVAN, U3 DEPUTY EDITOR IN CHIEF, ANTIR, PM-SCL ABS #### [facility] , Creatinineon 06-19-2022 Creatinine [Mass/Vol] 2.82 mg/dL High 0.44-1.03 [facility] Comment on above: Performed By: #### H EPATIC, CBC, ESR, CRP, CREAT, CK #### [facility] [address] [place] [address] [place] #### RNA POLYMR, ANTI TH TO, EVAN, U3 DEPUTY EDITOR IN CHIEF, ANTIR, PM-SCL ABS #### [facility] , Estimated GFR ( Oralia 19 Normal [facility] Comment on above: Result Comment: GFR estimated reference range: According to KDOQI guidelines, <60 ml/min/1.73m2 is sufficient to diagnose a patient with chronic kidney disease. Performed By: #### H EPATIC, CBC, ESR, CRP, CREAT, CK #### [address] #### RNA POLYMR, ANTI TH TO, EVAN, U3 DEPUTY EDITOR IN CHIEF, ANTIR, PM-SCL ABS #### [facility] , Estimated GFR (Non- Am 16 Normal [facility] Comment on above: Performed By: #### H EPATIC, CBC, ESR, CRP, CREAT, CK #### [address] #### RNA POLYMR, ANTI TH TO, EVAN, U3 DEPUTY EDITOR IN CHIEF, ANTIR, PM-SCL ABS #### [facility] , Dipstick and Microscopicon 0 06-19-2022 Appearance (U) Cloudy Critically abnormal Clear [facility] Comment on above: Order Comment: Name Collection Type:: Clean-Voided Midstream Performed By: #### C UU, ADDONUAPLUS #### [address] #### C3, C4, CH50 #### [facility] , Bacteria,Urine 1+ High None Seen [facility] Comment on above: Order Comment: Name Collection Type:: Clean-Voided Midstream Performed By: #### C UU, ADDONUAPLUS #### [address] #### C3, C4, CH50 #### [facility] , Bilirubin,Urine Negative Normal Negative [facility] Comment on above: Order Comment: Name Collection Type:: Clean-Voided Midstream Performed By: #### C UU, ADDONUAPLUS #### [address] #### C3, C4, CH50 #### [facility] , Color (U) Yellow Normal Yellow [facility] Comment on above: Order Comment: Name Collection Type:: Clean-Voided Midstream Performed By: #### C UU, ADDONUAPLUS #### [address] #### C3, C4, CH50 #### [facility] , Glucose Ql (U) Normal Normal Normal [facility] Comment on above: Order Comment: Name Collection Type:: Clean-Voided Midstream Performed By: #### C UU, ADDONUAPLUS #### [address] #### C3, C4, CH50 #### [facility] , Hyaline Casts,Urine 1-2 Normal 0-8 [facility] Comment on above: Order Comment: Name Collection Type:: Clean-Voided Midstream Result Comment: PERF ORMED BY: [place] [address] PATH[employer]IVER RADHA BULLARD M.D. Performed By: #### C UU, ADDONUAPLUS #### [address] #### C3, C4, CH50 #### [facility] , Ketones Ql (U) Negative Normal Negative [facility] Comment on above: Order Comment: Name Collection Type:: Clean-Voided Midstream Performed By: #### C UU, ADDONUAPLUS #### [address] #### C3, C4, CH50 #### [facility] , Leukocyte esterase Test strip Ql (U) 4+ High Negative [facility] Comment on above: Order Comment: Name Collection Type:: Clean-Voided Midstream Performed By: #### C UU, ADDONUAPLUS #### [address] #### C3, C4, CH50 #### [facility] , Nitrite,Urine Negative Normal Negative [facility] Comment on above: Order Comment: Name Collection Type:: Clean-Voided Midstream Performed By: #### C UU, ADDONUAPLUS #### [address] #### C3, C4, CH50 #### [facility] , Occult Blood,Urine 1+ High Negative [facility] Comment on above: Order Comment: Name Collection Type:: Clean-Voided Midstream Performed By: #### C UU, ADDONUAPLUS #### [address] #### C3, C4, CH50 #### [facility] , pH (U) 6.5 [pH] Normal 5.0-9.0 [facility] Comment on above: Order Comment: Name Collection Type:: Clean-Voided Midstream Performed By: #### C UU, ADDONUAPLUS #### [address] #### C3, C4, CH50 #### [facility] , Protein,Urine Trace High Negative [facility] Comment on above: Order Comment: Name Collection Type:: Clean-Voided Midstream Performed By: #### C UU, ADDONUAPLUS #### [facility] [address] [place] [address] #### C3, C4, CH50 #### [facility] , RBC,Urine 1-2 Normal 0-4 [facility] Comment on above: Order Comment: Name Collection Type:: Clean-Voided Midstream Performed By: #### C UU, ADDONUAPLUS #### [address] #### C3, C4, CH50 #### [facility] , Specificy [place],Urine 1.010 Normal 1.001-1.030 [facility] Comment on above: Order Comment: Name Collection Type:: Clean-Voided Midstream Performed By: #### C UU, ADDONUAPLUS #### [address] #### C3, C4, CH50 #### [facility] , Squamous Epithelial Cell,Urine 5-9 High 0-2 [facility] Comment on above: Order Comment: Name Collection Type:: Clean-Voided Midstream Performed By: #### C UU, ADDONUAPLUS #### [address] #### C3, C4, CH50 #### [facility] , Urobilinogen,Urine Normal Normal Normal [facility] Comment on above: Order Comment: Name Collection Type:: Clean-Voided Midstream Performed By: #### C UU, ADDONUAPLUS #### [address] #### C3, C4, CH50 #### [facility] , WBC,Urine Innumerable High 0-4 [facility] Comment on above: Order Comment: Name Collection Type:: Clean-Voided Midstream Performed By: #### C UU, ADDONUAPLUS #### [address] #### C3, C4, CH50 #### [facility] , Erythrocyte Sedimentation Ra pratik 06-19-2022 ESR (Bld) [Velocity] 57 mm/h High 0-29 [facility] Comment on above: Result Comment: PERF ORMED BY: [place] [address] PATH[employer] RADHA BULLARD M.D. Performed By: #### H EPATIC, CBC, ESR, CRP, CREAT, CK #### [address] #### RNA POLYMR, ANTI TH TO, EVAN, U3 DEPUTY EDITOR IN CHIEF, ANTIR, PM-SCL ABS #### [facility] , Hepatic Panelon 06-19-2022 Albumin [Mass/Vol] 3.6 g/dL Normal 3.2-5.5 [facility] Comment on above: Performed By: #### H EPATIC, CBC, ESR, CRP, CREAT, CK #### [facility] [address] [place] [address] #### RNA POLYMR, ANTI TH TO, EVAN, U3 DEPUTY EDITOR IN CHIEF, ANTIR, PM-SCL ABS #### [facility] , Albumin/Globulin [Mass ratio] 1.0 {ratio} Normal [facility] Comment on above: Performed By: #### H EPATIC, CBC, ESR, CRP, CREAT, CK #### [facility] [address] [place] [address] #### RNA POLYMR, ANTI TH TO, EVAN, U3 DEPUTY EDITOR IN CHIEF, ANTIR, PM-SCL ABS #### [facility] , ALP [Catalytic activity/Vol] 68 U/L Normal 32-92 [facility] Comment on above: Performed By: #### H EPATIC, CBC, ESR, CRP, CREAT, CK #### [facility] [address] [place] [address] [place] #### RNA POLYMR, ANTI TH TO, EVAN, U3 DEPUTY EDITOR IN CHIEF, ANTIR, PM-SCL ABS #### [facility] , ALT [Catalytic activity/Vol] 9 U/L Low 10-60 [facility] Comment on above: Performed By: #### H EPATIC, CBC, ESR, CRP, CREAT, CK #### [facility] [address] [place] [address] [place] #### RNA POLYMR, ANTI TH TO, EVAN, U3 DEPUTY EDITOR IN CHIEF, ANTIR, PM-SCL ABS #### [facility] , AST [Catalytic activity/Vol] 15 U/L Normal 10-42 [facility] Comment on above: Performed By: #### H EPATIC, CBC, ESR, CRP, CREAT, CK #### [place] [address] [place] #### RNA POLYMR, ANTI TH TO, EVAN, U3 DEPUTY EDITOR IN CHIEF, ANTIR, PM-SCL ABS #### [facility] , Bilirubin [Mass/Vol] 0.6 mg/dL Normal 0.3-1.2 [facility] Comment on above: Performed By: #### H EPATIC, CBC, ESR, CRP, CREAT, CK #### [place] [address] [place] #### RNA POLYMR, ANTI TH TO, EVAN, U3 DEPUTY EDITOR IN CHIEF, ANTIR, PM-SCL ABS #### [facility] , Bilirubin,Indirect 0.4 mg/dL Normal [facility] Comment on above: Performed By: #### H EPATIC, CBC, ESR, CRP, CREAT, CK #### [place] [address] [place] #### RNA POLYMR, ANTI TH TO, EVAN, U3 DEPUTY EDITOR IN CHIEF, ANTIR, PM-SCL ABS #### [facility] , Bilirubin.indirect [Mass/Vol] 0.2 mg/dL Normal 0.0-0.4 [facility] Comment on above: Performed By: #### H EPATIC, CBC, ESR, CRP, CREAT, CK #### [address] #### RNA POLYMR, ANTI TH TO, EVAN, U3 DEPUTY EDITOR IN CHIEF, ANTIR, PM-SCL ABS #### [facility] , Globulin (S) [Mass/Vol] 3.5 g/dL Normal [facility] Comment on above: Performed By: #### H EPATIC, CBC, ESR, CRP, CREAT, CK #### [place] [address] [place] #### RNA POLYMR, ANTI TH TO, EVAN, U3 DEPUTY EDITOR IN CHIEF, ANTIR, PM-SCL ABS #### [facility] , Protein [Mass/Vol] 7.1 g/dL Normal 6.1-7.9 [facility] Comment on above: Performed By: #### H EPATIC, CBC, ESR, CRP, CREAT, CK #### [facility] [address] [place] [address] #### RNA POLYMR, ANTI TH TO, EVAN, U3 DEPUTY EDITOR IN CHIEF, ANTIR, PM-SCL ABS #### [facility] , PM-SCL Antibodieson 06-19-20 22 RAIZA PM-Scl Antibody <20 Normal <20 [facility] Comment on above: Result Comment: This test was developed and its performance characteristics determined by [facility]. It has not been cleared or approved by the Food and Drug Administration. Negative: <20 Weak Positive: 20 - 39 Moderate Positive: 40 - 80 Strong Positive: >80 Performed at: [facility] [address] [place] [address] [id number] Acct Exec: Artemio Nair MD, Phone: [phone] Performed By: #### C UU, ADDONUAPLUS #### [address] #### C3, C4, CH50 #### [facility] , RNA Polymerase IIion 022 RNA Polymerase IIi <20 Normal <20 [facility] Comment on above: Result Comment: Nega tive: <20 Weak Positive: 20 - 39 Moderate Positive: 40 - 80 Strong Positive: >80 Performed at: [employer] [address] [place] [address] [id number] Acct Exec: Artemio Nair MD, Phone: [phone] PERFORMED BY: [place] [address] PATHOLOGIST [employer]CHOOL [employer]IVER RADHA BULLARD M.D. Performed By: #### C UU, ADDONUAPLUS #### [place] [address] [place] #### C3, C4, CH50 #### [facility] , Th/To Antibodyon 06-19-2022 Th/To Antibody Negative Normal Negative [facility] Comment on above: Result Comment: This test was developed and its performance characteristics determined by [facility]. It has not been cleared or approved by the Food and Drug Administration. Performed at: [facility] [address] [place] [place] [address] [id number] Acct Exec: Artemio Nair MD, Phone: [phone] Performed By: #### C UU, ADDONUAPLUS #### [facility] [address] [place] [address] #### C3, C4, CH50 #### [facility] , U3 Rnpon 06-19-2022 U3 Saw Boss Negative Normal Negative [facility] Comment on above: Result Comment: This test was developed and its performance characteristics determined by [facility]. It has not been cleared or approved by the Food and Drug Administration. Performed at: [facility] [address] [place] [place] [address] [id number] Acct Exec: Artemio Nair MD, Phone: [phone] PERFORMED BY: [place] [address] PATHOLOGIST [employer]CHOOL [employer] DRIVER RADHA BULLARD M.D. Performed By: #### C UU, ADDONUAPLUS #### [address] #### C3, C4, CH50 #### [facility] , Urine Cultureon 06-19-2022 Bacteria identified Cx Nom (U) No Growth 2 Days PERFORMED BY: [place] [address] PATHOLOGIST [employer]CHOOL [employer] DRIVER RADHA BULLARD M.D. [facility] Comment on above: Performed By: #### C UU, ADDONUAPLUS #### [address] #### C3, C4, CH50 #### [facility] , PROF CHEM 8 (BAS METB)on Anion gap [Moles/Vol] 12.5 mmol/L Normal [facility] Comment on above: Performed By: #### B MP #### [facility] [address] [address] [address] Reji Thomas Calcium [Mass/Vol] 8.9 mg/dL Normal 8.5-10.1 [facility] Comment on above: Performed By: #### B MP #### [facility] [address] [address] [address] Reji Thomas Chloride [Moles/Vol] 103 mmol/L Normal 98-107 [facility] Comment on above: Performed By: #### B MP #### [facility] [address] [address] [address] Reji Thomas CO2 [Moles/Vol] 26.1 mmol/L Normal 21.0-32.0 [facility] Comment on above: Performed By: #### B MP #### [facility] [address] [place] [address] Dr. Reji Thomas Creatinine [Mass/Vol] 2.09 mg/dL Critically high 0.55-1.02 [facility] Comment on above: Performed By: #### B MP #### [facility] [address] [place] [address] Dr. Reji Thomas EGFR-AF HONDURAN 27 mL/min/1.73m2 Critically low >=60 [facility] Comment on above: Performed By: #### B MP #### [facility] [address] [place] [address] Dr. Reji Thomas EGFR-NON AF HONDURAN 23 mL/min/1.73m2 Critically low >=60 [facility] Comment on above: Performed By: #### B MP #### [facility] [address] [address] [address] Reji Thomas Glucose [Mass/Vol] 96 mg/dL Normal 74-106 [facility] Comment on above: Performed By: #### B MP #### [facility] [address] [place] [address] Dr. Reji Thomas Potassium [Moles/Vol] 4.6 mmol/L Normal 3.5-5.1 [facility] Comment on above: Performed By: #### B MP #### [facility] [address] [address] [address] Reji Thomas Sodium [Moles/Vol] 137 mmol/L Normal 136-145 [facility] Comment on above: Performed By: #### B MP #### [facility] [address] [address] [address] Reji Thomas Urea nitrogen [Mass/Vol] 38.0 mg/dL Critically high 7.0-18.0 [facility] Comment on above: Performed By: #### B MP #### [facility] [address] [place] [address] Dr. Reji Thomas Urea nitrogen/Creatinine [Mass ratio] 18.2 mg/mg Normal [facility] Comment on above: Performed By: #### B MP #### [facility] [address] [place] [address] Dr. Reji Thomas PROTIMEon 06-04-2022 INR Coag (PPP) [Relative time] 2.51 {INR} Normal [facility] Comment on above: Performed By: #### B WOMEN'S APPAREL SALESPERSON, CMP, TSH, LIPID #### [facility] [address] [place] [address] Dr. Reji Thomas INR GUIDELINES SEE BELOW Normal [facility] Comment on above: Result Comment: SHY RED INR: 2.0 - 3.0 CONDITIONS NOT LISTED BELOW 2.5 - 3.5 FOR PROSTHETIC HEART VALVE REPLACEMENT 2.5 - 3.5 RECURRENT THROMBOSIS Performed By: #### B WOMEN'S APPAREL SALESPERSON, CMP, TSH, LIPID #### [facility] [address] [place] [address] Dr. Reji Thomas PT Coag (PPP) [Time] 25.5 s Critically high 9.0-11.6 [facility] Comment on above: Performed By: #### B WOMEN'S APPAREL SALESPERSON, CMP, TSH, LIPID #### [facility] [address] [place] [address] Dr. Reji Thomas BNPon 05-15-2022 Natriuretic peptide B (Bld) [Mass/Vol] 3661.0 pg/mL Critically high <=1,800.0 [facility] Comment on above: Performed By: #### B WOMEN'S APPAREL SALESPERSON, CMP, TSH, LIPID #### [facility] [address] [place] [address] Dr. Reji Thomas CBC AUTO DIFFon 05-15-2022 BASO # 0.1 103/ul Normal 0.0-0.1 [facility] Comment on above: Performed By: #### B MP #### [facility] [address] [address] [address] Reji Thomas Basophils/100 WBC (Bld) 1.1 % Normal 0.2-2.0 [facility] Comment on above: Performed By: #### B MP #### [facility] [address] [place] [address] Dr. Reji Thomas EO # 0.5 103/ul Normal 0.0-0.7 [facility] Comment on above: Performed By: #### B MP #### [facility] [address] [place] [address] Dr. Reji Thomas Eosinophils/100 WBC (Bld) 6.5 % Normal 0.9-7.0 [facility] Comment on above: Performed By: #### B MP #### [facility] [address] [place] [address] Dr. Reji Thomas Erythrocyte distribution width (RBC) [Ratio] 16.1 % Critically high 11.0-15.0 [facility] Comment on above: Performed By: #### B MP #### [facility] [address] [place] [address] Dr. Reji Thomas Hematocrit (Bld) [Volume fraction] 35.0 % Critically low 36.0-48.0 [facility] Comment on above: Performed By: #### B MP #### [facility] [address] [place] [address] Dr. Reji Thomas Hemoglobin (Bld) [Mass/Vol] 11.1 g/dL Critically low 12.0-16.0 [facility] Comment on above: Performed By: #### B MP #### [facility] [address] [place] [address] Dr. Reji Thomas IG # 0.02 10e3/ul Normal 0.00-0.03 [facility] Comment on above: Performed By: #### B MP #### [facility] [address] [place] [address] Dr. Reji Thomas IG % 0.3 % Normal 0.0-0.5 [facility] Comment on above: Performed By: #### B MP #### [facility] [address] [place] [address] Dr. Reji Thomas LYMPH # 1.6 103/ul Normal 1.2-3.8 [facility] Comment on above: Performed By: #### B MP #### [facility] [address] [place] [address] Dr. Reji Thomas Lymphocytes/100 WBC (Bld) 22.4 % Normal 20.5-60.0 [facility] Comment on above: Performed By: #### B MP #### [facility] [address] [place] [address] Dr. Reji Thomas MANUAL DIFF REQ NO Normal [facility] Comment on above: Performed By: #### B MP #### [facility] [address] [place] [address] Dr. Reji Thomas MCH (RBC) [Entitic mass] 26.4 pg Critically low 26.7-34.0 [facility] Comment on above: Performed By: #### B MP #### [facility] [address] [place] [address] Dr. Reji Thomas MCHC (RBC) [Mass/Vol] 31.7 g/dL Normal 29.9-35.2 [facility] Comment on above: Performed By: #### B MP #### [facility] [address] [place] [address] Dr. Reji Thomas MCV (RBC) [Entitic vol] 83.1 fL Normal 81.0-99.0 [facility] Comment on above: Performed By: #### B MP #### [facility] [address] [place] [address] Dr. Reji Thomas MONO # 0.9 103/ul Critically high 0.3-0.8 [facility] Comment on above: Performed By: #### B MP #### [facility] [address] [place] [address] Dr. Reji Thomas Monocytes/100 WBC (Bld) 12.1 % Critically high 1.7-12.0 [facility] Comment on above: Performed By: #### B MP #### [facility] [address] [place] [address] Dr. Reji Thomas NEUT # 4.1 103/ul Normal 1.4-6.5 [facility] Comment on above: Performed By: #### B MP #### [facility] [address] [place] [address] Dr. Reji Thomas Neutrophils/100 WBC (Bld) 57.6 % Normal 43.0-75.0 [facility] Comment on above: Performed By: #### B MP #### [facility] [address] [place] [address] Dr. Reji Thomas Platelet mean volume (Bld) [Entitic vol] 8.8 fL Critically low 9.5-13.5 [facility] Comment on above: Performed By: #### B MP #### [facility] [address] [place] [address] Dr. Reji Thomas PLT 253 103/ul Normal 150-450 [facility] Comment on above: Performed By: #### B MP #### [facility] [address] [place] [address] Dr. Reji Thomas RBC 4.21 106/ul Normal 4.20-5.40 [facility] Comment on above: Performed By: #### B MP #### [facility] [address] [place] [address] Dr. Reji Thomas WBC 7.1 103/ul Normal 4.0-11.0 [facility] Comment on above: Performed By: #### B MP #### [facility] [address] [place] [address] Dr. Reji Thomas PROF CHEM 8 (BAS METB)on Anion gap [Moles/Vol] 10.5 mmol/L Normal [facility] Comment on above: Performed By: #### B WOMEN'S APPAREL SALESPERSON, CMP, TSH, LIPID #### [facility] [address] [address] [address] Reji Thomas Calcium [Mass/Vol] 8.9 mg/dL Normal 8.5-10.1 [facility] Comment on above: Performed By: #### B WOMEN'S APPAREL SALESPERSON, CMP, TSH, LIPID #### [facility] [address] [address] [address] Reji Thomas Chloride [Moles/Vol] 104 mmol/L Normal 98-107 [facility] Comment on above: Performed By: #### B WOMEN'S APPAREL SALESPERSON, CMP, TSH, LIPID #### [facility] [address] [address] [address] Reji Thomas CO2 [Moles/Vol] 29.5 mmol/L Normal 21.0-32.0 [facility] Comment on above: Performed By: #### B WOMEN'S APPAREL SALESPERSON, CMP, TSH, LIPID #### [facility] [address] [place] [address] Dr. Reji Thomas Creatinine [Mass/Vol] 1.73 mg/dL Critically high 0.55-1.02 [facility] Comment on above: Performed By: #### B WOMEN'S APPAREL SALESPERSON, CMP, TSH, LIPID #### [facility] [address] [place] [address] Dr. Reji Thomas EGFR-AF HONDURAN 34 mL/min/1.73m2 Critically low >=60 [facility] Comment on above: Performed By: #### B WOMEN'S APPAREL SALESPERSON, CMP, TSH, LIPID #### [facility] [address] [place] [address] Dr. Reji Thomas EGFR-NON AF HONDURAN 28 mL/min/1.73m2 Critically low >=60 [facility] Comment on above: Performed By: #### B WOMEN'S APPAREL SALESPERSON, CMP, TSH, LIPID #### [facility] [address] [address] [address] Reji Thomas Glucose [Mass/Vol] 79 mg/dL Normal 74-106 [facility] Comment on above: Performed By: #### B WOMEN'S APPAREL SALESPERSON, CMP, TSH, LIPID #### [facility] [address] [place] [address] Dr. Reji Thomas Potassium [Moles/Vol] 4.0 mmol/L Normal 3.5-5.1 [facility] Comment on above: Performed By: #### B WOMEN'S APPAREL SALESPERSON, CMP, TSH, LIPID #### [facility] [address] [place] [address] Dr. Reji Thomas Sodium [Moles/Vol] 140 mmol/L Normal 136-145 [facility] Comment on above: Performed By: #### B WOMEN'S APPAREL SALESPERSON, CMP, TSH, LIPID #### [facility] [address] [place] [address] Dr. Reji Thomas Urea nitrogen [Mass/Vol] 22.0 mg/dL Critically high 7.0-18.0 [facility] Comment on above: Performed By: #### B WOMEN'S APPAREL SALESPERSON, CMP, TSH, LIPID #### [facility] [address] [place] [address] Dr. Reji Thomas Urea nitrogen/Creatinine [Mass ratio] 12.7 mg/mg Normal [facility] Comment on above: Performed By: #### B WOMEN'S APPAREL SALESPERSON, CMP, TSH, LIPID #### [facility] [address] [place] [address] Dr. Reji Thomas PROTIMEon 05-15-2022 INR Coag (PPP) [Relative time] 2.53 {INR} Normal [facility] Comment on above: Performed By: #### B WOMEN'S APPAREL SALESPERSON, CMP, TSH, LIPID #### [facility] [address] [place] [address] Dr. Reji Thomas INR GUIDELINES SEE BELOW Normal [facility] Comment on above: Result Comment: SHY RED INR: 2.0 - 3.0 CONDITIONS NOT LISTED BELOW 2.5 - 3.5 FOR PROSTHETIC HEART VALVE REPLACEMENT 2.5 - 3.5 RECURRENT THROMBOSIS Performed By: #### B WOMEN'S APPAREL SALESPERSON, CMP, TSH, LIPID #### [facility] [address] [place] [address] Dr. Reji Thomas PT Coag (PPP) [Time] 25.7 s Critically high 9.0-11.6 [facility] Comment on above: Performed By: #### B WOMEN'S APPAREL SALESPERSON, CMP, TSH, LIPID #### [facility] [address] [address] [address] Reji Thomas ECHOCARDIO M/2D COMPLETEon 0 05-04-2022 ECHOCARDIO M/2D COMPLETE Patient: INEZ JUAREZ Exam Date: 05/04/2022 : 1940 Gender:F Ordering : DR JENN PRADO M.D. Admission #: [id number] Family : Order #: [id number] CLICK HERE TO VIEW EXAM ECHOCARDIOGRAM REPORT [...] Area(A4C): 27.20 cm2 Left Atrium Systolic Volume(A2C): 956576 mm3 Left Atrium Systolic Volume(A4C): 00120 mm3 Mitral Valve MV E to A Ratio: 2.60 Deceleration Gentry: 43723 mm/s2 Mitral Valve A-Wave Peak Velocity: 58.60 [...] 4 mm[Hg] Right Atrium Dictated by: Jenn rPado M.D. on 05/07/2022 at 11:31 Approved by: Jenn Prado M.D. on 05/07/2022 at 11:39 Normal [facility] EVAN by IFAon 04-19-2022 Antinuclear Antibodies, IFA Positive Abnormal [facility] Comment on above: Result Comment: Nega tive <1:80 Borderline 1:80 Positive >1:80 Performed By: #### B WOMEN'S APPAREL SALESPERSON, CMP, TSH, LIPID #### [facility] [address] [address] [address] Reji Thomas Centriole Pattern Normal [facility] Comment on above: Performed By: #### B WOMEN'S APPAREL SALESPERSON, CMP, TSH, LIPID #### [facility] [address] [id number] Reji Thomas Centromere Pattern Normal [facility] Comment on above: Performed By: #### B WOMEN'S APPAREL SALESPERSON, CMP, TSH, LIPID #### [facility] [address] [place], [place] [address] Dr. Reji Thomas Homogeneous Pattern 1:320 Critically high [facility] Comment on above: Result Comment: ICAP nomenclature: AC-1 Performed By: #### B WOMEN'S APPAREL SALESPERSON, CMP, TSH, LIPID #### [facility] [address] [place], [place] [address] Dr. Reji Thomas Midbody Pattern Normal [facility] Comment on above: Performed By: #### B WOMEN'S APPAREL SALESPERSON, CMP, TSH, LIPID #### [facility] [address] [place], [place] [address] Dr. Reji Thomas Note: Comment Normal [facility] Comment on above: Result Comment: For more [...] titers Nucleosomes, Histones Drug-induced SLE Speckled Sm, DEPUTY EDITOR IN CHIEF, SCL-70, SLE,MCTD,PSS (diffuse form), SS-A/SS-B Sjogrens Nucleolar SCL-70, PM-1/SCL High titers Scleroderma, PM/DM Centromere Centromere PSS (limited form) w/Crest syndrome variable Nuclear Dot [id number] Primary Biliary Cirrhosis Nuclear GP210, Primary Biliary Cirrhosis Membrane eleonora A,B,C Performed By: #### B WOMEN'S APPAREL SALESPERSON, CMP, TSH, LIPID #### [facility] [address] [place] [address] Dr. Reji Thomas Nuclear Dot Pattern Normal [facility] Comment on above: Performed By: #### B WOMEN'S APPAREL SALESPERSON, CMP, TSH, LIPID #### [facility] [address] [place] [address] Dr. Reji Thomas Nuclear Membrane Pattern Normal [facility] Comment on above: Performed By: #### B WOMEN'S APPAREL SALESPERSON, CMP, TSH, LIPID #### [facility] [address] [place] [address] Dr. Reji Thomas Nucleolar Pattern Normal [facility] Comment on above: Performed By: #### B WOMEN'S APPAREL SALESPERSON, CMP, TSH, LIPID #### [facility] [address] [address] [address] Reji Thomas PCNA Pattern Normal [facility] Comment on above: Performed By: #### B WOMEN'S APPAREL SALESPERSON, CMP, TSH, LIPID #### [facility] [address] [address] [address] Reji Thomas Speckled Pattern Normal [facility] Comment on above: Performed By: #### B WOMEN'S APPAREL SALESPERSON, CMP, TSH, LIPID #### [facility] [address] [address] [address] Reji Thomas Spindle Apparatus Pattern Normal [facility] Comment on above: Performed By: #### B WOMEN'S APPAREL SALESPERSON, CMP, TSH, LIPID #### [facility] [address] [address] [address] Reji Thomas ANCA (ANTINEUTROPHIL CYTOPLA MSMIC ABon 04-18-2022 Atypical pANCA <1:20 Normal Neg:<1:20 [facility] Comment on above: Result Comment: Seru m is slightly hemolyzed The atypical pANCA pattern has been observed in a significant percentage of patients with ulcerative colitis, primary sclerosing cholangitis and autoimmune hepatitis. Performed By: #### B MP #### [facility] [address] [address] [address] Reji Thomas Cytoplasmic (C-ANCA) <1:20 Normal Neg:<1:20 [facility] Comment on above: Result Comment: Seru m is slightly hemolyzed Performed By: #### B MP #### [facility] [address] [address] [address] Reji Thomas Perinuclear (P-ANCA) <1:20 Normal Neg:<1:20 [facility] Comment on above: Result Comment: Seru [...] 1999;111:507-513. Performed By: #### B MP #### [facility] [address] [place] [address] Dr. Reji Thomas ANTISCLERODERMA ABon 022 Antiscleroderma-70 Antibodies 0.3 AI Normal 0.0-0.9 [facility] Comment on above: Performed By: #### B WOMEN'S APPAREL SALESPERSON, CMP, TSH, LIPID #### [facility] [address] [place] [address] Dr. Reji Thomas T3 UPTAKEon 04-18-2022 Free Thyroxine Index 1.8 Normal 1.2-4.9 [facility] Comment on above: Performed By: #### B WOMEN'S APPAREL SALESPERSON, CMP, TSH, LIPID #### [facility] [address] [place] [address] Dr. Reji Thomas T3 Uptake 23 % Critically low 24-39 [facility] Comment on above: Performed By: #### B WOMEN'S APPAREL SALESPERSON, CMP, TSH, LIPID #### [facility] [address] [place] [address] Dr. Reji Thomas T4 LABCORPon 04-18-2022 T4 [Mass/Vol] 7.8 ug/dL Normal 4.5-12.0 [facility] Comment on above: Performed By: #### B WOMEN'S APPAREL SALESPERSON, CMP, TSH, LIPID #### [facility] [address] [place] [address] Dr. Reji Thomas BNPon 04-16-2022 Natriuretic peptide B (Bld) [Mass/Vol] 2870.0 pg/mL Critically high <=1,800.0 [facility] Comment on above: Result Comment: repe ated Performed By: #### B WOMEN'S APPAREL SALESPERSON, CMP, TSH, LIPID #### [facility] [address] [place] [address] Dr. Reji Thomas CBC AUTO DIFFon 04-16-2022 BASO # 0.1 103/ul Normal 0.0-0.1 [facility] Comment on above: Performed By: #### B WOMEN'S APPAREL SALESPERSON, CMP, TSH, LIPID #### [facility] [address] [place] [address] Dr. Reji Thomas Basophils/100 WBC (Bld) 0.9 % Normal 0.2-2.0 [facility] Comment on above: Performed By: #### B WOMEN'S APPAREL SALESPERSON, CMP, TSH, LIPID #### [facility] [address] [place] [address] Dr. Reji Thomas EO # 0.3 103/ul Normal 0.0-0.7 [facility] Comment on above: Performed By: #### B WOMEN'S APPAREL SALESPERSON, CMP, TSH, LIPID #### [facility] [address] [place] [address] Dr. Reji Thomas Eosinophils/100 WBC (Bld) 3.9 % Normal 0.9-7.0 [facility] Comment on above: Performed By: #### B WOMEN'S APPAREL SALESPERSON, CMP, TSH, LIPID #### [facility] [address] [place] [address] Dr. Reji Thomas Erythrocyte distribution width (RBC) [Ratio] 15.9 % Critically high 11.0-15.0 [facility] Comment on above: Performed By: #### B WOMEN'S APPAREL SALESPERSON, CMP, TSH, LIPID #### [facility] [address] [place] [address] Dr. Reji Thomas Hematocrit (Bld) [Volume fraction] 38.1 % Normal 36.0-48.0 [facility] Comment on above: Performed By: #### B WOMEN'S APPAREL SALESPERSON, CMP, TSH, LIPID #### [facility] [address] [place] [address] Dr. Reji Thomas Hemoglobin (Bld) [Mass/Vol] 12.1 g/dL Normal 12.0-16.0 [facility] Comment on above: Performed By: #### B WOMEN'S APPAREL SALESPERSON, CMP, TSH, LIPID #### [facility] [address] [place] [address] Dr. Reji Thomas IG # 0.02 10e3/ul Normal 0.00-0.03 [facility] Comment on above: Performed By: #### B WOMEN'S APPAREL SALESPERSON, CMP, TSH, LIPID #### [facility] [address] [place] [address] Dr. Reji Thomas IG % 0.3 % Normal 0.0-0.5 [facility] Comment on above: Performed By: #### B WOMEN'S APPAREL SALESPERSON, CMP, TSH, LIPID #### [facility] [address] [place] [address] Dr. Reji Thomas LYMPH # 1.6 103/ul Normal 1.2-3.8 [facility] Comment on above: Performed By: #### B WOMEN'S APPAREL SALESPERSON, CMP, TSH, LIPID #### [facility] [address] [place] [address] Dr. Reji Thomas Lymphocytes/100 WBC (Bld) 22.6 % Normal 20.5-60.0 [facility] Comment on above: Performed By: #### B WOMEN'S APPAREL SALESPERSON, CMP, TSH, LIPID #### [facility] [address] [place] [address] Dr. Reji Thomas MANUAL DIFF REQ NO Normal [facility] Comment on above: Performed By: #### B WOMEN'S APPAREL SALESPERSON, CMP, TSH, LIPID #### [facility] [address] [place] [address] Dr. Reji Thomas MCH (RBC) [Entitic mass] 26.5 pg Critically low 26.7-34.0 [facility] Comment on above: Performed By: #### B WOMEN'S APPAREL SALESPERSON, CMP, TSH, LIPID #### [facility] [address] [place] [address] Dr. Reji Thomas MCHC (RBC) [Mass/Vol] 31.8 g/dL Normal 29.9-35.2 [facility] Comment on above: Performed By: #### B WOMEN'S APPAREL SALESPERSON, CMP, TSH, LIPID #### [facility] [address] [place] [address] Dr. Reji Thomas MCV (RBC) [Entitic vol] 83.4 fL Normal 81.0-99.0 [facility] Comment on above: Performed By: #### B WOMEN'S APPAREL SALESPERSON, CMP, TSH, LIPID #### [facility] [address] [place] [address] Dr. Reji Thomas MONO # 0.6 103/ul Normal 0.3-0.8 [facility] Comment on above: Performed By: #### B WOMEN'S APPAREL SALESPERSON, CMP, TSH, LIPID #### [facility] [address] [place], [place] [id number] Dr. Reji Thomas Monocytes/100 WBC (Bld) 9.3 % Normal 1.7-12.0 [facility] Comment on above: Performed By: #### B WOMEN'S APPAREL SALESPERSON, CMP, TSH, LIPID #### [facility] [address] [place] [address] Dr. Reji Thomas NEUT # 4.3 103/ul Normal 1.4-6.5 [facility] Comment on above: Performed By: #### B WOMEN'S APPAREL SALESPERSON, CMP, TSH, LIPID #### [facility] [address] [place] [address] Dr. Reji Thomas Neutrophils/100 WBC (Bld) 63.0 % Normal 43.0-75.0 [facility] Comment on above: Performed By: #### B WOMEN'S APPAREL SALESPERSON, CMP, TSH, LIPID #### [facility] [address] [place] [address] Dr. Reji Thomas Platelet mean volume (Bld) [Entitic vol] 9.2 fL Critically low 9.5-13.5 [facility] Comment on above: Performed By: #### B WOMEN'S APPAREL SALESPERSON, CMP, TSH, LIPID #### [facility] [address] [place] [address] Dr. Reji Thomas PLT 211 103/ul Normal 150-450 [facility] Comment on above: Performed By: #### B WOMEN'S APPAREL SALESPERSON, CMP, TSH, LIPID #### [facility] [address] [place] [address] Dr. Reji Thomas RBC 4.57 106/ul Normal 4.20-5.40 [facility] Comment on above: Performed By: #### B WOMEN'S APPAREL SALESPERSON, CMP, TSH, LIPID #### [facility] [address] [place] [address] Dr. Reji Thomas WBC 6.9 103/ul Normal 4.0-11.0 [facility] Comment on above: Performed By: #### B WOMEN'S APPAREL SALESPERSON, CMP, TSH, LIPID #### [facility] [address] [place] [address] Dr. Reji Thomas GLYCOHEMOGLOBIN A1Con 2021 ADA RECOMMENDATION SEE BELOW Normal [facility] Comment on above: Result Comment: ADA RECOMMENDED LIMIT 4.0 - 6.0 ADA THERAPEUTIC TARGET < 7.0 ACTION SUGGESTED > 7.0 Performed By: #### B WOMEN'S APPAREL SALESPERSON, CMP, TSH, LIPID #### [facility] [address] [address] [address] Reji Thomas Glucose [Mass/Vol] 100 mg/dL Normal [facility] Comment on above: Performed By: #### B WOMEN'S APPAREL SALESPERSON, CMP, TSH, LIPID #### [facility] [address] [address] [address] Reji Thomas HbA1c (Bld) [Mass fraction] 5.1 % Normal 4.5-6.2 [facility] Comment on above: Performed By: #### B WOMEN'S APPAREL SALESPERSON, CMP, TSH, LIPID #### [facility] [address] [place] [address] Dr. Reji Thomas IRONon 04-16-2022 Iron [Mass/Vol] 42.0 ug/dL Critically low 50.0-170.0 [facility] Comment on above: Performed By: #### B WOMEN'S APPAREL SALESPERSON, CMP, TSH, LIPID #### [facility] [address] [place] [address] Dr. Reji Thomas LIPID PROFILEon 04-16-2022 CHOL-HDL RATIO NORM SEE BELOW Normal [facility] Comment on above: Result Comment: 3.3 - 4.4 LOW RISK 4.4 - 7.1 AVERAGE RISK 7.1 - 11.0 MODERATE RISK >11.0 HIGH RISK Performed By: #### B WOMEN'S APPAREL SALESPERSON, CMP, TSH, LIPID #### [facility] [address] [address] [address] Reji Thomas Cholesterol [Mass/Vol] 176 mg/dL Normal <=200 [facility] Comment on above: Performed By: #### B WOMEN'S APPAREL SALESPERSON, CMP, TSH, LIPID #### [facility] [address] [address] [address] Reji Thomas Cholesterol in HDL [Mass/Vol] 52 mg/dL Normal 40-60 [facility] Comment on above: Performed By: #### B WOMEN'S APPAREL SALESPERSON, CMP, TSH, LIPID #### [facility] [address] [place] [address] Dr. Reji Thomas Cholesterol in LDL [Mass/Vol] 102.8 mg/dL Normal [facility] Comment on above: Performed By: #### B WOMEN'S APPAREL SALESPERSON, CMP, TSH, LIPID #### [facility] [address] [place] [address] Dr. Reji Thomas Cholesterol.total/Ch olesterol in HDL [Mass ratio] 3.4 {ratio} Normal [facility] Comment on above: Performed By: #### B WOMEN'S APPAREL SALESPERSON, CMP, TSH, LIPID #### [facility] [address] [place] [address] Dr. Reji Thomas HDL NORMAL > or = 60 mg/dl - LOW CARDIOVASCULAR RISK <40 mg/dl - HIGH CARDIOVASCULAR RISK Normal [facility] Comment on above: Performed By: #### B WOMEN'S APPAREL SALESPERSON, CMP, TSH, LIPID #### [facility] [address] [place] [address] Dr. Reji Thomas LDL CALC NORMAL SEE BELOW Normal [facility] Comment on above: Result Comment: <100 mg/dl OPTIMAL 100 - 129 mg/dl NEAR OR ABOVE OPTIMAL 130 - 159 mg/dl BORDERLINE HIGH 160 - 189 mg/dl HIGH >190 mg/dl VERY HIGH Performed By: #### B WOMEN'S APPAREL SALESPERSON, CMP, TSH, LIPID #### [facility] [address] [address] [address] Reji Thomas Triglyceride [Mass/Vol] 106 mg/dL Normal <=150 [facility] Comment on above: Performed By: #### B WOMEN'S APPAREL SALESPERSON, CMP, TSH, LIPID #### [facility] [address] [place] [address] Dr. Reji Thomas VLDL CALC 21.2 mg/dL Normal [facility] Comment on above: Performed By: #### B WOMEN'S APPAREL SALESPERSON, CMP, TSH, LIPID #### [facility] [address] [place] [address] Dr. Reji Thomas PROF 14(COMP METB)on 022 Albumin [Mass/Vol] 3.6 g/dL Normal 3.4-5.0 [facility] Comment on above: Performed By: #### B WOMEN'S APPAREL SALESPERSON, CMP, TSH, LIPID #### [facility] [address] [address] [address] Reji Thomas Albumin/Globulin [Mass ratio] 0.9 {ratio} Normal [facility] Comment on above: Performed By: #### B WOMEN'S APPAREL SALESPERSON, CMP, TSH, LIPID #### [facility] [address] [place] [address] Dr. Reji Thomas ALP [Catalytic activity/Vol] 62 U/L Normal 46-116 [facility] Comment on above: Performed By: #### B WOMEN'S APPAREL SALESPERSON, CMP, TSH, LIPID #### [facility] [address] [place] [address] Dr. Reji Thomas ALT [Catalytic activity/Vol] 14 U/L Normal 14-59 [facility] Comment on above: Performed By: #### B WOMEN'S APPAREL SALESPERSON, CMP, TSH, LIPID #### [facility] [address] [place] [address] Dr. Reji Thomas Anion gap [Moles/Vol] 14.5 mmol/L Normal [facility] Comment on above: Performed By: #### B WOMEN'S APPAREL SALESPERSON, CMP, TSH, LIPID #### [facility] [address] [place] [address] Dr. Reji Thomas AST [Catalytic activity/Vol] 17 U/L Normal 15-37 [facility] Comment on above: Performed By: #### B WOMEN'S APPAREL SALESPERSON, CMP, TSH, LIPID #### [facility] [address] [place] [address] Dr. Reji Thomas Bilirubin [Mass/Vol] 0.6 mg/dL Normal 0.2-1.0 [facility] Comment on above: Performed By: #### B WOMEN'S APPAREL SALESPERSON, CMP, TSH, LIPID #### [facility] [address] [place] [address] Dr. Reji Thomas Calcium [Mass/Vol] 8.8 mg/dL Normal 8.5-10.1 [facility] Comment on above: Performed By: #### B WOMEN'S APPAREL SALESPERSON, CMP, TSH, LIPID #### [facility] [address] [place] [address] Dr. Reji Thomas Chloride [Moles/Vol] 102 mmol/L Normal 98-107 [facility] Comment on above: Performed By: #### B WOMEN'S APPAREL SALESPERSON, CMP, TSH, LIPID #### [facility] [address] [place] [address] Dr. Reji Thomas CO2 [Moles/Vol] 26.3 mmol/L Normal 21.0-32.0 [facility] Comment on above: Performed By: #### B WOMEN'S APPAREL SALESPERSON, CMP, TSH, LIPID #### [facility] [address] [place] [address] Dr. Reji Thomas Creatinine [Mass/Vol] 1.76 mg/dL Critically high 0.55-1.02 [facility] Comment on above: Performed By: #### B WOMEN'S APPAREL SALESPERSON, CMP, TSH, LIPID #### [facility] [address] [place] [address] Dr. Reji Thomas EGFR-AF HONDURAN 33 mL/min/1.73m2 Critically low >=60 [facility] Comment on above: Performed By: #### B WOMEN'S APPAREL SALESPERSON, CMP, TSH, LIPID #### [facility] [address] [place] [address] Dr. Reji Thomas EGFR-NON AF HONDURAN 28 mL/min/1.73m2 Critically low >=60 [facility] Comment on above: Performed By: #### B WOMEN'S APPAREL SALESPERSON, CMP, TSH, LIPID #### [facility] [address] [place] [address] Dr. Reji Thomas Globulin (S) [Mass/Vol] 4.2 g/dL Normal [facility] Comment on above: Performed By: #### B WOMEN'S APPAREL SALESPERSON, CMP, TSH, LIPID #### [facility] [address] [place] [address] Dr. Reji Thomas Glucose [Mass/Vol] 81 mg/dL Normal 74-106 [facility] Comment on above: Performed By: #### B WOMEN'S APPAREL SALESPERSON, CMP, TSH, LIPID #### [facility] [address] [place] [address] Dr. Reji Thomas Potassium [Moles/Vol] 3.8 mmol/L Normal 3.5-5.1 [facility] Comment on above: Performed By: #### B WOMEN'S APPAREL SALESPERSON, CMP, TSH, LIPID #### [facility] [address] [place] [address] Dr. Reji Thomas Protein [Mass/Vol] 7.8 g/dL Normal 6.4-8.2 [facility] Comment on above: Performed By: #### B WOMEN'S APPAREL SALESPERSON, CMP, TSH, LIPID #### [facility] [address] [place] [address] Dr. Reji Thomas Sodium [Moles/Vol] 139 mmol/L Normal 136-145 [facility] Comment on above: Performed By: #### B WOMEN'S APPAREL SALESPERSON, CMP, TSH, LIPID #### [facility] [address] [place] [address] Dr. Reji Thomas Urea nitrogen [Mass/Vol] 27.0 mg/dL Critically high 7.0-18.0 [facility] Comment on above: Performed By: #### B WOMEN'S APPAREL SALESPERSON, CMP, TSH, LIPID #### [facility] [address] [place] [address] Dr. Reji Thomas Urea nitrogen/Creatinine [Mass ratio] 15.3 mg/mg Normal [facility] Comment on above: Performed By: #### B WOMEN'S APPAREL SALESPERSON, CMP, TSH, LIPID #### [facility] [address] [place] [address] Dr. Reji Thomas PROTIMEon 04-16-2022 INR Coag (PPP) [Relative time] 1.92 {INR} Normal [facility] Comment on above: Performed By: #### B WOMEN'S APPAREL SALESPERSON, CMP, TSH, LIPID #### [facility] [address] [place] [address] Dr. Reji Thomas INR GUIDELINES SEE BELOW Normal [facility] Comment on above: Result Comment: SHY RED INR: 2.0 - 3.0 CONDITIONS NOT LISTED BELOW 2.5 - 3.5 FOR PROSTHETIC HEART VALVE REPLACEMENT 2.5 - 3.5 RECURRENT THROMBOSIS Performed By: #### B WOMEN'S APPAREL SALESPERSON, CMP, TSH, LIPID #### [facility] [address] [place] [address] Dr. Reji Thomas PT Coag (PPP) [Time] 19.9 s Critically high 9.0-11.6 [facility] Comment on above: Performed By: #### B WOMEN'S APPAREL SALESPERSON, CMP, TSH, LIPID #### [facility] [address] [address] [address] [facility]ji [facility] 37 mm/hr Critically high <=30 [facility] Comment on above: Performed By: #### B WOMEN'S APPAREL SALESPERSON, CMP, TSH, LIPID #### [facility] [address] [place] [address] Dr. Reji Thomas TSHon 04-16-2022 TSH 1.941 uIU/mL Normal 0.358-3.740 [facility] Comment on above: Performed By: #### B WOMEN'S APPAREL SALESPERSON, CMP, TSH, LIPID #### [facility] [address] [place] [address] Dr. Reji Thomas TSH RANGE SEE BELOW Normal [facility] Comment on above: Result Comment: <0.3 4 UIU/ml HYPERTHYROID 0.34-5.60 UIU/ml EUTHYROID >5.60 UIU/ml HYPOTHYROID Performed By: #### B WOMEN'S APPAREL SALESPERSON, CMP, TSH, LIPID #### [facility] [address] [place] [address] Dr. Reji Thomas VITAMIN D 25 OHon 04-16-2022 VIT D 25-OH 56.6 ng/mL Normal [facility] Comment on above: Performed By: #### B WOMEN'S APPAREL SALESPERSON, CMP, TSH, LIPID #### [facility] [address] [place] [address] Dr. Reji Thomas VIT D RANGES SEE BELOW Normal [facility] Comment on above: Result Comment: <20 ng/mL Vit D deficient 20 - <30 ng/mL Vit D insufficient 30 - 100 ng/mL Vit D sufficient >100 ng/mL Potential Toxicity Performed By: #### B WOMEN'S APPAREL SALESPERSON, CMP, TSH, LIPID #### [facility] [address] [place] [address] Dr. Reji Thomas Cardiovascular Lab Reporton 11-02-2021 Cardiovascular Lab Report [facility] Patient Name: Inez Juarez MR #: [id number] [facility] Physician: Jenn Prado M.D. Department of Service Date: 11/01/2021 Medicine Birthdate: 1940 Division of Room #: Cardiology Adult Cardiovascular Services [facility] [address] [place] [address] Cardiovascular Laboratory Report INDICATION: The patient is [...] She signed consent. She was brought to center medical and lab director in a fasting state. The right neck area was prepped and draped in usual fashion. Micropuncture technique and ultrasound guidance were used for access in the right internal jugular vein. A 6-Monegasque x 11 cm sheath was placed. A 6-Monegasque Hernández catheter was used for heart catheterization [...] Prado M.D. Date Trans: 11/01/2021 11:22 P/alondra [id number] cc: Bruce Rizvi M.D. [address] [facility] [place] [facility] [address] Normal [facility] Cardiovascular Lab Reporton 06-02-2021 Cardiovascular Lab Report [facility] Patient Name: Inez Juarez MR #: [id number] [facility] Physician: Jenn Prado M.D. Department of Service Date: 06/02/2021 Medicine Birthdate: 1940 Division of Room #: CC Cardiology Adult Cardiovascular Services [facility] [address] [facility] [place] [address] Cardiovascular Laboratory Report INDICATION: The patient is [...] the informed consent. She was brought to center medical and lab director in a fasting state. The right neck area was prepped and draped in usual fashion. Using micropuncture technique and ultrasound guidance, the right internal jugular vein was accessed and a 6-Monegasque x 11 cm sheath was placed. A 6-Monegasque Hernández catheter was used for heart catheterization [...] Prado M.D. Date Trans: 06/02/2021 02:42 P/alondra [id number] cc: Bruce Rizvi M.D. [address] [place] [facility] [address] [facility] Encounters Encounter Date Encounter Type Care Provider Facility Start: 07-03-2024 End: 07-03-2024 ambulatory [facility] Start: 12-13-2023 End: 12-13-2023 ambulatory [facility] Start: 10-30-2023 End: 10-30-2023 ambulatory [facility] Start: 10-22-2023 End: 10-22-2023 ambulatory ANTONY LUIS [facility] Start: 03-22-2023 End: 03-23-[address] [...] [place] Payers Date Payer Category Payer Medicare [id number] 1961 Medicare [id number] 1961 Medicare [id number] 1961 Self-pay [id number] 1940 Unknown [id number] 2.16.8 40.1.089452.3.579.2.647 1940 Unknown [id number] 2.16.8 40.1.659518.3.579.2.647 1940 Unknown [id number] 2.16.84 0.1.580036.3.579.2.593 1938 Unknown [id number] 2.16.84 0.1.335049.3.579.2.593 1938 Unknown [id number] 2.16.84 0.1.614918.3.579.2.593 1938 Unknown [id number] 2.16.84 0.1.208921.3.579.2.593 1938 Unknown [id number] 2.16.84 0.1.826367.3.579.2.593 1938 Unknown [id number] 2.16.84 0.1.220817.3.579.2.593 1938 Unknown [id number] 2.16.84 0.1.453486.3.579.2.593 1938 Unknown [id number] 2.16.84 0.1.234330.3.579.2.593 1938 Unknown [id number] 2.16.84 0.1.135207.3.579.2.593 1938 Unknown [id number] 2.16.84 0.1.699483.3.579.2.593 1938 Unknown [id number] 2.16.84 0.1.684264.3.579.2.593 1938 Unknown [id number] 2.16.84 0.1.434741.3.579.2.593 1938 Unknown [id number] 2.16.84 0.1.767258.3.579.2.593 1938 Unknown [id number] 2.16.84 0.1.609278.3.579.2.593 1938 Unknown [id number] 2.16.84 0.1.936651.3.579.2.593 1938 Unknown [id number] 2.16.84 0.1.006373.3.579.2.593 1938 Unknown [id number] 2.16.84 0.1.693526.3.579.2.593 1938 Unknown [id number] 2.16.84 0.1.048008.3.579.2.593 1938 Unknown [id number] 2.16.84 0.1.412067.3.579.2.593 Private Health Insurance MEB [id number] Progress note 07-03-2024 Note Date & Type Note Facility 07-03-2024 Note [facility] Petrona Juarez is a 84 [...] Pulse 50 Ht (more content not included)... [facility] Progress note 12-13-2023 Note Date & Type Note Facility 12-13-2023 Note [place] [facility] - [facility] Petrona Juarez is a 83 [...] Nose: Nose james (more content not included)... [facility] Progress note 10-30-2023 Note Date & Type Note Facility 10-30-2023 Note [place] [facility] - [facility] Subjective Inez Juarez is a [...] Murmur heard. Systol (more content not included)... [facility] Clinical Note 10-22-2023 Note Date & Type Note Facility 10-22-2023 Note Patient: Inez Withe m Procedure Information Date/Time: 10/22/23829 Procedure: Right heart cath Location: [facility]DER [facility] / [facility] (Cath) Providers: Antony Smith MD [...] with fellow and attending. Additional Equipment Requests [facility] Clinical Note 10-15-2023 Note Date & Type Note Facility 10-15-[address] Smith regarding warfarin. Dr Smith requested warfarin to be held for 3 days prior to procedure. [facility] Progress note 09-19-2023 Note Date & Type Note Facility 09-19-2023 Note [facility] Summary Purpose Family History No Family History Records FoundNo Family History Records FoundNo Family History Records FoundNo Family History Records Found Advance Directives No Advanced Directives Records FoundNo Advanced Directives Records FoundNo Advanced Directives Records FoundNo Advanced Directives Records Found Additional Source Comments INFORMATION SOURCE (unrecogn ized section and content) DATE CREATED AUTHOR 11/03/[address] [facility] DATE CREATED AUTHOR AUTHOR'S ORGANIZ ATION 07/05/2022 [facility] DATE CREATED AUTHOR AUTHOR'S ORGANIZ ATION 03/23/[address] [facility] DATE CREATED AUTHOR AUTHOR'S ORGANIZ ATION 07/05/2024 [facility] FOR RECORDS PERTAINING TO PATIENTS [...] BE BASED ON THE PRIMARY CLINICAL RECORDS. [employer] [facility]. provides no warranty or guarantee of the accuracy or completeness of information in this document.
[2025-04-01 13:51] LABS: Basophils Percent Auto 0.7 % (0.2-2.0); Eosinophils Absolute Auto 0.4 10^3/uL (0.0-0.7); Eosinophils Percent Auto 6.9 % (0.9-7.0); Hematocrit 35.1 % (36.0-48.0); Hemoglobin 10.9 g/dL (12.0-16.0); Immature Granulocytes Abs Auto 0.01 10^3/uL (0.00-0.03); Immature Granulocytes Pct Auto 0.2 % (0.0-0.5); Lymphocytes Absolute Auto 1.1 10^3/uL (1.2-3.8); Lymphocytes Percent Auto 19.7 % (20.5-60.0); Mean Corpuscular HGB Conc 31.1 g/dL (29.9-35.2); Mean Corpuscular Hemoglobin 26.7 pg (26.7-34.0); Mean Corpuscular Volume 85.8 fL (81.0-99.0); Mean Platelet Volume 8.3 fL (9.5-13.5); Monocytes Absolute Auto 0.5 10^3/uL (0.3-0.8); Monocytes Percent Auto 9.4 % (1.7-12.0); Neutrophils Absolute Auto 3.6 10^3/uL (1.4-6.5); Neutrophils Percent Auto 63.1 % (43.0-75.0); Platelet Count 190 10^3/uL (150-450); Red Blood Count 4.09 10^6/uL (4.20-5.40); Red Cell Distribution Width 17.3 % (11.0-15.0); White Blood Count 5.6 10^3/uL (4.0-11.0)
[2025-04-01 14:07] LABS: INR 2.19; Prothrombin Time 21.5 sec (9.0-11.6)
[2025-04-01 14:18] LABS: Alanine Aminotransferase 16 U/L (14-59); Albumin Globulin Ratio 0.8; Albumin Level 3.4 g/dL (3.4-5.0); Alkaline Phosphatase 82 U/L (46-116); Anion Gap 10.9; Aspartate Amino Transferase 14 U/L (15-37); BUN Creatinine Ratio 18.6; Bilirubin Total 0.4 mg/dL (0.2-1.0); Calcium 8.6 mg/dL (8.5-10.1); Carbon Dioxide 30.1 mmol/L (21.0-32.0); Chloride 105 mmol/L (98-107); Chol HDL Ratio 3.4; Cholesterol 187 mg/dL (<=200); Estimated GFR (African America 26 (>=60 mL/min/1.73m^2); Estimated GFR (Non-African Ame 21 (>=60 mL/min/1.73m^2); Free T3 2.64 pg/mL (2.18-3.98); Globulin 4.1 g/dL; Glucose 97 mg/dL (74-106); HDL Cholesterol 55 mg/dL (40-60); LDL Cholesterol Calculated 112.6 mg/dL; Sodium 142 mmol/L (136-145); Thyroid Stimulating Hormone 3.807 uIU/mL (0.358-3.740); Total Protein 7.5 g/dL (6.4-8.2); Triglycerides 97 mg/dL (<=150); VLDL CHOLESTEROL 19.4 mg/dL
[2025-04-01 14:29] LABS: Estimated Average Glucose 114 mg/dL; Glycohemoglobin A1C 5.6 % (4.5-6.2)
== END 2025-04-01 13:33 | disposition home or self-care (01) ==
LOC: LAB 13:33
PROVIDERS: PCP Family Medicine; Visit Provider Family Medicine
DX: I11.0 Hypertensive heart disease with heart failure (principal); I50.30 Unspecified diastolic (congestive) heart failure; I48.20 Chronic atrial fibrillation, unspecified; E78.5 Hyperlipidemia, unspecified; I50.32 Chronic diastolic (congestive) heart failure; I35.0 Nonrheumatic aortic (valve) stenosis; R73.09 Other abnormal glucose; E55.9 Vitamin D deficiency, unspecified
CPT/HCPCS: 36415; 80053; 80061; 82306; 83036; 83540; 83880; 84436; 84443; 84481; 85025; 85610

== ENCOUNTER 2025-05-06 13:51 | Outpatient (OUT) | payer MEDICARE, SELFPAY ==
--- OUTSIDE RECORDS SUMMARY | 2025-03-09 06:30 | XMS_ITS ---
Author Organization [facility] in [place] Address [address] [place] [address] Care Team Providers Care Forklift Wheel Loader Name Role Phone Regino Rizvi Primary Care Provider [phone] Allergies Allergen (clinical drug ingredient) Drug/Non Drug [...] y Once a day Active Fish Oil Quanah-3 1000 MG 1 capsule Orall y Once [...] Answer Notes Tobacco use: Nonsmoker Vital Signs Weight 135.2 lbs 03/09/2025 Height 57 in 03/09/2025 Blood pressure systolic 134 mm Hg 03/09/20 25 Blood pressure diastolic 52 mm Hg 025 BMI 29.25 kg/m2 03/09/2025 Procedures Procedure Date Ordered Date Performed Result Body Sit e EAR IRRIGATION - performed 03/09/2025 N/A Encounters Encounter Location Date Provider Diagnosis [facility] [address] [place] [address] 03/09/2025 Regino Rizvi Diastolic heart fail ure [...] Name:Regino Crawford Dmitri, 11:00:00 AM, [address] [place], [address], Procedure Notes * Category Sub-Category Detail Notes ear irrigation Rt ear Ear irrigated wi th warm water, cerumen cleared from ear canal. Progress Notes * Inez JUAREZDOB:1940 (84 yo F)Acc No.[id number]:03/09/2025 Progress Note Patient: Inez SHARPE Provider: Melvin Rizvi ([facility])MD :1940 A ge:84 Y S ex:Female Date:03/09/2025 Address:[address] [place] [address] , [id number] Check In:10:20 AM ESTCheck O ut:11:14 AM [...] Tablet 1 tablet Orally BID Fish Oil Quanah-3(Quanah-3 Fatty Acids) 1000 MG Capsule 1 capsule [...] 1 tablet Orally BID Taking Fish Oil Quanah-3(Quanah-3 Fatty Acids) 1000 MG Capsule 1 capsule [...] (Check Out) true * Provider: Melvin Rizvi ([facility])MD Date: 0 03/09/2025 Generated for Minda olivares/Roland/eTransmitting on: 0 05/06/2025 01:55 PM EDT History and Physical Notes * [...]
--- OUTSIDE RECORDS SUMMARY | 2025-04-01 10:23 | XMS_ITS ---
Author Organization [facility] [place] Address [address] [place] [address] Care Team Providers Care Maintenance Analyst Name Role Phone Regino Rizvi Primary Care Provider [phone] REASON FOR VISIT critical la Medications Medication SIG (Take, Route, Fr equency, Duration) Notes Start Date End Date Status Entresto 24-26 MG 1 tablet Orally Twic e a day for 30 day(s) 04/02/2025 Active Encounters Encounter Location Date Provider Diagnosis [facility] [address] [place] [address] 04/01/2025 Regino Rizvi Plan Of Treatment Medication Medication Name Sig Start Date Stop Date Notes Entresto 24-26 MG 1 tablet Orally Twic e a day for 30 day(s) 04/02/2025 Next Appt Details Provider Name:Regino Crawford Magdielchristine, 11:00:00 AM, [address] [place], [address], Progress Notes * Inez JUAREZDOB:1940 (84 yo F)Acc No.[id number]:04/01/2025 Patient: Sybil Inez JUAREZ :1940 A ge:84 Y S ex:Female Address:[facility] [place] [address] * Refills Start Entresto Tablet, 24-26 MG, Orally, 60, 1 tablet, Twice a day, 30 day(s) Subjective: * Chief Complaints: * C ritical la * Medical History: * Surgical History: * Hospitalization/Major Diagno stic Procedure: * Medications: Objective: * Vitals: * Physical Examination: Assessment: Plan: * Treatment: * Procedure Codes: * true * Date: Generated for Minda Burgos/Piter on: 0 05/06/2025 01:56 PM EDT
--- OUTSIDE RECORDS SUMMARY | 2025-04-13 11:57 | XMS_ITS ---
Author Organization The [facility] in [place] Address [address] [place] [address] Care Team Providers Care Real Estate Recruiter Name Role Phone Regino Rizvi Primary Care Provider REASON FOR VISIT Refill Citalopram Medications Medication SIG (Take, Route, Frequency, Duration) Notes Start Date End Date Status Citalopram Hydrobromide 40 MG 1 tablet Orally Once a day for 90 days Active Encounters Encounter Location Date Provider Diagnosis [facility] [address] [place] [address] 04/13/2025 Regino Rizvi Plan Of Treatment Medication Medication Name Sig Start Date Stop Date Notes Citalopram Hydrobromide 40 MG 1 tablet O rally Once a day for 90 days Next Appt Details Provider Name:Regino Rizvi, 11:00:00 AM, [address] [place], [address], Progress Notes * Inez JUAREZDOB:1940 (84 yo F)Acc No.[id number]:04/13/2025 Patient: Sybil Inez JUAREZ :1940 A ge:84 Y S ex:Female Address:[facility] [place] [place] [address] * Refills Refill Citalopram Hydrobromide Tablet, 40 MG, Orally, 90 Tablet, 1 tablet, Once a day, 90 days, Refills=2 * true * Date: Generated for Printi ng/Faxing/eTransmitting on: 0 05/06/2025 01:55 PM EDT
--- OUTSIDE RECORDS SUMMARY | 2025-05-06 13:56 | XMS_ITS | Patient Health Record ---
Author Organization [facility] in [place] Address [address] [place] [address] Care Team Providers Care Lockstitcher Name Role Phone Regino Tierney Primary Care Provider [phone] BRUCE TIERNEY Unavailable [phone] Allergies Allergen (clinical drug ingredient) Drug/Non Drug Allergy documented on EMR Reaction Allergy Type Onset Date Status atorvastatin Atorvastatin Calcium Unknown Drug Allergy Active Results Component Value Reference Range Notes Prothrombin Time INR Reviewed date:06/08/2024 08:54:36 PM Interpretation: Performing Lab: Notes/Report: [facility] , Prothrombin Time 15.6 9.0-11.6 sec INR 1.54 DESIRED INR: 2.0-3.0 CONDITIONS NOT LISTED BELOW 2.5-3.5 FOR PROSTHETIC HEART VALVE REPLACEMENT 2.5-3.5 RECURRENT THROMBOSIS Performing Lab: see note ML - [facility] XR DEXA axial skeleton Reviewed date:06/23/2024 09:22:26 PM Interpretation: Performing Lab: Notes/Report: Source Facility: [place] [address] [place] [address] XRay Report Signed Patient: INEZ JUAREZ MR#: [id number] : 1940 Acct:[id number] Age/Sex: 84 / F ADM Date: 06/22/24 Loc: RAD Attending Dr: Bruce Tierney M.D. Ordering Physician: Bruce Tierney M.D. Date of Service: 06/22/24 Procedure(s): XR DEXA axial skeleton Accession Number(s): [id number] cc: Bruce Tierney M.D. [address] [address] Patient Name: INEZ JUAREZ MRN: [facility]:[id number] date: 1940 Sex: F Assigned Patient Location: [facility] Current Patient Location: Accession/Order Number: [id number] Exam Date: 06/22/2024 11:58 Report Date: 06/23/2024 [...] prevention and treatment of osteoporosis. Osteoporos Int. 2021;3310):4917-2454. doi: 10.1007/b74747-914-67724-d. Epub 2021Mar 08. Erratum in: Osteoporos Int. 2021Jun 07;: PMID: [id number]; PMCID: [id number]. Electronically authenticated by: BHAVIK TRACEY Date: 06/23/2024 06:41 Dictated By: Bhavik Tracey M.D. Signed By: 06/23/2443 DD/ 0 TD/TT: Scheduling Analyst: [place] [address] XRay Report Signed Patient: LILIA JUAREZ MR#: [id number] : 1940 Acct:[id number] Age/Sex: 84 / F ADM Date: 06/22/24 Loc: ESTHER Attending Dr: Merry Tierney M.D. Ordering Physician: Bruce Tierney M.D. Date of Service: 06/22/24 Procedure(s): XR DEX A axial skeleton Accession Number(s): [id number] cc: Bruce Tierney M.D. [place] [id number] Patient Name: INEZ JUAREZ MRN: [facility]:[id number] date: 1940 Sex: F Assigned Patient Location: [facility] Current Patient Location: Accession/Order Numb er: [id number] Exam Date: 06/22/2024 11:58 Report Date: 06/23/2024 [...] R/XR DEXA axial skeleton IMPRESSION: World Health Organization [...] prevention and treatment of osteoporosis. Osteoporos Int. 2021;33(10):8429-5946. doi: 10.1007/j59621-636-60698 -y. Epub 2021Mar 08. Erratum in: Osteoporos Int. 2021Jun 07;: PMID: [id number]; PMCID: [id number]. Electronically authenticated by: BHAVIK TRACEY Date: 06/23/2024 06:41 Dictated By: Bhavik Tracey M.D. Signed By: 06/23/2443 DD/ 0 TD/TT: Scheduling Analyst: Prothrombin Time INR Reviewed date:07/14/2024 09:00:49 PM Interpretation: Performing Lab: Notes/Report: [facility] , Prothrombin Time 19.8 9.0-11.6 sec INR 2.00 DESIRED INR: 2.0-3.0 CONDITIONS NOT LISTED BELOW 2.5-3.5 FOR PROSTHETIC HEART VALVE REPLACEMENT 2.5-3.5 RECURRENT THROMBOSIS Performing Lab: see note ML - [facility] Prothrombin Time INR Reviewed date:09/03/2024 07:52:19 PM Interpretation: Performing Lab: Notes/Report: [facility] , Prothrombin Time 16.2 9.0-11.6 sec INR 1.60 DESIRED INR: 2.0-3.0 CONDITIONS NOT LISTED BELOW 2.5-3.5 FOR PROSTHETIC HEART VALVE REPLACEMENT 2.5-3.5 RECURRENT THROMBOSIS Performing Lab: see note ML - [facility] Prothrombin Time INR Reviewed date:11/09/2024 08:40:25 PM Interpretation: Performing Lab: Notes/Report: [facility] , Prothrombin Time 27.7 9.0-11.6 sec INR 2.90 DESIRED INR: 2.0-3.0 CONDITIONS NOT LISTED BELOW 2.5-3.5 FOR PROSTHETIC HEART VALVE REPLACEMENT 2.5-3.5 RECURRENT THROMBOSIS Performing Lab: see note ML - [facility] CBC AUTO DIFF Reviewed date:04/01/2025 08:37:50 PM Interpretation: Performing Lab: Notes/Report: [facility] , White Blood Count 5.6 4.0-11.0 10 3/uL Red Blood Count 4.09 4.20-5.40 10 6/uL Hemoglobin 10.9 12.0-16.0 g/dL Hematocrit 35.1 36.0-48.0 % Mean Corpuscular Volume 85.8 81.0-99.0 fL Mean Corpuscular Hemoglobin 26.7 26.7-34.0 pg Mean Corpuscular HGB Conc 31.1 29.9-35.2 g/dL Red Cell Distribution Width 17.3 11.0-15.0 % Platelet Count 190 150-450 10 3/uL Mean Platelet Volume 8.3 9.5-13.5 fL Neutrophils Percent Auto 63.1 43.0-75.0 % Lymphocytes Percent Auto 19.7 20.5-60.0 % Monocytes Percent Auto 9.4 1.7-12.0 % Eosinophils Percent Auto 6.9 0.9-7.0 % Basophils Percent Auto 0.7 0.2-2.0 % Immature Granulocytes Pct Auto 0.2 0.0-0.5 % Neutrophils Absolute Auto 3.6 1.4-6.5 10 3/uL Lymphocytes Absolute Auto 1.1 1.2-3.8 10 3/uL Monocytes Absolute Auto 0.5 0.3-0.8 10 3/uL Eosinophils Absolute Auto 0.4 0.0-0.7 10 3/uL Basophils Absolute Auto 0.0 0.0-0.1 10 3/uL Immature Granulocytes Abs Auto 0.01 0.00-0.03 10 3/uL Performing Lab: see note ML - [facility] IRON Reviewed date:04/01/2025 08:37:50 PM Interpretation: Performing Lab: Notes/Report: [facility] , Iron 32.0 50.0-170.0 ug/dL Performing Lab: see note ML - [facility] VITAMIN D 25 [place] Reviewed date:04/01/2025 08:37:50 PM Interpretation: Performing Lab: Notes/Report: [facility] , Vitamin D 55.4 <20 ng/mL Vit D deficient 20-<30 ng/mL Vit D insufficient 30-100 ng/mL Vit D sufficient >100 ng/mL Potential Toxicity Performing Lab: see note ML - The [facility] LB Prothrombin Time INR Reviewed date:04/01/2025 08:37:50 PM Interpretation: Performing Lab: Notes/Report: [facility] , Prothrombin Time 21.5 9.0-11.6 sec INR 2.19 DESIRED INR: 2.0-3.0 CONDITIONS NOT LISTED BELOW 2.5-3.5 FOR PROSTHETIC HEART VALVE REPLACEMENT 2.5-3.5 RECURRENT THROMBOSIS Performing Lab: see note ML - [facility] TSH Reviewed date:04/01/2025 08:37:50 PM Interpretation: Performing Lab: Notes/Report: [facility] , Thyroid Stimulating Hormone 3.807 0.358-3.740 uIU/mL Performing Lab: see note ML - [facility] T4 Reviewed date:04/01/2025 08:37:50 PM Interpretation: Performing Lab: Notes/Report: [facility] , T4 Thyroxine 5.80 4.80-13.90 ug/dL Performing Lab: see note ML - [facility] PROF 14(COMP METB) Reviewed date:04/01/2025 08:37:50 PM Interpretation: Performing Lab: Notes/Report: [facility] , Sodium 142 136-145 mmol/L Potassium 4.0 3.5-5.1 mmol/L Chloride 105 98-107 mmol/L Carbon Dioxide 30.1 21.0-32.0 mmol/L Anion Gap 10.9 Glucose 97 74-106 mg/dL Blood Urea Nitrogen 41.0 7.0-18.0 mg/dL Creatinine 2.21 0.55-1.02 mg/dL Estimated GFR ( Oralia 26 >=60 mL/min/1.73m 2 Estimated GFR (Non- Caitlyn 21 >=60 mL/min/1.73m 2 BUN Creatinine Ratio 18.6 Calcium 8.6 8.5-10.1 mg/dL Bilirubin Total 0.4 0.2-1.0 mg/dL Aspartate Amino Transferase 14 15-37 U/L Alanine Aminotransferase 16 14-59 U/L Alkaline Phosphatase 82 46-116 U/L Total Protein 7.5 6.4-8.2 g/dL Albumin Level 3.4 3.4-5.0 g/dL Globulin 4.1 Albumin Globulin Ratio 0.8 Performing Lab: see note ML - [facility] LIPID PROFILE Reviewed date:04/01/2025 08:37:50 PM Interpretation: Performing Lab: Notes/Report: [facility] , Triglycerides 97 <=150 mg/dL Cholesterol 187 <=200 mg/dL HDL Cholesterol 55 40-60 mg/dL > or =60 mg/dl - LOW CARDIOVASCULAR RISK <40 mg/dl - HIGH CARDIOVASCULAR RISK LDL Cholesterol Calculated 112.6 <100 mg/dl OPTIMAL 100-129 mg/dl NEAR OR ABOVE OPTIMAL 130-159 mg/dl BORDERLINE HIGH 160-189 mg/dl HIGH >190 mg/dl VERY HIGH VLDL CHOLESTEROL 19.4 Chol HDL Ratio 3.4 3.3 - 4.4 LOW RISK 4.4 - 7.1 AVERAGE RISK 7.1 - 11.0 MODERATE RISK >11.0 HIGH RISK Performing Lab: see note ML - [facility] GLYCOHEMOGLOBIN A1C Reviewed date:04/01/2025 08:37:50 PM Interpretation: Performing Lab: Notes/Report: [facility] , Glycohemoglobin A1C 5.6 4.5-6.2 % ADA RECOMMENDED LIMIT 4.0 - 6.0 ADA THERAPEUTIC TARGET < 7.0 ACTION SUGGESTED > 7.0 Estimated Average Glucose 114 Performing Lab: see note ML - [facility] FREE T3 Reviewed date:04/01/2025 08:37:50 PM Interpretation: Performing Lab: Notes/Report: The [facility] Free T3 2.64 2.18-3.98 pg/mL Performing Lab: see note ML - [facility] BNP Reviewed date:04/01/2025 08:37:50 PM Interpretation: Performing Lab: Notes/Report: [facility] , NT Pro B Type Natriuretic Pept 2255.0 <=1800.0 pg/mL RESULTS CALLED TO codey long lpn Performing Lab: see note ML - [facility] Prothrombin Time INR Reviewed date:02/17/2025 01:09:11 PM Interpretation: Performing Lab: Notes/Report: [facility] , Prothrombin Time 18.8 9.0-11.6 sec INR 1.89 DESIRED INR: 2.0-3.0 CONDITIONS NOT LISTED BELOW 2.5-3.5 FOR PROSTHETIC HEART VALVE REPLACEMENT 2.5-3.5 RECURRENT THROMBOSIS Performing Lab: see note ML - [facility] Prothrombin Time INR Reviewed date:02/14/2025 04:04:25 PM Interpretation: Performing Lab: Notes/Report: [facility] , Prothrombin Time 41.0 9.0-11.6 sec RESULTS GEORGE LED TO DR. TIERNEY INR 4.[address] TIERNEY DESIRED INR: 2.0-3.0 CONDITIONS NOT LISTED BELOW 2.5-3.5 FOR PROSTHETIC HEART VALVE REPLACEMENT 2.5-3.5 RECURRENT THROMBOSIS Performing Lab: see note ML - [facility] Prothrombin Time INR Reviewed date:02/04/2025 09:05:01 PM Interpretation: Performing Lab: Notes/Report: [facility] , Prothrombin Time 32.9 9.0-11.6 sec INR 3.52 DESIRED INR: 2.0-3.0 CONDITIONS NOT LISTED BELOW 2.5-3.5 FOR PROSTHETIC HEART VALVE REPLACEMENT 2.5-3.5 RECURRENT THROMBOSIS Performing Lab: see note ML - [facility] Prothrombin Time INR Reviewed date:01/08/2025 01:04:10 PM Interpretation: Performing Lab: Notes/Report: [facility] , Prothrombin Time 33.7 9.0-11.6 sec INR 3.61 DESIRED INR: 2.0-3.0 CONDITIONS NOT LISTED BELOW 2.5-3.5 FOR PROSTHETIC HEART VALVE REPLACEMENT 2.5-3.5 RECURRENT THROMBOSIS Performing Lab: see note ML - [facility] Prothrombin Time INR Reviewed date:12/10/2024 10:12:40 PM Interpretation: Performing Lab: Notes/Report: [facility] , Prothrombin Time 30.3 9.0-11.6 sec INR 3.21 DESIRED INR: 2.0-3.0 CONDITIONS NOT LISTED BELOW 2.5-3.5 FOR PROSTHETIC HEART VALVE REPLACEMENT 2.5-3.5 RECURRENT THROMBOSIS Performing Lab: see note - [facility] Prothrombin Time INR Reviewed date:10/06/2024 06:10:24 PM Interpretation: Performing Lab: Notes/Report: [facility] , Prothrombin Time 23.0 9.0-11.6 sec INR 2.36 DESIRED INR: 2.0-3.0 CONDITIONS NOT LISTED BELOW 2.5-3.5 FOR PROSTHETIC HEART VALVE REPLACEMENT 2.5-3.5 RECURRENT THROMBOSIS Performing Lab: see note - [facility] Prothrombin Time INR Reviewed date:08/10/2024 06:52:00 PM Interpretation: Performing Lab: Notes/Report: [facility] , Prothrombin Time 14.7 9.0-11.6 sec INR 1.44 DESIRED INR: 2.0-3.0 CONDITIONS NOT LISTED BELOW 2.5-3.5 FOR PROSTHETIC HEART VALVE REPLACEMENT 2.5-3.5 RECURRENT THROMBOSIS Performing Lab: see note ML - The [facility] LB CA echo doppler complete Reviewed date:06/09/2024 07:35:22 PM Interpretation: Performing Lab: Notes/Report: Source Facility: [facility]-[address] [place] [address] [place] [address] Cardiology Report Signed Patient: INEZ JUAREZ MR#: [id number] : 1940 Acct:[id number] Age/Sex: 84 / F ADM Date: 06/08/24 Loc: CARD Attending Dr: JENN PRADO Ordering Physician: JENN PRADO Date of Service: 06/08/24 Procedure(s): CA echo doppler complete Accession Number(s): [id number] cc: Bruce Tierney M.D.; JENN PRADO Patient Name: INEZ JUAREZ MR#: [id number] : 1940 Exam Date: 06/08/2024 Ordering Doctor: [...] Signed By: 06/09/24 1348 DD/ 1346 TD/TT: Scheduling Analyst: [place] [address] Cardiology Report Signed Patient: LILIA JUAREZ MR#: [id number] : 1940 Acct:[id number] Age/Sex: 84 / F ADM Date: 06/08/24 Loc: CARD Attending Dr: JENN PRADO Ordering Physician: JENN PRADO Date of Service: 06/08/24 Procedure(s): CA ech o doppler complete Accession Number(s): [id number] cc: Bruce Tierney M.D. ; JENN PRADO Patient Name: INEZ JUAREZ MR#: [id number] : 1940 Exam Date: 06/08/2024 Ordering Doctor: [...] Decreased right ventricular systolic function. TRICUSPID VALVE: Nor mal mobility and thickness. Mild regurgitation. Moderate pulmonary [...] Gradient: 4 .12 mm[Hg] LVOT Area (cm2): 1.0 2 m/s Peak Velocity (LVOT) : 1.02 m/s [...] Signed By: 06/09/24 1348 DD/ 1346 TD/TT: Scheduling Analyst: Prothrombin Time INR Reviewed date:05/07/2024 10:06:19 PM Interpretation: Performing Lab: Notes/Report: [facility] , Prothrombin Time 15.0 9.0-11.6 sec INR 1.47 DESIRED INR: 2.0-3.0 CONDITIONS NOT LISTED BELOW 2.5-3.5 FOR PROSTHETIC HEART VALVE REPLACEMENT 2.5-3.5 RECURRENT THROMBOSIS Performing Lab: see note ML - [facility] Reason For Referral No Information Medications Medication SIG (Take, Route, Frequency, Duration) Notes Start Date End Date Status [facility] Iron 325 (65 Fe) MG 1 tablet Orally BID Active Xanax 0.25 MG 1 tablet Orally Twic e a day for 30 days F41.9 02/02/2025 Active Warfarin Sodium 5 MG 1 tablet Orally Onc e daily for 90 days Active Entresto 24-26 MG 1 tablet Orally Twic e a day for 30 day(s) 04/02/2025 Active Aspirin 81 81 MG 1 tablet Orally Once a day Active amLODIPine Besylate 10 MG 1 tablet Orall y Once a day Active Vitamin D3 50 MCG (1999) 1 capsule Or ally Once a day for 90 days 02/28/2023 Active Allopurinol 100 MG take 1 tablet by once daily for 30 Active Sildenafil Citrate 20 MG 1 tablet Orally three times daily Active Citalopram Hydrobromide 40 MG 1 tablet Orally Once a day for 90 days Active Pravastatin Sodium 20 MG TAKE 1 [...] and 40mg at bedtime Active Fish Oil Crane-3 1000 MG 1 capsule Orall y Once [...] Problem Status W/U Status Risk Notes Problem 50949848 Essential (primary) hypertension (I10) Active confirmed Problem 461982513 Cardiomegaly (I51.7) Active confirmed Problem 5199442 Other ill-define d heart diseases (I51.89) Active confirmed Problem 244954586 Abnormal result of cardiovascular function study, unspecified (R94.30) Active confirmed Problem Fatigue (72879322) Fatigue (R53.83) Active confirmed Problem Senile osteoporosis (26938849) 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) Active confirmed Problem Hyperlipidemia (28315913) Hyperlipidemia (E78.5) Active confirmed Problem Mitral regurgitation (41016892) Mitral regurgitation (I34.0) Active confirmed Problem Bradycardia (55987030) Bradycardia, sinus (R00.1) Active confirmed Problem Tricuspid regurgitation (927706106) Tricuspid regurgitation (I07.1) Active confirmed Problem Aortic valve disorder (5351551) Aortic stenosis (I35.0) Active confirmed Problem Left ventricular hypertrophy (50862881) Left ventricular hypertrophy (I51.7) Active confirmed Problem Diastolic heart failure (980924461) Diastolic heart failure (I50.30) Active confirmed Problem Gout (86258795) Gout (M10.9) Active confirmed Problem Hiatal hernia (48825146) Hiatal hernia (K44.9) Active confirmed Problem Ankle pain (754719321) Ankle pain (M25.579) Active confirmed Problem Chronic diastolic heart failure (519637427) Chronic diastolic (congestive) heart failure (I50.32) Active confirmed Problem Glaucoma (07517523) Glaucoma (H40.9) Active confirmed Problem Polyp of colon (disorder) (12980067) Colon polyps (K63.5) Active confirmed Problem Overweight (325355568) Over weight (E66.3) Active confirmed Problem Iron deficiency anemia (31889579) Anemia, iron deficiency (D50.9) Active confirmed Problem Recurrent falls (468643375) Recurrent falls (R29.6) Active confirmed Problem Ankle edema (54849668) Ankle edema (R60.0) Active confirmed Problem Diverticular disease (110197357) Diverticular disease (K57.90) Active confirmed Problem Fibrocystic breast changes (09063135) Fibrocystic breast disease (N60.19) Active confirmed Problem Gastro-esophageal reflux disease (799502486) Gastro-esophageal reflux disease (K21.9) Active confirmed Problem At risk for falls (136371798) At risk for falls (Z91.81) Active confirmed Problem Cardiomegaly (2897604) Atrial enlargement, left (I51.7) Active confirmed Problem Generalized anxiety disorder (67974616) Anxiety neurosis (F41.1) Active confirmed Problem Long-term current use of anticoagulant (546554575) Current use of anticoagulant therapy (Z79.01) Active confirmed Problem History of macrocytic anemia (Z86.2) Active confirmed Problem Pulmonary hypertension (49408398) Pulmonary hypertension (I27.20) Active confirmed Problem 18391581 Pulmonary hypertension, unspecified (I27.20) Active confirmed Problem Chronic atrial fibrillation (930613908) Chronic atrial fibrillation (I48.20) Active confirmed Problem 523912572 Longstanding persistent atrial fibrillation (I48.11) Active confirmed Problem Chronic kidney disease stage 3 (disorder) (120132850) Chronic kidney disease, stage 3 unspecified (N18.30) Active confirmed Problem 482373562 Chronic kidney disease, stage 3b (N18.32) Active confirmed Problem Cardiomegaly (1845599) Atrial enlargement, right (I51.7) Active confirmed Problem Pericardial effusion (232885537) Pericardial effusion (I31.39) Active confirmed Vital Signs Blood pressure diastolic 52 mm Hg 03/09/2025 Height 57 in 03/09/2025 Blood pressure systolic 134 mm Hg 03/09/2025 Weight 135.2 lbs 03/09/2025 BMI 29.25 kg/m2 03/09/2025 Procedures Procedure Date Ordered Date Performed Result Body Sit e EAR IRRIGATION - performed 03/09/2025 N/A Encounters Encounter Location Date Provider Diagnosis [facility] [address] [place] [address] 04/01/2025 Regino christine [facility] [address] [place] [address] 04/13/2025 Regino christine [facility] [address] [place] [address] 01/08/2025 Regino [facility] [address] [place] [address] 02/02/2025 Regino Tierney Diastolic heart fail ure I50.30 [facility] [address] [place] [address] 02/04/2025 Regino Tierney [facility] [address] [place] [address] 02/14/2025 Regino Tierney [facility] [address] [place] [address] 02/15/2025 Regino Tierney [facility] [address] [place] [address] 02/17/2025 Regino Tierney [facility] [address] [place] [address] 09/03/2024 Regino Tierney [facility] [address] [place] [address] 09/08/2024 Regino Tierney [facility] [address] [place] [address] 10/06/2024 Regino Tierney [facility] [address] [place] [address] 11/09/2024 Regino Tierney [facility] [address] [place] [address] 12/10/2024 Regino Tierney Aortic stenosis I35. 0 and Longstanding persistent atrial fibrillation I48.11 [facility] [address] [place] [address] 12/10/2024 Regino Tierney [facility] [address] [place] [address] 06/03/2024 Regino Tierney Senile osteoporosis M81.0 [facility] [address] [place] [address] 06/08/2024 Regino Tierney [facility] [address] [place] [address] 06/18/2024 Regino Tierney Hyperlipidemia E78.5 [facility] [address] [place] [address] 06/23/2024 Regino Tierney [facility] [address] [place] [address] 07/14/2024 Regino Tierney [facility] [address] [place] [address] 08/10/2024 Regino Tierney [facility] [address] [place] [address] 05/07/2024 BRUCE TIERNEY [facility] [address] [place] [address] 08/28/2024 Regino Tierney Hyperlipidemia E78.5 ; Diastolic heart failure I50.30 ; Pulmonary hypertension I27.20 and Essential (primary) hypertension I10 [facility] [address] [place] [address] 03/09/2025 Regino Tierney Diastolic heart fail ure [...] Name Order Date CMP (COMPLETE METABOLIC PANEL) 4 HEMOGLOBIN A1C (GLYCO) 02/27/2024 HEMOGLOBIN A1C (GLYCO) [...] Provider Name:Regino Tierney, 11:00:00 AM, [address] [place], [address], Insurance Providers Payer Name Payer Address Payer Phone Subscriber Number Group Number Insured Name Patient Relationship to Insured Coverage Start Date Coverage End Date [facility] [employer] [address] [address] [place] [address] [id number] Inez Juarez Self - patient is the [...] Diverticular disease K57.90 Surgical History Surgery Date(Month/Year) [facility] Heart Cath- Dr. Price 10/22/2023 Bilateral Foot surgery Eye surgery
[2025-05-06 15:09] LABS: INR 2.48
== END 2025-05-06 13:52 | disposition home or self-care (01) ==
LOC: LAB 13:53
PROVIDERS: PCP Family Medicine; Visit Provider Family Medicine
DX: I35.0 Nonrheumatic aortic (valve) stenosis (principal)
CPT/HCPCS: 36415; 85610

== ENCOUNTER 2025-06-09 12:37 | Outpatient (OUT) | payer MEDICARE, SELFPAY ==
--- OUTSIDE RECORDS SUMMARY | 2025-04-01 10:23 | XMS_ITS ---
Author Organization [facility] [place] Address [address] [place] [address] Care Team Providers Care Plastic Process Technician Name Role Phone Regino Rizvi Primary Care Provider [phone] REASON FOR VISIT critical la Medications Medication SIG (Take, Route, Fr equency, Duration) Notes Start Date End Date Status Entresto 24-26 MG 1 tablet Orally Twic e a day for 30 day(s) 04/02/2025 Active Encounters Encounter Location Date Provider Diagnosis [facility] [address] [place] [address] 04/01/2025 Regino Rizvi Plan Of Treatment Medication Medication Name Sig Start Date Stop Date Notes Entresto 24-26 MG 1 tablet Orally Twic e a day for 30 day(s) 04/02/2025 Next Appt Details Provider Name:Regino Crawford Magdielchristine, 11:00:00 AM, [address] [place], [address], Progress Notes * Inez JUAREZDOB:1940 (84 yo F)Acc No.[id number]:04/01/2025 Patient: Sybil Inez JUAREZ :1940 A ge:84 Y S ex:Female Address:[facility] [place] [address] * Refills Start Entresto Tablet, 24-26 MG, Orally, 60, 1 tablet, Twice a day, 30 day(s) Subjective: * Chief Complaints: * C ritical la * Medical History: * Surgical History: * Hospitalization/Major Diagno stic Procedure: * Medications: Objective: * Vitals: * Physical Examination: Assessment: Plan: * Treatment: * Procedure Codes: * true * Date: Generated for Minda olivares/Roland/Piter on: 0 06/09/2025 12:38 PM EDT
--- OUTSIDE RECORDS SUMMARY | 2025-05-06 15:26 | XMS_ITS ---
Author Organization [facility] [place] Address [address] [place] [address] Care Team Providers Care Vision Teacher Name Role Phone Regino Rizvi Primary Care Provider [phone] REASON FOR VISIT INR Results- Encounters Encounter Location Date Provider Diagnosis [facility] [address] [place] [address] 05/06/2025 Regino Rizvi Plan Of Treatment Next Appt Details Provider Name:Regino Rizvi, 11:00:00 AM, [address] [place], [address], Progress Notes * Inez JUAREZDOB:1940 (84 yo F)Acc No.[id number]:05/06/2025 Patient: Sybil Inez JUAREZ :1940 A ge:84 Y S ex:Female Address:[place] [address] * true * Date: Generated for Printi ng/Faxing/eTransmitting on: 0 06/09/2025 12:39 PM EDT
--- OUTSIDE RECORDS SUMMARY | 2025-06-09 12:39 | XMS_ITS | Patient Health Record ---
Author Organization [facility] [place] Address [address] [place] [address] Care Team Providers Care Home Energy Consultant Name Role Phone Regino Tierney Primary Care Provider [phone] Allergies Allergen (clinical drug ingredient) Drug/Non Drug Allergy documented on EMR Reaction Allergy Type Onset Date Status atorvastatin Atorvastatin Calcium Unknown Drug Allergy Active Results Component Value Reference Range Notes Prothrombin Time INR Reviewed date:07/14/2024 09:00:49 PM Interpretation: Performing Lab: Notes/Report: [facility] , Prothrombin Time 19.8 9.0-11.6 sec INR 2.00 2.0-3.0 CONDITIONS NOT LISTED BELOW 2.5-3.5 RECURRENT THROMBOSIS DESIRED INR: 2.5-3.5 FOR PROSTHETIC HEART VALVE REPLACEMENT Performing Lab: see note - [facility] LB Prothrombin Time INR Reviewed date:11/09/2024 08:40:25 PM Interpretation: Performing Lab: Notes/Report: [facility] , Prothrombin Time 27.7 9.0-11.6 sec INR 2.90 DESIRED INR: 2.5-3.5 RECURRENT THROMBOSIS 2.0-3.0 CONDITIONS NOT LISTED BELOW 2.5-3.5 FOR PROSTHETIC HEART VALVE REPLACEMENT Performing Lab: see note - [facility] LB Prothrombin Time INR Reviewed date:02/04/2025 09:05:01 PM Interpretation: Performing Lab: Notes/Report: [facility] , Prothrombin Time 32.9 9.0-11.6 sec INR 3.52 2.0-3.0 CONDITIONS NOT LISTED BELOW 2.5-3.5 RECURRENT THROMBOSIS DESIRED INR: 2.5-3.5 FOR PROSTHETIC HEART VALVE REPLACEMENT Performing Lab: see note - [facility] LB CBC AUTO DIFF Reviewed date:04/01/2025 08:37:50 PM Interpretation: Performing Lab: Notes/Report: [facility] , White Blood Count 5.6 4.0-11.0 10 [...] 3/uL Performing Lab: see note ML - [facility] LB IRON Reviewed date:04/01/2025 08:37:50 PM Interpretation: Performing Lab: Notes/Report: [facility] , Iron 32.0 50.0-170.0 ug/dL Performing Lab: see note - [facility] LB VITAMIN D 25 [place] Reviewed date:04/01/2025 08:37:50 PM Interpretation: Performing Lab: Notes/Report: [facility] , Vitamin D 55.4 >100 ng/mL Potential Toxicity 20-<30 ng/mL Vit D insufficient <20 ng/mL Vit D deficient 30-100 ng/mL Vit D sufficient Performing Lab: see note ML - [facility] Prothrombin Time INR Reviewed date:04/01/2025 08:37:50 PM Interpretation: Performing Lab: Notes/Report: [facility] , Prothrombin Time 21.5 9.0-11.6 sec INR 2.19 2.0-3.0 CONDITIONS NOT LISTED BELOW DESIRED INR: 2.5-3.5 RECURRENT THROMBOSIS 2.5-3.5 FOR PROSTHETIC HEART VALVE REPLACEMENT Performing Lab: see note - [facility] Prothrombin Time INR Reviewed date:05/06/2025 07:26:51 PM Interpretation: Performing Lab: Notes/Report: [facility] , Prothrombin Time 24.0 9.0-11.6 sec INR 2.48 2.5-3.5 FOR PROSTHETIC HEART VALVE REPLACEMENT 2.5-3.5 RECURRENT THROMBOSIS 2.0-3.0 CONDITIONS NOT LISTED BELOW DESIRED INR: Performing Lab: see note - [facility] LB TSH Reviewed date:04/01/2025 08:37:50 PM Interpretation: Performing Lab: Notes/Report: [facility] , Thyroid Stimulating Hormone 3.807 0.358-3.740 uIU/mL Performing Lab: see note - [facility] T4 Reviewed date:04/01/2025 08:37:50 PM Interpretation: Performing Lab: Notes/Report: [facility] , T4 Thyroxine 5.80 4.80-13.90 ug/dL Performing Lab: see note [facility] LB PROF 14(COMP METB) Reviewed date:04/01/2025 08:37:50 PM Interpretation: Performing Lab: Notes/Report: [facility] , Sodium 142 136-145 mmol/L Potassium 4.0 [...] 0.8 Performing Lab: see note ML - [facility] LIPID PROFILE Reviewed date:04/01/2025 08:37:50 PM Interpretation: Performing Lab: Notes/Report: [facility] , Triglycerides 97 <=150 mg/dL Cholesterol 187 <=200 mg/dL HDL Cholesterol 55 40-60 mg/dL <40 mg/dl - HIGH CARDIOVASCULAR RISK > or =60 mg/dl - LOW CARDIOVASCULAR RISK LDL Cholesterol Calculated 112.6 <100 mg/dl OPTIMAL 160-189 mg/dl HIGH 130-159 mg/dl BORDERLINE HIGH >190 mg/dl VERY HIGH 100-129 mg/dl NEAR OR ABOVE OPTIMAL VLDL CHOLESTEROL 19.4 Chol HDL Ratio 3.4 3.3 - 4.4 LOW RISK 7.1 - 11.0 MODERATE RISK 4.4 - 7.1 AVERAGE RISK >11.0 HIGH RISK Performing Lab: see note ML - [facility] LB GLYCOHEMOGLOBIN A1C Reviewed date:04/01/2025 08:37:50 PM Interpretation: Performing Lab: Notes/Report: [facility] , Glycohemoglobin A1C 5.6 4.5-6.2 % ADA RECOMMENDED LIMIT 4.0 - 6.0 > 7.0 ACTION SUGGESTED ADA THERAPEUTIC TARGET < 7.0 Estimated Average Glucose 114 Performing Lab: see note ML - [facility] FREE T3 Reviewed date:04/01/2025 08:37:50 PM Interpretation: Performing Lab: Notes/Report: [facility] , Free T3 2.64 2.18-3.98 pg/mL Performing Lab: see note ML - [facility] LB BNP Reviewed date:04/01/2025 08:37:50 PM Interpretation: Performing Lab: Notes/Report: [facility] , NT Pro B Type Natriuretic Pept 2255.0 <=1800.0 pg/mL RESULTS CALLED TO codey long lpn Performing Lab: see note - [facility] Prothrombin Time INR Reviewed date:02/17/2025 01:09:11 PM Interpretation: Performing Lab: Notes/Report: [facility] , Prothrombin Time 18.8 9.0-11.6 sec INR 1.89 2.5-3.5 RECURRENT THROMBOSIS DESIRED INR: 2.0-3.0 CONDITIONS NOT LISTED BELOW 2.5-3.5 FOR PROSTHETIC HEART VALVE REPLACEMENT Performing Lab: see note - [facility] Prothrombin Time INR Reviewed date:02/14/2025 04:04:25 PM Interpretation: Performing Lab: Notes/Report: [facility] , Prothrombin Time 41.0 9.0-11.6 sec RESULTS GEORGE LED TO DR. TIERNEY INR 4.[address] TIERNEY 2.0-3.0 CONDITIONS NOT LISTED BELOW 2.5-3.5 RECURRENT THROMBOSIS DESIRED INR: 2.5-3.5 FOR PROSTHETIC HEART VALVE REPLACEMENT Performing Lab: see note - [facility] Prothrombin Time INR Reviewed date:01/08/2025 01:04:10 PM Interpretation: Performing Lab: Notes/Report: [facility] , Prothrombin Time 33.7 9.0-11.6 sec INR 3.61 2.5-3.5 RECURRENT THROMBOSIS 2.5-3.5 FOR PROSTHETIC HEART VALVE REPLACEMENT 2.0-3.0 CONDITIONS NOT LISTED BELOW DESIRED INR: Performing Lab: see note - [facility] Prothrombin Time INR Reviewed date:12/10/2024 10:12:40 PM Interpretation: Performing Lab: Notes/Report: [facility] , Prothrombin Time 30.3 9.0-11.6 sec INR 3.21 DESIRED INR: 2.5-3.5 RECURRENT THROMBOSIS 2.5-3.5 FOR PROSTHETIC HEART VALVE REPLACEMENT 2.0-3.0 CONDITIONS NOT LISTED BELOW Performing Lab: see note - [facility] Prothrombin Time INR Reviewed date:10/06/2024 06:10:24 PM Interpretation: Performing Lab: Notes/Report: [facility] , Prothrombin Time 23.0 9.0-11.6 sec INR 2.36 2.0-3.0 CONDITIONS NOT LISTED BELOW 2.5-3.5 RECURRENT THROMBOSIS DESIRED INR: 2.5-3.5 FOR PROSTHETIC HEART VALVE REPLACEMENT Performing Lab: see note - [facility] LB Prothrombin Time INR Reviewed date:09/03/2024 07:52:19 PM Interpretation: Performing Lab: Notes/Report: [facility] , Prothrombin Time 16.2 9.0-11.6 sec INR 1.60 2.5-3.5 RECURRENT THROMBOSIS DESIRED INR: 2.5-3.5 FOR PROSTHETIC HEART VALVE REPLACEMENT 2.0-3.0 CONDITIONS NOT LISTED BELOW Performing Lab: see note - [facility] LB Prothrombin Time INR Reviewed date:08/10/2024 06:52:00 PM Interpretation: Performing Lab: Notes/Report: [facility] , Prothrombin Time 14.7 9.0-11.6 sec INR 1.44 2.0-3.0 CONDITIONS NOT LISTED BELOW DESIRED INR: 2.5-3.5 RECURRENT THROMBOSIS 2.5-3.5 FOR PROSTHETIC HEART VALVE REPLACEMENT Performing Lab: see note - [facility] XR DEXA axial skeleton Reviewed date:06/23/2024 09:22:26 PM Interpretation: Performing Lab: Notes/Report: Source Facility: [place] [address] XRay Report Signed Patient: INEZ JUAREZ MR#: [id number] : 1940 Acct:[id number] Age/Sex: 84 / F ADM Date: 06/22/24 Loc: RAD Attending Dr: Bruce Tierney M.D. Ordering Physician: Bruce Tierney M.D. Date of Service: 06/22/24 Procedure(s): XR DEXA axial skeleton Accession Number(s): [id number] cc: Bruce Tierney M.D. [place] [id number] Patient Name: INEZ JUAREZ MRN: [id number] date: 1940 Sex: F Assigned Patient Location: RAD Current Patient Location: Accession/Order Number: [id number] Exam Date: 06/22/2024 11:58 Report Date: 06/23/2024 [...] prevention and treatment of osteoporosis. Osteoporos Int. 2021;33(10):9757-9201. doi: 10.1007/r11304-914-95538-q. Epub 2021Mar 08. Erratum in: Osteoporos Int. 2021Jun 07;: PMID: [id number]; PMCID: [id number]. Electronically authenticated by: BHAVIK TRACEY Date: 06/23/2024 06:41 Dictated By: Bhavik Tracey M.D. Signed By: 06/23/2443 DD/ 0 TD/TT: Privacy Manager: [place] [address] XRay Report Signed Patient: LILIA JUAREZ MR#: [id number] : 1940 Acct:[id number] Age/Sex: 84 / F ADM Date: 06/22/24 Loc: RAD Attending Dr: Merry Tierney M.D. Ordering Physician: Bruce Tierney M.D. Date of Service: 06/22/24 Procedure(s): XR DEX A axial skeleton Accession Number(s): [id number] cc: Bruce Tierney M.D. [place] [id number] Patient Name: INEZ JUAREZ MRN: [id number] date: 1940 Sex: F Assigned Patient Location: [facility] Current Patient Location: Accession/Order Numb er: [id number] Exam Date: 06/22/2024 11:58 Report Date: 06/23/2024 [...] prevention and treatment of osteoporosis. Osteoporos Int. 2021;33(10):8419-9170. doi: 10.1007/u09200-236-12128 -y. Epub 2021Mar 08. Erratum in: Osteoporos Int. 2021Jun 07;: PMID: [id number]; PMCID: [id number]. Electronically authenticated by: BHAVIK TRACEY Date: 06/23/2024 06:41 Dictated By: Bhavik Tracey M.D. Signed By: 06/23/2443 DD/ TD/TT: Privacy Manager: [facility] echo doppler complete Reviewed date:06/09/2024 07:35:22 PM Interpretation: Performing Lab: Notes/Report: Source Facility: [place] [address] [place] [address] Cardiology Report Signed Patient: INEZ JUAREZ MR#: [id number] : 1940 Acct:[id number] Age/Sex: 84 / F ADM Date: 06/08/24 Loc: CARD Attending Dr: JENN PRADO Ordering Physician: JENN PRADO Date of Service: 06/08/24 Procedure(s): CA echo doppler complete Accession Number(s): [id number] cc: Bruce Tierney M.D.; JENN PRADO Patient Name: INEZ JUAREZ MR#: [id number] : 1940 Exam Date: 06/08/2024 Ordering Doctor: [...] Signed By: 06/09/24 1348 DD/ 1346 TD/TT: Privacy Manager: [place] [address] Cardiology Report Signed Patient: LILIA JUAREZ MR#: [id number] : 1940 Acct:[id number] Age/Sex: 84 / F ADM Date: 06/08/24 Loc: CARD Attending Dr: JENN PRADO Ordering Physician: JENN PRADO Date of Service: 06/08/24 Procedure(s): CA ech o doppler complete Accession Number(s): [id number] cc: Bruce Tierney M.D. ; JENN PRADO Patient Name: INEZ JUAREZ MR#: [id number] : 1940 Exam Date: 06/08/2024 Ordering Doctor: [...] Signed By: 06/09/24 1348 DD/ 1346 TD/TT: Privacy Manager: Reason For Referral No Information Medications Medication SIG (Take, Route, Frequency, Duration) Notes Start Date End Date Status [facility] Iron 325 (65 Fe) MG 1 tablet Orally BID Active Xanax 0.25 MG 1 tablet Orally Twic e a day for 30 days F41.9 02/02/2025 Active Entresto 24-26 MG 1 tablet Orally Twic e a day for 30 day(s) 04/02/2025 Active Warfarin Sodium 5 MG 1 tablet Orally Onc e daily for 90 days Active Aspirin 81 81 MG 1 tablet Orally Once a day Active amLODIPine Besylate 10 MG 1 tablet Orall y Once a day Active Vitamin D3 50 MCG (1999 UT) 1 capsule Or ally Once a day for 90 days 02/28/2023 Active Allopurinol 100 MG take 1 tablet by meseret th once daily for 30 Active Sildenafil Citrate [...] and 40mg at bedtime Active Fish Oil [place]-3 1000 MG 1 capsule Orall y Once [...] Problem Status W/U Status Risk Notes Problem 85106940 Essential (primary) hypertension (I10) Active confirmed Problem 705029169 Cardiomegaly (I51.7) Active confirmed Problem 3288786 Other ill-define d heart diseases (I51.89) Active confirmed Problem 433154691 Abnormal result of cardiovascular function study, unspecified (R94.30) Active confirmed Problem Fatigue (32049815) Fatigue (R53.83) Active confirmed Problem Senile osteoporosis (46487078) 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) Active confirmed Problem Hyperlipidemia (26439293) Hyperlipidemia (E78.5) Active confirmed Problem Mitral regurgitation (67271591) Mitral regurgitation (I34.0) Active confirmed Problem Bradycardia (77055336) Bradycardia, sinus (R00.1) Active confirmed Problem Tricuspid regurgitation (389973168) Tricuspid regurgitation (I07.1) Active confirmed Problem Aortic valve disorder (9726175) Aortic stenosis (I35.0) Active confirmed Problem Left ventricular hypertrophy (15407370) Left ventricular hypertrophy (I51.7) Active confirmed Problem Diastolic heart failure (254884927) Diastolic heart failure (I50.30) Active confirmed Problem Gout (64607128) Gout (M10.9) Active confirmed Problem Hiatal hernia (22967210) Hiatal hernia (K44.9) Active confirmed Problem Ankle pain (138176951) Ankle pain (M25.579) Active confirmed Problem Chronic diastolic heart failure (808270624) Chronic diastolic (congestive) heart failure (I50.32) Active confirmed Problem Glaucoma (39042304) Glaucoma (H40.9) Active confirmed Problem Polyp of colon (disorder) (43163172) Colon polyps (K63.5) Active confirmed Problem Overweight (394015297) Over weight (E66.3) Active confirmed Problem Iron deficiency anemia (70683722) Anemia, iron deficiency (D50.9) Active confirmed Problem Recurrent falls (941973260) Recurrent falls (R29.6) Active confirmed Problem Ankle edema (39911948) Ankle edema (R60.0) Active confirmed Problem Diverticular disease (465248027) Diverticular disease (K57.90) Active confirmed Problem Fibrocystic breast changes (88080947) Fibrocystic breast disease (N60.19) Active confirmed Problem Gastro-esophageal reflux disease (830742438) Gastro-esophageal reflux disease (K21.9) Active confirmed Problem At risk for falls (557865441) At risk for falls (Z91.81) Active confirmed Problem Cardiomegaly (6824190) Atrial enlargement, left (I51.7) Active confirmed Problem Generalized anxiety disorder (47190376) Anxiety neurosis (F41.1) Active confirmed Problem Long-term current use of anticoagulant (735066567) Current use of anticoagulant therapy (Z79.01) Active confirmed Problem History of macrocytic anemia (Z86.2) Active confirmed Problem Pulmonary hypertension (17944959) Pulmonary hypertension (I27.20) Active confirmed Problem 45769305 Pulmonary hypertension, unspecified (I27.20) Active confirmed Problem Chronic atrial fibrillation (955940517) Chronic atrial fibrillation (I48.20) Active confirmed Problem 812868679 Longstanding persistent atrial fibrillation (I48.11) Active confirmed Problem Chronic kidney disease stage 3 (disorder) (598261077) Chronic kidney disease, stage 3 unspecified (N18.30) Active confirmed Problem 405439778 Chronic kidney disease, stage 3b (N18.32) Active confirmed Problem Cardiomegaly (2320703) Atrial enlargement, right (I51.7) Active confirmed Problem Pericardial effusion (652373921) Pericardial effusion (I31.39) Active confirmed Vital Signs Blood pressure diastolic 52 mm Hg 03/09/2025 Height 57 in 03/09/2025 Blood pressure systolic 134 mm Hg 03/09/2025 Weight 135.2 lbs 03/09/2025 BMI 29.25 kg/m2 03/09/2025 Procedures Procedure Date Ordered Date Performed Result Body Sit e EAR IRRIGATION - performed 03/09/2025 N/A Encounters Encounter Location Date Provider Diagnosis [facility] [address] [place] [address] 06/18/2024 Regino christine Hyperlipidemia E78.5 [facility] [address] [place] [address] 06/23/2024 Regino [facility] [address] [place] [address] 07/14/2024 Regino [facility] [address] [place] [address] 08/10/2024 Regino [facility] [address] [facility] [place] [address] 09/03/2024 Regino Tierney [facility] [address] [facility] [place] [address] 09/08/2024 Regino [facility] [address] [facility] [place] [address] 10/06/2024 Regino [facility] [address] [place] [address] 11/09/2024 Regino [facility] [address] [facility] [place] [place] [address] 12/10/2024 Regino Dmitri Aortic stenosis I35. 0 and Longstanding persistent atrial fibrillation I48.11 [facility] [address] [facility] [place] [address] 12/10/2024 Regino christine [facility] [address] [facility] [place] [address] 01/08/2025 Reigno christine [facility] [address] [facility] [place] [address] 02/02/2025 Regino Dmitri Diastolic heart fail ure I50.30 [facility] [address] [facility] [address] 02/04/2025 Regino [facility] [address] [facility] [place] [address] 02/14/2025 Regino christine [facility] [address] [place] [facility] [place] [address] 02/15/2025 Regino [facility] [address] [facility] [place] [address] 02/17/2025 Regino Tierney [facility] [address] [place] [facility] [address] 04/01/2025 Regino [facility] [address] [facility] [place] [address] 04/13/2025 Regino Dmitri [facility] [address] [place] [facility] [place] [address] 05/06/2025 Regino [facility] [address] [facility] [place] [address] 08/28/2024 Regino Tierney Hyperlipidemia E78.5 ; Diastolic heart failure I50.30 ; Pulmonary hypertension I27.20 and Essential (primary) hypertension I10 [facility] [address] [place] [facility] [address] 03/09/2025 Regino Tierney Diastolic heart fail ure [...] 03/09/2025 Chronic atrial fibrillation (ICD-10 - I48.20) 06/18/2024 Hyperlipidemia (ICD-10 - E78.5) 12/10/2024 Aortic [...] Provider Name:Regino Tierney, 11:00:00 AM, [address] [place], [address], Insurance Providers Payer Name Payer Address Payer Phone Subscriber Number Group Number Insured Name Patient Relationship to Insured Coverage Start Date Coverage End Date [facility] [employer] [address] [address] [place] [address] [id number] Inez Juarez Self - patient is the [...] Diverticular disease K57.90 Surgical History Surgery Date(Month/Year) Bilateral Foot surgery [facility] Heart Cath- Dr. Price 10/22/2023 Eye surgery
--- NOTE | 2025-06-09 13:00 | CA_ITS ---
Patient Name: FABY JUAREZ MR#: [id number] : 1940 Exam Date: 06/09/2025 Ordering Doctor: DR MITCH JC M.D. ECHOCARDIOGRAM REPORT PROCEDURE: CA ECHO DOPPLER COMPLETE INDICATIONS: Pulmonary hypertension COMPARISON: None. DESCRIPTION: COMPLETE ECHOCARDIOGRAM Real-time transthoracic echocardiography with 2D, M-mode, spectral and color flow Doppler performed. QUALITY: Technical quality was good. LEFT VENTRICLE: Normal chamber size. Normal left ventricular wall thickness. Normal systolic function. The septum is abnormal in motion compatible with right ventricular pressure and/or volume overload. LV EF: Normal left ventricular ejection fraction, (65%). DIASTOLIC: Grade III diastolic dysfunction. ATRIAL SEPTUM: Visually appears intact. LEFT ATRIUM: Severe dilatation. RIGHT ATRIUM: Severe dilatation. RIGHT VENTRICLE: Moderate dilatation. Decreased right ventricular systolic function. TRICUSPID VALVE: Normal mobility and thickness. No stenosis with moderate regurgitation. Doppler studies reveal severely (>60) elevated right sided pressures. RVSP 96 mmHg MITRAL VALVE: Mildly thickened with normal mobility. No evidence of mitral valve stenosis. There is no mitral annular calcification. Mild mitral regurgitation. AORTIC VALVE: Normal trileaflet appearance. Mildly calcified aortic valve. Mildly diminished mobility. Doppler velocity suggest mild aortic valve stenosis [mean gradient 11 mmHg, peak velocity 2.31 m/s]. No aortic regurgitation. AORTIC ROOT: Normal diameter and appearance, measuring 2.7 cm. PULMONIC VALVE: Normal thickness and mobility. No stenosis. Trivial regurgitation. PERICARDIUM: No evidence of pericardial effusion. IVC: IVC is dilated (2.2 cm), does not fully collapse. PLEURA: CONCLUSION: 1. Normal left ventricular size and systolic function. Estimated LVEF is 65%. 2. Moderately dilated right ventricle with reduced systolic function. 3. Grade III diastolic dysfunction. 4. Severe biatrial dilatation. 5. Mild aortic stenosis. 6. Mild mitral regurgitation. 7. Moderate tricuspid regurgitation. 8. Severely elevated right sided pressures. RVSP 96 mmHg. Adult Echocardiography Procedure Report Left Ventricle LVEDD (3.7 - 5.6 cm): 4.45 cm LVESD (2.2 - 4.0 cm): 3.21 cm LVIVS thickness (0.6 - 1.2 cm): 1.00 cm LVPW thickness (0.5 - 1.0 cm): 0.78 cm e': 0.09 m/s E - e': 13.74 LVOT Max Gradient: 2.38 mm[Hg] LVOT Area (cm2): 0.77 m/s Peak Velocity (LVOT): 0.77 m/s Mean Velocity (LVOT): 0.57 m/s LVOT Diameter 2.05 cm Left Ventricular Ejection Fraction: 65 % Left Atrium LA Volume Index (2D A2C): 82.86 ml/m2 Left Atrium Systolic Dimension: 4.67 cm Mitral Valve MV E to A Ratio: 3.37 Mitral Valve A-Wave Peak Velocity: 0.38 m/s Mitral Valve E-Wave Peak Velocity: 1.28 m/s Right Ventricle Aorta AO Root Diam: 2.68 cm Aortic Valve AoV Area (Peak Mark): 1.10 cm2, 1.32 cm2 AoV Area (VTI): 1.16 cm2, 1.60 cm2 Peak Velocity(Antegrade Flow): 1.93 m/s, 2.31 m/s Peak Gradient(Antegrade Flow): 14.91 mm[Hg], 21.38 mm[Hg] Mean Velocity(Antegrade Flow): 1.32 m/s, 1.47 m/s Mean Gradient(Antegrade Flow): 7.87 mm[Hg], 10.71 mm[Hg] Velocity Time Integral: 46.63 cm, 64.41 cm Tricuspid Valve Peak Velocity (Regurgitant Flow): 3.74 m/s, 4.49 m/s Pulmonic Valve Peak Velocity: 1.00 m/s Peak Gradient: 4.01 mm[Hg] Right Atrium Right Atrium Systolic Pressure: 176.70 ml, 176.70 ml Dictated by: Mitch Jc M.D. on 06/09/2025 at 18:55 Approved by: Mitch Jc M.D. on 06/09/2025 at 19:14
--- OUTSIDE RECORDS SUMMARY | 2025-06-09 13:02 | XMS_ITS | CCD ---
Author Organization [facility] Care Team Providers Care [employer] Work Supervisor Name Role Phone UNKNOWN, PROVIDER Attending Unavailable [...] MOUKARBEL, DR BARAJAS Attending Unavailable MOUKARBEL, DR ABRAJAS Admitting Unavailable MOUKARBEL, DR BARAJAS Consulting Unavailable [...] JENN Attending Unavailable MOUKARBEL, JENN Attending Unavailable SMITHATNONY Admitting Unavailable ANTONY SMITH Attending Unavailable MOUKARBEL, [...] 04-16-2022 Episodic Other aftercare (4 sources) Other correction (current) drug therapy; Translations: [OTH [facility] CURRENT DRUG THERAPY] Onset: 06-04-2022 Episodic Other [...] Range Facility Office Visiton 07-03-2024 Follow-up visit [id number] Inez Juarez 1940 F Date Provider Department Center 07/03/2024 JENN AMANDA BARBRA Acuña Family History Problem Relation Age of Onset Hypertension Mother Coronary artery disease Father Hypertension Father Family Status - Relation Status Age at Mother Father Level of Service:22670 MS OFFICE/OUTPATIENT ESTABLISHED LOW MDM 20 MIN Normal [facility] Office Visiton 12-13-2023 Follow-up visit [id number] Inez Juarez 1940 Provider Department Center 12/13/2023 JENN AMANDA BARBRA Acuña Family History Problem Relation Age of Onset Hypertension Mother Coronary artery disease Father Hypertension Father Family Status - Relation Status Age at Mother Father Level of Service:64001 MS OFFICE/OUTPATIENT ESTABLISHED MOD MDM 30 MIN Normal [facility] Office Visiton 10-30-2023 Follow-up visit [id number] Inez Juarez 1940 Date Provider Department Center 10/30/2023 JENN AMANDA BARBRA Acuña Family History Problem Relation Age of Onset Hypertension Mother Coronary artery disease Father Hypertension Father Family Status - Relation Status Age at Mother Father Level of Service:31869 MS OFFICE/OUTPATIENT ESTABLISHED MOD MDM 30 MIN Normal [facility] HPon 10-22-2023 History Of Present Illness Inez [...] past medical history of Atrial fibrillation ([facility]), CHF (congestive heart failure) ([facility]), Chronic kidney disease, GERD (gastroesophageal reflux disease), Heart valve disease, Hyperlipidemia, Hypertension, and Pulmonary hypertension ([facility]). Surgical History She has a [...] Results Reviewed Relevant (more content not included)... [facility] NURSNOTEon 10-22-2023 NURSNOTE RN educated pt on d/c instructions. RN encouraged pt to voice any questions or concerns. Pt verbalizes no questions or concerns at this time. Normal [facility] BNPon 03-22-2023 Natriuretic peptide B (Bld) [Mass/Vol] 1423.0 pg/mL Normal <=1,800.0 [facility] Comment on above: Performed By: #### B AIR TRAFFIC CONTROLLER, CMP, TSH, LIPID #### [facility] [address] [place] [address] Dr. Reji Thomas CBC AUTO DIFFon 03-22-2023 BASO # 0.1 103/ul Normal 0.0-0.1 [facility] Comment on above: Performed By: #### B MP #### [facility] [address] [address] [address] Reji Thomas Basophils/100 WBC (Bld) 1.0 % Normal 0.2-2.0 [facility] Comment on above: Performed By: #### B MP #### [facility] [address] [address] [address] Reji Thomas EO # 0.2 103/ul Normal 0.0-0.7 [facility] Comment on above: Performed By: #### B MP #### [facility] [address] [place] [address] Dr. Reji Thomas Eosinophils/100 WBC (Bld) 3.3 % Normal 0.9-7.0 [facility] Comment on above: Performed By: #### B MP #### [facility] [address] [place] [address] Dr. Reji Thomas Erythrocyte distribution width (RBC) [Ratio] 15.4 % Critically high 11.0-15.0 [facility] Comment on above: Performed By: #### B MP #### [facility] [address] [place] [address] Dr. Reji Thomas Hematocrit (Bld) [Volume fraction] 35.2 % Critically low 36.0-48.0 [facility] Comment on above: Performed By: #### B MP #### [facility] [address] [place] [address] Dr. Reji Thomas Hemoglobin (Bld) [Mass/Vol] 11.4 g/dL Critically low 12.0-16.0 [facility] Comment on above: Performed By: #### B MP #### [facility] [address] [place] [address] Dr. Reji Thomas IG # 0.02 10e3/ul Normal 0.00-0.03 [facility] Comment on above: Performed By: #### B MP #### [facility] [address] [place] [address] Dr. Reji Thomas IG % 0.3 % Normal 0.0-0.5 [facility] Comment on above: Performed By: #### B MP #### [facility] [address] [place] [address] Dr. Reji Thomas LYMPH # 1.4 103/ul Normal 1.2-3.8 [facility] Comment on above: Performed By: #### B MP #### [facility] [address] [place] [address] Dr. Reji Thomas Lymphocytes/100 WBC (Bld) 22.6 % Normal 20.5-60.0 [facility] Comment on above: Performed By: #### B MP #### [facility] [address] [place] [address] Dr. Reji Thomas MANUAL DIFF REQ NO Normal [facility] Comment on above: Performed By: #### B MP #### [facility] [address] [place] [address] Dr. Reji Thomas MCH (RBC) [Entitic mass] 27.0 pg Normal 26.7-34.0 [facility] Comment on above: Performed By: #### B MP #### [facility] [address] [place] [address] Dr. Reji Thomas MCHC (RBC) [Mass/Vol] 32.4 g/dL Normal 29.9-35.2 [facility] Comment on above: Performed By: #### B MP #### [facility] [address] [place] [address] Dr. Reji Thomas MCV (RBC) [Entitic vol] 83.2 fL Normal 81.0-99.0 [facility] Comment on above: Performed By: #### B MP #### [facility] [address] [place] [address] Dr. Reji Thomas MONO # 0.5 103/ul Normal 0.3-0.8 [facility] Comment on above: Performed By: #### B MP #### [facility] [address] [place] [address] Dr. Reji Thomas Monocytes/100 WBC (Bld) 8.5 % Normal 1.7-12.0 [facility] Comment on above: Performed By: #### B MP #### [facility] [address] [place] [address] Dr. Reji Thomas NEUT # 4.0 103/ul Normal 1.4-6.5 [facility] Comment on above: Performed By: #### B MP #### [facility] [address] [place] [address] Dr. Reji Thomas Neutrophils/100 WBC (Bld) 64.3 % Normal 43.0-75.0 [facility] Comment on above: Performed By: #### B MP #### [facility] [address] [place] [address] Dr. Reji Thomas Platelet mean volume (Bld) [Entitic vol] 8.9 fL Critically low 9.5-13.5 [facility] Comment on above: Performed By: #### B MP #### [facility] [address] [address] [address] Reji Thomas PLT 226 103/ul Normal 150-450 [facility] Comment on above: Performed By: #### B MP #### [facility] [address] [address] [address] Reji Thomas RBC 4.23 106/ul Normal 4.20-5.40 [facility] Comment on above: Performed By: #### B MP #### [facility] [address] [address] [address] Reji Thomas WBC 6.3 103/ul Normal 4.0-11.0 [facility] Comment on above: Performed By: #### B MP #### [facility] [address] [address] [address] Reji Thomas FREE THYROXINE INDEX T7on FTI 2.40 Normal 1.30-4.50 [facility] Comment on above: Performed By: #### B AIR TRAFFIC CONTROLLER, CMP, TSH, LIPID #### [facility] [address] [place] [address] Dr. Reji Thomas T3U 32.0 % Normal 30.0-39.0 [facility] Comment on above: Performed By: #### B AIR TRAFFIC CONTROLLER, CMP, TSH, LIPID #### [facility] [address] [place] [address] Dr. Reji Thomas T4 [Mass/Vol] 7.50 ug/dL Normal 4.80-13.90 [facility] Comment on above: Performed By: #### B AIR TRAFFIC CONTROLLER, CMP, TSH, LIPID #### [facility] [address] [place] [address] Dr. Reji Thomas GLYCOHEMOGLOBIN A1Con 2022 ADA RECOMMENDATION SEE BELOW Normal [facility] Comment on above: Result Comment: ADA RECOMMENDED LIMIT 4.0 - 6.0 ADA THERAPEUTIC TARGET < 7.0 ACTION SUGGESTED > 7.0 Performed By: #### B AIR TRAFFIC CONTROLLER, CMP, TSH, LIPID #### [facility] [address] [address] [address] Reji Thomas Glucose [Mass/Vol] 97 mg/dL Normal [facility] Comment on above: Performed By: #### B AIR TRAFFIC CONTROLLER, CMP, TSH, LIPID #### [facility] [address] [address] [address] Reji Thomas HbA1c (Bld) [Mass fraction] 5.0 % Normal 4.5-6.2 [facility] Comment on above: Performed By: #### B AIR TRAFFIC CONTROLLER, CMP, TSH, LIPID #### [facility] [address] [address] [address] Reji Thomas IRONon 03-22-2023 Iron [Mass/Vol] 47.0 ug/dL Critically low 50.0-170.0 [facility] Comment on above: Performed By: #### B AIR TRAFFIC CONTROLLER, CMP, TSH, LIPID #### [facility] [address] [place] [address] Dr. Reji Thomas LIPID PROFILEon 03-22-2023 CHOL-HDL RATIO NORM SEE BELOW Normal [facility] Comment on above: Result Comment: 3.3 - 4.4 LOW RISK 4.4 - 7.1 AVERAGE RISK 7.1 - 11.0 MODERATE RISK >11.0 HIGH RISK Performed By: #### M G, TSH, LIPID, T7, CMP, BNP #### [facility] [address] [address] [address] Reji Thomas Cholesterol [Mass/Vol] 188 mg/dL Normal <=200 [facility] Comment on above: Performed By: #### M G, TSH, LIPID, T7, CMP, BNP #### [facility] [address] [address] [address] Reji Thomas Cholesterol in HDL [Mass/Vol] 53 mg/dL Normal 40-60 [facility] Comment on above: Performed By: #### M G, TSH, LIPID, T7, CMP, BNP #### [facility] [address] [address] [address] Reji Thomas Cholesterol in LDL [Mass/Vol] 111.6 mg/dL Normal [facility] Comment on above: Performed By: #### M G, TSH, LIPID, T7, CMP, BNP #### [facility] [address] [address] [address] Reji Thomas Cholesterol.total/Ch olesterol in HDL [Mass ratio] 3.5 {ratio} Normal [facility] Comment on above: Performed By: #### M G, TSH, LIPID, T7, CMP, BNP #### [facility] [address] [address] [address] Reji Thomas HDL NORMAL > or = 60 mg/dl - LOW CARDIOVASCULAR RISK <40 mg/dl - HIGH CARDIOVASCULAR RISK Normal [facility] Comment on above: Performed By: #### M G, TSH, LIPID, T7, CMP, BNP #### [facility] [address] [place] [address] Dr. Reji Thomas LDL CALC NORMAL SEE BELOW Normal [facility] Comment on above: Result Comment: <100 mg/dl OPTIMAL 100 - 129 mg/dl NEAR OR ABOVE OPTIMAL 130 - 159 mg/dl BORDERLINE HIGH 160 - 189 mg/dl HIGH >190 mg/dl VERY HIGH Performed By: #### M G, TSH, LIPID, T7, CMP, BNP #### [facility] [address] [address] [address] Reji Thomas Triglyceride [Mass/Vol] 117 mg/dL Normal <=150 [facility] Comment on above: Performed By: #### M G, TSH, LIPID, T7, CMP, BNP #### [facility] [address] [address] [address] Reji Thomas VLDL CALC 23.4 mg/dL Normal [facility] Comment on above: Performed By: #### M G, TSH, LIPID, T7, CMP, BNP #### [facility] [address] [address] [address] Reji Thomas MAGNESIUMon 03-22-2023 Magnesium [Mass/Vol] 2.4 mg/dL Normal 1.8-2.4 [facility] Comment on above: Performed By: #### B AIR TRAFFIC CONTROLLER, CMP, TSH, LIPID #### [facility] [address] [place] [address] Dr. Reji Thomas PROF 14(COMP METB)on 023 Albumin [Mass/Vol] 3.4 g/dL Normal 3.4-5.0 [facility] Comment on above: Performed By: #### M G, TSH, LIPID, T7, CMP, BNP #### [facility] [address] [place] [address] Dr. Reji Thomas Albumin/Globulin [Mass ratio] 0.8 {ratio} Normal [facility] Comment on above: Performed By: #### M G, TSH, LIPID, T7, CMP, BNP #### [facility] [address] [place] [address] Dr. Reji Thomas ALP [Catalytic activity/Vol] 61 U/L Normal 46-116 [facility] Comment on above: Performed By: #### M G, TSH, LIPID, T7, CMP, BNP #### [facility] [address] [place] [address] Dr. Reji Thomas ALT [Catalytic activity/Vol] 15 U/L Normal 14-59 [facility] Comment on above: Performed By: #### M G, TSH, LIPID, T7, CMP, BNP #### [facility] [address] [place] [address] Dr. Reji Thomas Anion gap [Moles/Vol] 13.1 mmol/L Normal [facility] Comment on above: Performed By: #### M G, TSH, LIPID, T7, CMP, BNP #### [facility] [address] [place] [address] Dr. Reji Thomas AST [Catalytic activity/Vol] 13 U/L Critically low 15-37 [facility] Comment on above: Performed By: #### M G, TSH, LIPID, T7, CMP, BNP #### [facility] [address] [place] [address] Dr. Reji Thmoas Bilirubin [Mass/Vol] 0.4 mg/dL Normal 0.2-1.0 [facility] Comment on above: Performed By: #### M G, TSH, LIPID, T7, CMP, BNP #### [facility] [address] [place] [address] Dr. Reji Thomas Calcium [Mass/Vol] 8.5 mg/dL Normal 8.5-10.1 [facility] Comment on above: Performed By: #### M G, TSH, LIPID, T7, CMP, BNP #### [facility] [address] [place] [address] Dr. Reji Thomas Chloride [Moles/Vol] 106 mmol/L Normal 98-107 [facility] Comment on above: Performed By: #### M G, TSH, LIPID, T7, CMP, BNP #### [facility] [address] [place] [address] Dr. Reji Thomas CO2 [Moles/Vol] 27.6 mmol/L Normal 21.0-32.0 [facility] Comment on above: Performed By: #### M G, TSH, LIPID, T7, CMP, BNP #### [facility] [address] [place] [address] Dr. Reji Thomas Creatinine [Mass/Vol] 2.32 mg/dL Critically high 0.55-1.02 [facility] Comment on above: Performed By: #### M G, TSH, LIPID, T7, CMP, BNP #### [facility] [address] [place] [address] Dr. Rjei Thomas EGFR-AF LIBERIAN 24 mL/min/1.73m2 Critically low >=60 [facility] Comment on above: Performed By: #### M G, TSH, LIPID, T7, CMP, BNP #### [facility] [address] [place] [address] Dr. Reji Thomas EGFR-NON AF LIBERIAN 20 mL/min/1.73m2 Critically low >=60 [facility] Comment on above: Performed By: #### M G, TSH, LIPID, T7, CMP, BNP #### [facility] [address] [place] [address] Dr. Reji Thomas Globulin (S) [Mass/Vol] 4.3 g/dL Normal [facility] Comment on above: Performed By: #### M G, TSH, LIPID, T7, CMP, BNP #### [facility] [address] [address] [address] Reji Thomas Glucose [Mass/Vol] 88 mg/dL Normal 74-106 [facility] Comment on above: Performed By: #### M G, TSH, LIPID, T7, CMP, BNP #### [facility] [address] [address] [address] Reji Thomas Potassium [Moles/Vol] 4.7 mmol/L Normal 3.5-5.1 [facility] Comment on above: Performed By: #### M G, TSH, LIPID, T7, CMP, BNP #### [facility] [address] [address] [address] Reji Thomas Protein [Mass/Vol] 7.7 g/dL Normal 6.4-8.2 [facility] Comment on above: Performed By: #### M G, TSH, LIPID, T7, CMP, BNP #### [facility] [address] [place] [address] Dr. Reji Thomas Sodium [Moles/Vol] 142 mmol/L Normal 136-145 [facility] Comment on above: Performed By: #### M G, TSH, LIPID, T7, CMP, BNP #### [facility] [address] [address] [address] Reji Thomas Urea nitrogen [Mass/Vol] 38.0 mg/dL Critically high 7.0-18.0 [facility] Comment on above: Performed By: #### M G, TSH, LIPID, T7, CMP, BNP #### [facility] [address] [place] [address] Dr. Reji Thomas Urea nitrogen/Creatinine [Mass ratio] 16.4 mg/mg Normal [facility] Comment on above: Performed By: #### M G, TSH, LIPID, T7, CMP, BNP #### [facility] [address] [place] [address] Dr. Reji Thomas PROTIMEon 03-22-2023 INR Coag (PPP) [Relative time] 1.98 {INR} Normal [facility] Comment on above: Performed By: #### P T #### [facility] [address] [place] [address] Dr. Reji Thomas INR GUIDELINES SEE BELOW Normal [facility] Comment on above: Result Comment: SHY RED INR: 2.0 - 3.0 CONDITIONS NOT LISTED BELOW 2.5 - 3.5 FOR PROSTHETIC HEART VALVE REPLACEMENT 2.5 - 3.5 RECURRENT THROMBOSIS Performed By: #### P T #### [facility] [address] [place] [address] Dr. Reji Thomas PT Coag (PPP) [Time] 20.2 s Critically high 9.0-11.6 [facility] Comment on above: Performed By: #### P T #### [facility] [address] [place] [address] Dr. Reji Thomas TSHon 03-22-2023 TSH 2.265 uIU/mL Normal 0.358-3.740 [facility] Comment on above: Performed By: #### B AIR TRAFFIC CONTROLLER, CMP, TSH, LIPID #### [facility] [address] [place] [address] Dr. Reji Thomas VITAMIN D 25 OHon 03-22-2023 VIT D 25-OH 53.1 ng/mL Normal [facility] Comment on above: Performed By: #### B MP #### [facility] [address] [place] [address] Dr. Reji Thomas VIT D RANGES SEE BELOW Normal [facility] Comment on above: Result Comment: <20 ng/mL Vit D deficient 20 - <30 ng/mL Vit D insufficient 30 - 100 ng/mL Vit D sufficient >100 ng/mL Potential Toxicity Performed By: #### B MP #### [facility] [address] [place] [address] Dr. Reji Thomas PROTIMEon 02-22-2023 INR Coag (PPP) [Relative time] 2.22 {INR} Normal [facility] Comment on above: Performed By: #### B AIR TRAFFIC CONTROLLER, CMP, TSH, LIPID #### [facility] [address] [place] [address] Dr. Reji Thomas INR GUIDELINES SEE BELOW Normal [facility] Comment on above: Result Comment: SHY RED INR: 2.0 - 3.0 CONDITIONS NOT LISTED BELOW 2.5 - 3.5 FOR PROSTHETIC HEART VALVE REPLACEMENT 2.5 - 3.5 RECURRENT THROMBOSIS Performed By: #### B AIR TRAFFIC CONTROLLER, CMP, TSH, LIPID #### [facility] [address] [place] [address] Dr. Reji Thomas PT Coag (PPP) [Time] 22.5 s Critically high 9.0-11.6 [facility] Comment on above: Performed By: #### B AIR TRAFFIC CONTROLLER, CMP, TSH, LIPID #### [facility] [address] [place] [address] Dr. Reji Thomas PROTIMEon 01-03-2023 INR Coag (PPP) [Relative time] 2.53 {INR} Normal [facility] Comment on above: Performed By: #### B MP #### [facility] [address] [place] [address] Dr. Reji Thomas INR GUIDELINES SEE BELOW Normal [facility] Comment on above: Result Comment: SHY RED INR: 2.0 - 3.0 CONDITIONS NOT LISTED BELOW 2.5 - 3.5 FOR PROSTHETIC HEART VALVE REPLACEMENT 2.5 - 3.5 RECURRENT THROMBOSIS Performed By: #### B MP #### [facility] [address] [place] [address] Dr. Reji Thomas PT Coag (PPP) [Time] 25.4 s Critically high 9.0-11.6 [facility] Comment on above: Performed By: #### B MP #### [facility] [address] [place] [address] Dr. Reji Thomas PROTIMEon 11-23-2022 INR Coag (PPP) [Relative time] 1.71 {INR} Normal [facility] Comment on above: Performed By: #### B AIR TRAFFIC CONTROLLER, CMP, TSH, LIPID #### [facility] [address] [place] [address] Dr. Reji Thomas INR GUIDELINES SEE BELOW Normal [facility] Comment on above: Result Comment: SHY RED INR: 2.0 - 3.0 CONDITIONS NOT LISTED BELOW 2.5 - 3.5 FOR PROSTHETIC HEART VALVE REPLACEMENT 2.5 - 3.5 RECURRENT THROMBOSIS Performed By: #### B AIR TRAFFIC CONTROLLER, CMP, TSH, LIPID #### [facility] [address] [place] [address] Dr. Reji Thomas PT Coag (PPP) [Time] 17.6 s Critically high 9.0-11.6 [facility] Comment on above: Performed By: #### B AIR TRAFFIC CONTROLLER, CMP, TSH, LIPID #### [facility] [address] [place] [address] Dr. Reji Thomas PROTIMEon 10-10-2022 INR Coag (PPP) [Relative time] 2.52 {INR} Normal [facility] Comment on above: Performed By: #### B AIR TRAFFIC CONTROLLER, CMP, TSH, LIPID #### [facility] [address] [place] [address] Dr. Reji Thomas INR GUIDELINES SEE BELOW Normal [facility] Comment on above: Result Comment: SHY RED INR: 2.0 - 3.0 CONDITIONS NOT LISTED BELOW 2.5 - 3.5 FOR PROSTHETIC HEART VALVE REPLACEMENT 2.5 - 3.5 RECURRENT THROMBOSIS Performed By: #### B AIR TRAFFIC CONTROLLER, CMP, TSH, LIPID #### [facility] [address] [place] [address] Dr. Reji Thomas PT Coag (PPP) [Time] 25.6 s Critically high 9.0-11.6 [facility] Comment on above: Performed By: #### B AIR TRAFFIC CONTROLLER, CMP, TSH, LIPID #### [facility] [address] [place] [address] Dr. Reji Thomas PROTIMEon 09-05-2022 INR Coag (PPP) [Relative time] 2.03 {INR} Normal [facility] Comment on above: Performed By: #### B AIR TRAFFIC CONTROLLER, CMP, TSH, LIPID #### [facility] [address] [place] [address] Dr. Reji Thomas INR GUIDELINES SEE BELOW Normal [facility] Comment on above: Result Comment: SHY RED INR: 2.0 - 3.0 CONDITIONS NOT LISTED BELOW 2.5 - 3.5 FOR PROSTHETIC HEART VALVE REPLACEMENT 2.5 - 3.5 RECURRENT THROMBOSIS Performed By: #### B AIR TRAFFIC CONTROLLER, CMP, TSH, LIPID #### [facility] [address] [place] [address] Dr. Reji Thomas PT Coag (PPP) [Time] 20.9 s Critically high 9.0-11.6 [facility] Comment on above: Performed By: #### B AIR TRAFFIC CONTROLLER, CMP, TSH, LIPID #### [facility] [address] [place] [address] Dr. Reji Thomas BNPon 08-10-2022 Natriuretic peptide B (Bld) [Mass/Vol] 1162.0 pg/mL Normal <=1,800.0 [facility] Comment on above: Performed By: #### B MP, BNP #### [facility] [facility] [address] [place] [address] Dr. Reji Thomas PROF CHEM 8 (BAS METB)on Anion gap [Moles/Vol] 11.3 mmol/L Normal [facility] Comment on above: Performed By: #### B MP, BNP #### [facility] [address] [place] [address] Dr. Reji Thomas Calcium [Mass/Vol] 8.9 mg/dL Normal 8.5-10.1 [facility] Comment on above: Performed By: #### B MP, BNP #### [facility] [address] [place] [address] Dr. Reji Thomas Chloride [Moles/Vol] 103 mmol/L Normal 98-107 [facility] Comment on above: Performed By: #### B MP, BNP #### [facility] [address] [place] [address] Dr. Reji Thomas CO2 [Moles/Vol] 28.2 mmol/L Normal 21.0-32.0 [facility] Comment on above: Performed By: #### B MP, BNP #### [facility] [address] [place] [address] Dr. Reji Thomas Creatinine [Mass/Vol] 2.07 mg/dL Critically high 0.55-1.02 [facility] Comment on above: Performed By: #### B MP, BNP #### [facility] [address] [place] [address] Dr. Reji Thomas EGFR-AF LIBERIAN 28 mL/min/1.73m2 Critically low >=60 [facility] Comment on above: Performed By: #### B MP, BNP #### [facility] [address] [address] [address] Reji Thomas EGFR-NON AF LIBERIAN 23 mL/min/1.73m2 Critically low >=60 [facility] Comment on above: Performed By: #### B MP, BNP #### [facility] [address] [address] [address] Reji Thomas Glucose [Mass/Vol] 88 mg/dL Normal 74-106 [facility] Comment on above: Performed By: #### B MP, BNP #### [facility] [address] [place] [address] Dr. Reji Thomas Potassium [Moles/Vol] 4.5 mmol/L Normal 3.5-5.1 [facility] Comment on above: Performed By: #### B MP, BNP #### [facility] [address] [place] [address] Dr. Reji Thomas Sodium [Moles/Vol] 138 mmol/L Normal 136-145 [facility] Comment on above: Performed By: #### B MP, BNP #### [facility] [address] [place] [address] Dr. Reji Thomas Urea nitrogen [Mass/Vol] 35.0 mg/dL Critically high 7.0-18.0 [facility] Comment on above: Performed By: #### B MP, BNP #### [facility] [address] [place] [address] Dr. Reji Thomas Urea nitrogen/Creatinine [Mass ratio] 16.9 mg/mg Normal [facility] Comment on above: Performed By: #### B MP, BNP #### [facility] [address] [place] [address] Dr. Reji Thomas PROTIMEon 08-09-2022 INR Coag (PPP) [Relative time] 2.04 {INR} Normal [facility] Comment on above: Performed By: #### B AIR TRAFFIC CONTROLLER, CMP, TSH, LIPID #### [facility] [address] [place] [address] Dr. Reji Thomas INR GUIDELINES SEE BELOW Normal [facility] Comment on above: Result Comment: SHY RED INR: 2.0 - 3.0 CONDITIONS NOT LISTED BELOW 2.5 - 3.5 FOR PROSTHETIC HEART VALVE REPLACEMENT 2.5 - 3.5 RECURRENT THROMBOSIS Performed By: #### B AIR TRAFFIC CONTROLLER, CMP, TSH, LIPID #### [facility] [address] [place] [address] Dr. Reji Thomas PT Coag (PPP) [Time] 21.0 s Critically high 9.0-11.6 [facility] Comment on above: Performed By: #### B AIR TRAFFIC CONTROLLER, CMP, TSH, LIPID #### [facility] [address] [place] [address] Dr. Reji Thomas BNPon 07-09-2022 Natriuretic peptide B (Bld) [Mass/Vol] 2085.0 pg/mL Critically high <=1,800.0 [facility] Comment on above: Result Comment: CRIT ICAL CALLED TO OFFICE ON 07-10-22 AT 0850 BY AR Performed By: #### B AIR TRAFFIC CONTROLLER, CMP, TSH, LIPID #### [facility] [address] [place] [address] Dr. Reji Thomas PROF CHEM 8 (BAS METB)on Anion gap [Moles/Vol] 13.7 mmol/L Normal [facility] Comment on above: Performed By: #### B AIR TRAFFIC CONTROLLER, CMP, TSH, LIPID #### [facility] [address] [place] [address] Dr. Reji Thomas Calcium [Mass/Vol] 8.3 mg/dL Critically low 8.5-10.1 [facility] Comment on above: Performed By: #### B AIR TRAFFIC CONTROLLER, CMP, TSH, LIPID #### [facility] [address] [place] [address] Dr. Reji Thomas Chloride [Moles/Vol] 104 mmol/L Normal 98-107 [facility] Comment on above: Performed By: #### B AIR TRAFFIC CONTROLLER, CMP, TSH, LIPID #### [facility] [address] [place] [address] Dr. Reji Thomas CO2 [Moles/Vol] 26.6 mmol/L Normal 21.0-32.0 [facility] Comment on above: Performed By: #### B AIR TRAFFIC CONTROLLER, CMP, TSH, LIPID #### [facility] [address] [address] [address] Reji Thomas Creatinine [Mass/Vol] 1.98 mg/dL Critically high 0.55-1.02 [facility] Comment on above: Performed By: #### B AIR TRAFFIC CONTROLLER, CMP, TSH, LIPID #### [facility] [address] [address] [address] Reji Thomas EGFR-AF LIBERIAN 29 mL/min/1.73m2 Critically low >=60 [facility] Comment on above: Performed By: #### B AIR TRAFFIC CONTROLLER, CMP, TSH, LIPID #### [facility] [address] [place] [address] Dr. Reji Thomas EGFR-NON AF LIBERIAN 24 mL/min/1.73m2 Critically low >=60 [facility] Comment on above: Performed By: #### B AIR TRAFFIC CONTROLLER, CMP, TSH, LIPID #### [facility] [address] [address] [address] Reji Thomas Glucose [Mass/Vol] 116 mg/dL Critically high 74-106 [facility] Comment on above: Performed By: #### B AIR TRAFFIC CONTROLLER, CMP, TSH, LIPID #### [facility] [address] [address] [address] Reji Thomas Potassium [Moles/Vol] 4.3 mmol/L Normal 3.5-5.1 [facility] Comment on above: Performed By: #### B AIR TRAFFIC CONTROLLER, CMP, TSH, LIPID #### [facility] [address] [address] [address] Reji Thomas Sodium [Moles/Vol] 140 mmol/L Normal 136-145 [facility] Comment on above: Performed By: #### B AIR TRAFFIC CONTROLLER, CMP, TSH, LIPID #### [facility] [address] [address] [address] Reji Thomas Urea nitrogen [Mass/Vol] 35.0 mg/dL Critically high 7.0-18.0 [facility] Comment on above: Performed By: #### B AIR TRAFFIC CONTROLLER, CMP, TSH, LIPID #### [facility] [address] [address] [address] Reji Thomas Urea nitrogen/Creatinine [Mass ratio] 17.7 mg/mg Normal [facility] Comment on above: Performed By: #### B AIR TRAFFIC CONTROLLER, CMP, TSH, LIPID #### [facility] [address] [place] [address] Dr. Reji Thomas PROTIMEon 07-09-2022 INR Coag (PPP) [Relative time] 2.99 {INR} Normal [facility] Comment on above: Performed By: #### B AIR TRAFFIC CONTROLLER, CMP, TSH, LIPID #### [facility] [address] [place] [address] Dr. Reji Thomas INR GUIDELINES SEE BELOW Normal [facility] Comment on above: Result Comment: SHY RED INR: 2.0 - 3.0 CONDITIONS NOT LISTED BELOW 2.5 - 3.5 FOR PROSTHETIC HEART VALVE REPLACEMENT 2.5 - 3.5 RECURRENT THROMBOSIS Performed By: #### B AIR TRAFFIC CONTROLLER, CMP, TSH, LIPID #### [facility] [address] [place] [address] Dr. Reji hTomas PT Coag (PPP) [Time] 30.1 s Critically high 9.0-11.6 [facility] Comment on above: Performed By: #### B AIR TRAFFIC CONTROLLER, CMP, TSH, LIPID #### [facility] [address] [place] [address] Dr. Reji Thomas US KIDNEYSon 07-06-2022 US [...] by: SIGRID RICHMOND Date: 2022-07-06 13:31 Normal [facility] EVAN Antinuclear Antibodieson 06-19-2022 Antinuclear Abs, IFA Positive Critically abnormal . [facility] Comment on above: Result Comment: Nega tive <1:80 Borderline 1:80 Positive >1:80 Performed By: #### Krista CHOW ADDONUAPLUS #### [facility] [address] [place] [address] #### C3, C4, CH50 #### [facility] , Homogeneous Pattern 1:320 High . [facility] Comment on above: Result Comment: ICAP nomenclature: [id number] Performed By: #### Krista CHOW ADDONUAPLUS #### [facility] [address] [place] [address] #### C3, C4, CH50 #### [facility] , Note 1 Normal . [facility] Comment on above: Result Comment: For more [...] titers Nucleosomes, Histones Drug-induced SLE Speckled Sm, OLAP DEVELOPER, SCL-70, SLE,MCTD,PSS (diffuse form), SS-A/SS-B Sjogrens Nucleolar SCL-70, PM-1/SCL High titers Scleroderma, PM/DM Centromere Centromere PSS (limited form) w/Crest syndrome variable Nuclear Dot Sp100,[id number] Primary Biliary Cirrhosis Nuclear GP210, Primary Biliary Cirrhosis Membrane eleonora A,B,C Performed at: [facility] [id number] Glass Lathe Operator: Demarcus Lawton PhD, Phone: [phone] Performed By: #### C UU, ADDONUAPLUS #### [address] #### C3, C4, CH50 #### [facility] , Anti-RNPon 06-19-2022 Anti-OLAP DEVELOPER 0.4 Normal 0.0-0.9 [facility] Comment on above: Result Comment: Perf ormed at: [address] [id number] Glass Lathe Operator: Demarcus Lawton PhD, Phone: [phone] Performed By: #### C UU, ADDONUAPLUS #### [address] #### C3, C4, CH50 #### [facility] , C-Reactive Proteinon 022 C-Reactive Protein 2.0 mg/dL High 0.0-1.0 [facility] Comment on above: Result Comment: PERF ORMED BY: [place] [address] PATHOLOGIST LIQUOR DEPARTMENT MANAGER RADHA BULLARD M.D. Performed By: #### C UU, ADDONUAPLUS #### [address] #### C3, C4, CH50 #### [facility] , Complement C3on 06-19-2022 Complement C3 167 mg/dL Normal 82-167 [facility] Comment on above: Result Comment: Perf ormed at: [address] [id number] Glass Lathe Operator: Demarcus Lawton PhD, Phone: [phone] Performed By: #### C UU, ADDONUAPLUS #### [address] #### C3, C4, CH50 #### [facility] , Complement C4on 06-19-2022 Complement C4 37 mg/dL Normal 12-38 [facility] Comment on above: Performed By: #### C GERALDO ADDONUAPLUS #### [address] #### C3, C4, CH50 #### [facility] , Complement Total (CH50)on Complement Total (CH50) >60 Normal >41 [facility] Comment on above: Result Comment: Age Male [...] determine out of range values. Performed at: [facility] [id number] Glass Lathe Operator: Demarcus Lawton PhD, Phone: [phone] PERFORMED BY: [place] [address] PATHOLOGIST LIQUOR DEPARTMENT MANAGER RADHA BULLARD M.D. Performed By: #### C COURTNEY CHOWONUAPLUS #### [address] #### C3, C4, CH50 #### [facility] , Complete Blood Count Auto Di ffon 06-19-2022 Basophils (Bld) [#/Vol] 0.1 10*3/uL Normal 0.0-0.2 [facility] Comment on above: Performed By: #### H EPATIC, CBC, ESR, CRP, CREAT, CK #### [facility] [address] [place] [address] #### RNA POLYMR, ANTI TH TO, EVAN, U3 OLAP DEVELOPER, ANTIR, PM-SCL ABS #### [facility] , Basophils/100 WBC (Bld) 0.9 % Normal . [facility] Comment on above: Performed By: #### H EPATIC, CBC, ESR, CRP, CREAT, CK #### [place] [address] [place] #### RNA POLYMR, ANTI TH TO, EVAN, U3 OLAP DEVELOPER, ANTIR, PM-SCL ABS #### [facility] , Eosinophils (Bld) [#/Vol] 0.5 10*3/uL High 0.0-0.45 [facility] Comment on above: Performed By: #### H EPATIC, CBC, ESR, CRP, CREAT, CK #### [place] [address] [place] #### RNA POLYMR, ANTI TH TO, EVAN, U3 OLAP DEVELOPER, ANTIR, PM-SCL ABS #### [facility] , Eosinophils/100 WBC (Bld) 8.6 % Normal . [facility] Comment on above: Performed By: #### H EPATIC, CBC, ESR, CRP, CREAT, CK #### [place] [address] [place] #### RNA POLYMR, ANTI TH TO, EVAN, U3 OLAP DEVELOPER, ANTIR, PM-SCL ABS #### [facility] , Erythrocyte distribution width (RBC) [Ratio] 19.6 % High 11.9-15.3 [facility] Comment on above: Performed By: #### H EPATIC, CBC, ESR, CRP, CREAT, CK #### [place] [address] [place] #### RNA POLYMR, ANTI TH TO, EVAN, U3 OLAP DEVELOPER, ANTIR, PM-SCL ABS #### [facility] , Hematocrit (Bld) [Volume fraction] 33.8 % Low 34.0-46.4 [facility] Comment on above: Performed By: #### H EPATIC, CBC, ESR, CRP, CREAT, CK #### [place] [address] [place] #### RNA POLYMR, ANTI TH TO, EVAN, U3 OLAP DEVELOPER, ANTIR, PM-SCL ABS #### [facility] , Hemoglobin (Bld) [Mass/Vol] 10.9 g/dL Low 11.8-15.4 [facility] Comment on above: Performed By: #### H EPATIC, CBC, ESR, CRP, CREAT, CK #### [facility] [address] [place] [address] [place] #### RNA POLYMR, ANTI TH TO, EVAN, U3 OLAP DEVELOPER, ANTIR, PM-SCL ABS #### [facility] , Lymphocytes (Bld) [#/Vol] 1.1 10*3/uL Normal 1.00-4.8 [facility] Comment on above: Performed By: #### H EPATIC, CBC, ESR, CRP, CREAT, CK #### [place] [address] [place] #### RNA POLYMR, ANTI TH TO, EVAN, U3 OLAP DEVELOPER, ANTIR, PM-SCL ABS #### [facility] , Lymphocytes/100 WBC (Bld) 17.8 % Normal . [facility] Comment on above: Performed By: #### H EPATIC, CBC, ESR, CRP, CREAT, CK #### [place] [address] [place] #### RNA POLYMR, ANTI TH TO, EVAN, U3 OLAP DEVELOPER, ANTIR, PM-SCL ABS #### [facility] , MCH (RBC) [Entitic mass] 26.4 pg Normal 24.7-34.3 [facility] Comment on above: Performed By: #### H EPATIC, CBC, ESR, CRP, CREAT, CK #### [facility] [address] [place] [address] [place] #### RNA POLYMR, ANTI TH TO, EVAN, U3 OLAP DEVELOPER, ANTIR, PM-SCL ABS #### [facility] , MCV (RBC) [Entitic vol] 81.8 fL Normal 80-100 [facility] Comment on above: Performed By: #### H EPATIC, CBC, ESR, CRP, CREAT, CK #### [place] [address] [place] #### RNA POLYMR, ANTI TH TO, EVAN, U3 OLAP DEVELOPER, ANTIR, PM-SCL ABS #### [facility] , Mean Corpuscular HGB Conc 32.3 g/dL Normal 32.0-35.0 [facility] Comment on above: Performed By: #### H EPATIC, CBC, ESR, CRP, CREAT, CK #### [address] #### RNA POLYMR, ANTI TH TO, EVAN, U3 OLAP DEVELOPER, ANTIR, PM-SCL ABS #### [facility] , Monocytes (Bld) [#/Vol] 0.4 10*3/uL Normal 0.0-0.8 [facility] Comment on above: Performed By: #### H EPATIC, CBC, ESR, CRP, CREAT, CK #### [place] [address] [place] #### RNA POLYMR, ANTI TH TO, EVAN, U3 OLAP DEVELOPER, ANTIR, PM-SCL ABS #### [facility] , Monocytes/100 WBC (Bld) 7.4 % Normal . [facility] Comment on above: Performed By: #### H EPATIC, CBC, ESR, CRP, CREAT, CK #### [facility] [address] [place] [address] [place] #### RNA POLYMR, ANTI TH TO, EVAN, U3 OLAP DEVELOPER, ANTIR, PM-SCL ABS #### [facility] , Neutrophils (Bld) [#/Vol] 3.9 10*3/uL Normal 1.8-7.7 [facility] Comment on above: Performed By: #### H EPATIC, CBC, ESR, CRP, CREAT, CK #### [place] [address] [place] #### RNA POLYMR, ANTI TH TO, EVAN, U3 OLAP DEVELOPER, ANTIR, PM-SCL ABS #### [facility] , Neutrophils/100 WBC (Bld) 65.3 % Normal . [facility] Comment on above: Performed By: #### H EPATIC, CBC, ESR, CRP, CREAT, CK #### [address] #### RNA POLYMR, ANTI TH TO, EVAN, U3 OLAP DEVELOPER, ANTIR, PM-SCL ABS #### [facility] , Nucleated RBC/100 WBC (Bld) [Ratio] 0.0 % Normal 0-0.5 [facility] Comment on above: Performed By: #### H EPATIC, CBC, ESR, CRP, CREAT, CK #### [address] #### RNA POLYMR, ANTI TH TO, EVAN, U3 OLAP DEVELOPER, ANTIR, PM-SCL ABS #### [facility] , Platelet mean volume (Bld) [Entitic vol] 7.2 fL Normal 6.3-10.7 [facility] Comment on above: Performed By: #### H EPATIC, CBC, ESR, CRP, CREAT, CK #### [place] [address] [place] #### RNA POLYMR, ANTI TH TO, EVAN, U3 OLAP DEVELOPER, ANTIR, PM-SCL ABS #### [facility] , Platelets (Bld) [#/Vol] 237 10*3/uL Normal 150-450 [facility] Comment on above: Performed By: #### H EPATIC, CBC, ESR, CRP, CREAT, CK #### [facility] [address] [place] [address] [place] #### RNA POLYMR, ANTI TH TO, EVAN, U3 OLAP DEVELOPER, ANTIR, PM-SCL ABS #### [facility] , RBC (Bld) [#/Vol] 4.14 10*6/uL Normal 3.60-5.00 [facility] Comment on above: Performed By: #### H EPATIC, CBC, ESR, CRP, CREAT, CK #### [facility] [address] [place] [address] #### RNA POLYMR, ANTI TH TO, EVAN, U3 OLAP DEVELOPER, ANTIR, PM-SCL ABS #### [facility] , WBC (Bld) [#/Vol] 6.0 10*3/uL Normal 4.5-11.0 [facility] Comment on above: Performed By: #### H EPATIC, CBC, ESR, CRP, CREAT, CK #### [facility] [address] [place] [address] #### RNA POLYMR, ANTI TH TO, EVAN, U3 OLAP DEVELOPER, ANTIR, PM-SCL ABS #### [facility] , Creatine Kinaseon 06-19-2022 CK [Catalytic activity/Vol] 38 U/L Normal 22-269 [facility] Comment on above: Result Comment: PERF ORMED BY: [place] [address] PATHOLOGIST LIQUOR DEPARTMENT MANAGER RADHA BULLARD M.D. Performed By: #### H EPATIC, CBC, ESR, CRP, CREAT, CK #### [address] #### RNA POLYMR, ANTI TH TO, EVAN, U3 OLAP DEVELOPER, ANTIR, PM-SCL ABS #### [facility] , Creatinineon 06-19-2022 Creatinine [Mass/Vol] 2.82 mg/dL High 0.44-1.03 [facility] Comment on above: Performed By: #### H EPATIC, CBC, ESR, CRP, CREAT, CK #### [facility] [address] [place] [address] [place] #### RNA POLYMR, ANTI TH TO, EVAN, U3 OLAP DEVELOPER, ANTIR, PM-SCL ABS #### [facility] , Estimated GFR ( Oarlia 19 Normal [facility] Comment on above: Result Comment: GFR estimated reference range: According to KDOQI guidelines, <60 ml/min/1.73m2 is sufficient to diagnose a patient with chronic kidney disease. Performed By: #### H EPATIC, CBC, ESR, CRP, CREAT, CK #### [address] #### RNA POLYMR, ANTI TH TO, EVAN, U3 OLAP DEVELOPER, ANTIR, PM-SCL ABS #### [facility] , Estimated GFR (Non- Am 16 Normal [facility] Comment on above: Performed By: #### H EPATIC, CBC, ESR, CRP, CREAT, CK #### [address] #### RNA POLYMR, ANTI TH TO, EVAN, U3 OLAP DEVELOPER, ANTIR, PM-SCL ABS #### [facility] , Dipstick and Microscopicon 0 06-19-2022 Appearance (U) Cloudy Critically abnormal Clear [facility] Comment on above: Order Comment: Name Collection Type:: Clean-Voided Midstream Performed By: #### C UU, ADDONUAPLUS #### [address] #### C3, C4, CH50 #### [facility] , Bacteria,Urine 1+ High None Seen [facility] Comment on above: Order Comment: Name Collection Type:: Clean-Voided Midstream Performed By: #### C UU, ADDONUAPLUS #### [address] #### C3, C4, CH50 #### [facility] , Bilirubin,Urine Negative Normal Negative [facility] Comment on above: Order Comment: Name Collection Type:: Clean-Voided Midstream Performed By: #### C UU, ADDONUAPLUS #### [address] #### C3, C4, CH50 #### [facility] , Color (U) Yellow Normal Yellow [facility] Comment on above: Order Comment: Name Collection Type:: Clean-Voided Midstream Performed By: #### C UU, ADDONUAPLUS #### [address] #### C3, C4, CH50 #### [facility] , Glucose Ql (U) Normal Normal Normal [facility] Comment on above: Order Comment: Name Collection Type:: Clean-Voided Midstream Performed By: #### C UU, ADDONUAPLUS #### [address] #### C3, C4, CH50 #### [facility] , Hyaline Casts,Urine 1-2 Normal 0-8 [facility] Comment on above: Order Comment: Name Collection Type:: Clean-Voided Midstream Result Comment: PERF ORMED BY: [place] [address] PATHOLOGIST LIQUOR DEPARTMENT MANAGER RADHA BULLARD M.D. Performed By: #### C UU, ADDONUAPLUS #### [address] #### C3, C4, CH50 #### [facility] , Ketones Ql (U) Negative Normal Negative [facility] Comment on above: Order Comment: Name Collection Type:: Clean-Voided Midstream Performed By: #### C UU, ADDONUAPLUS #### [address] #### C3, C4, CH50 #### [facility] , Leukocyte esterase Test strip Ql (U) 4+ High Negative [facility] Comment on above: Order Comment: Name Collection Type:: Clean-Voided Midstream Performed By: #### C UU, ADDONUAPLUS #### [address] #### C3, C4, CH50 #### [facility] , Nitrite,Urine Negative Normal Negative [facility] Comment on above: Order Comment: Name Collection Type:: Clean-Voided Midstream Performed By: #### C UU, ADDONUAPLUS #### [address] #### C3, C4, CH50 #### [facility] , Occult Blood,Urine 1+ High Negative [facility] Comment on above: Order Comment: Name Collection Type:: Clean-Voided Midstream Performed By: #### C UU, ADDONUAPLUS #### [address] #### C3, C4, CH50 #### [facility] , pH (U) 6.5 [pH] Normal 5.0-9.0 [facility] Comment on above: Order Comment: Name Collection Type:: Clean-Voided Midstream Performed By: #### C UU, ADDONUAPLUS #### [address] #### C3, C4, CH50 #### [facility] , Protein,Urine Trace High Negative [facility] Comment on above: Order Comment: Name Collection Type:: Clean-Voided Midstream Performed By: #### C UU, ADDONUAPLUS #### [facility] [address] [place] [address] #### C3, C4, CH50 #### [facility] , RBC,Urine 1-2 Normal 0-4 [facility] Comment on above: Order Comment: Name Collection Type:: Clean-Voided Midstream Performed By: #### C UU, ADDONUAPLUS #### [address] #### C3, C4, CH50 #### [facility] , Specificy [place],Urine 1.010 Normal 1.001-1.030 [facility] Comment on above: Order Comment: Name Collection Type:: Clean-Voided Midstream Performed By: #### C UU, ADDONUAPLUS #### [address] #### C3, C4, CH50 #### [facility] , Squamous Epithelial Cell,Urine 5-9 High 0-2 [facility] Comment on above: Order Comment: Name Collection Type:: Clean-Voided Midstream Performed By: #### C UU, ADDONUAPLUS #### [address] #### C3, C4, CH50 #### [facility] , Urobilinogen,Urine Normal Normal Normal [facility] Comment on above: Order Comment: Name Collection Type:: Clean-Voided Midstream Performed By: #### C UU, ADDONUAPLUS #### [address] #### C3, C4, CH50 #### [facility] , WBC,Urine Innumerable High 0-4 [facility] Comment on above: Order Comment: Name Collection Type:: Clean-Voided Midstream Performed By: #### C UU, ADDONUAPLUS #### [address] #### C3, C4, CH50 #### [facility] , Erythrocyte Sedimentation Ra pratik 06-19-2022 ESR (Bld) [Velocity] 57 mm/h High 0-29 [facility] Comment on above: Result Comment: PERF ORMED BY: [place] [address] PATHOLOGIST LIQUOR DEPARTMENT MANAGER RADHA BULLARD M.D. Performed By: #### H EPATIC, CBC, ESR, CRP, CREAT, CK #### [address] #### RNA POLYMR, ANTI TH TO, EVAN, U3 OLAP DEVELOPER, ANTIR, PM-SCL ABS #### [facility] , Hepatic Panelon 06-19-2022 Albumin [Mass/Vol] 3.6 g/dL Normal 3.2-5.5 [facility] Comment on above: Performed By: #### H EPATIC, CBC, ESR, CRP, CREAT, CK #### [facility] [address] [place] [address] #### RNA POLYMR, ANTI TH TO, EVAN, U3 OLAP DEVELOPER, ANTIR, PM-SCL ABS #### [facility] , Albumin/Globulin [Mass ratio] 1.0 {ratio} Normal [facility] Comment on above: Performed By: #### H EPATIC, CBC, ESR, CRP, CREAT, CK #### [facility] [address] [place] [address] #### RNA POLYMR, ANTI TH TO, EVAN, U3 OLAP DEVELOPER, ANTIR, PM-SCL ABS #### [facility] , ALP [Catalytic activity/Vol] 68 U/L Normal 32-92 [facility] Comment on above: Performed By: #### H EPATIC, CBC, ESR, CRP, CREAT, CK #### [facility] [address] [place] [address] [place] #### RNA POLYMR, ANTI TH TO, EVAN, U3 OLAP DEVELOPER, ANTIR, PM-SCL ABS #### [facility] , ALT [Catalytic activity/Vol] 9 U/L Low 10-60 [facility] Comment on above: Performed By: #### H EPATIC, CBC, ESR, CRP, CREAT, CK #### [facility] [address] [place] [address] [place] #### RNA POLYMR, ANTI TH TO, EVAN, U3 OLAP DEVELOPER, ANTIR, PM-SCL ABS #### [facility] , AST [Catalytic activity/Vol] 15 U/L Normal 10-42 [facility] Comment on above: Performed By: #### H EPATIC, CBC, ESR, CRP, CREAT, CK #### [place] [address] [place] #### RNA POLYMR, ANTI TH TO, EVAN, U3 OLAP DEVELOPER, ANTIR, PM-SCL ABS #### [facility] , Bilirubin [Mass/Vol] 0.6 mg/dL Normal 0.3-1.2 [facility] Comment on above: Performed By: #### H EPATIC, CBC, ESR, CRP, CREAT, CK #### [place] [address] [place] #### RNA POLYMR, ANTI TH TO, EVAN, U3 OLAP DEVELOPER, ANTIR, PM-SCL ABS #### [facility] , Bilirubin,Indirect 0.4 mg/dL Normal [facility] Comment on above: Performed By: #### H EPATIC, CBC, ESR, CRP, CREAT, CK #### [place] [address] [place] #### RNA POLYMR, ANTI TH TO, EVAN, U3 OLAP DEVELOPER, ANTIR, PM-SCL ABS #### [facility] , Bilirubin.indirect [Mass/Vol] 0.2 mg/dL Normal 0.0-0.4 [facility] Comment on above: Performed By: #### H EPATIC, CBC, ESR, CRP, CREAT, CK #### [address] #### RNA POLYMR, ANTI TH TO, EVAN, U3 OLAP DEVELOPER, ANTIR, PM-SCL ABS #### [facility] , Globulin (S) [Mass/Vol] 3.5 g/dL Normal [facility] Comment on above: Performed By: #### H EPATIC, CBC, ESR, CRP, CREAT, CK #### [place] [address] [place] #### RNA POLYMR, ANTI TH TO, EVAN, U3 OLAP DEVELOPER, ANTIR, PM-SCL ABS #### [facility] , Protein [Mass/Vol] 7.1 g/dL Normal 6.1-7.9 [facility] Comment on above: Performed By: #### H EPATIC, CBC, ESR, CRP, CREAT, CK #### [facility] [address] [place] [address] #### RNA POLYMR, ANTI TH TO, EVAN, U3 OLAP DEVELOPER, ANTIR, PM-SCL ABS #### [facility] , PM-SCL Antibodieson 06-19-20 22 RAIZA PM-Scl Antibody <20 Normal <20 [facility] Comment on above: Result Comment: This test was developed and its performance characteristics determined by [facility]. It has not been cleared or approved by the Food and Drug Administration. Negative: <20 Weak Positive: 20 - 39 Moderate Positive: 40 - 80 Strong Positive: >80 Performed at: [facility] [address] [place] [phone] Glass Lathe Operator: Artemio Nair MD, Phone: [phone] Performed By: #### C UU, ADDONUAPLUS #### [address] #### C3, C4, CH50 #### [facility] , RNA Polymerase IIion 022 RNA Polymerase IIi <20 Normal <20 [facility] Comment on above: Result Comment: Nega tive: <20 Weak Positive: 20 - 39 Moderate Positive: 40 - 80 Strong Positive: >80 Performed at: [facility] [facility] [address] [place] [phone] Glass Lathe Operator: Artemio Nair MD, Phone: [phone] PERFORMED BY: [place] [address] PATHOLOGIST LIQUOR DEPARTMENT MANAGER RADHA BULLARD M.D. Performed By: #### C UU, ADDONUAPLUS #### [place] [address] [place] #### C3, C4, CH50 #### [facility] , Th/To Antibodyon 06-19-2022 Th/To Antibody Negative Normal Negative [facility] Comment on above: Result Comment: This test was developed and its performance characteristics determined by [facility]. It has not been cleared or approved by the Food and Drug Administration. Performed at: [facility] [address] [place] [address] [phone] Glass Lathe Operator: Artemio Nair MD, Phone: [phone] Performed By: #### C UU, ADDONUAPLUS #### [facility] [address] [place] [address] #### C3, C4, CH50 #### [facility] , U3 Rnpon 06-19-2022 U3 Agile Test Lead Negative Normal Negative [facility] Comment on above: Result Comment: This test was developed and its performance characteristics determined by [facility]. It has not been cleared or approved by the Food and Drug Administration. Performed at: [facility] [address] [place] [address] [phone] Glass Lathe Operator: Artemio Nair MD, Phone: [phone] PERFORMED BY: [place] [address] PATHOLOGIST LIQUOR DEPARTMENT MANAGER RADHA BULLARD M.D. Performed By: #### C UU, ADDONUAPLUS #### [address] #### C3, C4, CH50 #### [facility] , Urine Cultureon 06-19-2022 Bacteria identified Cx Nom (U) No Growth 2 Days PERFORMED BY: [place] [address] PATHOLOGIST LIQUOR DEPARTMENT MANAGER RADHA BULLARD M.D. [facility] Comment on above: Performed By: #### C UU, ADDONUAPLUS #### [address] #### C3, C4, CH50 #### [facility] , PROF CHEM 8 (BAS METB)on Anion gap [Moles/Vol] 12.5 mmol/L Normal [facility] Comment on above: Performed By: #### B MP #### [facility] [address] [address] [address] Reji Thomas Calcium [Mass/Vol] 8.9 mg/dL Normal 8.5-10.1 [facility] Comment on above: Performed By: #### B MP #### [facility] [address] [address] [address] Reji Thomas Chloride [Moles/Vol] 103 mmol/L Normal 98-107 [facility] Comment on above: Performed By: #### B MP #### [facility] [address] [address] [address] Reji Thomas CO2 [Moles/Vol] 26.1 mmol/L Normal 21.0-32.0 [facility] Comment on above: Performed By: #### B MP #### [facility] [address] [place] [address] Dr. Reji Thomas Creatinine [Mass/Vol] 2.09 mg/dL Critically high 0.55-1.02 [facility] Comment on above: Performed By: #### B MP #### [facility] [address] [place] [address] Dr. Reji Thomas EGFR-AF LIBERIAN 27 mL/min/1.73m2 Critically low >=60 [facility] Comment on above: Performed By: #### B MP #### [facility] [address] [place] [address] Dr. Reji Thomas EGFR-NON AF LIBERIAN 23 mL/min/1.73m2 Critically low >=60 [facility] Comment on above: Performed By: #### B MP #### [facility] [address] [address] [address] Reji Thomas Glucose [Mass/Vol] 96 mg/dL Normal 74-106 [facility] Comment on above: Performed By: #### B MP #### [facility] [address] [place] [address] Dr. Reji Thomas Potassium [Moles/Vol] 4.6 mmol/L Normal 3.5-5.1 [facility] Comment on above: Performed By: #### B MP #### [facility] [address] [address] [address] Reji Thomas Sodium [Moles/Vol] 137 mmol/L Normal 136-145 [facility] Comment on above: Performed By: #### B MP #### [facility] [address] [address] [address] Reji Thomas Urea nitrogen [Mass/Vol] 38.0 mg/dL Critically high 7.0-18.0 [facility] Comment on above: Performed By: #### B MP #### [facility] [address] [place] [address] Dr. Reji Thomas Urea nitrogen/Creatinine [Mass ratio] 18.2 mg/mg Normal [facility] Comment on above: Performed By: #### B MP #### [facility] [address] [place] [address] Dr. Reji Thomas PROTIMEon 06-04-2022 INR Coag (PPP) [Relative time] 2.51 {INR} Normal [facility] Comment on above: Performed By: #### B AIR TRAFFIC CONTROLLER, CMP, TSH, LIPID #### [facility] [address] [place] [address] Dr. Reji Thomas INR GUIDELINES SEE BELOW Normal [facility] Comment on above: Result Comment: SHY RED INR: 2.0 - 3.0 CONDITIONS NOT LISTED BELOW 2.5 - 3.5 FOR PROSTHETIC HEART VALVE REPLACEMENT 2.5 - 3.5 RECURRENT THROMBOSIS Performed By: #### B AIR TRAFFIC CONTROLLER, CMP, TSH, LIPID #### [facility] [address] [place] [address] Dr. Reji Thomas PT Coag (PPP) [Time] 25.5 s Critically high 9.0-11.6 [facility] Comment on above: Performed By: #### B AIR TRAFFIC CONTROLLER, CMP, TSH, LIPID #### [facility] [address] [place] [address] Dr. Reji Thomas BNPon 05-15-2022 Natriuretic peptide B (Bld) [Mass/Vol] 3661.0 pg/mL Critically high <=1,800.0 [facility] Comment on above: Performed By: #### B AIR TRAFFIC CONTROLLER, CMP, TSH, LIPID #### [facility] [address] [place] [address] Dr. Reji Thomas CBC AUTO DIFFon 05-15-2022 BASO # 0.1 103/ul Normal 0.0-0.1 [facility] Comment on above: Performed By: #### B MP #### [facility] [address] [address] [address] Reji Thomas Basophils/100 WBC (Bld) 1.1 % Normal 0.2-2.0 [facility] Comment on above: Performed By: #### B MP #### [facility] [address] [place] [address] Dr. Reji Thomas EO # 0.5 103/ul Normal 0.0-0.7 [facility] Comment on above: Performed By: #### B MP #### [facility] [address] [place] [address] Dr. Reji Thomas Eosinophils/100 WBC (Bld) 6.5 % Normal 0.9-7.0 [facility] Comment on above: Performed By: #### B MP #### [facility] [address] [place] [address] Dr. Reji Thomas Erythrocyte distribution width (RBC) [Ratio] 16.1 % Critically high 11.0-15.0 [facility] Comment on above: Performed By: #### B MP #### [facility] [address] [place] [address] Dr. Reji Thomas Hematocrit (Bld) [Volume fraction] 35.0 % Critically low 36.0-48.0 [facility] Comment on above: Performed By: #### B MP #### [facility] [address] [place] [address] Dr. Reji Thomas Hemoglobin (Bld) [Mass/Vol] 11.1 g/dL Critically low 12.0-16.0 [facility] Comment on above: Performed By: #### B MP #### [facility] [address] [place] [address] Dr. Reji Thomas IG # 0.02 10e3/ul Normal 0.00-0.03 [facility] Comment on above: Performed By: #### B MP #### [facility] [address] [place] [address] Dr. Reji Thomas IG % 0.3 % Normal 0.0-0.5 [facility] Comment on above: Performed By: #### B MP #### [facility] [address] [place] [address] Dr. Reji Thomas LYMPH # 1.6 103/ul Normal 1.2-3.8 [facility] Comment on above: Performed By: #### B MP #### [facility] [address] [place] [address] Dr. Reji Thomas Lymphocytes/100 WBC (Bld) 22.4 % Normal 20.5-60.0 [facility] Comment on above: Performed By: #### B MP #### [facility] [address] [place] [address] Dr. Reji Thomas MANUAL DIFF REQ NO Normal [facility] Comment on above: Performed By: #### B MP #### [facility] [address] [place] [address] Dr. Reji Thomas MCH (RBC) [Entitic mass] 26.4 pg Critically low 26.7-34.0 [facility] Comment on above: Performed By: #### B MP #### [facility] [address] [place] [address] Dr. Reji Thomas MCHC (RBC) [Mass/Vol] 31.7 g/dL Normal 29.9-35.2 [facility] Comment on above: Performed By: #### B MP #### [facility] [address] [place] [address] Dr. Reji Thomas MCV (RBC) [Entitic vol] 83.1 fL Normal 81.0-99.0 [facility] Comment on above: Performed By: #### B MP #### [facility] [address] [place] [address] Dr. Reji Thomas MONO # 0.9 103/ul Critically high 0.3-0.8 [facility] Comment on above: Performed By: #### B MP #### [facility] [address] [place] [address] Dr. Reji Thomas Monocytes/100 WBC (Bld) 12.1 % Critically high 1.7-12.0 [facility] Comment on above: Performed By: #### B MP #### [facility] [address] [place] [address] Dr. Reji Thomas NEUT # 4.1 103/ul Normal 1.4-6.5 [facility] Comment on above: Performed By: #### B MP #### [facility] [address] [place] [address] Dr. Reji Thomas Neutrophils/100 WBC (Bld) 57.6 % Normal 43.0-75.0 [facility] Comment on above: Performed By: #### B MP #### [facility] [address] [place] [address] Dr. Reji Thomas Platelet mean volume (Bld) [Entitic vol] 8.8 fL Critically low 9.5-13.5 [facility] Comment on above: Performed By: #### B MP #### [facility] [address] [place] [address] Dr. Reji Thomas PLT 253 103/ul Normal 150-450 [facility] Comment on above: Performed By: #### B MP #### [facility] [address] [place] [address] Dr. Reji Thomas RBC 4.21 106/ul Normal 4.20-5.40 [facility] Comment on above: Performed By: #### B MP #### [facility] [address] [place] [address] Dr. Reji Thomas WBC 7.1 103/ul Normal 4.0-11.0 [facility] Comment on above: Performed By: #### B MP #### [facility] [address] [place] [address] Dr. Reji Thomas PROF CHEM 8 (BAS METB)on Anion gap [Moles/Vol] 10.5 mmol/L Normal [facility] Comment on above: Performed By: #### B AIR TRAFFIC CONTROLLER, CMP, TSH, LIPID #### [facility] [address] [address] [address] Reji Thomas Calcium [Mass/Vol] 8.9 mg/dL Normal 8.5-10.1 [facility] Comment on above: Performed By: #### B AIR TRAFFIC CONTROLLER, CMP, TSH, LIPID #### [facility] [address] [address] [address] Reji Thomas Chloride [Moles/Vol] 104 mmol/L Normal 98-107 [facility] Comment on above: Performed By: #### B AIR TRAFFIC CONTROLLER, CMP, TSH, LIPID #### [facility] [address] [address] [address] Reji Thomas CO2 [Moles/Vol] 29.5 mmol/L Normal 21.0-32.0 [facility] Comment on above: Performed By: #### B AIR TRAFFIC CONTROLLER, CMP, TSH, LIPID #### [facility] [address] [place] [address] Dr. Reji Thomas Creatinine [Mass/Vol] 1.73 mg/dL Critically high 0.55-1.02 [facility] Comment on above: Performed By: #### B AIR TRAFFIC CONTROLLER, CMP, TSH, LIPID #### [facility] [address] [place] [address] Dr. Reji Thomas EGFR-AF LIBERIAN 34 mL/min/1.73m2 Critically low >=60 [facility] Comment on above: Performed By: #### B AIR TRAFFIC CONTROLLER, CMP, TSH, LIPID #### [facility] [address] [place] [address] Dr. Reji Thomas EGFR-NON AF LIBERIAN 28 mL/min/1.73m2 Critically low >=60 [facility] Comment on above: Performed By: #### B AIR TRAFFIC CONTROLLER, CMP, TSH, LIPID #### [facility] [address] [address] [address] Reji Thomas Glucose [Mass/Vol] 79 mg/dL Normal 74-106 [facility] Comment on above: Performed By: #### B AIR TRAFFIC CONTROLLER, CMP, TSH, LIPID #### [facility] [address] [place] [address] Dr. Reji Thomas Potassium [Moles/Vol] 4.0 mmol/L Normal 3.5-5.1 [facility] Comment on above: Performed By: #### B AIR TRAFFIC CONTROLLER, CMP, TSH, LIPID #### [facility] [address] [place] [address] Dr. Reji Thomas Sodium [Moles/Vol] 140 mmol/L Normal 136-145 [facility] Comment on above: Performed By: #### B AIR TRAFFIC CONTROLLER, CMP, TSH, LIPID #### [facility] [address] [place] [address] Dr. Reji Thomas Urea nitrogen [Mass/Vol] 22.0 mg/dL Critically high 7.0-18.0 [facility] Comment on above: Performed By: #### B AIR TRAFFIC CONTROLLER, CMP, TSH, LIPID #### [facility] [address] [place] [address] Dr. Reji Thomas Urea nitrogen/Creatinine [Mass ratio] 12.7 mg/mg Normal [facility] Comment on above: Performed By: #### B AIR TRAFFIC CONTROLLER, CMP, TSH, LIPID #### [facility] [address] [place] [address] Dr. Reji Thomas PROTIMEon 05-15-2022 INR Coag (PPP) [Relative time] 2.53 {INR} Normal [facility] Comment on above: Performed By: #### B AIR TRAFFIC CONTROLLER, CMP, TSH, LIPID #### [facility] [address] [place] [address] Dr. Reji Thomas INR GUIDELINES SEE BELOW Normal [facility] Comment on above: Result Comment: SHY RED INR: 2.0 - 3.0 CONDITIONS NOT LISTED BELOW 2.5 - 3.5 FOR PROSTHETIC HEART VALVE REPLACEMENT 2.5 - 3.5 RECURRENT THROMBOSIS Performed By: #### B AIR TRAFFIC CONTROLLER, CMP, TSH, LIPID #### [facility] [address] [place] [address] Dr. Reji Thomas PT Coag (PPP) [Time] 25.7 s Critically high 9.0-11.6 [facility] Comment on above: Performed By: #### B AIR TRAFFIC CONTROLLER, CMP, TSH, LIPID #### [facility] [address] [address] [address] Reji Thomas ECHOCARDIO M/2D COMPLETEon 0 05-04-2022 ECHOCARDIO M/2D COMPLETE Patient: INEZ JUAREZ Exam Date: 05/04/2022 : 1940 Gender:F Ordering : DR JENN PRADO M.D. Admission #: [id number] Family : Order #: [id number] CLICK HERE TO VIEW EXAM ECHOCARDIOGRAM REPORT [...] Area(A4C): 27.20 cm2 Left Atrium Systolic Volume(A2C): 353457 mm3 Left Atrium Systolic Volume(A4C): 19544 mm3 Mitral Valve MV E to A Ratio: 2.60 Deceleration [place]: 69529 mm/s2 Mitral Valve A-Wave Peak Velocity: 58.60 [...] Prado M.D. on 05/07/2022 at 11:39 Normal [facility] EVAN by IFAon 04-19-2022 Antinuclear Antibodies, IFA Positive Abnormal [facility] Comment on above: Result Comment: Nega tive <1:80 Borderline 1:80 Positive >1:80 Performed By: #### B AIR TRAFFIC CONTROLLER, CMP, TSH, LIPID #### [facility] [address] [address] [address] Reji Thomas Centriole Pattern Normal [facility] Comment on above: Performed By: #### B AIR TRAFFIC CONTROLLER, CMP, TSH, LIPID #### [facility] [address] [id number] Reji Thomas Centromere Pattern Normal [facility] Comment on above: Performed By: #### B AIR TRAFFIC CONTROLLER, CMP, TSH, LIPID #### [facility] [address] [place], [place] [address] Dr. Reji Thomas Homogeneous Pattern 1:320 Critically high [facility] Comment on above: Result Comment: ICAP nomenclature: AC-1 Performed By: #### B AIR TRAFFIC CONTROLLER, CMP, TSH, LIPID #### [facility] [address] [place], [place] [address] Dr. Reji Thomas Midbody Pattern Normal [facility] Comment on above: Performed By: #### B AIR TRAFFIC CONTROLLER, CMP, TSH, LIPID #### [facility] [address] [place], [place] [address] Dr. Reji Thomas Note: Comment Normal [facility] Comment on above: Result [...] titers Nucleosomes, Histones Drug-induced SLE Speckled Sm, OLAP DEVELOPER, SCL-70, SLE,MCTD,PSS (diffuse form), SS-A/SS-B Sjogrens Nucleolar SCL-70, PM-1/SCL High titers Scleroderma, PM/DM Centromere Centromere PSS (limited form) w/Crest syndrome variable Nuclear Dot [id number] Primary Biliary Cirrhosis Nuclear GP210, Primary Biliary Cirrhosis Membrane eleonora A,B,C Performed By: #### B AIR TRAFFIC CONTROLLER, CMP, TSH, LIPID #### [facility] [address] [place] [address] Dr. Reji Thomas Nuclear Dot Pattern Normal [facility] Comment on above: Performed By: #### B AIR TRAFFIC CONTROLLER, CMP, TSH, LIPID #### [facility] [address] [place] [address] Dr. Reji Thomas Nuclear Membrane Pattern Normal [facility] Comment on above: Performed By: #### B AIR TRAFFIC CONTROLLER, CMP, TSH, LIPID #### [facility] [address] [place] [address] Dr. Reji Thomas Nucleolar Pattern Normal [facility] Comment on above: Performed By: #### B AIR TRAFFIC CONTROLLER, CMP, TSH, LIPID #### [facility] [address] [address] [address] Reji Thomas PCNA Pattern Normal [facility] Comment on above: Performed By: #### B AIR TRAFFIC CONTROLLER, CMP, TSH, LIPID #### [facility] [address] [address] [address] Reji Thomas Speckled Pattern Normal [facility] Comment on above: Performed By: #### B AIR TRAFFIC CONTROLLER, CMP, TSH, LIPID #### [facility] [address] [address] [address] Reji Thomas Spindle Apparatus Pattern Normal [facility] Comment on above: Performed By: #### B AIR TRAFFIC CONTROLLER, CMP, TSH, LIPID #### [facility] [address] [address] [address] Reji Thomas ANCA (ANTINEUTROPHIL CYTOPLA MSMIC ABon 04-18-2022 Atypical pANCA <1:20 Normal Neg:<1:20 [facility] Comment on above: Result Comment: Seru m is slightly hemolyzed The atypical pANCA pattern has been observed in a significant percentage of patients with ulcerative colitis, primary sclerosing cholangitis and autoimmune hepatitis. Performed By: #### B MP #### [facility] [address] [address] [address] Reji Thomas Cytoplasmic (C-ANCA) <1:20 Normal Neg:<1:20 [facility] Comment on above: Result Comment: Seru m is slightly hemolyzed Performed By: #### B MP #### [facility] [address] [address] [address] Reji Thomas Perinuclear (P-ANCA) <1:20 Normal Neg:<1:20 [facility] Comment on above: Result Comment: Seru m is slightly hemolyzed The presence of positive fluorescence exhibiting P-ANCA or C-ANCA patterns alone is not specific for the diagnosis of Arlene's Granulomatosis (WG) or microscopic polyangiitis. Decisions about treatment should not be based solely on ANCA IFA results. The [employer] ANCA [employer] Consensus recommends follow up testing of positive sera with both MS-3 and MPO-ANCA enzyme immunoassays. As many as 5% serum samples are positive only by EIA. Ref. AM J Clin Pathol 1999;111:507-513. Performed By: #### B MP #### [facility] [address] [place] [address] Dr. Reji Thomas ANTISCLERODERMA ABon 022 Antiscleroderma-70 Antibodies 0.3 AI Normal 0.0-0.9 [facility] Comment on above: Performed By: #### B AIR TRAFFIC CONTROLLER, CMP, TSH, LIPID #### [facility] [address] [place] [address] Dr. Reji Thomas T3 UPTAKEon 04-18-2022 Free Thyroxine Index 1.8 Normal 1.2-4.9 [facility] Comment on above: Performed By: #### B AIR TRAFFIC CONTROLLER, CMP, TSH, LIPID #### [facility] [address] [place] [address] Dr. Reji Thomas T3 Uptake 23 % Critically low 24-39 [facility] Comment on above: Performed By: #### B AIR TRAFFIC CONTROLLER, CMP, TSH, LIPID #### [facility] [address] [place] [address] Dr. Reji Thomas T4 LABCORPon 04-18-2022 T4 [Mass/Vol] 7.8 ug/dL Normal 4.5-12.0 [facility] Comment on above: Performed By: #### B AIR TRAFFIC CONTROLLER, CMP, TSH, LIPID #### [facility] [address] [place] [address] Dr. Reji Thomas BNPon 04-16-2022 Natriuretic peptide B (Bld) [Mass/Vol] 2870.0 pg/mL Critically high <=1,800.0 [facility] Comment on above: Result Comment: repe ated Performed By: #### B AIR TRAFFIC CONTROLLER, CMP, TSH, LIPID #### [facility] [address] [place] [address] Dr. Reji Thomas CBC AUTO DIFFon 04-16-2022 BASO # 0.1 103/ul Normal 0.0-0.1 [facility] Comment on above: Performed By: #### B AIR TRAFFIC CONTROLLER, CMP, TSH, LIPID #### [facility] [address] [place] [address] Dr. Reji Thomas Basophils/100 WBC (Bld) 0.9 % Normal 0.2-2.0 [facility] Comment on above: Performed By: #### B AIR TRAFFIC CONTROLLER, CMP, TSH, LIPID #### [facility] [address] [place] [address] Dr. Reji Thomas EO # 0.3 103/ul Normal 0.0-0.7 [facility] Comment on above: Performed By: #### B AIR TRAFFIC CONTROLLER, CMP, TSH, LIPID #### [facility] [address] [place] [address] Dr. Reji Thomas Eosinophils/100 WBC (Bld) 3.9 % Normal 0.9-7.0 [facility] Comment on above: Performed By: #### B AIR TRAFFIC CONTROLLER, CMP, TSH, LIPID #### [facility] [address] [place] [address] Dr. Reji Thomas Erythrocyte distribution width (RBC) [Ratio] 15.9 % Critically high 11.0-15.0 [facility] Comment on above: Performed By: #### B AIR TRAFFIC CONTROLLER, CMP, TSH, LIPID #### [facility] [address] [place] [address] Dr. Reji Thomas Hematocrit (Bld) [Volume fraction] 38.1 % Normal 36.0-48.0 [facility] Comment on above: Performed By: #### B AIR TRAFFIC CONTROLLER, CMP, TSH, LIPID #### [facility] [address] [place] [address] Dr. Reji Thomas Hemoglobin (Bld) [Mass/Vol] 12.1 g/dL Normal 12.0-16.0 [facility] Comment on above: Performed By: #### B AIR TRAFFIC CONTROLLER, CMP, TSH, LIPID #### [facility] [address] [place] [address] Dr. Reji Thomas IG # 0.02 10e3/ul Normal 0.00-0.03 [facility] Comment on above: Performed By: #### B AIR TRAFFIC CONTROLLER, CMP, TSH, LIPID #### [facility] [address] [place] [address] Dr. Reji Thomas IG % 0.3 % Normal 0.0-0.5 [facility] Comment on above: Performed By: #### B AIR TRAFFIC CONTROLLER, CMP, TSH, LIPID #### [facility] [address] [place] [address] Dr. Reji Thomas LYMPH # 1.6 103/ul Normal 1.2-3.8 [facility] Comment on above: Performed By: #### B AIR TRAFFIC CONTROLLER, CMP, TSH, LIPID #### [facility] [address] [place] [address] Dr. Reji Thomas Lymphocytes/100 WBC (Bld) 22.6 % Normal 20.5-60.0 [facility] Comment on above: Performed By: #### B AIR TRAFFIC CONTROLLER, CMP, TSH, LIPID #### [facility] [address] [place] [address] Dr. Reji Thomas MANUAL DIFF REQ NO Normal [facility] Comment on above: Performed By: #### B AIR TRAFFIC CONTROLLER, CMP, TSH, LIPID #### [facility] [address] [place] [address] Dr. Reji Thomas MCH (RBC) [Entitic mass] 26.5 pg Critically low 26.7-34.0 [facility] Comment on above: Performed By: #### B AIR TRAFFIC CONTROLLER, CMP, TSH, LIPID #### [facility] [address] [place] [address] Dr. Reji Thomas MCHC (RBC) [Mass/Vol] 31.8 g/dL Normal 29.9-35.2 [facility] Comment on above: Performed By: #### B AIR TRAFFIC CONTROLLER, CMP, TSH, LIPID #### [facility] [address] [place] [address] Dr. Reji Thomas MCV (RBC) [Entitic vol] 83.4 fL Normal 81.0-99.0 [facility] Comment on above: Performed By: #### B AIR TRAFFIC CONTROLLER, CMP, TSH, LIPID #### [facility] [address] [place] [address] Dr. Reji Thomas MONO # 0.6 103/ul Normal 0.3-0.8 [facility] Comment on above: Performed By: #### B AIR TRAFFIC CONTROLLER, CMP, TSH, LIPID #### [facility] [address] [place], [place] [id number] Dr. Reji Thomas Monocytes/100 WBC (Bld) 9.3 % Normal 1.7-12.0 [facility] Comment on above: Performed By: #### B AIR TRAFFIC CONTROLLER, CMP, TSH, LIPID #### [facility] [address] [place] [address] Dr. Reji Thomas NEUT # 4.3 103/ul Normal 1.4-6.5 [facility] Comment on above: Performed By: #### B AIR TRAFFIC CONTROLLER, CMP, TSH, LIPID #### [facility] [address] [place] [address] Dr. Reji Thomas Neutrophils/100 WBC (Bld) 63.0 % Normal 43.0-75.0 [facility] Comment on above: Performed By: #### B AIR TRAFFIC CONTROLLER, CMP, TSH, LIPID #### [facility] [address] [place] [address] Dr. Reji Thomas Platelet mean volume (Bld) [Entitic vol] 9.2 fL Critically low 9.5-13.5 [facility] Comment on above: Performed By: #### B AIR TRAFFIC CONTROLLER, CMP, TSH, LIPID #### [facility] [address] [place] [address] Dr. Reji Thomas PLT 211 103/ul Normal 150-450 [facility] Comment on above: Performed By: #### B AIR TRAFFIC CONTROLLER, CMP, TSH, LIPID #### [facility] [address] [place] [address] Dr. Reji Thomas RBC 4.57 106/ul Normal 4.20-5.40 [facility] Comment on above: Performed By: #### B AIR TRAFFIC CONTROLLER, CMP, TSH, LIPID #### [facility] [address] [place] [address] Dr. Reji Thomas WBC 6.9 103/ul Normal 4.0-11.0 [facility] Comment on above: Performed By: #### B AIR TRAFFIC CONTROLLER, CMP, TSH, LIPID #### [facility] [address] [place] [address] Dr. Reji Thomas GLYCOHEMOGLOBIN A1Con 2021 ADA RECOMMENDATION SEE BELOW Normal [facility] Comment on above: Result Comment: ADA RECOMMENDED LIMIT 4.0 - 6.0 ADA THERAPEUTIC TARGET < 7.0 ACTION SUGGESTED > 7.0 Performed By: #### B AIR TRAFFIC CONTROLLER, CMP, TSH, LIPID #### [facility] [address] [address] [address] Reji Thomas Glucose [Mass/Vol] 100 mg/dL Normal [facility] Comment on above: Performed By: #### B AIR TRAFFIC CONTROLLER, CMP, TSH, LIPID #### [facility] [address] [address] [address] Reji Thomas HbA1c (Bld) [Mass fraction] 5.1 % Normal 4.5-6.2 [facility] Comment on above: Performed By: #### B AIR TRAFFIC CONTROLLER, CMP, TSH, LIPID #### [facility] [address] [place] [address] Dr. Reji Thomas IRONon 04-16-2022 Iron [Mass/Vol] 42.0 ug/dL Critically low 50.0-170.0 [facility] Comment on above: Performed By: #### B AIR TRAFFIC CONTROLLER, CMP, TSH, LIPID #### [facility] [address] [place] [address] Dr. Reji Thomas LIPID PROFILEon 04-16-2022 CHOL-HDL RATIO NORM SEE BELOW Normal [facility] Comment on above: Result Comment: 3.3 - 4.4 LOW RISK 4.4 - 7.1 AVERAGE RISK 7.1 - 11.0 MODERATE RISK >11.0 HIGH RISK Performed By: #### B AIR TRAFFIC CONTROLLER, CMP, TSH, LIPID #### [facility] [address] [address] [address] Reji Thomas Cholesterol [Mass/Vol] 176 mg/dL Normal <=200 [facility] Comment on above: Performed By: #### B AIR TRAFFIC CONTROLLER, CMP, TSH, LIPID #### [facility] [address] [address] [address] Reji Thomas Cholesterol in HDL [Mass/Vol] 52 mg/dL Normal 40-60 [facility] Comment on above: Performed By: #### B AIR TRAFFIC CONTROLLER, CMP, TSH, LIPID #### [facility] [address] [place] [address] Dr. Reji Thomas Cholesterol in LDL [Mass/Vol] 102.8 mg/dL Normal [facility] Comment on above: Performed By: #### B AIR TRAFFIC CONTROLLER, CMP, TSH, LIPID #### [facility] [address] [place] [address] Dr. Reji Thomas Cholesterol.total/Ch olesterol in HDL [Mass ratio] 3.4 {ratio} Normal [facility] Comment on above: Performed By: #### B AIR TRAFFIC CONTROLLER, CMP, TSH, LIPID #### [facility] [address] [place] [address] Dr. Reji Thomas HDL NORMAL > or = 60 mg/dl - LOW CARDIOVASCULAR RISK <40 mg/dl - HIGH CARDIOVASCULAR RISK Normal [facility] Comment on above: Performed By: #### B AIR TRAFFIC CONTROLLER, CMP, TSH, LIPID #### [facility] [address] [place] [address] Dr. Reji Thomas LDL CALC NORMAL SEE BELOW Normal [facility] Comment on above: Result Comment: <100 mg/dl OPTIMAL 100 - 129 mg/dl NEAR OR ABOVE OPTIMAL 130 - 159 mg/dl BORDERLINE HIGH 160 - 189 mg/dl HIGH >190 mg/dl VERY HIGH Performed By: #### B AIR TRAFFIC CONTROLLER, CMP, TSH, LIPID #### [facility] [address] [address] [address] Reji Thomas Triglyceride [Mass/Vol] 106 mg/dL Normal <=150 [facility] Comment on above: Performed By: #### B AIR TRAFFIC CONTROLLER, CMP, TSH, LIPID #### [facility] [address] [place] [address] Dr. Reji Thomas VLDL CALC 21.2 mg/dL Normal [facility] Comment on above: Performed By: #### B AIR TRAFFIC CONTROLLER, CMP, TSH, LIPID #### [facility] [address] [place] [address] Dr. Reji Thomas PROF 14(COMP METB)on 022 Albumin [Mass/Vol] 3.6 g/dL Normal 3.4-5.0 [facility] Comment on above: Performed By: #### B AIR TRAFFIC CONTROLLER, CMP, TSH, LIPID #### [facility] [address] [address] [address] Reji Thomas Albumin/Globulin [Mass ratio] 0.9 {ratio} Normal [facility] Comment on above: Performed By: #### B AIR TRAFFIC CONTROLLER, CMP, TSH, LIPID #### [facility] [address] [place] [address] Dr. Reji Thomas ALP [Catalytic activity/Vol] 62 U/L Normal 46-116 [facility] Comment on above: Performed By: #### B AIR TRAFFIC CONTROLLER, CMP, TSH, LIPID #### [facility] [address] [place] [address] Dr. Reji Thomas ALT [Catalytic activity/Vol] 14 U/L Normal 14-59 [facility] Comment on above: Performed By: #### B AIR TRAFFIC CONTROLLER, CMP, TSH, LIPID #### [facility] [address] [place] [address] Dr. Reji Thomas Anion gap [Moles/Vol] 14.5 mmol/L Normal [facility] Comment on above: Performed By: #### B AIR TRAFFIC CONTROLLER, CMP, TSH, LIPID #### [facility] [address] [place] [address] Dr. Reji Thomas AST [Catalytic activity/Vol] 17 U/L Normal 15-37 [facility] Comment on above: Performed By: #### B AIR TRAFFIC CONTROLLER, CMP, TSH, LIPID #### [facility] [address] [place] [address] Dr. Reji Thomas Bilirubin [Mass/Vol] 0.6 mg/dL Normal 0.2-1.0 [facility] Comment on above: Performed By: #### B AIR TRAFFIC CONTROLLER, CMP, TSH, LIPID #### [facility] [address] [place] [address] Dr. Reji Thomas Calcium [Mass/Vol] 8.8 mg/dL Normal 8.5-10.1 [facility] Comment on above: Performed By: #### B AIR TRAFFIC CONTROLLER, CMP, TSH, LIPID #### [facility] [address] [place] [address] Dr. Reji Thomas Chloride [Moles/Vol] 102 mmol/L Normal 98-107 [facility] Comment on above: Performed By: #### B AIR TRAFFIC CONTROLLER, CMP, TSH, LIPID #### [facility] [address] [place] [address] Dr. Reji Thomas CO2 [Moles/Vol] 26.3 mmol/L Normal 21.0-32.0 [facility] Comment on above: Performed By: #### B AIR TRAFFIC CONTROLLER, CMP, TSH, LIPID #### [facility] [address] [place] [address] Dr. Reji Thomas Creatinine [Mass/Vol] 1.76 mg/dL Critically high 0.55-1.02 [facility] Comment on above: Performed By: #### B AIR TRAFFIC CONTROLLER, CMP, TSH, LIPID #### [facility] [address] [place] [address] Dr. Reji Thomas EGFR-AF LIBERIAN 33 mL/min/1.73m2 Critically low >=60 [facility] Comment on above: Performed By: #### B AIR TRAFFIC CONTROLLER, CMP, TSH, LIPID #### [facility] [address] [place] [address] Dr. Reji Thomas EGFR-NON AF LIBERIAN 28 mL/min/1.73m2 Critically low >=60 [facility] Comment on above: Performed By: #### B AIR TRAFFIC CONTROLLER, CMP, TSH, LIPID #### [facility] [address] [place] [address] Dr. Reji Thomas Globulin (S) [Mass/Vol] 4.2 g/dL Normal [facility] Comment on above: Performed By: #### B AIR TRAFFIC CONTROLLER, CMP, TSH, LIPID #### [facility] [address] [place] [address] Dr. Reji Thomas Glucose [Mass/Vol] 81 mg/dL Normal 74-106 [facility] Comment on above: Performed By: #### B AIR TRAFFIC CONTROLLER, CMP, TSH, LIPID #### [facility] [address] [place] [address] Dr. Reji Thomas Potassium [Moles/Vol] 3.8 mmol/L Normal 3.5-5.1 [facility] Comment on above: Performed By: #### B AIR TRAFFIC CONTROLLER, CMP, TSH, LIPID #### [facility] [address] [place] [address] Dr. Reji Thomas Protein [Mass/Vol] 7.8 g/dL Normal 6.4-8.2 [facility] Comment on above: Performed By: #### B AIR TRAFFIC CONTROLLER, CMP, TSH, LIPID #### [facility] [address] [place] [address] Dr. Reji Thomas Sodium [Moles/Vol] 139 mmol/L Normal 136-145 [facility] Comment on above: Performed By: #### B AIR TRAFFIC CONTROLLER, CMP, TSH, LIPID #### [facility] [address] [place] [address] Dr. Reji Thomas Urea nitrogen [Mass/Vol] 27.0 mg/dL Critically high 7.0-18.0 [facility] Comment on above: Performed By: #### B AIR TRAFFIC CONTROLLER, CMP, TSH, LIPID #### [facility] [address] [place] [address] Dr. Reji Thomas Urea nitrogen/Creatinine [Mass ratio] 15.3 mg/mg Normal [facility] Comment on above: Performed By: #### B AIR TRAFFIC CONTROLLER, CMP, TSH, LIPID #### [facility] [address] [place] [address] Dr. Reji Thomas PROTIMEon 04-16-2022 INR Coag (PPP) [Relative time] 1.92 {INR} Normal [facility] Comment on above: Performed By: #### B AIR TRAFFIC CONTROLLER, CMP, TSH, LIPID #### [facility] [address] [place] [address] Dr. Reji Thomas INR GUIDELINES SEE BELOW Normal [facility] Comment on above: Result Comment: SHY RED INR: 2.0 - 3.0 CONDITIONS NOT LISTED BELOW 2.5 - 3.5 FOR PROSTHETIC HEART VALVE REPLACEMENT 2.5 - 3.5 RECURRENT THROMBOSIS Performed By: #### B AIR TRAFFIC CONTROLLER, CMP, TSH, LIPID #### [facility] [address] [place] [address] Dr. Reji Thomas PT Coag (PPP) [Time] 19.9 s Critically high 9.0-11.6 [facility] Comment on above: Performed By: #### B AIR TRAFFIC CONTROLLER, CMP, TSH, LIPID #### [facility] [address] [address] [address] Reji Thomas SED [facility] SED RATE 37 mm/hr Critically high <=30 [facility] Comment on above: Performed By: #### B AIR TRAFFIC CONTROLLER, CMP, TSH, LIPID #### [facility] [address] [place] [address] Dr. Reji Thomas TSHon 04-16-2022 TSH 1.941 uIU/mL Normal 0.358-3.740 [facility] Comment on above: Performed By: #### B AIR TRAFFIC CONTROLLER, CMP, TSH, LIPID #### [facility] [address] [place] [address] Dr. Reji Thomas TSH RANGE SEE BELOW Normal [facility] Comment on above: Result Comment: <0.3 4 UIU/ml HYPERTHYROID 0.34-5.60 UIU/ml EUTHYROID >5.60 UIU/ml HYPOTHYROID Performed By: #### B AIR TRAFFIC CONTROLLER, CMP, TSH, LIPID #### [facility] [address] [place] [address] Dr. Reji Thomas VITAMIN D 25 OHon 04-16-2022 VIT D 25-OH 56.6 ng/mL Normal [facility] Comment on above: Performed By: #### B AIR TRAFFIC CONTROLLER, CMP, TSH, LIPID #### [facility] [address] [place] [address] Dr. Reji Thomas VIT D RANGES SEE BELOW Normal [facility] Comment on above: Result Comment: <20 ng/mL Vit D deficient 20 - <30 ng/mL Vit D insufficient 30 - 100 ng/mL Vit D sufficient >100 ng/mL Potential Toxicity Performed By: #### B AIR TRAFFIC CONTROLLER, CMP, TSH, LIPID #### [facility] [address] [place] [address] Dr. Reji Thomas Cardiovascular Lab Reporton 11-02-2021 Cardiovascular Lab Report [facility] Patient Name: Inez Juarez MR #: [id number] [facility] Physician: Jenn Prado M.D. Department of Service Date: 11/01/2021 Medicine Birthdate: 1940 Division of Room #: Cardiology Adult Cardiovascular Services [facility] [address] [place] [address] Cardiovascular Laboratory Report INDICATION: The patient is [...] She signed consent. 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 The right neck area was prepped and draped in usual fashion. Micropuncture technique and ultrasound guidance were used for access in the right internal jugular vein. A 6-Citizen Of [place] x 11 cm sheath was placed. A 6-Citizen Of [place] Hernández catheter was used for heart catheterization [...] Prado M.D. Date Trans: 11/01/2021 11:22 P/alondra [id number] cc: Bruce Rizvi M.D. [address] [facility] [place] [facility] [id number] Normal [facility] Cardiovascular Lab Reporton 06-02-2021 Cardiovascular Lab Report [facility] Patient Name: Inez Juarez MR #: [id number] [facility] Physician: Jenn Prado M.D. Department of Service Date: 06/02/2021 Medicine Birthdate: 1940 Division of Room #: CC Cardiology Adult Cardiovascular Services [facility] [address] [facility]. [place] [address] Cardiovascular Laboratory Report INDICATION: The patient is [...] the informed consent. 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 The right neck area was prepped and draped in usual fashion. Using micropuncture technique and ultrasound guidance, the right internal jugular vein was accessed and a 6-Citizen Of [place] x 11 cm sheath was placed. A 6-Citizen Of [place] Hernández catheter was used for heart catheterization [...] Prado M.D. Date Trans: 06/02/2021 02:42 P/alondra [id number] cc: Bruce Rizvi M.D. [address] [place] [facility] [phone] [facility] Encounters Encounter Date Encounter Type Care Provider Facility Start: 07-03-2024 End: 07-03-2024 ambulatory [facility] Start: 12-13-2023 End: 12-13-2023 ambulatory [facility] Start: 10-30-2023 End: 10-30-2023 ambulatory [facility] Start: 10-22-2023 End: 10-22-2023 ambulatory ANTONY LUIS [facility] Start: 03-22-2023 End: 03-23-[address] BRUCE [...] Start: 11-01-2021 End: 11-02-2021 ambulatory PROVIDER UNKNOWN Facility:[facility] Start: 06-02-2021 End: 06-03-2021 ambulatory PROVIDER UNKNOWN Facility:[facility] Payers Date Payer Category Payer Medicare [id number] 1961 Medicare [id number] 1961 Medicare [id number] 1961 Self-pay [id number] 1940 Unknown [id number] 2.16.8 [id number] 1940 Unknown [id number] 2.16.8 40.1.667614.3.579.2.647 1938 Unknown [id number] 2.16.84 0.1.198805.3.579.2.593 1940 Unknown [id number] 2.16.84 0.1.092128.3.579.2.593 1938 Unknown [id number] 2.16.84 0.1.655873.3.579.2.593 1938 Unknown [id number] 2.16.84 0.1.888323.3.579.2.593 1938 Unknown [id number] 2.16.84 0.1.973843.3.579.2.593 1938 Unknown [id number] 2.16.84 0.1.764175.3.579.2.593 1938 Unknown [id number] 2.16.84 0.1.744878.3.579.2.593 1938 Unknown [id number] 2.16.84 0.1.106877.3.579.2.593 1938 Unknown [id number] 2.16.84 0.1.265136.3.579.2.593 1938 Unknown [id number] 2.16.84 0.1.407454.3.579.2.593 1938 Unknown [id number] 2.16.84 0.1.439725.3.579.2.593 1938 Unknown [id number] 2.16.84 0.1.009492.3.579.2.593 1938 Unknown [id number] 2.16.84 0.1.247200.3.579.2.593 1938 Unknown [id number] 2.16.84 0.1.328809.3.579.2.593 1938 Unknown [id number] 2.16.84 0.1.532775.3.579.2.593 1938 Unknown [id number] 2.16.84 0.1.837669.3.579.2.593 1938 Unknown [id number] 2.16.84 0.1.378356.3.579.2.593 1938 Unknown [id number] 2.16.84 0.1.442823.3.579.2.593 1938 Unknown [id number] 2.16.84 0.1.089301.3.579.2.593 Private Health Insurance MEB [id number] Progress note 07-03-2024 Note Date & Type Note Facility 07-03-2024 Note [facility] Petrona Juarez is a 84 [...] Pulse 50 Ht (more content not included)... [facility] Progress note 12-13-2023 Note Date & Type Note Facility 12-13-2023 Note [facility] Petrona Juarez is a 83 [...] Nose: Nose james (more content not included)... [facility] Progress note 10-30-2023 Note Date & Type Note Facility 10-30-2023 Note [facility] Subjective Ienz Juarez is a 83 y.o. year old [...] Murmur heard. Systol (more content not included)... 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 Additional Equipment Requests [facility] Clinical Note 10-15-2023 Note Date & Type Note Facility 10-15-[address] Smith regarding warfarin. Dr Smith requested warfarin to be held for 3 days prior to procedure. [facility] Progress note 09-19-2023 Note Date & Type Note Facility 09-19-2023 Note [facility] Summary Purpose Family History No Family History Records FoundNo Family History Records FoundNo Family History Records FoundNo Family History Records Found Advance Directives No Advanced Directives Records FoundNo Advanced Directives Records FoundNo Advanced Directives Records FoundNo Advanced Directives Records Found Additional Source Comments INFORMATION SOURCE (unrecogn ized section and content) DATE CREATED AUTHOR 11/03/2021 [facility] DATE CREATED AUTHOR AUTHOR'S ORGANIZ ATION 07/05/2022 [facility] DATE CREATED AUTHOR AUTHOR'S ORGANIZ ATION 03/23/2023 [facility] DATE CREATED AUTHOR AUTHOR'S ORGANIZ ATION 07/05/2024 [facility] FOR RECORDS PERTAINING TO PATIENTS [...] BE BASED ON THE PRIMARY CLINICAL RECORDS. [employer] [facility]. provides no warranty or guarantee of the accuracy or completeness of information in this document.
== END 2025-06-09 12:38 | disposition home or self-care (01) ==
LOC: CARD 12:37
PROVIDERS: PCP Family Medicine; Visit Provider Internal Medicine Interventional Cardiology
DX: I27.20 Pulmonary hypertension, unspecified (principal); I35.0 Nonrheumatic aortic (valve) stenosis
CPT/HCPCS: 36415; 85610; 93306

== ENCOUNTER 2025-06-09 12:41 | Outpatient (OUT) | payer MEDICARE, SELFPAY ==
[2025-06-09 13:31] LABS: INR 3.11; Prothrombin Time 29.5 sec (9.0-11.6)
== END 2025-06-09 12:42 | disposition home or self-care (01) ==
PROVIDERS: PCP Family Medicine; Visit Provider Family Medicine
DX: I35.0 Nonrheumatic aortic (valve) stenosis (principal)
CPT/HCPCS: 36415; 85610

== ENCOUNTER 2025-07-08 15:16 | Outpatient (OUT) | payer MEDICARE, SELFPAY ==
--- OUTSIDE RECORDS SUMMARY | 2025-07-08 15:44 | XMS_ITS | CCD ---
Author Organization [facility] Care Team Providers Care Body Shop Technician Name Role Phone UNKNOWN, PROVIDER Attending [...] MOUKARBEL, DR BARAJAS Admitting Unavailable MOUKARBEL, DR BRAAJAS Consulting Unavailable HOY ., DR BARRERA Primary [...] Chronic kidney disease (2 sources) Chronic kidney disease, stage 4 (severe); Translations: [Chronic kidney disease, stage 4 (severe)] Onset: 08-15-2022 Chronic Chronic kidney disease (2 sources) Chronic kidney disease; Translations: [Chronic kidney disease, stage 3b] Onset: 08-15-2022 Congestive heart failure; nonhypertensive (7 sources) Chronic diastolic (congestive) heart failure; Translations: [CHRONIC DIASTOLIC HEART FAILURE] Onset: 07-13-2022 Chronic Disorders of lipid metabolism [...] 04-16-2022 Episodic Other aftercare (4 sources) Other fdc (current) drug therapy; Translations: [OTH HALFWAY CURRENT DRUG THERAPY] Onset: 06-04-2022 Episodic Other [...] Value Interpretation Reference Range Facility Office Visiton 06-28-2025 Follow-up visit [id number] Inez Juarez 1940 Date Provider Department Center 06/28/2025 JENN AMANDA Family History Problem Relation Age of Onset Hypertension Mother Coronary artery disease Father Hypertension Father Family Status - Relation Status Age at Mother Father Level of Service:89933 DC OFFICE/OUTPATIENT ESTABLISHED MOD MDM 30 MIN Normal [facility] Orders Onlyon 06-10-2025 Orders Only [id number] Inez Juaerz 1940 Provider Department Center 06/10/2025 [id number], [facility] LAURENCE Acuña Family History Problem Relation Age of Onset Hypertension Mother Coronary artery disease Father Hypertension Father Family Status - Relation Status Age at Mother Father Normal [facility] Office Visiton 07-03-2024 Follow-up visit [id number] Inez Juarez 1940 [facility] Provider Department Center 07/03/2024 JENN AMANDA Family History Problem Relation Age of Onset Hypertension Mother Coronary artery disease Father Hypertension Father Family Status - Relation Status Age at Mother Father Level of Service:44536 DC OFFICE/OUTPATIENT ESTABLISHED LOW MDM 20 MIN Normal [facility] BNPon 03-22-2023 Natriuretic peptide B (Bld) [Mass/Vol] 1423.0 pg/mL Normal <=1,800.0 [facility] Comment on above: Performed By: #### B CUSTOMER SALES ADVISOR, CMP, TSH, LIPID #### [facility] [address] [place] [address] Dr. Reji Thomas CBC AUTO DIFFon 03-22-2023 BASO # 0.1 103/ul Normal 0.0-0.1 [facility] Comment on above: Performed By: #### B MP #### [facility] [address] [place] [address] Dr. Reji Thomas Basophils/100 WBC (Bld) 1.0 % Normal 0.2-2.0 [facility] Comment on above: Performed By: #### B MP #### [facility] [address] [place] [address] Dr. Reji Thomas EO # 0.2 103/ul Normal 0.0-0.7 [facility] Comment on above: Performed By: #### B MP #### [facility] [address] [place] [address] Dr. Reji Thomas Eosinophils/100 WBC (Bld) 3.3 % Normal 0.9-7.0 [facility] Comment on above: Performed By: #### B MP #### [facility] [address] [place] [address] Dr. Reji Thomas Erythrocyte distribution width (RBC) [Ratio] 15.4 % Critically high 11.0-15.0 [facility] Comment on above: Performed By: #### B MP #### [facility] [address] [place] [address] Dr. Reji Thomas Hematocrit (Bld) [Volume fraction] 35.2 % Critically low 36.0-48.0 [facility] Comment on above: Performed By: #### B MP #### [facility] [address] [place] [address] Dr. Reji Thomas Hemoglobin (Bld) [Mass/Vol] 11.4 g/dL Critically low 12.0-16.0 [facility] Comment on above: Performed By: #### B MP #### [facility] [address] [address] [address] Reji Thomas IG # 0.02 10e3/ul Normal 0.00-0.03 [facility] Comment on above: Performed By: #### B MP #### [facility] [address] [place] [address] Dr. Reji hTomas IG % 0.3 % Normal 0.0-0.5 [facility] Comment on above: Performed By: #### B MP #### [facility] [address] [place] [address] Dr. Reji Thomas LYMPH # 1.4 103/ul Normal 1.2-3.8 [facility] Comment on above: Performed By: #### B MP #### [facility] [address] [place] [address] Dr. Reji Thomas Lymphocytes/100 WBC (Bld) 22.6 % Normal 20.5-60.0 [facility] Comment on above: Performed By: #### B MP #### [facility] [address] [place] [address] Dr. Reji Thomas MANUAL DIFF REQ NO Normal [facility] Comment on above: Performed By: #### B MP #### [facility] [address] [place] [address] Dr. Reji Thomas MCH (RBC) [Entitic mass] 27.0 pg Normal 26.7-34.0 [facility] Comment on above: Performed By: #### B MP #### [facility] [address] [place] [address] Dr. Reji Thomas MCHC (RBC) [Mass/Vol] 32.4 g/dL Normal 29.9-35.2 [facility] Comment on above: Performed By: #### B MP #### [facility] [address] [place] [address] Dr. Reji Thomas MCV (RBC) [Entitic vol] 83.2 fL Normal 81.0-99.0 [facility] Comment on above: Performed By: #### B MP #### [facility] [address] [address] [address] Reji Thomas MONO # 0.5 103/ul Normal 0.3-0.8 [facility] Comment on above: Performed By: #### B MP #### [facility] [address] [place] [address] Dr. Reji Thomas Monocytes/100 WBC (Bld) 8.5 % Normal 1.7-12.0 [facility] Comment on above: Performed By: #### B MP #### [facility] [address] [place] [address] Dr. Reji Thomas NEUT # 4.0 103/ul Normal 1.4-6.5 [facility] Comment on above: Performed By: #### B MP #### [facility] [address] [place] [address] Dr. Reji Thomas Neutrophils/100 WBC (Bld) 64.3 % Normal 43.0-75.0 [facility] Comment on above: Performed By: #### B MP #### [facility] [address] [place] [address] Dr. Reji Thomas Platelet mean volume (Bld) [Entitic vol] 8.9 fL Critically low 9.5-13.5 [facility] Comment on above: Performed By: #### B MP #### [facility] [address] [place] [address] Dr. Reji Thomas PLT 226 103/ul Normal 150-450 [facility] Comment on above: Performed By: #### B MP #### [facility] [address] [place] [address] Dr. Reji Thomas RBC 4.23 106/ul Normal 4.20-5.40 [facility] Comment on above: Performed By: #### B MP #### [facility] [address] [place] [address] Dr. Reji Thomas WBC 6.3 103/ul Normal 4.0-11.0 [facility] Comment on above: Performed By: #### B MP #### [facility] [address] [place] [address] Dr. Reji Thomas FREE THYROXINE INDEX T7on FTI 2.40 Normal 1.30-4.50 [facility] Comment on above: Performed By: #### B CUSTOMER SALES ADVISOR, CMP, TSH, LIPID #### [facility] [address] [address] [address] Reji Thomas T3U 32.0 % Normal 30.0-39.0 [facility] Comment on above: Performed By: #### B CUSTOMER SALES ADVISOR, CMP, TSH, LIPID #### [facility] [address] [address] [address] Reji Thomas T4 [Mass/Vol] 7.50 ug/dL Normal 4.80-13.90 [facility] Comment on above: Performed By: #### B CUSTOMER SALES ADVISOR, CMP, TSH, LIPID #### [facility] [address] [place] [address] Dr. Reji Thomas GLYCOHEMOGLOBIN A1Con 2022 ADA RECOMMENDATION SEE BELOW Normal [facility] Comment on above: Result Comment: ADA RECOMMENDED LIMIT 4.0 - 6.0 ADA THERAPEUTIC TARGET < 7.0 ACTION SUGGESTED > 7.0 Performed By: #### B CUSTOMER SALES ADVISOR, CMP, TSH, LIPID #### [facility] [address] [address] [address] Reji Thomas Glucose [Mass/Vol] 97 mg/dL Normal [facility] Comment on above: Performed By: #### B CUSTOMER SALES ADVISOR, CMP, TSH, LIPID #### [facility] [address] [address] [address] eRji Thomas HbA1c (Bld) [Mass fraction] 5.0 % Normal 4.5-6.2 [facility] Comment on above: Performed By: #### B CUSTOMER SALES ADVISOR, CMP, TSH, LIPID #### [facility] [address] [address] [address] Reji Thomas IRONon 03-22-2023 Iron [Mass/Vol] 47.0 ug/dL Critically low 50.0-170.0 [facility] Comment on above: Performed By: #### B CUSTOMER SALES ADVISOR, CMP, TSH, LIPID #### [facility] [address] [place] [address] Dr. Reji Thomas LIPID PROFILEon 03-22-2023 CHOL-HDL RATIO NORM SEE BELOW Normal [facility] Comment on above: Result Comment: 3.3 - 4.4 LOW RISK 4.4 - 7.1 AVERAGE RISK 7.1 - 11.0 MODERATE RISK >11.0 HIGH RISK Performed By: #### M G, TSH, LIPID, T7, CMP, BNP #### [facility] [address] [address] [address] Reji Thomas Cholesterol [Mass/Vol] 188 mg/dL Normal <=200 [facility] Comment on above: Performed By: #### M G, TSH, LIPID, T7, CMP, BNP #### [facility] [address] [address] [address] Reji Thomas Cholesterol in HDL [Mass/Vol] 53 mg/dL Normal 40-60 [facility] Comment on above: Performed By: #### M G, TSH, LIPID, T7, CMP, BNP #### [facility] [address] [address] [address] Reji Thomas Cholesterol in LDL [Mass/Vol] 111.6 mg/dL Normal [facility] Comment on above: Performed By: #### M G, TSH, LIPID, T7, CMP, BNP #### [facility] [address] [address] [address] Reji Thomas Cholesterol.total/Ch olesterol in HDL [Mass ratio] 3.5 {ratio} Normal [facility] Comment on above: Performed By: #### M G, TSH, LIPID, T7, CMP, BNP #### [facility] [address] [address] [address] Reji Thomas HDL NORMAL > or = 60 mg/dl - LOW CARDIOVASCULAR RISK <40 mg/dl - HIGH CARDIOVASCULAR RISK Normal [facility] Comment on above: Performed By: #### M G, TSH, LIPID, T7, CMP, BNP #### [facility] [address] [address] [address] Reji Thomas LDL CALC NORMAL SEE BELOW Normal [facility] Comment on above: Result Comment: <100 mg/dl OPTIMAL 100 - 129 mg/dl NEAR OR ABOVE OPTIMAL 130 - 159 mg/dl BORDERLINE HIGH 160 - 189 mg/dl HIGH >190 mg/dl VERY HIGH Performed By: #### M G, TSH, LIPID, T7, CMP, BNP #### [facility] [address] [address] [address] Reji Thomas Triglyceride [Mass/Vol] 117 mg/dL Normal <=150 [facility] Comment on above: Performed By: #### M G, TSH, LIPID, T7, CMP, BNP #### [facility] [address] [address] [address] Reji Thomas VLDL CALC 23.4 mg/dL Normal [facility] Comment on above: Performed By: #### M G, TSH, LIPID, T7, CMP, BNP #### [facility] [address] [place] [address] Dr. Reji Thomas MAGNESIUMon 03-22-2023 Magnesium [Mass/Vol] 2.4 mg/dL Normal 1.8-2.4 [facility] Comment on above: Performed By: #### B CUSTOMER SALES ADVISOR, CMP, TSH, LIPID #### [facility] [address] [place] [address] Dr. Reji Thomas PROF 14(COMP METB)on 023 Albumin [Mass/Vol] 3.4 g/dL Normal 3.4-5.0 [facility] Comment on above: Performed By: #### M G, TSH, LIPID, T7, CMP, BNP #### [facility] [address] [address] [address] Reji Thomas Albumin/Globulin [Mass ratio] 0.8 {ratio} Normal [facility] Comment on above: Performed By: #### M G, TSH, LIPID, T7, CMP, BNP #### [facility] [address] [address] [address] Reji Thomas ALP [Catalytic activity/Vol] 61 U/L Normal 46-116 [facility] Comment on above: Performed By: #### M G, TSH, LIPID, T7, CMP, BNP #### [facility] [address] [address] [address] Reji Thomas ALT [Catalytic activity/Vol] 15 U/L Normal 14-59 [facility] Comment on above: Performed By: #### M G, TSH, LIPID, T7, CMP, BNP #### [facility] [address] [place] [address] Dr. Reji Thomas Anion gap [Moles/Vol] 13.1 mmol/L Normal [facility] Comment on above: Performed By: #### M G, TSH, LIPID, T7, CMP, BNP #### [facility] [address] [address] [address] Reji Thomas AST [Catalytic activity/Vol] 13 U/L Critically low 15-37 [facility] Comment on above: Performed By: #### M G, TSH, LIPID, T7, CMP, BNP #### [facility] [address] [place] [address] Dr. Reji Thomas Bilirubin [Mass/Vol] 0.4 mg/dL Normal 0.2-1.0 [facility] Comment on above: Performed By: #### M G, TSH, LIPID, T7, CMP, BNP #### [facility] [address] [place] [address] Dr. Reji Thomas Calcium [Mass/Vol] 8.5 mg/dL Normal 8.5-10.1 [facility] Comment on above: Performed By: #### M G, TSH, LIPID, T7, CMP, BNP #### [facility] [address] [place] [address] Dr. Reji Thomas Chloride [Moles/Vol] 106 mmol/L Normal 98-107 [facility] Comment on above: Performed By: #### M G, TSH, LIPID, T7, CMP, BNP #### [facility] [address] [place] [address] Dr. Reji Thomas CO2 [Moles/Vol] 27.6 mmol/L Normal 21.0-32.0 [facility] Comment on above: Performed By: #### M G, TSH, LIPID, T7, CMP, BNP #### [facility] [address] [address] [address] Reji Thomas Creatinine [Mass/Vol] 2.32 mg/dL Critically high 0.55-1.02 [facility] Comment on above: Performed By: #### M G, TSH, LIPID, T7, CMP, BNP #### [facility] [address] [place] [address] Dr. Reji Thomas EGFR-AF BOLIVIAN 24 mL/min/1.73m2 Critically low >=60 [facility] Comment on above: Performed By: #### M G, TSH, LIPID, T7, CMP, BNP #### [facility] [address] [address] [address] Reji Thomas EGFR-NON AF BOLIVIAN 20 mL/min/1.73m2 Critically low >=60 [facility] Comment on above: Performed By: #### M G, TSH, LIPID, T7, CMP, BNP #### [facility] [address] [place] [address] Dr. Reji Thomas Globulin (S) [Mass/Vol] 4.3 g/dL Normal [facility] Comment on above: Performed By: #### M G, TSH, LIPID, T7, CMP, BNP #### [facility] [address] [place] [address] Dr. Reji Thomas Glucose [Mass/Vol] 88 mg/dL Normal 74-106 [facility] Comment on above: Performed By: #### M G, TSH, LIPID, T7, CMP, BNP #### [facility] [address] [place] [address] Dr. Reji Thomas Potassium [Moles/Vol] 4.7 mmol/L Normal 3.5-5.1 [facility] Comment on above: Performed By: #### M G, TSH, LIPID, T7, CMP, BNP #### [facility] [address] [place] [address] Dr. Reji Thomas Protein [Mass/Vol] 7.7 g/dL Normal 6.4-8.2 [facility] Comment on above: Performed By: #### M G, TSH, LIPID, T7, CMP, BNP #### [facility] [address] [place] [address] Dr. Reji Thomas Sodium [Moles/Vol] 142 mmol/L Normal 136-145 [facility] Comment on above: Performed By: #### M G, TSH, LIPID, T7, CMP, BNP #### [facility] [address] [place] [address] Dr. Reji Thomas Urea nitrogen [Mass/Vol] 38.0 mg/dL Critically high 7.0-18.0 [facility] Comment on above: Performed By: #### M G, TSH, LIPID, T7, CMP, BNP #### [facility] [address] [place] [address] Dr. Reji Thomas Urea nitrogen/Creatinine [Mass ratio] 16.4 mg/mg Normal [facility] Comment on above: Performed By: #### M G, TSH, LIPID, T7, CMP, BNP #### [facility] [address] [place] [address] Dr. Reji Thomas PROTIMEon 03-22-2023 INR Coag (PPP) [Relative time] 1.98 {INR} Normal [facility] Comment on above: Performed By: #### P T #### [facility] [address] [place] [address] Dr. Reji Thomas INR GUIDELINES SEE BELOW Normal [facility] Comment on above: Result Comment: SHY RED INR: 2.0 - 3.0 CONDITIONS NOT LISTED BELOW 2.5 - 3.5 FOR PROSTHETIC HEART VALVE REPLACEMENT 2.5 - 3.5 RECURRENT THROMBOSIS Performed By: #### P T #### [facility] [address] [place] [address] Dr. Reji Thomas PT Coag (PPP) [Time] 20.2 s Critically high 9.0-11.6 [facility] Comment on above: Performed By: #### P T #### [facility] [address] [place] [address] Dr. Reji Thomas TSHon 03-22-2023 TSH 2.265 uIU/mL Normal 0.358-3.740 [facility] Comment on above: Performed By: #### B CUSTOMER SALES ADVISOR, CMP, TSH, LIPID #### [facility] [address] [place] [address] Dr. Reji Thomas VITAMIN D 25 OHon 03-22-2023 VIT D 25-OH 53.1 ng/mL Normal [facility] Comment on above: Performed By: #### B MP #### [facility] [address] [place] [address] Dr. Reji Thomas VIT D RANGES SEE BELOW Normal [facility] Comment on above: Result Comment: <20 ng/mL Vit D deficient 20 - <30 ng/mL Vit D insufficient 30 - 100 ng/mL Vit D sufficient >100 ng/mL Potential Toxicity Performed By: #### B MP #### [facility] [address] [place] [address] Dr. Reji Thomas PROTIMEon 02-22-2023 INR Coag (PPP) [Relative time] 2.22 {INR} Normal [facility] Comment on above: Performed By: #### B CUSTOMER SALES ADVISOR, CMP, TSH, LIPID #### [facility] [address] [place] [address] Dr. Reji Thomas INR GUIDELINES SEE BELOW Normal [facility] Comment on above: Result Comment: SHY RED INR: 2.0 - 3.0 CONDITIONS NOT LISTED BELOW 2.5 - 3.5 FOR PROSTHETIC HEART VALVE REPLACEMENT 2.5 - 3.5 RECURRENT THROMBOSIS Performed By: #### B CUSTOMER SALES ADVISOR, CMP, TSH, LIPID #### [facility] [address] [place] [address] Dr. Reji Thomas PT Coag (PPP) [Time] 22.5 s Critically high 9.0-11.6 [facility] Comment on above: Performed By: #### B CUSTOMER SALES ADVISOR, CMP, TSH, LIPID #### [facility] [address] [place] [address] Dr. Reji Thomas PROTIMEon 01-03-2023 INR Coag (PPP) [Relative time] 2.53 {INR} Normal [facility] Comment on above: Performed By: #### B MP #### [facility] [address] [place] [address] Dr. Reji Thomas INR GUIDELINES SEE BELOW Normal [facility] Comment on above: Result Comment: SHY RED INR: 2.0 - 3.0 CONDITIONS NOT LISTED BELOW 2.5 - 3.5 FOR PROSTHETIC HEART VALVE REPLACEMENT 2.5 - 3.5 RECURRENT THROMBOSIS Performed By: #### B MP #### [facility] [address] [place] [address] Dr. Reji Thomas PT Coag (PPP) [Time] 25.4 s Critically high 9.0-11.6 [facility] Comment on above: Performed By: #### B MP #### [facility] [address] [place] [address] Dr. Reji Thomas PROTIMEon 11-23-2022 INR Coag (PPP) [Relative time] 1.71 {INR} Normal [facility] Comment on above: Performed By: #### B CUSTOMER SALES ADVISOR, CMP, TSH, LIPID #### [facility] [address] [place] [address] Dr. Reji Thomas INR GUIDELINES SEE BELOW Normal [facility] Comment on above: Result Comment: SHY RED INR: 2.0 - 3.0 CONDITIONS NOT LISTED BELOW 2.5 - 3.5 FOR PROSTHETIC HEART VALVE REPLACEMENT 2.5 - 3.5 RECURRENT THROMBOSIS Performed By: #### B CUSTOMER SALES ADVISOR, CMP, TSH, LIPID #### [facility] [address] [place] [address] Dr. Reji Thomas PT Coag (PPP) [Time] 17.6 s Critically high 9.0-11.6 [facility] Comment on above: Performed By: #### B CUSTOMER SALES ADVISOR, CMP, TSH, LIPID #### [facility] [address] [place] [address] Dr. Reji Thomas PROTIMEon 10-10-2022 INR Coag (PPP) [Relative time] 2.52 {INR} Normal [facility] Comment on above: Performed By: #### B CUSTOMER SALES ADVISOR, CMP, TSH, LIPID #### [facility] [address] [place] [address] Dr. Reji Thomas INR GUIDELINES SEE BELOW Normal [facility] Comment on above: Result Comment: SHY RED INR: 2.0 - 3.0 CONDITIONS NOT LISTED BELOW 2.5 - 3.5 FOR PROSTHETIC HEART VALVE REPLACEMENT 2.5 - 3.5 RECURRENT THROMBOSIS Performed By: #### B CUSTOMER SALES ADVISOR, CMP, TSH, LIPID #### [facility] [address] [place] [address] Dr. Reji Thomas PT Coag (PPP) [Time] 25.6 s Critically high 9.0-11.6 [facility] Comment on above: Performed By: #### B CUSTOMER SALES ADVISOR, CMP, TSH, LIPID #### [facility] [address] [place] [address] Dr. Reji Thomas PROTIMEon 09-05-2022 INR Coag (PPP) [Relative time] 2.03 {INR} Normal [facility] Comment on above: Performed By: #### B CUSTOMER SALES ADVISOR, CMP, TSH, LIPID #### [facility] [address] [place] [address] Dr. Reji Thomas INR GUIDELINES SEE BELOW Normal [facility] Comment on above: Result Comment: SHY RED INR: 2.0 - 3.0 CONDITIONS NOT LISTED BELOW 2.5 - 3.5 FOR PROSTHETIC HEART VALVE REPLACEMENT 2.5 - 3.5 RECURRENT THROMBOSIS Performed By: #### B CUSTOMER SALES ADVISOR, CMP, TSH, LIPID #### [facility] [address] [place] [address] Dr. Reji Thomas PT Coag (PPP) [Time] 20.9 s Critically high 9.0-11.6 [facility] Comment on above: Performed By: #### B CUSTOMER SALES ADVISOR, CMP, TSH, LIPID #### [facility] [address] [place] [address] Dr. Reji Thomas BNPon 08-10-2022 Natriuretic peptide B (Bld) [Mass/Vol] 1162.0 pg/mL Normal <=1,800.0 [facility] Comment on above: Performed By: #### B MP, BNP #### [facility] [address] [place] [address] Dr. Reji Thomas PROF CHEM 8 (BAS METB)on Anion gap [Moles/Vol] 11.3 mmol/L Normal [facility] Comment on above: Performed By: #### B MP, BNP #### [facility] [address] [place] [address] Dr. Reji Thomas Calcium [Mass/Vol] 8.9 mg/dL Normal 8.5-10.1 [facility] Comment on above: Performed By: #### B MP, BNP #### [facility] [address] [place] [address] Dr. Reji Thomas Chloride [Moles/Vol] 103 mmol/L Normal 98-107 [facility] Comment on above: Performed By: #### B MP, BNP #### [facility] [address] [place] [address] Dr. Reji Thomas CO2 [Moles/Vol] 28.2 mmol/L Normal 21.0-32.0 [facility] Comment on above: Performed By: #### B MP, BNP #### [facility] [address] [place] [address] Dr. Reji Thomas Creatinine [Mass/Vol] 2.07 mg/dL Critically high 0.55-1.02 [facility] Comment on above: Performed By: #### B MP, BNP #### [facility] [address] [place] [address] Dr. Reji Thomas EGFR-AF BOLIVIAN 28 mL/min/1.73m2 Critically low >=60 [facility] Comment on above: Performed By: #### B MP, BNP #### [facility] [address] [place] [address] Dr. Reji Thomas EGFR-NON AF BOLIVIAN 23 mL/min/1.73m2 Critically low >=60 [facility] Comment on above: Performed By: #### B MP, BNP #### [facility] [address] [place] [address] Dr. Reji Thomas Glucose [Mass/Vol] 88 mg/dL Normal 74-106 [facility] Comment on above: Performed By: #### B MP, BNP #### [facility] [address] [place] [address] Dr. Reji Thomas Potassium [Moles/Vol] 4.5 mmol/L Normal 3.5-5.1 [facility] Comment on above: Performed By: #### B MP, BNP #### [facility] [address] [place] [address] Dr. Reji Thomas Sodium [Moles/Vol] 138 mmol/L Normal 136-145 [facility] Comment on above: Performed By: #### B MP, BNP #### [facility] [address] [place] [address] Dr. Reji Thomas Urea nitrogen [Mass/Vol] 35.0 mg/dL Critically high 7.0-18.0 [facility] Comment on above: Performed By: #### B MP, BNP #### [facility] [address] [place] [address] Dr. Reji Thomas Urea nitrogen/Creatinine [Mass ratio] 16.9 mg/mg Normal [facility] Comment on above: Performed By: #### B MP, BNP #### [facility] [address] [place] [address] Dr. Reji Thomas PROTIMEon 08-09-2022 INR Coag (PPP) [Relative time] 2.04 {INR} Normal [facility] Comment on above: Performed By: #### B CUSTOMER SALES ADVISOR, CMP, TSH, LIPID #### [facility] [address] [place] [address] Dr. Reji Thomas INR GUIDELINES SEE BELOW Normal [facility] Comment on above: Result Comment: SHY RED INR: 2.0 - 3.0 CONDITIONS NOT LISTED BELOW 2.5 - 3.5 FOR PROSTHETIC HEART VALVE REPLACEMENT 2.5 - 3.5 RECURRENT THROMBOSIS Performed By: #### B CUSTOMER SALES ADVISOR, CMP, TSH, LIPID #### [facility] [address] [place] [address] Dr. Reji Thomas PT Coag (PPP) [Time] 21.0 s Critically high 9.0-11.6 [facility] Comment on above: Performed By: #### B CUSTOMER SALES ADVISOR, CMP, TSH, LIPID #### [facility] [address] [place] [address] Dr. Reji Thomas BNPon 07-09-2022 Natriuretic peptide B (Bld) [Mass/Vol] 2085.0 pg/mL Critically high <=1,800.0 [facility] Comment on above: Result Comment: LEX ACOSTA CALLED TO OFFICE ON 07-10-22 AT 0850 BY AR Performed By: #### B CUSTOMER SALES ADVISOR, CMP, TSH, LIPID #### [facility] [address] [place] [address] Dr. Reji Thomas PROF CHEM 8 (BAS METB)on Anion gap [Moles/Vol] 13.7 mmol/L Normal [facility] Comment on above: Performed By: #### B CUSTOMER SALES ADVISOR, CMP, TSH, LIPID #### [facility] [address] [place] [address] Dr. Reji Thomas Calcium [Mass/Vol] 8.3 mg/dL Critically low 8.5-10.1 [facility] Comment on above: Performed By: #### B CUSTOMER SALES ADVISOR, CMP, TSH, LIPID #### [facility] [address] [place] [address] Dr. Reji Thomas Chloride [Moles/Vol] 104 mmol/L Normal 98-107 [facility] Comment on above: Performed By: #### B CUSTOMER SALES ADVISOR, CMP, TSH, LIPID #### [facility] [address] [place] [address] Dr. Reji Thomas CO2 [Moles/Vol] 26.6 mmol/L Normal 21.0-32.0 [facility] Comment on above: Performed By: #### B CUSTOMER SALES ADVISOR, CMP, TSH, LIPID #### [facility] [address] [place] [address] Dr. Reji Thomas Creatinine [Mass/Vol] 1.98 mg/dL Critically high 0.55-1.02 [facility] Comment on above: Performed By: #### B CUSTOMER SALES ADVISOR, CMP, TSH, LIPID #### [facility] [address] [place] [address] Dr. Reji Thomas EGFR-AF BOLIVIAN 29 mL/min/1.73m2 Critically low >=60 [facility] Comment on above: Performed By: #### B CUSTOMER SALES ADVISOR, CMP, TSH, LIPID #### [facility] [address] [place] [address] Dr. Reji Thomas EGFR-NON AF BOLIVIAN 24 mL/min/1.73m2 Critically low >=60 [facility] Comment on above: Performed By: #### B CUSTOMER SALES ADVISOR, CMP, TSH, LIPID #### [facility] [address] [address] [address] Reji Thomas Glucose [Mass/Vol] 116 mg/dL Critically high 74-106 [facility] Comment on above: Performed By: #### B CUSTOMER SALES ADVISOR, CMP, TSH, LIPID #### [facility] [address] [place] [address] Dr. Reji Thomas Potassium [Moles/Vol] 4.3 mmol/L Normal 3.5-5.1 [facility] Comment on above: Performed By: #### B CUSTOMER SALES ADVISOR, CMP, TSH, LIPID #### [facility] [address] [place] [address] Dr. Reji Thomas Sodium [Moles/Vol] 140 mmol/L Normal 136-145 [facility] Comment on above: Performed By: #### B CUSTOMER SALES ADVISOR, CMP, TSH, LIPID #### [facility] [address] [place] [address] Dr. Reji Thomas Urea nitrogen [Mass/Vol] 35.0 mg/dL Critically high 7.0-18.0 [facility] Comment on above: Performed By: #### B CUSTOMER SALES ADVISOR, CMP, TSH, LIPID #### [facility] [address] [place] [address] Dr. Reji Thomas Urea nitrogen/Creatinine [Mass ratio] 17.7 mg/mg Normal [facility] Comment on above: Performed By: #### B CUSTOMER SALES ADVISOR, CMP, TSH, LIPID #### [facility] [address] [place] [address] Dr. Reji Thomas PROTIMEon 07-09-2022 INR Coag (PPP) [Relative time] 2.99 {INR} Normal [facility] Comment on above: Performed By: #### B CUSTOMER SALES ADVISOR, CMP, TSH, LIPID #### [facility] [address] [place] [address] Dr. Reji Thomas INR GUIDELINES SEE BELOW Normal [facility] Comment on above: Result Comment: SHY RED INR: 2.0 - 3.0 CONDITIONS NOT LISTED BELOW 2.5 - 3.5 FOR PROSTHETIC HEART VALVE REPLACEMENT 2.5 - 3.5 RECURRENT THROMBOSIS Performed By: #### B CUSTOMER SALES ADVISOR, CMP, TSH, LIPID #### [facility] [address] [place], [place] [address] Dr. Reji Thomas PT Coag (PPP) [Time] 30.1 s Critically high 9.0-11.6 [facility] Comment on above: Performed By: #### B CUSTOMER SALES ADVISOR, CMP, TSH, LIPID #### [facility] [address] [address] [address] Reji Thomas US KIDNEYSon 07-06-2022 US [...] SIGRID RICHMOND Date: 2022-07-06 13:31 Normal [facility] Antinuclear Antibodieson 06-19-2022 Antinuclear Abs, IFA Positive Critically abnormal . [facility] Comment on above: Result Comment: Nega tive <1:80 Borderline 1:80 Positive >1:80 Performed By: #### C UU, ADDONUAPLUS #### [address] #### C3, C4, CH50 #### [facility] , Homogeneous Pattern 1:320 High . [facility] Comment on above: Result Comment: ICAP nomenclature: [id number] Performed By: #### C MIKY CHOW #### [facility] [address] #### C3, C4, CH50 #### [facility] , Note 1 Normal . [facility] Comment on above: Result Comment: For [...] titers Nucleosomes, Histones Drug-induced SLE Speckled Sm, INDUSTRIAL RETROFIT DESIGNER, SCL-70, SLE,MCTD,PSS (diffuse form), SS-A/SS-B Sjogrens Nucleolar SCL-70, PM-1/SCL High titers Scleroderma, PM/DM Centromere Centromere PSS (limited form) w/Crest syndrome variable Nuclear Dot [id number] Primary Biliary Cirrhosis Nuclear GP210, Primary Biliary Cirrhosis Membrane eleonora A,B,C Performed at: [facility] [place] [address] Char Dust Cleaner And Salvager: Demarcus Lawton PhD, Phone: [phone] Performed By: #### COURTNEY GOMEZONUAPLUS #### [address] #### C3, C4, CH50 #### [facility] , Anti-RNPon 06-19-2022 Anti-INDUSTRIAL RETROFIT DESIGNER 0.4 Normal 0.0-0.9 [facility] Comment on above: Result Comment: Perf ormed at: [place] [address] Char Dust Cleaner And Salvager: Demarcus Lawton PhD, Phone: [phone] Performed By: #### Krista CHOW, ADDONUAPLUS #### [address] #### C3, C4, CH50 #### [facility] , C-Reactive Proteinon 022 C-Reactive Protein 2.0 mg/dL High 0.0-1.0 [facility] Comment on above: Result Comment: PERF ORMED BY: [place] [address] PATHOLOGIST SAFETY ENGINEER RADHA BULLARD M.D. Performed By: #### C UU, ADDONUAPLUS #### [address] #### C3, C4, CH50 #### [facility] , Complement C3on 06-19-2022 Complement C3 167 mg/dL Normal 82-167 [facility] Comment on above: Result Comment: Perf ormed at: [facility] [employer] [id number] Char Dust Cleaner And Salvager: Demarcus Lawton PhD, Phone: [phone] Performed By: #### C UU, ADDONUAPLUS #### [address] #### C3, C4, CH50 #### [facility] , Complement C4on 06-19-2022 Complement C4 37 mg/dL Normal 12-38 [facility] Comment on above: Performed By: #### C UU, ADDONUAPLUS #### [address] #### C3, C4, CH50 #### [facility] , Complement Total (CH50)on Complement Total (CH50) >60 Normal >41 [facility] Comment on above: Result Comment: Age [...] determine out of range values. Performed at: [employer] [id number] Char Dust Cleaner And Salvager: Demarcus Lawton PhD, Phone: [phone] PERFORMED BY: [place] [address] PATHOLOGIST SAFETY ENGINEER RADHA BULLARD M.D. Performed By: #### C UU, ADDONUAPLUS #### [address] #### C3, C4, CH50 #### [facility] , Complete Blood Count Auto Di ffon 06-19-2022 Basophils (Bld) [#/Vol] 0.1 10*3/uL Normal 0.0-0.2 [facility] Comment on above: Performed By: #### H EPATIC, CBC, ESR, CRP, CREAT, CK #### [place] [address] [place] #### RNA POLYMR, ANTI TH TO, EVAN, U3 INDUSTRIAL RETROFIT DESIGNER, ANTIR, PM-SCL ABS #### [facility] , Basophils/100 WBC (Bld) 0.9 % Normal . [facility] Comment on above: Performed By: #### H EPATIC, CBC, ESR, CRP, CREAT, CK #### [place] [address] [place] #### RNA POLYMR, ANTI TH TO, EVAN, U3 INDUSTRIAL RETROFIT DESIGNER, ANTIR, PM-SCL ABS #### [facility] , Eosinophils (Bld) [#/Vol] 0.5 10*3/uL High 0.0-0.45 [facility] Comment on above: Performed By: #### H EPATIC, CBC, ESR, CRP, CREAT, CK #### [place] [address] [place] #### RNA POLYMR, ANTI TH TO, EVAN, U3 INDUSTRIAL RETROFIT DESIGNER, ANTIR, PM-SCL ABS #### [facility] , Eosinophils/100 WBC (Bld) 8.6 % Normal . [facility] Comment on above: Performed By: #### H EPATIC, CBC, ESR, CRP, CREAT, CK #### [address] #### RNA POLYMR, ANTI TH TO, EVAN, U3 INDUSTRIAL RETROFIT DESIGNER, ANTIR, PM-SCL ABS #### [facility] , Erythrocyte distribution width (RBC) [Ratio] 19.6 % High 11.9-15.3 [facility] Comment on above: Performed By: #### H EPATIC, CBC, ESR, CRP, CREAT, CK #### [place] [address] [place] #### RNA POLYMR, ANTI TH TO, EVAN, U3 INDUSTRIAL RETROFIT DESIGNER, ANTIR, PM-SCL ABS #### [facility] , Hematocrit (Bld) [Volume fraction] 33.8 % Low 34.0-46.4 [facility] Comment on above: Performed By: #### H EPATIC, CBC, ESR, CRP, CREAT, CK #### [address] #### RNA POLYMR, ANTI TH TO, EVAN, U3 INDUSTRIAL RETROFIT DESIGNER, ANTIR, PM-SCL ABS #### [facility] , Hemoglobin (Bld) [Mass/Vol] 10.9 g/dL Low 11.8-15.4 [facility] Comment on above: Performed By: #### H EPATIC, CBC, ESR, CRP, CREAT, CK #### [place] [address] [place] #### RNA POLYMR, ANTI TH TO, EVAN, U3 INDUSTRIAL RETROFIT DESIGNER, ANTIR, PM-SCL ABS #### [facility] , Lymphocytes (Bld) [#/Vol] 1.1 10*3/uL Normal 1.00-4.8 [facility] Comment on above: Performed By: #### H EPATIC, CBC, ESR, CRP, CREAT, CK #### [address] #### RNA POLYMR, ANTI TH TO, EVAN, U3 INDUSTRIAL RETROFIT DESIGNER, ANTIR, PM-SCL ABS #### [facility] , Lymphocytes/100 WBC (Bld) 17.8 % Normal . [facility] Comment on above: Performed By: #### H EPATIC, CBC, ESR, CRP, CREAT, CK #### [facility] [address] [place] [address] #### RNA POLYMR, ANTI TH TO, EVAN, U3 INDUSTRIAL RETROFIT DESIGNER, ANTIR, PM-SCL ABS #### [facility] , MCH (RBC) [Entitic mass] 26.4 pg Normal 24.7-34.3 [facility] Comment on above: Performed By: #### H EPATIC, CBC, ESR, CRP, CREAT, CK #### [facility] [address] [place] [address] #### RNA POLYMR, ANTI TH TO, EVAN, U3 INDUSTRIAL RETROFIT DESIGNER, ANTIR, PM-SCL ABS #### [facility] , MCV (RBC) [Entitic vol] 81.8 fL Normal 80-100 [facility] Comment on above: Performed By: #### H EPATIC, CBC, ESR, CRP, CREAT, CK #### [address] #### RNA POLYMR, ANTI TH TO, EVAN, U3 INDUSTRIAL RETROFIT DESIGNER, ANTIR, PM-SCL ABS #### [facility] , Mean Corpuscular HGB Conc 32.3 g/dL Normal 32.0-35.0 [facility] Comment on above: Performed By: #### H EPATIC, CBC, ESR, CRP, CREAT, CK #### [facility] [address] [place] [address] [place] #### RNA POLYMR, ANTI TH TO, EVAN, U3 INDUSTRIAL RETROFIT DESIGNER, ANTIR, PM-SCL ABS #### [facility] , Monocytes (Bld) [#/Vol] 0.4 10*3/uL Normal 0.0-0.8 [facility] Comment on above: Performed By: #### H EPATIC, CBC, ESR, CRP, CREAT, CK #### [place] [address] [place] #### RNA POLYMR, ANTI TH TO, EVAN, U3 INDUSTRIAL RETROFIT DESIGNER, ANTIR, PM-SCL ABS #### [facility] , Monocytes/100 WBC (Bld) 7.4 % Normal . [facility] Comment on above: Performed By: #### H EPATIC, CBC, ESR, CRP, CREAT, CK #### [place] [address] [place] #### RNA POLYMR, ANTI TH TO, EVAN, U3 INDUSTRIAL RETROFIT DESIGNER, ANTIR, PM-SCL ABS #### [facility] , Neutrophils (Bld) [#/Vol] 3.9 10*3/uL Normal 1.8-7.7 [facility] Comment on above: Performed By: #### H EPATIC, CBC, ESR, CRP, CREAT, CK #### [place] [address] [place] #### RNA POLYMR, ANTI TH TO, EVAN, U3 INDUSTRIAL RETROFIT DESIGNER, ANTIR, PM-SCL ABS #### [facility] , Neutrophils/100 WBC (Bld) 65.3 % Normal . [facility] Comment on above: Performed By: #### H EPATIC, CBC, ESR, CRP, CREAT, CK #### [place] [address] [place] #### RNA POLYMR, ANTI TH TO, EVAN, U3 INDUSTRIAL RETROFIT DESIGNER, ANTIR, PM-SCL ABS #### [facility] , Nucleated RBC/100 WBC (Bld) [Ratio] 0.0 % Normal 0-0.5 [facility] Comment on above: Performed By: #### H EPATIC, CBC, ESR, CRP, CREAT, CK #### [place] [address] [place] #### RNA POLYMR, ANTI TH TO, EVAN, U3 INDUSTRIAL RETROFIT DESIGNER, ANTIR, PM-SCL ABS #### [facility] , Platelet mean volume (Bld) [Entitic vol] 7.2 fL Normal 6.3-10.7 [facility] Comment on above: Performed By: #### H EPATIC, CBC, ESR, CRP, CREAT, CK #### [facility] [address] [place] [address] #### RNA POLYMR, ANTI TH TO, EVAN, U3 INDUSTRIAL RETROFIT DESIGNER, ANTIR, PM-SCL ABS #### [facility] , Platelets (Bld) [#/Vol] 237 10*3/uL Normal 150-450 [facility] Comment on above: Performed By: #### H EPATIC, CBC, ESR, CRP, CREAT, CK #### [facility] [address] [place] [address] #### RNA POLYMR, ANTI TH TO, EVAN, U3 INDUSTRIAL RETROFIT DESIGNER, ANTIR, PM-SCL ABS #### [facility] , RBC (Bld) [#/Vol] 4.14 10*6/uL Normal 3.60-5.00 [facility] Comment on above: Performed By: #### H EPATIC, CBC, ESR, CRP, CREAT, CK #### [facility] [address] [place] [address] #### RNA POLYMR, ANTI TH TO, EVAN, U3 INDUSTRIAL RETROFIT DESIGNER, ANTIR, PM-SCL ABS #### [facility] , WBC (Bld) [#/Vol] 6.0 10*3/uL Normal 4.5-11.0 [facility] Comment on above: Performed By: #### H EPATIC, CBC, ESR, CRP, CREAT, CK #### [facility] [address] [place] [address] [place] #### RNA POLYMR, ANTI TH TO, EVAN, U3 INDUSTRIAL RETROFIT DESIGNER, ANTIR, PM-SCL ABS #### [facility] , Creatine Kinaseon 06-19-2022 CK [Catalytic activity/Vol] 38 U/L Normal 22-269 [facility] Comment on above: Result Comment: PERF ORMED BY: [place] [address] PATHOLOGIST SAFETY ENGINEER RADHA BULLARD M.D. Performed By: #### H EPATIC, CBC, ESR, CRP, CREAT, CK #### [address] #### RNA POLYMR, ANTI TH TO, EVAN, U3 INDUSTRIAL RETROFIT DESIGNER, ANTIR, PM-SCL ABS #### [facility] , Creatinineon 06-19-2022 Creatinine [Mass/Vol] 2.82 mg/dL High 0.44-1.03 [facility] Comment on above: Performed By: #### H EPATIC, CBC, ESR, CRP, CREAT, CK #### [address] #### RNA POLYMR, ANTI TH TO, EVAN, U3 INDUSTRIAL RETROFIT DESIGNER, ANTIR, PM-SCL ABS #### [facility] , Estimated GFR ( Oralia 19 [facility] [place] Comment on above: Result Comment: GFR estimated reference range: According to KDOQI guidelines, <60 ml/min/1.73m2 is sufficient to diagnose a patient with chronic kidney disease. Performed By: #### H EPATIC, CBC, ESR, CRP, CREAT, CK #### [address] #### RNA POLYMR, ANTI TH TO, EVAN, U3 INDUSTRIAL RETROFIT DESIGNER, ANTIR, PM-SCL ABS #### [facility] , Estimated GFR (Non- Am 16 [facility] [place] Comment on above: Performed By: #### H EPATIC, CBC, ESR, CRP, CREAT, CK #### [facility] [address] [place] [address] [place] #### RNA POLYMR, ANTI TH TO, EVAN, U3 INDUSTRIAL RETROFIT DESIGNER, ANTIR, PM-SCL ABS #### [facility] , Dipstick and Microscopicon 0 06-19-2022 Appearance (U) Cloudy Critically abnormal Clear [facility] Comment on above: Order Comment: Name Collection Type:: Clean-Voided Midstream Performed By: #### C UU, ADDONUAPLUS #### [facility] [address] [place] [address] #### C3, C4, CH50 #### [facility] , Bacteria,Urine 1+ High None Seen [facility] Comment on above: Order Comment: Name Collection Type:: Clean-Voided Midstream Performed By: #### C UU, ADDONUAPLUS #### [facility] [address] [place] [address] #### C3, C4, CH50 #### [facility] , Bilirubin,Urine Negative Normal Negative [facility] Comment on above: Order Comment: Name Collection Type:: Clean-Voided Midstream Performed By: #### C UU, ADDONUAPLUS #### [facility] [address] [place] [address] #### C3, C4, CH50 #### [facility] , Color (U) Yellow Normal Yellow [facility] Comment on above: Order Comment: Name Collection Type:: Clean-Voided Midstream Performed By: #### C UU, ADDONUAPLUS #### [facility] [address] [place] [address] #### C3, C4, CH50 #### [facility] , Glucose Ql (U) Normal Normal Normal [facility] Comment on above: Order Comment: Name Collection Type:: Clean-Voided Midstream Performed By: #### C UU, ADDONUAPLUS #### [facility] [address] [place] [address] #### C3, C4, CH50 #### [facility] , Hyaline Casts,Urine 1-2 Normal 0-8 [facility] Comment on above: Order Comment: Name Collection Type:: Clean-Voided Midstream Result Comment: PERF ORMED BY: [place] [address] PATHOLOGIST SAFETY ENGINEER RADHA BULLARD M.D. Performed By: #### C UU, ADDONUAPLUS #### [address] #### C3, C4, CH50 #### [facility] , Ketones Ql (U) Negative Normal Negative [facility] Comment on above: Order Comment: Name Collection Type:: Clean-Voided Midstream Performed By: #### C UU, ADDONUAPLUS #### [address] #### C3, C4, CH50 #### [facility] , Leukocyte esterase Test strip Ql (U) 4+ High Negative [facility] Comment on above: Order Comment: Name Collection Type:: Clean-Voided Midstream Performed By: #### C UU, ADDONUAPLUS #### [address] #### C3, C4, CH50 #### [facility] , Nitrite,Urine Negative Normal Negative [facility] Comment on above: Order Comment: Name Collection Type:: Clean-Voided Midstream Performed By: #### C UU, ADDONUAPLUS #### [address] #### C3, C4, CH50 #### [facility] , Occult Blood,Urine 1+ High Negative [facility] Comment on above: Order Comment: Name Collection Type:: Clean-Voided Midstream Performed By: #### C UU, ADDONUAPLUS #### [address] #### C3, C4, CH50 #### [facility] , pH (U) 6.5 [pH] Normal 5.0-9.0 [facility] Comment on above: Order Comment: Name Collection Type:: Clean-Voided Midstream Performed By: #### C UU, ADDONUAPLUS #### [address] [place] [address] [place] #### C3, C4, CH50 #### [facility] , Protein,Urine Trace High Negative [facility] Comment on above: Order Comment: Name Collection Type:: Clean-Voided Midstream Performed By: #### C UU, ADDONUAPLUS #### [address] #### C3, C4, CH50 #### [facility] , RBC,Urine 1-2 Normal 0-4 [facility] Comment on above: Order Comment: Name Collection Type:: Clean-Voided Midstream Performed By: #### C UU, ADDONUAPLUS #### [address] #### C3, C4, CH50 #### [facility] , Specificy Davis,Urine 1.010 Normal 1.001-1.030 [facility] Comment on above: Order Comment: Name Collection Type:: Clean-Voided Midstream Performed By: #### C UU, ADDONUAPLUS #### [address] #### C3, C4, CH50 #### [facility] , Squamous Epithelial Cell,Urine 5-9 High 0-2 [facility] Comment on above: Order Comment: Name Collection Type:: Clean-Voided Midstream Performed By: #### C UU, ADDONUAPLUS #### [address] #### C3, C4, CH50 #### [facility] , Urobilinogen,Urine Normal Normal Normal [facility] Comment on above: Order Comment: Name Collection Type:: Clean-Voided Midstream Performed By: #### C UU, ADDONUAPLUS #### [address] #### C3, C4, CH50 #### [facility] , WBC,Urine Innumerable High 0-4 [facility] Comment on above: Order Comment: Name Collection Type:: Clean-Voided Midstream Performed By: #### C UU, ADDONUAPLUS #### [address] #### C3, C4, CH50 #### [facility] , Erythrocyte Sedimentation Ra pratik 06-19-2022 ESR (Bld) [Velocity] 57 mm/h High 0-29 [facility] Comment on above: Result Comment: PERF ORMED BY: [place] [address] PATHOLOGIST SAFETY ENGINEER RADHA BULLARD M.D. Performed By: #### H EPATIC, CBC, ESR, CRP, CREAT, CK #### [address] #### RNA POLYMR, ANTI TH TO, EVAN, U3 INDUSTRIAL RETROFIT DESIGNER, ANTIR, PM-SCL ABS #### [facility] , Hepatic Panelon 06-19-2022 Albumin [Mass/Vol] 3.6 g/dL Normal 3.2-5.5 [facility] Comment on above: Performed By: #### H EPATIC, CBC, ESR, CRP, CREAT, CK #### [facility] [address] [place] [address] #### RNA POLYMR, ANTI TH TO, EVAN, U3 INDUSTRIAL RETROFIT DESIGNER, ANTIR, PM-SCL ABS #### [facility] , Albumin/Globulin [Mass ratio] 1.0 {ratio} Normal [facility] Comment on above: Performed By: #### H EPATIC, CBC, ESR, CRP, CREAT, CK #### [facility] [address] [place] [address] [place] #### RNA POLYMR, ANTI TH TO, EVAN, U3 INDUSTRIAL RETROFIT DESIGNER, ANTIR, PM-SCL ABS #### [facility] , ALP [Catalytic activity/Vol] 68 U/L Normal 32-92 [facility] Comment on above: Performed By: #### H EPATIC, CBC, ESR, CRP, CREAT, CK #### [facility] [address] [place] [address] [place] #### RNA POLYMR, ANTI TH TO, EVAN, U3 INDUSTRIAL RETROFIT DESIGNER, ANTIR, PM-SCL ABS #### [facility] , ALT [Catalytic activity/Vol] 9 U/L Low 10-60 [facility] Comment on above: Performed By: #### H EPATIC, CBC, ESR, CRP, CREAT, CK #### [facility] [address] [place] [address] [place] #### RNA POLYMR, ANTI TH TO, EVAN, U3 INDUSTRIAL RETROFIT DESIGNER, ANTIR, PM-SCL ABS #### [facility] , AST [Catalytic activity/Vol] 15 U/L Normal 1042 [facility] Comment on above: Performed By: #### H EPATIC, CBC, ESR, CRP, CREAT, CK #### [place] [address] [place] #### RNA POLYMR, ANTI TH TO, EVAN, U3 INDUSTRIAL RETROFIT DESIGNER, ANTIR, PM-SCL ABS #### [facility] , Bilirubin [Mass/Vol] 0.6 mg/dL Normal 0.3-1.2 [facility] Comment on above: Performed By: #### H EPATIC, CBC, ESR, CRP, CREAT, CK #### [facility] [address] [place] [address] [place] #### RNA POLYMR, ANTI TH TO, EVAN, U3 INDUSTRIAL RETROFIT DESIGNER, ANTIR, PM-SCL ABS #### [facility] , Bilirubin,Indirect 0.4 mg/dL Normal [facility] Comment on above: Performed By: #### H EPATIC, CBC, ESR, CRP, CREAT, CK #### [place] [address] [place] #### RNA POLYMR, ANTI TH TO, EVAN, U3 INDUSTRIAL RETROFIT DESIGNER, ANTIR, PM-SCL ABS #### [facility] , Bilirubin.indirect [Mass/Vol] 0.2 mg/dL Normal 0.0-0.4 [facility] Comment on above: Performed By: #### H EPATIC, CBC, ESR, CRP, CREAT, CK #### [address] #### RNA POLYMR, ANTI TH TO, EVAN, U3 INDUSTRIAL RETROFIT DESIGNER, ANTIR, PM-SCL ABS #### [facility] , Globulin (S) [Mass/Vol] 3.5 g/dL Normal [facility] Comment on above: Performed By: #### H EPATIC, CBC, ESR, CRP, CREAT, CK #### [address] #### RNA POLYMR, ANTI TH TO, EVAN, U3 INDUSTRIAL RETROFIT DESIGNER, ANTIR, PM-SCL ABS #### [facility] , Protein [Mass/Vol] 7.1 g/dL Normal 6.1-7.9 [facility] Comment on above: Performed By: #### H EPATIC, CBC, ESR, CRP, CREAT, CK #### [place] [address] [place] #### RNA POLYMR, ANTI TH TO, EVAN, U3 INDUSTRIAL RETROFIT DESIGNER, ANTIR, PM-SCL ABS #### [facility] , PM-SCL Antibodieson 06-19-20 22 RAIZA PM-Scl Antibody <20 Normal <20 [facility] Comment on above: Result Comment: This test was developed and its performance characteristics determined by [facility]. It has not been cleared or approved by the Food and Drug Administration. Negative: <20 Weak Positive: 20 - 39 Moderate Positive: 40 - 80 Strong Positive: >80 Performed at: [employer] [address] [place] [address] [id number] Char Dust Cleaner And Salvager: Artemio Nair MD, Phone: [phone] Performed By: #### C UU, ADDONUAPLUS #### [address] [place] [address] [place] #### C3, C4, CH50 #### [facility] , RNA Polymerase IIion 022 RNA Polymerase IIi <20 Normal <20 [facility] Comment on above: Result Comment: Nega tive: <20 Weak Positive: 20 - 39 Moderate Positive: 40 - 80 Strong Positive: >80 Performed at: [facility] [address] [place] [address] [id number] Char Dust Cleaner And Salvager: Artemio Nair MD, Phone: [phone] PERFORMED BY: [place] [address] PATHOLOGIST SAFETY ENGINEER RADHA BULLARD M.D. Performed By: #### C UU, ADDONUAPLUS #### [address] #### C3, C4, CH50 #### [facility] , Th/To Antibodyon 06-19-2022 Th/To Antibody Negative Normal Negative [facility] Comment on above: Result Comment: This test was developed and its performance characteristics determined by [employer]. It has not been cleared or approved by the Food and Drug Administration. Performed at: [facility] [address] [place] [address] [id number] Char Dust Cleaner And Salvager: Artemio Nair MD, Phone: [phone] Performed By: #### C UU, ADDONUAPLUS #### [facility] [address] [place] [address] #### C3, C4, CH50 #### [facility] , U3 Rnpon 06-19-2022 U3 Plastics Tooling Engineer Negative Normal Negative [facility] Comment on above: Result Comment: This test was developed and its performance characteristics determined by [facility]. It has not been cleared or approved by the Food and Drug Administration. Performed at: [facility] [address] [place] [address] [id number] Char Dust Cleaner And Salvager: Artemio Nair MD, Phone: [phone] PERFORMED BY: [place] [address] PATHOLOGIST SAFETY ENGINEER RADHA BULLARD M.D. Performed By: #### C UU, ADDONUAPLUS #### [address] #### C3, C4, CH50 #### [facility] , Urine Cultureon 06-19-2022 Bacteria identified Cx Nom (U) No Growth 2 Days PERFORMED BY: [place] [address] PATHOLOGIST SAFETY ENGINEER RADHA BULLARD M.D. Normal [facility] Comment on above: Performed By: #### C UU, ADDONUAPLUS #### [address] #### C3, C4, CH50 #### [facility] , PROF CHEM 8 (BAS METB)on Anion gap [Moles/Vol] 12.5 mmol/L Normal [facility] Comment on above: Performed By: #### B MP #### [facility] [address] [address] [address] Reji Thomas Calcium [Mass/Vol] 8.9 mg/dL Normal 8.5-10.1 [facility] Comment on above: Performed By: #### B MP #### [facility] [address] [address] [address] Reji Thomas Chloride [Moles/Vol] 103 mmol/L Normal 98-107 [facility] Comment on above: Performed By: #### B MP #### [facility] [address] [address] [address] Reji Thomas CO2 [Moles/Vol] 26.1 mmol/L Normal 21.0-32.0 [facility] Comment on above: Performed By: #### B MP #### [facility] [address] [address] [address] Reji Thomas Creatinine [Mass/Vol] 2.09 mg/dL Critically high 0.55-1.02 [facility] Comment on above: Performed By: #### B MP #### [facility] [address] [address] [address] Reji Thomas EGFR-AF BOLIVIAN 27 mL/min/1.73m2 Critically low >=60 [facility] Comment on above: Performed By: #### B MP #### [facility] [address] [address] [address] Reji Thomas EGFR-NON AF BOLIVIAN 23 mL/min/1.73m2 Critically low >=60 [facility] Comment on above: Performed By: #### B MP #### [facility] [address] [address] [address] Reji Thomas Glucose [Mass/Vol] 96 mg/dL Normal 74-106 [facility] Comment on above: Performed By: #### B MP #### [facility] [address] [address] [address] Reji Thomas Potassium [Moles/Vol] 4.6 mmol/L Normal 3.5-5.1 [facility] Comment on above: Performed By: #### B MP #### [facility] [address] [address] [address] Reji Thomas Sodium [Moles/Vol] 137 mmol/L Normal 136-145 [facility] Comment on above: Performed By: #### B MP #### [facility] [address] [address] [address] Reji Thomas Urea nitrogen [Mass/Vol] 38.0 mg/dL Critically high 7.0-18.0 [facility] Comment on above: Performed By: #### B MP #### [facility] [address] [address] [address] Reji Thomas Urea nitrogen/Creatinine [Mass ratio] 18.2 mg/mg Normal [facility] Comment on above: Performed By: #### B MP #### [facility] [address] [address] [address] Reji Thomas PROTIMEon 06-04-2022 INR Coag (PPP) [Relative time] 2.51 {INR} Normal [facility] Comment on above: Performed By: #### B CUSTOMER SALES ADVISOR, CMP, TSH, LIPID #### [facility] [address] [place] [address] Dr. Reji Thomas INR GUIDELINES SEE BELOW Normal [facility] Comment on above: Result Comment: SHY RED INR: 2.0 - 3.0 CONDITIONS NOT LISTED BELOW 2.5 - 3.5 FOR PROSTHETIC HEART VALVE REPLACEMENT 2.5 - 3.5 RECURRENT THROMBOSIS Performed By: #### B CUSTOMER SALES ADVISOR, CMP, TSH, LIPID #### [facility] [address] [place] [address] Dr. Reji Thomas PT Coag (PPP) [Time] 25.5 s Critically high 9.0-11.6 [facility] Comment on above: Performed By: #### B CUSTOMER SALES ADVISOR, CMP, TSH, LIPID #### [facility] [address] [place] [address] Dr. Reji Thomas BNPon 05-15-2022 Natriuretic peptide B (Bld) [Mass/Vol] 3661.0 pg/mL Critically high <=1,800.0 [facility] Comment on above: Performed By: #### B CUSTOMER SALES ADVISOR, CMP, TSH, LIPID #### [facility] [address] [place] [address] Dr. Reji Thomas CBC AUTO DIFFon 05-15-2022 BASO # 0.1 103/ul Normal 0.0-0.1 [facility] Comment on above: Performed By: #### B MP #### [facility] [address] [place] [address] Dr. Reji Thomas Basophils/100 WBC (Bld) 1.1 % Normal 0.2-2.0 [facility] Comment on above: Performed By: #### B MP #### [facility] [address] [place] [address] Dr. Reji Thomas EO # 0.5 103/ul Normal 0.0-0.7 [facility] Comment on above: Performed By: #### B MP #### [facility] [address] [place] [address] Dr. Reji Thomas Eosinophils/100 WBC (Bld) 6.5 % Normal 0.9-7.0 [facility] Comment on above: Performed By: #### B MP #### [facility] [address] [place] [address] Dr. Reji Thomas Erythrocyte distribution width (RBC) [Ratio] 16.1 % Critically high 11.0-15.0 [facility] Comment on above: Performed By: #### B MP #### [facility] [address] [place] [address] Dr. Reji Thomas Hematocrit (Bld) [Volume fraction] 35.0 % Critically low 36.0-48.0 [facility] Comment on above: Performed By: #### B MP #### [facility] [address] [place] [address] Dr. Reji Thomas Hemoglobin (Bld) [Mass/Vol] 11.1 g/dL Critically low 12.0-16.0 [facility] Comment on above: Performed By: #### B MP #### [facility] [address] [place] [address] Dr. Reji Thomas IG # 0.02 10e3/ul Normal 0.00-0.03 [facility] Comment on above: Performed By: #### B MP #### [facility] [address] [place] [address] Dr. Reji Thomas IG % 0.3 % Normal 0.0-0.5 [facility] Comment on above: Performed By: #### B MP #### [facility] [address] [place] [address] Dr. Reji Thomas LYMPH # 1.6 103/ul Normal 1.2-3.8 [facility] Comment on above: Performed By: #### B MP #### [facility] [address] [place] [address] Dr. Reji Thomas Lymphocytes/100 WBC (Bld) 22.4 % Normal 20.5-60.0 [facility] Comment on above: Performed By: #### B MP #### [facility] [address] [place] [address] Dr. Reji Thomas MANUAL DIFF REQ NO Normal [facility] Comment on above: Performed By: #### B MP #### [facility] [address] [address] [address] Reji Thomas MCH (RBC) [Entitic mass] 26.4 pg Critically low 26.7-34.0 [facility] Comment on above: Performed By: #### B MP #### [facility] [address] [place] [address] Dr. Reji hTomas MCHC (RBC) [Mass/Vol] 31.7 g/dL Normal 29.9-35.2 [facility] Comment on above: Performed By: #### B MP #### [facility] [address] [place] [address] Dr. Reji Thomas MCV (RBC) [Entitic vol] 83.1 fL Normal 81.0-99.0 [facility] Comment on above: Performed By: #### B MP #### [facility] [address] [place] [address] Dr. Reji Thomas MONO # 0.9 103/ul Critically high 0.3-0.8 [facility] Comment on above: Performed By: #### B MP #### [facility] [address] [place] [address] Dr. Reji Thomas Monocytes/100 WBC (Bld) 12.1 % Critically high 1.7-12.0 [facility] Comment on above: Performed By: #### B MP #### [facility] [address] [place] [address] Dr. Reji Thomas NEUT # 4.1 103/ul Normal 1.4-6.5 [facility] Comment on above: Performed By: #### B MP #### [facility] [address] [place] [address] Dr. Reji Thomas Neutrophils/100 WBC (Bld) 57.6 % Normal 43.0-75.0 [facility] Comment on above: Performed By: #### B MP #### [facility] [address] [place] [address] Dr. Reji Thomas Platelet mean volume (Bld) [Entitic vol] 8.8 fL Critically low 9.5-13.5 [facility] Comment on above: Performed By: #### B MP #### [facility] [address] [address] [address] Reji Thomas PLT 253 103/ul Normal 150-450 [facility] Comment on above: Performed By: #### B MP #### [facility] [address] [address] [address] Reji Thomas RBC 4.21 106/ul Normal 4.20-5.40 [facility] Comment on above: Performed By: #### B MP #### [facility] [address] [place] [address] Dr. Reji Thomas WBC 7.1 103/ul Normal 4.0-11.0 [facility] Comment on above: Performed By: #### B MP #### [facility] [address] [place] [address] Dr. Reji Thomas PROF CHEM 8 (BAS METB)on Anion gap [Moles/Vol] 10.5 mmol/L Normal [facility] Comment on above: Performed By: #### B CUSTOMER SALES ADVISOR, CMP, TSH, LIPID #### [facility] [address] [place] [address] Dr. Reji Thomas Calcium [Mass/Vol] 8.9 mg/dL Normal 8.5-10.1 [facility] Comment on above: Performed By: #### B CUSTOMER SALES ADVISOR, CMP, TSH, LIPID #### [facility] [address] [place] [address] Dr. Reji Thomas Chloride [Moles/Vol] 104 mmol/L Normal 98-107 [facility] Comment on above: Performed By: #### B CUSTOMER SALES ADVISOR, CMP, TSH, LIPID #### [facility] [address] [place] [address] Dr. Reji Thomas CO2 [Moles/Vol] 29.5 mmol/L Normal 21.0-32.0 [facility] Comment on above: Performed By: #### B CUSTOMER SALES ADVISOR, CMP, TSH, LIPID #### [facility] [address] [place] [address] Dr. Reji Thomas Creatinine [Mass/Vol] 1.73 mg/dL Critically high 0.55-1.02 [facility] Comment on above: Performed By: #### B CUSTOMER SALES ADVISOR, CMP, TSH, LIPID #### [facility] [address] [place] [address] Dr. Reji Thomas EGFR-AF BOLIVIAN 34 mL/min/1.73m2 Critically low >=60 [facility] Comment on above: Performed By: #### B CUSTOMER SALES ADVISOR, CMP, TSH, LIPID #### [facility] [address] [place] [address] Dr. Reji Thomas EGFR-NON AF BOLIVIAN 28 mL/min/1.73m2 Critically low >=60 [facility] Comment on above: Performed By: #### B CUSTOMER SALES ADVISOR, CMP, TSH, LIPID #### [facility] [address] [place] [address] Dr. Reji Thomas Glucose [Mass/Vol] 79 mg/dL Normal 74-106 [facility] Comment on above: Performed By: #### B CUSTOMER SALES ADVISOR, CMP, TSH, LIPID #### [facility] [address] [place] [address] Dr. Reji Thomas Potassium [Moles/Vol] 4.0 mmol/L Normal 3.5-5.1 [facility] Comment on above: Performed By: #### B CUSTOMER SALES ADVISOR, CMP, TSH, LIPID #### [facility] [address] [place] [address] Dr. Reji Thomas Sodium [Moles/Vol] 140 mmol/L Normal 136-145 [facility] Comment on above: Performed By: #### B CUSTOMER SALES ADVISOR, CMP, TSH, LIPID #### [facility] [address] [place] [address] Dr. Reji Thomas Urea nitrogen [Mass/Vol] 22.0 mg/dL Critically high 7.0-18.0 [facility] Comment on above: Performed By: #### B CUSTOMER SALES ADVISOR, CMP, TSH, LIPID #### [facility] [address] [place] [address] Dr. Reji Thomas Urea nitrogen/Creatinine [Mass ratio] 12.7 mg/mg Normal [facility] Comment on above: Performed By: #### B CUSTOMER SALES ADVISOR, CMP, TSH, LIPID #### [facility] [address] [address] [address] Reji Thomas PROTIMEon 05-15-2022 INR Coag (PPP) [Relative time] 2.53 {INR} Normal [facility] Comment on above: Performed By: #### B CUSTOMER SALES ADVISOR, CMP, TSH, LIPID #### [facility] [address] [address] [address] Reji Thomas INR GUIDELINES SEE BELOW Normal [facility] Comment on above: Result Comment: SHY RED INR: 2.0 - 3.0 CONDITIONS NOT LISTED BELOW 2.5 - 3.5 FOR PROSTHETIC HEART VALVE REPLACEMENT 2.5 - 3.5 RECURRENT THROMBOSIS Performed By: #### B CUSTOMER SALES ADVISOR, CMP, TSH, LIPID #### [facility] [address] [address] [address] Reji Thomas PT Coag (PPP) [Time] 25.7 s Critically high 9.0-11.6 [facility] Comment on above: Performed By: #### B CUSTOMER SALES ADVISOR, CMP, TSH, LIPID #### [facility] [address] [address] [address] Reji Thomas ECHOCARDIO M/2D COMPLETEon 0 05-04-2022 ECHOCARDIO M/2D COMPLETE Patient: INEZ JUAREZ Exam Date: 05/04/2022 : 1940 Gender:F Ordering : DR JENN PRADO M.D. Admission #: [id number] Family : Order #: [id number] CLICK HERE TO VIEW EXAM ECHOCARDIOGRAM REPORT [...] Area(A4C): 27.20 cm2 Left Atrium Systolic Volume(A2C): 741841 mm3 Left Atrium Systolic Volume(A4C): 43485 mm3 Mitral Valve MV E to A Ratio: 2.60 Deceleration Stewart: 49215 mm/s2 Mitral Valve A-Wave Peak Velocity: 58.60 [...] Prado M.D. on 05/07/2022 at 11:39 Normal [facility] EVAN by IFAon 04-19-2022 Antinuclear Antibodies, IFA Positive Abnormal [facility] Comment on above: Result Comment: Nega tive <1:80 Borderline 1:80 Positive >1:80 Performed By: #### B CUSTOMER SALES ADVISOR, CMP, TSH, LIPID #### [facility] [address] [address] [address] Reji Thomas Centriole Pattern Normal [facility] Comment on above: Performed By: #### B CUSTOMER SALES ADVISOR, CMP, TSH, LIPID #### [facility] [address] [address] [address] Reji Thomas Centromere Pattern Normal [facility] Comment on above: Performed By: #### B CUSTOMER SALES ADVISOR, CMP, TSH, LIPID #### [facility] [address] [address] [address] Reji Thomas Homogeneous Pattern 1:320 Critically high [facility] Comment on above: Result Comment: ICAP nomenclature: AC-1 Performed By: #### B CUSTOMER SALES ADVISOR, CMP, TSH, LIPID #### [facility] [address] [address] [address] Reji Thomas Midbody Pattern Normal [facility] Comment on above: Performed By: #### B CUSTOMER SALES ADVISOR, CMP, TSH, LIPID #### [facility] [address] [address] [address] Reji Thomas Note: Comment Normal [facility] Comment on above: [...] titers Nucleosomes, Histones Drug-induced SLE Speckled Sm, INDUSTRIAL RETROFIT DESIGNER, SCL-70, SLE,MCTD,PSS (diffuse form), SS-A/SS-B Sjogrens Nucleolar SCL-70, PM-1/SCL High titers Scleroderma, PM/DM Centromere Centromere PSS (limited form) w/Crest syndrome variable Nuclear Dot [id number] Primary Biliary Cirrhosis Nuclear GP210, Primary Biliary Cirrhosis Membrane eleonora A,B,C Performed By: #### B CUSTOMER SALES ADVISOR, CMP, TSH, LIPID #### [facility] [address] [address] [address] Reji Thomas Nuclear Dot Pattern Normal [facility] Comment on above: Performed By: #### B CUSTOMER SALES ADVISOR, CMP, TSH, LIPID #### [facility] [address] [address] [address] Reji Thomas Nuclear Membrane Pattern Normal [facility] Comment on above: Performed By: #### B CUSTOMER SALES ADVISOR, CMP, TSH, LIPID #### [facility] [address] [address] [address] Reji Thomas Nucleolar Pattern Normal [facility] Comment on above: Performed By: #### B CUSTOMER SALES ADVISOR, CMP, TSH, LIPID #### [facility] [address] [address] [address] Reji Thomas PCNA Pattern Normal [facility] Comment on above: Performed By: #### B CUSTOMER SALES ADVISOR, CMP, TSH, LIPID #### [facility] [address] [address] [address] Reji Thomas Speckled Pattern Normal [facility] Comment on above: Performed By: #### B CUSTOMER SALES ADVISOR, CMP, TSH, LIPID #### [facility] [address] [address] [address] Reji Thomas Spindle Apparatus Pattern Normal [facility] Comment on above: Performed By: #### B CUSTOMER SALES ADVISOR, CMP, TSH, LIPID #### [facility] [address] [address] [address] Reji Thomas ANCA (ANTINEUTROPHIL CYTOPLA MSMIC ABon 04-18-2022 Atypical pANCA <1:20 Normal Neg:<1:20 [facility] Comment on above: Result Comment: Seru m is slightly hemolyzed The atypical pANCA pattern has been observed in a significant percentage of patients with ulcerative colitis, primary sclerosing cholangitis and autoimmune hepatitis. Performed By: #### B MP #### [facility] [address] [address] [address] Reji Thomas Cytoplasmic (C-ANCA) <1:20 Normal Neg:<1:20 [facility] Comment on above: Result Comment: Seru m is slightly hemolyzed Performed By: #### B MP #### [facility] [address] [address] [address] Reji Thomas Perinuclear (P-ANCA) <1:20 Normal Neg:<1:20 [facility] Comment [...] up testing of positive sera with both DC-3 and MPO-ANCA enzyme immunoassays. As many as 5% serum samples are positive only by EIA. Ref. AM J Clin Pathol 1999;111:507-513. Performed By: #### B MP #### [facility] [address] [place] [address] Dr. Reji Thomas ANTISCLERODERMA ABon 022 Antiscleroderma-70 Antibodies 0.3 AI Normal 0.0-0.9 [facility] Comment on above: Performed By: #### B CUSTOMER SALES ADVISOR, CMP, TSH, LIPID #### [facility] [address] [place] [address] Dr. Reji Thomas T3 UPTAKEon 04-18-2022 Free Thyroxine Index 1.8 Normal 1.2-4.9 [facility] Comment on above: Performed By: #### B CUSTOMER SALES ADVISOR, CMP, TSH, LIPID #### [facility] [address] [place] [address] Dr. Reji Thomas T3 Uptake 23 % Critically low 24-39 [facility] Comment on above: Performed By: #### B CUSTOMER SALES ADVISOR, CMP, TSH, LIPID #### [facility] [address] [address] [address] Reji Thomas T4 LABCORPon 04-18-2022 T4 [Mass/Vol] 7.8 ug/dL Normal 4.5-12.0 [facility] Comment on above: Performed By: #### B CUSTOMER SALES ADVISOR, CMP, TSH, LIPID #### [facility] [address] [place] [address] Dr. Reji Thomas BNPon 04-16-2022 Natriuretic peptide B (Bld) [Mass/Vol] 2870.0 pg/mL Critically high <=1,800.0 [facility] Comment on above: Result Comment: repe ated Performed By: #### B CUSTOMER SALES ADVISOR, CMP, TSH, LIPID #### [facility] [address] [place] [address] Dr. Reji Thomas CBC AUTO DIFFon 04-16-2022 BASO # 0.1 103/ul Normal 0.0-0.1 [facility] Comment on above: Performed By: #### B CUSTOMER SALES ADVISOR, CMP, TSH, LIPID #### [facility] [address] [place] [address] Dr. Reji Thomas Basophils/100 WBC (Bld) 0.9 % Normal 0.2-2.0 [facility] Comment on above: Performed By: #### B CUSTOMER SALES ADVISOR, CMP, TSH, LIPID #### [facility] [address] [place] [address] Dr. Reji Thomas EO # 0.3 103/ul Normal 0.0-0.7 [facility] Comment on above: Performed By: #### B CUSTOMER SALES ADVISOR, CMP, TSH, LIPID #### [facility] [address] [place] [address] Dr. Reji Thomas Eosinophils/100 WBC (Bld) 3.9 % Normal 0.9-7.0 [facility] Comment on above: Performed By: #### B CUSTOMER SALES ADVISOR, CMP, TSH, LIPID #### [facility] [address] [place] [address] Dr. Reji Thomas Erythrocyte distribution width (RBC) [Ratio] 15.9 % Critically high 11.0-15.0 [facility] Comment on above: Performed By: #### B CUSTOMER SALES ADVISOR, CMP, TSH, LIPID #### [facility] [address] [address] [address] Reji Thomas Hematocrit (Bld) [Volume fraction] 38.1 % Normal 36.0-48.0 [facility] Comment on above: Performed By: #### B CUSTOMER SALES ADVISOR, CMP, TSH, LIPID #### [facility] [address] [address] [address] Reji Thomas Hemoglobin (Bld) [Mass/Vol] 12.1 g/dL Normal 12.0-16.0 [facility] Comment on above: Performed By: #### B CUSTOMER SALES ADVISOR, CMP, TSH, LIPID #### [facility] [address] [place] [address] Dr. Reji Thomas IG # 0.02 10e3/ul Normal 0.00-0.03 [facility] Comment on above: Performed By: #### B CUSTOMER SALES ADVISOR, CMP, TSH, LIPID #### [facility] [address] [place] [address] Dr. Reji Thomas IG % 0.3 % Normal 0.0-0.5 [facility] Comment on above: Performed By: #### B CUSTOMER SALES ADVISOR, CMP, TSH, LIPID #### [facility] [address] [address] [address] Reji Thomas LYMPH # 1.6 103/ul Normal 1.2-3.8 [facility] Comment on above: Performed By: #### B CUSTOMER SALES ADVISOR, CMP, TSH, LIPID #### [facility] [address] [address] [address] Reji Thomas Lymphocytes/100 WBC (Bld) 22.6 % Normal 20.5-60.0 [facility] Comment on above: Performed By: #### B CUSTOMER SALES ADVISOR, CMP, TSH, LIPID #### [facility] [address] [address] [address] Reji Thomas MANUAL DIFF REQ NO Normal [facility] Comment on above: Performed By: #### B CUSTOMER SALES ADVISOR, CMP, TSH, LIPID #### [facility] [address] [place] [address] Dr. Reji Thomas MCH (RBC) [Entitic mass] 26.5 pg Critically low 26.7-34.0 [facility] Comment on above: Performed By: #### B CUSTOMER SALES ADVISOR, CMP, TSH, LIPID #### [facility] [address] [place] [address] Dr. Reji Thomas MCHC (RBC) [Mass/Vol] 31.8 g/dL Normal 29.9-35.2 [facility] Comment on above: Performed By: #### B CUSTOMER SALES ADVISOR, CMP, TSH, LIPID #### [facility] [address] [place] [address] Dr. Reji Thomas MCV (RBC) [Entitic vol] 83.4 fL Normal 81.0-99.0 [facility] Comment on above: Performed By: #### B CUSTOMER SALES ADVISOR, CMP, TSH, LIPID #### [facility] [address] [place] [address] Dr. Reji Thomas MONO # 0.6 103/ul Normal 0.3-0.8 [facility] Comment on above: Performed By: #### B CUSTOMER SALES ADVISOR, CMP, TSH, LIPID #### [facility] [address] [place] [address] Dr. Reji Thomas Monocytes/100 WBC (Bld) 9.3 % Normal 1.7-12.0 [facility] Comment on above: Performed By: #### B CUSTOMER SALES ADVISOR, CMP, TSH, LIPID #### [facility] [address] [place] [address] Dr. Reji Thomas NEUT # 4.3 103/ul Normal 1.4-6.5 [facility] Comment on above: Performed By: #### B CUSTOMER SALES ADVISOR, CMP, TSH, LIPID #### [facility] [address] [place] [address] Dr. Reji Thomas Neutrophils/100 WBC (Bld) 63.0 % Normal 43.0-75.0 [facility] Comment on above: Performed By: #### B CUSTOMER SALES ADVISOR, CMP, TSH, LIPID #### [facility] [address] [place] [address] Dr. Reji Thomas Platelet mean volume (Bld) [Entitic vol] 9.2 fL Critically low 9.5-13.5 [facility] Comment on above: Performed By: #### B CUSTOMER SALES ADVISOR, CMP, TSH, LIPID #### [facility] [address] [address] [address] Reji Thomas PLT 211 103/ul Normal 150-450 [facility] Comment on above: Performed By: #### B CUSTOMER SALES ADVISOR, CMP, TSH, LIPID #### [facility] [address] [address] [address] Reji Thomas RBC 4.57 106/ul Normal 4.20-5.40 [facility] Comment on above: Performed By: #### B CUSTOMER SALES ADVISOR, CMP, TSH, LIPID #### [facility] [address] [place] [address] Dr. Reji Thomas WBC 6.9 103/ul Normal 4.0-11.0 [facility] Comment on above: Performed By: #### B CUSTOMER SALES ADVISOR, CMP, TSH, LIPID #### [facility] [address] [place] [address] Dr. Reji Thomas GLYCOHEMOGLOBIN A1Con 2021 ADA RECOMMENDATION SEE BELOW Normal [facility] Comment on above: Result Comment: ADA RECOMMENDED LIMIT 4.0 - 6.0 ADA THERAPEUTIC TARGET < 7.0 ACTION SUGGESTED > 7.0 Performed By: #### B CUSTOMER SALES ADVISOR, CMP, TSH, LIPID #### [facility] [address] [place] [address] Dr. Reji Thomas Glucose [Mass/Vol] 100 mg/dL Normal [facility] Comment on above: Performed By: #### B CUSTOMER SALES ADVISOR, CMP, TSH, LIPID #### [facility] [address] [place] [address] Dr. Reji Thomas HbA1c (Bld) [Mass fraction] 5.1 % Normal 4.5-6.2 [facility] Comment on above: Performed By: #### B CUSTOMER SALES ADVISOR, CMP, TSH, LIPID #### [facility] [address] [place] [address] Dr. Reji Thomas IRONon 04-16-2022 Iron [Mass/Vol] 42.0 ug/dL Critically low 50.0-170.0 [facility] Comment on above: Performed By: #### B CUSTOMER SALES ADVISOR, CMP, TSH, LIPID #### [facility] [address] [address] [address] Reji Thomas LIPID PROFILEon 04-16-2022 CHOL-HDL RATIO NORM SEE BELOW Normal [facility] Comment on above: Result Comment: 3.3 - 4.4 LOW RISK 4.4 - 7.1 AVERAGE RISK 7.1 - 11.0 MODERATE RISK >11.0 HIGH RISK Performed By: #### B CUSTOMER SALES ADVISOR, CMP, TSH, LIPID #### [facility] [address] [address] [address] Reji Thomas Cholesterol [Mass/Vol] 176 mg/dL Normal <=200 [facility] Comment on above: Performed By: #### B CUSTOMER SALES ADVISOR, CMP, TSH, LIPID #### [facility] [address] [address] [address] Reji Thomas Cholesterol in HDL [Mass/Vol] 52 mg/dL Normal 40-60 [facility] Comment on above: Performed By: #### B CUSTOMER SALES ADVISOR, CMP, TSH, LIPID #### [facility] [address] [address] [address] Reji Thomas Cholesterol in LDL [Mass/Vol] 102.8 mg/dL Normal [facility] Comment on above: Performed By: #### B CUSTOMER SALES ADVISOR, CMP, TSH, LIPID #### [facility] [address] [address] [address] Reji Thomas Cholesterol.total/Ch olesterol in HDL [Mass ratio] 3.4 {ratio} Normal [facility] Comment on above: Performed By: #### B CUSTOMER SALES ADVISOR, CMP, TSH, LIPID #### [facility] [address] [place] [address] Dr. Reji Thomas HDL NORMAL > or = 60 mg/dl - LOW CARDIOVASCULAR RISK <40 mg/dl - HIGH CARDIOVASCULAR RISK Normal [facility] Comment on above: Performed By: #### B CUSTOMER SALES ADVISOR, CMP, TSH, LIPID #### [facility] [address] [place] [address] Dr. Reji Thomas LDL CALC NORMAL SEE BELOW Normal [facility] Comment on above: Result Comment: <100 mg/dl OPTIMAL 100 - 129 mg/dl NEAR OR ABOVE OPTIMAL 130 - 159 mg/dl BORDERLINE HIGH 160 - 189 mg/dl HIGH >190 mg/dl VERY HIGH Performed By: #### B CUSTOMER SALES ADVISOR, CMP, TSH, LIPID #### [facility] [address] [place] [address] Dr. Reji Thomas Triglyceride [Mass/Vol] 106 mg/dL Normal <=150 [facility] Comment on above: Performed By: #### B CUSTOMER SALES ADVISOR, CMP, TSH, LIPID #### [facility] [address] [place] [address] Dr. Reji Thomas VLDL CALC 21.2 mg/dL Normal [facility] Comment on above: Performed By: #### B CUSTOMER SALES ADVISOR, CMP, TSH, LIPID #### [facility] [address] [place] [address] Dr. Reji Thomas PROF 14(COMP METB)on 022 Albumin [Mass/Vol] 3.6 g/dL Normal 3.4-5.0 [facility] Comment on above: Performed By: #### B CUSTOMER SALES ADVISOR, CMP, TSH, LIPID #### [facility] [address] [place] [address] Dr. Reji Thomas Albumin/Globulin [Mass ratio] 0.9 {ratio} Normal [facility] Comment on above: Performed By: #### B CUSTOMER SALES ADVISOR, CMP, TSH, LIPID #### [facility] [address] [place] [address] Dr. Reji Thomas ALP [Catalytic activity/Vol] 62 U/L Normal 46-116 [facility] Comment on above: Performed By: #### B CUSTOMER SALES ADVISOR, CMP, TSH, LIPID #### [facility] [address] [place] [address] Dr. Reji Thomas ALT [Catalytic activity/Vol] 14 U/L Normal 14-59 [facility] Comment on above: Performed By: #### B CUSTOMER SALES ADVISOR, CMP, TSH, LIPID #### [facility] [address] [place] [address] Dr. Reji Thomas Anion gap [Moles/Vol] 14.5 mmol/L Normal [facility] Comment on above: Performed By: #### B CUSTOMER SALES ADVISOR, CMP, TSH, LIPID #### [facility] [address] [address] [address] Reji Thomas AST [Catalytic activity/Vol] 17 U/L Normal 15-37 [facility] Comment on above: Performed By: #### B CUSTOMER SALES ADVISOR, CMP, TSH, LIPID #### [facility] [address] [address] [address] Reji Thomas Bilirubin [Mass/Vol] 0.6 mg/dL Normal 0.2-1.0 [facility] Comment on above: Performed By: #### B CUSTOMER SALES ADVISOR, CMP, TSH, LIPID #### [facility] [address] [address] [address] Reji Thomas Calcium [Mass/Vol] 8.8 mg/dL Normal 8.5-10.1 [facility] Comment on above: Performed By: #### B CUSTOMER SALES ADVISOR, CMP, TSH, LIPID #### [facility] [address] [address] [address] Reji Thomas Chloride [Moles/Vol] 102 mmol/L Normal 98-107 [facility] Comment on above: Performed By: #### B CUSTOMER SALES ADVISOR, CMP, TSH, LIPID #### [facility] [address] [address] [address] Reji Thomas CO2 [Moles/Vol] 26.3 mmol/L Normal 21.0-32.0 [facility] Comment on above: Performed By: #### B CUSTOMER SALES ADVISOR, CMP, TSH, LIPID #### [facility] [address] [address] [address] Reji Thomas Creatinine [Mass/Vol] 1.76 mg/dL Critically high 0.55-1.02 [facility] Comment on above: Performed By: #### B CUSTOMER SALES ADVISOR, CMP, TSH, LIPID #### [facility] [address] [address] [address] Reji Thomas EGFR-AF BOLIVIAN 33 mL/min/1.73m2 Critically low >=60 [facility] Comment on above: Performed By: #### B CUSTOMER SALES ADVISOR, CMP, TSH, LIPID #### [facility] [address] [address] [address] Reji Thomas EGFR-NON AF BOLIVIAN 28 mL/min/1.73m2 Critically low >=60 [facility] Comment on above: Performed By: #### B CUSTOMER SALES ADVISOR, CMP, TSH, LIPID #### [facility] [address] [address] [address] Reji Thomas Globulin (S) [Mass/Vol] 4.2 g/dL Normal [facility] Comment on above: Performed By: #### B CUSTOMER SALES ADVISOR, CMP, TSH, LIPID #### [facility] [address] [address] [address] Reji Thomas Glucose [Mass/Vol] 81 mg/dL Normal 74-106 [facility] Comment on above: Performed By: #### B CUSTOMER SALES ADVISOR, CMP, TSH, LIPID #### [facility] [address] [place] [address] Dr. Reji Thomas Potassium [Moles/Vol] 3.8 mmol/L Normal 3.5-5.1 [facility] Comment on above: Performed By: #### B CUSTOMER SALES ADVISOR, CMP, TSH, LIPID #### [facility] [address] [place] [address] Dr. Reji Thomas Protein [Mass/Vol] 7.8 g/dL Normal 6.4-8.2 [facility] Comment on above: Performed By: #### B CUSTOMER SALES ADVISOR, CMP, TSH, LIPID #### [facility] [address] [place] [address] Dr. Reji Thomas Sodium [Moles/Vol] 139 mmol/L Normal 136-145 [facility] Comment on above: Performed By: #### B CUSTOMER SALES ADVISOR, CMP, TSH, LIPID #### [facility] [address] [place] [address] Dr. Reji Thomas Urea nitrogen [Mass/Vol] 27.0 mg/dL Critically high 7.0-18.0 [facility] Comment on above: Performed By: #### B CUSTOMER SALES ADVISOR, CMP, TSH, LIPID #### [facility] [address] [place] [address] Dr. Reji Thomas Urea nitrogen/Creatinine [Mass ratio] 15.3 mg/mg Normal [facility] Comment on above: Performed By: #### B CUSTOMER SALES ADVISOR, CMP, TSH, LIPID #### [facility] [address] [place] [address] Dr. Reji Thomas PROTIMEon 04-16-2022 INR Coag (PPP) [Relative time] 1.92 {INR} Normal [facility] Comment on above: Performed By: #### B CUSTOMER SALES ADVISOR, CMP, TSH, LIPID #### [facility] [address] [place] [address] Dr. Reji Thomas INR GUIDELINES SEE BELOW Normal [facility] Comment on above: Result Comment: SHY RED INR: 2.0 - 3.0 CONDITIONS NOT LISTED BELOW 2.5 - 3.5 FOR PROSTHETIC HEART VALVE REPLACEMENT 2.5 - 3.5 RECURRENT THROMBOSIS Performed By: #### B CUSTOMER SALES ADVISOR, CMP, TSH, LIPID #### [facility] [address] [place] [address] Dr. Reji Thomas PT Coag (PPP) [Time] 19.9 s Critically high 9.0-11.6 [facility] Comment on above: Performed By: #### B CUSTOMER SALES ADVISOR, CMP, TSH, LIPID #### [facility] [address] [place] [address] Dr. Reji Thomas [facility] 37 mm/hr Critically high <=30 [facility] Comment on above: Performed By: #### B CUSTOMER SALES ADVISOR, CMP, TSH, LIPID #### [facility] [address] [place] [address] Dr. Reji Thomas TSHon 04-16-2022 TSH 1.941 uIU/mL Normal 0.358-3.740 [facility] Comment on above: Performed By: #### B CUSTOMER SALES ADVISOR, CMP, TSH, LIPID #### [facility] [address] [place] [address] Dr. Rjei Thomas TSH RANGE SEE BELOW Normal [facility] Comment on above: Result Comment: <0.3 4 UIU/ml HYPERTHYROID 0.34-5.60 UIU/ml EUTHYROID >5.60 UIU/ml HYPOTHYROID Performed By: #### B CUSTOMER SALES ADVISOR, CMP, TSH, LIPID #### [facility] [address] [place] [address] Dr. Reji Thomas VITAMIN D 25 OHon 04-16-2022 VIT D 25-OH 56.6 ng/mL Normal [facility] Comment on above: Performed By: #### B CUSTOMER SALES ADVISOR, CMP, TSH, LIPID #### [facility] [address] [place], [place] [address] Dr. Reji Thomas VIT D RANGES SEE BELOW Normal [facility] Comment on above: Result Comment: <20 ng/mL Vit D deficient 20 - <30 ng/mL Vit D insufficient 30 - 100 ng/mL Vit D sufficient >100 ng/mL Potential Toxicity Performed By: #### B CUSTOMER SALES ADVISOR, CMP, TSH, LIPID #### [facility] [address] [address] [address] Reji Thomas Cardiovascular Lab Reporton 11-02-2021 Cardiovascular Lab Report [facility] Patient Name: Inez Juarez MR #: [id number] [facility] Physician: Jenn Prado M.D. Department of Service Date: 11/01/2021 Medicine Birthdate: 1940 Division of Room #: Cardiology Adult Cardiovascular Services [address] [place] [address] Cardiovascular Laboratory Report INDICATION: The patient is [...] She signed consent. She was brought to curb and gutter laborer in a fasting state. The right neck area was prepped and draped in usual fashion. Micropuncture technique and ultrasound guidance were used for access in the right internal jugular vein. A 6-Wolof x 11 cm sheath was placed. A 6-Wolof Hernández catheter was used for heart catheterization [...] Prado M.D. Date Trans: 11/01/2021 11:22 P/alondra [id number] cc: Bruce Rizvi M.D. [address] [address] Normal [facility] Cardiovascular Lab Reporton 06-02-2021 Cardiovascular Lab Report [facility] Patient Name: Inez Juarez MR #: [id number] [facility] Physician: Jenn Prado M.D. Department of Service Date: 06/02/2021 Medicine Birthdate: 1940 Division of Room #: CC Cardiology Adult Cardiovascular Services [place] [address] Cardiovascular Laboratory Report INDICATION: The patient is [...] the informed consent. She was brought to curb and gutter laborer in a fasting state. The right neck area was prepped and draped in usual fashion. Using micropuncture technique and ultrasound guidance, the right internal jugular vein was accessed and a 6-Wolof x 11 cm sheath was placed. A 6-Wolof Hernández catheter was used for heart catheterization [...] P/Jenn Prado M.D. Date Trans: 06/02/2021 02:42 P/mmo [id number] cc: Bruce Rizvi M.D. [address], [place] [address] [facility] Encounters Encounter Date Encounter Type Care Provider Facility Start: 06-28-2025 End: 06-28-2025 ambulatory [facility] Start: 07-03-2024 End: 07-03-2024 ambulatory [facility] Start: 03-22-2023 End: 03-23-[address] BRUCE [...] BRUCE RIZVI . Facility:[facility] Start: 06-04-2022 End: 07-26-[address] BRUCE RIZVI . Facility:[facility] Start: 05-15-2022 End: 06-08-[address] BRUCE RIZVI . Facility:[facility] Start: 05-04-2022 End: 05-05-[address] JENN PRADO Facility:[facility] Start: 04-16-2022 End: [address] BRUCE RIZVI . Facility:[facility] Start: 04-06-[address] BRUCE RIZVI . Facili ty:[facility] Start: 11-01-2021 End: 11-02-2021 ambulatory PROVIDER UNKNOWN Facility:[facility] Start: 06-02-2021 End: 06-03-2021 ambulatory PROVIDER UNKNOWN Facility:[facility] Payers Date Payer Category Payer Medicare [id number] 1961 Medicare [id number] 1961 Medicare [id number] 1961 Self-pay [id number] 1940 Unknown [id number] 2.16.8 [id number] 1940 Unknown [id number] 2.16.8 40.1.325971.3.579.2.647 1940 Unknown [id number] 2.16.84 0.1.969163.3.579.2.593 1940 Unknown [id number] 2.16.84 0.1.764608.3.579.2.593 1938 Unknown [id number] 2.16.84 0.1.768901.3.579.2.593 1938 Unknown [id number] 2.16.84 0.1.795892.3.579.2.593 1938 Unknown [id number] 2.16.84 0.1.983823.3.579.2.593 1938 Unknown [id number] 2.16.84 0.1.305582.3.579.2.593 1938 Unknown [id number] 2.16.84 0.1.078384.3.579.2.59 1938 Unknown [id number] 2.16.84 0.1.428109.3.579.2.593 1938 Unknown [id number] 2.16.84 0.1.590762.3.579.2.593 1938 Unknown [id number] 2.16.84 0.1.483107.3.579.2.593 1938 Unknown [id number] 2.16.84 0.1.288454.3.579.2.593 1938 Unknown [id number] 2.16.84 0.1.521667.3.579.2.593 1938 Unknown [id number] 2.16.84 0.1.442138.3.579.2.593 1938 Unknown [id number] 2.16.84 0.1.212163.3.579.2.593 1938 Unknown [id number] 2.16.84 0.1.353553.3.579.2.593 1938 Unknown [id number] 2.16.84 0.1.716965.3.579.2.593 1938 Unknown [id number] 2.16.84 0.1.120138.3.579.2.593 1938 Unknown [id number] 2.16.84 0.1.811592.3.579.2.593 1938 Unknown [id number] 2.16.84 0.1.682375.3.579.2.593 Private Health Insurance SDB [id number] Progress note 06-28-2025 Note Date & Type Note Facility 06-28-2025 Note [facility] [facility] Petrona Juarez is a 85 y.o. year old female patient being seen for a 1 year follow up with recent Echo. Patient states she feels pretty good just tired. Patient denies chest pain,palpitations/racing heart, dizziness/lightheadedness. Patient complains of SOB, BOURGEOIS, leg swelling, bruising/bleeding/discoloration, and loss of balance. Patient Active Problem List Diagnosis Atrial fibrillation [...] Substance Use Topics Alcohol use: Not Currently Drug use: Never HPI Inez is a 85-year-old woman who is seen in follow up [...] to 30 mg 3 times daily. She tolerated the increased dose very well. Follow-up echocardiogram 06/08/2024 showed an RVSP improved to 59 mmHg. Today she reports that she feels relatively okay but she does have shortness of breath on exertion WHO FC class II. She has no chest pain and no syncope. She does have lower extremity edema especially later in the day. Her recent echocardiogram 06/09/2025 showed further increase in her pulmonary pressures with an RVSP of 96 mmHg. Review of Systems Constitutional: Positive for night sweats. Eyes: Positive for blurred vision. Cardiovascular: Positive for leg swelling (intermittent). Hematologic/Lymphatic: Bruises/bleeds easily. Musculoskeletal: Positive for (more content not included)... [facility] Progress note 07-03-2024 Note Date & Type Note Facility 07-03-2024 Note [facility] [facility] Subjective Inez Juarez is a 84 y.o. year old [...] Pulse 50 Ht (more content not included)... [facility] Summary Purpose Family History No Family History Records FoundNo Family History Records FoundNo Family History Records FoundNo Family History Records Found Advance Directives No Advanced Directives Records FoundNo Advanced Directives Records FoundNo Advanced Directives Records FoundNo Advanced Directives Records Found Additional Source Comments INFORMATION SOURCE (unrecogn ized section and content) DATE CREATED AUTHOR 11/03/2021 [facility] DATE CREATED AUTHOR AUTHOR'S ORGANIZ ATION 07/05/2022 [facility] DATE CREATED AUTHOR AUTHOR'S ORGANIZ ATION 03/23/2023 [facility] DATE CREATED AUTHOR AUTHOR'S ORGANIZ ATION 06/29/2025 [facility] FOR RECORDS PERTAINING TO PATIENTS WHO ARE [...] BE BASED ON THE PRIMARY CLINICAL RECORDS. [facility] [employer] provides no warranty or guarantee of the accuracy or completeness of information in this document.
[2025-07-08 15:51] LABS: INR 2.42; Prothrombin Time 23.5 sec (9.0-11.6)
== END 2025-07-08 15:17 | disposition home or self-care (01) ==
LOC: LAB 15:17
PROVIDERS: PCP Family Medicine; Visit Provider Family Medicine
DX: I35.0 Nonrheumatic aortic (valve) stenosis (principal)
CPT/HCPCS: 36415; 85610

== ENCOUNTER 2025-08-03 16:01 | Outpatient (OUT) | payer MEDICARE, SELFPAY ==
--- OUTSIDE RECORDS SUMMARY | 2025-02-26 07:00 | XMS_ITS ---
Author Organization [facility] [place] Address [address] [place] [address] Care Team Providers Care Senior Manager Quality Assurance Name Role Phone Regino Rizvi Primary Care Provider [phone] REASON FOR VISIT 6mon Encounters Encounter Location Date Provider Diagnosis [facility] [address] [place] [address] 02/26/2025 Regino Rizvi Plan Of Treatment Next Appt Details Provider Name:Regino Rizvi, 11:00:00 AM, [address] [place], [address], Progress Notes * Inez JUAREZDOB:1940 (85 yo F)Acc No.[id number]:02/26/2025 UNLOCKED PROGRESS NOTE Progress Note Patient: Inez SHARPE Provider: Melvin Rizvi MD (TTC) :1940 A ge:84 Y S ex:Female Date:02/26/2025 Address:[facility] [address]-[address] Subjective: * Chief Complaints: * 1 . 6mon. * Medical History: Objective: * Vitals: Assessment: Plan: * Treatment: * * Electronic signature of Regino Rizvi MD, [id number] on 08/03/2025 at 04:05 PM EDT Sign off status: Pending Visit Status: O FF CANC (OFFICE CANCEL) * Provider: Melvin Rizvi MD (TTC) Date: 0 02/26/2025 Generated for Minda olivares/Roland/Piter on: 0 08/03/2025 04:05 PM EDT
--- OUTSIDE RECORDS SUMMARY | 2025-07-23 11:15 | XMS_ITS ---
Author Organization [facility] [place] Address [address] [place] [address] Care Team Providers Care Roller Billet Mill Name Role Phone Dmitri Regino Primary Care Provider REASON FOR VISIT wheezing not feeling well Encounters Encounter Location Date Provider Diagnosis [facility] [address] [place] [address] 07/23/2025 Regino Rizvi Plan Of Treatment Next Appt Details Provider Name:Regino Rizvi, 11:00:00 AM, [address] [place], [address], Progress Notes * LARRY InezDOB:1940 (85 yo F)Acc No.[id number]:07/23/2025 UNLOCKED PROGRESS NOTE Progress Note Patient: Inez SHARPE Provider: Melvin Rizvi MD (TTC) :1940 A ge:85 Y S ex:Female Date:07/23/2025 Address:[facility] [address], [id number] Subjective: * Chief Complaints: * 1 . Wheezing not feeling well. * Medical History: Objective: * Vitals: Assessment: Plan: * Treatment: * * Electronic signature of Regino Rizvi MD, [phone] on 08/03/2025 at 04:04 PM EDT Sign off status: Pending Visit Status: C ANCPHONE (Cancelled Phone) * Provider: Melvin Rizvi MD (TTC) Date: 0 07/23/2025 Generated for Minda olivares/Roland/Piter on: 0 08/03/2025 04:04 PM EDT
--- OUTSIDE RECORDS SUMMARY | 2025-08-03 16:05 | XMS_ITS | Encounter Summary ---
Author Organization [facility] Address [address] [place] [address] Care Team Providers Care Truer Pinion And Wheel Name Role Phone Yoel Rizvi MD Primary Care Provider [phone] Reason for Visit * Reason Comments Med Refill Encounter Details Date Type Department Care Team (Late st Contact Info) Description 05/15/2023 Refill [facility] [address] [place] [id number] Mitch Jc MD [address] [place] [address] Essential hypertension; Edema, unspecified type Social History Tobacco Use Types Packs/Day Years Used Date Smoking Tobacco: Never Smokeless Tobacco: Never Alcohol Use Standard Drinks/Week Comments Not Currently 0 (1 standard drink = 0.6 oz pur e alcohol) Comments Unknown Sex and Gender Information Value Date Recorded Sex Assigned at Female 06/23/2025 3:07 PM EDT Legal Sex Female 10:34 PM EDT Gender Identity Female 06/23/2025 3:07 PM EDT Sexual Orientation Heterosexual or Straight 06/11 3:07 PM EDT documented as of this encounter Plan of Treatment Upcoming Encounters Date Type Department Care Team (Late st Contact Info) Description 08/27/2025 1:00 PM EDT Office Visit [facility] [address] [place] [address] Mitch Jc MD [address] [place] [address] documented as of this encounter Visit Diagnoses Diagnosis Essential hypertension Unspecified essential hypertension Edema, unspecified type documented in this encounter Care Teams Truer Pinion And Wheel Relationship Specialty Start Date End Date Yoel Rizvi MD [address] [facility] [place] [address] PCP - General 10/22/22 documented as of this encounter
--- OUTSIDE RECORDS SUMMARY | 2025-08-03 16:05 | XMS_ITS | Clinical Summary ---
Author Organization [facility] Address [address] [place] [address] Care Team Providers Care Cook 3 Pastry Name Role Phone Yoel Rizvi MD Primary Care Provider [phone] Allergies No known active allergies Medications albuterol 90 mcg/actuation inhaler Active alendronate (Fosamax) 70 mg tablet Take 1 [...] by oral route for 90 days. Active sacubitriL-valsa rtan (Entresto) 24-26 mg tablet Take 0.5 tablets by mouth in the morning and at bedtime. Active warfarin (Coumadin) 5 mg tablet Active allopurinol (Zyloprim) 100 mg tablet 1 (one) time each day at the same time. 08/28/20 23 Active furosemide (Lasix) 80 mg tabletIndication s:Chronic diastolic congestive heart failure (CMS/HCC) TAKE 1 TABLET BY MOUTH IN THE MORNING 90 tablet 3 09/28/20 24 Active sildenafil (Revatio) 20 mg tabletIndication s:Pulmonary hypertension (CMS/HCC) TAKE ONE AND ONE-HALF TABLETS THREE TIMES A DAY (IN THE MORNING, AT NOON, AND AT BEDTIME) 405 tablet 2 11/19/19 25 Active potassium chloride CR (Klor-Con) 10 mEq ER tabletIndication s:Edema, unspecified type TAKE 1 TABLET BY MOUTH DAILY 90 tablet 3 12/02/19 25 Active amLODIPine (Norvasc) 10 mg tabletIndication s:Essential hypertension TAKE 1 TABLET BY MOUTH DAILY 90 tablet 3 02/26/20 25 Active metoprolol succinate XL (Toprol-XL) 25 mg 24 hr tabletIndication s:Essential hypertension TAKE ONE-HALF TABLET BY MOUTH DAILY 45 tablet 3 05/04/20 25 Active macitentan 10 mg tabletIndication s:Pulmonary hypertension (CMS/HCC) Take 10 mg by mouth in the morning. 90 tablet 3 06/28/20 25 026 Active macitentan 10 mg tabletIndication s:Pulmonary hypertension (CMS/HCC) Take 1 tablet by mouth in the morning. 90 tablet 3 06/29/20 25 026 Active furosemide (Lasix) 40 mg tabletIndication s:Chronic diastolic congestive heart failure (CMS/HCC) TAKE 1 TABLET BY MOUTH ONCE DAILY IN THE EVENING 90 tablet 3 07/16/20 25 Active furosemide (Lasix) 40 mg tabletIndication s:Chronic diastolic congestive heart failure (CMS/HCC) TAKE 1 TABLET BY MOUTH ONCE DAILY IN THE EVENING 90 tablet 3 09/03/20 24 025 Discontinued Active Problems Problem Noted Date Diagnosed Date [...] Encounters Date Type Department Care Team Description 07/15/2025 Refill [facility] [place] [address] [place] [address] Mitch Jc MD Chronic diastolic congestive heart failure (CMS/HCC) 06/29/[address] [facility] [address] [facility] [address] Ericka Grover MA Pulmonary hypertension (CMS/HCC) (Primary Dx) 06/28/2025 1:45 PM EDT Office Visit [facility] [address] [facility] [address] Mitch Jc MD Pulmonary hypertension (CMS/HCC) (Primary Dx); Chronic diastolic congestive heart failure (CMS/HCC); Longstanding persistent atrial fibrillation (CMS/HCC); Essential hypertension; Non-rheumatic mitral regurgitation; Nonrheumatic tricuspid valve regurgitation; Chronic kidney disease, stage 4 (severe) (CMS/HCC) 06/10/[address] [facility] [address] [place] [address] Provider, MD Estefany from Last 3 Months Family History Medical [...] Physically or Sexually Abused Not on file Comments No Sex and Gender Information Value Date Recorded Sex Assigned at Female 06/23/2025 3:07 PM EDT Legal Sex Female 10:34 PM EDT Gender Identity Female 06/23/2025 3:07 PM EDT Sexual Orientation Heterosexual or Straight 06/11 3:07 PM EDT Last Filed Vital Signs Vital Sign Reading Time Taken Comments Blood Pressure 144/57 06/28/2025 2:05 PM EDT Pulse 61 06/28/2025 2:05 PM EDT Temperature - - Respiratory Rate 17 10/22/2023 9:46 AM EST Oxygen Saturation 94% 06/28/2025 2:05 PM EDT Inhaled Oxygen Concentration - - Weight 61.7 kg (136 lb) 06/28/2025 2:05 PM EDT Height 152.4 cm (5') 06/28/2025 2:05 PM EDT Body Mass Index 26.56 06/28/2025 2:05 PM EDT Plan of Treatment Upcoming Encounters Date Type Department Care Team (Late st Contact Info) Description 08/27/2025 1:00 PM EDT Office Visit [facility] [address] [place] [address] Mitch Jc MD [address] [facility] [place] [address] Health Maintenance Due Date Last Done Comments Medicare Annual Wellness (AWV) 1940 Depression Screening 1950 Adult Tetanus 1960 Zoster Vaccines (1 of 2) 1988 Fall Risk Screening 2003 Pneumococcal Vaccine: 50+ Years (2 of 2 - PPSV23, PCV20, or PCV21) 03/17/2018 01/20/2018 COVID-19 Vaccine ( season) 2025 08/12/2024, 01/02/2024, 09/18/2022, Additional history exists Influenza Vaccine (#1) 2025 , 01/02/2024, 09/10/2022, Additional history exists HIB Vaccines Aged Out [...] on patient's age to complete this topic Procedures Procedure Name Priority Date/Time Associated Diagnosis Comments COMPLETE TRANSTHORACIC ECHO (TTE) W/WO IMAGING AGENT, STRAIN, 3D, BUBBLE STUDY Routine 06/09/2025 11:54 AM EDT from Last 3 Months Results * Complete Echo (TTE) w/wo Imaging Agent, Strain, 3D, Bubble Study (06/09/2025 11:54 AM EDT) Anatomical Region Laterality Modality Ultrasound Historical Provider MD NICOLE ECHO PROCEDURES Final Result from Last 3 Months Insurance [employer] MEDICARE Care Teams Cook 3 Pastry Relationship Specialty Start Date End Date Yoel Rizvi MD [address] [facility] [place] [address] PCP - General 10/22/22
--- OUTSIDE RECORDS SUMMARY | 2025-08-03 16:11 | XMS_ITS | CCD ---
Author Organization [facility] CliniSynv Care Team Providers Care Home Care Specialist Name Role Phone UNKNOWN, PROVIDER Attending Unavailable HOY, BRUCE Primary Care Unavailable HOY, BRUCE Referring Unavailable UNKNOWN, PROVIDER Admitting Unavailable UNKNOWN, PROVIDER Attending Unavailable HOY, BRUCE Primary Care Unavailable HOY, BURCE Referring Unavailable UNKNOWN, PROVIDER Admitting Unavailable HOY [...] DR BARRERA Consulting Unavailable HOY ., DR BARREAR Primary Care Unavailable HOY ., DR BARRERA Attending Unavailable HOY ., DR BARREAR Admitting Unavailable MOUKARBEL, DR BARAJAS Consulting Unavailable [...] 04-16-2022 Episodic Other aftercare (4 sources) Other technician terminal and repeater (current) drug therapy; Translations: [[facility] CURRENT DRUG THERAPY] Onset: 06-04-2022 Episodic Other [...] Range Facility Office Visiton 06-28-2025 Follow-up visit [id number] Inez Juarez 1940 Date Provider Department Center 06/28/2025 JENN AMANDA Family History Problem Relation Age of Onset Hypertension Mother Coronary artery disease Father Hypertension Father Family Status - Relation Status Age at Mother Father Level of Service:47[address] [place] OFFICE/OUTPATIENT ESTABLISHED MOD MDM 30 MIN Normal [facility] Orders Onlyon 06-10-2025 Orders Only [id number] Inez Juarez 1940 Provider Department Center 06/10/2025 [id number], [facility] LAURENCE Acuña Family History Problem Relation Age of Onset Hypertension Mother Coronary artery disease Father Hypertension Father Family Status - Relation Status Age at Mother Father Normal [facility] Office Visiton 07-03-2024 Follow-up visit [id number] Inez Juarez 1940 [facility] Provider Department Center 07/03/2024 JENN AMANDA Family History Problem Relation Age of Onset Hypertension Mother Coronary artery disease Father Hypertension Father Family Status - Relation Status Age at Mother Father Level of Service:02122 [place] OFFICE/OUTPATIENT ESTABLISHED LOW MDM 20 MIN Normal [facility] BNPon 03-22-2023 Natriuretic peptide B (Bld) [Mass/Vol] 1423.0 pg/mL Normal <=1,800.0 [facility] Comment on above: Performed By: #### B RN INFUSION, CMP, TSH, LIPID #### [facility] [address] [place] [address] Dr. Reji Thomas CBC AUTO DIFFon 03-22-2023 BASO # 0.1 103/ul Normal 0.0-0.1 [facility] Comment on above: Performed By: #### B MP #### [facility] [address] [place] [address] Dr. Reji Thomas Basophils/100 WBC (Bld) 1.0 % Normal 0.2-2.0 [facility] Comment on above: Performed By: #### B MP #### [facility] [address] [place] [address] Dr. Reji Thomas EO # 0.2 103/ul Normal 0.0-0.7 [facility] Comment on above: Performed By: #### B MP #### [facility] [address] [place] [address] Dr. Reji Thomas Eosinophils/100 WBC (Bld) 3.3 % Normal 0.9-7.0 [facility] Comment on above: Performed By: #### B MP #### [facility] [address] [place] [address] Dr. Reji Thomas Erythrocyte distribution width (RBC) [Ratio] 15.4 % Critically high 11.0-15.0 [facility] Comment on above: Performed By: #### B MP #### [facility] [address] [place] [address] Dr. Reji Thomas Hematocrit (Bld) [Volume fraction] 35.2 % Critically low 36.0-48.0 [facility] Comment on above: Performed By: #### B MP #### [facility] [address] [place] [address] Dr. Reji Thomas Hemoglobin (Bld) [Mass/Vol] 11.4 g/dL Critically low 12.0-16.0 [facility] Comment on above: Performed By: #### B MP #### [facility] [address] [address] [address] Reji Thomas IG # 0.02 10e3/ul Normal 0.00-0.03 [facility] Comment on above: Performed By: #### B MP #### [facility] [address] [place] [address] Dr. Reji Thomas IG % 0.3 % Normal 0.0-0.5 [facility] Comment on above: Performed By: #### B MP #### [facility] [address] [place] [address] Dr. Reji Thomas LYMPH # 1.4 103/ul Normal 1.2-3.8 [facility] Comment on above: Performed By: #### B MP #### [facility] [address] [place] [address] Dr. Reji Thomas Lymphocytes/100 WBC (Bld) 22.6 % Normal 20.5-60.0 [facility] Comment on above: Performed By: #### B MP #### [facility] [address] [place] [address] Dr. Reji Thomas MANUAL DIFF REQ NO Normal [facility] Comment on above: Performed By: #### B MP #### [facility] [address] [place] [address] Dr. Reji Thomas MCH (RBC) [Entitic mass] 27.0 pg Normal 26.7-34.0 [facility] Comment on above: Performed By: #### B MP #### [facility] [address] [place] [address] Dr. Reji Thomas MCHC (RBC) [Mass/Vol] 32.4 g/dL Normal 29.9-35.2 [facility] Comment on above: Performed By: #### B MP #### [facility] [address] [place] [address] Dr. Reji Thomas MCV (RBC) [Entitic vol] 83.2 fL Normal 81.0-99.0 [facility] Comment on above: Performed By: #### B MP #### [facility] [address] [address] [address] Reji Thomas MONO # 0.5 103/ul Normal 0.3-0.8 [facility] Comment on above: Performed By: #### B MP #### [facility] [address] [place] [address] Dr. Reji Thomas Monocytes/100 WBC (Bld) 8.5 % Normal 1.7-12.0 [facility] Comment on above: Performed By: #### B MP #### [facility] [address] [place] [address] Dr. Reji Thomas NEUT # 4.0 103/ul Normal 1.4-6.5 [facility] Comment on above: Performed By: #### B MP #### [facility] [address] [place] [address] Dr. Reji Thomas Neutrophils/100 WBC (Bld) 64.3 % Normal 43.0-75.0 [facility] Comment on above: Performed By: #### B MP #### [facility] [address] [place] [address] Dr. Reji Thomas Platelet mean volume (Bld) [Entitic vol] 8.9 fL Critically low 9.5-13.5 [facility] Comment on above: Performed By: #### B MP #### [facility] [address] [place] [address] Dr. Reji Thomas PLT 226 103/ul Normal 150-450 [facility] Comment on above: Performed By: #### B MP #### [facility] [address] [place] [address] Dr. Reji Thomas RBC 4.23 106/ul Normal 4.20-5.40 [facility] Comment on above: Performed By: #### B MP #### [facility] [address] [place] [address] Dr. Reji Thomas WBC 6.3 103/ul Normal 4.0-11.0 [facility] Comment on above: Performed By: #### B MP #### [facility] [address] [place] [address] Dr. Reji Thomas FREE THYROXINE INDEX T7on FTI 2.40 Normal 1.30-4.50 [facility] Comment on above: Performed By: #### B RN INFUSION, CMP, TSH, LIPID #### [facility] [address] [address] [address] Reji Thomas T3U 32.0 % Normal 30.0-39.0 [facility] Comment on above: Performed By: #### B RN INFUSION, CMP, TSH, LIPID #### [facility] [address] [address] [address] Reji Thomas T4 [Mass/Vol] 7.50 ug/dL Normal 4.80-13.90 [facility] Comment on above: Performed By: #### B RN INFUSION, CMP, TSH, LIPID #### [facility] [address] [place] [address] Dr. Reji Thomas GLYCOHEMOGLOBIN A1Con 2022 ADA RECOMMENDATION SEE BELOW Normal [facility] Comment on above: Result Comment: ADA RECOMMENDED LIMIT 4.0 - 6.0 ADA THERAPEUTIC TARGET < 7.0 ACTION SUGGESTED > 7.0 Performed By: #### B RN INFUSION, CMP, TSH, LIPID #### [facility] [address] [address] [address] Reji Thomas Glucose [Mass/Vol] 97 mg/dL Normal [facility] Comment on above: Performed By: #### B RN INFUSION, CMP, TSH, LIPID #### [facility] [address] [address] [address] Reji Thomas HbA1c (Bld) [Mass fraction] 5.0 % Normal 4.5-6.2 [facility] Comment on above: Performed By: #### B RN INFUSION, CMP, TSH, LIPID #### [facility] [address] [address] [address] Reji Thomas IRONon 03-22-2023 Iron [Mass/Vol] 47.0 ug/dL Critically low 50.0-170.0 [facility] Comment on above: Performed By: #### B RN INFUSION, CMP, TSH, LIPID #### [facility] [address] [place] [address] Dr. Reji Thomas LIPID PROFILEon 03-22-2023 CHOL-HDL RATIO NORM SEE BELOW Normal [facility] Comment on above: Result Comment: 3.3 - 4.4 LOW RISK 4.4 - 7.1 AVERAGE RISK 7.1 - 11.0 MODERATE RISK >11.0 HIGH RISK Performed By: #### M G, TSH, LIPID, T7, CMP, BNP #### [facility] [address] [address] [address] Reji Thomas Cholesterol [Mass/Vol] 188 mg/dL Normal <=200 [facility] Comment on above: Performed By: #### M G, TSH, LIPID, T7, CMP, BNP #### [facility] [address] [address] [address] Reji Thomas Cholesterol in HDL [Mass/Vol] 53 mg/dL Normal 40-60 [facility] Comment on above: Performed By: #### M G, TSH, LIPID, T7, CMP, BNP #### [facility] [address] [address] [address] Reij Thomas Cholesterol in LDL [Mass/Vol] 111.6 mg/dL Normal [facility] Comment on above: Performed By: #### M G, TSH, LIPID, T7, CMP, BNP #### [facility] [address] [address] [address] Reji Thomas Cholesterol.total/Ch olesterol in HDL [Mass ratio] 3.5 {ratio} Normal [facility] Comment on above: Performed By: #### M G, TSH, LIPID, T7, CMP, BNP #### [facility] [address] [address] [address] Reji Thomas HDL NORMAL > or = 60 mg/dl - LOW CARDIOVASCULAR RISK <40 mg/dl - HIGH CARDIOVASCULAR RISK Normal [facility] Comment on above: Performed By: #### M G, TSH, LIPID, T7, CMP, BNP #### [facility] [address] [address] [address] Reji Thomas LDL CALC NORMAL SEE BELOW Normal [facility] Comment on above: Result Comment: <100 mg/dl OPTIMAL 100 - 129 mg/dl NEAR OR ABOVE OPTIMAL 130 - 159 mg/dl BORDERLINE HIGH 160 - 189 mg/dl HIGH >190 mg/dl VERY HIGH Performed By: #### M G, TSH, LIPID, T7, CMP, BNP #### [facility] [address] [address] [address] Reji Thomas Triglyceride [Mass/Vol] 117 mg/dL Normal <=150 [facility] Comment on above: Performed By: #### M G, TSH, LIPID, T7, CMP, BNP #### [facility] [address] [address] [address] Reji Thomas VLDL CALC 23.4 mg/dL Normal [facility] Comment on above: Performed By: #### M G, TSH, LIPID, T7, CMP, BNP #### [facility] [address] [place] [address] Dr. Reji Thomas MAGNESIUMon 03-22-2023 Magnesium [Mass/Vol] 2.4 mg/dL Normal 1.8-2.4 [facility] Comment on above: Performed By: #### B RN INFUSION, CMP, TSH, LIPID #### [facility] [address] [place] [address] Dr. Reji Thomas PROF 14(COMP METB)on 023 Albumin [Mass/Vol] 3.4 g/dL Normal 3.4-5.0 [facility] Comment on above: Performed By: #### M G, TSH, LIPID, T7, CMP, BNP #### [facility] [address] [address] [address] Reji Thomas Albumin/Globulin [Mass ratio] 0.8 {ratio} Normal [facility] Comment on above: Performed By: #### M G, TSH, LIPID, T7, CMP, BNP #### [facility] [address] [address] [address] Reji Thomas ALP [Catalytic activity/Vol] 61 U/L Normal 46-116 [facility] Comment on above: Performed By: #### M G, TSH, LIPID, T7, CMP, BNP #### [facility] [address] [address] [address] Reji Thomas ALT [Catalytic activity/Vol] 15 U/L Normal 14-59 [facility] Comment on above: Performed By: #### M G, TSH, LIPID, T7, CMP, BNP #### [facility] [address] [place] [address] Dr. Reji Thomas Anion gap [Moles/Vol] 13.1 mmol/L Normal [facility] Comment on above: Performed By: #### M G, TSH, LIPID, T7, CMP, BNP #### [facility] [address] [address] [address] Reji Thomas AST [Catalytic activity/Vol] 13 U/L Critically low 15-37 [facility] Comment on above: Performed By: #### M G, TSH, LIPID, T7, CMP, BNP #### [facility] [address] [place] [address] Dr. Reji Thomas Bilirubin [Mass/Vol] 0.4 mg/dL Normal 0.2-1.0 [facility] Comment on above: Performed By: #### M G, TSH, LIPID, T7, CMP, BNP #### [facility] [address] [place] [address] Dr. Reji Thomas Calcium [Mass/Vol] 8.5 mg/dL Normal 8.5-10.1 [facility] Comment on above: Performed By: #### M G, TSH, LIPID, T7, CMP, BNP #### [facility] [address] [place] [address] Dr. Reji Thomas Chloride [Moles/Vol] 106 mmol/L Normal 98-107 [facility] Comment on above: Performed By: #### M G, TSH, LIPID, T7, CMP, BNP #### [facility] [address] [place] [address] Dr. Reji Thomas CO2 [Moles/Vol] 27.6 mmol/L Normal 21.0-32.0 [facility] Comment on above: Performed By: #### M G, TSH, LIPID, T7, CMP, BNP #### [facility] [address] [address] [address] Reji Thomas Creatinine [Mass/Vol] 2.32 mg/dL Critically high 0.55-1.02 [facility] Comment on above: Performed By: #### M G, TSH, LIPID, T7, CMP, BNP #### [facility] [address] [place] [address] Dr. Reji Thomas EGFR-AF SOMALI 24 mL/min/1.73m2 Critically low >=60 [facility] Comment on above: Performed By: #### M G, TSH, LIPID, T7, CMP, BNP #### [facility] [address] [address] [address] Reji Thomas EGFR-NON AF SOMALI 20 mL/min/1.73m2 Critically low >=60 [facility] Comment on above: Performed By: #### M G, TSH, LIPID, T7, CMP, BNP #### [facility] [address] [place] [address] Dr. Reji Thomas Globulin (S) [Mass/Vol] 4.3 g/dL Normal [facility] Comment on above: Performed By: #### M G, TSH, LIPID, T7, CMP, BNP #### [facility] [address] [place] [address] Dr. Reji Thomas Glucose [Mass/Vol] 88 mg/dL Normal 74-106 [facility] Comment on above: Performed By: #### M G, TSH, LIPID, T7, CMP, BNP #### [facility] [address] [place] [address] Dr. Reji Thomas Potassium [Moles/Vol] 4.7 mmol/L Normal 3.5-5.1 [facility] Comment on above: Performed By: #### M G, TSH, LIPID, T7, CMP, BNP #### [facility] [address] [place] [address] Dr. Reji Thomas Protein [Mass/Vol] 7.7 g/dL Normal 6.4-8.2 [facility] Comment on above: Performed By: #### M G, TSH, LIPID, T7, CMP, BNP #### [facility] [address] [place] [address] Dr. Reji Thomas Sodium [Moles/Vol] 142 mmol/L Normal 136-145 [facility] Comment on above: Performed By: #### M G, TSH, LIPID, T7, CMP, BNP #### [facility] [address] [place] [address] Dr. Reji Thomas Urea nitrogen [Mass/Vol] 38.0 mg/dL Critically high 7.0-18.0 [facility] Comment on above: Performed By: #### M G, TSH, LIPID, T7, CMP, BNP #### [facility] [address] [place] [address] Dr. Reji Thomas Urea nitrogen/Creatinine [Mass ratio] 16.4 mg/mg Normal [facility] Comment on above: Performed By: #### M G, TSH, LIPID, T7, CMP, BNP #### [facility] [address] [place] [address] Dr. Reji Thomas PROTIMEon 03-22-2023 INR Coag (PPP) [Relative time] 1.98 {INR} Normal [facility] Comment on above: Performed By: #### P T #### [facility] [address] [place] [address] Dr. Reji Thomas INR GUIDELINES SEE BELOW Normal [facility] Comment on above: Result Comment: SHY RED INR: 2.0 - 3.0 CONDITIONS NOT LISTED BELOW 2.5 - 3.5 FOR PROSTHETIC HEART VALVE REPLACEMENT 2.5 - 3.5 RECURRENT THROMBOSIS Performed By: #### P T #### [facility] [address] [place] [address] Dr. Reji Thomas PT Coag (PPP) [Time] 20.2 s Critically high 9.0-11.6 [facility] Comment on above: Performed By: #### P T #### [facility] [address] [place] [address] Dr. Reji Thomas TSHon 03-22-2023 TSH 2.265 uIU/mL Normal 0.358-3.740 [facility] Comment on above: Performed By: #### B RN INFUSION, CMP, TSH, LIPID #### [facility] [address] [place] [address] Dr. Reji Thomas VITAMIN D 25 OHon 03-22-2023 VIT D 25-OH 53.1 ng/mL Normal [facility] Comment on above: Performed By: #### B MP #### [facility] [address] [place] [address] Dr. Reji Thomas VIT D RANGES SEE BELOW Normal [facility] Comment on above: Result Comment: <20 ng/mL Vit D deficient 20 - <30 ng/mL Vit D insufficient 30 - 100 ng/mL Vit D sufficient >100 ng/mL Potential Toxicity Performed By: #### B MP #### [facility] [address] [place] [address] Dr. Reji Thomas PROTIMEon 02-22-2023 INR Coag (PPP) [Relative time] 2.22 {INR} Normal [facility] Comment on above: Performed By: #### B RN INFUSION, CMP, TSH, LIPID #### [facility] [address] [place] [address] Dr. Reji Thomas INR GUIDELINES SEE BELOW Normal [facility] Comment on above: Result Comment: SHY RED INR: 2.0 - 3.0 CONDITIONS NOT LISTED BELOW 2.5 - 3.5 FOR PROSTHETIC HEART VALVE REPLACEMENT 2.5 - 3.5 RECURRENT THROMBOSIS Performed By: #### B RN INFUSION, CMP, TSH, LIPID #### [facility] [address] [place] [address] Dr. Reji Thomas PT Coag (PPP) [Time] 22.5 s Critically high 9.0-11.6 [facility] Comment on above: Performed By: #### B RN INFUSION, CMP, TSH, LIPID #### [facility] [address] [place] [address] Dr. Reji Thomas PROTIMEon 01-03-2023 INR Coag (PPP) [Relative time] 2.53 {INR} Normal [facility] Comment on above: Performed By: #### B MP #### [facility] [address] [place] [address] Dr. Reji Thomas INR GUIDELINES SEE BELOW Normal [facility] Comment on above: Result Comment: SHY RED INR: 2.0 - 3.0 CONDITIONS NOT LISTED BELOW 2.5 - 3.5 FOR PROSTHETIC HEART VALVE REPLACEMENT 2.5 - 3.5 RECURRENT THROMBOSIS Performed By: #### B MP #### [facility] [address] [place] [address] Dr. Reji Thomas PT Coag (PPP) [Time] 25.4 s Critically high 9.0-11.6 [facility] Comment on above: Performed By: #### B MP #### [facility] [address] [place] [address] Dr. Reji Thomas PROTIMEon 11-23-2022 INR Coag (PPP) [Relative time] 1.71 {INR} Normal [facility] Comment on above: Performed By: #### B RN INFUSION, CMP, TSH, LIPID #### [facility] [address] [place] [address] Dr. Reji Thomas INR GUIDELINES SEE BELOW Normal [facility] Comment on above: Result Comment: SHY RED INR: 2.0 - 3.0 CONDITIONS NOT LISTED BELOW 2.5 - 3.5 FOR PROSTHETIC HEART VALVE REPLACEMENT 2.5 - 3.5 RECURRENT THROMBOSIS Performed By: #### B RN INFUSION, CMP, TSH, LIPID #### [facility] [address] [place] [address] Dr. Reji Thomas PT Coag (PPP) [Time] 17.6 s Critically high 9.0-11.6 [facility] Comment on above: Performed By: #### B RN INFUSION, CMP, TSH, LIPID #### [facility] [address] [place] [address] Dr. Reji Thomas PROTIMEon 10-10-2022 INR Coag (PPP) [Relative time] 2.52 {INR} Normal [facility] Comment on above: Performed By: #### B RN INFUSION, CMP, TSH, LIPID #### [facility] [address] [place] [address] Dr. Reji Thomas INR GUIDELINES SEE BELOW Normal [facility] Comment on above: Result Comment: SHY RED INR: 2.0 - 3.0 CONDITIONS NOT LISTED BELOW 2.5 - 3.5 FOR PROSTHETIC HEART VALVE REPLACEMENT 2.5 - 3.5 RECURRENT THROMBOSIS Performed By: #### B RN INFUSION, CMP, TSH, LIPID #### [facility] [address] [place] [address] Dr. Reji Thomas PT Coag (PPP) [Time] 25.6 s Critically high 9.0-11.6 [facility] Comment on above: Performed By: #### B RN INFUSION, CMP, TSH, LIPID #### [facility] [address] [place] [address] Dr. Reji Thomas PROTIMEon 09-05-2022 INR Coag (PPP) [Relative time] 2.03 {INR} Normal [facility] Comment on above: Performed By: #### B RN INFUSION, CMP, TSH, LIPID #### [facility] [address] [place] [address] Dr. Reji Thomas INR GUIDELINES SEE BELOW Normal [facility] Comment on above: Result Comment: SHY RED INR: 2.0 - 3.0 CONDITIONS NOT LISTED BELOW 2.5 - 3.5 FOR PROSTHETIC HEART VALVE REPLACEMENT 2.5 - 3.5 RECURRENT THROMBOSIS Performed By: #### B RN INFUSION, CMP, TSH, LIPID #### [facility] [address] [place] [address] Dr. Reji Thomas PT Coag (PPP) [Time] 20.9 s Critically high 9.0-11.6 [facility] Comment on above: Performed By: #### B RN INFUSION, CMP, TSH, LIPID #### [facility] [address] [place] [address] Dr. Reji Thomas BNPon 08-10-2022 Natriuretic peptide B (Bld) [Mass/Vol] 1162.0 pg/mL Normal <=1,800.0 [facility] Comment on above: Performed By: #### B MP, BNP #### [facility] [address] [place] [address] Dr. Reji Thomas PROF CHEM 8 (BAS METB)on Anion gap [Moles/Vol] 11.3 mmol/L Normal [facility] Comment on above: Performed By: #### B MP, BNP #### [facility] [address] [place] [address] Dr. Reji Thomas Calcium [Mass/Vol] 8.9 mg/dL Normal 8.5-10.1 [facility] Comment on above: Performed By: #### B MP, BNP #### [facility] [address] [place] [address] Dr. Reji Thomas Chloride [Moles/Vol] 103 mmol/L Normal 98-107 [facility] Comment on above: Performed By: #### B MP, BNP #### [facility] [address] [place] [address] Dr. Reji Thomas CO2 [Moles/Vol] 28.2 mmol/L Normal 21.0-32.0 [facility] Comment on above: Performed By: #### B MP, BNP #### [facility] [address] [place] [address] Dr. Reji Thomas Creatinine [Mass/Vol] 2.07 mg/dL Critically high 0.55-1.02 [facility] Comment on above: Performed By: #### B MP, BNP #### [facility] [address] [place] [address] Dr. Reji Thomas EGFR-AF SOMALI 28 mL/min/1.73m2 Critically low >=60 [facility] Comment on above: Performed By: #### B MP, BNP #### [facility] [address] [place] [address] Dr. Reji Thomas EGFR-NON AF SOMALI 23 mL/min/1.73m2 Critically low >=60 [facility] Comment on above: Performed By: #### B MP, BNP #### [facility] [address] [place] [address] Dr. Reji Thomas Glucose [Mass/Vol] 88 mg/dL Normal 74-106 [facility] Comment on above: Performed By: #### B MP, BNP #### [facility] [address] [place] [address] Dr. Reji Thomas Potassium [Moles/Vol] 4.5 mmol/L Normal 3.5-5.1 [facility] Comment on above: Performed By: #### B MP, BNP #### [facility] [address] [place] [address] Dr. Reji Thomas Sodium [Moles/Vol] 138 mmol/L Normal 136-145 [facility] Comment on above: Performed By: #### B MP, BNP #### [facility] [address] [place] [address] Dr. Reji Thomas Urea nitrogen [Mass/Vol] 35.0 mg/dL Critically high 7.0-18.0 [facility] Comment on above: Performed By: #### B MP, BNP #### [facility] [address] [place] [address] Dr. Reji Thomas Urea nitrogen/Creatinine [Mass ratio] 16.9 mg/mg Normal [facility] Comment on above: Performed By: #### B MP, BNP #### [facility] [address] [place] [address] Dr. Reji Thomas PROTIMEon 08-09-2022 INR Coag (PPP) [Relative time] 2.04 {INR} Normal [facility] Comment on above: Performed By: #### B RN INFUSION, CMP, TSH, LIPID #### [facility] [address] [place] [address] Dr. Reji Thomas INR GUIDELINES SEE BELOW Normal [facility] Comment on above: Result Comment: SHY RED INR: 2.0 - 3.0 CONDITIONS NOT LISTED BELOW 2.5 - 3.5 FOR PROSTHETIC HEART VALVE REPLACEMENT 2.5 - 3.5 RECURRENT THROMBOSIS Performed By: #### B RN INFUSION, CMP, TSH, LIPID #### [facility] [address] [place] [address] Dr. Reji Thomas PT Coag (PPP) [Time] 21.0 s Critically high 9.0-11.6 [facility] Comment on above: Performed By: #### B RN INFUSION, CMP, TSH, LIPID #### [facility] [address] [place] [address] Dr. Reji Thomas BNPon 07-09-2022 Natriuretic peptide B (Bld) [Mass/Vol] 2085.0 pg/mL Critically high <=1,800.0 [facility] Comment on above: Result Comment: LEX ACOSTA CALLED TO OFFICE ON 07-10-22 AT 0850 BY AR Performed By: #### B RN INFUSION, CMP, TSH, LIPID #### [facility] [address] [place] [address] Dr. Reji Thomas PROF CHEM 8 (BAS METB)on Anion gap [Moles/Vol] 13.7 mmol/L Normal [facility] Comment on above: Performed By: #### B RN INFUSION, CMP, TSH, LIPID #### [facility] [address] [place] [address] Dr. Reji Thomas Calcium [Mass/Vol] 8.3 mg/dL Critically low 8.5-10.1 Th [facility] Comment on above: Performed By: #### B RN INFUSION, CMP, TSH, LIPID #### [facility] [address] [place] [address] Dr. Reji Thomas Chloride [Moles/Vol] 104 mmol/L Normal 98-107 [facility] Comment on above: Performed By: #### B RN INFUSION, CMP, TSH, LIPID #### [facility] [address] [place] [address] Dr. Reji Thomas CO2 [Moles/Vol] 26.6 mmol/L Normal 21.0-32.0 [facility] Comment on above: Performed By: #### B RN INFUSION, CMP, TSH, LIPID #### [facility] [address] [place] [address] Dr. Reji Thomas Creatinine [Mass/Vol] 1.98 mg/dL Critically high 0.55-1.02 [facility] Comment on above: Performed By: #### B RN INFUSION, CMP, TSH, LIPID #### [facility] [address] [place] [address] Dr. Reji Thomas EGFR-AF SOMALI 29 mL/min/1.73m2 Critically low >=60 [facility] Comment on above: Performed By: #### B RN INFUSION, CMP, TSH, LIPID #### [facility] [address] [place] [address] Dr. Reji Thomas EGFR-NON AF SOMALI 24 mL/min/1.73m2 Critically low >=60 [facility] Comment on above: Performed By: #### B RN INFUSION, CMP, TSH, LIPID #### [facility] [address] [address] [address] Reji Thomas Glucose [Mass/Vol] 116 mg/dL Critically high 74-106 [facility] Comment on above: Performed By: #### B RN INFUSION, CMP, TSH, LIPID #### [facility] [address] [place] [address] Dr. Reji Thomas Potassium [Moles/Vol] 4.3 mmol/L Normal 3.5-5.1 [facility] Comment on above: Performed By: #### B RN INFUSION, CMP, TSH, LIPID #### [facility] [address] [place] [address] Dr. Reji Thomas Sodium [Moles/Vol] 140 mmol/L Normal 136-145 [facility] Comment on above: Performed By: #### B RN INFUSION, CMP, TSH, LIPID #### [facility] [address] [place] [address] Dr. Reji Thomas Urea nitrogen [Mass/Vol] 35.0 mg/dL Critically high 7.0-18.0 [facility] Comment on above: Performed By: #### B RN INFUSION, CMP, TSH, LIPID #### [facility] [address] [place] [address] Dr. Reji Thomas Urea nitrogen/Creatinine [Mass ratio] 17.7 mg/mg Normal [facility] Comment on above: Performed By: #### B RN INFUSION, CMP, TSH, LIPID #### [facility] [address] [place] [address] Dr. Reji Thomas PROTIMEon 07-09-2022 INR Coag (PPP) [Relative time] 2.99 {INR} Normal [facility] Comment on above: Performed By: #### B RN INFUSION, CMP, TSH, LIPID #### [facility] [address] [place] [address] Dr. Reji Thomas INR GUIDELINES SEE BELOW Normal [facility] Comment on above: Result Comment: SHY RED INR: 2.0 - 3.0 CONDITIONS NOT LISTED BELOW 2.5 - 3.5 FOR PROSTHETIC HEART VALVE REPLACEMENT 2.5 - 3.5 RECURRENT THROMBOSIS Performed By: #### B RN INFUSION, CMP, TSH, LIPID #### [facility] [address] [place], [place] [address] Dr. Reji Thomas PT Coag (PPP) [Time] 30.1 s Critically high 9.0-11.6 [facility] Comment on above: Performed By: #### B RN INFUSION, CMP, TSH, LIPID #### [facility] [address] [address] [address] Reji Thomas US KIDNEYSon 07-06-2022 US [...] SIGRID RICHMOND Date: 2022-07-06 13:31 Normal [facility] EVAN Antinuclear Antibodieson 06-19-2022 Antinuclear Abs, IFA Positive Critically abnormal . [facility] Comment on above: Result Comment: Nega tive <1:80 Borderline 1:80 Positive >1:80 Performed By: #### C UU, ADDONUAPLUS #### [address] #### C3, C4, CH50 #### [facility] , Homogeneous Pattern 1:320 High . [facility] Comment on above: Result Comment: ICAP nomenclature: [id number] Performed By: #### C MIKY CHOW #### [facility] [address] #### C3, C4, CH50 #### [facility] , Note 1 Normal . [facility] Comment on above: Result Comment: For more [...] titers Nucleosomes, Histones Drug-induced SLE Speckled Sm, SOLE MOLDING MACHINE OPERATOR, SCL-70, SLE,MCTD,PSS (diffuse form), SS-A/SS-B Sjogrens Nucleolar SCL-70, PM-1/SCL High titers Scleroderma, PM/DM Centromere Centromere PSS (limited form) w/Crest syndrome variable Nuclear Dot [id number] Primary Biliary Cirrhosis Nuclear GP210, Primary Biliary Cirrhosis Membrane eleonora A,B,C Performed at: [facility] [place] [address] [employer] Engine Optimizer: Demarcus Lawton PhD, Phone: [phone] Performed By: #### COURTNEY GOMEZONUAPLUS #### [address] #### C3, C4, CH50 #### [facility] , Anti-RNPon 06-19-2022 Anti-SOLE MOLDING MACHINE OPERATOR 0.4 Normal 0.0-0.9 [facility] Comment on above: Result Comment: Perf ormed at: [place] [address] [employer] Engine Optimizer: Demarcus Lawton PhD, Phone: [phone] Performed By: #### Krista CHOW, ADDONUAPLUS #### [address] #### C3, C4, CH50 #### [facility] , C-Reactive Proteinon 022 C-Reactive Protein 2.0 mg/dL High 0.0-1.0 [facility] Comment on above: Result Comment: PERF ORMED BY: [place] [address] PATHOLOGIST SHROUDMAN RADHA BULLARD M.D. Performed By: #### C UU, ADDONUAPLUS #### [address] #### C3, C4, CH50 #### [facility] , Complement C3on 06-19-2022 Complement C3 167 mg/dL Normal 82-167 [facility] Comment on above: Result Comment: Perf ormed at: [facility] [employer] [id number] [employer] Engine Optimizer: Demarcus Lawton PhD, Phone: [phone] Performed By: #### C UU, ADDONUAPLUS #### [address] #### C3, C4, CH50 #### [facility] , Complement C4on 06-19-2022 Complement C4 37 mg/dL Normal 12-38 [facility] Comment on above: Performed By: #### C UU, ADDONUAPLUS #### [address] #### C3, C4, CH50 #### [facility] , Complement Total (CH50)on Complement Total (CH50) >60 Normal >41 [facility] Comment on above: Result Comment: Age Male [...] determine out of range values. Performed at: [employer] [id number] [employer] Engine Optimizer: Demarcus Lawton PhD, Phone: [phone] PERFORMED BY: [place] [address] PATHOLOGIST SHROUDMAN RAHDA BULLARD M.D. Performed By: #### C UU, ADDONUAPLUS #### [address] #### C3, C4, CH50 #### [facility] , Complete Blood Count Auto Di ffon 06-19-2022 Basophils (Bld) [#/Vol] 0.1 10*3/uL Normal 0.0-0.2 [facility] Comment on above: Performed By: #### H EPATIC, CBC, ESR, CRP, CREAT, CK #### [place] [address] [place] #### RNA POLYMR, ANTI TH TO, EVAN, U3 SOLE MOLDING MACHINE OPERATOR, ANTIR, PM-SCL ABS #### [facility] , Basophils/100 WBC (Bld) 0.9 % Normal . [facility] Comment on above: Performed By: #### H EPATIC, CBC, ESR, CRP, CREAT, CK #### [place] [address] [place] #### RNA POLYMR, ANTI TH TO, EVAN, U3 SOLE MOLDING MACHINE OPERATOR, ANTIR, PM-SCL ABS #### [facility] , Eosinophils (Bld) [#/Vol] 0.5 10*3/uL High 0.0-0.45 [facility] Comment on above: Performed By: #### H EPATIC, CBC, ESR, CRP, CREAT, CK #### [place] [address] [place] #### RNA POLYMR, ANTI TH TO, EVAN, U3 SOLE MOLDING MACHINE OPERATOR, ANTIR, PM-SCL ABS #### [facility] , Eosinophils/100 WBC (Bld) 8.6 % Normal . [facility] Comment on above: Performed By: #### H EPATIC, CBC, ESR, CRP, CREAT, CK #### [address] #### RNA POLYMR, ANTI TH TO, EVAN, U3 SOLE MOLDING MACHINE OPERATOR, ANTIR, PM-SCL ABS #### [facility] , Erythrocyte distribution width (RBC) [Ratio] 19.6 % High 11.9-15.3 [facility] Comment on above: Performed By: #### H EPATIC, CBC, ESR, CRP, CREAT, CK #### [place] [address] [place] #### RNA POLYMR, ANTI TH TO, EVAN, U3 SOLE MOLDING MACHINE OPERATOR, ANTIR, PM-SCL ABS #### [facility] , Hematocrit (Bld) [Volume fraction] 33.8 % Low 34.0-46.4 [facility] Comment on above: Performed By: #### H EPATIC, CBC, ESR, CRP, CREAT, CK #### [address] #### RNA POLYMR, ANTI TH TO, EVAN, U3 SOLE MOLDING MACHINE OPERATOR, ANTIR, PM-SCL ABS #### [facility] , Hemoglobin (Bld) [Mass/Vol] 10.9 g/dL Low 11.8-15.4 [facility] Comment on above: Performed By: #### H EPATIC, CBC, ESR, CRP, CREAT, CK #### [place] [address] [place] #### RNA POLYMR, ANTI TH TO, EVAN, U3 SOLE MOLDING MACHINE OPERATOR, ANTIR, PM-SCL ABS #### [facility] , Lymphocytes (Bld) [#/Vol] 1.1 10*3/uL Normal 1.00-4.8 [facility] Comment on above: Performed By: #### H EPATIC, CBC, ESR, CRP, CREAT, CK #### [address] #### RNA POLYMR, ANTI TH TO, EVAN, U3 SOLE MOLDING MACHINE OPERATOR, ANTIR, PM-SCL ABS #### [facility] , Lymphocytes/100 WBC (Bld) 17.8 % Normal . [facility] Comment on above: Performed By: #### H EPATIC, CBC, ESR, CRP, CREAT, CK #### [facility] [address] [place] [address] #### RNA POLYMR, ANTI TH TO, EVAN, U3 SOLE MOLDING MACHINE OPERATOR, ANTIR, PM-SCL ABS #### [facility] , MCH (RBC) [Entitic mass] 26.4 pg Normal 24.7-34.3 [facility] Comment on above: Performed By: #### H EPATIC, CBC, ESR, CRP, CREAT, CK #### [facility] [address] [place] [address] #### RNA POLYMR, ANTI TH TO, EVAN, U3 SOLE MOLDING MACHINE OPERATOR, ANTIR, PM-SCL ABS #### [facility] , MCV (RBC) [Entitic vol] 81.8 fL Normal 80-100 [facility] Comment on above: Performed By: #### H EPATIC, CBC, ESR, CRP, CREAT, CK #### [address] #### RNA POLYMR, ANTI TH TO, EVAN, U3 SOLE MOLDING MACHINE OPERATOR, ANTIR, PM-SCL ABS #### [facility] , Mean Corpuscular HGB Conc 32.3 g/dL Normal 32.0-35.0 [facility] Comment on above: Performed By: #### H EPATIC, CBC, ESR, CRP, CREAT, CK #### [facility] [address] [place] [address] [place] #### RNA POLYMR, ANTI TH TO, EVAN, U3 SOLE MOLDING MACHINE OPERATOR, ANTIR, PM-SCL ABS #### [facility] , Monocytes (Bld) [#/Vol] 0.4 10*3/uL Normal 0.0-0.8 [facility] Comment on above: Performed By: #### H EPATIC, CBC, ESR, CRP, CREAT, CK #### [place] [address] [place] #### RNA POLYMR, ANTI TH TO, EVAN, U3 SOLE MOLDING MACHINE OPERATOR, ANTIR, PM-SCL ABS #### [facility] , Monocytes/100 WBC (Bld) 7.4 % Normal . [facility] Comment on above: Performed By: #### H EPATIC, CBC, ESR, CRP, CREAT, CK #### [place] [address] [place] #### RNA POLYMR, ANTI TH TO, EVAN, U3 SOLE MOLDING MACHINE OPERATOR, ANTIR, PM-SCL ABS #### [facility] , Neutrophils (Bld) [#/Vol] 3.9 10*3/uL Normal 1.8-7.7 [facility] Comment on above: Performed By: #### H EPATIC, CBC, ESR, CRP, CREAT, CK #### [place] [address] [place] #### RNA POLYMR, ANTI TH TO, EVAN, U3 SOLE MOLDING MACHINE OPERATOR, ANTIR, PM-SCL ABS #### [facility] , Neutrophils/100 WBC (Bld) 65.3 % Normal . [facility] Comment on above: Performed By: #### H EPATIC, CBC, ESR, CRP, CREAT, CK #### [place] [address] [place] #### RNA POLYMR, ANTI TH TO, EVAN, U3 SOLE MOLDING MACHINE OPERATOR, ANTIR, PM-SCL ABS #### [facility] , Nucleated RBC/100 WBC (Bld) [Ratio] 0.0 % Normal 0-0.5 [facility] Comment on above: Performed By: #### H EPATIC, CBC, ESR, CRP, CREAT, CK #### [place] [address] [place] #### RNA POLYMR, ANTI TH TO, EVAN, U3 SOLE MOLDING MACHINE OPERATOR, ANTIR, PM-SCL ABS #### [facility] , Platelet mean volume (Bld) [Entitic vol] 7.2 fL Normal 6.3-10.7 [facility] Comment on above: Performed By: #### H EPATIC, CBC, ESR, CRP, CREAT, CK #### [facility] [address] [place] [address] #### RNA POLYMR, ANTI TH TO, EVAN, U3 SOLE MOLDING MACHINE OPERATOR, ANTIR, PM-SCL ABS #### [facility] , Platelets (Bld) [#/Vol] 237 10*3/uL Normal 150-450 [facility] Comment on above: Performed By: #### H EPATIC, CBC, ESR, CRP, CREAT, CK #### [facility] [address] [place] [address] #### RNA POLYMR, ANTI TH TO, EVAN, U3 SOLE MOLDING MACHINE OPERATOR, ANTIR, PM-SCL ABS #### [facility] , RBC (Bld) [#/Vol] 4.14 10*6/uL Normal 3.60-5.00 [facility] Comment on above: Performed By: #### H EPATIC, CBC, ESR, CRP, CREAT, CK #### [facility] [address] [place] [address] #### RNA POLYMR, ANTI TH TO, EVAN, U3 SOLE MOLDING MACHINE OPERATOR, ANTIR, PM-SCL ABS #### [facility] , WBC (Bld) [#/Vol] 6.0 10*3/uL Normal 4.5-11.0 [facility] Comment on above: Performed By: #### H EPATIC, CBC, ESR, CRP, CREAT, CK #### [facility] [address] [place] [address] [place] #### RNA POLYMR, ANTI TH TO, EVAN, U3 SOLE MOLDING MACHINE OPERATOR, ANTIR, PM-SCL ABS #### [facility] , Creatine Kinaseon 06-19-2022 CK [Catalytic activity/Vol] 38 U/L Normal 22-269 [facility] Comment on above: Result Comment: PERF ORMED BY: [place] [address] PATHOLOGIST SHROUDMAN RADHA BULLARD M.D. Performed By: #### H EPATIC, CBC, ESR, CRP, CREAT, CK #### [address] #### RNA POLYMR, ANTI TH TO, EVAN, U3 SOLE MOLDING MACHINE OPERATOR, ANTIR, PM-SCL ABS #### [facility] , Creatinineon 06-19-2022 Creatinine [Mass/Vol] 2.82 mg/dL High 0.44-1.03 [facility] Comment on above: Performed By: #### H EPATIC, CBC, ESR, CRP, CREAT, CK #### [address] #### RNA POLYMR, ANTI TH TO, EVAN, U3 SOLE MOLDING MACHINE OPERATOR, ANTIR, PM-SCL ABS #### [facility] , Estimated GFR ( [place] 19 [facility] Comment on above: Result Comment: GFR estimated reference range: According to KDOQI guidelines, <60 ml/min/1.73m2 is sufficient to diagnose a patient with chronic kidney disease. Performed By: #### H EPATIC, CBC, ESR, CRP, CREAT, CK #### [address] #### RNA POLYMR, ANTI TH TO, EVAN, U3 SOLE MOLDING MACHINE OPERATOR, ANTIR, PM-SCL ABS #### [facility] , Estimated GFR (Non- Am 16 [facility] Comment on above: Performed By: #### H EPATIC, CBC, ESR, CRP, CREAT, CK #### [facility] [address] [place] [address] [place] #### RNA POLYMR, ANTI TH TO, EVAN, U3 SOLE MOLDING MACHINE OPERATOR, ANTIR, PM-SCL ABS #### [facility] , Dipstick and Microscopicon 0 06-19-2022 Appearance (U) Cloudy Critically abnormal Clear [facility] Comment on above: Order Comment: Name Collection Type:: Clean-Voided Midstream Performed By: #### C UU, ADDONUAPLUS #### [facility] [address] [place] [address] #### C3, C4, CH50 #### [facility] , Bacteria,Urine 1+ High None Seen [facility] Comment on above: Order Comment: Name Collection Type:: Clean-Voided Midstream Performed By: #### C UU, ADDONUAPLUS #### [facility] [address] [place] [address] #### C3, C4, CH50 #### [facility] , Bilirubin,Urine Negative Normal Negative [facility] Comment on above: Order Comment: Name Collection Type:: Clean-Voided Midstream Performed By: #### C UU, ADDONUAPLUS #### [facility] [address] [place] [address] #### C3, C4, CH50 #### [facility] , Color (U) Yellow Normal Yellow [facility] Comment on above: Order Comment: Name Collection Type:: Clean-Voided Midstream Performed By: #### C UU, ADDONUAPLUS #### [facility] [address] [place] [address] #### C3, C4, CH50 #### [facility] , Glucose Ql (U) Normal Normal Normal [facility] Comment on above: Order Comment: Name Collection Type:: Clean-Voided Midstream Performed By: #### C UU, ADDONUAPLUS #### [facility] [address] [place] [address] #### C3, C4, CH50 #### [facility] , Hyaline Casts,Urine 1-2 Normal 0-8 [facility] Comment on above: Order Comment: Name Collection Type:: Clean-Voided Midstream Result Comment: PERF ORMED BY: [place] [address] PATHOLOGIST SHROUDMAN RADHA BULLARD M.D. Performed By: #### C UU, ADDONUAPLUS #### [address] #### C3, C4, CH50 #### [facility] , Ketones Ql (U) Negative Normal Negative [facility] Comment on above: Order Comment: Name Collection Type:: Clean-Voided Midstream Performed By: #### C UU, ADDONUAPLUS #### [address] #### C3, C4, CH50 #### [facility] , Leukocyte esterase Test strip Ql (U) 4+ High Negative [facility] Comment on above: Order Comment: Name Collection Type:: Clean-Voided Midstream Performed By: #### C UU, ADDONUAPLUS #### [address] #### C3, C4, CH50 #### [facility] , Nitrite,Urine Negative Normal Negative [facility] Comment on above: Order Comment: Name Collection Type:: Clean-Voided Midstream Performed By: #### C UU, ADDONUAPLUS #### [address] #### C3, C4, CH50 #### [facility] , Occult Blood,Urine 1+ High Negative [facility] Comment on above: Order Comment: Name Collection Type:: Clean-Voided Midstream Performed By: #### C UU, ADDONUAPLUS #### [address] #### C3, C4, CH50 #### [facility] , pH (U) 6.5 [pH] Normal 5.0-9.0 [facility] Comment on above: Order Comment: Name Collection Type:: Clean-Voided Midstream Performed By: #### C UU, ADDONUAPLUS #### [address] [place] [address] [place] #### C3, C4, CH50 #### [facility] , Protein,Urine Trace High Negative [facility] Comment on above: Order Comment: Name Collection Type:: Clean-Voided Midstream Performed By: #### C UU, ADDONUAPLUS #### [address] #### C3, C4, CH50 #### [facility] , RBC,Urine 1-2 Normal 0-4 [facility] Comment on above: Order Comment: Name Collection Type:: Clean-Voided Midstream Performed By: #### C UU, ADDONUAPLUS #### [address] #### C3, C4, CH50 #### [facility] , Specificy [place],Urine 1.010 Normal 1.001-1.030 [facility] Comment on above: Order Comment: Name Collection Type:: Clean-Voided Midstream Performed By: #### C UU, ADDONUAPLUS #### [address] #### C3, C4, CH50 #### [facility] , Squamous Epithelial Cell,Urine 5-9 High 0-2 [facility] Comment on above: Order Comment: Name Collection Type:: Clean-Voided Midstream Performed By: #### C UU, ADDONUAPLUS #### [address] #### C3, C4, CH50 #### [facility] , Urobilinogen,Urine Normal Normal Normal [facility] Comment on above: Order Comment: Name Collection Type:: Clean-Voided Midstream Performed By: #### C UU, ADDONUAPLUS #### [address] #### C3, C4, CH50 #### [facility] , WBC,Urine Innumerable High 0-4 [facility] Comment on above: Order Comment: Name Collection Type:: Clean-Voided Midstream Performed By: #### C UU, ADDONUAPLUS #### [address] #### C3, C4, CH50 #### [facility] , Erythrocyte Sedimentation Ra pratik 06-19-2022 ESR (Bld) [Velocity] 57 mm/h High 0-29 [facility] Comment on above: Result Comment: PERF ORMED BY: [place] [address] PATHOLOGIST SHROUDMAN RADHA BULLARD M.D. Performed By: #### H EPATIC, CBC, ESR, CRP, CREAT, CK #### [address] #### RNA POLYMR, ANTI TH TO, EVAN, U3 SOLE MOLDING MACHINE OPERATOR, ANTIR, PM-SCL ABS #### [facility] , Hepatic Panelon 06-19-2022 Albumin [Mass/Vol] 3.6 g/dL Normal 3.2-5.5 [facility] Comment on above: Performed By: #### H EPATIC, CBC, ESR, CRP, CREAT, CK #### [facility] [address] [place] [address] #### RNA POLYMR, ANTI TH TO, EVAN, U3 SOLE MOLDING MACHINE OPERATOR, ANTIR, PM-SCL ABS #### [facility] , Albumin/Globulin [Mass ratio] 1.0 {ratio} Normal [facility] Comment on above: Performed By: #### H EPATIC, CBC, ESR, CRP, CREAT, CK #### [facility] [address] [place] [address] [place] #### RNA POLYMR, ANTI TH TO, EVAN, U3 SOLE MOLDING MACHINE OPERATOR, ANTIR, PM-SCL ABS #### [facility] , ALP [Catalytic activity/Vol] 68 U/L Normal 32-92 [facility] Comment on above: Performed By: #### H EPATIC, CBC, ESR, CRP, CREAT, CK #### [facility] [address] [place] [address] [place] #### RNA POLYMR, ANTI TH TO, EVAN, U3 SOLE MOLDING MACHINE OPERATOR, ANTIR, PM-SCL ABS #### [facility] , ALT [Catalytic activity/Vol] 9 U/L Low 10-60 [facility] Comment on above: Performed By: #### H EPATIC, CBC, ESR, CRP, CREAT, CK #### [facility] [address] [place] [address] [place] #### RNA POLYMR, ANTI TH TO, EVAN, U3 SOLE MOLDING MACHINE OPERATOR, ANTIR, PM-SCL ABS #### [facility] , AST [Catalytic activity/Vol] 15 U/L Normal 1042 [facility] Comment on above: Performed By: #### H EPATIC, CBC, ESR, CRP, CREAT, CK #### [place] [address] [place] #### RNA POLYMR, ANTI TH TO, EVAN, U3 SOLE MOLDING MACHINE OPERATOR, ANTIR, PM-SCL ABS #### [facility] , Bilirubin [Mass/Vol] 0.6 mg/dL Normal 0.3-1.2 [facility] Comment on above: Performed By: #### H EPATIC, CBC, ESR, CRP, CREAT, CK #### [facility] [address] [place] [address] [place] #### RNA POLYMR, ANTI TH TO, EVAN, U3 SOLE MOLDING MACHINE OPERATOR, ANTIR, PM-SCL ABS #### [facility] , Bilirubin,Indirect 0.4 mg/dL Normal [facility] Comment on above: Performed By: #### H EPATIC, CBC, ESR, CRP, CREAT, CK #### [place] [address] [place] #### RNA POLYMR, ANTI TH TO, EVAN, U3 SOLE MOLDING MACHINE OPERATOR, ANTIR, PM-SCL ABS #### [facility] , Bilirubin.indirect [Mass/Vol] 0.2 mg/dL Normal 0.0-0.4 [facility] Comment on above: Performed By: #### H EPATIC, CBC, ESR, CRP, CREAT, CK #### [address] #### RNA POLYMR, ANTI TH TO, EVAN, U3 SOLE MOLDING MACHINE OPERATOR, ANTIR, PM-SCL ABS #### [facility] , Globulin (S) [Mass/Vol] 3.5 g/dL Normal [facility] Comment on above: Performed By: #### H EPATIC, CBC, ESR, CRP, CREAT, CK #### [address] #### RNA POLYMR, ANTI TH TO, EVAN, U3 SOLE MOLDING MACHINE OPERATOR, ANTIR, PM-SCL ABS #### [facility] , Protein [Mass/Vol] 7.1 g/dL Normal 6.1-7.9 [facility] Comment on above: Performed By: #### H EPATIC, CBC, ESR, CRP, CREAT, CK #### [place] [address] [place] #### RNA POLYMR, ANTI TH TO, EVAN, U3 SOLE MOLDING MACHINE OPERATOR, ANTIR, PM-SCL ABS #### [facility] , PM-SCL Antibodieson 06-19-20 22 RAIZA PM-Scl Antibody <20 Normal <20 [facility] Comment on above: Result Comment: This test was developed and its performance characteristics determined by [facility]. It has not been cleared or approved by the Food and Drug Administration. Negative: <20 Weak Positive: 20 - 39 Moderate Positive: 40 - 80 Strong Positive: >80 Performed at: [facility] [address] [place] [address] [id number] Search Engine Optimizer: Artemio Nair MD, Phone: [phone] Performed By: #### C UU, ADDONUAPLUS #### [address] [place] [address] [place] #### C3, C4, CH50 #### [facility] , RNA Polymerase IIion 022 RNA Polymerase IIi <20 Normal <20 [facility] Comment on above: Result Comment: Nega tive: <20 Weak Positive: 20 - 39 Moderate Positive: 40 - 80 Strong Positive: >80 Performed at: [facility] [address] [place] [address] [id number] Search Engine Optimizer: Artemio Nair MD, Phone: [phone] PERFORMED BY: [place] [address] PATHOLOGIST SHROUDMAN RADHA BULLARD M.D. Performed By: #### C UU, ADDONUAPLUS #### [address] #### C3, C4, CH50 #### [facility] , Th/To Antibodyon 06-19-2022 Th/To Antibody Negative Normal Negative [facility] Comment on above: Result Comment: This test was developed and its performance characteristics determined by [facility]. It has not been cleared or approved by the Food and Drug Administration. Performed at: [facility] [address] [place] [address] [id number] Search Engine Optimizer: Artemio Nair MD, Phone: [phone] Performed By: #### C UU, ADDONUAPLUS #### [facility] [address] [place] [address] #### C3, C4, CH50 #### [facility] , U3 Rnpon 06-19-2022 U3 Metal Furniture Assembly Supervisor Negative Normal Negative [facility] Comment on above: Result Comment: This test was developed and its performance characteristics determined by [facility]. It has not been cleared or approved by the Food and Drug Administration. Performed at: [facility] [address] [place] [address] [id number] Search Engine Optimizer: Artemio Nair MD, Phone: [phone] PERFORMED BY: [place] [address] PATHOLOGIST SHROUDMAN RADHA BULLARD M.D. Performed By: #### C UU, ADDONUAPLUS #### [address] #### C3, C4, CH50 #### [facility] , Urine Cultureon 06-19-2022 Bacteria identified Cx Nom (U) No Growth 2 Days PERFORMED BY: [place] [address] PATHOLOGIST SHROUDMAN RADHA BULLARD M.D. Normal [facility] Comment on above: Performed By: #### C UU, ADDONUAPLUS #### [address] #### C3, C4, CH50 #### [facility] , PROF CHEM 8 (BAS METB)on Anion gap [Moles/Vol] 12.5 mmol/L Normal [facility] Comment on above: Performed By: #### B MP #### [facility] [address] [address] [address] Reji Thomas Calcium [Mass/Vol] 8.9 mg/dL Normal 8.5-10.1 [facility] Comment on above: Performed By: #### B MP #### [facility] [address] [address] [address] Reji Thomas Chloride [Moles/Vol] 103 mmol/L Normal 98-107 [facility] Comment on above: Performed By: #### B MP #### [facility] [address] [address] [address] Reji Thomas CO2 [Moles/Vol] 26.1 mmol/L Normal 21.0-32.0 [facility] Comment on above: Performed By: #### B MP #### [facility] [address] [address] [address] Reji Thomas Creatinine [Mass/Vol] 2.09 mg/dL Critically high 0.55-1.02 [facility] Comment on above: Performed By: #### B MP #### [facility] [address] [address] [address] Reji Thomas EGFR-AF SOMALI 27 mL/min/1.73m2 Critically low >=60 [facility] Comment on above: Performed By: #### B MP #### [facility] [address] [address] [address] Reji Thomas EGFR-NON AF SOMALI 23 mL/min/1.73m2 Critically low >=60 [facility] Comment on above: Performed By: #### B MP #### [facility] [address] [address] [address] Reji Thomas Glucose [Mass/Vol] 96 mg/dL Normal 74-106 [facility] Comment on above: Performed By: #### B MP #### [facility] [address] [address] [address] Reji Thomas Potassium [Moles/Vol] 4.6 mmol/L Normal 3.5-5.1 [facility] Comment on above: Performed By: #### B MP #### [facility] [address] [address] [address] Reji Thomas Sodium [Moles/Vol] 137 mmol/L Normal 136-145 [facility] Comment on above: Performed By: #### B MP #### [facility] [address] [address] [address] Reji Thomas Urea nitrogen [Mass/Vol] 38.0 mg/dL Critically high 7.0-18.0 [facility] Comment on above: Performed By: #### B MP #### [facility] [address] [address] [address] Reji Thomas Urea nitrogen/Creatinine [Mass ratio] 18.2 mg/mg Normal [facility] Comment on above: Performed By: #### B MP #### [facility] [address] [address] [address] Reji Thomas PROTIMEon 06-04-2022 INR Coag (PPP) [Relative time] 2.51 {INR} Normal [facility] Comment on above: Performed By: #### B RN INFUSION, CMP, TSH, LIPID #### [facility] [address] [place] [address] Dr. Reji Thomas INR GUIDELINES SEE BELOW Normal [facility] Comment on above: Result Comment: SHY RED INR: 2.0 - 3.0 CONDITIONS NOT LISTED BELOW 2.5 - 3.5 FOR PROSTHETIC HEART VALVE REPLACEMENT 2.5 - 3.5 RECURRENT THROMBOSIS Performed By: #### B RN INFUSION, CMP, TSH, LIPID #### [facility] [address] [place] [address] Dr. Reji Thomas PT Coag (PPP) [Time] 25.5 s Critically high 9.0-11.6 [facility] Comment on above: Performed By: #### B RN INFUSION, CMP, TSH, LIPID #### [facility] [address] [place] [address] Dr. Reji Thomas BNPon 05-15-2022 Natriuretic peptide B (Bld) [Mass/Vol] 3661.0 pg/mL Critically high <=1,800.0 [facility] Comment on above: Performed By: #### B RN INFUSION, CMP, TSH, LIPID #### [facility] [address] [place] [address] Dr. Reji Thomas CBC AUTO DIFFon 05-15-2022 BASO # 0.1 103/ul Normal 0.0-0.1 [facility] Comment on above: Performed By: #### B MP #### [facility] [address] [place] [address] Dr. Reji Thomas Basophils/100 WBC (Bld) 1.1 % Normal 0.2-2.0 [facility] Comment on above: Performed By: #### B MP #### [facility] [address] [place] [address] Dr. Reji Thomas EO # 0.5 103/ul Normal 0.0-0.7 [facility] Comment on above: Performed By: #### B MP #### [facility] [address] [place] [address] Dr. Reji Thomas Eosinophils/100 WBC (Bld) 6.5 % Normal 0.9-7.0 [facility] Comment on above: Performed By: #### B MP #### [facility] [address] [place] [address] Dr. Reji Thomas Erythrocyte distribution width (RBC) [Ratio] 16.1 % Critically high 11.0-15.0 [facility] Comment on above: Performed By: #### B MP #### [facility] [address] [place] [address] Dr. Reji Thomas Hematocrit (Bld) [Volume fraction] 35.0 % Critically low 36.0-48.0 [facility] Comment on above: Performed By: #### B MP #### [facility] [address] [place] [address] Dr. Reji Thomas Hemoglobin (Bld) [Mass/Vol] 11.1 g/dL Critically low 12.0-16.0 [facility] Comment on above: Performed By: #### B MP #### [facility] [address] [place] [address] Dr. Reji Thomas IG # 0.02 10e3/ul Normal 0.00-0.03 [facility] Comment on above: Performed By: #### B MP #### [facility] [address] [place] [address] Dr. Reji Thomas IG % 0.3 % Normal 0.0-0.5 [facility] Comment on above: Performed By: #### B MP #### [facility] [address] [place] [address] Dr. Reji Thomas LYMPH # 1.6 103/ul Normal 1.2-3.8 [facility] Comment on above: Performed By: #### B MP #### [facility] [address] [place] [address] Dr. Reji Thomas Lymphocytes/100 WBC (Bld) 22.4 % Normal 20.5-60.0 [facility] Comment on above: Performed By: #### B MP #### [facility] [address] [place] [address] Dr. Reji Thomas MANUAL DIFF REQ NO Normal [facility] Comment on above: Performed By: #### B MP #### [facility] [address] [address] [address] Reji Thomas MCH (RBC) [Entitic mass] 26.4 pg Critically low 26.7-34.0 [facility] Comment on above: Performed By: #### B MP #### [facility] [address] [place] [address] Dr. Reji Thomas MCHC (RBC) [Mass/Vol] 31.7 g/dL Normal 29.9-35.2 [facility] Comment on above: Performed By: #### B MP #### [facility] [address] [place] [address] Dr. Reji Thomas MCV (RBC) [Entitic vol] 83.1 fL Normal 81.0-99.0 [facility] Comment on above: Performed By: #### B MP #### [facility] [address] [place] [address] Dr. Reji Thomas MONO # 0.9 103/ul Critically high 0.3-0.8 [facility] Comment on above: Performed By: #### B MP #### [facility] [address] [place] [address] Dr. Reji Thomas Monocytes/100 WBC (Bld) 12.1 % Critically high 1.7-12.0 [facility] Comment on above: Performed By: #### B MP #### [facility] [address] [place] [address] Dr. Reji Thomas NEUT # 4.1 103/ul Normal 1.4-6.5 [facility] Comment on above: Performed By: #### B MP #### [facility] [address] [place] [address] Dr. Reji Thomas Neutrophils/100 WBC (Bld) 57.6 % Normal 43.0-75.0 [facility] Comment on above: Performed By: #### B MP #### [facility] [address] [place] [address] Dr. Reji Thomas Platelet mean volume (Bld) [Entitic vol] 8.8 fL Critically low 9.5-13.5 [facility] Comment on above: Performed By: #### B MP #### [facility] [address] [address] [address] Reji Thomas PLT 253 103/ul Normal 150-450 [facility] Comment on above: Performed By: #### B MP #### [facility] [address] [address] [address] Reji Thomas RBC 4.21 106/ul Normal 4.20-5.40 [facility] Comment on above: Performed By: #### B MP #### [facility] [address] [place] [address] Dr. Reji Thomas WBC 7.1 103/ul Normal 4.0-11.0 [facility] Comment on above: Performed By: #### B MP #### [facility] [address] [place] [address] Dr. Reji Thomas PROF CHEM 8 (BAS METB)on Anion gap [Moles/Vol] 10.5 mmol/L Normal [facility] Comment on above: Performed By: #### B RN INFUSION, CMP, TSH, LIPID #### [facility] [address] [place] [address] Dr. Reji Thomas Calcium [Mass/Vol] 8.9 mg/dL Normal 8.5-10.1 [facility] Comment on above: Performed By: #### B RN INFUSION, CMP, TSH, LIPID #### [facility] [address] [place] [address] Dr. Reji Thomas Chloride [Moles/Vol] 104 mmol/L Normal 98-107 [facility] Comment on above: Performed By: #### B RN INFUSION, CMP, TSH, LIPID #### [facility] [address] [place] [address] Dr. Reji Thomas CO2 [Moles/Vol] 29.5 mmol/L Normal 21.0-32.0 [facility] Comment on above: Performed By: #### B RN INFUSION, CMP, TSH, LIPID #### [facility] [address] [place] [address] Dr. Reji Thomas Creatinine [Mass/Vol] 1.73 mg/dL Critically high 0.55-1.02 [facility] Comment on above: Performed By: #### B RN INFUSION, CMP, TSH, LIPID #### [facility] [address] [place] [address] Dr. Reji Thomas EGFR-AF SOMALI 34 mL/min/1.73m2 Critically low >=60 [facility] Comment on above: Performed By: #### B RN INFUSION, CMP, TSH, LIPID #### [facility] [address] [place] [address] Dr. Reji Thomas EGFR-NON AF SOMALI 28 mL/min/1.73m2 Critically low >=60 [facility] Comment on above: Performed By: #### B RN INFUSION, CMP, TSH, LIPID #### [facility] [address] [place] [address] Dr. Reji Thomas Glucose [Mass/Vol] 79 mg/dL Normal 74-106 [facility] Comment on above: Performed By: #### B RN INFUSION, CMP, TSH, LIPID #### [facility] [address] [place] [address] Dr. Reji Thomas Potassium [Moles/Vol] 4.0 mmol/L Normal 3.5-5.1 [facility] Comment on above: Performed By: #### B RN INFUSION, CMP, TSH, LIPID #### [facility] [address] [place] [address] Dr. Reji Thomas Sodium [Moles/Vol] 140 mmol/L Normal 136-145 [facility] Comment on above: Performed By: #### B RN INFUSION, CMP, TSH, LIPID #### [facility] [address] [place] [address] Dr. Reji Thomas Urea nitrogen [Mass/Vol] 22.0 mg/dL Critically high 7.0-18.0 [facility] Comment on above: Performed By: #### B RN INFUSION, CMP, TSH, LIPID #### [facility] [address] [place] [address] Dr. Reji Thomas Urea nitrogen/Creatinine [Mass ratio] 12.7 mg/mg Normal [facility] Comment on above: Performed By: #### B RN INFUSION, CMP, TSH, LIPID #### [facility] [address] [address] [address] Reji Thomas PROTIMEon 05-15-2022 INR Coag (PPP) [Relative time] 2.53 {INR} Normal [facility] Comment on above: Performed By: #### B RN INFUSION, CMP, TSH, LIPID #### [facility] [address] [address] [address] Reji Thomas INR GUIDELINES SEE BELOW Normal [facility] Comment on above: Result Comment: SHY RED INR: 2.0 - 3.0 CONDITIONS NOT LISTED BELOW 2.5 - 3.5 FOR PROSTHETIC HEART VALVE REPLACEMENT 2.5 - 3.5 RECURRENT THROMBOSIS Performed By: #### B RN INFUSION, CMP, TSH, LIPID #### [facility] [address] [address] [address] Reji Thomas PT Coag (PPP) [Time] 25.7 s Critically high 9.0-11.6 [facility] Comment on above: Performed By: #### B RN INFUSION, CMP, TSH, LIPID #### [facility] [address] [address] [address] Reji Thomas ECHOCARDIO M/2D COMPLETEon 0 05-04-2022 ECHOCARDIO M/2D COMPLETE Patient: INEZ JUAREZ Exam Date: 05/04/2022 : 1940 Gender:F Ordering : DR JENN PRADO M.D. Admission #: [id number] Family : Order #: [id number] CLICK HERE TO VIEW EXAM ECHOCARDIOGRAM REPORT [...] Area(A4C): 27.20 cm2 Left Atrium Systolic Volume(A2C): 699623 mm3 Left Atrium Systolic Volume(A4C): 39155 mm3 Mitral Valve MV E to A Ratio: 2.60 Deceleration [place]: 80802 mm/s2 Mitral Valve A-Wave Peak Velocity: 58.60 [...] Prado M.D. on 05/07/2022 at 11:39 Normal [facility] EVAN by IFAon 04-19-2022 Antinuclear Antibodies, IFA Positive Abnormal [facility] Comment on above: Result Comment: Nega tive <1:80 Borderline 1:80 Positive >1:80 Performed By: #### B RN INFUSION, CMP, TSH, LIPID #### [facility] [address] [address] [address] Reji Thomas Centriole Pattern Normal [facility] Comment on above: Performed By: #### B RN INFUSION, CMP, TSH, LIPID #### [facility] [address] [address] [address] Reji Thomas Centromere Pattern Normal [facility] Comment on above: Performed By: #### B RN INFUSION, CMP, TSH, LIPID #### [facility] [address] [address] [address] Reji Thomas Homogeneous Pattern 1:320 Critically high [facility] Comment on above: Result Comment: ICAP nomenclature: AC-1 Performed By: #### B RN INFUSION, CMP, TSH, LIPID #### [facility] [address] [address] [address] Reji Thomas Midbody Pattern Normal [facility] Comment on above: Performed By: #### B RN INFUSION, CMP, TSH, LIPID #### [facility] [address] [address] [address] Reji Thomas Note: Comment Normal [facility] Comment on above: Result Comment: For [...] titers Nucleosomes, Histones Drug-induced SLE Speckled Sm, SOLE MOLDING MACHINE OPERATOR, SCL-70, SLE,MCTD,PSS (diffuse form), SS-A/SS-B Sjogrens Nucleolar SCL-70, PM-1/SCL High titers Scleroderma, PM/DM Centromere Centromere PSS (limited form) w/Crest syndrome variable Nuclear Dot [id number] Primary Biliary Cirrhosis Nuclear GP210, Primary Biliary Cirrhosis Membrane eleonora A,B,C Performed By: #### B RN INFUSION, CMP, TSH, LIPID #### [facility] [address] [address] [address] Reji Thomas Nuclear Dot Pattern Normal [facility] Comment on above: Performed By: #### B RN INFUSION, CMP, TSH, LIPID #### [facility] [address] [address] [address] Reji Thomas Nuclear Membrane Pattern Normal [facility] Comment on above: Performed By: #### B RN INFUSION, CMP, TSH, LIPID #### [facility] [address] [address] [address] Reji Thomas Nucleolar Pattern Normal [facility] Comment on above: Performed By: #### B RN INFUSION, CMP, TSH, LIPID #### [facility] [address] [address] [address] Reji Thomas PCNA Pattern Normal [facility] Comment on above: Performed By: #### B RN INFUSION, CMP, TSH, LIPID #### [facility] [address] [address] [address] Reji Thomas Speckled Pattern Normal [facility] Comment on above: Performed By: #### B RN INFUSION, CMP, TSH, LIPID #### [facility] [address] [address] [address] Reji Thomas Spindle Apparatus Pattern Normal [facility] Comment on above: Performed By: #### B RN INFUSION, CMP, TSH, LIPID #### [facility] [address] [address] [address] Reji Thomas ANCA (ANTINEUTROPHIL CYTOPLA MSMIC ABon 04-18-2022 Atypical pANCA <1:20 Normal Neg:<1:20 [facility] Comment on above: Result Comment: Seru m is slightly hemolyzed The atypical pANCA pattern has been observed in a significant percentage of patients with ulcerative colitis, primary sclerosing cholangitis and autoimmune hepatitis. Performed By: #### B MP #### [facility] [address] [address] [address] Reji Thomas Cytoplasmic (C-ANCA) <1:20 Normal Neg:<1:20 [facility] Comment on above: Result Comment: Seru m is slightly hemolyzed Performed By: #### B MP #### [facility] [address] [address] [address] Reji Thomas Perinuclear (P-ANCA) <1:20 Normal Neg:<1:20 [facility] Comment on above: Result Comment: [...] 1999;111:507-513. Performed By: #### B MP #### [facility] [address] [place] [address] Dr. Reji Thomas ANTISCLERODERMA ABon 022 Antiscleroderma-70 Antibodies 0.3 AI Normal 0.0-0.9 [facility] Comment on above: Performed By: #### B RN INFUSION, CMP, TSH, LIPID #### [facility] [address] [place] [address] Dr. Reji Thomas T3 UPTAKEon 04-18-2022 Free Thyroxine Index 1.8 Normal 1.2-4.9 [facility] Comment on above: Performed By: #### B RN INFUSION, CMP, TSH, LIPID #### [facility] [address] [place] [address] Dr. Reji Thomas T3 Uptake 23 % Critically low 24-39 [facility] Comment on above: Performed By: #### B RN INFUSION, CMP, TSH, LIPID #### [facility] [address] [address] [address] Reji Thomas T4 LABCORPon 04-18-2022 T4 [Mass/Vol] 7.8 ug/dL Normal 4.5-12.0 [facility] Comment on above: Performed By: #### B RN INFUSION, CMP, TSH, LIPID #### [facility] [address] [place] [address] Dr. Reji Thomas BNPon 04-16-2022 Natriuretic peptide B (Bld) [Mass/Vol] 2870.0 pg/mL Critically high <=1,800.0 [facility] Comment on above: Result Comment: repe ated Performed By: #### B RN INFUSION, CMP, TSH, LIPID #### [facility] [address] [place] [address] Dr. Reji Thomas CBC AUTO DIFFon 04-16-2022 BASO # 0.1 103/ul Normal 0.0-0.1 [facility] Comment on above: Performed By: #### B RN INFUSION, CMP, TSH, LIPID #### [facility] [address] [place] [address] Dr. Reji Thomas Basophils/100 WBC (Bld) 0.9 % Normal 0.2-2.0 [facility] Comment on above: Performed By: #### B RN INFUSION, CMP, TSH, LIPID #### [facility] [address] [place] [address] Dr. Reji Thomas EO # 0.3 103/ul Normal 0.0-0.7 [facility] Comment on above: Performed By: #### B RN INFUSION, CMP, TSH, LIPID #### [facility] [address] [place] [address] Dr. Reji Thomas Eosinophils/100 WBC (Bld) 3.9 % Normal 0.9-7.0 [facility] Comment on above: Performed By: #### B RN INFUSION, CMP, TSH, LIPID #### [facility] [address] [place] [address] Dr. Reji Thomas Erythrocyte distribution width (RBC) [Ratio] 15.9 % Critically high 11.0-15.0 [facility] Comment on above: Performed By: #### B RN INFUSION, CMP, TSH, LIPID #### [facility] [facility] [address] [address] [address] Reji Thomas Hematocrit (Bld) [Volume fraction] 38.1 % Normal 36.0-48.0 [facility] Comment on above: Performed By: #### B RN INFUSION, CMP, TSH, LIPID #### [facility] [address] [address] [address] Reji Thomas Hemoglobin (Bld) [Mass/Vol] 12.1 g/dL Normal 12.0-16.0 [facility] Comment on above: Performed By: #### B RN INFUSION, CMP, TSH, LIPID #### [facility] [address] [place] [address] Dr. Reji Thomas IG # 0.02 10e3/ul Normal 0.00-0.03 [facility] Comment on above: Performed By: #### B RN INFUSION, CMP, TSH, LIPID #### [facility] [address] [place] [address] Dr. Reji Thomas IG % 0.3 % Normal 0.0-0.5 [facility] Comment on above: Performed By: #### B RN INFUSION, CMP, TSH, LIPID #### [facility] [address] [address] [address] Reji Thomas LYMPH # 1.6 103/ul Normal 1.2-3.8 [facility] Comment on above: Performed By: #### B RN INFUSION, CMP, TSH, LIPID #### [facility] [address] [address] [address] Reji Thomas Lymphocytes/100 WBC (Bld) 22.6 % Normal 20.5-60.0 [facility] Comment on above: Performed By: #### B RN INFUSION, CMP, TSH, LIPID #### [facility] [address] [address] [address] Reji Thomas MANUAL DIFF REQ NO Normal [facility] Comment on above: Performed By: #### B RN INFUSION, CMP, TSH, LIPID #### [facility] [address] [place] [address] Dr. Reji Thomas MCH (RBC) [Entitic mass] 26.5 pg Critically low 26.7-34.0 [facility] Comment on above: Performed By: #### B RN INFUSION, CMP, TSH, LIPID #### [facility] [address] [place] [address] Dr. Reji Thomas MCHC (RBC) [Mass/Vol] 31.8 g/dL Normal 29.9-35.2 [facility] Comment on above: Performed By: #### B RN INFUSION, CMP, TSH, LIPID #### [facility] [address] [place] [address] Dr. Reji Thomas MCV (RBC) [Entitic vol] 83.4 fL Normal 81.0-99.0 [facility] Comment on above: Performed By: #### B RN INFUSION, CMP, TSH, LIPID #### [facility] [address] [place] [address] Dr. Reji Thomas MONO # 0.6 103/ul Normal 0.3-0.8 [facility] Comment on above: Performed By: #### B RN INFUSION, CMP, TSH, LIPID #### [facility] [address] [place] [address] Dr. Reji Thomas Monocytes/100 WBC (Bld) 9.3 % Normal 1.7-12.0 [facility] Comment on above: Performed By: #### B RN INFUSION, CMP, TSH, LIPID #### [facility] [address] [place] [address] Dr. Reji Thomas NEUT # 4.3 103/ul Normal 1.4-6.5 [facility] Comment on above: Performed By: #### B RN INFUSION, CMP, TSH, LIPID #### [facility] [address] [place] [address] Dr. Reji Thomas Neutrophils/100 WBC (Bld) 63.0 % Normal 43.0-75.0 [facility] Comment on above: Performed By: #### B RN INFUSION, CMP, TSH, LIPID #### [facility] [address] [place] [address] Dr. Reji Thomas Platelet mean volume (Bld) [Entitic vol] 9.2 fL Critically low 9.5-13.5 [facility] Comment on above: Performed By: #### B RN INFUSION, CMP, TSH, LIPID #### [facility] [address] [address] [address] Reji Thomas PLT 211 103/ul Normal 150-450 [facility] Comment on above: Performed By: #### B RN INFUSION, CMP, TSH, LIPID #### [facility] [address] [address] [address] Reji Thomas RBC 4.57 106/ul Normal 4.20-5.40 [facility] Comment on above: Performed By: #### B RN INFUSION, CMP, TSH, LIPID #### [facility] [address] [place] [address] Dr. Reji Thomas WBC 6.9 103/ul Normal 4.0-11.0 [facility] Comment on above: Performed By: #### B RN INFUSION, CMP, TSH, LIPID #### [facility] [address] [place] [address] Dr. Reji Thomas GLYCOHEMOGLOBIN A1Con 2021 ADA RECOMMENDATION SEE BELOW Normal [facility] Comment on above: Result Comment: ADA RECOMMENDED LIMIT 4.0 - 6.0 ADA THERAPEUTIC TARGET < 7.0 ACTION SUGGESTED > 7.0 Performed By: #### B RN INFUSION, CMP, TSH, LIPID #### [facility] [address] [place] [address] Dr. Reji Thomas Glucose [Mass/Vol] 100 mg/dL Normal [facility] Comment on above: Performed By: #### B RN INFUSION, CMP, TSH, LIPID #### [facility] [address] [place] [address] Dr. Reji Thomas HbA1c (Bld) [Mass fraction] 5.1 % Normal 4.5-6.2 [facility] Comment on above: Performed By: #### B RN INFUSION, CMP, TSH, LIPID #### [facility] [address] [place] [address] Dr. Reji Thomas IRONon 04-16-2022 Iron [Mass/Vol] 42.0 ug/dL Critically low 50.0-170.0 [facility] Comment on above: Performed By: #### B RN INFUSION, CMP, TSH, LIPID #### [facility] [address] [address] [address] Reji Thomas LIPID PROFILEon 04-16-2022 CHOL-HDL RATIO NORM SEE BELOW Normal [facility] Comment on above: Result Comment: 3.3 - 4.4 LOW RISK 4.4 - 7.1 AVERAGE RISK 7.1 - 11.0 MODERATE RISK >11.0 HIGH RISK Performed By: #### B RN INFUSION, CMP, TSH, LIPID #### [facility] [address] [address] [address] Reji Thomas Cholesterol [Mass/Vol] 176 mg/dL Normal <=200 [facility] Comment on above: Performed By: #### B RN INFUSION, CMP, TSH, LIPID #### [facility] [address] [address] [address] Reji Thomas Cholesterol in HDL [Mass/Vol] 52 mg/dL Normal 40-60 [facility] Comment on above: Performed By: #### B RN INFUSION, CMP, TSH, LIPID #### [facility] [address] [address] [address] Reji Thomas Cholesterol in LDL [Mass/Vol] 102.8 mg/dL Normal [facility] Comment on above: Performed By: #### B RN INFUSION, CMP, TSH, LIPID #### [facility] [address] [address] [address] Reji Thomas Cholesterol.total/Ch olesterol in HDL [Mass ratio] 3.4 {ratio} Normal [facility] Comment on above: Performed By: #### B RN INFUSION, CMP, TSH, LIPID #### [facility] [address] [place] [address] Dr. Reji Thomas HDL NORMAL > or = 60 mg/dl - LOW CARDIOVASCULAR RISK <40 mg/dl - HIGH CARDIOVASCULAR RISK Normal [facility] Comment on above: Performed By: #### B RN INFUSION, CMP, TSH, LIPID #### [facility] [address] [place] [address] Dr. Reji Thomas LDL CALC NORMAL SEE BELOW Normal [facility] Comment on above: Result Comment: <100 mg/dl OPTIMAL 100 - 129 mg/dl NEAR OR ABOVE OPTIMAL 130 - 159 mg/dl BORDERLINE HIGH 160 - 189 mg/dl HIGH >190 mg/dl VERY HIGH Performed By: #### B RN INFUSION, CMP, TSH, LIPID #### [facility] [address] [place] [address] Dr. Reji Thomas Triglyceride [Mass/Vol] 106 mg/dL Normal <=150 [facility] Comment on above: Performed By: #### B RN INFUSION, CMP, TSH, LIPID #### [facility] [address] [place] [address] Dr. Reji Thomas VLDL CALC 21.2 mg/dL Normal [facility] Comment on above: Performed By: #### B RN INFUSION, CMP, TSH, LIPID #### [facility] [address] [place] [address] Dr. Reji Thomas PROF 14(COMP METB)on 022 Albumin [Mass/Vol] 3.6 g/dL Normal 3.4-5.0 [facility] Comment on above: Performed By: #### B RN INFUSION, CMP, TSH, LIPID #### [facility] [address] [place] [address] Dr. Reji Thomas Albumin/Globulin [Mass ratio] 0.9 {ratio} Normal [facility] Comment on above: Performed By: #### B RN INFUSION, CMP, TSH, LIPID #### [facility] [address] [place] [address] Dr. Reji Thomas ALP [Catalytic activity/Vol] 62 U/L Normal 46-116 [facility] Comment on above: Performed By: #### B RN INFUSION, CMP, TSH, LIPID #### [facility] [address] [place] [address] Dr. Reji Thomas ALT [Catalytic activity/Vol] 14 U/L Normal 14-59 [facility] Comment on above: Performed By: #### B RN INFUSION, CMP, TSH, LIPID #### [facility] [address] [place] [address] Dr. Reji Thomas Anion gap [Moles/Vol] 14.5 mmol/L Normal [facility] Comment on above: Performed By: #### B RN INFUSION, CMP, TSH, LIPID #### [facility] [address] [address] [address] Reji Thomas AST [Catalytic activity/Vol] 17 U/L Normal 15-37 [facility] Comment on above: Performed By: #### B RN INFUSION, CMP, TSH, LIPID #### [facility] [address] [address] [address] Reji Thomas Bilirubin [Mass/Vol] 0.6 mg/dL Normal 0.2-1.0 [facility] Comment on above: Performed By: #### B RN INFUSION, CMP, TSH, LIPID #### [facility] [address] [address] [address] Reji Thomas Calcium [Mass/Vol] 8.8 mg/dL Normal 8.5-10.1 [facility] Comment on above: Performed By: #### B RN INFUSION, CMP, TSH, LIPID #### [facility] [address] [address] [address] Reji Thomas Chloride [Moles/Vol] 102 mmol/L Normal 98-107 [facility] Comment on above: Performed By: #### B RN INFUSION, CMP, TSH, LIPID #### [facility] [address] [address] [address] Reji Thomas CO2 [Moles/Vol] 26.3 mmol/L Normal 21.0-32.0 [facility] Comment on above: Performed By: #### B RN INFUSION, CMP, TSH, LIPID #### [facility] [address] [address] [address] Reji Thomas Creatinine [Mass/Vol] 1.76 mg/dL Critically high 0.55-1.02 [facility] Comment on above: Performed By: #### B RN INFUSION, CMP, TSH, LIPID #### [facility] [address] [address] [address] Reji Thomas EGFR-AF SOMALI 33 mL/min/1.73m2 Critically low >=60 [facility] Comment on above: Performed By: #### B RN INFUSION, CMP, TSH, LIPID #### [facility] [address] [address] [address] Reji Thomas EGFR-NON AF SOMALI 28 mL/min/1.73m2 Critically low >=60 [facility] Comment on above: Performed By: #### B RN INFUSION, CMP, TSH, LIPID #### [facility] [address] [address] [address] Reji Thomas Globulin (S) [Mass/Vol] 4.2 g/dL Normal [facility] Comment on above: Performed By: #### B RN INFUSION, CMP, TSH, LIPID #### [facility] [address] [address] [address] Reji Thomas Glucose [Mass/Vol] 81 mg/dL Normal 74-106 [facility] Comment on above: Performed By: #### B RN INFUSION, CMP, TSH, LIPID #### [facility] [address] [place] [address] Dr. Reji Thomas Potassium [Moles/Vol] 3.8 mmol/L Normal 3.5-5.1 [facility] Comment on above: Performed By: #### B RN INFUSION, CMP, TSH, LIPID #### [facility] [address] [place] [address] Dr. Reji Thomas Protein [Mass/Vol] 7.8 g/dL Normal 6.4-8.2 [facility] Comment on above: Performed By: #### B RN INFUSION, CMP, TSH, LIPID #### [facility] [address] [place] [address] Dr. Reji Thomas Sodium [Moles/Vol] 139 mmol/L Normal 136-145 [facility] Comment on above: Performed By: #### B RN INFUSION, CMP, TSH, LIPID #### [facility] [address] [place] [address] Dr. Reji Thomas Urea nitrogen [Mass/Vol] 27.0 mg/dL Critically high 7.0-18.0 [facility] Comment on above: Performed By: #### B RN INFUSION, CMP, TSH, LIPID #### [facility] [address] [place] [address] Dr. Reji Thomas Urea nitrogen/Creatinine [Mass ratio] 15.3 mg/mg Normal [facility] Comment on above: Performed By: #### B RN INFUSION, CMP, TSH, LIPID #### [facility] [address] [place] [address] Dr. Reji Thomas PROTIMEon 04-16-2022 INR Coag (PPP) [Relative time] 1.92 {INR} Normal [facility] Comment on above: Performed By: #### B RN INFUSION, CMP, TSH, LIPID #### [facility] [address] [place] [address] Dr. Reji Thomas INR GUIDELINES SEE BELOW Normal [facility] Comment on above: Result Comment: SHY RED INR: 2.0 - 3.0 CONDITIONS NOT LISTED BELOW 2.5 - 3.5 FOR PROSTHETIC HEART VALVE REPLACEMENT 2.5 - 3.5 RECURRENT THROMBOSIS Performed By: #### B RN INFUSION, CMP, TSH, LIPID #### [facility] [address] [place] [address] Dr. Reji Thomas PT Coag (PPP) [Time] 19.9 s Critically high 9.0-11.6 [facility] Comment on above: Performed By: #### B RN INFUSION, CMP, TSH, LIPID #### [facility] [address] [place] [address] Dr. Reji [facility] mm/hr Critically high <=30 [facility] Comment on above: Performed By: #### B RN INFUSION, CMP, TSH, LIPID #### [facility] [address] [place] [address] Dr. Reji Thomas TSHon 04-16-2022 TSH 1.941 uIU/mL Normal 0.358-3.740 [facility] Comment on above: Performed By: #### B RN INFUSION, CMP, TSH, LIPID #### [facility] [address] [place] [address] Dr. Reji Thomas TSH RANGE SEE BELOW Normal [facility] Comment on above: Result Comment: <0.3 4 UIU/ml HYPERTHYROID 0.34-5.60 UIU/ml EUTHYROID >5.60 UIU/ml HYPOTHYROID Performed By: #### B RN INFUSION, CMP, TSH, LIPID #### [facility] [address] [place] [address] Dr. Reji Thomas VITAMIN D 25 OHon 04-16-2022 VIT D 25-OH 56.6 ng/mL Normal [facility] Comment on above: Performed By: #### B RN INFUSION, CMP, TSH, LIPID #### [facility] [address] [place], [place] [address] Dr. Reji Thomas VIT D RANGES SEE BELOW Normal [facility] Comment on above: Result Comment: <20 ng/mL Vit D deficient 20 - <30 ng/mL Vit D insufficient 30 - 100 ng/mL Vit D sufficient >100 ng/mL Potential Toxicity Performed By: #### B RN INFUSION, CMP, TSH, LIPID #### [facility] [address] [address] [address] Reji Thomas Cardiovascular Lab Reporton 11-02-2021 Cardiovascular Lab Report [facility] Patient Name: Inez Juarez MR #: [id number] [facility] Physician: Jenn Prado M.D. Department of Service Date: 11/01/2021 Medicine Birthdate: 1940 Division of Room #: Cardiology Adult Cardiovascular Services [address] [address] Cardiovascular Laboratory Report INDICATION: The patient is [...] She signed consent. 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 The right neck area was prepped and draped in usual fashion. Micropuncture technique and ultrasound guidance were used for access in the right internal jugular vein. A 6-Indonesian x 11 cm sheath was placed. A 6-Indonesian Hernández catheter was used for heart catheterization [...] Prado M.D. Date Trans: 11/01/2021 11:22 P/alondra [id number] cc: Bruce Rizvi M.D. [address] [address] Normal The [facility] Cardiovascular Lab Reporton 06-02-2021 Cardiovascular Lab Report [facility] Patient Name: Inez Juarez MR #: [id number] [facility] Physician: Jenn Prado M.D. Department of Service Date: 06/02/2021 Medicine Birthdate: 1940 Division of Room #: CC Cardiology Adult Cardiovascular Services [address] [address] Cardiovascular Laboratory Report INDICATION: The patient is [...] the informed consent. 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 The right neck area was prepped and draped in usual fashion. Using micropuncture technique and ultrasound guidance, the right internal jugular vein was accessed and a 6-Indonesian x 11 cm sheath was placed. A 6-Indonesian Hernández catheter was used for heart catheterization [...] Prado M.D. Date Trans: 06/02/2021 02:42 P/mmo [id number] cc: Bruce Rizvi M.D. [address], [place] [address] [facility] Encounters Encounter Date Encounter Type Care Provider Facility Start: 06-28-2025 End: 06-28-2025 ambulatory [facility] Start: 07-03-2024 End: 07-03-2024 ambulatory [facility] Start: 03-22-2023 End: 03-23-[address] BRUCE [...] Start: 11-01-2021 End: 11-02-2021 ambulatory PROVIDER UNKNOWN Facility:[facility] Start: 06-02-2021 End: 06-03-2021 ambulatory PROVIDER UNKNOWN Facility:[facility] Payers Date Payer Category Payer Medicare [id number] 1961 Medicare [id number] 1961 Medicare [id number] 1961 Self-pay [id number] 1940 Unknown [id number] 2.16.8 [id number] 1938 Unknown [id number] 2.16.8 40.1.582504.3.579.2.647 1938 Unknown [id number] 2.16.84 0.1.861643.3.579.2.593 1938 Unknown [id number] 2.16.84 0.1.067194.3.579.2.593 1938 Unknown [id number] 2.16.84 0.1.687200.3.579.2.593 1938 Unknown [id number] 2.16.84 0.1.540321.3.579.2.593 1938 Unknown [id number] 2.16.84 0.1.946566.3.579.2.593 1938 Unknown [id number] 2.16.84 0.1.589005.3.579.2.593 1938 Unknown [id number] 2.16.84 0.1.782140.3.579.2.59 1938 Unknown [id number] 2.16.84 0.1.887371.3.579.2.593 1938 Unknown [id number] 2.16.84 0.1.030878.3.579.2.593 1938 Unknown [id number] 2.16.84 0.1.060001.3.579.2.593 1938 Unknown [id number] 2.16.84 0.1.082527.3.579.2.593 1938 Unknown [id number] 2.16.84 0.1.009622.3.579.2.593 1938 Unknown [id number] 2.16.84 0.1.738205.3.579.2.593 1938 Unknown [id number] 2.16.84 0.1.039846.3.579.2.593 1938 Unknown [id number] 2.16.84 0.1.407381.3.579.2.593 1938 Unknown [id number] 2.16.84 0.1.467051.3.579.2.593 1938 Unknown [id number] 2.16.84 0.1.901305.3.579.2.593 1938 Unknown [id number] 2.16.84 0.1.688621.3.579.2.593 1938 Unknown [id number] 2.16.84 0.1.804032.3.579.2.593 Private Health Insurance GAB [id number] Progress note 06-28-2025 Note Date & Type Note Facility 06-28-2025 Note [place] [facility] - [facility] Petrona Juarez is a 85 y.o. [...] Musculoskeletal: Positive for (more content not included)... [facility] Progress note 07-03-2024 Note Date & Type Note Facility 07-03-2024 Note [place] [facility] - [facility] Subjective [...] Pulse 50 Ht (more content not included)... [facility] Summary Purpose Family History No Family History Records FoundNo Family History Records FoundNo Family History Records FoundNo Family History Records Found Advance Directives No Advanced Directives Records FoundNo Advanced Directives Records FoundNo Advanced Directives Records FoundNo Advanced Directives Records Found Additional Source Comments INFORMATION SOURCE (unrecogn ized section and content) DATE CREATED AUTHOR 11/03/[address] [facility] DATE CREATED AUTHOR AUTHOR'S ORGANIZ ATION 07/05/2022 [facility] DATE CREATED AUTHOR AUTHOR'S ORGANIZ ATION 03/23/2023 [facility] DATE CREATED AUTHOR AUTHOR'S ORGANIZ ATION 06/29/2025 [facility] FOR RECORDS PERTAINING TO PATIENTS WHO [...] BE BASED ON THE PRIMARY CLINICAL RECORDS. [facility] [employer] provides no warranty or guarantee of the accuracy or completeness of information in this document.
[2025-08-03 16:44] LABS: Hematocrit 36.1 % (36.0-48.0); Hemoglobin 11.2 g/dL (12.0-16.0); Immature Granulocytes Abs Auto 0.03 10^3/uL (0.00-0.03); Immature Granulocytes Pct Auto 0.4 % (0.0-0.5); Lymphocytes Absolute Auto 1.2 10^3/uL (1.2-3.8); Mean Corpuscular HGB Conc 31.0 g/dL (29.9-35.2); Mean Corpuscular Hemoglobin 26.6 pg (26.7-34.0); Mean Corpuscular Volume 85.7 fL (81.0-99.0); Platelet Count 237 10^3/uL (150-450); Red Blood Count 4.21 10^6/uL (4.20-5.40); White Blood Count 6.9 10^3/uL (4.0-11.0)
[2025-08-03 16:53] LABS: Alanine Aminotransferase 16 U/L (14-59); Albumin Globulin Ratio 0.8; Albumin Level 3.4 g/dL (3.4-5.0); Alkaline Phosphatase 68 U/L (46-116); Anion Gap 13.9; Aspartate Amino Transferase 14 U/L (15-37); Blood Urea Nitrogen 37.0 mg/dL (7.0-18.0); Calcium 8.5 mg/dL (8.5-10.1); Carbon Dioxide 27.4 mmol/L (21.0-32.0); Chloride 104 mmol/L (98-107); Estimated GFR (African America 24 (>=60 mL/min/1.73m^2); Estimated GFR (Non-African Ame 20 (>=60 mL/min/1.73m^2); Globulin 4.4 g/dL; Glucose 85 mg/dL (74-106); Potassium 4.3 mmol/L (3.5-5.1); Sodium 141 mmol/L (136-145); Total Protein 7.8 g/dL (6.4-8.2)
== END 2025-08-03 16:02 | disposition home or self-care (01) ==
PROVIDERS: PCP Family Medicine; Visit Provider Internal Medicine Interventional Cardiology
DX: I27.20 Pulmonary hypertension, unspecified (principal); I48.11 Longstanding persistent atrial fibrillation
CPT/HCPCS: 36415; 80048; 80076; 85025

== ENCOUNTER 2025-08-05 12:57 | Outpatient (OUT) | payer MEDICARE, SELFPAY ==
--- OUTSIDE RECORDS SUMMARY | 2025-08-05 13:05 | XMS_ITS | CCD ---
Author Organization [facility] Care Team Providers Care Branch Sales And Service Representative Name Role Phone UNKNOWN, PROVIDER Attending Unavailable HOY, BRUCE Primary Care Unavailable HOY, BRUCE Referring Unavailable UNKNOWN, PROVIDER Admitting Unavailable UNKNOWN, PROVIDER Attending Unavailable HOY, BRUCE Primary Care Unavailable HOY, BRUCE Referring Unavailable UNKNOWN, PROVIDER Admitting Unavailable HOY ., DR BARRERA Consulting Unavailable HOY ., DR BARRERA Primary Care Unavailable HOY ., DR BARRERA Attending Unavailable HOY ., DR BRARERA Admitting Unavailable MOUKARBEL, DR BARAJAS Consulting Unavailable [...] 04-16-2022 Episodic Other aftercare (4 sources) 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; Translations: [OTH GROUP HOME CURRENT DRUG THERAPY] Onset: 06-04-2022 Episodic Other [...] Range Facility Office Visiton 06-28-2025 Follow-up visit [id number] Inez Juarez 1940 Date Provider Department Center 06/28/2025 JENN AMANDA Family History Problem Relation Age of Onset Hypertension Mother Coronary artery disease Father Hypertension Father Family Status - Relation Status Age at Mother Father Level of Service:75742 [place] OFFICE/OUTPATIENT ESTABLISHED MOD MDM 30 MIN Normal [facility] Orders Onlyon 06-10-2025 Orders Only [id number] Inez Juarez 1940 Provider Department Center 06/10/2025 [id number] LAURENCE Acuña Family History Problem Relation Age of Onset Hypertension Mother Coronary artery disease Father Hypertension Father Family Status - Relation Status Age at Mother Father Normal [facility] Office Visiton 07-03-2024 Follow-up visit [id number] Inez Juarez 1940 [facility] Provider Department Center 07/03/2024 JENN AMANDA Family History Problem Relation Age of Onset Hypertension Mother Coronary artery disease Father Hypertension Father Family Status - Relation Status Age at Mother Father Level of Service:08175 [place] OFFICE/OUTPATIENT ESTABLISHED LOW MDM 20 MIN Normal [facility] BNPon 03-22-2023 Natriuretic peptide B (Bld) [Mass/Vol] 1423.0 pg/mL Normal <=1,800.0 [facility] Comment on above: Performed By: #### B EYEWEAR MANUFACTURING TECH, CMP, TSH, LIPID #### [facility] [address] [place] [address] Dr. Reji Thomas CBC AUTO DIFFon 03-22-2023 BASO # 0.1 103/ul Normal 0.0-0.1 [facility] Comment on above: Performed By: #### B MP #### [facility] [address] [place] [address] Dr. Reji Thomas Basophils/100 WBC (Bld) 1.0 % Normal 0.2-2.0 [facility] Comment on above: Performed By: #### B MP #### [facility] [address] [place] [address] Dr. Reji Thomas EO # 0.2 103/ul Normal 0.0-0.7 [facility] Comment on above: Performed By: #### B MP #### [facility] [address] [place] [address] Dr. Reji Thomas Eosinophils/100 WBC (Bld) 3.3 % Normal 0.9-7.0 [facility] Comment on above: Performed By: #### B MP #### [facility] [address] [place] [address] Dr. Reji Thomas Erythrocyte distribution width (RBC) [Ratio] 15.4 % Critically high 11.0-15.0 [facility] Comment on above: Performed By: #### B MP #### [facility] [address] [place] [address] Dr. Reji Thomas Hematocrit (Bld) [Volume fraction] 35.2 % Critically low 36.0-48.0 [facility] Comment on above: Performed By: #### B MP #### [facility] [address] [place] [address] Dr. Reji Thomas Hemoglobin (Bld) [Mass/Vol] 11.4 g/dL Critically low 12.0-16.0 [facility] Comment on above: Performed By: #### B MP #### [facility] [address] [address] [address] Reji Thomas IG # 0.02 10e3/ul Normal 0.00-0.03 [facility] Comment on above: Performed By: #### B MP #### [facility] [address] [place] [address] Dr. Reji Thomas IG % 0.3 % Normal 0.0-0.5 [facility] Comment on above: Performed By: #### B MP #### [facility] [address] [place] [address] Dr. Reji Thomas LYMPH # 1.4 103/ul Normal 1.2-3.8 [facility] Comment on above: Performed By: #### B MP #### [facility] [address] [place] [address] Dr. Reji Thomas Lymphocytes/100 WBC (Bld) 22.6 % Normal 20.5-60.0 [facility] Comment on above: Performed By: #### B MP #### [facility] [address] [place] [address] Dr. Reji Thomas MANUAL DIFF REQ NO Normal [facility] Comment on above: Performed By: #### B MP #### [facility] [address] [place] [address] Dr. Reji Thomas MCH (RBC) [Entitic mass] 27.0 pg Normal 26.7-34.0 [facility] Comment on above: Performed By: #### B MP #### [facility] [address] [place] [address] Dr. Reji Thomas MCHC (RBC) [Mass/Vol] 32.4 g/dL Normal 29.9-35.2 [facility] Comment on above: Performed By: #### B MP #### [facility] [address] [place] [address] Dr. Reji Thomas MCV (RBC) [Entitic vol] 83.2 fL Normal 81.0-99.0 [facility] Comment on above: Performed By: #### B MP #### [facility] [address] [address] [address] Reji Thomas MONO # 0.5 103/ul Normal 0.3-0.8 [facility] Comment on above: Performed By: #### B MP #### [facility] [address] [place] [address] Dr. Reji Thomas Monocytes/100 WBC (Bld) 8.5 % Normal 1.7-12.0 [facility] Comment on above: Performed By: #### B MP #### [facility] [address] [place] [address] Dr. Reji Thomas NEUT # 4.0 103/ul Normal 1.4-6.5 [facility] Comment on above: Performed By: #### B MP #### [facility] [address] [place] [address] Dr. Reji Thomas Neutrophils/100 WBC (Bld) 64.3 % Normal 43.0-75.0 [facility] Comment on above: Performed By: #### B MP #### [facility] [address] [place] [address] Dr. Reji Thomas Platelet mean volume (Bld) [Entitic vol] 8.9 fL Critically low 9.5-13.5 [facility] Comment on above: Performed By: #### B MP #### [facility] [address] [place] [address] Dr. Reji Thomas PLT 226 103/ul Normal 150-450 [facility] Comment on above: Performed By: #### B MP #### [facility] [address] [place] [address] Dr. Reji Thomas RBC 4.23 106/ul Normal 4.20-5.40 [facility] Comment on above: Performed By: #### B MP #### [facility] [address] [place] [address] Dr. Reji Thomas WBC 6.3 103/ul Normal 4.0-11.0 [facility] Comment on above: Performed By: #### B MP #### [facility] [address] [place] [address] Dr. Reji Thomas FREE THYROXINE INDEX T7on FTI 2.40 Normal 1.30-4.50 [facility] Comment on above: Performed By: #### B EYEWEAR MANUFACTURING TECH, CMP, TSH, LIPID #### [facility] [address] [address] [address] Reji Thomas T3U 32.0 % Normal 30.0-39.0 [facility] Comment on above: Performed By: #### B EYEWEAR MANUFACTURING TECH, CMP, TSH, LIPID #### [facility] [address] [address] [address] Reji Thomas T4 [Mass/Vol] 7.50 ug/dL Normal 4.80-13.90 [facility] Comment on above: Performed By: #### B EYEWEAR MANUFACTURING TECH, CMP, TSH, LIPID #### [facility] [address] [place] [address] Dr. Reij Thomas GLYCOHEMOGLOBIN A1Con 2022 ADA RECOMMENDATION SEE BELOW Normal [facility] Comment on above: Result Comment: ADA RECOMMENDED LIMIT 4.0 - 6.0 ADA THERAPEUTIC TARGET < 7.0 ACTION SUGGESTED > 7.0 Performed By: #### B EYEWEAR MANUFACTURING TECH, CMP, TSH, LIPID #### [facility] [address] [address] [address] Reji Thomas Glucose [Mass/Vol] 97 mg/dL Normal [facility] Comment on above: Performed By: #### B EYEWEAR MANUFACTURING TECH, CMP, TSH, LIPID #### [facility] [address] [address] [address] Reji Thomas HbA1c (Bld) [Mass fraction] 5.0 % Normal 4.5-6.2 [facility] Comment on above: Performed By: #### B EYEWEAR MANUFACTURING TECH, CMP, TSH, LIPID #### [facility] [address] [address] [address] Reji Thomas IRONon 03-22-2023 Iron [Mass/Vol] 47.0 ug/dL Critically low 50.0-170.0 [facility] Comment on above: Performed By: #### B EYEWEAR MANUFACTURING TECH, CMP, TSH, LIPID #### [facility] [address] [place] [address] Dr. Reji Thomas LIPID PROFILEon 03-22-2023 CHOL-HDL RATIO NORM SEE BELOW Normal [facility] Comment on above: Result Comment: 3.3 - 4.4 LOW RISK 4.4 - 7.1 AVERAGE RISK 7.1 - 11.0 MODERATE RISK >11.0 HIGH RISK Performed By: #### M G, TSH, LIPID, T7, CMP, BNP #### [facility] [address] [address] [address] Reji Thomas Cholesterol [Mass/Vol] 188 mg/dL Normal <=200 [facility] Comment on above: Performed By: #### M G, TSH, LIPID, T7, CMP, BNP #### [facility] [address] [address] [address] Reji Thomas Cholesterol in HDL [Mass/Vol] 53 mg/dL Normal 40-60 [facility] Comment on above: Performed By: #### M G, TSH, LIPID, T7, CMP, BNP #### [facility] [address] [address] [address] Reji Thomas Cholesterol in LDL [Mass/Vol] 111.6 mg/dL Normal [facility] Comment on above: Performed By: #### M G, TSH, LIPID, T7, CMP, BNP #### [facility] [address] [address] [address] Reji Thomas Cholesterol.total/Ch olesterol in HDL [Mass ratio] 3.5 {ratio} Normal [facility] Comment on above: Performed By: #### M G, TSH, LIPID, T7, CMP, BNP #### [facility] [address] [address] [address] Reji Thomas HDL NORMAL > or = 60 mg/dl - LOW CARDIOVASCULAR RISK <40 mg/dl - HIGH CARDIOVASCULAR RISK Normal [facility] Comment on above: Performed By: #### M G, TSH, LIPID, T7, CMP, BNP #### [facility] [address] [address] [address] Reji Thomas LDL CALC NORMAL SEE BELOW Normal [facility] Comment on above: Result Comment: <100 mg/dl OPTIMAL 100 - 129 mg/dl NEAR OR ABOVE OPTIMAL 130 - 159 mg/dl BORDERLINE HIGH 160 - 189 mg/dl HIGH >190 mg/dl VERY HIGH Performed By: #### M G, TSH, LIPID, T7, CMP, BNP #### [facility] [address] [address] [address] Reji Thomas Triglyceride [Mass/Vol] 117 mg/dL Normal <=150 [facility] Comment on above: Performed By: #### M G, TSH, LIPID, T7, CMP, BNP #### [facility] [address] [address] [address] Reji Thomas VLDL CALC 23.4 mg/dL Normal [facility] Comment on above: Performed By: #### M G, TSH, LIPID, T7, CMP, BNP #### [facility] [address] [place] [address] Dr. Reji Thomas MAGNESIUMon 03-22-2023 Magnesium [Mass/Vol] 2.4 mg/dL Normal 1.8-2.4 [facility] Comment on above: Performed By: #### B EYEWEAR MANUFACTURING TECH, CMP, TSH, LIPID #### [facility] [address] [place] [address] Dr. Reji Thomas PROF 14(COMP METB)on 023 Albumin [Mass/Vol] 3.4 g/dL Normal 3.4-5.0 [facility] Comment on above: Performed By: #### M G, TSH, LIPID, T7, CMP, BNP #### [facility] [address] [address] [address] Reji Thomas Albumin/Globulin [Mass ratio] 0.8 {ratio} Normal [facility] Comment on above: Performed By: #### M G, TSH, LIPID, T7, CMP, BNP #### [facility] [address] [address] [address] Reji Thomas ALP [Catalytic activity/Vol] 61 U/L Normal 46-116 [facility] Comment on above: Performed By: #### M G, TSH, LIPID, T7, CMP, BNP #### [facility] [address] [address] [address] Reji Thomas ALT [Catalytic activity/Vol] 15 U/L Normal 14-59 [facility] Comment on above: Performed By: #### M G, TSH, LIPID, T7, CMP, BNP #### [facility] [address] [place] [address] Dr. Reji Thomas Anion gap [Moles/Vol] 13.1 mmol/L Normal [facility] Comment on above: Performed By: #### M G, TSH, LIPID, T7, CMP, BNP #### [facility] [address] [address] [address] Reji Thomas AST [Catalytic activity/Vol] 13 U/L Critically low 15-37 [facility] Comment on above: Performed By: #### M G, TSH, LIPID, T7, CMP, BNP #### [facility] [address] [place] [address] Dr. Reji Thomas Bilirubin [Mass/Vol] 0.4 mg/dL Normal 0.2-1.0 [facility] Comment on above: Performed By: #### M G, TSH, LIPID, T7, CMP, BNP #### [facility] [address] [place] [address] Dr. Reji Thomas Calcium [Mass/Vol] 8.5 mg/dL Normal 8.5-10.1 [facility] Comment on above: Performed By: #### M G, TSH, LIPID, T7, CMP, BNP #### [facility] [address] [place] [address] Dr. Reji Thomas Chloride [Moles/Vol] 106 mmol/L Normal 98-107 [facility] Comment on above: Performed By: #### M G, TSH, LIPID, T7, CMP, BNP #### [facility] [address] [place] [address] Dr. Reji Thomas CO2 [Moles/Vol] 27.6 mmol/L Normal 21.0-32.0 [facility] Comment on above: Performed By: #### M G, TSH, LIPID, T7, CMP, BNP #### [facility] [address] [address] [address] Reji Thomas Creatinine [Mass/Vol] 2.32 mg/dL Critically high 0.55-1.02 [facility] Comment on above: Performed By: #### M G, TSH, LIPID, T7, CMP, BNP #### [facility] [address] [place] [address] Dr. Reji Thomas EGFR-AF PRYDEINIG 24 mL/min/1.73m2 Critically low >=60 [facility] Comment on above: Performed By: #### M G, TSH, LIPID, T7, CMP, BNP #### [facility] [address] [address] [address] Reji Thomas EGFR-NON AF PRYDEINIG 20 mL/min/1.73m2 Critically low >=60 [facility] Comment on above: Performed By: #### M G, TSH, LIPID, T7, CMP, BNP #### [facility] [address] [place] [address] Dr. Reji Thomas Globulin (S) [Mass/Vol] 4.3 g/dL Normal [facility] Comment on above: Performed By: #### M G, TSH, LIPID, T7, CMP, BNP #### [facility] [address] [place] [address] Dr. Reji Thomas Glucose [Mass/Vol] 88 mg/dL Normal 74-106 [facility] Comment on above: Performed By: #### M G, TSH, LIPID, T7, CMP, BNP #### [facility] [address] [place] [address] Dr. Reji Thomas Potassium [Moles/Vol] 4.7 mmol/L Normal 3.5-5.1 [facility] Comment on above: Performed By: #### M G, TSH, LIPID, T7, CMP, BNP #### [facility] [address] [place] [address] Dr. Reji Thomas Protein [Mass/Vol] 7.7 g/dL Normal 6.4-8.2 [facility] Comment on above: Performed By: #### M G, TSH, LIPID, T7, CMP, BNP #### [facility] [address] [place] [address] Dr. Reji Thomas Sodium [Moles/Vol] 142 mmol/L Normal 136-145 [facility] Comment on above: Performed By: #### M G, TSH, LIPID, T7, CMP, BNP #### [facility] [address] [place] [address] Dr. Reji Thomas Urea nitrogen [Mass/Vol] 38.0 mg/dL Critically high 7.0-18.0 [facility] Comment on above: Performed By: #### M G, TSH, LIPID, T7, CMP, BNP #### [facility] [address] [place] [address] Dr. Reji Thomas Urea nitrogen/Creatinine [Mass ratio] 16.4 mg/mg Normal [facility] Comment on above: Performed By: #### M G, TSH, LIPID, T7, CMP, BNP #### [facility] [address] [place] [address] Dr. Reji Thomas PROTIMEon 03-22-2023 INR Coag (PPP) [Relative time] 1.98 {INR} Normal [facility] Comment on above: Performed By: #### P T #### [facility] [address] [place] [address] Dr. Reji Thomas INR GUIDELINES SEE BELOW Normal [facility] Comment on above: Result Comment: SHY RED INR: 2.0 - 3.0 CONDITIONS NOT LISTED BELOW 2.5 - 3.5 FOR PROSTHETIC HEART VALVE REPLACEMENT 2.5 - 3.5 RECURRENT THROMBOSIS Performed By: #### P T #### [facility] [address] [place] [address] Dr. Reji Thomas PT Coag (PPP) [Time] 20.2 s Critically high 9.0-11.6 [facility] Comment on above: Performed By: #### P T #### [facility] [address] [place] [address] Dr. Reji Thomas TSHon 03-22-2023 TSH 2.265 uIU/mL Normal 0.358-3.740 [facility] Comment on above: Performed By: #### B EYEWEAR MANUFACTURING TECH, CMP, TSH, LIPID #### [facility] [address] [place] [address] Dr. Reji Thomas VITAMIN D 25 OHon 03-22-2023 VIT D 25-OH 53.1 ng/mL Normal [facility] Comment on above: Performed By: #### B MP #### [facility] [address] [place] [address] Dr. Reji Thomas VIT D RANGES SEE BELOW Normal [facility] Comment on above: Result Comment: <20 ng/mL Vit D deficient 20 - <30 ng/mL Vit D insufficient 30 - 100 ng/mL Vit D sufficient >100 ng/mL Potential Toxicity Performed By: #### B MP #### [facility] [address] [place] [address] Dr. Reji Thomas PROTIMEon 02-22-2023 INR Coag (PPP) [Relative time] 2.22 {INR} Normal [facility] Comment on above: Performed By: #### B EYEWEAR MANUFACTURING TECH, CMP, TSH, LIPID #### [facility] [address] [place] [address] Dr. Reji Thomas INR GUIDELINES SEE BELOW Normal [facility] Comment on above: Result Comment: SHY RED INR: 2.0 - 3.0 CONDITIONS NOT LISTED BELOW 2.5 - 3.5 FOR PROSTHETIC HEART VALVE REPLACEMENT 2.5 - 3.5 RECURRENT THROMBOSIS Performed By: #### B EYEWEAR MANUFACTURING TECH, CMP, TSH, LIPID #### [facility] [address] [place] [address] Dr. Reji Thomas PT Coag (PPP) [Time] 22.5 s Critically high 9.0-11.6 [facility] Comment on above: Performed By: #### B EYEWEAR MANUFACTURING TECH, CMP, TSH, LIPID #### [facility] [address] [place] [address] Dr. Reji Thomas PROTIMEon 01-03-2023 INR Coag (PPP) [Relative time] 2.53 {INR} Normal [facility] Comment on above: Performed By: #### B MP #### [facility] [address] [place] [address] Dr. Reji Thomas INR GUIDELINES SEE BELOW Normal [facility] Comment on above: Result Comment: SHY RED INR: 2.0 - 3.0 CONDITIONS NOT LISTED BELOW 2.5 - 3.5 FOR PROSTHETIC HEART VALVE REPLACEMENT 2.5 - 3.5 RECURRENT THROMBOSIS Performed By: #### B MP #### [facility] [address] [place] [address] Dr. Reji Thomas PT Coag (PPP) [Time] 25.4 s Critically high 9.0-11.6 [facility] Comment on above: Performed By: #### B MP #### [facility] [address] [place] [address] Dr. Reji Thomas PROTIMEon 11-23-2022 INR Coag (PPP) [Relative time] 1.71 {INR} Normal [facility] Comment on above: Performed By: #### B EYEWEAR MANUFACTURING TECH, CMP, TSH, LIPID #### [facility] [address] [place] [address] Dr. Reji Thomas INR GUIDELINES SEE BELOW Normal [facility] Comment on above: Result Comment: SHY RED INR: 2.0 - 3.0 CONDITIONS NOT LISTED BELOW 2.5 - 3.5 FOR PROSTHETIC HEART VALVE REPLACEMENT 2.5 - 3.5 RECURRENT THROMBOSIS Performed By: #### B EYEWEAR MANUFACTURING TECH, CMP, TSH, LIPID #### [facility] [address] [place] [address] Dr. Reji Thomas PT Coag (PPP) [Time] 17.6 s Critically high 9.0-11.6 [facility] Comment on above: Performed By: #### B EYEWEAR MANUFACTURING TECH, CMP, TSH, LIPID #### [facility] [address] [place] [address] Dr. Reji Thomas PROTIMEon 10-10-2022 INR Coag (PPP) [Relative time] 2.52 {INR} Normal [facility] Comment on above: Performed By: #### B EYEWEAR MANUFACTURING TECH, CMP, TSH, LIPID #### [facility] [address] [place] [address] Dr. Reji Thomas INR GUIDELINES SEE BELOW Normal [facility] Comment on above: Result Comment: SHY RED INR: 2.0 - 3.0 CONDITIONS NOT LISTED BELOW 2.5 - 3.5 FOR PROSTHETIC HEART VALVE REPLACEMENT 2.5 - 3.5 RECURRENT THROMBOSIS Performed By: #### B EYEWEAR MANUFACTURING TECH, CMP, TSH, LIPID #### [facility] [address] [place] [address] Dr. Reji Thomas PT Coag (PPP) [Time] 25.6 s Critically high 9.0-11.6 [facility] Comment on above: Performed By: #### B EYEWEAR MANUFACTURING TECH, CMP, TSH, LIPID #### [facility] [address] [place] [address] Dr. Reji Thomas PROTIMEon 09-05-2022 INR Coag (PPP) [Relative time] 2.03 {INR} Normal [facility] Comment on above: Performed By: #### B EYEWEAR MANUFACTURING TECH, CMP, TSH, LIPID #### [facility] [address] [place] [address] Dr. Reji Thomas INR GUIDELINES SEE BELOW Normal [facility] Comment on above: Result Comment: SHY RED INR: 2.0 - 3.0 CONDITIONS NOT LISTED BELOW 2.5 - 3.5 FOR PROSTHETIC HEART VALVE REPLACEMENT 2.5 - 3.5 RECURRENT THROMBOSIS Performed By: #### B EYEWEAR MANUFACTURING TECH, CMP, TSH, LIPID #### [facility] [address] [place] [address] Dr. Reji Thomas PT Coag (PPP) [Time] 20.9 s Critically high 9.0-11.6 [facility] Comment on above: Performed By: #### B EYEWEAR MANUFACTURING TECH, CMP, TSH, LIPID #### [facility] [address] [place] [address] Dr. Reji Thomas BNPon 08-10-2022 Natriuretic peptide B (Bld) [Mass/Vol] 1162.0 pg/mL Normal <=1,800.0 [facility] Comment on above: Performed By: #### B MP, BNP #### [facility] [address] [place] [address] Dr. Reji Thomas PROF CHEM 8 (BAS METB)on Anion gap [Moles/Vol] 11.3 mmol/L Normal [facility] Comment on above: Performed By: #### B MP, BNP #### [facility] [address] [place] [address] Dr. Reji Thomas Calcium [Mass/Vol] 8.9 mg/dL Normal 8.5-10.1 [facility] Comment on above: Performed By: #### B MP, BNP #### [facility] [address] [place] [address] Dr. Reji Thomas Chloride [Moles/Vol] 103 mmol/L Normal 98-107 [facility] Comment on above: Performed By: #### B MP, BNP #### [facility] [address] [place] [address] Dr. Reji Thomas CO2 [Moles/Vol] 28.2 mmol/L Normal 21.0-32.0 [facility] Comment on above: Performed By: #### B MP, BNP #### [facility] [address] [place] [address] Dr. Reji Thomas Creatinine [Mass/Vol] 2.07 mg/dL Critically high 0.55-1.02 [facility] Comment on above: Performed By: #### B MP, BNP #### [facility] [address] [place] [address] Dr. Reji Thomas EGFR-AF PRYDEINIG 28 mL/min/1.73m2 Critically low >=60 [facility] Comment on above: Performed By: #### B MP, BNP #### [facility] [address] [place] [address] Dr. Reji Thomas EGFR-NON AF PRYDEINIG 23 mL/min/1.73m2 Critically low >=60 [facility] Comment on above: Performed By: #### B MP, BNP #### [facility] [address] [place] [address] Dr. Reji Thomas Glucose [Mass/Vol] 88 mg/dL Normal 74-106 [facility] Comment on above: Performed By: #### B MP, BNP #### [facility] [address] [place] [address] Dr. Reji Thomas Potassium [Moles/Vol] 4.5 mmol/L Normal 3.5-5.1 [facility] Comment on above: Performed By: #### B MP, BNP #### [facility] [address] [place] [address] Dr. Reji Thomas Sodium [Moles/Vol] 138 mmol/L Normal 136-145 [facility] Comment on above: Performed By: #### B MP, BNP #### [facility] [address] [place] [address] Dr. Reji Thomas Urea nitrogen [Mass/Vol] 35.0 mg/dL Critically high 7.0-18.0 [facility] Comment on above: Performed By: #### B MP, BNP #### [facility] [address] [place] [address] Dr. Reji Thomas Urea nitrogen/Creatinine [Mass ratio] 16.9 mg/mg Normal [facility] Comment on above: Performed By: #### B MP, BNP #### [facility] [address] [place] [address] Dr. Reji Thomas PROTIMEon 08-09-2022 INR Coag (PPP) [Relative time] 2.04 {INR} Normal [facility] Comment on above: Performed By: #### B EYEWEAR MANUFACTURING TECH, CMP, TSH, LIPID #### [facility] [address] [place] [address] Dr. Reji Thomas INR GUIDELINES SEE BELOW Normal [facility] Comment on above: Result Comment: SHY RED INR: 2.0 - 3.0 CONDITIONS NOT LISTED BELOW 2.5 - 3.5 FOR PROSTHETIC HEART VALVE REPLACEMENT 2.5 - 3.5 RECURRENT THROMBOSIS Performed By: #### B EYEWEAR MANUFACTURING TECH, CMP, TSH, LIPID #### [facility] [address] [place] [address] Dr. Reji Thomas PT Coag (PPP) [Time] 21.0 s Critically high 9.0-11.6 [facility] Comment on above: Performed By: #### B EYEWEAR MANUFACTURING TECH, CMP, TSH, LIPID #### [facility] [address] [place] [address] Dr. Reji Thomas BNPon 07-09-2022 Natriuretic peptide B (Bld) [Mass/Vol] 2085.0 pg/mL Critically high <=1,800.0 [facility] Comment on above: Result Comment: LEX ACOSTA CALLED TO OFFICE ON 07-10-22 AT 0850 BY AR Performed By: #### B EYEWEAR MANUFACTURING TECH, CMP, TSH, LIPID #### [facility] [address] [place] [address] Dr. Reji Thomas PROF CHEM 8 (BAS METB)on Anion gap [Moles/Vol] 13.7 mmol/L Normal [facility] Comment on above: Performed By: #### B EYEWEAR MANUFACTURING TECH, CMP, TSH, LIPID #### [facility] [address] [place] [address] Dr. Reji Thomas Calcium [Mass/Vol] 8.3 mg/dL Critically low 8.5-10.1 [facility] Comment on above: Performed By: #### B EYEWEAR MANUFACTURING TECH, CMP, TSH, LIPID #### [facility] [address] [place] [address] Dr. Reji Thomas Chloride [Moles/Vol] 104 mmol/L Normal 98-107 [facility] Comment on above: Performed By: #### B EYEWEAR MANUFACTURING TECH, CMP, TSH, LIPID #### [facility] [address] [place] [address] Dr. Reji Thomas CO2 [Moles/Vol] 26.6 mmol/L Normal 21.0-32.0 [facility] Comment on above: Performed By: #### B EYEWEAR MANUFACTURING TECH, CMP, TSH, LIPID #### [facility] [address] [place] [address] Dr. Reji Thomas Creatinine [Mass/Vol] 1.98 mg/dL Critically high 0.55-1.02 [facility] Comment on above: Performed By: #### B EYEWEAR MANUFACTURING TECH, CMP, TSH, LIPID #### [facility] [address] [place] [address] Dr. Reji Thomas EGFR-AF PRYDEINIG 29 mL/min/1.73m2 Critically low >=60 [facility] Comment on above: Performed By: #### B EYEWEAR MANUFACTURING TECH, CMP, TSH, LIPID #### [facility] [address] [place] [address] Dr. Reji Thomas EGFR-NON AF PRYDEINIG 24 mL/min/1.73m2 Critically low >=60 [facility] Comment on above: Performed By: #### B EYEWEAR MANUFACTURING TECH, CMP, TSH, LIPID #### [facility] [address] [address] [address] Reji Thomas Glucose [Mass/Vol] 116 mg/dL Critically high 74-106 [facility] Comment on above: Performed By: #### B EYEWEAR MANUFACTURING TECH, CMP, TSH, LIPID #### [facility] [address] [place] [address] Dr. Reji Thomas Potassium [Moles/Vol] 4.3 mmol/L Normal 3.5-5.1 [facility] Comment on above: Performed By: #### B EYEWEAR MANUFACTURING TECH, CMP, TSH, LIPID #### [facility] [address] [place] [address] Dr. Reji Thomas Sodium [Moles/Vol] 140 mmol/L Normal 136-145 [facility] Comment on above: Performed By: #### B EYEWEAR MANUFACTURING TECH, CMP, TSH, LIPID #### [facility] [address] [place] [address] Dr. Reji Thomas Urea nitrogen [Mass/Vol] 35.0 mg/dL Critically high 7.0-18.0 [facility] Comment on above: Performed By: #### B EYEWEAR MANUFACTURING TECH, CMP, TSH, LIPID #### [facility] [address] [place] [address] Dr. Reji Thomas Urea nitrogen/Creatinine [Mass ratio] 17.7 mg/mg Normal [facility] Comment on above: Performed By: #### B EYEWEAR MANUFACTURING TECH, CMP, TSH, LIPID #### [facility] [address] [place] [address] Dr. Reji Thomas PROTIMEon 07-09-2022 INR Coag (PPP) [Relative time] 2.99 {INR} Normal [facility] Comment on above: Performed By: #### B EYEWEAR MANUFACTURING TECH, CMP, TSH, LIPID #### [facility] [address] [place] [address] Dr. Reji Thomas INR GUIDELINES SEE BELOW Normal [facility] Comment on above: Result Comment: SHY RED INR: 2.0 - 3.0 CONDITIONS NOT LISTED BELOW 2.5 - 3.5 FOR PROSTHETIC HEART VALVE REPLACEMENT 2.5 - 3.5 RECURRENT THROMBOSIS Performed By: #### B EYEWEAR MANUFACTURING TECH, CMP, TSH, LIPID #### [facility] [address] [place], [place] [address] Dr. Reji Thomas PT Coag (PPP) [Time] 30.1 s Critically high 9.0-11.6 [facility] Comment on above: Performed By: #### B EYEWEAR MANUFACTURING TECH, CMP, TSH, LIPID #### [facility] [address] [address] [address] Reji Thomas US KIDNEYSon 07-06-2022 US [...] SIGRID RICHMOND Date: 2022-07-06 13:31 Normal [facility]AN Antinuclear Antibodieson 06-19-2022 Antinuclear Abs, IFA Positive Critically abnormal . [facility] Comment on above: Result Comment: Nega tive <1:80 Borderline 1:80 Positive >1:80 Performed By: #### C UU, ADDONUAPLUS #### [address] #### C3, C4, CH50 #### [facility] , Homogeneous Pattern 1:320 High . [facility] Comment on above: Result Comment: ICAP nomenclature: [id number] Performed By: #### C MIKY CHOW #### [facility] [address] #### C3, C4, CH50 #### [facility] , Note 1 Normal . [facility] Comment on above: Result [...] titers Nucleosomes, Histones Drug-induced SLE Speckled Sm, BOX BLANK MACHINE FEEDER, SCL-70, SLE,MCTD,PSS (diffuse form), SS-A/SS-B Sjogrens Nucleolar SCL-70, PM-1/SCL High titers Scleroderma, PM/DM Centromere Centromere PSS (limited form) w/Crest syndrome variable Nuclear Dot [id number] Primary Biliary Cirrhosis Nuclear GP210, Primary Biliary Cirrhosis Membrane eleonora A,B,C Performed at: [facility] [place] [address] [employer] Crane Operator: Demarcus Lawton PhD, Phone: [phone] Performed By: #### COURTNEY GOMEZONUAPLUS #### [address] #### C3, C4, CH50 #### [facility] , Anti-RNPon 06-19-2022 Anti-BOX BLANK MACHINE FEEDER 0.4 Normal 0.0-0.9 [facility] Comment on above: Result Comment: Perf ormed at: [place] [address] [employer] Crane Operator: Demarcus Lawton PhD, Phone: [phone] Performed By: #### Krista CHOW, ADDONUAPLUS #### [address] #### C3, C4, CH50 #### [facility] , C-Reactive Proteinon 022 C-Reactive Protein 2.0 mg/dL High 0.0-1.0 [facility] Comment on above: Result Comment: PERF ORMED BY: [place] [address] PATHOLOGIST [employer] RADHA BULLARD M.D. Performed By: #### C UU, ADDONUAPLUS #### [address] #### C3, C4, CH50 #### [facility] , Complement C3on 06-19-2022 Complement C3 167 mg/dL Normal 82-167 [facility] Comment on above: Result Comment: Perf ormed at: [facility] [employer] [id number] [employer] Crane Operator: Demarcus Lawton PhD, Phone: [phone] Performed By: #### C UU, ADDONUAPLUS #### [address] #### C3, C4, CH50 #### [facility] , Complement C4on 06-19-2022 Complement C4 37 mg/dL Normal 12-38 [facility] Comment on above: Performed By: #### C UU, ADDONUAPLUS #### [address] #### C3, C4, CH50 #### [facility] , Complement Total (CH50)on Complement Total (CH50) >60 Normal >41 [facility] Comment on above: Result [...] determine out of range values. Performed at: [facility] [id number] Railroad Crane Operator: Demarcus Lawton PhD, Phone: [phone] PERFORMED BY: [place] [address] PATHOLOGIST [employer] RADHA BULLARD M.D. Performed By: #### C UU, ADDONUAPLUS #### [address] #### C3, C4, CH50 #### [facility] , Complete Blood Count Auto Di ffon 06-19-2022 Basophils (Bld) [#/Vol] 0.1 10*3/uL Normal 0.0-0.2 [facility] Comment on above: Performed By: #### H EPATIC, CBC, ESR, CRP, CREAT, CK #### [place] [address] [place] #### RNA POLYMR, ANTI TH TO, EVAN, U3 BOX BLANK MACHINE FEEDER, ANTIR, PM-SCL ABS #### [facility] , Basophils/100 WBC (Bld) 0.9 % Normal . [facility] Comment on above: Performed By: #### H EPATIC, CBC, ESR, CRP, CREAT, CK #### [place] [address] [place] #### RNA POLYMR, ANTI TH TO, EVAN, U3 BOX BLANK MACHINE FEEDER, ANTIR, PM-SCL ABS #### [facility] , Eosinophils (Bld) [#/Vol] 0.5 10*3/uL High 0.0-0.45 [facility] Comment on above: Performed By: #### H EPATIC, CBC, ESR, CRP, CREAT, CK #### [place] [address] [place] #### RNA POLYMR, ANTI TH TO, EVAN, U3 BOX BLANK MACHINE FEEDER, ANTIR, PM-SCL ABS #### [facility] , Eosinophils/100 WBC (Bld) 8.6 % Normal . [facility] Comment on above: Performed By: #### H EPATIC, CBC, ESR, CRP, CREAT, CK #### [address] #### RNA POLYMR, ANTI TH TO, EVAN, U3 BOX BLANK MACHINE FEEDER, ANTIR, PM-SCL ABS #### [facility] , Erythrocyte distribution width (RBC) [Ratio] 19.6 % High 11.9-15.3 [facility] Comment on above: Performed By: #### H EPATIC, CBC, ESR, CRP, CREAT, CK #### [place] [address] [place] #### RNA POLYMR, ANTI TH TO, EVAN, U3 BOX BLANK MACHINE FEEDER, ANTIR, PM-SCL ABS #### [facility] , Hematocrit (Bld) [Volume fraction] 33.8 % Low 34.0-46.4 [facility] Comment on above: Performed By: #### H EPATIC, CBC, ESR, CRP, CREAT, CK #### [address] #### RNA POLYMR, ANTI TH TO, EVAN, U3 BOX BLANK MACHINE FEEDER, ANTIR, PM-SCL ABS #### [facility] , Hemoglobin (Bld) [Mass/Vol] 10.9 g/dL Low 11.8-15.4 [facility] Comment on above: Performed By: #### H EPATIC, CBC, ESR, CRP, CREAT, CK #### [place] [address] [place] #### RNA POLYMR, ANTI TH TO, EVAN, U3 BOX BLANK MACHINE FEEDER, ANTIR, PM-SCL ABS #### [facility] , Lymphocytes (Bld) [#/Vol] 1.1 10*3/uL Normal 1.00-4.8 [facility] Comment on above: Performed By: #### H EPATIC, CBC, ESR, CRP, CREAT, CK #### [address] #### RNA POLYMR, ANTI TH TO, EVAN, U3 BOX BLANK MACHINE FEEDER, ANTIR, PM-SCL ABS #### [facility] , Lymphocytes/100 WBC (Bld) 17.8 % Normal . [facility] Comment on above: Performed By: #### H EPATIC, CBC, ESR, CRP, CREAT, CK #### [facility] [address] [place] [address] #### RNA POLYMR, ANTI TH TO, EVAN, U3 BOX BLANK MACHINE FEEDER, ANTIR, PM-SCL ABS #### [facility] , MCH (RBC) [Entitic mass] 26.4 pg Normal 24.7-34.3 [facility] Comment on above: Performed By: #### H EPATIC, CBC, ESR, CRP, CREAT, CK #### [facility] [address] [place] [address] #### RNA POLYMR, ANTI TH TO, EVAN, U3 BOX BLANK MACHINE FEEDER, ANTIR, PM-SCL ABS #### [facility] , MCV (RBC) [Entitic vol] 81.8 fL Normal 80-100 [facility] Comment on above: Performed By: #### H EPATIC, CBC, ESR, CRP, CREAT, CK #### [address] #### RNA POLYMR, ANTI TH TO, EVAN, U3 BOX BLANK MACHINE FEEDER, ANTIR, PM-SCL ABS #### [facility] , Mean Corpuscular HGB Conc 32.3 g/dL Normal 32.0-35.0 [facility] Comment on above: Performed By: #### H EPATIC, CBC, ESR, CRP, CREAT, CK #### [facility] [address] [place] [address] [place] #### RNA POLYMR, ANTI TH TO, EVAN, U3 BOX BLANK MACHINE FEEDER, ANTIR, PM-SCL ABS #### [facility] , Monocytes (Bld) [#/Vol] 0.4 10*3/uL Normal 0.0-0.8 [facility] Comment on above: Performed By: #### H EPATIC, CBC, ESR, CRP, CREAT, CK #### [place] [address] [place] #### RNA POLYMR, ANTI TH TO, EVAN, U3 BOX BLANK MACHINE FEEDER, ANTIR, PM-SCL ABS #### [facility] , Monocytes/100 WBC (Bld) 7.4 % Normal . [facility] Comment on above: Performed By: #### H EPATIC, CBC, ESR, CRP, CREAT, CK #### [place] [address] [place] #### RNA POLYMR, ANTI TH TO, EVAN, U3 BOX BLANK MACHINE FEEDER, ANTIR, PM-SCL ABS #### [facility] , Neutrophils (Bld) [#/Vol] 3.9 10*3/uL Normal 1.8-7.7 [facility] Comment on above: Performed By: #### H EPATIC, CBC, ESR, CRP, CREAT, CK #### [place] [address] [place] #### RNA POLYMR, ANTI TH TO, EVAN, U3 BOX BLANK MACHINE FEEDER, ANTIR, PM-SCL ABS #### [facility] , Neutrophils/100 WBC (Bld) 65.3 % Normal . [facility] Comment on above: Performed By: #### H EPATIC, CBC, ESR, CRP, CREAT, CK #### [place] [address] [place] #### RNA POLYMR, ANTI TH TO, EVAN, U3 BOX BLANK MACHINE FEEDER, ANTIR, PM-SCL ABS #### [facility] , Nucleated RBC/100 WBC (Bld) [Ratio] 0.0 % Normal 0-0.5 [facility] Comment on above: Performed By: #### H EPATIC, CBC, ESR, CRP, CREAT, CK #### [place] [address] [place] #### RNA POLYMR, ANTI TH TO, EVAN, U3 BOX BLANK MACHINE FEEDER, ANTIR, PM-SCL ABS #### [facility] , Platelet mean volume (Bld) [Entitic vol] 7.2 fL Normal 6.3-10.7 [facility] Comment on above: Performed By: #### H EPATIC, CBC, ESR, CRP, CREAT, CK #### [facility] [address] [place] [address] #### RNA POLYMR, ANTI TH TO, EVAN, U3 BOX BLANK MACHINE FEEDER, ANTIR, PM-SCL ABS #### [facility] , Platelets (Bld) [#/Vol] 237 10*3/uL Normal 150-450 [facility] Comment on above: Performed By: #### H EPATIC, CBC, ESR, CRP, CREAT, CK #### [facility] [address] [place] [address] #### RNA POLYMR, ANTI TH TO, EVAN, U3 BOX BLANK MACHINE FEEDER, ANTIR, PM-SCL ABS #### [facility] , RBC (Bld) [#/Vol] 4.14 10*6/uL Normal 3.60-5.00 [facility] Comment on above: Performed By: #### H EPATIC, CBC, ESR, CRP, CREAT, CK #### [facility] [address] [place] [address] #### RNA POLYMR, ANTI TH TO, EVAN, U3 BOX BLANK MACHINE FEEDER, ANTIR, PM-SCL ABS #### [facility] , WBC (Bld) [#/Vol] 6.0 10*3/uL Normal 4.5-11.0 [facility] Comment on above: Performed By: #### H EPATIC, CBC, ESR, CRP, CREAT, CK #### [facility] [address] [place] [address] [place] #### RNA POLYMR, ANTI TH TO, EVAN, U3 BOX BLANK MACHINE FEEDER, ANTIR, PM-SCL ABS #### [facility] , Creatine Kinaseon 06-19-2022 CK [Catalytic activity/Vol] 38 U/L Normal 22-269 [facility] Comment on above: Result Comment: PERF ORMED BY: [place] [address] PATHOLOGIST [employer] RADHA BULLARD M.D. Performed By: #### H EPATIC, CBC, ESR, CRP, CREAT, CK #### [address] #### RNA POLYMR, ANTI TH TO, EVAN, U3 BOX BLANK MACHINE FEEDER, ANTIR, PM-SCL ABS #### [facility] , Creatinineon 06-19-2022 Creatinine [Mass/Vol] 2.82 mg/dL High 0.44-1.03 [facility] Comment on above: Performed By: #### H EPATIC, CBC, ESR, CRP, CREAT, CK #### [address] #### RNA POLYMR, ANTI TH TO, EVAN, U3 BOX BLANK MACHINE FEEDER, ANTIR, PM-SCL ABS #### [facility] , Estimated GFR ( [facility] Comment on above: Result Comment: GFR estimated reference range: According to KDOQI guidelines, <60 ml/min/1.73m2 is sufficient to diagnose a patient with chronic kidney disease. Performed By: #### H EPATIC, CBC, ESR, CRP, CREAT, CK #### [address] #### RNA POLYMR, ANTI TH TO, EVAN, U3 BOX BLANK MACHINE FEEDER, ANTIR, PM-SCL ABS #### [facility] , Estimated GFR (Non- Am [facility] Comment on above: Performed By: #### H EPATIC, CBC, ESR, CRP, CREAT, CK #### [facility] [address] [place] [address] [place] #### RNA POLYMR, ANTI TH TO, EVAN, U3 BOX BLANK MACHINE FEEDER, ANTIR, PM-SCL ABS #### [facility] , Dipstick and Microscopicon 0 06-19-2022 Appearance (U) Cloudy Critically abnormal Clear [facility] Comment on above: Order Comment: Name Collection Type:: Clean-Voided Midstream Performed By: #### C UU, ADDONUAPLUS #### [facility] [address] [place] [address] #### C3, C4, CH50 #### [facility] , Bacteria,Urine 1+ High None Seen [facility] Comment on above: Order Comment: Name Collection Type:: Clean-Voided Midstream Performed By: #### C UU, ADDONUAPLUS #### [facility] [address] [place] [address] #### C3, C4, CH50 #### [facility] , Bilirubin,Urine Negative Normal Negative [facility] Comment on above: Order Comment: Name Collection Type:: Clean-Voided Midstream Performed By: #### C UU, ADDONUAPLUS #### [facility] [address] [place] [address] #### C3, C4, CH50 #### [facility] , Color (U) Yellow Normal Yellow [facility] Comment on above: Order Comment: Name Collection Type:: Clean-Voided Midstream Performed By: #### C UU, ADDONUAPLUS #### [facility] [address] [place] [address] #### C3, C4, CH50 #### [facility] , Glucose Ql (U) Normal Normal Normal [facility] Comment on above: Order Comment: Name Collection Type:: Clean-Voided Midstream Performed By: #### C UU, ADDONUAPLUS #### [facility] [address] [place] [address] #### C3, C4, CH50 #### [facility] , Hyaline Casts,Urine 1-2 Normal 0-8 [facility] Comment on above: Order Comment: Name Collection Type:: Clean-Voided Midstream Result Comment: PERF ORMED BY: [place] [address] PATHOLOGIST [employer] RADHA BULLARD M.D. Performed By: #### C UU, ADDONUAPLUS #### [address] #### C3, C4, CH50 #### [facility] , Ketones Ql (U) Negative Normal Negative [facility] Comment on above: Order Comment: Name Collection Type:: Clean-Voided Midstream Performed By: #### C UU, ADDONUAPLUS #### [address] #### C3, C4, CH50 #### [facility] , Leukocyte esterase Test strip Ql (U) 4+ High Negative [facility] Comment on above: Order Comment: Name Collection Type:: Clean-Voided Midstream Performed By: #### C UU, ADDONUAPLUS #### [address] #### C3, C4, CH50 #### [facility] , Nitrite,Urine Negative Normal Negative [facility] Comment on above: Order Comment: Name Collection Type:: Clean-Voided Midstream Performed By: #### C UU, ADDONUAPLUS #### [address] #### C3, C4, CH50 #### [facility] , Occult Blood,Urine 1+ High Negative [facility] Comment on above: Order Comment: Name Collection Type:: Clean-Voided Midstream Performed By: #### C UU, ADDONUAPLUS #### [address] #### C3, C4, CH50 #### [facility] , pH (U) 6.5 [pH] Normal 5.0-9.0 [facility] Comment on above: Order Comment: Name Collection Type:: Clean-Voided Midstream Performed By: #### C UU, ADDONUAPLUS #### [address] [place] [address] [place] #### C3, C4, CH50 #### [facility] , Protein,Urine Trace High Negative [facility] Comment on above: Order Comment: Name Collection Type:: Clean-Voided Midstream Performed By: #### C UU, ADDONUAPLUS #### [address] #### C3, C4, CH50 #### [facility] , RBC,Urine 1-2 Normal 0-4 [facility] Comment on above: Order Comment: Name Collection Type:: Clean-Voided Midstream Performed By: #### C UU, ADDONUAPLUS #### [address] #### C3, C4, CH50 #### [facility] , Specificy [place],Urine 1.010 Normal 1.001-1.030 [facility] Comment on above: Order Comment: Name Collection Type:: Clean-Voided Midstream Performed By: #### C UU, ADDONUAPLUS #### [address] #### C3, C4, CH50 #### [facility] , Squamous Epithelial Cell,Urine 5-9 High 0-2 [facility] Comment on above: Order Comment: Name Collection Type:: Clean-Voided Midstream Performed By: #### C UU, ADDONUAPLUS #### [address] #### C3, C4, CH50 #### [facility] , Urobilinogen,Urine Normal Normal Normal [facility] Comment on above: Order Comment: Name Collection Type:: Clean-Voided Midstream Performed By: #### C UU, ADDONUAPLUS #### [address] #### C3, C4, CH50 #### [facility] , WBC,Urine Innumerable High 0-4 [facility] Comment on above: Order Comment: Name Collection Type:: Clean-Voided Midstream Performed By: #### C UU, ADDONUAPLUS #### [address] #### C3, C4, CH50 #### [facility] , Erythrocyte Sedimentation Ra pratik 06-19-2022 ESR (Bld) [Velocity] 57 mm/h High 0-29 [facility] Comment on above: Result Comment: PERF ORMED BY: [place] [address] PATHOLOGIST [employer] BULLARD M.D. Performed By: #### H EPATIC, CBC, ESR, CRP, CREAT, CK #### [address] #### RNA POLYMR, ANTI TH TO, EVAN, U3 BOX BLANK MACHINE FEEDER, ANTIR, PM-SCL ABS #### [facility] , Hepatic Panelon 06-19-2022 Albumin [Mass/Vol] 3.6 g/dL Normal 3.2-5.5 [facility] Comment on above: Performed By: #### H EPATIC, CBC, ESR, CRP, CREAT, CK #### [facility] [address] [place] [address] #### RNA POLYMR, ANTI TH TO, EVAN, U3 BOX BLANK MACHINE FEEDER, ANTIR, PM-SCL ABS #### [facility] , Albumin/Globulin [Mass ratio] 1.0 {ratio} Normal [facility] Comment on above: Performed By: #### H EPATIC, CBC, ESR, CRP, CREAT, CK #### [facility] [address] [place] [address] [place] #### RNA POLYMR, ANTI TH TO, EVAN, U3 BOX BLANK MACHINE FEEDER, ANTIR, PM-SCL ABS #### [facility] , ALP [Catalytic activity/Vol] 68 U/L Normal 32-92 [facility] Comment on above: Performed By: #### H EPATIC, CBC, ESR, CRP, CREAT, CK #### [facility] [address] [place] [address] [place] #### RNA POLYMR, ANTI TH TO, EVAN, U3 BOX BLANK MACHINE FEEDER, ANTIR, PM-SCL ABS #### [facility] , ALT [Catalytic activity/Vol] 9 U/L Low 10-60 [facility] Comment on above: Performed By: #### H EPATIC, CBC, ESR, CRP, CREAT, CK #### [facility] [address] [place] [address] [place] #### RNA POLYMR, ANTI TH TO, EVAN, U3 BOX BLANK MACHINE FEEDER, ANTIR, PM-SCL ABS #### [facility] , AST [Catalytic activity/Vol] 15 U/L Normal 1042 [facility] Comment on above: Performed By: #### H EPATIC, CBC, ESR, CRP, CREAT, CK #### [place] [address] [place] #### RNA POLYMR, ANTI TH TO, EVAN, U3 BOX BLANK MACHINE FEEDER, ANTIR, PM-SCL ABS #### [facility] , Bilirubin [Mass/Vol] 0.6 mg/dL Normal 0.3-1.2 [facility] Comment on above: Performed By: #### H EPATIC, CBC, ESR, CRP, CREAT, CK #### [facility] [address] [place] [address] [place] #### RNA POLYMR, ANTI TH TO, EVAN, U3 BOX BLANK MACHINE FEEDER, ANTIR, PM-SCL ABS #### [facility] , Bilirubin,Indirect 0.4 mg/dL Normal [facility] Comment on above: Performed By: #### H EPATIC, CBC, ESR, CRP, CREAT, CK #### [place] [address] [place] #### RNA POLYMR, ANTI TH TO, EVAN, U3 BOX BLANK MACHINE FEEDER, ANTIR, PM-SCL ABS #### [facility] , Bilirubin.indirect [Mass/Vol] 0.2 mg/dL Normal 0.0-0.4 [facility] Comment on above: Performed By: #### H EPATIC, CBC, ESR, CRP, CREAT, CK #### [address] #### RNA POLYMR, ANTI TH TO, EVAN, U3 BOX BLANK MACHINE FEEDER, ANTIR, PM-SCL ABS #### [facility] , Globulin (S) [Mass/Vol] 3.5 g/dL Normal [facility] Comment on above: Performed By: #### H EPATIC, CBC, ESR, CRP, CREAT, CK #### [address] #### RNA POLYMR, ANTI TH TO, EVAN, U3 BOX BLANK MACHINE FEEDER, ANTIR, PM-SCL ABS #### [facility] , Protein [Mass/Vol] 7.1 g/dL Normal 6.1-7.9 [facility] Comment on above: Performed By: #### H EPATIC, CBC, ESR, CRP, CREAT, CK #### [place] [address] [place] #### RNA POLYMR, ANTI TH TO, EVAN, U3 BOX BLANK MACHINE FEEDER, ANTIR, PM-SCL ABS #### [facility] , PM-SCL Antibodieson 06-19-20 22 RAIZA PM-Scl Antibody <20 Normal <20 [facility] Comment on above: Result Comment: This test was developed and its performance characteristics determined by [facility]. It has not been cleared or approved by the Food and Drug Administration. Negative: <20 Weak Positive: 20 - 39 Moderate Positive: 40 - 80 Strong Positive: >80 Performed at: [facility] [address] [place] [id number] Railroad Crane Operator: Artemio Nair MD, Phone: [phone] Performed By: #### C UU, ADDONUAPLUS #### [address] [place] [address] [place] #### C3, C4, CH50 #### [facility] , RNA Polymerase IIion 022 RNA Polymerase IIi <20 Normal <20 [facility] Comment on above: Result Comment: Nega tive: <20 Weak Positive: 20 - 39 Moderate Positive: 40 - 80 Strong Positive: >80 Performed at: [facility] [address] [place] [address] [id number] Railroad Crane Operator: Artemio Nair MD, Phone: [phone] PERFORMED BY: [place] [address] PATHOLOGIST [employer] RADHA BULLARD M.D. Performed By: #### C UU, ADDONUAPLUS #### [address] #### C3, C4, CH50 #### [facility] , Th/To Antibodyon 06-19-2022 Th/To Antibody Negative Normal Negative [facility] Comment on above: Result Comment: This test was developed and its performance characteristics determined by [facility]. It has not been cleared or approved by the Food and Drug Administration. Performed at: [facility] [address] [place] [address] [id number] Railroad Crane Operator: Artemio Nair MD, Phone: [phone] Performed By: #### C UU, ADDONUAPLUS #### [facility] [address] [place] [address] #### C3, C4, CH50 #### [facility] , U3 Rnpon 06-19-2022 U3 Biopsychologist Negative Normal Negative [facility] Comment on above: Result Comment: This test was developed and its performance characteristics determined by [facility] It has not been cleared or approved by the Food and Drug Administration. Performed at: [facility] [address] [place] [address] [phone] Railroad Crane Operator: Artemio Nair MD, Phone: [phone] PERFORMED BY: [place] [address] PATHOLOGIST [employer] RADHA BULLARD M.D. Performed By: #### C UU, ADDONUAPLUS #### [address] #### C3, C4, CH50 #### [facility] , Urine Cultureon 06-19-2022 Bacteria identified Cx Nom (U) No Growth 2 Days PERFORMED BY: [place] [address] PATHOLOGIST [employer] RADHA BULLARD M.D. Normal [facility] Comment on above: Performed By: #### C UU, ADDONUAPLUS #### [address] #### C3, C4, CH50 #### [facility] , PROF CHEM 8 (BAS METB)on Anion gap [Moles/Vol] 12.5 mmol/L Normal [facility] Comment on above: Performed By: #### B MP #### [facility] [address] [address] [address] Reji Thomas Calcium [Mass/Vol] 8.9 mg/dL Normal 8.5-10.1 [facility] Comment on above: Performed By: #### B MP #### [facility] [address] [address] [address] Reji Thomas Chloride [Moles/Vol] 103 mmol/L Normal 98-107 [facility] Comment on above: Performed By: #### B MP #### [facility] [address] [address] [address] Reji Thomas CO2 [Moles/Vol] 26.1 mmol/L Normal 21.0-32.0 [facility] Comment on above: Performed By: #### B MP #### [facility] [address] [address] [address] Reji Thomas Creatinine [Mass/Vol] 2.09 mg/dL Critically high 0.55-1.02 [facility] Comment on above: Performed By: #### B MP #### [facility] [address] [address] [address] Reji Thomas EGFR-AF PRYDEINIG 27 mL/min/1.73m2 Critically low >=60 [facility] Comment on above: Performed By: #### B MP #### [facility] [address] [address] [address] Reji Thomas EGFR-NON AF PRYDEINIG 23 mL/min/1.73m2 Critically low >=60 [facility] Comment on above: Performed By: #### B MP #### [facility] [address] [address] [address] Reji Thomas Glucose [Mass/Vol] 96 mg/dL Normal 74-106 [facility] Comment on above: Performed By: #### B MP #### [facility] [address] [address] [address] Reji Thomas Potassium [Moles/Vol] 4.6 mmol/L Normal 3.5-5.1 [facility] Comment on above: Performed By: #### B MP #### [facility] [address] [address] [address] Reji Thomas Sodium [Moles/Vol] 137 mmol/L Normal 136-145 [facility] Comment on above: Performed By: #### B MP #### [facility] [address] [address] [address] Reji Thomas Urea nitrogen [Mass/Vol] 38.0 mg/dL Critically high 7.0-18.0 [facility] Comment on above: Performed By: #### B MP #### [facility] [address] [address] [address] Reji Thomas Urea nitrogen/Creatinine [Mass ratio] 18.2 mg/mg Normal [facility] Comment on above: Performed By: #### B MP #### [facility] [address] [address] [address] Reji Thomas PROTIMEon 06-04-2022 INR Coag (PPP) [Relative time] 2.51 {INR} Normal [facility] Comment on above: Performed By: #### B EYEWEAR MANUFACTURING TECH, CMP, TSH, LIPID #### [facility] [address] [place] [address] Dr. Reji Thomas INR GUIDELINES SEE BELOW Normal [facility] Comment on above: Result Comment: SHY RED INR: 2.0 - 3.0 CONDITIONS NOT LISTED BELOW 2.5 - 3.5 FOR PROSTHETIC HEART VALVE REPLACEMENT 2.5 - 3.5 RECURRENT THROMBOSIS Performed By: #### B EYEWEAR MANUFACTURING TECH, CMP, TSH, LIPID #### [facility] [address] [place] [address] Dr. Reji Thomas PT Coag (PPP) [Time] 25.5 s Critically high 9.0-11.6 [facility] Comment on above: Performed By: #### B EYEWEAR MANUFACTURING TECH, CMP, TSH, LIPID #### [facility] [address] [place] [address] Dr. Reji Thomas BNPon 05-15-2022 Natriuretic peptide B (Bld) [Mass/Vol] 3661.0 pg/mL Critically high <=1,800.0 [facility] Comment on above: Performed By: #### B EYEWEAR MANUFACTURING TECH, CMP, TSH, LIPID #### [facility] [address] [place] [address] Dr. Reji Thomas CBC AUTO DIFFon 05-15-2022 BASO # 0.1 103/ul Normal 0.0-0.1 [facility] Comment on above: Performed By: #### B MP #### [facility] [address] [place] [address] Dr. Reji Thomas Basophils/100 WBC (Bld) 1.1 % Normal 0.2-2.0 [facility] Comment on above: Performed By: #### B MP #### [facility] [address] [place] [address] Dr. Reji Thomas EO # 0.5 103/ul Normal 0.0-0.7 [facility] Comment on above: Performed By: #### B MP #### [facility] [address] [place] [address] Dr. Reji Thomas Eosinophils/100 WBC (Bld) 6.5 % Normal 0.9-7.0 [facility] Comment on above: Performed By: #### B MP #### [facility] [address] [place] [address] Dr. Reji Thomas Erythrocyte distribution width (RBC) [Ratio] 16.1 % Critically high 11.0-15.0 [facility] Comment on above: Performed By: #### B MP #### [facility] [address] [place] [address] Dr. Reji Thomas Hematocrit (Bld) [Volume fraction] 35.0 % Critically low 36.0-48.0 [facility] Comment on above: Performed By: #### B MP #### [facility] [address] [place] [address] Dr. Reji Thomas Hemoglobin (Bld) [Mass/Vol] 11.1 g/dL Critically low 12.0-16.0 [facility] Comment on above: Performed By: #### B MP #### [facility] [address] [place] [address] Dr. Reji Thomas IG # 0.02 10e3/ul Normal 0.00-0.03 [facility] Comment on above: Performed By: #### B MP #### [facility] [address] [place] [address] Dr. Reji Thomas IG % 0.3 % Normal 0.0-0.5 [facility] Comment on above: Performed By: #### B MP #### [facility] [address] [place] [address] Dr. Reji Thomas LYMPH # 1.6 103/ul Normal 1.2-3.8 [facility] Comment on above: Performed By: #### B MP #### [facility] [address] [place] [address] Dr. Reji Thomas Lymphocytes/100 WBC (Bld) 22.4 % Normal 20.5-60.0 [facility] Comment on above: Performed By: #### B MP #### [facility] [address] [place] [address] Dr. Reji Thomas MANUAL DIFF REQ NO Normal [facility] Comment on above: Performed By: #### B MP #### [facility] [address] [address] [address] Reji Thomas MCH (RBC) [Entitic mass] 26.4 pg Critically low 26.7-34.0 [facility] Comment on above: Performed By: #### B MP #### [facility] [address] [place] [address] Dr. Reji Thomas MCHC (RBC) [Mass/Vol] 31.7 g/dL Normal 29.9-35.2 [facility] Comment on above: Performed By: #### B MP #### [facility] [address] [place] [address] Dr. Reji Thomas MCV (RBC) [Entitic vol] 83.1 fL Normal 81.0-99.0 [facility] Comment on above: Performed By: #### B MP #### [facility] [address] [place] [address] Dr. Reji Thomas MONO # 0.9 103/ul Critically high 0.3-0.8 [facility] Comment on above: Performed By: #### B MP #### [facility] [address] [place] [address] Dr. Reji Thomas Monocytes/100 WBC (Bld) 12.1 % Critically high 1.7-12.0 [facility] Comment on above: Performed By: #### B MP #### [facility] [address] [place] [address] Dr. Reji Thomas NEUT # 4.1 103/ul Normal 1.4-6.5 [facility] Comment on above: Performed By: #### B MP #### [facility] [address] [place] [address] Dr. Reji Thomas Neutrophils/100 WBC (Bld) 57.6 % Normal 43.0-75.0 [facility] Comment on above: Performed By: #### B MP #### [facility] [address] [place] [address] Dr. Rjei Thomas Platelet mean volume (Bld) [Entitic vol] 8.8 fL Critically low 9.5-13.5 [facility] Comment on above: Performed By: #### B MP #### [facility] [address] [address] [address] Reji Thomas PLT 253 103/ul Normal 150-450 [facility] Comment on above: Performed By: #### B MP #### [facility] [address] [address] [address] Reji Thomas RBC 4.21 106/ul Normal 4.20-5.40 [facility] Comment on above: Performed By: #### B MP #### [facility] [address] [place] [address] Dr. Reji Thomas WBC 7.1 103/ul Normal 4.0-11.0 [facility] Comment on above: Performed By: #### B MP #### [facility] [address] [place] [address] Dr. Reji Thomas PROF CHEM 8 (BAS METB)on Anion gap [Moles/Vol] 10.5 mmol/L Normal [facility] Comment on above: Performed By: #### B EYEWEAR MANUFACTURING TECH, CMP, TSH, LIPID #### [facility] [address] [place] [address] Dr. Reji Thomas Calcium [Mass/Vol] 8.9 mg/dL Normal 8.5-10.1 [facility] Comment on above: Performed By: #### B EYEWEAR MANUFACTURING TECH, CMP, TSH, LIPID #### [facility] [address] [place] [address] Dr. Reji Thomas Chloride [Moles/Vol] 104 mmol/L Normal 98-107 [facility] Comment on above: Performed By: #### B EYEWEAR MANUFACTURING TECH, CMP, TSH, LIPID #### [facility] [address] [place] [address] Dr. Reji Thomas CO2 [Moles/Vol] 29.5 mmol/L Normal 21.0-32.0 [facility] Comment on above: Performed By: #### B EYEWEAR MANUFACTURING TECH, CMP, TSH, LIPID #### [facility] [address] [place] [address] Dr. Reji Thomas Creatinine [Mass/Vol] 1.73 mg/dL Critically high 0.55-1.02 [facility] Comment on above: Performed By: #### B EYEWEAR MANUFACTURING TECH, CMP, TSH, LIPID #### [facility] [address] [place] [address] Dr. Reji Thomas EGFR-AF PRYDEINIG 34 mL/min/1.73m2 Critically low >=60 [facility] Comment on above: Performed By: #### B EYEWEAR MANUFACTURING TECH, CMP, TSH, LIPID #### [facility] [address] [place] [address] Dr. Reji Thomas EGFR-NON AF PRYDEINIG 28 mL/min/1.73m2 Critically low >=60 [facility] Comment on above: Performed By: #### B EYEWEAR MANUFACTURING TECH, CMP, TSH, LIPID #### [facility] [address] [place] [address] Dr. Reji Thomas Glucose [Mass/Vol] 79 mg/dL Normal 74-106 [facility] Comment on above: Performed By: #### B EYEWEAR MANUFACTURING TECH, CMP, TSH, LIPID #### [facility] [address] [place] [address] Dr. Reji Thomas Potassium [Moles/Vol] 4.0 mmol/L Normal 3.5-5.1 [facility] Comment on above: Performed By: #### B EYEWEAR MANUFACTURING TECH, CMP, TSH, LIPID #### [facility] [address] [place] [address] Dr. Reji Thomas Sodium [Moles/Vol] 140 mmol/L Normal 136-145 [facility] Comment on above: Performed By: #### B EYEWEAR MANUFACTURING TECH, CMP, TSH, LIPID #### [facility] [address] [place] [address] Dr. Reji Thomas Urea nitrogen [Mass/Vol] 22.0 mg/dL Critically high 7.0-18.0 [facility] Comment on above: Performed By: #### B EYEWEAR MANUFACTURING TECH, CMP, TSH, LIPID #### [facility] [address] [place] [address] Dr. Reji Thomas Urea nitrogen/Creatinine [Mass ratio] 12.7 mg/mg Normal [facility] Comment on above: Performed By: #### B EYEWEAR MANUFACTURING TECH, CMP, TSH, LIPID #### [facility] [address] [address] [address] Reji Thomas PROTIMEon 05-15-2022 INR Coag (PPP) [Relative time] 2.53 {INR} Normal [facility] Comment on above: Performed By: #### B EYEWEAR MANUFACTURING TECH, CMP, TSH, LIPID #### [facility] [address] [address] [address] Reji Thomas INR GUIDELINES SEE BELOW Normal [facility] Comment on above: Result Comment: SHY RED INR: 2.0 - 3.0 CONDITIONS NOT LISTED BELOW 2.5 - 3.5 FOR PROSTHETIC HEART VALVE REPLACEMENT 2.5 - 3.5 RECURRENT THROMBOSIS Performed By: #### B EYEWEAR MANUFACTURING TECH, CMP, TSH, LIPID #### [facility] [address] [address] [address] Reji Thomas PT Coag (PPP) [Time] 25.7 s Critically high 9.0-11.6 [facility] Comment on above: Performed By: #### B EYEWEAR MANUFACTURING TECH, CMP, TSH, LIPID #### [facility] [address] [address] [address] Reji Thomas ECHOCARDIO M/2D COMPLETEon 0 05-04-2022 ECHOCARDIO M/2D COMPLETE Patient: INEZ JUAREZ Exam Date: 05/04/2022 : 1940 Gender:F Ordering : DR JENN PRADO M.D. Admission #: [id number] Family : Order #: [id number] CLICK HERE TO VIEW EXAM ECHOCARDIOGRAM REPORT [...] Area(A4C): 27.20 cm2 Left Atrium Systolic Volume(A2C): 631020 mm3 Left Atrium Systolic Volume(A4C): 17804 mm3 Mitral Valve MV E to A Ratio: 2.60 Deceleration [place]: 47269 mm/s2 Mitral Valve A-Wave Peak Velocity: 58.60 [...] Prado M.D. on 05/07/2022 at 11:39 Normal [facility] EVAN by IFAon 04-19-2022 Antinuclear Antibodies, IFA Positive Abnormal [facility] Comment on above: Result Comment: Nega tive <1:80 Borderline 1:80 Positive >1:80 Performed By: #### B EYEWEAR MANUFACTURING TECH, CMP, TSH, LIPID #### [facility] [address] [address] [address] Reji Thomas Centriole Pattern Normal [facility] Comment on above: Performed By: #### B EYEWEAR MANUFACTURING TECH, CMP, TSH, LIPID #### [facility] [address] [address] [address] Reji Thomas Centromere Pattern Normal [facility] Comment on above: Performed By: #### B EYEWEAR MANUFACTURING TECH, CMP, TSH, LIPID #### [facility] [address] [address] [address] Reji Thomas Homogeneous Pattern 1:320 Critically high [facility] Comment on above: Result Comment: ICAP nomenclature: AC-1 Performed By: #### B EYEWEAR MANUFACTURING TECH, CMP, TSH, LIPID #### [facility] [address] [address] [address] Reji Thomas Midbody Pattern Normal [facility] Comment on above: Performed By: #### B EYEWEAR MANUFACTURING TECH, CMP, TSH, LIPID #### [facility] [address] [address] [address] Reji Thomas Note: Comment Normal [facility] Comment on above: Result Comment: [...] titers Nucleosomes, Histones Drug-induced SLE Speckled Sm, BOX BLANK MACHINE FEEDER, SCL-70, SLE,MCTD,PSS (diffuse form), SS-A/SS-B Sjogrens Nucleolar SCL-70, PM-1/SCL High titers Scleroderma, PM/DM Centromere Centromere PSS (limited form) w/Crest syndrome variable Nuclear Dot [id number] Primary Biliary Cirrhosis Nuclear GP210, Primary Biliary Cirrhosis Membrane eleonora A,B,C Performed By: #### B EYEWEAR MANUFACTURING TECH, CMP, TSH, LIPID #### [facility] [address] [address] [address] Reji Thomas Nuclear Dot Pattern Normal [facility] Comment on above: Performed By: #### B EYEWEAR MANUFACTURING TECH, CMP, TSH, LIPID #### [facility] [address] [address] [address] Reji Thomas Nuclear Membrane Pattern Normal [facility] Comment on above: Performed By: #### B EYEWEAR MANUFACTURING TECH, CMP, TSH, LIPID #### [facility] [address] [address] [address] Reji Thomas Nucleolar Pattern Normal [facility] Comment on above: Performed By: #### B EYEWEAR MANUFACTURING TECH, CMP, TSH, LIPID #### [facility] [address] [address] [address] Reji Thomas PCNA Pattern Normal [facility] Comment on above: Performed By: #### B EYEWEAR MANUFACTURING TECH, CMP, TSH, LIPID #### [facility] [address] [address] [address] Reji Thomas Speckled Pattern Normal [facility] Comment on above: Performed By: #### B EYEWEAR MANUFACTURING TECH, CMP, TSH, LIPID #### [facility] [address] [address] [address] Reji Thomas Spindle Apparatus Pattern Normal [facility] Comment on above: Performed By: #### B EYEWEAR MANUFACTURING TECH, CMP, TSH, LIPID #### [facility] [address] [address] [address] Reji Thomas ANCA (ANTINEUTROPHIL CYTOPLA MSMIC ABon 04-18-2022 Atypical pANCA <1:20 Normal Neg:<1:20 [facility] Comment on above: Result Comment: Seru m is slightly hemolyzed The atypical pANCA pattern has been observed in a significant percentage of patients with ulcerative colitis, primary sclerosing cholangitis and autoimmune hepatitis. Performed By: #### B MP #### [facility] [address] [address] [address] Reji Thomas Cytoplasmic (C-ANCA) <1:20 Normal Neg:<1:20 [facility] Comment on above: Result Comment: Seru m is slightly hemolyzed Performed By: #### B MP #### [facility] [address] [address] [address] Reji Thomas Perinuclear (P-ANCA) <1:20 Normal Neg:<1:20 [facility] Comment on above: Result Comment: [...] 1999;111:507-513. Performed By: #### B MP #### [facility] [address] [place] [address] Dr. Reji Thomas ANTISCLERODERMA ABon 022 Antiscleroderma-70 Antibodies 0.3 AI Normal 0.0-0.9 [facility] Comment on above: Performed By: #### B EYEWEAR MANUFACTURING TECH, CMP, TSH, LIPID #### [facility] [address] [place] [address] Dr. Reji Thomas T3 UPTAKEon 04-18-2022 Free Thyroxine Index 1.8 Normal 1.2-4.9 [facility] Comment on above: Performed By: #### B [employer] MANU[employer]URING TECH, CMP, TSH, LIPID #### [facility] [address] [place] [address] Dr. Reji Thomas T3 Uptake 23 % Critically low 24-39 [facility] Comment on above: Performed By: #### B [employer]UFA[employer]URING TECH, CMP, TSH, LIPID #### [facility] [address] [address] [address] Reji Thomas T4 LABCORPon 04-18-2022 T4 [Mass/Vol] 7.8 ug/dL Normal 4.5-12.0 [facility] Comment on above: Performed By: #### B [employer] MANU[employer]URING TECH, CMP, TSH, LIPID #### [facility] [address] [place] [address] Dr. Reji Thomas BNPon 04-16-2022 Natriuretic peptide B (Bld) [Mass/Vol] 2870.0 pg/mL Critically high <=1,800.0 [facility] Comment on above: Result Comment: repe ated Performed By: #### B [employer]UFA[employer]URING TECH, CMP, TSH, LIPID #### [facility] [address] [place] [address] Dr. Reji Thomas CBC AUTO DIFFon 04-16-2022 BASO # 0.1 103/ul Normal 0.0-0.1 [facility] Comment on above: Performed By: #### B [employer] MANUFA[employer]URING TECH, CMP, TSH, LIPID #### [facility] [address] [place] [address] Dr. Reji Thomas Basophils/100 WBC (Bld) 0.9 % Normal 0.2-2.0 [facility] Comment on above: Performed By: #### B [employer] MANUFA[employer]URING TECH, CMP, TSH, LIPID #### [facility] [address] [place] [address] Dr. Reji Thomas EO # 0.3 103/ul Normal 0.0-0.7 [facility] Comment on above: Performed By: #### B [employer] MANUFACTURING TECH, CMP, TSH, LIPID #### [facility] [address] [place] [address] Dr. Reji Thomas Eosinophils/100 WBC (Bld) 3.9 % Normal 0.9-7.0 [facility] Comment on above: Performed By: #### B [employer]YE[employer] MANUFACTURING TECH, CMP, TSH, LIPID #### [facility] [address] [place] [address] Dr. Reji Thomas Erythrocyte distribution width (RBC) [Ratio] 15.9 % Critically high 11.0-15.0 [facility] Comment on above: Performed By: #### B [employer] MANUFACTURING TECH, CMP, TSH, LIPID #### [facility] [address] [address] [address] Reji Thomas Hematocrit (Bld) [Volume fraction] 38.1 % Normal 36.0-48.0 [facility] Comment on above: Performed By: #### B [employer] MANUFACTURING TECH, CMP, TSH, LIPID #### [facility] [address] [address] [address] Reji Thomas Hemoglobin (Bld) [Mass/Vol] 12.1 g/dL Normal 12.0-16.0 [facility] Comment on above: Performed By: #### B [employer] MANUFACTURING TECH, CMP, TSH, LIPID #### [facility] [address] [place] [address] Dr. Reji Thomas IG # 0.02 10e3/ul Normal 0.00-0.03 [facility] Comment on above: Performed By: #### B [employer] MANUFACTURING TECH, CMP, TSH, LIPID #### [facility] [address] [place] [address] Dr. Reji Thomas IG % 0.3 % Normal 0.0-0.5 [facility] Comment on above: Performed By: #### B [employer] MANUFACTURING TECH, CMP, TSH, LIPID #### [facility] [address] [address] [address] Reji Thomas LYMPH # 1.6 103/ul Normal 1.2-3.8 [facility] Comment on above: Performed By: #### B [employer] MANUFACTURING TECH, CMP, TSH, LIPID #### [facility] [address] [address] [address] Reji Thomas Lymphocytes/100 WBC (Bld) 22.6 % Normal 20.5-60.0 [facility] Comment on above: Performed By: #### B [employer] MANUFACTURING TECH, CMP, TSH, LIPID #### [facility] [address] [address] [address] Reji Thomas MANUAL DIFF REQ NO Normal [facility] Comment on above: Performed By: #### B EYEWEAR MANUFACTURING TECH, CMP, TSH, LIPID #### [facility] [address] [place] [address] Dr. Reji Thomas MCH (RBC) [Entitic mass] 26.5 pg Critically low 26.7-34.0 [facility] Comment on above: Performed By: #### B E[employer] MANUFACTURING TECH, CMP, TSH, LIPID #### [facility] [address] [place] [address] Dr. Reji Thomas MCHC (RBC) [Mass/Vol] 31.8 g/dL Normal 29.9-35.2 [facility] Comment on above: Performed By: #### B EYE[employer] MANUFACTURING TECH, CMP, TSH, LIPID #### [facility] [address] [place] [address] Dr. Reji Thomas MCV (RBC) [Entitic vol] 83.4 fL Normal 81.0-99.0 [facility] Comment on above: Performed By: #### B [employer]YE[employer] MANUFACTURING TECH, CMP, TSH, LIPID #### [facility] [address] [place] [address] Dr. Reji Thomas MONO # 0.6 103/ul Normal 0.3-0.8 [facility] Comment on above: Performed By: #### B [employer]YE[employer] MANUFACTURING TECH, CMP, TSH, LIPID #### [facility] [address] [place] [address] Dr. Reji Thomas Monocytes/100 WBC (Bld) 9.3 % Normal 1.7-12.0 [facility] Comment on above: Performed By: #### B EYEWEAR MANUFACTURING TECH, CMP, TSH, LIPID #### [facility] [address] [place] [address] Dr. Reji Thomas NEUT # 4.3 103/ul Normal 1.4-6.5 [facility] Comment on above: Performed By: #### B E[employer] MANUFACTURING TECH, CMP, TSH, LIPID #### [facility] [address] [place] [address] Dr. Reji Thomas Neutrophils/100 WBC (Bld) 63.0 % Normal 43.0-75.0 [facility] Comment on above: Performed By: #### B [employer]AR MANUFACTURING TECH, CMP, TSH, LIPID #### [facility] [address] [place] [address] Dr. Reji Thomas Platelet mean volume (Bld) [Entitic vol] 9.2 fL Critically low 9.5-13.5 [facility] Comment on above: Performed By: #### B EYE[employer] MANUFACTURING TECH, CMP, TSH, LIPID #### [facility] [address] [address] [address] Reji Thomas PLT 211 103/ul Normal 150-450 [facility] Comment on above: Performed By: #### B EYE[employer] MANUFACTURING TECH, CMP, TSH, LIPID #### [facility] [address] [address] [address] Reji Thomas RBC 4.57 106/ul Normal 4.20-5.40 [facility] Comment on above: Performed By: #### B EYEWEAR MANUFACTURING TECH, CMP, TSH, LIPID #### [facility] [address] [place] [address] Dr. Reji Thomas WBC 6.9 103/ul Normal 4.0-11.0 [facility] Comment on above: Performed By: #### B EYEWEAR MANUFACTURING TECH, CMP, TSH, LIPID #### [facility] [address] [place] [address] Dr. Reji Thomas GLYCOHEMOGLOBIN A1Con 2021 ADA RECOMMENDATION SEE BELOW Normal [facility] Comment on above: Result Comment: ADA RECOMMENDED LIMIT 4.0 - 6.0 ADA THERAPEUTIC TARGET < 7.0 ACTION SUGGESTED > 7.0 Performed By: #### B EYEWEAR MANUFACTURING TECH, CMP, TSH, LIPID #### [facility] [address] [place] [address] Dr. Reji Thomas Glucose [Mass/Vol] 100 mg/dL Normal [facility] Comment on above: Performed By: #### B EYEWEAR MANUFACTURING TECH, CMP, TSH, LIPID #### [facility] [address] [place] [address] Dr. Reji Thomas HbA1c (Bld) [Mass fraction] 5.1 % Normal 4.5-6.2 [facility] Comment on above: Performed By: #### B EYEWEAR MANUFACTURING TECH, CMP, TSH, LIPID #### [facility] [address] [place] [address] Dr. Reji Thomas IRONon 04-16-2022 Iron [Mass/Vol] 42.0 ug/dL Critically low 50.0-170.0 [facility] Comment on above: Performed By: #### B EYEWEAR MANUFACTURING TECH, CMP, TSH, LIPID #### [facility] [address] [address] [address] Reji Thomas LIPID PROFILEon 04-16-2022 CHOL-HDL RATIO NORM SEE BELOW Normal [facility] Comment on above: Result Comment: 3.3 - 4.4 LOW RISK 4.4 - 7.1 AVERAGE RISK 7.1 - 11.0 MODERATE RISK >11.0 HIGH RISK Performed By: #### B EYEWEAR MANUFACTURING TECH, CMP, TSH, LIPID #### [facility] [address] [address] [address] Reji Thomas Cholesterol [Mass/Vol] 176 mg/dL Normal <=200 [facility] Comment on above: Performed By: #### B [employer]YE[employer] MANUFACTURING TECH, CMP, TSH, LIPID #### [facility] [address] [address] [address] Reji Thomas Cholesterol in HDL [Mass/Vol] 52 mg/dL Normal 40-60 [facility] Comment on above: Performed By: #### B EYEWEAR MANUFACTURING TECH, CMP, TSH, LIPID #### [facility] [address] [address] [address] Reji Thomas Cholesterol in LDL [Mass/Vol] 102.8 mg/dL Normal [facility] Comment on above: Performed By: #### B EYEWEAR MANUFACTURING TECH, CMP, TSH, LIPID #### [facility] [address] [address] [address] Reji Thomas Cholesterol.total/Ch olesterol in HDL [Mass ratio] 3.4 {ratio} Normal [facility] Comment on above: Performed By: #### B EYEWEAR MANUFACTURING TECH, CMP, TSH, LIPID #### [facility] [address] [place] [address] Dr. Reji Thomas HDL NORMAL > or = 60 mg/dl - LOW CARDIOVASCULAR RISK <40 mg/dl - HIGH CARDIOVASCULAR RISK Normal [facility] Comment on above: Performed By: #### B EYEWEAR MANUFACTURING TECH, CMP, TSH, LIPID #### [facility] [address] [place] [address] Dr. Reji Thomas LDL CALC NORMAL SEE BELOW Normal [facility] Comment on above: Result Comment: <100 mg/dl OPTIMAL 100 - 129 mg/dl NEAR OR ABOVE OPTIMAL 130 - 159 mg/dl BORDERLINE HIGH 160 - 189 mg/dl HIGH >190 mg/dl VERY HIGH Performed By: #### B EYEWEAR MANUFACTURING TECH, CMP, TSH, LIPID #### [facility] [address] [place] [address] Dr. Reji Thomas Triglyceride [Mass/Vol] 106 mg/dL Normal <=150 [facility] Comment on above: Performed By: #### B EYEWEAR MANUFACTURING TECH, CMP, TSH, LIPID #### [facility] [address] [place] [address] Dr. Reji Thomsa VLDL CALC 21.2 mg/dL Normal [facility] Comment on above: Performed By: #### B EYEWEAR MANUFACTURING TECH, CMP, TSH, LIPID #### [facility] [address] [place] [address] Dr. Reji Thomas PROF 14(COMP METB)on 022 Albumin [Mass/Vol] 3.6 g/dL Normal 3.4-5.0 [facility] Comment on above: Performed By: #### B EYEWEAR MANUFACTURING TECH, CMP, TSH, LIPID #### [facility] [address] [place] [address] Dr. Reji Thomas Albumin/Globulin [Mass ratio] 0.9 {ratio} Normal [facility] Comment on above: Performed By: #### B EYEWEAR MANUFACTURING TECH, CMP, TSH, LIPID #### [facility] [address] [place] [address] Dr. Reji Thomas ALP [Catalytic activity/Vol] 62 U/L Normal 46-116 [facility] Comment on above: Performed By: #### B EYEWEAR MANUFACTURING TECH, CMP, TSH, LIPID #### [facility] [address] [place] [address] Dr. Reji Thomas ALT [Catalytic activity/Vol] 14 U/L Normal 14-59 [facility] Comment on above: Performed By: #### B EYEWEAR MANUFACTURING TECH, CMP, TSH, LIPID #### [facility] [address] [place] [address] Dr. Reij Thomas Anion gap [Moles/Vol] 14.5 mmol/L Normal [facility] Comment on above: Performed By: #### B EYEWEAR MANUFACTURING TECH, CMP, TSH, LIPID #### [facility] [address] [address] [address] Reji Thomas AST [Catalytic activity/Vol] 17 U/L Normal 15-37 [facility] Comment on above: Performed By: #### B EYEWEAR MANUFACTURING TECH, CMP, TSH, LIPID #### [facility] [address] [address] [address] Reji Thomas Bilirubin [Mass/Vol] 0.6 mg/dL Normal 0.2-1.0 [facility] Comment on above: Performed By: #### B EYEWEAR MANUFACTURING TECH, CMP, TSH, LIPID #### [facility] [address] [address] [address] Reji Thomas Calcium [Mass/Vol] 8.8 mg/dL Normal 8.5-10.1 [facility] Comment on above: Performed By: #### B EYEWEAR MANUFACTURING TECH, CMP, TSH, LIPID #### [facility] [address] [address] [address] Reji Thomas Chloride [Moles/Vol] 102 mmol/L Normal 98-107 [facility] Comment on above: Performed By: #### B EYEWEAR MANUFACTURING TECH, CMP, TSH, LIPID #### [facility] [address] [address] [address] Reji Thomas CO2 [Moles/Vol] 26.3 mmol/L Normal 21.0-32.0 [facility] Comment on above: Performed By: #### B EYEWEAR MANUFACTURING TECH, CMP, TSH, LIPID #### [facility] [address] [address] [address] Reji Thomas Creatinine [Mass/Vol] 1.76 mg/dL Critically high 0.55-1.02 [facility] Comment on above: Performed By: #### B EYEWEAR MANUFACTURING TECH, CMP, TSH, LIPID #### [facility] [address] [address] [address] Reji Thomas EGFR-AF PRYDEINIG 33 mL/min/1.73m2 Critically low >=60 [facility] Comment on above: Performed By: #### B EYEWEAR MANUFACTURING TECH, CMP, TSH, LIPID #### [facility] [address] [address] [address] Reji Thomas EGFR-NON AF PRYDEINIG 28 mL/min/1.73m2 Critically low >=60 [facility] Comment on above: Performed By: #### B EYEWEAR MANUFACTURING TECH, CMP, TSH, LIPID #### [facility] [address] [address] [address] Reji Thomas Globulin (S) [Mass/Vol] 4.2 g/dL Normal [facility] Comment on above: Performed By: #### B EYEWEAR MANUFACTURING TECH, CMP, TSH, LIPID #### [facility] [address] [address] [address] Reji Thomas Glucose [Mass/Vol] 81 mg/dL Normal 74-106 [facility] Comment on above: Performed By: #### B EYEWEAR MANUFACTURING TECH, CMP, TSH, LIPID #### [facility] [address] [place] [address] Dr. Reji Thomas Potassium [Moles/Vol] 3.8 mmol/L Normal 3.5-5.1 [facility] Comment on above: Performed By: #### B EYEWEAR MANUFACTURING TECH, CMP, TSH, LIPID #### [facility] [address] [place] [address] Dr. Reji Thomas Protein [Mass/Vol] 7.8 g/dL Normal 6.4-8.2 [facility] Comment on above: Performed By: #### B EYEWEAR MANUFACTURING TECH, CMP, TSH, LIPID #### [facility] [address] [place] [address] Dr. Reji Thomas Sodium [Moles/Vol] 139 mmol/L Normal 136-145 [facility] Comment on above: Performed By: #### B EYEWEAR MANUFACTURING TECH, CMP, TSH, LIPID #### [facility] [address] [place] [address] Dr. Reji Thomas Urea nitrogen [Mass/Vol] 27.0 mg/dL Critically high 7.0-18.0 [facility] Comment on above: Performed By: #### B EYEWEAR MANUFACTURING TECH, CMP, TSH, LIPID #### [facility] [address] [place] [address] Dr. Reji Thomas Urea nitrogen/Creatinine [Mass ratio] 15.3 mg/mg Normal [facility] Comment on above: Performed By: #### B EYEWEAR MANUFACTURING TECH, CMP, TSH, LIPID #### [facility] [address] [place] [address] Dr. Reji Thomas PROTIMEon 04-16-2022 INR Coag (PPP) [Relative time] 1.92 {INR} Normal [facility] Comment on above: Performed By: #### B EYEWEAR MANUFACTURING TECH, CMP, TSH, LIPID #### [facility] [address] [place] [address] Dr. Reji Thomas INR GUIDELINES SEE BELOW Normal [facility] Comment on above: Result Comment: SHY RED INR: 2.0 - 3.0 CONDITIONS NOT LISTED BELOW 2.5 - 3.5 FOR PROSTHETIC HEART VALVE REPLACEMENT 2.5 - 3.5 RECURRENT THROMBOSIS Performed By: #### B EYEWEAR MANUFACTURING TECH, CMP, TSH, LIPID #### [facility] [address] [place] [address] Dr. Reji Thomas PT Coag (PPP) [Time] 19.9 s Critically high 9.0-11.6 [facility] Comment on above: Performed By: #### B EYEWEAR MANUFACTURING TECH, CMP, TSH, LIPID #### [facility] [address] [place] [address] Dr. Reji Thomas [facility] SED RATE 37 mm/hr Critically high <=30 [facility] Comment on above: Performed By: #### B EYEWEAR MANUFACTURING TECH, CMP, TSH, LIPID #### [facility] [address] [place] [address] Dr. Reji Thomas TSHon 04-16-2022 TSH 1.941 uIU/mL Normal 0.358-3.740 [facility] Comment on above: Performed By: #### B EYEWEAR MANUFACTURING TECH, CMP, TSH, LIPID #### [facility] [address] [place] [address] Dr. Reji Thomas TSH RANGE SEE BELOW Normal [facility] Comment on above: Result Comment: <0.3 4 UIU/ml HYPERTHYROID 0.34-5.60 UIU/ml EUTHYROID >5.60 UIU/ml HYPOTHYROID Performed By: #### B EYEWEAR MANUFACTURING TECH, CMP, TSH, LIPID #### [facility] [address] [place] [address] Dr. Reji Thomas VITAMIN D 25 OHon 04-16-2022 VIT D 25-OH 56.6 ng/mL Normal [facility] Comment on above: Performed By: #### B EYEWEAR MANUFACTURING TECH, CMP, TSH, LIPID #### [facility] [address] [place], [place] [address] Dr. Reji Thomas VIT D RANGES SEE BELOW Normal [facility] Comment on above: Result Comment: <20 ng/mL Vit D deficient 20 - <30 ng/mL Vit D insufficient 30 - 100 ng/mL Vit D sufficient >100 ng/mL Potential Toxicity Performed By: #### B EYEWEAR MANUFACTURING TECH, CMP, TSH, LIPID #### [facility] [address] [address] [address] Reji Thomas Cardiovascular Lab Reporton 11-02-2021 Cardiovascular Lab Report [facility] Patient Name: Inez Juarez MR #: [id number] [facility] Physician: Jenn Prado M.D. Department of Service Date: 11/01/2021 Medicine Birthdate: 1940 Division of Room #: Cardiology Adult Cardiovascular Services [place] [address] Cardiovascular Laboratory Report INDICATION: The patient is [...] She signed consent. She was brought to manufacturing laborer in a fasting state. The right neck area was prepped and draped in usual fashion. Micropuncture technique and ultrasound guidance were used for access in the right internal jugular vein. A 6-Argentine x 11 cm sheath was placed. A 6-Argentine Hernández catheter was used for heart catheterization [...] Prado M.D. Date Trans: 11/01/2021 11:22 P/alondra [id number] cc: Bruce Rizvi M.D. [address] [address] Normal [facility] Cardiovascular Lab Reporton 06-02-2021 Cardiovascular Lab Report [facility] Patient Name: Inez Juarez MR #: [id number] [facility] Physician: Jenn Prado M.D. Department of Service Date: 06/02/2021 Medicine Birthdate: 1940 Division of Room #: CC Cardiology Adult Cardiovascular Services [place] [address] Cardiovascular Laboratory Report INDICATION: The patient is [...] the informed consent. She was brought to manufacturing laborer in a fasting state. The right neck area was prepped and draped in usual fashion. Using micropuncture technique and ultrasound guidance, the right internal jugular vein was accessed and a 6-Argentine x 11 cm sheath was placed. A 6-Argentine Hernández catheter was used for heart catheterization [...] Prado M.D. Date Trans: 06/02/2021 02:42 P/mmo [id number] cc: Bruce Rizvi M.D. [address], [place] [address] [facility] Encounters Encounter Date Encounter Type Care Provider Facility Start: 06-28-2025 End: 06-28-2025 ambulatory [facility] Start: 07-03-2024 End: 07-03-2024 ambulatory [facility] Start: 03-22-2023 End: 03-23-[address] [...] Start: 11-01-2021 End: 11-02-2021 ambulatory PROVIDER UNKNOWN Facility:[facility] Start: 06-02-2021 End: 06-03-2021 ambulatory PROVIDER UNKNOWN Facility:[facility] Payers Date Payer Category Payer Medicare [id number] 1961 Medicare [id number] 1961 Medicare [id number] 1961 Self-pay [id number] 1940 Unknown [id number] 2.16.8 [id number] 1940 Unknown [id number] 2.16.8 40.1.952011.3.579.2.647 1940 Unknown [id number] 2.16.84 0.1.295403.3.579.2.593 1940 Unknown [id number] 2.16.84 0.1.470438.3.579.2.593 1938 Unknown [id number] 2.16.84 0.1.500479.3.579.2.593 1938 Unknown [id number] 2.16.84 0.1.757866.3.579.2.593 1938 Unknown [id number] 2.16.84 0.1.231500.3.579.2.593 1938 Unknown [id number] 2.16.84 0.1.169663.3.579.2.593 1938 Unknown [id number] 2.16.84 0.1.163824.3.579.2.59 1938 Unknown [id number] 2.16.84 0.1.179086.3.579.2.593 1938 Unknown [id number] 2.16.84 0.1.977211.3.579.2.593 1938 Unknown [id number] 2.16.84 0.1.918113.3.579.2.593 1938 Unknown [id number] 2.16.84 0.1.697387.3.579.2.593 1938 Unknown [id number] 2.16.84 0.1.520066.3.579.2.593 1938 Unknown [id number] 2.16.84 0.1.851184.3.579.2.593 1938 Unknown [id number] 2.16.84 0.1.142394.3.579.2.593 1938 Unknown [id number] 2.16.84 0.1.084010.3.579.2.593 1938 Unknown [id number] 2.16.84 0.1.475766.3.579.2.593 1938 Unknown [id number] 2.16.84 0.1.212840.3.579.2.593 1938 Unknown [id number] 2.16.84 0.1.860572.3.579.2.593 1938 Unknown [id number] 2.16.84 0.1.392408.3.579.2.593 Private Health Insurance [id number] [id number] Progress note 06-28-2025 Note Date & Type Note Facility 06-28-2025 Note [place] [facility] Petrona Juarez is a 85 y.o. [...] Musculoskeletal: Positive for (more content not included)... [facility] Progress note 07-03-2024 Note Date & Type Note Facility 07-03-2024 Note [place] [facility] - [facility] Subjective [...] Pulse 50 Ht (more content not included)... [facility] Summary Purpose Family History No Family History Records FoundNo Family History Records FoundNo Family History Records FoundNo Family History Records Found Advance Directives No Advanced Directives Records FoundNo Advanced Directives Records FoundNo Advanced Directives Records FoundNo Advanced Directives Records Found Additional Source Comments INFORMATION SOURCE (unrecogn ized section and content) DATE CREATED AUTHOR 11/03/2021 [facility] DATE CREATED AUTHOR AUTHOR'S ORGANIZ ATION 07/05/2022 [facility] DATE CREATED AUTHOR AUTHOR'S ORGANIZ ATION 03/23/2023 [facility] DATE CREATED AUTHOR AUTHOR'S ORGANIZ ATION 06/29/2025 [facility] FOR RECORDS PERTAINING TO PATIENTS WHO ARE [...] BE BASED ON THE PRIMARY CLINICAL RECORDS. [facility] [employer] provides no warranty or guarantee of the accuracy or completeness of information in this document.
[2025-08-05 13:22] LABS: Hematocrit 32.7 % (36.0-48.0); Hemoglobin 10.3 g/dL (12.0-16.0); Immature Granulocytes Abs Auto 0.01 10^3/uL (0.00-0.03); Immature Granulocytes Pct Auto 0.2 % (0.0-0.5); Lymphocytes Absolute Auto 1.1 10^3/uL (1.2-3.8); Mean Corpuscular HGB Conc 31.5 g/dL (29.9-35.2); Mean Corpuscular Hemoglobin 27.5 pg (26.7-34.0); Mean Corpuscular Volume 87.2 fL (81.0-99.0); Platelet Count 186 10^3/uL (150-450); Red Blood Count 3.75 10^6/uL (4.20-5.40); White Blood Count 5.3 10^3/uL (4.0-11.0)
== END 2025-08-05 12:58 | disposition home or self-care (01) ==
LOC: LAB 13:01
PROVIDERS: PCP Family Medicine; Visit Provider Internal Medicine Interventional Cardiology
DX: I27.20 Pulmonary hypertension, unspecified (principal)
CPT/HCPCS: 36415; 85025

== ENCOUNTER 2025-08-05 13:03 | Outpatient (OUT) | payer MEDICARE, SELFPAY ==
--- OUTSIDE RECORDS SUMMARY | 2025-08-05 13:08 | XMS_ITS | Encounter Summary ---
Author Organization [facility] Address [address] [place] [address] Care Team Providers Care Roof Truss Machine Tender Name Role Phone Yoel Rizvi MD Primary Care Provider [phone] Reason for Visit * Reason Comments Med Refill Encounter Details Date Type Department Care Team (Late st Contact Info) Description 05/15/2023 Refill [facility] [address] [place] [id number] Mitch Jc MD [address] [facility] [place] [address] Essential hypertension; Edema, unspecified type [...] Description 08/27/2025 1:00 PM EDT Office Visit [facility] Heart at [facility] [address] [place] [address] Mitch Jc MD [address] [facility] [address] documented as of this encounter Visit Diagnoses Diagnosis Essential hypertension Unspecified essential hypertension Edema, unspecified type documented in this encounter Care Teams Roof Truss Machine Tender Relationship Specialty Start Date End Date Yoel Rizvi MD [address] [facility] [place] [address] PCP - General 10/22/22 documented as of this encounter
--- OUTSIDE RECORDS SUMMARY | 2025-08-05 13:08 | XMS_ITS | Encounter Summary ---
Author Organization [facility] Address [address] [place] [address] Care Team Providers Care Production Control Supervisor Name Role Phone Yoel Rizvi MD Primary Care Provider [phone] Encounter Details Date Type Department Care Team (Late st Contact Info) Description 08/04/2025 Telephone [facility] Heart at [facility] [address] [place] [address] Mariola Pascual MA Social History Tobacco Use Types Packs/Day Years [...] PM EDT documented as of this encounter Miscellaneous Notes * Telephone Encounter - Mariola Pascual MA - 08/04/2025 3:01 PM EDT Dolores from Dr. Rizvi's office called regarding the labs this patient had drawn yesterday, ordered by you. Dr. Rizvi is decreasing furosemide to 80mg in the morning and having patient hold afternoon dose of 40mg. He is ordering repeat BMP to be done later this week she said. He also wanted to be aware that patient is not on Entresto. I looked in your office note from last month and it does state patient not taking in the med list. Just wanted to make sure this is all ok with you. Thanks. documented in this encounter Plan of Treatment Upcoming Encounters Date Type Department Care Team (Late st Contact Info) Description 08/27/2025 1:00 PM EDT Office Visit [facility] [address] [place] [id number] Mitch Jc MD [address] [facility] [address] [facility] [place] [address] documented as of this encounter Visit Diagnoses Not on filedocumented in this encounter Care Teams Production Control Supervisor Relationship Specialty Start Date End Date Yoel Rizvi MD [address] [facility] [address] [address] PCP - General 10/22/22 documented as of this encounter
--- OUTSIDE RECORDS SUMMARY | 2025-08-05 13:08 | XMS_ITS | Clinical Summary ---
Author Organization [facility] Address [address] [place] [address] Care Team Providers Care Recreation Therapist Name Role Phone Yoel Rizvi MD Primary Care Provider [phone] Allergies No known active allergies Medications albuterol [...] Encounters Date Type Department Care Team Description 08/04/2025 Telephone [facility] [place] [address] [place] [address] Mariola Pascual MA 08/03/2025 Orders Only [facility] [address] [facility] [place] [address] Ericka Grover MA Longstanding persistent atrial fibrillation (CMS/HCC) (Primary Dx) 07/15/2025 Refill [facility] [address] [facility] [place] [address] Mitch Jc MD Chronic diastolic congestive heart failure (CMS/HCC) 06/29/2025 Orders Only [facility] [address] [facility] [place] [address] Ericka Grover MA Pulmonary hypertension (CMS/HCC) (Primary Dx) 06/28/2025 1:45 PM EDT Office Visit [facility] [address] [facility] [place] [address] Mitch Jc MD Pulmonary hypertension (CMS/HCC) (Primary Dx); Chronic diastolic congestive heart failure (CMS/HCC); Longstanding persistent atrial fibrillation (CMS/HCC); Essential hypertension; Non-rheumatic mitral regurgitation; Nonrheumatic tricuspid valve regurgitation; Chronic kidney disease, stage 4 (severe) (CMS/HCC) 06/10/2025 Orders Only [facility] [address] [facility] [place] [address] Provider, MD Estefany from Last 3 Months [...] 1:00 PM EDT Office Visit [facility] [address] [place] [address] Mitch Jc MD [address] [facility] [place] [address] Health Maintenance Due Date Last Done Comments [...] Months Insurance [employer] MED[employer]ARE Care Teams Recreation Therapist Relationship Specialty Start Date End Date Yoel Rizvi MD [address] [facility] [address] [address] PCP - General 10/22/22
--- OUTSIDE RECORDS SUMMARY | 2025-08-05 13:08 | XMS_ITS | Encounter Summary ---
Author Organization [facility] Address [address] [place] [address] Care Team Providers Care Dairy Department Manager Name Role Phone Yoel Rizvi MD Primary Care Provider [phone] Encounter Details Date Type Department Care Team (Late st Contact Info) Description 08/03/2025 Orders Only [address] [address] Ericka Grover MA Longstanding persistent atrial fibrillation (CMS/HCC) (Primary Dx) Social History Tobacco Use Types Packs/Day Years [...] Description 08/27/2025 1:00 PM EDT Office Visit [facility] [address] [place] [address] Mitch Jc MD [address] [facility] [place] [address] Scheduled Orders Name Type Priority Associated Diagnoses Orde r Schedule CBC and differential Lab Routine Longstanding persistent atrial fibrillation (CMS/HCC) Expected: 08/03/2025 (Approximate), Expires: 08/03/2026 documented as of this encounter Visit Diagnoses Diagnosis Longstanding persistent atrial fibrillation (CMS/HCC)- Primary documented in this encounter Care Teams Dairy Department Manager Relationship Specialty Start Date End Date Yoel Rizvi MD [address] [facility] [place] [address] [address] PCP - General 10/22/22 documented as of this encounter
--- OUTSIDE RECORDS SUMMARY | 2025-08-05 13:12 | XMS_ITS | CCD ---
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; Translations: [OTH [facility] CURRENT [...] Range Facility Office Visiton 06-28-2025 Follow-up visit [id number] Inez Juarez 1940 Date Provider Department Center 06/28/2025 JENN AMANDA Family History Problem Relation Age of Onset Hypertension Mother Coronary artery disease Father Hypertension Father Family Status - Relation Status Age at Mother Father Level of Service:77671 [place] OFFICE/OUTPATIENT ESTABLISHED MOD MDM 30 MIN Normal [facility] Orders Onlyon 06-10-2025 Orders Only [id number] Inez Juarez 1940 Provider Department Center 06/10/2025 [id number], [facility] LAURENCE Acuña Family History Problem Relation Age of Onset Hypertension Mother Coronary artery disease Father Hypertension Father Family Status - Relation Status Age at Mother Father Normal [facility] Office Visiton 07-03-2024 Follow-up visit [id number] Inez Juarez 1940 [facility] Provider Department Center 07/03/2024 JENN AMANDA Family History Problem Relation Age of Onset Hypertension Mother Coronary artery disease Father Hypertension Father Family Status - Relation Status Age at Mother Father Level of Service:39519 [place] OFFICE/OUTPATIENT ESTABLISHED LOW MDM 20 MIN Normal [facility] BNPon 03-22-2023 Natriuretic peptide B (Bld) [Mass/Vol] 1423.0 pg/mL Normal <=1,800.0 [facility] Comment on above: Performed By: #### B MANAGER INVENTORY CONTROL, CMP, TSH, LIPID #### [facility] [address] [place] [address] Dr. Reji Thomas CBC AUTO DIFFon 03-22-2023 BASO # 0.1 103/ul Normal 0.0-0.1 [facility] Comment on above: Performed By: #### B MP #### [facility] [address] [place] [address] Dr. Reji Thomas Basophils/100 WBC (Bld) 1.0 % Normal 0.2-2.0 [facility] Comment on above: Performed By: #### B MP #### [facility] [address] [place] [address] Dr. Reji Thomas EO # 0.2 103/ul Normal 0.0-0.7 [facility] Comment on above: Performed By: #### B MP #### [facility] [address] [place] [address] Dr. Reji Thomas Eosinophils/100 WBC (Bld) 3.3 % Normal 0.9-7.0 [facility] Comment on above: Performed By: #### B MP #### [facility] [address] [place] [address] Dr. Reji Thomas Erythrocyte distribution width (RBC) [Ratio] 15.4 % Critically high 11.0-15.0 [facility] Comment on above: Performed By: #### B MP #### [facility] [address] [place] [address] Dr. Reji Thomas Hematocrit (Bld) [Volume fraction] 35.2 % Critically low 36.0-48.0 [facility] Comment on above: Performed By: #### B MP #### [facility] [address] [place] [address] Dr. Reji Thomas Hemoglobin (Bld) [Mass/Vol] 11.4 g/dL Critically low 12.0-16.0 [facility] Comment on above: Performed By: #### B MP #### [facility] [address] [address] [address] Reji Thomas IG # 0.02 10e3/ul Normal 0.00-0.03 [facility] Comment on above: Performed By: #### B MP #### [facility] [address] [place] [address] Dr. Reji Thomas IG % 0.3 % Normal 0.0-0.5 [facility] Comment on above: Performed By: #### B MP #### [facility] [address] [place] [address] Dr. Reji Thomas LYMPH # 1.4 103/ul Normal 1.2-3.8 [facility] Comment on above: Performed By: #### B MP #### [facility] [address] [place] [address] Dr. Reji Thomas Lymphocytes/100 WBC (Bld) 22.6 % Normal 20.5-60.0 [facility] Comment on above: Performed By: #### B MP #### [facility] [address] [place] [address] Dr. Reji Thomas MANUAL DIFF REQ NO Normal [facility] Comment on above: Performed By: #### B MP #### [facility] [address] [place] [address] Dr. Reji Thomas MCH (RBC) [Entitic mass] 27.0 pg Normal 26.7-34.0 [facility] Comment on above: Performed By: #### B MP #### [facility] [address] [place] [address] Dr. Reji Thomas MCHC (RBC) [Mass/Vol] 32.4 g/dL Normal 29.9-35.2 [facility] Comment on above: Performed By: #### B MP #### [facility] [address] [place] [address] Dr. Reji Thomas MCV (RBC) [Entitic vol] 83.2 fL Normal 81.0-99.0 [facility] Comment on above: Performed By: #### B MP #### [facility] [address] [address] [address] Reji Thomas MONO # 0.5 103/ul Normal 0.3-0.8 [facility] Comment on above: Performed By: #### B MP #### [facility] [address] [place] [address] Dr. Reji Thomas Monocytes/100 WBC (Bld) 8.5 % Normal 1.7-12.0 [facility] Comment on above: Performed By: #### B MP #### [facility] [address] [place] [address] Dr. Reji Thomas NEUT # 4.0 103/ul Normal 1.4-6.5 [facility] Comment on above: Performed By: #### B MP #### [facility] [address] [place] [address] Dr. Reji Thomas Neutrophils/100 WBC (Bld) 64.3 % Normal 43.0-75.0 [facility] Comment on above: Performed By: #### B MP #### [facility] [address] [place] [address] Dr. Reji Thomas Platelet mean volume (Bld) [Entitic vol] 8.9 fL Critically low 9.5-13.5 [facility] Comment on above: Performed By: #### B MP #### [facility] [address] [place] [address] Dr. Reji Thomas PLT 226 103/ul Normal 150-450 [facility] Comment on above: Performed By: #### B MP #### [facility] [address] [place] [address] Dr. Reji Thomas RBC 4.23 106/ul Normal 4.20-5.40 [facility] Comment on above: Performed By: #### B MP #### [facility] [address] [place] [address] Dr. Reji Thomas WBC 6.3 103/ul Normal 4.0-11.0 [facility] Comment on above: Performed By: #### B MP #### [facility] [address] [place] [address] Dr. Reji Thomas FREE THYROXINE INDEX T7on FTI 2.40 Normal 1.30-4.50 [facility] Comment on above: Performed By: #### B MANAGER INVENTORY CONTROL, CMP, TSH, LIPID #### [facility] [address] [address] [address] Reji Thomas T3U 32.0 % Normal 30.0-39.0 [facility] Comment on above: Performed By: #### B MANAGER INVENTORY CONTROL, CMP, TSH, LIPID #### [facility] [address] [address] [address] Reji Thomas T4 [Mass/Vol] 7.50 ug/dL Normal 4.80-13.90 [facility] Comment on above: Performed By: #### B MANAGER INVENTORY CONTROL, CMP, TSH, LIPID #### [facility] [address] [place] [address] Dr. Reji Thoams GLYCOHEMOGLOBIN A1Con 2022 ADA RECOMMENDATION SEE BELOW Normal [facility] Comment on above: Result Comment: ADA RECOMMENDED LIMIT 4.0 - 6.0 ADA THERAPEUTIC TARGET < 7.0 ACTION SUGGESTED > 7.0 Performed By: #### B MANAGER INVENTORY CONTROL, CMP, TSH, LIPID #### [facility] [address] [address] [address] Reji Thomas Glucose [Mass/Vol] 97 mg/dL Normal [facility] Comment on above: Performed By: #### B MANAGER INVENTORY CONTROL, CMP, TSH, LIPID #### [facility] [address] [address] [address] Reji Thomas HbA1c (Bld) [Mass fraction] 5.0 % Normal 4.5-6.2 [facility] Comment on above: Performed By: #### B MANAGER INVENTORY CONTROL, CMP, TSH, LIPID #### [facility] [address] [address] [address] Reji Thomas IRONon 03-22-2023 Iron [Mass/Vol] 47.0 ug/dL Critically low 50.0-170.0 [facility] Comment on above: Performed By: #### B MANAGER INVENTORY CONTROL, CMP, TSH, LIPID #### [facility] [address] [place] [address] Dr. Reji Thomas LIPID PROFILEon 03-22-2023 CHOL-HDL RATIO NORM SEE BELOW Normal [facility] Comment on above: Result Comment: 3.3 - 4.4 LOW RISK 4.4 - 7.1 AVERAGE RISK 7.1 - 11.0 MODERATE RISK >11.0 HIGH RISK Performed By: #### M G, TSH, LIPID, T7, CMP, BNP #### [facility] [address] [address] [address] Reji Thomas Cholesterol [Mass/Vol] 188 mg/dL Normal <=200 [facility] Comment on above: Performed By: #### M G, TSH, LIPID, T7, CMP, BNP #### [facility] [address] [address] [address] Reji Thomas Cholesterol in HDL [Mass/Vol] 53 mg/dL Normal 40-60 [facility] Comment on above: Performed By: #### M G, TSH, LIPID, T7, CMP, BNP #### [facility] [address] [address] [address] Reji Thomas Cholesterol in LDL [Mass/Vol] 111.6 mg/dL Normal [facility] Comment on above: Performed By: #### M G, TSH, LIPID, T7, CMP, BNP #### [facility] [address] [address] [address] Reji Thomas Cholesterol.total/Ch olesterol in HDL [Mass ratio] 3.5 {ratio} Normal [facility] Comment on above: Performed By: #### M G, TSH, LIPID, T7, CMP, BNP #### [facility] [address] [address] [address] Reji Thomas HDL NORMAL > or = 60 mg/dl - LOW CARDIOVASCULAR RISK <40 mg/dl - HIGH CARDIOVASCULAR RISK Normal [facility] Comment on above: Performed By: #### M G, TSH, LIPID, T7, CMP, BNP #### [facility] [address] [address] [address] Reji Thomas LDL CALC NORMAL SEE BELOW Normal [facility] Comment on above: Result Comment: <100 mg/dl OPTIMAL 100 - 129 mg/dl NEAR OR ABOVE OPTIMAL 130 - 159 mg/dl BORDERLINE HIGH 160 - 189 mg/dl HIGH >190 mg/dl VERY HIGH Performed By: #### M G, TSH, LIPID, T7, CMP, BNP #### [facility] [address] [address] [address] Reji Thomas Triglyceride [Mass/Vol] 117 mg/dL Normal <=150 [facility] Comment on above: Performed By: #### M G, TSH, LIPID, T7, CMP, BNP #### [facility] [address] [address] [address] Reji Thomas VLDL CALC 23.4 mg/dL Normal [facility] Comment on above: Performed By: #### M G, TSH, LIPID, T7, CMP, BNP #### [facility] [address] [place] [address] Dr. Reji Thomas MAGNESIUMon 03-22-2023 Magnesium [Mass/Vol] 2.4 mg/dL Normal 1.8-2.4 [facility] Comment on above: Performed By: #### B MANAGER INVENTORY CONTROL, CMP, TSH, LIPID #### [facility] [address] [place] [address] Dr. Reji Thomas PROF 14(COMP METB)on 023 Albumin [Mass/Vol] 3.4 g/dL Normal 3.4-5.0 [facility] Comment on above: Performed By: #### M G, TSH, LIPID, T7, CMP, BNP #### [facility] [address] [address] [address] Reji Thomas Albumin/Globulin [Mass ratio] 0.8 {ratio} Normal [facility] Comment on above: Performed By: #### M G, TSH, LIPID, T7, CMP, BNP #### [facility] [address] [address] [address] Reji Thomas ALP [Catalytic activity/Vol] 61 U/L Normal 46-116 [facility] Comment on above: Performed By: #### M G, TSH, LIPID, T7, CMP, BNP #### [facility] [address] [address] [address] Reji Thomas ALT [Catalytic activity/Vol] 15 U/L Normal 14-59 [facility] Comment on above: Performed By: #### M G, TSH, LIPID, T7, CMP, BNP #### [facility] [address] [place] [address] Dr. Reji Thomas Anion gap [Moles/Vol] 13.1 mmol/L Normal [facility] Comment on above: Performed By: #### M G, TSH, LIPID, T7, CMP, BNP #### [facility] [address] [address] [address] Reji Thomsa AST [Catalytic activity/Vol] 13 U/L Critically low 15-37 [facility] Comment on above: Performed By: #### M G, TSH, LIPID, T7, CMP, BNP #### [facility] [address] [place] [address] Dr. Reji Thomas Bilirubin [Mass/Vol] 0.4 mg/dL Normal 0.2-1.0 [facility] Comment on above: Performed By: #### M G, TSH, LIPID, T7, CMP, BNP #### [facility] [address] [place] [address] Dr. Reji Thomas Calcium [Mass/Vol] 8.5 mg/dL Normal 8.5-10.1 [facility] Comment on above: Performed By: #### M G, TSH, LIPID, T7, CMP, BNP #### [facility] [address] [place] [address] Dr. Reji Thomas Chloride [Moles/Vol] 106 mmol/L Normal 98-107 [facility] Comment on above: Performed By: #### M G, TSH, LIPID, T7, CMP, BNP #### [facility] [address] [place] [address] Dr. Reji Thomas CO2 [Moles/Vol] 27.6 mmol/L Normal 21.0-32.0 [facility] Comment on above: Performed By: #### M G, TSH, LIPID, T7, CMP, BNP #### [facility] [address] [address] [address] Reji Thomas Creatinine [Mass/Vol] 2.32 mg/dL Critically high 0.55-1.02 [facility] Comment on above: Performed By: #### M G, TSH, LIPID, T7, CMP, BNP #### [facility] [address] [place] [address] Dr. Reji Thomas EGFR-AF KENYAN 24 mL/min/1.73m2 Critically low >=60 [facility] Comment on above: Performed By: #### M G, TSH, LIPID, T7, CMP, BNP #### [facility] [address] [address] [address] Reji Thomas EGFR-NON AF KENYAN 20 mL/min/1.73m2 Critically low >=60 [facility] Comment on above: Performed By: #### M G, TSH, LIPID, T7, CMP, BNP #### [facility] [address] [place] [address] Dr. Reji Thomas Globulin (S) [Mass/Vol] 4.3 g/dL Normal [facility] Comment on above: Performed By: #### M G, TSH, LIPID, T7, CMP, BNP #### [facility] [address] [place] [address] Dr. Reji Thomas Glucose [Mass/Vol] 88 mg/dL Normal 74-106 [facility] Comment on above: Performed By: #### M G, TSH, LIPID, T7, CMP, BNP #### [facility] [address] [place] [address] Dr. Reji Thomas Potassium [Moles/Vol] 4.7 mmol/L Normal 3.5-5.1 [facility] Comment on above: Performed By: #### M G, TSH, LIPID, T7, CMP, BNP #### [facility] [address] [place] [address] Dr. Reji Thomas Protein [Mass/Vol] 7.7 g/dL Normal 6.4-8.2 [facility] Comment on above: Performed By: #### M G, TSH, LIPID, T7, CMP, BNP #### [facility] [address] [place] [address] Dr. Reji Thomas Sodium [Moles/Vol] 142 mmol/L Normal 136-145 [facility] Comment on above: Performed By: #### M G, TSH, LIPID, T7, CMP, BNP #### [facility] [address] [place] [address] Dr. Reji Thomas Urea nitrogen [Mass/Vol] 38.0 mg/dL Critically high 7.0-18.0 [facility] Comment on above: Performed By: #### M G, TSH, LIPID, T7, CMP, BNP #### [facility] [address] [place] [address] Dr. Reji Thomas Urea nitrogen/Creatinine [Mass ratio] 16.4 mg/mg Normal [facility] Comment on above: Performed By: #### M G, TSH, LIPID, T7, CMP, BNP #### [facility] [address] [place] [address] Dr. Reji Thomas PROTIMEon 03-22-2023 INR Coag (PPP) [Relative time] 1.98 {INR} Normal [facility] Comment on above: Performed By: #### P T #### [facility] [address] [place] [address] Dr. Reji Thomas INR GUIDELINES SEE BELOW Normal [facility] Comment on above: Result Comment: SHY RED INR: 2.0 - 3.0 CONDITIONS NOT LISTED BELOW 2.5 - 3.5 FOR PROSTHETIC HEART VALVE REPLACEMENT 2.5 - 3.5 RECURRENT THROMBOSIS Performed By: #### P T #### [facility] [address] [place] [address] Dr. Reji Thomas PT Coag (PPP) [Time] 20.2 s Critically high 9.0-11.6 [facility] Comment on above: Performed By: #### P T #### [facility] [address] [place] [address] Dr. Reji Thomas TSHon 03-22-2023 TSH 2.265 uIU/mL Normal 0.358-3.740 [facility] Comment on above: Performed By: #### B MANAGER INVENTORY CONTROL, CMP, TSH, LIPID #### [facility] [address] [place] [address] Dr. Reji Thomas VITAMIN D 25 OHon 03-22-2023 VIT D 25-OH 53.1 ng/mL Normal [facility] Comment on above: Performed By: #### B MP #### [facility] [address] [place] [address] Dr. Reji Thomas VIT D RANGES SEE BELOW Normal [facility] Comment on above: Result Comment: <20 ng/mL Vit D deficient 20 - <30 ng/mL Vit D insufficient 30 - 100 ng/mL Vit D sufficient >100 ng/mL Potential Toxicity Performed By: #### B MP #### [facility] [address] [place] [address] Dr. Reji Thomas PROTIMEon 02-22-2023 INR Coag (PPP) [Relative time] 2.22 {INR} Normal [facility] Comment on above: Performed By: #### B MANAGER INVENTORY CONTROL, CMP, TSH, LIPID #### [facility] [address] [place] [address] Dr. Reji Thomas INR GUIDELINES SEE BELOW Normal [facility] Comment on above: Result Comment: SHY RED INR: 2.0 - 3.0 CONDITIONS NOT LISTED BELOW 2.5 - 3.5 FOR PROSTHETIC HEART VALVE REPLACEMENT 2.5 - 3.5 RECURRENT THROMBOSIS Performed By: #### B MANAGER INVENTORY CONTROL, CMP, TSH, LIPID #### [facility] [address] [place] [address] Dr. Reji Thomas PT Coag (PPP) [Time] 22.5 s Critically high 9.0-11.6 [facility] Comment on above: Performed By: #### B MANAGER INVENTORY CONTROL, CMP, TSH, LIPID #### [facility] [address] [place] [address] Dr. Reji Thomas PROTIMEon 01-03-2023 INR Coag (PPP) [Relative time] 2.53 {INR} Normal [facility] Comment on above: Performed By: #### B MP #### [facility] [address] [place] [address] Dr. Reji Thomas INR GUIDELINES SEE BELOW Normal [facility] Comment on above: Result Comment: SHY RED INR: 2.0 - 3.0 CONDITIONS NOT LISTED BELOW 2.5 - 3.5 FOR PROSTHETIC HEART VALVE REPLACEMENT 2.5 - 3.5 RECURRENT THROMBOSIS Performed By: #### B MP #### [facility] [address] [place] [address] Dr. Reji Thomas PT Coag (PPP) [Time] 25.4 s Critically high 9.0-11.6 [facility] Comment on above: Performed By: #### B MP #### [facility] [address] [place] [address] Dr. Reji Thomas PROTIMEon 11-23-2022 INR Coag (PPP) [Relative time] 1.71 {INR} Normal [facility] Comment on above: Performed By: #### B MANAGER INVENTORY CONTROL, CMP, TSH, LIPID #### [facility] [address] [place] [address] Dr. Reji Thomas INR GUIDELINES SEE BELOW Normal [facility] Comment on above: Result Comment: SHY RED INR: 2.0 - 3.0 CONDITIONS NOT LISTED BELOW 2.5 - 3.5 FOR PROSTHETIC HEART VALVE REPLACEMENT 2.5 - 3.5 RECURRENT THROMBOSIS Performed By: #### B MANAGER INVENTORY CONTROL, CMP, TSH, LIPID #### [facility] [address] [place] [address] Dr. Reji Thomas PT Coag (PPP) [Time] 17.6 s Critically high 9.0-11.6 [facility] Comment on above: Performed By: #### B MANAGER INVENTORY CONTROL, CMP, TSH, LIPID #### [facility] [address] [place] [address] Dr. Reji Thomas PROTIMEon 10-10-2022 INR Coag (PPP) [Relative time] 2.52 {INR} Normal [facility] Comment on above: Performed By: #### B MANAGER INVENTORY CONTROL, CMP, TSH, LIPID #### [facility] [address] [place] [address] Dr. Reji Thomas INR GUIDELINES SEE BELOW Normal [facility] Comment on above: Result Comment: SHY RED INR: 2.0 - 3.0 CONDITIONS NOT LISTED BELOW 2.5 - 3.5 FOR PROSTHETIC HEART VALVE REPLACEMENT 2.5 - 3.5 RECURRENT THROMBOSIS Performed By: #### B MANAGER INVENTORY CONTROL, CMP, TSH, LIPID #### [facility] [address] [place] [address] Dr. Reji Thomas PT Coag (PPP) [Time] 25.6 s Critically high 9.0-11.6 [facility] Comment on above: Performed By: #### B MANAGER INVENTORY CONTROL, CMP, TSH, LIPID #### [facility] [address] [place] [address] Dr. Reji Thomas PROTIMEon 09-05-2022 INR Coag (PPP) [Relative time] 2.03 {INR} Normal [facility] Comment on above: Performed By: #### B MANAGER INVENTORY CONTROL, CMP, TSH, LIPID #### [facility] [address] [place] [address] Dr. Reji Thomas INR GUIDELINES SEE BELOW Normal [facility] Comment on above: Result Comment: SHY RED INR: 2.0 - 3.0 CONDITIONS NOT LISTED BELOW 2.5 - 3.5 FOR PROSTHETIC HEART VALVE REPLACEMENT 2.5 - 3.5 RECURRENT THROMBOSIS Performed By: #### B MANAGER INVENTORY CONTROL, CMP, TSH, LIPID #### [facility] [address] [place] [address] Dr. Reji Thomas PT Coag (PPP) [Time] 20.9 s Critically high 9.0-11.6 [facility] Comment on above: Performed By: #### B MANAGER INVENTORY CONTROL, CMP, TSH, LIPID #### [facility] [address] [place] [address] Dr. Reji Thomas BNPon 08-10-2022 Natriuretic peptide B (Bld) [Mass/Vol] 1162.0 pg/mL Normal <=1,800.0 [facility] Comment on above: Performed By: #### B MP, BNP #### [facility] [address] [place] [address] Dr. Reji Thomas PROF CHEM 8 (BAS METB)on Anion gap [Moles/Vol] 11.3 mmol/L Normal [facility] Comment on above: Performed By: #### B MP, BNP #### [facility] [address] [place] [address] Dr. Reji Thomas Calcium [Mass/Vol] 8.9 mg/dL Normal 8.5-10.1 [facility] Comment on above: Performed By: #### B MP, BNP #### [facility] [address] [place] [address] Dr. Reji Thomas Chloride [Moles/Vol] 103 mmol/L Normal 98-107 [facility] Comment on above: Performed By: #### B MP, BNP #### [facility] [address] [place] [address] Dr. Reji Thomas CO2 [Moles/Vol] 28.2 mmol/L Normal 21.0-32.0 [facility] Comment on above: Performed By: #### B MP, BNP #### [facility] [address] [place] [address] Dr. Reji Thomas Creatinine [Mass/Vol] 2.07 mg/dL Critically high 0.55-1.02 [facility] Comment on above: Performed By: #### B MP, BNP #### [facility] [address] [place] [address] Dr. Reji Thomas EGFR-AF KENYAN 28 mL/min/1.73m2 Critically low >=60 [facility] Comment on above: Performed By: #### B MP, BNP #### [facility] [address] [place] [address] Dr. Reji Thomas EGFR-NON AF KENYAN 23 mL/min/1.73m2 Critically low >=60 [facility] Comment on above: Performed By: #### B MP, BNP #### [facility] [address] [place] [address] Dr. Reji Thomas Glucose [Mass/Vol] 88 mg/dL Normal 74-106 [facility] Comment on above: Performed By: #### B MP, BNP #### [facility] [address] [place] [address] Dr. Reji Thomas Potassium [Moles/Vol] 4.5 mmol/L Normal 3.5-5.1 [facility] Comment on above: Performed By: #### B MP, BNP #### [facility] [address] [place] [address] Dr. Reji Thomas Sodium [Moles/Vol] 138 mmol/L Normal 136-145 [facility] Comment on above: Performed By: #### B MP, BNP #### [facility] [address] [place] [address] Dr. Reji Thomas Urea nitrogen [Mass/Vol] 35.0 mg/dL Critically high 7.0-18.0 [facility] Comment on above: Performed By: #### B MP, BNP #### [facility] [address] [place] [address] Dr. Reji Thomas Urea nitrogen/Creatinine [Mass ratio] 16.9 mg/mg Normal [facility] Comment on above: Performed By: #### B MP, BNP #### [facility] [address] [place] [address] Dr. Reji Thomas PROTIMEon 08-09-2022 INR Coag (PPP) [Relative time] 2.04 {INR} Normal [facility] Comment on above: Performed By: #### B MANAGER INVENTORY CONTROL, CMP, TSH, LIPID #### [facility] [address] [place] [address] Dr. Reji Thomas INR GUIDELINES SEE BELOW Normal [facility] Comment on above: Result Comment: SHY RED INR: 2.0 - 3.0 CONDITIONS NOT LISTED BELOW 2.5 - 3.5 FOR PROSTHETIC HEART VALVE REPLACEMENT 2.5 - 3.5 RECURRENT THROMBOSIS Performed By: #### B MANAGER INVENTORY CONTROL, CMP, TSH, LIPID #### [facility] [address] [place] [address] Dr. Reji Thomas PT Coag (PPP) [Time] 21.0 s Critically high 9.0-11.6 [facility] Comment on above: Performed By: #### B MANAGER INVENTORY CONTROL, CMP, TSH, LIPID #### [facility] [address] [place] [address] Dr. Reji Thomas BNPon 07-09-2022 Natriuretic peptide B (Bld) [Mass/Vol] 2085.0 pg/mL Critically high <=1,800.0 [facility] Comment on above: Result Comment: LEX ACOSTA CALLED TO OFFICE ON 07-10-22 AT 0850 BY AR Performed By: #### B MANAGER INVENTORY CONTROL, CMP, TSH, LIPID #### [facility] [address] [place] [address] Dr. Reji Thomas PROF CHEM 8 (BAS METB)on Anion gap [Moles/Vol] 13.7 mmol/L Normal [facility] Comment on above: Performed By: #### B MANAGER INVENTORY CONTROL, CMP, TSH, LIPID #### [facility] [address] [place] [address] Dr. Reji Thomas Calcium [Mass/Vol] 8.3 mg/dL Critically low 8.5-10.1 [facility] Comment on above: Performed By: #### B MANAGER INVENTORY CONTROL, CMP, TSH, LIPID #### [facility] [address] [place] [address] Dr. Reji Thomas Chloride [Moles/Vol] 104 mmol/L Normal 98-107 [facility] Comment on above: Performed By: #### B MANAGER INVENTORY CONTROL, CMP, TSH, LIPID #### [facility] [address] [place] [address] Dr. Reji Thomas CO2 [Moles/Vol] 26.6 mmol/L Normal 21.0-32.0 [facility] Comment on above: Performed By: #### B MANAGER INVENTORY CONTROL, CMP, TSH, LIPID #### [facility] [address] [place] [address] Dr. Reji Thomas Creatinine [Mass/Vol] 1.98 mg/dL Critically high 0.55-1.02 [facility] Comment on above: Performed By: #### B MANAGER INVENTORY CONTROL, CMP, TSH, LIPID #### [facility] [address] [place] [address] Dr. Reji Thomas EGFR-AF KENYAN 29 mL/min/1.73m2 Critically low >=60 [facility] Comment on above: Performed By: #### B MANAGER INVENTORY CONTROL, CMP, TSH, LIPID #### [facility] [address] [place] [address] Dr. Reji Thomas EGFR-NON AF KENYAN 24 mL/min/1.73m2 Critically low >=60 [facility] Comment on above: Performed By: #### B MANAGER INVENTORY CONTROL, CMP, TSH, LIPID #### [facility] [address] [address] [address] Reji Thomas Glucose [Mass/Vol] 116 mg/dL Critically high 74-106 [facility] Comment on above: Performed By: #### B MANAGER INVENTORY CONTROL, CMP, TSH, LIPID #### [facility] [address] [place] [address] Dr. Reji Thomas Potassium [Moles/Vol] 4.3 mmol/L Normal 3.5-5.1 [facility] Comment on above: Performed By: #### B MANAGER INVENTORY CONTROL, CMP, TSH, LIPID #### [facility] [address] [place] [address] Dr. Reji Thomas Sodium [Moles/Vol] 140 mmol/L Normal 136-145 [facility] Comment on above: Performed By: #### B MANAGER INVENTORY CONTROL, CMP, TSH, LIPID #### [facility] [address] [place] [address] Dr. Reji Thomas Urea nitrogen [Mass/Vol] 35.0 mg/dL Critically high 7.0-18.0 [facility] Comment on above: Performed By: #### B MANAGER INVENTORY CONTROL, CMP, TSH, LIPID #### [facility] [address] [place] [address] Dr. Reji Thomas Urea nitrogen/Creatinine [Mass ratio] 17.7 mg/mg Normal [facility] Comment on above: Performed By: #### B MANAGER INVENTORY CONTROL, CMP, TSH, LIPID #### [facility] [address] [place] [address] Dr. Reji Thomas PROTIMEon 07-09-2022 INR Coag (PPP) [Relative time] 2.99 {INR} Normal [facility] Comment on above: Performed By: #### B MANAGER INVENTORY CONTROL, CMP, TSH, LIPID #### [facility] [address] [place] [address] Dr. Reji Thomas INR GUIDELINES SEE BELOW Normal [facility] Comment on above: Result Comment: SHY RED INR: 2.0 - 3.0 CONDITIONS NOT LISTED BELOW 2.5 - 3.5 FOR PROSTHETIC HEART VALVE REPLACEMENT 2.5 - 3.5 RECURRENT THROMBOSIS Performed By: #### B MANAGER INVENTORY CONTROL, CMP, TSH, LIPID #### [facility] [address] [place], [place] [address] Dr. Reji Thomas PT Coag (PPP) [Time] 30.1 s Critically high 9.0-11.6 [facility] Comment on above: Performed By: #### B MANAGER INVENTORY CONTROL, CMP, TSH, LIPID #### [facility] [address] [address] [address] Reji Thomas US KIDNEYSon 07-06-2022 US [...] SIGRID RICHMOND Date: 2022-07-06 13:31 Normal [facility] EVAN Antinuclear Antibodieson 06-19-2022 Antinuclear Abs, IFA Positive Critically abnormal . [facility] Comment on above: Result Comment: Nega tive <1:80 Borderline 1:80 Positive >1:80 Performed By: #### C UU, ADDONUAPLUS #### [address] #### C3, C4, CH50 #### [facility] , Homogeneous Pattern 1:320 High . [facility] Comment on above: Result Comment: ICAP nomenclature: [id number] Performed By: #### C MIKY CHOW #### [facility] [address] #### C3, C4, CH50 #### [facility] , Note 1 Normal . [facility] Comment on above: Result Comment: [...] titers Nucleosomes, Histones Drug-induced SLE Speckled Sm, CORRUGATOR OPERATOR HELPER, SCL-70, SLE,MCTD,PSS (diffuse form), SS-A/SS-B Sjogrens Nucleolar SCL-70, PM-1/SCL High titers Scleroderma, PM/DM Centromere Centromere PSS (limited form) w/Crest syndrome variable Nuclear Dot [id number] Primary Biliary Cirrhosis Nuclear GP210, Primary Biliary Cirrhosis Membrane eleonora A,B,C Performed at: [facility] [place] [address] Histotechnician: Demarcus Lawton PhD, Phone: [phone] Performed By: #### COURTNEY OGMEZONUAPLUS #### [address] #### C3, C4, CH50 #### [facility] , Anti-RNPon 06-19-2022 Anti-CORRUGATOR OPERATOR HELPER 0.4 Normal 0.0-0.9 [facility] Comment on above: Result Comment: Perf ormed at: [place] [address] Histotechnician: Demarcus Lawton PhD, Phone: [phone] Performed By: #### Krista CHOW, ADDONUAPLUS #### [address] #### C3, C4, CH50 #### [facility] , C-Reactive Proteinon 022 C-Reactive Protein 2.0 mg/dL High 0.0-1.0 [facility] Comment on above: Result Comment: PERF ORMED BY: [place] [address] PATHOLOGIST OPERATIONS LOGISTICS ANALYST RADHA BULLARD M.D. Performed By: #### C UU, ADDONUAPLUS #### [address] #### C3, C4, CH50 #### [facility] , Complement C3on 06-19-2022 Complement C3 167 mg/dL Normal 82-167 [facility] Comment on above: Result Comment: Perf ormed at: [facility] [employer] [id number] Histotechnician: Demarcus Lawton PhD, Phone: [phone] Performed By: #### C UU, ADDONUAPLUS #### [address] #### C3, C4, CH50 #### [facility] , Complement C4on 06-19-2022 Complement C4 37 mg/dL Normal 12-38 [facility] Comment on above: Performed By: #### C UU, ADDONUAPLUS #### [address] #### C3, C4, CH50 #### [facility] , Complement Total (CH50)on Complement Total (CH50) >60 Normal >41 [facility] Comment on above: Result Comment: [...] determine out of range values. Performed at: [facility] [id number] Histotechnician: Demarcus Lawton PhD, Phone: [phone] PERFORMED BY: [place] [address] PATHOLOGIST OPERATIONS LOGISTICS ANALYST RADHA BULLARD M.D. Performed By: #### C UU, ADDONUAPLUS #### [address] #### C3, C4, CH50 #### [facility] , Complete Blood Count Auto Di ffon 06-19-2022 Basophils (Bld) [#/Vol] 0.1 10*3/uL Normal 0.0-0.2 [facility] Comment on above: Performed By: #### H EPATIC, CBC, ESR, CRP, CREAT, CK #### [place] [address] [place] #### RNA POLYMR, ANTI TH TO, EVAN, U3 CORRUGATOR OPERATOR HELPER, ANTIR, PM-SCL ABS #### [facility] , Basophils/100 WBC (Bld) 0.9 % Normal . [facility] Comment on above: Performed By: #### H EPATIC, CBC, ESR, CRP, CREAT, CK #### [place] [address] [place] #### RNA POLYMR, ANTI TH TO, EVAN, U3 CORRUGATOR OPERATOR HELPER, ANTIR, PM-SCL ABS #### [facility] , Eosinophils (Bld) [#/Vol] 0.5 10*3/uL High 0.0-0.45 [facility] Comment on above: Performed By: #### H EPATIC, CBC, ESR, CRP, CREAT, CK #### [place] [address] [place] #### RNA POLYMR, ANTI TH TO, EVAN, U3 CORRUGATOR OPERATOR HELPER, ANTIR, PM-SCL ABS #### [facility] , Eosinophils/100 WBC (Bld) 8.6 % Normal . [facility] Comment on above: Performed By: #### H EPATIC, CBC, ESR, CRP, CREAT, CK #### [address] #### RNA POLYMR, ANTI TH TO, EVAN, U3 CORRUGATOR OPERATOR HELPER, ANTIR, PM-SCL ABS #### [facility] , Erythrocyte distribution width (RBC) [Ratio] 19.6 % High 11.9-15.3 [facility] Comment on above: Performed By: #### H EPATIC, CBC, ESR, CRP, CREAT, CK #### [place] [address] [place] #### RNA POLYMR, ANTI TH TO, EVAN, U3 CORRUGATOR OPERATOR HELPER, ANTIR, PM-SCL ABS #### [facility] , Hematocrit (Bld) [Volume fraction] 33.8 % Low 34.0-46.4 [facility] Comment on above: Performed By: #### H EPATIC, CBC, ESR, CRP, CREAT, CK #### [address] #### RNA POLYMR, ANTI TH TO, EVAN, U3 CORRUGATOR OPERATOR HELPER, ANTIR, PM-SCL ABS #### [facility] , Hemoglobin (Bld) [Mass/Vol] 10.9 g/dL Low 11.8-15.4 [facility] Comment on above: Performed By: #### H EPATIC, CBC, ESR, CRP, CREAT, CK #### [place] [address] [place] #### RNA POLYMR, ANTI TH TO, EVAN, U3 CORRUGATOR OPERATOR HELPER, ANTIR, PM-SCL ABS #### [facility] , Lymphocytes (Bld) [#/Vol] 1.1 10*3/uL Normal 1.00-4.8 [facility] Comment on above: Performed By: #### H EPATIC, CBC, ESR, CRP, CREAT, CK #### [address] #### RNA POLYMR, ANTI TH TO, EVAN, U3 CORRUGATOR OPERATOR HELPER, ANTIR, PM-SCL ABS #### [facility] , Lymphocytes/100 WBC (Bld) 17.8 % Normal . [facility] Comment on above: Performed By: #### H EPATIC, CBC, ESR, CRP, CREAT, CK #### [facility] [address] [place] [address] #### RNA POLYMR, ANTI TH TO, EVAN, U3 CORRUGATOR OPERATOR HELPER, ANTIR, PM-SCL ABS #### [facility] , MCH (RBC) [Entitic mass] 26.4 pg Normal 24.7-34.3 [facility] Comment on above: Performed By: #### H EPATIC, CBC, ESR, CRP, CREAT, CK #### [facility] [address] [place] [address] #### RNA POLYMR, ANTI TH TO, EVAN, U3 CORRUGATOR OPERATOR HELPER, ANTIR, PM-SCL ABS #### [facility] , MCV (RBC) [Entitic vol] 81.8 fL Normal 80-100 [facility] Comment on above: Performed By: #### H EPATIC, CBC, ESR, CRP, CREAT, CK #### [address] #### RNA POLYMR, ANTI TH TO, EVAN, U3 CORRUGATOR OPERATOR HELPER, ANTIR, PM-SCL ABS #### [facility] , Mean Corpuscular HGB Conc 32.3 g/dL Normal 32.0-35.0 [facility] Comment on above: Performed By: #### H EPATIC, CBC, ESR, CRP, CREAT, CK #### [facility] [address] [place] [address] [place] #### RNA POLYMR, ANTI TH TO, EVAN, U3 CORRUGATOR OPERATOR HELPER, ANTIR, PM-SCL ABS #### [facility] , Monocytes (Bld) [#/Vol] 0.4 10*3/uL Normal 0.0-0.8 [facility] Comment on above: Performed By: #### H EPATIC, CBC, ESR, CRP, CREAT, CK #### [place] [address] [place] #### RNA POLYMR, ANTI TH TO, EVAN, U3 CORRUGATOR OPERATOR HELPER, ANTIR, PM-SCL ABS #### [facility] , Monocytes/100 WBC (Bld) 7.4 % Normal . [facility] Comment on above: Performed By: #### H EPATIC, CBC, ESR, CRP, CREAT, CK #### [place] [address] [place] #### RNA POLYMR, ANTI TH TO, EVAN, U3 CORRUGATOR OPERATOR HELPER, ANTIR, PM-SCL ABS #### [facility] , Neutrophils (Bld) [#/Vol] 3.9 10*3/uL Normal 1.8-7.7 [facility] Comment on above: Performed By: #### H EPATIC, CBC, ESR, CRP, CREAT, CK #### [place] [address] [place] #### RNA POLYMR, ANTI TH TO, EVAN, U3 CORRUGATOR OPERATOR HELPER, ANTIR, PM-SCL ABS #### [facility] , Neutrophils/100 WBC (Bld) 65.3 % Normal . [facility] Comment on above: Performed By: #### H EPATIC, CBC, ESR, CRP, CREAT, CK #### [place] [address] [place] #### RNA POLYMR, ANTI TH TO, EVAN, U3 CORRUGATOR OPERATOR HELPER, ANTIR, PM-SCL ABS #### [facility] , Nucleated RBC/100 WBC (Bld) [Ratio] 0.0 % Normal 0-0.5 [facility] Comment on above: Performed By: #### H EPATIC, CBC, ESR, CRP, CREAT, CK #### [place] [address] [place] #### RNA POLYMR, ANTI TH TO, EVAN, U3 CORRUGATOR OPERATOR HELPER, ANTIR, PM-SCL ABS #### [facility] , Platelet mean volume (Bld) [Entitic vol] 7.2 fL Normal 6.3-10.7 [facility] Comment on above: Performed By: #### H EPATIC, CBC, ESR, CRP, CREAT, CK #### [facility] [address] [place] [address] #### RNA POLYMR, ANTI TH TO, EVAN, U3 CORRUGATOR OPERATOR HELPER, ANTIR, PM-SCL ABS #### [facility] , Platelets (Bld) [#/Vol] 237 10*3/uL Normal 150-450 [facility] Comment on above: Performed By: #### H EPATIC, CBC, ESR, CRP, CREAT, CK #### [facility] [address] [place] [address] #### RNA POLYMR, ANTI TH TO, EVAN, U3 CORRUGATOR OPERATOR HELPER, ANTIR, PM-SCL ABS #### [facility] , RBC (Bld) [#/Vol] 4.14 10*6/uL Normal 3.60-5.00 [facility] Comment on above: Performed By: #### H EPATIC, CBC, ESR, CRP, CREAT, CK #### [facility] [address] [place] [address] #### RNA POLYMR, ANTI TH TO, EVAN, U3 CORRUGATOR OPERATOR HELPER, ANTIR, PM-SCL ABS #### [facility] , WBC (Bld) [#/Vol] 6.0 10*3/uL Normal 4.5-11.0 [facility] Comment on above: Performed By: #### H EPATIC, CBC, ESR, CRP, CREAT, CK #### [facility] [address] [place] [address] [place] #### RNA POLYMR, ANTI TH TO, EVAN, U3 CORRUGATOR OPERATOR HELPER, ANTIR, PM-SCL ABS #### [facility] , Creatine Kinaseon 06-19-2022 CK [Catalytic activity/Vol] 38 U/L Normal 22-269 [facility] Comment on above: Result Comment: PERF ORMED BY: [place] [address] PATHOLOGIST OPERATIONS LOGISTICS ANALYST RADHA BULLARD M.D. Performed By: #### H EPATIC, CBC, ESR, CRP, CREAT, CK #### [address] #### RNA POLYMR, ANTI TH TO, EVAN, U3 CORRUGATOR OPERATOR HELPER, ANTIR, PM-SCL ABS #### [facility] , Creatinineon 06-19-2022 Creatinine [Mass/Vol] 2.82 mg/dL High 0.44-1.03 [facility] Comment on above: Performed By: #### H EPATIC, CBC, ESR, CRP, CREAT, CK #### [address] #### RNA POLYMR, ANTI TH TO, EVAN, U3 CORRUGATOR OPERATOR HELPER, ANTIR, PM-SCL ABS #### [facility] , Estimated GFR ( [place] [facility] Comment on above: Result Comment: GFR estimated reference range: According to KDOQI guidelines, <60 ml/min/1.73m2 is sufficient to diagnose a patient with chronic kidney disease. Performed By: #### H EPATIC, CBC, ESR, CRP, CREAT, CK #### [address] #### RNA POLYMR, ANTI TH TO, EVAN, U3 CORRUGATOR OPERATOR HELPER, ANTIR, PM-SCL ABS #### [facility] , Estimated GFR (Non- Am [facility] Comment on above: Performed By: #### H EPATIC, CBC, ESR, CRP, CREAT, CK #### [facility] [address] [place] [address] [place] #### RNA POLYMR, ANTI TH TO, EVAN, U3 CORRUGATOR OPERATOR HELPER, ANTIR, PM-SCL ABS #### [facility] , Dipstick and Microscopicon 0 06-19-2022 Appearance (U) Cloudy Critically abnormal Clear [facility] Comment on above: Order Comment: Name Collection Type:: Clean-Voided Midstream Performed By: #### C UU, ADDONUAPLUS #### [facility] [address] [place] [address] #### C3, C4, CH50 #### [facility] , Bacteria,Urine 1+ High None Seen [facility] Comment on above: Order Comment: Name Collection Type:: Clean-Voided Midstream Performed By: #### C UU, ADDONUAPLUS #### [facility] [address] [place] [address] #### C3, C4, CH50 #### [facility] , Bilirubin,Urine Negative Normal Negative [facility] Comment on above: Order Comment: Name Collection Type:: Clean-Voided Midstream Performed By: #### C UU, ADDONUAPLUS #### [facility] [address] [place] [address] #### C3, C4, CH50 #### [facility] , Color (U) Yellow Normal Yellow [facility] Comment on above: Order Comment: Name Collection Type:: Clean-Voided Midstream Performed By: #### C UU, ADDONUAPLUS #### [facility] [address] [place] [address] #### C3, C4, CH50 #### [facility] , Glucose Ql (U) Normal Normal Normal [facility] Comment on above: Order Comment: Name Collection Type:: Clean-Voided Midstream Performed By: #### C UU, ADDONUAPLUS #### [facility] [address] [place] [address] #### C3, C4, CH50 #### [facility] , Hyaline Casts,Urine 1-2 Normal 0-8 [facility] Comment on above: Order Comment: Name Collection Type:: Clean-Voided Midstream Result Comment: PERF ORMED BY: [place] [address] PATHOLOGIST OPERATIONS LOGISTICS ANALYST RADHA BULLARD M.D. Performed By: #### C UU, ADDONUAPLUS #### [address] #### C3, C4, CH50 #### [facility] , Ketones Ql (U) Negative Normal Negative [facility] Comment on above: Order Comment: Name Collection Type:: Clean-Voided Midstream Performed By: #### C UU, ADDONUAPLUS #### [address] #### C3, C4, CH50 #### [facility] , Leukocyte esterase Test strip Ql (U) 4+ High Negative [facility] Comment on above: Order Comment: Name Collection Type:: Clean-Voided Midstream Performed By: #### C UU, ADDONUAPLUS #### [address] #### C3, C4, CH50 #### [facility] , Nitrite,Urine Negative Normal Negative [facility] Comment on above: Order Comment: Name Collection Type:: Clean-Voided Midstream Performed By: #### C UU, ADDONUAPLUS #### [address] #### C3, C4, CH50 #### [facility] , Occult Blood,Urine 1+ High Negative [facility] Comment on above: Order Comment: Name Collection Type:: Clean-Voided Midstream Performed By: #### C UU, ADDONUAPLUS #### [address] #### C3, C4, CH50 #### [facility] , pH (U) 6.5 [pH] Normal 5.0-9.0 [facility] Comment on above: Order Comment: Name Collection Type:: Clean-Voided Midstream Performed By: #### C UU, ADDONUAPLUS #### [address] [place] [address] [place] #### C3, C4, CH50 #### [facility] , Protein,Urine Trace High Negative [facility] Comment on above: Order Comment: Name Collection Type:: Clean-Voided Midstream Performed By: #### C UU, ADDONUAPLUS #### [address] #### C3, C4, CH50 #### [facility] , RBC,Urine 1-2 Normal 0-4 [facility] Comment on above: Order Comment: Name Collection Type:: Clean-Voided Midstream Performed By: #### C UU, ADDONUAPLUS #### [address] #### C3, C4, CH50 #### [facility] , Specificy Paige,Urine 1.010 Normal 1.001-1.030 [facility] Comment on above: Order Comment: Name Collection Type:: Clean-Voided Midstream Performed By: #### C UU, ADDONUAPLUS #### [address] #### C3, C4, CH50 #### [facility] , Squamous Epithelial Cell,Urine 5-9 High 0-2 [facility] Comment on above: Order Comment: Name Collection Type:: Clean-Voided Midstream Performed By: #### C UU, ADDONUAPLUS #### [address] #### C3, C4, CH50 #### [facility] , Urobilinogen,Urine Normal Normal Normal [facility] Comment on above: Order Comment: Name Collection Type:: Clean-Voided Midstream Performed By: #### C UU, ADDONUAPLUS #### [address] #### C3, C4, CH50 #### [facility] , WBC,Urine Innumerable High 0-4 [facility] Comment on above: Order Comment: Name Collection Type:: Clean-Voided Midstream Performed By: #### C UU, ADDONUAPLUS #### [address] #### C3, C4, CH50 #### [facility] , Erythrocyte Sedimentation Ra pratik 06-19-2022 ESR (Bld) [Velocity] 57 mm/h High 0-29 [facility] Comment on above: Result Comment: PERF ORMED BY: [place] [address] PATHOLOGIST OPERATIONS LOGISTICS ANALYST RADHA BULLARD M.D. Performed By: #### H EPATIC, CBC, ESR, CRP, CREAT, CK #### [address] #### RNA POLYMR, ANTI TH TO, EVAN, U3 CORRUGATOR OPERATOR HELPER, ANTIR, PM-SCL ABS #### [facility] , Hepatic Panelon 06-19-2022 Albumin [Mass/Vol] 3.6 g/dL Normal 3.2-5.5 [facility] Comment on above: Performed By: #### H EPATIC, CBC, ESR, CRP, CREAT, CK #### [facility] [address] [place] [address] #### RNA POLYMR, ANTI TH TO, EVAN, U3 CORRUGATOR OPERATOR HELPER, ANTIR, PM-SCL ABS #### [facility] , Albumin/Globulin [Mass ratio] 1.0 {ratio} Normal [facility] Comment on above: Performed By: #### H EPATIC, CBC, ESR, CRP, CREAT, CK #### [facility] [address] [place] [address] [place] #### RNA POLYMR, ANTI TH TO, EVAN, U3 CORRUGATOR OPERATOR HELPER, ANTIR, PM-SCL ABS #### [facility] , ALP [Catalytic activity/Vol] 68 U/L Normal 32-92 [facility] Comment on above: Performed By: #### H EPATIC, CBC, ESR, CRP, CREAT, CK #### [facility] [address] [place] [address] [place] #### RNA POLYMR, ANTI TH TO, EVAN, U3 CORRUGATOR OPERATOR HELPER, ANTIR, PM-SCL ABS #### [facility] , ALT [Catalytic activity/Vol] 9 U/L Low 10-60 [facility] Comment on above: Performed By: #### H EPATIC, CBC, ESR, CRP, CREAT, CK #### [facility] [address] [place] [address] [place] #### RNA POLYMR, ANTI TH TO, EVAN, U3 CORRUGATOR OPERATOR HELPER, ANTIR, PM-SCL ABS #### [facility] , AST [Catalytic activity/Vol] 15 U/L Normal 1042 [facility] Comment on above: Performed By: #### H EPATIC, CBC, ESR, CRP, CREAT, CK #### [place] [address] [place] #### RNA POLYMR, ANTI TH TO, EVAN, U3 CORRUGATOR OPERATOR HELPER, ANTIR, PM-SCL ABS #### [facility] , Bilirubin [Mass/Vol] 0.6 mg/dL Normal 0.3-1.2 [facility] Comment on above: Performed By: #### H EPATIC, CBC, ESR, CRP, CREAT, CK #### [facility] [address] [place] [address] [place] #### RNA POLYMR, ANTI TH TO, EVAN, U3 CORRUGATOR OPERATOR HELPER, ANTIR, PM-SCL ABS #### [facility] , Bilirubin,Indirect 0.4 mg/dL Normal [facility] Comment on above: Performed By: #### H EPATIC, CBC, ESR, CRP, CREAT, CK #### [place] [address] [place] #### RNA POLYMR, ANTI TH TO, EVAN, U3 CORRUGATOR OPERATOR HELPER, ANTIR, PM-SCL ABS #### [facility] , Bilirubin.indirect [Mass/Vol] 0.2 mg/dL Normal 0.0-0.4 [facility] Comment on above: Performed By: #### H EPATIC, CBC, ESR, CRP, CREAT, CK #### [address] #### RNA POLYMR, ANTI TH TO, EVAN, U3 CORRUGATOR OPERATOR HELPER, ANTIR, PM-SCL ABS #### [facility] , Globulin (S) [Mass/Vol] 3.5 g/dL Normal [facility] Comment on above: Performed By: #### H EPATIC, CBC, ESR, CRP, CREAT, CK #### [address] #### RNA POLYMR, ANTI TH TO, EVAN, U3 CORRUGATOR OPERATOR HELPER, ANTIR, PM-SCL ABS #### [facility] , Protein [Mass/Vol] 7.1 g/dL Normal 6.1-7.9 [facility] Comment on above: Performed By: #### H EPATIC, CBC, ESR, CRP, CREAT, CK #### [place] [address] [place] #### RNA POLYMR, ANTI TH TO, EVAN, U3 CORRUGATOR OPERATOR HELPER, ANTIR, PM-SCL ABS #### [facility] , PM-SCL Antibodieson 06-19-20 22 RAIZA PM-Scl Antibody <20 Normal <20 [facility] Comment on above: Result Comment: This test was developed and its performance characteristics determined by [facility]. It has not been cleared or approved by the Food and Drug Administration. Negative: <20 Weak Positive: 20 - 39 Moderate Positive: 40 - 80 Strong Positive: >80 Performed at: [facility] [address] [place] [address] [id number] Histotechnician: Artemio Nair MD, Phone: [phone] Performed By: #### C UU, ADDONUAPLUS #### [address] [place] [address] [place] #### C3, C4, CH50 #### [facility] , RNA Polymerase IIion 022 RNA Polymerase IIi <20 Normal <20 [facility] Comment on above: Result Comment: Nega tive: <20 Weak Positive: 20 - 39 Moderate Positive: 40 - 80 Strong Positive: >80 Performed at: [facility] [address] [place] [address] [id number] Histotechnician: Artemio Nair MD, Phone: [phone] PERFORMED BY: [place] [address] PATHOLOGIST OPERATIONS LOGISTICS ANALYST RADHA BULLARD M.D. Performed By: #### C UU, ADDONUAPLUS #### [address] #### C3, C4, CH50 #### [facility] , Th/To Antibodyon 06-19-2022 Th/To Antibody Negative Normal Negative [facility] Comment on above: Result Comment: This test was developed and its performance characteristics determined by [employer]. It has not been cleared or approved by the Food and Drug Administration. Performed at: [facility] [address] [place] [address] [id number] Histotechnician: Artemio Nair MD, Phone: [phone] Performed By: #### C UU, ADDONUAPLUS #### [facility] [address] [place] [address] #### C3, C4, CH50 #### [facility] , U3 Rnpon 06-19-2022 [employer] Systems Security Consultant Negative Normal Negative [facility] Comment on above: Result Comment: This test was developed and its performance characteristics determined by [facility]. It has not been cleared or approved by the Food and Drug Administration. Performed at: [facility] [address] [place] [address] [id number] Histotechnician: Artemio Nair MD, Phone: [phone] PERFORMED BY: [place] [address] PATHOLOGIST OPERATIONS LOGISTICS ANALYST RADHA BULLARD M.D. Performed By: #### C UU, ADDONUAPLUS #### [address] #### C3, C4, CH50 #### [facility] , Urine Cultureon 06-19-2022 Bacteria identified Cx Nom (U) No Growth 2 Days PERFORMED BY: [place] [address] PATHOLOGIST OPERATIONS LOGISTICS ANALYST RADHA BULLARD M.D. Normal [facility] Comment on above: Performed By: #### C UU, ADDONUAPLUS #### [address] #### C3, C4, CH50 #### [facility] , PROF CHEM 8 (BAS METB)on Anion gap [Moles/Vol] 12.5 mmol/L Normal [facility] Comment on above: Performed By: #### B MP #### [facility] [address] [address] [address] Reji Thomas Calcium [Mass/Vol] 8.9 mg/dL Normal 8.5-10.1 [facility] Comment on above: Performed By: #### B MP #### [facility] [address] [address] [address] Reji Thomas Chloride [Moles/Vol] 103 mmol/L Normal 98-107 [facility] Comment on above: Performed By: #### B MP #### [facility] [address] [address] [address] Reji Thomas CO2 [Moles/Vol] 26.1 mmol/L Normal 21.0-32.0 [facility] Comment on above: Performed By: #### B MP #### [facility] [address] [address] [address] Reji Thomas Creatinine [Mass/Vol] 2.09 mg/dL Critically high 0.55-1.02 [facility] Comment on above: Performed By: #### B MP #### [facility] [address] [address] [address] Reji Thomas EGFR-AF KENYAN 27 mL/min/1.73m2 Critically low >=60 [facility] Comment on above: Performed By: #### B MP #### [facility] [address] [address] [address] Reji Thomas EGFR-NON AF KENYAN 23 mL/min/1.73m2 Critically low >=60 [facility] Comment on above: Performed By: #### B MP #### [facility] [address] [address] [address] Reji Thomas Glucose [Mass/Vol] 96 mg/dL Normal 74-106 [facility] Comment on above: Performed By: #### B MP #### [facility] [address] [address] [address] Reji Thomas Potassium [Moles/Vol] 4.6 mmol/L Normal 3.5-5.1 [facility] Comment on above: Performed By: #### B MP #### [facility] [address] [address] [address] Reji Thomas Sodium [Moles/Vol] 137 mmol/L Normal 136-145 [facility] Comment on above: Performed By: #### B MP #### [facility] [address] [address] [address] Reji Thomas Urea nitrogen [Mass/Vol] 38.0 mg/dL Critically high 7.0-18.0 [facility] Comment on above: Performed By: #### B MP #### [facility] [address] [address] [address] Reji Thomas Urea nitrogen/Creatinine [Mass ratio] 18.2 mg/mg Normal [facility] Comment on above: Performed By: #### B MP #### [facility] [address] [address] [address] Reji Thomas PROTIMEon 06-04-2022 INR Coag (PPP) [Relative time] 2.51 {INR} Normal [facility] Comment on above: Performed By: #### B MANAGER INVENTORY CONTROL, CMP, TSH, LIPID #### [facility] [address] [place] [address] Dr. Reji Thomas INR GUIDELINES SEE BELOW Normal [facility] Comment on above: Result Comment: SHY RED INR: 2.0 - 3.0 CONDITIONS NOT LISTED BELOW 2.5 - 3.5 FOR PROSTHETIC HEART VALVE REPLACEMENT 2.5 - 3.5 RECURRENT THROMBOSIS Performed By: #### B MANAGER INVENTORY CONTROL, CMP, TSH, LIPID #### [facility] [address] [place] [address] Dr. Reji Thomas PT Coag (PPP) [Time] 25.5 s Critically high 9.0-11.6 [facility] Comment on above: Performed By: #### B MANAGER INVENTORY CONTROL, CMP, TSH, LIPID #### [facility] [address] [place] [address] Dr. Reji Thomas BNPon 05-15-2022 Natriuretic peptide B (Bld) [Mass/Vol] 3661.0 pg/mL Critically high <=1,800.0 [facility] Comment on above: Performed By: #### B MANAGER INVENTORY CONTROL, CMP, TSH, LIPID #### [facility] [address] [place] [address] Dr. Reji Thomas CBC AUTO DIFFon 05-15-2022 BASO # 0.1 103/ul Normal 0.0-0.1 [facility] Comment on above: Performed By: #### B MP #### [facility] [address] [place] [address] Dr. Reji Thomas Basophils/100 WBC (Bld) 1.1 % Normal 0.2-2.0 [facility] Comment on above: Performed By: #### B MP #### [facility] [address] [place] [address] Dr. Reji Thomas EO # 0.5 103/ul Normal 0.0-0.7 [facility] Comment on above: Performed By: #### B MP #### [facility] [address] [place] [address] Dr. Reji Thomas Eosinophils/100 WBC (Bld) 6.5 % Normal 0.9-7.0 [facility] Comment on above: Performed By: #### B MP #### [facility] [address] [place] [address] Dr. Reji Thomas Erythrocyte distribution width (RBC) [Ratio] 16.1 % Critically high 11.0-15.0 [facility] Comment on above: Performed By: #### B MP #### [facility] [address] [place] [address] Dr. Reji Thomas Hematocrit (Bld) [Volume fraction] 35.0 % Critically low 36.0-48.0 [facility] Comment on above: Performed By: #### B MP #### [facility] [address] [place] [address] Dr. Reji Thomas Hemoglobin (Bld) [Mass/Vol] 11.1 g/dL Critically low 12.0-16.0 [facility] Comment on above: Performed By: #### B MP #### [facility] [address] [place] [address] Dr. Reji Thomas IG # 0.02 10e3/ul Normal 0.00-0.03 [facility] Comment on above: Performed By: #### B MP #### [facility] [address] [place] [address] Dr. Reji Thomas IG % 0.3 % Normal 0.0-0.5 [facility] Comment on above: Performed By: #### B MP #### [facility] [address] [place] [address] Dr. Reji Thomas LYMPH # 1.6 103/ul Normal 1.2-3.8 [facility] Comment on above: Performed By: #### B MP #### [facility] [address] [place] [address] Dr. Reji Thomas Lymphocytes/100 WBC (Bld) 22.4 % Normal 20.5-60.0 [facility] Comment on above: Performed By: #### B MP #### [facility] [address] [place] [address] Dr. Reji Thomas MANUAL DIFF REQ NO Normal [facility] Comment on above: Performed By: #### B MP #### [facility] [address] [address] [address] Reji Thomas MCH (RBC) [Entitic mass] 26.4 pg Critically low 26.7-34.0 [facility] Comment on above: Performed By: #### B MP #### [facility] [address] [place] [address] Dr. Reji Thomas MCHC (RBC) [Mass/Vol] 31.7 g/dL Normal 29.9-35.2 [facility] Comment on above: Performed By: #### B MP #### [facility] [address] [place] [address] Dr. Reji Thomas MCV (RBC) [Entitic vol] 83.1 fL Normal 81.0-99.0 [facility] Comment on above: Performed By: #### B MP #### [facility] [address] [place] [address] Dr. Reji Thomas MONO # 0.9 103/ul Critically high 0.3-0.8 [facility] Comment on above: Performed By: #### B MP #### [facility] [address] [place] [address] Dr. Reji Thomas Monocytes/100 WBC (Bld) 12.1 % Critically high 1.7-12.0 [facility] Comment on above: Performed By: #### B MP #### [facility] [address] [place] [address] Dr. Reji Thomas NEUT # 4.1 103/ul Normal 1.4-6.5 [facility] Comment on above: Performed By: #### B MP #### [facility] [address] [place] [address] Dr. Reji Thomas Neutrophils/100 WBC (Bld) 57.6 % Normal 43.0-75.0 [facility] Comment on above: Performed By: #### B MP #### [facility] [address] [place] [address] Dr. Reji Thomas Platelet mean volume (Bld) [Entitic vol] 8.8 fL Critically low 9.5-13.5 [facility] Comment on above: Performed By: #### B MP #### [facility] [address] [address] [address] Reji Thomas PLT 253 103/ul Normal 150-450 [facility] Comment on above: Performed By: #### B MP #### [facility] [address] [address] [address] Reji Thomas RBC 4.21 106/ul Normal 4.20-5.40 [facility] Comment on above: Performed By: #### B MP #### [facility] [address] [place] [address] Dr. Reji Thomas WBC 7.1 103/ul Normal 4.0-11.0 [facility] Comment on above: Performed By: #### B MP #### [facility] [address] [place] [address] Dr. Reji Thomas PROF CHEM 8 (BAS METB)on Anion gap [Moles/Vol] 10.5 mmol/L Normal [facility] Comment on above: Performed By: #### B MANAGER INVENTORY CONTROL, CMP, TSH, LIPID #### [facility] [address] [place] [address] Dr. Reji Thomas Calcium [Mass/Vol] 8.9 mg/dL Normal 8.5-10.1 [facility] Comment on above: Performed By: #### B MANAGER INVENTORY CONTROL, CMP, TSH, LIPID #### [facility] [address] [place] [address] Dr. Reji Thomas Chloride [Moles/Vol] 104 mmol/L Normal 98-107 [facility] Comment on above: Performed By: #### B MANAGER INVENTORY CONTROL, CMP, TSH, LIPID #### [facility] [address] [place] [address] Dr. Reji Thomas CO2 [Moles/Vol] 29.5 mmol/L Normal 21.0-32.0 [facility] Comment on above: Performed By: #### B MANAGER INVENTORY CONTROL, CMP, TSH, LIPID #### [facility] [address] [place] [address] Dr. Reji Thomas Creatinine [Mass/Vol] 1.73 mg/dL Critically high 0.55-1.02 [facility] Comment on above: Performed By: #### B MANAGER INVENTORY CONTROL, CMP, TSH, LIPID #### [facility] [address] [place] [address] Dr. Reji Thomas EGFR-AF KENYAN 34 mL/min/1.73m2 Critically low >=60 [facility] Comment on above: Performed By: #### B MANAGER INVENTORY CONTROL, CMP, TSH, LIPID #### [facility] [address] [place] [address] Dr. Reji Thomas EGFR-NON AF KENYAN 28 mL/min/1.73m2 Critically low >=60 [facility] Comment on above: Performed By: #### B MANAGER INVENTORY CONTROL, CMP, TSH, LIPID #### [facility] [address] [place] [address] Dr. Reji Thomas Glucose [Mass/Vol] 79 mg/dL Normal 74-106 [facility] Comment on above: Performed By: #### B MANAGER INVENTORY CONTROL, CMP, TSH, LIPID #### [facility] [address] [place] [address] Dr. Reji Thomas Potassium [Moles/Vol] 4.0 mmol/L Normal 3.5-5.1 [facility] Comment on above: Performed By: #### B MANAGER INVENTORY CONTROL, CMP, TSH, LIPID #### [facility] [address] [place] [address] Dr. Reji Thomas Sodium [Moles/Vol] 140 mmol/L Normal 136-145 [facility] Comment on above: Performed By: #### B MANAGER INVENTORY CONTROL, CMP, TSH, LIPID #### [facility] [address] [place] [address] Dr. Reji Thomas Urea nitrogen [Mass/Vol] 22.0 mg/dL Critically high 7.0-18.0 [facility] Comment on above: Performed By: #### B MANAGER INVENTORY CONTROL, CMP, TSH, LIPID #### [facility] [address] [place] [address] Dr. Reji Thomas Urea nitrogen/Creatinine [Mass ratio] 12.7 mg/mg Normal [facility] Comment on above: Performed By: #### B MANAGER INVENTORY CONTROL, CMP, TSH, LIPID #### [facility] [address] [address] [address] Reji Thomas PROTIMEon 05-15-2022 INR Coag (PPP) [Relative time] 2.53 {INR} Normal [facility] Comment on above: Performed By: #### B MANAGER INVENTORY CONTROL, CMP, TSH, LIPID #### [facility] [address] [address] [address] Reji Thomas INR GUIDELINES SEE BELOW Normal [facility] Comment on above: Result Comment: SHY RED INR: 2.0 - 3.0 CONDITIONS NOT LISTED BELOW 2.5 - 3.5 FOR PROSTHETIC HEART VALVE REPLACEMENT 2.5 - 3.5 RECURRENT THROMBOSIS Performed By: #### B MANAGER INVENTORY CONTROL, CMP, TSH, LIPID #### [facility] [address] [address] [address] Reji Thomas PT Coag (PPP) [Time] 25.7 s Critically high 9.0-11.6 [facility] Comment on above: Performed By: #### B MANAGER INVENTORY CONTROL, CMP, TSH, LIPID #### [facility] [address] [address] [address] Reji Thomas ECHOCARDIO M/2D COMPLETEon 0 05-04-2022 ECHOCARDIO M/2D COMPLETE Patient: INEZ JUAREZ Exam Date: 05/04/2022 : 1940 Gender:F Ordering : DR JENN PRADO M.D. Admission #: [id number] Family : Order #: [id number] CLICK HERE TO VIEW EXAM ECHOCARDIOGRAM REPORT [...] Area(A4C): 27.20 cm2 Left Atrium Systolic Volume(A2C): 067673 mm3 Left Atrium Systolic Volume(A4C): 55645 mm3 Mitral Valve MV E to A Ratio: 2.60 Deceleration Dunn: 71540 mm/s2 Mitral Valve A-Wave Peak Velocity: 58.60 [...] Prado M.D. on 05/07/2022 at 11:39 Normal [facility] EVAN by IFAon 04-19-2022 Antinuclear Antibodies, IFA Positive Abnormal [facility] Comment on above: Result Comment: Nega tive <1:80 Borderline 1:80 Positive >1:80 Performed By: #### B MANAGER INVENTORY CONTROL, CMP, TSH, LIPID #### [facility] [address] [address] [address] Reji Thomas Centriole Pattern Normal [facility] Comment on above: Performed By: #### B MANAGER INVENTORY CONTROL, CMP, TSH, LIPID #### [facility] [address] [address] [address] Reji Thomas Centromere Pattern Normal [facility] Comment on above: Performed By: #### B MANAGER INVENTORY CONTROL, CMP, TSH, LIPID #### [facility] [address] [address] [address] Reji Thomas Homogeneous Pattern 1:320 Critically high [facility] Comment on above: Result Comment: ICAP nomenclature: AC-1 Performed By: #### B MANAGER INVENTORY CONTROL, CMP, TSH, LIPID #### [facility] [address] [address] [address] Reji Thomas Midbody Pattern Normal [facility] Comment on above: Performed By: #### B MANAGER INVENTORY CONTROL, CMP, TSH, LIPID #### [facility] [address] [address] [address] Reji Thomas Note: Comment Normal [facility] Comment on above: Result Comment: [...] titers Nucleosomes, Histones Drug-induced SLE Speckled Sm, CORRUGATOR OPERATOR HELPER, SCL-70, SLE,MCTD,PSS (diffuse form), SS-A/SS-B Sjogrens Nucleolar SCL-70, PM-1/SCL High titers Scleroderma, PM/DM Centromere Centromere PSS (limited form) w/Crest syndrome variable Nuclear Dot Sp100,f25-kylato Primary Biliary Cirrhosis Nuclear GP210, Primary Biliary Cirrhosis Membrane eleonora A,B,C Performed By: #### B MANAGER INVENTORY CONTROL, CMP, TSH, LIPID #### [facility] [address] [address] [address] Reji Thomas Nuclear Dot Pattern Normal [facility] Comment on above: Performed By: #### B MANAGER INVENTORY CONTROL, CMP, TSH, LIPID #### [facility] [address] [address] [address] Reji Thomas Nuclear Membrane Pattern Normal [facility] Comment on above: Performed By: #### B MANAGER INVENTORY CONTROL, CMP, TSH, LIPID #### [facility] [address] [address] [address] Reji Thomas Nucleolar Pattern Normal [facility] Comment on above: Performed By: #### B MANAGER INVENTORY CONTROL, CMP, TSH, LIPID #### [facility] [address] [address] [address] Reji Thomas PCNA Pattern Normal [facility] Comment on above: Performed By: #### B MANAGER INVENTORY CONTROL, CMP, TSH, LIPID #### [facility] [address] [address] [address] Reij Thomas Speckled Pattern Normal [facility] Comment on above: Performed By: #### B MANAGER INVENTORY CONTROL, CMP, TSH, LIPID #### [facility] [address] [address] [address] Reji Thomas Spindle Apparatus Pattern Normal [facility] Comment on above: Performed By: #### B MANAGER INVENTORY CONTROL, CMP, TSH, LIPID #### [facility] [address] [address] [address] Reji Thomas ANCA (ANTINEUTROPHIL CYTOPLA MSMIC ABon 04-18-2022 Atypical pANCA <1:20 Normal Neg:<1:20 [facility] Comment on above: Result Comment: Seru m is slightly hemolyzed The atypical pANCA pattern has been observed in a significant percentage of patients with ulcerative colitis, primary sclerosing cholangitis and autoimmune hepatitis. Performed By: #### B MP #### [facility] [address] [address] [address] Reji Thomas Cytoplasmic (C-ANCA) <1:20 Normal Neg:<1:20 [facility] Comment on above: Result Comment: Seru m is slightly hemolyzed Performed By: #### B MP #### [facility] [address] [address] [address] Reji Thomas Perinuclear (P-ANCA) <1:20 Normal Neg:<1:20 [facility] Comment on above: Result Comment: [...] 1999;111:507-513. Performed By: #### B MP #### [facility] [address] [place] [address] Dr. Reji Thomas ANTISCLERODERMA ABon 022 Antiscleroderma-70 Antibodies 0.3 AI Normal 0.0-0.9 [facility] Comment on above: Performed By: #### B MANAGER INVENTORY CONTROL, CMP, TSH, LIPID #### [facility] [address] [place] [address] Dr. Reji Thomas T3 UPTAKEon 04-18-2022 Free Thyroxine Index 1.8 Normal 1.2-4.9 [facility] Comment on above: Performed By: #### B MANAGER INVENTORY CONTROL, CMP, TSH, LIPID #### [facility] [address] [place] [address] Dr. Reji Thomas T3 Uptake 23 % Critically low 24-39 [facility] Comment on above: Performed By: #### B MANAGER INVENTORY CONTROL, CMP, TSH, LIPID #### [facility] [address] [address] [address] Reji Thomas T4 LABCORPon 04-18-2022 T4 [Mass/Vol] 7.8 ug/dL Normal 4.5-12.0 [facility] Comment on above: Performed By: #### B MANAGER INVENTORY CONTROL, CMP, TSH, LIPID #### [facility] [address] [place] [address] Dr. Reji Thomas BNPon 04-16-2022 Natriuretic peptide B (Bld) [Mass/Vol] 2870.0 pg/mL Critically high <=1,800.0 [facility] Comment on above: Result Comment: repe ated Performed By: #### B MANAGER INVENTORY CONTROL, CMP, TSH, LIPID #### [facility] [address] [place] [address] Dr. Reji Thomas CBC AUTO DIFFon 04-16-2022 BASO # 0.1 103/ul Normal 0.0-0.1 [facility] Comment on above: Performed By: #### B MANAGER INVENTORY CONTROL, CMP, TSH, LIPID #### [facility] [address] [place] [address] Dr. Reji Thomas Basophils/100 WBC (Bld) 0.9 % Normal 0.2-2.0 [facility] Comment on above: Performed By: #### B MANAGER INVENTORY CONTROL, CMP, TSH, LIPID #### [facility] [address] [place] [address] Dr. Reji Thomas EO # 0.3 103/ul Normal 0.0-0.7 [facility] Comment on above: Performed By: #### B MANAGER INVENTORY CONTROL, CMP, TSH, LIPID #### [facility] [address] [place] [address] Dr. Reji Thomas Eosinophils/100 WBC (Bld) 3.9 % Normal 0.9-7.0 [facility] Comment on above: Performed By: #### B MANAGER INVENTORY CONTROL, CMP, TSH, LIPID #### [facility] [address] [place] [address] Dr. Reji Thomas Erythrocyte distribution width (RBC) [Ratio] 15.9 % Critically high 11.0-15.0 [facility] Comment on above: Performed By: #### B MANAGER INVENTORY CONTROL, CMP, TSH, LIPID #### [facility] [address] [address] [address] Reji Thomas Hematocrit (Bld) [Volume fraction] 38.1 % Normal 36.0-48.0 [facility] Comment on above: Performed By: #### B MANAGER INVENTORY CONTROL, CMP, TSH, LIPID #### [facility] [address] [address] [address] Reji Thomas Hemoglobin (Bld) [Mass/Vol] 12.1 g/dL Normal 12.0-16.0 [facility] Comment on above: Performed By: #### B MANAGER INVENTORY CONTROL, CMP, TSH, LIPID #### [facility] [address] [place] [address] Dr. Reji Thomas IG # 0.02 10e3/ul Normal 0.00-0.03 [facility] Comment on above: Performed By: #### B MANAGER INVENTORY CONTROL, CMP, TSH, LIPID #### [facility] [address] [place] [address] Dr. Reji Thomas IG % 0.3 % Normal 0.0-0.5 [facility] Comment on above: Performed By: #### B MANAGER INVENTORY CONTROL, CMP, TSH, LIPID #### [facility] [address] [address] [address] Reji Thomas LYMPH # 1.6 103/ul Normal 1.2-3.8 [facility] Comment on above: Performed By: #### B MANAGER INVENTORY CONTROL, CMP, TSH, LIPID #### [facility] [address] [address] [address] Reji Thomas Lymphocytes/100 WBC (Bld) 22.6 % Normal 20.5-60.0 [facility] Comment on above: Performed By: #### B MANAGER INVENTORY CONTROL, CMP, TSH, LIPID #### [facility] [address] [address] [address] Reji Thomas MANUAL DIFF REQ NO Normal [facility] Comment on above: Performed By: #### B MANAGER INVENTORY CONTROL, CMP, TSH, LIPID #### [facility] [address] [place] [address] Dr. Reji Thomas MCH (RBC) [Entitic mass] 26.5 pg Critically low 26.7-34.0 [facility] Comment on above: Performed By: #### B MANAGER INVENTORY CONTROL, CMP, TSH, LIPID #### [facility] [address] [place] [address] Dr. Reji Thomas MCHC (RBC) [Mass/Vol] 31.8 g/dL Normal 29.9-35.2 [facility] Comment on above: Performed By: #### B MANAGER INVENTORY CONTROL, CMP, TSH, LIPID #### [facility] [address] [place] [address] Dr. Reji Thomas MCV (RBC) [Entitic vol] 83.4 fL Normal 81.0-99.0 [facility] Comment on above: Performed By: #### B MANAGER INVENTORY CONTROL, CMP, TSH, LIPID #### [facility] [address] [place] [address] Dr. Reji Thomas MONO # 0.6 103/ul Normal 0.3-0.8 [facility] Comment on above: Performed By: #### B MANAGER INVENTORY CONTROL, CMP, TSH, LIPID #### [facility] [address] [place] [address] Dr. Reji Thomas Monocytes/100 WBC (Bld) 9.3 % Normal 1.7-12.0 [facility] Comment on above: Performed By: #### B MANAGER INVENTORY CONTROL, CMP, TSH, LIPID #### [facility] [address] [place] [address] Dr. Reji Thomas NEUT # 4.3 103/ul Normal 1.4-6.5 [facility] Comment on above: Performed By: #### B MANAGER INVENTORY CONTROL, CMP, TSH, LIPID #### [facility] [address] [place] [address] Dr. Reji Thomas Neutrophils/100 WBC (Bld) 63.0 % Normal 43.0-75.0 [facility] Comment on above: Performed By: #### B MANAGER INVENTORY CONTROL, CMP, TSH, LIPID #### [facility] [address] [place] [address] Dr. Reji Thomas Platelet mean volume (Bld) [Entitic vol] 9.2 fL Critically low 9.5-13.5 [facility] Comment on above: Performed By: #### B MANAGER INVENTORY CONTROL, CMP, TSH, LIPID #### [facility] [address] [address] [address] Reji Thomas PLT 211 103/ul Normal 150-450 [facility] Comment on above: Performed By: #### B MANAGER INVENTORY CONTROL, CMP, TSH, LIPID #### [facility] [address] [address] [address] Reji Thomas RBC 4.57 106/ul Normal 4.20-5.40 [facility] Comment on above: Performed By: #### B MANAGER INVENTORY CONTROL, CMP, TSH, LIPID #### [facility] [address] [place] [address] Dr. Reji Thomas WBC 6.9 103/ul Normal 4.0-11.0 [facility] Comment on above: Performed By: #### B MANAGER INVENTORY CONTROL, CMP, TSH, LIPID #### [facility] [address] [place] [address] Dr. Reji Thomas GLYCOHEMOGLOBIN A1Con 2021 ADA RECOMMENDATION SEE BELOW Normal [facility] Comment on above: Result Comment: ADA RECOMMENDED LIMIT 4.0 - 6.0 ADA THERAPEUTIC TARGET < 7.0 ACTION SUGGESTED > 7.0 Performed By: #### B MANAGER INVENTORY CONTROL, CMP, TSH, LIPID #### [facility] [address] [place] [address] Dr. Reji Thomas Glucose [Mass/Vol] 100 mg/dL Normal [facility] Comment on above: Performed By: #### B MANAGER INVENTORY CONTROL, CMP, TSH, LIPID #### [facility] [address] [place] [address] Dr. Reji Thomas HbA1c (Bld) [Mass fraction] 5.1 % Normal 4.5-6.2 [facility] Comment on above: Performed By: #### B MANAGER INVENTORY CONTROL, CMP, TSH, LIPID #### [facility] [address] [place] [address] Dr. Reji Thomas IRONon 04-16-2022 Iron [Mass/Vol] 42.0 ug/dL Critically low 50.0-170.0 [facility] Comment on above: Performed By: #### B MANAGER INVENTORY CONTROL, CMP, TSH, LIPID #### [facility] [address] [address] [address] Reji Thomas LIPID PROFILEon 04-16-2022 CHOL-HDL RATIO NORM SEE BELOW Normal [facility] Comment on above: Result Comment: 3.3 - 4.4 LOW RISK 4.4 - 7.1 AVERAGE RISK 7.1 - 11.0 MODERATE RISK >11.0 HIGH RISK Performed By: #### B MANAGER INVENTORY CONTROL, CMP, TSH, LIPID #### [facility] [address] [address] [address] Reji Thomas Cholesterol [Mass/Vol] 176 mg/dL Normal <=200 [facility] Comment on above: Performed By: #### B MANAGER INVENTORY CONTROL, CMP, TSH, LIPID #### [facility] [address] [address] [address] Reji Thomas Cholesterol in HDL [Mass/Vol] 52 mg/dL Normal 40-60 [facility] Comment on above: Performed By: #### B MANAGER INVENTORY CONTROL, CMP, TSH, LIPID #### [facility] [address] [address] [address] Reji Thomas Cholesterol in LDL [Mass/Vol] 102.8 mg/dL Normal [facility] Comment on above: Performed By: #### B MANAGER INVENTORY CONTROL, CMP, TSH, LIPID #### [facility] [address] [address] [address] Reji Thomas Cholesterol.total/Ch olesterol in HDL [Mass ratio] 3.4 {ratio} Normal [facility] Comment on above: Performed By: #### B MANAGER INVENTORY CONTROL, CMP, TSH, LIPID #### [facility] [address] [place] [address] Dr. Reji Thomas HDL NORMAL > or = 60 mg/dl - LOW CARDIOVASCULAR RISK <40 mg/dl - HIGH CARDIOVASCULAR RISK Normal [facility] Comment on above: Performed By: #### B MANAGER INVENTORY CONTROL, CMP, TSH, LIPID #### [facility] [address] [place] [address] Dr. Reji Thomas LDL CALC NORMAL SEE BELOW Normal [facility] Comment on above: Result Comment: <100 mg/dl OPTIMAL 100 - 129 mg/dl NEAR OR ABOVE OPTIMAL 130 - 159 mg/dl BORDERLINE HIGH 160 - 189 mg/dl HIGH >190 mg/dl VERY HIGH Performed By: #### B MANAGER INVENTORY CONTROL, CMP, TSH, LIPID #### [facility] [address] [place] [address] Dr. Reji Thomas Triglyceride [Mass/Vol] 106 mg/dL Normal <=150 [facility] Comment on above: Performed By: #### B MANAGER INVENTORY CONTROL, CMP, TSH, LIPID #### [facility] [address] [place] [address] Dr. Reji Thomas VLDL CALC 21.2 mg/dL Normal [facility] Comment on above: Performed By: #### B MANAGER INVENTORY CONTROL, CMP, TSH, LIPID #### [facility] [address] [place] [address] Dr. Reji Thomas PROF 14(COMP METB)on 022 Albumin [Mass/Vol] 3.6 g/dL Normal 3.4-5.0 [facility] Comment on above: Performed By: #### B MANAGER INVENTORY CONTROL, CMP, TSH, LIPID #### [facility] [address] [place] [address] Dr. Reji Thomas Albumin/Globulin [Mass ratio] 0.9 {ratio} Normal [facility] Comment on above: Performed By: #### B MANAGER INVENTORY CONTROL, CMP, TSH, LIPID #### [facility] [address] [place] [address] Dr. Reji Thomas ALP [Catalytic activity/Vol] 62 U/L Normal 46-116 [facility] Comment on above: Performed By: #### B MANAGER INVENTORY CONTROL, CMP, TSH, LIPID #### [facility] [address] [place] [address] Dr. Reji Thomas ALT [Catalytic activity/Vol] 14 U/L Normal 14-59 [facility] Comment on above: Performed By: #### B MANAGER INVENTORY CONTROL, CMP, TSH, LIPID #### [facility] [address] [place] [address] Dr. Reji Thomas Anion gap [Moles/Vol] 14.5 mmol/L Normal [facility] Comment on above: Performed By: #### B MANAGER INVENTORY CONTROL, CMP, TSH, LIPID #### [facility] [address] [address] [address] Reji Thomas AST [Catalytic activity/Vol] 17 U/L Normal 15-37 [facility] Comment on above: Performed By: #### B MANAGER INVENTORY CONTROL, CMP, TSH, LIPID #### [facility] [address] [address] [address] Reji Thomas Bilirubin [Mass/Vol] 0.6 mg/dL Normal 0.2-1.0 [facility] Comment on above: Performed By: #### B MANAGER INVENTORY CONTROL, CMP, TSH, LIPID #### [facility] [address] [address] [address] Reji Thomas Calcium [Mass/Vol] 8.8 mg/dL Normal 8.5-10.1 [facility] Comment on above: Performed By: #### B MANAGER INVENTORY CONTROL, CMP, TSH, LIPID #### [facility] [address] [address] [address] Reji Thomas Chloride [Moles/Vol] 102 mmol/L Normal 98-107 [facility] Comment on above: Performed By: #### B MANAGER INVENTORY CONTROL, CMP, TSH, LIPID #### [facility] [address] [address] [address] Reji Thomas CO2 [Moles/Vol] 26.3 mmol/L Normal 21.0-32.0 [facility] Comment on above: Performed By: #### B MANAGER INVENTORY CONTROL, CMP, TSH, LIPID #### [facility] [address] [address] [address] Reji Thomas Creatinine [Mass/Vol] 1.76 mg/dL Critically high 0.55-1.02 [facility] Comment on above: Performed By: #### B MANAGER INVENTORY CONTROL, CMP, TSH, LIPID #### [facility] [address] [address] [address] Reji Thomas EGFR-AF KENYAN 33 mL/min/1.73m2 Critically low >=60 [facility] Comment on above: Performed By: #### B MANAGER INVENTORY CONTROL, CMP, TSH, LIPID #### [facility] [address] [address] [address] Reji Thomas EGFR-NON AF KENYAN 28 mL/min/1.73m2 Critically low >=60 [facility] Comment on above: Performed By: #### B MANAGER INVENTORY CONTROL, CMP, TSH, LIPID #### [facility] [address] [address] [address] Reji Thomas Globulin (S) [Mass/Vol] 4.2 g/dL Normal [facility] Comment on above: Performed By: #### B MANAGER INVENTORY CONTROL, CMP, TSH, LIPID #### [facility] [address] [address] [address] Reji Thomas Glucose [Mass/Vol] 81 mg/dL Normal 74-106 [facility] Comment on above: Performed By: #### B MANAGER INVENTORY CONTROL, CMP, TSH, LIPID #### [facility] [address] [place] [address] Dr. Reji Thomas Potassium [Moles/Vol] 3.8 mmol/L Normal 3.5-5.1 [facility] Comment on above: Performed By: #### B MANAGER INVENTORY CONTROL, CMP, TSH, LIPID #### [facility] [address] [place] [address] Dr. Reji Thomas Protein [Mass/Vol] 7.8 g/dL Normal 6.4-8.2 [facility] Comment on above: Performed By: #### B MANAGER INVENTORY CONTROL, CMP, TSH, LIPID #### [facility] [address] [place] [address] Dr. Reji Thomas Sodium [Moles/Vol] 139 mmol/L Normal 136-145 [facility] Comment on above: Performed By: #### B MANAGER INVENTORY CONTROL, CMP, TSH, LIPID #### [facility] [address] [place] [address] Dr. Reji Thomas Urea nitrogen [Mass/Vol] 27.0 mg/dL Critically high 7.0-18.0 [facility] Comment on above: Performed By: #### B MANAGER INVENTORY CONTROL, CMP, TSH, LIPID #### [facility] [address] [place] [address] Dr. Reji Thomas Urea nitrogen/Creatinine [Mass ratio] 15.3 mg/mg Normal [facility] Comment on above: Performed By: #### B MANAGER INVENTORY CONTROL, CMP, TSH, LIPID #### [facility] [address] [place] [address] Dr. Reji Thomas PROTIMEon 04-16-2022 INR Coag (PPP) [Relative time] 1.92 {INR} Normal [facility] Comment on above: Performed By: #### B MANAGER INVENTORY CONTROL, CMP, TSH, LIPID #### [facility] [address] [place] [address] Dr. Reji Thomas INR GUIDELINES SEE BELOW Normal [facility] Comment on above: Result Comment: SHY RED INR: 2.0 - 3.0 CONDITIONS NOT LISTED BELOW 2.5 - 3.5 FOR PROSTHETIC HEART VALVE REPLACEMENT 2.5 - 3.5 RECURRENT THROMBOSIS Performed By: #### B MANAGER INVENTORY CONTROL, CMP, TSH, LIPID #### [facility] [address] [place] [address] Dr. Reji Thomas PT Coag (PPP) [Time] 19.9 s Critically high 9.0-11.6 [facility] Comment on above: Performed By: #### B MANAGER INVENTORY CONTROL, CMP, TSH, LIPID #### [facility] [address] [place] [address] Dr. Reji Thomas [facility] 37 mm/hr Critically high <=30 [facility] Comment on above: Performed By: #### B MANAGER INVENTORY CONTROL, CMP, TSH, LIPID #### [facility] [address] [place] [address] Dr. Reji Thomas TSHon 04-16-2022 TSH 1.941 uIU/mL Normal 0.358-3.740 [facility] Comment on above: Performed By: #### B MANAGER INVENTORY CONTROL, CMP, TSH, LIPID #### [facility] [address] [place] [address] Dr. Reji Thomas TSH RANGE SEE BELOW Normal [facility] Comment on above: Result Comment: <0.3 4 UIU/ml HYPERTHYROID 0.34-5.60 UIU/ml EUTHYROID >5.60 UIU/ml HYPOTHYROID Performed By: #### B MANAGER INVENTORY CONTROL, CMP, TSH, LIPID #### [facility] [address] [place] [address] Dr. Reji Thomas VITAMIN D 25 OHon 04-16-2022 VIT D 25-OH 56.6 ng/mL Normal [facility] Comment on above: Performed By: #### B MANAGER INVENTORY CONTROL, CMP, TSH, LIPID #### [facility] [address] [place], [place] [address] Dr. Reji Thomas VIT D RANGES SEE BELOW Normal [facility] Comment on above: Result Comment: <20 ng/mL Vit D deficient 20 - <30 ng/mL Vit D insufficient 30 - 100 ng/mL Vit D sufficient >100 ng/mL Potential Toxicity Performed By: #### B MANAGER INVENTORY CONTROL, CMP, TSH, LIPID #### [facility] [address] [address] [address] Reji Thomas Cardiovascular Lab Reporton 11-02-2021 Cardiovascular Lab Report [facility] Patient Name: Inez Juarez MR #: [id number] [facility] Physician: Jenn Prado M.D. Department of Service Date: 11/01/2021 Medicine Birthdate: 1940 Division of Room #: Cardiology Adult Cardiovascular Services [place] [address] Cardiovascular Laboratory Report INDICATION: The patient is [...] She signed consent. 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 The right neck area was prepped and draped in usual fashion. Micropuncture technique and ultrasound guidance were used for access in the right internal jugular vein. A 6-Tanzanian x 11 cm sheath was placed. A 6-Tanzanian Hernández catheter was used for heart catheterization [...] Prado M.D. Date Trans: 11/01/2021 11:22 P/alondra [id number] cc: Bruce Rizvi M.D. [address] [address] Normal [facility] Cardiovascular Lab Reporton 06-02-2021 Cardiovascular Lab Report [facility] Patient Name: Inez Juarez MR #: [id number] [facility] Physician: Jenn Prado M.D. Department of Service Date: 06/02/2021 Medicine Birthdate: 1940 Division of Room #: CC Cardiology Adult Cardiovascular Services [place] [address] Cardiovascular Laboratory Report INDICATION: The patient is [...] the informed consent. 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 The right neck area was prepped and draped in usual fashion. Using micropuncture technique and ultrasound guidance, the right internal jugular vein was accessed and a 6-Tanzanian x 11 cm sheath was placed. A 6-Tanzanian Hernández catheter was used for heart catheterization [...] Prado M.D. Date Trans: 06/02/2021 02:42 P/mmo [id number] cc: Bruce Rizvi M.D. [address], [place] [address] [facility] Encounters Encounter Date Encounter Type Care Provider Facility Start: 06-28-2025 End: 06-28-2025 ambulatory [facility] Start: 07-03-2024 End: 07-03-2024 ambulatory [facility] Start: 03-22-2023 End: 03-23-[address] [...] 11-01-2021 End: 11-02-2021 ambulatory PROVIDER UNKNOWN Facility:[facility] Start: 06-02-2021 End: 06-03-2021 ambulatory PROVIDER UNKNOWN Facility:[facility] Payers Date Payer Category Payer Medicare [id number] 1961 Medicare [id number] 1961 Medicare [id number] 1961 Self-pay [id number] 1940 Unknown [id number] 2.16.8 [id number] 1940 Unknown [id number] 2.16.8 40.1.666523.3.579.2.647 1940 Unknown [id number] 2.16.84 0.1.956932.3.579.2.593 1938 Unknown [id number] 2.16.84 0.1.003222.3.579.2.593 1938 Unknown [id number] 2.16.84 0.1.745010.3.579.2.593 1938 Unknown [id number] 2.16.84 0.1.964780.3.579.2.593 1938 Unknown [id number] 2.16.84 0.1.288324.3.579.2.593 1938 Unknown [id number] 2.16.84 0.1.854069.3.579.2.593 1938 Unknown [id number] 2.16.84 0.1.666567.3.579.2.59 1938 Unknown [id number] 2.16.84 0.1.989142.3.579.2.593 1938 Unknown [id number] 2.16.84 0.1.634813.3.579.2.593 1938 Unknown [id number] 2.16.84 0.1.229945.3.579.2.593 1938 Unknown [id number] 2.16.84 0.1.546013.3.579.2.593 1938 Unknown [id number] 2.16.84 0.1.936096.3.579.2.593 1938 Unknown [id number] 2.16.84 0.1.581964.3.579.2.593 1938 Unknown [id number] 2.16.84 0.1.484295.3.579.2.593 1938 Unknown [id number] 2.16.84 0.1.054948.3.579.2.593 1938 Unknown [id number] 2.16.84 0.1.293914.3.579.2.593 1938 Unknown [id number] 2.16.84 0.1.103096.3.579.2.593 1938 Unknown [id number] 2.16.84 0.1.740415.3.579.2.593 1938 Unknown [id number] 2.16.84 0.1.652952.3.579.2.593 Private Health Insurance [employer] [id number] Progress note 06-28-2025 Note Date & Type Note Facility 06-28-2025 Note [place] [facility] Petrona Juarez is a 85 y.o. year [...] Musculoskeletal: Positive for (more content not included)... [facility] Progress note 07-03-2024 Note Date & Type Note Facility 07-03-2024 Note [place] [facility] - [facility] Subjective [...] Pulse 50 Ht (more content not included)... [facility] [...] DATE CREATED AUTHOR AUTHOR'S ORGANIZ ATION 07/05/2022 [facility] DATE CREATED AUTHOR AUTHOR'S ORGANIZ ATION 03/23/2023 [facility] DATE CREATED AUTHOR AUTHOR'S ORGANIZ ATION 06/29/2025 [facility] FOR RECORDS PERTAINING TO PATIENTS [...] PRIMARY CLINICAL RECORDS. [facility] [employer] provides no warranty or guarantee of the accuracy or completeness of information in this document.
[2025-08-05 13:41] LABS: INR 3.15; Prothrombin Time 29.8 sec (9.0-11.6)
[2025-08-05 14:05] LABS: Alanine Aminotransferase 16 U/L (14-59); Albumin Globulin Ratio 0.8; Albumin Level 3.3 g/dL (3.4-5.0); Alkaline Phosphatase 63 U/L (46-116); Anion Gap 14.7; Aspartate Amino Transferase 17 U/L (15-37); Blood Urea Nitrogen 41.0 mg/dL (7.0-18.0); Calcium 8.4 mg/dL (8.5-10.1); Carbon Dioxide 26.6 mmol/L (21.0-32.0); Chloride 105 mmol/L (98-107); Estimated GFR (African America 23 (>=60 mL/min/1.73m^2); Estimated GFR (Non-African Ame 19 (>=60 mL/min/1.73m^2); Globulin 4.1 g/dL; Glucose 87 mg/dL (74-106); Potassium 4.3 mmol/L (3.5-5.1); Sodium 142 mmol/L (136-145); Total Protein 7.4 g/dL (6.4-8.2)
== END 2025-08-05 13:04 | disposition home or self-care (01) ==
LOC: LAB 13:03
PROVIDERS: PCP Family Medicine; Visit Provider Family Medicine
DX: N18.32 Chronic kidney disease, stage 3b (principal); I27.20 Pulmonary hypertension, unspecified; I35.0 Nonrheumatic aortic (valve) stenosis
CPT/HCPCS: 36415; 80053; 85025; 85610

== ENCOUNTER 2025-08-12 11:37 | Outpatient (OUT) | payer MEDICARE, SELFPAY ==
--- OUTSIDE RECORDS SUMMARY | 2025-07-23 11:15 | XMS_ITS ---
Author Organization [facility] [place] Address [address] [place] [address] Care Team Providers Care Automobile Relocation Engineer Name Role Phone DmitriRegino Primary Care Provider REASON FOR VISIT wheezing not feeling well Encounters Encounter Location Date Provider Diagnosis [facility] [address] [place] [address] 07/23/2025 Regino Rizvi Plan Of Treatment Next Appt Details Provider Name:Regino Rizvi, 11:00:00 AM, [address] [place], [address], Progress Notes * LARRY InezDOB:1940 (85 yo F)Acc No.[id number]:07/23/2025 UNLOCKED PROGRESS NOTE Progress Note Patient: Inez SHARPE Provider: Melvin Rizvi MD (TTC) :1940 A ge:85 Y S ex:Female Date:07/23/2025 Address:[facility] [address], [id number] Subjective: * Chief Complaints: * 1 . Wheezing not feeling well. * Medical History: Objective: * Vitals: Assessment: Plan: * Treatment: * * Electronic signature of Regino Rizvi MD, [phone] on 08/12/2025 at 11:42 AM EDT Sign off status: Pending Visit Status: C ANCPHONE (Cancelled Phone) * Provider: Melvin Rizvi MD (TTC) Date: 0 07/23/2025 Generated for Minda olivares/Roland/Piter on: 1 11:42 AM TIFFANI
--- OUTSIDE RECORDS SUMMARY | 2025-08-03 13:41 | XMS_ITS ---
Author Organization [facility] [place] Address [address] [place] [address] Care Team Providers Care Water Pumping Station Engineer Name Role Phone Regino Rizvi Primary Care Provider [phone] REASON FOR VISIT review labs Medications Medication SIG (Take, Route, Fr equency, Duration) Notes Start Date End Date Status Furosemide 80 MG 1 tablet Orally in t he morning; Duration: 30 days Active Encounters Encounter Location Date Provider Diagnosis [facility] [address] [place] [address] 08/03/2025 Regino Rizvi Chronic kidney disease, stage 3b N18.32 Assessments Encounter Date Diagnosis (ICD Code) Assessment Notes Treatment Notes Treatment Clinical Notes Section Notes 08/03/2025 Chronic kidney disease, stage 3b (ICD-10 - N18.32) Plan Of Treatment Medication Medication Name Sig Start Date Stop Date Notes Entresto 24-26 MG 1 tablet Orally Twice a day 04/02/2025 Furosemide 80 MG 1 tablet Orally in t he morning; Duration: 30 days Pending Test Test Name Order Date CMP - Comprehensive Metabolic Panel 07/13 Next Appt Details Provider Name:Regino Rizvi, 11:00:00 AM, [address] [place], [address], Progress Notes * Inez JUAREZDOB:1940 (85 yo F)Acc No.[id number]:08/03/2025 Patient: Sybil Inez JUAREZ :1940 A ge:85 Y S ex:Female Address:[address], [place] [address] * Refills Stop Entresto Tablet, 24-26 MG, Orally, 1 tablet, Twice a day Refill Furosemide Tablet, 80 MG, Orally, 30 Tablet, 1 tablet, in the morning, 30 days, Refills=11 Subjective: * Chief Complaints: * R eview labs * Medical History: * Surgical History: * Hospitalization/Major Diagno stic Procedure: * Medications: Objective: * Vitals: * Physical Examination: Assessment: * Assessment: 1. C hronic kidney disease, stage 3b - N18.32 (Primary) Plan: * Treatment: 2.?Others? Stop Entresto Tablet, 24-26 MG, 1 tablet, Orally, Twice a day;?Refill Furosemide Tablet, 80 MG, 1 tablet, Orally, in the morning, 30 days, 30 Tablet, Refills 11.?? * Procedure Codes: * true * Date: Generated for Minda olivares/Roland/Maycolsmitting on: 11:41 AM EDT
--- OUTSIDE RECORDS SUMMARY | 2025-08-12 11:42 | XMS_ITS | Encounter Summary ---
Author Organization [facility] Address [address] [place] [address] Care Team Prov[address] Care Road Marker Name Role Phone Yoel Rizvi MD Primary Care Provider [phone] Reason for Visit * Reason Comments Med Refill Encounter Details Date Type Department Care Team (Late st Contact Info) Description 05/15/2023 Refill [facility] [address] [place] [id number] Mitch Jc MD [address] [facility] [place] [address] Essential hypertension; Edema, unspecified type [...] Description 08/27/2025 1:00 PM EDT Office Visit [facility] at [facility] [address] [place] [address] Mitch Jc MD [address] [facility] [place] [address] documented as of this encounter Visit Diagnoses Diagnosis Essential hypertension Unspecified essential hypertension Edema, unspecified type documented in this encounter Care Teams Road Marker Relationship Specialty Start Date End Date Yoel Rizvi MD [address] [facility] [address] PCP - General 10/22/22 documented as of this encounter
--- OUTSIDE RECORDS SUMMARY | 2025-08-12 11:42 | XMS_ITS | Clinical Summary ---
Author Organization [facility] Address [address] [place] [address] Care Team Providers Care Esl Professor Name Role Phone Yoel Rizvi MD Primary Care Provider [phone] Allergies No known active allergies Medications albuterol [...] Type Department Care Team Description 08/04/2025 Telephone [facility] [place] [address] [place] [address] Mariola Pascual MA 08/03/2025 Orders Only [facility] [address] [place] [facility] [address] Ericka Grover MA Longstanding persistent atrial fibrillation (CMS/HCC) (Primary Dx) 07/15/2025 Refill [facility] [address] [place] [facility] [address] Mitch Jc MD Chronic diastolic congestive heart failure (CMS/HCC) 06/29/2025 Orders Only [facility] [address] [place] [facility] [address] Ericka Grover MA Pulmonary hypertension (CMS/HCC) (Primary Dx) 06/28/2025 1:45 PM EDT Office Visit [facility] [address] [place] [facility] [address] Mitch Jc MD Pulmonary hypertension (CMS/HCC) (Primary Dx); Chronic diastolic congestive heart failure (CMS/HCC); Longstanding persistent atrial fibrillation (CMS/HCC); Essential hypertension; Non-rheumatic mitral regurgitation; Nonrheumatic tricuspid valve regurgitation; Chronic kidney disease, stage 4 (severe) (CMS/HCC) 06/10/2025 Orders Only [facility] [address] [place] [facility] [address] Provider, MD Estefany from Last 3 Months [...] Description 08/27/2025 1:00 PM EDT Office Visit [facility] at [facility] [address] [place] [address] Mitch Jc MD [address] [facility] [place] [address] Health Maintenance Due Date Last [...] Months Insurance [employer] MED[employer]ARE Care Teams Esl Professor Relationship Specialty Start Date End Date Yoel Rizvi MD [address] [facility] [address] [address] PCP - General 10/22/22
--- OUTSIDE RECORDS SUMMARY | 2025-08-12 11:42 | XMS_ITS | Encounter Summary ---
Author Organization [facility] Address [address] [place] [address] Care Team Providers Care Associate Product Integrity Engineer Name Role Phone Yoel Rizvi MD Primary Care Provider [phone] Encounter Details Date Type Department Care Team (Late st Contact Info) Description 08/04/2025 Telephone [facility] Heart at [facility] [address] [place] [address] Mariola Pascual MA Social History [...] Description 08/27/2025 1:00 PM EDT Office Visit [facility] Heart [facility] [address] [place] [phone] Mitch Jc MD [address] [facility] [address] [facility] [place] [address] documented as of this encounter Visit Diagnoses Not on filedocumented in this encounter Care Teams Associate Product Integrity Engineer Relationship Specialty Start Date End Date Yoel Rizvi MD [address] [facility] [address] [address] PCP - General 10/22/22 documented as of this encounter
--- OUTSIDE RECORDS SUMMARY | 2025-08-12 11:42 | XMS_ITS | Encounter Summary ---
Author Organization [facility] Address [address] [place] [address] Care Team Providers Care Home Energy Rater Name Role Phone Yoel Rizvi MD Primary Care Provider [phone] Encounter Details Date Type Department Care Team (Late st Contact Info) Description 08/03/2025 Orders Only [address] [address] Ericka Grover MA Longstanding persistent [...] Description 08/27/2025 1:00 PM EDT Office Visit [facility] [address] [place] [address] Mitch Jc MD [address] [facility] [place] [address] Scheduled Orders Name Type Priority Associated Diagnoses Orde r Schedule CBC and differential Lab Routine Longstanding persistent atrial fibrillation (CMS/HCC) Expected: 08/03/2025 (Approximate), Expires: 08/03/2026 documented as of this encounter Visit Diagnoses Diagnosis Longstanding persistent atrial fibrillation (CMS/HCC)- Primary documented in this encounter Care Teams Home Energy Rater Relationship Specialty Start Date End Date Yoel Rizvi MD [address] [facility] [place] [address] [address] PCP - General 10/22/22 documented as of this encounter
--- OUTSIDE RECORDS SUMMARY | 2025-08-12 11:42 | XMS_ITS | Patient Health Record ---
Author Organization [facility] in [place] Address [address] [place] [address] Care Team Providers Care Supervisor Blood Donor Recruiters Name Role Phone Regino Tierney Primary Care Provider Allergies Allergen (clinical drug ingredient) Drug/Non Drug Allergy documented on EMR Reaction Allergy Type Onset Date Status atorvastatin Atorvastatin Calcium Unknown Drug Allergy Active Results Component Value Reference Range Notes Prothrombin Time INR Reviewed date:09/03/2024 07:52:19 PM Interpretation: Performing Lab: Notes/Report: [facility] , Prothrombin Time 16.2 9.0-11.6 sec INR 1.60 DESIRED INR: 2.0-3.0 CONDITIONS NOT LISTED BELOW 2.5-3.5 FOR PROSTHETIC HEART VALVE REPLACEMENT 2.5-3.5 RECURRENT THROMBOSIS Performing Lab: see note - [facility] Prothrombin Time INR Reviewed date:10/06/2024 06:10:24 PM Interpretation: Performing Lab: Notes/Report: [facility] , Prothrombin Time 23.0 9.0-11.6 sec INR 2.36 DESIRED INR: 2.0-3.0 CONDITIONS NOT LISTED BELOW 2.5-3.5 FOR PROSTHETIC HEART VALVE REPLACEMENT 2.5-3.5 RECURRENT THROMBOSIS Performing Lab: see note - [facility] LB Prothrombin Time INR Reviewed date:12/10/2024 10:12:40 PM Interpretation: Performing Lab: Notes/Report: [facility] , Prothrombin Time 30.3 9.0-11.6 sec INR 3.21 DESIRED INR: 2.0-3.0 CONDITIONS NOT LISTED BELOW 2.5-3.5 FOR PROSTHETIC HEART VALVE REPLACEMENT 2.5-3.5 RECURRENT THROMBOSIS Performing Lab: see note - [facility] LB Prothrombin Time INR Reviewed date:01/08/2025 01:04:10 PM Interpretation: Performing Lab: Notes/Report: [facility] , Prothrombin Time 33.7 9.0-11.6 sec INR 3.61 DESIRED INR: 2.0-3.0 CONDITIONS NOT LISTED BELOW 2.5-3.5 FOR PROSTHETIC HEART VALVE REPLACEMENT 2.5-3.5 RECURRENT THROMBOSIS Performing Lab: see note ML - [facility] Prothrombin Time INR Reviewed date:02/04/2025 09:05:01 PM Interpretation: Performing Lab: Notes/Report: [facility] , Prothrombin Time 32.9 9.0-11.6 sec INR 3.52 DESIRED INR: 2.0-3.0 CONDITIONS NOT LISTED BELOW 2.5-3.5 FOR PROSTHETIC HEART VALVE REPLACEMENT 2.5-3.5 RECURRENT THROMBOSIS Performing Lab: see note ML - [facility] Prothrombin Time INR Reviewed date:02/14/2025 04:04:25 PM Interpretation: Performing Lab: Notes/Report: [facility] , Prothrombin Time 41.0 9.0-11.6 sec RESULTS GEORGE LED TO DR. TIERNEY INR 4.[address] TIERNEY DESIRED INR: 2.0-3.0 CONDITIONS NOT LISTED BELOW 2.5-3.5 FOR PROSTHETIC HEART VALVE REPLACEMENT 2.5-3.5 RECURRENT THROMBOSIS Performing Lab: see note ML - [facility] Prothrombin Time INR Reviewed date:02/17/2025 01:09:11 PM Interpretation: Performing Lab: Notes/Report: [facility] , Prothrombin Time 18.8 9.0-11.6 sec INR 1.89 DESIRED INR: 2.0-3.0 CONDITIONS NOT LISTED BELOW 2.5-3.5 FOR PROSTHETIC HEART VALVE REPLACEMENT 2.5-3.5 RECURRENT THROMBOSIS Performing Lab: see note ML - [facility] Prothrombin Time INR Reviewed date:06/09/2025 11:19:34 PM Interpretation: Performing Lab: Notes/Report: [facility] , Prothrombin Time 29.5 9.0-11.6 sec INR 3.11 DESIRED INR: 2.0-3.0 CONDITIONS NOT LISTED BELOW 2.5-3.5 FOR PROSTHETIC HEART VALVE REPLACEMENT 2.5-3.5 RECURRENT THROMBOSIS Performing Lab: see note ML - [facility] LB CA echo doppler complete Reviewed date:06/09/2025 11:19:34 PM Interpretation: Performing Lab: Notes/Report: Source Facility: [facility]-[address] [place] [address] [place] [address] Cardiology Report Signed Patient: FABY JUAREZ MR#: [id number] : 1940 Acct:[id number] Age/Sex: 85 / F ADM Date: 06/09/25 Loc: CARD Attending Dr: MITCH JC Ordering Physician: MITCH JC Date of Service: 06/09/25 Procedure(s): CA echo doppler complete Accession Number(s): [id number] cc: Yoel Tierney M.D.; MITCH JC Patient Name: FABY JUAREZ MR#: [id number] : 1940 Exam Date: 06/09/2025 Ordering Doctor: DR MITCH JC M.D. ECHOCARDIOGRAM REPORT PROCEDURE: CA ECHO DOPPLER COMPLETE INDICATIONS: Pulmonary hypertension COMPARISON: None. DESCRIPTION: COMPLETE ECHOCARDIOGRAM Real-time transthoracic echocardiography with 2D, M-mode, spectral and color flow Doppler performed. QUALITY: Technical quality was good. LEFT VENTRICLE: Normal chamber size. Normal left ventricular wall thickness. Normal systolic function. The septum is abnormal in motion compatible with right ventricular pressure and/or volume overload. LV EF: Normal left ventricular ejection fraction, (65%). DIASTOLIC: Grade III diastolic dysfunction. ATRIAL SEPTUM: Visually appears intact. LEFT ATRIUM: Severe dilatation. RIGHT ATRIUM: Severe dilatation. RIGHT VENTRICLE: Moderate dilatation. Decreased right ventricular systolic function. TRICUSPID VALVE: Normal mobility and thickness. No stenosis with moderate regurgitation. Doppler studies reveal severely (>60) elevated right sided pressures. RVSP 96 mmHg MITRAL VALVE: Mildly thickened with normal mobility. No evidence of mitral valve stenosis. There is no mitral annular calcification. Mild mitral regurgitation. AORTIC VALVE: Normal trileaflet appearance. Mildly calcified aortic valve. Mildly diminished mobility. Doppler velocity suggest mild aortic valve stenosis [mean gradient 11 mmHg, peak velocity 2.31 m/s]. No aortic regurgitation. AORTIC ROOT: Normal diameter and appearance, measuring 2.7 cm. PULMONIC VALVE: Normal thickness and mobility. No stenosis. Trivial regurgitation. PERICARDIUM: No evidence of pericardial effusion. IVC: IVC is dilated (2.2 cm), does not fully collapse. PLEURA: CONCLUSION: 1. Normal left ventricular size and systolic function. Estimated LVEF is 65%. 2. Moderately dilated right ventricle with reduced systolic function. 3. Grade III diastolic dysfunction. 4. Severe biatrial dilatation. 5. Mild aortic stenosis. 6. Mild mitral regurgitation. 7. Moderate tricuspid regurgitation. 8. Severely elevated right sided pressures. RVSP 96 mmHg. Adult Echocardiography Procedure Report Left Ventricle LVEDD (3.7 - 5.6 cm): 4.45 cm LVESD (2.2 - 4.0 cm): 3.21 cm LVIVS thickness (0.6 - 1.2 cm): 1.00 cm LVPW thickness (0.5 - 1.0 cm): 0.78 cm e': 0.09 m/s E - e': 13.74 LVOT Max Gradient: 2.38 mm[Hg] LVOT Area (cm2): 0.77 m/s Peak Velocity (LVOT): 0.77 m/s Mean Velocity (LVOT): 0.57 m/s LVOT Diameter 2.05 cm Left Ventricular Ejection Fraction: 65 % Left Atrium LA Volume Index (2D A2C): 82.86 ml/m2 Left Atrium Systolic Dimension: 4.67 cm Mitral Valve MV E to A Ratio: 3.37 Mitral Valve A-Wave Peak Velocity: 0.38 m/s Mitral Valve E-Wave Peak Velocity: 1.28 m/s Right Ventricle Aorta AO Root Diam: 2.68 cm Aortic Valve AoV Area (Peak Mark): 1.10 cm2, 1.32 cm2 AoV Area (VTI): 1.16 cm2, 1.60 cm2 Peak Velocity(Antegrade Flow): 1.93 m/s, 2.31 m/s Peak Gradient(Antegrade Flow): 14.91 mm[Hg], 21.38 mm[Hg] Mean Velocity(Antegrade Flow): 1.32 m/s, 1.47 m/s Mean Gradient(Antegrade Flow): 7.87 mm[Hg], 10.71 mm[Hg] Velocity Time Integral: 46.63 cm, 64.41 cm Tricuspid Valve Peak Velocity (Regurgitant Flow): 3.74 m/s, 4.49 m/s Pulmonic Valve Peak Velocity: 1.00 m/s Peak Gradient: 4.01 mm[Hg] Right Atrium Right Atrium Systolic Pressure: 176.70 ml, 176.70 ml Dictated by: Mitch Jc M.D. on 06/09/2025 at 18:55 Approved by: Mitch Jc M.D. on 06/09/2025 at 19:14 Dictated By: MITCH JC Signed By: 06/09/251914 DD/ 13 TD/TT: Coil Tier: Prothrombin Time INR Reviewed date:07/08/2025 06:04:24 PM Interpretation: Performing Lab: Notes/Report: [facility] , Prothrombin Time 23.5 9.0-11.6 sec INR 2.42 DESIRED INR: 2.0-3.0 CONDITIONS NOT LISTED BELOW 2.5-3.5 FOR PROSTHETIC HEART VALVE REPLACEMENT 2.5-3.5 RECURRENT THROMBOSIS Performing Lab: see note ML - [facility] LB CBC AUTO DIFF Reviewed date:08/03/2025 05:42:47 PM Interpretation: Performing Lab: Notes/Report: [facility] , White Blood Count 6.9 4.0-11.0 10 3/uL Red Blood Count 4.21 4.20-5.40 10 6/uL Hemoglobin 11.2 12.0-16.0 g/dL Hematocrit 36.1 36.0-48.0 % Mean Corpuscular Volume 85.7 81.0-99.0 fL Mean Corpuscular Hemoglobin 26.6 26.7-34.0 pg Mean Corpuscular HGB Conc 31.0 29.9-35.2 g/dL Red Cell Distribution Width 17.2 11.0-15.0 % Platelet Count 237 150-450 10 3/uL Mean Platelet Volume 9.0 9.5-13.5 fL Neutrophils Percent Auto 69.3 43.0-75.0 % Lymphocytes Percent Auto 17.0 20.5-60.0 % Monocytes Percent Auto 8.1 1.7-12.0 % Eosinophils Percent Auto 4.6 0.9-7.0 % Basophils Percent Auto 0.6 0.2-2.0 % Immature Granulocytes Pct Auto 0.4 0.0-0.5 % Neutrophils Absolute Auto 4.8 1.4-6.5 10 3/uL Lymphocytes Absolute Auto 1.2 1.2-3.8 10 3/uL Monocytes Absolute Auto 0.6 0.3-0.8 10 3/uL Eosinophils Absolute Auto 0.3 0.0-0.7 10 3/uL Basophils Absolute Auto 0.0 0.0-0.1 10 3/uL Immature Granulocytes Abs Auto 0.03 0.00-0.03 10 3/uL Performing Lab: see note ML - [facility] LB LIVER PROFILE Reviewed date:08/03/2025 05:42:47 PM Interpretation: Performing Lab: Notes/Report: [facility] , Bilirubin Total 0.5 0.2-1.0 mg/dL Bilirubin Direct 0.2 0.0-0.2 mg/dL Aspartate Amino Transferase 14 15-37 U/L Alanine Aminotransferase 16 14-59 U/L Alkaline Phosphatase 68 46-116 U/L Total Protein 7.8 6.4-8.2 g/dL Albumin Level 3.4 3.4-5.0 g/dL Globulin 4.4 Albumin Globulin Ratio 0.8 Performing Lab: see note ML - [facility] PROF CHEM 8 (BAS METB) Reviewed date:08/03/2025 05:42:47 PM Interpretation: Performing Lab: Notes/Report: [facility] , Sodium 141 136-145 mmol/L Potassium 4.3 3.5-5.1 mmol/L Chloride 104 98-107 mmol/L Carbon Dioxide 27.4 21.0-32.0 mmol/L Anion Gap 13.9 Glucose 85 74-106 mg/dL Blood Urea Nitrogen 37.0 7.0-18.0 mg/dL Creatinine 2.33 0.55-1.02 mg/dL Estimated GFR ( Oralia 24 >=60 mL/min/1.73m 2 Estimated GFR (Non- Caitlyn 20 >=60 mL/min/1.73m 2 BUN Creatinine Ratio 15.9 Calcium 8.5 8.5-10.1 mg/dL Performing Lab: see note - [facility] CBC AUTO DIFF Reviewed date:08/05/2025 06:10:22 PM Interpretation: Performing Lab: Notes/Report: [facility] , White Blood Count 5.3 4.0-11.0 10 3/uL Red Blood Count 3.75 4.20-5.40 10 6/uL Hemoglobin 10.3 12.0-16.0 g/dL Hematocrit 32.7 36.0-48.0 % Mean Corpuscular Volume 87.2 81.0-99.0 fL Mean Corpuscular Hemoglobin 27.5 26.7-34.0 pg Mean Corpuscular HGB Conc 31.5 29.9-35.2 g/dL Red Cell Distribution Width 17.2 11.0-15.0 % Platelet Count 186 150-450 10 3/uL Mean Platelet Volume 8.4 9.5-13.5 fL Neutrophils Percent Auto 64.2 43.0-75.0 % Lymphocytes Percent Auto 19.8 20.5-60.0 % Monocytes Percent Auto 8.3 1.7-12.0 % Eosinophils Percent Auto 6.6 0.9-7.0 % Basophils Percent Auto 0.9 0.2-2.0 % Immature Granulocytes Pct Auto 0.2 0.0-0.5 % Neutrophils Absolute Auto 3.4 1.4-6.5 10 3/uL Lymphocytes Absolute Auto 1.1 1.2-3.8 10 3/uL Monocytes Absolute Auto 0.4 0.3-0.8 10 3/uL Eosinophils Absolute Auto 0.4 0.0-0.7 10 3/uL Basophils Absolute Auto 0.1 0.0-0.1 10 3/uL Immature Granulocytes Abs Auto 0.01 0.00-0.03 10 3/uL Performing Lab: see note - [facility] Prothrombin Time INR Reviewed date:05/06/2025 07:26:51 PM Interpretation: Performing Lab: Notes/Report: [facility] , Prothrombin Time 24.0 9.0-11.6 sec INR 2.48 DESIRED INR: 2.0-3.0 CONDITIONS NOT LISTED BELOW 2.5-3.5 FOR PROSTHETIC HEART VALVE REPLACEMENT 2.5-3.5 RECURRENT THROMBOSIS Performing Lab: see note - [facility] LB Prothrombin Time INR Reviewed date:04/01/2025 08:37:50 PM Interpretation: Performing Lab: Notes/Report: [facility] , Prothrombin Time 21.5 9.0-11.6 sec INR 2.19 DESIRED INR: 2.0-3.0 CONDITIONS NOT LISTED BELOW 2.5-3.5 FOR PROSTHETIC HEART VALVE REPLACEMENT 2.5-3.5 RECURRENT THROMBOSIS Performing Lab: see note ML - [facility] LB VITAMIN D 25 [place] Reviewed date:04/01/2025 08:37:50 PM Interpretation: Performing Lab: Notes/Report: [facility] , Vitamin D 55.4 <20 ng/mL Vit D deficient 20-<30 ng/mL Vit D insufficient 30-100 ng/mL Vit D sufficient >100 ng/mL Potential Toxicity Performing Lab: see note ML - [facility] LB TSH Reviewed date:04/01/2025 08:37:50 PM Interpretation: Performing Lab: Notes/Report: [facility] , Thyroid Stimulating Hormone 3.807 0.358-3.740 u IU/mL Performing Lab: see note - [facility] LB T4 Reviewed date:04/01/2025 08:37:50 PM Interpretation: Performing Lab: Notes/Report: [facility] , T4 Thyroxine 5.80 4.80-13.90 ug/dL Performing Lab: see note - [facility] LB PROF 14(COMP METB) Reviewed date:04/01/2025 08:37:50 PM Interpretation: Performing Lab: Notes/Report: [facility] , Sodium 142 136-145 mmol/L Potassium [...] Lab: see note ML - [facility] LB LIPID PROFILE Reviewed date:04/01/2025 08:37:50 PM Interpretation: Performing Lab: Notes/Report: [facility] , Triglycerides 97 <=150 mg/dL Cholesterol [...] RISK Performing Lab: see note ML - [facility] LB IRON Reviewed date:04/01/2025 08:37:50 PM Interpretation: Performing Lab: Notes/Report: [facility] , Iron 32.0 50.0-170.0 ug/dL Performing Lab: see note ML - [facility] LB GLYCOHEMOGLOBIN A1C Reviewed date:04/01/2025 08:37:50 PM Interpretation: Performing Lab: Notes/Report: [facility] , Glycohemoglobin A1C 5.6 4.5-6.2 % ADA RECOMMENDED LIMIT 4.0 - 6.0 ADA THERAPEUTIC TARGET < 7.0 ACTION SUGGESTED > 7.0 Estimated Average Glucose 114 Performing Lab: see note ML - [facility] FREE T3 Reviewed date:04/01/2025 08:37:50 PM Interpretation: Performing Lab: Notes/Report: [facility] , Free T3 2.64 2.18-3.98 pg/mL Performing Lab: see note ML - [facility] LB CBC AUTO DIFF Reviewed date:04/01/2025 08:37:50 PM Interpretation: Performing Lab: Notes/Report: [facility] , White Blood Count 5.6 4.0-11.0 [...] 0.00-0.03 10 3/uL Performing Lab: see note - [facility] BNP Reviewed date:04/01/2025 08:37:50 PM Interpretation: Performing Lab: Notes/Report: [facility] , NT Pro B Type Natriuretic Pept 2255.0 <=1800.0 pg/mL RESULTS CALLED TO codey long lpn Performing Lab: see note - [facility] Prothrombin Time INR Reviewed date:11/09/2024 08:40:25 PM Interpretation: Performing Lab: Notes/Report: [facility] , Prothrombin Time 27.7 9.0-11.6 sec INR 2.90 DESIRED INR: 2.0-3.0 CONDITIONS NOT LISTED BELOW 2.5-3.5 FOR PROSTHETIC HEART VALVE REPLACEMENT 2.5-3.5 RECURRENT THROMBOSIS Performing Lab: see note [facility] Prothrombin Time INR Reviewed date:08/05/2025 06:10:22 PM Interpretation: Performing Lab: Notes/Report: [facility] , Prothrombin Time 29.8 9.0-11.6 sec INR 3.15 DESIRED INR: 2.0-3.0 CONDITIONS NOT LISTED BELOW 2.5-3.5 FOR PROSTHETIC HEART VALVE REPLACEMENT 2.5-3.5 RECURRENT THROMBOSIS Performing Lab: see note ML - [facility] PROF 14(COMP METB) Reviewed date:08/05/2025 06:10:22 PM Interpretation: Performing Lab: Notes/Report: [facility] , Sodium 142 136-145 mmol/L Potassium 4.3 3.5-5.1 mmol/L Chloride 105 98-107 mmol/L Carbon Dioxide 26.6 21.0-32.0 mmol/L Anion Gap 14.7 Glucose 87 74-106 mg/dL Blood Urea Nitrogen 41.0 7.0-18.0 mg/dL Creatinine 2.41 0.55-1.02 mg/dL Estimated GFR ( Oralia 23 >=60 mL/min/1.73m 2 Estimated GFR (Non- Caitlyn 19 >=60 mL/min/1.73m 2 BUN Creatinine Ratio 17.0 Calcium 8.4 8.5-10.1 mg/dL Bilirubin Total 0.4 0.2-1.0 mg/dL Aspartate Amino Transferase 17 15-37 U/L Alanine Aminotransferase 16 14-59 U/L Alkaline Phosphatase 63 46-116 U/L Total Protein 7.4 6.4-8.2 g/dL Albumin Level 3.3 3.4-5.0 g/dL Globulin 4.1 Albumin Globulin Ratio 0.8 Performing Lab: see note ML - [facility] Reason For Referral No Information Medications Medication SIG (Take, Route, Frequency, Duration) Notes Start Date End Date Status CVS Iron 325 (65 Fe) MG 1 tablet Orally BID Active Furosemide 80 MG 1 tablet Orally in t he morning; Duration: 30 days Active Xanax 0.25 MG 1 tablet Orally Twic e a day; Duration: 30 days F41.9 02/02/2025 Active Lansoprazole 30 MG TAKE 1 CAPSULE BY [facility] DAILY; Duration: 90 days Active Warfarin Sodium 5 MG 1 tablet Orally Onc e daily; Duration: 90 days Active Citalopram Hydrobromide 40 MG 1 tablet Orally Once a day; Duration: 90 days Active Macitentan 10 MG 1 tablet Orally Once a day; Duration: 30 days 06/30/2025 Active Aspirin 81 81 MG 1 tablet Orally Once a day Active amLODIPine Besylate 10 MG 1 tablet Orall y Once a day Active Vitamin D3 50 MCG (1999 UT) 1 capsule Or ally Once a day; Duration: 90 days 02/28/2023 Active Sildenafil Citrate 20 MG 1 tablet Orally three times daily Active Pravastatin Sodium 20 MG TAKE 1 TABLET D AILY; Duration: 90 Active Alendronate Sodium 70 MG TAKE 1 TABLET B Y MOUTH WEEKLY; Duration: 84 Active Albuterol Sulfate HFA 108 (90 Base) MCG/ACT USE 2 INHALATIONS BY MOUTH 4 TIMES DAILY; Duration: 90 Active Metoprolol Succinate ER 25 MG 1/2 tablet Orally Once a day Active Klor-Con M10 10 MEQ 1 tablet with food O rally once daily Active Allopurinol 100 MG take 1 tablet by once daily; Duration: 30 Active Fish Oil Hendley-3 1000 MG 1 capsule Orall y Once [...] Problem Status W/U Status Risk Notes Problem Essential hypertension (61045713) Essential (primary) hypertension (I10) Active confirmed Problem Cardiomegaly (2115880) Cardiomegaly (I51.7) Active confirmed Problem Heart disease (disorder) (94470729) Other ill-defined heart diseases (I51.89) Active confirmed Problem Abnormal results of cardiovascular function studies (341467107) Abnormal result of cardiovascular function study, unspecified (R94.30) Active confirmed Problem Fatigue (82738468) Fatigue (R53.83) Active confirmed Problem Senile osteoporosis (45594898) 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) Active confirmed Problem Hyperlipidemia (76251848) Hyperlipidemia (E78.5) Active confirmed Problem Mitral regurgitation (09844408) Mitral regurgitation (I34.0) Active confirmed Problem Bradycardia (68930814) Bradycardia, sinus (R00.1) Active confirmed Problem Tricuspid regurgitation (335093504) Tricuspid regurgitation (I07.1) Active confirmed Problem Aortic valve disorder (8203283) Aortic stenosis (I35.0) Active confirmed Problem Left ventricular hypertrophy (60753709) Left ventricular hypertrophy (I51.7) Active confirmed Problem Diastolic heart failure (735970235) Diastolic heart failure (I50.30) Active confirmed Problem Gout (96556915) Gout (M10.9) Active confirmed Problem Hiatal hernia (79163508) Hiatal hernia (K44.9) Active confirmed Problem Ankle pain (039609881) Ankle pain (M25.579) Active confirmed Problem Chronic diastolic heart failure (507847832) Chronic diastolic (congestive) heart failure (I50.32) Active confirmed Problem Glaucoma (56082957) Glaucoma (H40.9) Active confirmed Problem Polyp of colon (disorder) (62380389) Colon polyps (K63.5) Active confirmed Problem Overweight (062357283) Over weight (E66.3) Active confirmed Problem Iron deficiency anemia (91440471) Anemia, iron deficiency (D50.9) Active confirmed Problem Recurrent falls (658310186) Recurrent falls (R29.6) Active confirmed Problem Ankle edema (73172376) Ankle edema (R60.0) Active confirmed Problem Diverticular disease (438894086) Diverticular disease (K57.90) Active confirmed Problem Fibrocystic breast changes (03921263) Fibrocystic breast disease (N60.19) Active confirmed Problem Gastro-esophageal reflux disease (044495863) Gastro-esophageal reflux disease (K21.9) Active confirmed Problem At risk for falls (665700056) At risk for falls (Z91.81) Active confirmed Problem Cardiomegaly (2877343) Atrial enlargement, left (I51.7) Active confirmed Problem Generalized anxiety disorder (77526917) Anxiety neurosis (F41.1) Active confirmed Problem Long-term current use of anticoagulant (339983712) Current use of anticoagulant therapy (Z79.01) Active confirmed Problem History of macrocytic anemia (Z86.2) Active confirmed Problem Pulmonary hypertension (43251478) Pulmonary hypertension (I27.20) Active confirmed Problem Pulmonary hypertension (85979200) Pulmonary hypertension, unspecified (I27.20) Active confirmed Problem Chronic atrial fibrillation (580988143) Chronic atrial fibrillation (I48.20) Active confirmed Problem Longstanding persistent atrial fibrillation (883347359) Longstanding persistent atrial fibrillation (I48.11) Active confirmed Problem Chronic kidney disease stage 3 (disorder) (684996891) Chronic kidney disease, stage 3 unspecified (N18.30) Active confirmed Problem Chronic kidney disease stage 3B (disorder) (446641647) Chronic kidney disease, stage 3b (N18.32) Active confirmed Problem Cardiomegaly (1440844) Atrial enlargement, right (I51.7) Active confirmed Problem Pericardial effusion (173399285) Pericardial effusion (I31.39) Active confirmed Vital Signs Blood pressure diastolic 52 mm Hg 03/09/2025 Height 57 in 03/09/2025 Blood pressure systolic 134 mm Hg 03/09/2025 Weight 135.2 lbs 03/09/2025 BMI 29.25 kg/m2 03/09/2025 Procedures Procedure Date Ordered Date Performed Result Body Sit e EAR IRRIGATION - performed 03/09/2025 N/A Encounters Encounter Location Date Provider Diagnosis [facility] [address] [place] [address] 08/28/2024 Regino Tierney Hyperlipidemia E78.5 ; Diastolic heart failure I50.30 ; Pulmonary hypertension I27.20 and Essential (primary) hypertension I10 [address] [address] 03/09/2025 Regino Tierney Diastolic heart fail ure I50.30 ; Chronic atrial fibrillation I48.20 ; Hyperlipidemia E78.5 ; Chronic diastolic (congestive) heart failure I50.32 ; Essential (primary) hypertension I10 and Impacted cerumen of right ear H61.21 [facility] [address] [place] [address] 09/03/2024 Regino Tierney [facility] [address] [place] [address] 09/08/2024 Regino Tierney [facility] [address] [place] [address] 10/06/2024 Regino Tierney [facility] [address] [place] [address] 11/09/2024 Regino Magdielchristine [facility] [address] [place] [address] 12/10/2024 Regino Tierney Aortic stenosis I35. 0 and Longstanding persistent atrial fibrillation I48.11 [facility] [address] [place] [address] 12/10/2024 Regino Tierney [facility] [address] [place] [address] 01/08/2025 Regino Tierney [facility] [address] [place] [address] 02/02/2025 Regino Tierney Diastolic heart fail ure I50.30 [facility] [address] [place] [address] 02/04/2025 Regino Tierney [facility] [address] [place] [address] 02/14/2025 Regino Tierney [facility] [address] [place] [address] 02/15/2025 Regino Tierney [facility] [address] [place] [address] 02/17/2025 Regino Tierney [facility] [address] [place] [address] 04/01/2025 Regino Tierney [facility] [address] [place] [address] 04/13/2025 Regino Tierney [facility] [address] [place] [address] 05/06/2025 Regino Tierney [facility] [address] [place] [address] 06/09/2025 Regino Tierney [facility] [address] [place] [address] 06/11/2025 Regino Tierney [facility] [address] [place] [address] 06/21/2025 Regino Tierney Hyperlipidemia E78.5 [facility] [address] [place] [address] 06/30/2025 Regino Tierney [facility] [address] [place] [address] 07/08/2025 Regino Velozy [facility] [address] [place] [address] 08/03/2025 Regino Tierney Chronic kidney disea se, stage 3b N18.32 [facility] [address] [place] [address] 08/05/2025 Regino Tierney Cardiomegaly I51.7 a nd Abnormal kidney function study R94.4 Assessments Encounter Date Diagnosis (ICD Code) Assessment Notes Treatment Notes Treatment Clinical Notes Section Notes 08/28/2024 Hyperlipidemia (ICD-10 - E78.5) 08/28/2024 Diastolic heart failure (ICD-10 - I50.30) 03/09/2025 Diastolic heart failure (ICD-10 - I50.30) 03/09/2025 Chronic atrial fibrillation (ICD-10 - I48.20) 12/10/2024 Aortic stenosis (ICD-10 - I35.0) 12/10/2024 Longstanding persistent atrial fibrillation (ICD-10 - I48.11) 02/02/2025 Diastolic heart failure (ICD-10 - I50.30) 06/21/2025 Hyperlipidemia (ICD-10 - E78.5) 08/03/2025 Chronic kidney disease, stage 3b (ICD-10 - N18.32) 08/05/2025 Cardiomegaly (ICD-10 - I51.7) 08/05/2025 Abnormal kidney function study (ICD-10 - R94.4) 03/09/2025 Hyperlipidemia (ICD-10 - E78.5) 08/28/2024 Pulmonary [...] (TOTAL) 02/27/2024 EAR IRRIGATION - performed 03/09/2025 CMP - Comprehensive Metabolic Panel 07/13 BNP 03/09/2025 BNP 02/27/2024 BNP 03/07/2023 CBC AUTO DIFF 03/07/2023 GLYCOHEMOGLOBIN A1C 03/07/2023 IRON 03/07/2023 LIPID PROFILE 03/07/2023 MAGNESIUM 03/07/2023 PROF 14(COMP METB) 03/07/2023 PROF CHEM 8 (BAS METB) 08/05/2025 VITAMIN D 25 [place] 03/07/2023 XR DEXA BONE DENSITY 06/03/2024 THYROID PANEL (T4/TSH/FREE T3) 5 THYROID PANEL (T4/TSH/FREE T3) 3 THYROID PANEL (T4/TSH/FREE T3) 4 PROTIME-INR 12/10/2024 CMP (COMP MET LAMA) w/eGFR CKD-EPI 2024 CBC WITH DIFF 03/09/2025 Next Appt Details Provider Name:Regino Tierney, 11:00:00 AM, [address] [place], [address], Insurance Providers Payer Name Payer Address Payer Phone Subscriber Number Group Number Insured Name Patient Relationship to Insured Coverage Start Date Coverage End Date [facility] [employer] [address] [address] [place] [phone] [id number] Faby Juarez Self - patient is the insured [...] K57.90 Surgical History Surgery Date(Month/Year) Eye surgery [facility] Heart Cath- Dr. Price 10/22/2023 Bilateral Foot surgery
[2025-08-12 13:42] LABS: Anion Gap 15.0; Blood Urea Nitrogen 45.0 mg/dL (7.0-18.0); Calcium 8.6 mg/dL (8.5-10.1); Carbon Dioxide 25.3 mmol/L (21.0-32.0); Chloride 105 mmol/L (98-107); Estimated GFR (African America 22 (>=60 mL/min/1.73m^2); Estimated GFR (Non-African Ame 18 (>=60 mL/min/1.73m^2); Glucose 102 mg/dL (74-106); Potassium 4.3 mmol/L (3.5-5.1); Sodium 141 mmol/L (136-145)
--- OUTSIDE RECORDS SUMMARY | 2025-08-12 18:34 | XMS_ITS | CCD ---
Author Organization [facility] CliniSyoh Care Team Providers Care Clinical Laboratory Director Name Role Phone UNKNOWN, PROVIDER Attending Unavailable [...] BARRERA Admitting Unavailable MOUKARBEL, JENN Attending Unavailable Problems Active Problems Problem Classification Problem Date Documented Da te Episodic/Chronic Cardiac dysrhythmias (5 sources) Unspecified atrial fibrillation; Translations: [UNSPECIFIED ATRIAL FIBRILLATION] Onset: 07-13-2022 Chronic Chronic kidney disease (2 sources) Chronic kidney disease, stage 4 (severe); Translations: [Chronic kidney disease, stage 4 (severe)] Onset: 08-15-2022 Chronic Congestive heart failure; nonhypertensive (7 sources) Chronic [...] 04-16-2022 Episodic Other aftercare (4 sources) 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 Rizvi's office called regarding the [...] this is all ok with you. Thanks. [facility] Office Visiton 06-28-2025 Follow-up visit [id number] Inez Juarez 1940 F Date Provider Department Center 06/28/2025 Rema-JENN PRADO BARBRA Acuña Family History Problem Relation Age of Onset Hypertension Mother Coronary artery disease Father Hypertension Father Family Status - Relation Status Age at Mother Father Level of Service:82880 AL OFFICE/OUTPATIENT ESTABLISHED MOD MDM 30 MIN [facility] Orders Onlyon 06-10-2025 Orders Only [id number] Inez Juarez 1940 Date Provider Department Center 06/10/2025 [id number], HISTORICAL BARBRA Acuña Family History Problem Relation Age of Onset Hypertension Mother Coronary artery disease Father Hypertension Father Family Status - Relation Status Age at Mother Father [facility] BNPon 03-22-2023 Natriuretic peptide B (Bld) [Mass/Vol] 1423.0 pg/mL Normal <=1,800.0 [facility] Comment on above: Performed By: #### B TEACHING AIDE, CMP, TSH, LIPID #### [facility] [address] [address] [address] Reji Thomas CBC AUTO DIFFon 03-22-2023 BASO # 0.1 103/ul Normal 0.0-0.1 [facility] Comment on above: Performed By: #### B MP #### [facility] [address] [place] [address] Dr. Reji Thomas Basophils/100 WBC (Bld) 1.0 % Normal 0.2-2.0 [facility] Comment on above: Performed By: #### B MP #### [facility] [address] [place] [address] Dr. Reji Thomas EO # 0.2 103/ul Normal 0.0-0.7 [facility] Comment on above: Performed By: #### B MP #### [facility] [address] [place] [address] Dr. Reji Thomas Eosinophils/100 WBC (Bld) 3.3 % Normal 0.9-7.0 [facility] Comment on above: Performed By: #### B MP #### [facility] [address] [place] [address] Dr. Reji Thomas Erythrocyte distribution width (RBC) [Ratio] 15.4 % Critically high 11.0-15.0 [facility] Comment on above: Performed By: #### B MP #### [facility] [address] [place] [address] Dr. Reji Thomas Hematocrit (Bld) [Volume fraction] 35.2 % Critically low 36.0-48.0 [facility] Comment on above: Performed By: #### B MP #### [facility] [address] [place] [address] Dr. Reji Thomas Hemoglobin (Bld) [Mass/Vol] 11.4 g/dL Critically low 12.0-16.0 [facility] Comment on above: Performed By: #### B MP #### [facility] [address] [place] [address] Dr. Reji Thomas IG # 0.02 10e3/ul Normal 0.00-0.[address] [facility] Comment on above: Performed By: #### B MP #### [facility] [address] [place] [address] Dr. Reji Thomas IG % 0.3 % Normal 0.0-0.[address] [facility] Comment on above: Performed By: #### B MP #### [facility] [address] [place] [address] Dr. Reji Thomas LYMPH # 1.4 103/ul Normal 1.2-3.[address] [facility] Comment on above: Performed By: #### B MP #### [facility] [address] [place] [address] Dr. Reji Thomas Lymphocytes/100 WBC (Bld) 22.6 % Normal 20.5-60.[address] [facility] Comment on above: Performed By: #### B MP #### [facility] [address] [place] [address] Dr. Reji Thomas MANUAL DIFF REQ NO Normal [facility] Comment on above: Performed By: #### B MP #### [facility] [address] [place] [address] Dr. Reji Thomas MCH (RBC) [Entitic mass] 27.0 pg Normal 26.7-34.[address] [facility] Comment on above: Performed By: #### B MP #### [facility] [address] [place] [address] Dr. Reji Thomas MCHC (RBC) [Mass/Vol] 32.4 g/dL Normal 29.9-35.2 [facility] Comment on above: Performed By: #### B MP #### [facility] [address] [place] [address] Dr. Reji Thomas MCV (RBC) [Entitic vol] 83.2 fL Normal 81.0-99.[address] [facility] Comment on above: Performed By: #### B MP #### [facility] [address] [place] [address] Dr. Reji Thomas MONO # 0.5 103/ul Normal 0.3-0.[address] [facility] Comment on above: Performed By: #### B MP #### [facility] [address] [place] [address] Dr. Reji Thomas Monocytes/100 WBC (Bld) 8.5 % Normal 1.7-12.[address] [facility] Comment on above: Performed By: #### B MP #### [facility] [address] [place] [address] Dr. Reji Thomas NEUT # 4.0 103/ul Normal 1.4-6.5 [facility] Comment on above: Performed By: #### B MP #### [facility] [address] [place] [address] Dr. Reji Thomas Neutrophils/100 WBC (Bld) 64.3 % Normal 43.0-75.[address] [facility] Comment on above: Performed By: #### B MP #### [facility] [address] [place] [address] Dr. Reji Thomas Platelet mean volume (Bld) [Entitic vol] 8.9 fL Critically low 9.5-13.[address] [facility] Comment on above: Performed By: #### B MP #### [facility] [address] [place] [address] Dr. Reji Thomas PLT 226 103/ul Normal 150-450 [facility] Comment on above: Performed By: #### B MP #### [facility] [address] [place] [address] Dr. Reji Thomas RBC 4.23 106/ul Normal 4.20-5.40 [facility] Comment on above: Performed By: #### B MP #### [facility] [address] [place] [address] Dr. Reji Thomas WBC 6.3 103/ul Normal 4.0-11.0 [facility] Comment on above: Performed By: #### B MP #### [facility] [address] [place] [address] Dr. Reji Thomas FREE THYROXINE INDEX T7on FTI 2.40 Normal 1.30-4.[address] [facility] Comment on above: Performed By: #### B TEACHING AIDE, CMP, TSH, LIPID #### [facility] [address] [address] [address] Reji Thomas T3U 32.0 % Normal 30.0-39.[address] [facility] Comment on above: Performed By: #### B TEACHING AIDE, CMP, TSH, LIPID #### [facility] [address] [address] [address] Reji Thomas T4 [Mass/Vol] 7.50 ug/dL Normal 4.80-13.90 [place] Comment on above: Performed By: #### B TEACHING AIDE, CMP, TSH, LIPID #### [facility] [address] [address] [address] Reji Thomas GLYCOHEMOGLOBIN A1Con 2022 ADA RECOMMENDATION SEE BELOW Normal [facility] Comment on above: Result Comment: ADA RECOMMENDED LIMIT 4.0 - 6.0 ADA THERAPEUTIC TARGET < 7.0 ACTION SUGGESTED > 7.0 Performed By: #### B TEACHING AIDE, CMP, TSH, LIPID #### [facility] [address] [address] [address] Reji Thomas Glucose [Mass/Vol] 97 mg/dL Normal [facility] Comment on above: Performed By: #### B TEACHING AIDE, CMP, TSH, LIPID #### [facility] [address] [address] [address] Reji Thomas HbA1c (Bld) [Mass fraction] 5.0 % Normal 4.5-6.[address] [facility] Comment on above: Performed By: #### B TEACHING AIDE, CMP, TSH, LIPID #### [facility] [address] [address] [address] Reji Thomas IRONon 03-22-2023 Iron [Mass/Vol] 47.0 ug/dL Critically low 50.0-170.0 [facility] Comment on above: Performed By: #### B TEACHING AIDE, CMP, TSH, LIPID #### [facility] [address] [address] [address] Reji Thomas LIPID PROFILEon 03-22-2023 CHOL-HDL RATIO NORM SEE BELOW Normal [facility] Comment on above: Result Comment: 3.3 - 4.4 LOW RISK 4.4 - 7.1 AVERAGE RISK 7.1 - 11.0 MODERATE RISK >11.0 HIGH RISK Performed By: #### M G, TSH, LIPID, T7, CMP, BNP #### [facility] [address] [address] [address] Reji Thomas Cholesterol [Mass/Vol] 188 mg/dL Normal <=[address] [facility] Comment on above: Performed By: #### M G, TSH, LIPID, T7, CMP, BNP #### [facility] [address] [address] [address] Reji Thomas Cholesterol in HDL [Mass/Vol] 53 mg/dL Normal 40-[address] [facility] Comment on above: Performed By: #### M G, TSH, LIPID, T7, CMP, BNP #### [facility] [address] [address] [address] Reji Thomas Cholesterol in LDL [Mass/Vol] 111.6 mg/dL Normal [facility] Comment on above: Performed By: #### M G, TSH, LIPID, T7, CMP, BNP #### [facility] [address] [address] [address] Reji Thomas Cholesterol.total/Ch olesterol in HDL [Mass ratio] 3.5 {ratio} Normal [facility] Comment on above: Performed By: #### M G, TSH, LIPID, T7, CMP, BNP #### [facility] [address] [address] [address] Reji Thomas HDL NORMAL > or = 60 mg/dl - LOW CARDIOVASCULAR RISK <40 mg/dl - HIGH CARDIOVASCULAR RISK Normal [facility] Comment on above: Performed By: #### M G, TSH, LIPID, T7, CMP, BNP #### [facility] [address] [place] [address] Dr. Reji Thomas LDL CALC NORMAL SEE BELOW Normal [facility] Comment on above: Result Comment: <100 mg/dl OPTIMAL 100 - 129 mg/dl NEAR OR ABOVE OPTIMAL 130 - 159 mg/dl BORDERLINE HIGH 160 - 189 mg/dl HIGH >190 mg/dl VERY HIGH Performed By: #### M G, TSH, LIPID, T7, CMP, BNP #### [facility] [address] [place] [address] Dr. Reji Thomas Triglyceride [Mass/Vol] 117 mg/dL Normal <=[address] [facility] Comment on above: Performed By: #### M G, TSH, LIPID, T7, CMP, BNP #### [facility] [address] [address] [address] Reji Thomas VLDL CALC 23.4 mg/dL Normal [facility] Comment on above: Performed By: #### M G, TSH, LIPID, T7, CMP, BNP #### [facility] [address] [place] [address] Dr. Reji Thomas MAGNESIUMon 03-22-2023 Magnesium [Mass/Vol] 2.4 mg/dL Normal 1.8-2.[address] [facility] Comment on above: Performed By: #### B TEACHING AIDE, CMP, TSH, LIPID #### [facility] [address] [place] [address] Dr. Reji Thomas PROF 14(COMP METB)on 023 Albumin [Mass/Vol] 3.4 g/dL Normal 3.4-5.0 [facility] Comment on above: Performed By: #### M G, TSH, LIPID, T7, CMP, BNP #### [facility] [address] [place] [address] Dr. Reji Thomas Albumin/Globulin [Mass ratio] 0.8 {ratio} Normal [facility] Comment on above: Performed By: #### M G, TSH, LIPID, T7, CMP, BNP #### [facility] [address] [address] [address] Reji Thomas ALP [Catalytic activity/Vol] 61 U/L Normal 46-116 [facility] Comment on above: Performed By: #### M G, TSH, LIPID, T7, CMP, BNP #### [facility] [address] [address] [address] Reji Thomas ALT [Catalytic activity/Vol] 15 U/L Normal 14-[address] [facility] Comment on above: Performed By: #### M G, TSH, LIPID, T7, CMP, BNP #### [facility] [address] [place] [address] Dr. Reji Thomas Anion gap [Moles/Vol] 13.1 mmol/L Normal [facility] Comment on above: Performed By: #### M G, TSH, LIPID, T7, CMP, BNP #### [facility] [address] [place] [address] Dr. Reji Thomas AST [Catalytic activity/Vol] 13 U/L Critically low 15-[address] [facility] Comment on above: Performed By: #### M G, TSH, LIPID, T7, CMP, BNP #### [facility] [address] [place] [address] Dr. Reji Thomas Bilirubin [Mass/Vol] 0.4 mg/dL Normal 0.2-1.[address] [facility] Comment on above: Performed By: #### M G, TSH, LIPID, T7, CMP, BNP #### [facility] [address] [place] [address] Dr. Reji Thomas Calcium [Mass/Vol] 8.5 mg/dL Normal 8.5-10.1 [facility] Comment on above: Performed By: #### M G, TSH, LIPID, T7, CMP, BNP #### [facility] [address] [place] [address] Dr. Reji Thomas Chloride [Moles/Vol] 106 mmol/L Normal 98-107 [facility] Comment on above: Performed By: #### M G, TSH, LIPID, T7, CMP, BNP #### [facility] [address] [place] [address] Dr. Reji Thomas CO2 [Moles/Vol] 27.6 mmol/L Normal 21.0-32.0 [facility] Comment on above: Performed By: #### M G, TSH, LIPID, T7, CMP, BNP #### [facility] [address] [place] [address] Dr. Reji Thomas Creatinine [Mass/Vol] 2.32 mg/dL Critically high 0.55-1.[address] [facility] Comment on above: Performed By: #### M G, TSH, LIPID, T7, CMP, BNP #### [facility] [address] [place] [address] Dr. Reji Thomas EGFR-AF TURKS AND [place] ISLANDER 24 mL/min/1.73m2 Critically low >=60 [facility] Comment on above: Performed By: #### M G, TSH, LIPID, T7, CMP, BNP #### [facility] [address] [place] [address] Dr. Reji Thomas EGFR-NON AF TURKS AND CA[place] ISLANDER 20 mL/min/1.73m2 Critically low >=60 [facility] Comment on above: Performed By: #### M G, TSH, LIPID, T7, CMP, BNP #### [facility] [address] [place] [address] Dr. Reji Thomas Globulin (S) [Mass/Vol] 4.3 g/dL Normal [facility] Comment on above: Performed By: #### M G, TSH, LIPID, T7, CMP, BNP #### [facility] [address] [place] [address] Dr. Reji Thomas Glucose [Mass/Vol] 88 mg/dL Normal 74-106 [facility] Comment on above: Performed By: #### M G, TSH, LIPID, T7, CMP, BNP #### [facility] [address] [place] [address] Dr. Reji Thomas Potassium [Moles/Vol] 4.7 mmol/L Normal 3.5-5.1 [facility] Comment on above: Performed By: #### M G, TSH, LIPID, T7, CMP, BNP #### [facility] [address] [place] [address] Dr. Reji Thomas Protein [Mass/Vol] 7.7 g/dL Normal 6.4-8.2 [facility] Comment on above: Performed By: #### M G, TSH, LIPID, T7, CMP, BNP #### [facility] [address] [place] [address] Dr. Reji Thomas Sodium [Moles/Vol] 142 mmol/L Normal 136-145 [facility] Comment on above: Performed By: #### M G, TSH, LIPID, T7, CMP, BNP #### [facility] [address] [address] [address] Reij Thomas Urea nitrogen [Mass/Vol] 38.0 mg/dL Critically high 7.0-18.[address] [facility] Comment on above: Performed By: #### M G, TSH, LIPID, T7, CMP, BNP #### [facility] [address] [address] [address] Reji Thomas Urea nitrogen/Creatinine [Mass ratio] 16.4 mg/mg Normal [facility] Comment on above: Performed By: #### M G, TSH, LIPID, T7, CMP, BNP #### [facility] [address] [place] [address] Dr. Reji Thomas PROTIMEon 03-22-2023 INR Coag (PPP) [Relative time] 1.98 {INR} Normal [facility] Comment on above: Performed By: #### P T #### [facility] [address] [place] [address] Dr. Reji Thomas INR GUIDELINES SEE BELOW Normal [facility] Comment on above: Result Comment: SHY RED INR: 2.0 - 3.0 CONDITIONS NOT LISTED BELOW 2.5 - 3.5 FOR PROSTHETIC HEART VALVE REPLACEMENT 2.5 - 3.5 RECURRENT THROMBOSIS Performed By: #### P T #### [facility] [address] [place] [address] Dr. Reji Thomas PT Coag (PPP) [Time] 20.2 s Critically high 9.0-11.[address] [facility] Comment on above: Performed By: #### P T #### [facility] [address] [place] [address] Dr. Reji Thomas TSHon 03-22-2023 TSH 2.265 uIU/mL Normal 0.358-3.740 [place] Comment on above: Performed By: #### B TEACHING AIDE, CMP, TSH, LIPID #### [facility] [address] [place] [address] Dr. Reji Thomas VITAMIN D 25 OHon 03-22-2023 VIT D 25-OH 53.1 ng/mL Normal [facility] Comment on above: Performed By: #### B MP #### [facility] [address] [place] [address] Dr. Reji Thomas VIT D RANGES SEE BELOW Normal [facility] Comment on above: Result Comment: <20 ng/mL Vit D deficient 20 - <30 ng/mL Vit D insufficient 30 - 100 ng/mL Vit D sufficient >100 ng/mL Potential Toxicity Performed By: #### B MP #### [facility] [address] [place] [address] Dr. Reji Thomas PROTIMEon 02-22-2023 INR Coag (PPP) [Relative time] 2.22 {INR} Normal [facility] Comment on above: Performed By: #### B TEACHING AIDE, CMP, TSH, LIPID #### [facility] [address] [place] [address] Dr. Reji Thomas INR GUIDELINES SEE BELOW Normal [facility] Comment on above: Result Comment: SHY RED INR: 2.0 - 3.0 CONDITIONS NOT LISTED BELOW 2.5 - 3.5 FOR PROSTHETIC HEART VALVE REPLACEMENT 2.5 - 3.5 RECURRENT THROMBOSIS Performed By: #### B TEACHING AIDE, CMP, TSH, LIPID #### [facility] [address] [place] [address] Dr. Reji Thomas PT Coag (PPP) [Time] 22.5 s Critically high 9.0-11.6 [facility] Comment on above: Performed By: #### B TEACHING AIDE, CMP, TSH, LIPID #### [facility] [address] [place] [address] Dr. Reji Thomas PROTIMEon 01-03-2023 INR Coag (PPP) [Relative time] 2.53 {INR} Normal [facility] Comment on above: Performed By: #### B MP #### [facility] [address] [place] [address] Dr. Reji Thomas INR GUIDELINES SEE BELOW Normal [facility] Comment on above: Result Comment: SHY RED INR: 2.0 - 3.0 CONDITIONS NOT LISTED BELOW 2.5 - 3.5 FOR PROSTHETIC HEART VALVE REPLACEMENT 2.5 - 3.5 RECURRENT THROMBOSIS Performed By: #### B MP #### [facility] [address] [place] [address] Dr. Reji Thomas PT Coag (PPP) [Time] 25.4 s Critically high 9.0-11.[address] [facility] Comment on above: Performed By: #### B MP #### [facility] [address] [place] [address] Dr. Reji Thomas PROTIMEon 11-23-2022 INR Coag (PPP) [Relative time] 1.71 {INR} Normal [facility] Comment on above: Performed By: #### B TEACHING AIDE, CMP, TSH, LIPID #### [facility] [address] [place] [address] Dr. Reji Thomas INR GUIDELINES SEE BELOW Normal [facility] Comment on above: Result Comment: SHY RED INR: 2.0 - 3.0 CONDITIONS NOT LISTED BELOW 2.5 - 3.5 FOR PROSTHETIC HEART VALVE REPLACEMENT 2.5 - 3.5 RECURRENT THROMBOSIS Performed By: #### B TEACHING AIDE, CMP, TSH, LIPID #### [facility] [address] [place] [address] Dr. Reji Thomas PT Coag (PPP) [Time] 17.6 s Critically high 9.0-11.[address] [facility] Comment on above: Performed By: #### B TEACHING AIDE, CMP, TSH, LIPID #### [facility] [address] [place] [address] Dr. Reji Thomas PROTIMEon 10-10-2022 INR Coag (PPP) [Relative time] 2.52 {INR} Normal [facility] Comment on above: Performed By: #### B TEACHING AIDE, CMP, TSH, LIPID #### [facility] [address] [place] [address] Dr. Reji Thomas INR GUIDELINES SEE BELOW Normal [facility] Comment on above: Result Comment: SHY RED INR: 2.0 - 3.0 CONDITIONS NOT LISTED BELOW 2.5 - 3.5 FOR PROSTHETIC HEART VALVE REPLACEMENT 2.5 - 3.5 RECURRENT THROMBOSIS Performed By: #### B TEACHING AIDE, CMP, TSH, LIPID #### [facility] [address] [place] [address] Dr. Reji Thomas PT Coag (PPP) [Time] 25.6 s Critically high 9.0-11.6 [facility] Comment on above: Performed By: #### B TEACHING AIDE, CMP, TSH, LIPID #### [facility] [address] [place] [address] Dr. Reji Thomas PROTIMEon 09-05-2022 INR Coag (PPP) [Relative time] 2.03 {INR} Normal [facility] Comment on above: Performed By: #### B TEACHING AIDE, CMP, TSH, LIPID #### [facility] [address] [place] [address] Dr. Reji Thomas INR GUIDELINES SEE BELOW Normal [facility] Comment on above: Result Comment: SHY RED INR: 2.0 - 3.0 CONDITIONS NOT LISTED BELOW 2.5 - 3.5 FOR PROSTHETIC HEART VALVE REPLACEMENT 2.5 - 3.5 RECURRENT THROMBOSIS Performed By: #### B TEACHING AIDE, CMP, TSH, LIPID #### [facility] [address] [place] [address] Dr. Reji Thomas PT Coag (PPP) [Time] 20.9 s Critically high 9.0-11.[address] [facility] Comment on above: Performed By: #### B TEACHING AIDE, CMP, TSH, LIPID #### [facility] [address] [place] [address] Dr. Reji Thomas BNPon 08-10-2022 Natriuretic peptide B (Bld) [Mass/Vol] 1162.0 pg/mL Normal <=1,800.[address] [facility] Comment on above: Performed By: #### B MP, BNP #### [facility] [address] [place] [address] Dr. Reji Thomas PROF CHEM 8 (BAS METB)on Anion gap [Moles/Vol] 11.3 mmol/L Normal [facility] Comment on above: Performed By: #### B MP, BNP #### [facility] [address] [place] [address] Dr. eRji Thomas Calcium [Mass/Vol] 8.9 mg/dL Normal 8.5-10.1 [facility] Comment on above: Performed By: #### B MP, BNP #### [facility] [address] [address] [address] Reji Thomas Chloride [Moles/Vol] 103 mmol/L Normal 98-[address] [facility] Comment on above: Performed By: #### B MP, BNP #### [facility] [address] [address] [address] Reji Thomas CO2 [Moles/Vol] 28.2 mmol/L Normal 21.0-32.0 [facility] Comment on above: Performed By: #### B MP, BNP #### [facility] [address] [place] [address] Dr. Reji Thomas Creatinine [Mass/Vol] 2.07 mg/dL Critically high 0.55-1.[address] [facility] Comment on above: Performed By: #### B MP, BNP #### [facility] [address] [place] [address] Dr. Reji Thomas EGFR-AF TURKS AND CAICOS ISLANDER 28 mL/min/1.73m2 Critically low >=[address] [facility] Comment on above: Performed By: #### B MP, BNP #### [facility] [address] [place] [address] Dr. Reji Thomas EGFR-NON AF TURKS AND CAICOS ISLANDER 23 mL/min/1.73m2 Critically low >=[address] [facility] Comment on above: Performed By: #### B MP, BNP #### [facility] [address] [place] [address] Dr. Reji Thomas Glucose [Mass/Vol] 88 mg/dL Normal 74-106 [facility] Comment on above: Performed By: #### B MP, BNP #### [facility] [address] [place] [address] Dr. Reji Thomas Potassium [Moles/Vol] 4.5 mmol/L Normal 3.5-5.[address] [facility] Comment on above: Performed By: #### B MP, BNP #### [facility] [address] [place] [address] Dr. Reji Thomas Sodium [Moles/Vol] 138 mmol/L Normal 136-145 [facility] Comment on above: Performed By: #### B MP, BNP #### [facility] [address] [place] [address] Dr. Reji Thomas Urea nitrogen [Mass/Vol] 35.0 mg/dL Critically high 7.0-18.[address] [facility] Comment on above: Performed By: #### B MP, BNP #### [facility] [address] [place] [address] Dr. Reji Thomas Urea nitrogen/Creatinine [Mass ratio] 16.9 mg/mg Normal [facility] Comment on above: Performed By: #### B MP, BNP #### [facility] [address] [place] [address] Dr. Reji Thomas PROTIMEon 08-09-2022 INR Coag (PPP) [Relative time] 2.04 {INR} Normal [facility] Comment on above: Performed By: #### B TEACHING AIDE, CMP, TSH, LIPID #### [facility] [address] [place] [address] Dr. Reji Thomas INR GUIDELINES SEE BELOW Normal [facility] Comment on above: Result Comment: SHY RED INR: 2.0 - 3.0 CONDITIONS NOT LISTED BELOW 2.5 - 3.5 FOR PROSTHETIC HEART VALVE REPLACEMENT 2.5 - 3.5 RECURRENT THROMBOSIS Performed By: #### B TEACHING AIDE, CMP, TSH, LIPID #### [facility] [address] [place] [address] Dr. Reji Thomas PT Coag (PPP) [Time] 21.0 s Critically high 9.0-11.[address] [facility] Comment on above: Performed By: #### B TEACHING AIDE, CMP, TSH, LIPID #### [facility] [address] [place] [address] Dr. Reji Thomas BNPon 07-09-2022 Natriuretic peptide B (Bld) [Mass/Vol] 2085.0 pg/mL Critically high <=1,800.[address] [facility] Comment on above: Result Comment: LEX ACOSTA CALLED TO OFFICE ON 07-10-22 AT 0850 BY AR Performed By: #### B TEACHING AIDE, CMP, TSH, LIPID #### [facility] [address] [place] [address] Dr. Reji Thomas PROF CHEM 8 (BAS METB)on Anion gap [Moles/Vol] 13.7 mmol/L Normal [facility] Comment on above: Performed By: #### B TEACHING AIDE, CMP, TSH, LIPID #### [facility] [address] [place] [address] Dr. Reji Thomas Calcium [Mass/Vol] 8.3 mg/dL Critically low 8.5-10.1 Th e [facility] Comment on above: Performed By: #### B TEACHING AIDE, CMP, TSH, LIPID #### [facility] [address] [place] [address] Dr. Reji Thomas Chloride [Moles/Vol] 104 mmol/L Normal 98-[address] [facility] Comment on above: Performed By: #### B TEACHING AIDE, CMP, TSH, LIPID #### [facility] [address] [place] [address] Dr. Reji Thomas CO2 [Moles/Vol] 26.6 mmol/L Normal 21.0-32.0 [facility] Comment on above: Performed By: #### B TEACHING AIDE, CMP, TSH, LIPID #### [facility] [address] [place] [address] Dr. Reji Thomas Creatinine [Mass/Vol] 1.98 mg/dL Critically high 0.55-1.[address] [facility] Comment on above: Performed By: #### B TEACHING AIDE, CMP, TSH, LIPID #### [facility] [address] [place] [address] Dr. Reji Thomas EGFR-AF TURKS AND CAICOS ISLANDER 29 mL/min/1.73m2 Critically low >=[address] [facility] Comment on above: Performed By: #### B TEACHING AIDE, CMP, TSH, LIPID #### [facility] [address] [place] [address] Dr. Reji Thomas EGFR-NON AF TURKS AND CAICOS ISLANDER 24 mL/min/1.73m2 Critically low >=[address] [facility] Comment on above: Performed By: #### B TEACHING AIDE, CMP, TSH, LIPID #### [facility] [address] [address] [address] Reji Thomas Glucose [Mass/Vol] 116 mg/dL Critically high 74-106 [facility] [place] Comment on above: Performed By: #### B TEACHING AIDE, CMP, TSH, LIPID #### [facility] [address] [address] [address] Reji Thomas Potassium [Moles/Vol] 4.3 mmol/L Normal 3.5-5.[address] [facility] Comment on above: Performed By: #### B TEACHING AIDE, CMP, TSH, LIPID #### [facility] [address] [address] [address] Reji Thomas Sodium [Moles/Vol] 140 mmol/L Normal 136-145 [facility] Comment on above: Performed By: #### B TEACHING AIDE, CMP, TSH, LIPID #### [facility] [address] [place] [address] Dr. Reji Thomas Urea nitrogen [Mass/Vol] 35.0 mg/dL Critically high 7.0-18.[address] [facility] Comment on above: Performed By: #### B TEACHING AIDE, CMP, TSH, LIPID #### [facility] [address] [address] [address] Reji Thomas Urea nitrogen/Creatinine [Mass ratio] 17.7 mg/mg Normal [facility] Comment on above: Performed By: #### B TEACHING AIDE, CMP, TSH, LIPID #### [facility] [address] [place] [address] Dr. Reji Thomas PROTIMEon 07-09-2022 INR Coag (PPP) [Relative time] 2.99 {INR} Normal [facility] Comment on above: Performed By: #### B TEACHING AIDE, CMP, TSH, LIPID #### [facility] [address] [place] [address] Dr. Reji Thomas INR GUIDELINES SEE BELOW Normal [facility] Comment on above: Result Comment: SHY RED INR: 2.0 - 3.0 CONDITIONS NOT LISTED BELOW 2.5 - 3.5 FOR PROSTHETIC HEART VALVE REPLACEMENT 2.5 - 3.5 RECURRENT THROMBOSIS Performed By: #### B TEACHING AIDE, CMP, TSH, LIPID #### [facility] [address] [place], [place] [address] Dr. Reji Thomas PT Coag (PPP) [Time] 30.1 s Critically high 9.0-11.[address] [facility] Comment on above: Performed By: #### B TEACHING AIDE, CMP, TSH, LIPID #### [facility] [address] [address] [address] Reji Thomas US KIDNEYSon 07-06-2022 US [...] by: SIGRID RICHMOND Date: 2022-07-06 13:[address] [facility] EVAN Antinuclear Antibodieson 06-19-2022 Antinuclear Abs, IFA Positive Critically abnormal . [facility] Comment on above: Result Comment: Nega tive <1:80 Borderline 1:80 Positive >1:80 Performed By: #### C UU, ADDONUAPLUS #### [facility] [address] [place] [address] #### C3, C4, CH50 #### [facility] , Homogeneous Pattern 1:320 High . [facility] Comment on above: Result Comment: ICAP nomenclature: [id number] Performed By: #### C MIKY CHOW #### [facility] [address] #### C3, C4, CH50 #### [facility] , Note 1 Normal . [facility] Comment on above: Result Comment: For [...] titers Nucleosomes, Histones Drug-induced SLE Speckled Sm, FINANCIAL SERVICE REP, SCL-70, SLE,MCTD,PSS (diffuse form), SS-A/SS-B Sjogrens Nucleolar SCL-70, PM-1/SCL High titers Scleroderma, PM/DM Centromere Centromere PSS (limited form) w/Crest syndrome variable Nuclear Dot [id number] Primary Biliary Cirrhosis Nuclear GP210, Primary Biliary Cirrhosis Membrane eleonora A,B,C Performed at: [address] [place] [address] Spiral Gear Generator: Demarcus Lawton PhD, Phone: [phone] Performed By: #### COURTNEY GOMEZONHEAVENPLUS #### [facility] [address] [place] [address] #### C3, C4, CH50 #### [facility] , Anti-RNPon 06-19-2022 Anti-FINANCIAL SERVICE REP 0.4 Normal 0.0-0.9 [facility] Comment on above: Result Comment: Perf ormed at: [facility] [address] [address] Spiral Gear Generator: Demarcus Lawton PhD, Phone: [phone] Performed By: #### COURTNEY GOMEZONUAPLUS #### [facility] [address] [place] [address] #### C3, C4, CH50 #### [facility] , C-Reactive Proteinon 022 C-Reactive Protein 2.0 mg/dL High 0.0-1.0 [facility] Comment on above: Result Comment: PERF ORMED BY: [place] [address] PATHOLOGIST TANK SETTER HELPER RADHA BULLARD M.D. Performed By: #### C UU, ADDONUAPLUS #### [address] #### C3, C4, CH50 #### [facility] , Complement C3on 06-19-2022 Complement C3 167 mg/dL Normal 82-167 [facility] Comment on above: Result Comment: Perf ormed at: [address] [id number] Sp[employer] Generator: Demarcus Lawton PhD, Phone: [phone] Performed By: #### C UU, ADDONUAPLUS #### [address] #### C3, C4, CH50 #### [facility] , Complement C4on 06-19-2022 Complement C4 37 mg/dL Normal 12-38 [facility] Comment on above: Performed By: #### C UU, ADDONUAPLUS #### [address] #### C3, C4, CH50 #### [facility] , Complement Total (CH50)on Complement Total (CH50) >60 Normal >41 [facility] Comment on above: Result Comment: Age [...] out of range values. Performed at: - [address] [id number] Spiral Gear Generator: Demarcus Lawton PhD, Phone: [phone] PERFORMED BY: [place] [address] PATHOLOGIST TANK SETTER HELPER RADHA BULLARD M.D. Performed By: #### C UU, ADDONUAPLUS #### [address] #### C3, C4, CH50 #### [facility] , Complete Blood Count Auto Di ffon 06-19-2022 Basophils (Bld) [#/Vol] 0.1 10*3/uL Normal 0.0-0.2 [facility] Comment on above: Performed By: #### H EPATIC, CBC, ESR, CRP, CREAT, CK #### [place] [address] [place] #### RNA POLYMR, ANTI TH TO, EVAN, U3 FINANCIAL SERVICE REP, ANTIR, PM-SCL ABS #### [facility] , Basophils/100 WBC (Bld) 0.9 % Normal . [facility] Comment on above: Performed By: #### H EPATIC, CBC, ESR, CRP, CREAT, CK #### [place] [address] [place] #### RNA POLYMR, ANTI TH TO, EVAN, U3 FINANCIAL SERVICE REP, ANTIR, PM-SCL ABS #### [facility] , Eosinophils (Bld) [#/Vol] 0.5 10*3/uL High 0.0-0.45 [facility] Comment on above: Performed By: #### H EPATIC, CBC, ESR, CRP, CREAT, CK #### [place] [address] [place] #### RNA POLYMR, ANTI TH TO, EVAN, U3 FINANCIAL SERVICE REP, ANTIR, PM-SCL ABS #### [facility] , Eosinophils/100 WBC (Bld) 8.6 % Normal . [facility] Comment on above: Performed By: #### H EPATIC, CBC, ESR, CRP, CREAT, CK #### [address] [address] [place] #### RNA POLYMR, ANTI TH TO, EVAN, U3 FINANCIAL SERVICE REP, ANTIR, PM-SCL ABS #### [facility] , Erythrocyte distribution width (RBC) [Ratio] 19.6 % High 11.9-15.3 [facility] Comment on above: Performed By: #### H EPATIC, CBC, ESR, CRP, CREAT, CK #### [place] [address] [place] #### RNA POLYMR, ANTI TH TO, EVAN, U3 FINANCIAL SERVICE REP, ANTIR, PM-SCL ABS #### [facility] , Hematocrit (Bld) [Volume fraction] 33.8 % Low 34.0-46.4 [facility] Comment on above: Performed By: #### H EPATIC, CBC, ESR, CRP, CREAT, CK #### [address] #### RNA POLYMR, ANTI TH TO, EVAN, U3 FINANCIAL SERVICE REP, ANTIR, PM-SCL ABS #### [facility] , Hemoglobin (Bld) [Mass/Vol] 10.9 g/dL Low 11.8-15.4 [facility] Comment on above: Performed By: #### H EPATIC, CBC, ESR, CRP, CREAT, CK #### [place] [address] [place] #### RNA POLYMR, ANTI TH TO, EAVN, U3 FINANCIAL SERVICE REP, ANTIR, PM-SCL ABS #### [facility] , Lymphocytes (Bld) [#/Vol] 1.1 10*3/uL Normal 1.00-4.8 [facility] Comment on above: Performed By: #### H EPATIC, CBC, ESR, CRP, CREAT, CK #### [place] [address] [place] #### RNA POLYMR, ANTI TH TO, EVAN, U3 FINANCIAL SERVICE REP, ANTIR, PM-SCL ABS #### [facility] , Lymphocytes/100 WBC (Bld) 17.8 % Normal . [facility] Comment on above: Performed By: #### H EPATIC, CBC, ESR, CRP, CREAT, CK #### [facility] [address] [place] [address] #### RNA POLYMR, ANTI TH TO, EVAN, U3 FINANCIAL SERVICE REP, ANTIR, PM-SCL ABS #### [facility] , MCH (RBC) [Entitic mass] 26.4 pg Normal 24.7-34.3 [facility] Comment on above: Performed By: #### H EPATIC, CBC, ESR, CRP, CREAT, CK #### [facility] [address] [place] [address] #### RNA POLYMR, ANTI TH TO, EVAN, U3 FINANCIAL SERVICE REP, ANTIR, PM-SCL ABS #### [facility] , MCV (RBC) [Entitic vol] 81.8 fL Normal 80-100 [facility] Comment on above: Performed By: #### H EPATIC, CBC, ESR, CRP, CREAT, CK #### [address] #### RNA POLYMR, ANTI TH TO, EVAN, U3 FINANCIAL SERVICE REP, ANTIR, PM-SCL ABS #### [facility] , Mean Corpuscular HGB Conc 32.3 g/dL Normal 32.0-35.0 [facility] Comment on above: Performed By: #### H EPATIC, CBC, ESR, CRP, CREAT, CK #### [address] #### RNA POLYMR, ANTI TH TO, EVAN, U3 FINANCIAL SERVICE REP, ANTIR, PM-SCL ABS #### [facility] , Monocytes (Bld) [#/Vol] 0.4 10*3/uL Normal 0.0-0.8 [facility] Comment on above: Performed By: #### H EPATIC, CBC, ESR, CRP, CREAT, CK #### [place] [address] [place] #### RNA POLYMR, ANTI TH TO, EVAN, U3 FINANCIAL SERVICE REP, ANTIR, PM-SCL ABS #### [facility] , Monocytes/100 WBC (Bld) 7.4 % Normal . [facility] Comment on above: Performed By: #### H EPATIC, CBC, ESR, CRP, CREAT, CK #### [address] #### RNA POLYMR, ANTI TH TO, EVAN, U3 FINANCIAL SERVICE REP, ANTIR, PM-SCL ABS #### [facility] , Neutrophils (Bld) [#/Vol] 3.9 10*3/uL Normal 1.8-7.7 [facility] Comment on above: Performed By: #### H EPATIC, CBC, ESR, CRP, CREAT, CK #### [address] #### RNA POLYMR, ANTI TH TO, EVAN, U3 FINANCIAL SERVICE REP, ANTIR, PM-SCL ABS #### [facility] , Neutrophils/100 WBC (Bld) 65.3 % Normal . [facility] Comment on above: Performed By: #### H EPATIC, CBC, ESR, CRP, CREAT, CK #### [address] #### RNA POLYMR, ANTI TH TO, EVAN, U3 FINANCIAL SERVICE REP, ANTIR, PM-SCL ABS #### [facility] , Nucleated RBC/100 WBC (Bld) [Ratio] 0.0 % Normal 0-0.5 [facility] Comment on above: Performed By: #### H EPATIC, CBC, ESR, CRP, CREAT, CK #### [place] [address] [place] #### RNA POLYMR, ANTI TH TO, EVAN, U3 FINANCIAL SERVICE REP, ANTIR, PM-SCL ABS #### [facility] , Platelet mean volume (Bld) [Entitic vol] 7.2 fL Normal 6.3-10.7 [facility] Comment on above: Performed By: #### H EPATIC, CBC, ESR, CRP, CREAT, CK #### [facility] [address] [place] [address] [place] #### RNA POLYMR, ANTI TH TO, EVAN, U3 FINANCIAL SERVICE REP, ANTIR, PM-SCL ABS #### [facility] , Platelets (Bld) [#/Vol] 237 10*3/uL Normal 150-450 [facility] Comment on above: Performed By: #### H EPATIC, CBC, ESR, CRP, CREAT, CK #### [facility] [address] [place] [address] #### RNA POLYMR, ANTI TH TO, EVAN, U3 FINANCIAL SERVICE REP, ANTIR, PM-SCL ABS #### [facility] , RBC (Bld) [#/Vol] 4.14 10*6/uL Normal 3.60-5.00 [facility] Comment on above: Performed By: #### H EPATIC, CBC, ESR, CRP, CREAT, CK #### [facility] [address] [place] [address] [place] #### RNA POLYMR, ANTI TH TO, EVAN, U3 FINANCIAL SERVICE REP, ANTIR, PM-SCL ABS #### [facility] , WBC (Bld) [#/Vol] 6.0 10*3/uL Normal 4.5-11.0 [facility] Comment on above: Performed By: #### H EPATIC, CBC, ESR, CRP, CREAT, CK #### [facility] [address] [place] [address] [place] #### RNA POLYMR, ANTI TH TO, EVAN, U3 FINANCIAL SERVICE REP, ANTIR, PM-SCL ABS #### [facility] , Creatine Kinaseon 06-19-2022 CK [Catalytic activity/Vol] 38 U/L Normal 22-269 [facility] Comment on above: Result Comment: PERF ORMED BY: [place] [phone] PATHOLOGIST TANK SETTER HELPER RADHA BULLARD M.D. Performed By: #### H EPATIC, CBC, ESR, CRP, CREAT, CK #### [address] #### RNA POLYMR, ANTI TH TO, EVAN, U3 FINANCIAL SERVICE REP, ANTIR, PM-SCL ABS #### [facility] , Creatinineon 06-19-2022 Creatinine [Mass/Vol] 2.82 mg/dL High 0.44-1.03 [facility] Comment on above: Performed By: #### H EPATIC, CBC, ESR, CRP, CREAT, CK #### [address] #### RNA POLYMR, ANTI TH TO, EVAN, U3 FINANCIAL SERVICE REP, ANTIR, PM-SCL ABS #### [facility] , Estimated GFR ( [place] [facility] Comment on above: Result Comment: GFR estimated reference range: According to KDOQI guidelines, <60 ml/min/1.73m2 is sufficient to diagnose a patient with chronic kidney disease. Performed By: #### H EPATIC, CBC, ESR, CRP, CREAT, CK #### [address] #### RNA POLYMR, ANTI TH TO, EVAN, U3 FINANCIAL SERVICE REP, ANTIR, PM-SCL ABS #### [facility] , Estimated GFR (Non- Am [facility] Comment on above: Performed By: #### H EPATIC, CBC, ESR, CRP, CREAT, CK #### [place] [address] [place] #### RNA POLYMR, ANTI TH TO, EVAN, U3 FINANCIAL SERVICE REP, ANTIR, PM-SCL ABS #### [facility] , Dipstick and Microscopicon 0 06-19-2022 Appearance (U) Cloudy Critically abnormal Clear [facility] Comment on above: Order Comment: Name Collection Type:: Clean-Voided Midstream Performed By: #### C UU, ADDONUAPLUS #### [facility] [address] [place] [address] #### C3, C4, CH50 #### [facility] , Bacteria,Urine 1+ High None Seen [facility] Comment on above: Order Comment: Name Collection Type:: Clean-Voided Midstream Performed By: #### C UU, ADDONUAPLUS #### [facility] [address] [place] [address] #### C3, C4, CH50 #### [facility] , Bilirubin,Urine Negative Normal Negative [facility] Comment on above: Order Comment: Name Collection Type:: Clean-Voided Midstream Performed By: #### C UU, ADDONUAPLUS #### [facility] [address] [place] [address] #### C3, C4, CH50 #### [facility] , Color (U) Yellow Normal Yellow [facility] Comment on above: Order Comment: Name Collection Type:: Clean-Voided Midstream Performed By: #### C UU, ADDONUAPLUS #### [facility] [address] [place] [address] #### C3, C4, CH50 #### [facility] , Glucose Ql (U) Normal Normal Normal [facility] Comment on above: Order Comment: Name Collection Type:: Clean-Voided Midstream Performed By: #### C UU, ADDONUAPLUS #### [facility] [address] [place] [address] #### C3, C4, CH50 #### [facility] , Hyaline Casts,Urine 1-2 Normal 0-8 [facility] Comment on above: Order Comment: Name Collection Type:: Clean-Voided Midstream Result Comment: PERF ORMED BY: [place] [address] PATHOLOGIST TANK SETTER HELPER RADHA BULLARD M.D. Performed By: #### C UU, ADDONUAPLUS #### [facility] [address] [place] [address] #### C3, C4, CH50 #### [facility] , Ketones Ql (U) Negative Normal Negative [facility] Comment on above: Order Comment: Name Collection Type:: Clean-Voided Midstream Performed By: #### C UU, ADDONUAPLUS #### [facility] [address] [place] [address] #### C3, C4, CH50 #### [facility] , Leukocyte esterase Test strip Ql (U) 4+ High Negative [facility] Comment on above: Order Comment: Name Collection Type:: Clean-Voided Midstream Performed By: #### C UU, ADDONUAPLUS #### [address] #### C3, C4, CH50 #### [facility] , Nitrite,Urine Negative Normal Negative [facility] Comment on above: Order Comment: Name Collection Type:: Clean-Voided Midstream Performed By: #### C UU, ADDONUAPLUS #### [address] #### C3, C4, CH50 #### [facility] , Occult Blood,Urine 1+ High Negative [facility] Comment on above: Order Comment: Name Collection Type:: Clean-Voided Midstream Performed By: #### C UU, ADDONUAPLUS #### [address] #### C3, C4, CH50 #### [facility] , pH (U) 6.5 [pH] Normal 5.0-9.0 [facility] Comment on above: Order Comment: Name Collection Type:: Clean-Voided Midstream Performed By: #### C UU, ADDONUAPLUS #### [place] [address] [place] #### C3, C4, CH50 #### [facility] , Protein,Urine Trace High Negative [facility] Comment on above: Order Comment: Name Collection Type:: Clean-Voided Midstream Performed By: #### C UU, ADDONUAPLUS #### [address] #### C3, C4, CH50 #### [facility] , RBC,Urine 1-2 Normal 0-4 [facility] Comment on above: Order Comment: Name Collection Type:: Clean-Voided Midstream Performed By: #### C UU, ADDONUAPLUS #### [address] #### C3, C4, CH50 #### [facility] , Specificy [place],Urine 1.010 Normal 1.001-1.030 [facility] Comment on above: Order Comment: Name Collection Type:: Clean-Voided Midstream Performed By: #### C UU, ADDONUAPLUS #### [address] #### C3, C4, CH50 #### [facility] , Squamous Epithelial Cell,Urine 5-9 High 0-2 [facility] Comment on above: Order Comment: Name Collection Type:: Clean-Voided Midstream Performed By: #### C UU, ADDONUAPLUS #### [address] #### C3, C4, CH50 #### [facility] , Urobilinogen,Urine Normal Normal Normal [facility] Comment on above: Order Comment: Name Collection Type:: Clean-Voided Midstream Performed By: #### C UU, ADDONUAPLUS #### [address] #### C3, C4, CH50 #### [facility] , WBC,Urine Innumerable High 0-4 [facility] [facility] Comment on above: Order Comment: Name Collection Type:: Clean-Voided Midstream Performed By: #### C UU, ADDONUAPLUS #### [address] #### C3, C4, CH50 #### [facility] , Erythrocyte Sedimentation Ra pratik 06-19-2022 ESR (Bld) [Velocity] 57 mm/h High 0-29 [facility] Comment on above: Result Comment: PERF ORMED BY: [place] [address] PATHOLOGIST TANK SETTER HELPER RADHA BULLARD M.D. Performed By: #### H EPATIC, CBC, ESR, CRP, CREAT, CK #### [address] #### RNA POLYMR, ANTI TH TO, EVAN, U3 FINANCIAL SERVICE REP, ANTIR, PM-SCL ABS #### [facility] , Hepatic Panelon 06-19-2022 Albumin [Mass/Vol] 3.6 g/dL Normal 3.2-5.5 [facility] Comment on above: Performed By: #### H EPATIC, CBC, ESR, CRP, CREAT, CK #### [facility] [address] [place] [address] #### RNA POLYMR, ANTI TH TO, EVAN, U3 FINANCIAL SERVICE REP, ANTIR, PM-SCL ABS #### [facility] , Albumin/Globulin [Mass ratio] 1.0 {ratio} Normal [facility] Comment on above: Performed By: #### H EPATIC, CBC, ESR, CRP, CREAT, CK #### [facility] [address] [place] [address] [place] #### RNA POLYMR, ANTI TH TO, EVAN, U3 FINANCIAL SERVICE REP, ANTIR, PM-SCL ABS #### [facility] , ALP [Catalytic activity/Vol] 68 U/L Normal 32-92 [facility] Comment on above: Performed By: #### H EPATIC, CBC, ESR, CRP, CREAT, CK #### [facility] [address] [place] [address] [place] #### RNA POLYMR, ANTI TH TO, EVAN, U3 FINANCIAL SERVICE REP, ANTIR, PM-SCL ABS #### [facility] , ALT [Catalytic activity/Vol] 9 U/L Low 10-60 [facility] Comment on above: Performed By: #### H EPATIC, CBC, ESR, CRP, CREAT, CK #### [address] #### RNA POLYMR, ANTI TH TO, EVAN, U3 FINANCIAL SERVICE REP, ANTIR, PM-SCL ABS #### [facility] , AST [Catalytic activity/Vol] 15 U/L Normal 10- [facility] Comment on above: Performed By: #### H EPATIC, CBC, ESR, CRP, CREAT, CK #### [facility] [address] [place] [address] [place] #### RNA POLYMR, ANTI TH TO, EVAN, U3 FINANCIAL SERVICE REP, ANTIR, PM-SCL ABS #### [facility] , Bilirubin [Mass/Vol] 0.6 mg/dL Normal 0.3-1.2 [facility] Comment on above: Performed By: #### H EPATIC, CBC, ESR, CRP, CREAT, CK #### [facility] [address] [place] [address] [place] #### RNA POLYMR, ANTI TH TO, EVAN, U3 FINANCIAL SERVICE REP, ANTIR, PM-SCL ABS #### [facility] , Bilirubin,Indirect 0.4 mg/dL Normal [facility] Comment on above: Performed By: #### H EPATIC, CBC, ESR, CRP, CREAT, CK #### [facility] [address] [place] [address] [place] #### RNA POLYMR, ANTI TH TO, EVAN, U3 FINANCIAL SERVICE REP, ANTIR, PM-SCL ABS #### [facility] , Bilirubin.indirect [Mass/Vol] 0.2 mg/dL Normal 0.0-0.4 [facility] Comment on above: Performed By: #### H EPATIC, CBC, ESR, CRP, CREAT, CK #### [place] [address] [place] #### RNA POLYMR, ANTI TH TO, EVAN, U3 FINANCIAL SERVICE REP, ANTIR, PM-SCL ABS #### [facility] , Globulin (S) [Mass/Vol] 3.5 g/dL Normal [facility] Comment on above: Performed By: #### H EPATIC, CBC, ESR, CRP, CREAT, CK #### [place] [address] [place] #### RNA POLYMR, ANTI TH TO, EVAN, U3 FINANCIAL SERVICE REP, ANTIR, PM-SCL ABS #### [facility] , Protein [Mass/Vol] 7.1 g/dL Normal 6.1-7.9 [facility] Comment on above: Performed By: #### H EPATIC, CBC, ESR, CRP, CREAT, CK #### [place] [address] [place] #### RNA POLYMR, ANTI TH TO, EVAN, U3 FINANCIAL SERVICE REP, ANTIR, PM-SCL ABS #### [facility] , PM-SCL Antibodieson 06-19-20 22 RAIZA PM-Scl Antibody <20 Normal <20 [facility] Comment on above: Result Comment: This test was developed and its performance characteristics determined by [facility]. It has not been cleared or approved by the Food and Drug Administration. Negative: <20 Weak Positive: 20 - 39 Moderate Positive: 40 - 80 Strong Positive: >80 Performed at: [employer] [address] [place] [address] [id number] Spiral Gear Generator: Artemio Nair MD, Phone: [phone] Performed By: #### C UU, ADDONUAPLUS #### [place] [address] [place] #### C3, C4, CH50 #### [facility] , RNA Polymerase IIion 022 RNA Polymerase IIi <20 Normal <20 [facility] Comment on above: Result Comment: Nega tive: <20 Weak Positive: 20 - 39 Moderate Positive: 40 - 80 Strong Positive: >80 Performed at: [facility] [address] [place] [address] [id number] Spiral Gear Generator: Artemio Nair MD, Phone: [phone] PERFORMED BY: [place] [address] PATHOLOGIST TANK SETTER HELPER RADHA BULLARD M.D. Performed By: #### C UU, ADDONUAPLUS #### [address] #### C3, C4, CH50 #### [facility] , Th/To Antibodyon 06-19-2022 Th/To Antibody Negative Normal Negative [facility] Comment on above: Result Comment: This test was developed and its performance characteristics determined by [employer]. It has not been cleared or approved by the Food and Drug Administration. Performed at: [facility] [address] [place] [address] [id number] Spiral Gear Generator: Artemio Nair MD, Phone: [phone] Performed By: #### C UU, ADDONUAPLUS #### [facility] [address] [place] [address] #### C3, C4, CH50 #### [facility] , U3 Rnpon 06-19-2022 U3 Food Production Worker Negative Normal Negative [facility] Comment on above: Result Comment: This test was developed and its performance characteristics determined by [employer]. It has not been cleared or approved by the Food and Drug Administration. Performed at: [facility] [address] [place] [address] [id number] Spiral Gear Generator: Artemio Nair MD, Phone: [phone] PERFORMED BY: [place] [address] PATHOLOGIST TANK SETTER HELPER RADHA BULLARD M.D. Performed By: #### C UU, ADDONUAPLUS #### [address] #### C3, C4, CH50 #### [facility] , Urine Cultureon 06-19-2022 Bacteria identified Cx Nom (U) No Growth 2 Days PERFORMED BY: [place] [address] PATHOLOGIST TANK SETTER HELPER RADHA BULLARD M.D. [facility] Comment on above: Performed By: #### C UU, ADDONUAPLUS #### [address] #### C3, C4, CH50 #### [facility] , PROF CHEM 8 (BAS METB)on Anion gap [Moles/Vol] 12.5 mmol/L Normal [facility] Comment on above: Performed By: #### B MP #### [facility] [address] [address] [address] Reji Thomas Calcium [Mass/Vol] 8.9 mg/dL Normal 8.5-10.1 [facility] Comment on above: Performed By: #### B MP #### [facility] [address] [address] [address] Reji Thomas Chloride [Moles/Vol] 103 mmol/L Normal 98-[address] [facility] Comment on above: Performed By: #### B MP #### [facility] [address] [address] [address] Reji Thomas CO2 [Moles/Vol] 26.1 mmol/L Normal 21.0-32.0 [facility] Comment on above: Performed By: #### B MP #### [facility] [address] [address] [address] Reji Thomas Creatinine [Mass/Vol] 2.09 mg/dL Critically high 0.55-1.[address] [facility] Comment on above: Performed By: #### B MP #### [facility] [address] [address] [address] Reji Thomas EGFR-AF TURKS AND CAICOS ISLANDER 27 mL/min/1.73m2 Critically low >=[address] [facility] Comment on above: Performed By: #### B MP #### [facility] [address] [address] [address] Reji Thomas EGFR-NON AF TURKS AND CAICOS ISLANDER 23 mL/min/1.73m2 Critically low >=[address] [facility] Comment on above: Performed By: #### B MP #### [facility] [address] [address] [address] Reji Thomas Glucose [Mass/Vol] 96 mg/dL Normal 74-106 [facility] Comment on above: Performed By: #### B MP #### [facility] [address] [address] [address] Reji Thomas Potassium [Moles/Vol] 4.6 mmol/L Normal 3.5-5.[address] [facility] Comment on above: Performed By: #### B MP #### [facility] [address] [address] [address] Reji Thomas Sodium [Moles/Vol] 137 mmol/L Normal 136-145 [facility] Comment on above: Performed By: #### B MP #### [facility] [address] [address] [address] Reji Thomas Urea nitrogen [Mass/Vol] 38.0 mg/dL Critically high 7.0-18.[address] [facility] Comment on above: Performed By: #### B MP #### [facility] [address] [address] [address] Reji Thomas Urea nitrogen/Creatinine [Mass ratio] 18.2 mg/mg Normal [facility] Comment on above: Performed By: #### B MP #### [facility] [address] [address] [address] Reji Thomas PROTIMEon 06-04-2022 INR Coag (PPP) [Relative time] 2.51 {INR} Normal [facility] Comment on above: Performed By: #### B TEACHING AIDE, CMP, TSH, LIPID #### [facility] [address] [place] [address] Dr. Reji Thomas INR GUIDELINES SEE BELOW Normal [facility] Comment on above: Result Comment: SHY RED INR: 2.0 - 3.0 CONDITIONS NOT LISTED BELOW 2.5 - 3.5 FOR PROSTHETIC HEART VALVE REPLACEMENT 2.5 - 3.5 RECURRENT THROMBOSIS Performed By: #### B TEACHING AIDE, CMP, TSH, LIPID #### [facility] [address] [place] [address] Dr. Reji Thomas PT Coag (PPP) [Time] 25.5 s Critically high 9.0-11.6 [facility] Comment on above: Performed By: #### B TEACHING AIDE, CMP, TSH, LIPID #### [facility] [address] [place] [address] Dr. Reji Thomas BNPon 05-15-2022 Natriuretic peptide B (Bld) [Mass/Vol] 3661.0 pg/mL Critically high <=1,800.[address] [facility] Comment on above: Performed By: #### B TEACHING AIDE, CMP, TSH, LIPID #### [facility] [address] [place] [address] Dr. Reji Thomas CBC AUTO DIFFon 05-15-2022 BASO # 0.1 103/ul Normal 0.0-0.[address] [facility] Comment on above: Performed By: #### B MP #### [facility] [address] [place] [address] Dr. Reji Thomas Basophils/100 WBC (Bld) 1.1 % Normal 0.2-2.[address] [facility] Comment on above: Performed By: #### B MP #### [facility] [address] [place] [address] Dr. Reji Thomas EO # 0.5 103/ul Normal 0.0-0.7 [facility] Comment on above: Performed By: #### B MP #### [facility] [address] [place] [address] Dr. Reji Thomas Eosinophils/100 WBC (Bld) 6.5 % Normal 0.9-7.[address] [facility] Comment on above: Performed By: #### B MP #### [facility] [address] [place] [address] Dr. Reji Thomas Erythrocyte distribution width (RBC) [Ratio] 16.1 % Critically high 11.0-15.[address] [facility] Comment on above: Performed By: #### B MP #### [facility] [address] [place] [address] Dr. Reji Thomas Hematocrit (Bld) [Volume fraction] 35.0 % Critically low 36.0-48.[address] [facility] Comment on above: Performed By: #### B MP #### [facility] [address] [place] [address] Dr. Reji Thomas Hemoglobin (Bld) [Mass/Vol] 11.1 g/dL Critically low 12.0-16.[address] [facility] Comment on above: Performed By: #### B MP #### [facility] [address] [place] [address] Dr. Reji Thomas IG # 0.02 10e3/ul Normal 0.00-0.[address] [facility] Comment on above: Performed By: #### B MP #### [facility] [address] [place] [address] Dr. Reji Thomas IG % 0.3 % Normal 0.0-0.[address] [facility] Comment on above: Performed By: #### B MP #### [facility] [address] [place] [address] Dr. Reji Thomas LYMPH # 1.6 103/ul Normal 1.2-3.[address] [facility] Comment on above: Performed By: #### B MP #### [facility] [address] [place] [address] Dr. Reji Thomas Lymphocytes/100 WBC (Bld) 22.4 % Normal 20.5-60.[address] [facility] Comment on above: Performed By: #### B MP #### [facility] [address] [place] [address] Dr. Reji Thomas MANUAL DIFF REQ NO Normal [facility] Comment on above: Performed By: #### B MP #### [facility] [address] [address] [address] Reji Thomas MCH (RBC) [Entitic mass] 26.4 pg Critically low 26.7-34.[address] [facility] Comment on above: Performed By: #### B MP #### [facility] [address] [address] [address] Reji Thomas MCHC (RBC) [Mass/Vol] 31.7 g/dL Normal 29.9-35.[address] [facility] Comment on above: Performed By: #### B MP #### [facility] [address] [address] [address] Reji Thomas MCV (RBC) [Entitic vol] 83.1 fL Normal 81.0-99.[address] [facility] Comment on above: Performed By: #### B MP #### [facility] [address] [place] [address] Dr. Reji Thomas MONO # 0.9 103/ul Critically high 0.3-0.8 [facility] Comment on above: Performed By: #### B MP #### [facility] [address] [place] [address] Dr. Reji Thomas Monocytes/100 WBC (Bld) 12.1 % Critically high 1.7-12.[address] [facility] Comment on above: Performed By: #### B MP #### [facility] [address] [address] [address] Reji Thomas NEUT # 4.1 103/ul Normal 1.4-6.5 [facility] Comment on above: Performed By: #### B MP #### [facility] [address] [address] [address] Reji Thomas Neutrophils/100 WBC (Bld) 57.6 % Normal 43.0-75.0 [facility] Comment on above: Performed By: #### B MP #### [facility] [address] [place] [address] Dr. Reji Thomas Platelet mean volume (Bld) [Entitic vol] 8.8 fL Critically low 9.5-13.[address] [facility] Comment on above: Performed By: #### B MP #### [facility] [address] [address] [address] Reji Thomas PLT 253 103/ul Normal 150-[address] [facility] Comment on above: Performed By: #### B MP #### [facility] [address] [place] [address] Dr. Reji Thomas RBC 4.21 106/ul Normal 4.20-5.[address] [facility] Comment on above: Performed By: #### B MP #### [facility] [address] [place] [address] Dr. Reji Thomas WBC 7.1 103/ul Normal 4.0-11.[address] [facility] Comment on above: Performed By: #### B MP #### [facility] [address] [place] [address] Dr. Reji Thomas PROF CHEM 8 (BAS METB)on Anion gap [Moles/Vol] 10.5 mmol/L Normal [facility] Comment on above: Performed By: #### B TEACHING AIDE, CMP, TSH, LIPID #### [facility] [address] [place] [address] Dr. Reji Thomas Calcium [Mass/Vol] 8.9 mg/dL Normal 8.5-10.1 [facility] Comment on above: Performed By: #### B TEACHING AIDE, CMP, TSH, LIPID #### [facility] [address] [place] [address] Dr. Reji Thomas Chloride [Moles/Vol] 104 mmol/L Normal 98-[address] [facility] Comment on above: Performed By: #### B TEACHING AIDE, CMP, TSH, LIPID #### [facility] [address] [place] [address] Dr. Reji Thomas CO2 [Moles/Vol] 29.5 mmol/L Normal 21.0-32.0 [facility] Comment on above: Performed By: #### B TEACHING AIDE, CMP, TSH, LIPID #### [facility] [address] [place] [address] Dr. Reji Thomas Creatinine [Mass/Vol] 1.73 mg/dL Critically high 0.55-1.[address] [facility] Comment on above: Performed By: #### B TEACHING AIDE, CMP, TSH, LIPID #### [facility] [address] [address] [address] Reji Thomas EGFR-AF TURKS AND CAICOS ISLANDER 34 mL/min/1.73m2 Critically low >=[address] [facility] Comment on above: Performed By: #### B TEACHING AIDE, CMP, TSH, LIPID #### [facility] [address] [address] [address] Reji Thomas EGFR-NON AF TURKS AND CAICOS ISLANDER 28 mL/min/1.73m2 Critically low >=[address] [facility] Comment on above: Performed By: #### B TEACHING AIDE, CMP, TSH, LIPID #### [facility] [address] [place] [address] Dr. Reji Thomas Glucose [Mass/Vol] 79 mg/dL Normal 74-106 [facility] Comment on above: Performed By: #### B TEACHING AIDE, CMP, TSH, LIPID #### [facility] [address] [place] [address] Dr. Reji Thomas Potassium [Moles/Vol] 4.0 mmol/L Normal 3.5-5.[address] [facility] Comment on above: Performed By: #### B TEACHING AIDE, CMP, TSH, LIPID #### [facility] [address] [place] [address] Dr. Reji Thomas Sodium [Moles/Vol] 140 mmol/L Normal 136-145 [facility] Comment on above: Performed By: #### B TEACHING AIDE, CMP, TSH, LIPID #### [facility] [address] [address] [address] Reji Thomas Urea nitrogen [Mass/Vol] 22.0 mg/dL Critically high 7.0-18.[address] [facility] Comment on above: Performed By: #### B TEACHING AIDE, CMP, TSH, LIPID #### [facility] [address] [address] [address] Reji Thomas Urea nitrogen/Creatinine [Mass ratio] 12.7 mg/mg Normal [facility] Comment on above: Performed By: #### B TEACHING AIDE, CMP, TSH, LIPID #### [facility] [address] [address] [address] Reji Thomas PROTIMEon 05-15-2022 INR Coag (PPP) [Relative time] 2.53 {INR} Normal [facility] Comment on above: Performed By: #### B TEACHING AIDE, CMP, TSH, LIPID #### [facility] [address] [address] [address] Reji Thomas INR GUIDELINES SEE BELOW Normal [facility] Comment on above: Result Comment: SHY RED INR: 2.0 - 3.0 CONDITIONS NOT LISTED BELOW 2.5 - 3.5 FOR PROSTHETIC HEART VALVE REPLACEMENT 2.5 - 3.5 RECURRENT THROMBOSIS Performed By: #### B TEACHING AIDE, CMP, TSH, LIPID #### [facility] [address] [address] [address] Reji Thomas PT Coag (PPP) [Time] 25.7 s Critically high 9.0-11.[address] [facility] Comment on above: Performed By: #### B TEACHING AIDE, CMP, TSH, LIPID #### [facility] [address] [place] [address] Dr. Reji Thomas ECHOCARDIO M/2D COMPLETEon 0 05-04-2022 ECHOCARDIO M/2D COMPLETE Patient: INEZ JUAREZ Exam Date: 05/04/2022 : 1940 Gender:F Ordering : DR JENN PRADO M.D. Admission #: [id number] Family : Order #: [id number] CLICK HERE TO VIEW EXAM ECHOCARDIOGRAM REPORT [...] Area(A4C): 27.20 cm2 Left Atrium Systolic Volume(A2C): 869305 mm3 Left Atrium Systolic Volume(A4C): 78980 mm3 Mitral Valve MV E to A Ratio: 2.60 Deceleration [place]: 61507 mm/s2 Mitral Valve A-Wave Peak Velocity: 58.60 [...] Prado M.D. on 05/07/2022 at 11:[address] [facility] EVAN by IFAon 04-19-2022 Antinuclear Antibodies, IFA Positive Abnormal [facility] Comment on above: Result Comment: Nega tive <1:80 Borderline 1:80 Positive >1:80 Performed By: #### B TEACHING AIDE, CMP, TSH, LIPID #### [facility] [address] [address] [address] Reji Thomas Centriole Pattern Normal [facility] Comment on above: Performed By: #### B TEACHING AIDE, CMP, TSH, LIPID #### [facility] [address] [address] [address] Reji Thomas Centromere Pattern Normal [facility] Comment on above: Performed By: #### B TEACHING AIDE, CMP, TSH, LIPID #### [facility] [address] [address] [address] Reji Thomas Homogeneous Pattern 1:320 Critically high [facility] Comment on above: Result Comment: ICAP nomenclature: AC-1 Performed By: #### B TEACHING AIDE, CMP, TSH, LIPID #### [facility] [address] [address] [address] Reji Thomas Midbody Pattern Normal [facility] Comment on above: Performed By: #### B TEACHING AIDE, CMP, TSH, LIPID #### [facility] [address] [address] [address] Reji Thomas Note: Comment Normal [facility] Comment on above: Result Comment: [...] titers Nucleosomes, Histones Drug-induced SLE Speckled Sm, FINANCIAL SERVICE REP, SCL-70, SLE,MCTD,PSS (diffuse form), SS-A/SS-B Sjogrens Nucleolar SCL-70, PM-1/SCL High titers Scleroderma, PM/DM Centromere Centromere PSS (limited form) w/Crest syndrome variable Nuclear Dot [id number] Primary Biliary Cirrhosis Nuclear GP210, Primary Biliary Cirrhosis Membrane eleonora A,B,C Performed By: #### B TEACHING AIDE, CMP, TSH, LIPID #### [facility] [address] [address] [address] Reji Thomas Nuclear Dot Pattern Normal [facility] Comment on above: Performed By: #### B TEACHING AIDE, CMP, TSH, LIPID #### [facility] [address] [address] [address] Reji Thomas Nuclear Membrane Pattern Normal [facility] Comment on above: Performed By: #### B TEACHING AIDE, CMP, TSH, LIPID #### [facility] [address] [address] [address] Reji Thomas Nucleolar Pattern Normal [facility] Comment on above: Performed By: #### B TEACHING AIDE, CMP, TSH, LIPID #### [facility] [address] [address] [address] Reji Thomas PCNA Pattern Normal [facility] Comment on above: Performed By: #### B TEACHING AIDE, CMP, TSH, LIPID #### [facility] [address] [address] [address] Reji Thomas Speckled Pattern Normal [facility] Comment on above: Performed By: #### B TEACHING AIDE, CMP, TSH, LIPID #### [facility] [address] [address] [address] Reji Thomas Spindle Apparatus Pattern Normal [facility] Comment on above: Performed By: #### B TEACHING AIDE, CMP, TSH, LIPID #### [facility] [address] [address] [address] Reji Thomas ANCA (ANTINEUTROPHIL CYTOPLA MSMIC ABon 04-18-2022 Atypical pANCA <1:20 Normal Neg:<1:20 [facility] Comment on above: Result Comment: Seru m is slightly hemolyzed The atypical pANCA pattern has been observed in a significant percentage of patients with ulcerative colitis, primary sclerosing cholangitis and autoimmune hepatitis. Performed By: #### B MP #### [facility] [address] [address] [address] Reji Thomas Cytoplasmic (C-ANCA) <1:20 Normal Neg:<1:[address] [facility] Comment on above: Result Comment: Seru m is slightly hemolyzed Performed By: #### B MP #### [facility] [address] [address] [address] Reji Thomas Perinuclear (P-ANCA) <1:20 Normal Neg:<1:[address] [facility] Comment on above: Result Comment: Seru m is slightly hemolyzed The presence of positive fluorescence exhibiting P-ANCA or C-ANCA patterns alone is not specific for the diagnosis of Arlene's Granulomatosis (WG) or microscopic polyangiitis. Decisions about treatment should not be based solely on ANCA IFA results. The International ANCA [employer] Consensus recommends follow up testing of positive sera with both AL-3 and MPO-ANCA enzyme immunoassays. As many as 5% serum samples are positive only by EIA. Ref. AM J Clin Pathol 1999;111:507-513. Performed By: #### B MP #### [facility] [address] [place] [address] Dr. Reji Thomas ANTISCLERODERMA ABon 022 Antiscleroderma-70 Antibodies 0.3 AI Normal 0.0-0.[address] [facility] Comment on above: Performed By: #### B TEACHING AIDE, CMP, TSH, LIPID #### [facility] [address] [address] [address] Reji Thomas T3 UPTAKEon 04-18-2022 Free Thyroxine Index 1.8 Normal 1.2-4.[address] [facility] Comment on above: Performed By: #### B TEACHING AIDE, CMP, TSH, LIPID #### [facility] [address] [address] [address] Reji Thomas T3 Uptake 23 % Critically low 24-39 [facility] Comment on above: Performed By: #### B TEACHING AIDE, CMP, TSH, LIPID #### [facility] [address] [address] [address] Reji Thomas T4 LABCORPon 04-18-2022 T4 [Mass/Vol] 7.8 ug/dL Normal 4.5-12.0 [facility] Comment on above: Performed By: #### B TEACHING AIDE, CMP, TSH, LIPID #### [facility] [address] [place] [address] Dr. Reji Thomas BNPon 04-16-2022 Natriuretic peptide B (Bld) [Mass/Vol] 2870.0 pg/mL Critically high <=1,800.0 [facility] Comment on above: Result Comment: repe ated Performed By: #### B TEACHING AIDE, CMP, TSH, LIPID #### [facility] [address] [place] [address] Dr. Reji Thomas CBC AUTO DIFFon 04-16-2022 BASO # 0.1 103/ul Normal 0.0-0.[address] [facility] Comment on above: Performed By: #### B TEACHING AIDE, CMP, TSH, LIPID #### [facility] [address] [place] [address] Dr. Reji Thomas Basophils/100 WBC (Bld) 0.9 % Normal 0.2-2.[address] [facility] Comment on above: Performed By: #### B TEACHING AIDE, CMP, TSH, LIPID #### [facility] [address] [place] [address] Dr. Reji Thomas EO # 0.3 103/ul Normal 0.0-0.[address] [facility] Comment on above: Performed By: #### B TEACHING AIDE, CMP, TSH, LIPID #### [facility] [address] [place] [address] Dr. Reji Thomas Eosinophils/100 WBC (Bld) 3.9 % Normal 0.9-7.0 [facility] Comment on above: Performed By: #### B TEACHING AIDE, CMP, TSH, LIPID #### [facility] [address] [place] [address] Dr. Reji Thomas Erythrocyte distribution width (RBC) [Ratio] 15.9 % Critically high 11.0-15.[address] [facility] Comment on above: Performed By: #### B TEACHING AIDE, CMP, TSH, LIPID #### [facility] [address] [place] [address] Dr. Reji Thomas Hematocrit (Bld) [Volume fraction] 38.1 % Normal 36.0-48.[address] [facility] Comment on above: Performed By: #### B TEACHING AIDE, CMP, TSH, LIPID #### [facility] [address] [place] [address] Dr. Reji Thomas Hemoglobin (Bld) [Mass/Vol] 12.1 g/dL Normal 12.0-16.[address] [facility] Comment on above: Performed By: #### B TEACHING AIDE, CMP, TSH, LIPID #### [facility] [address] [place] [address] Dr. Reji Thomas IG # 0.02 10e3/ul Normal 0.00-0.[address] [facility] Comment on above: Performed By: #### B TEACHING AIDE, CMP, TSH, LIPID #### [facility] [address] [place] [address] Dr. Reji Thomas IG % 0.3 % Normal 0.0-0.[address] [facility] Comment on above: Performed By: #### B TEACHING AIDE, CMP, TSH, LIPID #### [facility] [address] [place] [address] Dr. Reji Thomas LYMPH # 1.6 103/ul Normal 1.2-3.8 [facility] Comment on above: Performed By: #### B TEACHING AIDE, CMP, TSH, LIPID #### [facility] [address] [place] [address] Dr. Reji Thomas Lymphocytes/100 WBC (Bld) 22.6 % Normal 20.5-60.[address] [facility] Comment on above: Performed By: #### B TEACHING AIDE, CMP, TSH, LIPID #### [facility] [address] [place] [address] Dr. Reji Thomas MANUAL DIFF REQ NO Normal [facility] Comment on above: Performed By: #### B TEACHING AIDE, CMP, TSH, LIPID #### [facility] [address] [place] [address] Dr. Reji Thomas MCH (RBC) [Entitic mass] 26.5 pg Critically low 26.7-34.[address] [facility] Comment on above: Performed By: #### B TEACHING AIDE, CMP, TSH, LIPID #### [facility] [address] [place] [address] Dr. Reji Thomas MCHC (RBC) [Mass/Vol] 31.8 g/dL Normal 29.9-35.2 [facility] Comment on above: Performed By: #### B TEACHING AIDE, CMP, TSH, LIPID #### [facility] [address] [place] [address] Dr. Reji Thomas MCV (RBC) [Entitic vol] 83.4 fL Normal 81.0-99.0 [facility] Comment on above: Performed By: #### B TEACHING AIDE, CMP, TSH, LIPID #### [facility] [address] [place] [address] Dr. Reji Thomas MONO # 0.6 103/ul Normal 0.3-0.8 [facility] Comment on above: Performed By: #### B TEACHING AIDE, CMP, TSH, LIPID #### [facility] [address] [place] [address] Dr. Reji Thomas Monocytes/100 WBC (Bld) 9.3 % Normal 1.7-12.[address] [facility] Comment on above: Performed By: #### B TEACHING AIDE, CMP, TSH, LIPID #### [facility] [address] [place] [address] Dr. Reji Thomas NEUT # 4.3 103/ul Normal 1.4-6.[address] [facility] Comment on above: Performed By: #### B TEACHING AIDE, CMP, TSH, LIPID #### [facility] [address] [place] [address] Dr. Reji Thomas Neutrophils/100 WBC (Bld) 63.0 % Normal 43.0-75.0 [facility] Comment on above: Performed By: #### B TEACHING AIDE, CMP, TSH, LIPID #### [facility] [address] [place] [address] Dr. Reji Thomas Platelet mean volume (Bld) [Entitic vol] 9.2 fL Critically low 9.5-13.5 [facility] Comment on above: Performed By: #### B TEACHING AIDE, CMP, TSH, LIPID #### [facility] [address] [address] [address] Reji Thomas PLT 211 103/ul Normal 150-[address] [facility] Comment on above: Performed By: #### B TEACHING AIDE, CMP, TSH, LIPID #### [facility] [address] [address] [address] Reji Thomas RBC 4.57 106/ul Normal 4.20-5.[address] [facility] Comment on above: Performed By: #### B TEACHING AIDE, CMP, TSH, LIPID #### [facility] [address] [place] [address] Dr. Reji Thomas WBC 6.9 103/ul Normal 4.0-11.[address] [facility] Comment on above: Performed By: #### B TEACHING AIDE, CMP, TSH, LIPID #### [facility] [address] [place] [address] Dr. Reji Thomas GLYCOHEMOGLOBIN A1Con 2021 ADA RECOMMENDATION SEE BELOW Normal [facility] Comment on above: Result Comment: ADA RECOMMENDED LIMIT 4.0 - 6.0 ADA THERAPEUTIC TARGET < 7.0 ACTION SUGGESTED > 7.0 Performed By: #### B TEACHING AIDE, CMP, TSH, LIPID #### [facility] [address] [place] [address] Dr. Reji Thomas Glucose [Mass/Vol] 100 mg/dL Normal [facility] Comment on above: Performed By: #### B TEACHING AIDE, CMP, TSH, LIPID #### [facility] [address] [place] [address] Dr. Reji Thomas HbA1c (Bld) [Mass fraction] 5.1 % Normal 4.5-6.[address] [facility] Comment on above: Performed By: #### B TEACHING AIDE, CMP, TSH, LIPID #### [facility] [address] [place] [address] Dr. Reji Thomas IRONon 04-16-2022 Iron [Mass/Vol] 42.0 ug/dL Critically low 50.0-170.0 [facility] Comment on above: Performed By: #### B TEACHING AIDE, CMP, TSH, LIPID #### [facility] [address] [address] [address] Reji Thomas LIPID PROFILEon 04-16-2022 CHOL-HDL RATIO NORM SEE BELOW Normal [facility] Comment on above: Result Comment: 3.3 - 4.4 LOW RISK 4.4 - 7.1 AVERAGE RISK 7.1 - 11.0 MODERATE RISK >11.0 HIGH RISK Performed By: #### B TEACHING AIDE, CMP, TSH, LIPID #### [facility] [address] [address] [address] Reji Thomas Cholesterol [Mass/Vol] 176 mg/dL Normal <=[address] [facility] Comment on above: Performed By: #### B TEACHING AIDE, CMP, TSH, LIPID #### [facility] [address] [place] [address] Dr. Reji Thmoas Cholesterol in HDL [Mass/Vol] 52 mg/dL Normal 40-[address] [facility] Comment on above: Performed By: #### B TEACHING AIDE, CMP, TSH, LIPID #### [facility] [address] [address] [address] Reji Thomas Cholesterol in LDL [Mass/Vol] 102.8 mg/dL Normal [facility] Comment on above: Performed By: #### B TEACHING AIDE, CMP, TSH, LIPID #### [facility] [address] [address] [address] Reji Thomas Cholesterol.total/Ch olesterol in HDL [Mass ratio] 3.4 {ratio} Normal [facility] Comment on above: Performed By: #### B TEACHING AIDE, CMP, TSH, LIPID #### [facility] [address] [place] [address] Dr. Reji Thomas HDL NORMAL > or = 60 mg/dl - LOW CARDIOVASCULAR RISK <40 mg/dl - HIGH CARDIOVASCULAR RISK Normal [facility] Comment on above: Performed By: #### B TEACHING AIDE, CMP, TSH, LIPID #### [facility] [address] [place] [address] Dr. Reji Thomas LDL CALC NORMAL SEE BELOW Normal [facility] Comment on above: Result Comment: <100 mg/dl OPTIMAL 100 - 129 mg/dl NEAR OR ABOVE OPTIMAL 130 - 159 mg/dl BORDERLINE HIGH 160 - 189 mg/dl HIGH >190 mg/dl VERY HIGH Performed By: #### B TEACHING AIDE, CMP, TSH, LIPID #### [facility] [address] [address] [address] Reji Thomas Triglyceride [Mass/Vol] 106 mg/dL Normal <=[address] [facility] Comment on above: Performed By: #### B TEACHING AIDE, CMP, TSH, LIPID #### [facility] [address] [address] [address] Reji Thomas VLDL CALC 21.2 mg/dL Normal [facility] Comment on above: Performed By: #### B TEACHING AIDE, CMP, TSH, LIPID #### [facility] [address] [place] [address] Dr. Reji Thomas PROF 14(COMP METB)on 022 Albumin [Mass/Vol] 3.6 g/dL Normal 3.4-5.0 [facility] Comment on above: Performed By: #### B TEACHING AIDE, CMP, TSH, LIPID #### [facility] [address] [place] [address] Dr. Reji Thomas Albumin/Globulin [Mass ratio] 0.9 {ratio} Normal [facility] Comment on above: Performed By: #### B TEACHING AIDE, CMP, TSH, LIPID #### [facility] [address] [place] [address] Dr. Reji Thomas ALP [Catalytic activity/Vol] 62 U/L Normal 46-[address] [facility] Comment on above: Performed By: #### B TEACHING AIDE, CMP, TSH, LIPID #### [facility] [address] [place] [address] Dr. Reji Thomas ALT [Catalytic activity/Vol] 14 U/L Normal 14-[address] [facility] Comment on above: Performed By: #### B TEACHING AIDE, CMP, TSH, LIPID #### [facility] [address] [place] [address] Dr. Reji Thomas Anion gap [Moles/Vol] 14.5 mmol/L Normal [facility] Comment on above: Performed By: #### B TEACHING AIDE, CMP, TSH, LIPID #### [facility] [address] [place] [address] Dr. Reji Thomas AST [Catalytic activity/Vol] 17 U/L Normal 15-[address] [facility] Comment on above: Performed By: #### B TEACHING AIDE, CMP, TSH, LIPID #### [facility] [address] [address] [address] Reji Thomas Bilirubin [Mass/Vol] 0.6 mg/dL Normal 0.2-1.[address] [facility] Comment on above: Performed By: #### B TEACHING AIDE, CMP, TSH, LIPID #### [facility] [address] [address] [address] Reji Thomas Calcium [Mass/Vol] 8.8 mg/dL Normal 8.5-10.1 [facility] Comment on above: Performed By: #### B TEACHING AIDE, CMP, TSH, LIPID #### [facility] [address] [address] [address] Reji Thomas Chloride [Moles/Vol] 102 mmol/L Normal 98-107 [facility] Comment on above: Performed By: #### B TEACHING AIDE, CMP, TSH, LIPID #### [facility] [address] [address] [address] Reji Thomas CO2 [Moles/Vol] 26.3 mmol/L Normal 21.0-32.0 [facility] Comment on above: Performed By: #### B TEACHING AIDE, CMP, TSH, LIPID #### [facility] [address] [address] [address] Reji Thomas Creatinine [Mass/Vol] 1.76 mg/dL Critically high 0.55-1.[address] [facility] Comment on above: Performed By: #### B TEACHING AIDE, CMP, TSH, LIPID #### [facility] [address] [address] [address] Reji Thomas EGFR-AF TURKS AND CAICOS ISLANDER 33 mL/min/1.73m2 Critically low >=60 [facility] Comment on above: Performed By: #### B TEACHING AIDE, CMP, TSH, LIPID #### [facility] [address] [address] [address] Reji Thomas EGFR-NON AF TURKS AND CAICOS ISLANDER 28 mL/min/1.73m2 Critically low >=60 [facility] Comment on above: Performed By: #### B TEACHING AIDE, CMP, TSH, LIPID #### [facility] [address] [place] [address] Dr. Reji Thomas Globulin (S) [Mass/Vol] 4.2 g/dL Normal [facility] Comment on above: Performed By: #### B TEACHING AIDE, CMP, TSH, LIPID #### [facility] [address] [place] [address] Dr. Reji Thomas Glucose [Mass/Vol] 81 mg/dL Normal 74-106 [facility] Comment on above: Performed By: #### B TEACHING AIDE, CMP, TSH, LIPID #### [facility] [address] [place] [address] Dr. Reji Thomas Potassium [Moles/Vol] 3.8 mmol/L Normal 3.5-5.1 [facility] Comment on above: Performed By: #### B TEACHING AIDE, CMP, TSH, LIPID #### [facility] [address] [place] [address] Dr. Reji Thomas Protein [Mass/Vol] 7.8 g/dL Normal 6.4-8.2 [facility] Comment on above: Performed By: #### B TEACHING AIDE, CMP, TSH, LIPID #### [facility] [address] [place] [address] Dr. Reji Thomas Sodium [Moles/Vol] 139 mmol/L Normal 136-145 [facility] Comment on above: Performed By: #### B TEACHING AIDE, CMP, TSH, LIPID #### [facility] [address] [place] [address] Dr. Reji Thomas Urea nitrogen [Mass/Vol] 27.0 mg/dL Critically high 7.0-18.[address] [facility] Comment on above: Performed By: #### B TEACHING AIDE, CMP, TSH, LIPID #### [facility] [address] [place] [address] Dr. Reji Thomas Urea nitrogen/Creatinine [Mass ratio] 15.3 mg/mg Normal [facility] Comment on above: Performed By: #### B TEACHING AIDE, CMP, TSH, LIPID #### [facility] [address] [place] [address] Dr. Reji Thomas PROTIMEon 04-16-2022 INR Coag (PPP) [Relative time] 1.92 {INR} Normal [facility] Comment on above: Performed By: #### B TEACHING AIDE, CMP, TSH, LIPID #### [facility] [address] [place] [address] Dr. Reji Thomas INR GUIDELINES SEE BELOW Normal [facility] Comment on above: Result Comment: SHY RED INR: 2.0 - 3.0 CONDITIONS NOT LISTED BELOW 2.5 - 3.5 FOR PROSTHETIC HEART VALVE REPLACEMENT 2.5 - 3.5 RECURRENT THROMBOSIS Performed By: #### B TEACHING AIDE, CMP, TSH, LIPID #### [facility] [address] [place] [address] Dr. Reji Thomas PT Coag (PPP) [Time] 19.9 s Critically high 9.0-11.6 [facility] Comment on above: Performed By: #### B TEACHING AIDE, CMP, TSH, LIPID #### [facility] [address] [place] [address] Dr. Reji Thomas [facility] 37 mm/hr Critically high <=30 [facility] Comment on above: Performed By: #### B TEACHING AIDE, CMP, TSH, LIPID #### [facility] [address] [place] [address] Dr. Reji Thomas TSHon 04-16-2022 TSH 1.941 uIU/mL Normal 0.358-3.740 [facility] Comment on above: Performed By: #### B TEACHING AIDE, CMP, TSH, LIPID #### [facility] [address] [place] [address] Dr. Reji Thomas TSH RANGE SEE BELOW Normal [facility] Comment on above: Result Comment: <0.3 4 UIU/ml HYPERTHYROID 0.34-5.60 UIU/ml EUTHYROID >5.60 UIU/ml HYPOTHYROID Performed By: #### B TEACHING AIDE, CMP, TSH, LIPID #### [facility] [address] [place] [address] Dr. Reji Thomas VITAMIN D 25 OHon 04-16-2022 VIT D 25-OH 56.6 ng/mL Normal [facility] Comment on above: Performed By: #### B TEACHING AIDE, CMP, TSH, LIPID #### [facility] [address] [place], [place] [address] Dr. Reij Thomas VIT D RANGES SEE BELOW Normal [facility] Comment on above: Result Comment: <20 ng/mL Vit D deficient 20 - <30 ng/mL Vit D insufficient 30 - 100 ng/mL Vit D sufficient >100 ng/mL Potential Toxicity Performed By: #### B TEACHING AIDE, CMP, TSH, LIPID #### [facility] [address] [place], [place] [address] Dr. Rjei Thomas Cardiovascular Lab Reporton 11-02-2021 Cardiovascular Lab Report [facility] Patient Name: Inez Juarez MR #: [id number] [facility] Physician: Jenn Prado M.D. Department of Service Date: 11/01/2021 Medicine Birthdate: 1940 Division of Room #: Cardiology Adult Cardiovascular Services [address] [place] [address] Cardiovascular Laboratory Report INDICATION: The patient is [...] signed consent. She was brought to labor relations specialist in a fasting state. The right neck area was prepped and draped in usual fashion. Micropuncture technique and ultrasound guidance were used for access in the right internal jugular vein. A 6-Mongolian x 11 cm sheath was placed. A 6-Mongolian Hernández catheter was used for heart catheterization [...] Prado M.D. Date Trans: 11/01/2021 11:22 P/alondra [id number] cc: Bruce Rizvi M.D. [address], [facility] [address] [place] [facility] Cardiovascular Lab Reporton 06-02-2021 Cardiovascular Lab Report [facility] Patient Name: Inez Juarez MR #: [id number] [facility] Physician: Jenn Prado M.D. Department of Service Date: 06/02/2021 Medicine Birthdate: 1940 Division of Room #: CC Cardiology Adult Cardiovascular Services [place] [address] Cardiovascular Laboratory Report INDICATION: The patient is [...] informed consent. She was brought to labor relations specialist in a fasting state. The right neck area was prepped and draped in usual fashion. Using micropuncture technique and ultrasound guidance, the right internal jugular vein was accessed and a 6-Mongolian x 11 cm sheath was placed. A 6-Mongolian Hernández catheter was used for heart catheterization [...] Prado M.D. Date Trans: 06/02/2021 02:42 P/mmo [id number] cc: Bruce Rizvi M.D. [address] [place] [address] [facility] Encounters Encounter Date Encounter Type Care Provider Facility Start: 06-28-2025 End: 06-28-2025 ambulatory JENN PRADO [facility] Start: 03-22-2023 End: 03-23-[address] [...] Start: 11-01-2021 End: 11-02-2021 ambulatory PROVIDER UNKNOWN [facility] Start: 06-02-2021 End: 06-03-2021 ambulatory PROVIDER UNKNOWN [facility] Payers Date Payer Category Payer Medicare [id number] 1961 Medicare [id number] 1961 Medicare [id number] 1961 Self-pay [id number] 1940 Unknown [id number] 2.16.8 [id number] 1940 Unknown [id number] 2.16.8 40.1.255010.3.579.2.647 1940 Unknown [id number] 2.16.84 0.1.255775.3.579.2.593 1938 Unknown [id number] 2.16.84 0.1.216372.3.579.2.593 1938 Unknown [id number] 2.16.84 0.1.957859.3.579.2.593 1938 Unknown [id number] 2.16.84 0.1.499715.3.579.2.593 1938 Unknown [id number] 2.16.84 0.1.546803.3.579.2.593 1938 Unknown [id number] 2.16.84 0.1.216662.3.579.2.593 1938 Unknown [id number] 2.16.84 0.1.977314.3.579.2.593 1938 Unknown [id number] 2.16.84 0.1.627372.3.579.2.593 1938 Unknown [id number] 2.16.84 0.1.122632.3.579.2.593 1938 Unknown [id number] 2.16.84 0.1.190520.3.579.2.593 1938 Unknown [id number] 2.16.84 0.1.381391.3.579.2.593 1938 Unknown [id number] 2.16.84 0.1.473073.3.579.2.593 1938 Unknown [id number] 2.16.84 0.1.822723.3.579.2.593 1938 Unknown [id number] 2.16.84 0.1.627042.3.579.2.593 1938 Unknown [id number] 2.16.84 0.1.680809.3.579.2.593 1938 Unknown [id number] 2.16.84 0.1.070101.3.579.2.593 1938 Unknown [id number] 2.16.84 0.1.831753.3.579.2.593 1938 Unknown [id number] 2.16.84 0.1.871453.3.579.2.593 1938 Unknown [id number] 2.16.84 0.1.896457.3.579.2.593 Private Health Insurance [id number] Progress note 06-28-2025 Note Date & Type Note Facility 06-28-2025 Note [place] Cardiology - [facility] Petrona Juarez is a 85 y.o. year old female patient being seen for a 1 year follow up with recent Echo. Patient states she feels pretty good just tired. Patient denies chest pain,palpitations/racing heart, dizziness/lightheadedness. Patient complains of SOB, BOURGEOIS, leg swelling, bruising/bleeding/discoloration, and loss of balance. Patient Active Problem List Diagnosis Atrial fibrillation ([facility]/HCC) Essential hypertension Hyperlipidemia Gastroesophageal reflux disease Mitral valve disorder Pulmonary hypertension ([facility]/HCC) Renal failure syndrome CHF (congestive heart failure) ([facility]) Chronic kidney disease Gout Abnormal result of [...] Musculoskeletal: Positive for (more content not included)... [facility] Summary Purpose Family History No Family History Records FoundNo Family History Records FoundNo Family History Records FoundNo Family History Records Found Advance Directives No Advanced Directives Records FoundNo Advanced Directives Records FoundNo Advanced Directives Records FoundNo Advanced Directives Records Found Additional Source Comments INFORMATION SOURCE (unrecogn ized section and content) DATE CREATED AUTHOR 11/03/2021 [facility] DATE CREATED AUTHOR AUTHOR'S ORGANIZ ATION 07/05/2022 [facility] DATE CREATED AUTHOR AUTHOR'S ORGANIZ ATION 03/23/[address] [facility] DATE CREATED AUTHOR AUTHOR'S ORGANIZ ATION 08/06/2025 [facility] FOR RECORDS PERTAINING TO PATIENTS WHO [...] BE BASED ON THE PRIMARY CLINICAL RECORDS. [employer] [facility]. provides no warranty or guarantee of the accuracy or completeness of information in this document.
== END 2025-08-12 11:38 | disposition home or self-care (01) ==
LOC: LAB 11:40
PROVIDERS: PCP Family Medicine; Visit Provider Family Medicine
DX: I51.7 Cardiomegaly (principal); R94.4 Abnormal results of kidney function studies
CPT/HCPCS: 36415; 80048

== ENCOUNTER 2025-08-16 20:46 | Inpatient (IN) | payer MEDICARE, SELFPAY ==
--- OUTSIDE RECORDS SUMMARY | 2025-07-23 11:15 | XMS_ITS ---
Author Organization [facility] [place] Address [address] [place] [address] Care Team Providers Care Baseball Sewer Hand Name Role Phone DmitriRegino Primary Care Provider [phone] REASON FOR VISIT wheezing not feeling well Encounters Encounter Location Date Provider Diagnosis [facility] [address] [place] [address] 07/23/2025 Regino Rizvi Plan Of Treatment Next Appt Details Provider Name:Regino Rizvi, 11:00:00 AM, [address] [place], [address], Progress Notes * LARRY InezDOB:1940 (85 yo F)Acc No.[id number]:07/23/2025 UNLOCKED PROGRESS NOTE Progress Note Patient: Inez SHARPE Provider: Melvin Rizvi MD (TTC) :1940 A ge:85 Y S ex:Female Date:07/23/2025 Address:[facility] [address], [id number] Subjective: * Chief Complaints: * 1 . Wheezing not feeling well. * Medical History: Objective: * Vitals: Assessment: Plan: * Treatment: * * Electronic signature of Regino Rizvi MD, [phone] on 08/16/2025 at 09:04 PM EDT Sign off status: Pending Visit Status: C ANCPHONE (Cancelled Phone) * Provider: Melvin Rizvi MD (TTC) Date: 0 07/23/2025 Generated for Minda olivares/Roland/Piter on: 1 09:04 PM SAMEERAT
--- OUTSIDE RECORDS SUMMARY | 2025-08-03 13:41 | XMS_ITS ---
Author Organization [facility] [place] Address [address] [place] [address] Care Team Providers Care Oil Spraying Machine Operator Name Role Phone Regino Rizvi Primary Care Provider REASON FOR VISIT review labs Medications Medication SIG (Take, Route, Fr equency, Duration) Notes Start Date End Date Status Furosemide 80 MG 1 tablet Orally in t he morning; Duration: 30 days Active Encounters Encounter Location Date Provider Diagnosis [facility] [address] [place] [address] 08/03/2025 Regino Rizvi Chronic kidney disease, stage [...] Provider Name:Regino Rizvi, 11:00:00 AM, [address] [place], [address], Progress Notes * Inez JUAREZDOB:1940 (85 yo F)Acc No.[id number]:08/03/2025 Patient: Sybil Inez JUAREZ :1940 A ge:85 Y S ex:Female Address:[address], [place] [address] * Refills Stop Entresto Tablet, 24-26 MG, [...] Codes: * true * Date: Generated for Midna olivares/Roland/Maycolsmitting on: 09:04 PM EDT
[2025-08-16] VITALS (29 sets, daily range): BP systolic 110–141; BP diastolic 47–111; PULSE 70–97; TEMP 37.1; O2SAT 75–97; BMI 27.7
--- OUTSIDE RECORDS SUMMARY | 2025-08-16 21:04 | XMS_ITS | CCD ---
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 Rizvi's office called regarding [...] this is all ok with you. Thanks. [facility] Office Visiton 06-28-2025 Follow-up visit [id number] Inez Juarez 1940 F Date Provider Department Center 06/28/2025 Rema-JENN PRADO BARBRA Acuña Family History Problem Relation Age of Onset Hypertension Mother Coronary artery disease Father Hypertension Father Family Status - Relation Status Age at Mother Father Level of Service:63702 NE OFFICE/OUTPATIENT ESTABLISHED MOD MDM 30 MIN [facility] Orders Onlyon 06-10-2025 Orders Only [id number] Inez Juarez 1940 Date Provider Department Center 06/10/2025 [id number], HISTORICAL BARBRA Acuña Family History Problem Relation Age of Onset Hypertension Mother Coronary artery disease Father Hypertension Father Family Status - Relation Status Age at Mother Father [facility] BNPon 03-22-2023 Natriuretic peptide B (Bld) [Mass/Vol] 1423.0 pg/mL Normal <=1,800.0 [facility] Comment on above: Performed By: #### B SALES DEPARTMENT SUPERVISOR, CMP, TSH, LIPID #### [facility] [address] [address] [address] Reji Thomas CBC AUTO DIFFon 03-22-2023 BASO # 0.1 103/ul Normal 0.0-0.1 [facility] Comment on above: Performed By: #### B MP #### [facility] [address] [place] [address] Dr. Reji Thomas Basophils/100 WBC (Bld) 1.0 % Normal 0.2-2.0 [facility] Comment on above: Performed By: #### B MP #### [facility] [address] [place] [address] Dr. Reji Thomas EO # 0.2 103/ul Normal 0.0-0.7 [facility] Comment on above: Performed By: #### B MP #### [facility] [address] [place] [address] Dr. Rjei Thomas Eosinophils/100 WBC (Bld) 3.3 % Normal 0.9-7.0 [facility] Comment on above: Performed By: #### B MP #### [facility] [address] [place] [address] Dr. Reji Thomas Erythrocyte distribution width (RBC) [Ratio] 15.4 % Critically high 11.0-15.0 [facility] Comment on above: Performed By: #### B MP #### [facility] [address] [place] [address] Dr. Reji Thomas Hematocrit (Bld) [Volume fraction] 35.2 % Critically low 36.0-48.0 [facility] Comment on above: Performed By: #### B MP #### [facility] [address] [place] [address] Dr. Reji Thomas Hemoglobin (Bld) [Mass/Vol] 11.4 g/dL Critically low 12.0-16.0 [facility] Comment on above: Performed By: #### B MP #### [facility] [address] [place] [address] Dr. Reji Thomas IG # 0.02 10e3/ul Normal 0.00-0.03 [facility] Comment on above: Performed By: #### B MP #### [facility] [address] [place] [address] Dr. Reji Thomas IG % 0.3 % Normal 0.0-0.5 [facility] Comment on above: Performed By: #### B MP #### [facility] [address] [place] [address] Dr. Reji Thomas LYMPH # 1.4 103/ul Normal 1.2-3.8 [facility] Comment on above: Performed By: #### B MP #### [facility] [address] [place] [address] Dr. Reji Thomas Lymphocytes/100 WBC (Bld) 22.6 % Normal 20.5-60.0 [facility] Comment on above: Performed By: #### B MP #### [facility] [address] [place] [address] Dr. Reji Thomas MANUAL DIFF REQ NO Normal [facility] Comment on above: Performed By: #### B MP #### [facility] [address] [place] [address] Dr. Reji Thomas MCH (RBC) [Entitic mass] 27.0 pg Normal 26.7-34.0 [facility] Comment on above: Performed By: #### B MP #### [facility] [address] [place] [address] Dr. Reji Thomas MCHC (RBC) [Mass/Vol] 32.4 g/dL Normal 29.9-35.2 [facility] Comment on above: Performed By: #### B MP #### [facility] [address] [place] [address] Dr. Reji Thomas MCV (RBC) [Entitic vol] 83.2 fL Normal 81.0-99.0 [facility] Comment on above: Performed By: #### B MP #### [facility] [address] [place] [address] Dr. Reji Thomas MONO # 0.5 103/ul Normal 0.3-0.8 [facility] Comment on above: Performed By: #### B MP #### [facility] [address] [place] [address] Dr. Reji Thomas Monocytes/100 WBC (Bld) 8.5 % Normal 1.7-12.0 [facility] Comment on above: Performed By: #### B MP #### [facility] [address] [place] [address] Dr. Reji Thomas NEUT # 4.0 103/ul Normal 1.4-6.5 [facility] Comment on above: Performed By: #### B MP #### [facility] [address] [place] [address] Dr. Reji Thomas Neutrophils/100 WBC (Bld) 64.3 % Normal 43.0-75.0 [facility] Comment on above: Performed By: #### B MP #### [facility] [address] [place] [address] Dr. Reji Thomas Platelet mean volume (Bld) [Entitic vol] 8.9 fL Critically low 9.5-13.5 [facility] Comment on above: Performed By: #### B MP #### [facility] [address] [place] [address] Dr. Reji Thomas PLT 226 103/ul Normal 150-450 [facility] Comment on above: Performed By: #### B MP #### [facility] [address] [place] [address] Dr. Reji Thomas RBC 4.23 106/ul Normal 4.20-5.40 [facility] Comment on above: Performed By: #### B MP #### [facility] [address] [place] [address] Dr. Reji Thomas WBC 6.3 103/ul Normal 4.0-11.0 [facility] Comment on above: Performed By: #### B MP #### [facility] [address] [place] [address] Dr. Reji Thomas FREE THYROXINE INDEX T7on FTI 2.40 Normal 1.30-4.50 [facility] Comment on above: Performed By: #### B SALES DEPARTMENT SUPERVISOR, CMP, TSH, LIPID #### [facility] [address] [address] [address] Reji Thomas T3U 32.0 % Normal 30.0-39.0 [facility] Comment on above: Performed By: #### B SALES DEPARTMENT SUPERVISOR, CMP, TSH, LIPID #### [facility] [address] [address] [address] Reji Thomas T4 [Mass/Vol] 7.50 ug/dL Normal 4.80-13.90 [facility] Comment on above: Performed By: #### B SALES DEPARTMENT SUPERVISOR, CMP, TSH, LIPID #### [facility] [address] [address] [address] Reji Thomas GLYCOHEMOGLOBIN A1Con 2022 ADA RECOMMENDATION SEE BELOW Normal [facility] Comment on above: Result Comment: ADA RECOMMENDED LIMIT 4.0 - 6.0 ADA THERAPEUTIC TARGET < 7.0 ACTION SUGGESTED > 7.0 Performed By: #### B SALES DEPARTMENT SUPERVISOR, CMP, TSH, LIPID #### [facility] [address] [address] [address] Reji Thomas Glucose [Mass/Vol] 97 mg/dL Normal [facility] Comment on above: Performed By: #### B SALES DEPARTMENT SUPERVISOR, CMP, TSH, LIPID #### [facility] [address] [address] [address] Reji Thomas HbA1c (Bld) [Mass fraction] 5.0 % Normal 4.5-6.2 [facility] Comment on above: Performed By: #### B SALES DEPARTMENT SUPERVISOR, CMP, TSH, LIPID #### [facility] [address] [address] [address] Reji Thomas IRONon 03-22-2023 Iron [Mass/Vol] 47.0 ug/dL Critically low 50.0-170.0 [facility] Comment on above: Performed By: #### B SALES DEPARTMENT SUPERVISOR, CMP, TSH, LIPID #### [facility] [address] [address] [address] Reji Thomas LIPID PROFILEon 03-22-2023 CHOL-HDL RATIO NORM SEE BELOW Normal [facility] Comment on above: Result Comment: 3.3 - 4.4 LOW RISK 4.4 - 7.1 AVERAGE RISK 7.1 - 11.0 MODERATE RISK >11.0 HIGH RISK Performed By: #### M G, TSH, LIPID, T7, CMP, BNP #### [facility] [address] [address] [address] Reji Thomas Cholesterol [Mass/Vol] 188 mg/dL Normal <=200 [facility] Comment on above: Performed By: #### M G, TSH, LIPID, T7, CMP, BNP #### [facility] [address] [address] [address] Reji Thomas Cholesterol in HDL [Mass/Vol] 53 mg/dL Normal 40-60 [facility] Comment on above: Performed By: #### M G, TSH, LIPID, T7, CMP, BNP #### [facility] [address] [address] [address] Reji Thomas Cholesterol in LDL [Mass/Vol] 111.6 mg/dL Normal [facility] Comment on above: Performed By: #### M G, TSH, LIPID, T7, CMP, BNP #### [facility] [address] [address] [address] Reji Thomas Cholesterol.total/Ch olesterol in HDL [Mass ratio] 3.5 {ratio} Normal [facility] Comment on above: Performed By: #### M G, TSH, LIPID, T7, CMP, BNP #### [facility] [address] [address] [address] Reji Thomas HDL NORMAL > or = 60 mg/dl - LOW CARDIOVASCULAR RISK <40 mg/dl - HIGH CARDIOVASCULAR RISK Normal [facility] Comment on above: Performed By: #### M G, TSH, LIPID, T7, CMP, BNP #### [facility] [address] [place] [address] Dr. Reji Thomas LDL CALC NORMAL SEE BELOW Normal [facility] Comment on above: Result Comment: <100 mg/dl OPTIMAL 100 - 129 mg/dl NEAR OR ABOVE OPTIMAL 130 - 159 mg/dl BORDERLINE HIGH 160 - 189 mg/dl HIGH >190 mg/dl VERY HIGH Performed By: #### M G, TSH, LIPID, T7, CMP, BNP #### [facility] [address] [place] [address] Dr. Reji Thomas Triglyceride [Mass/Vol] 117 mg/dL Normal <=150 [facility] Comment on above: Performed By: #### M G, TSH, LIPID, T7, CMP, BNP #### [facility] [address] [address] [address] Reji Thomas VLDL CALC 23.4 mg/dL Normal [facility] Comment on above: Performed By: #### M G, TSH, LIPID, T7, CMP, BNP #### [facility] [address] [place] [address] Dr. Reji Thomas MAGNESIUMon 03-22-2023 Magnesium [Mass/Vol] 2.4 mg/dL Normal 1.8-2.4 [facility] Comment on above: Performed By: #### B SALES DEPARTMENT SUPERVISOR, CMP, TSH, LIPID #### [facility] [address] [place] [address] Dr. Reji Thomas PROF 14(COMP METB)on 023 Albumin [Mass/Vol] 3.4 g/dL Normal 3.4-5.0 [facility] Comment on above: Performed By: #### M G, TSH, LIPID, T7, CMP, BNP #### [facility] [address] [place] [address] Dr. Reji Thomas Albumin/Globulin [Mass ratio] 0.8 {ratio} Normal [facility] Comment on above: Performed By: #### M G, TSH, LIPID, T7, CMP, BNP #### [facility] [address] [address] [address] Reji Thomas ALP [Catalytic activity/Vol] 61 U/L Normal 46-116 [facility] Comment on above: Performed By: #### M G, TSH, LIPID, T7, CMP, BNP #### [facility] [address] [address] [address] Reji Thomas ALT [Catalytic activity/Vol] 15 U/L Normal 14-59 [facility] Comment on above: Performed By: #### M G, TSH, LIPID, T7, CMP, BNP #### [facility] [address] [place] [address] Dr. Reji Thomas Anion gap [Moles/Vol] 13.1 mmol/L Normal [facility] Comment on above: Performed By: #### M G, TSH, LIPID, T7, CMP, BNP #### [facility] [address] [place] [address] Dr. Reji Thomas AST [Catalytic activity/Vol] 13 U/L Critically low 15-37 [facility] Comment on above: Performed By: #### M G, TSH, LIPID, T7, CMP, BNP #### [facility] [address] [place] [address] Dr. Reji Thomas Bilirubin [Mass/Vol] 0.4 mg/dL Normal 0.2-1.0 [facility] Comment on above: Performed By: #### M G, TSH, LIPID, T7, CMP, BNP #### [facility] [address] [place] [address] Dr. Reji Thomas Calcium [Mass/Vol] 8.5 mg/dL Normal 8.5-10.1 [facility] Comment on above: Performed By: #### M G, TSH, LIPID, T7, CMP, BNP #### [facility] [address] [place] [address] Dr. Reji Thomas Chloride [Moles/Vol] 106 mmol/L Normal 98-107 [facility] Comment on above: Performed By: #### M G, TSH, LIPID, T7, CMP, BNP #### [facility] [address] [place] [address] Dr. Reji Thomas CO2 [Moles/Vol] 27.6 mmol/L Normal 21.0-32.0 [facility] Comment on above: Performed By: #### M G, TSH, LIPID, T7, CMP, BNP #### [facility] [address] [place] [address] Dr. Reji Thomas Creatinine [Mass/Vol] 2.32 mg/dL Critically high 0.55-1.02 [facility] Comment on above: Performed By: #### M G, TSH, LIPID, T7, CMP, BNP #### [facility] [address] [place] [address] Dr. Reji Thomas EGFR-AF BELGIAN 24 mL/min/1.73m2 Critically low >=60 [facility] Comment on above: Performed By: #### M G, TSH, LIPID, T7, CMP, BNP #### [facility] [address] [place] [address] Dr. Reji Thomas EGFR-NON AF BELGIAN 20 mL/min/1.73m2 Critically low >=60 [facility] Comment on above: Performed By: #### M G, TSH, LIPID, T7, CMP, BNP #### [facility] [address] [place] [address] Dr. Reji Thomas Globulin (S) [Mass/Vol] 4.3 g/dL Normal [facility] Comment on above: Performed By: #### M G, TSH, LIPID, T7, CMP, BNP #### [facility] [address] [place] [address] Dr. Reji Thomas Glucose [Mass/Vol] 88 mg/dL Normal 74-106 [facility] Comment on above: Performed By: #### M G, TSH, LIPID, T7, CMP, BNP #### [facility] [address] [place] [address] Dr. Reji Thomas Potassium [Moles/Vol] 4.7 mmol/L Normal 3.5-5.1 [facility] Comment on above: Performed By: #### M G, TSH, LIPID, T7, CMP, BNP #### [facility] [address] [place] [address] Dr. Reji Thomas Protein [Mass/Vol] 7.7 g/dL Normal 6.4-8.2 [facility] Comment on above: Performed By: #### M G, TSH, LIPID, T7, CMP, BNP #### [facility] [address] [place] [address] Dr. Reji Thomas Sodium [Moles/Vol] 142 mmol/L Normal 136-145 [facility] Comment on above: Performed By: #### M G, TSH, LIPID, T7, CMP, BNP #### [facility] [address] [address] [address] Reji Thomas Urea nitrogen [Mass/Vol] 38.0 mg/dL Critically high 7.0-18.0 [facility] Comment on above: Performed By: #### M G, TSH, LIPID, T7, CMP, BNP #### [facility] [address] [address] [address] Reji Thomas Urea nitrogen/Creatinine [Mass ratio] 16.4 mg/mg Normal [facility] Comment on above: Performed By: #### M G, TSH, LIPID, T7, CMP, BNP #### [facility] [address] [place] [address] Dr. Reji Thomas PROTIMEon 03-22-2023 INR Coag (PPP) [Relative time] 1.98 {INR} Normal [facility] Comment on above: Performed By: #### P T #### [facility] [address] [place] [address] Dr. Reji Thomas INR GUIDELINES SEE BELOW Normal [facility] Comment on above: Result Comment: SHY RED INR: 2.0 - 3.0 CONDITIONS NOT LISTED BELOW 2.5 - 3.5 FOR PROSTHETIC HEART VALVE REPLACEMENT 2.5 - 3.5 RECURRENT THROMBOSIS Performed By: #### P T #### [facility] [address] [place] [address] Dr. Reji Thomas PT Coag (PPP) [Time] 20.2 s Critically high 9.0-11.6 [facility] Comment on above: Performed By: #### P T #### [facility] [address] [place] [address] Dr. Reji Thomas TSHon 03-22-2023 TSH 2.265 uIU/mL Normal 0.358-3.740 [facility] Comment on above: Performed By: #### B SALES DEPARTMENT SUPERVISOR, CMP, TSH, LIPID #### [facility] [address] [place] [address] Dr. Reji Thomas VITAMIN D 25 OHon 03-22-2023 VIT D 25-OH 53.1 ng/mL Normal [facility] Comment on above: Performed By: #### B MP #### [facility] [address] [place] [address] Dr. Reji Thomas VIT D RANGES SEE BELOW Normal [facility] Comment on above: Result Comment: <20 ng/mL Vit D deficient 20 - <30 ng/mL Vit D insufficient 30 - 100 ng/mL Vit D sufficient >100 ng/mL Potential Toxicity Performed By: #### B MP #### [facility] [address] [place] [address] Dr. Reji Thomas PROTIMEon 02-22-2023 INR Coag (PPP) [Relative time] 2.22 {INR} Normal [facility] Comment on above: Performed By: #### B SALES DEPARTMENT SUPERVISOR, CMP, TSH, LIPID #### [facility] [address] [place] [address] Dr. Reji Thomas INR GUIDELINES SEE BELOW Normal [facility] Comment on above: Result Comment: SHY RED INR: 2.0 - 3.0 CONDITIONS NOT LISTED BELOW 2.5 - 3.5 FOR PROSTHETIC HEART VALVE REPLACEMENT 2.5 - 3.5 RECURRENT THROMBOSIS Performed By: #### B SALES DEPARTMENT SUPERVISOR, CMP, TSH, LIPID #### [facility] [address] [place] [address] Dr. Reji Thomas PT Coag (PPP) [Time] 22.5 s Critically high 9.0-11.6 [facility] Comment on above: Performed By: #### B SALES DEPARTMENT SUPERVISOR, CMP, TSH, LIPID #### [facility] [address] [place] [address] Dr. Reji Thomas PROTIMEon 01-03-2023 INR Coag (PPP) [Relative time] 2.53 {INR} Normal [facility] Comment on above: Performed By: #### B MP #### [facility] [address] [place] [address] Dr. Reji Thomas INR GUIDELINES SEE BELOW Normal [facility] Comment on above: Result Comment: SHY RED INR: 2.0 - 3.0 CONDITIONS NOT LISTED BELOW 2.5 - 3.5 FOR PROSTHETIC HEART VALVE REPLACEMENT 2.5 - 3.5 RECURRENT THROMBOSIS Performed By: #### B MP #### [facility] [address] [place] [address] Dr. Reji Thomas PT Coag (PPP) [Time] 25.4 s Critically high 9.0-11.6 [facility] Comment on above: Performed By: #### B MP #### [facility] [address] [place] [address] Dr. Reji Thomas PROTIMEon 11-23-2022 INR Coag (PPP) [Relative time] 1.71 {INR} Normal [facility] Comment on above: Performed By: #### B SALES DEPARTMENT SUPERVISOR, CMP, TSH, LIPID #### [facility] [address] [place] [address] Dr. Reji Thomas INR GUIDELINES SEE BELOW Normal [facility] Comment on above: Result Comment: SHY RED INR: 2.0 - 3.0 CONDITIONS NOT LISTED BELOW 2.5 - 3.5 FOR PROSTHETIC HEART VALVE REPLACEMENT 2.5 - 3.5 RECURRENT THROMBOSIS Performed By: #### B SALES DEPARTMENT SUPERVISOR, CMP, TSH, LIPID #### [facility] [address] [place] [address] Dr. Reji Thomas PT Coag (PPP) [Time] 17.6 s Critically high 9.0-11.6 [facility] Comment on above: Performed By: #### B SALES DEPARTMENT SUPERVISOR, CMP, TSH, LIPID #### [facility] [address] [place] [address] Dr. Reji Thomas PROTIMEon 10-10-2022 INR Coag (PPP) [Relative time] 2.52 {INR} Normal [facility] Comment on above: Performed By: #### B SALES DEPARTMENT SUPERVISOR, CMP, TSH, LIPID #### [facility] [address] [place] [address] Dr. Reji Thomas INR GUIDELINES SEE BELOW Normal [facility] Comment on above: Result Comment: SHY RED INR: 2.0 - 3.0 CONDITIONS NOT LISTED BELOW 2.5 - 3.5 FOR PROSTHETIC HEART VALVE REPLACEMENT 2.5 - 3.5 RECURRENT THROMBOSIS Performed By: #### B SALES DEPARTMENT SUPERVISOR, CMP, TSH, LIPID #### [facility] [address] [place] [address] Dr. Reji Thomas PT Coag (PPP) [Time] 25.6 s Critically high 9.0-11.6 [facility] Comment on above: Performed By: #### B SALES DEPARTMENT SUPERVISOR, CMP, TSH, LIPID #### [facility] [address] [place] [address] Dr. Reji Thomas PROTIMEon 09-05-2022 INR Coag (PPP) [Relative time] 2.03 {INR} Normal [facility] Comment on above: Performed By: #### B SALES DEPARTMENT SUPERVISOR, CMP, TSH, LIPID #### [facility] [address] [place] [address] Dr. Reji Thomas INR GUIDELINES SEE BELOW Normal [facility] Comment on above: Result Comment: SHY RED INR: 2.0 - 3.0 CONDITIONS NOT LISTED BELOW 2.5 - 3.5 FOR PROSTHETIC HEART VALVE REPLACEMENT 2.5 - 3.5 RECURRENT THROMBOSIS Performed By: #### B SALES DEPARTMENT SUPERVISOR, CMP, TSH, LIPID #### [facility] [address] [place] [address] Dr. Reji Thomas PT Coag (PPP) [Time] 20.9 s Critically high 9.0-11.6 [facility] Comment on above: Performed By: #### B SALES DEPARTMENT SUPERVISOR, CMP, TSH, LIPID #### [facility] [address] [place] [address] Dr. Reji Thomas BNPon 08-10-2022 Natriuretic peptide B (Bld) [Mass/Vol] 1162.0 pg/mL Normal <=1,800.0 [facility] Comment on above: Performed By: #### B MP, BNP #### [facility] [address] [place] [address] Dr. Reji Thomas PROF CHEM 8 (BAS METB)on Anion gap [Moles/Vol] 11.3 mmol/L Normal [facility] Comment on above: Performed By: #### B MP, BNP #### [facility] [address] [place] [address] Dr. Reji Thomas Calcium [Mass/Vol] 8.9 mg/dL Normal 8.5-10.1 [facility] Comment on above: Performed By: #### B MP, BNP #### [facility] [address] [address] [address] Reji Thomas Chloride [Moles/Vol] 103 mmol/L Normal 98-107 [facility] Comment on above: Performed By: #### B MP, BNP #### [facility] [address] [address] [address] Reji Thomas CO2 [Moles/Vol] 28.2 mmol/L Normal 21.0-32.0 [facility] Comment on above: Performed By: #### B MP, BNP #### [facility] [address] [place] [address] Dr. Reji Thomas Creatinine [Mass/Vol] 2.07 mg/dL Critically high 0.55-1.02 [facility] [facility] Comment on above: Performed By: #### B MP, BNP #### [facility] [address] [place] [address] Dr. Reji Thomas EGFR-AF BELGIAN 28 mL/min/1.73m2 Critically low >=60 [facility] Comment on above: Performed By: #### B MP, BNP #### [facility] [address] [place] [address] Dr. Reji Thomas EGFR-NON AF BELGIAN 23 mL/min/1.73m2 Critically low >=60 [facility] Comment on above: Performed By: #### B MP, BNP #### [facility] [address] [place] [address] Dr. Reji Thomas Glucose [Mass/Vol] 88 mg/dL Normal 74-106 [facility] Comment on above: Performed By: #### B MP, BNP #### [facility] [address] [place] [address] Dr. Reji Thomas Potassium [Moles/Vol] 4.5 mmol/L Normal 3.5-5.1 [facility] Comment on above: Performed By: #### B MP, BNP #### [facility] [address] [place] [address] Dr. Reji Thomas Sodium [Moles/Vol] 138 mmol/L Normal 136-145 [facility] Comment on above: Performed By: #### B MP, BNP #### [facility] [address] [place] [address] Dr. Reji Thomas Urea nitrogen [Mass/Vol] 35.0 mg/dL Critically high 7.0-18.0 [facility] Comment on above: Performed By: #### B MP, BNP #### [facility] [address] [place] [address] Dr. Reji Thomas Urea nitrogen/Creatinine [Mass ratio] 16.9 mg/mg Normal [facility] Comment on above: Performed By: #### B MP, BNP #### [facility] [address] [place] [address] Dr. Reji Thomas PROTIMEon 08-09-2022 INR Coag (PPP) [Relative time] 2.04 {INR} Normal [facility] Comment on above: Performed By: #### B SALES DEPARTMENT SUPERVISOR, CMP, TSH, LIPID #### [facility] [address] [place] [address] Dr. Reji Thomas INR GUIDELINES SEE BELOW Normal [facility] Comment on above: Result Comment: SHY RED INR: 2.0 - 3.0 CONDITIONS NOT LISTED BELOW 2.5 - 3.5 FOR PROSTHETIC HEART VALVE REPLACEMENT 2.5 - 3.5 RECURRENT THROMBOSIS Performed By: #### B SALES DEPARTMENT SUPERVISOR, CMP, TSH, LIPID #### [facility] [address] [place] [address] Dr. Reji Thomas PT Coag (PPP) [Time] 21.0 s Critically high 9.0-11.6 [facility] Comment on above: Performed By: #### B SALES DEPARTMENT SUPERVISOR, CMP, TSH, LIPID #### [facility] [address] [place] [address] Dr. Reji Thomas BNPon 07-09-2022 Natriuretic peptide B (Bld) [Mass/Vol] 2085.0 pg/mL Critically high <=1,800.0 [facility] Comment on above: Result Comment: LEX ACOSTA CALLED TO OFFICE ON 07-10-22 AT 0850 BY AR Performed By: #### B SALES DEPARTMENT SUPERVISOR, CMP, TSH, LIPID #### [facility] [address] [place] [address] Dr. Reji Thomas PROF CHEM 8 (BAS METB)on Anion gap [Moles/Vol] 13.7 mmol/L Normal [facility] Comment on above: Performed By: #### B SALES DEPARTMENT SUPERVISOR, CMP, TSH, LIPID #### [facility] [address] [place] [address] Dr. Reji Thomas Calcium [Mass/Vol] 8.3 mg/dL Critically low 8.5-10.1 [facility] Comment on above: Performed By: #### B SALES DEPARTMENT SUPERVISOR, CMP, TSH, LIPID #### [facility] [address] [place] [address] Dr. Reji Thomas Chloride [Moles/Vol] 104 mmol/L Normal 98-107 [facility] Comment on above: Performed By: #### B SALES DEPARTMENT SUPERVISOR, CMP, TSH, LIPID #### [facility] [address] [place] [address] Dr. Reji Thomas CO2 [Moles/Vol] 26.6 mmol/L Normal 21.0-32.0 [facility] Comment on above: Performed By: #### B SALES DEPARTMENT SUPERVISOR, CMP, TSH, LIPID #### [facility] [address] [place] [address] Dr. Reji Thomas Creatinine [Mass/Vol] 1.98 mg/dL Critically high 0.55-1.02 [facility] Comment on above: Performed By: #### B SALES DEPARTMENT SUPERVISOR, CMP, TSH, LIPID #### [facility] [address] [place] [address] Dr. Reji Thomas EGFR-AF BELGIAN 29 mL/min/1.73m2 Critically low >=60 [facility] Comment on above: Performed By: #### B SALES DEPARTMENT SUPERVISOR, CMP, TSH, LIPID #### [facility] [address] [place] [address] Dr. Reji Thomas EGFR-NON AF BELGIAN 24 mL/min/1.73m2 Critically low >=60 [facility] Comment on above: Performed By: #### B SALES DEPARTMENT SUPERVISOR, CMP, TSH, LIPID #### [facility] [address] [address] [address] Reji Thomas Glucose [Mass/Vol] 116 mg/dL Critically high 74-106 [facility] Comment on above: Performed By: #### B SALES DEPARTMENT SUPERVISOR, CMP, TSH, LIPID #### [facility] [address] [address] [address] Reji Thomas Potassium [Moles/Vol] 4.3 mmol/L Normal 3.5-5.1 [facility] Comment on above: Performed By: #### B SALES DEPARTMENT SUPERVISOR, CMP, TSH, LIPID #### [facility] [address] [address] [address] Reji Thomas Sodium [Moles/Vol] 140 mmol/L Normal 136-145 [facility] Comment on above: Performed By: #### B SALES DEPARTMENT SUPERVISOR, CMP, TSH, LIPID #### [facility] [address] [place] [address] Dr. Reji Thomas Urea nitrogen [Mass/Vol] 35.0 mg/dL Critically high 7.0-18.0 [facility] Comment on above: Performed By: #### B SALES DEPARTMENT SUPERVISOR, CMP, TSH, LIPID #### [facility] [address] [address] [address] Reji Thomas Urea nitrogen/Creatinine [Mass ratio] 17.7 mg/mg Normal [facility] Comment on above: Performed By: #### B SALES DEPARTMENT SUPERVISOR, CMP, TSH, LIPID #### [facility] [address] [place] [address] Dr. Reji Thomas PROTIMEon 07-09-2022 INR Coag (PPP) [Relative time] 2.99 {INR} Normal [facility] Comment on above: Performed By: #### B SALES DEPARTMENT SUPERVISOR, CMP, TSH, LIPID #### [facility] [address] [place] [address] Dr. Reji Thomas INR GUIDELINES SEE BELOW Normal [facility] Comment on above: Result Comment: SHY RED INR: 2.0 - 3.0 CONDITIONS NOT LISTED BELOW 2.5 - 3.5 FOR PROSTHETIC HEART VALVE REPLACEMENT 2.5 - 3.5 RECURRENT THROMBOSIS Performed By: #### B SALES DEPARTMENT SUPERVISOR, CMP, TSH, LIPID #### [facility] [address] [place], [place] [address] Dr. Reji Thomas PT Coag (PPP) [Time] 30.1 s Critically high 9.0-11.6 [facility] Comment on above: Performed By: #### B SALES DEPARTMENT SUPERVISOR, CMP, TSH, LIPID #### [facility] [address] [address] [address] Reji Thomas US KIDNEYSon 07-06-2022 US [...] SIGRID RICHMOND Date: 2022-07-06 13:31 Normal [facility] EVAN Antinuclear Antibodieson 06-19-2022 Antinuclear Abs, IFA Positive Critically abnormal . [facility] Comment on above: Result Comment: Nega tive <1:80 Borderline 1:80 Positive >1:80 Performed By: #### C UU, ADDONUAPLUS #### [facility] [address] [place] [address] #### C3, C4, CH50 #### [facility] , Homogeneous Pattern 1:320 High . [facility] Comment on above: Result Comment: ICAP nomenclature: [id number] Performed By: #### C MIKY CHOW #### [facility] [address] #### C3, C4, CH50 #### [facility] , Note 1 Normal . [facility] Comment on above: Result [...] titers Nucleosomes, Histones Drug-induced SLE Speckled Sm, SERVICE OBSERVER, SCL-70, SLE,MCTD,PSS (diffuse form), SS-A/SS-B Sjogrens Nucleolar SCL-70, PM-1/SCL High titers Scleroderma, PM/DM Centromere Centromere PSS (limited form) w/Crest syndrome variable Nuclear Dot [id number] Primary Biliary Cirrhosis Nuclear GP210, Primary Biliary Cirrhosis Membrane eleonora A,B,C Performed at: [place] [place] [address] Historic Site Administrator: Demarcus Lawton PhD, Phone: [phone] Performed By: #### COURTNEY GOMEZONHEAVENPLUS #### [facility] [address] [place] [address] #### C3, C4, CH50 #### [facility] , Anti-RNPon 06-19-2022 Anti-SERVICE OBSERVER 0.4 Normal 0.0-0.9 [facility] Comment on above: Result Comment: Perf ormed at: [facility] [place] [address] Historic Site Administrator: Demarcus Lawton PhD, Phone: [phone] Performed By: #### COURTNEY GOMEZONUAPLUS #### [facility] [address] [place] [address] #### C3, C4, CH50 #### [facility] , C-Reactive Proteinon 022 C-Reactive Protein 2.0 mg/dL High 0.0-1.0 [facility] Comment on above: Result Comment: PERF ORMED BY: [place] [address] PATHOLOGIST PROPULSION ENGINEER RADHA BULLARD M.D. Performed By: #### C UU, ADDONUAPLUS #### [address] #### C3, C4, CH50 #### [facility] , Complement C3on 06-19-2022 Complement C3 167 mg/dL Normal 82-167 [facility] Comment on above: Result Comment: Perf ormed at: [address] [id number] Historic Site Administrator: Demarcus Lawton PhD, Phone: [phone] Performed By: #### C UU, ADDONUAPLUS #### [address] #### C3, C4, CH50 #### [facility] , Complement C4on 06-19-2022 Complement C4 37 mg/dL Normal 12-38 [facility] Comment on above: Performed By: #### C UU, ADDONUAPLUS #### [address] #### C3, C4, CH50 #### [facility] , Complement Total (CH50)on Complement Total (CH50) >60 Normal >41 [facility] Comment on above: Result [...] out of range values. Performed at: - [facility] [id number] Historic Site Administrator: Demarcus Lawton PhD, Phone: [phone] PERFORMED BY: [place] [address] PATHOLOGIST PROPULSION ENGINEER RADHA BULLARD M.D. Performed By: #### C UU, ADDONUAPLUS #### [address] #### C3, C4, CH50 #### [facility] , Complete Blood Count Auto Di ffon 06-19-2022 Basophils (Bld) [#/Vol] 0.1 10*3/uL Normal 0.0-0.2 [facility] Comment on above: Performed By: #### H EPATIC, CBC, ESR, CRP, CREAT, CK #### [place] [address] [place] #### RNA POLYMR, ANTI TH TO, EVAN, U3 SERVICE OBSERVER, ANTIR, PM-SCL ABS #### [facility] , Basophils/100 WBC (Bld) 0.9 % Normal . [facility] Comment on above: Performed By: #### H EPATIC, CBC, ESR, CRP, CREAT, CK #### [place] [address] [place] #### RNA POLYMR, ANTI TH TO, EVAN, U3 SERVICE OBSERVER, ANTIR, PM-SCL ABS #### [facility] , Eosinophils (Bld) [#/Vol] 0.5 10*3/uL High 0.0-0.45 [facility] Comment on above: Performed By: #### H EPATIC, CBC, ESR, CRP, CREAT, CK #### [place] [address] [place] #### RNA POLYMR, ANTI TH TO, EVAN, U3 SERVICE OBSERVER, ANTIR, PM-SCL ABS #### [facility] , Eosinophils/100 WBC (Bld) 8.6 % Normal . [facility] Comment on above: Performed By: #### H EPATIC, CBC, ESR, CRP, CREAT, CK #### [address] [address] [place] #### RNA POLYMR, ANTI TH TO, EVAN, U3 SERVICE OBSERVER, ANTIR, PM-SCL ABS #### [facility] , Erythrocyte distribution width (RBC) [Ratio] 19.6 % High 11.9-15.3 [facility] Comment on above: Performed By: #### H EPATIC, CBC, ESR, CRP, CREAT, CK #### [place] [address] [place] #### RNA POLYMR, ANTI TH TO, EVAN, U3 SERVICE OBSERVER, ANTIR, PM-SCL ABS #### [facility] , Hematocrit (Bld) [Volume fraction] 33.8 % Low 34.0-46.4 [facility] Comment on above: Performed By: #### H EPATIC, CBC, ESR, CRP, CREAT, CK #### [address] #### RNA POLYMR, ANTI TH TO, EVAN, U3 SERVICE OBSERVER, ANTIR, PM-SCL ABS #### [facility] , Hemoglobin (Bld) [Mass/Vol] 10.9 g/dL Low 11.8-15.4 [facility] Comment on above: Performed By: #### H EPATIC, CBC, ESR, CRP, CREAT, CK #### [place] [address] [place] #### RNA POLYMR, ANTI TH TO, EVAN, U3 SERVICE OBSERVER, ANTIR, PM-SCL ABS #### [facility] , Lymphocytes (Bld) [#/Vol] 1.1 10*3/uL Normal 1.00-4.8 [facility] Comment on above: Performed By: #### H EPATIC, CBC, ESR, CRP, CREAT, CK #### [place] [address] [place] #### RNA POLYMR, ANTI TH TO, EVAN, U3 SERVICE OBSERVER, ANTIR, PM-SCL ABS #### [facility] , Lymphocytes/100 WBC (Bld) 17.8 % Normal . [facility] Comment on above: Performed By: #### H EPATIC, CBC, ESR, CRP, CREAT, CK #### [facility] [address] [place] [address] #### RNA POLYMR, ANTI TH TO, EVAN, U3 SERVICE OBSERVER, ANTIR, PM-SCL ABS #### [facility] , MCH (RBC) [Entitic mass] 26.4 pg Normal 24.7-34.3 [facility] Comment on above: Performed By: #### H EPATIC, CBC, ESR, CRP, CREAT, CK #### [facility] [address] [place] [address] #### RNA POLYMR, ANTI TH TO, EVAN, U3 SERVICE OBSERVER, ANTIR, PM-SCL ABS #### [facility] , MCV (RBC) [Entitic vol] 81.8 fL Normal 80-100 [facility] Comment on above: Performed By: #### H EPATIC, CBC, ESR, CRP, CREAT, CK #### [address] #### RNA POLYMR, ANTI TH TO, EVAN, U3 SERVICE OBSERVER, ANTIR, PM-SCL ABS #### [facility] , Mean Corpuscular HGB Conc 32.3 g/dL Normal 32.0-35.0 [facility] Comment on above: Performed By: #### H EPATIC, CBC, ESR, CRP, CREAT, CK #### [address] #### RNA POLYMR, ANTI TH TO, EVAN, U3 SERVICE OBSERVER, ANTIR, PM-SCL ABS #### [facility] , Monocytes (Bld) [#/Vol] 0.4 10*3/uL Normal 0.0-0.8 [facility] Comment on above: Performed By: #### H EPATIC, CBC, ESR, CRP, CREAT, CK #### [place] [address] [place] #### RNA POLYMR, ANTI TH TO, EVAN, U3 SERVICE OBSERVER, ANTIR, PM-SCL ABS #### [facility] , Monocytes/100 WBC (Bld) 7.4 % Normal . [facility] Comment on above: Performed By: #### H EPATIC, CBC, ESR, CRP, CREAT, CK #### [address] #### RNA POLYMR, ANTI TH TO, EVAN, U3 SERVICE OBSERVER, ANTIR, PM-SCL ABS #### [facility] , Neutrophils (Bld) [#/Vol] 3.9 10*3/uL Normal 1.8-7.7 [facility] Comment on above: Performed By: #### H EPATIC, CBC, ESR, CRP, CREAT, CK #### [address] #### RNA POLYMR, ANTI TH TO, EVAN, U3 SERVICE OBSERVER, ANTIR, PM-SCL ABS #### [facility] , Neutrophils/100 WBC (Bld) 65.3 % Normal . [facility] Comment on above: Performed By: #### H EPATIC, CBC, ESR, CRP, CREAT, CK #### [address] #### RNA POLYMR, ANTI TH TO, EVAN, U3 SERVICE OBSERVER, ANTIR, PM-SCL ABS #### [facility] , Nucleated RBC/100 WBC (Bld) [Ratio] 0.0 % Normal 0-0.5 [facility] Comment on above: Performed By: #### H EPATIC, CBC, ESR, CRP, CREAT, CK #### [place] [address] [place] #### RNA POLYMR, ANTI TH TO, EVAN, U3 SERVICE OBSERVER, ANTIR, PM-SCL ABS #### [facility] , Platelet mean volume (Bld) [Entitic vol] 7.2 fL Normal 6.3-10.7 [facility] Comment on above: Performed By: #### H EPATIC, CBC, ESR, CRP, CREAT, CK #### [facility] [address] [place] [address] [place] #### RNA POLYMR, ANTI TH TO, EVAN, U3 SERVICE OBSERVER, ANTIR, PM-SCL ABS #### [facility] , Platelets (Bld) [#/Vol] 237 10*3/uL Normal 150-450 [facility] Comment on above: Performed By: #### H EPATIC, CBC, ESR, CRP, CREAT, CK #### [facility] [address] [place] [address] #### RNA POLYMR, ANTI TH TO, EVAN, U3 SERVICE OBSERVER, ANTIR, PM-SCL ABS #### [facility] , RBC (Bld) [#/Vol] 4.14 10*6/uL Normal 3.60-5.00 [facility] Comment on above: Performed By: #### H EPATIC, CBC, ESR, CRP, CREAT, CK #### [facility] [address] [place] [address] [place] #### RNA POLYMR, ANTI TH TO, EVAN, U3 SERVICE OBSERVER, ANTIR, PM-SCL ABS #### [facility] , WBC (Bld) [#/Vol] 6.0 10*3/uL Normal 4.5-11.0 [facility] Comment on above: Performed By: #### H EPATIC, CBC, ESR, CRP, CREAT, CK #### [facility] [address] [place] [address] [place] #### RNA POLYMR, ANTI TH TO, EVAN, U3 SERVICE OBSERVER, ANTIR, PM-SCL ABS #### [facility] , Creatine Kinaseon 06-19-2022 CK [Catalytic activity/Vol] 38 U/L Normal 22-269 [facility] Comment on above: Result Comment: PERF ORMED BY: [place] [phone] PATHOLOGIST PROPULSION ENGINEER RADHA BULLARD M.D. Performed By: #### H EPATIC, CBC, ESR, CRP, CREAT, CK #### [address] #### RNA POLYMR, ANTI TH TO, EVAN, U3 SERVICE OBSERVER, ANTIR, PM-SCL ABS #### [facility] , Creatinineon 06-19-2022 Creatinine [Mass/Vol] 2.82 mg/dL High 0.44-1.03 [facility] Comment on above: Performed By: #### H EPATIC, CBC, ESR, CRP, CREAT, CK #### [address] #### RNA POLYMR, ANTI TH TO, EVAN, U3 SERVICE OBSERVER, ANTIR, PM-SCL ABS #### [facility] , Estimated GFR ( [place] 19 [facility] Comment on above: Result Comment: GFR estimated reference range: According to KDOQI guidelines, <60 ml/min/1.73m2 is sufficient to diagnose a patient with chronic kidney disease. Performed By: #### H EPATIC, CBC, ESR, CRP, CREAT, CK #### [address] #### RNA POLYMR, ANTI TH TO, EVAN, U3 SERVICE OBSERVER, ANTIR, PM-SCL ABS #### [facility] , Estimated GFR (Non- Am 16 [facility] Comment on above: Performed By: #### H EPATIC, CBC, ESR, CRP, CREAT, CK #### [place] [address] [place] #### RNA POLYMR, ANTI TH TO, EVAN, U3 SERVICE OBSERVER, ANTIR, PM-SCL ABS #### [facility] , Dipstick and Microscopicon 0 06-19-2022 Appearance (U) Cloudy Critically abnormal Clear [facility] Comment on above: Order Comment: Name Collection Type:: Clean-Voided Midstream Performed By: #### C UU, ADDONUAPLUS #### [facility] [address] [place] [address] #### C3, C4, CH50 #### [facility] , Bacteria,Urine 1+ High None Seen [facility] Comment on above: Order Comment: Name Collection Type:: Clean-Voided Midstream Performed By: #### C UU, ADDONUAPLUS #### [facility] [address] [place] [address] #### C3, C4, CH50 #### [facility] , Bilirubin,Urine Negative Normal Negative [facility] Comment on above: Order Comment: Name Collection Type:: Clean-Voided Midstream Performed By: #### C UU, ADDONUAPLUS #### [facility] [address] [place] [address] #### C3, C4, CH50 #### [facility] , Color (U) Yellow Normal Yellow [facility] Comment on above: Order Comment: Name Collection Type:: Clean-Voided Midstream Performed By: #### C UU, ADDONUAPLUS #### [facility] [address] [place] [address] #### C3, C4, CH50 #### [facility] , Glucose Ql (U) Normal Normal Normal [facility] Comment on above: Order Comment: Name Collection Type:: Clean-Voided Midstream Performed By: #### C UU, ADDONUAPLUS #### [facility] [address] [place] [address] #### C3, C4, CH50 #### [facility] , Hyaline Casts,Urine 1-2 Normal 0-8 [facility] Comment on above: Order Comment: Name Collection Type:: Clean-Voided Midstream Result Comment: PERF ORMED BY: [place] [address] PATHOLOGIST PROPULSION ENGINEER RADHA BULLARD M.D. Performed By: #### C UU, ADDONUAPLUS #### [facility] [address] [place] [address] #### C3, C4, CH50 #### [facility] , Ketones Ql (U) Negative Normal Negative [facility] Comment on above: Order Comment: Name Collection Type:: Clean-Voided Midstream Performed By: #### C UU, ADDONUAPLUS #### [facility] [address] [place] [address] #### C3, C4, CH50 #### [facility] , Leukocyte esterase Test strip Ql (U) 4+ High Negative [facility] Comment on above: Order Comment: Name Collection Type:: Clean-Voided Midstream Performed By: #### C UU, ADDONUAPLUS #### [address] #### C3, C4, CH50 #### [facility] , Nitrite,Urine Negative Normal Negative [facility] Comment on above: Order Comment: Name Collection Type:: Clean-Voided Midstream Performed By: #### C UU, ADDONUAPLUS #### [address] #### C3, C4, CH50 #### [facility] , Occult Blood,Urine 1+ High Negative [facility] Comment on above: Order Comment: Name Collection Type:: Clean-Voided Midstream Performed By: #### C UU, ADDONUAPLUS #### [address] #### C3, C4, CH50 #### [facility] , pH (U) 6.5 [pH] Normal 5.0-9.0 [facility] Comment on above: Order Comment: Name Collection Type:: Clean-Voided Midstream Performed By: #### C UU, ADDONUAPLUS #### [place] [address] [place] #### C3, C4, CH50 #### [facility] , Protein,Urine Trace High Negative [facility] Comment on above: Order Comment: Name Collection Type:: Clean-Voided Midstream Performed By: #### C UU, ADDONUAPLUS #### [address] #### C3, C4, CH50 #### [facility] , RBC,Urine 1-2 Normal 0-4 [facility] Comment on above: Order Comment: Name Collection Type:: Clean-Voided Midstream Performed By: #### C UU, ADDONUAPLUS #### [address] #### C3, C4, CH50 #### [facility] , Specificy [place],Urine 1.010 Normal 1.001-1.030 [facility] Comment on above: Order Comment: Name Collection Type:: Clean-Voided Midstream Performed By: #### C UU, ADDONUAPLUS #### [address] #### C3, C4, CH50 #### [facility] , Squamous Epithelial Cell,Urine 5-9 High 0-2 [facility] Comment on above: Order Comment: Name Collection Type:: Clean-Voided Midstream Performed By: #### C UU, ADDONUAPLUS #### [address] #### C3, C4, CH50 #### [facility] , Urobilinogen,Urine Normal Normal Normal [facility] Comment on above: Order Comment: Name Collection Type:: Clean-Voided Midstream Performed By: #### C UU, ADDONUAPLUS #### [address] #### C3, C4, CH50 #### [facility] , WBC,Urine Innumerable High 0-4 [facility] Comment on above: Order Comment: Name Collection Type:: Clean-Voided Midstream Performed By: #### C UU, ADDONUAPLUS #### [address] #### C3, C4, CH50 #### [facility] , Erythrocyte Sedimentation Ra pratik 06-19-2022 ESR (Bld) [Velocity] 57 mm/h High 0-29 [facility] Comment on above: Result Comment: PERF ORMED BY: [place] [address] PATHOLOGIST PROPULSION ENGINEER RADHA BULLARD M.D. Performed By: #### H EPATIC, CBC, ESR, CRP, CREAT, CK #### [address] #### RNA POLYMR, ANTI TH TO, EVAN, U3 SERVICE OBSERVER, ANTIR, PM-SCL ABS #### [facility] , Hepatic Panelon 06-19-2022 Albumin [Mass/Vol] 3.6 g/dL Normal 3.2-5.5 [facility] Comment on above: Performed By: #### H EPATIC, CBC, ESR, CRP, CREAT, CK #### [facility] [address] [place] [address] #### RNA POLYMR, ANTI TH TO, EVAN, U3 SERVICE OBSERVER, ANTIR, PM-SCL ABS #### [facility] , Albumin/Globulin [Mass ratio] 1.0 {ratio} Normal [facility] Comment on above: Performed By: #### H EPATIC, CBC, ESR, CRP, CREAT, CK #### [facility] [address] [place] [address] [place] #### RNA POLYMR, ANTI TH TO, EVAN, U3 SERVICE OBSERVER, ANTIR, PM-SCL ABS #### [facility] , ALP [Catalytic activity/Vol] 68 U/L Normal 32-92 [facility] Comment on above: Performed By: #### H EPATIC, CBC, ESR, CRP, CREAT, CK #### [facility] [address] [place] [address] [place] #### RNA POLYMR, ANTI TH TO, EVAN, U3 SERVICE OBSERVER, ANTIR, PM-SCL ABS #### [facility] , ALT [Catalytic activity/Vol] 9 U/L Low 10-60 [facility] Comment on above: Performed By: #### H EPATIC, CBC, ESR, CRP, CREAT, CK #### [address] #### RNA POLYMR, ANTI TH TO, EVAN, U3 SERVICE OBSERVER, ANTIR, PM-SCL ABS #### [facility] , AST [Catalytic activity/Vol] 15 U/L Normal 10- [facility] Comment on above: Performed By: #### H EPATIC, CBC, ESR, CRP, CREAT, CK #### [facility] [address] [place] [address] [place] #### RNA POLYMR, ANTI TH TO, EVAN, U3 SERVICE OBSERVER, ANTIR, PM-SCL ABS #### [facility] , Bilirubin [Mass/Vol] 0.6 mg/dL Normal 0.3-1.2 [facility] Comment on above: Performed By: #### H EPATIC, CBC, ESR, CRP, CREAT, CK #### [facility] [address] [place] [address] [place] #### RNA POLYMR, ANTI TH TO, EVAN, U3 SERVICE OBSERVER, ANTIR, PM-SCL ABS #### [facility] , Bilirubin,Indirect 0.4 mg/dL Normal [facility] Comment on above: Performed By: #### H EPATIC, CBC, ESR, CRP, CREAT, CK #### [facility] [address] [place] [address] [place] #### RNA POLYMR, ANTI TH TO, EVAN, U3 SERVICE OBSERVER, ANTIR, PM-SCL ABS #### [facility] , Bilirubin.indirect [Mass/Vol] 0.2 mg/dL Normal 0.0-0.4 [facility] Comment on above: Performed By: #### H EPATIC, CBC, ESR, CRP, CREAT, CK #### [place] [address] [place] #### RNA POLYMR, ANTI TH TO, EVAN, U3 SERVICE OBSERVER, ANTIR, PM-SCL ABS #### [facility] , Globulin (S) [Mass/Vol] 3.5 g/dL Normal [facility] Comment on above: Performed By: #### H EPATIC, CBC, ESR, CRP, CREAT, CK #### [place] [address] [place] #### RNA POLYMR, ANTI TH TO, EVAN, U3 SERVICE OBSERVER, ANTIR, PM-SCL ABS #### [facility] , Protein [Mass/Vol] 7.1 g/dL Normal 6.1-7.9 [facility] Comment on above: Performed By: #### H EPATIC, CBC, ESR, CRP, CREAT, CK #### [place] [address] [place] #### RNA POLYMR, ANTI TH TO, EVAN, U3 SERVICE OBSERVER, ANTIR, PM-SCL ABS #### [facility] , PM-SCL Antibodieson 06-19-20 22 RAIZA PM-Scl Antibody <20 Normal <20 [facility] Comment on above: Result Comment: This test was developed and its performance characteristics determined by [facility]. It has not been cleared or approved by the Food and Drug Administration. Negative: <20 Weak Positive: 20 - 39 Moderate Positive: 40 - 80 Strong Positive: >80 Performed at: [facility] [address] [place] [id number] Historic Site Administrator: Artemio Nair MD, Phone: [phone] Performed By: #### C UU, ADDONUAPLUS #### [place] [address] [place] #### C3, C4, CH50 #### [facility] , RNA Polymerase IIion 022 RNA Polymerase IIi <20 Normal <20 [facility] Comment on above: Result Comment: Nega tive: <20 Weak Positive: 20 - 39 Moderate Positive: 40 - 80 Strong Positive: >80 Performed at: [facility] [address] [place] [id number] Historic Site Administrator: Artemio Nair MD, Phone: [phone] PERFORMED BY: [place] [address] PATHOLOGIST PROPULSION ENGINEER RADHA BULLARD M.D. Performed By: #### C UU, ADDONUAPLUS #### [address] #### C3, C4, CH50 #### [facility] , Th/To Antibodyon 06-19-2022 Th/To Antibody Negative Normal Negative [facility] Comment on above: Result Comment: This test was developed and its performance characteristics determined by [facility]. It has not been cleared or approved by the Food and Drug Administration. Performed at: [facility] [address] [place] [phone] Historic Site Administrator: Artemio Nair MD, Phone: [phone] Performed By: #### C UU, ADDONUAPLUS #### [facility] [address] [place] [address] #### C3, C4, CH50 #### [facility] , U3 Rnpon 06-19-2022 U3 Research Project Coordinator Negative Normal Negative [facility] Comment on above: Result Comment: This test was developed and its performance characteristics determined by [facility]. It has not been cleared or approved by the Food and Drug Administration. Performed at: [facility] [address] [place] [id number] Historic Site Administrator: Artemio Nair MD, Phone: [phone] PERFORMED BY: [place] [address] PATHOLOGIST PROPULSION ENGINEER RADHA BULLARD M.D. Performed By: #### C UU, ADDONUAPLUS #### [address] #### C3, C4, CH50 #### [facility] , Urine Cultureon 06-19-2022 Bacteria identified Cx Nom (U) No Growth 2 Days PERFORMED BY: [place] [address] PATHOLOGIST PROPULSION ENGINEER RADHA BULLARD M.D. [facility] Comment on above: Performed By: #### C UU, ADDONUAPLUS #### [address] #### C3, C4, CH50 #### [facility] , PROF CHEM 8 (BAS METB)on Anion gap [Moles/Vol] 12.5 mmol/L Normal [facility] Comment on above: Performed By: #### B MP #### [facility] [address] [address] [address] Reji Thomas Calcium [Mass/Vol] 8.9 mg/dL Normal 8.5-10.1 [facility] Comment on above: Performed By: #### B MP #### [facility] [address] [address] [address] Reji Thomas Chloride [Moles/Vol] 103 mmol/L Normal 98-107 [facility] Comment on above: Performed By: #### B MP #### [facility] [address] [address] [address] Reji Thomas CO2 [Moles/Vol] 26.1 mmol/L Normal 21.0-32.0 [facility] Comment on above: Performed By: #### B MP #### [facility] [address] [address] [address] Reji Thomas Creatinine [Mass/Vol] 2.09 mg/dL Critically high 0.55-1.02 [facility] Comment on above: Performed By: #### B MP #### [facility] [address] [address] [address] Reji Thomas EGFR-AF BELGIAN 27 mL/min/1.73m2 Critically low >=60 [facility] Comment on above: Performed By: #### B MP #### [facility] [address] [address] [address] Reji Thomas EGFR-NON AF BELGIAN 23 mL/min/1.73m2 Critically low >=60 [facility] Comment on above: Performed By: #### B MP #### [facility] [address] [address] [address] Reji Thomas Glucose [Mass/Vol] 96 mg/dL Normal 74-106 [facility] Comment on above: Performed By: #### B MP #### [facility] [address] [address] [address] Reji Thomas Potassium [Moles/Vol] 4.6 mmol/L Normal 3.5-5.1 [facility] Comment on above: Performed By: #### B MP #### [facility] [address] [address] [address] Reji Thomas Sodium [Moles/Vol] 137 mmol/L Normal 136-145 [facility] Comment on above: Performed By: #### B MP #### [facility] [address] [address] [address] Reji Thomas Urea nitrogen [Mass/Vol] 38.0 mg/dL Critically high 7.0-18.0 [facility] Comment on above: Performed By: #### B MP #### [facility] [address] [address] [address] Reji Thomas Urea nitrogen/Creatinine [Mass ratio] 18.2 mg/mg Normal [facility] Comment on above: Performed By: #### B MP #### [facility] [address] [address] [address] Reji Thomas PROTIMEon 06-04-2022 INR Coag (PPP) [Relative time] 2.51 {INR} Normal [facility] Comment on above: Performed By: #### B SALES DEPARTMENT SUPERVISOR, CMP, TSH, LIPID #### [facility] [address] [place] [address] Dr. Reji Thomas INR GUIDELINES SEE BELOW Normal [facility] Comment on above: Result Comment: SHY RED INR: 2.0 - 3.0 CONDITIONS NOT LISTED BELOW 2.5 - 3.5 FOR PROSTHETIC HEART VALVE REPLACEMENT 2.5 - 3.5 RECURRENT THROMBOSIS Performed By: #### B SALES DEPARTMENT SUPERVISOR, CMP, TSH, LIPID #### [facility] [address] [place] [address] Dr. Reji Thomas PT Coag (PPP) [Time] 25.5 s Critically high 9.0-11.6 [facility] Comment on above: Performed By: #### B SALES DEPARTMENT SUPERVISOR, CMP, TSH, LIPID #### [facility] [address] [place] [address] Dr. Reji Thomas BNPon 05-15-2022 Natriuretic peptide B (Bld) [Mass/Vol] 3661.0 pg/mL Critically high <=1,800.0 [facility] Comment on above: Performed By: #### B SALES DEPARTMENT SUPERVISOR, CMP, TSH, LIPID #### [facility] [address] [place] [address] Dr. Reji Thomas CBC AUTO DIFFon 05-15-2022 BASO # 0.1 103/ul Normal 0.0-0.1 [facility] Comment on above: Performed By: #### B MP #### [facility] [address] [place] [address] Dr. Reji Thomas Basophils/100 WBC (Bld) 1.1 % Normal 0.2-2.0 [facility] Comment on above: Performed By: #### B MP #### [facility] [address] [place] [address] Dr. Reji Thomas EO # 0.5 103/ul Normal 0.0-0.7 [facility] Comment on above: Performed By: #### B MP #### [facility] [address] [place] [address] Dr. Reji Thomas Eosinophils/100 WBC (Bld) 6.5 % Normal 0.9-7.0 [facility] Comment on above: Performed By: #### B MP #### [facility] [address] [place] [address] Dr. Reji Thomas Erythrocyte distribution width (RBC) [Ratio] 16.1 % Critically high 11.0-15.0 [facility] Comment on above: Performed By: #### B MP #### [facility] [address] [place] [address] Dr. Reji Thomas Hematocrit (Bld) [Volume fraction] 35.0 % Critically low 36.0-48.0 [facility] Comment on above: Performed By: #### B MP #### [facility] [address] [place] [address] Dr. Reji Thomas Hemoglobin (Bld) [Mass/Vol] 11.1 g/dL Critically low 12.0-16.0 [facility] Comment on above: Performed By: #### B MP #### [facility] [address] [place] [address] Dr. Reji Thomas IG # 0.02 10e3/ul Normal 0.00-0.03 [facility] Comment on above: Performed By: #### B MP #### [facility] [address] [place] [address] Dr. Reji Thomas IG % 0.3 % Normal 0.0-0.5 [facility] Comment on above: Performed By: #### B MP #### [facility] [address] [place] [address] Dr. Reji Thomas LYMPH # 1.6 103/ul Normal 1.2-3.8 [facility] Comment on above: Performed By: #### B MP #### [facility] [address] [place] [address] Dr. Reji Thomas Lymphocytes/100 WBC (Bld) 22.4 % Normal 20.5-60.0 [facility] Comment on above: Performed By: #### B MP #### [facility] [address] [place] [address] Dr. Reji Thomas MANUAL DIFF REQ NO Normal [facility] Comment on above: Performed By: #### B MP #### [facility] [address] [address] [address] Reji Thomas MCH (RBC) [Entitic mass] 26.4 pg Critically low 26.7-34.0 [facility] Comment on above: Performed By: #### B MP #### [facility] [address] [address] [address] Reji Thomas MCHC (RBC) [Mass/Vol] 31.7 g/dL Normal 29.9-35.2 [facility] Comment on above: Performed By: #### B MP #### [facility] [address] [address] [address] Reji Thomas MCV (RBC) [Entitic vol] 83.1 fL Normal 81.0-99.0 [facility] Comment on above: Performed By: #### B MP #### [facility] [address] [place] [address] Dr. Reji Thomas MONO # 0.9 103/ul Critically high 0.3-0.8 [facility] Comment on above: Performed By: #### B MP #### [facility] [address] [place] [address] Dr. Reji Thomas Monocytes/100 WBC (Bld) 12.1 % Critically high 1.7-12.0 [facility] Comment on above: Performed By: #### B MP #### [facility] [address] [address] [address] Reji Thomas NEUT # 4.1 103/ul Normal 1.4-6.5 [facility] Comment on above: Performed By: #### B MP #### [facility] [address] [address] [address] Reji Thomas Neutrophils/100 WBC (Bld) 57.6 % Normal 43.0-75.0 [facility] Comment on above: Performed By: #### B MP #### [facility] [address] [place] [address] Dr. Reji Thomas Platelet mean volume (Bld) [Entitic vol] 8.8 fL Critically low 9.5-13.5 [facility] Comment on above: Performed By: #### B MP #### [facility] [address] [address] [address] Reji Thomas PLT 253 103/ul Normal 150-450 [facility] Comment on above: Performed By: #### B MP #### [facility] [address] [place] [address] Dr. Reji Thomas RBC 4.21 106/ul Normal 4.20-5.40 [facility] Comment on above: Performed By: #### B MP #### [facility] [address] [place] [address] Dr. Reji Thomas WBC 7.1 103/ul Normal 4.0-11.0 [facility] Comment on above: Performed By: #### B MP #### [facility] [address] [place] [address] Dr. Reji Thomas PROF CHEM 8 (BAS METB)on Anion gap [Moles/Vol] 10.5 mmol/L Normal [facility] Comment on above: Performed By: #### B SALES DEPARTMENT SUPERVISOR, CMP, TSH, LIPID #### [facility] [address] [place] [address] Dr. Reji Thomas Calcium [Mass/Vol] 8.9 mg/dL Normal 8.5-10.1 [facility] Comment on above: Performed By: #### B SALES DEPARTMENT SUPERVISOR, CMP, TSH, LIPID #### [facility] [address] [place] [address] Dr. Reji Thomas Chloride [Moles/Vol] 104 mmol/L Normal 98-107 [facility] Comment on above: Performed By: #### B SALES DEPARTMENT SUPERVISOR, CMP, TSH, LIPID #### [facility] [address] [place] [address] Dr. Reji Thomas CO2 [Moles/Vol] 29.5 mmol/L Normal 21.0-32.0 [facility] Comment on above: Performed By: #### B SALES DEPARTMENT SUPERVISOR, CMP, TSH, LIPID #### [facility] [address] [place] [address] Dr. Reji Thomas Creatinine [Mass/Vol] 1.73 mg/dL Critically high 0.55-1.02 [facility] Comment on above: Performed By: #### B SALES DEPARTMENT SUPERVISOR, CMP, TSH, LIPID #### [facility] [address] [address] [address] Reji Thomas EGFR-AF BELGIAN 34 mL/min/1.73m2 Critically low >=60 [facility] Comment on above: Performed By: #### B SALES DEPARTMENT SUPERVISOR, CMP, TSH, LIPID #### [facility] [address] [address] [address] Reji Thomas EGFR-NON AF BELGIAN 28 mL/min/1.73m2 Critically low >=60 [facility] Comment on above: Performed By: #### B SALES DEPARTMENT SUPERVISOR, CMP, TSH, LIPID #### [facility] [address] [place] [address] Dr. Reji Thomas Glucose [Mass/Vol] 79 mg/dL Normal 74-106 [facility] Comment on above: Performed By: #### B SALES DEPARTMENT SUPERVISOR, CMP, TSH, LIPID #### [facility] [address] [place] [address] Dr. Reji Thomas Potassium [Moles/Vol] 4.0 mmol/L Normal 3.5-5.1 [facility] Comment on above: Performed By: #### B SALES DEPARTMENT SUPERVISOR, CMP, TSH, LIPID #### [facility] [address] [place] [address] Dr. Reji Thomas Sodium [Moles/Vol] 140 mmol/L Normal 136-145 [facility] Comment on above: Performed By: #### B SALES DEPARTMENT SUPERVISOR, CMP, TSH, LIPID #### [facility] [address] [address] [address] Reji Thomas Urea nitrogen [Mass/Vol] 22.0 mg/dL Critically high 7.0-18.0 [facility] Comment on above: Performed By: #### B SALES DEPARTMENT SUPERVISOR, CMP, TSH, LIPID #### [facility] [address] [address] [address] Reji Thomas Urea nitrogen/Creatinine [Mass ratio] 12.7 mg/mg Normal [facility] Comment on above: Performed By: #### B SALES DEPARTMENT SUPERVISOR, CMP, TSH, LIPID #### [facility] [address] [address] [address] Reji Thomas PROTIMEon 05-15-2022 INR Coag (PPP) [Relative time] 2.53 {INR} Normal [facility] Comment on above: Performed By: #### B SALES DEPARTMENT SUPERVISOR, CMP, TSH, LIPID #### [facility] [address] [address] [address] Reji Thomas INR GUIDELINES SEE BELOW Normal [facility] Comment on above: Result Comment: SHY RED INR: 2.0 - 3.0 CONDITIONS NOT LISTED BELOW 2.5 - 3.5 FOR PROSTHETIC HEART VALVE REPLACEMENT 2.5 - 3.5 RECURRENT THROMBOSIS Performed By: #### B SALES DEPARTMENT SUPERVISOR, CMP, TSH, LIPID #### [facility] [address] [address] [address] Reji Thomas PT Coag (PPP) [Time] 25.7 s Critically high 9.0-11.6 [facility] Comment on above: Performed By: #### B SALES DEPARTMENT SUPERVISOR, CMP, TSH, LIPID #### [facility] [address] [place] [address] Dr. Reji Thomas ECHOCARDIO M/2D COMPLETEon 0 05-04-2022 ECHOCARDIO M/2D COMPLETE Patient: INEZ JUAREZ Exam Date: 05/04/2022 : 1940 Gender:F Ordering : DR JENN PRADO M.D. Admission #: [id number] Family : Order #: [id number] CLICK HERE TO VIEW EXAM ECHOCARDIOGRAM REPORT [...] Area(A4C): 27.20 cm2 Left Atrium Systolic Volume(A2C): 578841 mm3 Left Atrium Systolic Volume(A4C): 41591 mm3 Mitral Valve MV E to A Ratio: 2.60 Deceleration [place]: [address]4050 mm/s2 Mitral Valve A-Wave Peak Velocity: 58.60 [...] M.D. on 05/07/2022 at 11:39 Normal [facility] EVAN by IFAon 04-19-2022 Antinuclear Antibodies, IFA Positive Abnormal [facility] Comment on above: Result Comment: Nega tive <1:80 Borderline 1:80 Positive >1:80 Performed By: #### B SALES DEPARTMENT SUPERVISOR, CMP, TSH, LIPID #### [facility] [address] [address] [address] Reji Thomas Centriole Pattern Normal [facility] Comment on above: Performed By: #### B SALES DEPARTMENT SUPERVISOR, CMP, TSH, LIPID #### [facility] [address] [address] [address] Reji Thomas Centromere Pattern Normal [facility] Comment on above: Performed By: #### B SALES DEPARTMENT SUPERVISOR, CMP, TSH, LIPID #### [facility] [address] [address] [address] Reji Thomas Homogeneous Pattern 1:320 Critically high [facility] Comment on above: Result Comment: ICAP nomenclature: AC-1 Performed By: #### B SALES DEPARTMENT SUPERVISOR, CMP, TSH, LIPID #### [facility] [address] [address] [address] Reji Thomas Midbody Pattern Normal [facility] Comment on above: Performed By: #### B SALES DEPARTMENT SUPERVISOR, CMP, TSH, LIPID #### [facility] [address] [address] [address] Reji Thomas Note: Comment Normal [facility] Comment on above: Result Comment: For [...] titers Nucleosomes, Histones Drug-induced SLE Speckled Sm, SERVICE OBSERVER, SCL-70, SLE,MCTD,PSS (diffuse form), SS-A/SS-B Sjogrens Nucleolar SCL-70, PM-1/SCL High titers Scleroderma, PM/DM Centromere Centromere PSS (limited form) w/Crest syndrome variable Nuclear Dot [id number] Primary Biliary Cirrhosis Nuclear GP210, Primary Biliary Cirrhosis Membrane eleonora A,B,C Performed By: #### B SALES DEPARTMENT SUPERVISOR, CMP, TSH, LIPID #### [facility] [address] [address] [address] Reji Thomas Nuclear Dot Pattern Normal [facility] Comment on above: Performed By: #### B SALES DEPARTMENT SUPERVISOR, CMP, TSH, LIPID #### [facility] [address] [address] [address] Reji Thomas Nuclear Membrane Pattern Normal [facility] Comment on above: Performed By: #### B SALES DEPARTMENT SUPERVISOR, CMP, TSH, LIPID #### [facility] [address] [address] [address] Reji Thomas Nucleolar Pattern Normal [facility] Comment on above: Performed By: #### B SALES DEPARTMENT SUPERVISOR, CMP, TSH, LIPID #### [facility] [address] [address] [address] Reji Thomsa PCNA Pattern Normal [facility] Comment on above: Performed By: #### B SALES DEPARTMENT SUPERVISOR, CMP, TSH, LIPID #### [facility] [address] [address] [address] Reji Thomas Speckled Pattern Normal [facility] Comment on above: Performed By: #### B SALES DEPARTMENT SUPERVISOR, CMP, TSH, LIPID #### [facility] [address] [address] [address] Reji Thomas Spindle Apparatus Pattern Normal [facility] Comment on above: Performed By: #### B SALES DEPARTMENT SUPERVISOR, CMP, TSH, LIPID #### [facility] [address] [address] [address] Reji Thomas ANCA (ANTINEUTROPHIL CYTOPLA MSMIC ABon 04-18-2022 Atypical pANCA <1:20 Normal Neg:<1:20 [facility] Comment on above: Result Comment: Seru m is slightly hemolyzed The atypical pANCA pattern has been observed in a significant percentage of patients with ulcerative colitis, primary sclerosing cholangitis and autoimmune hepatitis. Performed By: #### B MP #### [facility] [address] [address] [address] Reji Thomas Cytoplasmic (C-ANCA) <1:20 Normal Neg:<1:20 [facility] Comment on above: Result Comment: Seru m is slightly hemolyzed Performed By: #### B MP #### [facility] [address] [address] [address] Reji Thomas Perinuclear (P-ANCA) <1:20 Normal Neg:<1:20 [facility] Comment on above: Result Comment: Seru m is slightly hemolyzed The presence of positive fluorescence exhibiting P-ANCA or C-ANCA patterns alone is not specific for the diagnosis of Arlene's Granulomatosis (WG) or microscopic polyangiitis. Decisions about treatment should not be based solely on ANCA IFA results. The [employer] ANCA [employer] Consensus recommends follow up testing of positive sera with both NE-3 and MPO-ANCA enzyme immunoassays. As many as 5% serum samples are positive only by EIA. Ref. AM J Clin Pathol 1999;111:507-513. Performed By: #### B MP #### [facility] [address] [place] [address] Dr. Reji Thomas ANTISCLERODERMA ABon 022 Antiscleroderma-70 Antibodies 0.3 AI Normal 0.0-0.9 [facility] Comment on above: Performed By: #### B SALES DEPARTMENT SUPERVISOR, CMP, TSH, LIPID #### [facility] [address] [address] [address] Reji Thomas T3 UPTAKEon 04-18-2022 Free Thyroxine Index 1.8 Normal 1.2-4.9 [facility] Comment on above: Performed By: #### B SALES DEPARTMENT SUPERVISOR, CMP, TSH, LIPID #### [facility] [address] [address] [address] Reji Thomas T3 Uptake 23 % Critically low 24-39 [facility] Comment on above: Performed By: #### B SALES DEPARTMENT SUPERVISOR, CMP, TSH, LIPID #### [facility] [address] [address] [address] Reji Thomas T4 LABCORPon 04-18-2022 T4 [Mass/Vol] 7.8 ug/dL Normal 4.5-12.0 [facility] Comment on above: Performed By: #### B SALES DEPARTMENT SUPERVISOR, CMP, TSH, LIPID #### [facility] [address] [place] [address] Dr. Reji Thomas BNPon 04-16-2022 Natriuretic peptide B (Bld) [Mass/Vol] 2870.0 pg/mL Critically high <=1,800.0 [facility] Comment on above: Result Comment: repe ated Performed By: #### B SALES DEPARTMENT SUPERVISOR, CMP, TSH, LIPID #### [facility] [address] [place] [address] Dr. Reji Thomas CBC AUTO DIFFon 04-16-2022 BASO # 0.1 103/ul Normal 0.0-0.1 [facility] Comment on above: Performed By: #### B SALES DEPARTMENT SUPERVISOR, CMP, TSH, LIPID #### [facility] [facility] [address] [place] [address] Dr. Reji Thomas Basophils/100 WBC (Bld) 0.9 % Normal 0.2-2.0 [facility] Comment on above: Performed By: #### B SALES DEPARTMENT SUPERVISOR, CMP, TSH, LIPID #### [facility] [address] [place] [address] Dr. Reji Thomas EO # 0.3 103/ul Normal 0.0-0.7 [facility] Comment on above: Performed By: #### B SALES DEPARTMENT SUPERVISOR, CMP, TSH, LIPID #### [facility] [address] [place] [address] Dr. Reji Thomas Eosinophils/100 WBC (Bld) 3.9 % Normal 0.9-7.0 [facility] Comment on above: Performed By: #### B SALES DEPARTMENT SUPERVISOR, CMP, TSH, LIPID #### [facility] [address] [place] [address] Dr. Reji Thomas Erythrocyte distribution width (RBC) [Ratio] 15.9 % Critically high 11.0-15.0 [facility] Comment on above: Performed By: #### B SALES DEPARTMENT SUPERVISOR, CMP, TSH, LIPID #### [facility] [address] [place] [address] Dr. Reji Thomas Hematocrit (Bld) [Volume fraction] 38.1 % Normal 36.0-48.0 [facility] Comment on above: Performed By: #### B SALES DEPARTMENT SUPERVISOR, CMP, TSH, LIPID #### [facility] [address] [place] [address] Dr. Reji Thomas Hemoglobin (Bld) [Mass/Vol] 12.1 g/dL Normal 12.0-16.0 [facility] Comment on above: Performed By: #### B SALES DEPARTMENT SUPERVISOR, CMP, TSH, LIPID #### [facility] [address] [place] [address] Dr. Reji Thomas IG # 0.02 10e3/ul Normal 0.00-0.03 [facility] Comment on above: Performed By: #### B SALES DEPARTMENT SUPERVISOR, CMP, TSH, LIPID #### [facility] [address] [place] [address] Dr. Reji Thomas IG % 0.3 % Normal 0.0-0.5 [facility] Comment on above: Performed By: #### B SALES DEPARTMENT SUPERVISOR, CMP, TSH, LIPID #### [facility] [address] [place] [address] Dr. Reji Thomas LYMPH # 1.6 103/ul Normal 1.2-3.8 [facility] Comment on above: Performed By: #### B SALES DEPARTMENT SUPERVISOR, CMP, TSH, LIPID #### [facility] [address] [place] [address] Dr. Reji Thomas Lymphocytes/100 WBC (Bld) 22.6 % Normal 20.5-60.0 [facility] Comment on above: Performed By: #### B SALES DEPARTMENT SUPERVISOR, CMP, TSH, LIPID #### [facility] [address] [place] [address] Dr. Reji Thomas MANUAL DIFF REQ NO Normal [facility] Comment on above: Performed By: #### B SALES DEPARTMENT SUPERVISOR, CMP, TSH, LIPID #### [facility] [address] [place] [address] Dr. Reji Thomas MCH (RBC) [Entitic mass] 26.5 pg Critically low 26.7-34.0 [facility] Comment on above: Performed By: #### B SALES DEPARTMENT SUPERVISOR, CMP, TSH, LIPID #### [facility] [address] [place] [address] Dr. Reji Thomas MCHC (RBC) [Mass/Vol] 31.8 g/dL Normal 29.9-35.2 [facility] Comment on above: Performed By: #### B SALES DEPARTMENT SUPERVISOR, CMP, TSH, LIPID #### [facility] [address] [place] [address] Dr. Reji Thomas MCV (RBC) [Entitic vol] 83.4 fL Normal 81.0-99.0 [facility] Comment on above: Performed By: #### B SALES DEPARTMENT SUPERVISOR, CMP, TSH, LIPID #### [facility] [address] [place] [address] Dr. Reji Thomas MONO # 0.6 103/ul Normal 0.3-0.8 [facility] Comment on above: Performed By: #### B SALES DEPARTMENT SUPERVISOR, CMP, TSH, LIPID #### [facility] [address] [place] [address] Dr. Reji Thomas Monocytes/100 WBC (Bld) 9.3 % Normal 1.7-12.0 [facility] Comment on above: Performed By: #### B SALES DEPARTMENT SUPERVISOR, CMP, TSH, LIPID #### [facility] [address] [place] [address] Dr. Reji Thomas NEUT # 4.3 103/ul Normal 1.4-6.5 [facility] Comment on above: Performed By: #### B SALES DEPARTMENT SUPERVISOR, CMP, TSH, LIPID #### [facility] [address] [place] [address] Dr. Rjei Thomas Neutrophils/100 WBC (Bld) 63.0 % Normal 43.0-75.0 [facility] Comment on above: Performed By: #### B SALES DEPARTMENT SUPERVISOR, CMP, TSH, LIPID #### [facility] [address] [place] [address] Dr. Reji Thomas Platelet mean volume (Bld) [Entitic vol] 9.2 fL Critically low 9.5-13.5 [facility] Comment on above: Performed By: #### B SALES DEPARTMENT SUPERVISOR, CMP, TSH, LIPID #### [facility] [address] [address] [address] Reji Thomas PLT 211 103/ul Normal 150-450 [facility] Comment on above: Performed By: #### B SALES DEPARTMENT SUPERVISOR, CMP, TSH, LIPID #### [facility] [address] [address] [address] Reji Thomas RBC 4.57 106/ul Normal 4.20-5.40 [facility] Comment on above: Performed By: #### B SALES DEPARTMENT SUPERVISOR, CMP, TSH, LIPID #### [facility] [address] [place] [address] Dr. Reji Thomas WBC 6.9 103/ul Normal 4.0-11.0 [facility] Comment on above: Performed By: #### B SALES DEPARTMENT SUPERVISOR, CMP, TSH, LIPID #### [facility] [address] [place] [address] Dr. Reji Thomas GLYCOHEMOGLOBIN A1Con 2021 ADA RECOMMENDATION SEE BELOW Normal [facility] Comment on above: Result Comment: ADA RECOMMENDED LIMIT 4.0 - 6.0 ADA THERAPEUTIC TARGET < 7.0 ACTION SUGGESTED > 7.0 Performed By: #### B SALES DEPARTMENT SUPERVISOR, CMP, TSH, LIPID #### [facility] [address] [place] [address] Dr. Reji Thomas Glucose [Mass/Vol] 100 mg/dL Normal [facility] Comment on above: Performed By: #### B SALES DEPARTMENT SUPERVISOR, CMP, TSH, LIPID #### [facility] [address] [place] [address] Dr. Reji Thomas HbA1c (Bld) [Mass fraction] 5.1 % Normal 4.5-6.2 [facility] Comment on above: Performed By: #### B SALES DEPARTMENT SUPERVISOR, CMP, TSH, LIPID #### [facility] [address] [place] [address] Dr. Reji Thomas IRONon 04-16-2022 Iron [Mass/Vol] 42.0 ug/dL Critically low 50.0-170.0 [facility] Comment on above: Performed By: #### B SALES DEPARTMENT SUPERVISOR, CMP, TSH, LIPID #### [facility] [address] [address] [address] Reji Thomas LIPID PROFILEon 04-16-2022 CHOL-HDL RATIO NORM SEE BELOW Normal [facility] Comment on above: Result Comment: 3.3 - 4.4 LOW RISK 4.4 - 7.1 AVERAGE RISK 7.1 - 11.0 MODERATE RISK >11.0 HIGH RISK Performed By: #### B SALES DEPARTMENT SUPERVISOR, CMP, TSH, LIPID #### [facility] [address] [address] [address] Reji Thomas Cholesterol [Mass/Vol] 176 mg/dL Normal <=200 [facility] Comment on above: Performed By: #### B SALES DEPARTMENT SUPERVISOR, CMP, TSH, LIPID #### [facility] [address] [place] [address] Dr. Reji Thomas Cholesterol in HDL [Mass/Vol] 52 mg/dL Normal 40-60 [facility] Comment on above: Performed By: #### B SALES DEPARTMENT SUPERVISOR, CMP, TSH, LIPID #### [facility] [address] [address] [address] Reji Thomas Cholesterol in LDL [Mass/Vol] 102.8 mg/dL Normal [facility] Comment on above: Performed By: #### B SALES DEPARTMENT SUPERVISOR, CMP, TSH, LIPID #### [facility] [address] [address] [address] Reji Thomas Cholesterol.total/Ch olesterol in HDL [Mass ratio] 3.4 {ratio} Normal [facility] Comment on above: Performed By: #### B SALES DEPARTMENT SUPERVISOR, CMP, TSH, LIPID #### [facility] [address] [place] [address] Dr. Reji Thomas HDL NORMAL > or = 60 mg/dl - LOW CARDIOVASCULAR RISK <40 mg/dl - HIGH CARDIOVASCULAR RISK Normal [facility] Comment on above: Performed By: #### B SALES DEPARTMENT SUPERVISOR, CMP, TSH, LIPID #### [facility] [address] [place] [address] Dr. Reji Thomas LDL CALC NORMAL SEE BELOW Normal [facility] Comment on above: Result Comment: <100 mg/dl OPTIMAL 100 - 129 mg/dl NEAR OR ABOVE OPTIMAL 130 - 159 mg/dl BORDERLINE HIGH 160 - 189 mg/dl HIGH >190 mg/dl VERY HIGH Performed By: #### B SALES DEPARTMENT SUPERVISOR, CMP, TSH, LIPID #### [facility] [address] [address] [address] Reji Thomas Triglyceride [Mass/Vol] 106 mg/dL Normal <=150 [facility] Comment on above: Performed By: #### B SALES DEPARTMENT SUPERVISOR, CMP, TSH, LIPID #### [facility] [address] [address] [address] Reji Thomas VLDL CALC 21.2 mg/dL Normal [facility] Comment on above: Performed By: #### B SALES DEPARTMENT SUPERVISOR, CMP, TSH, LIPID #### [facility] [address] [place] [address] Dr. Reji Thomas PROF 14(COMP METB)on 022 Albumin [Mass/Vol] 3.6 g/dL Normal 3.4-5.0 [facility] Comment on above: Performed By: #### B SALES DEPARTMENT SUPERVISOR, CMP, TSH, LIPID #### [facility] [address] [place] [address] Dr. Reji Thomas Albumin/Globulin [Mass ratio] 0.9 {ratio} Normal [facility] Comment on above: Performed By: #### B SALES DEPARTMENT SUPERVISOR, CMP, TSH, LIPID #### [facility] [address] [place] [address] Dr. Reji Thomas ALP [Catalytic activity/Vol] 62 U/L Normal 46-116 [facility] Comment on above: Performed By: #### B SALES DEPARTMENT SUPERVISOR, CMP, TSH, LIPID #### [facility] [address] [place] [address] Dr. Reji Thomas ALT [Catalytic activity/Vol] 14 U/L Normal 14-59 [facility] Comment on above: Performed By: #### B SALES DEPARTMENT SUPERVISOR, CMP, TSH, LIPID #### [facility] [address] [place] [address] Dr. Reji Thomas Anion gap [Moles/Vol] 14.5 mmol/L Normal [facility] Comment on above: Performed By: #### B SALES DEPARTMENT SUPERVISOR, CMP, TSH, LIPID #### [facility] [address] [place] [address] Dr. Reji Thomas AST [Catalytic activity/Vol] 17 U/L Normal 15-37 [facility] Comment on above: Performed By: #### B SALES DEPARTMENT SUPERVISOR, CMP, TSH, LIPID #### [facility] [address] [address] [address] Reji Thomas Bilirubin [Mass/Vol] 0.6 mg/dL Normal 0.2-1.0 [facility] Comment on above: Performed By: #### B SALES DEPARTMENT SUPERVISOR, CMP, TSH, LIPID #### [facility] [address] [address] [address] Reji Thomas Calcium [Mass/Vol] 8.8 mg/dL Normal 8.5-10.1 [facility] Comment on above: Performed By: #### B SALES DEPARTMENT SUPERVISOR, CMP, TSH, LIPID #### [facility] [address] [address] [address] Reji Thomas Chloride [Moles/Vol] 102 mmol/L Normal 98-107 [facility] Comment on above: Performed By: #### B SALES DEPARTMENT SUPERVISOR, CMP, TSH, LIPID #### [facility] [address] [address] [address] Reji Thomas CO2 [Moles/Vol] 26.3 mmol/L Normal 21.0-32.0 [facility] Comment on above: Performed By: #### B SALES DEPARTMENT SUPERVISOR, CMP, TSH, LIPID #### [facility] [address] [address] [address] Reji Thomas Creatinine [Mass/Vol] 1.76 mg/dL Critically high 0.55-1.02 [facility] Comment on above: Performed By: #### B SALES DEPARTMENT SUPERVISOR, CMP, TSH, LIPID #### [facility] [address] [address] [address] Reji Thomas EGFR-AF BELGIAN 33 mL/min/1.73m2 Critically low >=60 [facility] Comment on above: Performed By: #### B SALES DEPARTMENT SUPERVISOR, CMP, TSH, LIPID #### [facility] [address] [address] [address] Reji Thomas EGFR-NON AF BELGIAN 28 mL/min/1.73m2 Critically low >=60 [facility] Comment on above: Performed By: #### B SALES DEPARTMENT SUPERVISOR, CMP, TSH, LIPID #### [facility] [address] [place] [address] Dr. Reji Thomas Globulin (S) [Mass/Vol] 4.2 g/dL Normal [facility] Comment on above: Performed By: #### B SALES DEPARTMENT SUPERVISOR, CMP, TSH, LIPID #### [facility] [address] [place] [address] Dr. Reji Thomas Glucose [Mass/Vol] 81 mg/dL Normal 74-106 [facility] Comment on above: Performed By: #### B SALES DEPARTMENT SUPERVISOR, CMP, TSH, LIPID #### [facility] [address] [place] [address] Dr. Reji Thomas Potassium [Moles/Vol] 3.8 mmol/L Normal 3.5-5.1 [facility] Comment on above: Performed By: #### B SALES DEPARTMENT SUPERVISOR, CMP, TSH, LIPID #### [facility] [address] [place] [address] Dr. Reji Thomas Protein [Mass/Vol] 7.8 g/dL Normal 6.4-8.2 [facility] Comment on above: Performed By: #### B SALES DEPARTMENT SUPERVISOR, CMP, TSH, LIPID #### [facility] [address] [place] [address] Dr. Reji Thomas Sodium [Moles/Vol] 139 mmol/L Normal 136-145 [facility] Comment on above: Performed By: #### B SALES DEPARTMENT SUPERVISOR, CMP, TSH, LIPID #### [facility] [address] [place] [address] Dr. Reji Thomas Urea nitrogen [Mass/Vol] 27.0 mg/dL Critically high 7.0-18.0 [facility] Comment on above: Performed By: #### B SALES DEPARTMENT SUPERVISOR, CMP, TSH, LIPID #### [facility] [address] [place] [address] Dr. Reji Thomas Urea nitrogen/Creatinine [Mass ratio] 15.3 mg/mg Normal [facility] Comment on above: Performed By: #### B SALES DEPARTMENT SUPERVISOR, CMP, TSH, LIPID #### [facility] [address] [place] [address] Dr. Reji Thomas PROTIMEon 04-16-2022 INR Coag (PPP) [Relative time] 1.92 {INR} Normal [facility] Comment on above: Performed By: #### B SALES DEPARTMENT SUPERVISOR, CMP, TSH, LIPID #### [facility] [address] [place] [address] Dr. Reji Thomas INR GUIDELINES SEE BELOW Normal [facility] Comment on above: Result Comment: SHY RED INR: 2.0 - 3.0 CONDITIONS NOT LISTED BELOW 2.5 - 3.5 FOR PROSTHETIC HEART VALVE REPLACEMENT 2.5 - 3.5 RECURRENT THROMBOSIS Performed By: #### B SALES DEPARTMENT SUPERVISOR, CMP, TSH, LIPID #### [facility] [address] [place] [address] Dr. Reji Thomas PT Coag (PPP) [Time] 19.9 s Critically high 9.0-11.6 [facility] Comment on above: Performed By: #### B SALES DEPARTMENT SUPERVISOR, CMP, TSH, LIPID #### [facility] [address] [place] [address] Dr. Reji Thomas [facility] SED RATE 37 mm/hr Critically high <=30 [facility] Comment on above: Performed By: #### B SALES DEPARTMENT SUPERVISOR, CMP, TSH, LIPID #### [facility] [address] [place] [address] Dr. Reji Thomas TSHon 04-16-2022 TSH 1.941 uIU/mL Normal 0.358-3.740 [facility] Comment on above: Performed By: #### B SALES DEPARTMENT SUPERVISOR, CMP, TSH, LIPID #### [facility] [address] [place] [address] Dr. Reji Thomas TSH RANGE SEE BELOW Normal [facility] Comment on above: Result Comment: <0.3 4 UIU/ml HYPERTHYROID 0.34-5.60 UIU/ml EUTHYROID >5.60 UIU/ml HYPOTHYROID Performed By: #### B SALES DEPARTMENT SUPERVISOR, CMP, TSH, LIPID #### [facility] [address] [place] [address] Dr. Reji Thomas VITAMIN D 25 OHon 04-16-2022 VIT D 25-OH 56.6 ng/mL Normal [facility] Comment on above: Performed By: #### B SALES DEPARTMENT SUPERVISOR, CMP, TSH, LIPID #### [facility] [address], [place] [address] Dr. Reji Thomas VIT D RANGES SEE BELOW Normal [facility] Comment on above: Result Comment: <20 ng/mL Vit D deficient 20 - <30 ng/mL Vit D insufficient 30 - 100 ng/mL Vit D sufficient >100 ng/mL Potential Toxicity Performed By: #### B SALES DEPARTMENT SUPERVISOR, CMP, TSH, LIPID #### [facility] [address], [place] [address] Dr. Reji Thomas Cardiovascular Lab Reporton 11-02-2021 Cardiovascular Lab Report [facility] Patient Name: Inez Juarez MR #: [id number] [facility] Physician: Jenn Prado M.D. Department of Service Date: 11/01/2021 Medicine Birthdate: 1940 Division of Room #: Cardiology Adult Cardiovascular Services [place] [address] Cardiovascular Laboratory Report INDICATION: The patient is [...] She signed consent. 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 The right neck area was prepped and draped in usual fashion. Micropuncture technique and ultrasound guidance were used for access in the right internal jugular vein. A 6-Australian x 11 cm sheath was placed. A 6-Australian Hernández catheter was used for heart catheterization [...] Prado M.D. Date Trans: 11/01/2021 11:22 P/alondra [id number] cc: Bruce Rizvi M.D. [address], [facility] [address] [place] [facility] Cardiovascular Lab Reporton 06-02-2021 Cardiovascular Lab Report [facility] Patient Name: Inez Juarez MR #: [id number] [facility] Physician: Jenn Prado M.D. Department of Service Date: 06/02/2021 Medicine Birthdate: 1940 Division of Room #: CC Cardiology Adult Cardiovascular Services [address] [address] Cardiovascular Laboratory Report INDICATION: The patient is [...] the informed consent. 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 The right neck area was prepped and draped in usual fashion. Using micropuncture technique and ultrasound guidance, the right internal jugular vein was accessed and a 6-Australian x 11 cm sheath was placed. A 6-Australian Hernández catheter was used for heart catheterization [...] Prado M.D. Date Trans: 06/02/2021 02:42 P/mmo [id number] cc: Bruce Rizvi M.D. [address] [place] [address] [facility] Encounters Encounter Date Encounter Type Care Provider Facility Start: 06-28-2025 End: 06-28-2025 ambulatory JENN PRADO [facility] Start: 03-22-2023 End: 03-23-2023 ambulatory [...] Start: 11-01-2021 End: 11-02-2021 ambulatory PROVIDER UNKNOWN Facility:[facility] Start: 06-02-2021 End: 06-03-2021 ambulatory PROVIDER UNKNOWN Facility:[facility] Payers Date Payer Category Payer Medicare [id number] 1961 Medicare [id number] 1961 Medicare [id number] 1961 Self-pay [id number] 1940 Unknown [id number] 2.16.8 [id number] 1940 Unknown [id number] 2.16.8 40.1.704528.3.579.2.647 1938 Unknown [id number] 2.16.84 0.1.850145.3.579.2.593 1938 Unknown [id number] 2.16.84 0.1.616253.3.579.2.593 1938 Unknown [id number] 2.16.84 0.1.358108.3.579.2.593 1938 Unknown [id number] 2.16.84 0.1.769071.3.579.2.593 1938 Unknown [id number] 2.16.84 0.1.576207.3.579.2.593 1938 Unknown [id number] 2.16.84 0.1.152443.3.579.2.593 1938 Unknown [id number] 2.16.84 0.1.110357.3.579.2.593 1938 Unknown [id number] 2.16.84 0.1.003528.3.579.2.593 1938 Unknown [id number] 2.16.84 0.1.347818.3.579.2.593 1938 Unknown [id number] 2.16.84 0.1.979307.3.579.2.593 1938 Unknown [id number] 2.16.84 0.1.813956.3.579.2.593 1938 Unknown [id number] 2.16.84 0.1.710337.3.579.2.593 1938 Unknown [id number] 2.16.84 0.1.653528.3.579.2.593 1938 Unknown [id number] 2.16.84 0.1.175940.3.579.2.593 1938 Unknown [id number] 2.16.84 0.1.002347.3.579.2.593 1938 Unknown [id number] 2.16.84 0.1.676781.3.579.2.593 1938 Unknown [id number] 2.16.84 0.1.901500.3.579.2.593 1938 Unknown [id number] 2.16.84 0.1.490984.3.579.2.593 1938 Unknown [id number] 2.16.84 0.1.240443.3.579.2.593 Private Health Insurance LAB [id number] Progress note 06-28-2025 Note Date & Type Note Facility 06-28-2025 Note [facility] Petrona Juarez is a 85 y.o. year old female patient being seen for a 1 year follow up with recent Echo. Patient states she feels pretty good just tired. Patient denies chest pain,palpitations/racing heart, dizziness/lightheadedness. Patient complains of SOB, BOURGEOIS, leg swelling, bruising/bleeding/discoloration, and loss of balance. Patient Active Problem List Diagnosis Atrial fibrillation ([facility]/HCC) Essential hypertension Hyperlipidemia Gastroesophageal reflux disease Mitral valve disorder Pulmonary hypertension ([facility]/HCC) Renal failure syndrome CHF (congestive heart failure) ([facility]) Chronic kidney disease Gout Abnormal result [...] Musculoskeletal: Positive for (more content not included)... [facility] Summary Purpose Family History No Family History Records FoundNo Family History Records FoundNo Family History Records FoundNo Family History Records Found Advance Directives No Advanced Directives Records FoundNo Advanced Directives Records FoundNo Advanced Directives Records FoundNo Advanced Directives Records Found Additional Source Comments INFORMATION SOURCE (unrecogn ized section and content) DATE CREATED AUTHOR 11/03/2021 [facility] DATE CREATED AUTHOR AUTHOR'S ORGANIZ ATION 07/05/2022 [facility] DATE CREATED AUTHOR AUTHOR'S ORGANIZ ATION 03/23/2023 [facility] DATE CREATED AUTHOR AUTHOR'S ORGANIZ ATION 08/06/2025 [facility] FOR RECORDS PERTAINING TO PATIENTS [...] BE BASED ON THE PRIMARY CLINICAL RECORDS. [email or web address] [facility]. provides no warranty or guarantee of the accuracy or completeness of information in this document.
--- OUTSIDE RECORDS SUMMARY | 2025-08-16 21:04 | XMS_ITS | Clinical Summary ---
Author Organization [facility] Address [address] [place] [address] Care Team Providers Care Clip Loading Machine Adjuster Name Role Phone Yoel Rizvi MD Primary Care Provider [phone] Allergies No known active allergies Medications albuterol [...] by oral route for 90 days. Active sacubitriL-valsar reddy (Entresto) 24-26 mg tablet Take 0.5 tablets by mouth in the morning and at bedtime. Active warfarin (Coumadin) 5 mg tablet Active allopurinol (Zyloprim) 100 mg tablet 1 (one) time each day at the same time. 3 Active furosemide (Lasix) 80 mg tabletIndications :Chronic diastolic congestive heart failure (CMS/HCC) TAKE 1 TABLET BY MOUTH IN THE MORNING 90 tablet 3 4 Active sildenafil (Revatio) 20 mg tabletIndications :Pulmonary hypertension (CMS/HCC) TAKE ONE AND ONE-HALF TABLETS THREE TIMES A DAY (IN THE MORNING, AT NOON, AND AT BEDTIME) 405 tablet 2 5 Active potassium chloride CR (Klor-Con) 10 mEq ER tabletIndications :Edema, unspecified type TAKE 1 TABLET BY MOUTH DAILY 90 tablet 3 5 Active amLODIPine (Norvasc) 10 mg tabletIndications :Essential hypertension TAKE 1 TABLET BY MOUTH DAILY 90 tablet 3 5 Active metoprolol succinate XL (Toprol-XL) 25 mg 24 hr tabletIndications :Essential hypertension TAKE ONE-HALF TABLET BY MOUTH DAILY 45 tablet 3 5 Active macitentan 10 mg tabletIndications :Pulmonary hypertension (CMS/HCC) Take 10 mg by mouth in the morning. 90 tablet 3 5 06/28/20 26 Active macitentan 10 mg tabletIndications :Pulmonary hypertension (CMS/HCC) Take 1 tablet by mouth in the morning. 90 tablet 3 5 06/29/20 26 Active furosemide (Lasix) 40 mg tabletIndications :Chronic diastolic congestive heart failure (CMS/HCC) TAKE 1 TABLET BY MOUTH ONCE DAILY IN THE EVENING 90 tablet 3 5 Active Active Problems Problem Noted Date Diagnosed [...] Type Department Care Team Description 08/04/2025 Telephone [facility] [address] [place] [address] Mariola Pascual MA 08/03/2025 Orders Only [facility] [address] [place] [facility] [place] [address] Ericka Grover MA Longstanding persistent atrial fibrillation (CMS/HCC) (Primary Dx) 07/15/2025 Refill [facility] [address] [place] [facility] [place] [address] Mitch Jc MD Chronic diastolic congestive heart failure (CMS/HCC) 06/29/2025 Orders Only [facility] [address] [place] [facility] [place] [address] Ericka Grover MA Pulmonary hypertension (CMS/HCC) (Primary Dx) 06/28/2025 1:45 PM EDT Office Visit [facility] [address] [place] [address] Mitch Jc MD Pulmonary hypertension (CMS/HCC) (Primary Dx); Chronic diastolic congestive heart failure (CMS/HCC); Longstanding persistent atrial fibrillation (CMS/HCC); Essential hypertension; Non-rheumatic mitral regurgitation; Nonrheumatic tricuspid valve regurgitation; Chronic kidney disease, stage 4 (severe) (CMS/HCC) 06/10/2025 Orders Only [facility] [address] [place] [address] Provider, MD Estefany from Last 3 Months [...] Office Visit [facility] [address] [place] [address] Mitch Jc MD [address] [facility] [address] [facility] [place] [address] Health Maintenance Due Date Last [...] AM EDT) Anatomical Region Laterality Modality Ultrasound us Historical Provider MD NICOLE ECHO PROCEDURES Final Result from Last [address] [place] [address] [employer] MEDICARE [place] [id number] Care Teams Clip Loading Machine Adjuster Relationship Specialty Start Date End Date Yoel Rizvi MD [address] [facility] [address] [address] PCP - General 10/22/22
--- OUTSIDE RECORDS SUMMARY | 2025-08-16 21:04 | XMS_ITS | Patient Health Record ---
Author Organization [facility] in [place] Address [address] [place] [address] Care Team Providers Care Stores Assistant Name Role Phone Regino Tierney Primary Care Provider [phone] Allergies Allergen (clinical drug ingredient) Drug/Non Drug Allergy documented on EMR Reaction Allergy Type Onset Date Status atorvastatin Atorvastatin Calcium Unknown Drug Allergy Active Results Component Value Reference Range Notes COVID-19, Flu A+B IH Reviewed date:08/16/2025 02:55:00 PM Interpretation: Performing Lab: Notes/Report: COVID - FLU A - FLU B - Control + Prothrombin Time INR Reviewed date:09/03/2024 07:52:19 PM Interpretation: Performing Lab: Notes/Report: [facility] , Prothrombin Time 16.2 9.0-11.6 sec INR 1.60 DESIRED INR: 2.0-3.0 CONDITIONS NOT LISTED BELOW 2.5-3.5 FOR PROSTHETIC HEART VALVE REPLACEMENT 2.5-3.5 RECURRENT THROMBOSIS Performing Lab: see note - [facility] LB Prothrombin Time INR Reviewed date:11/09/2024 08:40:25 PM Interpretation: Performing Lab: Notes/Report: [facility] , Prothrombin Time 27.7 9.0-11.6 sec INR 2.90 DESIRED INR: 2.0-3.0 CONDITIONS NOT LISTED BELOW 2.5-3.5 FOR PROSTHETIC HEART VALVE REPLACEMENT 2.5-3.5 RECURRENT THROMBOSIS Performing Lab: see note - [facility] LB Prothrombin Time INR Reviewed date:12/10/2024 10:12:40 PM Interpretation: Performing Lab: Notes/Report: [facility] , Prothrombin Time 30.3 9.0-11.6 sec INR 3.21 DESIRED INR: 2.0-3.0 CONDITIONS NOT LISTED BELOW 2.5-3.5 FOR PROSTHETIC HEART VALVE REPLACEMENT 2.5-3.5 RECURRENT THROMBOSIS Performing Lab: see note - [facility] Prothrombin Time INR Reviewed date:01/08/2025 01:04:10 PM Interpretation: Performing Lab: Notes/Report: [facility] , Prothrombin Time 33.7 9.0-11.6 sec INR 3.61 DESIRED INR: 2.0-3.0 CONDITIONS NOT LISTED BELOW 2.5-3.5 FOR PROSTHETIC HEART VALVE REPLACEMENT 2.5-3.5 RECURRENT THROMBOSIS Performing Lab: see note ML - [facility] Prothrombin Time INR Reviewed date:02/04/2025 09:05:01 PM Interpretation: Performing Lab: Notes/Report: [facility] , Prothrombin Time 32.9 9.0-11.6 sec INR 3.52 DESIRED INR: 2.0-3.0 CONDITIONS NOT LISTED BELOW 2.5-3.5 FOR PROSTHETIC HEART VALVE REPLACEMENT 2.5-3.5 RECURRENT THROMBOSIS Performing Lab: see note ML - [facility] Prothrombin Time INR Reviewed date:02/14/2025 04:04:25 PM Interpretation: Performing Lab: Notes/Report: [facility] , Prothrombin Time 41.0 9.0-11.6 sec RESULTS GEORGE LED TO DR. TIERNEY INR 4.[address] ITERNEY DESIRED INR: 2.0-3.0 CONDITIONS NOT LISTED BELOW 2.5-3.5 FOR PROSTHETIC HEART VALVE REPLACEMENT 2.5-3.5 RECURRENT THROMBOSIS Performing Lab: see note ML - [facility] Prothrombin Time INR Reviewed date:02/17/2025 01:09:11 PM Interpretation: Performing Lab: Notes/Report: [facility] , Prothrombin Time 18.8 9.0-11.6 sec INR 1.89 DESIRED INR: 2.0-3.0 CONDITIONS NOT LISTED BELOW 2.5-3.5 FOR PROSTHETIC HEART VALVE REPLACEMENT 2.5-3.5 RECURRENT THROMBOSIS Performing Lab: see note - [facility] VITAMIN D 25 [place] Reviewed date:04/01/2025 08:37:50 PM Interpretation: Performing Lab: Notes/Report: [facility] , Vitamin D 55.4 <20 ng/mL Vit D deficient 20-<30 ng/mL Vit D insufficient 30-100 ng/mL Vit D sufficient >100 ng/mL Potential Toxicity Performing Lab: see note [facility] Prothrombin Time INR Reviewed date:05/06/2025 07:26:51 PM Interpretation: Performing Lab: Notes/Report: [facility] , Prothrombin Time 24.0 9.0-11.6 sec INR 2.48 DESIRED INR: 2.0-3.0 CONDITIONS NOT LISTED BELOW 2.5-3.5 FOR PROSTHETIC HEART VALVE REPLACEMENT 2.5-3.5 RECURRENT THROMBOSIS Performing Lab: see note - [facility] Prothrombin Time INR Reviewed date:06/09/2025 11:19:34 PM Interpretation: Performing Lab: Notes/Report: [facility] , Prothrombin Time 29.5 9.0-11.6 sec INR 3.11 DESIRED INR: 2.0-3.0 CONDITIONS NOT LISTED BELOW 2.5-3.5 FOR PROSTHETIC HEART VALVE REPLACEMENT 2.5-3.5 RECURRENT THROMBOSIS Performing Lab: see note [facility] CA echo doppler complete Reviewed date:06/09/2025 11:19:34 PM Interpretation: Performing Lab: Notes/Report: Source Facility: [place] [address] Cardiology Report Signed Patient: FABY JUAREZ MR#: [id number] : 1940 Acct:[id number] Age/Sex: 85 / F ADM Date: 06/09/25 Loc: CARD Attending Dr: MITCH JC Ordering Physician: MITCH JC Date of Service: 06/09/25 Procedure(s): CA echo doppler complete Accession Number(s): [id number] cc: Yoel Tierney M.D.; MITCH JC Patient Name: FABY JUAREZ MR#: [id number] : 1940 Exam Date: 06/09/2025 Ordering Doctor: [...] JC Signed By: 06/09/251914 DD/ 13 TD/TT: Electric Needle Specialist: CBC AUTO DIFF Reviewed date:08/03/2025 05:42:47 PM Interpretation: Performing Lab: Notes/Report: [facility] , White Blood Count 6.9 4.0-11.0 10 [...] 3/uL Performing Lab: see note ML - [facility] LB LIVER PROFILE Reviewed date:08/03/2025 05:42:47 PM Interpretation: Performing Lab: Notes/Report: [facility] , Bilirubin Total 0.5 0.2-1.0 mg/dL Bilirubin Direct 0.2 0.0-0.2 mg/dL Aspartate Amino Transferase 14 15-37 U/L Alanine Aminotransferase 16 14-59 U/L Alkaline Phosphatase 68 46-116 U/L Total Protein 7.8 6.4-8.2 g/dL Albumin Level 3.4 3.4-5.0 g/dL Globulin 4.4 Albumin Globulin Ratio 0.8 Performing Lab: see note ML - [facility] LB PROF CHEM 8 (BAS METB) Reviewed date:08/03/2025 05:42:47 PM Interpretation: Performing Lab: Notes/Report: [facility] , Sodium 141 136-145 mmol/L Potassium 4.3 3.5-5.1 mmol/L Chloride 104 98-107 mmol/L Carbon Dioxide 27.4 21.0-32.0 mmol/L Anion Gap 13.9 Glucose 85 74-106 mg/dL Blood Urea Nitrogen 37.0 7.0-18.0 mg/dL Creatinine 2.33 0.55-1.02 mg/dL Estimated GFR ( Oralia 24 >=60 mL/min/1.73m 2 Estimated GFR (Non- Caitlyn 20 >=60 mL/min/1.73m 2 BUN Creatinine Ratio 15.9 Calcium 8.5 8.5-10.1 mg/dL Performing Lab: see note ML - [facility] LB CBC AUTO DIFF Reviewed date:08/05/2025 06:10:22 PM Interpretation: Performing Lab: Notes/Report: [facility] , White Blood Count 5.3 4.0-11.0 10 [...] 3/uL Performing Lab: see note ML - [facility] LB PROF 14(COMP METB) Reviewed date:08/05/2025 06:10:22 PM Interpretation: Performing Lab: Notes/Report: [facility] , Sodium 142 136-145 mmol/L Potassium 4.3 [...] 0.8 Performing Lab: see note ML - [facility] Prothrombin Time INR Reviewed date:08/05/2025 06:10:22 PM Interpretation: Performing Lab: Notes/Report: [facility] , Prothrombin Time 29.8 9.0-11.6 sec INR 3.15 DESIRED INR: 2.0-3.0 CONDITIONS NOT LISTED BELOW 2.5-3.5 FOR PROSTHETIC HEART VALVE REPLACEMENT 2.5-3.5 RECURRENT THROMBOSIS Performing Lab: see note - [facility] LB Prothrombin Time INR Reviewed date:07/08/2025 06:04:24 PM Interpretation: Performing Lab: Notes/Report: [facility] , Prothrombin Time 23.5 9.0-11.6 sec INR 2.42 DESIRED INR: 2.0-3.0 CONDITIONS NOT LISTED BELOW 2.5-3.5 FOR PROSTHETIC HEART VALVE REPLACEMENT 2.5-3.5 RECURRENT THROMBOSIS Performing Lab: see note - [facility] LB Prothrombin Time INR Reviewed date:04/01/2025 08:37:50 PM Interpretation: Performing Lab: Notes/Report: [facility] , Prothrombin Time 21.5 9.0-11.6 sec INR 2.19 DESIRED INR: 2.0-3.0 CONDITIONS NOT LISTED BELOW 2.5-3.5 FOR PROSTHETIC HEART VALVE REPLACEMENT 2.5-3.5 RECURRENT THROMBOSIS Performing Lab: see note ML - [facility] LB TSH Reviewed date:04/01/2025 08:37:50 PM Interpretation: Performing Lab: Notes/Report: [facility] , Thyroid Stimulating Hormone 3.807 0.358-3.740 u IU/mL Performing Lab: see note - [facility] LB T4 Reviewed date:04/01/2025 08:37:50 PM Interpretation: Performing Lab: Notes/Report: [facility] , T4 Thyroxine 5.80 4.80-13.90 ug/dL Performing Lab: see note - [facility] LB PROF 14(COMP METB) Reviewed date:04/01/2025 08:37:50 PM Interpretation: Performing Lab: Notes/Report: [facility] , Sodium 142 136-145 mmol/L [...] Globulin Ratio 0.8 Performing Lab: see note - [facility] LB LIPID PROFILE Reviewed date:04/01/2025 08:37:50 PM Interpretation: Performing Lab: Notes/Report: [facility] , Triglycerides 97 <=150 mg/dL [...] RISK Performing Lab: see note ML - [facility] LB IRON Reviewed date:04/01/2025 08:37:50 PM Interpretation: Performing Lab: Notes/Report: [facility] , Iron 32.0 50.0-170.0 ug/dL Performing Lab: see note - [facility] GLYCOHEMOGLOBIN A1C Reviewed date:04/01/2025 08:37:50 PM Interpretation: Performing Lab: Notes/Report: [facility] , Glycohemoglobin A1C 5.6 4.5-6.2 % ADA RECOMMENDED LIMIT 4.0 - 6.0 ADA THERAPEUTIC TARGET < 7.0 ACTION SUGGESTED > 7.0 Estimated Average Glucose 114 Performing Lab: see note ML - [facility] FREE T3 Reviewed date:04/01/2025 08:37:50 PM Interpretation: Performing Lab: Notes/Report: [facility] , Free T3 2.64 2.18-3.98 pg/mL Performing Lab: see note - [facility] CBC AUTO DIFF Reviewed date:04/01/2025 08:37:50 PM Interpretation: Performing Lab: Notes/Report: [facility] , White Blood Count 5.6 [...] 10 3/uL Performing Lab: see note - [facility] BNP Reviewed date:04/01/2025 08:37:50 PM Interpretation: Performing Lab: Notes/Report: [facility] , NT Pro B Type Natriuretic Pept 2255.0 <=1800.0 pg/mL RESULTS CALLED TO codey long lpn Performing Lab: see note [facility] Prothrombin Time INR Reviewed date:10/06/2024 06:10:24 PM Interpretation: Performing Lab: Notes/Report: [facility] , Prothrombin Time 23.0 9.0-11.6 sec INR 2.36 DESIRED INR: 2.0-3.0 CONDITIONS NOT LISTED BELOW 2.5-3.5 FOR PROSTHETIC HEART VALVE REPLACEMENT 2.5-3.5 RECURRENT THROMBOSIS Performing Lab: see note [facility] LB PROF CHEM 8 (BAS METB) Reviewed date:08/12/2025 05:48:53 PM Interpretation: Performing Lab: Notes/Report: [facility] , Sodium 141 136-145 mmol/L Potassium 4.3 3.5-5.1 mmol/L Chloride 105 98-107 mmol/L Carbon Dioxide 25.3 21.0-32.0 mmol/L Anion Gap 15.0 Glucose 102 74-106 mg/dL Blood Urea Nitrogen 45.0 7.0-18.0 mg/dL Creatinine 2.52 0.55-1.02 mg/dL Estimated GFR ( Oralia 22 >=60 mL/min/1.73m 2 Estimated GFR (Non- Caitlyn 18 >=60 mL/min/1.73m 2 BUN Creatinine Ratio 17.9 Calcium 8.6 8.5-10.1 mg/dL Performing Lab: see note ML - [facility] Reason For Referral No Information Medications Medication SIG (Take, Route, Frequency, Duration) Notes Start Date End Date Status Amoxicillin-Pot Clavulanate 875-125 MG 1 tablet Orally every 12 hrs; Duration: 10 days 08/16/2025 Active Citalopram Hydrobromide 40 MG 1 tablet Orally Once a day; Duration: 90 days Active Albuterol Sulfate HFA 108 (90 Base) MCG/ACT USE 2 INHALATIONS BY MOUTH 4 TIMES DAILY; Duration: 90 Active Macitentan 10 MG 1 tablet Orally Once a day; Duration: 30 days 06/30/2025 Active Lansoprazole 30 MG TAKE 1 CAPSULE BY [facility] DAILY; Duration: 90 days Active Klor-Con M10 10 MEQ 1 tablet with food O rally once daily Active Furosemide 80 MG 1 tablet Orally in morning; Duration: 30 days Active Aspirin 81 81 MG 1 tablet Orally Once a day Active Vitamin D3 50 MCG (1999) 1 capsule Or ally Once a day; Duration: 90 days 02/28/2023 Active amLODIPine Besylate 10 MG 1 tablet Orall y Once a day Active Sildenafil Citrate 20 MG 1 tablet Orally three times daily Active Allopurinol 100 MG take 1 tablet by meseret once daily; Duration: 30 Active Pravastatin Sodium 20 MG TAKE 1 TABLET D ; Duration: 90 Active Alendronate Sodium 70 MG TAKE 1 TABLET B Y MOUTH WEEKLY; Duration: 84 Active Metoprolol Succinate ER 25 MG 1/2 tablet Orally Once a day Active Fish Oil [place]-3 1000 MG 1 capsule Orall y Once a day Active [facility] Iron 325 (65 Fe) MG 1 tablet Orally BID Active Xanax 0.25 MG 1 tablet Orally Twic e a day; Duration: 30 days F41.9 02/02/2025 Active Warfarin Sodium 5 MG 1 tablet Orally Onc e daily; Duration: 90 days Active Social History Tobacco Use: Social History [...] W/U Status Risk Notes Problem Essential hypertension (22361748) Essential (primary) hypertension (I10) Active confirmed Problem Cardiomegaly (4113171) Cardiomegaly (I51.7) Active confirmed Problem Heart disease (disorder) (06543652) Other ill-defined heart diseases (I51.89) Active confirmed Problem Abnormal results of cardiovascular function studies (161398684) Abnormal result of cardiovascular function study, unspecified (R94.30) Active confirmed Problem Fatigue (11979427) Fatigue (R53.83) Active confirmed Problem Senile osteoporosis (23821605) 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) Active confirmed Problem Hyperlipidemia (03710483) Hyperlipidemia (E78.5) Active confirmed Problem Mitral regurgitation (19394547) Mitral regurgitation (I34.0) Active confirmed Problem Bradycardia (42483894) Bradycardia, sinus (R00.1) Active confirmed Problem Tricuspid regurgitation (943425179) Tricuspid regurgitation (I07.1) Active confirmed Problem Aortic valve disorder (7186451) Aortic stenosis (I35.0) Active confirmed Problem Left ventricular hypertrophy (91490452) Left ventricular hypertrophy (I51.7) Active confirmed Problem Diastolic heart failure (843610774) Diastolic heart failure (I50.30) Active confirmed Problem Gout (72371401) Gout (M10.9) Active confirmed Problem Hiatal hernia (17584765) Hiatal hernia (K44.9) Active confirmed Problem Ankle pain (475589896) Ankle pain (M25.579) Active confirmed Problem Chronic diastolic heart failure (675156724) Chronic diastolic (congestive) heart failure (I50.32) Active confirmed Problem Glaucoma (30380266) Glaucoma (H40.9) Active confirmed Problem Polyp of colon (disorder) (10291410) Colon polyps (K63.5) Active confirmed Problem Overweight (421735202) Over weight (E66.3) Active confirmed Problem Iron deficiency anemia (68238414) Anemia, iron deficiency (D50.9) Active confirmed Problem Recurrent falls (012949283) Recurrent falls (R29.6) Active confirmed Problem Ankle edema (11665244) Ankle edema (R60.0) Active confirmed Problem Diverticular disease (127226267) Diverticular disease (K57.90) Active confirmed Problem Fibrocystic breast changes (25661026) Fibrocystic breast disease (N60.19) Active confirmed Problem Gastro-esophageal reflux disease (987794005) Gastro-esophageal reflux disease (K21.9) Active confirmed Problem At risk for falls (121090950) At risk for falls (Z91.81) Active confirmed Problem Cardiomegaly (3621177) Atrial enlargement, left (I51.7) Active confirmed Problem Generalized anxiety disorder (72769593) Anxiety neurosis (F41.1) Active confirmed Problem Long-term current use of anticoagulant (143458049) Current use of anticoagulant therapy (Z79.01) Active confirmed Problem History of macrocytic anemia (Z86.2) Active confirmed Problem Pulmonary hypertension (05495516) Pulmonary hypertension (I27.20) Active confirmed Problem Pulmonary hypertension (07151151) Pulmonary hypertension, unspecified (I27.20) Active confirmed Problem Chronic atrial fibrillation (700244813) Chronic atrial fibrillation (I48.20) Active confirmed Problem Longstanding persistent atrial fibrillation (366500777) Longstanding persistent atrial fibrillation (I48.11) Active confirmed Problem Chronic kidney disease stage 3 (disorder) (069844094) Chronic kidney disease, stage 3 unspecified (N18.30) Active confirmed Problem Chronic kidney disease stage 3B (disorder) (368741834) Chronic kidney disease, stage 3b (N18.32) Active confirmed Problem Cardiomegaly (1134534) Atrial enlargement, right (I51.7) Active confirmed Problem Pericardial effusion (198534206) Pericardial effusion (I31.39) Active confirmed Vital Signs Blood pressure diastolic 72 mm Hg 08/16/2025 Height 57 in 08/16/2025 Blood pressure systolic 134 mm Hg 08/16/2025 Weight 137.6 lbs 08/16/2025 BMI 29.77 kg/m2 08/16/2025 Procedures Procedure Date Ordered Date Performed Result Body Sit e EAR IRRIGATION - performed 03/09/2025 N/A Encounters Encounter Location Date Provider Diagnosis [facility] [address] [place] [address] 08/16/2025 Regino Tierney Acute bronchitis, unspecified organism J20.9 [facility] [address] [place] [address] 08/28/2024 Regino Tierney Hyperlipidemia E78.5 ; Diastolic heart failure I50.30 ; Pulmonary hypertension I27.20 and Essential (primary) hypertension I10 [facility] [address] [place] [address] 03/09/2025 Regino Tierney Diastolic heart fail ure I50.30 ; Chronic atrial fibrillation I48.20 ; Hyperlipidemia E78.5 ; Chronic diastolic (congestive) heart failure I50.32 ; Essential (primary) hypertension I10 and Impacted cerumen of right ear H61.21 [facility] [address] [place] [address] 06/30/2025 Regino Tierney [facility] [address] [place] [address] 07/08/2025 Regino Tierney [facility] [address] [place] [address] 08/03/2025 Regino Tierney Chronic kidney disea se, stage 3b N18.32 [facility] [address] [place] [address] 08/05/2025 Regino Tierney Cardiomegaly I51.7 a nd Abnormal kidney function study R94.4 [facility] [address] [place] [address] 08/12/2025 Regino Tierney [facility] [address] [place] [address] 04/01/2025 Regino christine [facility] [address] [place] [address] 04/13/2025 Regino Tierney [facility] [address] [place] [address] 05/06/2025 Regino Tierney [facility] [address] [place] [address] 06/09/2025 Regino Velozchristine [facility] [address] [place] [address] 06/11/2025 Regino Tierney [facility] [address] [place] [address] 06/21/2025 Regino Tierney Hyperlipidemia E78.5 [facility] [address] [place] [address] 01/08/2025 Regino Tierney [facility] [address] [place] [address] 02/02/2025 Regino Tierney Diastolic heart fail ure I50.30 [facility] [address] [place] [address] 02/04/2025 Regino Tierney [facility] [address] [place] [address] 02/14/2025 Regino Tierney [facility] [address] [place] [address] 02/15/2025 Regino Tierney [facility] [address] [place] [address] 02/17/2025 Regino Tierney [facility] [address] [place] [address] 09/03/2024 Region Tierney [facility] [address] [place] [address] 09/08/2024 Regino Velozchristine [facility] [address] [place] [address] 10/06/2024 Regino Velozchristine [facility] [address] [place] [address] 11/09/2024 Regino christine [facility] [address] [place] [address] 12/10/2024 Regino Tierney Aortic stenosis I35. 0 and Longstanding persistent atrial fibrillation I48.11 [facility] [address] [place] [address] 12/10/2024 Regino Teirney Assessments Encounter Date Diagnosis (ICD Code) Assessment Notes Treatment Notes Treatment Clinical Notes Section Notes 08/28/2024 Hyperlipidemia (ICD-10 - E78.5) 08/28/2024 Diastolic heart failure (ICD-10 - I50.30) 03/09/2025 Chronic atrial fibrillation (ICD-10 - I48.20) 08/16/2025 Acute bronchitis, unspecified organism (ICD-10 - J20.9) Rest and drink more liquids, especially water. You may use a humidifier or vaporizer to help keep the drainage moist. Lxfx-mna-rtrxgga Nasal Saline may help the stuffy and runny nose. Use Ibuprofen and or Tylenol as needed for fever, chills, body aches or pain. Children 5 years old should not be given zkvn-fok-qfblckj cough and cold medications such as guaifenesin and dextromethorphan. If you're over age 5, you may try chbn-exa-xgbonsg cold medications such as guaifenesin and dextromethorphan, or multi-symptom cold reliever such as Dayquil to help reduce the symptoms. Antibiotics have been prescribed. You should take these until completed and follow the directions. Antibiotics can sometimes cause upset stomach, and in rare cases, serious allergic reactions or serious gastrointestinal problems. If you start having severe abdominal pain, severe vomiting, or bloody diarrhea, you should be reevaluated by your physician or urgent care immediately. Follow up with your Primary Care Provider or return to clinic if symptoms do not improve within 3-5 days. If you develop severe symptoms such as shortness of breath, repeated vomiting, coughing up blood, or chest pain you should go to the emergency room or call 911 03/09/2025 Diastolic heart failure (ICD-10 - I50.30) 12/10/2024 Aortic stenosis (ICD-10 - I35.0) 12/10/2024 [...] IRON, TOTAL 02/27/2024 LIPID PANEL (CHOL/TRIG/HDL/LDL) 02/27/20 LIPID PANEL (CHOL/TRIG/HDL/LDL) 03/09/20 25 CBC WITH [...] BONE DENSITY 06/03/2024 THYROID PANEL (T4/TSH/FREE T3) THYROID PANEL (T4/TSH/FREE T3) THYROID PANEL (T4/TSH/FREE T3) 4 PROTIME-INR 12/10/2024 CMP (COMP MET LAMA) w/eGFR CKD-EPI 2024 CBC WITH DIFF 03/09/2025 Next Appt Details Provider Name:Regino Tierney, 11:00:00 AM, [address] [facility], [place], [address], Insurance Providers Payer Name Payer Address Payer Phone Subscriber Number Group Number Insured Name Patient Relationship to Insured Coverage Start Date Coverage End Date App Press [facility] [employer] [address] [address] [place] [address] [id number] Faby Juarez Self - patient is the insured Medications Administered Medication Instructions Date of Administration Dosage Notes Dexamethasone, 4mg/mL 08/16/2025 12 mg Medical (General) History Medical History History ICD [...] Diverticular disease K57.90 Surgical History Surgery Date(Month/Year) [facility] Heart Cath- Dr. Price 10/22/2023 Bilateral Foot surgery Eye surgery
--- OUTSIDE RECORDS SUMMARY | 2025-08-16 21:05 | XMS_ITS | Encounter Summary ---
Author Organization [facility] Address [address] [place] [address] Care Team Providers Care Cable Operator Name Role Phone Yoel Rizvi MD Primary Care Provider [phone] Reason for Visit * Reason Comments Med Refill Encounter Details Date Type Department Care Team (Late st Contact Info) Description 05/15/2023 Refill [facility] [address] [place] [id number] Mitch Jc MD [address] [facility] [place] [address] Essential hypertension; Edema, unspecified type [...] Description 08/27/2025 1:00 PM EDT Office Visit [facility] [address] [place] [address] Mitch Jc MD [address] [facility] [place] [address] documented as of this encounter Visit Diagnoses Diagnosis Essential hypertension Unspecified essential hypertension Edema, unspecified type documented in this encounter Care Teams Cable Operator Relationship Specialty Start Date End Date Yoel Rizvi MD [address] [place] [address] PCP - General 10/22/22 documented as of this encounter
--- OUTSIDE RECORDS SUMMARY | 2025-08-16 21:05 | XMS_ITS | Encounter Summary ---
Author Organization [facility] Address [address] [place] [address] Care Team Providers Care Commercial Designer Name Role Phone Yoel Rizvi MD Primary Care Provider [phone] Encounter Details Date Type Department Care Team (Late st Contact Info) Description 08/03/2025 Orders Only [address] [address] Ericka Grover MA Longstanding persistent [...] Description 08/27/2025 1:00 PM EDT Office Visit [facility] [address] [place] [address] Mitch Jc MD [address] [facility] [place] [address] Scheduled Orders Name Type Priority Associated Diagnoses Orde r Schedule CBC and differential Lab Routine Longstanding persistent atrial fibrillation (CMS/HCC) Expected: 08/03/2025 (Approximate), Expires: 08/03/2026 documented as of this encounter Visit Diagnoses Diagnosis Longstanding persistent atrial fibrillation (CMS/HCC)- Primary documented in this encounter Care Teams Commercial Designer Relationship Specialty Start Date End Date Yoel Rizvi MD [address] [facility] [address] [address] PCP - General 10/22/22 documented as of this encounter
--- OUTSIDE RECORDS SUMMARY | 2025-08-16 21:05 | XMS_ITS | Encounter Summary ---
Author Organization [facility] Address [address] [place] [address] Care Team Providers Care Scrap Iron Cutter Name Role Phone Yoel Rizvi MD Primary Care Provider [phone] Encounter Details Date Type Department Care Team (Late st Contact Info) Description 08/04/2025 Telephone [facility] [address] [place] [address] Mariola Pascual MA Social History [...] Description 08/27/2025 1:00 PM EDT Office Visit [facility] [address] [place] [id number] Mitch Jc MD [address] [facility] [address] [facility] [place] [address] documented as of this encounter Visit Diagnoses Not on filedocumented in this encounter Care Teams Scrap Iron Cutter Relationship Specialty Start Date End Date Yoel Rizvi MD [address] [facility] [address] [address] PCP - General 10/22/22 documented as of this encounter
--- NOTE | 2025-08-16 21:16 | ED.SOB1 ---
HPI - SOB/Dyspnea General Chief Complaint: Shortness of Breath/Dyspnea Stated Complaint: Shortness of Breath Time Seen by Provider: 08/16/25 21:11 Source: patient Mode of arrival: Wheelchair History of Present Illness HPI Narrative: short of breath over the past 4-5 days. seen by her PCP today and pulse ox 83% RA. Given injection of steroid and prescribed antibiotic. At home she continued to feel short of breath especially with exertion and came to the ER. Pulse ox on arrival 77% RA. placed on 2L NC 02 and saturation 97%. Denies chest or abdominla pain. No nausea or vomiting Related Data Home Medications ?Medication ?Instructions ?Recorded ?Confirmed albuterol sulfate 90 mcg/actuation 1 inh inhalation Q4H PRN shortness 08/17/25 08/17/25 aerosol inhaler of breath or wheezing alendronate 70 mg tablet 70 mg PO DAILY 08/17/25 08/17/25 allopurinol 100 mg tablet 100 mg PO DAILY 08/17/25 08/17/25 alprazolam 0.25 mg tablet 0.25 mg PO DAILY PRN anxiety 08/17/25 08/17/25 amlodipine 10 mg tablet 10 mg PO DAILY 08/17/25 08/17/25 amoxicillin 875 mg-potassium 1 tab PO Q12H 08/17/25 08/17/25 clavulanate 125 mg tablet aspirin 81 mg tablet,delayed 81 mg PO DAILY 08/17/25 08/17/25 release (Adult Aspirin Regimen) citalopram 40 mg tablet 40 mg PO DAILY 08/17/25 08/17/25 furosemide 40 mg tablet 80 mg PO DAILY 08/17/25 08/17/25 furosemide 80 mg tablet 80 mg PO DAILY 08/17/25 08/17/25 lansoprazole 30 mg capsule,delayed 30 mg PO DAILY 08/17/25 08/17/25 release macitentan 10 mg tablet (Opsumit) 10 mg PO DAILY 08/17/25 08/17/25 metoprolol succinate 25 mg 12.5 mg PO DAILY 08/17/25 08/17/25 tablet,extended release 24 hr potassium chloride 10 mEq 10 meq PO DAILY 08/17/25 08/17/25 tablet,extended release pravastatin 20 mg tablet 20 mg PO DAILY 08/17/25 08/17/25 sacubitril 24 mg-valsartan 26 mg 1 tab PO TID 08/17/25 08/17/25 tablet (Entresto) sildenafil (pulm.hypertension) 20 20 mg PO Q24H 08/17/25 08/17/25 mg tablet warfarin 5 mg tablet 5 mg PO DAILY 08/17/25 08/17/25 Allergies Allergy/AdvReac Type Severity Reaction Status Date / Time No Known Drug Allergies Allergy Verified 08/16/25 20:58 Review of Systems ROS Status of ROS 10 or more systems reviewed and unremarkable except as noted in history and below [facility] Medical History (Updated 08/17/25 @ 06:32 by Sanya Salas MD) Atrial fibrillation ?I48.91 - Unspecified atrial fibrillation (ICD-10) Gout ?M10.9 - Gout, unspecified (ICD-10) Pulmonary HTN ?I27.20 - Pulmonary hypertension, unspecified (ICD-10) Hypercholesterolemia ?E78.00 - Pure hypercholesterolemia, unspecified (ICD-10) Dysrhythmia ?I49.9 - Cardiac arrhythmia, unspecified (ICD-10) HTN (hypertension) ?I10 - Essential (primary) hypertension (ICD-10) CHF (congestive heart failure) ?I50.9 - Heart failure, unspecified (ICD-10) Family History (Updated 08/17/25 @ 01:03 by Susan Hamm) Other Family history of CHF (congestive heart failure) Family history of cancer Family history of hypertension Family history of myocardial infarction Social History (Updated 08/17/25 @ 01:04 by Susan Hamm) Within the past year, how often did you have a drink containing alcohol: never Score interpretation: A score less than 3 is consistent with normal alcohol consumption. Smoking status: Never smoker Non-prescribed substance use: denies use Previous occupational history: retired Highest level of school completed/degree received: some college, no degree Are you now , , , , never or living with a partner: In a typical week, how many times do you talk on the telephone with family, friends, or neighbors: 3 or more times per week How often do you get together with friends or relatives: 3 or more times per week Little interest or pleasure in doing things: not at all Feeling down, depressed, or hopeless: not at all Feel stressed/tense/nervous/anxious/difficulty sleeping: not at all Do you think of yourself as: straight/heterosexual Gender Identity: female Exam Constitutional Vital Signs, click to edit/add: Last Vital Signs Temp 97.8 F 08/17/25 03:43 Pulse 68 08/17/25 05:52 Resp 18 08/17/25 03:43 BP 127/63 08/17/25 03:43 Pulse Ox 92 L 08/17/25 03:43 O2 Del Method Nasal Cannula 08/17/25 03:43 O2 Flow Rate 4 08/17/25 03:43 Common normals: no apparent distress, average body habitus, oriented x3, no limitations, healthy appearing, alert and well nourished HENMT Common normals: normocephalic and head/scalp atraumatic Eye Common normals: EOMs intact bilaterally and conjunctivae normal Respiratory Common normals: normal respiratory effort, no retractions and no use of accessory muscles Other: few bilat rhonchi Cardio Common normals: regular rate, regular rhythm, S1 normal heart sound and S2 normal heart sound GI Common normals: Normal to inspection, nondistended, normoactive bowel sounds present, soft to palpation and non-tender Extremity Common normals: normal to inspection and full ROM Neuro Common normals: oriented x3, CN's II-XII intact bilaterally, moves all extremities and no focal motor deficits Psych Appearance: grossly normal Course Vital Signs Vital signs: Vital Signs Temperature 98.7 F 08/16/25 20:52 Pulse Rate 97 H 08/16/25 20:52 Respiratory Rate 28 H 08/16/25 20:52 Blood Pressure 141/78 08/16/25 20:52 Pulse Oximetry 77 L 08/16/25 20:52 Oxygen Delivery Method Room Air 08/16/25 20:52 Temperature 97.8 F 08/17/25 03:43 Pulse Rate 68 08/17/25 05:52 Respiratory Rate 18 08/17/25 03:43 Blood Pressure 127/63 08/17/25 03:43 Pulse Oximetry 92 L 08/17/25 03:43 Oxygen Delivery Method Nasal Cannula 08/17/25 03:43 Oxygen Delivery Flow Rate 4 08/17/25 03:43 MDM - SOB/Dyspnea MDM Narrative Medical decision making narrative: presents complaining of shortness of breath with exertion over past 4-5 days. Denies chest pain. Family states low grade fever at home. afebrile here. No nausea or vomiting. states she takes 80mg water pill daily. labs confirm CKG and her BNP is elevated and cxray with pulmonary edema. Patient given dose of lasix 80mg IVP. discussed with hospitalist Dr Pino and patient accepted for admission Lab Data Labs: Lab Results 08/16/25 Range/Units 21:07 WBC 5.8 (4.0-11.0) 10^3/uL RBC 3.69 L (4.20-5.40) 10^6/uL Hgb 10.3 L (12.0-16.0) g/dL Hct 32.2 L (36.0-48.0) % MCV 87.3 (81.0-99.0) fL MCH 27.9 (26.7-34.0) pg MCHC 32.0 (29.9-35.2) g/dL RDW 18.4 H (11.0-15.0) % Plt Count 201 (150-450) 10^3/uL MPV 9.1 L (9.5-13.5) fL Neut % (Auto) 89.8 H (43.0-75.0) % Lymph % (Auto) 7.7 L (20.5-60.0) % [place] % (Auto) 0.9 L (1.7-12.0) % Eos % (Auto) 0.2 L (0.9-7.0) % Baso % (Auto) 0.5 (0.2-2.0) % Neut # (Auto) 5.2 (1.4-6.5) 10^3/uL Lymph # (Auto) 0.5 L (1.2-3.8) 10^3/uL [place] # (Auto) 0.1 L (0.3-0.8) 10^3/uL Eos # (Auto) 0.0 (0.0-0.7) 10^3/uL Baso # (Auto) 0.0 (0.0-0.1) 10^3/uL Abs Immat Gran (auto) 0.05 H (0.00-0.03) 10^3/uL Imm/Tot Granulo (auto) 0.9 H (0.0-0.5) % Sodium 140 (136-145) mmol/L Potassium 4.6 (3.5-5.1) mmol/L Chloride 103 (98-107) mmol/L Carbon Dioxide 23.4 (21.0-32.0) mmol/L Anion Gap 18.2 BUN 44.0 H (7.0-18.0) mg/dL Creatinine 2.35 H (0.55-1.02) mg/dL Est GFR ( Amer) 24 L (>=60 mL/min/1.73m^2) Est GFR (Non-Af Amer) 20 L (>=60 mL/min/1.73m^2) BUN/Creatinine Ratio 18.7 Glucose 207 H (74-106) mg/dL Calcium 8.5 (8.5-10.1) mg/dL Troponin I High Sens 9.2 (4.0-51.3) pg/mL NT-Pro-B Natriuret Pep 4545.0 H* (<=1800.0) pg/mL Discharge Plan Discharge Chief Complaint: Shortness of Breath/Dyspnea Clinical Impression: Heart failure Patient Disposition: Admitted as Observation Time of Disposition Decision: 00:45 Discharge Date/Time: 08/17/25 00:50
--- NOTE | 2025-08-16 21:24 | XR_ITS ---
[facility] [place] [id number] Patient Name: FABY JUAREZ MRN: [id number] date: 1940 Sex: F Assigned Patient Location: ER Current Patient Location: ER Accession/Order Number: [id number] Exam Date: 08/16/2025 21:58 Report Date: 08/16/2025 22:34 At the request of: NETO OCHOA MD Procedure: XR chest 2V PA AND LATERAL CHEST: CLINICAL HISTORY: short of breath COMPARISON: 12/20/2021 FINDINGS: Enlarged cardiomediastinal silhouette with mild perihilar pulmonary vascular congestion. Interstitial pulmonary edema identified. Trace right-sided and small left-sided effusion. XR/XR chest 2V IMPRESSION: CHF FINDINGS, SMALL EFFUSIONS GREATEST LEFT. Impression dictated by: Arnulfo Randhawa M.D. 08/16/2025 10:34 PM Dictation Location: [place] [id number] Electronically authenticated by: [id number] Y Date: 08/16/2025 22:34
[2025-08-16 21:28] LABS: Hematocrit 32.2 % (36.0-48.0); Hemoglobin 10.3 g/dL (12.0-16.0); Immature Granulocytes Abs Auto 0.05 10^3/uL (0.00-0.03); Immature Granulocytes Pct Auto 0.9 % (0.0-0.5); Lymphocytes Absolute Auto 0.5 10^3/uL (1.2-3.8); Mean Corpuscular HGB Conc 32.0 g/dL (29.9-35.2); Mean Corpuscular Hemoglobin 27.9 pg (26.7-34.0); Mean Corpuscular Volume 87.3 fL (81.0-99.0); Platelet Count 201 10^3/uL (150-450); Red Blood Count 3.69 10^6/uL (4.20-5.40); White Blood Count 5.8 10^3/uL (4.0-11.0)
[2025-08-16 21:51] LABS: Anion Gap 18.2; Blood Urea Nitrogen 44.0 mg/dL (7.0-18.0); Calcium 8.5 mg/dL (8.5-10.1); Carbon Dioxide 23.4 mmol/L (21.0-32.0); Chloride 103 mmol/L (98-107); Estimated GFR (African America 24 (>=60 mL/min/1.73m^2); Estimated GFR (Non-African Ame 20 (>=60 mL/min/1.73m^2); Glucose 207 mg/dL (74-106); Potassium 4.6 mmol/L (3.5-5.1); Sodium 140 mmol/L (136-145)
[2025-08-16 21:52] LABS: NT Pro B Type Natriuretic Pept 4545.0 pg/mL (<=1800.0)
--- NOTE | 2025-08-16 21:58 | ECG_ITS ---
[facility] Test Date: 2025-08-16 Pat Name: FABY JUAREZ Department: Room: - Gender: Female Clerk Operator: : 1940 Requested By: [id number] Order Number: [id number] Reading MD: JENN PRADO M.D. Measurements Intervals [place] Rate: 83 P: -[id number] NH: -[id number] QRS: 131 QRSD: 88 T: 90 QT: 358 QTc: 398 Interpretive Statements 1210 Atrial fibrillation 3433 Septal myocardial infarction, probably old 5120 Possible right ventricular hypertrophy 9150 abnormal ECG No previous ECG available for comparison Electronically Signed On 08-17-2025 9:37:06 EDT by JENN PRADO M.D.
[2025-08-16] MEDS: FUROSEMIDE 40 MG/4 ML VIAL 80 MG IVP (22:31)
[2025-08-17] VITALS (20 sets, daily range): BP systolic 120–151; BP diastolic 57–70; PULSE 66–83; TEMP 36.6–37; O2SAT 90–95; BMI 27.9
--- OUTSIDE RECORDS SUMMARY | 2025-08-17 01:19 | XMS_ITS | CCD ---
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 Thanks. [facility] Office Visiton 06-28-2025 Follow-up visit [id number] Inez Juarez 1940 F Date Provider Department Center 06/28/2025 Rema-JENN PRADO BARBRA Acuña Family History Problem Relation Age of Onset Hypertension Mother Coronary artery disease Father Hypertension Father Family Status - Relation Status Age at Mother Father Level of Service:39567 [place] OFFICE/OUTPATIENT ESTABLISHED MOD MDM 30 MIN [facility] Orders Onlyon 06-10-2025 Orders Only [id number] Inez Juarez 1940 Date Provider Department Center 06/10/2025 [id number], HISTORICAL BARBRA Acuña Family History Problem Relation Age of Onset Hypertension Mother Coronary artery disease Father Hypertension Father Family Status - Relation Status Age at Mother Father [facility] BNPon 03-22-2023 Natriuretic peptide B (Bld) [Mass/Vol] 1423.0 pg/mL Normal <=1,800.0 [facility] Comment on above: Performed By: #### B INSULATION BOARD CALENDER OPERATOR, CMP, TSH, LIPID #### [facility] [address] [address] [address] Reji Thomas CBC AUTO DIFFon 03-22-2023 BASO # 0.1 103/ul Normal 0.0-0.1 [facility] Comment on above: Performed By: #### B MP #### [facility] [address] [place] [address] Dr. Reji Thomas Basophils/100 WBC (Bld) 1.0 % Normal 0.2-2.0 [facility] Comment on above: Performed By: #### B MP #### [facility] [address] [place] [address] Dr. Reji Thomas EO # 0.2 103/ul Normal 0.0-0.7 [facility] Comment on above: Performed By: #### B MP #### [facility] [address] [place] [address] Dr. Reji Thomas Eosinophils/100 WBC (Bld) 3.3 % Normal 0.9-7.0 [facility] Comment on above: Performed By: #### B MP #### [facility] [address] [place] [address] Dr. Reji Thomas Erythrocyte distribution width (RBC) [Ratio] 15.4 % Critically high 11.0-15.0 [facility] Comment on above: Performed By: #### B MP #### [facility] [address] [place] [address] Dr. Reji Thomas Hematocrit (Bld) [Volume fraction] 35.2 % Critically low 36.0-48.0 [facility] Comment on above: Performed By: #### B MP #### [facility] [address] [place] [address] Dr. Reji Thomas Hemoglobin (Bld) [Mass/Vol] 11.4 g/dL Critically low 12.0-16.0 [facility] Comment on above: Performed By: #### B MP #### [facility] [address] [place] [address] Dr. Reji Thomas IG # 0.02 10e3/ul Normal 0.00-0.03 [facility] Comment on above: Performed By: #### B MP #### [facility] [address] [place] [address] Dr. Reji Thomas IG % 0.3 % Normal 0.0-0.5 [facility] Comment on above: Performed By: #### B MP #### [facility] [address] [place] [address] Dr. Reji Thomas LYMPH # 1.4 103/ul Normal 1.2-3.8 [facility] Comment on above: Performed By: #### B MP #### [facility] [address] [place] [address] Dr. Reji Thomas Lymphocytes/100 WBC (Bld) 22.6 % Normal 20.5-60.0 [facility] Comment on above: Performed By: #### B MP #### [facility] [address] [place] [address] Dr. Reji Thomas MANUAL DIFF REQ NO Normal [facility] Comment on above: Performed By: #### B MP #### [facility] [address] [place] [address] Dr. Reji Thomas MCH (RBC) [Entitic mass] 27.0 pg Normal 26.7-34.0 [facility] Comment on above: Performed By: #### B MP #### [facility] [address] [place] [address] Dr. Reji Thomas MCHC (RBC) [Mass/Vol] 32.4 g/dL Normal 29.9-35.2 [facility] Comment on above: Performed By: #### B MP #### [facility] [address] [place] [address] Dr. Reji Thomas MCV (RBC) [Entitic vol] 83.2 fL Normal 81.0-99.0 [facility] Comment on above: Performed By: #### B MP #### [facility] [address] [place] [address] Dr. Reji Thomas MONO # 0.5 103/ul Normal 0.3-0.8 [facility] Comment on above: Performed By: #### B MP #### [facility] [address] [place] [address] Dr. Reji Thomas Monocytes/100 WBC (Bld) 8.5 % Normal 1.7-12.0 [facility] Comment on above: Performed By: #### B MP #### [facility] [address] [place] [address] Dr. Reji Thomas NEUT # 4.0 103/ul Normal 1.4-6.5 [facility] Comment on above: Performed By: #### B MP #### [facility] [address] [place] [address] Dr. Reji Thomas Neutrophils/100 WBC (Bld) 64.3 % Normal 43.0-75.0 [facility] Comment on above: Performed By: #### B MP #### [facility] [address] [place] [address] Dr. Reji Thomas Platelet mean volume (Bld) [Entitic vol] 8.9 fL Critically low 9.5-13.5 [facility] Comment on above: Performed By: #### B MP #### [facility] [address] [place] [address] Dr. Reji Thomas PLT 226 103/ul Normal 150-450 [facility] Comment on above: Performed By: #### B MP #### [facility] [address] [place] [address] Dr. Reji Thomas RBC 4.23 106/ul Normal 4.20-5.40 [facility] Comment on above: Performed By: #### B MP #### [facility] [address] [place] [address] Dr. Reji Thomas WBC 6.3 103/ul Normal 4.0-11.0 [facility] Comment on above: Performed By: #### B MP #### [facility] [address] [place] [address] Dr. Reji Thomas FREE THYROXINE INDEX T7on FTI 2.40 Normal 1.30-4.50 [facility] Comment on above: Performed By: #### B INSULATION BOARD CALENDER OPERATOR, CMP, TSH, LIPID #### [facility] [address] [address] [address] Reji Thomas T3U 32.0 % Normal 30.0-39.0 [facility] Comment on above: Performed By: #### B INSULATION BOARD CALENDER OPERATOR, CMP, TSH, LIPID #### [facility] [address] [address] [address] Reji Thomas T4 [Mass/Vol] 7.50 ug/dL Normal 4.80-13.90 [facility] Comment on above: Performed By: #### B INSULATION BOARD CALENDER OPERATOR, CMP, TSH, LIPID #### [facility] [address] [address] [address] Reji Thomas GLYCOHEMOGLOBIN A1Con 2022 ADA RECOMMENDATION SEE BELOW Normal [facility] Comment on above: Result Comment: ADA RECOMMENDED LIMIT 4.0 - 6.0 ADA THERAPEUTIC TARGET < 7.0 ACTION SUGGESTED > 7.0 Performed By: #### B INSULATION BOARD CALENDER OPERATOR, CMP, TSH, LIPID #### [facility] [address] [address] [address] Reji Thomas Glucose [Mass/Vol] 97 mg/dL Normal [facility] Comment on above: Performed By: #### B INSULATION BOARD CALENDER OPERATOR, CMP, TSH, LIPID #### [facility] [address] [address] [address] Reji Thomas HbA1c (Bld) [Mass fraction] 5.0 % Normal 4.5-6.2 [facility] Comment on above: Performed By: #### B INSULATION BOARD CALENDER OPERATOR, CMP, TSH, LIPID #### [facility] [address] [address] [address] Reji Thomas IRONon 03-22-2023 Iron [Mass/Vol] 47.0 ug/dL Critically low 50.0-170.0 [facility] Comment on above: Performed By: #### B INSULATION BOARD CALENDER OPERATOR, CMP, TSH, LIPID #### [facility] [address] [address] [address] eRji Thomas LIPID PROFILEon 03-22-2023 CHOL-HDL RATIO NORM SEE BELOW Normal [facility] Comment on above: Result Comment: 3.3 - 4.4 LOW RISK 4.4 - 7.1 AVERAGE RISK 7.1 - 11.0 MODERATE RISK >11.0 HIGH RISK Performed By: #### M G, TSH, LIPID, T7, CMP, BNP #### [facility] [address] [address] [address] Reji Thomas Cholesterol [Mass/Vol] 188 mg/dL Normal <=200 [facility] Comment on above: Performed By: #### M G, TSH, LIPID, T7, CMP, BNP #### [facility] [address] [address] [address] Reji Thomas Cholesterol in HDL [Mass/Vol] 53 mg/dL Normal 40-60 [facility] Comment on above: Performed By: #### M G, TSH, LIPID, T7, CMP, BNP #### [facility] [address] [address] [address] Reji Thomas Cholesterol in LDL [Mass/Vol] 111.6 mg/dL Normal [facility] Comment on above: Performed By: #### M G, TSH, LIPID, T7, CMP, BNP #### [facility] [address] [address] [address] Reji Thomas Cholesterol.total/Ch olesterol in HDL [Mass ratio] 3.5 {ratio} Normal [facility] Comment on above: Performed By: #### M G, TSH, LIPID, T7, CMP, BNP #### [facility] [address] [address] [address] Reji Thomas HDL NORMAL > or = 60 mg/dl - LOW CARDIOVASCULAR RISK <40 mg/dl - HIGH CARDIOVASCULAR RISK Normal [facility] Comment on above: Performed By: #### M G, TSH, LIPID, T7, CMP, BNP #### [facility] [address] [place] [address] Dr. Reji Thomas LDL CALC NORMAL SEE BELOW Normal [facility] Comment on above: Result Comment: <100 mg/dl OPTIMAL 100 - 129 mg/dl NEAR OR ABOVE OPTIMAL 130 - 159 mg/dl BORDERLINE HIGH 160 - 189 mg/dl HIGH >190 mg/dl VERY HIGH Performed By: #### M G, TSH, LIPID, T7, CMP, BNP #### [facility] [address] [place] [address] Dr. Reji Thomas Triglyceride [Mass/Vol] 117 mg/dL Normal <=150 [facility] Comment on above: Performed By: #### M G, TSH, LIPID, T7, CMP, BNP #### [facility] [address] [address] [address] Reji Thomas VLDL CALC 23.4 mg/dL Normal [facility] Comment on above: Performed By: #### M G, TSH, LIPID, T7, CMP, BNP #### [facility] [address] [place] [address] Dr. Reji Thomas MAGNESIUMon 03-22-2023 Magnesium [Mass/Vol] 2.4 mg/dL Normal 1.8-2.4 [facility] Comment on above: Performed By: #### B INSULATION BOARD CALENDER OPERATOR, CMP, TSH, LIPID #### [facility] [address] [place] [address] Dr. Reji Thomas PROF 14(COMP METB)on 023 Albumin [Mass/Vol] 3.4 g/dL Normal 3.4-5.0 [facility] Comment on above: Performed By: #### M G, TSH, LIPID, T7, CMP, BNP #### [facility] [address] [place] [address] Dr. Reji Thomas Albumin/Globulin [Mass ratio] 0.8 {ratio} Normal [facility] Comment on above: Performed By: #### M G, TSH, LIPID, T7, CMP, BNP #### [facility] [address] [address] [address] Reji Thomas ALP [Catalytic activity/Vol] 61 U/L Normal 46-116 [facility] Comment on above: Performed By: #### M G, TSH, LIPID, T7, CMP, BNP #### [facility] [address] [address] [address] Reji Thomas ALT [Catalytic activity/Vol] 15 U/L Normal 14-59 [facility] Comment on above: Performed By: #### M G, TSH, LIPID, T7, CMP, BNP #### [facility] [address] [place] [address] Dr. Reji Thomas Anion gap [Moles/Vol] 13.1 mmol/L Normal [facility] Comment on above: Performed By: #### M G, TSH, LIPID, T7, CMP, BNP #### [facility] [address] [place] [address] Dr. Reji Thomas AST [Catalytic activity/Vol] 13 U/L Critically low 15-37 [facility] Comment on above: Performed By: #### M G, TSH, LIPID, T7, CMP, BNP #### [facility] [address] [place] [address] Dr. Reji Thomas Bilirubin [Mass/Vol] 0.4 mg/dL Normal 0.2-1.0 [facility] Comment on above: Performed By: #### M G, TSH, LIPID, T7, CMP, BNP #### [facility] [address] [place] [address] Dr. Reji Thomas Calcium [Mass/Vol] 8.5 mg/dL Normal 8.5-10.1 [facility] Comment on above: Performed By: #### M G, TSH, LIPID, T7, CMP, BNP #### [facility] [address] [place] [address] Dr. Reji Thomas Chloride [Moles/Vol] 106 mmol/L Normal 98-107 [facility] Comment on above: Performed By: #### M G, TSH, LIPID, T7, CMP, BNP #### [facility] [address] [place] [address] Dr. Reji Thomas CO2 [Moles/Vol] 27.6 mmol/L Normal 21.0-32.0 [facility] Comment on above: Performed By: #### M G, TSH, LIPID, T7, CMP, BNP #### [facility] [address] [place] [address] Dr. Reji Thomas Creatinine [Mass/Vol] 2.32 mg/dL Critically high 0.55-1.02 [facility] Comment on above: Performed By: #### M G, TSH, LIPID, T7, CMP, BNP #### [facility] [address] [place] [address] Dr. Reji Thomas EGFR-AF PALESTINIAN 24 mL/min/1.73m2 Critically low >=60 [facility] Comment on above: Performed By: #### M G, TSH, LIPID, T7, CMP, BNP #### [facility] [address] [place] [address] Dr. Reji Thomas EGFR-NON AF PALESTINIAN 20 mL/min/1.73m2 Critically low >=60 [facility] Comment on above: Performed By: #### M G, TSH, LIPID, T7, CMP, BNP #### [facility] [address] [place] [address] Dr. Reji Thomas Globulin (S) [Mass/Vol] 4.3 g/dL Normal [facility] Comment on above: Performed By: #### M G, TSH, LIPID, T7, CMP, BNP #### [facility] [address] [place] [address] Dr. Reji Thomas Glucose [Mass/Vol] 88 mg/dL Normal 74-[address] [facility] Comment on above: Performed By: #### M G, TSH, LIPID, T7, CMP, BNP #### [facility] [address] [place] [address] Dr. Reji Thomas Potassium [Moles/Vol] 4.7 mmol/L Normal 3.5-5.1 [facility] Comment on above: Performed By: #### M G, TSH, LIPID, T7, CMP, BNP #### [facility] [address] [place] [address] Dr. Reji Thomas Protein [Mass/Vol] 7.7 g/dL Normal 6.4-8.[address] [facility] Comment on above: Performed By: #### M G, TSH, LIPID, T7, CMP, BNP #### [facility] [address] [place] [address] Dr. Reji Thomas Sodium [Moles/Vol] 142 mmol/L Normal 136-[address] [facility] Comment on above: Performed By: #### M G, TSH, LIPID, T7, CMP, BNP #### [facility] [address] [address] [address] Reji Thomas Urea nitrogen [Mass/Vol] 38.0 mg/dL Critically high 7.0-18.0 [facility] Comment on above: Performed By: #### M G, TSH, LIPID, T7, CMP, BNP #### [facility] [address] [address] [address] Reji Thomas Urea nitrogen/Creatinine [Mass ratio] 16.4 mg/mg Normal [facility] Comment on above: Performed By: #### M G, TSH, LIPID, T7, CMP, BNP #### [facility] [address] [place] [address] Dr. Reji Thomas PROTIMEon 03-22-2023 INR Coag (PPP) [Relative time] 1.98 {INR} Normal [facility] Comment on above: Performed By: #### P T #### [facility] [address] [place] [address] Dr. Reji Thomas INR GUIDELINES SEE BELOW Normal [facility] Comment on above: Result Comment: SHY RED INR: 2.0 - 3.0 CONDITIONS NOT LISTED BELOW 2.5 - 3.5 FOR PROSTHETIC HEART VALVE REPLACEMENT 2.5 - 3.5 RECURRENT THROMBOSIS Performed By: #### P T #### [facility] [address] [place] [address] Dr. Reji Thomas PT Coag (PPP) [Time] 20.2 s Critically high 9.0-11.6 [facility] Comment on above: Performed By: #### P T #### [facility] [address] [place] [address] Dr. Reji Thomas TSHon 03-22-2023 TSH 2.265 uIU/mL Normal 0.358-3.740 [facility] Comment on above: Performed By: #### B INSULATION BOARD CALENDER OPERATOR, CMP, TSH, LIPID #### [facility] [address] [place] [address] Dr. Reji Thomas VITAMIN D 25 OHon 03-22-2023 VIT D 25-OH 53.1 ng/mL Normal [facility] Comment on above: Performed By: #### B MP #### [facility] [address] [place] [address] Dr. Reji Thomas VIT D RANGES SEE BELOW Normal [facility] Comment on above: Result Comment: <20 ng/mL Vit D deficient 20 - <30 ng/mL Vit D insufficient 30 - 100 ng/mL Vit D sufficient >100 ng/mL Potential Toxicity Performed By: #### B MP #### [facility] [address] [place] [address] Dr. Reji Thomas PROTIMEon 02-22-2023 INR Coag (PPP) [Relative time] 2.22 {INR} Normal [facility] Comment on above: Performed By: #### B INSULATION BOARD CALENDER OPERATOR, CMP, TSH, LIPID #### [facility] [address] [place] [address] Dr. Reji Thomas INR GUIDELINES SEE BELOW Normal [facility] Comment on above: Result Comment: SHY RED INR: 2.0 - 3.0 CONDITIONS NOT LISTED BELOW 2.5 - 3.5 FOR PROSTHETIC HEART VALVE REPLACEMENT 2.5 - 3.5 RECURRENT THROMBOSIS Performed By: #### B INSULATION BOARD CALENDER OPERATOR, CMP, TSH, LIPID #### [facility] [address] [place] [address] Dr. Reji Thomas PT Coag (PPP) [Time] 22.5 s Critically high 9.0-11.6 [facility] Comment on above: Performed By: #### B INSULATION BOARD CALENDER OPERATOR, CMP, TSH, LIPID #### [facility] [address] [place] [address] Dr. Reji Thomas PROTIMEon 01-03-2023 INR Coag (PPP) [Relative time] 2.53 {INR} Normal [facility] Comment on above: Performed By: #### B MP #### [facility] [address] [place] [address] Dr. Reji Thomas INR GUIDELINES SEE BELOW Normal [facility] Comment on above: Result Comment: SHY RED INR: 2.0 - 3.0 CONDITIONS NOT LISTED BELOW 2.5 - 3.5 FOR PROSTHETIC HEART VALVE REPLACEMENT 2.5 - 3.5 RECURRENT THROMBOSIS Performed By: #### B MP #### [facility] [address] [place] [address] Dr. Reji Thomas PT Coag (PPP) [Time] 25.4 s Critically high 9.0-11.6 [facility] Comment on above: Performed By: #### B MP #### [facility] [address] [place] [address] Dr. Reji Thomas PROTIMEon 11-23-2022 INR Coag (PPP) [Relative time] 1.71 {INR} Normal [facility] Comment on above: Performed By: #### B INSULATION BOARD CALENDER OPERATOR, CMP, TSH, LIPID #### [facility] [address] [place] [address] Dr. Reji Thomas INR GUIDELINES SEE BELOW Normal [facility] Comment on above: Result Comment: SHY RED INR: 2.0 - 3.0 CONDITIONS NOT LISTED BELOW 2.5 - 3.5 FOR PROSTHETIC HEART VALVE REPLACEMENT 2.5 - 3.5 RECURRENT THROMBOSIS Performed By: #### B INSULATION BOARD CALENDER OPERATOR, CMP, TSH, LIPID #### [facility] [address] [place] [address] Dr. Reji Thomas PT Coag (PPP) [Time] 17.6 s Critically high 9.0-11.6 [facility] Comment on above: Performed By: #### B INSULATION BOARD CALENDER OPERATOR, CMP, TSH, LIPID #### [facility] [address] [place] [address] Dr. Reji Thomas PROTIMEon 10-10-2022 INR Coag (PPP) [Relative time] 2.52 {INR} Normal [facility] Comment on above: Performed By: #### B INSULATION BOARD CALENDER OPERATOR, CMP, TSH, LIPID #### [facility] [address] [place] [address] Dr. Reji Thomas INR GUIDELINES SEE BELOW Normal [facility] Comment on above: Result Comment: SHY RED INR: 2.0 - 3.0 CONDITIONS NOT LISTED BELOW 2.5 - 3.5 FOR PROSTHETIC HEART VALVE REPLACEMENT 2.5 - 3.5 RECURRENT THROMBOSIS Performed By: #### B INSULATION BOARD CALENDER OPERATOR, CMP, TSH, LIPID #### [facility] [address] [place] [address] Dr. Reji Thomas PT Coag (PPP) [Time] 25.6 s Critically high 9.0-11.6 [facility] Comment on above: Performed By: #### B INSULATION BOARD CALENDER OPERATOR, CMP, TSH, LIPID #### [facility] [address] [place] [address] Dr. Reji Thomas PROTIMEon 09-05-2022 INR Coag (PPP) [Relative time] 2.03 {INR} Normal [facility] Comment on above: Performed By: #### B INSULATION BOARD CALENDER OPERATOR, CMP, TSH, LIPID #### [facility] [address] [place] [address] Dr. Reji Thomas INR GUIDELINES SEE BELOW Normal [facility] Comment on above: Result Comment: SHY RED INR: 2.0 - 3.0 CONDITIONS NOT LISTED BELOW 2.5 - 3.5 FOR PROSTHETIC HEART VALVE REPLACEMENT 2.5 - 3.5 RECURRENT THROMBOSIS Performed By: #### B INSULATION BOARD CALENDER OPERATOR, CMP, TSH, LIPID #### [facility] [address] [place] [address] Dr. Reji Thomas PT Coag (PPP) [Time] 20.9 s Critically high 9.0-11.6 [facility] Comment on above: Performed By: #### B INSULATION BOARD CALENDER OPERATOR, CMP, TSH, LIPID #### [facility] [address] [place] [address] Dr. Reji Thomas BNPon 08-10-2022 Natriuretic peptide B (Bld) [Mass/Vol] 1162.0 pg/mL Normal <=1,800.0 [facility] Comment on above: Performed By: #### B MP, BNP #### [facility] [address] [place] [address] Dr. Reji Thomas PROF CHEM 8 (BAS METB)on Anion gap [Moles/Vol] 11.3 mmol/L Normal [facility] Comment on above: Performed By: #### B MP, BNP #### [facility] [address] [place] [address] Dr. Reji Thomas Calcium [Mass/Vol] 8.9 mg/dL Normal 8.5-10.1 [facility] Comment on above: Performed By: #### B MP, BNP #### [facility] [address] [address] [address] Reji Thomas Chloride [Moles/Vol] 103 mmol/L Normal 98-107 [facility] Comment on above: Performed By: #### B MP, BNP #### [facility] [address] [address] [address] Reji Thomas CO2 [Moles/Vol] 28.2 mmol/L Normal 21.0-32.0 [facility] Comment on above: Performed By: #### B MP, BNP #### [facility] [address] [place] [address] Dr. Reji Thomas Creatinine [Mass/Vol] 2.07 mg/dL Critically high 0.55-1.02 [facility] Comment on above: Performed By: #### B MP, BNP #### [facility] [address] [place] [address] Dr. Reji Thomas EGFR-AF PALESTINIAN 28 mL/min/1.73m2 Critically low >=60 [facility] Comment on above: Performed By: #### B MP, BNP #### [facility] [address] [place] [address] Dr. Reji Thomas EGFR-NON AF PALESTINIAN 23 mL/min/1.73m2 Critically low >=60 [facility] Comment on above: Performed By: #### B MP, BNP #### [facility] [address] [place] [address] Dr. Reji Thomas Glucose [Mass/Vol] 88 mg/dL Normal 74-106 [facility] Comment on above: Performed By: #### B MP, BNP #### [facility] [address] [place] [address] Dr. Reji Thomas Potassium [Moles/Vol] 4.5 mmol/L Normal 3.5-5.1 [facility] Comment on above: Performed By: #### B MP, BNP #### [facility] [address] [place] [address] Dr. Reji Thomas Sodium [Moles/Vol] 138 mmol/L Normal 136-[address] [facility] Comment on above: Performed By: #### B MP, BNP #### [facility] [address] [place] [address] Dr. Reji Thomas Urea nitrogen [Mass/Vol] 35.0 mg/dL Critically high 7.0-18.0 [facility] Comment on above: Performed By: #### B MP, BNP #### [facility] [address] [place] [address] Dr. Reji Thomas Urea nitrogen/Creatinine [Mass ratio] 16.9 mg/mg Normal [facility] Comment on above: Performed By: #### B MP, BNP #### [facility] [address] [place] [address] Dr. Reji Thomas PROTIMEon 08-09-2022 INR Coag (PPP) [Relative time] 2.04 {INR} Normal [facility] Comment on above: Performed By: #### B INSULATION BOARD CALENDER OPERATOR, CMP, TSH, LIPID #### [facility] [address] [place] [address] Dr. Reji Thomas INR GUIDELINES SEE BELOW Normal [facility] Comment on above: Result Comment: SHY RED INR: 2.0 - 3.0 CONDITIONS NOT LISTED BELOW 2.5 - 3.5 FOR PROSTHETIC HEART VALVE REPLACEMENT 2.5 - 3.5 RECURRENT THROMBOSIS Performed By: #### B INSULATION BOARD CALENDER OPERATOR, CMP, TSH, LIPID #### [facility] [address] [place] [address] Dr. Reji Thomas PT Coag (PPP) [Time] 21.0 s Critically high 9.0-11.6 [facility] Comment on above: Performed By: #### B INSULATION BOARD CALENDER OPERATOR, CMP, TSH, LIPID #### [facility] [address] [place] [address] Dr. Reji Thomas BNPon 07-09-2022 Natriuretic peptide B (Bld) [Mass/Vol] 2085.0 pg/mL Critically high <=1,800.0 [facility] Comment on above: Result Comment: LEX ACOSTA CALLED TO OFFICE ON 07-10-22 AT 0850 BY AR Performed By: #### B INSULATION BOARD CALENDER OPERATOR, CMP, TSH, LIPID #### [facility] [address] [place] [address] Dr. Reji Thomas PROF CHEM 8 (BAS METB)on Anion gap [Moles/Vol] 13.7 mmol/L Normal [facility] Comment on above: Performed By: #### B INSULATION BOARD CALENDER OPERATOR, CMP, TSH, LIPID #### [facility] [address] [place] [address] Dr. Reji Thomas Calcium [Mass/Vol] 8.3 mg/dL Critically low 8.5-10.1 Th e [facility] Comment on above: Performed By: #### B INSULATION BOARD CALENDER OPERATOR, CMP, TSH, LIPID #### [facility] [address] [place] [address] Dr. Reji Thomas Chloride [Moles/Vol] 104 mmol/L Normal 98-107 [facility] Comment on above: Performed By: #### B INSULATION BOARD CALENDER OPERATOR, CMP, TSH, LIPID #### [facility] [address] [place] [address] Dr. Reji Thomas CO2 [Moles/Vol] 26.6 mmol/L Normal 21.0-32.0 [facility] Comment on above: Performed By: #### B INSULATION BOARD CALENDER OPERATOR, CMP, TSH, LIPID #### [facility] [address] [place] [address] Dr. Reji Thomas Creatinine [Mass/Vol] 1.98 mg/dL Critically high 0.55-1.02 [facility] Comment on above: Performed By: #### B INSULATION BOARD CALENDER OPERATOR, CMP, TSH, LIPID #### [facility] [address] [place] [address] Dr. Reji Thomas EGFR-AF PALESTINIAN 29 mL/min/1.73m2 Critically low >=60 [facility] Comment on above: Performed By: #### B INSULATION BOARD CALENDER OPERATOR, CMP, TSH, LIPID #### [facility] [address] [place] [address] Dr. Reji Thomas EGFR-NON AF PALESTINIAN 24 mL/min/1.73m2 Critically low >=60 [facility] Comment on above: Performed By: #### B INSULATION BOARD CALENDER OPERATOR, CMP, TSH, LIPID #### [facility] [address] [address] [address] Reji Thomas Glucose [Mass/Vol] 116 mg/dL Critically high 74-106 [facility] Comment on above: Performed By: #### B INSULATION BOARD CALENDER OPERATOR, CMP, TSH, LIPID #### [facility] [address] [address] [address] Reji Thomas Potassium [Moles/Vol] 4.3 mmol/L Normal 3.5-5.1 [facility] Comment on above: Performed By: #### B INSULATION BOARD CALENDER OPERATOR, CMP, TSH, LIPID #### [facility] [address] [address] [address] Reji Thomas Sodium [Moles/Vol] 140 mmol/L Normal 136-145 [facility] Comment on above: Performed By: #### B INSULATION BOARD CALENDER OPERATOR, CMP, TSH, LIPID #### [facility] [address] [place] [address] Dr. Reji Thoams Urea nitrogen [Mass/Vol] 35.0 mg/dL Critically high 7.0-18.0 [facility] Comment on above: Performed By: #### B INSULATION BOARD CALENDER OPERATOR, CMP, TSH, LIPID #### [facility] [address] [address] [address] Reji Thomas Urea nitrogen/Creatinine [Mass ratio] 17.7 mg/mg Normal [facility] Comment on above: Performed By: #### B INSULATION BOARD CALENDER OPERATOR, CMP, TSH, LIPID #### [facility] [address] [place] [address] Dr. Reji Thomas PROTIMEon 07-09-2022 INR Coag (PPP) [Relative time] 2.99 {INR} Normal [facility] Comment on above: Performed By: #### B INSULATION BOARD CALENDER OPERATOR, CMP, TSH, LIPID #### [facility] [address] [place] [address] Dr. Reji Thomas INR GUIDELINES SEE BELOW Normal [facility] Comment on above: Result Comment: SHY RED INR: 2.0 - 3.0 CONDITIONS NOT LISTED BELOW 2.5 - 3.5 FOR PROSTHETIC HEART VALVE REPLACEMENT 2.5 - 3.5 RECURRENT THROMBOSIS Performed By: #### B INSULATION BOARD CALENDER OPERATOR, CMP, TSH, LIPID #### [facility] [address] [place], [place] [address] Dr. Reji Thomas PT Coag (PPP) [Time] 30.1 s Critically high 9.0-11.6 [facility] Comment on above: Performed By: #### B INSULATION BOARD CALENDER OPERATOR, CMP, TSH, LIPID #### [facility] [address] [address] [address] Reji Thomas US KIDNEYSon 07-06-2022 US [...] by: SIGRID RICHMOND Date: 2022-07-06 13:31 Normal [facility] EVAN Antinuclear Antibodieson 06-19-2022 Antinuclear Abs, IFA Positive Critically abnormal . [facility] Comment on above: Result Comment: Nega tive <1:80 Borderline 1:80 Positive >1:80 Performed By: #### C UU, ADDONUAPLUS #### [facility] [address] [place] [address] #### C3, C4, CH50 #### [facility] , Homogeneous Pattern 1:320 High . [facility] Comment on above: Result Comment: ICAP nomenclature: AC-1 Performed By: #### C MIKY CHOW #### [facility] [address] #### C3, C4, CH50 #### [facility] , Note 1 Normal . [facility] Comment on above: Result Comment: For [...] titers Nucleosomes, Histones Drug-induced SLE Speckled Sm, ENAMEL SHADER, SCL-70, SLE,MCTD,PSS (diffuse form), SS-A/SS-B Sjogrens Nucleolar SCL-70, PM-1/SCL High titers Scleroderma, PM/DM Centromere Centromere PSS (limited form) w/Crest syndrome variable Nuclear Dot [id number] Primary Biliary Cirrhosis Nuclear GP210, Primary Biliary Cirrhosis Membrane eleonora A,B,C Performed at: [address] [address] Tobacco Scrap Sifter: Demarcus Lawton PhD, Phone: [phone] Performed By: #### COURTNEY GOMEZONHEAVENPLUS #### [facility] [address] [place] [address] #### C3, C4, CH50 #### [facility] , Anti-RNPon 06-19-2022 Anti-ENAMEL SHADER 0.4 Normal 0.0-0.9 [facility] Comment on above: Result Comment: Perf ormed at: [facility] [address] [address] Tobacco Scrap Sifter: Demarcus Lawton PhD, Phone: [phone] Performed By: #### COURTNEY GOMEZONUAPLUS #### [facility] [address] [place] [address] #### C3, C4, CH50 #### [facility] , C-Reactive Proteinon 022 C-Reactive Protein 2.0 mg/dL High 0.0-1.0 [facility] Comment on above: Result Comment: PERF ORMED BY: [place] [address] PATHOLOGIST WINE PASTEURIZER RADHA BULLARD M.D. Performed By: #### C UU, ADDONUAPLUS #### [address] #### C3, C4, CH50 #### [facility] , Complement C3on 06-19-2022 Complement C3 167 mg/dL Normal 82-167 [facility] Comment on above: Result Comment: Perf ormed at: [address] [id number] Tobacco Scrap Sifter: Demarcus Lawton PhD, Phone: [phone] Performed By: #### C UU, ADDONUAPLUS #### [address] #### C3, C4, CH50 #### [facility] , Complement C4on 06-19-2022 Complement C4 37 mg/dL Normal 12-38 [facility] Comment on above: Performed By: #### C UU, ADDONUAPLUS #### [address] #### C3, C4, CH50 #### [facility] , Complement Total (CH50)on Complement Total (CH50) >60 Normal >41 [facility] Comment on above: Result Comment: Age [...] out of range values. Performed at: - [address] [id number] Tobacco Scrap Sifter: Demarcus Lawton PhD, Phone: [phone] PERFORMED BY: [place] [address] PATHOLOGIST WINE PASTEURIZER RADHA BULLARD M.D. Performed By: #### C UU, ADDONUAPLUS #### [address] #### C3, C4, CH50 #### [facility] , Complete Blood Count Auto Di ffon 06-19-2022 Basophils (Bld) [#/Vol] 0.1 10*3/uL Normal 0.0-0.2 [facility] Comment on above: Performed By: #### H EPATIC, CBC, ESR, CRP, CREAT, CK #### [place] [address] [place] #### RNA POLYMR, ANTI TH TO, EVAN, U3 ENAMEL SHADER, ANTIR, PM-SCL ABS #### [facility] , Basophils/100 WBC (Bld) 0.9 % Normal . [facility] Comment on above: Performed By: #### H EPATIC, CBC, ESR, CRP, CREAT, CK #### [place] [address] [place] #### RNA POLYMR, ANTI TH TO, EVAN, U3 ENAMEL SHADER, ANTIR, PM-SCL ABS #### [facility] , Eosinophils (Bld) [#/Vol] 0.5 10*3/uL High 0.0-0.45 [facility] Comment on above: Performed By: #### H EPATIC, CBC, ESR, CRP, CREAT, CK #### [place] [address] [place] #### RNA POLYMR, ANTI TH TO, EVAN, U3 ENAMEL SHADER, ANTIR, PM-SCL ABS #### [facility] , Eosinophils/100 WBC (Bld) 8.6 % Normal . [facility] Comment on above: Performed By: #### H EPATIC, CBC, ESR, CRP, CREAT, CK #### [address] [address] [place] #### RNA POLYMR, ANTI TH TO, EVAN, U3 ENAMEL SHADER, ANTIR, PM-SCL ABS #### [facility] , Erythrocyte distribution width (RBC) [Ratio] 19.6 % High 11.9-15.3 [facility] Comment on above: Performed By: #### H EPATIC, CBC, ESR, CRP, CREAT, CK #### [place] [address] [place] #### RNA POLYMR, ANTI TH TO, EVAN, U3 ENAMEL SHADER, ANTIR, PM-SCL ABS #### [facility] , Hematocrit (Bld) [Volume fraction] 33.8 % Low 34.0-46.4 [facility] Comment on above: Performed By: #### H EPATIC, CBC, ESR, CRP, CREAT, CK #### [address] #### RNA POLYMR, ANTI TH TO, EVAN, U3 ENAMEL SHADER, ANTIR, PM-SCL ABS #### [facility] , Hemoglobin (Bld) [Mass/Vol] 10.9 g/dL Low 11.8-15.4 [facility] Comment on above: Performed By: #### H EPATIC, CBC, ESR, CRP, CREAT, CK #### [place] [address] [place] #### RNA POLYMR, ANTI TH TO, EVAN, U3 ENAMEL SHADER, ANTIR, PM-SCL ABS #### [facility] , Lymphocytes (Bld) [#/Vol] 1.1 10*3/uL Normal 1.00-4.8 [facility] Comment on above: Performed By: #### H EPATIC, CBC, ESR, CRP, CREAT, CK #### [place] [address] [place] #### RNA POLYMR, ANTI TH TO, EVAN, U3 ENAMEL SHADER, ANTIR, PM-SCL ABS #### [facility] , Lymphocytes/100 WBC (Bld) 17.8 % Normal . [facility] Comment on above: Performed By: #### H EPATIC, CBC, ESR, CRP, CREAT, CK #### [facility] [address] [place] [address] #### RNA POLYMR, ANTI TH TO, EVAN, U3 ENAMEL SHADER, ANTIR, PM-SCL ABS #### [facility] , MCH (RBC) [Entitic mass] 26.4 pg Normal 24.7-34.3 [facility] Comment on above: Performed By: #### H EPATIC, CBC, ESR, CRP, CREAT, CK #### [facility] [address] [place] [address] #### RNA POLYMR, ANTI TH TO, EVAN, U3 ENAMEL SHADER, ANTIR, PM-SCL ABS #### [facility] , MCV (RBC) [Entitic vol] 81.8 fL Normal 80-100 [facility] Comment on above: Performed By: #### H EPATIC, CBC, ESR, CRP, CREAT, CK #### [address] #### RNA POLYMR, ANTI TH TO, EVAN, U3 ENAMEL SHADER, ANTIR, PM-SCL ABS #### [facility] , Mean Corpuscular HGB Conc 32.3 g/dL Normal 32.0-35.0 [facility] Comment on above: Performed By: #### H EPATIC, CBC, ESR, CRP, CREAT, CK #### [address] #### RNA POLYMR, ANTI TH TO, EVAN, U3 ENAMEL SHADER, ANTIR, PM-SCL ABS #### [facility] , Monocytes (Bld) [#/Vol] 0.4 10*3/uL Normal 0.0-0.8 [facility] Comment on above: Performed By: #### H EPATIC, CBC, ESR, CRP, CREAT, CK #### [place] [address] [place] #### RNA POLYMR, ANTI TH TO, EVAN, U3 ENAMEL SHADER, ANTIR, PM-SCL ABS #### [facility] , Monocytes/100 WBC (Bld) 7.4 % Normal . [facility] Comment on above: Performed By: #### H EPATIC, CBC, ESR, CRP, CREAT, CK #### [address] #### RNA POLYMR, ANTI TH TO, EVAN, U3 ENAMEL SHADER, ANTIR, PM-SCL ABS #### [facility] , Neutrophils (Bld) [#/Vol] 3.9 10*3/uL Normal 1.8-7.7 [facility] Comment on above: Performed By: #### H EPATIC, CBC, ESR, CRP, CREAT, CK #### [address] #### RNA POLYMR, ANTI TH TO, EVAN, U3 ENAMEL SHADER, ANTIR, PM-SCL ABS #### [facility] , Neutrophils/100 WBC (Bld) 65.3 % Normal . [facility] Comment on above: Performed By: #### H EPATIC, CBC, ESR, CRP, CREAT, CK #### [address] #### RNA POLYMR, ANTI TH TO, EVAN, U3 ENAMEL SHADER, ANTIR, PM-SCL ABS #### [facility] , Nucleated RBC/100 WBC (Bld) [Ratio] 0.0 % Normal 0-0.5 [facility] Comment on above: Performed By: #### H EPATIC, CBC, ESR, CRP, CREAT, CK #### [place] [address] [place] #### RNA POLYMR, ANTI TH TO, EVAN, U3 ENAMEL SHADER, ANTIR, PM-SCL ABS #### [facility] , Platelet mean volume (Bld) [Entitic vol] 7.2 fL Normal 6.3-10.7 [facility] Comment on above: Performed By: #### H EPATIC, CBC, ESR, CRP, CREAT, CK #### [facility] [address] [place] [address] [place] #### RNA POLYMR, ANTI TH TO, EVAN, U3 ENAMEL SHADER, ANTIR, PM-SCL ABS #### [facility] , Platelets (Bld) [#/Vol] 237 10*3/uL Normal 150-450 [facility] Comment on above: Performed By: #### H EPATIC, CBC, ESR, CRP, CREAT, CK #### [facility] [address] [place] [address] #### RNA POLYMR, ANTI TH TO, EVAN, U3 ENAMEL SHADER, ANTIR, PM-SCL ABS #### [facility] , RBC (Bld) [#/Vol] 4.14 10*6/uL Normal 3.60-5.00 [facility] Comment on above: Performed By: #### H EPATIC, CBC, ESR, CRP, CREAT, CK #### [facility] [address] [place] [address] [place] #### RNA POLYMR, ANTI TH TO, EVAN, U3 ENAMEL SHADER, ANTIR, PM-SCL ABS #### [facility] , WBC (Bld) [#/Vol] 6.0 10*3/uL Normal 4.5-11.0 [facility] Comment on above: Performed By: #### H EPATIC, CBC, ESR, CRP, CREAT, CK #### [facility] [address] [place] [address] [place] #### RNA POLYMR, ANTI TH TO, EVAN, U3 ENAMEL SHADER, ANTIR, PM-SCL ABS #### [facility] , Creatine Kinaseon 06-19-2022 CK [Catalytic activity/Vol] 38 U/L Normal 22-269 [facility] Comment on above: Result Comment: PERF ORMED BY: [place] [phone] PATHOLOGIST WINE PASTEURIZER RADHA BULLARD M.D. Performed By: #### H EPATIC, CBC, ESR, CRP, CREAT, CK #### [address] #### RNA POLYMR, ANTI TH TO, EVAN, U3 ENAMEL SHADER, ANTIR, PM-SCL ABS #### [facility] , Creatinineon 06-19-2022 Creatinine [Mass/Vol] 2.82 mg/dL High 0.44-1.03 [facility] Comment on above: Performed By: #### H EPATIC, CBC, ESR, CRP, CREAT, CK #### [address] #### RNA POLYMR, ANTI TH TO, EVAN, U3 ENAMEL SHADER, ANTIR, PM-SCL ABS #### [facility] , Estimated GFR ( [place] 19 [facility] Comment on above: Result Comment: GFR estimated reference range: According to KDOQI guidelines, <60 ml/min/1.73m2 is sufficient to diagnose a patient with chronic kidney disease. Performed By: #### H EPATIC, CBC, ESR, CRP, CREAT, CK #### [address] #### RNA POLYMR, ANTI TH TO, EVAN, U3 ENAMEL SHADER, ANTIR, PM-SCL ABS #### [facility] , Estimated GFR (Non- Am 16 [facility] Comment on above: Performed By: #### H EPATIC, CBC, ESR, CRP, CREAT, CK #### [place] [address] [place] #### RNA POLYMR, ANTI TH TO, EVAN, U3 ENAMEL SHADER, ANTIR, PM-SCL ABS #### [facility] , Dipstick and Microscopicon 0 06-19-2022 Appearance (U) Cloudy Critically abnormal Clear [facility] Comment on above: Order Comment: Name Collection Type:: Clean-Voided Midstream Performed By: #### C UU, ADDONUAPLUS #### [facility] [address] [place] [address] #### C3, C4, CH50 #### [facility] , Bacteria,Urine 1+ High None Seen [facility] Comment on above: Order Comment: Name Collection Type:: Clean-Voided Midstream Performed By: #### C UU, ADDONUAPLUS #### [facility] [address] [place] [address] #### C3, C4, CH50 #### [facility] , Bilirubin,Urine Negative Normal Negative [facility] Comment on above: Order Comment: Name Collection Type:: Clean-Voided Midstream Performed By: #### C UU, ADDONUAPLUS #### [facility] [address] [place] [address] #### C3, C4, CH50 #### [facility] , Color (U) Yellow Normal Yellow [facility] Comment on above: Order Comment: Name Collection Type:: Clean-Voided Midstream Performed By: #### C UU, ADDONUAPLUS #### [facility] [address] [place] [address] #### C3, C4, CH50 #### [facility] , Glucose Ql (U) Normal Normal Normal [facility] Comment on above: Order Comment: Name Collection Type:: Clean-Voided Midstream Performed By: #### C UU, ADDONUAPLUS #### [facility] [address] [place] [address] #### C3, C4, CH50 #### [facility] , Hyaline Casts,Urine 1-2 Normal 0-8 [facility] Comment on above: Order Comment: Name Collection Type:: Clean-Voided Midstream Result Comment: PERF ORMED BY: [place] [address] PATHOLOGIST WINE PASTEURIZER RADHA BULLRAD M.D. Performed By: #### C UU, ADDONUAPLUS #### [facility] [address] [place] [address] #### C3, C4, CH50 #### [facility] , Ketones Ql (U) Negative Normal Negative [facility] Comment on above: Order Comment: Name Collection Type:: Clean-Voided Midstream Performed By: #### C UU, ADDONUAPLUS #### [facility] [address] [place] [address] #### C3, C4, CH50 #### [facility] , Leukocyte esterase Test strip Ql (U) 4+ High Negative [facility] Comment on above: Order Comment: Name Collection Type:: Clean-Voided Midstream Performed By: #### C UU, ADDONUAPLUS #### [address] #### C3, C4, CH50 #### [facility] , Nitrite,Urine Negative Normal Negative [facility] Comment on above: Order Comment: Name Collection Type:: Clean-Voided Midstream Performed By: #### C UU, ADDONUAPLUS #### [address] #### C3, C4, CH50 #### [facility] , Occult Blood,Urine 1+ High Negative [facility] Comment on above: Order Comment: Name Collection Type:: Clean-Voided Midstream Performed By: #### C UU, ADDONUAPLUS #### [address] #### C3, C4, CH50 #### [facility] , pH (U) 6.5 [pH] Normal 5.0-9.0 [facility] Comment on above: Order Comment: Name Collection Type:: Clean-Voided Midstream Performed By: #### C UU, ADDONUAPLUS #### [place] [address] [place] #### C3, C4, CH50 #### [facility] , Protein,Urine Trace High Negative [facility] Comment on above: Order Comment: Name Collection Type:: Clean-Voided Midstream Performed By: #### C UU, ADDONUAPLUS #### [address] #### C3, C4, CH50 #### [facility] , RBC,Urine 1-2 Normal 0-4 [facility] Comment on above: Order Comment: Name Collection Type:: Clean-Voided Midstream Performed By: #### C UU, ADDONUAPLUS #### [address] #### C3, C4, CH50 #### [facility] , Specificy Kimball,Urine 1.010 Normal 1.001-1.030 [facility] Comment on above: Order Comment: Name Collection Type:: Clean-Voided Midstream Performed By: #### C UU, ADDONUAPLUS #### [address] #### C3, C4, CH50 #### [facility] , Squamous Epithelial Cell,Urine 5-9 High 0-2 [facility] Comment on above: Order Comment: Name Collection Type:: Clean-Voided Midstream Performed By: #### C UU, ADDONUAPLUS #### [address] #### C3, C4, CH50 #### [facility] , Urobilinogen,Urine Normal Normal Normal [facility] Comment on above: Order Comment: Name Collection Type:: Clean-Voided Midstream Performed By: #### C UU, ADDONUAPLUS #### [address] #### C3, C4, CH50 #### [facility] , WBC,Urine Innumerable High 0-4 [facility] Comment on above: Order Comment: Name Collection Type:: Clean-Voided Midstream Performed By: #### C UU, ADDONUAPLUS #### [address] #### C3, C4, CH50 #### [facility] , Erythrocyte Sedimentation Ra pratik 06-19-2022 ESR (Bld) [Velocity] 57 mm/h High 0-29 [facility] Comment on above: Result Comment: PERF ORMED BY: [place] [address] PATHOLOGIST WINE PASTEURIZER RADHA BULLARD M.D. Performed By: #### H EPATIC, CBC, ESR, CRP, CREAT, CK #### [address] #### RNA POLYMR, ANTI TH TO, EVAN, U3 ENAMEL SHADER, ANTIR, PM-SCL ABS #### [facility] , Hepatic Panelon 06-19-2022 Albumin [Mass/Vol] 3.6 g/dL Normal 3.2-5.5 [facility] Comment on above: Performed By: #### H EPATIC, CBC, ESR, CRP, CREAT, CK #### [facility] [address] [place] [address] #### RNA POLYMR, ANTI TH TO, EVAN, U3 ENAMEL SHADER, ANTIR, PM-SCL ABS #### [facility] , Albumin/Globulin [Mass ratio] 1.0 {ratio} Normal [facility] Comment on above: Performed By: #### H EPATIC, CBC, ESR, CRP, CREAT, CK #### [facility] [address] [place] [address] [place] #### RNA POLYMR, ANTI TH TO, EVAN, U3 ENAMEL SHADER, ANTIR, PM-SCL ABS #### [facility] , ALP [Catalytic activity/Vol] 68 U/L Normal 32-92 [facility] Comment on above: Performed By: #### H EPATIC, CBC, ESR, CRP, CREAT, CK #### [facility] [address] [place] [address] [place] #### RNA POLYMR, ANTI TH TO, EVAN, U3 ENAMEL SHADER, ANTIR, PM-SCL ABS #### [facility] , ALT [Catalytic activity/Vol] 9 U/L Low 10-60 [facility] Comment on above: Performed By: #### H EPATIC, CBC, ESR, CRP, CREAT, CK #### [address] #### RNA POLYMR, ANTI TH TO, EVAN, U3 ENAMEL SHADER, ANTIR, PM-SCL ABS #### [facility] , AST [Catalytic activity/Vol] 15 U/L Normal 10- [facility] Comment on above: Performed By: #### H EPATIC, CBC, ESR, CRP, CREAT, CK #### [facility] [address] [place] [address] [place] #### RNA POLYMR, ANTI TH TO, EVAN, U3 ENAMEL SHADER, ANTIR, PM-SCL ABS #### [facility] , Bilirubin [Mass/Vol] 0.6 mg/dL Normal 0.3-1.2 [facility] Comment on above: Performed By: #### H EPATIC, CBC, ESR, CRP, CREAT, CK #### [facility] [address] [place] [address] [place] #### RNA POLYMR, ANTI TH TO, EVAN, U3 ENAMEL SHADER, ANTIR, PM-SCL ABS #### [facility] , Bilirubin,Indirect 0.4 mg/dL Normal [facility] Comment on above: Performed By: #### H EPATIC, CBC, ESR, CRP, CREAT, CK #### [facility] [address] [place] [address] [place] #### RNA POLYMR, ANTI TH TO, EAVN, U3 ENAMEL SHADER, ANTIR, PM-SCL ABS #### [facility] , Bilirubin.indirect [Mass/Vol] 0.2 mg/dL Normal 0.0-0.4 [facility] Comment on above: Performed By: #### H EPATIC, CBC, ESR, CRP, CREAT, CK #### [place] [address] [place] #### RNA POLYMR, ANTI TH TO, EVAN, U3 ENAMEL SHADER, ANTIR, PM-SCL ABS #### [facility] , Globulin (S) [Mass/Vol] 3.5 g/dL Normal [facility] Comment on above: Performed By: #### H EPATIC, CBC, ESR, CRP, CREAT, CK #### [place] [address] [place] #### RNA POLYMR, ANTI TH TO, EVAN, U3 ENAMEL SHADER, ANTIR, PM-SCL ABS #### [facility] , Protein [Mass/Vol] 7.1 g/dL Normal 6.1-7.9 [facility] Comment on above: Performed By: #### H EPATIC, CBC, ESR, CRP, CREAT, CK #### [place] [address] [place] #### RNA POLYMR, ANTI TH TO, EVAN, U3 ENAMEL SHADER, ANTIR, PM-SCL ABS #### [facility] , PM-SCL Antibodieson 06-19-20 22 RAIZA PM-Scl Antibody <20 Normal <20 [facility] Comment on above: Result Comment: This test was developed and its performance characteristics determined by [facility]. It has not been cleared or approved by the Food and Drug Administration. Negative: <20 Weak Positive: 20 - 39 Moderate Positive: 40 - 80 Strong Positive: >80 Performed at: [facility] [address] [place] [address] [id number] Tobacco Scrap Sifter: Artemio Nair MD, Phone: [phone] Performed By: #### C UU, ADDONUAPLUS #### [place] [address] [place] #### C3, C4, CH50 #### [facility] , RNA Polymerase IIion 022 RNA Polymerase IIi <20 Normal <20 [facility] Comment on above: Result Comment: Nega tive: <20 Weak Positive: 20 - 39 Moderate Positive: 40 - 80 Strong Positive: >80 Performed at: [facility] [address] [place] [address] [id number] Tobacco Scrap Sifter: Artemio Nair MD, Phone: [phone] PERFORMED BY: [place] [address] PATHOLOGIST WINE PASTEURIZER RADHA BULLARD M.D. Performed By: #### C UU, ADDONUAPLUS #### [address] #### C3, C4, CH50 #### [facility] , Th/To Antibodyon 06-19-2022 Th/To Antibody Negative Normal Negative [facility] Comment on above: Result Comment: This test was developed and its performance characteristics determined by [employer]. It has not been cleared or approved by the Food and Drug Administration. Performed at: [facility] [address] [place] [address] [id number] Tobacco Scrap Sifter: Artemio Nair MD, Phone: [phone] Performed By: #### C UU, ADDONUAPLUS #### [facility] [address] [place] [address] #### C3, C4, CH50 #### [facility] , U3 Rnpon 06-19-2022 U3 Station Installer And Repairer Negative Normal Negative [facility] Comment on above: Result Comment: This test was developed and its performance characteristics determined by [facility]. It has not been cleared or approved by the Food and Drug Administration. Performed at: [facility] [address] [place] [address] [id number] Tobacco Scrap Sifter: Artemio Nair MD, Phone: [phone] PERFORMED BY: [place] [address] PATHOLOGIST WINE PASTEURIZER RADHA BULLARD M.D. Performed By: #### C UU, ADDONUAPLUS #### [address] #### C3, C4, CH50 #### [facility] , Urine Cultureon 06-19-2022 Bacteria identified Cx Nom (U) No Growth 2 Days PERFORMED BY: [place] [address] PATHOLOGIST WINE PASTEURIZER RADHA BULLARD M.D. [facility] Comment on above: Performed By: #### C UU, ADDONUAPLUS #### [address] #### C3, C4, CH50 #### [facility] , PROF CHEM 8 (BAS METB)on Anion gap [Moles/Vol] 12.5 mmol/L Normal [facility] Comment on above: Performed By: #### B MP #### [facility] [address] [address] [address] Reji Thomas Calcium [Mass/Vol] 8.9 mg/dL Normal 8.5-10.1 [facility] Comment on above: Performed By: #### B MP #### [facility] [address] [address] [address] Reji Thomas Chloride [Moles/Vol] 103 mmol/L Normal 98-107 [facility] Comment on above: Performed By: #### B MP #### [facility] [address] [address] [address] Reji Thomas CO2 [Moles/Vol] 26.1 mmol/L Normal 21.0-32.0 [facility] Comment on above: Performed By: #### B MP #### [facility] [address] [address] [address] Reji Thomas Creatinine [Mass/Vol] 2.09 mg/dL Critically high 0.55-1.02 [facility] Comment on above: Performed By: #### B MP #### [facility] [address] [address] [address] Reji Thomas EGFR-AF PALESTINIAN 27 mL/min/1.73m2 Critically low >=60 [facility] Comment on above: Performed By: #### B MP #### [facility] [address] [address] [address] Reji Thomas EGFR-NON AF PALESTINIAN 23 mL/min/1.73m2 Critically low >=60 [facility] Comment on above: Performed By: #### B MP #### [facility] [address] [address] [address] Reji Thomas Glucose [Mass/Vol] 96 mg/dL Normal 74-106 [facility] Comment on above: Performed By: #### B MP #### [facility] [address] [address] [address] Reji Thomas Potassium [Moles/Vol] 4.6 mmol/L Normal 3.5-5.1 [facility] Comment on above: Performed By: #### B MP #### [facility] [address] [address] [address] Reji Thomas Sodium [Moles/Vol] 137 mmol/L Normal 136-145 [facility] Comment on above: Performed By: #### B MP #### [facility] [address] [address] [address] Reji Thomas Urea nitrogen [Mass/Vol] 38.0 mg/dL Critically high 7.0-18.0 [facility] Comment on above: Performed By: #### B MP #### [facility] [address] [address] [address] Reji Thomas Urea nitrogen/Creatinine [Mass ratio] 18.2 mg/mg Normal [facility] Comment on above: Performed By: #### B MP #### [facility] [address] [address] [address] Reji Thomas PROTIMEon 06-04-2022 INR Coag (PPP) [Relative time] 2.51 {INR} Normal [facility] Comment on above: Performed By: #### B INSULATION BOARD CALENDER OPERATOR, CMP, TSH, LIPID #### [facility] [address] [place] [address] Dr. Reji Thomas INR GUIDELINES SEE BELOW Normal [facility] Comment on above: Result Comment: SHY RED INR: 2.0 - 3.0 CONDITIONS NOT LISTED BELOW 2.5 - 3.5 FOR PROSTHETIC HEART VALVE REPLACEMENT 2.5 - 3.5 RECURRENT THROMBOSIS Performed By: #### B INSULATION BOARD CALENDER OPERATOR, CMP, TSH, LIPID #### [facility] [address] [place] [address] Dr. Reji Thomas PT Coag (PPP) [Time] 25.5 s Critically high 9.0-11.6 [facility] Comment on above: Performed By: #### B INSULATION BOARD CALENDER OPERATOR, CMP, TSH, LIPID #### [facility] [address] [place] [address] Dr. Reji Thomas BNPon 05-15-2022 Natriuretic peptide B (Bld) [Mass/Vol] 3661.0 pg/mL Critically high <=1,800.0 [facility] Comment on above: Performed By: #### B INSULATION BOARD CALENDER OPERATOR, CMP, TSH, LIPID #### [facility] [address] [place] [address] Dr. Reji Thomas CBC AUTO DIFFon 05-15-2022 BASO # 0.1 103/ul Normal 0.0-0.1 [facility] Comment on above: Performed By: #### B MP #### [facility] [address] [place] [address] Dr. Reji Thomas Basophils/100 WBC (Bld) 1.1 % Normal 0.2-2.0 [facility] Comment on above: Performed By: #### B MP #### [facility] [address] [place] [address] Dr. Reji Thomas EO # 0.5 103/ul Normal 0.0-0.7 [facility] Comment on above: Performed By: #### B MP #### [facility] [address] [place] [address] Dr. Reji Thomas Eosinophils/100 WBC (Bld) 6.5 % Normal 0.9-7.0 [facility] Comment on above: Performed By: #### B MP #### [facility] [address] [place] [address] Dr. Reji Thomas Erythrocyte distribution width (RBC) [Ratio] 16.1 % Critically high 11.0-15.0 [facility] Comment on above: Performed By: #### B MP #### [facility] [address] [place] [address] Dr. Reji Thomas Hematocrit (Bld) [Volume fraction] 35.0 % Critically low 36.0-48.0 [facility] Comment on above: Performed By: #### B MP #### [facility] [address] [place] [address] Dr. Reji Thomas Hemoglobin (Bld) [Mass/Vol] 11.1 g/dL Critically low 12.0-16.0 [facility] Comment on above: Performed By: #### B MP #### [facility] [address] [place] [address] Dr. Reji Thomas IG # 0.02 10e3/ul Normal 0.00-0.03 [facility] Comment on above: Performed By: #### B MP #### [facility] [address] [place] [address] Dr. Reji Thomas IG % 0.3 % Normal 0.0-0.5 [facility] Comment on above: Performed By: #### B MP #### [facility] [address] [place] [address] Dr. Reji Thomas LYMPH # 1.6 103/ul Normal 1.2-3.8 [facility] Comment on above: Performed By: #### B MP #### [facility] [address] [place] [address] Dr. Reji Thomas Lymphocytes/100 WBC (Bld) 22.4 % Normal 20.5-60.0 [facility] Comment on above: Performed By: #### B MP #### [facility] [address] [place] [address] Dr. Reji Thomas MANUAL DIFF REQ NO Normal [facility] Comment on above: Performed By: #### B MP #### [facility] [address] [address] [address] Reji Thomas MCH (RBC) [Entitic mass] 26.4 pg Critically low 26.7-34.0 [facility] Comment on above: Performed By: #### B MP #### [facility] [address] [address] [address] Reji Thomas MCHC (RBC) [Mass/Vol] 31.7 g/dL Normal 29.9-35.2 [facility] Comment on above: Performed By: #### B MP #### [facility] [address] [address] [address] Reji Thomas MCV (RBC) [Entitic vol] 83.1 fL Normal 81.0-99.0 [facility] Comment on above: Performed By: #### B MP #### [facility] [address] [place] [address] Dr. Reji Thomas MONO # 0.9 103/ul Critically high 0.3-0.8 [facility] Comment on above: Performed By: #### B MP #### [facility] [address] [place] [address] Dr. Reji Thomas Monocytes/100 WBC (Bld) 12.1 % Critically high 1.7-12.0 [facility] Comment on above: Performed By: #### B MP #### [facility] [address] [address] [address] Reji Thomas NEUT # 4.1 103/ul Normal 1.4-6.5 [facility] Comment on above: Performed By: #### B MP #### [facility] [address] [address] [address] Reji Thomas Neutrophils/100 WBC (Bld) 57.6 % Normal 43.0-75.0 [facility] Comment on above: Performed By: #### B MP #### [facility] [address] [place] [address] Dr. Reji Thomas Platelet mean volume (Bld) [Entitic vol] 8.8 fL Critically low 9.5-13.5 [facility] Comment on above: Performed By: #### B MP #### [facility] [address] [address] [address] Reji Thomas PLT 253 103/ul Normal 150-450 [facility] Comment on above: Performed By: #### B MP #### [facility] [address] [place] [address] Dr. Reji Thomas RBC 4.21 106/ul Normal 4.20-5.40 [facility] Comment on above: Performed By: #### B MP #### [facility] [address] [place] [address] Dr. Reji Thomas WBC 7.1 103/ul Normal 4.0-11.0 [facility] Comment on above: Performed By: #### B MP #### [facility] [address] [place] [address] Dr. Reji Thomas PROF CHEM 8 (BAS METB)on Anion gap [Moles/Vol] 10.5 mmol/L Normal [facility] Comment on above: Performed By: #### B INSULATION BOARD CALENDER OPERATOR, CMP, TSH, LIPID #### [facility] [address] [place] [address] Dr. Reji Thomas Calcium [Mass/Vol] 8.9 mg/dL Normal 8.5-10.1 [facility] Comment on above: Performed By: #### B INSULATION BOARD CALENDER OPERATOR, CMP, TSH, LIPID #### [facility] [address] [place] [address] Dr. Reji Thomas Chloride [Moles/Vol] 104 mmol/L Normal 98-107 [facility] Comment on above: Performed By: #### B INSULATION BOARD CALENDER OPERATOR, CMP, TSH, LIPID #### [facility] [address] [place] [address] Dr. Reji Thomas CO2 [Moles/Vol] 29.5 mmol/L Normal 21.0-32.0 [facility] Comment on above: Performed By: #### B INSULATION BOARD CALENDER OPERATOR, CMP, TSH, LIPID #### [facility] [address] [place] [address] Dr. Reji Thomas Creatinine [Mass/Vol] 1.73 mg/dL Critically high 0.55-1.02 [facility] Comment on above: Performed By: #### B INSULATION BOARD CALENDER OPERATOR, CMP, TSH, LIPID #### [facility] [address] [address] [address] Reji Thomas EGFR-AF PALESTINIAN 34 mL/min/1.73m2 Critically low >=60 [facility] Comment on above: Performed By: #### B INSULATION BOARD CALENDER OPERATOR, CMP, TSH, LIPID #### [facility] [address] [address] [address] Reji Thomas EGFR-NON AF PALESTINIAN 28 mL/min/1.73m2 Critically low >=60 [facility] Comment on above: Performed By: #### B INSULATION BOARD CALENDER OPERATOR, CMP, TSH, LIPID #### [facility] [address] [place] [address] Dr. Reji Thomas Glucose [Mass/Vol] 79 mg/dL Normal 74-106 [facility] Comment on above: Performed By: #### B INSULATION BOARD CALENDER OPERATOR, CMP, TSH, LIPID #### [facility] [address] [place] [address] Dr. Reji Thomas Potassium [Moles/Vol] 4.0 mmol/L Normal 3.5-5.1 [facility] Comment on above: Performed By: #### B INSULATION BOARD CALENDER OPERATOR, CMP, TSH, LIPID #### [facility] [address] [place] [address] Dr. Reji Thomas Sodium [Moles/Vol] 140 mmol/L Normal 136-[address] [facility] Comment on above: Performed By: #### B INSULATION BOARD CALENDER OPERATOR, CMP, TSH, LIPID #### [facility] [address] [address] [address] Reji Thomas Urea nitrogen [Mass/Vol] 22.0 mg/dL Critically high 7.0-18.0 [facility] Comment on above: Performed By: #### B INSULATION BOARD CALENDER OPERATOR, CMP, TSH, LIPID #### [facility] [address] [address] [address] Reji Thomas Urea nitrogen/Creatinine [Mass ratio] 12.7 mg/mg Normal [facility] Comment on above: Performed By: #### B INSULATION BOARD CALENDER OPERATOR, CMP, TSH, LIPID #### [facility] [address] [address] [address] Reji Thomas PROTIMEon 05-15-2022 INR Coag (PPP) [Relative time] 2.53 {INR} Normal [facility] Comment on above: Performed By: #### B INSULATION BOARD CALENDER OPERATOR, CMP, TSH, LIPID #### [facility] [address] [address] [address] Reji Thomas INR GUIDELINES SEE BELOW Normal [facility] Comment on above: Result Comment: SHY RED INR: 2.0 - 3.0 CONDITIONS NOT LISTED BELOW 2.5 - 3.5 FOR PROSTHETIC HEART VALVE REPLACEMENT 2.5 - 3.5 RECURRENT THROMBOSIS Performed By: #### B INSULATION BOARD CALENDER OPERATOR, CMP, TSH, LIPID #### [facility] [address] [address] [address] Reji Thomas PT Coag (PPP) [Time] 25.7 s Critically high 9.0-11.6 [facility] Comment on above: Performed By: #### B INSULATION BOARD CALENDER OPERATOR, CMP, TSH, LIPID #### [facility] [address] [place] [address] Dr. Reji Thomas ECHOCARDIO M/2D COMPLETEon 0 05-04-2022 ECHOCARDIO M/2D COMPLETE Patient: INEZ JUAREZ Exam Date: 05/04/2022 : 1940 Gender:F Ordering : DR JENN PRADO M.D. Admission #: [id number] Family : Order #: [id number] CLICK HERE TO VIEW EXAM ECHOCARDIOGRAM REPORT [...] Area(A4C): 27.20 cm2 Left Atrium Systolic Volume(A2C): 000027 mm3 Left Atrium Systolic Volume(A4C): 41429 mm3 Mitral Valve MV E to A Ratio: 2.60 Deceleration [place]: 30021 mm/s2 Mitral Valve A-Wave Peak Velocity: 58.60 [...] Prado M.D. on 05/07/2022 at 11:39 Normal [facility] EVAN by IFAon 04-19-2022 Antinuclear Antibodies, IFA Positive Abnormal [facility] Comment on above: Result Comment: Nega tive <1:80 Borderline 1:80 Positive >1:80 Performed By: #### B INSULATION BOARD CALENDER OPERATOR, CMP, TSH, LIPID #### [facility] [address] [address] [address] Reji Thomas Centriole Pattern Normal [facility] Comment on above: Performed By: #### B INSULATION BOARD CALENDER OPERATOR, CMP, TSH, LIPID #### [facility] [address] [address] [address] Reji Thomas Centromere Pattern Normal [facility] Comment on above: Performed By: #### B INSULATION BOARD CALENDER OPERATOR, CMP, TSH, LIPID #### [facility] [address] [address] [address] Reji Thomas Homogeneous Pattern 1:320 Critically high [facility] Comment on above: Result Comment: ICAP nomenclature: AC-1 Performed By: #### B INSULATION BOARD CALENDER OPERATOR, CMP, TSH, LIPID #### [facility] [address] [address] [address] Reji Thomas Midbody Pattern Normal [facility] Comment on above: Performed By: #### B INSULATION BOARD CALENDER OPERATOR, CMP, TSH, LIPID #### [facility] [address] [address] [address] Reji Thomas Note: Comment Normal [facility] Comment on above: Result Comment: [...] titers Nucleosomes, Histones Drug-induced SLE Speckled Sm, ENAMEL SHADER, SCL-70, SLE,MCTD,PSS (diffuse form), SS-A/SS-B Sjogrens Nucleolar SCL-70, PM-1/SCL High titers Scleroderma, PM/DM Centromere Centromere PSS (limited form) w/Crest syndrome variable Nuclear Dot Sp100,[id number] Primary Biliary Cirrhosis Nuclear GP210, Primary Biliary Cirrhosis Membrane eleonora A,B,C Performed By: #### B INSULATION BOARD CALENDER OPERATOR, CMP, TSH, LIPID #### [facility] [address] [address] [address] Reji Thomas Nuclear Dot Pattern Normal [facility] Comment on above: Performed By: #### B INSULATION BOARD CALENDER OPERATOR, CMP, TSH, LIPID #### [facility] [address] [address] [address] Reji Thomas Nuclear Membrane Pattern Normal [facility] Comment on above: Performed By: #### B INSULATION BOARD CALENDER OPERATOR, CMP, TSH, LIPID #### [facility] [address] [address] [address] Reji Thomas Nucleolar Pattern Normal [facility] Comment on above: Performed By: #### B INSULATION BOARD CALENDER OPERATOR, CMP, TSH, LIPID #### [facility] [address] [address] [address] Reji Thomas PCNA Pattern Normal [facility] Comment on above: Performed By: #### B INSULATION BOARD CALENDER OPERATOR, CMP, TSH, LIPID #### [facility] [facility] [address] [address] [address] Reji Thomas Speckled Pattern Normal [facility] Comment on above: Performed By: #### B INSULATION BOARD CALENDER OPERATOR, CMP, TSH, LIPID #### [facility] [address] [address] [address] Reji Thomas Spindle Apparatus Pattern Normal [facility] Comment on above: Performed By: #### B INSULATION BOARD CALENDER OPERATOR, CMP, TSH, LIPID #### [facility] [address] [address] [address] Reji Thomas ANCA (ANTINEUTROPHIL CYTOPLA MSMIC ABon 04-18-2022 Atypical pANCA <1:20 Normal Neg:<1:20 [facility] Comment on above: Result Comment: Seru m is slightly hemolyzed The atypical pANCA pattern has been observed in a significant percentage of patients with ulcerative colitis, primary sclerosing cholangitis and autoimmune hepatitis. Performed By: #### B MP #### [facility] [address] [address] [address] Reji Thomas Cytoplasmic (C-ANCA) <1:20 Normal Neg:<1:20 [facility] Comment on above: Result Comment: Seru m is slightly hemolyzed Performed By: #### B MP #### [facility] [address] [address] [address] Reji Thomas Perinuclear (P-ANCA) <1:20 Normal Neg:<1:20 [facility] Comment on above: Result Comment: Seru m is slightly hemolyzed The presence of positive fluorescence exhibiting P-ANCA or C-ANCA patterns alone is not specific for the diagnosis of Arlene's Granulomatosis (WG) or microscopic polyangiitis. Decisions about treatment should not be based solely on ANCA IFA results. The [employer] Consensus recommends follow up testing of positive sera with both FL-3 and MPO-ANCA enzyme immunoassays. As many as 5% serum samples are positive only by EIA. Ref. AM J Clin Pathol 1999;111:507-513. Performed By: #### B MP #### [facility] [address] [place] [address] Dr. Reji Thomas ANTISCLERODERMA ABon 022 Antiscleroderma-70 Antibodies 0.3 AI Normal 0.0-0.9 [facility] Comment on above: Performed By: #### B INSULATION BOARD CALENDER OPERATOR, CMP, TSH, LIPID #### [facility] [address] [address] [address] Reji Thomas T3 UPTAKEon 04-18-2022 Free Thyroxine Index 1.8 Normal 1.2-4.9 [facility] Comment on above: Performed By: #### B INSULATION BOARD CALENDER OPERATOR, CMP, TSH, LIPID #### [facility] [address] [address] [address] Reji Thomas T3 Uptake 23 % Critically low 24-39 [facility] Comment on above: Performed By: #### B INSULATION BOARD CALENDER OPERATOR, CMP, TSH, LIPID #### [facility] [address] [address] [address] Reji Thomas T4 LABCORPon 04-18-2022 T4 [Mass/Vol] 7.8 ug/dL Normal 4.5-12.0 [facility] [place] [facility] Comment on above: Performed By: #### B INSULATION BOARD CALENDER OPERATOR, CMP, TSH, LIPID #### [facility] [address] [place] [address] Dr. Reji Thomas BNPon 04-16-2022 Natriuretic peptide B (Bld) [Mass/Vol] 2870.0 pg/mL Critically high <=1,800.0 [facility] Comment on above: Result Comment: repe ated Performed By: #### B INSULATION BOARD CALENDER OPERATOR, CMP, TSH, LIPID #### [facility] [address] [place] [address] Dr. Reji Thomas CBC AUTO DIFFon 04-16-2022 BASO # 0.1 103/ul Normal 0.0-0.1 [facility] Comment on above: Performed By: #### B INSULATION BOARD CALENDER OPERATOR, CMP, TSH, LIPID #### [facility] [address] [place] [address] Dr. Reji Thomas Basophils/100 WBC (Bld) 0.9 % Normal 0.2-2.0 [facility] Comment on above: Performed By: #### B INSULATION BOARD CALENDER OPERATOR, CMP, TSH, LIPID #### [facility] [address] [place] [address] Dr. Reji Thomas EO # 0.3 103/ul Normal 0.0-0.7 [facility] Comment on above: Performed By: #### B INSULATION BOARD CALENDER OPERATOR, CMP, TSH, LIPID #### [facility] [address] [place] [address] Dr. Reji Thomas Eosinophils/100 WBC (Bld) 3.9 % Normal 0.9-7.0 [facility] Comment on above: Performed By: #### B INSULATION BOARD CALENDER OPERATOR, CMP, TSH, LIPID #### [facility] [address] [place] [address] Dr. Reji Thomas Erythrocyte distribution width (RBC) [Ratio] 15.9 % Critically high 11.0-15.0 [facility] Comment on above: Performed By: #### B INSULATION BOARD CALENDER OPERATOR, CMP, TSH, LIPID #### [facility] [address] [place] [address] Dr. Reji Thomas Hematocrit (Bld) [Volume fraction] 38.1 % Normal 36.0-48.0 [facility] Comment on above: Performed By: #### B INSULATION BOARD CALENDER OPERATOR, CMP, TSH, LIPID #### [facility] [address] [place] [address] Dr. Reji Thomas Hemoglobin (Bld) [Mass/Vol] 12.1 g/dL Normal 12.0-16.0 [facility] Comment on above: Performed By: #### B INSULATION BOARD CALENDER OPERATOR, CMP, TSH, LIPID #### [facility] [address] [place] [address] Dr. Reji hTomas IG # 0.02 10e3/ul Normal 0.00-0.03 [facility] Comment on above: Performed By: #### B INSULATION BOARD CALENDER OPERATOR, CMP, TSH, LIPID #### [facility] [address] [place] [address] Dr. Reji Thomas IG % 0.3 % Normal 0.0-0.5 [facility] Comment on above: Performed By: #### B INSULATION BOARD CALENDER OPERATOR, CMP, TSH, LIPID #### [facility] [address] [place] [address] Dr. Reji Thomas LYMPH # 1.6 103/ul Normal 1.2-3.8 [facility] Comment on above: Performed By: #### B INSULATION BOARD CALENDER OPERATOR, CMP, TSH, LIPID #### [facility] [address] [place] [address] Dr. Reji Thomas Lymphocytes/100 WBC (Bld) 22.6 % Normal 20.5-60.0 [facility] Comment on above: Performed By: #### B INSULATION BOARD CALENDER OPERATOR, CMP, TSH, LIPID #### [facility] [address] [place] [address] Dr. Reji Thomas MANUAL DIFF REQ NO Normal [facility] Comment on above: Performed By: #### B INSULATION BOARD CALENDER OPERATOR, CMP, TSH, LIPID #### [facility] [address] [place] [address] Dr. Reji Thomas MCH (RBC) [Entitic mass] 26.5 pg Critically low 26.7-34.0 [facility] Comment on above: Performed By: #### B INSULATION BOARD CALENDER OPERATOR, CMP, TSH, LIPID #### [facility] [address] [place] [address] Dr. Reji Thomas MCHC (RBC) [Mass/Vol] 31.8 g/dL Normal 29.9-35.2 [facility] Comment on above: Performed By: #### B INSULATION BOARD CALENDER OPERATOR, CMP, TSH, LIPID #### [facility] [address] [place] [address] Dr. Rjei Thomas MCV (RBC) [Entitic vol] 83.4 fL Normal 81.0-99.0 [facility] Comment on above: Performed By: #### B INSULATION BOARD CALENDER OPERATOR, CMP, TSH, LIPID #### [facility] [address] [place] [address] Dr. Reji Thomas MONO # 0.6 103/ul Normal 0.3-0.8 [facility] Comment on above: Performed By: #### B INSULATION BOARD CALENDER OPERATOR, CMP, TSH, LIPID #### [facility] [address] [place] [address] Dr. Reji Thomas Monocytes/100 WBC (Bld) 9.3 % Normal 1.7-12.0 [facility] Comment on above: Performed By: #### B INSULATION BOARD CALENDER OPERATOR, CMP, TSH, LIPID #### [facility] [address] [place] [address] Dr. Reji Thomas NEUT # 4.3 103/ul Normal 1.4-6.5 [facility] Comment on above: Performed By: #### B INSULATION BOARD CALENDER OPERATOR, CMP, TSH, LIPID #### [facility] [address] [place] [address] Dr. Reji Thomas Neutrophils/100 WBC (Bld) 63.0 % Normal 43.0-75.0 [facility] Comment on above: Performed By: #### B INSULATION BOARD CALENDER OPERATOR, CMP, TSH, LIPID #### [facility] [address] [place] [address] Dr. Reji Thomas Platelet mean volume (Bld) [Entitic vol] 9.2 fL Critically low 9.5-13.5 [facility] Comment on above: Performed By: #### B INSULATION BOARD CALENDER OPERATOR, CMP, TSH, LIPID #### [facility] [address] [address] [address] Reji Thomas PLT 211 103/ul Normal 150-450 [facility] Comment on above: Performed By: #### B INSULATION BOARD CALENDER OPERATOR, CMP, TSH, LIPID #### [facility] [address] [address] [address] Reji Thomas RBC 4.57 106/ul Normal 4.20-5.40 [facility] Comment on above: Performed By: #### B INSULATION BOARD CALENDER OPERATOR, CMP, TSH, LIPID #### [facility] [address] [place] [address] Dr. Reji Thomas WBC 6.9 103/ul Normal 4.0-11.0 [facility] Comment on above: Performed By: #### B INSULATION BOARD CALENDER OPERATOR, CMP, TSH, LIPID #### [facility] [address] [place] [address] Dr. Reji Thomas GLYCOHEMOGLOBIN A1Con 2021 ADA RECOMMENDATION SEE BELOW Normal [facility] Comment on above: Result Comment: ADA RECOMMENDED LIMIT 4.0 - 6.0 ADA THERAPEUTIC TARGET < 7.0 ACTION SUGGESTED > 7.0 Performed By: #### B INSULATION BOARD CALENDER OPERATOR, CMP, TSH, LIPID #### [facility] [address] [place] [address] Dr. Reji Thomas Glucose [Mass/Vol] 100 mg/dL Normal [facility] Comment on above: Performed By: #### B INSULATION BOARD CALENDER OPERATOR, CMP, TSH, LIPID #### [facility] [address] [place] [address] Dr. Reji Thomas HbA1c (Bld) [Mass fraction] 5.1 % Normal 4.5-6.2 [facility] Comment on above: Performed By: #### B INSULATION BOARD CALENDER OPERATOR, CMP, TSH, LIPID #### [facility] [address] [place] [address] Dr. Reji Thomas IRONon 04-16-2022 Iron [Mass/Vol] 42.0 ug/dL Critically low 50.0-170.0 [facility] Comment on above: Performed By: #### B INSULATION BOARD CALENDER OPERATOR, CMP, TSH, LIPID #### [facility] [address] [address] [address] Reji Thomas LIPID PROFILEon 04-16-2022 CHOL-HDL RATIO NORM SEE BELOW Normal [facility] Comment on above: Result Comment: 3.3 - 4.4 LOW RISK 4.4 - 7.1 AVERAGE RISK 7.1 - 11.0 MODERATE RISK >11.0 HIGH RISK Performed By: #### B INSULATION BOARD CALENDER OPERATOR, CMP, TSH, LIPID #### [facility] [address] [address] [address] Reji Thomas Cholesterol [Mass/Vol] 176 mg/dL Normal <=200 [facility] Comment on above: Performed By: #### B INSULATION BOARD CALENDER OPERATOR, CMP, TSH, LIPID #### [facility] [address] [place] [address] Dr. Reji Thomas Cholesterol in HDL [Mass/Vol] 52 mg/dL Normal 40-60 [facility] Comment on above: Performed By: #### B INSULATION BOARD CALENDER OPERATOR, CMP, TSH, LIPID #### [facility] [address] [address] [address] Reji Thomas Cholesterol in LDL [Mass/Vol] 102.8 mg/dL Normal [facility] Comment on above: Performed By: #### B INSULATION BOARD CALENDER OPERATOR, CMP, TSH, LIPID #### [facility] [address] [address] [address] Reji Thomas Cholesterol.total/Ch olesterol in HDL [Mass ratio] 3.4 {ratio} Normal [facility] Comment on above: Performed By: #### B INSULATION BOARD CALENDER OPERATOR, CMP, TSH, LIPID #### [facility] [address] [place] [address] Dr. Rjei Thomas HDL NORMAL > or = 60 mg/dl - LOW CARDIOVASCULAR RISK <40 mg/dl - HIGH CARDIOVASCULAR RISK Normal [facility] Comment on above: Performed By: #### B INSULATION BOARD CALENDER OPERATOR, CMP, TSH, LIPID #### [facility] [address] [place] [address] Dr. Reji Thomas LDL CALC NORMAL SEE BELOW Normal [facility] Comment on above: Result Comment: <100 mg/dl OPTIMAL 100 - 129 mg/dl NEAR OR ABOVE OPTIMAL 130 - 159 mg/dl BORDERLINE HIGH 160 - 189 mg/dl HIGH >190 mg/dl VERY HIGH Performed By: #### B INSULATION BOARD CALENDER OPERATOR, CMP, TSH, LIPID #### [facility] [address] [address] [address] Reji Thomas Triglyceride [Mass/Vol] 106 mg/dL Normal <=150 [facility] Comment on above: Performed By: #### B INSULATION BOARD CALENDER OPERATOR, CMP, TSH, LIPID #### [facility] [address] [address] [address] Reji Thomas VLDL CALC 21.2 mg/dL Normal [facility] Comment on above: Performed By: #### B INSULATION BOARD CALENDER OPERATOR, CMP, TSH, LIPID #### [facility] [address] [place] [address] Dr. Reji Thomas PROF 14(COMP METB)on 022 Albumin [Mass/Vol] 3.6 g/dL Normal 3.4-5.0 [facility] Comment on above: Performed By: #### B INSULATION BOARD CALENDER OPERATOR, CMP, TSH, LIPID #### [facility] [address] [place] [address] Dr. Reji Thomas Albumin/Globulin [Mass ratio] 0.9 {ratio} Normal [facility] Comment on above: Performed By: #### B INSULATION BOARD CALENDER OPERATOR, CMP, TSH, LIPID #### [facility] [address] [place] [address] Dr. Reji Thomas ALP [Catalytic activity/Vol] 62 U/L Normal 46-116 [facility] Comment on above: Performed By: #### B INSULATION BOARD CALENDER OPERATOR, CMP, TSH, LIPID #### [facility] [address] [place] [address] Dr. Reji Thomas ALT [Catalytic activity/Vol] 14 U/L Normal 14-59 [facility] Comment on above: Performed By: #### B INSULATION BOARD CALENDER OPERATOR, CMP, TSH, LIPID #### [facility] [address] [place] [address] Dr. Reji Thomas Anion gap [Moles/Vol] 14.5 mmol/L Normal [facility] Comment on above: Performed By: #### B INSULATION BOARD CALENDER OPERATOR, CMP, TSH, LIPID #### [facility] [address] [place] [address] Dr. Reji Thomas AST [Catalytic activity/Vol] 17 U/L Normal 15-37 [facility] Comment on above: Performed By: #### B INSULATION BOARD CALENDER OPERATOR, CMP, TSH, LIPID #### [facility] [address] [address] [address] Reji Thomas Bilirubin [Mass/Vol] 0.6 mg/dL Normal 0.2-1.0 [facility] Comment on above: Performed By: #### B INSULATION BOARD CALENDER OPERATOR, CMP, TSH, LIPID #### [facility] [address] [address] [address] Reji Thomas Calcium [Mass/Vol] 8.8 mg/dL Normal 8.5-10.[address] [facility] Comment on above: Performed By: #### B INSULATION BOARD CALENDER OPERATOR, CMP, TSH, LIPID #### [facility] [address] [address] [address] Reji Thomas Chloride [Moles/Vol] 102 mmol/L Normal 98-107 [facility] Comment on above: Performed By: #### B INSULATION BOARD CALENDER OPERATOR, CMP, TSH, LIPID #### [facility] [address] [address] [address] Reji Thomas CO2 [Moles/Vol] 26.3 mmol/L Normal 21.0-32.[address] [facility] Comment on above: Performed By: #### B INSULATION BOARD CALENDER OPERATOR, CMP, TSH, LIPID #### [facility] [address] [address] [address] Reji Thomas Creatinine [Mass/Vol] 1.76 mg/dL Critically high 0.55-1.02 [facility] Comment on above: Performed By: #### B INSULATION BOARD CALENDER OPERATOR, CMP, TSH, LIPID #### [facility] [address] [address] [address] Reji Thomas EGFR-AF PALESTINIAN 33 mL/min/1.73m2 Critically low >=60 [facility] Comment on above: Performed By: #### B INSULATION BOARD CALENDER OPERATOR, CMP, TSH, LIPID #### [facility] [address] [address] [address] Reji Thomas EGFR-NON AF PALESTINIAN 28 mL/min/1.73m2 Critically low >=60 [facility] Comment on above: Performed By: #### B INSULATION BOARD CALENDER OPERATOR, CMP, TSH, LIPID #### [facility] [address] [place] [address] Dr. Reji Thomas Globulin (S) [Mass/Vol] 4.2 g/dL Normal [facility] Comment on above: Performed By: #### B INSULATION BOARD CALENDER OPERATOR, CMP, TSH, LIPID #### [facility] [address] [place] [address] Dr. Reji Thomas Glucose [Mass/Vol] 81 mg/dL Normal 74-[address] [facility] Comment on above: Performed By: #### B INSULATION BOARD CALENDER OPERATOR, CMP, TSH, LIPID #### [facility] [address] [place] [address] Dr. Reji Thomas Potassium [Moles/Vol] 3.8 mmol/L Normal 3.5-5.1 [facility] Comment on above: Performed By: #### B INSULATION BOARD CALENDER OPERATOR, CMP, TSH, LIPID #### [facility] [address] [place] [address] Dr. Reji Thomas Protein [Mass/Vol] 7.8 g/dL Normal 6.4-8.[address] [facility] Comment on above: Performed By: #### B INSULATION BOARD CALENDER OPERATOR, CMP, TSH, LIPID #### [facility] [address] [place] [address] Dr. Reji Thomas Sodium [Moles/Vol] 139 mmol/L Normal 136-[address] [facility] Comment on above: Performed By: #### B INSULATION BOARD CALENDER OPERATOR, CMP, TSH, LIPID #### [facility] [address] [place] [address] Dr. Reji Thomas Urea nitrogen [Mass/Vol] 27.0 mg/dL Critically high 7.0-18.0 [facility] Comment on above: Performed By: #### B INSULATION BOARD CALENDER OPERATOR, CMP, TSH, LIPID #### [facility] [address] [place] [address] Dr. Reji Thomas Urea nitrogen/Creatinine [Mass ratio] 15.3 mg/mg Normal [facility] Comment on above: Performed By: #### B INSULATION BOARD CALENDER OPERATOR, CMP, TSH, LIPID #### [facility] [address] [place] [address] Dr. Reji Thomas PROTIMEon 04-16-2022 INR Coag (PPP) [Relative time] 1.92 {INR} Normal [facility] Comment on above: Performed By: #### B INSULATION BOARD CALENDER OPERATOR, CMP, TSH, LIPID #### [facility] [address] [place] [address] Dr. Reji Thomas INR GUIDELINES SEE BELOW Normal [facility] Comment on above: Result Comment: SHY RED INR: 2.0 - 3.0 CONDITIONS NOT LISTED BELOW 2.5 - 3.5 FOR PROSTHETIC HEART VALVE REPLACEMENT 2.5 - 3.5 RECURRENT THROMBOSIS Performed By: #### B INSULATION BOARD CALENDER OPERATOR, CMP, TSH, LIPID #### [facility] [address] [place] [address] Dr. Reji Thomas PT Coag (PPP) [Time] 19.9 s Critically high 9.0-11.6 [facility] Comment on above: Performed By: #### B INSULATION BOARD CALENDER OPERATOR, CMP, TSH, LIPID #### [facility] [address] [place] [address] Dr. Reji Thomas [facility] SED RATE 37 mm/hr Critically high <=30 [facility] Comment on above: Performed By: #### B INSULATION BOARD CALENDER OPERATOR, CMP, TSH, LIPID #### [facility] [address] [place] [address] Dr. Reji Thomas TSHon 04-16-2022 TSH 1.941 uIU/mL Normal 0.358-3.740 [facility] [place] [facility] Comment on above: Performed By: #### B INSULATION BOARD CALENDER OPERATOR, CMP, TSH, LIPID #### [facility] [address] [place] [address] Dr. Reji Thomas TSH RANGE SEE BELOW Normal [facility] Comment on above: Result Comment: <0.3 4 UIU/ml HYPERTHYROID 0.34-5.60 UIU/ml EUTHYROID >5.60 UIU/ml HYPOTHYROID Performed By: #### B INSULATION BOARD CALENDER OPERATOR, CMP, TSH, LIPID #### [facility] [address] [place] [address] Dr. Reji Thomas VITAMIN D 25 OHon 04-16-2022 VIT D 25-OH 56.6 ng/mL Normal [facility] Comment on above: Performed By: #### B INSULATION BOARD CALENDER OPERATOR, CMP, TSH, LIPID #### [facility] [address], [place] [address] Dr. Reji Thomas VIT D RANGES SEE BELOW Normal [facility] Comment on above: Result Comment: <20 ng/mL Vit D deficient 20 - <30 ng/mL Vit D insufficient 30 - 100 ng/mL Vit D sufficient >100 ng/mL Potential Toxicity Performed By: #### B INSULATION BOARD CALENDER OPERATOR, CMP, TSH, LIPID #### [facility] [address] [place], [place] [address] Dr. Reji Thomas Cardiovascular Lab Reporton 11-02-2021 Cardiovascular Lab Report [facility] Patient Name: Inez Juarez MR #: [id number] [facility] Physician: Jenn Prado M.D. Department of Service Date: 11/01/2021 Medicine Birthdate: 1940 Division of Room #: Cardiology Adult Cardiovascular Services [place] [address] Cardiovascular Laboratory Report INDICATION: The patient is [...] signed consent. She was brought to labor trainer in a fasting state. The right neck area was prepped and draped in usual fashion. Micropuncture technique and ultrasound guidance were used for access in the right internal jugular vein. A 6-Cambodian x 11 cm sheath was placed. A 6-Cambodian Hernández catheter was used for heart catheterization [...] Prado M.D. Date Trans: 11/01/2021 11:22 P/alondra [id number] cc: Bruce Rizvi M.D. [address], [facility] [id number] [place] [facility] Cardiovascular Lab Reporton 06-02-2021 Cardiovascular Lab Report [facility] Patient Name: Inez Juarez MR #: [id number] [facility] Physician: Jenn Prado M.D. Department of Service Date: 06/02/2021 Medicine Birthdate: 1940 Division of Room #: [facility] Cardiology Adult Cardiovascular Services [place] [address] Cardiovascular Laboratory Report INDICATION: The patient is [...] informed consent. She was brought to labor trainer in a fasting state. The right neck area was prepped and draped in usual fashion. Using micropuncture technique and ultrasound guidance, the right internal jugular vein was accessed and a 6-Cambodian x 11 cm sheath was placed. A 6-Cambodian Hernández catheter was used for heart catheterization [...] Prado M.D. Date Trans: 06/02/2021 02:42 P/mmo [id number] cc: Bruce Rizvi M.D. [address] [place] [address] [facility] Encounters Encounter Date Encounter Type Care Provider Facility Start: 06-28-2025 End: 06-28-2025 ambulatory JENN PRADO [facility] Start: 03-22-2023 End: 03-23-[address] [...] Start: 11-01-2021 End: 11-02-2021 ambulatory PROVIDER UNKNOWN Facility:[facility] Start: 06-02-2021 End: 06-03-2021 ambulatory PROVIDER UNKNOWN Facility:[facility] Payers Date Payer Category Payer Medicare [id number] 1961 Medicare [id number] 1961 Medicare [id number] 1961 Self-pay [id number] 1940 Unknown [id number] 2.16.8 [id number] 1940 Unknown [id number] 2.16.8 40.1.942017.3.579.2.647 1940 Unknown [id number] 2.16.84 0.1.453820.3.579.2.593 1938 Unknown [id number] 2.16.84 0.1.537940.3.579.2.593 1938 Unknown [id number] 2.16.84 0.1.064344.3.579.2.593 1938 Unknown [id number] 2.16.84 0.1.469248.3.579.2.593 1938 Unknown [id number] 2.16.84 0.1.330682.3.579.2.593 1938 Unknown [id number] 2.16.84 0.1.647885.3.579.2.593 1938 Unknown [id number] 2.16.84 0.1.275803.3.579.2.593 1938 Unknown [id number] 2.16.84 0.1.819689.3.579.2.593 1938 Unknown [id number] 2.16.84 0.1.141470.3.579.2.593 1938 Unknown [id number] 2.16.84 0.1.640352.3.579.2.593 1938 Unknown [id number] 2.16.84 0.1.728434.3.579.2.593 1938 Unknown [id number] 2.16.84 0.1.913409.3.579.2.593 1938 Unknown [id number] 2.16.84 0.1.140918.3.579.2.593 1938 Unknown [id number] 2.16.84 0.1.803128.3.579.2.593 1938 Unknown [id number] 2.16.84 0.1.170065.3.579.2.593 1938 Unknown [id number] 2.16.84 0.1.204972.3.579.2.593 1938 Unknown [id number] 2.16.84 0.1.212057.3.579.2.593 1938 Unknown [id number] 2.16.84 0.1.334388.3.579.2.593 1938 Unknown [id number] 2.16.84 0.1.828852.3.579.2.593 Private Health Insurance IAB [id number] Progress note 06-28-2025 Note Date & Type Note Facility 06-28-2025 Note [place] [facility] Petrona Juarez is a 85 y.o. year old female patient being seen for a 1 year follow up with recent Echo. Patient states she feels pretty good just tired. Patient denies chest pain,palpitations/racing heart, dizziness/lightheadedness. Patient complains of SOB, BOURGEOIS, leg swelling, bruising/bleeding/discoloration, and loss of balance. Patient Active Problem List Diagnosis Atrial fibrillation ([facility]/HCC) Essential hypertension Hyperlipidemia Gastroesophageal reflux disease Mitral valve disorder Pulmonary hypertension (CMS/HCC) Renal failure syndrome CHF (congestive heart failure) ([facility]) Chronic kidney disease Gout Abnormal result [...] Musculoskeletal: Positive for (more content not included)... [facility] Summary Purpose Family History No [...] DATE CREATED AUTHOR AUTHOR'S ORGANIZ ATION 07/05/2022 [facility] DATE CREATED AUTHOR AUTHOR'S ORGANIZ ATION 03/23/2023 [facility] DATE CREATED AUTHOR AUTHOR'S ORGANIZ ATION 08/06/2025 [facility] FOR RECORDS PERTAINING TO PATIENTS [...] BE BASED ON THE PRIMARY CLINICAL RECORDS. [facility]. provides no warranty or guarantee of the accuracy or completeness of information in this document.
[2025-08-17 05:37] LABS: Hematocrit 28.3 % (36.0-48.0); Hemoglobin 8.7 g/dL (12.0-16.0); Mean Corpuscular HGB Conc 30.7 g/dL (29.9-35.2); Mean Corpuscular Hemoglobin 26.9 pg (26.7-34.0); Mean Corpuscular Volume 87.6 fL (81.0-99.0); Platelet Count 176 10^3/uL (150-450); Red Blood Count 3.23 10^6/uL (4.20-5.40); White Blood Count 2.6 10^3/uL (4.0-11.0)
[2025-08-17 06:05] LABS: Alanine Aminotransferase 25 U/L (14-59); Albumin Globulin Ratio 0.8; Albumin Level 3.1 g/dL (3.4-5.0); Alkaline Phosphatase 68 U/L (46-116); Anion Gap 17.7; Aspartate Amino Transferase 20 U/L (15-37); Blood Urea Nitrogen 47.0 mg/dL (7.0-18.0); Calcium 8.4 mg/dL (8.5-10.1); Carbon Dioxide 24.0 mmol/L (21.0-32.0); Chloride 104 mmol/L (98-107); Estimated GFR (African America 27 (>=60 mL/min/1.73m^2); Estimated GFR (Non-African Ame 22 (>=60 mL/min/1.73m^2); Globulin 3.9 g/dL; Glucose 150 mg/dL (74-106); Magnesium 2.6 mg/dL (1.8-2.4); Potassium 4.7 mmol/L (3.5-5.1); Sodium 141 mmol/L (136-145); Total Protein 7.0 g/dL (6.4-8.2)
[2025-08-17 06:08] LABS: Atypical Lymphocytes % Manual 1.0 %; Atypical Lymphocytes Abs Man 0.02; Band Neutrophils Absolute 0.0 10^3/uL (0.0-0.3); Basophils Abs Manual 0.00 10^3/uL (0.00-0.10); Basophils Percent Manual 0.0 % (0.2-2.0); Eosinophils Absolute Manual 0.00 10^3/uL (0.00-0.70); Eosinophils Percent Manual 0.0 % (0.9-7.0); Hypochromasia 1+; Lymphocytes Absolute Manual 0.31 10^3/uL (1.20-3.80); Lymphocytes Percent Manual 12.0 % (20.5-60.0); Metamyelocytes Absolute Manual 0.02; Monocytes Absolute Manual 0.00 10^3/uL (0.30-0.80); Monocytes Percent Manual 0.0 % (1.7-12.0); Poikilocytosis 1+; Promyelocytes % Manual 1.0; Promyelocytes Absolute Manual 0.02; Segmented Neut Absolute Manual 2.10 10^3/uL (1.4-6.5); Segmented Neutrophils % Manual 81.0 (43.0-75.0)
[2025-08-17 06:26] LABS: Prothrombin Time 50.8 sec (9.0-11.6)
[2025-08-17 06:27] LABS: INR 5.69
--- NOTE | 2025-08-17 07:00 | ECG_ITS ---
[facility] Test Date: 2025-08-17 Pat Name: FABY JUAREZ Department: Room: 2031 Gender: Female Gear Nicker: : 1940 Requested By: [id number] Order Number: [id number] Reading MD: COY HERNANDEZ Measurements Intervals Mcgrady Rate: 67 P: IN: QRS: 85 QRSD: 102 T: 46 QT: 417 QTc: 441 Interpretive Statements ATRIAL FIBRILLATION INDETERMINATE AXIS NONSPECIFIC T-WAVE ABNORMALITY ABNORMAL RHYTHM ECG INTERPRETATION BASED ON A DEFAULT AGE OF 40 YEARS Compared to ECG 08/16/2025 21:00:22 Indeterminate axis now present T-wave abnormality now present Myocardial infarct finding no longer present Electronically Signed On 08-17-2025 12:57:57 EDT by COY HERNANDEZ
--- NOTE | 2025-08-17 10:14 | CM.NOTE ---
Rounds made with Dr. Pino, discussed with pt plan of care and reason for admission. Pt placed in inpatient status.
--- NOTE | 2025-08-17 11:35 | SWNOTE1 ---
Important Message from Medicare reviewed and discussed with patient. Pt. verbalized understanding and signed the form. Original given to patient and copy placed in patient?s chart.
--- NOTE | 2025-08-17 11:35 | SWNOTE1 ---
NIXON met with pt and daughter in room. Pt lives with her daughter. She does have walker and cane at home if needed. It is a 1 story home. Pt does not have any services coming in at this time. Pt is on 4 liters of oxygen at this time and no oxygen at home. Pt and daughter spoke about her CHF. Last time she was in hospital for CHF was 10 years ago and she was transferred and she lost 40 pounds of fluid/water weight. She voiced she is doing well at home and daughter is in agreement. SW did let them know recommendations of home health services. Pt is familiar with home health because her had it. Pt and daughter do no feel patient needs it. Daughter will do exercises with her and pt stated she does get up and move around at home. NIXON did advise it would only be a short time just to make sure she transitions to home alright. At this time pt and daughter do not want home health services. NIXON did advise if she gets home and decides she wants it, her PCP can set it up. They voiced understanding.
--- NOTE | 2025-08-17 13:51 | PM.HP ---
HPI H&P: HPI History of Present Illness Chief complaint: Shortness of Breath, CHF Narrative: Mrs. Kay is an 85-year-old female with a history of pulm hypertension and diastolic heart failure as well as CKD. Patient came in with shortness of breath and dyspnea on exertion. She was found to have hypoxic respiratory failure. Saturation was down to the 70s yesterday requiring oxygen supplementation. Elevated BNP and chest x-ray suggestive of fluid overload. No chest pain. No fever or chills. No cough or congestion. Patient is not on oxygen. Opioid HPI Opioid Management Most Recent Pain and Opioid Data: Last Pain Assessment Today, 02:00 Last ORT Total Score 0 Today, 01:16 Last ORT Risk Category Low Risk Today, 01:16 Review of Systems ROS Status of ROS 10 or more systems reviewed and unremarkable except as noted in history and below [facility] Medical History (Updated 08/17/25 @ 13:53 by Deshaun Pino MD) Atrial fibrillation ?I48.91 - Unspecified atrial fibrillation (ICD-10) Gout ?M10.9 - Gout, unspecified (ICD-10) Pulmonary HTN ?I27.20 - Pulmonary hypertension, unspecified (ICD-10) Hypercholesterolemia ?E78.00 - Pure hypercholesterolemia, unspecified (ICD-10) Dysrhythmia ?I49.9 - Cardiac arrhythmia, unspecified (ICD-10) HTN (hypertension) ?I10 - Essential (primary) hypertension (ICD-10) CHF (congestive heart failure) ?I50.9 - Heart failure, unspecified (ICD-10) Family History (Updated 08/17/25 @ 01:03 by Susan Hamm) Other Family history of CHF (congestive heart failure) Family history of cancer Family history of hypertension Family history of myocardial infarction Social History (Updated 08/17/25 @ 01:04 by Susan Hamm) Within the past year, how often did you have a drink containing alcohol: never Score interpretation: A score less than 3 is consistent with normal alcohol consumption. Smoking status: Never smoker Non-prescribed substance use: denies use Previous occupational history: retired Highest level of school completed/degree received: some college, no degree Are you now , , , , never or living with a partner: In a typical week, how many times do you talk on the telephone with family, friends, or neighbors: 3 or more times per week How often do you get together with friends or relatives: 3 or more times per week Little interest or pleasure in doing things: not at all Feeling down, depressed, or hopeless: not at all Feel stressed/tense/nervous/anxious/difficulty sleeping: not at all Do you think of yourself as: straight/heterosexual Gender Identity: female Meds Home Medications and Allergies Home Medications ?Medication ?Instructions ?Recorded ?Confirmed ?Type albuterol sulfate 90 mcg/actuation 1 inh inhalation Q4H PRN shortness 08/17/25 08/17/25 History aerosol inhaler of breath or wheezing alendronate 70 mg tablet 70 mg PO .once weekly 08/17/25 08/17/25 History allopurinol 100 mg tablet 100 mg PO DAILY 08/17/25 08/17/25 History alprazolam 0.25 mg tablet 0.25 mg PO BID PRN anxiety 08/17/25 08/17/25 History amlodipine 10 mg tablet 10 mg PO DAILY 08/17/25 08/17/25 History amoxicillin 875 mg-potassium 1 tab PO Q12H 08/17/25 08/17/25 History clavulanate 125 mg tablet aspirin 81 mg tablet,delayed 81 mg PO DAILY 08/17/25 08/17/25 History release (Adult Aspirin Regimen) citalopram 40 mg tablet 40 mg PO DAILY 08/17/25 08/17/25 History furosemide 40 mg tablet 80 mg PO DAILY 08/17/25 08/17/25 History lansoprazole 30 mg capsule,delayed 30 mg PO DAILY 08/17/25 08/17/25 History release macitentan 10 mg tablet (Opsumit) 10 mg PO DAILY 08/17/25 08/17/25 History metoprolol succinate 25 mg 12.5 mg PO DAILY 08/17/25 08/17/25 History tablet,extended release 24 hr potassium chloride 10 mEq 10 meq PO DAILY 08/17/25 08/17/25 History tablet,extended release pravastatin 20 mg tablet 20 mg PO DAILY 08/17/25 08/17/25 History sildenafil (pulm.hypertension) 20 20 mg PO Q24H 08/17/25 08/17/25 History mg tablet warfarin 5 mg tablet 5 mg PO DAILY 08/17/25 08/17/25 History Allergies Allergy/AdvReac Type Severity Reaction Status Date / Time No Known Drug Allergies Allergy Verified 08/16/25 20:58 Exam Narrative Exam Narrative: [pt is awake and alert. oriented to place, time and person, patient is instructed to Nephril appearance HEENT: [place] conjunctiva and NL buccal mucosa, bitemporal muscle wasting. Neck: Supple, no tenderness Endocrine: No Thyromegaly. Vascular: No JVD or carotid bruit. Lymphatic: No cervical lymphadenopathy. Chest: Kyphosis of the thoracic spine. Bilateral crackles. Heart IRRR, no extra sound or murmur. Abd: Soft, no tenderness, no rebound and no rigidity. Increase abd girth therefore clinically I could not exclude the possibility of intra abd mass or organomegaly. LE: No cyanosis or clubbing, no varices or edema. Upper and lower extremities with muscle asymmetry. Neuro: A A O. Nl speech, comprehension and attention. Nl and symetrical motor and tone examination through out. []] Constitutional Vital Signs, click to edit/add: Last Vital Signs Temp 98.1 F 08/17/25 07:46 Pulse 73 08/17/25 11:57 Resp 18 08/17/25 07:46 BP 137/69 08/17/25 07:46 Pulse Ox 93 L 08/17/25 13:26 O2 Del Method Nasal Cannula 08/17/25 13:26 O2 Flow Rate 4 08/17/25 13:26 Results Labs Labs: Short CBC 08/16/25 08/17/25 Range/Units 21:07 05:12 WBC 5.8 2.6 L (4.0-11.0) 10^3/uL Hgb 10.3 L 8.7 L (12.0-16.0) g/dL Hct 32.2 L 28.3 L (36.0-48.0) % Plt Count 201 176 (150-450) 10^3/uL BMP 08/16/25 08/17/25 21:07 05:12 Sodium 140 141 Potassium 4.6 4.7 Chloride 103 104 Carbon Dioxide 23.4 24.0 BUN 44.0 H 47.0 H Creatinine 2.35 H 2.13 H Glucose 207 H 150 H Calcium 8.5 8.4 L Liver Function 08/17/25 Range/Units 05:12 Total Bilirubin 0.4 (0.2-1.0) mg/dL AST 20 (15-37) U/L ALT 25 (14-59) U/L Alkaline Phosphatase 68 (46-116) U/L Albumin 3.1 L (3.4-5.0) g/dL Assessment and Plan Assessment and Plan (1) Acute diastolic heart failure: (2) Acute hypoxic respiratory failure: Plan Acute diastolic heart failure. Acute hypoxic respiratory failure. Saturation down to the 70s percent on room air on presentation associated with tachypnea, respiratory distress and using accessory muscles. Acute pulmonary edema Severe pulmonary hypertension. Mitral regurgitation and mitral stenosis Chronic atrial fibrillation. Rate control Stage IV CKD Patient had an echocardiogram 2 months ago which showed diastolic heart failure, mild aortic stenosis, mild mitral regurgitation and severe pulmonary hypertension. Right ventricular pressure is 96 I started patient on Lasix intravenously. Input and output measurement Hold amlodipine due to softer blood pressure and that this will offer additional removal of volume. Continue metoprolol. Continue pulm hypertension medication Stage IV CKD. Near baseline. Continue diuresis to achieve euvolemic state. Hypercoagulable state. INR is 5.7. Hold Coumadin. No evidence of active bleed. Just Coumadin dose to keep INR between 2 and 3 Cachexia, frailty, muscular skin atrophy, moderate protein calorie mentation Start patient on oral protein supplementation. Cachexia likely secondary to pulmonary hypertension Additional cachexia and weight loss investigation may be needed to rule out underlying malignancy. This may include but not limited to needing to have breast exam, mammogram, pelvic exam, colonoscopy, EGD and other age-appropriate cancer screening to be addressed by PCP. Anemia, no evidence of acute blood loss. This could be related to CKD. Check iron, ferritin, B12 and folate. Patient may qualify for erythropoietin injection Patient will likely require to have anemia workup to be done in the outpatient setting to be handled by PCP in collaboration with other needed outpatient providers. This may include but not limited to EGD, colonoscopy, referral to see hematology and other needed age-appropriate cancer screening. Chronic, subacute medical conditions not listed above, abnormal labs and imaging. These would need to be addressed. Could be addressed later on or in the outpatient setting by PCP collaboration with other needed outpatient providers when time and condition are appropriate. Overall patient has poor prognosis given her cardiopulmonary renal disease in the setting of declining functional and nutritional status. Will need to discuss goals of care and CODE STATUS. Patient is at risk having sudden or accelerated decline in organ function.
[2025-08-17 14:46] LABS: Glucose Urine UA NEGATIVE (NEGATIVE)
[2025-08-17 14:53] LABS: Cast Seen? NONE SEEN #/LPF (NONE SEEN); Crystals Seen? None Seen #/HPF (None Seen); Urine Culture Indicated NO
[2025-08-17] MEDS: SILDENAFIL CITRATE 20 MG TABLET 30 MG PO ×2 (15:59→21:20)
[2025-08-17] MEDS: POTASSIUM CHLORIDE 10 MEQ ER TABLET PO (16:00)
[2025-08-17] MEDS: CITALOPRAM HYDROBROMIDE 20 MG TABLET PO (16:00)
[2025-08-17] MEDS: METOPROLOL SUCCINATE 25 MG TAB.ER.24H 12.5 MG PO (16:00)
[2025-08-17] MEDS: ALLOPURINOL 100 MG TABLET PO (16:00)
[2025-08-17] MEDS: ASPIRIN 81 MG TAB.CHEW PO (16:00)
[2025-08-17] MEDS: PANTOPRAZOLE SODIUM 40 MG TABLET.DR PO (16:00)
[2025-08-17] MEDS: ATORVASTATIN CALCIUM 10 MG TABLET PO (16:01)
[2025-08-17] MEDS: FUROSEMIDE 40 MG/4 ML VIAL IVP ×2 (16:01→21:20)
[2025-08-17] MEDS: ENSURE HP 237 ML LIQUID PO (21:19)
[2025-08-18] VITALS (18 sets, daily range): BP systolic 106–127; BP diastolic 47–64; PULSE 57–79; TEMP 36.6–37.1; O2SAT 90–91
[2025-08-18] MEDS: SILDENAFIL CITRATE 20 MG TABLET 30 MG PO ×3 (05:43→21:30)
[2025-08-18] MEDS: PANTOPRAZOLE SODIUM 40 MG TABLET.DR PO (05:43)
[2025-08-18 05:48] LABS: Hematocrit 26.2 % (36.0-48.0); Hemoglobin 8.1 g/dL (12.0-16.0); Mean Corpuscular HGB Conc 30.9 g/dL (29.9-35.2); Mean Corpuscular Hemoglobin 26.7 pg (26.7-34.0); Mean Corpuscular Volume 86.5 fL (81.0-99.0); Platelet Count 176 10^3/uL (150-450); Red Blood Count 3.03 10^6/uL (4.20-5.40); White Blood Count 6.7 10^3/uL (4.0-11.0)
[2025-08-18 06:14] LABS: Prothrombin Time 38.2 sec (9.0-11.6)
[2025-08-18 06:16] LABS: Anion Gap 15.2; Blood Urea Nitrogen 64.0 mg/dL (7.0-18.0); Calcium 8.2 mg/dL (8.5-10.1); Carbon Dioxide 26.0 mmol/L (21.0-32.0); Chloride 103 mmol/L (98-107); Estimated GFR (African America 27 (>=60 mL/min/1.73m^2); Estimated GFR (Non-African Ame 22 (>=60 mL/min/1.73m^2); Glucose 87 mg/dL (74-106); Potassium 4.2 mmol/L (3.5-5.1); Sodium 140 mmol/L (136-145)
[2025-08-18 06:27] LABS: NT Pro B Type Natriuretic Pept 5413.0 pg/mL (<=1800.0)
[2025-08-18 06:28] LABS: INR 4.15
[2025-08-18 06:29] LABS: Ferritin 36.0 ng/mL (8.0-252.0); Iron 32.0 ug/dL (50.0-170.0); Percent Iron Saturation 14.2 %; Total Iron Binding Capacity 225.0 ug/dL (250.0-450.0)
--- NOTE | 2025-08-18 08:27 | W.ACP ---
Advance Care Planning Advance Care Planning Discussion Advance care planning discussion summary: Advance care planning and goals of care discussion. Patient has severe pulmonary hypertension, diastolic heart failure and stage IV kidney failure in the setting of declining nutritional and functional status. Patient is very cachectic. Could be related to pulmonary disease. Patient gave me permission to proceed with conversation lasted for about 60 minutes I explained in simple terms the process of CPR including chest compressions, shocks, intubation life support. Patient is able to understand conversation very well. Able to understand options, benefit, risk, life and situation. Patient clearly stated in simple terms that she does not want any resuscitative effort. Patient does not want any shocks, intubation or placed on the machine. Her wishes are consistent with the CCA status Change CODE STATUS accordingly.
--- NOTE | 2025-08-18 08:40 | P.PN_ITS ---
Progress Note: Subjective Subjective Interval history: Patient is feeling better. Less shortness of breath. No chest pain. No abdominal pain. Patient continues to be hypoxic. 90% on 2 L. Patient does not have oxygen at home. Exam Narrative Exam Narrative: [pt is awake and alert. oriented to place, time and person, patient is cachectic and frail in appearance HEENT: [place] conjunctiva and NL buccal mucosa, bitemporal muscle wasting. Neck: Supple, no tenderness Endocrine: No Thyromegaly. Vascular: No JVD or carotid bruit. Lymphatic: No cervical lymphadenopathy. Chest: Kyphosis of the thoracic spine. Bilateral crackles. Heart IRRR, no extra sound or murmur. Abd: Soft, no tenderness, no rebound and no rigidity. Increase abd girth therefore clinically I could not exclude the possibility of intra abd mass or organomegaly. LE: No cyanosis or clubbing, no varices or edema. Upper and lower extremities with muscle asymmetry. Neuro: A A O. Nl speech, comprehension and attention. Nl and symetrical motor and tone examination through out. []] Constitutional Vital Signs, click to edit/add: Last Vital Signs Temp 97.8 F 08/18/25 04:00 Pulse 63 08/18/25 08:00 Resp 20 08/18/25 04:00 BP 106/47 L 08/18/25 04:00 Pulse Ox 90 L 08/18/25 04:00 O2 Del Method Nasal Cannula 08/18/25 04:00 O2 Flow Rate 2 08/18/25 04:00 Progress Note: Objective Labs Labs: Short CBC 08/18/25 Range/Units 04:56 WBC 6.7 (4.0-11.0) 10^3/uL Hgb 8.1 L (12.0-16.0) g/dL Hct 26.2 L (36.0-48.0) % Plt Count 176 (150-450) 10^3/uL BMP 08/18/25 04:56 Sodium 140 Potassium 4.2 Chloride 103 Carbon Dioxide 26.0 BUN 64.0 H Creatinine 2.09 H Glucose 87 Calcium 8.2 L Urine 08/16/25 Range/Units 14:30 Urine Color Lt. yellow (YELLOW) Urine Clarity Clear (CLEAR) Urine pH 5.5 (5.0-9.0) Ur Specific [place] 1.010 (1.005-1.025) Urine Protein Negative (NEG/TRACE) mg/dL Urine Glucose (UA) Negative (NEGATIVE) mg/dL Progress Note: A&P Assessment and Plan (1) Acute diastolic heart failure: (2) Acute hypoxic respiratory failure: Plan Acute diastolic heart failure. Acute hypoxic respiratory failure. Saturation down to the 70s percent on room air on presentation associated with tachypnea, respiratory distress and using ac cessory muscles. Acute pulmonary edema Severe pulmonary hypertension. Right ventricular pressure is 96 Mitral regurgitation and mitral stenosis Chronic atrial fibrillation. Rate control Stage IV CKD Patient had an echocardiogram 2 months ago which showed diastolic heart failure, mild aortic stenosis, mild mitral regurgitation and severe pulmonary hypertension. Right ventricular pressure is 96 I started patient on Lasix intravenously. Continue gentle diuresis. Patient is this for 2 L negative balance Input and output measurement Hold amlodipine due to softer blood pressure and that this will offer additional removal of volume. Continue metoprolol. Continue pulm hypertension medication Stage IV CKD. Near baseline. Continue diuresis to achieve euvolemic state. Hypercoagulable state. INR is 5.7. Hold Coumadin. No evidence of active bleed. Just Coumadin dose to keep INR between 2 and 3 Cachexia, frailty, muscular skin atrophy, moderate protein calorie mentation Continue oral protein supplementation. Cachexia likely secondary to pulmonary hypertension Additional cachexia and weight loss investigation may be needed to rule out underlying malignancy. This may include but not limited to needing to have breast exam, mammogram, pelvic exam, colonoscopy, EGD and other age-appropriate cancer screening to be addressed by PCP. Anemia, no evidence of acute blood loss. This could be related to CKD. Check iron, ferritin, B12 and folate. Patient may qualify for erythropoietin i njection Hemoglobin dropped to 8.1. No active bleed. Iron studies consistent with anemia of chronic disease. Could be mixed etiology with iron deficiency. I started patient on iron supplementation. 1 dose of erythropoietin tomorrow. Patient will likely require to have anemia workup to be done in the outpatient setting to be handled by PCP in collaboration with other needed outpatient providers. This may include but not limited to EGD, colonoscopy, referral to see hematology and other needed age-appropriate cancer screening. Chronic, subacute medical conditions not listed above, abnormal labs and imaging. These would need to be addressed. Could be addressed later on or in the outpatient setting by PCP collaboration with other needed outpatient pro viders when time and condition are appropriate. Overall patient has poor prognosis given her cardiopulmonary renal disease in the setting of declining functional and nutritional status. Will need to discuss goals of care and CODE STATUS. Patient is at risk having sudden or accelerated decline in organ function. Goals of care discussion took place on a separate note.
[2025-08-18] MEDS: ATORVASTATIN CALCIUM 10 MG TABLET PO (09:17)
[2025-08-18] MEDS: ALBUMIN HUMAN 25 GM/100 ML PREMIX IV (09:17)
[2025-08-18] MEDS: ALLOPURINOL 100 MG TABLET PO (09:17)
[2025-08-18] MEDS: ENSURE HP 237 ML LIQUID PO ×2 (09:17→21:30)
[2025-08-18] MEDS: CITALOPRAM HYDROBROMIDE 20 MG TABLET PO (09:18)
[2025-08-18] MEDS: POTASSIUM CHLORIDE 10 MEQ ER TABLET PO (09:18)
[2025-08-18] MEDS: METOPROLOL SUCCINATE 25 MG TAB.ER.24H 12.5 MG PO (09:18)
[2025-08-18] MEDS: ASPIRIN 81 MG TAB.CHEW PO (09:18)
[2025-08-18] MEDS: FUROSEMIDE 20 MG/2 ML VIAL IVP ×3 (09:18→23:31)
--- NOTE | 2025-08-18 09:32 | CM.NOTE ---
Rounds made with . Pt remains on . Pt to have walk study prior to discharge.
[2025-08-18] MEDS: IRON SUCROSE COMPLEX 100 MG in 0.9 % SODIUM CHLORIDE 100 ML 420 MG IV (10:32)
--- NOTE | 2025-08-18 14:33 | SWNOTE1 ---
SW stopped in and spoke with pt and daughter. Pt was just washed up and voiced she is feeling better today. Pt is still on oxygen. Pt is hopeful for discharge tomorrow. At this time they do not feel pt will need home health services. They are hopeful pt will qualify for home oxygen. SW did explain she will likely need a walk test done before discharge and this will show if she qualifies for home oxygen. They did voice understanding. SW to follow up with pt and daughter tomorrow.
[2025-08-18 17:21] LABS: Folate 7.50 ng/mL (8.60-58.90)
[2025-08-19] VITALS (22 sets, daily range): BP systolic 118–134; BP diastolic 54–64; PULSE 61–73; TEMP 36.6–37.3; O2SAT 71–93
[2025-08-19 05:22] LABS: Hematocrit 25.5 % (36.0-48.0); Hemoglobin 7.9 g/dL (12.0-16.0); Mean Corpuscular HGB Conc 31.0 g/dL (29.9-35.2); Mean Corpuscular Hemoglobin 27.4 pg (26.7-34.0); Mean Corpuscular Volume 88.5 fL (81.0-99.0); Platelet Count 162 10^3/uL (150-450); Red Blood Count 2.88 10^6/uL (4.20-5.40); White Blood Count 6.0 10^3/uL (4.0-11.0)
[2025-08-19 05:32] LABS: Anion Gap 14.0; Blood Urea Nitrogen 70.0 mg/dL (7.0-18.0); Calcium 8.2 mg/dL (8.5-10.1); Carbon Dioxide 27.0 mmol/L (21.0-32.0); Chloride 105 mmol/L (98-107); Estimated GFR (African America 29 (>=60 mL/min/1.73m^2); Estimated GFR (Non-African Ame 24 (>=60 mL/min/1.73m^2); Glucose 101 mg/dL (74-106); Potassium 4.0 mmol/L (3.5-5.1); Sodium 142 mmol/L (136-145)
[2025-08-19] MEDS: PANTOPRAZOLE SODIUM 40 MG TABLET.DR PO (05:41)
[2025-08-19 05:42] LABS: INR 1.96; Prothrombin Time 19.4 sec (9.0-11.6)
[2025-08-19] MEDS: SILDENAFIL CITRATE 20 MG TABLET 30 MG PO ×3 (05:42→21:17)
[2025-08-19 07:07] LABS: Vitamin B12 308 pg/mL (232-1245)
--- NOTE | 2025-08-19 07:33 | XR_ITS ---
The [address] [address] Patient Name: FABY JUAREZ MRN: [id number] date: 1940 Sex: F Assigned Patient Location: Current Patient Location: Accession/Order Number: [id number] Exam Date: 08/19/2025 07:45 Report Date: 08/19/2025 08:11 At the request of: BJ ALVAREZ MD Procedure: XR chest 1V PORTABLE AP ERECT CHEST 0728 hours CLINICAL HISTORY: Follow-up failure COMPARISON: 08/16/2025 The cardiac silhouette remains enlarged. There is still increase in interstitial markings. There may be minimal scarring or atelectasis. Pleural parenchymal opacity at the left base on the prior appears to have improved since the hemidiaphragm is now partially visualized. No pneumothorax is noted. The bony structures are osteopenic. There is endplate spurring at the spine. XR/XR chest 1V IMPRESSION: CONTINUED CARDIOMEGALY AND INTERSTITIAL CHANGES SUGGESTING FAILURE. IMPROVING LEFT BASILAR PLEURAL PARENCHYMAL CHANGE. Impression dictated by: Allie Gonzales M.D. 08/19/2025 8:11 AM Dictation Location: [place] [address] Electronically authenticated by: [id number] Y Date: 08/19/2025 08:11
--- NOTE | 2025-08-19 08:56 | PM.PN ---
Progress Note: Subjective Subjective Interval history: Patient is feeling better. Less shortness of breath. No chest pain. No abdominal pain. Patient continues to be hypoxic. 93% on 2 L. Patient does not have oxygen at home. Exam Narrative Exam Narrative: [pt is awake and alert. oriented to place, time and person, patient is cachectic and frail in appearance HEENT: [employer] conjunctiva and NL buccal mucosa, bitemporal muscle wasting. Neck: Supple, no tenderness Endocrine: No Thyromegaly. Vascular: No JVD or carotid bruit. Lymphatic: No cervical lymphadenopathy. Chest: Kyphosis of the thoracic spine. Bilateral crackles had resolved. Heart IRRR, no extra sound or murmur. Abd: Soft, no tenderness, no rebound and no rigidity. Increase abd girth therefore clinically I could not exclude the possibility of intra abd mass or organomegaly. LE: No cyanosis or clubbing, no varices or edema. Upper and lower extremities with muscle asymmetry. Neuro: A A O. Nl speech, comprehension and attention. Nl and symetrical motor and tone examination through out. []] Constitutional Vital Signs, click to edit/add: Last Vital Signs Temp 97.9 F 08/19/25 07:12 Pulse 64 08/19/25 07:57 Resp 18 08/19/25 07:12 BP 134/64 08/19/25 07:12 Pulse Ox 93 L 08/19/25 08:52 O2 Del Method Nasal Cannula 08/19/25 08:52 O2 Flow Rate 2 08/19/25 07:12 Progress Note: Objective Labs Labs: Short CBC 08/19/25 Range/Units 05:06 WBC 6.0 (4.0-11.0) 10^3/uL Hgb 7.9 L (12.0-16.0) g/dL Hct 25.5 L (36.0-48.0) % Plt Count 162 (150-450) 10^3/uL BMP 08/19/25 05:06 Sodium 142 Potassium 4.0 Chloride 105 Carbon Dioxide 27.0 BUN 70.0 H Creatinine 1.95 H Glucose 101 Calcium 8.2 L Progress Note: A&P Assessment and Plan (1) Acute diastolic heart failure: (2) Acute hypoxic respiratory failure: Plan Acute diastolic heart failure. Acute hypoxic respiratory failure. Saturation down to the 70s percent on room air on presentation associated with tachypnea, respiratory distress and using accessory muscles. Acute pulmonary edema Severe pulmonary hypertension. Right ventricular pressure is 96 Mitral regurgitation and mitral stenosis Chronic atrial fibrillation. Rate control Stage IV CKD Patient had an echocardiogram 2 months ago which showed diastolic heart failure, mild aortic stenosis, mild mitral regurgitation and severe pulmonary hypertension. Right ventricular pressure is 96 I started patient on Lasix intravenously. Continue gentle diuresis. Patient is this for 3 L negative balance Input and output measurement Hold amlodipine due to softer blood pressure and that this will offer additional removal of volume. Continue metoprolol. Continue pulm hypertension medication Patient does not like Coumadin. Her INR was significantly elevated on admission. Patient does not want and does not like Coumadin PT and INR check. I talked her about Eliquis. I explained difference. She is in agreement. Patient will be started on Eliquis 2.5 mg twice a day and that dose is adjusted due to age above 80 and creatinine above 1.5. Stage IV CKD. Near baseline. Continue diuresis to achieve euvolemic state. Hypercoagulable state. INR is 5.7. Hold Coumadin. No evidence of active bleed. Patient will be started on Eliquis 2.5 mg twice a day as listed above Cachexia, frailty, muscular skin atrophy, moderate protein calorie mentation Continue oral protein supplementation. Cachexia likely secondary to pulmonary hypertension Additional cachexia and weight loss investigation may be needed to rule out underlying malignancy. This may include but not limited to needing to have breast exam, mammogram, pelvic exam, colonoscopy, EGD and other age-appropriate cancer screening to be addressed by PCP. Anemia, no evidence of acute blood loss. This could be related to CKD. Check iron, ferritin, B12 and folate. Patient may qualify for erythropoietin injection Hemoglobin dropped to 8.1. No active bleed. Iron studies consistent with anemia of chronic disease. Could be mixed etiology with iron deficiency. I started patient on iron supplementation. 1 dose of erythropoietin tomorrow. Patient will likely require to have anemia workup to be done in the outpatient setting to be handled by PCP in collaboration with other needed outpatient providers. This may include but not limited to EGD, colonoscopy, referral to see hematology and other needed age-appropriate cancer screening. Chronic, subacute medical conditions not listed above, abnormal labs and imaging. These would need to be addressed. Could be addressed later on or in the outpatient setting by PCP collaboration with other needed outpatient providers when time and condition are appropriate. Overall patient has poor prognosis given her cardiopulmonary renal disease in the setting of declining functional and nutritional status. Patient is at risk having sudden or accelerated decline in organ function. Patient is DNR CCA
--- NOTE | 2025-08-19 09:00 | CM.NOTE ---
Rounds made with Dr. Pino, no discharge today. Pt is still requiring oxygen, pt will need walk test at discharge. RN will attempt to wean oxygen as patient tolerates.
[2025-08-19] MEDS: FUROSEMIDE 20 MG/2 ML VIAL IVP ×3 (09:07→20:08)
[2025-08-19] MEDS: ATORVASTATIN CALCIUM 10 MG TABLET PO (09:07)
[2025-08-19] MEDS: POTASSIUM CHLORIDE 10 MEQ ER TABLET PO (09:07)
[2025-08-19] MEDS: ALLOPURINOL 100 MG TABLET PO (09:07)
[2025-08-19] MEDS: ENSURE HP 237 ML LIQUID PO ×2 (09:07→20:07)
[2025-08-19] MEDS: CITALOPRAM HYDROBROMIDE 20 MG TABLET PO (09:07)
[2025-08-19] MEDS: ASPIRIN 81 MG TAB.CHEW PO (09:07)
[2025-08-19] MEDS: FOLIC ACID 50 MG/10 ML VIAL IVP (09:08)
[2025-08-19] MEDS: METOPROLOL SUCCINATE 25 MG TAB.ER.24H 12.5 MG PO (09:08)
[2025-08-19] MEDS: IRON SUCROSE COMPLEX 100 MG in 0.9 % SODIUM CHLORIDE 100 ML 420 MG IV (09:09)
[2025-08-19] MEDS: EPOETIN ALFA 20,000 UNIT/2 ML VIAL 20000 UNIT SUBQ (09:19)
[2025-08-19] MEDS: APIXABAN 5 MG TABLET 2.5 MG PO ×2 (09:24→20:07)
[2025-08-19] MEDS: CYANOCOBALAMIN 1,000 MCG/ML VIAL 1000 MCG IM (09:24)
--- NOTE | 2025-08-19 15:10 | SWNOTE1 ---
SW stopped in and spoke with pt. Pt voiced she was feeling better. She is hoping maybe discharge tomorrow and hoping she does qualify for home oxygen. SW did let pt know that SW will be back in tomorrow to discuss home oxygen in more detail once pt has walk test and if she qualifies. SW did offer home health services, therapy, for a short time to assist with transition back home. Pt again voiced she does not feel she needs it. Pt is refusing home health services.
[2025-08-20] VITALS (14 sets, daily range): BP systolic 150–152; BP diastolic 69–75; PULSE 60–75; TEMP 36.6–36.8; O2SAT 86–95
[2025-08-20] MEDS: PANTOPRAZOLE SODIUM 40 MG TABLET.DR PO (05:55)
[2025-08-20 06:16] LABS: Anion Gap 13.6; Blood Urea Nitrogen 68.0 mg/dL (7.0-18.0); Calcium 8.3 mg/dL (8.5-10.1); Carbon Dioxide 27.6 mmol/L (21.0-32.0); Chloride 107 mmol/L (98-107); Estimated GFR (African America 32 (>=60 mL/min/1.73m^2); Estimated GFR (Non-African Ame 26 (>=60 mL/min/1.73m^2); Glucose 117 mg/dL (74-106); Potassium 4.2 mmol/L (3.5-5.1); Sodium 144 mmol/L (136-145)
--- NOTE | 2025-08-20 07:10 | CM.NOTE ---
Rounds made with Dr. Pino, pt will discharge to home. Pt will f/u with PCP and Cardiology. Pt will stop Coumadin and start Eliquis for home medication.
--- NOTE | 2025-08-20 07:35 | PM.DS1 ---
DS: Providers Provider Date of admission: 08/17/25 08:31 Primary care physician: Yoel Rizvi MD Consults: 08/16/25 23:43 Occupational Therapy Eval and Treat Routine Reason for consultation: Weakness Physical Therapy Eval and Treat Routine Reason for consultation: Weakness DS: Diagnosis Discharge Diagnosis (1) Acute diastolic heart failure: (2) Acute hypoxic respiratory failure: Plan As listed above, below and others that are not listed DS: Summary Hospital Course Hospital Course: Mrs. Kay is an 85-year-old female who came in with shortness of breath and was found to have the following: Acute diastolic heart failure. Acute hypoxic respiratory failure. Saturation down to the 70s percent on room air on presentation associated with tachypnea, respiratory distress and using accessory muscles. Acute pulmonary edema Severe pulmonary hypertension. Right ventricular pressure is 96 Mitral regurgitation and mitral stenosis Chronic atrial fibrillation. Rate control Stage IV CKD Patient had an echocardiogram 2 months ago which showed diastolic heart failure, mild aortic stenosis, mild mitral regurgitation and severe pulmonary hypertension. Right ventricular pressure is 96 I started patient on Lasix intravenously. Continue gentle diuresis. Patient is this for 5 L negative balance Input and output measurement Hold amlodipine due to softer blood pressure and that this will offer additional removal of volume. Amlodipine will be resumed due to improvement of her blood pressure Continue metoprolol. Continue pulm hypertension medication Patient does not like Coumadin. Her INR was significantly elevated on admission. Patient does not want and does not like Coumadin PT and INR check. I talked her about Eliquis. I explained difference. She is in agreement. Patient will be started on Eliquis 2.5 mg twice a day and that dose is adjusted due to age above 80 and creatinine above 1.5. I offered the patient to follow-up with pulmonary regarding pulm hypertension. She declined. She stated that Dr. Rizvi and Babita are managing that. I will arrange for home oxygen. Stage IV CKD. Near baseline. Continue diuresis to achieve euvolemic state. Not surprisingly, despite removing 5 L out of her system, her creatinine is improving compared to presentation. I recommended the patient to follow-up with nephrology. She declined. She stated that her Dr. Rizvi monitors her kidney function which I believe is appropriate. Hypercoagulable state. INR is 5.7. Hold Coumadin. No evidence of active bleed. Patient will be started on Eliquis 2.5 mg twice a day as listed above Cachexia, frailty, muscular skin atrophy, moderate protein calorie mentation Continue oral protein supplementation. Cachexia likely secondary to pulmonary hypertension Additional cachexia and weight loss investigation may be needed to rule out underlying malignancy. This may include but not limited to needing to have breast exam, mammogram, pelvic exam, colonoscopy, EGD and other age-appropriate cancer screening to be addressed by PCP. Anemia, no evidence of acute blood loss. This could be related to CKD. Check iron, ferritin, B12 and folate. Patient may qualify for erythropoietin injection Hemoglobin dropped to 8.1. No active bleed. Iron studies consistent with anemia of chronic disease. Could be mixed etiology with iron deficiency. I started patient on iron supplementation. 1 dose of erythropoietin given. We will arrange for patient to have erythropoietin injection. Also patient is found to have folate and B12 deficiency. Patient will be discharged home on folate and B12 supplementation. Patient will likely require to have anemia workup to be done in the outpatient setting to be handled by PCP in collaboration with other needed outpatient providers. This may include but not limited to EGD, colonoscopy, referral to see hematology and other needed age-appropriate cancer screening. Chronic, subacute medical conditions not listed above, abnormal labs and imaging. These would need to be addressed. Could be addressed later on or in the outpatient setting by PCP collaboration with other needed outpatient providers when time and condition are appropriate. Osteoporosis Patient is on bisphosphonate treatment however given her CKD stage IV would recommend to discontinue bisphosphonate treatment. Overall patient has poor prognosis given her cardiopulmonary renal disease in the setting of declining functional and nutritional status. Patient is at risk having sudden or accelerated decline in organ function. Patient is DNR CCA Patient has multiple complex medical issues as listed above and others that are not listed. All appear to be stable. Patient is doing much better. She is 5 L negative balance. Her blood pressure had improved. Her kidney function had improved. I do not have any clear or strong clinical justification to extend inpatient hospitalization. Patient however will require close and frequent monitoring as well as additional work-up, investigation and therapeutic intervention that could take place from this point on post discharge. That is to prevent relapse, decompensation, rehospitalization and other medical implications.. I instructed patient to ask her primary care doctor to obtain [facility] record entirely to address abnormalities seen on labs and imaging that I have and have not addressed during this hospitalization, follow-up on pending blood work, imaging and pathology is if available and to follow-up on needed medical care in the outpatient setting. Time Spent with Patient Time attestation: Total time spent providing and/or coordinating discharge services: Time spent: greater than 30 minutes Exam Narrative Exam Narrative: [pt is awake and alert. oriented to place, time and person, patient is cachectic and frail in appearance HEENT: [place] conjunctiva and NL buccal mucosa, bitemporal muscle wasting. Neck: Supple, no tenderness Endocrine: No Thyromegaly. Vascular: No JVD or carotid bruit. Lymphatic: No cervical lymphadenopathy. Chest: Kyphosis of the thoracic spine. Bilateral crackles had resolved. Heart IRRR, no extra sound or murmur. Abd: Soft, no tenderness, no rebound and no rigidity. Increase abd girth therefore clinically I could not exclude the possibility of intra abd mass or organomegaly. LE: No cyanosis or clubbing, no varices or edema. Upper and lower extremities with muscle asymmetry. Neuro: A A O. Nl speech, comprehension and attention. Nl and symetrical motor and tone examination through out. []] Constitutional Vital Signs, click to edit/add: Last Vital Signs Temp 98.3 F 08/20/25 03:18 Pulse 60 08/20/25 05:53 Resp 18 08/20/25 03:18 BP 150/75 H 08/20/25 03:18 Pulse Ox 95 08/20/25 05:35 O2 Del Method Nasal Cannula 08/20/25 05:35 O2 Flow Rate 2 08/20/25 05:35 DS: Data Data Completed and Pending Labs on day of discharge: Labs from last 24 hours 08/20/25 04:55 Sodium 144 Potassium 4.2 Chloride 107 Carbon Dioxide 27.6 Anion Gap 13.6 BUN 68.0 H Creatinine 1.82 H Est GFR ( Amer) 32 L Est GFR (Non-Af Amer) 26 L BUN/Creatinine Ratio 37.4 Glucose 117 H Calcium 8.3 L Discharge Plan Discharge Disposition: Home, Self-Care Discharge Medications: New folic acid 1 mg Tablet 1 mg PO QD Qty: 30 1RF Ensure Active Protein-Muscle Liquid 1 ea PO BID Qty: 5688 1RF cyanocobalamin (vitamin B-12) 500 mcg tablet 500 mcg PO DAILY Qty: 30 1RF Epogen 2,000 unit/mL solution 10,000 unit subcut QWEEK Qty: 20 0RF amlodipine 2.5 mg tablet 2.5 mg PO DAILY Qty: 30 1RF Eliquis 2.5 mg tablet 2.5 mg PO BID Qty: 60 1RF ferrous sulfate 324 mg (65 mg iron) tablet,delayed release (DR/EC) 324 mg PO BID Qty: 60 1RF Continued alprazolam 0.25 mg tablet 0.25 mg PO DAILY PRN (Reason: anxiety) albuterol sulfate 90 mcg/actuation HFA aerosol inhaler 1 inh INHALATION Q4H PRN (Reason: shortness of breath or wheezing) allopurinol 100 mg tablet 100 mg PO DAILY lansoprazole 30 mg capsule,delayed release(DR/EC) 30 mg PO DAILY metoprolol succinate 25 mg tablet extended release 24 hr 12.5 mg PO DAILY potassium chloride 10 mEq tablet extended release 10 meq PO DAILY pravastatin 20 mg tablet 20 mg PO DAILY sildenafil (pulm.hypertension) 20 mg tablet 30 mg PO Q8H Opsumit 10 mg tablet 10 mg PO DAILY aspirin 81 mg tablet,chewable 81 mg PO DAILY cholecalciferol (vitamin D3) [Vitamin D3] 50 mcg (2,000 unit) capsule 50 mcg PO DAILY Changed citalopram 40 mg tablet 20 mg PO DAILY Qty: 0 0RF furosemide 40 mg tablet 40 mg PO BID Qty: 0 0RF Discontinued alendronate 70 mg tablet 70 mg PO .once weekly amlodipine 10 mg tablet 10 mg PO DAILY warfarin 5 mg tablet 5 mg PO DAILY amoxicillin-pot clavulanate 875-125 mg tablet 1 tab PO Q12H Patient Comments: 08/16/25-08/25/25 Rx Instructions: x10 days furosemide 80 mg tablet 80 mg PO DAILY Print Language: Cymro Patient Instructions: Epoetin Morris (By injection), Amlodipine (By mouth), Folic Acid/Cyanocobalamin (By mouth), Apixaban (By mouth), Heart Failure (DC), Using Oxygen at Home (DC) Activity Restrictions/Additional Instructions: I may not have addressed or treated all of your medical illnesses or the abnormal blood work or imaging studies during this hospitalization. Please ask your primary care provider to obtain [facility] records entirely to follow up on all of the abnormal physical, laboratory, and imaging findings that I have not addressed. Please return back to the emergency room or seek medical attention if your symptoms worsen or return. For home health care nurse Please weigh patient twice a week and collaborate with PCP to adjust diuretics to keep her weight stable. BMP weekly for 4 weeks to monitor your electrolytes and kidney function. Erythropoietin, Epogen injection weekly for 4 weeks to be extended if needed to keep her hemoglobin above 9. CBC weekly for 4 weeks to monitor her hemoglobin Monitor her blood pressure every visit and adjust her blood pressure medications to keep systolic between 120 and 145 Discharging you from [facility] does not mean that your medical care ends here and now. You may still need additional monitoring, work up, investigation, and treatment plan to be handled from this point on by out patient providers including your primary care provider and specialists. For any medication question, please contact your retail pharmacist or your primary care provider. Thank you. Forms: Portal Instructions Follow Up Appointments: 08/26 @ 11:15am with Dr. Rizvi [phone]
--- NOTE | 2025-08-20 08:00 | CM.NOTE ---
CM in to speak with pt regarding HH services and need for f/u blood test and nurse to keep close eye on BP. Pt in agreement for HH services and would like CM to speak with her daughter. Called pt's daughter in also in agreement to HH services and home oxygen. Pt will go with [facility] and [facility] for oxygen need. Updated Dr. Pino. SW will send referral to both companies and initiate start of both services.
--- NOTE | 2025-08-20 08:47 | SWNOTE1 ---
See case management note. Pt and daughter now agree to home health and pt does qualify for home oxygen at 2 liters. Pt and daughter have no preference on oxygen company or home health company. Referral being sent to [facility] health and to [facility] for home oxygen.
--- NOTE | 2025-08-20 08:50 | CM.NOTE ---
Addendum entered by Юлия Preciado 08/20/25 09:14: Order for home oxygen completed and signed by Dr. Pino . Original Note: CRF completed for HH services and signed by Dr. Pino.
--- NOTE | 2025-08-20 08:50 | CM.NOTE ---
Facesheet and medical records faxed to [facility]
[2025-08-20] MEDS: IRON SUCROSE COMPLEX 100 MG in 0.9 % SODIUM CHLORIDE 100 ML 420 MG IV (09:01)
[2025-08-20] MEDS: CITALOPRAM HYDROBROMIDE 20 MG TABLET PO (09:03)
[2025-08-20] MEDS: ALLOPURINOL 100 MG TABLET PO (09:03)
[2025-08-20] MEDS: ENSURE HP 237 ML LIQUID PO (09:03)
[2025-08-20] MEDS: APIXABAN 5 MG TABLET 2.5 MG PO (09:03)
[2025-08-20] MEDS: CYANOCOBALAMIN 1,000 MCG/ML VIAL 1000 MCG IM (09:03)
[2025-08-20] MEDS: ATORVASTATIN CALCIUM 10 MG TABLET PO (09:03)
[2025-08-20] MEDS: SILDENAFIL CITRATE 20 MG TABLET 30 MG PO (09:04)
[2025-08-20] MEDS: METOPROLOL SUCCINATE 25 MG TAB.ER.24H 12.5 MG PO (09:04)
[2025-08-20] MEDS: AMLODIPINE BESYLATE 5 MG TABLET 2.5 MG PO (09:04)
[2025-08-20] MEDS: POTASSIUM CHLORIDE 10 MEQ ER TABLET PO (09:04)
[2025-08-20] MEDS: ASPIRIN 81 MG TAB.CHEW PO (09:04)
[2025-08-20] MEDS: FOLIC ACID 1 MG TABLET PO (09:04)
--- NOTE | 2025-08-20 09:36 | CM.NOTE ---
Called [facility] regarding Epogen injection weekly. Spoke with Karma, pt will have to fill prescription and then nurse can administer medication.
--- NOTE | 2025-08-20 10:27 | CM.NOTE ---
Procrit (Epoetin Morris) called into [facility] [phone].
--- NOTE | 2025-08-20 10:51 | CM.NOTE ---
I called [facility] in [place] [phone] to check on the status of the Procrit and they said they will not know if it will require prior authorization until around 2 pm this afternoon. They also informed me that they no longer fill prescriptions for Ensure and that they recommend reaching out to the insurance company to see who would be able to fill this prescription.
--- NOTE | 2025-08-20 12:41 | SWNOTE1 ---
Pt is set up with [facility], it will be nursing only. Per family request no therapy with home health. NIXON has faxed CRF, dc med rec, and dc summary to [facility]. NIXON did get confirmation from Karma at [facility] that they can accept. NIXON received a call from Amanda at [facility] and pt's oxygen is set to go. NIXON took tank to pt's room and advised pt and son to call [facility] once she arrives home so they can deliver the rest of supplies. [facility] phone number provided. They voiced understanding. Pt is going home on 2 liters oxygen continuous nasal canula.
--- NOTE | 2025-08-20 12:57 | SWNOTE1 ---
Pt's daughter in room as well during conversation about home oxygen and calling [facility] once they arrive home or leave hospital.
--- NOTE | 2025-08-20 14:31 | CM.NOTE ---
[facility] in [place] is unable to dispense the Procrit. After calling several pharmacies the Procrit was called into [facility] outpatient pharmacy. They are going to send it thru the patients insurance to make sure this is a covered medication.
--- NOTE | 2025-08-20 15:26 | CM.NOTE ---
[facility] outpatient pharmacy called to notify us that a prior authorization was required for Procrit. This process was initiated by [facility] but will need completed by us. Юлия in pharmacy was able to complete the prior authorization process on [employer] and we will have to wait for the approval before the medication can be ordered by [facility] outpatient pharmacy. The patient and her family were notified of the above. The patient was notified that we would call her when we receive a response to the prior authorization request.
--- NOTE | 2025-08-20 16:25 | CM.NOTE ---
Rubin txt sent to Dr. Rizvi about Procrit denial for patient. Pt has f/u with Dr. Rizvi next week and he will address the denial of medication.
--- NOTE | 2025-08-20 18:18 | NUTR.NU ---
PO intakes of [facility] are consistently good and appear to meet pt's estimated nutrient needs. Pt limits salt/sodium intakes. No dietary concerns at this time.
--- NOTE | 2025-08-23 14:05 | CM.DCFOLLOWU ---
Person spoke with: Inez How are you feeling? Better How is your pain? No pain Did you understand your discharge instructions? Yes Do you have any questions about your discharge instructions? No Were you given any prescriptions at discharge? Yes Were you able to get your prescriptions filled? Yes everything except the Procrit which is requiring a prior authorization Do you understand how to take your medications as ordered? Yes Do you have any questions about your follow up appointment and do you plan to keep your follow up appointment? No questions. Yes, I plan on keeping my appts. Is there anything else that you would like to discuss? No Questions/Comments/Concerns/Other:
== END 2025-08-20 15:30 | disposition home health service (06) | DRG 291 ==
LOC: ER 08-17 01:10 → MS 08-17 01:15
PROVIDERS: Admitting Provider Internal Medicine; Emergency Provider Internal Medicine; PCP Family Medicine; Visit Provider Internal Medicine
DX: I13.0 Hypertensive heart and chronic kidney disease with heart failure and stage 1 through stage 4 chronic kidney disease, or unspecified chronic kidney disease (principal); I50.31 Acute diastolic (congestive) heart failure; J96.01 Acute respiratory failure with hypoxia; N18.4 Chronic kidney disease, stage 4 (severe); I48.20 Chronic atrial fibrillation, unspecified; D68.59 Other primary thrombophilia; E44.0 Moderate protein-calorie malnutrition; I27.20 Pulmonary hypertension, unspecified; I05.2 Rheumatic mitral stenosis with insufficiency; I35.0 Nonrheumatic aortic (valve) stenosis; E88.A Wasting disease (syndrome) due to underlying condition; D64.9 Anemia, unspecified; M40.204 Unspecified kyphosis, thoracic region; R54 Age-related physical debility; E78.00 Pure hypercholesterolemia, unspecified; D63.1 Anemia in chronic kidney disease; E61.1 Iron deficiency; Z66 Do not resuscitate; E53.8 Deficiency of other specified B group vitamins; M81.0 Age-related osteoporosis without current pathological fracture; Z68.28 Body mass index [BMI] 28.0-28.9, adult
CPT/HCPCS: 36415; 71045; 71046; 80048; 80053; 81001; 82607; 82728; 82746; 83540; 83550; 83735; 83880; 84100; 84484; 85007; 85025; 85027; 85610; 93005; 94761; 96374; 97110; 97161; 97165; 97530; 97535; 99285; J0885; J1756; J1938; J3420; P9046

== ENCOUNTER 2025-08-25 13:04 | Outpatient (OUT) | payer MEDICARE, SELFPAY ==
--- NOTE | 2025-08-25 13:00 | CA_ITS ---
Patient Name: FABY JUAREZ MR#: [id number] : 1940 Exam Date: 08/25/2025 Ordering Doctor: DR MITCH JC M.D. ECHOCARDIOGRAM REPORT PROCEDURE: CA ECHO DOPPLER COMPLETE INDICATIONS: Pulmonary hypertension COMPARISON: None. DESCRIPTION: COMPLETE ECHOCARDIOGRAM Real-time transthoracic echocardiography with 2D, M-mode, spectral and color flow Doppler performed. QUALITY: Technical quality was good. LEFT VENTRICLE: Normal chamber size. Mild concentric left ventricular hypertrophy. Normal systolic function. The septum is abnormal in motion suggestive of RV pressure/volume overload. LV EF: Normal left ventricular ejection fraction, (>55%). DIASTOLIC: Grade III diastolic dysfunction. ATRIAL SEPTUM: Visually appears intact. LEFT ATRIUM: Severe dilatation. RIGHT ATRIUM: Severe dilatation. RIGHT VENTRICLE: Moderate dilatation. Systolic function appears reduced. TRICUSPID VALVE: Normal mobility and thickness. No stenosis with moderate regurgitation. Doppler studies reveal severely (>60) elevated right sided pressures. RVSP 110 mmHg MITRAL VALVE: Mildly thickened with normal mobility. No evidence of mitral valve stenosis. There is no mitral annular calcification. Mild to moderate mitral regurgitation. AORTIC VALVE: Normal trileaflet appearance. Mildly calcified aortic valve. Mildly diminished mobility. Doppler velocity suggest mild aortic valve stenosis. Mean gradient 11 mmHg, Peak velocity 2.35 m/s. Trivial aortic regurgitation. AORTIC ROOT: Normal diameter and appearance. PULMONIC VALVE: Normal thickness and mobility. No stenosis. Mild regurgitation. PERICARDIUM: No evidence of pericardial effusion. IVC: PLEURA: CONCLUSION: 1. Mild concentric left ventricular hypertrophy with normal systolic function. Estimated LVEF is 55 to 60%. 2. Moderately dilated right ventricle with reduced systolic function. 3. Grade 3 diastolic dysfunction. 4. Severe biatrial dilatation. 5. Mild to moderate mitral and tricuspid regurgitation. 6. Mild pulmonic regurgitation. 7. Severely elevated right-sided pressures. RVSP is 98 mmHg. Adult Echocardiography Procedure Report Left Ventricle LVEDD (3.7 - 5.6 cm): 3.19 cm LVESD (2.2 - 4.0 cm): 2.08 cm LVIVS thickness (0.6 - 1.2 cm): 1.34 cm LVPW thickness (0.5 - 1.0 cm): 1.06 cm e': 0.10 m/s E - e': 15.31 LVOT Max Gradient: 2.17 mm[Hg] LVOT Area (cm2): 0.74 m/s Peak Velocity (LVOT): 0.74 m/s Mean Velocity (LVOT): 0.44 m/s LVOT Diameter 1.84 cm Left Atrium LA Volume Index (2D A2C): 52.31 ml/m2 Left Atrium Systolic Dimension: 4.40 cm Mitral Valve MV E to A Ratio: 3.98 Mitral Valve A-Wave Peak Velocity: 0.39 m/s Mitral Valve E-Wave Peak Velocity: 1.56 m/s Right Ventricle Aorta AO Root Diam: 2.81 cm Aortic Valve Peak Velocity(Antegrade Flow): 1.93 m/s, 2.15 m/s, 2.35 m/s Peak Gradient(Antegrade Flow): 14.84 mm[Hg], 18.44 mm[Hg], 22.04 mm[Hg] Mean Velocity(Antegrade Flow): 1.42 m/s, 1.37 m/s, 1.50 m/s Mean Gradient(Antegrade Flow): 8.84 mm[Hg], 9.10 mm[Hg], 10.79 mm[Hg] Velocity Time Integral: 47.57 cm, 60.90 cm, 64.91 cm Tricuspid Valve Peak Velocity (Regurgitant Flow): 3.57 m/s, 4.40 m/s, 4.36 m/s, 4.88 m/s Pulmonic Valve Peak Gradient: 4.63 mm[Hg], 5.70 mm[Hg] Right Atrium Right Atrium Systolic Pressure: 104.22 ml, 104.22 ml Dictated by: Mitch Jc M.D. on 08/25/2025 at 18:13 Approved by: Mitch Jc M.D. on 08/25/2025 at 18:29
--- OUTSIDE RECORDS SUMMARY | 2025-08-25 13:11 | XMS_ITS | CCD ---
Author Organization [facility]iniSyn[facility] Care Team Providers Care Underwriting Operations Manager Name Role Phone UNKNOWN, PROVIDER Attending Unavailable [...] DR BARRERA Consulting Unavailable HOY ., DR BARERRA Primary Care Unavailable HOY ., DR BARRERA [...] 04-16-2022 Episodic Other aftercare (4 sources) Other intermediate designer (current) drug therapy; Translations: [OTH [facility] CURRENT DRUG THERAPY] Onset: 06-04-2022 Episodic Other [...] this is all ok with you. Thanks. [facility] Office Visiton 06-28-2025 Follow-up visit [id number] Inez Juarez 1940 F Date Provider Department Center 06/28/2025 Rema-JENN PRADO BARBRA Acuña Family History Problem Relation Age of Onset Hypertension Mother Coronary artery disease Father Hypertension Father Family Status - Relation Status Age at Mother Father Level of Service:61820 PA OFFICE/OUTPATIENT ESTABLISHED MOD MDM 30 MIN [facility] Orders Onlyon 06-10-2025 Orders Only [id number] Inez Juarez 1940 Date Provider Department Center 06/10/2025 [id number], HISTORICAL BARBRA Acuña Family History Problem Relation Age of Onset Hypertension Mother Coronary artery disease Father Hypertension Father Family Status - Relation Status Age at Mother Father [facility] BNPon 03-22-2023 Natriuretic peptide B (Bld) [Mass/Vol] 1423.0 pg/mL Normal <=1,800.0 [facility] Comment on above: Performed By: #### B BIOINFORMATICS ASSISTANT, CMP, TSH, LIPID #### [facility] [address] [address] [address] Reji Thomas CBC AUTO DIFFon 03-22-2023 BASO # 0.1 103/ul Normal 0.0-0.1 [facility] Comment on above: Performed By: #### B MP #### [facility] [address] [place] [address] Dr. Reji Thomas Basophils/100 WBC (Bld) 1.0 % Normal 0.2-2.0 [facility] Comment on above: Performed By: #### B MP #### [facility] [address] [place] [address] Dr. Reji Thomas EO # 0.2 103/ul Normal 0.0-0.7 [facility] Comment on above: Performed By: #### B MP #### [facility] [address] [place] [address] Dr. Reji Thomas Eosinophils/100 WBC (Bld) 3.3 % Normal 0.9-7.0 [facility] Comment on above: Performed By: #### B MP #### [facility] [address] [place] [address] Dr. Reji Thomas Erythrocyte distribution width (RBC) [Ratio] 15.4 % Critically high 11.0-15.0 [facility] Comment on above: Performed By: #### B MP #### [facility] [address] [place] [address] Dr. Reji Thomas Hematocrit (Bld) [Volume fraction] 35.2 % Critically low 36.0-48.0 [facility] Comment on above: Performed By: #### B MP #### [facility] [address] [place] [address] Dr. Reji Thomas Hemoglobin (Bld) [Mass/Vol] 11.4 g/dL Critically low 12.0-16.0 [facility] Comment on above: Performed By: #### B MP #### [facility] [address] [place] [address] Dr. Reji Thomas IG # 0.02 10e3/ul Normal 0.00-0.[address] [facility] Comment on above: Performed By: #### B MP #### [facility] [address] [place] [address] Dr. Reji Thomas IG % 0.3 % Normal 0.0-0.[address] [facility] Comment on above: Performed By: #### B MP #### [facility] [address] [place] [address] Dr. Reji Thomas LYMPH # 1.4 103/ul Normal 1.2-3.[address] [facility] Comment on above: Performed By: #### B MP #### [facility] [address] [place] [address] Dr. Reji Thomas Lymphocytes/100 WBC (Bld) 22.6 % Normal 20.5-60.[address] [facility] Comment on above: Performed By: #### B MP #### [facility] [address] [place] [address] Dr. Reji Thomas MANUAL DIFF REQ NO Normal [facility] Comment on above: Performed By: #### B MP #### [facility] [address] [place] [address] Dr. Reji Thomas MCH (RBC) [Entitic mass] 27.0 pg Normal 26.7-34.[address] [facility] Comment on above: Performed By: #### B MP #### [facility] [address] [place] [address] Dr. Reji Thomas MCHC (RBC) [Mass/Vol] 32.4 g/dL Normal 29.9-35.2 [facility] Comment on above: Performed By: #### B MP #### [facility] [address] [place] [address] Dr. Reji Thomas MCV (RBC) [Entitic vol] 83.2 fL Normal 81.0-99.[address] [facility] Comment on above: Performed By: #### B MP #### [facility] [address] [place] [address] Dr. Reji Thomas MONO # 0.5 103/ul Normal 0.3-0.[address] [facility] Comment on above: Performed By: #### B MP #### [facility] [address] [place] [address] Dr. Reji Thomas Monocytes/100 WBC (Bld) 8.5 % Normal 1.7-12.[address] [facility] Comment on above: Performed By: #### B MP #### [facility] [address] [place] [address] Dr. Reji Thomas NEUT # 4.0 103/ul Normal 1.4-6.5 [facility] Comment on above: Performed By: #### B MP #### [facility] [address] [place] [address] Dr. Reji Thomas Neutrophils/100 WBC (Bld) 64.3 % Normal 43.0-75.[address] [facility] Comment on above: Performed By: #### B MP #### [facility] [address] [place] [address] Dr. Reji Thomas Platelet mean volume (Bld) [Entitic vol] 8.9 fL Critically low 9.5-13.[address] [facility] Comment on above: Performed By: #### B MP #### [facility] [address] [place] [address] Dr. Reji Thomas PLT 226 103/ul Normal 150-450 [facility] Comment on above: Performed By: #### B MP #### [facility] [address] [place] [address] Dr. Reji Thomas RBC 4.23 106/ul Normal 4.20-5.40 [facility] Comment on above: Performed By: #### B MP #### [facility] [address] [place] [address] Dr. Reji Thomas WBC 6.3 103/ul Normal 4.0-11.0 [facility] Comment on above: Performed By: #### B MP #### [facility] [address] [place] [address] Dr. Reji Thomas FREE THYROXINE INDEX T7on FTI 2.40 Normal 1.30-4.[address] [facility] Comment on above: Performed By: #### B BIOINFORMATICS ASSISTANT, CMP, TSH, LIPID #### [facility] [address] [address] [address] Reji Thomas T3U 32.0 % Normal 30.0-39.[address] [facility] Comment on above: Performed By: #### B BIOINFORMATICS ASSISTANT, CMP, TSH, LIPID #### [facility] [address] [address] [address] Reji Thomas T4 [Mass/Vol] 7.50 ug/dL Normal 4.80-13.90 [facility] Comment on above: Performed By: #### B BIOINFORMATICS ASSISTANT, CMP, TSH, LIPID #### [facility] [address] [address] [address] Reji Thomas GLYCOHEMOGLOBIN A1Con 2022 ADA RECOMMENDATION SEE BELOW Normal [facility] Comment on above: Result Comment: ADA RECOMMENDED LIMIT 4.0 - 6.0 ADA THERAPEUTIC TARGET < 7.0 ACTION SUGGESTED > 7.0 Performed By: #### B BIOINFORMATICS ASSISTANT, CMP, TSH, LIPID #### [facility] [address] [address] [address] Reji Thomas Glucose [Mass/Vol] 97 mg/dL Normal [facility] Comment on above: Performed By: #### B BIOINFORMATICS ASSISTANT, CMP, TSH, LIPID #### [facility] [address] [address] [address] Reji Thomas HbA1c (Bld) [Mass fraction] 5.0 % Normal 4.5-6.[address] [facility] Comment on above: Performed By: #### B BIOINFORMATICS ASSISTANT, CMP, TSH, LIPID #### [facility] [address] [address] [address] Reji Thomas IRONon 03-22-2023 Iron [Mass/Vol] 47.0 ug/dL Critically low 50.0-170.0 [facility] Comment on above: Performed By: #### B BIOINFORMATICS ASSISTANT, CMP, TSH, LIPID #### [facility] [address] [address] [address] Reji Thomas LIPID PROFILEon 03-22-2023 CHOL-HDL RATIO NORM SEE BELOW Normal [facility] Comment on above: Result Comment: 3.3 - 4.4 LOW RISK 4.4 - 7.1 AVERAGE RISK 7.1 - 11.0 MODERATE RISK >11.0 HIGH RISK Performed By: #### M G, TSH, LIPID, T7, CMP, BNP #### [facility] [address] [address] [address] Reji Thomas Cholesterol [Mass/Vol] 188 mg/dL Normal <=[address] [facility] Comment on above: Performed By: #### M G, TSH, LIPID, T7, CMP, BNP #### [facility] [address] [address] [address] Reji Thomas Cholesterol in HDL [Mass/Vol] 53 mg/dL Normal 40-[address] [facility] Comment on above: Performed By: #### M G, TSH, LIPID, T7, CMP, BNP #### [facility] [address] [address] [address] Reji Thomas Cholesterol in LDL [Mass/Vol] 111.6 mg/dL Normal [facility] Comment on above: Performed By: #### M G, TSH, LIPID, T7, CMP, BNP #### [facility] [address] [address] [address] Reji Thomas Cholesterol.total/Ch olesterol in HDL [Mass ratio] 3.5 {ratio} Normal [facility] Comment on above: Performed By: #### M G, TSH, LIPID, T7, CMP, BNP #### [facility] [address] [address] [address] Reji Thomas HDL NORMAL > or = 60 mg/dl - LOW CARDIOVASCULAR RISK <40 mg/dl - HIGH CARDIOVASCULAR RISK Normal [facility] Comment on above: Performed By: #### M G, TSH, LIPID, T7, CMP, BNP #### [facility] [address] [place] [address] Dr. Reji Thomas LDL CALC NORMAL SEE BELOW Normal [facility] Comment on above: Result Comment: <100 mg/dl OPTIMAL 100 - 129 mg/dl NEAR OR ABOVE OPTIMAL 130 - 159 mg/dl BORDERLINE HIGH 160 - 189 mg/dl HIGH >190 mg/dl VERY HIGH Performed By: #### M G, TSH, LIPID, T7, CMP, BNP #### [facility] [address] [place] [address] Dr. Reji Thomas Triglyceride [Mass/Vol] 117 mg/dL Normal <=[address] [facility] Comment on above: Performed By: #### M G, TSH, LIPID, T7, CMP, BNP #### [facility] [address] [address] [address] Reji Thomas VLDL CALC 23.4 mg/dL Normal [facility] Comment on above: Performed By: #### M G, TSH, LIPID, T7, CMP, BNP #### [facility] [address] [place] [address] Dr. Reji Thomas MAGNESIUMon 03-22-2023 Magnesium [Mass/Vol] 2.4 mg/dL Normal 1.8-2.[address] [facility] Comment on above: Performed By: #### B BIOINFORMATICS ASSISTANT, CMP, TSH, LIPID #### [facility] [address] [place] [address] Dr. Reji Thomas PROF 14(COMP METB)on 023 Albumin [Mass/Vol] 3.4 g/dL Normal 3.4-5.0 [facility] Comment on above: Performed By: #### M G, TSH, LIPID, T7, CMP, BNP #### [facility] [address] [place] [address] Dr. Reji Thomas Albumin/Globulin [Mass ratio] 0.8 {ratio} Normal [facility] Comment on above: Performed By: #### M G, TSH, LIPID, T7, CMP, BNP #### [facility] [address] [address] [address] Reji Thomas ALP [Catalytic activity/Vol] 61 U/L Normal 46-116 [facility] Comment on above: Performed By: #### M G, TSH, LIPID, T7, CMP, BNP #### [facility] [address] [address] [address] Reji Thomas ALT [Catalytic activity/Vol] 15 U/L Normal 14-[address] [facility] Comment on above: Performed By: #### M G, TSH, LIPID, T7, CMP, BNP #### [facility] [address] [place] [address] Dr. Reji Thomas Anion gap [Moles/Vol] 13.1 mmol/L Normal [facility] Comment on above: Performed By: #### M G, TSH, LIPID, T7, CMP, BNP #### [facility] [address] [place] [address] Dr. Reji Thomas AST [Catalytic activity/Vol] 13 U/L Critically low 15-[address] [facility] Comment on above: Performed By: #### M G, TSH, LIPID, T7, CMP, BNP #### [facility] [address] [place] [address] Dr. Reji Thomas Bilirubin [Mass/Vol] 0.4 mg/dL Normal 0.2-1.[address] [facility] Comment on above: Performed By: #### M G, TSH, LIPID, T7, CMP, BNP #### [facility] [address] [place] [address] Dr. Reji Thomas Calcium [Mass/Vol] 8.5 mg/dL Normal 8.5-10.1 [facility] Comment on above: Performed By: #### M G, TSH, LIPID, T7, CMP, BNP #### [facility] [address] [place] [address] Dr. Reji Thomas Chloride [Moles/Vol] 106 mmol/L Normal 98-107 [facility] Comment on above: Performed By: #### M G, TSH, LIPID, T7, CMP, BNP #### [facility] [address] [place] [address] Dr. Reji Thomas CO2 [Moles/Vol] 27.6 mmol/L Normal 21.0-32.0 [facility] Comment on above: Performed By: #### M G, TSH, LIPID, T7, CMP, BNP #### [facility] [address] [place] [address] Dr. Reji Thomas Creatinine [Mass/Vol] 2.32 mg/dL Critically high 0.55-1.[address] [facility] Comment on above: Performed By: #### M G, TSH, LIPID, T7, CMP, BNP #### [facility] [address] [place] [address] Dr. Reji Thomas EGFR-AF MACANESE 24 mL/min/1.73m2 Critically low >=60 [facility] Comment on above: Performed By: #### M G, TSH, LIPID, T7, CMP, BNP #### [facility] [address] [place] [address] Dr. Reji Thomas EGFR-NON AF MACANESE 20 mL/min/1.73m2 Critically low >=60 [facility] Comment on above: Performed By: #### M G, TSH, LIPID, T7, CMP, BNP #### [facility] [address] [place] [address] Dr. Reji Thomas Globulin (S) [Mass/Vol] 4.3 g/dL Normal [facility] Comment on above: Performed By: #### M G, TSH, LIPID, T7, CMP, BNP #### [facility] [address] [place] [address] Dr. Reji Thomas Glucose [Mass/Vol] 88 mg/dL Normal 74-106 [facility] Comment on above: Performed By: #### M G, TSH, LIPID, T7, CMP, BNP #### [facility] [address] [place] [address] Dr. Reji Thomas Potassium [Moles/Vol] 4.7 mmol/L Normal 3.5-5.1 [facility] Comment on above: Performed By: #### M G, TSH, LIPID, T7, CMP, BNP #### [facility] [address] [place] [address] Dr. Reji Thomas Protein [Mass/Vol] 7.7 g/dL Normal 6.4-8.2 [facility] Comment on above: Performed By: #### M G, TSH, LIPID, T7, CMP, BNP #### [facility] [address] [place] [address] Dr. Reji Thomas Sodium [Moles/Vol] 142 mmol/L Normal 136-145 [facility] Comment on above: Performed By: #### M G, TSH, LIPID, T7, CMP, BNP #### [facility] [address] [address] [address] Reji Thomas Urea nitrogen [Mass/Vol] 38.0 mg/dL Critically high 7.0-18.[address] [facility] Comment on above: Performed By: #### M G, TSH, LIPID, T7, CMP, BNP #### [facility] [address] [address] [address] Reji Thomas Urea nitrogen/Creatinine [Mass ratio] 16.4 mg/mg Normal [facility] Comment on above: Performed By: #### M G, TSH, LIPID, T7, CMP, BNP #### [facility] [address] [place] [address] Dr. Reji Thomas PROTIMEon 03-22-2023 INR Coag (PPP) [Relative time] 1.98 {INR} Normal [facility] Comment on above: Performed By: #### P T #### [facility] [address] [place] [address] Dr. Reji Thomas INR GUIDELINES SEE BELOW Normal [facility] Comment on above: Result Comment: SHY RED INR: 2.0 - 3.0 CONDITIONS NOT LISTED BELOW 2.5 - 3.5 FOR PROSTHETIC HEART VALVE REPLACEMENT 2.5 - 3.5 RECURRENT THROMBOSIS Performed By: #### P T #### [facility] [address] [place] [address] Dr. Reji Thomas PT Coag (PPP) [Time] 20.2 s Critically high 9.0-11.[address] [facility] Comment on above: Performed By: #### P T #### [facility] [address] [place] [address] Dr. Reji Thomas TSHon 03-22-2023 TSH 2.265 uIU/mL Normal 0.358-3.740 [facility] Comment on above: Performed By: #### B BIOINFORMATICS ASSISTANT, CMP, TSH, LIPID #### [facility] [address] [place] [address] Dr. Reji Thomas VITAMIN D 25 OHon 03-22-2023 VIT D 25-OH 53.1 ng/mL Normal [facility] Comment on above: Performed By: #### B MP #### [facility] [address] [place] [address] Dr. Reji Thomas VIT D RANGES SEE BELOW Normal [facility] Comment on above: Result Comment: <20 ng/mL Vit D deficient 20 - <30 ng/mL Vit D insufficient 30 - 100 ng/mL Vit D sufficient >100 ng/mL Potential Toxicity Performed By: #### B MP #### [facility] [address] [place] [address] Dr. Reji Thomas PROTIMEon 02-22-2023 INR Coag (PPP) [Relative time] 2.22 {INR} Normal [facility] Comment on above: Performed By: #### B BIOINFORMATICS ASSISTANT, CMP, TSH, LIPID #### [facility] [address] [place] [address] Dr. Reji Thomas INR GUIDELINES SEE BELOW Normal [facility] Comment on above: Result Comment: SHY RED INR: 2.0 - 3.0 CONDITIONS NOT LISTED BELOW 2.5 - 3.5 FOR PROSTHETIC HEART VALVE REPLACEMENT 2.5 - 3.5 RECURRENT THROMBOSIS Performed By: #### B BIOINFORMATICS ASSISTANT, CMP, TSH, LIPID #### [facility] [address] [place] [address] Dr. Reji Thomas PT Coag (PPP) [Time] 22.5 s Critically high 9.0-11.6 [facility] Comment on above: Performed By: #### B BIOINFORMATICS ASSISTANT, CMP, TSH, LIPID #### [facility] [address] [place] [address] Dr. Reji Thomas PROTIMEon 01-03-2023 INR Coag (PPP) [Relative time] 2.53 {INR} Normal [facility] Comment on above: Performed By: #### B MP #### [facility] [address] [place] [address] Dr. Reji Thomas INR GUIDELINES SEE BELOW Normal [facility] Comment on above: Result Comment: SHY RED INR: 2.0 - 3.0 CONDITIONS NOT LISTED BELOW 2.5 - 3.5 FOR PROSTHETIC HEART VALVE REPLACEMENT 2.5 - 3.5 RECURRENT THROMBOSIS Performed By: #### B MP #### [facility] [address] [place] [address] Dr. Reji Thomas PT Coag (PPP) [Time] 25.4 s Critically high 9.0-11.[address] [facility] Comment on above: Performed By: #### B MP #### [facility] [address] [place] [address] Dr. Reji Thomas PROTIMEon 11-23-2022 INR Coag (PPP) [Relative time] 1.71 {INR} Normal [facility] Comment on above: Performed By: #### B BIOINFORMATICS ASSISTANT, CMP, TSH, LIPID #### [facility] [address] [place] [address] Dr. Reji Thomas INR GUIDELINES SEE BELOW Normal [facility] Comment on above: Result Comment: SHY RED INR: 2.0 - 3.0 CONDITIONS NOT LISTED BELOW 2.5 - 3.5 FOR PROSTHETIC HEART VALVE REPLACEMENT 2.5 - 3.5 RECURRENT THROMBOSIS Performed By: #### B BIOINFORMATICS ASSISTANT, CMP, TSH, LIPID #### [facility] [address] [place] [address] Dr. Reji Thomas PT Coag (PPP) [Time] 17.6 s Critically high 9.0-11.[address] [facility] Comment on above: Performed By: #### B BIOINFORMATICS ASSISTANT, CMP, TSH, LIPID #### [facility] [address] [place] [address] Dr. Reji Thomas PROTIMEon 10-10-2022 INR Coag (PPP) [Relative time] 2.52 {INR} Normal [facility] Comment on above: Performed By: #### B BIOINFORMATICS ASSISTANT, CMP, TSH, LIPID #### [facility] [address] [place] [address] Dr. Reji Thomas INR GUIDELINES SEE BELOW Normal [facility] Comment on above: Result Comment: SHY RED INR: 2.0 - 3.0 CONDITIONS NOT LISTED BELOW 2.5 - 3.5 FOR PROSTHETIC HEART VALVE REPLACEMENT 2.5 - 3.5 RECURRENT THROMBOSIS Performed By: #### B BIOINFORMATICS ASSISTANT, CMP, TSH, LIPID #### [facility] [address] [place] [address] Dr. Reji Thomas PT Coag (PPP) [Time] 25.6 s Critically high 9.0-11.6 [facility] Comment on above: Performed By: #### B BIOINFORMATICS ASSISTANT, CMP, TSH, LIPID #### [facility] [address] [place] [address] Dr. Reji Thomas PROTIMEon 09-05-2022 INR Coag (PPP) [Relative time] 2.03 {INR} Normal [facility] Comment on above: Performed By: #### B BIOINFORMATICS ASSISTANT, CMP, TSH, LIPID #### [facility] [address] [place] [address] Dr. Reji Thomas INR GUIDELINES SEE BELOW Normal [facility] Comment on above: Result Comment: SHY RED INR: 2.0 - 3.0 CONDITIONS NOT LISTED BELOW 2.5 - 3.5 FOR PROSTHETIC HEART VALVE REPLACEMENT 2.5 - 3.5 RECURRENT THROMBOSIS Performed By: #### B BIOINFORMATICS ASSISTANT, CMP, TSH, LIPID #### [facility] [address] [place] [address] Dr. Reji Thomas PT Coag (PPP) [Time] 20.9 s Critically high 9.0-11.[address] [facility] Comment on above: Performed By: #### B BIOINFORMATICS ASSISTANT, CMP, TSH, LIPID #### [facility] [address] [place] [address] Dr. Reji Thomas BNPon 08-10-2022 Natriuretic peptide B (Bld) [Mass/Vol] 1162.0 pg/mL Normal <=1,800.[address] [facility] Comment on above: Performed By: #### B MP, BNP #### [facility] [address] [place] [address] Dr. Reji Thomas PROF CHEM 8 (BAS METB)on Anion gap [Moles/Vol] 11.3 mmol/L Normal [facility] Comment on above: Performed By: #### B MP, BNP #### [facility] [address] [place] [address] Dr. Reji Thomas Calcium [Mass/Vol] 8.9 mg/dL Normal 8.5-10.1 [facility] Comment on above: Performed By: #### B MP, BNP #### [facility] [address] [address] [address] Reji Thomas Chloride [Moles/Vol] 103 mmol/L Normal 98-[address] [facility] Comment on above: Performed By: #### B MP, BNP #### [facility] [address] [address] [address] Reji Thomas CO2 [Moles/Vol] 28.2 mmol/L Normal 21.0-32.0 [facility] Comment on above: Performed By: #### B MP, BNP #### [facility] [address] [place] [address] Dr. Reji Thomas Creatinine [Mass/Vol] 2.07 mg/dL Critically high 0.55-1.[address] [facility] Comment on above: Performed By: #### B MP, BNP #### [facility] [facility] [address] [place] [address] Dr. Reji Thomas EGFR-AF MACANESE 28 mL/min/1.73m2 Critically low >=[address] [facility] Comment on above: Performed By: #### B MP, BNP #### [facility] [address] [place] [address] Dr. Reji Thomas EGFR-NON AF MACANESE 23 mL/min/1.73m2 Critically low >=[address] [facility] Comment on above: Performed By: #### B MP, BNP #### [facility] [address] [place] [address] Dr. Reji Thomas Glucose [Mass/Vol] 88 mg/dL Normal 74-106 [facility] Comment on above: Performed By: #### B MP, BNP #### [facility] [address] [place] [address] Dr. Reji Thomas Potassium [Moles/Vol] 4.5 mmol/L Normal 3.5-5.[address] [facility] Comment on above: Performed By: #### B MP, BNP #### [facility] [address] [place] [address] Dr. Reji Thomas Sodium [Moles/Vol] 138 mmol/L Normal 136-145 [facility] Comment on above: Performed By: #### B MP, BNP #### [facility] [address] [place] [address] Dr. Reji Thomas Urea nitrogen [Mass/Vol] 35.0 mg/dL Critically high 7.0-18.[address] [facility] Comment on above: Performed By: #### B MP, BNP #### [facility] [address] [place] [address] Dr. Reji Thomas Urea nitrogen/Creatinine [Mass ratio] 16.9 mg/mg Normal [facility] Comment on above: Performed By: #### B MP, BNP #### [facility] [address] [place] [address] Dr. Reji Thomas PROTIMEon 08-09-2022 INR Coag (PPP) [Relative time] 2.04 {INR} Normal [facility] Comment on above: Performed By: #### B BIOINFORMATICS ASSISTANT, CMP, TSH, LIPID #### [facility] [address] [place] [address] Dr. Reji Thomas INR GUIDELINES SEE BELOW Normal [facility] Comment on above: Result Comment: SHY RED INR: 2.0 - 3.0 CONDITIONS NOT LISTED BELOW 2.5 - 3.5 FOR PROSTHETIC HEART VALVE REPLACEMENT 2.5 - 3.5 RECURRENT THROMBOSIS Performed By: #### B BIOINFORMATICS ASSISTANT, CMP, TSH, LIPID #### [facility] [address] [place] [address] Dr. Reji Thomas PT Coag (PPP) [Time] 21.0 s Critically high 9.0-11.[address] [facility] Comment on above: Performed By: #### B BIOINFORMATICS ASSISTANT, CMP, TSH, LIPID #### [facility] [address] [place] [address] Dr. Reji Thomas BNPon 07-09-2022 Natriuretic peptide B (Bld) [Mass/Vol] 2085.0 pg/mL Critically high <=1,800.[address] [facility] Comment on above: Result Comment: LEX ACOSTA CALLED TO OFFICE ON 07-10-22 AT 0850 BY AR Performed By: #### B BIOINFORMATICS ASSISTANT, CMP, TSH, LIPID #### [facility] [address] [place] [address] Dr. Reji Thomas PROF CHEM 8 (BAS METB)on Anion gap [Moles/Vol] 13.7 mmol/L Normal [facility] Comment on above: Performed By: #### B BIOINFORMATICS ASSISTANT, CMP, TSH, LIPID #### [facility] [address] [place] [address] Dr. Reji Thomas Calcium [Mass/Vol] 8.3 mg/dL Critically low 8.5-10.1 [facility] e [facility] Comment on above: Performed By: #### B BIOINFORMATICS ASSISTANT, CMP, TSH, LIPID #### [facility] [address] [place] [address] Dr. Reji Thomas Chloride [Moles/Vol] 104 mmol/L Normal 98-[address] [facility] Comment on above: Performed By: #### B BIOINFORMATICS ASSISTANT, CMP, TSH, LIPID #### [facility] [address] [place] [address] Dr. Reji Thomas CO2 [Moles/Vol] 26.6 mmol/L Normal 21.0-32.0 [facility] Comment on above: Performed By: #### B BIOINFORMATICS ASSISTANT, CMP, TSH, LIPID #### [facility] [address] [place] [address] Dr. Reji Thomas Creatinine [Mass/Vol] 1.98 mg/dL Critically high 0.55-1.[address] [facility] Comment on above: Performed By: #### B BIOINFORMATICS ASSISTANT, CMP, TSH, LIPID #### [facility] [address] [place] [address] Dr. Reji Thomas EGFR-AF MACANESE 29 mL/min/1.73m2 Critically low >=[address] [facility] Comment on above: Performed By: #### B BIOINFORMATICS ASSISTANT, CMP, TSH, LIPID #### [facility] [address] [place] [address] Dr. Reji Thomas EGFR-NON AF MACANESE 24 mL/min/1.73m2 Critically low >=[address] [facility] Comment on above: Performed By: #### B BIOINFORMATICS ASSISTANT, CMP, TSH, LIPID #### [facility] [address] [address] [address] Reji Thomas Glucose [Mass/Vol] 116 mg/dL Critically high 74-106 [facility] Comment on above: Performed By: #### B BIOINFORMATICS ASSISTANT, CMP, TSH, LIPID #### [facility] [address] [address] [address] Reji Thomas Potassium [Moles/Vol] 4.3 mmol/L Normal 3.5-5.[address] [facility] Comment on above: Performed By: #### B BIOINFORMATICS ASSISTANT, CMP, TSH, LIPID #### [facility] [address] [address] [address] Reji Thomas Sodium [Moles/Vol] 140 mmol/L Normal 136-145 [facility] Comment on above: Performed By: #### B BIOINFORMATICS ASSISTANT, CMP, TSH, LIPID #### [facility] [address] [place] [address] Dr. Reji Thomas Urea nitrogen [Mass/Vol] 35.0 mg/dL Critically high 7.0-18.[address] [facility] Comment on above: Performed By: #### B BIOINFORMATICS ASSISTANT, CMP, TSH, LIPID #### [facility] [address] [address] [address] Reji Thomas Urea nitrogen/Creatinine [Mass ratio] 17.7 mg/mg Normal [facility] Comment on above: Performed By: #### B BIOINFORMATICS ASSISTANT, CMP, TSH, LIPID #### [facility] [address] [place] [address] Dr. Reji Thomas PROTIMEon 07-09-2022 INR Coag (PPP) [Relative time] 2.99 {INR} Normal [facility] Comment on above: Performed By: #### B BIOINFORMATICS ASSISTANT, CMP, TSH, LIPID #### [facility] [address] [place] [address] Dr. Reji Thomas INR GUIDELINES SEE BELOW Normal [facility] Comment on above: Result Comment: SHY RED INR: 2.0 - 3.0 CONDITIONS NOT LISTED BELOW 2.5 - 3.5 FOR PROSTHETIC HEART VALVE REPLACEMENT 2.5 - 3.5 RECURRENT THROMBOSIS Performed By: #### B BIOINFORMATICS ASSISTANT, CMP, TSH, LIPID #### [facility] [address] [place], [place] [address] Dr. Reji Thomas PT Coag (PPP) [Time] 30.1 s Critically high 9.0-11.[address] [facility] Comment on above: Performed By: #### B BIOINFORMATICS ASSISTANT, CMP, TSH, LIPID #### [facility] [address] [address] [address] Reji Thomas US KIDNEYSon 07-06-2022 US [...] IFA Positive Critically abnormal . [facility] Comment on above: Result Comment: Nega tive <1:80 Borderline 1:80 Positive >1:80 Performed By: #### C UU, ADDONUAPLUS #### [facility] [address] [place] [address] #### C3, C4, CH50 #### [facility] , Homogeneous Pattern 1:320 High . [facility] Comment on above: Result Comment: ICAP nomenclature: [id number] Performed By: #### C MIKY CHOW #### [facility] [address] #### C3, C4, CH50 #### [facility] , Note 1 Normal . [facility] Comment on above: Result Comment: [...] titers Nucleosomes, Histones Drug-induced SLE Speckled Sm, PRINT SHOP STENOGRAPHER, SCL-70, SLE,MCTD,PSS (diffuse form), SS-A/SS-B Sjogrens Nucleolar SCL-70, PM-1/SCL High titers Scleroderma, PM/DM Centromere Centromere PSS (limited form) w/Crest syndrome variable Nuclear Dot [id number] Primary Biliary Cirrhosis Nuclear GP210, Primary Biliary Cirrhosis Membrane eleonora A,B,C Performed at: [facility] [place] [address] Boot Liner Maker: Demarcus Lawton PhD, Phone: [phone] Performed By: #### COURTNEY GOMEZONHEAVENPLUS #### [facility] [address] [place] [address] #### C3, C4, CH50 #### [facility] , Anti-RNPon 06-19-2022 Anti-PRINT SHOP STENOGRAPHER 0.4 Normal 0.0-0.9 [facility] Comment on above: Result Comment: Perf ormed at: [facility] [place] [address] Boot Liner Maker: Demarcus Lawton PhD, Phone: [phone] Performed By: #### COURTNEY GOMEZONUAPLUS #### [facility] [address] [place] [address] #### C3, C4, CH50 #### [facility] , C-Reactive Proteinon 022 C-Reactive Protein 2.0 mg/dL High 0.0-1.0 [facility] Comment on above: Result Comment: PERF ORMED BY: [place] [address] PATHOLOGIST CAFETERIA TABLE ATTENDANT RADHA BULLARD M.D. Performed By: #### C UU, ADDONUAPLUS #### [address] #### C3, C4, CH50 #### [facility] , Complement C3on 06-19-2022 Complement C3 167 mg/dL Normal 82-167 [facility] Comment on above: Result Comment: Perf ormed at: [address] [id number] Boot Liner Maker: Demarcus Lawton PhD, Phone: [phone] Performed By: #### C UU, ADDONUAPLUS #### [address] #### C3, C4, CH50 #### [facility] , Complement C4on 06-19-2022 Complement C4 37 mg/dL Normal 12-38 [facility] Comment on above: Performed By: #### C UU, ADDONUAPLUS #### [address] #### C3, C4, CH50 #### [facility] , Complement Total (CH50)on Complement Total (CH50) >60 Normal >41 [facility] Comment on above: Result Comment: [...] out of range values. Performed at: - [facility] [id number] Boot Liner Maker: Demarcus Lawton PhD, Phone: [phone] PERFORMED BY: [place] [address] PATHOLOGIST CAFETERIA TABLE ATTENDANT RADHA BULLARD M.D. Performed By: #### C UU, ADDONUAPLUS #### [address] #### C3, C4, CH50 #### [facility] , Complete Blood Count Auto Di ffon 06-19-2022 Basophils (Bld) [#/Vol] 0.1 10*3/uL Normal 0.0-0.2 [facility] Comment on above: Performed By: #### H EPATIC, CBC, ESR, CRP, CREAT, CK #### [place] [address] [place] #### RNA POLYMR, ANTI TH TO, EVAN, U3 PRINT SHOP STENOGRAPHER, ANTIR, PM-SCL ABS #### [facility] , Basophils/100 WBC (Bld) 0.9 % Normal . [facility] Comment on above: Performed By: #### H EPATIC, CBC, ESR, CRP, CREAT, CK #### [place] [address] [place] #### RNA POLYMR, ANTI TH TO, EVAN, U3 PRINT SHOP STENOGRAPHER, ANTIR, PM-SCL ABS #### [facility] , Eosinophils (Bld) [#/Vol] 0.5 10*3/uL High 0.0-0.45 [facility] Comment on above: Performed By: #### H EPATIC, CBC, ESR, CRP, CREAT, CK #### [place] [address] [place] #### RNA POLYMR, ANTI TH TO, EVAN, U3 PRINT SHOP STENOGRAPHER, ANTIR, PM-SCL ABS #### [facility] , Eosinophils/100 WBC (Bld) 8.6 % Normal . [facility] Comment on above: Performed By: #### H EPATIC, CBC, ESR, CRP, CREAT, CK #### [address] [address] [place] #### RNA POLYMR, ANTI TH TO, EVAN, U3 PRINT SHOP STENOGRAPHER, ANTIR, PM-SCL ABS #### [facility] , Erythrocyte distribution width (RBC) [Ratio] 19.6 % High 11.9-15.3 [facility] Comment on above: Performed By: #### H EPATIC, CBC, ESR, CRP, CREAT, CK #### [place] [address] [place] #### RNA POLYMR, ANTI TH TO, EVAN, U3 PRINT SHOP STENOGRAPHER, ANTIR, PM-SCL ABS #### [facility] , Hematocrit (Bld) [Volume fraction] 33.8 % Low 34.0-46.4 [facility] Comment on above: Performed By: #### H EPATIC, CBC, ESR, CRP, CREAT, CK #### [address] #### RNA POLYMR, ANTI TH TO, EVAN, U3 PRINT SHOP STENOGRAPHER, ANTIR, PM-SCL ABS #### [facility] , Hemoglobin (Bld) [Mass/Vol] 10.9 g/dL Low 11.8-15.4 [facility] Comment on above: Performed By: #### H EPATIC, CBC, ESR, CRP, CREAT, CK #### [place] [address] [place] #### RNA POLYMR, ANTI TH TO, EVAN, U3 PRINT SHOP STENOGRAPHER, ANTIR, PM-SCL ABS #### [facility] , Lymphocytes (Bld) [#/Vol] 1.1 10*3/uL Normal 1.00-4.8 [facility] Comment on above: Performed By: #### H EPATIC, CBC, ESR, CRP, CREAT, CK #### [place] [address] [place] #### RNA POLYMR, ANTI TH TO, EVAN, U3 PRINT SHOP STENOGRAPHER, ANTIR, PM-SCL ABS #### [facility] , Lymphocytes/100 WBC (Bld) 17.8 % Normal . [facility] Comment on above: Performed By: #### H EPATIC, CBC, ESR, CRP, CREAT, CK #### [facility] [address] [place] [address] #### RNA POLYMR, ANTI TH TO, EVAN, U3 PRINT SHOP STENOGRAPHER, ANTIR, PM-SCL ABS #### [facility] , MCH (RBC) [Entitic mass] 26.4 pg Normal 24.7-34.3 [facility] Comment on above: Performed By: #### H EPATIC, CBC, ESR, CRP, CREAT, CK #### [facility] [address] [place] [address] #### RNA POLYMR, ANTI TH TO, EVAN, U3 PRINT SHOP STENOGRAPHER, ANTIR, PM-SCL ABS #### [facility] , MCV (RBC) [Entitic vol] 81.8 fL Normal 80-100 [facility] Comment on above: Performed By: #### H EPATIC, CBC, ESR, CRP, CREAT, CK #### [address] #### RNA POLYMR, ANTI TH TO, EVAN, U3 PRINT SHOP STENOGRAPHER, ANTIR, PM-SCL ABS #### [facility] , Mean Corpuscular HGB Conc 32.3 g/dL Normal 32.0-35.0 [facility] Comment on above: Performed By: #### H EPATIC, CBC, ESR, CRP, CREAT, CK #### [address] #### RNA POLYMR, ANTI TH TO, EVAN, U3 PRINT SHOP STENOGRAPHER, ANTIR, PM-SCL ABS #### [facility] , Monocytes (Bld) [#/Vol] 0.4 10*3/uL Normal 0.0-0.8 [facility] Comment on above: Performed By: #### H EPATIC, CBC, ESR, CRP, CREAT, CK #### [place] [address] [place] #### RNA POLYMR, ANTI TH TO, EVAN, U3 PRINT SHOP STENOGRAPHER, ANTIR, PM-SCL ABS #### [facility] , Monocytes/100 WBC (Bld) 7.4 % Normal . [facility] Comment on above: Performed By: #### H EPATIC, CBC, ESR, CRP, CREAT, CK #### [address] #### RNA POLYMR, ANTI TH TO, EVAN, U3 PRINT SHOP STENOGRAPHER, ANTIR, PM-SCL ABS #### [facility] , Neutrophils (Bld) [#/Vol] 3.9 10*3/uL Normal 1.8-7.7 [facility] Comment on above: Performed By: #### H EPATIC, CBC, ESR, CRP, CREAT, CK #### [address] #### RNA POLYMR, ANTI TH TO, EVAN, U3 PRINT SHOP STENOGRAPHER, ANTIR, PM-SCL ABS #### [facility] , Neutrophils/100 WBC (Bld) 65.3 % Normal . [facility] Comment on above: Performed By: #### H EPATIC, CBC, ESR, CRP, CREAT, CK #### [address] #### RNA POLYMR, ANTI TH TO, EVAN, U3 PRINT SHOP STENOGRAPHER, ANTIR, PM-SCL ABS #### [facility] , Nucleated RBC/100 WBC (Bld) [Ratio] 0.0 % Normal 0-0.5 [facility] Comment on above: Performed By: #### H EPATIC, CBC, ESR, CRP, CREAT, CK #### [place] [address] [place] #### RNA POLYMR, ANTI TH TO, EVAN, U3 PRINT SHOP STENOGRAPHER, ANTIR, PM-SCL ABS #### [facility] , Platelet mean volume (Bld) [Entitic vol] 7.2 fL Normal 6.3-10.7 [facility] Comment on above: Performed By: #### H EPATIC, CBC, ESR, CRP, CREAT, CK #### [facility] [address] [place] [address] [place] #### RNA POLYMR, ANTI TH TO, EVAN, U3 PRINT SHOP STENOGRAPHER, ANTIR, PM-SCL ABS #### [facility] , Platelets (Bld) [#/Vol] 237 10*3/uL Normal 150-450 [facility] Comment on above: Performed By: #### H EPATIC, CBC, ESR, CRP, CREAT, CK #### [facility] [address] [place] [address] #### RNA POLYMR, ANTI TH TO, EVAN, U3 PRINT SHOP STENOGRAPHER, ANTIR, PM-SCL ABS #### [facility] , RBC (Bld) [#/Vol] 4.14 10*6/uL Normal 3.60-5.00 [facility] Comment on above: Performed By: #### H EPATIC, CBC, ESR, CRP, CREAT, CK #### [facility] [address] [place] [address] [place] #### RNA POLYMR, ANTI TH TO, EVAN, U3 PRINT SHOP STENOGRAPHER, ANTIR, PM-SCL ABS #### [facility] , WBC (Bld) [#/Vol] 6.0 10*3/uL Normal 4.5-11.0 [facility] Comment on above: Performed By: #### H EPATIC, CBC, ESR, CRP, CREAT, CK #### [facility] [address] [place] [address] [place] #### RNA POLYMR, ANTI TH TO, EVAN, U3 PRINT SHOP STENOGRAPHER, ANTIR, PM-SCL ABS #### [facility] , Creatine Kinaseon 06-19-2022 CK [Catalytic activity/Vol] 38 U/L Normal 22-269 [facility] Comment on above: Result Comment: PERF ORMED BY: [place] [phone] PATHOLOGIST CAFETERIA TABLE ATTENDANT RADHA BULLARD M.D. Performed By: #### H EPATIC, CBC, ESR, CRP, CREAT, CK #### [address] #### RNA POLYMR, ANTI TH TO, EVAN, U3 PRINT SHOP STENOGRAPHER, ANTIR, PM-SCL ABS #### [facility] , Creatinineon 06-19-2022 Creatinine [Mass/Vol] 2.82 mg/dL High 0.44-1.03 [facility] Comment on above: Performed By: #### H EPATIC, CBC, ESR, CRP, CREAT, CK #### [address] #### RNA POLYMR, ANTI TH TO, EVAN, U3 PRINT SHOP STENOGRAPHER, ANTIR, PM-SCL ABS #### [facility] , Estimated GFR ( [place] 19 [facility] Comment on above: Result Comment: GFR estimated reference range: According to KDOQI guidelines, <60 ml/min/1.73m2 is sufficient to diagnose a patient with chronic kidney disease. Performed By: #### H EPATIC, CBC, ESR, CRP, CREAT, CK #### [address] #### RNA POLYMR, ANTI TH TO, EVAN, U3 PRINT SHOP STENOGRAPHER, ANTIR, PM-SCL ABS #### [facility] , Estimated GFR (Non- Am 16 [facility] Comment on above: Performed By: #### H EPATIC, CBC, ESR, CRP, CREAT, CK #### [place] [address] [place] #### RNA POLYMR, ANTI TH TO, EVAN, U3 PRINT SHOP STENOGRAPHER, ANTIR, PM-SCL ABS #### [facility] , Dipstick and Microscopicon 0 06-19-2022 Appearance (U) Cloudy Critically abnormal Clear [facility] Comment on above: Order Comment: Name Collection Type:: Clean-Voided Midstream Performed By: #### C UU, ADDONUAPLUS #### [facility] [address] [place] [address] #### C3, C4, CH50 #### [facility] , Bacteria,Urine 1+ High None Seen [facility] Comment on above: Order Comment: Name Collection Type:: Clean-Voided Midstream Performed By: #### C UU, ADDONUAPLUS #### [facility] [address] [place] [address] #### C3, C4, CH50 #### [facility] , Bilirubin,Urine Negative Normal Negative [facility] Comment on above: Order Comment: Name Collection Type:: Clean-Voided Midstream Performed By: #### C UU, ADDONUAPLUS #### [facility] [address] [place] [address] #### C3, C4, CH50 #### [facility] , Color (U) Yellow Normal Yellow [facility] Comment on above: Order Comment: Name Collection Type:: Clean-Voided Midstream Performed By: #### C UU, ADDONUAPLUS #### [facility] [address] [place] [address] #### C3, C4, CH50 #### [facility] , Glucose Ql (U) Normal Normal Normal [facility] Comment on above: Order Comment: Name Collection Type:: Clean-Voided Midstream Performed By: #### C UU, ADDONUAPLUS #### [facility] [address] [place] [address] #### C3, C4, CH50 #### [facility] , Hyaline Casts,Urine 1-2 Normal 0-8 [facility] Comment on above: Order Comment: Name Collection Type:: Clean-Voided Midstream Result Comment: PERF ORMED BY: [place] [address] PATHOLOGIST CAFETERIA TABLE ATTENDANT RADHA BULLARD M.D. Performed By: #### C UU, ADDONUAPLUS #### [facility] [address] [place] [address] #### C3, C4, CH50 #### [facility] , Ketones Ql (U) Negative Normal Negative [facility] Comment on above: Order Comment: Name Collection Type:: Clean-Voided Midstream Performed By: #### C UU, ADDONUAPLUS #### [facility] [address] [place] [address] #### C3, C4, CH50 #### [facility] , Leukocyte esterase Test strip Ql (U) 4+ High Negative [facility] Comment on above: Order Comment: Name Collection Type:: Clean-Voided Midstream Performed By: #### C UU, ADDONUAPLUS #### [address] #### C3, C4, CH50 #### [facility] , Nitrite,Urine Negative Normal Negative [facility] Comment on above: Order Comment: Name Collection Type:: Clean-Voided Midstream Performed By: #### C UU, ADDONUAPLUS #### [address] #### C3, C4, CH50 #### [facility] , Occult Blood,Urine 1+ High Negative [facility] Comment on above: Order Comment: Name Collection Type:: Clean-Voided Midstream Performed By: #### C UU, ADDONUAPLUS #### [address] #### C3, C4, CH50 #### [facility] , pH (U) 6.5 [pH] Normal 5.0-9.0 [facility] Comment on above: Order Comment: Name Collection Type:: Clean-Voided Midstream Performed By: #### C UU, ADDONUAPLUS #### [place] [address] [place] #### C3, C4, CH50 #### [facility] , Protein,Urine Trace High Negative [facility] Comment on above: Order Comment: Name Collection Type:: Clean-Voided Midstream Performed By: #### C UU, ADDONUAPLUS #### [address] #### C3, C4, CH50 #### [facility] , RBC,Urine 1-2 Normal 0-4 [facility] Comment on above: Order Comment: Name Collection Type:: Clean-Voided Midstream Performed By: #### C UU, ADDONUAPLUS #### [address] #### C3, C4, CH50 #### [facility] , Specificy Gonzales,Urine 1.010 Normal 1.001-1.030 [facility] Comment on above: Order Comment: Name Collection Type:: Clean-Voided Midstream Performed By: #### C UU, ADDONUAPLUS #### [address] #### C3, C4, CH50 #### [facility] , Squamous Epithelial Cell,Urine 5-9 High 0-2 [facility] Comment on above: Order Comment: Name Collection Type:: Clean-Voided Midstream Performed By: #### C UU, ADDONUAPLUS #### [address] #### C3, C4, CH50 #### [facility] , Urobilinogen,Urine Normal Normal Normal [facility] Comment on above: Order Comment: Name Collection Type:: Clean-Voided Midstream Performed By: #### C UU, ADDONUAPLUS #### [address] #### C3, C4, CH50 #### [facility] , WBC,Urine Innumerable High 0-4 [facility] Comment on above: Order Comment: Name Collection Type:: Clean-Voided Midstream Performed By: #### C UU, ADDONUAPLUS #### [address] #### C3, C4, CH50 #### [facility] , Erythrocyte Sedimentation Ra pratik 06-19-2022 ESR (Bld) [Velocity] 57 mm/h High 0-29 [facility] Comment on above: Result Comment: PERF ORMED BY: [place] [address] PATHOLOGIST CAFETERIA TABLE ATTENDANT RADHA BULLARD M.D. Performed By: #### H EPATIC, CBC, ESR, CRP, CREAT, CK #### [address] #### RNA POLYMR, ANTI TH TO, EVAN, U3 PRINT SHOP STENOGRAPHER, ANTIR, PM-SCL ABS #### [facility] , Hepatic Panelon 06-19-2022 Albumin [Mass/Vol] 3.6 g/dL Normal 3.2-5.5 [facility] Comment on above: Performed By: #### H EPATIC, CBC, ESR, CRP, CREAT, CK #### [facility] [address] [place] [address] #### RNA POLYMR, ANTI TH TO, EVAN, U3 PRINT SHOP STENOGRAPHER, ANTIR, PM-SCL ABS #### [facility] , Albumin/Globulin [Mass ratio] 1.0 {ratio} Normal [facility] Comment on above: Performed By: #### H EPATIC, CBC, ESR, CRP, CREAT, CK #### [facility] [address] [place] [address] [place] #### RNA POLYMR, ANTI TH TO, EVAN, U3 PRINT SHOP STENOGRAPHER, ANTIR, PM-SCL ABS #### [facility] , ALP [Catalytic activity/Vol] 68 U/L Normal 32-92 [facility] Comment on above: Performed By: #### H EPATIC, CBC, ESR, CRP, CREAT, CK #### [facility] [address] [place] [address] [place] #### RNA POLYMR, ANTI TH TO, EVAN, U3 PRINT SHOP STENOGRAPHER, ANTIR, PM-SCL ABS #### [facility] , ALT [Catalytic activity/Vol] 9 U/L Low 10-60 [facility] Comment on above: Performed By: #### H EPATIC, CBC, ESR, CRP, CREAT, CK #### [address] #### RNA POLYMR, ANTI TH TO, EVAN, U3 PRINT SHOP STENOGRAPHER, ANTIR, PM-SCL ABS #### [facility] , AST [Catalytic activity/Vol] 15 U/L Normal 10- [facility] Comment on above: Performed By: #### H EPATIC, CBC, ESR, CRP, CREAT, CK #### [facility] [address] [place] [address] [place] #### RNA POLYMR, ANTI TH TO, EVAN, U3 PRINT SHOP STENOGRAPHER, ANTIR, PM-SCL ABS #### [facility] , Bilirubin [Mass/Vol] 0.6 mg/dL Normal 0.3-1.2 [facility] Comment on above: Performed By: #### H EPATIC, CBC, ESR, CRP, CREAT, CK #### [facility] [address] [place] [address] [place] #### RNA POLYMR, ANTI TH TO, EVAN, U3 PRINT SHOP STENOGRAPHER, ANTIR, PM-SCL ABS #### [facility] , Bilirubin,Indirect 0.4 mg/dL Normal [facility] Comment on above: Performed By: #### H EPATIC, CBC, ESR, CRP, CREAT, CK #### [facility] [address] [place] [address] [place] #### RNA POLYMR, ANTI TH TO, EVAN, U3 PRINT SHOP STENOGRAPHER, ANTIR, PM-SCL ABS #### [facility] , Bilirubin.indirect [Mass/Vol] 0.2 mg/dL Normal 0.0-0.4 [facility] Comment on above: Performed By: #### H EPATIC, CBC, ESR, CRP, CREAT, CK #### [place] [address] [place] #### RNA POLYMR, ANTI TH TO, EVAN, U3 PRINT SHOP STENOGRAPHER, ANTIR, PM-SCL ABS #### [facility] , Globulin (S) [Mass/Vol] 3.5 g/dL Normal [facility] Comment on above: Performed By: #### H EPATIC, CBC, ESR, CRP, CREAT, CK #### [place] [address] [place] #### RNA POLYMR, ANTI TH TO, EVAN, U3 PRINT SHOP STENOGRAPHER, ANTIR, PM-SCL ABS #### [facility] , Protein [Mass/Vol] 7.1 g/dL Normal 6.1-7.9 [facility] Comment on above: Performed By: #### H EPATIC, CBC, ESR, CRP, CREAT, CK #### [place] [address] [place] #### RNA POLYMR, ANTI TH TO, EVAN, U3 PRINT SHOP STENOGRAPHER, ANTIR, PM-SCL ABS #### [facility] , PM-SCL Antibodieson 06-19-20 22 RAIZA PM-Scl Antibody <20 Normal <20 [facility] Comment on above: Result Comment: This test was developed and its performance characteristics determined by [facility]. It has not been cleared or approved by the Food and Drug Administration. Negative: <20 Weak Positive: 20 - 39 Moderate Positive: 40 - 80 Strong Positive: >80 Performed at: [employer] [address] [place] [address] [id number] Boot Liner Maker: Artemio Nair MD, Phone: [phone] Performed By: #### C UU, ADDONUAPLUS #### [place] [address] [place] #### C3, C4, CH50 #### [facility] , RNA Polymerase IIion 022 RNA Polymerase IIi <20 Normal <20 [facility] Comment on above: Result Comment: Nega tive: <20 Weak Positive: 20 - 39 Moderate Positive: 40 - 80 Strong Positive: >80 Performed at: [employer] [address] [place] [address] [phone] Boot Liner Maker: Artemio Nair MD, Phone: [phone] PERFORMED BY: [place] [address] PATHOLOGIST CAFETERIA TABLE ATTENDANT RADHA BULLARD M.D. Performed By: #### C UU, ADDONUAPLUS #### [address] #### C3, C4, CH50 #### [facility] , Th/To Antibodyon 06-19-2022 Th/To Antibody Negative Normal Negative [facility] Comment on above: Result Comment: This test was developed and its performance characteristics determined by [employer]. It has not been cleared or approved by the Food and Drug Administration. Performed at: [facility] [address] [place] [address] [phone] Boot Liner Maker: Artemio Nair MD, Phone: [phone] Performed By: #### C UU, ADDONUAPLUS #### [facility] [address] [place] [address] #### C3, C4, CH50 #### [facility] , U3 Rnpon 06-19-2022 U3 Activities Specialist Negative Normal Negative [facility] Comment on above: Result Comment: This test was developed and its performance characteristics determined by [facility] [employer]. It has not been cleared or approved by the Food and Drug Administration. Performed at: [employer] [facility] [address] [place] [address] [phone] Boot Liner Maker: Artemio Nair MD, Phone: [phone] PERFORMED BY: [place] [address] PATHOLOGIST CAFETERIA TABLE ATTENDANT RADHA BULLARD M.D. Performed By: #### C UU, ADDONUAPLUS #### [address] #### C3, C4, CH50 #### [facility] , Urine Cultureon 06-19-2022 Bacteria identified Cx Nom (U) No Growth 2 Days PERFORMED BY: [place] [address] PATHOLOGIST CAFETERIA TABLE ATTENDANT RADHA BULLARD M.D. [facility] Comment on above: Performed By: #### C UU, ADDONUAPLUS #### [address] #### C3, C4, CH50 #### [facility] , PROF CHEM 8 (BAS METB)on Anion gap [Moles/Vol] 12.5 mmol/L Normal [facility] Comment on above: Performed By: #### B MP #### [facility] [address] [address] [address] Reji Thomas Calcium [Mass/Vol] 8.9 mg/dL Normal 8.5-10.1 [facility] Comment on above: Performed By: #### B MP #### [facility] [address] [address] [address] Reji Thomas Chloride [Moles/Vol] 103 mmol/L Normal 98-[address] [facility] Comment on above: Performed By: #### B MP #### [facility] [address] [address] [address] Reji Thomas CO2 [Moles/Vol] 26.1 mmol/L Normal 21.0-32.0 [facility] Comment on above: Performed By: #### B MP #### [facility] [address] [address] [address] Reji Thomas Creatinine [Mass/Vol] 2.09 mg/dL Critically high 0.55-1.[address] [facility] Comment on above: Performed By: #### B MP #### [facility] [address] [address] [address] Reji Thomas EGFR-AF MACANESE 27 mL/min/1.73m2 Critically low >=[address] [facility] Comment on above: Performed By: #### B MP #### [facility] [address] [address] [address] Reji Thomas EGFR-NON AF MACANESE 23 mL/min/1.73m2 Critically low >=[address] [facility] Comment on above: Performed By: #### B MP #### [facility] [address] [address] [address] Reji Thomas Glucose [Mass/Vol] 96 mg/dL Normal 74-106 [facility] Comment on above: Performed By: #### B MP #### [facility] [address] [address] [address] Reji Thomas Potassium [Moles/Vol] 4.6 mmol/L Normal 3.5-5.[address] [facility] Comment on above: Performed By: #### B MP #### [facility] [address] [address] [address] Reji Thomas Sodium [Moles/Vol] 137 mmol/L Normal 136-145 [facility] Comment on above: Performed By: #### B MP #### [facility] [address] [address] [address] Reji Thomas Urea nitrogen [Mass/Vol] 38.0 mg/dL Critically high 7.0-18.[address] [facility] Comment on above: Performed By: #### B MP #### [facility] [address] [address] [address] Reji Thomas Urea nitrogen/Creatinine [Mass ratio] 18.2 mg/mg Normal [facility] Comment on above: Performed By: #### B MP #### [facility] [address] [address] [address] Reji Thomas PROTIMEon 06-04-2022 INR Coag (PPP) [Relative time] 2.51 {INR} Normal [facility] Comment on above: Performed By: #### B BIOINFORMATICS ASSISTANT, CMP, TSH, LIPID #### [facility] [address] [place] [address] Dr. Reji Thomas INR GUIDELINES SEE BELOW Normal [facility] Comment on above: Result Comment: SHY RED INR: 2.0 - 3.0 CONDITIONS NOT LISTED BELOW 2.5 - 3.5 FOR PROSTHETIC HEART VALVE REPLACEMENT 2.5 - 3.5 RECURRENT THROMBOSIS Performed By: #### B BIOINFORMATICS ASSISTANT, CMP, TSH, LIPID #### [facility] [address] [place] [address] Dr. Reji Thomas PT Coag (PPP) [Time] 25.5 s Critically high 9.0-11.6 [facility] Comment on above: Performed By: #### B BIOINFORMATICS ASSISTANT, CMP, TSH, LIPID #### [facility] [address] [place] [address] Dr. Reji Thomas BNPon 05-15-2022 Natriuretic peptide B (Bld) [Mass/Vol] 3661.0 pg/mL Critically high <=1,800.[address] [facility] Comment on above: Performed By: #### B BIOINFORMATICS ASSISTANT, CMP, TSH, LIPID #### [facility] [address] [place] [address] Dr. Reji Thomas CBC AUTO DIFFon 05-15-2022 BASO # 0.1 103/ul Normal 0.0-0.[address] [facility] Comment on above: Performed By: #### B MP #### [facility] [address] [place] [address] Dr. Reji Thomas Basophils/100 WBC (Bld) 1.1 % Normal 0.2-2.[address] [facility] Comment on above: Performed By: #### B MP #### [facility] [address] [place] [address] Dr. Reji Thomas EO # 0.5 103/ul Normal 0.0-0.7 [facility] Comment on above: Performed By: #### B MP #### [facility] [address] [place] [address] Dr. Reji Thomas Eosinophils/100 WBC (Bld) 6.5 % Normal 0.9-7.[address] [facility] Comment on above: Performed By: #### B MP #### [facility] [address] [place] [address] Dr. Reji Thomas Erythrocyte distribution width (RBC) [Ratio] 16.1 % Critically high 11.0-15.[address] [facility] Comment on above: Performed By: #### B MP #### [facility] [address] [place] [address] Dr. Reji Thomas Hematocrit (Bld) [Volume fraction] 35.0 % Critically low 36.0-48.[address] [facility] Comment on above: Performed By: #### B MP #### [facility] [address] [place] [address] Dr. Reji Tohmas Hemoglobin (Bld) [Mass/Vol] 11.1 g/dL Critically low 12.0-16.[address] [facility] Comment on above: Performed By: #### B MP #### [facility] [address] [place] [address] Dr. Reji Thomas IG # 0.02 10e3/ul Normal 0.00-0.[address] [facility] Comment on above: Performed By: #### B MP #### [facility] [address] [place] [address] Dr. Reji Thomas IG % 0.3 % Normal 0.0-0.[address] [facility] Comment on above: Performed By: #### B MP #### [facility] [address] [place] [address] Dr. Reji Thomas LYMPH # 1.6 103/ul Normal 1.2-3.[address] [facility] Comment on above: Performed By: #### B MP #### [facility] [address] [place] [address] Dr. Reji Thomas Lymphocytes/100 WBC (Bld) 22.4 % Normal 20.5-60.[address] [facility] Comment on above: Performed By: #### B MP #### [facility] [address] [place] [address] Dr. Reji Thomas MANUAL DIFF REQ NO Normal [facility] Comment on above: Performed By: #### B MP #### [facility] [address] [address] [address] Reji Thomas MCH (RBC) [Entitic mass] 26.4 pg Critically low 26.7-34.[address] [facility] Comment on above: Performed By: #### B MP #### [facility] [address] [address] [address] Reji Thomas MCHC (RBC) [Mass/Vol] 31.7 g/dL Normal 29.9-35.[address] [facility] Comment on above: Performed By: #### B MP #### [facility] [address] [address] [address] Reji Thomas MCV (RBC) [Entitic vol] 83.1 fL Normal 81.0-99.[address] [facility] Comment on above: Performed By: #### B MP #### [facility] [address] [place] [address] Dr. Reji Thomas MONO # 0.9 103/ul Critically high 0.3-0.8 [facility] Comment on above: Performed By: #### B MP #### [facility] [address] [place] [address] Dr. Reji Thomas Monocytes/100 WBC (Bld) 12.1 % Critically high 1.7-12.[address] [facility] Comment on above: Performed By: #### B MP #### [facility] [address] [address] [address] Reji Thomas NEUT # 4.1 103/ul Normal 1.4-6.5 [facility] Comment on above: Performed By: #### B MP #### [facility] [address] [address] [address] Reji Thomas Neutrophils/100 WBC (Bld) 57.6 % Normal 43.0-75.0 [facility] Comment on above: Performed By: #### B MP #### [facility] [address] [place] [address] Dr. Reji Thomas Platelet mean volume (Bld) [Entitic vol] 8.8 fL Critically low 9.5-13.[address] [facility] Comment on above: Performed By: #### B MP #### [facility] [address] [address] [address] Reji Thomas PLT 253 103/ul Normal 150-[address] [facility] Comment on above: Performed By: #### B MP #### [facility] [address] [place] [address] Dr. Reji Thomas RBC 4.21 106/ul Normal 4.20-5.[address] [facility] Comment on above: Performed By: #### B MP #### [facility] [address] [place] [address] Dr. Reji Thomas WBC 7.1 103/ul Normal 4.0-11.[address] [facility] Comment on above: Performed By: #### B MP #### [facility] [address] [place] [address] Dr. Reji Thomas PROF CHEM 8 (BAS METB)on Anion gap [Moles/Vol] 10.5 mmol/L Normal [facility] Comment on above: Performed By: #### B BIOINFORMATICS ASSISTANT, CMP, TSH, LIPID #### [facility] [address] [place] [address] Dr. Reji Thomas Calcium [Mass/Vol] 8.9 mg/dL Normal 8.5-10.1 [facility] Comment on above: Performed By: #### B BIOINFORMATICS ASSISTANT, CMP, TSH, LIPID #### [facility] [address] [place] [address] Dr. Reji Thomas Chloride [Moles/Vol] 104 mmol/L Normal 98-[address] [facility] Comment on above: Performed By: #### B BIOINFORMATICS ASSISTANT, CMP, TSH, LIPID #### [facility] [address] [place] [address] Dr. Reji Thomas CO2 [Moles/Vol] 29.5 mmol/L Normal 21.0-32.0 [facility] Comment on above: Performed By: #### B BIOINFORMATICS ASSISTANT, CMP, TSH, LIPID #### [facility] [address] [place] [address] Dr. Reji Thomas Creatinine [Mass/Vol] 1.73 mg/dL Critically high 0.55-1.[address] [facility] Comment on above: Performed By: #### B BIOINFORMATICS ASSISTANT, CMP, TSH, LIPID #### [facility] [address] [address] [address] Reji Thomas EGFR-AF MACANESE 34 mL/min/1.73m2 Critically low >=[address] [facility] Comment on above: Performed By: #### B BIOINFORMATICS ASSISTANT, CMP, TSH, LIPID #### [facility] [address] [address] [address] Reji Thomas EGFR-NON AF MACANESE 28 mL/min/1.73m2 Critically low >=[address] [facility] Comment on above: Performed By: #### B BIOINFORMATICS ASSISTANT, CMP, TSH, LIPID #### [facility] [address] [place] [address] Dr. Reji Thomas Glucose [Mass/Vol] 79 mg/dL Normal 74-106 [facility] Comment on above: Performed By: #### B BIOINFORMATICS ASSISTANT, CMP, TSH, LIPID #### [facility] [address] [place] [address] Dr. Reji Thomas Potassium [Moles/Vol] 4.0 mmol/L Normal 3.5-5.[address] [facility] Comment on above: Performed By: #### B BIOINFORMATICS ASSISTANT, CMP, TSH, LIPID #### [facility] [address] [place] [address] Dr. Reji Thomas Sodium [Moles/Vol] 140 mmol/L Normal 136-145 [facility] Comment on above: Performed By: #### B BIOINFORMATICS ASSISTANT, CMP, TSH, LIPID #### [facility] [address] [address] [address] Reji Thomas Urea nitrogen [Mass/Vol] 22.0 mg/dL Critically high 7.0-18.[address] [facility] Comment on above: Performed By: #### B BIOINFORMATICS ASSISTANT, CMP, TSH, LIPID #### [facility] [address] [address] [address] Reji Thomas Urea nitrogen/Creatinine [Mass ratio] 12.7 mg/mg Normal [facility] Comment on above: Performed By: #### B BIOINFORMATICS ASSISTANT, CMP, TSH, LIPID #### [facility] [address] [address] [address] Reji Thomas PROTIMEon 05-15-2022 INR Coag (PPP) [Relative time] 2.53 {INR} Normal [facility] Comment on above: Performed By: #### B BIOINFORMATICS ASSISTANT, CMP, TSH, LIPID #### [facility] [address] [address] [address] Reji Thomas INR GUIDELINES SEE BELOW Normal [facility] Comment on above: Result Comment: SHY RED INR: 2.0 - 3.0 CONDITIONS NOT LISTED BELOW 2.5 - 3.5 FOR PROSTHETIC HEART VALVE REPLACEMENT 2.5 - 3.5 RECURRENT THROMBOSIS Performed By: #### B BIOINFORMATICS ASSISTANT, CMP, TSH, LIPID #### [facility] [address] [address] [address] Reji Thomas PT Coag (PPP) [Time] 25.7 s Critically high 9.0-11.[address] [facility] Comment on above: Performed By: #### B BIOINFORMATICS ASSISTANT, CMP, TSH, LIPID #### [facility] [address] [place] [address] Dr. Reji Thomas ECHOCARDIO M/2D COMPLETEon 0 05-04-2022 ECHOCARDIO M/2D COMPLETE Patient: INEZ JUAREZ Exam Date: 05/04/2022 : 1940 Gender:F Ordering : DR JENN PRADO M.D. Admission #: [id number] Family : Order #: [id number] CLICK HERE TO VIEW EXAM ECHOCARDIOGRAM REPORT [...] Area(A4C): 27.20 cm2 Left Atrium Systolic Volume(A2C): 466154 mm3 Left Atrium Systolic Volume(A4C): 05274 mm3 Mitral Valve MV E to A Ratio: 2.60 Deceleration Bonner: 80904 mm/s2 Mitral Valve A-Wave Peak Velocity: 58.60 [...] 1:80 Positive >1:80 Performed By: #### B BIOINFORMATICS ASSISTANT, CMP, TSH, LIPID #### [facility] [address] [address] [address] Reji Thomas Centriole Pattern Normal [facility] Comment on above: Performed By: #### B BIOINFORMATICS ASSISTANT, CMP, TSH, LIPID #### [facility] [address] [address] [address] Reji Thomas Centromere Pattern Normal [facility] Comment on above: Performed By: #### B BIOINFORMATICS ASSISTANT, CMP, TSH, LIPID #### [facility] [address] [address] [address] Reji Thomas Homogeneous Pattern 1:320 Critically high [facility] Comment on above: Result Comment: ICAP nomenclature: AC-1 Performed By: #### B BIOINFORMATICS ASSISTANT, CMP, TSH, LIPID #### [facility] [address] [address] [address] Reji Thomas Midbody Pattern Normal [facility] Comment on above: Performed By: #### B BIOINFORMATICS ASSISTANT, CMP, TSH, LIPID #### [facility] [address] [address] [address] Reji Thomas Note: Comment Normal [facility] [...] titers Nucleosomes, Histones Drug-induced SLE Speckled Sm, PRINT SHOP STENOGRAPHER, SCL-70, SLE,MCTD,PSS (diffuse form), SS-A/SS-B Sjogrens Nucleolar SCL-70, PM-1/SCL High titers Scleroderma, PM/DM Centromere Centromere PSS (limited form) w/Crest syndrome variable Nuclear Dot [id number] Primary Biliary Cirrhosis Nuclear GP210, Primary Biliary Cirrhosis Membrane eleonora A,B,C Performed By: #### B BIOINFORMATICS ASSISTANT, CMP, TSH, LIPID #### [facility] [address] [address] [address] Reji Thomas Nuclear Dot Pattern Normal [facility] Comment on above: Performed By: #### B BIOINFORMATICS ASSISTANT, CMP, TSH, LIPID #### [facility] [address] [address] [address] Reji Thomas Nuclear Membrane Pattern Normal [facility] Comment on above: Performed By: #### B BIOINFORMATICS ASSISTANT, CMP, TSH, LIPID #### [facility] [address] [address] [address] Reji Thomas Nucleolar Pattern Normal [facility] Comment on above: Performed By: #### B BIOINFORMATICS ASSISTANT, CMP, TSH, LIPID #### [facility] [address] [address] [address] Reji Thomas PCNA Pattern Normal [facility] Comment on above: Performed By: #### B BIOINFORMATICS ASSISTANT, CMP, TSH, LIPID #### [facility] [address] [address] [address] Reji Thomas Speckled Pattern Normal [facility] Comment on above: Performed By: #### B BIOINFORMATICS ASSISTANT, CMP, TSH, LIPID #### [facility] [address] [address] [address] Reji Thomas Spindle Apparatus Pattern Normal [facility] Comment on above: Performed By: #### B BIOINFORMATICS ASSISTANT, CMP, TSH, LIPID #### [facility] [address] [address] [address] Reji Thomas ANCA (ANTINEUTROPHIL CYTOPLA MSMIC ABon 04-18-2022 Atypical pANCA <1:20 Normal Neg:<1:20 [facility] Comment on above: Result Comment: Seru m is slightly hemolyzed The atypical pANCA pattern has been observed in a significant percentage of patients with ulcerative colitis, primary sclerosing cholangitis and autoimmune hepatitis. Performed By: #### B MP #### [facility] [address] [address] [address] Reji Thomas Cytoplasmic (C-ANCA) <1:20 Normal Neg:<1:[address] [facility] Comment on above: Result Comment: Seru m is slightly hemolyzed Performed By: #### B MP #### [facility] [address] [address] [address] Reji Thomas Perinuclear (P-ANCA) <1:20 Normal [...] up testing of positive sera with both PA-3 and MPO-ANCA enzyme immunoassays. As many as 5% serum samples are positive only by EIA. Ref. AM J Clin Pathol 1999;111:507-513. Performed By: #### B MP #### [facility] [address] [place] [address] Dr. Reji Thomas ANTISCLERODERMA ABon 022 Antiscleroderma-70 Antibodies 0.3 AI Normal 0.0-0.[address] [facility] Comment on above: Performed By: #### B BIOINFORMATICS ASSISTANT, CMP, TSH, LIPID #### [facility] [address] [address] [address] Reji Thomas T3 UPTAKEon 04-18-2022 Free Thyroxine Index 1.8 Normal 1.2-4.[address] [facility] Comment on above: Performed By: #### B BIOINFORMATICS ASSISTANT, CMP, TSH, LIPID #### [facility] [address] [address] [address] Reji Thomas T3 Uptake 23 % Critically low 24-39 [facility] Comment on above: Performed By: #### B BIOINFORMATICS ASSISTANT, CMP, TSH, LIPID #### [facility] [address] [address] [address] Reji Thomas T4 LABCORPon 04-18-2022 T4 [Mass/Vol] 7.8 ug/dL Normal 4.5-12.0 [facility] Comment on above: Performed By: #### B BIOINFORMATICS ASSISTANT, CMP, TSH, LIPID #### [facility] [address] [place] [address] Dr. Reji Thomas BNPon 04-16-2022 Natriuretic peptide B (Bld) [Mass/Vol] 2870.0 pg/mL Critically high <=1,800.0 [facility] Comment on above: Result Comment: repe ated Performed By: #### B BIOINFORMATICS ASSISTANT, CMP, TSH, LIPID #### [facility] [address] [place] [address] Dr. Reji Thomas CBC AUTO DIFFon 04-16-2022 BASO # 0.1 103/ul Normal 0.0-0.[address] [facility] Comment on above: Performed By: #### B BIOINFORMATICS ASSISTANT, CMP, TSH, LIPID #### [facility] [address] [place] [address] Dr. Reji Thomas Basophils/100 WBC (Bld) 0.9 % Normal 0.2-2.[address] [facility] Comment on above: Performed By: #### B BIOINFORMATICS ASSISTANT, CMP, TSH, LIPID #### [facility] [address] [place] [address] Dr. Reji Thomas EO # 0.3 103/ul Normal 0.0-0.[address] [facility] Comment on above: Performed By: #### B BIOINFORMATICS ASSISTANT, CMP, TSH, LIPID #### [facility] [address] [place] [address] Dr. Reji Thomas Eosinophils/100 WBC (Bld) 3.9 % Normal 0.9-7.0 [facility] Comment on above: Performed By: #### B BIOINFORMATICS ASSISTANT, CMP, TSH, LIPID #### [facility] [address] [place] [address] Dr. Reji Thomas Erythrocyte distribution width (RBC) [Ratio] 15.9 % Critically high 11.0-15.[address] [facility] Comment on above: Performed By: #### B BIOINFORMATICS ASSISTANT, CMP, TSH, LIPID #### [facility] [address] [place] [address] Dr. Reji Thomas Hematocrit (Bld) [Volume fraction] 38.1 % Normal 36.0-48.[address] [facility] Comment on above: Performed By: #### B BIOINFORMATICS ASSISTANT, CMP, TSH, LIPID #### [facility] [address] [place] [address] Dr. Reji Thomas Hemoglobin (Bld) [Mass/Vol] 12.1 g/dL Normal 12.0-16.[address] [facility] Comment on above: Performed By: #### B BIOINFORMATICS ASSISTANT, CMP, TSH, LIPID #### [facility] [address] [place] [address] Dr. Reji Thomas IG # 0.02 10e3/ul Normal 0.00-0.[address] [facility] Comment on above: Performed By: #### B BIOINFORMATICS ASSISTANT, CMP, TSH, LIPID #### [facility] [address] [place] [address] Dr. Reji Thomas IG % 0.3 % Normal 0.0-0.[address] [facility] Comment on above: Performed By: #### B BIOINFORMATICS ASSISTANT, CMP, TSH, LIPID #### [facility] [address] [place] [address] Dr. Reji Thomas LYMPH # 1.6 103/ul Normal 1.2-3.8 [facility] Comment on above: Performed By: #### B BIOINFORMATICS ASSISTANT, CMP, TSH, LIPID #### [facility] [address] [place] [address] Dr. Reji Thomas Lymphocytes/100 WBC (Bld) 22.6 % Normal 20.5-60.[address] [facility] Comment on above: Performed By: #### B BIOINFORMATICS ASSISTANT, CMP, TSH, LIPID #### [facility] [address] [place] [address] Dr. Reji Thomas MANUAL DIFF REQ NO Normal [facility] Comment on above: Performed By: #### B BIOINFORMATICS ASSISTANT, CMP, TSH, LIPID #### [facility] [address] [place] [address] Dr. Reji Thomas MCH (RBC) [Entitic mass] 26.5 pg Critically low 26.7-34.[address] [facility] Comment on above: Performed By: #### B BIOINFORMATICS ASSISTANT, CMP, TSH, LIPID #### [facility] [address] [place] [address] Dr. Reji Thomas MCHC (RBC) [Mass/Vol] 31.8 g/dL Normal 29.9-35.2 [facility] Comment on above: Performed By: #### B BIOINFORMATICS ASSISTANT, CMP, TSH, LIPID #### [facility] [address] [place] [address] Dr. Reji Thomas MCV (RBC) [Entitic vol] 83.4 fL Normal 81.0-99.0 [facility] Comment on above: Performed By: #### B BIOINFORMATICS ASSISTANT, CMP, TSH, LIPID #### [facility] [address] [place] [address] Dr. Reji Thomas MONO # 0.6 103/ul Normal 0.3-0.8 [facility] Comment on above: Performed By: #### B BIOINFORMATICS ASSISTANT, CMP, TSH, LIPID #### [facility] [address] [place] [address] Dr. Reji Thomas Monocytes/100 WBC (Bld) 9.3 % Normal 1.7-12.[address] [facility] Comment on above: Performed By: #### B BIOINFORMATICS ASSISTANT, CMP, TSH, LIPID #### [facility] [address] [place] [address] Dr. Reji Thomas NEUT # 4.3 103/ul Normal 1.4-6.[address] [facility] Comment on above: Performed By: #### B BIOINFORMATICS ASSISTANT, CMP, TSH, LIPID #### [facility] [address] [place] [address] Dr. Reji Thomas Neutrophils/100 WBC (Bld) 63.0 % Normal 43.0-75.0 [facility] Comment on above: Performed By: #### B BIOINFORMATICS ASSISTANT, CMP, TSH, LIPID #### [facility] [address] [place] [address] Dr. Reji Thomas Platelet mean volume (Bld) [Entitic vol] 9.2 fL Critically low 9.5-13.5 [facility] Comment on above: Performed By: #### B BIOINFORMATICS ASSISTANT, CMP, TSH, LIPID #### [facility] [address] [address] [address] Reji Thomas PLT 211 103/ul Normal 150-[address] [facility] Comment on above: Performed By: #### B BIOINFORMATICS ASSISTANT, CMP, TSH, LIPID #### [facility] [address] [address] [address] Reji Thomas RBC 4.57 106/ul Normal 4.20-5.[address] [facility] Comment on above: Performed By: #### B BIOINFORMATICS ASSISTANT, CMP, TSH, LIPID #### [facility] [address] [place] [address] Dr. Reji Thomas WBC 6.9 103/ul Normal 4.0-11.[address] [facility] Comment on above: Performed By: #### B BIOINFORMATICS ASSISTANT, CMP, TSH, LIPID #### [facility] [address] [place] [address] Dr. Reji Thomas GLYCOHEMOGLOBIN A1Con 2021 ADA RECOMMENDATION SEE BELOW Normal [facility] Comment on above: Result Comment: ADA RECOMMENDED LIMIT 4.0 - 6.0 ADA THERAPEUTIC TARGET < 7.0 ACTION SUGGESTED > 7.0 Performed By: #### B BIOINFORMATICS ASSISTANT, CMP, TSH, LIPID #### [facility] [address] [place] [address] Dr. Reji Thomas Glucose [Mass/Vol] 100 mg/dL Normal [facility] Comment on above: Performed By: #### B BIOINFORMATICS ASSISTANT, CMP, TSH, LIPID #### [facility] [address] [place] [address] Dr. Reji Thomas HbA1c (Bld) [Mass fraction] 5.1 % Normal 4.5-6.[address] [facility] Comment on above: Performed By: #### B BIOINFORMATICS ASSISTANT, CMP, TSH, LIPID #### [facility] [address] [place] [address] Dr. Reji Thomas IRONon 04-16-2022 Iron [Mass/Vol] 42.0 ug/dL Critically low 50.0-170.0 [facility] Comment on above: Performed By: #### B BIOINFORMATICS ASSISTANT, CMP, TSH, LIPID #### [facility] [address] [address] [address] Reji Thomas LIPID PROFILEon 04-16-2022 CHOL-HDL RATIO NORM SEE BELOW Normal [facility] Comment on above: Result Comment: 3.3 - 4.4 LOW RISK 4.4 - 7.1 AVERAGE RISK 7.1 - 11.0 MODERATE RISK >11.0 HIGH RISK Performed By: #### B BIOINFORMATICS ASSISTANT, CMP, TSH, LIPID #### [facility] [address] [address] [address] Reji Thomas Cholesterol [Mass/Vol] 176 mg/dL Normal <=[address] [facility] Comment on above: Performed By: #### B BIOINFORMATICS ASSISTANT, CMP, TSH, LIPID #### [facility] [address] [place] [address] Dr. Reji Thomas Cholesterol in HDL [Mass/Vol] 52 mg/dL Normal 40-[address] [facility] Comment on above: Performed By: #### B BIOINFORMATICS ASSISTANT, CMP, TSH, LIPID #### [facility] [address] [address] [address] Reji Thomas Cholesterol in LDL [Mass/Vol] 102.8 mg/dL Normal [facility] Comment on above: Performed By: #### B BIOINFORMATICS ASSISTANT, CMP, TSH, LIPID #### [facility] [address] [address] [address] Reji Thomas Cholesterol.total/Ch olesterol in HDL [Mass ratio] 3.4 {ratio} Normal [facility] Comment on above: Performed By: #### B BIOINFORMATICS ASSISTANT, CMP, TSH, LIPID #### [facility] [address] [place] [address] Dr. Reji Thomas HDL NORMAL > or = 60 mg/dl - LOW CARDIOVASCULAR RISK <40 mg/dl - HIGH CARDIOVASCULAR RISK Normal [facility] Comment on above: Performed By: #### B BIOINFORMATICS ASSISTANT, CMP, TSH, LIPID #### [facility] [address] [place] [address] Dr. Reji Thomas LDL CALC NORMAL SEE BELOW Normal [facility] Comment on above: Result Comment: <100 mg/dl OPTIMAL 100 - 129 mg/dl NEAR OR ABOVE OPTIMAL 130 - 159 mg/dl BORDERLINE HIGH 160 - 189 mg/dl HIGH >190 mg/dl VERY HIGH Performed By: #### B BIOINFORMATICS ASSISTANT, CMP, TSH, LIPID #### [facility] [address] [address] [address] Reji Thomas Triglyceride [Mass/Vol] 106 mg/dL Normal <=[address] [facility] Comment on above: Performed By: #### B BIOINFORMATICS ASSISTANT, CMP, TSH, LIPID #### [facility] [address] [address] [address] Reji Thomas VLDL CALC 21.2 mg/dL Normal [facility] Comment on above: Performed By: #### B BIOINFORMATICS ASSISTANT, CMP, TSH, LIPID #### [facility] [address] [place] [address] Dr. Reji Thomas PROF 14(COMP METB)on 022 Albumin [Mass/Vol] 3.6 g/dL Normal 3.4-5.0 [facility] Comment on above: Performed By: #### B BIOINFORMATICS ASSISTANT, CMP, TSH, LIPID #### [facility] [address] [place] [address] Dr. Reji Thomas Albumin/Globulin [Mass ratio] 0.9 {ratio} Normal [facility] Comment on above: Performed By: #### B BIOINFORMATICS ASSISTANT, CMP, TSH, LIPID #### [facility] [address] [place] [address] Dr. Reji Thomas ALP [Catalytic activity/Vol] 62 U/L Normal 46-[address] [facility] Comment on above: Performed By: #### B BIOINFORMATICS ASSISTANT, CMP, TSH, LIPID #### [facility] [address] [place] [address] Dr. Reji Thomas ALT [Catalytic activity/Vol] 14 U/L Normal 14-[address] [facility] Comment on above: Performed By: #### B BIOINFORMATICS ASSISTANT, CMP, TSH, LIPID #### [facility] [address] [place] [address] Dr. Reji Thomas Anion gap [Moles/Vol] 14.5 mmol/L Normal [facility] Comment on above: Performed By: #### B BIOINFORMATICS ASSISTANT, CMP, TSH, LIPID #### [facility] [address] [place] [address] Dr. Reji Thomas AST [Catalytic activity/Vol] 17 U/L Normal 15-[address] [facility] Comment on above: Performed By: #### B BIOINFORMATICS ASSISTANT, CMP, TSH, LIPID #### [facility] [address] [address] [address] Reji Thomas Bilirubin [Mass/Vol] 0.6 mg/dL Normal 0.2-1.[address] [facility] Comment on above: Performed By: #### B BIOINFORMATICS ASSISTANT, CMP, TSH, LIPID #### [facility] [address] [address] [address] Reji Thomas Calcium [Mass/Vol] 8.8 mg/dL Normal 8.5-10.1 [facility] Comment on above: Performed By: #### B BIOINFORMATICS ASSISTANT, CMP, TSH, LIPID #### [facility] [address] [address] [address] Reji Thomas Chloride [Moles/Vol] 102 mmol/L Normal 98-107 [facility] Comment on above: Performed By: #### B BIOINFORMATICS ASSISTANT, CMP, TSH, LIPID #### [facility] [address] [address] [address] Reji Thomas CO2 [Moles/Vol] 26.3 mmol/L Normal 21.0-32.0 [facility] Comment on above: Performed By: #### B BIOINFORMATICS ASSISTANT, CMP, TSH, LIPID #### [facility] [address] [address] [address] Reji Thomas Creatinine [Mass/Vol] 1.76 mg/dL Critically high 0.55-1.[address] [facility] Comment on above: Performed By: #### B BIOINFORMATICS ASSISTANT, CMP, TSH, LIPID #### [facility] [address] [address] [address] Reji Thomas EGFR-AF MACANESE 33 mL/min/1.73m2 Critically low >=60 [facility] Comment on above: Performed By: #### B BIOINFORMATICS ASSISTANT, CMP, TSH, LIPID #### [facility] [address] [address] [address] Reji Thomas EGFR-NON AF MACANESE 28 mL/min/1.73m2 Critically low >=60 [facility] Comment on above: Performed By: #### B BIOINFORMATICS ASSISTANT, CMP, TSH, LIPID #### [facility] [address] [place] [address] Dr. Reji Thomas Globulin (S) [Mass/Vol] 4.2 g/dL Normal [facility] Comment on above: Performed By: #### B BIOINFORMATICS ASSISTANT, CMP, TSH, LIPID #### [facility] [address] [place] [address] Dr. Reji Thomas Glucose [Mass/Vol] 81 mg/dL Normal 74-106 [facility] Comment on above: Performed By: #### B BIOINFORMATICS ASSISTANT, CMP, TSH, LIPID #### [facility] [address] [place] [address] Dr. Reji Thomas Potassium [Moles/Vol] 3.8 mmol/L Normal 3.5-5.1 [facility] Comment on above: Performed By: #### B BIOINFORMATICS ASSISTANT, CMP, TSH, LIPID #### [facility] [address] [place] [address] Dr. Reji Thomas Protein [Mass/Vol] 7.8 g/dL Normal 6.4-8.2 [facility] Comment on above: Performed By: #### B BIOINFORMATICS ASSISTANT, CMP, TSH, LIPID #### [facility] [address] [place] [address] Dr. Reji Thomas Sodium [Moles/Vol] 139 mmol/L Normal 136-145 [facility] Comment on above: Performed By: #### B BIOINFORMATICS ASSISTANT, CMP, TSH, LIPID #### [facility] [address] [place] [address] Dr. Reji Thomas Urea nitrogen [Mass/Vol] 27.0 mg/dL Critically high 7.0-18.[address] [facility] Comment on above: Performed By: #### B BIOINFORMATICS ASSISTANT, CMP, TSH, LIPID #### [facility] [address] [place] [address] Dr. Reji Thomas Urea nitrogen/Creatinine [Mass ratio] 15.3 mg/mg Normal [facility] Comment on above: Performed By: #### B BIOINFORMATICS ASSISTANT, CMP, TSH, LIPID #### [facility] [address] [place] [address] Dr. Reji Thomas PROTIMEon 04-16-2022 INR Coag (PPP) [Relative time] 1.92 {INR} Normal [facility] Comment on above: Performed By: #### B BIOINFORMATICS ASSISTANT, CMP, TSH, LIPID #### [facility] [address] [place] [address] Dr. Reji Thomas INR GUIDELINES SEE BELOW Normal [facility] Comment on above: Result Comment: SHY RED INR: 2.0 - 3.0 CONDITIONS NOT LISTED BELOW 2.5 - 3.5 FOR PROSTHETIC HEART VALVE REPLACEMENT 2.5 - 3.5 RECURRENT THROMBOSIS Performed By: #### B BIOINFORMATICS ASSISTANT, CMP, TSH, LIPID #### [facility] [address] [place] [address] Dr. Reji Thomas PT Coag (PPP) [Time] 19.9 s Critically high 9.0-11.6 [facility] Comment on above: Performed By: #### B BIOINFORMATICS ASSISTANT, CMP, TSH, LIPID #### [facility] [address] [place] [address] Dr. Reji Thomas [facility] 37 mm/hr Critically high <=30 [facility] Comment on above: Performed By: #### B BIOINFORMATICS ASSISTANT, CMP, TSH, LIPID #### [facility] [address] [place] [address] Dr. Reji Thomas TSHon 04-16-2022 TSH 1.941 uIU/mL Normal 0.358-3.740 [facility] Comment on above: Performed By: #### B BIOINFORMATICS ASSISTANT, CMP, TSH, LIPID #### [facility] [address] [place] [address] Dr. Reji Thomas TSH RANGE SEE BELOW Normal [facility] Comment on above: Result Comment: <0.3 4 UIU/ml HYPERTHYROID 0.34-5.60 UIU/ml EUTHYROID >5.60 UIU/ml HYPOTHYROID Performed By: #### B BIOINFORMATICS ASSISTANT, CMP, TSH, LIPID #### [facility] [address] [place] [address] Dr. Reji Thomas VITAMIN D 25 OHon 04-16-2022 VIT D 25-OH 56.6 ng/mL Normal [facility] Comment on above: Performed By: #### B BIOINFORMATICS ASSISTANT, CMP, TSH, LIPID #### [facility] [address] [place], [place] [address] Dr. Reji Thomas VIT D RANGES SEE BELOW Normal [facility] Comment on above: Result Comment: <20 ng/mL Vit D deficient 20 - <30 ng/mL Vit D insufficient 30 - 100 ng/mL Vit D sufficient >100 ng/mL Potential Toxicity Performed By: #### B BIOINFORMATICS ASSISTANT, CMP, TSH, LIPID #### [facility] [address] [place], [place] [address] Dr. Reji Thomas Cardiovascular Lab Reporton 11-02-2021 Cardiovascular Lab Report [facility] Patient Name: Inez Juarez MR #: [id number] [facility] Physician: Jenn Prado M.D. Department of Service Date: 11/01/2021 Medicine Birthdate: 1940 Division of Room #: Cardiology Adult Cardiovascular Services [place] [address] Cardiovascular Laboratory Report INDICATION: The patient is [...] She signed consent. She was brought to medical lab assistant in a fasting state. The right neck area was prepped and draped in usual fashion. Micropuncture technique and ultrasound guidance were used for access in the right internal jugular vein. A 6-Honduran x 11 cm sheath was placed. A 6-Honduran Hernández catheter was used for heart catheterization [...] Prado M.D. Date Trans: 11/01/2021 11:22 P/alondra [id number] cc: Bruce Rizvi M.D. [address], [facility] [id number] Shubuta [facility] Cardiovascular Lab Reporton 06-02-2021 Cardiovascular Lab Report [facility] Patient Name: Inez Juarez MR #: [id number] [facility] Physician: Jenn Prado M.D. Department of Service Date: 06/02/2021 Medicine Birthdate: 1940 Division of Room #: CC Cardiology Adult Cardiovascular Services [place] [address] Cardiovascular Laboratory Report INDICATION: The patient is [...] the informed consent. She was brought to medical lab assistant in a fasting state. The right neck area was prepped and draped in usual fashion. Using micropuncture technique and ultrasound guidance, the right internal jugular vein was accessed and a 6-Honduran x 11 cm sheath was placed. A 6-Honduran Hernández catheter was used for heart catheterization [...] Prado M.D. Date Trans: 06/02/2021 02:42 P/mmo [id number] cc: Bruce Rizvi M.D. [address] [place] [address] [facility] Encounters Encounter Date Encounter Type Care Provider Facility Start: 06-28-2025 End: 06-28-2025 ambulatory JENN PRADO [facility] Start: 03-22-2023 End: 03-23-[address] [...] Start: 11-01-2021 End: 11-02-2021 ambulatory PROVIDER UNKNOWN Facility:[facility] Start: 06-02-2021 End: 06-03-2021 ambulatory PROVIDER UNKNOWN Facility:[facility] Payers Date Payer Category Payer Medicare [id number] 1961 Medicare [id number] 1961 Medicare [id number] 1961 Self-pay [id number] 1940 Unknown [id number] 2.16.8 [id number] 1940 Unknown [id number] 2.16.8 40.1.391407.3.579.2.647 1940 Unknown [id number] 2.16.84 0.1.199180.3.579.2.593 1938 Unknown [id number] 2.16.84 0.1.979697.3.579.2.593 1938 Unknown [id number] 2.16.84 0.1.409350.3.579.2.593 1938 Unknown [id number] 2.16.84 0.1.769341.3.579.2.593 1938 Unknown [id number] 2.16.84 0.1.970462.3.579.2.593 1938 Unknown [id number] 2.16.84 0.1.438273.3.579.2.593 1938 Unknown [id number] 2.16.84 0.1.828267.3.579.2.593 1938 Unknown [id number] 2.16.84 0.1.795472.3.579.2.593 1938 Unknown [id number] 2.16.84 0.1.714381.3.579.2.593 1938 Unknown [id number] 2.16.84 0.1.473864.3.579.2.593 1938 Unknown [id number] 2.16.84 0.1.476808.3.579.2.593 1938 Unknown [id number] 2.16.84 0.1.935939.3.579.2.593 1938 Unknown [id number] 2.16.84 0.1.261331.3.579.2.593 1938 Unknown [id number] 2.16.84 0.1.534406.3.579.2.593 1938 Unknown [id number] 2.16.84 0.1.168832.3.579.2.593 1938 Unknown [id number] 2.16.84 0.1.902439.3.579.2.593 1938 Unknown [id number] 2.16.84 0.1.298237.3.579.2.593 1938 Unknown [id number] 2.16.84 0.1.411855.3.579.2.593 1938 Unknown [id number] 2.16.84 0.1.949595.3.579.2.593 Private Health Insurance LAB [id number] Progress note 06-28-2025 Note Date & Type Note Facility 06-28-2025 Note MD Cardiology - [facility] Petrona Juarez is a 85 y.o. year old female patient being seen for a 1 year follow up with recent Echo. Patient states she feels pretty good just tired. Patient denies chest pain,palpitations/racing heart, dizziness/lightheadedness. Patient complains of SOB, BOURGEOIS, leg swelling, bruising/bleeding/discoloration, and loss of balance. Patient Active Problem List Diagnosis Atrial fibrillation ([facility]/HCC) Essential hypertension Hyperlipidemia Gastroesophageal reflux disease Mitral valve disorder Pulmonary hypertension (CMS/HCC) Renal failure syndrome CHF (congestive heart failure) ([facility]) Chronic kidney disease Gout Abnormal result [...] Positive for (more content not included)... [facility] Summary Purpose Family History No Family History Records FoundNo Family History Records FoundNo Family History Records FoundNo Family History Records Found Advance Directives No Advanced Directives Records FoundNo Advanced Directives Records FoundNo Advanced Directives Records FoundNo Advanced Directives Records Found Additional Source Comments INFORMATION SOURCE (unrecogn ized section and content) DATE CREATED AUTHOR 11/03/[address] [facility] DATE CREATED AUTHOR AUTHOR'S ORGANIZ ATION 07/05/2022 [facility] DATE CREATED AUTHOR AUTHOR'S ORGANIZ ATION 03/23/2023 [facility] DATE CREATED AUTHOR AUTHOR'S ORGANIZ ATION 08/06/[address] [facility] FOR RECORDS PERTAINING TO PATIENTS WHO [...] BE BASED ON THE PRIMARY CLINICAL RECORDS. [facility]. provides no warranty or guarantee of the accuracy or completeness of information in this document.
== END 2025-08-25 13:05 | disposition home or self-care (01) ==
LOC: CARD 13:04
PROVIDERS: PCP Family Medicine; Visit Provider Internal Medicine Interventional Cardiology
DX: I27.20 Pulmonary hypertension, unspecified (principal)
CPT/HCPCS: 93306

== ENCOUNTER 2025-09-06 11:26 | Outpatient (RCR) | payer MEDICARE, SELFPAY ==
[2025-09-06 11:25] VITALS: BP 128/57; PULSE 69; TEMP 36.3; O2SAT 93
[2025-09-06] MEDS: FERRIC CARBOXYMALTOSE 750 MG in 0.9 % SODIUM CHLORIDE 250 ML 795 MG IV (11:39)
== END 2025-09-10 23:59 | disposition home or self-care (01) ==
LOC: INF 11:26
PROVIDERS: PCP Family Medicine; Visit Provider Family Medicine
DX: D50.9 Iron deficiency anemia, unspecified (principal)
CPT/HCPCS: 96365; J1439

== ENCOUNTER 2025-09-13 07:38 | Outpatient (RCR) | payer MEDICARE, SELFPAY ==
[2025-09-13 10:31] VITALS: BP 143/74; PULSE 66; TEMP 37; O2SAT 95
[2025-09-13] MEDS: FERRIC CARBOXYMALTOSE 750 MG in 0.9 % SODIUM CHLORIDE 250 ML 530 MG IV (10:42)
== END 2025-10-10 23:59 | disposition home or self-care (01) ==
LOC: INF 07:38
PROVIDERS: PCP Family Medicine; Visit Provider Family Medicine
DX: D50.9 Iron deficiency anemia, unspecified (principal)
CPT/HCPCS: 96365; J1439

== ENCOUNTER 2025-10-26 13:58 | Outpatient (OUT) | payer MEDICARE, SELFPAY ==
--- OUTSIDE RECORDS SUMMARY | 2025-08-25 05:45 | XMS_ITS ---
Author Organization [facility] in [place] Address [address] [place] [address] Care Team Providers Care Global Climate Change Analyst Name Role Phone Regino Rizvi Primary Care Provider [phone] REASON FOR VISIT TCM d/c TBH SOB Encounters Encounter Location Date Provider Diagnosis [facility] [address] [place] [address] 08/25/2025 Regino Rizvi Plan Of Treatment No Information Progress Notes * Inez JUAREZDOB:1940 (85 yo F)Acc No.[id number]:08/25/2025 UNLOCKED PROGRESS NOTE Progress Note Patient: Inez SHARPE :?Yoel Rizvi ([facility]), MDDOB:1940???Age: 85 Y???Sex:FemaleDate:08/25/2025Phone:[phone]:[facility] [place], [id number] Subjective: * Chief Complaints: * 1 . TCM d/c TBH SOB. * Medical History: Objective: * Vitals: Assessment: Plan: * Treatment: * * Electronic signature of Regino Rizvi MD, [id number] on 10/26/2025 at 02:01 PM EST Sign off status: PendingVisit Status:?N/S N/C (No Show/No Charge) * Provider: Melvin Rizvi MD (TTC) Date: 1 Generated for Printing/Faxing/eTransmitting on:?10/26/2025 02:01 PM EST
--- OUTSIDE RECORDS SUMMARY | 2025-10-26 14:01 | XMS_ITS | Encounter Summary ---
Author Organization [facility] Address [address] [place] [address] Care Team Providers Care Health Consultant Name Role Phone Yoel Rizvi MD Primary Care Provider [phone] Reason for Visit * ReasonOnset DateCommentsSpecialty Dcpqdyr4909/27/2025Orenitram Encounter Details DateTypeDepartmentCare Team (Latest Contact Info)Xrtveesesej84/17/2025Telephone [facility] [address] [place] [address] Andreia Power Specialty Program (Orenitra) Social History Tobacco UseTypesPacks/DayYears UsedDateSmoking Tobacco: NeverSmokeless Tobacco: NeverAlcohol UseStandard Drinks/WeekCommentsNot Currently0 (1 standard drink = 0.6 oz pure alcohol)PHQ-2AnswerDate RecordedPatient Health Questionnaire-2 Score Humiliation, Afraid, Rape, and Kick questionnaireAnswerDate Recorded Within the last year, have you been afraid of your partner or ex-partner?No 09/15/2025Within the last year, have you been humiliated or emotionally abused in other ways by your partner or ex-partner?No09/15/2025Within the last year, have you been kicked, hit, slapped, or otherwise physically hurt by your partner or ex-partner?No09/15/2025Within the last year, have you been raped or forced to have any kind of sexual activity by your partner or ex-partner?No09/15/2025 CommentsNoSex and Gender InformationValueDate RecordedSex Assigned at ZocddFfebyh23/13/2025 3:07 PM EDTLegal QxoPgwgwa99/29/2022 10:34 PM EDTGender YhyigttxIbmtry70/13/2025 3:07 PM EDTSexual OrientationHeterosexual or Straight 06/23/2025 3:07 PM EDTdocumented as of this encounter Miscellaneous Notes * Telephone Encounter - Andreia Power - 10/19/2025 3:07 PM EST Patient APPROVED and currently receiving medication. * Telephone Encounter - Andreia Power - 09/27/2025 2:[address] Jc asked Aily[facility] and I [facility] Application was sent 09/15/2025 when patient came to clinic to meet with Ailyn. Received a fax (09/24) stating patient no longer wanted to receive treatment during a phone call. I called daughter Kasey, she explained mother's confusion and took the phone number to call the program. Received a voicemail while at lunch today from Sangeeta at [facility] wanting to verify medication. Called back and spoke to [facility] just to verify the titration was correct. Will reach out to patient for follow up in a few days. documented in this encounter Plan of Treatment DateTypeDepartmentCare Team (Latest Contact Info)Icckycvyyeu92/19/2025 2:00 PM ESTOffice Visit [facility] Heart at [facility] [address] [place] [address] Mitch Jc MD [address] [place] [address] documented as of this encounter Visit Diagnoses Not on filedocumented in this encounter Care Teams Team MemberRelationshipSpecialtyStart DateEnd Date Yoel Rizvi MD [address] [facility] [address] [address] PCP - Dgebfsy14/12/22documented as of this encounter
--- OUTSIDE RECORDS SUMMARY | 2025-10-26 14:01 | XMS_ITS | Encounter Summary ---
Author Organization [facility] Address [address] [place] [address] Care Team Providers Care Occupational Health And Safety Officer Name Role Phone Yoel Rizvi MD Primary Care Provider [phone] Reason for Visit * ReasonOnset DateCommentsMed Vpxtyw5010/26/2025 Encounter Details DateTypeDepartmentCare Team (Latest Contact Info)Pqagvqjmioq54/16/2025Refill [facility] Heart at [place] [address] [place] [address] Ericka Groevr MA Social History Tobacco UseTypesPacks/DayYears UsedDateSmoking Tobacco: NeverSmokeless [...] CommentsNoSex and Gender InformationValueDate RecordedSex Assigned at FiiopEvcopy60/13/2025 3:07 PM EDTLegal FxrZsdtsw98/29/2022 10:34 PM EDTGender UvczmcbyIwuqpb82/13/2025 3:07 PM EDTSexual OrientationHeterosexual or Straight 06/23/2025 3:07 PM EDTdocumented as of this encounter Plan of Treatment DateTypeDepartmentCare Team (Latest Contact Info)Hqofkhdhzjq93/19/2025 2:00 PM ESTOffice Visit [facility] Heart [facility] [address] [place] [address] Mitch Jc MD [address] [facility] [address] [facility] [place] [phone] documented as of this encounter Visit Diagnoses Not on filedocumented in this encounter Care Teams Team MemberRelationshipSpecialtyStart DateEnd Yoel Rizvi MD [address] [facility] [address] [address] PCP - Oajlqcm62/12/22documented as of this encounter
--- OUTSIDE RECORDS SUMMARY | 2025-10-26 14:01 | XMS_ITS | Clinical Summary ---
Author Organization [facility] Address [address] [place] [address] Care Team Providers Care Die Sinker Apprentice Name Role Phone Yoel Rizvi MD Primary Care Provider [phone] Allergies Active AllergyReactionsCriticalityNoted JrhuDxxqcguqRpojyxckyhuMcylf27/30/2025 SOB AND LEG EDEMA Medications MedicationSigDispense QuantityRefillsLast FilledStart DateEnd DateStatus albuterol 90 mcg/actuation inhaler Active ALPRAZolam (Xanax) 0.25 mg tablet take 1 tablet by mouth once daily if neededActive aspirin 81 mg chewable tablet Chew 1 tablet every day by oral route.Active cholecalciferol, vitamin D3, 50 mcg (2,000 unit) capsule Take 1 capsule every day by oral route for 90 days.Active citalopram (CeleXA) 40 mg tablet Take 1 tablet every day by oral route for 90 days.Active lansoprazole (Prevacid) [address] capsule Take 1 capsule every day by oral route for 90 days.Active pravastatin (Pravachol) 20 mg tablet Take 1 tablet every day by oral route for 90 days.Active allopurinol (Zyloprim) 100 mg tablet 1 (one) time each day at the same time.3Active sildenafil (Revatio) 20 mg tablet Indications:Pulmonary hypertension (CMS/HCC)TAKE ONE AND ONE-HALF TABLETS THREE TIMES A DAY (IN THE MORNING, AT NOON, AND AT BEDTIME) 405 tablet 5Active metoprolol succinate XL (Toprol-XL) 25 mg 24 hr tablet Indications:Essential hypertensionTAKE ONE-HALF TABLET BY MOUTH DAILY 45 tablet 5Active macitentan 10 mg tablet Indications:Pulmonary hypertension (CMS/HCC)Take 10 mg by mouth in the morning. 90 tablet /771888/6Active furosemide (Lasix) 40 mg tablet Indications:Chronic diastolic congestive heart failure (CMS/HCC)TAKE 1 TABLET BY MOUTH ONCE DAILY IN THE EVENING 90 tablet 3095Active Additional Information Patient taking differently:40 mg oral2 times daily, Reported on 09/15/2025 Eliquis 2.5 mg tablet Take 1 tablet by mouth Twice daily at 6am and 6pm.5Active cyanocobalamin (Vitamin B-12) 500 mcg tablet TAKE 1 TABLET BY MOUTH ONCE DAILY (OTC)H1tive ferrous sulfate 324 mg (65 mg iron) EC tablet Take 1 tablet by mouth Twice daily at 6am and 6pm.08/20/2025tive folic acid (Folvite) 1 mg tablet Take 1 tablet by mouth in the morning.08/20/2025tive omega 1-pak-qtk-fish oil (Fish OiL) 1,000 (120-180) mg capsule Take 1 capsule by mouth in the morning.Active potassium chloride CR (Klor-Con) 10 mEq ER tablet Indications:Edema, unspecified typeTAKE 1 TABLET BY MOUTH DAILY 90 tablet 5Active potassium chloride CR (Klor-Con) 10 mEq ER tablet Indications:Edema, unspecified typeTAKE 1 TABLET BY MOUTH DAILY 90 tablet Discontinued Active Problems ProblemNoted DateDiagnosed DateWHO group 1 pulmonary arterial hypertension 09/15/2025bnormal result of cardiovascular function study, unspecified /5818Hglrtlgaskdp40/02/202402/12/2023Other ill-defined heart hdtatrio01/12/20232449Whjs07/3Pulmonary hypertension 05/23/2021trial gxmekhhzjqog85/19/2013Essential xbvwovjxcbpy11/19/2013 Icanrasywoycqx08/19/2013Gastroesophageal reflux nixhdlk2212/30/2012Mitral valve ajmxmomn53/19/2013Renal failure pxsgmorq61/19/2013CHF (congestive heart failure) Chronic kidney disease Encounters DateTypeDepartmentCare BgadIdwoiujwizj82/16/2025[facility] Heart at [place] [address] [place] [address] Ericka Grover MA 10/08/2025[facility] [address] [facility] [place] [address] Mitch Jc MD Edema, unspecified type09/27/2025Telephone [facility] Cardiology Clinic [address] [place] [phone] Andreia Power Specialty Program (Orenitram)09/15/2025 2:00 PM ESTOffice Visit [facility] Heart [facility] [address] [place] [phone] Izabella Watts PA-C WHO group 1 pulmonary arterial hypertension (CMS/HCC) (Primary Dx); Mitral valve disorder; Mixed hyperlipidemia; Chronic kidney disease, stage 4 (severe) (CMS/HCC); Essential hypertension; NYHA Class III cardiovascular function (CMS/HCC); Medication monitoring encounter; BOURGEOIS (dyspnea on exertion)09/13/2025 9:00 AM ESTOffice Visit [facility] Heart [facility] [address] [place] [address] Mitch Jc MD Pulmonary hypertension (CMS/HCC) (Primary Dx); Chronic diastolic congestive heart failure (CMS/HCC); Longstanding persistent atrial fibrillation (CMS/HCC); Essential hypertension; Non-rheumatic mitral regurgitation; Nonrheumatic tricuspid valve regurgitation; Chronic kidney disease, stage 4 (severe) (CMS/HCC)08/31/2025 1:15 PM EDT - 08/31/2025 2:15 PM EDTSurgery [facility] Heart [facility] Vascular Lab [address] [place] [address] Mitch Jc MD Right heart cath [70876 (CPT??)]08/31/2025 11:00 AM EDT - 08/31/2025 2:21 PM EDT Hospital Encounter [facility] Heart [facility] Vascular Lab [address] [place] [address] Mitch Jc MD Pulmonary hypertension (CMS/HCC) Discharge Disposition: Home or Self Care (01)08/30/20256146Ndrrau71/17/2025 1:00 PM EDTOffice Visit [facility] [address] [place] [facility] [place] [address] Mitch Jc MD Pulmonary hypertension (CMS/HCC) (Primary Dx); Chronic diastolic congestive heart failure (CMS/HCC); Longstanding persistent atrial fibrillation (CMS/HCC); Essential hypertension; Non-rheumatic mitral regurgitation; Nonrheumatic tricuspid valve regurgitation; Chronic kidney disease, stage 4 (severe) (CMS/HCC)08/21/2025Refill [facility] [address] [place] [facility] [place] [address] Mitch Jc MD Chronic diastolic congestive heart failure (CMS/HCC)08/04/2025Telephone [facility] [address] [place] [place] [address] Mariola Pascual MA 08/03/2025Orders Only [facility] [address] [place] [facility] [place] [address] Ericka Grover MA Longstanding persistent atrial fibrillation (CMS/HCC) (Primary Dx)from Last 3 Months Family History Medical HistoryRelationNameCommentsCoronary artery diseaseFatherHypertension FatherHypertensionMotherRelationNameStatusCommentsFatherDeceasedMotherDeceased Social History Tobacco UseTypesPacks/DayYears UsedDateSmoking Tobacco: NeverSmokeless Tobacco: Never Tobacco Cessation:Counseling Given: Not Answered Alcohol UseStandard Drinks/WeekCommentsNot Currently0 (1 standard drink = 0.6 oz pure alcohol)PHQ-2AnswerDate RecordedPatient Health Questionnaire-2 Score0 09/15/2025Humiliation, Afraid, Rape, and Kick questionnaireAnswerDate Recorded Within [...] CommentsNoSex and Gender InformationValueDate RecordedSex Assigned at HavpuEdbjnc54/13/2025 3:07 PM EDTLegal WmbLxyhrc70/29/2022 10:34 PM EDTGender PfwwdnljNecwsr61/13/2025 3:07 PM EDTSexual OrientationHeterosexual or Straight 06/23/2025 3:07 PM EDT Last Filed Vital Signs Vital SignReadingTime TakenCommentsBlood Nklgbsxv059/5409/15/2025 2:33 PM EST Wrbjv207809/15/2025 2:33 PM ESTTemperature--Respiratory Jlov8685 2:15 PM EDTOxygen Itrjkjcoln86%09/13/2025 9:19 AM ESTon 2L Y9Lszcjwz Oxygen Concentration--Hgwjjt48.9 kg (132 lb)09/15/2025 2:33 PM KTJXaltkh408.9 cm (4' 11 )09/15/2025 2:33 PM ESTBody Mass Index26.6609/15/2025 2:33 PM EST Plan of Treatment DateTypeDepartmentCare Team (Latest Contact Info)Xmdvqlbltle81/19/2025 2:00 PM ESTOffice Visit [facility] Heart at [facility] [address] [place] [address] Mitch Jc MD [address] [facility] [address] [facility] [address] Health MaintenanceDue DateLast DoneCommentsMedicare Annual Wellness (AWV) 8Adult Hkhdwil2805/11/1960Zoster Vaccines (1 of 2)1988Pneumococcal Vaccine: 50+ Years (2 of 2 - PPSV23, PCV20, or PCV21)COVID- 19 Vaccine ( season)/12/2023, 01/02/2024, 09/18/2022, Additional history existsDepression Xbnxzcpeu96Fall Risk Lelesntse00Influenza EfztmwuAgqgatrtz48/29/2025, 08/12/2024, 01/02/2024, Additional history existsHIB VaccinesAged OutNo longer eligible based on patient's age to complete this topicHPV VaccinesAged OutNo longer eligible based on patient's age to complete this topicIPV VaccinesAged OutNo longer eligible based on patient's age to complete this topicMeningococcal B VaccineAged OutNo longer eligible based on patient's age to complete this topic Meningococcal VaccineAged OutNo longer eligible based on patient's age to complete this topicRotavirus VaccinesAged OutNo longer eligible based on patient's age to complete this topic Procedures Procedure NamePriorityDate/TimeAssociated DiagnosisCommentsRIGHT HEART CATH Wcwbdiz4708/31/2025 1:41 PM EDT Pulmonary hypertension (CMS/HCC) %QGG9Vpmjmcx69/21/2025 1:38 PM EDT from Last 3 Months Results * RIGHT HEART CATH (08/31/2025 1:41 PM EDT)Anatomical RegionLateralityModality OtherSpecimen (Source)Anatomical Location / LateralityCollection Method / VolumeCollection TimeReceived Time Narrative 08/31/2025 1:47 PM EDT PROCEDURE PHYSICIAN: Mitch Jc MD . Indications: Inez Kay is a 85 y.o. female with pulmonary arterial hypertension currently maintained on sildenafil and macitentan. ??Recent echocardiogram showed severely elevated right-sided pressures. ??She was referred for right heart catheterization. Assistants: None. Procedure Performed: Right heart catheterization. Access into the right internal jugular vein under ultrasound guidance. Methods: ??Procedure was explained to the patient with risks and benefits; she signed informed consent. ??she was brought to the blender laborer in a fasting state. The right neck area was prepped and draped in usual fashion. Micropuncture technique was used for access under ultrasound guidance into the right internal jugular vein. ??A 6-Russian x 11 cm sheath was placed. ?? A 6-Russian Hernández catheter was used for right heart catheterization and measurement of pressures and calculation of cardiac output using the estimated Nehemias method. ??Hernández catheter was removed. Hemostasis was achieved by manual compression in the internal jugular vein. ??she tolerated the procedure well and was transferred back to the cardiovascular recovery area. Hemodynamic Data: ?? RA: 9 RV: 72/6, 23 PA: 67/19 (42) PCWP: 14 CO: 5.22 CI: 3.32 O2 Sat: PA sat: 59%, AO sat: 94% BP: 114/51 (70) TP PVR: 5.4 Wood units SVR: 934 Metric units Impression/Findings: Mild elevation of left filling pressures. Mild elevation of right filling pressures. Severe pulmonary hypertension. Normal cardiac output and cardiac index. Controlled systemic hypertension. 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 Plan: The patient's PAH therapy will be intensified likely to include a prostacyclin agonist such as treprostinil. Follow up in Cardiology Clinic. Mitch Jc MD Study Details Pulmonary hypertension (CMS/HCC) [I27.20] Authorizing ProviderResult TypeResult StatusMitch Jc [facility] [place]ARDIAC CATH PROCEDURESFinal Result * (ABNORMAL) %HbO2 (08/31/2025 1:38 PM EDT)ComponentValueRef RangeTest Method Analysis TimePerformed AtPathologist XwzuwpnfxJ7Fv%58.7(L)90.0 - 95.0 % 08/31/2025 1:38 PM EDTUNM [facility] ([place])Specimen (Source)Anatomical Location / LateralityCollection Method / VolumeCollection TimeReceived Time BloodVenous blood specimen / Asdojgs9508/31/2025 1:38 PM EDT1 1:38 PM EDT Narrative Authorizing ProviderResult TypeResult StatusMitch FELTON POINT OF CARE TEST DOCKED DEVICE UNSOLICITED RESULTSFinal ResultPerforming Organization AddressCity/State/ZIP CodePhone Number [facility] [address] [place] [address] from Last 3 Months Insurance Care Teams Team MemberRelationshipSpecialtyStart DateEnd Date Yoel Rizvi MD [address] [facility] [address] [address] PCP - Wlotjgv53/12/22
[2025-10-26 14:25] LABS: Hematocrit 28.9 % (36.0-48.0); Hemoglobin 9.3 g/dL (12.0-16.0); Immature Granulocytes Abs Auto 0.02 10^3/uL (0.00-0.03); Immature Granulocytes Pct Auto 0.4 % (0.0-0.5); Lymphocytes Absolute Auto 0.9 10^3/uL (1.2-3.8); Mean Corpuscular HGB Conc 32.2 g/dL (29.9-35.2); Mean Corpuscular Hemoglobin 30.6 pg (26.7-34.0); Mean Corpuscular Volume 95.1 fL (81.0-99.0); Platelet Count 129 10^3/uL (150-450); Red Blood Count 3.04 10^6/uL (4.20-5.40); White Blood Count 5.2 10^3/uL (4.0-11.0)
[2025-10-26 15:26] LABS: Iron 70.0 ug/dL (50.0-170.0)
[2025-10-26 15:46] LABS: Ferritin 584.0 ng/mL (8.0-252.0)
== END 2025-10-26 13:59 | disposition home or self-care (01) ==
PROVIDERS: PCP Family Medicine; Visit Provider Family Medicine
DX: D50.9 Iron deficiency anemia, unspecified (principal)
CPT/HCPCS: 36415; 82728; 83540; 85025